=== PATIENT | female | born 1935 | race Caucasian/White ===

== ENCOUNTER 2016-06-10 09:20 | Outpatient (RCR) | payer MEDICARE ==
--- OUTSIDE RECORDS SUMMARY | 2016-04-29 15:01 | XMS REPORT | Continuity of Care Document ---
Author Author [facility] Organization [facility] Address Unknown Phone Unavailable Care Team Providers Care Book Editor Name Role Phone DESIREE HAMM MD PCP Insurance Providers Payer Name Policy Number Subscriber Name Relationship Wps Medicare [id number] Rishabh Garcia 18 Self / Same As Patient [facility] [id number] Rishabh Garcia 18 Self / Same As Patient Advance Directives Directive Response Recorded Date/Time Advance Directives No 09/09/14 9:37am Health Care Power of School Business Administrator No 09/09/14 9:37am Organ Donor No 09/09/14 9:37am Problems No known problems or medical conditions. Medications Medication Dose Route Sig Days/Qty Instructions Order Date Discontinued Date Status Terazosin HCl 5 Mg PO DAILY 12/24/10 Active Pioglitazone HCl 1 Tab PO DAILY 12/24/10 12/24/10 Discontinued Hydrochlorothiazide 25 Mg PO DAILY 12/24/10 Active Levothyroxine Sodium 100 Mcg PO DAILY 12/24/10 Active Pravastatin Sodium 20 Mg PO BEDTIME 12/24/10 10/10/13 Discontinued Glipizide (Glucotrol) 1 Each PO DAILY 12/24/10 08/31/13 Discontinued Aspirin 81 Mg PO DAILY 12/25/10 08/31/13 Discontinued Carvedilol (Coreg) 6.22 Mg PO TWICE A DAY 12/25/10 08/31/13 Discontinued Losartan Potassium 100 Mg PO DAILY 12/25/10 09/09/14 Discontinued Insulin Glargine 30 Units SQ BEDTIME 12/25/10 08/31/13 Discontinued Hum Insulin Nph/Reg Insulin Hm 20 Units SQ DAILY For daily 08/31/13 Active Carvedilol (Coreg) 25 Mg PO TWICE A DAY 08/31/13 Active Insulin Glargine 20 Units SQ BEDTIME 08/31/13 Active Acetaminophen/Hydrocodone Bitart 1-2 Tab PO EVERY 4HRS PRN PAIN 30 Qty 09/18/13 Active Pravastatin Sodium 20 Mg PO BEDTIME 10/10/13 Active Social History Social History Problem Response Recorded Date/Time Recent Foreign Travel N [place] 08/14/2014 9:28am Hospital Discharge Instructions No hospital discharge instructions. Plan of Care No plan of care. Functional Status No functional status results. Allergies, Adverse Reactions, Alerts Allergen Type Severity Reaction Status Last Updated No Known Drug Allergies Active 12/24/10 Immunizations Name Given Type Date of Pneumonia Vaccine 09/09/09 Historical Date of Influenza Vaccine 04/24/13 Historical Vital Signs No known vital signs results. Results Laboratory Results Test Name Result Units Flags Reference Collection Date/Time Result Date/ Time Comments White Blood Count 4.6 10^3/uL 4.3-11.0 08/14/2014 9:45am 08/14/2014 10: 03am Red Blood Count 3.27 10^6/uL L 4.35-5.85 08/14/2014 9:45am 08/14/2014 10: 03am Hemoglobin 10.1 G/DL L 11.5-16.0 08/14/2014 9:45am 08/14/2014 10:03am Hematocrit 32 % L 35-52 08/14/2014 9:45am 08/14/2014 10:03am Mean Corpuscular Volume 98 FL 80-99 08/14/2014 9:45am 08/14/2014 10: 03am Mean Corpuscular Hemoglobin 31 PG 25-34 08/14/2014 9:45am 08/14/2014 10 :03am Mean Corpuscular Hemoglobin Concent 32 G/DL 32-36 08/14/2014 9:45am 10:03am Red Cell Distribution Width 13.5 % 10.0-14.5 08/14/2014 9:45am 2014 10:03am Platelet Count 197 10^3/uL 130-400 08/14/2014 9:4508/14/2014 10: 03am Mean Platelet Volume 9.2 FL 7.4-10.4 08/14/2014 9:4508/14/2014 10: 03am Neutrophils (%) (Auto) 44 % 42-75 08/14/2014 9:4508/14/2014 10:03am Lymphocytes (%) (Auto) 39 % 12-44 08/14/2014 9:45am 08/14/2014 10:03am Monocytes (%) (Auto) 12 % 0-12 08/14/2014 9:4508/14/2014 10:03am Eosinophils (%) (Auto) 5 % 0-10 08/14/2014 9:4508/14/2014 10:03am Basophils (%) (Auto) 0 % 0-10 08/14/2014 9:4508/14/2014 10:03am Neutrophils # (Auto) 2.0 X 10^3 1.8-7.8 08/14/2014 9:4508/14/2014 10 :03am Lymphocytes # (Auto) 1.8 X 10^3 1.0-4.0 08/14/2014 9:4508/14/2014 10 :03am Monocytes # (Auto) 0.6 X 10^3 0.0-1.0 08/14/2014 9:4508/14/2014 10: 03am Eosinophils # (Auto) 0.2 10^3/uL 0.0-0.3 08/14/2014 9:4508/14/2014 10:03am Basophils # (Auto) 0.0 10^3/uL 0.0-0.1 08/14/2014 9:4508/14/2014 10: 03am Sodium Level 134 MMOL/L L 135-145 08/14/2014 9:4508/14/2014 10:31am Potassium Level 4.0 MMOL/L 3.6-5.0 08/14/2014 9:4508/14/2014 10: 31am Chloride Level 104 MMOL/L 98-107 08/14/2014 9:4508/14/2014 10:31am Carbon Dioxide Level 23 MMOL/L 21-32 08/14/2014 9:4508/14/2014 10: 31am Blood Urea Nitrogen 20 MG/DL H 7-18 08/14/2014 9:45am 08/14/2014 10:31am Creatinine 0.92 MG/DL 0.60-1.30 08/14/2014 9:45am 08/14/2014 10:31am BUN/Creatinine Ratio 22 08/14/2014 9:45am 08/14/2014 10:31am Estimat Glomerular Filtration Rate 59 08/14/2014 9:45am 08/14/2014 10:31am GFR INTERPRETIVE DATA UNITS FOR ESTIMATED GFR (eGFR): mL/min/1.73 M2 REFERENCE RANGE FOR ESTIMATED GFR (eGFR) eGFR NORMAL eGFR >60 MODERATELY DECREASED eGFR 30-59 SEVERLY DECREASED eGFR 15-29 KIDNEY FAILURE <15 (OR DIALYSIS) Glucose Level 290 MG/DL H 70-105 08/14/2014 9:45am 08/14/2014 10:31am Calcium Level 9.5 MG/DL 8.5-10.1 08/14/2014 9:45am 08/14/2014 10:31am Total Bilirubin 0.6 MG/DL 0.1-1.0 08/14/2014 9:45am 08/14/2014 10:31am Alkaline Phosphatase 73 U/L 40-136 08/14/2014 9:45am 08/14/2014 10: 31am Aspartate Amino Transf (AST/SGOT) 33 U/L 5-34 08/14/2014 9:45am 2014 10:31am Alanine Aminotransferase (ALT/SGPT) 17 U/L 0-55 08/14/2014 9:45am 08/14 10:31am Total Protein 6.6 G/DL 6.4-8.2 08/14/2014 9:45am 08/14/2014 10:31am Albumin 3.6 G/DL 3.2-4.5 08/14/2014 9:45am 08/14/2014 10:31am Procedures No known history of procedures. Encounters Encounter Location Date/Time Discharged Recurring Via [facility] 09/24/14 9:54am
[2016-04-29 15:24] LABS: BASOPHILS % (AUTO) 0 % (0-10); EOSINOPHILS # (AUTO) 0.1 10^3/uL (0.0-0.3); EOSINOPHILS % (AUTO) 2 % (0-10); LYMPHOCYTES # (AUTO) 2.2 X 10^3 (1.0-4.0); LYMPHOCYTES % (AUTO) 34 % (12-44); MEAN CORPUSCULAR HEMOGLOBIN 29 PG (25-34); MEAN CORPUSCULAR HGB CONC 33 G/DL (32-36); MEAN CORPUSCULAR VOLUME 89 FL (80-99); MEAN PLATELET VOLUME 10.3 FL (7.4-10.4); MONOCYTES # (AUTO) 0.6 X 10^3 (0.0-1.0); MONOCYTES % (AUTO) 10 % (0-12); NEUTROPHILS # (AUTO) 3.5 X 10^3 (1.8-7.8); NEUTROPHILS % (AUTO) 54 % (42-75); PLATELET COUNT 195 10^3/uL (130-400); RED BLOOD COUNT 3.84 10^6/uL (4.35-5.85); RED CELL DISTRIBUTION WIDTH 13.7 % (10.0-14.5); WHITE BLOOD COUNT 6.4 10^3/uL (4.3-11.0)
[2016-04-29 15:58] LABS: ALBUMIN 3.9 G/DL (3.2-4.5); BILIRUBIN,TOTAL 0.6 MG/DL (0.1-1.0); CALCIUM 9.1 MG/DL (8.5-10.1); CREATININE SERUM 1.04 MG/DL (0.60-1.30); POTASSIUM 4.2 MMOL/L (3.6-5.0); TOTAL PROTEIN 6.5 G/DL (6.4-8.2)
[~2016-06-10 09:20] MED LIST: ACTOS15 MG PO; ASP81CT PO; ASPI-586 PO; CAPT100T2 PO; CARV25TA PO; CARV6.252 PO; DOCU100T7 PO; FERR-84 PO; GLIP10TA13 PO; HCT25T PO; HUM100VI SQ; HYDR-3714 PO; INSU100C4 SQ; INSU100V6 SQ; LEVO125T6 PO; LOSA100T16 PO; LOSA100T28 PO; LVT.1T PO; METF-380 PO; MTP100TCR PO; PRAV40TA PO; PRV20T PO; TERA5CAP10 PO
[2016-11-03] MEDS ORDERED: TRAM50TA2 PO (09:18)
== END 2016-07-28 | disposition home or self-care (01) ==
LOC: ONC 09:20
PROVIDERS: ATTEND Internal Medicine Hematology & Oncology
DX: C18.2 Malignant neoplasm of ascending colon (principal); E11.22 Type 2 diabetes mellitus with diabetic chronic kidney disease; N18.3 Chronic kidney disease, stage 3 (moderate); E03.9 Hypothyroidism, unspecified; Z92.21 Personal history of antineoplastic chemotherapy; Z79.4 Long term (current) use of insulin; Z79.899 Other long term (current) drug therapy; Z45.2 Encounter for adjustment and management of vascular access device
CPT/HCPCS: 36591; 80053; 82378; 85025; 96523; 99213

== ENCOUNTER 2016-10-21 09:39 | Outpatient (RCR) | payer MEDICARE ==
--- OUTSIDE RECORDS SUMMARY | 2016-07-29 11:08 | XMS REPORT | Continuity of Care Document ---
Author Author [facility] Organization [facility] Address Unknown Phone Unavailable Care Team Providers Care Food And Nutrition Professor Name Role Phone DESIREE HAMM MD PCP Insurance Providers Payer Name Policy Number Subscriber Name Relationship Wps Medicare [id number] Rishabh Garcia 18 Self / Same As Patient [facility] [id number] Rishabh Garcia 18 Self / Same As Patient Advance Directives Directive Response Recorded Date/Time Advance Directives No 09/09/14 9:37am Health Care Power of Child Development Consultant No 09/09/14 9:37am Organ Donor No 09/09/14 [...] Encounters Encounter Location Date/Time Discharged Recurring Via [facility] 09/24/14 9:54am
[2016-07-29 11:31] LABS: BASOPHILS % (AUTO) 0 % (0-10); EOSINOPHILS # (AUTO) 0.2 10^3/uL (0.0-0.3); EOSINOPHILS % (AUTO) 3 % (0-10); LYMPHOCYTES # (AUTO) 2.1 X 10^3 (1.0-4.0); LYMPHOCYTES % (AUTO) 46 % (12-44); MEAN CORPUSCULAR HEMOGLOBIN 29 PG (25-34); MEAN CORPUSCULAR HGB CONC 33 G/DL (32-36); MEAN CORPUSCULAR VOLUME 90 FL (80-99); MEAN PLATELET VOLUME 10.3 FL (7.4-10.4); MONOCYTES # (AUTO) 0.5 X 10^3 (0.0-1.0); MONOCYTES % (AUTO) 10 % (0-12); NEUTROPHILS # (AUTO) 1.9 X 10^3 (1.8-7.8); NEUTROPHILS % (AUTO) 41 % (42-75); PLATELET COUNT 176 10^3/uL (130-400); RED BLOOD COUNT 3.81 10^6/uL (4.35-5.85); RED CELL DISTRIBUTION WIDTH 14.1 % (10.0-14.5); WHITE BLOOD COUNT 4.7 10^3/uL (4.3-11.0)
[2016-07-29 11:59] LABS: ALBUMIN 3.8 G/DL (3.2-4.5); BILIRUBIN,TOTAL 0.5 MG/DL (0.1-1.0); CREATININE SERUM 0.92 MG/DL (0.60-1.30); TOTAL PROTEIN 6.5 G/DL (6.4-8.2)
[2016-07-29 12:37] LABS: BILIRUBIN,URINE NEGATIVE (NEGATIVE); KETONES,URINE NEGATIVE (NEGATIVE); LEUKOCYTE ESTERASE ,URINE 1+ (NEGATIVE); NITRITE,URINE NEGATIVE (NEGATIVE); PH,URINE 5 (5-9); PROTEIN,URINE 1+ (NEGATIVE); UROBILINOGEN,URINE NORMAL (NORMAL)
[2016-07-29 13:00] LABS: HYALINE CASTS, URINE 0-2 /LPF
[2016-07-30 06:58] LABS: HOMOCYSTEINE 16.1 umol/L (<=10.3)
[2016-08-01 13:38] LABS: METHYLMALONIC ACID 0.23 umol/L (0.00-0.40)
[2016-10-21 10:04] LABS: BASOPHILS % (AUTO) 0 % (0-10); EOSINOPHILS # (AUTO) 0.2 10^3/uL (0.0-0.3); EOSINOPHILS % (AUTO) 4 % (0-10); LYMPHOCYTES % (AUTO) 40 % (12-44); MEAN CORPUSCULAR HEMOGLOBIN 29 PG (25-34); MEAN CORPUSCULAR HGB CONC 32 G/DL (32-36); MEAN CORPUSCULAR VOLUME 90 FL (80-99); MEAN PLATELET VOLUME 10.6 FL (7.4-10.4); MONOCYTES # (AUTO) 0.6 X 10^3 (0.0-1.0); MONOCYTES % (AUTO) 12 % (0-12); NEUTROPHILS # (AUTO) 2.2 X 10^3 (1.8-7.8); NEUTROPHILS % (AUTO) 44 % (42-75); PLATELET COUNT 176 10^3/uL (130-400); RED BLOOD COUNT 4.09 10^6/uL (4.35-5.85)
[2016-10-21 11:13] LABS: ALBUMIN 3.6 G/DL (3.2-4.5); BILIRUBIN,TOTAL 0.5 MG/DL (0.1-1.0); CALCIUM 8.7 MG/DL (8.5-10.1); CREATININE SERUM 1.25 MG/DL (0.60-1.30); POTASSIUM 4.1 MMOL/L (3.6-5.0); TOTAL PROTEIN 6.4 G/DL (6.4-8.2)
[2016-10-27] MEDS ORDERED: INSU100I10 SQ (11:49)
[2016-11-03] MEDS ORDERED: TRAM50TA2 PO (09:18)
== END 2016-10-27 | disposition home or self-care (01) ==
LOC: ONC 09:39
PROVIDERS: ATTEND Internal Medicine Hematology & Oncology
DX: C18.2 Malignant neoplasm of ascending colon (principal); E11.22 Type 2 diabetes mellitus with diabetic chronic kidney disease; N18.3 Chronic kidney disease, stage 3 (moderate); E03.9 Hypothyroidism, unspecified; R82.99 Other abnormal findings in urine; Z92.21 Personal history of antineoplastic chemotherapy; Z79.4 Long term (current) use of insulin; Z79.899 Other long term (current) drug therapy; Z45.2 Encounter for adjustment and management of vascular access device
CPT/HCPCS: 36591; 80053; 81000; 82378; 82728; 83090; 83921; 85025; 87088; 96523; 99213

== ENCOUNTER 2016-10-27 05:33 | Outpatient (CLI) | payer MEDICARE ==
[~2016-10-27] VITALS: Ht 149.9 cm; Wt 94.3 kg
[2016-10-27] MEDS ORDERED: INSU100I10 SQ (11:49)
== END 2016-10-27 11:55 ==
LOC: PREOP 05:33
PROVIDERS: ATTEND Surgery
DX: Z01.818 Encounter for other preprocedural examination (principal); C18.2 Malignant neoplasm of ascending colon

== ENCOUNTER → 2016-10-29 | Outpatient (CLI) | payer MEDICARE ==
[~2016-10-29] MED LIST changes: +INSU100I10 SQ; +TRAM50TA2 PO
--- NOTE | 2016-11-01 11:28 | Diagnostic Imaging Report ---
EXAMINATION: Bilateral screening mammogram with a Computer Aided Detection (CAD) system. INDICATION: Screening. PERSONAL HISTORY: No current complaints stated on the questionnaire. COMPARISON: 10/31/2015. FINDINGS: The breasts are composed of heterogeneously dense parenchyma which may decrease mammographic sensitivity. There is no mass, architectural distortion, or suspicious cluster of calcifications. There is a 6 mm asymmetry seen in the lateral aspect on the right CC projection with no definitive correlate on the right MLO view. The left breast appears unchanged. IMPRESSION: Focal compression views and ultrasound evaluation for a lateral right breast asymmetry would be recommended. ACR BI-RADS Category 0: Incomplete. (Needs additional imaging evaluation). Result letter will be mailed to the patient. Note: At least 10% of breast cancer is not imaged by mammography. Dictated by: Dictated on workstation # [id number]
== END ==
LOC: RAD 13:30
PROVIDERS: ATTEND Nurse Practitioner Family
DX: Z12.31 Encounter for screening mammogram for malignant neoplasm of breast (principal)
CPT/HCPCS: 77067

== ENCOUNTER 2016-11-03 05:56 | Day surgery (SDC) | payer MEDICARE ==
[~2016-11-03] VITALS: Ht 149.9 cm; Wt 94.3 kg
[~2016-11-03 05:56] MED LIST changes: -TRAM50TA2 PO
[2016-11-03] MEDS ORDERED: LACTATED RINGERS 1,000 ML IV PRN (06:10)
[2016-11-03 06:15] VITALS: BP 183/70
[2016-11-03] MEDS ORDERED: PROPOFOL INJECTION 50 ML IV ONE (06:47)
[2016-11-03] MEDS ORDERED: fentaNYL INJECTION 100 MCG/2 ML AMP ONE (06:48)
[2016-11-03] MEDS ORDERED: BUP/EPI 0.25% 1:200,000 (MARCAINE) 30 ML VIAL ONE (06:59)
[2016-11-03] MEDS ORDERED: ceFAZolin 2 GM/50 ML NS 50 ML IV ONE (07:00)
[2016-11-03] MEDS ORDERED: ceFAZolin 2 GM/NS 50 ML IV ONE (07:15)
--- NOTE | 2016-11-03 08:30 | Progress Note-Pre Operative ---
Pre-Operative Progress Note H&P Reviewed The H&P was reviewed, patient examined and no changes noted. Date H&P Reviewed: Nov 03, 2016 Time H&P Reviewed: 08:30 Pre-Operative Diagnosis: Treated colon LOUIS Black MD Nov 03, 2016 8:30 am
--- NOTE | 2016-11-03 09:17 | Progress Note-Post Operative ---
Post-Operative Progess Note Surgeon (s)/Stoner Out (s) Surgeon LOUIS SEPULVEDA MD Stoner Out: Jackie Davidson Pre-Operative Diagnosis Treated colon cance Post-Operative Diagnosis Same Post-Op Procedure Note Date of Procedure: Nov 03, 2016 Name of Procedure Performed: Removal of infusaport Description of the Procedure: See op note Findings of the Procedure Routine post-op changes Anesthesia Type MAC/Local Estimated blood loss (mL): Minimal Specimen(s) collected/removed None LOUIS SEPULVEDA MD Nov 03, 2016 9:17 am
[2016-11-03] MEDS ORDERED: TRAM50TA2 PO (09:18)
--- NOTE | 2016-11-03 09:19 | Discharge Inst-Simple/Standard ---
Discharge Inst-Standard Discharge Medications New, Converted or Re-Newed RX: RX on Chart Patient Instructions/Follow Up Plan of Care/Instructions/FU: Dressing off in 48 hours Activity as Tolerated: Yes Discharge Diet: ADA Diet LOUIS SEPULVEDA MD Nov 03, 2016 9:19 am
[2016-11-03 09:40] VITALS: BP 131/61
[2016-11-03 10:10] VITALS: BP 148/64
--- NOTE | 2016-11-03 13:15 | PROCEDURE REPORT ---
PROCEDURE PHYSICIAN: LOUIS SEPULVEDA DATE OF PROCEDURE: 11/03/2016 PREOPERATIVE DIAGNOSIS: Treated colon cancer. POSTOPERATIVE DIAGNOSIS: Treated colon cancer. OPERATION: Removal of Gvchje-t-Vfyn. SURGEON: Bright ANESTHESIA: General anesthesia. BLOOD LOSS: Minimal. FLUIDS: 300 mL crystalloids. TYPE OF WOUND: Type I (clean wound). INDICATION FOR THE PROCEDURE: This lady has completed adjuvant therapy after an adequate discussion with her oncologist, she requested removal of Xyhkgb-p-Ysnc. I agreed to do so. Informed consent was obtained after reviewing the procedure in detail. DESCRIPTION OF PROCEDURE: She was placed supine on the operative table and our DIRECT MAIL MARKETER administered sedation, monitoring her vital signs. A gram of Ancef was administered intravenously as prophylaxis against wound infection. Right infraclavicular fossa was prepared and draped in the usual sterile manner. Local anesthesia was achieved using quarter percent Marcaine with epinephrine. A secondary incision was made along the previous scar and the Bpwmwf-g-Wqht removed without risking air embolism. The incision was then closed using 3-0 Vicryl for the subcutaneous tissue and 4-0 Vicryl for skin, in a subcuticular fashion. She tolerated the procedure well and was taken to the nursing area in a stable condition. [place], sponges, and instruments the end of the operation. Job ID: [id number] Dictated Date: 11/03/2016 09:29:10 Drilling Manager Date: 11/03/2016 13:12:12 / edi FRAZIER
== END 2016-11-03 10:59 | disposition home or self-care (01) ==
LOC: SDC 05:56
PROVIDERS: ATTEND Surgery
DX: C18.2 Malignant neoplasm of ascending colon (principal); E11.9 Type 2 diabetes mellitus without complications; Z11.2 Encounter for screening for other bacterial diseases
CPT/HCPCS: 82962; 87081

== ENCOUNTER → 2016-11-29 | Outpatient (CLI) | payer MEDICARE ==
[~2016-11-29] MED LIST changes: +TRAM50TA2 PO
--- NOTE | 2016-11-29 19:31 | Diagnostic Imaging Report ---
Right breast diagnostic mammogram. INDICATION: Asymmetry along the outer aspect of the right breast. The current study was also evaluated with a Computer Aided Detection (CAD) system. FINDINGS: There is an asymmetry seen with focal compression view demonstrating persistent asymmetry in the outer aspect of the right breast although it appears slightly less prominent. There is dense background parenchyma which may result in summation artifact resulting in the asymmetry. IMPRESSION: Persistent less prominent asymmetry along the outer aspect of the right breast. Ultrasound evaluation pending. ACR BI-RADS Category 0: Incomplete. (Needs additional imaging evaluation). Result letter will be mailed to the patient. Note: At least 10% of breast cancer is not imaged by mammography. Dictated by: Dictated on workstation # [id number]
--- NOTE | 2016-11-29 20:15 | Diagnostic Imaging Report ---
EXAM: Right breast ultrasound. INDICATION: Right breast latera asymmetry. FINDINGS: There is a benign-appearing lymph node in the outer aspect of the right breast at 10 o'clock zone, 10 cm cm from the nipple measuring 0.7 cm in size. It is uncertain if this represents the asymmetry. No other lesion is identified in the outer aspect of the right breast retroareolar region. IMPRESSION: Benign-appearing intramammary lymph node at 10 o'clock zone questionably correlates with the mammographic abnormality. A 6 month followup right breast mammogram to insure stability or resolution of the asymmetry is recommended. BI-RADS 3. ACR BI-RADS Category 3: Probably benign findings. Result letter will be mailed to the patient. Note: At least 10% of breast cancer is not imaged by mammography. Dictated by: Dictated on workstation # [id number]
== END ==
LOC: RAD 09:27
PROVIDERS: ATTEND Nurse Practitioner Family
DX: R92.8 Other abnormal and inconclusive findings on diagnostic imaging of breast (principal)

== ENCOUNTER 2017-02-22 14:14 | Emergency (ER) | payer MEDICARE ==
[~2017-02-22] VITALS: Ht 149.9 cm; Wt 94.3 kg
[2017-02-22] MEDS ORDERED: ACETAMINOPHEN 500 MG TAB (TYLENOL) PO STA (14:32)
--- NOTE | 2017-02-22 14:47 | ED Lower Extremity ---
General Chief Complaint: Lower Extremity Stated Complaint: FALL,RT ANKLE AND KNEE INJ Nursing Triage Note: PT REPORTS FALLING AT HOME LAST NOC AND IS NOW C/O R KNEE AND R ANKLE PAIN. Nursing Sepsis Screen: No Definite Risk Source: patient Exam Limitations: no limitations History of Present Illness Time seen by provider: 14:30 Initial Comments Here with report of right ankle and right knee pain. Pain to the ankle is on the medial aspect of the knee is surrounding the knee. She apparently fell last night for some reason doesn't know. She did take a couple of Tylenol after which did help her pain for a little bit but the pain was worse while laying in bed. She has difficulty with standing. When she fell, she grabbed a table to try to stop her fall which also fell. She denies hitting her head. She denies other injury to her hip, back or anywhere else. Onset: yesterday Severity: moderate Pain/Injury Location: right knee, right ankle Method of Injury: fell Modifying Factors: Improves With Immobilization, Worse With Movement Allergies and Home Medications Allergies Coded Allergies: No Known Drug Allergies (Unverified , 12/24/10) Home Medications Aspirin 81 Mg Tablet.dr, 81 MG PO DAILY, (Reported) Carvedilol 25 Mg Tablet, 25 MG PO BID, (Reported) Docusate Sodium 100 Mg Tablet, 100 MG PO every other day, (Reported) Ferrous Sulfate 325 Mg Tablet, 325 MG PO DAILY, (Reported) Hum Insulin Nph/Reg Insulin Hm 10 Ml Vial, 18 UNITS SQ DAILY, (Reported) Insulin Glargine,Hum.rec.anlog 100 Unit/1 Ml Insuln.pen, 30 UNIT SQ HS, ( Reported) Levothyroxine Sodium 125 Mcg Tablet, 125 MCG PO DAILY, (Reported) Losartan Potassium 100 Mg Tablet, 100 MG PO DAILY, (Reported) Terazosin Hcl 5 Mg Capsule, 5 MG PO DAILY, (Reported) Tramadol HCl 50 Mg Tablet, 50 MG PO Q12H PRN for PAIN, #20 Prescribed by: LOUIS SEPULVEDA on 11/03/16 0918 Constitutional: see HPI, No chills, No fever Respiratory: no symptoms reported Cardiovascular: no symptoms reported Musculoskeletal: see HPI, joint pain, joint swelling, muscle pain Skin: change in color, No lesions Psychiatric/Neurological: No Symptoms Reported Past Hlirpcb-Tqnuxe-Frhifv Hx Patient Social History Alcohol Use: Denies Use Recreational Drug Use: No Smoking Status: Never a Smoker 2nd Hand Smoke Exposure: No Recent Foreign Travel: No Contact w/Someone Who Travel: No Recent Infectious Disease Expo: No Recent Hopitalizations: No Immunizations Up To Date Date of Pneumonia Vaccine: Sep 09, 2009 Date of Influenza Vaccine: Apr 24, 2013 Seasonal Allergies Seasonal Allergies: No Surgeries HX Surgeries: Yes (hernia repair, left hand, right hemicolectomy, port) Surgeries: Abdominal, Tonsillectomy Respiratory Hx Respiratory Disorders: No Cardiovascular Hx Cardiac Disorders: No Neurological Hx Neurological Disorders: No Reproductive System Hx Reproductive Disorders: No Genitourinary Hx Genitourinary Disorders: No Gastrointestinal Hx Gastrointestinal Disorders: Yes (COLON CANCER) Musculoskeletal Hx Musculoskeletal Disorders: Yes Musculoskeletal Disorders: Arthritis Endocrine Hx Endocrine Disorders: Yes Endocrine Disorders: Diabetes, Insulin dep, Hypothyroidsim HEENT HX ENT Disorders: No Cancer Cancer: Colon Psychosocial Hx Psychiatric Problems: No Integumentary HX Skin/Integumentary Disorder: No Blood Transfusions Hx Blood Disorders: No Reviewed Nursing Assessment Reviewed/Agree w Nursing PMH: Yes Family Medical History Family Medial History: Family history: Cardiovascular disease 03 FATHER 03 MOTHER Family history: Diabetes mellitus 03 MOTHER 09 SISTER Family history: Hypertension 03 FATHER 03 MOTHER Myocardial infarction 03 FATHER 03 MOTHER Stroke 09 SISTER Physical Exam Vital Signs Vital Sign - Last 12Hours 02/22/17 14:25 Temp 98.6 Pulse 72 Resp 16 B/P (MAP) 138/79 Pulse Ox 97 O2 Delivery Room Air Capillary Refill : Less Than 3 Seconds General Appearance: WD/WN, no apparent distress HEENT: PERRL/EOMI, pharynx normal Neck: full range of motion, supple Cardiovascular: regular rate, rhythm, no murmur Respiratory: lungs clear, normal breath sounds Hips: bilateral hip non-tender, bilateral hip normal inspection, bilateral hip normal range of motion Knees: right knee pain, right knee soft tissue tenderness, right knee swelling Ankles: right ankle pain (medial aspect of the ankle.), right ankle soft tissue tenderness, right ankle swelling Feet: bilateral foot non-tender, bilateral foot normal inspection, bilateral foot normal range of motion Neurologic/Tendon: normal sensation, normal motor functions, normal tendon functions Neurologic/Psychiatric: alert, oriented x 3 Skin: warm/dry, ecchymosis (mild ecchymosis to the medial aspect of the ankle on the right.) Progress/Results/Core Measures Results/Orders My Orders Orders - DIA WILLARD MD Acetaminophen Tablet (Tylenol Tablet) (02/22/17 14:32) Tramadol Tablet (Ultram Tablet) (02/22/17 14:32) Knee, Right, 3 Views (02/22/17 15:15) Ankle, Right, 3 Views (02/22/17 15:15) Sami Bandage (02/22/17 16:28) Gel Ankle Brace (02/22/17 16:28) Vital Signs/I&O Vital Sign - Last 12Hours 02/22/17 14:25 Temp 98.6 Pulse 72 Resp 16 B/P (MAP) 138/79 Pulse Ox 97 O2 Delivery Room Air Blood Pressure Mean: 98 Progress Note : Progress Note Seen and evaluated. X-ray right ankle and right knee ordered. Tylenol 500 mg by mouth and tramadol 50 mg by mouth given. Monitor patient. 1625: No acute findings. Pain a little better after meds. Discharge home with return precautions. Patient verbalize understanding instructions and agreement with plan. Diagnostic Imaging Diagonstic Imaging: Xray Plain Films/CT/US/NM/MRI: ankle Comments [facility] [place] NAME: RISHABH GARCIA [facility] REC#: [id number] PT STATUS: REG ER : 1935 PHYSICIAN: DIA WILLARD MD ADMIT DATE: 02/22/17/ER Draft Date of Exam:02/22/17 ANKLE, RIGHT, 3 VIEWS EXAMINATION: Three views of the right ankle. INDICATION: Fall. FINDINGS: There is no fracture, dislocation, or radiopaque foreign body. The ankle mortise is normal in configuration. There are calcaneal spurs seen. There is mild soft tissue swelling laterally. IMPRESSION: No fracture is seen. Dictated on workstation # [id number] Dict: 02/22/17 1553 Trans: 02/22/17 1603 [id number] Interpreted by: LY LANDA MD Electronically signed by: Diagonstic Imaging: Xray Plain Films/CT/US/NM/MRI: knee Comments [facility] [place] NAME: RISHABH GARCIA [facility] REC#: [id number] PT STATUS: REG ER : 1935 PHYSICIAN: DIA WILLARD MD ADMIT DATE: 02/22/17/ER Draft Date of Exam:02/22/17 KNEE, RIGHT, 3 VIEWS EXAMINATION: Three views of the right knee. INDICATION: Fall. FINDINGS: There is no fracture, dislocation, or radiopaque foreign body. There is spur formation in the three compartments. There is suggestion of mild joint space narrowing in the patellofemoral compartment. No suprapatellar effusion is seen. IMPRESSION: Generally mild degenerative changes, more prominent in the patellofemoral compartment. Dictated on workstation # [id number] Dict: 02/22/17 1554 Trans: 02/22/17 1604 [id number] Interpreted by: LY LANDA MD Electronically signed by: Departure Impression Impression: Primary Impression: Sprain of ankle, right Qualified Codes: S93.401A - Sprain of unspecified ligament of right ankle, initial encounter Additional Impression: Sprain of right knee Qualified Codes: S83.91XA - Sprain of unspecified site of right knee, initial encounter Disposition: HOME, SELF-CARE Condition: Improved Departure-Patient Inst. Decision time for Depature: 16:31 Referrals: DC VARGAS MD (PCP/Family) Primary Care Physician MIKO RAE DO Patient Instructions: Knee Sprain (DC), Ankle Sprain (DC) Add. Discharge Instructions: All discharge instructions reviewed with patient and/or family. Voiced understanding. Take medications as directed. You may take Tylenol 1000 mg every 6 hours as needed for pain. You may take the other meds as directed. You may use ice packs to the affected area as needed for comfort 20 minutes per hour. Use your walker at home especially over the next few days while you're having pain. You may use the Sami wrap and gel splint as needed for comfort and support. Follow up with your DrArchie in a few days for recheck. Return for worse pain, fever, vomiting, weakness, breathing problems or other concerns as needed. Scripts Tramadol HCl (Tramadol HCl) 50 Mg Tablet 50 MG PO Q6H Y for PAIN, #20 TAB 0 Refills Prov: DIA WILLARD MD 02/22/17 Copy Copies To 1: DC VARGAS MD, TIMOTHY D MD Feb 22, 2017 14:47
--- NOTE | 2017-02-22 16:04 | Diagnostic Imaging Report ---
EXAMINATION: Three views of the right ankle. INDICATION: Fall. FINDINGS: There is no fracture, dislocation, or radiopaque foreign body. The ankle mortise is normal in configuration. There are calcaneal spurs seen. There is mild soft tissue swelling laterally. IMPRESSION: No fracture is seen. Dictated by: Dictated on workstation # [id number]
--- NOTE | 2017-02-22 16:04 | Diagnostic Imaging Report ---
EXAMINATION: Three views of the right knee. INDICATION: Fall. FINDINGS: There is no fracture, dislocation, or radiopaque foreign body. There is spur formation in the three compartments. There is suggestion of mild joint space narrowing in the patellofemoral compartment. No suprapatellar effusion is seen. IMPRESSION: Generally mild degenerative changes, more prominent in the patellofemoral compartment. Dictated by: Dictated on workstation # [id number]
[2017-02-22] MEDS ORDERED: TRAM50TA2 PO (16:35)
[2017-02-22 16:45] VITALS: BP 138/79
== END 2017-02-22 16:45 | disposition home or self-care (01) ==
LOC: EDUNIT# 14:14 → ER 14:16
DX: S93.401A Sprain of unspecified ligament of right ankle, initial encounter (principal); S83.91XA Sprain of unspecified site of right knee, initial encounter; E03.9 Hypothyroidism, unspecified; E11.9 Type 2 diabetes mellitus without complications; M19.90 Unspecified osteoarthritis, unspecified site; Z82.49 Family history of ischemic heart disease and other diseases of the circulatory system; Z85.038 Personal history of other malignant neoplasm of large intestine; Z79.82 Long term (current) use of aspirin; Z79.4 Long term (current) use of insulin; Z87.19 Personal history of other diseases of the digestive system; Z90.89 Acquired absence of other organs
CPT/HCPCS: 73562; 73610; 99283

== ENCOUNTER 2017-04-21 10:21 | Outpatient (RCR) | payer MEDICARE ==
[2017-04-21 10:38] LABS: BASOPHILS % (AUTO) 0 % (0-10); EOSINOPHILS # (AUTO) 0.2 10^3/uL (0.0-0.3); EOSINOPHILS % (AUTO) 3 % (0-10); LYMPHOCYTES # (AUTO) 2.4 X 10^3 (1.0-4.0); LYMPHOCYTES % (AUTO) 45 % (12-44); MEAN CORPUSCULAR HEMOGLOBIN 30 PG (25-34); MEAN CORPUSCULAR HGB CONC 32 G/DL (32-36); MEAN CORPUSCULAR VOLUME 92 FL (80-99); MEAN PLATELET VOLUME 10.7 FL (7.4-10.4); MONOCYTES # (AUTO) 0.5 X 10^3 (0.0-1.0); MONOCYTES % (AUTO) 10 % (0-12); NEUTROPHILS # (AUTO) 2.3 X 10^3 (1.8-7.8); NEUTROPHILS % (AUTO) 42 % (42-75); PLATELET COUNT 171 10^3/uL (130-400); RED BLOOD COUNT 3.96 10^6/uL (4.35-5.85); RED CELL DISTRIBUTION WIDTH 13.4 % (10.0-14.5); WHITE BLOOD COUNT 5.4 10^3/uL (4.3-11.0)
[2017-04-21 10:59] LABS: ALBUMIN 3.7 GM/DL (3.2-4.5); BILIRUBIN,TOTAL 0.6 MG/DL (0.1-1.0); CALCIUM 8.8 MG/DL (8.5-10.1); CREATININE SERUM 0.96 MG/DL (0.60-1.30); POTASSIUM 3.5 MMOL/L (3.6-5.0); TOTAL PROTEIN 6.6 GM/DL (6.4-8.2)
== END 2017-04-23 | disposition home or self-care (01) ==
LOC: ONC 10:21
PROVIDERS: ATTEND Internal Medicine Hematology & Oncology
DX: Z79.4 Long term (current) use of insulin; D64.9 Anemia, unspecified; Z92.21 Personal history of antineoplastic chemotherapy; N18.3 Chronic kidney disease, stage 3 (moderate); R82.99 Other abnormal findings in urine; E11.22 Type 2 diabetes mellitus with diabetic chronic kidney disease; E03.9 Hypothyroidism, unspecified; C18.2 Malignant neoplasm of ascending colon; Z79.899 Other long term (current) drug therapy
CPT/HCPCS: 36415; 80053; 82378; 82728; 85025; 99213

== ENCOUNTER 2017-06-23 17:38 | Emergency (ER) | payer MEDICARE ==
[~2017-06-23] VITALS: Ht 149.9 cm; Wt 95.3 kg
[2017-06-23] MEDS ORDERED: NS IV 500 ML 500 ML IV ONE (18:14)
--- NOTE | 2017-06-23 18:18 | ED General ---
General Chief Complaint: Glucose Problems Stated Complaint: FALL Nursing Triage Note: PT BROUGHT IN BY [facility] WITH C/O HYPOGLYCEMIA. PT BLOOD GLUCOSE WAS REPORTEDLY 52 UPON EMS ARRIVAL TO SCENE. PT WAS GIVEN 25 MG D50 PER EMS EN ROUTE. UPON ARRIVAL TO ED PT IS A&O X4. SHE REPORTS SHE HAS NOT EATEN DINNER TONIGHT. Nursing Sepsis Screen: No Definite Risk Source of Information: Patient, Spouse Exam Limitations: No Limitations History of Present Illness Time Seen by Provider: 17:58 Initial Comments Patient presents ER by EMS with chief complaint that she is having a fall today just prior to arrival. Her remarks that she did not lose consciousness nor struck her head. She was feeling off balance, dizzy and not well and he checked her sugar and found it to be 50 so he gave her some orange juice and peanut butter. When EMS arrived they started a half liter saline bolus and brought her to ER. Blood sugar was 160. Patient denies any nausea, chills, chest pain, diarrhea, dysuria, constipation. She'll bowel movement yesterday. She has some mild shortness of breath and a cough recently. She says she's had 2 falls in the past 3 months. Both times were probably related to blood sugar per the . says the patient was confused at the time but able to take oral nourishment and did not have any choking or coughing. Allergies and Home Medications Allergies Coded Allergies: No Known Drug Allergies (Unverified , 12/24/10) Home Medications Aspirin 81 Mg Tablet.dr, 81 MG PO DAILY, (Reported) Carvedilol 25 Mg Tablet, 25 MG PO BID, (Reported) Docusate Sodium 100 Mg Tablet, 100 MG PO every other day, (Reported) Ferrous Sulfate 325 Mg Tablet, 325 MG PO DAILY, (Reported) Hum Insulin Nph/Reg Insulin Hm 10 Ml Vial, 18 UNITS SQ DAILY, (Reported) Insulin Glargine,Hum.rec.anlog 100 Unit/1 Ml Insuln.pen, 30 UNIT SQ HS, ( Reported) Levothyroxine Sodium 125 Mcg Tablet, 125 MCG PO DAILY, (Reported) Losartan Potassium 100 Mg Tablet, 100 MG PO DAILY, (Reported) Terazosin Hcl 5 Mg Capsule, 5 MG PO DAILY, (Reported) Tramadol HCl 50 Mg Tablet, 50 MG PO Q12H PRN for PAIN, #20 Prescribed by: LOUIS SEPULVEDA on 11/03/16 0918 Tramadol HCl 50 Mg Tablet, 50 MG PO Q6H PRN for PAIN, #20 Ref 0 Prescribed by: DIA WILLARD on 02/22/17 1635 Constitutional: No chills, No fever, No malaise EENTM: No ear discharge, No ear pain, No eye pain, No epistaxis, No nose congestion, No nose pain Respiratory: see HPI, cough, No short of breath Cardiovascular: No chest pain, No palpitations, No syncope Gastrointestinal: No abdominal pain, No constipation, No diarrhea, No nausea Genitourinary: No discharge, No dysuria, frequency Musculoskeletal: No back pain, No joint pain Skin: No pruritus, No rash Psychiatric/Neurological: Denies Headache, Denies Numbness, Denies Paresthesia Past Tliivpd-Ztxbqv-Etsfnn Hx Patient Social History Alcohol Use: Denies Use Recreational Drug Use: No Smoking Status: Never a Smoker 2nd Hand Smoke Exposure: No Recent Foreign Travel: No Contact w/Someone Who Travel: No Recent Infectious Disease Expo: No Recent Hopitalizations: No Physical Abuse: No Sexual Abuse: No Immunizations Up To Date Date of Pneumonia Vaccine: Sep 09, 2009 Date of Influenza Vaccine: Apr 24, 2013 Seasonal Allergies Seasonal Allergies: No Surgeries History of Surgeries: Yes (hernia repair, left hand, right hemicolectomy, port) Surgeries: Abdominal, Tonsillectomy Respiratory History of Respiratory Disorde: No Cardiovascular History of Cardiac Disorders: No Neurological History of Neurological Disord: No Reproductive System Hx Reproductive Disorders: No Gastrointestinal History of Gastrointestinal Di: Yes (COLON CANCER) Musculoskeletal History of Musculoskeletal Dis: Yes Musculoskeletal Disorders: Arthritis Endocrine History of Endocrine Disorders: Yes Endocrine Disorders: Diabetes, Insulin dep, Hypothyroidsim Cancer Cancer: Colon Psychosocial History of Psychiatric Problem: No Suicide Risk Score: 0 Integumentary History of Skin or Integumenta: No Blood Transfusions History of Blood Disorders: No Family Medical History Family Medial History: Family history: Cardiovascular disease 03 FATHER 03 MOTHER Family history: Diabetes mellitus 03 MOTHER 09 SISTER Family history: Hypertension 03 FATHER 03 MOTHER Myocardial infarction 03 FATHER 03 MOTHER Stroke 09 SISTER No Family History of: Abdominal aortic aneurysm Cancer Family history: Alzheimer's disease Family history: Arthritis Family history: Asthma Family history: Breast disease Family history: Gastrointestinal disease Family history: Thyroid disorder History of - anemia History of - respiratory disease Psychotic disorder Seizure disorder Physical Exam Vital Signs Vital Sign - Last 12Hours 06/23/17 17:38 Temp 96.8 Pulse 58 Resp 16 B/P (MAP) 157/83 (107) Pulse Ox 97 O2 Delivery Room Air Capillary Refill : Less Than 3 Seconds General Appearance: No Apparent Distress, WD/WN Eyes: Bilateral Eye Normal Inspection, Bilateral Eye PERRL, Bilateral Eye EOMI HEENT: PERRL/EOMI, TMs Normal, Normal ENT Inspection, Pharynx Normal Neck: Full Range of Motion, Normal Inspection Respiratory: Chest Non Tender, Lungs Clear, Normal Breath Sounds, No Accessory Muscle Use, No Respiratory Distress Cardiovascular: Regular Rate, Rhythm, No Edema Gastrointestinal: Normal Bowel Sounds, Non Tender, Soft Back: Normal Inspection, No Vertebral Tenderness Extremity: Normal Capillary Refill, Swelling (right lower extremity with compression hose 1+ edema) Neurologic/Psychiatric: Alert, Oriented x3 Skin: Normal Color, Warm/Dry Progress/Results/Core Measures Suspected Sepsis Recent Fever Within 48 Hours: No Infection Criteria Present: None New/Unexplained Altered Menta: No Sepsis Screen: No Definite Risk Sepsis Diagnosis: SIRS Temperature:96.8 Pulse: 58 Respiratory Rate: 16 Laboratory Tests 06/23/17 17:40: White Blood Count 8.0 Blood Pressure 157 /83 Mean: 107 Laboratory Tests 06/23/17 17:40: Creatinine 0.84, Platelet Count 150, Total Bilirubin 0.6 Results/Orders Lab Results Laboratory Tests Test 06/23/17 17:40 06/23/17 17:50 06/23/17 19:40 Range/Units White Blood Count 8.0 4.3-11.0 10^3/uL Red Blood Count 3.80 L 4.35-5.85 10^6/uL Hemoglobin 11.4 L 11.5-16.0 G/DL Hematocrit 35 35-52 % Mean Corpuscular Volume 92 80-99 FL Mean Corpuscular Hemoglobin 30 25-34 PG Mean Corpuscular Hemoglobin Concent 33 32-36 G/DL Red Cell Distribution Width 13.6 10.0-14.5 % Platelet Count 150 130-400 10^3/uL Mean Platelet Volume 10.8 H 7.4-10.4 FL Neutrophils (%) (Auto) 65 42-75 % Lymphocytes (%) (Auto) 25 12-44 % Monocytes (%) (Auto) 7 0-12 % Eosinophils (%) (Auto) 2 0-10 % Basophils (%) (Auto) 0 0-10 % Neutrophils # (Auto) 5.2 1.8-7.8 X 10^3 Lymphocytes # (Auto) 2.0 1.0-4.0 X 10^3 Monocytes # (Auto) 0.6 0.0-1.0 X 10^3 Eosinophils # (Auto) 0.2 0.0-0.3 10^3/uL Basophils # (Auto) 0.0 0.0-0.1 10^3/uL Sodium Level 138 135-145 MMOL/L Potassium Level 3.5 L 3.6-5.0 MMOL/L Chloride Level 107 98-107 MMOL/L Carbon Dioxide Level 25 21-32 MMOL/L Anion Gap 6 5-14 MMOL/L Blood Urea Nitrogen 17 7-18 MG/DL Creatinine 0.84 0.60-1.30 MG/DL Estimat Glomerular Filtration Rate > 60 BUN/Creatinine Ratio 20 Glucose Level 196 H 70-105 MG/DL Calcium Level 8.8 8.5-10.1 MG/DL Total Bilirubin 0.6 0.1-1.0 MG/DL Aspartate Amino Transf (AST/SGOT) 33 5-34 U/L Alanine Aminotransferase (ALT/SGPT) 19 0-55 U/L Alkaline Phosphatase 72 40-136 U/L B-Type Natriuretic Peptide 79.2 <100.0 PG/ML Total Protein 6.5 6.4-8.2 GM/DL Albumin 3.5 3.2-4.5 GM/DL Glucometer 165 H 70-110 MG/DL Urine Color YELLOW Urine Clarity CLEAR Urine pH 6 5-9 Urine Specific Roundup 1.010 L 1.016-1.022 Urine Protein 2+ H NEGATIVE Urine Glucose (UA) 3+ H NEGATIVE Urine Ketones NEGATIVE NEGATIVE Urine Nitrite NEGATIVE NEGATIVE Urine Bilirubin NEGATIVE NEGATIVE Urine Urobilinogen NORMAL NORMAL MG/DL Urine Leukocyte Esterase 1+ H NEGATIVE Urine RBC (Auto) NEGATIVE NEGATIVE Urine RBC NONE /HPF Urine WBC 0-2 /HPF Urine Squamous Epithelial Cells 2-5 /HPF Urine Crystals NONE /LPF Urine Bacteria NONE /HPF Urine Casts NONE /LPF Urine Mucus NEGATIVE /LPF Urine Culture Indicated NO My Orders Orders - CLARENCE LEAL BNP (06/23/17 18:14) Cbc With Automated Diff (06/23/17 18:14) Comprehensive Metabolic Panel (06/23/17 18:14) Ua Culture If Indicated (06/23/17 18:14) Chest Pa/Lat (2 View) (06/23/17 18:14) Saline Lock/Iv-Start (06/23/17 18:14) Ns Iv 500 Ml (Sodium Chloride 0.9%) (06/23/17 18:14) Potassium Chloride (Tablet) (Klor Con Ta (06/23/17 19:30) Vital Signs/I&O Vital Sign - Last 12Hours 06/23/17 17:38 Temp 96.8 Pulse 58 Resp 16 B/P (MAP) 157/83 (107) Pulse Ox 97 O2 Delivery Room Air Intake and Output 06/24/17 00:00 Intake Total 1000 ml Balance 1000 ml Capillary Refill : Less Than 3 Seconds Blood Pressure Mean: 107 Point of Care Testing Finger Stick Blood Glucose: 165 Blood Glucose Action Taken: DR AND RN NOTIFIED Progress Note : Time: 20:22 Progress Note They were a tablet of potassium in the ER. Do not find any evidence for infectious etiology for her labile blood sugars. She should follow up outpatient with her clinician next week. Diagnostic Imaging Diagonstic Imaging: Xray Plain Films/CT/US/NM/MRI: chest Comments VIA [facility]. [place], [place] NAME: RISHABH GARCIA [facility] REC#: [id number] PT STATUS: REG ER : 1935 PHYSICIAN: CLARENCE LEAL MD ADMIT DATE: 06/23/17/ER Draft Date of Exam:06/23/17 CHEST PA/LAT (2 VIEW) EXAM: CHEST PA/LAT (2 VIEW) INDICATION: Hypoglycemia. COMPARISON: Chest radiograph 10/12/2013. FINDINGS: Stable cardiomegaly with normal pulmonary vascularity. No focal pulmonary opacity, pleural effusion or pneumothorax. Calcified aorta. No acute osseous findings. Surgical clips in the upper abdomen. IMPRESSION: Stable cardiomegaly. No acute cardiopulmonary findings. Dictated on workstation # [id number] Dict: 06/23/17 1844 Trans: 06/23/17 [id number] Interpreted by: JASS THOMPSON MD Electronically signed by: Reviewed: Reviewed by Me Departure Impression Impression: Primary Impression: Hypoglycemia associated with diabetes Disposition: 01 HOME, SELF-CARE Condition: Stable Departure-Patient Inst. Decision time for Depature: 20:23 Referrals: DC VARGAS MD (PCP/Family) Primary Care Physician Patient Instructions: Diabetes Type 2 (DC) Add. Discharge Instructions: Plan to follow up with your primary care physician in the next couple weeks for further evaluation of your labile blood sugars. All discharge instructions reviewed with patient and/or family. Voiced understanding. Copy Copies To 1: DC VARGAS MD, TITUS J Jun 23, 2017 18:18
[2017-06-23 18:21] LABS: BASOPHILS % (AUTO) 0 % (0-10); EOSINOPHILS # (AUTO) 0.2 10^3/uL (0.0-0.3); EOSINOPHILS % (AUTO) 2 % (0-10); LYMPHOCYTES % (AUTO) 25 % (12-44); MEAN CORPUSCULAR HEMOGLOBIN 30 PG (25-34); MEAN CORPUSCULAR HGB CONC 33 G/DL (32-36); MEAN CORPUSCULAR VOLUME 92 FL (80-99); MEAN PLATELET VOLUME 10.8 FL (7.4-10.4); MONOCYTES # (AUTO) 0.6 X 10^3 (0.0-1.0); MONOCYTES % (AUTO) 7 % (0-12); NEUTROPHILS # (AUTO) 5.2 X 10^3 (1.8-7.8); NEUTROPHILS % (AUTO) 65 % (42-75); PLATELET COUNT 150 10^3/uL (130-400); RED CELL DISTRIBUTION WIDTH 13.6 % (10.0-14.5)
[2017-06-23 18:32] LABS: ALANINE AMINOTRANSFERASE 19 U/L (0-55); ALBUMIN 3.5 GM/DL (3.2-4.5); ANION GAP 6 MMOL/L (5-14); ASPARTATE AMINO TRANSFERASE 33 U/L (5-34); BILIRUBIN,TOTAL 0.6 MG/DL (0.1-1.0); BLOOD UREA NITROGEN 17 MG/DL (7-18); BUN/CREATININE RATIO 20; CALCIUM 8.8 MG/DL (8.5-10.1); CARBON DIOXIDE 25 MMOL/L (21-32); CHLORIDE 107 MMOL/L (98-107); CREATININE SERUM 0.84 MG/DL (0.60-1.30); GFR ESTIMATED > 60; GLUCOSE 196 MG/DL (70-105); POTASSIUM 3.5 MMOL/L (3.6-5.0); SODIUM 138 MMOL/L (135-145); TOTAL PROTEIN 6.5 GM/DL (6.4-8.2)
--- NOTE | 2017-06-23 18:49 | Diagnostic Imaging Report ---
EXAM: CHEST PA/LAT (2 VIEW) INDICATION: Hypoglycemia. COMPARISON: Chest radiograph 10/12/2013. FINDINGS: Stable cardiomegaly with normal pulmonary vascularity. No focal pulmonary opacity, pleural effusion or pneumothorax. Calcified aorta. No acute osseous findings. Surgical clips in the upper abdomen. IMPRESSION: Stable cardiomegaly. No acute cardiopulmonary findings. Dictated by: Dictated on workstation # [id number]
[2017-06-23] MEDS ORDERED: KCL 10 MEQ TAB (MICRO K) PO ONE (19:30)
[2017-06-23 19:49] LABS: BILIRUBIN,URINE NEGATIVE (NEGATIVE); KETONES,URINE NEGATIVE (NEGATIVE); LEUKOCYTE ESTERASE ,URINE 1+ (NEGATIVE); NITRITE,URINE NEGATIVE (NEGATIVE); PH,URINE 6 (5-9); PROTEIN,URINE 2+ (NEGATIVE); UROBILINOGEN,URINE NORMAL (NORMAL)
[2017-06-23 20:16] LABS: WBC,URINE 0-2 /HPF
[2017-06-23 20:33] VITALS: BP 157/83
== END 2017-06-23 20:33 | disposition home or self-care (01) ==
LOC: ER 17:38 → EDUNIT# 17:38 → ER 20:33
DX: E11.649 Type 2 diabetes mellitus with hypoglycemia without coma (principal); M19.90 Unspecified osteoarthritis, unspecified site; E03.9 Hypothyroidism, unspecified; Z79.82 Long term (current) use of aspirin; Z79.4 Long term (current) use of insulin; Z90.89 Acquired absence of other organs; Z87.19 Personal history of other diseases of the digestive system; Z85.038 Personal history of other malignant neoplasm of large intestine; Z82.49 Family history of ischemic heart disease and other diseases of the circulatory system
CPT/HCPCS: 36415; 71020; 80053; 81000; 82962; 83880; 85025

== ENCOUNTER → 2017-09-15 | Outpatient (CLI) | payer MEDICARE ==
--- NOTE | 2017-09-15 12:20 | Diagnostic Imaging Report ---
PROCEDURE: US left lower extremity venous. TECHNIQUE: Multiple real-time grayscale images were obtained over the left lower extremity in various projections. Additional duplex Doppler and color Doppler images were also obtained. INDICATION: Left calf pain. FINDINGS: The left common femoral, superficial femoral and popliteal veins demonstrate normal response to compression, augmentation, and Valsalva. There are no abnormal left lower extremity fluid collections or masses. IMPRESSION: No evidence of deep venous thrombosis in the left lower extremity. Dictated by: Dictated on workstation # [id number]
== END ==
LOC: RAD 11:09
PROVIDERS: ATTEND Nurse Practitioner Family
DX: M79.662 Pain in left lower leg (principal)

== ENCOUNTER 2017-11-09 09:52 | Outpatient (RCR) | payer MEDICARE ==
[2017-10-06 10:03] LABS: BASOPHILS % (AUTO) 0 % (0-10); EOSINOPHILS # (AUTO) 0.2 10^3/uL (0.0-0.3); EOSINOPHILS % (AUTO) 3 % (0-10); HEMATOCRIT 36 % (35-52); LYMPHOCYTES # (AUTO) 2.3 X 10^3 (1.0-4.0); LYMPHOCYTES % (AUTO) 38 % (12-44); MEAN CORPUSCULAR HEMOGLOBIN 30 PG (25-34); MEAN CORPUSCULAR HGB CONC 33 G/DL (32-36); MEAN CORPUSCULAR VOLUME 91 FL (80-99); MEAN PLATELET VOLUME 10.8 FL (7.4-10.4); MONOCYTES # (AUTO) 0.7 X 10^3 (0.0-1.0); MONOCYTES % (AUTO) 11 % (0-12); NEUTROPHILS # (AUTO) 2.9 X 10^3 (1.8-7.8); NEUTROPHILS % (AUTO) 48 % (42-75); PLATELET COUNT 168 10^3/uL (130-400); RED CELL DISTRIBUTION WIDTH 13.8 % (10.0-14.5)
[2017-10-06 10:23] LABS: ALBUMIN 3.8 GM/DL (3.2-4.5); BILIRUBIN,TOTAL 0.5 MG/DL (0.1-1.0); CALCIUM 9.1 MG/DL (8.5-10.1); CREATININE SERUM 1.01 MG/DL (0.60-1.30); POTASSIUM 4.2 MMOL/L (3.6-5.0); TOTAL PROTEIN 6.7 GM/DL (6.4-8.2)
== END 2018-01-04 | disposition home or self-care (01) ==
LOC: ONC 09:52
PROVIDERS: ATTEND Internal Medicine Hematology & Oncology
DX: C18.2 Malignant neoplasm of ascending colon (principal); D64.9 Anemia, unspecified; E11.22 Type 2 diabetes mellitus with diabetic chronic kidney disease; N18.3 Chronic kidney disease, stage 3 (moderate); E03.9 Hypothyroidism, unspecified; R82.99 Other abnormal findings in urine; Z92.21 Personal history of antineoplastic chemotherapy; Z79.4 Long term (current) use of insulin; Z79.899 Other long term (current) drug therapy
CPT/HCPCS: 36415; 80053; 82378; 82728; 85025; 99213

== ENCOUNTER → 2017-11-29 | Outpatient (CLI) | payer MEDICARE ==
--- NOTE | 2017-11-29 16:14 | Diagnostic Imaging Report ---
EXAMINATION: Lumbar spine. INDICATION: Low back pain and left leg pain. AP, lateral, and spot lateral views are obtained. There are no prior plain film examinations available for comparison. FINDINGS: The spot lateral view reveals severe degenerative disc and bony disease at L4-5. There is near-complete obliteration of the disc space at this level, and there is approximately 6 mm of anterior translation of L4 with respect to L5. In addition, there is a prominent bridging osteophyte on the right at the L4-5 level. There is also moderate narrowing of the disc spaces at L5-S1 and L3-4. The other intervertebral spaces are well maintained, although there is also a prominent bridging osteophyte on the right at L2-3. There is no fracture or acute bony abnormality appreciated. There is no sign of a paraspinal mass. There is mild symmetrical sclerosis of the sacroiliac joints. IMPRESSION: 1. There is no evidence for an acute bony abnormality. 2. There is severe degenerative disc and bony disease at the L4-5 level. If there is clinical concern regarding spinal stenosis or nerve root encroachment, then MRI would be recommended for further evaluation. Dictated by: Dictated on workstation # [id number]
== END ==
LOC: RAD 14:59
PROVIDERS: ATTEND Nurse Practitioner Family
DX: M51.36 Other intervertebral disc degeneration, lumbar region (principal); M79.605 Pain in left leg
CPT/HCPCS: 72100

== ENCOUNTER → 2018-01-03 | Outpatient (CLI) | payer MEDICARE ==
--- NOTE | 2018-01-03 15:58 | Diagnostic Imaging Report ---
PROCEDURE: MRI lumbar spine. TECHNIQUE: Multiplanar, multisequence MRI of the lumbar spine was performed without contrast. INDICATION: Back pain, fall one year ago. COMPARISON: I have no previous for direct comparison. Study, however, correlated with plain films performed 11/29/2017. FINDINGS: Mild grade 1 anterolisthesis of L4 on L5 is unchanged when correlated with previous plain film. Lumbar body statures are within normal limits. The remaining levels are aligned anatomically. There are Modic type degenerative changes across the L4-L5 articular endplates. Marrow signal intensity is otherwise normal. The conus appears normal, and there is no intrathecal abnormality. No paravertebral mass, hemorrhage, or fluid collection. T12-L1: This level and disc are normal. L1-L2: There is disc desiccation and loss of disc stature, disc bulge, and endplate osteophytes. Findings result in a minimal degree of thecal sac encroachment with no significant foraminal or recess narrowing. L2-L3: There is mild diffuse disc bulging at this level resulting in a mild degree of right and minimal left neural foraminal narrowing. The spinal canal and lateral recess are patent. L3-L4: There is disc desiccation and loss of disc stature, ligamenta flava thickening, and hypertrophy of the facets. The constellation of findings moderately stenoses the thecal sac and results in [id number] left and mild right foraminal narrowing. L4-L5: Marked disc desiccation, disc bulge, endplate osteophytes, and thickened buckled ligamenta flava are present resulting in a severe degree of central canal stenosis with narrowing of the left greater than right lateral recesses also of at least moderate severity. There is moderate left and severe right neural foraminal stenosis. L5-S1: Buckled thickened ligamenta flava and facet arthrosis narrow the thecal sac in its transverse dimension. Disc bulge and endplate osteophytes result in moderate right and [id number] left foraminal narrowing. IMPRESSION: 1. Stable grade 1 anterolisthesis of L4 on L5. Multilevel stenosis and degenerative changes are most profound at the L4-L5 level with extensive involvement of the central canal, neural foramina, and lateral recesses as described. 2. Additional less severe stenoses listed level by level above. Dictated by: Dictated on workstation # [id number]
== END ==
LOC: RAD 13:58
PROVIDERS: ATTEND Nurse Practitioner Family
DX: M99.73 Connective tissue and disc stenosis of intervertebral foramina of lumbar region (principal); M51.27 Other intervertebral disc displacement, lumbosacral region; M43.16 Spondylolisthesis, lumbar region
CPT/HCPCS: 72148

== ENCOUNTER 2018-04-06 10:34 | Outpatient (RCR) | payer MEDICARE ==
[~2018-04-06 10:34] MED LIST changes: -LOSA100T28 PO; +LOSA100T8 PO
[2018-04-06 10:41] LABS: BASOPHILS % (AUTO) 0 % (0-10); EOSINOPHILS # (AUTO) 0.1 10^3/uL (0.0-0.3); EOSINOPHILS % (AUTO) 1 % (0-10); HEMATOCRIT 38 % (35-52); HEMOGLOBIN 12.3 G/DL (11.5-16.0); LYMPHOCYTES # (AUTO) 1.7 X 10^3 (1.0-4.0); LYMPHOCYTES % (AUTO) 17 % (12-44); MEAN CORPUSCULAR HEMOGLOBIN 30 PG (25-34); MEAN CORPUSCULAR HGB CONC 33 G/DL (32-36); MEAN CORPUSCULAR VOLUME 91 FL (80-99); MEAN PLATELET VOLUME 10.7 FL (7.4-10.4); MONOCYTES # (AUTO) 0.8 X 10^3 (0.0-1.0); MONOCYTES % (AUTO) 8 % (0-12); NEUTROPHILS # (AUTO) 7.5 X 10^3 (1.8-7.8); NEUTROPHILS % (AUTO) 74 % (42-75); PLATELET COUNT 186 10^3/uL (130-400); RED BLOOD COUNT 4.13 10^6/uL (4.35-5.85); WHITE BLOOD COUNT 10.1 10^3/uL (4.3-11.0)
[2018-04-06 11:00] LABS: ALBUMIN 3.8 GM/DL (3.2-4.5); BILIRUBIN,TOTAL 0.8 MG/DL (0.1-1.0); CALCIUM 9.1 MG/DL (8.5-10.1); CREATININE SERUM 1.1 MG/DL (0.60-1.30); POTASSIUM 4.7 MMOL/L (3.6-5.0); TOTAL PROTEIN 6.4 GM/DL (6.4-8.2)
== END 2018-04-23 | disposition home or self-care (01) ==
LOC: ONC 10:34
PROVIDERS: ATTEND Internal Medicine Hematology & Oncology
DX: C18.2 Malignant neoplasm of ascending colon (principal); D64.9 Anemia, unspecified; E11.22 Type 2 diabetes mellitus with diabetic chronic kidney disease; N18.3 Chronic kidney disease, stage 3 (moderate); E03.9 Hypothyroidism, unspecified; R82.99 Other abnormal findings in urine; Z92.21 Personal history of antineoplastic chemotherapy; Z79.4 Long term (current) use of insulin; Z79.899 Other long term (current) drug therapy
CPT/HCPCS: 36415; 80053; 82378; 85025; 99213

== ENCOUNTER 2018-06-17 10:10 | Emergency (ER) | payer MEDICARE ==
[~2018-06-17] VITALS: Ht 149.9 cm; Wt 90.7 kg
--- OUTSIDE RECORDS SUMMARY | 2018-06-17 10:19 | XMS REPORT | CCD ---
Author Author Jennifer [facility] Organization [facility] Address [address] [place] [address] Phone Care Team Providers Care Jewel Sawyer Name Role Phone PP Unavailable CCM Unavailable Summary Purpose Interface Exchange Insurance Providers Payer name Policy type / Coverage type Covered democrat ID Effective Begin Date Effective End Date [facility] Commercial Insurance [id number] Unknown Family history Runs in the family Diagnosis Age At Onset Hypertension Unknown Social History Social History Element Codes Description Effective Dates Marital status Unknown [place] 05/19/2017 Number of children Unknown 3 01/02/2015 Employment Unknown Retired [employer] 01/02/2015 Allergies, Adverse Reactions, Alerts Substance Reaction Codes Entered Date Inactivated Date Status * NO KNOWN FOOD ALLERGIES Unknown 01/30/2015 No Inactive Date Active * NO KNOWN DRUG ALLERGIES Unknown 01/30/2015 No Inactive Date Active Past Medical History Illness Codes Condition Status Onset Date Resolved Date Type 2 diabetes mellitus with hyperglycemia ICD-9: 250.00 ICD-10: E11.65 Active 07/14/2016 Unknown Type 2 diabetes mellitus with hyperglycemia ICD-9: 250.02 ICD-10: E11.65 Active 05/22/2018 Unknown Essential (primary) hypertension ICD-9: 401.9 ICD-10: I10 Active 01/01/2015 Unknown Hypothyroidism, unspecified ICD-9: 244.9 ICD-10: E03.9 Active 08/19/2016 Unknown Spinal stenosis, lumbar region without neurogenic claudication ICD-9: 724.02 ICD-10: M48.061 Active 01/12/2018 Unknown Vitamin B12 deficiency anemia due to intrinsic factor deficiency ICD-9: 281.0 ICD-10: D51.0 Active 07/28/2016 Unknown Low back pain ICD-9: 724.2 ICD-10: M54.5 Active 11/25/2017 Unknown Varicose veins of bilateral lower extremities with pain ICD-9: 454.8 ICD-10: I83.813 Active 11/25/2017 Unknown Localized edema ICD-9 : 782.3 ICD-10: R60.0 Active 09/15/2017 Unknown Chronic kidney disease, stage 3 (moderate) ICD-9: 585.3 ICD-10: N18.3 Active 06/02/2016 Unknown Acute upper respiratory infection, unspecified ICD-9: 465.9 ICD-10: J06.9 Active 11/16/2016 Unknown Cough ICD-9: 786.2 ICD-10: R05 Active 11/16/2016 Unknown Other vitamin B12 deficiency anemias ICD-9: 281.1 ICD-10: D51.8 Active 10/13/2016 Unknown Atrophy of thyroid (acquired) ICD-9: 244.8 ICD-10: E03.4 Active 06/02/2016 Unknown VACCIN STREP PNEUMONIAE ICD-9: V03.82 ICD-10: Z23 Active 04/21/2016 Unknown Anemia, unspecified ICD-9: 285.9 ICD-10: D64.9 Active 08/05/2015 Unknown DIABETES TYPE II ICD-9 : 250.00 Active 01/01/2015 Unknown ESSENTIAL HYPERTENSION ICD-9: 401.9 Active 01/01/2015 Unknown Hypothryroidism Unknown Active 01/30/2015 Unknown Diabetes Unknown Active 01/02/2015 Unknown Hypertension Unknown Active 01/02/2015 Unknown Impacted cerumen ICD-9 : 380.4 Active 01/01/2015 Unknown Problems Condition Codes Effective Dates Condition Status Type 2 diabetes mellitus with hyperglycemia ICD-9: 250.00 ICD-10: E11.65 07/14/2016 Active Type 2 diabetes mellitus with hyperglycemia ICD-9: 250.02 ICD-10: E11.65 05/22/2018 Active Essential (primary) hypertension ICD-9: 401.9 ICD-10: I10 01/01/2015 Active Hypothyroidism, unspecified ICD-9: 244.9 ICD-10: E03.9 08/19/2016 Active Spinal stenosis, lumbar region without neurogenic claudication ICD-9: 724.02 ICD-10: M48.061 01/12/2018 Active Vitamin B12 deficiency anemia due to intrinsic factor deficiency ICD-9: 281.0 ICD-10: D51.0 07/28/2016 Active Low back pain ICD-9: 724.2 ICD-10: M54.5 11/25/2017 Active Varicose veins of bilateral lower extremities with pain ICD-9: 454.8 ICD-10: I83.813 11/25/2017 Active Localized edema ICD-9 : 782.3 ICD-10: R60.0 09/15/2017 Active Chronic kidney disease, stage 3 (moderate) ICD-9: 585.3 ICD-10: N18.3 06/02/2016 Active Acute upper respiratory infection, unspecified ICD-9: 465.9 ICD-10: J06.9 11/16/2016 Active Cough ICD-9: 786.2 ICD-10: R05 11/16/2016 Active Other vitamin B12 deficiency anemias ICD-9: 281.1 ICD-10: D51.8 10/13/2016 Active Atrophy of thyroid (acquired) ICD-9: 244.8 ICD-10: E03.4 06/02/2016 Active VACCIN STREP PNEUMONIAE ICD-9: V03.82 ICD-10: Z23 04/21/2016 Active Anemia, unspecified ICD-9: 285.9 ICD-10: D64.9 08/05/2015 Active DIABETES TYPE II ICD-9 : 250.00 01/01/2015 Active ESSENTIAL HYPERTENSION ICD-9: 401.9 01/01/2015 Active Hypothryroidism Unknown 01/30/2015 Active Diabetes Unknown 01/02/2015 Active Hypertension Unknown 01/02/2015 Active Impacted cerumen ICD-9 : 380.4 01/01/2015 Active Medications Medication Codes Instructions Start Date Stop Date Status Fill Instructions terazosin 2 mg capsule RxNorm: 980603 TAKE ONE CAPSULE BY MOUTH DAILY 06/09/2018 03/05/2019 Active Humulin 70/30 U-100 Insulin 100 unit/mL subcutaneous suspension RxNorm: 167207 18 Unit(s) SQ QAM 05/15/2018 No Stop Date Active levothyroxine 100 mcg tablet RxNorm: 632867 1 Tablet(s) PO daily 05/11/2018 09/07/2018 Active carvedilol 12.5 mg tablet RxNorm: 295655 TAKE ONE TABLET BY MOUTH TWICE A DAY 05/05/2018 07/28/2019 Active losartan 100 mg tablet RxNorm: 484261 TAKE ONE TABLET BY MOUTH DAILY 03/24/2018 06/10/2020 Active terazosin 2 mg capsule RxNorm: 305622 TAKE ONE CAPSULE BY MOUTH DAILY 03/07/2018 06/08/2018 Inactive Lantus Solostar U-100 Insulin 100 unit/mL (3 mL) subcutaneous pen RxNorm: 245733 Unit(s) INJECT 24 UNITS UNDER THE SKIN EVERY NIGHT AT BEDTIME 01/12/2018 No Stop Date Active cyanocobalamin (vit B-12) 1,000 mcg/mL injection solution RxNorm: 762672 1 Milliliter(s) Inj 01/12/2018 01/12/2018 Inactive Humulin 70/30 U-100 Insulin 100 unit/mL subcutaneous suspension RxNorm: 748350 INJECT 18 UNITS UNDER THE SKIN EVERY MORNING 11/14/2017 03/05/2018 Inactive carvedilol 12.5 mg tablet RxNorm: 741806 TAKE ONE TABLET BY MOUTH TWICE A DAY 11/07/2017 05/04/2018 Inactive cyanocobalamin (vit B-12) 1,000 mcg/mL injection solution RxNorm: 652908 Milliliter(s) Inj 09/15/2017 09/15/2017 Inactive terazosin 2 mg capsule RxNorm: 496921 Capsule(s) TAKE ONE CAPSULE BY MOUTH DAILY 09/07/2017 03/05/2018 Inactive Lantus Solostar 100 unit/mL (3 mL) subcutaneous insulin pen RxNorm: 261593 INJECT 35 UNITS UNDER THE SKIN EVERY NIGHT AT BEDTIME 201701/11/2018 Inactive One Touch Test strips RxNorm: 1 test Miscellaneous BID 201708/16/2018 Active Contour Test Strips RxNorm: TEST BLOOD SUGAR TWO TIMES A DAY E11.65 08/22/2017 02/22/2019 Active Tamiflu 75 mg capsule RxNorm: 698915 1 Capsule(s) PO daily 08/1708/16/2017 Inactive Tamiflu 75 mg capsule RxNorm: 638665 1 Capsule(s) PO daily 08/1708/26/2017 Inactive cyanocobalamin (vit B-12) 1,000 mcg/mL injection solution RxNorm: 874275 1 Milliliter(s) Inj 08/17/2017 08/17/2017 Inactive carvedilol 12.5 mg tablet RxNorm: 974800 TAKE ONE TABLET BY MOUTH TWICE A DAY 08/10/2017 11/06/2017 Inactive cyanocobalamin (vit B-12) 1,000 mcg/mL injection solution RxNorm: 016472 1 Milliliter(s) Inj 07/19/2017 07/19/2017 Inactive Humulin 70/30 100 unit/mL subcutaneous suspension RxNorm: 995001 14 Unit(s) SQ QAM 07/06/2017 05/14/2018 Inactive Lantus Solostar 100 unit/mL (3 mL) subcutaneous insulin pen RxNorm: 750740 26 Unit(s) SQ QHS 07/06/2017 08/28/2017 Inactive losartan 100 mg tablet RxNorm: 907312 TAKE ONE TABLET BY MOUTH DAILY 06/07/2017 03/23/2018 Inactive Lantus Solostar 100 unit/mL (3 mL) subcutaneous insulin pen RxNorm: 484376 28 Unit(s) SQ QHS 05/19/2017 07/05/2017 Inactive cyanocobalamin (vit B-12) 1,000 mcg/mL injection solution RxNorm: 271341 1 Milliliter(s) Inj 05/19/2017 05/19/2017 Inactive terazosin 2 mg capsule RxNorm: 731062 TAKE ONE CAPSULE BY MOUTH DAILY 05/16/2017 09/06/2017 Inactive cyanocobalamin (vit B-12) 1,000 mcg/mL injection solution RxNorm: 424834 1 Milliliter(s) Inj 04/06/2017 04/06/2017 Inactive cyanocobalamin (vit B-12) 1,000 mcg/mL injection solution RxNorm: 692245 Milliliter(s) Inj 01/04/2017 01/04/2017 Inactive Humulin 70/30 U-100 Insulin 100 unit/mL subcutaneous suspension RxNorm: 887551 18 Unit(s) SQ QAM 12/22/20162016 Inactive cyanocobalamin (vit B-12) 1,000 mcg/mL injection solution RxNorm: 663473 1 Milliliter(s) Inj 12/10/2016 12/10/2016 Inactive Zithromax Z-Jose 250 mg tablet RxNorm: 458311 1 Tablet(s) PO UD 11/16/2016 11/20/2016 Inactive terazosin 2 mg capsule RxNorm: 194755 TAKE ONE CAPSULE BY MOUTH DAILY 11/08/2016 05/06/2017 Inactive Lantus Solostar 100 unit/mL (3 mL) subcutaneous insulin pen RxNorm: 582073 INJECT 35 UNITS UNDER THE SKIN EVERY NIGHT AT BEDTIME 201607/18/2017 Inactive cyanocobalamin (vit B-12) 1,000 mcg/mL injection solution RxNorm: 061303 Milliliter(s) Inj 10/13/2016 10/13/2016 Inactive cyanocobalamin (vit B-12) 1,000 mcg/mL injection solution RxNorm: 157766 1 Milliliter(s) Inj 09/03/2016 09/03/2016 Inactive Contour Test Strips RxNorm: TEST BLOOD SUGAR TWO TIMES A DAY E11.65 08/19/2016 08/21/2017 Inactive carvedilol 12.5 mg tablet RxNorm: 743044 TAKE ONE TABLET BY MOUTH TWICE A DAY 08/05/2016 01/01/2017 Inactive carvedilol 12.5 mg tablet RxNorm: 264415 TAKE ONE TABLET BY MOUTH TWICE A DAY 08/05/2016 01/01/2017 Inactive carvedilol 12.5 mg tablet RxNorm: 464144 1 Tablet(s) PO BID 05/201701/30/2017 Inactive cyanocobalamin (vit B-12) 1,000 mcg/mL injection solution RxNorm: 100350 Milliliter(s) Inj 07/29/2016 07/29/2016 Inactive Lantus Solostar 100 unit/mL (3 mL) subcutaneous insulin pen RxNorm: 733716 30 Unit(s) SQ QHS 07/15/2016 05/18/2017 Inactive Humulin 70/30 100 unit/mL subcutaneous suspension RxNorm: 016115 18 Unit(s) SQ QAM 07/15/2016 12/21/2016 Inactive losartan 100 mg tablet RxNorm: 925064 TAKE ONE TABLET BY MOUTH DAILY 07/08/2016 06/02/2017 Inactive terazosin 2 mg capsule RxNorm: 234371 TAKE ONE CAPSULE BY MOUTH DAILY 06/10/2016 11/06/2016 Inactive cyanocobalamin (vit B-12) 1,000 mcg/mL injection solution RxNorm: 914177 1 Milliliter(s) Inj 06/03/2016 06/03/2016 Inactive Humulin 70/30 100 unit/mL subcutaneous suspension RxNorm: 278267 Unit(s) INJECT 10 UNITS UNDER THE SKIN 06/01/20162015 Inactive Request already responded to by other means (e.g. phone or fax) Humulin 70/30 100 unit/mL subcutaneous suspension RxNorm: 433113 INJECT 10 UNITS UNDER THE SKIN BEFORE MEALS 06/01/201601/2016 Inactive Request already responded to by other means (e.g. phone or fax) Lantus Solostar 100 unit/mL (3 mL) subcutaneous insulin pen RxNorm: 887122 35 Unit(s) SQ QHS 05/26/2016 07/14/2016 Inactive Humulin 70/30 100 unit/mL subcutaneous suspension RxNorm: 895507 10 Unit(s) SQ QAM 05/24/2016 10/02/2016 Inactive Humulin 70/30 100 unit/mL subcutaneous suspension RxNorm: 255385 21 Unit(s) SQ QAM 05/24/2016 05/23/2016 Inactive Lantus Solostar 100 unit/mL (3 mL) subcutaneous insulin pen RxNorm: 335089 32 Unit(s) SQ QHS 04/22/2016 05/25/2016 Inactive Humulin 70/30 100 unit/mL subcutaneous suspension RxNorm: 148573 21 Unit(s) SQ QAM 04/22/2016 05/24/2016 Inactive with breakfast hydrochlorothiazide 25 mg tablet RxNorm: 837525 TAKE ONE TABLET BY MOUTH DAILY 02/04/2016 02/16/2016 Inactive terazosin 2 mg capsule RxNorm: 500830 Capsule(s) TAKE ONE CAPSULE BY MOUTH DAILY. 12/01/2015 05/28/2016 Inactive Humulin 70/30 100 unit/mL subcutaneous suspension RxNorm: 591439 INJECT 10 UNITS UNDER THE SKIN BEFORE MEALS 11/06/2015 Inactive hydrochlorothiazide 25 mg tablet RxNorm: 437167 1 Tablet(s) PO daily 10/06/2015 02/02/2016 Inactive cyanocobalamin (vit B-12) 1,000 mcg/mL injection solution RxNorm: 404572 Milliliter(s) Inj 09/15/2015 09/15/2015 Inactive Humulin 70/30 100 unit/mL subcutaneous suspension RxNorm: 200534 INJECT 10 UNITS UNDER THE SKIN BEFORE MEALS 09/08/2015 Inactive cyanocobalamin (vit B-12) 1,000 mcg/mL injection solution RxNorm: 699836 Milliliter(s) Inj 09/08/2015 09/08/2015 Inactive terazosin 2 mg capsule RxNorm: 805829 TAKE ONE CAPSULE BY MOUTH DAILY. DISCONTINUE 5 MG CAPSULES 09/01/201511/28 Inactive cyanocobalamin (vit B-12) 1,000 mcg/mL injection solution RxNorm: 598804 Milliliter(s) Inj 09/01/2015 09/01/2015 Inactive cyanocobalamin (vit B-12) 1,000 mcg/mL injection solution RxNorm: 055260 Milliliter(s) Inj 08/25/2015 08/25/2015 Inactive levothyroxine 112 mcg tablet RxNorm: 121336 1 Tablet(s) PO daily 08/06/2015 02/14/2017 Inactive Lantus Solostar 100 unit/mL (3 mL) subcutaneous insulin pen RxNorm: 024640 35 Unit(s) SQ QHS 08/06/2015 04/21/2016 Inactive Humulin 70/30 100 unit/mL subcutaneous suspension RxNorm: 285890 20 Unit(s) SQ AC 08/05/2015 04/21/2016 Inactive with breakfast carvedilol 12.5 mg tablet RxNorm: 214918 1 Tablet(s) PO BID 06/201601/31/2016 Inactive Humulin 70/30 100 unit/mL subcutaneous suspension RxNorm: 519118 10 Unit(s) SQ AC 07/22/2015 08/04/2015 Inactive losartan 100 mg tablet RxNorm: 342526 TAKE ONE TABLET BY MOUTH DAILY 06/25/2015 06/18/2016 Inactive Lantus Solostar 100 unit/mL (3 mL) subcutaneous insulin pen RxNorm: 155207 30 Unit(s) SQ QHS 06/18/2015 08/05/2015 Inactive terazosin 2 mg capsule RxNorm: 694466 1 Capsule(s) PO daily 08/11/2015 Inactive DC the 5mg order terazosin 2 mg capsule RxNorm: 527126 1 Capsule(s) PO daily 04/13/2015 Inactive Synthroid 25 mcg tablet RxNorm: 280848 1 Tablet(s) PO daily 02/14/2017 Inactive Synthroid 25 mcg tablet RxNorm: 296130 1 Tablet(s) PO daily 04/10/2015 Inactive Lantus Solostar 100 unit/mL (3 mL) subcutaneous insulin pen RxNorm: 492053 30 Unit(s) SQ QHS 04/04/2015 06/17/2015 Inactive terazosin 5 mg tablet RxNorm: 064525 1 Tablet(s) PO daily 201404/13/2015 Inactive Lantus Solostar 100 unit/mL (3 mL) subcutaneous insulin pen RxNorm: 319611 25 Unit(s) SQ QHS 01/08/2015 04/03/2015 Inactive carvedilol 25 mg tablet RxNorm: 760521 1 Tablet(s) PO BID 01/0201/31/2015 Inactive terazosin 5 mg tablet RxNorm: 679939 1 Tablet(s) PO daily 201401/01/2015 Inactive levothyroxine 125 mcg tablet RxNorm: 861874 1 Tablet(s) PO daily 01/02/2015 01/31/2015 Inactive terazosin 5 mg tablet RxNorm: 800448 1/2 Tablet(s) PO daily 05/201501/31/2015 Inactive losartan 100 mg tablet RxNorm: 168797 1 Tablet(s) PO daily 08/201404/22/2015 Inactive losartan 100 mg tablet RxNorm: 963828 1 Tablet(s) PO daily 08/201412/23/2014 Inactive Contour Test Strips RxNorm: Miscellaneous test blood sugars BID 12/06/2014 12/05/2014 Inactive dx 250.00 Contour Test Strips RxNorm: Miscellaneous test blood sugars BID or UD 12/06/2014 06/23/2015 Inactive dx 250.00 [SAVINGS FOR NON-COVERED DRUGS -- BIN:[id number], PCN: [id number], Group: [id number], ID# [id number], Questions: . THIS IS NOT INSURANCE.] folic acid 1 mg tablet RxNorm: 742132 1 Tablet(s) PO QHS No Start Date Active Microlet Lancet RxNorm : Miscellaneous Test BID or Ud No Start Date Active 250.0 aspirin 81 mg tablet,delayed release RxNorm: 703037 1 Tablet(s) PO daily No Start Date Active Stool Softener 100 mg capsule RxNorm: 1974885 1 Capsule(s) PO every other day No Start Date Active folic acid oral RxNorm : 4511 oral No Start Date 05/19/2017 Inactive cyanocobalamin (vit B-12) 100 mcg tablet RxNorm: 323112 1 Tablet(s) PO daily No Start Date 02/14/2017 Inactive hydrochlorothiazide 25 mg tablet RxNorm: 246813 1 Tablet(s) PO daily No Start Date 10/05/2015 Inactive Stool Softener 100 mg capsule RxNorm: 3644466 1 Capsule(s) PO daily No Start Date 05/18/2017 Inactive Humulin 70/30 100 unit/mL subcutaneous suspension RxNorm: 715913 20 Unit(s) SQ QAM No Start Date 07/21/2015 Inactive levothyroxine 100 mcg tablet RxNorm: 414124 1 Tablet(s) PO daily No Start Date 05/10/2018 Inactive Lantus Solostar 100 unit/mL (3 mL) subcutaneous insulin pen RxNorm: 176671 20 Unit(s) SQ QHS No Start Date 01/07/2015 Inactive ferrous sulfate 325 mg (65 mg iron) tablet RxNorm: 728035 1 Tablet(s) PO daily No Start Date 05/18/2017 Inactive Medication Administered Medication Codes Instructions Start Date Status cyanocobalamin (vit B-12) 1,000 mcg/mL injection solution RxNorm: 347386 1Milliliter 01/12/2018 No longer Active cyanocobalamin (vit B-12) 1,000 mcg/mL injection solution RxNorm: 772282 Milliliter 09/15/2017 No longer Active cyanocobalamin (vit B-12) 1,000 mcg/mL injection solution RxNorm: 402854 1Milliliter 08/17/2017 No longer Active cyanocobalamin (vit B-12) 1,000 mcg/mL injection solution RxNorm: 849129 1Milliliter 07/19/2017 No longer Active cyanocobalamin (vit B-12) 1,000 mcg/mL injection solution RxNorm: 090028 1Milliliter 05/19/2017 No longer Active cyanocobalamin (vit B-12) 1,000 mcg/mL injection solution RxNorm: 251636 1Milliliter 04/06/2017 No longer Active cyanocobalamin (vit B-12) 1,000 mcg/mL injection solution RxNorm: 558141 Milliliter 01/04/2017 No longer Active cyanocobalamin (vit B-12) 1,000 mcg/mL injection solution RxNorm: 483979 1Milliliter 12/10/2016 No longer Active cyanocobalamin (vit B-12) 1,000 mcg/mL injection solution RxNorm: 774902 Milliliter 10/13/2016 No longer Active cyanocobalamin (vit B-12) 1,000 mcg/mL injection solution RxNorm: 613960 1Milliliter 09/03/2016 No longer Active cyanocobalamin (vit B-12) 1,000 mcg/mL injection solution RxNorm: 014601 Milliliter 07/29/2016 No longer Active cyanocobalamin (vit B-12) 1,000 mcg/mL injection solution RxNorm: 934190 1Milliliter 06/03/2016 No longer Active cyanocobalamin (vit B-12) 1,000 mcg/mL injection solution RxNorm: 119147 Milliliter 09/15/2015 No longer Active cyanocobalamin (vit B-12) 1,000 mcg/mL injection solution RxNorm: 501750 Milliliter 09/08/2015 No longer Active cyanocobalamin (vit B-12) 1,000 mcg/mL injection solution RxNorm: 021955 Milliliter 09/01/2015 No longer Active cyanocobalamin (vit B-12) 1,000 mcg/mL injection solution RxNorm: 505472 Milliliter 08/25/2015 No longer Active Immunizations Vaccine Codes Date Status Influenza CVX: 141 04/28/2018 completed Influenza CVX: 141 05/18/2017 completed Pneumococcal (Adult) CVX: 133 04/22/2016 completed Influenza CVX: 141 05/07/2015 completed Assessments Condition Codes Effective Dates Type 2 diabetes mellitus with hyperglycemia ICD-10: E11.65 ICD-9: 250.00 06/05/2018 Type 2 diabetes mellitus with hyperglycemia ICD-10: E11.65 ICD-9: 250.02 05/22/2018 Hypothyroidism, unspecified ICD-10: E03.9 ICD-9: 244.9 05/15/2018 Essential (primary) hypertension ICD-10: I10 ICD-9: 401.9 05/15/2018 Vitamin B12 deficiency anemia due to intrinsic factor deficiency ICD-10: D51.0 ICD-9: 281.0 01/12/2018 Spinal stenosis, lumbar region without neurogenic claudication ICD-10: M48.061 ICD-9: 724.02 01/12/2018 Low back pain ICD-10: M54.5 ICD-9: 724.2 11/25/2017 Varicose veins of bilateral lower extremities with pain ICD- 10: I83.813 ICD-9: 454.8 11/25/2017 Localized edema ICD-10: R60.0 ICD-9: 782.3 09/15/2017 Chronic kidney disease, stage 3 (moderate) ICD-10: N18.3 ICD-9: 585.3 05/19/2017 Cough ICD-10: R05 ICD-9: 786.2 11/16/2016 Acute upper respiratory infection, unspecified ICD-10: J06.9 ICD-9: 465.9 11/16/2016 Other vitamin B12 deficiency anemias ICD-10: D51.8 ICD-9: 281.1 10/13/2016 Atrophy of thyroid (acquired) ICD-10: E03.4 ICD-9: 244.8 06/03/2016 VACCIN STREP PNEUMONIAE ICD-10: Z23 ICD-9: V03.82 04/22/2016 Anemia, unspecified ICD-10: D64.9 ICD-9: 285.9 08/06/2015 Hypothyroidism ICD-9: 244.9 04/11/2015 ESSENTIAL HYPERTENSION ICD-9: 401.9 04/03 DIABETES TYPE II ICD-9: 250.00 2014 Impacted cerumen ICD-9: 380.4 01/02/2015 Reason For Visit Reason For Visit Effective Dates Notes diabetes mellitus 06/05/2018 diabetes mellitus 05/22/2018 diabetes mellitus 05/15/2018 diabetes mellitus 01/12/2018 lower leg pain 11/25/2017 diabetes mellitus 09/15/2017 diabetes mellitus 08/17/2017 diabetes mellitus 07/19/2017 diabetes mellitus 05/19/2017 diabetes mellitus 02/15/2017 diabetes mellitus 11/16/2016 diabetes mellitus 08/19/2016 diabetes mellitus 07/15/2016 diabetes mellitus 06/03/2016 hypertension 04/22/2016 hypertension 01/22/2016 hypertension 10/23/2015 hypertension 09/12/2015 hypertension 08/05/2015 hypertension 04/03/2015 hypertension 01/30/2015 hypertension 01/02/2015 Results Observation Observation Code Item Item Code Result Date Free T4 Gly142 FREE T4 1.21 ng/dL 05/15/2018 Tsh Ord6 TSH (3rd IS) 0.97 uIU/mL 05/15/2018 Comp Metabolic Gnt878 NA 142 mEq/L 05/15/2018 Comp Metabolic Oim662 K 4.0 mEq/L 05/15/2018 Comp Metabolic Wct474 CL 107 mEq/L 05/15/2018 Comp Metabolic Cju056 CO2 28.0 mEq/L 05/15/2018 Comp Metabolic Ewd328 ANION GAP 11 05/15/2018 Comp Metabolic Qgk649 GLUCOSE 211 mg/dL 05/15/2018 Comp Metabolic Ywm583 Creat 0.9 mg/dL 05/15/2018 Comp Metabolic Lgz898 eGFR 61 ml/min/1.73m2 05/15/2018 Comp Metabolic Dcs851 BUN 21 mg/dL 05/15/2018 Comp Metabolic Pjy534 B/C Ratio 22.6 Ratio 05/15/2018 Comp Metabolic Nio638 CALCIUM 9.1 mg/dL 05/15/2018 Comp Metabolic Dog481 ALK PHOS 85 U/L 05/15/2018 Comp Metabolic Fxc926 AST(SGOT) 36 U/L 05/15/2018 Comp Metabolic Cch692 ALT(SGPT) 19 U/L 05/15/2018 Comp Metabolic Nca010 BILI T 0.6 mg/dL 05/15/2018 Comp Metabolic Yfg968 ALBUMIN 3.8 g/dL 05/15/2018 Comp Metabolic Uzp141 TPRO 6.2 g/dL 05/15/2018 Comp Metabolic Eft960 GLOB 2.4 g/dL 05/15/2018 Comp Metabolic Mti802 A/G Ratio 1.6 Ratio 05/15/2018 Comp Metabolic Xsm107 Osmo 292 mOsmo 05/15/2018 %Hba1C Prp560 % HbA1c 12695-2 7.8 % 05/15/2018 %Hba1C Yzd999 Gluc Ave 177 mg/dL 05/15/2018 Comp Metabolic Ooq470 NA 139 mEq/L 11/28/2017 Comp Metabolic Knp027 K 4.1 mEq/L 11/28/2017 Comp Metabolic Mxx638 CL 105 mEq/L 11/28/2017 Comp Metabolic Kww444 CO2 26.0 mEq/L 11/28/2017 Comp Metabolic Yyz753 ANION GAP 12 11/28/2017 Comp Metabolic Nmc299 GLUCOSE 132 mg/dL 11/28/2017 Comp Metabolic Zci602 Creat 0.9 mg/dL 11/28/2017 Comp Metabolic Vml486 eGFR 66 ml/min/1.73m2 11/28/2017 Comp Metabolic Iyv184 BUN 17 mg/dL 11/28/2017 Comp Metabolic Wlp173 B/C Ratio 19.5 Ratio 11/28/2017 Comp Metabolic Wux784 CALCIUM 9.1 mg/dL 11/28/2017 Comp Metabolic Ghl023 ALK PHOS 78 U/L 11/28/2017 Comp Metabolic Pmt509 AST(SGOT) 35 U/L 11/28/2017 Comp Metabolic Ixr724 ALT(SGPT) 17 U/L 11/28/2017 Comp Metabolic Hml968 BILI T 0.6 mg/dL 11/28/2017 Comp Metabolic Eoj871 ALBUMIN 3.9 g/dL 11/28/2017 Comp Metabolic Lfz048 TPRO 6.4 g/dL 11/28/2017 Comp Metabolic Kec066 GLOB 2.5 g/dL 11/28/2017 Comp Metabolic Qfx238 A/G Ratio 1.6 Ratio 11/28/2017 Comp Metabolic Uup378 Osmo 281 mOsmo 11/28/2017 Tsh Ord6 TSH (3rd IS) 1.14 uIU/mL 11/28/2017 Free T4 Wav034 FREE T4 1.05 ng/dL 11/28/2017 %Hba1C Vsf951 % HbA1c 21466-8 7.7 % 11/25/2017 %Hba1C Tte740 Gluc Ave 174 mg/dL 11/25/2017 Cbc With Differential Ord2 WBC 6.44 K/ul 11/25/2017 Cbc With Differential Ord2 RBC 4.13 M/ul 11/25/2017 Cbc With Differential Ord2 HGB 12.3 g/dl 11/25/2017 Cbc With Differential Ord2 Neut% 46.4 % 11/25/2017 Cbc With Differential Ord2 HCT 37.8 % 11/25/2017 Cbc With Differential Ord2 MCV 91.5 fl 11/25/2017 Cbc With Differential Ord2 Lymph% 39.8 % 11/25/2017 Cbc With Differential Ord2 [place]% 10.2 % 11/25/2017 Cbc With Differential Ord2 MCH 29.8 pg 11/25/2017 Cbc With Differential Ord2 MCHC 32.5 pg 11/25/2017 Cbc With Differential Ord2 Eos% 3.3 % 11/25/2017 Cbc With Differential Ord2 Baso% 0.3 % 11/25/2017 Cbc With Differential Ord2 PLT 175 K/ul 11/25/2017 Cbc With Differential Ord2 RDW 14.5 % 11/25/2017 Cbc With Differential Ord2 Neut ABS# 2.99 K/ul 11/25/2017 Cbc With Differential Ord2 Lymph ABS# 2.56 K/ul 11/25/2017 Cbc With Differential Ord2 [place] ABS# 0.7 K/ul 11/25/2017 Cbc With Differential Ord2 Eos ABS# 0.2 K/ul 11/25/2017 Cbc With Differential Ord2 Baso ABS# 0.0 K/ul 11/25/2017 Cbc With Differential Ord2 WBC 8.04 K/ul 05/19/2017 Cbc With Differential Ord2 RBC 3.93 M/ul 05/19/2017 Cbc With Differential Ord2 HGB 11.9 g/dl 05/19/2017 Cbc With Differential Ord2 Neut% 70.8 % 05/19/2017 Cbc With Differential Ord2 HCT 36.8 % 05/19/2017 Cbc With Differential Ord2 MCV 93.6 fl 05/19/2017 Cbc With Differential Ord2 Lymph% 20.4 % 05/19/2017 Cbc With Differential Ord2 [place]% 6.8 % 05/19/2017 Cbc With Differential Ord2 MCH 30.3 pg 05/19/2017 Cbc With Differential Ord2 MCHC 32.3 pg 05/19/2017 Cbc With Differential Ord2 Eos% 1.9 % 05/19/2017 Cbc With Differential Ord2 PLT 174 K/ul 05/19/2017 Cbc With Differential Ord2 Baso% 0.1 % 05/19/2017 Cbc With Differential Ord2 Neut ABS# 5.69 K/ul 05/19/2017 Cbc With Differential Ord2 RDW 14.0 % 05/19/2017 Cbc With Differential Ord2 Lymph ABS# 1.64 K/ul 05/19/2017 Cbc With Differential Ord2 [place] ABS# 0.6 K/ul 05/19/2017 Cbc With Differential Ord2 Eos ABS# 0.2 K/ul 05/19/2017 Cbc With Differential Ord2 Baso ABS# 0.0 K/ul 05/19/2017 B12 Rdd052 B12 >1500.00 pg/ml 05/19/2017 Free T4 Ixv452 FREE T4 1.10 ng/dL 05/19/2017 %Hba1C Yti372 % HbA1c 25607-4 6.8 % 05/19/2017 %Hba1C Bul473 Gluc Ave 148 mg/dL 05/19/2017 Tsh Ord6 hTSH II 1.73 uIU/mL 05/19/2017 Comp Metabolic Dyd138 NA 140 mEq/L 05/19/2017 Comp Metabolic Ygb646 K 3.8 mEq/L 05/19/2017 Comp Metabolic Clj377 CL 108 mEq/L 05/19/2017 Comp Metabolic Vya915 CO2 21.0 mEq/L 05/19/2017 Comp Metabolic Ejp545 ANION GAP 15 05/19/2017 Comp Metabolic Dwb791 GLUCOSE 207 mg/dL 05/19/2017 Comp Metabolic Vbw291 Creat 1.0 mg/dL 05/19/2017 Comp Metabolic Ews818 eGFR 55 ml/min/1.73m2 05/19/2017 Comp Metabolic Tey946 BUN 21 mg/dL 05/19/2017 Comp Metabolic Ivx773 B/C Ratio 20.4 Ratio 05/19/2017 Comp Metabolic Uwa381 CALCIUM 9.1 mg/dL 05/19/2017 Comp Metabolic Amu448 ALK PHOS 74 U/L 05/19/2017 Comp Metabolic Jwg701 AST(SGOT) 32 U/L 05/19/2017 Comp Metabolic Sgh684 ALT(SGPT) 15 U/L 05/19/2017 Comp Metabolic Zed642 BILI T 0.6 mg/dL 05/19/2017 Comp Metabolic Aje757 ALBUMIN 3.9 g/dL 05/19/2017 Comp Metabolic Pom270 TPRO 6.2 g/dL 05/19/2017 Comp Metabolic Dca402 GLOB 2.3 g/dL 05/19/2017 Comp Metabolic Nky764 A/G Ratio 1.6 Ratio 05/19/2017 Comp Metabolic Khb141 Osmo 288 mOsmo 05/19/2017 Cbc With Differential Ord2 WBC 6.80 K/ul 12/10/2016 Cbc With Differential Ord2 RBC 4.17 M/ul 12/10/2016 Cbc With Differential Ord2 HGB 12.2 g/dl 12/10/2016 Cbc With Differential Ord2 HCT 38.5 % 12/10/2016 Cbc With Differential Ord2 Neut% 53.7 % 12/10/2016 Cbc With Differential Ord2 MCV 92.3 fl 12/10/2016 Cbc With Differential Ord2 Lymph% 36.8 % 12/10/2016 Cbc With Differential Ord2 MCH 29.3 pg 12/10/2016 Cbc With Differential Ord2 [place]% 7.1 % 12/10/2016 Cbc With Differential Ord2 MCHC 31.7 pg 12/10/2016 Cbc With Differential Ord2 Eos% 2.1 % 12/10/2016 Cbc With Differential Ord2 PLT 190 K/ul 12/10/2016 Cbc With Differential Ord2 Baso% 0.3 % 12/10/2016 Cbc With Differential Ord2 RDW 14.6 % 12/10/2016 Cbc With Differential Ord2 Neut ABS# 3.66 K/ul 12/10/2016 Cbc With Differential Ord2 Lymph ABS# 2.50 K/ul 12/10/2016 Cbc With Differential Ord2 [place] ABS# 0.5 K/ul 12/10/2016 Cbc With Differential Ord2 Eos ABS# 0.1 K/ul 12/10/2016 Cbc With Differential Ord2 Baso ABS# 0.0 K/ul 12/10/2016 B12 Jje460 B12 222.00 pg/ml 12/10/2016 %Hba1C Rgi069 % HbA1c 68025-1 7.5 % 11/16/2016 %Hba1C Sab873 Gluc Ave 169 mg/dL 11/16/2016 Free T4 Smn660 FREE T4 1.03 ng/dL 11/16/2016 Comp Metabolic Sen707 NA 138 mEq/L 11/16/2016 Comp Metabolic Ucq266 K 3.8 mEq/L 11/16/2016 Comp Metabolic Imi071 CL 103 mEq/L 11/16/2016 Comp Metabolic Fzp916 CO2 26.0 mEq/L 11/16/2016 Comp Metabolic Duy754 ANION GAP 13 11/16/2016 Comp Metabolic Qqb136 GLUCOSE 235 mg/dL 11/16/2016 Comp Metabolic Ssz713 Creat 0.9 mg/dL 11/16/2016 Comp Metabolic Vlf480 eGFR 62 ml/min/1.73m2 11/16/2016 Comp Metabolic Xba783 BUN 20 mg/dL 11/16/2016 Comp Metabolic Pmp054 B/C Ratio 21.7 Ratio 11/16/2016 Comp Metabolic Hnn291 CALCIUM 8.9 mg/dL 11/16/2016 Comp Metabolic Jnr474 ALK PHOS 75 U/L 11/16/2016 Comp Metabolic Kwh852 AST(SGOT) 30 U/L 11/16/2016 Comp Metabolic Zmv570 ALT(SGPT) 13 U/L 11/16/2016 Comp Metabolic Nbh908 BILI T 0.6 mg/dL 11/16/2016 Comp Metabolic Bes811 ALBUMIN 3.8 g/dL 11/16/2016 Comp Metabolic Lcr518 TPRO 6.8 g/dL 11/16/2016 Comp Metabolic Imu888 GLOB 3.1 g/dL 11/16/2016 Comp Metabolic Cuj555 A/G Ratio 1.2 Ratio 11/16/2016 Comp Metabolic Ydm405 Osmo 286 mOsmo 11/16/2016 Tsh Ord6 hTSH II 2.50 uIU/mL 11/16/2016 Tsh Ord6 hTSH II 3.18 uIU/mL 05/21/2016 Lipid Ord30 CHOL 212 mg/dL 05/21/2016 Lipid Ord30 HDL 43.0 mg/dl 05/21/2016 Lipid Ord30 TRIG 164 mg/dL 05/21/2016 Lipid Ord30 LDL 136 mg/dL 05/21/2016 Lipid Ord30 C/HDL 4.9 Ratio 05/21/2016 B12 Vsc922 B12 159.00 pg/ml 05/21/2016 %Hba1C Imu320 % HbA1c 59036-6 7.5 % 05/21/2016 %Hba1C Mpy044 Gluc Ave 169 mg/dL 05/21/2016 Folate Ord36 Folate >23.80 ng/mL 05/21/2016 Free T4 Swo249 FREE T4 1.03 ng/dL 05/21/2016 CHEM 14 20280127 AST 33 U/L 03/15/2016 CHEM 14 20280127 ALT 13 U/L 03/15/2016 CHEM 14 1566855 BUN 18 mg/dL 03/15/2016 CHEM 14 1965489 ALBUMIN 3.9 g/dL 03/15/2016 CHEM 14 7303558 CHLORIDE 105 mmol/L 03/15/2016 CHEM 14 4528932 Bili Total 0.4 mg/dL 03/15/2016 CHEM 14 4115975 ALK PHOS 60 U/L 03/15/2016 CHEM 14 7077297 SODIUM 138 mmol/L 03/15/2016 CHEM 14 1970925 CREATININE 0.99 mg/dL 03/15/2016 CHEM 14 4558885 CALCIUM 9.4 mg/dL 03/15/2016 CHEM 14 8923146 POTASSIUM 3.8 mmol/L 03/15/2016 CHEM 14 1056073 TOTAL PROTEIN 6.7 g/dL 03/15/2016 CHEM 14 1524271 GLUCOSE 109 mg/dL 03/15/2016 CHEM 14 1456383 Bicarbonate 27 mmol/L 03/15/2016 CHEM 14 8347338 AGAP 6 mmol/L 03/15/2016 GFR CALC 3467749 GFR Non Afr Amr 54 mL/min 03/15/2016 GFR CALC 2562300 GFR Afr Amr >60 mL/min 03/15/2016 B12 Esm135 B12 46.00 pg/ml 08/07/2015 Iron Ord72 Iron 66 ug/dl 08/07/2015 Cbc With Differential Ord2 WBC 4.9 K/uL 08/05/2015 Cbc With Differential Ord2 LYM 2.0 K/uL 08/05/2015 Cbc With Differential Ord2 LYM% 40.3 % 08/05/2015 Cbc With Differential Ord2 NEUT/GRAN 2.5 K/uL 08/05/2015 Cbc With Differential Ord2 NEUT/GRAN % 50.8 % 08/05/2015 Cbc With Differential Ord2 MID 0.4 K/uL 08/05/2015 Cbc With Differential Ord2 MID% 8.9 % 08/05/2015 Cbc With Differential Ord2 RBC 3.28 M/uL 08/05/2015 Cbc With Differential Ord2 HGB 10.2 g/dL 08/05/2015 Cbc With Differential Ord2 HCT 33.2 % 08/05/2015 Cbc With Differential Ord2 MCV 101 fL 08/05/2015 Cbc With Differential Ord2 MCH 31 pg 08/05/2015 Cbc With Differential Ord2 MCHC 31 g/dL 08/05/2015 Cbc With Differential Ord2 PLT 210 K/uL 08/05/2015 Cbc With Differential Ord2 RDW 16.6 % 08/05/2015 Free T4 Hyy434 FREE T4 1.33 ng/dL 08/05/2015 Comp Metabolic Mli614 NA 137 mEq/L 08/05/2015 Comp Metabolic Dpf742 K 4.5 mEq/L 08/05/2015 Comp Metabolic Lsh406 CL 104 mEq/L 08/05/2015 Comp Metabolic Jyi707 CO2 26.0 mEq/L 08/05/2015 Comp Metabolic Jln513 ANION GAP 12 08/05/2015 Comp Metabolic Ibx104 GLUCOSE 146 mg/dL 08/05/2015 Comp Metabolic Aao975 Creat 1.0 mg/dL 08/05/2015 Comp Metabolic Tmw558 eGFR 56 ml/min/1.73m2 08/05/2015 Comp Metabolic Cgj801 BUN 23 mg/dL 08/05/2015 Comp Metabolic Lgy164 B/C Ratio 22.8 Ratio 08/05/2015 Comp Metabolic Qau750 CALCIUM 9.3 mg/dL 08/05/2015 Comp Metabolic Yjt527 ALK PHOS 71 U/L 08/05/2015 Comp Metabolic Yzu396 AST(SGOT) 33 U/L 08/05/2015 Comp Metabolic Kar808 ALT(SGPT) 15 U/L 08/05/2015 Comp Metabolic Kga908 BILI T 0.6 mg/dL 08/05/2015 Comp Metabolic Gvd926 ALBUMIN 3.9 g/dL 08/05/2015 Comp Metabolic Ovk180 TPRO 6.5 g/dL 08/05/2015 Comp Metabolic Mfv459 GLOB 2.6 g/dL 08/05/2015 Comp Metabolic Ocq091 A/G Ratio 1.5 Ratio 08/05/2015 Comp Metabolic Oys984 Osmo 280 mOsmo 08/05/2015 Tsh Ord6 hTSH II 0.36 uIU/mL 08/05/2015 %Hba1C Fkk033 % HbA1c 15406-0 8.1 % 08/05/2015 %Hba1C Kuj914 Gluc Ave 186 mg/dL 08/05/2015 Free T4 Tdx826 FREE T4 0.91 ng/dL 04/11/2015 %Hba1C Znw442 % HbA1c 24286-2 8.3 % 04/10/2015 %Hba1C Oqz595 Gluc Ave 192 mg/dL 04/10/2015 Cbc With Differential Ord2 WBC 5.5 K/uL 04/10/2015 Cbc With Differential Ord2 LYM 2.5 K/uL 04/10/2015 Cbc With Differential Ord2 LYM% 44.9 % 04/10/2015 Cbc With Differential Ord2 NEUT/GRAN 2.6 K/uL 04/10/2015 Cbc With Differential Ord2 NEUT/GRAN % 46.7 % 04/10/2015 Cbc With Differential Ord2 MID 0.5 K/uL 04/10/2015 Cbc With Differential Ord2 MID% 8.4 % 04/10/2015 Cbc With Differential Ord2 RBC 3.31 M/uL 04/10/2015 Cbc With Differential Ord2 HGB 10.5 g/dL 04/10/2015 Cbc With Differential Ord2 HCT 33.2 % 04/10/2015 Cbc With Differential Ord2 MCV 100 fL 04/10/2015 Cbc With Differential Ord2 MCH 32 pg 04/10/2015 Cbc With Differential Ord2 MCHC 32 g/dL 04/10/2015 Cbc With Differential Ord2 PLT 200 K/uL 04/10/2015 Cbc With Differential Ord2 RDW 15.8 % 04/10/2015 Comp Metabolic Jmj958 NA 134 mEq/L 04/10/2015 Comp Metabolic Anx944 K 4.1 mEq/L 04/10/2015 Comp Metabolic Hkm300 CL 105 mEq/L 04/10/2015 Comp Metabolic Ich593 CO2 26.0 mEq/L 04/10/2015 Comp Metabolic Puy361 ANION GAP 7 04/10/2015 Comp Metabolic Bhb783 GLUCOSE 126 mg/dL 04/10/2015 Comp Metabolic Jdx601 Creat 1.0 mg/dL 04/10/2015 Comp Metabolic Dgh085 eGFR 58 ml/min/1.73m2 04/10/2015 Comp Metabolic Agt518 BUN 29 mg/dL 04/10/2015 Comp Metabolic Fld554 B/C Ratio 29.6 Ratio 04/10/2015 Comp Metabolic Ceo619 CALCIUM 9.3 mg/dL 04/10/2015 Comp Metabolic Wus157 ALK PHOS 63 U/L 04/10/2015 Comp Metabolic Avf613 AST(SGOT) 31 U/L 04/10/2015 Comp Metabolic Ynl355 ALT(SGPT) 14 U/L 04/10/2015 Comp Metabolic Tyv322 BILI T 0.6 mg/dL 04/10/2015 Comp Metabolic Ssw204 ALBUMIN 3.9 g/dL 04/10/2015 Comp Metabolic Szo528 TPRO 6.3 g/dL 04/10/2015 Comp Metabolic Aps966 GLOB 2.4 g/dL 04/10/2015 Comp Metabolic Yqk235 A/G Ratio 1.6 Ratio 04/10/2015 Comp Metabolic Pjd243 Osmo 276 mOsmo 04/10/2015 Tsh Ord6 hTSH II 6.71 uIU/mL 04/10/2015 Review of Systems System Result Effective Dates Constitutional No recent illness 2017 Constitutional No anorexia 06/05/2018 Constitutional No night sweats 2017 Constitutional No chills 06/05/2018 Constitutional No diaphoresis 06/05/2018 Constitutional fatigue 06/05/2018 Constitutional No fever 06/05/2018 Constitutional No insomnia 06/05/2018 Constitutional No malaise 06/05/2018 Constitutional No weight loss 06/05/2018 Constitutional No weight gain 06/05/2018 Constitutional No recent illness 2017 Constitutional No anorexia 05/22/2018 Constitutional No night sweats 2017 Constitutional No chills 05/22/2018 Constitutional No diaphoresis 05/22/2018 Constitutional fatigue 05/22/2018 Constitutional No fever 05/22/2018 Constitutional No insomnia 05/22/2018 Constitutional No malaise 05/22/2018 Constitutional No weight loss 05/22/2018 Constitutional No weight gain 05/22/2018 Constitutional No recent illness 2017 Constitutional No chills 05/15/2018 Constitutional No diaphoresis 05/15/2018 Constitutional No fever 05/15/2018 Eyes No blindness 05/15/2018 Ears/Nose/Throat/Neck No nasal allergies 05/15/2018 Ears/Nose/Throat/Neck No nasal discharge 05/15/2018 Cardiovascular No chest pain/pressure Cardiovascular No dyspnea 05/15/2018 Respiratory No chest congestion 2017 Respiratory No cough 05/15/2018 Respiratory dyspnea on exertion 2017 Respiratory No dyspnea 05/15/2018 Gastrointestinal No abdominal pain 2017 Genitourinary/Nephrology No dysuria 05/15 Musculoskeletal back pain 05/15/2018 Dermatologic No rash 05/15/2018 Neurologic No alteration of consciousness 05/15/2018 Neurologic No mental status change 2017 Constitutional No recent illness 2017 Constitutional No chills 01/12/2018 Constitutional No diaphoresis 01/12/2018 Constitutional No fever 01/12/2018 Eyes No blindness 01/12/2018 Ears/Nose/Throat/Neck No nasal allergies 01/12/2018 Ears/Nose/Throat/Neck No nasal discharge 01/12/2018 Cardiovascular No chest pain/pressure Cardiovascular No dyspnea 01/12/2018 Respiratory No chest congestion 2017 Respiratory No cough 01/12/2018 Respiratory dyspnea on exertion 2017 Respiratory No dyspnea 01/12/2018 Gastrointestinal No abdominal pain 2017 Musculoskeletal back pain 01/12/2018 Musculoskeletal myalgias 01/12/2018 Dermatologic No rash 01/12/2018 Neurologic No alteration of consciousness 01/12/2018 Neurologic No mental status change 2017 Genitourinary/Nephrology No dysuria 01/12 Cardiovascular edema 01/12/2018 Constitutional No recent illness 2017 Constitutional No chills 11/25/2017 Constitutional No diaphoresis 11/25/2017 Constitutional No fever 11/25/2017 Eyes No blindness 11/25/2017 Ears/Nose/Throat/Neck No nasal allergies 11/25/2017 Ears/Nose/Throat/Neck No nasal discharge 11/25/2017 Cardiovascular No chest pain/pressure 10/2017 Cardiovascular No dyspnea 11/25/2017 Respiratory No chest congestion 2017 Respiratory No cough 11/25/2017 Respiratory No dyspnea on exertion 2017 Respiratory No dyspnea 11/25/2017 Gastrointestinal No abdominal pain 2017 Dermatologic No rash 11/25/2017 Neurologic No alteration of consciousness 11/25/2017 Neurologic No mental status change 2017 Musculoskeletal back pain 11/25/2017 Musculoskeletal myalgias 11/25/2017 Constitutional No recent illness 2017 Constitutional No chills 09/15/2017 Constitutional No diaphoresis 09/15/2017 Constitutional No fever 09/15/2017 Eyes No eye erythema 09/15/2017 Ears/Nose/Throat/Neck No nasal allergies 09/15/2017 Ears/Nose/Throat/Neck No nasal discharge 09/15/2017 Cardiovascular No chest pain/pressure Cardiovascular No dyspnea 09/15/2017 Respiratory No chest congestion 2017 Respiratory No cough 09/15/2017 Respiratory No dyspnea on exertion 2017 Respiratory No dyspnea 09/15/2017 Gastrointestinal No abdominal pain 2017 Dermatologic No rash 09/15/2017 Neurologic No alteration of consciousness 09/15/2017 Neurologic No mental status change 2017 Constitutional No recent illness 2017 Constitutional No chills 08/17/2017 Constitutional No diaphoresis 08/17/2017 Constitutional fatigue 08/17/2017 Constitutional No fever 08/17/2017 Eyes No eye pain 08/17/2017 Eyes No vision change 08/17/2017 Cardiovascular No chest pain/pressure Respiratory No chest congestion 2017 Respiratory No cough 08/17/2017 Gastrointestinal No abdominal pain 2017 Gastrointestinal No constipation 2017 Gastrointestinal No diarrhea 08/17/2017 Gastrointestinal No nausea 08/17/2017 Gastrointestinal No vomiting 08/17/2017 Musculoskeletal No stiffness 08/17/2017 Musculoskeletal No swelling 08/17/2017 Musculoskeletal arthralgia(s) 08/17/2017 Musculoskeletal back pain 08/17/2017 Dermatologic No rash 08/17/2017 Dermatologic No sores 08/17/2017 Neurologic No alteration of consciousness 08/17/2017 Neurologic No mental status change 2017 Ears/Nose/Throat/Neck No nasal discharge 08/17/2017 Constitutional No recent illness 2016 Constitutional No chills 07/19/2017 Constitutional No diaphoresis 07/19/2017 Constitutional fatigue 07/19/2017 Constitutional No fever 07/19/2017 Eyes No eye pain 07/19/2017 Eyes No vision change 07/19/2017 Ears/Nose/Throat/Neck No nasal discharge 07/19/2017 Cardiovascular No chest pain/pressure Respiratory No chest congestion 2016 Respiratory No cough 07/19/2017 Gastrointestinal No abdominal pain 2016 Gastrointestinal No constipation 2016 Gastrointestinal No diarrhea 07/19/2017 Gastrointestinal No nausea 07/19/2017 Gastrointestinal No vomiting 07/19/2017 Musculoskeletal No stiffness 07/19/2017 Musculoskeletal No swelling 07/19/2017 Musculoskeletal arthralgia(s) 07/19/2017 Musculoskeletal back pain 07/19/2017 Dermatologic No rash 07/19/2017 Dermatologic No sores 07/19/2017 Neurologic No alteration of consciousness 07/19/2017 Neurologic No mental status change 2016 Constitutional No recent illness 2016 Constitutional No anorexia 05/19/2017 Constitutional No night sweats 2016 Constitutional No chills 05/19/2017 Constitutional No diaphoresis 05/19/2017 Constitutional fatigue 05/19/2017 Constitutional No fever 05/19/2017 Constitutional No insomnia 05/19/2017 Constitutional No malaise 05/19/2017 Constitutional No weight loss 05/19/2017 Constitutional No weight gain 05/19/2017 Constitutional No obesity 05/19/2017 Eyes No eye pain 05/19/2017 Eyes No photophobia 05/19/2017 Eyes No vision change 05/19/2017 Ears/Nose/Throat/Neck dizziness 2016 Ears/Nose/Throat/Neck No headache 2016 Cardiovascular No chest pain/pressure Cardiovascular No fatigue 05/19/2017 Cardiovascular No palpitations 2016 Respiratory No chest congestion 2016 Respiratory No chest tightness 2016 Respiratory No cigarette smoking 2016 Respiratory No cough 05/19/2017 Respiratory dyspnea 05/19/2017 Gastrointestinal No abdominal pain 2016 Gastrointestinal No constipation 2016 Gastrointestinal No diarrhea 05/19/2017 Gastrointestinal No gas and bloating Gastrointestinal No nausea 05/19/2017 Gastrointestinal No vomiting 05/19/2017 Genitourinary/Nephrology No anuria/oliguria 05/19/2017 Genitourinary/Nephrology No dysuria 05/19 Genitourinary/Nephrology No urinary urgency 05/19/2017 Genitourinary/Nephrology No urinary frequency 05/19/2017 Genitourinary/Nephrology No urinary incontinence 05/19/2017 Musculoskeletal No stiffness 05/19/2017 Musculoskeletal No swelling 05/19/2017 Musculoskeletal arthralgia(s) 05/19/2017 Musculoskeletal back pain 05/19/2017 Dermatologic No rash 05/19/2017 Dermatologic No sores 05/19/2017 Neurologic No alteration of consciousness 05/19/2017 Neurologic No mental status change 2016 Psychiatric No anxiety 05/19/2017 Psychiatric depression 05/19/2017 Endocrine No polydipsia 05/19/2017 Endocrine No polyuria 05/19/2017 Hematologic/Lymphatic No abnormal ecchymoses 05/19/2017 Hematologic/Lymphatic No abnormal bleeding and bruising 05/19/2017 Allergy/Immunology No anaphylactoid reaction 05/19/2017 Constitutional No recent illness 2016 Constitutional No anorexia 02/15/2017 Constitutional No night sweats 2016 Constitutional No chills 02/15/2017 Constitutional No diaphoresis 02/15/2017 Constitutional fatigue 02/15/2017 Constitutional No fever 02/15/2017 Constitutional No insomnia 02/15/2017 Constitutional No malaise 02/15/2017 Constitutional No weight loss 02/15/2017 Constitutional No weight gain 02/15/2017 Constitutional No obesity 02/15/2017 Eyes No eye pain 02/15/2017 Eyes No photophobia 02/15/2017 Eyes No vision change 02/15/2017 Ears/Nose/Throat/Neck dizziness 2016 Ears/Nose/Throat/Neck No headache 2016 Cardiovascular No chest pain/pressure Cardiovascular No fatigue 02/15/2017 Cardiovascular No palpitations 2016 Respiratory No chest congestion 2016 Respiratory No chest tightness 2016 Respiratory No cigarette smoking 2016 Respiratory No cough 02/15/2017 Respiratory dyspnea 02/15/2017 Gastrointestinal No abdominal pain 2016 Gastrointestinal No constipation 2016 Gastrointestinal No diarrhea 02/15/2017 Gastrointestinal No gas and bloating Gastrointestinal No nausea 02/15/2017 Gastrointestinal No vomiting 02/15/2017 Genitourinary/Nephrology No anuria/oliguria 02/15/2017 Genitourinary/Nephrology No dysuria 02/15 Genitourinary/Nephrology No urinary urgency 02/15/2017 Genitourinary/Nephrology No urinary frequency 02/15/2017 Genitourinary/Nephrology No urinary incontinence 02/15/2017 Musculoskeletal No stiffness 02/15/2017 Musculoskeletal No swelling 02/15/2017 Musculoskeletal arthralgia(s) 02/15/2017 Musculoskeletal back pain 02/15/2017 Dermatologic No rash 02/15/2017 Dermatologic No sores 02/15/2017 Neurologic No alteration of consciousness 02/15/2017 Neurologic No mental status change 2016 Psychiatric No anxiety 02/15/2017 Psychiatric depression 02/15/2017 Endocrine No polydipsia 02/15/2017 Endocrine No polyuria 02/15/2017 Hematologic/Lymphatic No abnormal ecchymoses 02/15/2017 Hematologic/Lymphatic No abnormal bleeding and bruising 02/15/2017 Allergy/Immunology No anaphylactoid reaction 02/15/2017 Constitutional recent illness 11/16/2016 Constitutional No anorexia 11/16/2016 Constitutional No night sweats 2016 Constitutional No chills 11/16/2016 Constitutional No diaphoresis 11/16/2016 Constitutional fatigue 11/16/2016 Constitutional No fever 11/16/2016 Constitutional No insomnia 11/16/2016 Constitutional No malaise 11/16/2016 Constitutional No weight loss 11/16/2016 Constitutional No weight gain 11/16/2016 Constitutional No obesity 11/16/2016 Eyes No eye pain 11/16/2016 Eyes No photophobia 11/16/2016 Eyes No vision change 11/16/2016 Ears/Nose/Throat/Neck dizziness 2016 Ears/Nose/Throat/Neck No headache 2016 Cardiovascular No chest pain/pressure Cardiovascular No fatigue 11/16/2016 Cardiovascular No palpitations 2016 Respiratory chest tightness 11/16/2016 Respiratory chest congestion 11/16/2016 Respiratory cough 11/16/2016 Respiratory No cigarette smoking 2016 Respiratory dyspnea 11/16/2016 Gastrointestinal No abdominal pain 2016 Gastrointestinal No gas and bloating Gastrointestinal No constipation 2016 Gastrointestinal No diarrhea 11/16/2016 Gastrointestinal No nausea 11/16/2016 Gastrointestinal No vomiting 11/16/2016 Genitourinary/Nephrology No anuria/oliguria 11/16/2016 Genitourinary/Nephrology No dysuria 11/16 Genitourinary/Nephrology No urinary urgency 11/16/2016 Genitourinary/Nephrology No urinary frequency 11/16/2016 Genitourinary/Nephrology No urinary incontinence 11/16/2016 Musculoskeletal No stiffness 11/16/2016 Musculoskeletal No swelling 11/16/2016 Musculoskeletal arthralgia(s) 11/16/2016 Musculoskeletal back pain 11/16/2016 Dermatologic No rash 11/16/2016 Dermatologic No sores 11/16/2016 Neurologic No alteration of consciousness 11/16/2016 Neurologic No mental status change 2016 Psychiatric No anxiety 11/16/2016 Psychiatric depression 11/16/2016 Endocrine No polydipsia 11/16/2016 Endocrine No polyuria 11/16/2016 Hematologic/Lymphatic No abnormal ecchymoses 11/16/2016 Hematologic/Lymphatic No abnormal bleeding and bruising 11/16/2016 Allergy/Immunology No anaphylactoid reaction 11/16/2016 Constitutional No recent illness 2016 Constitutional No anorexia 08/19/2016 Constitutional No night sweats 2016 Constitutional No chills 08/19/2016 Constitutional No diaphoresis 08/19/2016 Constitutional No fatigue 08/19/2016 Constitutional No fever 08/19/2016 Constitutional No insomnia 08/19/2016 Constitutional No malaise 08/19/2016 Constitutional No weight loss 08/19/2016 Constitutional No weight gain 08/19/2016 Eyes No eye discharge 08/19/2016 Eyes No eye erythema 08/19/2016 Ears/Nose/Throat/Neck nasal allergies Cardiovascular No chest pain/pressure Respiratory No cough 08/19/2016 Gastrointestinal No abdominal pain 2016 Gastrointestinal No constipation 2016 Gastrointestinal No diarrhea 08/19/2016 Genitourinary/Nephrology No dysuria 08/19 Musculoskeletal back pain 08/19/2016 Musculoskeletal No joint complaint 2016 Dermatologic No rash 08/19/2016 Ears/Nose/Throat/Neck No dizziness 2016 Ears/Nose/Throat/Neck No otalgia 2016 Neurologic No alteration of consciousness 08/19/2016 Constitutional No recent illness 2015 Constitutional No anorexia 07/15/2016 Constitutional No night sweats 2015 Constitutional No chills 07/15/2016 Constitutional No diaphoresis 07/15/2016 Constitutional No fatigue 07/15/2016 Constitutional No malaise 07/15/2016 Constitutional No insomnia 07/15/2016 Constitutional No fever 07/15/2016 Constitutional No weight loss 07/15/2016 Constitutional No weight gain 07/15/2016 Eyes No eye discharge 07/15/2016 Eyes No eye erythema 07/15/2016 Respiratory cough 07/15/2016 Cardiovascular No chest pain/pressure Ears/Nose/Throat/Neck nasal allergies Ears/Nose/Throat/Neck nasal discharge Ears/Nose/Throat/Neck sinus congestion Gastrointestinal No abdominal pain 2015 Gastrointestinal No constipation 2015 Gastrointestinal No diarrhea 07/15/2016 Genitourinary/Nephrology No dysuria 07/15 Musculoskeletal No joint complaint 2015 Dermatologic No rash 07/15/2016 Musculoskeletal back pain 07/15/2016 Constitutional No recent illness 2015 Constitutional No anorexia 06/03/2016 Constitutional No night sweats 2015 Constitutional No chills 06/03/2016 Constitutional No diaphoresis 06/03/2016 Constitutional fatigue 06/03/2016 Constitutional No fever 06/03/2016 Constitutional No insomnia 06/03/2016 Constitutional No malaise 06/03/2016 Eyes No eye discharge 06/03/2016 Eyes No eye erythema 06/03/2016 Ears/Nose/Throat/Neck No dizziness 2015 Ears/Nose/Throat/Neck No headache 2015 Cardiovascular No chest pain/pressure 04/2016 Cardiovascular No dyspnea 06/03/2016 Gastrointestinal No abdominal pain 2015 Gastrointestinal No constipation 2015 Gastrointestinal No diarrhea 06/03/2016 Genitourinary/Nephrology No dysuria 06/03 Musculoskeletal joint complaint 2015 Dermatologic No rash 06/03/2016 Neurologic No alteration of consciousness 06/03/2016 Psychiatric anxiety 06/03/2016 Psychiatric No depression 06/03/2016 Constitutional No recent illness 2015 Constitutional No chills 04/22/2016 Constitutional No anorexia 04/22/2016 Constitutional No night sweats 2015 Constitutional No diaphoresis 04/22/2016 Constitutional No insomnia 04/22/2016 Constitutional No fatigue 04/22/2016 Constitutional No fever 04/22/2016 Constitutional No weight loss 04/22/2016 Constitutional No malaise 04/22/2016 Constitutional No weight gain 04/22/2016 Eyes No eye discharge 04/22/2016 Eyes No eye erythema 04/22/2016 Respiratory cough 04/22/2016 Ears/Nose/Throat/Neck No dizziness 2015 Ears/Nose/Throat/Neck No headache 2015 Cardiovascular No chest pain/pressure Cardiovascular No dyspnea 04/22/2016 Gastrointestinal No abdominal pain 2015 Gastrointestinal No constipation 2015 Gastrointestinal No diarrhea 04/22/2016 Genitourinary/Nephrology No dysuria 04/22 Musculoskeletal joint complaint 2015 Dermatologic No rash 04/22/2016 Neurologic No alteration of consciousness 04/22/2016 Psychiatric anxiety 04/22/2016 Psychiatric No depression 04/22/2016 Endocrine No dry or coarse skin 2015 Hematologic/Lymphatic No abnormal bleeding and bruising 04/22/2016 Constitutional No recent illness 2015 Constitutional No diaphoresis 01/22/2016 Constitutional No fever 01/22/2016 Constitutional No malaise 01/22/2016 Eyes No vision change 01/22/2016 Ears/Nose/Throat/Neck No nasal allergies 01/22/2016 Ears/Nose/Throat/Neck No nasal discharge 01/22/2016 Cardiovascular No chest pain/pressure Cardiovascular No dyspnea 01/22/2016 Respiratory No chest congestion 2015 Respiratory No cough 01/22/2016 Gastrointestinal No abdominal pain 2015 Gastrointestinal No constipation 2015 Genitourinary/Nephrology No dysuria 01/21 Musculoskeletal No joint complaint 2015 Dermatologic No rash 01/22/2016 Dermatologic No sores 01/22/2016 Psychiatric No anxiety 01/22/2016 Psychiatric No depression 01/22/2016 Constitutional No chills 01/22/2016 Eyes No eye erythema 01/22/2016 Respiratory No dyspnea 01/22/2016 Gastrointestinal No diarrhea 01/22/2016 Neurologic No alteration of consciousness 01/22/2016 Neurologic No mental status change 2015 Constitutional No recent illness 2015 Constitutional No anorexia 10/23/2015 Constitutional No night sweats 2015 Constitutional No chills 10/23/2015 Constitutional No diaphoresis 10/23/2015 Constitutional No fatigue 10/23/2015 Constitutional No fever 10/23/2015 Constitutional No insomnia 10/23/2015 Constitutional No malaise 10/23/2015 Constitutional No weight loss 10/23/2015 Constitutional No weight gain 10/23/2015 Constitutional No obesity 10/23/2015 Cardiovascular No chest pain/pressure Cardiovascular No dyspnea 10/23/2015 Respiratory dyspnea on exertion 2015 Respiratory No dyspnea 10/23/2015 Respiratory No cough 10/23/2015 Respiratory No cigarette smoking 2015 Respiratory No chest tightness 2015 Respiratory No chest congestion 2015 Gastrointestinal No constipation 2015 Gastrointestinal diarrhea 10/23/2015 Gastrointestinal No abdominal pain 2015 Genitourinary/Nephrology No dysuria 10/22 Dermatologic No rash 10/23/2015 Dermatologic No sores 10/23/2015 Psychiatric No anxiety 10/23/2015 Psychiatric No depression 10/23/2015 Musculoskeletal No myalgias 10/23/2015 Musculoskeletal No muscle weakness 2015 Musculoskeletal No joint complaint 2015 Ears/Nose/Throat/Neck No nasal discharge 10/23/2015 Ears/Nose/Throat/Neck No nasal allergies 10/23/2015 Ears/Nose/Throat/Neck No headache 2015 Ears/Nose/Throat/Neck No otalgia 2015 Ears/Nose/Throat/Neck No otitis media Ears/Nose/Throat/Neck No sore throat Eyes No vision change 10/23/2015 Constitutional No recent illness 2015 Constitutional No chills 09/12/2015 Constitutional fatigue 09/12/2015 Constitutional No fever 09/12/2015 Constitutional No insomnia 09/12/2015 Constitutional No malaise 09/12/2015 Eyes No blindness 09/12/2015 Eyes No vision change 09/12/2015 Ears/Nose/Throat/Neck No dental pain Ears/Nose/Throat/Neck No dizziness 2015 Ears/Nose/Throat/Neck No dysphagia 2015 Ears/Nose/Throat/Neck No headache 2015 Ears/Nose/Throat/Neck No hearing loss Ears/Nose/Throat/Neck No nasal allergies 09/12/2015 Ears/Nose/Throat/Neck No postnasal drip 09/12/2015 Ears/Nose/Throat/Neck No sinus congestion 09/12/2015 Ears/Nose/Throat/Neck No sore throat Cardiovascular No chest pain/pressure Cardiovascular No dyspnea 09/12/2015 Cardiovascular No edema 09/12/2015 Cardiovascular No exercise intolerance Cardiovascular No fatigue 09/12/2015 Cardiovascular No near-syncope/dizziness 09/12/2015 Respiratory No chest tightness 2015 Respiratory No cough 09/12/2015 Respiratory No dyspnea 09/12/2015 Respiratory No pedal edema 09/12/2015 Gastrointestinal No abdominal pain 2015 Gastrointestinal No constipation 2015 Gastrointestinal No diarrhea 09/12/2015 Gastrointestinal No gastroesophageal reflux 09/12/2015 Gastrointestinal No nausea 09/12/2015 Gastrointestinal No vomiting 09/12/2015 Genitourinary/Nephrology No dysuria 09/12 Genitourinary/Nephrology No nocturia Genitourinary/Nephrology No urinary incontinence 09/12/2015 Musculoskeletal No stiffness 09/12/2015 Musculoskeletal No swelling 09/12/2015 Musculoskeletal No muscle weakness 2015 Musculoskeletal No myalgias 09/12/2015 Dermatologic No rash 09/12/2015 Dermatologic No sores 09/12/2015 Dermatologic No scar 09/12/2015 Neurologic No headache 09/12/2015 Neurologic No neck pain 09/12/2015 Neurologic No syncope 09/12/2015 Psychiatric No anxiety 09/12/2015 Psychiatric No depression 09/12/2015 Constitutional No recent illness 2015 Constitutional No chills 08/05/2015 Constitutional fatigue 08/05/2015 Constitutional No fever 08/05/2015 Constitutional No insomnia 08/05/2015 Constitutional No malaise 08/05/2015 Eyes No blindness 08/05/2015 Eyes No vision change 08/05/2015 Ears/Nose/Throat/Neck No dental pain 06/2016 Ears/Nose/Throat/Neck No dizziness 2015 Ears/Nose/Throat/Neck No dysphagia 2015 Ears/Nose/Throat/Neck No headache 2015 Ears/Nose/Throat/Neck No hearing loss 06/2016 Ears/Nose/Throat/Neck No nasal allergies 08/05/2015 Ears/Nose/Throat/Neck No postnasal drip 08/05/2015 Ears/Nose/Throat/Neck No sinus congestion 08/05/2015 Ears/Nose/Throat/Neck No sore throat 06/2016 Cardiovascular No chest pain/pressure 06/2016 Cardiovascular No dyspnea 08/05/2015 Cardiovascular No edema 08/05/2015 Cardiovascular No exercise intolerance Cardiovascular No fatigue 08/05/2015 Cardiovascular No near-syncope/dizziness 08/05/2015 Respiratory No chest tightness 2015 Respiratory No cough 08/05/2015 Respiratory No dyspnea 08/05/2015 Respiratory No pedal edema 08/05/2015 Gastrointestinal No abdominal pain 2015 Gastrointestinal No constipation 2015 Gastrointestinal No diarrhea 08/05/2015 Gastrointestinal No gastroesophageal reflux 08/05/2015 Gastrointestinal No nausea 08/05/2015 Gastrointestinal No vomiting 08/05/2015 Genitourinary/Nephrology No dysuria 08/05 Genitourinary/Nephrology No nocturia 06/2016 Genitourinary/Nephrology No urinary incontinence 08/05/2015 Musculoskeletal No stiffness 08/05/2015 Musculoskeletal No swelling 08/05/2015 Musculoskeletal No muscle weakness 2015 Musculoskeletal No myalgias 08/05/2015 Dermatologic No rash 08/05/2015 Dermatologic No sores 08/05/2015 Dermatologic No scar 08/05/2015 Neurologic No headache 08/05/2015 Neurologic No neck pain 08/05/2015 Neurologic No syncope 08/05/2015 Psychiatric No anxiety 08/05/2015 Psychiatric No depression 08/05/2015 Constitutional No recent illness 2014 Constitutional No chills 04/03/2015 Constitutional fatigue 04/03/2015 Constitutional No fever 04/03/2015 Constitutional No insomnia 04/03/2015 Constitutional No malaise 04/03/2015 Eyes No blindness 04/03/2015 Eyes No vision change 04/03/2015 Ears/Nose/Throat/Neck No dental pain 04/2015 Ears/Nose/Throat/Neck No dizziness 2014 Ears/Nose/Throat/Neck No dysphagia 2014 Ears/Nose/Throat/Neck No headache 2014 Ears/Nose/Throat/Neck No hearing loss 04/2015 Ears/Nose/Throat/Neck No nasal allergies 04/03/2015 Ears/Nose/Throat/Neck No postnasal drip 04/03/2015 Ears/Nose/Throat/Neck No sinus congestion 04/03/2015 Ears/Nose/Throat/Neck No sore throat 04/2015 Cardiovascular No chest pain/pressure 04/2015 Cardiovascular No dyspnea 04/03/2015 Cardiovascular No edema 04/03/2015 Cardiovascular No exercise intolerance Cardiovascular No fatigue 04/03/2015 Cardiovascular No near-syncope/dizziness 04/03/2015 Respiratory No chest tightness 2014 Respiratory No cough 04/03/2015 Respiratory No dyspnea 04/03/2015 Respiratory No pedal edema 04/03/2015 Gastrointestinal No abdominal pain 2014 Gastrointestinal No constipation 2014 Gastrointestinal No diarrhea 04/03/2015 Gastrointestinal No gastroesophageal reflux 04/03/2015 Gastrointestinal No nausea 04/03/2015 Gastrointestinal No vomiting 04/03/2015 Genitourinary/Nephrology No dysuria 04/03 Genitourinary/Nephrology No nocturia 04/2015 Genitourinary/Nephrology No urinary incontinence 04/03/2015 Musculoskeletal No stiffness 04/03/2015 Musculoskeletal No swelling 04/03/2015 Musculoskeletal No muscle weakness 2014 Musculoskeletal No myalgias 04/03/2015 Dermatologic No rash 04/03/2015 Dermatologic No sores 04/03/2015 Dermatologic No scar 04/03/2015 Neurologic No headache 04/03/2015 Neurologic No neck pain 04/03/2015 Neurologic No syncope 04/03/2015 Psychiatric No anxiety 04/03/2015 Psychiatric No depression 04/03/2015 Constitutional No recent illness 2014 Constitutional No chills 01/30/2015 Constitutional fatigue 01/30/2015 Constitutional No fever 01/30/2015 Constitutional No insomnia 01/30/2015 Constitutional No malaise 01/30/2015 Eyes No blindness 01/30/2015 Eyes No vision change 01/30/2015 Ears/Nose/Throat/Neck No dental pain 03/2015 Ears/Nose/Throat/Neck No dizziness 2014 Ears/Nose/Throat/Neck No dysphagia 2014 Ears/Nose/Throat/Neck No headache 2014 Ears/Nose/Throat/Neck No hearing loss 03/2015 Ears/Nose/Throat/Neck No nasal allergies 01/30/2015 Ears/Nose/Throat/Neck No sore throat 03/2015 Ears/Nose/Throat/Neck No postnasal drip 01/30/2015 Ears/Nose/Throat/Neck No sinus congestion 01/30/2015 Cardiovascular No chest pain/pressure 03/2015 Cardiovascular No dyspnea 01/30/2015 Cardiovascular No edema 01/30/2015 Cardiovascular No exercise intolerance Cardiovascular No fatigue 01/30/2015 Cardiovascular No near-syncope/dizziness 01/30/2015 Respiratory No chest tightness 2014 Respiratory No cough 01/30/2015 Respiratory No dyspnea 01/30/2015 Respiratory No pedal edema 01/30/2015 Gastrointestinal No abdominal pain 2014 Gastrointestinal No constipation 2014 Gastrointestinal No diarrhea 01/30/2015 Gastrointestinal No gastroesophageal reflux 01/30/2015 Gastrointestinal No nausea 01/30/2015 Gastrointestinal No vomiting 01/30/2015 Genitourinary/Nephrology No dysuria 01/30 Genitourinary/Nephrology No nocturia 03/2015 Genitourinary/Nephrology No urinary incontinence 01/30/2015 Musculoskeletal No stiffness 01/30/2015 Musculoskeletal No swelling 01/30/2015 Musculoskeletal No muscle weakness 2014 Musculoskeletal No myalgias 01/30/2015 Dermatologic No rash 01/30/2015 Dermatologic No sores 01/30/2015 Dermatologic No scar 01/30/2015 Neurologic dizziness 01/30/2015 Neurologic No headache 01/30/2015 Neurologic No neck pain 01/30/2015 Neurologic No syncope 01/30/2015 Psychiatric No anxiety 01/30/2015 Psychiatric No depression 01/30/2015 Constitutional No recent illness 2014 Constitutional No chills 01/02/2015 Constitutional fatigue 01/02/2015 Constitutional No fever 01/02/2015 Constitutional No insomnia 01/02/2015 Constitutional No malaise 01/02/2015 Eyes No blindness 01/02/2015 Eyes No vision change 01/02/2015 Ears/Nose/Throat/Neck No dental pain 05/2015 Ears/Nose/Throat/Neck No dizziness 2014 Ears/Nose/Throat/Neck No dysphagia 2014 Ears/Nose/Throat/Neck No headache 2014 Ears/Nose/Throat/Neck No hearing loss 05/2015 Ears/Nose/Throat/Neck No nasal allergies 01/02/2015 Ears/Nose/Throat/Neck No sore throat 05/2015 Ears/Nose/Throat/Neck No postnasal drip 01/02/2015 Ears/Nose/Throat/Neck No sinus congestion 01/02/2015 Cardiovascular No chest pain/pressure 05/2015 Cardiovascular No dyspnea 01/02/2015 Cardiovascular No edema 01/02/2015 Cardiovascular No exercise intolerance Cardiovascular No fatigue 01/02/2015 Cardiovascular No near-syncope/dizziness 01/02/2015 Respiratory No chest tightness 2014 Respiratory No cough 01/02/2015 Respiratory No dyspnea 01/02/2015 Respiratory No pedal edema 01/02/2015 Gastrointestinal No abdominal pain 2014 Gastrointestinal No constipation 2014 Gastrointestinal No diarrhea 01/02/2015 Gastrointestinal No gastroesophageal reflux 01/02/2015 Gastrointestinal No nausea 01/02/2015 Gastrointestinal No vomiting 01/02/2015 Genitourinary/Nephrology No dysuria 01/02 Genitourinary/Nephrology No nocturia 05/2015 Genitourinary/Nephrology No urinary incontinence 01/02/2015 Musculoskeletal No stiffness 01/02/2015 Musculoskeletal No swelling 01/02/2015 Musculoskeletal No muscle weakness 2014 Musculoskeletal No myalgias 01/02/2015 Dermatologic No rash 01/02/2015 Dermatologic No sores 01/02/2015 Dermatologic No scar 01/02/2015 Neurologic dizziness 01/02/2015 Neurologic No headache 01/02/2015 Neurologic No neck pain 01/02/2015 Neurologic No syncope 01/02/2015 Psychiatric No anxiety 01/02/2015 Psychiatric No depression 01/02/2015 Physical Exam Exam Name System Name Item Name Status Result Effective Dates Notes Full Exam - General 1994 Constitutional general appearance Overall: well developed 06/05/2018 None Full Exam - General 1994 Constitutional general appearance Overall: in no acute distress 06/05/2018 None Full Exam - General 1994 Constitutional general appearance Overall: well nourished 06/05/2018 None Full Exam - General 1994 Respiratory auscultation Overall: breath sounds clear bilaterally 06/05/2018 None Full Exam - General 1994 Respiratory respiratory effort/rhythm Overall: no retractions 06/05/2018 None Full Exam - General 1994 Cardiovascular auscultation of heart Overall: regular rate 06/05/2018 None Full Exam - General 1994 Cardiovascular auscultation of heart Overall: normal heart sounds 06/05/2018 None Full Exam - General 1994 Psychiatric orientation/consciousness Overall: oriented to person, place and time 06/05/2018 None Full Exam - General 1994 Cardiovascular auscultation of heart Overall: normal heart sounds 05/22/2018 None Full Exam - General 1994 Cardiovascular auscultation of heart Overall: regular rate 05/22/2018 None Full Exam - General 1994 Respiratory auscultation Overall: breath sounds clear bilaterally 05/22/2018 None Full Exam - General 1994 Respiratory respiratory effort/rhythm Overall: no retractions 05/22/2018 None Full Exam - General 1994 Constitutional general appearance Overall: well developed 05/22/2018 None Full Exam - General 1994 Constitutional general appearance Overall: in no acute distress 05/22/2018 None Full Exam - General 1994 Constitutional general appearance Overall: well nourished 05/22/2018 None Full Exam - General 1994 Psychiatric orientation/consciousness Overall: oriented to person, place and time 05/22/2018 None Full Exam - General 1994 Constitutional general appearance Overall: well developed 05/15/2018 None Full Exam - General 1994 Constitutional general appearance Overall: in no acute distress 05/15/2018 None Full Exam - General 1994 Constitutional general appearance Overall: well nourished 05/15/2018 None Full Exam - General 1994 Eyes conjunctiva /eyelids Overall: conjunctiva clear 05/15/2018 None Full Exam - General 1994 Eyes conjunctiva /eyelids Overall: cornea clear 05/15/2018 None Full Exam - General 1994 Eyes conjunctiva /eyelids Overall: eyelids normal 05/15/2018 None Full Exam - General 1994 Ears/Nose/Throat lips/teeth/gingiva Overall: benign lips 05/15/2018 None Full Exam - General 1994 Ears/Nose/Throat oral cavity/pharynx/larynx Overall: oral mucosa clear 05/15/2018 None Full Exam - General 1994 Respiratory auscultation Overall: breath sounds clear bilaterally 05/15/2018 None Full Exam - General 1994 Respiratory respiratory effort/rhythm Overall: no retractions 05/15/2018 None Full Exam - General 1994 Respiratory respiratory effort/rhythm Overall: normal rate 05/15/2018 None Full Exam - General 1994 Cardiovascular extremities Edema present: pitting 05/15/2018 None Full Exam - General 1994 Cardiovascular extremities Edema present: severity 1+ - 4 +: trace 05/15/2018 None Full Exam - General 1994 Cardiovascular extremities Other findings: varicose veins 05/15/2018 None Full Exam - General 1994 Cardiovascular auscultation of heart Overall: regular rate 05/15/2018 None Full Exam - General 1994 Cardiovascular auscultation of heart Overall: normal heart sounds 05/15/2018 None Full Exam - General 1994 Abdomen abdominal exam Overall: no tenderness 05/15/2018 None Full Exam - General 1994 Abdomen abdominal exam Overall: normal bowel sounds 05/15/2018 None Full Exam - General 1994 Musculoskeletal gait and station Overall: normal gait 05/15/2018 None Full Exam - General 1994 Musculoskeletal gait and station Overall: normal station 05/15/2018 None Full Exam - General 1994 Musculoskeletal head and neck Overall: head atraumatic 05/15/2018 None Full Exam - General 1994 Neurologic cranial nerves Overall: crainial nerves 2 - 12 grossly intact 05/15/2018 None Full Exam - General 1994 Psychiatric orientation/consciousness Overall: oriented to person, place and time 05/15/2018 None Full Exam - General 1994 Psychiatric mood and affect Overall: normal mood and affect 05/15/2018 None Full Exam - General 1994 Psychiatric appearance Overall: well-groomed, good eye contact 05/15/2018 None Full Exam - General 1994 Constitutional general appearance Overall: well developed 01/12/2018 None Full Exam - General 1994 Constitutional general appearance Overall: in no acute distress 01/12/2018 None Full Exam - General 1994 Constitutional general appearance Overall: well nourished 01/12/2018 None Full Exam - General 1994 Eyes conjunctiva /eyelids Overall: conjunctiva clear 01/12/2018 None Full Exam - General 1994 Eyes conjunctiva /eyelids Overall: cornea clear 01/12/2018 None Full Exam - General 1994 Eyes conjunctiva /eyelids Overall: eyelids normal 01/12/2018 None Full Exam - General 1994 Ears/Nose/Throat lips/teeth/gingiva Overall: benign lips 01/12/2018 None Full Exam - General 1994 Ears/Nose/Throat oral cavity/pharynx/larynx Overall: oral mucosa clear 01/12/2018 None Full Exam - General 1994 Respiratory auscultation Overall: breath sounds clear bilaterally 01/12/2018 None Full Exam - General 1994 Respiratory respiratory effort/rhythm Overall: no retractions 01/12/2018 None Full Exam - General 1994 Respiratory respiratory effort/rhythm Overall: normal rate 01/12/2018 None Full Exam - General 1994 Cardiovascular extremities Other findings: varicose veins 01/12/2018 None Full Exam - General 1994 Cardiovascular auscultation of heart Overall: regular rate 01/12/2018 None Full Exam - General 1994 Cardiovascular auscultation of heart Overall: normal heart sounds 01/12/2018 None Full Exam - General 1994 Musculoskeletal gait and station Overall: normal gait 01/12/2018 None Full Exam - General 1994 Musculoskeletal gait and station Overall: normal station 01/12/2018 None Full Exam - General 1994 Musculoskeletal head and neck Overall: head atraumatic 01/12/2018 None Full Exam - General 1994 Neurologic cranial nerves Overall: crainial nerves 2 - 12 grossly intact 01/12/2018 None Full Exam - General 1994 Psychiatric orientation/consciousness Overall: oriented to person, place and time 01/12/2018 None Full Exam - General 1994 Psychiatric mood and affect Overall: normal mood and affect 01/12/2018 None Full Exam - General 1994 Psychiatric appearance Overall: well-groomed, good eye contact 01/12/2018 None Full Exam - General 1994 Abdomen abdominal exam Overall: no tenderness 01/12/2018 None Full Exam - General 1994 Abdomen abdominal exam Overall: normal bowel sounds 01/12/2018 None Full Exam - General 1994 Cardiovascular extremities Edema present: pitting 01/12/2018 None Full Exam - General 1994 Cardiovascular extremities Edema present: severity 1+ - 4 +: 1 01/12/2018 None Full Exam - General 1995 Constitutional general appearance Overall: well developed 11/25/2017 None Full Exam - General 1994 Constitutional general appearance Overall: in no acute distress 11/25/2017 None Full Exam - General 1995 Constitutional general appearance Overall: well nourished 11/25/2017 None Full Exam - General 1995 Eyes conjunctiva /eyelids Overall: conjunctiva clear 11/25/2017 None Full Exam - General 1994 Eyes conjunctiva /eyelids Overall: cornea clear 11/25/2017 None Full Exam - General 1994 Eyes conjunctiva /eyelids Overall: eyelids normal 11/25/2017 None Full Exam - General 1994 Ears/Nose/Throat lips/teeth/gingiva Overall: benign lips 11/25/2017 None Full Exam - General 1994 Ears/Nose/Throat oral cavity/pharynx/larynx Overall: oral mucosa clear 11/25/2017 None Full Exam - General 1994 Respiratory auscultation Overall: breath sounds clear bilaterally 11/25/2017 None Full Exam - General 1994 Respiratory respiratory effort/rhythm Overall: no retractions 11/25/2017 None Full Exam - General 1994 Respiratory respiratory effort/rhythm Overall: normal rate 11/25/2017 None Full Exam - General 1994 Cardiovascular auscultation of heart Overall: regular rate 11/25/2017 None Full Exam - General 1994 Cardiovascular auscultation of heart Overall: normal heart sounds 11/25/2017 None Full Exam - General 1994 Musculoskeletal gait and station Overall: normal gait 11/25/2017 None Full Exam - General 1994 Musculoskeletal gait and station Overall: normal station 11/25/2017 None Full Exam - General 1994 Musculoskeletal head and neck Overall: head atraumatic 11/25/2017 None Full Exam - General 1994 Neurologic cranial nerves Overall: crainial nerves 2 - 12 grossly intact 11/25/2017 None Full Exam - General 1994 Psychiatric orientation/consciousness Overall: oriented to person, place and time 11/25/2017 None Full Exam - General 1994 Psychiatric mood and affect Overall: normal mood and affect 11/25/2017 None Full Exam - General 1994 Psychiatric appearance Overall: well-groomed, good eye contact 11/25/2017 None Full Exam - General 1994 Cardiovascular extremities Other findings: varicose veins 11/25/2017 None Full Exam - General 1994 Constitutional general appearance Overall: well developed 09/15/2017 None Full Exam - General 1994 Constitutional general appearance Overall: in no acute distress 09/15/2017 None Full Exam - General 1995 Constitutional general appearance Overall: well nourished 09/15/2017 None Full Exam - General 1994 Eyes conjunctiva /eyelids Overall: conjunctiva clear 09/15/2017 None Full Exam - General 1995 Eyes conjunctiva /eyelids Overall: cornea clear 09/15/2017 None Full Exam - General 1994 Eyes conjunctiva /eyelids Overall: eyelids normal 09/15/2017 None Full Exam - General 1994 Ears/Nose/Throat oral cavity/pharynx/larynx Overall: oral mucosa clear 09/15/2017 None Full Exam - General 1994 Ears/Nose/Throat lips/teeth/gingiva Overall: benign lips 09/15/2017 None Full Exam - General 1994 Respiratory respiratory effort/rhythm Overall: normal rate 09/15/2017 None Full Exam - General 1994 Respiratory respiratory effort/rhythm Overall: no retractions 09/15/2017 None Full Exam - General 1994 Respiratory auscultation Overall: breath sounds clear bilaterally 09/15/2017 None Full Exam - General 1994 Cardiovascular auscultation of heart Overall: regular rate 09/15/2017 None Full Exam - General 1994 Cardiovascular auscultation of heart Overall: normal heart sounds 09/15/2017 None Full Exam - General 1994 Cardiovascular extremities Edema present: pitting 09/15/2017 None Full Exam - General 1994 Cardiovascular extremities Edema present: severity 1+ - 4 +: 2 09/15/2017 None Full Exam - General 1994 Cardiovascular extremities Edema present: bilateral 09/15/2017 None Full Exam - General 1994 Cardiovascular extremities Edema present: to leg 09/15/2017 left greater than right Full Exam - General 1994 Musculoskeletal head and neck Overall: head atraumatic 09/15/2017 None Full Exam - General 1994 Musculoskeletal gait and station Overall: normal gait 09/15/2017 None Full Exam - General 1994 Musculoskeletal gait and station Overall: normal station 09/15/2017 None Full Exam - General 1994 Neurologic cranial nerves Overall: crainial nerves 2 - 12 grossly intact 09/15/2017 None Full Exam - General 1994 Psychiatric orientation/consciousness Overall: oriented to person, place and time 09/15/2017 None Full Exam - General 1994 Psychiatric mood and affect Overall: normal mood and affect 09/15/2017 None Full Exam - General 1994 Psychiatric appearance Overall: well-groomed, good eye contact 09/15/2017 None Full Exam - General 1994 Eyes conjunctiva /eyelids Overall: conjunctiva clear 08/17/2017 None Full Exam - General 1994 Eyes conjunctiva /eyelids Overall: cornea clear 08/17/2017 None Full Exam - General 1994 Eyes conjunctiva /eyelids Overall: eyelids normal 08/17/2017 None Full Exam - General 1994 Eyes pupils and irises Overall: pupils equal, round, reactive to light and accomodation 08/17/2017 None Full Exam - General 1994 Ears/Nose/Throat otoscopic exam Overall: external auditory canals clear 08/17/2017 None Full Exam - General 1994 Ears/Nose/Throat otoscopic exam Overall: tympanic membranes clear 08/17/2017 None Full Exam - General 1994 Ears/Nose/Throat lips/teeth/gingiva Overall: benign lips 08/17/2017 None Full Exam - General 1994 Ears/Nose/Throat oral cavity/pharynx/larynx Overall: oral mucosa clear 08/17/2017 None Full Exam - General 1994 Respiratory auscultation Overall: breath sounds clear bilaterally 08/17/2017 None Full Exam - General 1994 Respiratory respiratory effort/rhythm Overall: no retractions 08/17/2017 None Full Exam - General 1994 Respiratory respiratory effort/rhythm Overall: normal rate 08/17/2017 None Full Exam - General 1994 Cardiovascular auscultation of heart Overall: regular rate 08/17/2017 None Full Exam - General 1994 Cardiovascular auscultation of heart Overall: normal heart sounds 08/17/2017 None Full Exam - General 1994 Abdomen abdominal exam Overall: no tenderness 08/17/2017 None Full Exam - General 1994 Abdomen abdominal exam Overall: normal bowel sounds 08/17/2017 None Full Exam - General 1994 Lymphatic neck nodes Overall: anterior cervical chain benign 08/17/2017 None Full Exam - General 1994 Lymphatic neck nodes Overall: posterior cervical chain benign 08/17/2017 None Full Exam - General 1994 Musculoskeletal gait and station Overall: normal gait 08/17/2017 None Full Exam - General 1994 Musculoskeletal gait and station Overall: normal station 08/17/2017 None Full Exam - General 1994 Musculoskeletal head and neck Overall: head atraumatic 08/17/2017 None Full Exam - General 1994 Musculoskeletal head and neck Overall: cervical spine benign 08/17/2017 None Full Exam - General 1994 Neurologic mental status Overall: alert 08/17/2017 None Full Exam - General 1994 Neurologic mental status Overall: oriented 08/17/2017 None Full Exam - General 1994 Neurologic gait Overall: no ataxia, no unsteadiness 08/17/2017 None Full Exam - General 1994 Psychiatric orientation/consciousness Overall: oriented to person, place and time 08/17/2017 None Full Exam - General 1994 Psychiatric mood and affect Overall: normal mood and affect 08/17/2017 None Full Exam - General 1994 Constitutional general appearance Overall: well developed 08/17/2017 None Full Exam - General 1994 Constitutional general appearance Overall: in no acute distress 08/17/2017 None Full Exam - General 1994 Constitutional general appearance Overall: well nourished 08/17/2017 None Full Exam - General 1994 Constitutional general appearance Overall: well developed 07/19/2017 None Full Exam - General 1994 Constitutional general appearance Overall: in no acute distress 07/19/2017 None Full Exam - General 1994 Constitutional general appearance Overall: well nourished 07/19/2017 None Full Exam - General 1994 Eyes conjunctiva /eyelids Overall: conjunctiva clear 07/19/2017 None Full Exam - General 1994 Eyes conjunctiva /eyelids Overall: cornea clear 07/19/2017 None Full Exam - General 1994 Eyes conjunctiva /eyelids Overall: eyelids normal 07/19/2017 None Full Exam - General 1994 Eyes pupils and irises Overall: pupils equal, round, reactive to light and accomodation 07/19/2017 None Full Exam - General 1994 Ears/Nose/Throat otoscopic exam Overall: external auditory canals clear 07/19/2017 None Full Exam - General 1994 Ears/Nose/Throat otoscopic exam Overall: tympanic membranes clear 07/19/2017 None Full Exam - General 1994 Ears/Nose/Throat lips/teeth/gingiva Overall: benign lips 07/19/2017 None Full Exam - General 1994 Ears/Nose/Throat oral cavity/pharynx/larynx Overall: oral mucosa clear 07/19/2017 None Full Exam - General 1994 Respiratory auscultation Overall: breath sounds clear bilaterally 07/19/2017 None Full Exam - General 1994 Respiratory respiratory effort/rhythm Overall: no retractions 07/19/2017 None Full Exam - General 1994 Respiratory respiratory effort/rhythm Overall: normal rate 07/19/2017 None Full Exam - General 1994 Cardiovascular auscultation of heart Overall: regular rate 07/19/2017 None Full Exam - General 1994 Cardiovascular auscultation of heart Overall: normal heart sounds 07/19/2017 None Full Exam - General 1994 Abdomen abdominal exam Overall: no tenderness 07/19/2017 None Full Exam - General 1994 Abdomen abdominal exam Overall: normal bowel sounds 07/19/2017 None Full Exam - General 1994 Lymphatic neck nodes Overall: anterior cervical chain benign 07/19/2017 None Full Exam - General 1994 Lymphatic neck nodes Overall: posterior cervical chain benign 07/19/2017 None Full Exam - General 1994 Musculoskeletal gait and station Overall: normal gait 07/19/2017 None Full Exam - General 1994 Musculoskeletal gait and station Overall: normal station 07/19/2017 None Full Exam - General 1994 Musculoskeletal head and neck Overall: head atraumatic 07/19/2017 None Full Exam - General 1994 Musculoskeletal head and neck Overall: cervical spine benign 07/19/2017 None Full Exam - General 1994 Neurologic mental status Overall: alert 07/19/2017 None Full Exam - General 1994 Neurologic mental status Overall: oriented 07/19/2017 None Full Exam - General 1994 Neurologic gait Overall: no ataxia, no unsteadiness 07/19/2017 None Full Exam - General 1994 Psychiatric orientation/consciousness Overall: oriented to person, place and time 07/19/2017 None Full Exam - General 1994 Psychiatric mood and affect Overall: normal mood and affect 07/19/2017 None Full Exam - General 1994 Constitutional general appearance Development: well developed 05/19/2017 None Full Exam - General 1994 Constitutional general appearance Development: appears stated age 1005/19/2017 None Full Exam - General 1994 Eyes conjunctiva /eyelids Overall: conjunctiva clear 05/19/2017 None Full Exam - General 1994 Eyes conjunctiva /eyelids Overall: cornea clear 05/19/2017 None Full Exam - General 1994 Eyes conjunctiva /eyelids Overall: eyelids normal 05/19/2017 None Full Exam - General 1994 Eyes pupils and irises Overall: pupils equal, round, reactive to light and accomodation 05/19/2017 None Full Exam - General 1994 Ears/Nose/Throat otoscopic exam Overall: external auditory canals clear 05/19/2017 None Full Exam - General 1994 Ears/Nose/Throat otoscopic exam Overall: tympanic membranes clear 05/19/2017 None Full Exam - General 1994 Ears/Nose/Throat lips/teeth/gingiva Overall: benign lips 05/19/2017 None Full Exam - General 1994 Ears/Nose/Throat lips/teeth/gingiva Overall: normal dentition 05/19/2017 None Full Exam - General 1994 Ears/Nose/Throat oral cavity/pharynx/larynx Overall: oral mucosa clear 05/19/2017 None Full Exam - General 1994 Neck thyroid Overall: normal size None Full Exam - General 1994 Neck thyroid Overall: normal consistency 05/19/2017 None Full Exam - General 1994 Neck thyroid Overall: nontender 2016 None Full Exam - General 1994 Neck inspection of neck Overall: normal size 05/19/2017 None Full Exam - General 1994 Neck inspection of neck Overall: normal appearance 05/19/2017 None Full Exam - General 1994 Neck inspection of neck Overall: no masses 05/19/2017 None Full Exam - General 1994 Respiratory auscultation Overall: breath sounds clear bilaterally 05/19/2017 None Full Exam - General 1994 Respiratory respiratory effort/rhythm Overall: no retractions 05/19/2017 None Full Exam - General 1994 Respiratory respiratory effort/rhythm Overall: normal rate 05/19/2017 None Full Exam - General 1994 Cardiovascular auscultation of heart Overall: regular rate 05/19/2017 None Full Exam - General 1994 Cardiovascular auscultation of heart Overall: normal heart sounds 05/19/2017 None Full Exam - General 1994 Abdomen abdominal exam Overall: no tenderness 05/19/2017 None Full Exam - General 1994 Abdomen abdominal exam Overall: normal bowel sounds 05/19/2017 None Full Exam - General 1994 Lymphatic neck nodes Overall: anterior cervical chain benign 05/19/2017 None Full Exam - General 1994 Lymphatic neck nodes Overall: posterior cervical chain benign 05/19/2017 None Full Exam - General 1994 Musculoskeletal gait and station Overall: normal gait 05/19/2017 None Full Exam - General 1994 Musculoskeletal gait and station Overall: normal station 05/19/2017 None Full Exam - General 1994 Musculoskeletal head and neck Overall: head atraumatic 05/19/2017 None Full Exam - General 1994 Musculoskeletal head and neck Overall: cervical spine benign 05/19/2017 None Full Exam - General 1994 Integument inspection of skin Overall: few scattered moles, no gross abnormalities 05/19/2017 None Full Exam - General 1994 Neurologic mental status Overall: alert 05/19/2017 None Full Exam - General 1994 Neurologic mental status Overall: oriented 05/19/2017 None Full Exam - General 1994 Neurologic gait Overall: no ataxia, no unsteadiness 05/19/2017 None Full Exam - General 1994 Psychiatric orientation/consciousness Overall: oriented to person, place and time 05/19/2017 None Full Exam - General 1994 Psychiatric mood and affect Overall: normal mood and affect 05/19/2017 None Full Exam - General 1994 Constitutional general appearance Development: well developed 02/15/2017 None Full Exam - General 1994 Constitutional general appearance Development: appears stated age 0702/15/2017 None Full Exam - General 1994 Eyes conjunctiva /eyelids Overall: conjunctiva clear 02/15/2017 None Full Exam - General 1994 Eyes conjunctiva /eyelids Overall: cornea clear 02/15/2017 None Full Exam - General 1994 Eyes conjunctiva /eyelids Overall: eyelids normal 02/15/2017 None Full Exam - General 1994 Eyes pupils and irises Overall: pupils equal, round, reactive to light and accomodation 02/15/2017 None Full Exam - General 1994 Ears/Nose/Throat otoscopic exam Overall: external auditory canals clear 02/15/2017 None Full Exam - General 1994 Ears/Nose/Throat otoscopic exam Overall: tympanic membranes clear 02/15/2017 None Full Exam - General 1994 Ears/Nose/Throat lips/teeth/gingiva Overall: benign lips 02/15/2017 None Full Exam - General 1994 Ears/Nose/Throat lips/teeth/gingiva Overall: normal dentition 02/15/2017 None Full Exam - General 1994 Ears/Nose/Throat oral cavity/pharynx/larynx Overall: oral mucosa clear 02/15/2017 None Full Exam - General 1994 Neck thyroid Overall: normal size None Full Exam - General 1994 Neck thyroid Overall: normal consistency 02/15/2017 None Full Exam - General 1994 Neck thyroid Overall: nontender 2016 None Full Exam - General 1994 Neck inspection of neck Overall: normal size 02/15/2017 None Full Exam - General 1994 Neck inspection of neck Overall: normal appearance 02/15/2017 None Full Exam - General 1994 Neck inspection of neck Overall: no masses 02/15/2017 None Full Exam - General 1994 Respiratory auscultation Overall: breath sounds clear bilaterally 02/15/2017 None Full Exam - General 1994 Respiratory respiratory effort/rhythm Overall: no retractions 02/15/2017 None Full Exam - General 1994 Respiratory respiratory effort/rhythm Overall: normal rate 02/15/2017 None Full Exam - General 1994 Cardiovascular auscultation of heart Overall: regular rate 02/15/2017 None Full Exam - General 1994 Cardiovascular auscultation of heart Overall: normal heart sounds 02/15/2017 None Full Exam - General 1994 Abdomen abdominal exam Overall: no tenderness 02/15/2017 None Full Exam - General 1994 Abdomen abdominal exam Overall: normal bowel sounds 02/15/2017 None Full Exam - General 1994 Lymphatic neck nodes Overall: anterior cervical chain benign 02/15/2017 None Full Exam - General 1994 Lymphatic neck nodes Overall: posterior cervical chain benign 02/15/2017 None Full Exam - General 1994 Musculoskeletal gait and station Overall: normal gait 02/15/2017 None Full Exam - General 1994 Musculoskeletal gait and station Overall: normal station 02/15/2017 None Full Exam - General 1994 Musculoskeletal head and neck Overall: head atraumatic 02/15/2017 None Full Exam - General 1994 Musculoskeletal head and neck Overall: cervical spine benign 02/15/2017 None Full Exam - General 1994 Integument inspection of skin Overall: few scattered moles, no gross abnormalities 02/15/2017 None Full Exam - General 1994 Neurologic mental status Overall: alert 02/15/2017 None Full Exam - General 1994 Neurologic mental status Overall: oriented 02/15/2017 None Full Exam - General 1994 Neurologic gait Overall: no ataxia, no unsteadiness 02/15/2017 None Full Exam - General 1994 Psychiatric orientation/consciousness Overall: oriented to person, place and time 02/15/2017 None Full Exam - General 1994 Psychiatric mood and affect Overall: normal mood and affect 02/15/2017 None Full Exam - General 1994 Constitutional general appearance Development: well developed 11/16/2016 None Full Exam - General 1994 Constitutional general appearance Development: appears stated age 0411/16/2016 None Full Exam - General 1994 Eyes conjunctiva /eyelids Overall: conjunctiva clear 11/16/2016 None Full Exam - General 1994 Eyes conjunctiva /eyelids Overall: cornea clear 11/16/2016 None Full Exam - General 1994 Eyes conjunctiva /eyelids Overall: eyelids normal 11/16/2016 None Full Exam - General 1994 Eyes pupils and irises Overall: pupils equal, round, reactive to light and accomodation 11/16/2016 None Full Exam - General 1994 Ears/Nose/Throat otoscopic exam Overall: external auditory canals clear 11/16/2016 None Full Exam - General 1994 Ears/Nose/Throat otoscopic exam Overall: tympanic membranes clear 11/16/2016 None Full Exam - General 1994 Ears/Nose/Throat lips/teeth/gingiva Overall: benign lips 11/16/2016 None Full Exam - General 1994 Ears/Nose/Throat lips/teeth/gingiva Overall: normal dentition 11/16/2016 None Full Exam - General 1994 Ears/Nose/Throat oral cavity/pharynx/larynx Overall: oral mucosa clear 11/16/2016 None Full Exam - General 1994 Neck thyroid Overall: normal size None Full Exam - General 1994 Neck thyroid Overall: nontender 2016 None Full Exam - General 1994 Neck thyroid Overall: normal consistency 11/16/2016 None Full Exam - General 1994 Neck inspection of neck Overall: normal size 11/16/2016 None Full Exam - General 1994 Neck inspection of neck Overall: normal appearance 11/16/2016 None Full Exam - General 1994 Neck inspection of neck Overall: no masses 11/16/2016 None Full Exam - General 1994 Respiratory auscultation Overall: breath sounds clear bilaterally 11/16/2016 None Full Exam - General 1994 Respiratory respiratory effort/rhythm Overall: no retractions 11/16/2016 None Full Exam - General 1994 Respiratory respiratory effort/rhythm Overall: normal rate 11/16/2016 None Full Exam - General 1994 Cardiovascular auscultation of heart Overall: regular rate 11/16/2016 None Full Exam - General 1994 Cardiovascular auscultation of heart Overall: normal heart sounds 11/16/2016 None Full Exam - General 1994 Abdomen abdominal exam Overall: no tenderness 11/16/2016 None Full Exam - General 1994 Abdomen abdominal exam Overall: normal bowel sounds 11/16/2016 None Full Exam - General 1994 Lymphatic neck nodes Overall: anterior cervical chain benign 11/16/2016 None Full Exam - General 1994 Lymphatic neck nodes Overall: posterior cervical chain benign 11/16/2016 None Full Exam - General 1994 Musculoskeletal gait and station Overall: normal gait 11/16/2016 None Full Exam - General 1994 Musculoskeletal gait and station Overall: normal station 11/16/2016 None Full Exam - General 1994 Musculoskeletal head and neck Overall: head atraumatic 11/16/2016 None Full Exam - General 1994 Musculoskeletal head and neck Overall: cervical spine benign 11/16/2016 None Full Exam - General 1994 Integument inspection of skin Overall: few scattered moles, no gross abnormalities 11/16/2016 None Full Exam - General 1994 Neurologic mental status Overall: alert 11/16/2016 None Full Exam - General 1994 Neurologic mental status Overall: oriented 11/16/2016 None Full Exam - General 1994 Neurologic gait Overall: no ataxia, no unsteadiness 11/16/2016 None Full Exam - General 1994 Psychiatric orientation/consciousness Overall: oriented to person, place and time 11/16/2016 None Full Exam - General 1994 Psychiatric mood and affect Overall: normal mood and affect 11/16/2016 None Full Exam - General 1994 Constitutional general appearance Development: well developed 08/19/2016 None Full Exam - General 1994 Constitutional general appearance Development: appears stated age 0108/19/2016 None Full Exam - General 1994 Constitutional general appearance Hygiene/Attention to Grooming: good hygiene 08/19/2016 None Full Exam - General 1994 Eyes conjunctiva /eyelids Overall: conjunctiva clear 08/19/2016 None Full Exam - General 1994 Eyes conjunctiva /eyelids Overall: cornea clear 08/19/2016 None Full Exam - General 1994 Eyes conjunctiva /eyelids Overall: eyelids normal 08/19/2016 None Full Exam - General 1994 Eyes pupils and irises Overall: pupils equal, round, reactive to light and accomodation 08/19/2016 None Full Exam - General 1994 Ears/Nose/Throat otoscopic exam Overall: external auditory canals clear 08/19/2016 None Full Exam - General 1994 Ears/Nose/Throat otoscopic exam Overall: tympanic membranes clear 08/19/2016 None Full Exam - General 1994 Ears/Nose/Throat lips/teeth/gingiva Overall: benign lips 08/19/2016 None Full Exam - General 1994 Ears/Nose/Throat lips/teeth/gingiva Overall: normal dentition 08/19/2016 None Full Exam - General 1994 Ears/Nose/Throat oral cavity/pharynx/larynx Overall: oral mucosa clear 08/19/2016 None Full Exam - General 1994 Ears/Nose/Throat oral cavity/pharynx/larynx Overall: oropharyngeal mucosa clear 08/19/2016 None Full Exam - General 1994 Ears/Nose/Throat oral cavity/pharynx/larynx Overall: no masses 08/19/2016 None Full Exam - General 1994 Respiratory auscultation Overall: breath sounds clear bilaterally 08/19/2016 None Full Exam - General 1994 Respiratory respiratory effort/rhythm Overall: no retractions 08/19/2016 None Full Exam - General 1994 Respiratory respiratory effort/rhythm Overall: normal rate 08/19/2016 None Full Exam - General 1994 Cardiovascular extremities Overall: no clubbing 08/19/2016 None Full Exam - General 1994 Cardiovascular auscultation of heart Overall: regular rate 08/19/2016 None Full Exam - General 1994 Cardiovascular auscultation of heart Overall: normal heart sounds 08/19/2016 None Full Exam - General 1994 Abdomen abdominal exam Overall: no tenderness 08/19/2016 None Full Exam - General 1994 Abdomen abdominal exam Overall: normal bowel sounds 08/19/2016 None Full Exam - General 1994 Musculoskeletal spine, ribs and pelvis Overall: good posture 08/19/2016 None Full Exam - General 1994 Musculoskeletal head and neck Overall: head atraumatic 08/19/2016 None Full Exam - General 1994 Integument inspection of skin Overall: no rash, lesions 08/19/2016 None Full Exam - General 1994 Neurologic gait Conventional walking: wide-based 08/19/2016 None Full Exam - General 1994 Neurologic cranial nerves Overall: crainial nerves 2 - 12 grossly intact 08/19/2016 None Full Exam - General 1994 Psychiatric orientation/consciousness Overall: oriented to person, place and time 08/19/2016 None Full Exam - General 1994 Psychiatric mood and affect Overall: normal mood and affect 08/19/2016 None Full Exam - General 1994 Psychiatric appearance Overall: well-groomed, good eye contact 08/19/2016 None Full Exam - General 1994 Constitutional general appearance Development: well developed 07/15/2016 None Full Exam - General 1994 Constitutional general appearance Development: appears stated age 1207/15/2016 None Full Exam - General 1994 Constitutional general appearance Hygiene/Attention to Grooming: good hygiene 07/15/2016 None Full Exam - General 1994 Eyes conjunctiva /eyelids Overall: conjunctiva clear 07/15/2016 None Full Exam - General 1994 Eyes conjunctiva /eyelids Overall: cornea clear 07/15/2016 None Full Exam - General 1994 Eyes conjunctiva /eyelids Overall: eyelids normal 07/15/2016 None Full Exam - General 1994 Eyes pupils and irises Overall: pupils equal, round, reactive to light and accomodation 07/15/2016 None Full Exam - General 1994 Ears/Nose/Throat otoscopic exam Overall: external auditory canals clear 07/15/2016 None Full Exam - General 1994 Ears/Nose/Throat otoscopic exam Overall: tympanic membranes clear 07/15/2016 None Full Exam - General 1994 Ears/Nose/Throat lips/teeth/gingiva Overall: benign lips 07/15/2016 None Full Exam - General 1994 Ears/Nose/Throat lips/teeth/gingiva Overall: normal dentition 07/15/2016 None Full Exam - General 1994 Ears/Nose/Throat oral cavity/pharynx/larynx Overall: oral mucosa clear 07/15/2016 None Full Exam - General 1994 Ears/Nose/Throat oral cavity/pharynx/larynx Overall: oropharyngeal mucosa clear 07/15/2016 None Full Exam - General 1994 Ears/Nose/Throat oral cavity/pharynx/larynx Overall: no masses 07/15/2016 None Full Exam - General 1994 Respiratory auscultation Overall: breath sounds clear bilaterally 07/15/2016 None Full Exam - General 1994 Respiratory respiratory effort/rhythm Overall: no retractions 07/15/2016 None Full Exam - General 1994 Respiratory respiratory effort/rhythm Overall: normal rate 07/15/2016 None Full Exam - General 1994 Cardiovascular extremities Overall: no clubbing 07/15/2016 None Full Exam - General 1994 Cardiovascular auscultation of heart Overall: regular rate 07/15/2016 None Full Exam - General 1994 Cardiovascular auscultation of heart Overall: normal heart sounds 07/15/2016 None Full Exam - General 1994 Abdomen abdominal exam Overall: no tenderness 07/15/2016 None Full Exam - General 1994 Abdomen abdominal exam Overall: normal bowel sounds 07/15/2016 None Full Exam - General 1994 Musculoskeletal spine, ribs and pelvis Overall: good posture 07/15/2016 None Full Exam - General 1994 Musculoskeletal head and neck Overall: head atraumatic 07/15/2016 None Full Exam - General 1994 Integument inspection of skin Overall: no rash, lesions 07/15/2016 None Full Exam - General 1994 Neurologic gait Conventional walking: wide-based 07/15/2016 None Full Exam - General 1994 Neurologic cranial nerves Overall: crainial nerves 2 - 12 grossly intact 07/15/2016 None Full Exam - General 1994 Psychiatric orientation/consciousness Overall: oriented to person, place and time 07/15/2016 None Full Exam - General 1994 Psychiatric mood and affect Overall: normal mood and affect 07/15/2016 None Full Exam - General 1994 Psychiatric appearance Overall: well-groomed, good eye contact 07/15/2016 None Full Exam - General 1994 Constitutional general appearance Development: well developed 06/03/2016 None Full Exam - General 1994 Constitutional general appearance Development: appears stated age 1106/03/2016 None Full Exam - General 1994 Constitutional general appearance Hygiene/Attention to Grooming: good hygiene 06/03/2016 None Full Exam - General 1994 Eyes conjunctiva /eyelids Overall: conjunctiva clear 06/03/2016 None Full Exam - General 1994 Eyes conjunctiva /eyelids Overall: cornea clear 06/03/2016 None Full Exam - General 1994 Eyes conjunctiva /eyelids Overall: eyelids normal 06/03/2016 None Full Exam - General 1994 Eyes pupils and irises Overall: pupils equal, round, reactive to light and accomodation 06/03/2016 None Full Exam - General 1994 Ears/Nose/Throat otoscopic exam Overall: external auditory canals clear 06/03/2016 None Full Exam - General 1994 Ears/Nose/Throat otoscopic exam Overall: tympanic membranes clear 06/03/2016 None Full Exam - General 1994 Ears/Nose/Throat lips/teeth/gingiva Overall: benign lips 06/03/2016 None Full Exam - General 1994 Ears/Nose/Throat lips/teeth/gingiva Overall: normal dentition 06/03/2016 None Full Exam - General 1994 Ears/Nose/Throat oral cavity/pharynx/larynx Overall: oral mucosa clear 06/03/2016 None Full Exam - General 1994 Ears/Nose/Throat oral cavity/pharynx/larynx Overall: oropharyngeal mucosa clear 06/03/2016 None Full Exam - General 1994 Ears/Nose/Throat oral cavity/pharynx/larynx Overall: no masses 06/03/2016 None Full Exam - General 1994 Respiratory auscultation Overall: breath sounds clear bilaterally 06/03/2016 None Full Exam - General 1994 Respiratory respiratory effort/rhythm Overall: no retractions 06/03/2016 None Full Exam - General 1994 Respiratory respiratory effort/rhythm Overall: normal rate 06/03/2016 None Full Exam - General 1994 Cardiovascular extremities Overall: no clubbing 06/03/2016 None Full Exam - General 1994 Cardiovascular auscultation of heart Overall: regular rate 06/03/2016 None Full Exam - General 1994 Cardiovascular auscultation of heart Overall: normal heart sounds 06/03/2016 None Full Exam - General 1994 Abdomen abdominal exam Overall: no tenderness 06/03/2016 None Full Exam - General 1994 Abdomen abdominal exam Overall: normal bowel sounds 06/03/2016 None Full Exam - General 1994 Musculoskeletal spine, ribs and pelvis Overall: good posture 06/03/2016 None Full Exam - General 1994 Musculoskeletal head and neck Overall: head atraumatic 06/03/2016 None Full Exam - General 1994 Integument inspection of skin Overall: no rash, lesions 06/03/2016 None Full Exam - General 1994 Neurologic cranial nerves Overall: crainial nerves 2 - 12 grossly intact 06/03/2016 None Full Exam - General 1994 Psychiatric orientation/consciousness Overall: oriented to person, place and time 06/03/2016 None Full Exam - General 1994 Psychiatric mood and affect Overall: normal mood and affect 06/03/2016 None Full Exam - General 1994 Psychiatric appearance Overall: well-groomed, good eye contact 06/03/2016 None Full Exam - General 1994 Neurologic sensation Touch: (specify location of deficit): light touch intact bilateral feet and ankles 2015 None Full Exam - General 1994 Neurologic sensation Touch: (specify location of deficit): vibration decreased at great toes bilaterally - but intact at ankles 06/03/2016 None Full Exam - General 1994 Neurologic sensation Touch: (specify location of deficit): point localization intact on heels, decreased great toes bilaterally 06/03/2016 None Full Exam - General 1994 Neurologic sensation Touch: (specify location of deficit): stereognosis intact bilaterally 06/03/2016 None Full Exam - General 1994 Neurologic gait Conventional walking: wide-based 06/03/2016 None Full Exam - General 1994 Constitutional general appearance Development: well developed 04/22/2016 None Full Exam - General 1994 Constitutional general appearance Development: appears stated age 0904/22/2016 None Full Exam - General 1994 Constitutional general appearance Hygiene/Attention to Grooming: good hygiene 04/22/2016 None Full Exam - General 1994 Eyes conjunctiva /eyelids Overall: conjunctiva clear 04/22/2016 None Full Exam - General 1994 Eyes conjunctiva /eyelids Overall: cornea clear 04/22/2016 None Full Exam - General 1994 Eyes conjunctiva /eyelids Overall: eyelids normal 04/22/2016 None Full Exam - General 1994 Eyes pupils and irises Overall: pupils equal, round, reactive to light and accomodation 04/22/2016 None Full Exam - General 1994 Ears/Nose/Throat otoscopic exam Overall: external auditory canals clear 04/22/2016 None Full Exam - General 1994 Ears/Nose/Throat otoscopic exam Overall: tympanic membranes clear 04/22/2016 None Full Exam - General 1994 Ears/Nose/Throat lips/teeth/gingiva Overall: benign lips 04/22/2016 None Full Exam - General 1994 Ears/Nose/Throat lips/teeth/gingiva Overall: normal dentition 04/22/2016 None Full Exam - General 1994 Ears/Nose/Throat oral cavity/pharynx/larynx Overall: oral mucosa clear 04/22/2016 None Full Exam - General 1994 Ears/Nose/Throat oral cavity/pharynx/larynx Overall: oropharyngeal mucosa clear 04/22/2016 None Full Exam - General 1994 Ears/Nose/Throat oral cavity/pharynx/larynx Overall: no masses 04/22/2016 None Full Exam - General 1994 Respiratory auscultation Overall: breath sounds clear bilaterally 04/22/2016 None Full Exam - General 1994 Respiratory respiratory effort/rhythm Overall: no retractions 04/22/2016 None Full Exam - General 1994 Respiratory respiratory effort/rhythm Overall: normal rate 04/22/2016 None Full Exam - General 1994 Cardiovascular extremities Overall: no clubbing 04/22/2016 None Full Exam - General 1994 Cardiovascular auscultation of heart Overall: regular rate 04/22/2016 None Full Exam - General 1994 Cardiovascular auscultation of heart Overall: normal heart sounds 04/22/2016 None Full Exam - General 1994 Abdomen abdominal exam Overall: no tenderness 04/22/2016 None Full Exam - General 1994 Abdomen abdominal exam Overall: normal bowel sounds 04/22/2016 None Full Exam - General 1994 Musculoskeletal spine, ribs and pelvis Overall: good posture 04/22/2016 None Full Exam - General 1994 Musculoskeletal head and neck Overall: head atraumatic 04/22/2016 None Full Exam - General 1994 Integument inspection of skin Overall: no rash, lesions 04/22/2016 None Full Exam - General 1994 Neurologic cranial nerves Overall: crainial nerves 2 - 12 grossly intact 04/22/2016 None Full Exam - General 1994 Psychiatric orientation/consciousness Overall: oriented to person, place and time 04/22/2016 None Full Exam - General 1994 Psychiatric mood and affect Overall: normal mood and affect 04/22/2016 None Full Exam - General 1994 Psychiatric appearance Overall: well-groomed, good eye contact 04/22/2016 None Full Exam - General 1994 Constitutional general appearance Development: well developed 01/22/2016 None Full Exam - General 1994 Constitutional general appearance Development: appears stated age 0601/22/2016 None Full Exam - General 1994 Constitutional general appearance Hygiene/Attention to Grooming: good hygiene 01/22/2016 None Full Exam - General 1994 Eyes conjunctiva /eyelids Overall: conjunctiva clear 01/22/2016 None Full Exam - General 1994 Eyes conjunctiva /eyelids Overall: cornea clear 01/22/2016 None Full Exam - General 1994 Eyes conjunctiva /eyelids Overall: eyelids normal 01/22/2016 None Full Exam - General 1994 Eyes pupils and irises Overall: pupils equal, round, reactive to light and accomodation 01/22/2016 None Full Exam - General 1994 Ears/Nose/Throat lips/teeth/gingiva Overall: benign lips 01/22/2016 None Full Exam - General 1994 Ears/Nose/Throat lips/teeth/gingiva Overall: normal dentition 01/22/2016 None Full Exam - General 1994 Ears/Nose/Throat oral cavity/pharynx/larynx Overall: oral mucosa clear 01/22/2016 None Full Exam - General 1994 Ears/Nose/Throat oral cavity/pharynx/larynx Overall: oropharyngeal mucosa clear 01/22/2016 None Full Exam - General 1994 Ears/Nose/Throat oral cavity/pharynx/larynx Overall: no masses 01/22/2016 None Full Exam - General 1994 Respiratory auscultation Overall: breath sounds clear bilaterally 01/22/2016 None Full Exam - General 1994 Respiratory respiratory effort/rhythm Overall: no retractions 01/22/2016 None Full Exam - General 1994 Respiratory respiratory effort/rhythm Overall: normal rate 01/22/2016 None Full Exam - General 1994 Cardiovascular extremities Overall: no clubbing 01/22/2016 None Full Exam - General 1994 Cardiovascular auscultation of heart Overall: regular rate 01/22/2016 None Full Exam - General 1994 Cardiovascular auscultation of heart Overall: normal heart sounds 01/22/2016 None Full Exam - General 1994 Abdomen abdominal exam Overall: no tenderness 01/22/2016 None Full Exam - General 1994 Abdomen abdominal exam Overall: normal bowel sounds 01/22/2016 None Full Exam - General 1994 Musculoskeletal spine, ribs and pelvis Overall: good posture 01/22/2016 None Full Exam - General 1994 Musculoskeletal head and neck Overall: head atraumatic 01/22/2016 None Full Exam - General 1994 Neurologic cranial nerves Overall: crainial nerves 2 - 12 grossly intact 01/22/2016 None Full Exam - General 1994 Psychiatric orientation/consciousness Overall: oriented to person, place and time 01/22/2016 None Full Exam - General 1994 Psychiatric mood and affect Overall: normal mood and affect 01/22/2016 None Full Exam - General 1994 Ears/Nose/Throat otoscopic exam Overall: tympanic membranes clear 01/22/2016 None Full Exam - General 1994 Ears/Nose/Throat otoscopic exam Overall: external auditory canals clear 01/22/2016 None Full Exam - General 1994 Integument inspection of skin Overall: no rash, lesions 01/22/2016 None Full Exam - General 1994 Psychiatric appearance Overall: well-groomed, good eye contact 01/22/2016 None Full Exam - General 1994 Constitutional general appearance Development: well developed 10/23/2015 None Full Exam - General 1994 Constitutional general appearance Development: appears stated age 0310/23/2015 None Full Exam - General 1994 Constitutional general appearance Hygiene/Attention to Grooming: good hygiene 10/23/2015 None Full Exam - General 1994 Eyes conjunctiva /eyelids Overall: conjunctiva clear 10/23/2015 None Full Exam - General 1994 Eyes conjunctiva /eyelids Overall: cornea clear 10/23/2015 None Full Exam - General 1994 Eyes conjunctiva /eyelids Overall: eyelids normal 10/23/2015 None Full Exam - General 1994 Eyes pupils and irises Overall: pupils equal, round, reactive to light and accomodation 10/23/2015 None Full Exam - General 1994 Ears/Nose/Throat otoscopic exam External auditory canal: a normal exam 10/23/2015 None Full Exam - General 1994 Ears/Nose/Throat otoscopic exam External auditory canal: narrowed 10/23/2015 None Full Exam - General 1994 Ears/Nose/Throat otoscopic exam Tympanic membrane: a normal exam 10/23/2015 None Full Exam - General 1994 Ears/Nose/Throat lips/teeth/gingiva Overall: benign lips 10/23/2015 None Full Exam - General 1994 Ears/Nose/Throat lips/teeth/gingiva Overall: normal dentition 10/23/2015 None Full Exam - General 1994 Ears/Nose/Throat oral cavity/pharynx/larynx Overall: oral mucosa clear 10/23/2015 None Full Exam - General 1994 Ears/Nose/Throat oral cavity/pharynx/larynx Overall: oropharyngeal mucosa clear 10/23/2015 None Full Exam - General 1994 Ears/Nose/Throat oral cavity/pharynx/larynx Overall: no masses 10/23/2015 None Full Exam - General 1994 Respiratory auscultation Overall: breath sounds clear bilaterally 10/23/2015 None Full Exam - General 1994 Respiratory respiratory effort/rhythm Overall: no retractions 10/23/2015 None Full Exam - General 1994 Respiratory respiratory effort/rhythm Overall: normal rate 10/23/2015 None Full Exam - General 1994 Cardiovascular extremities Overall: no clubbing 10/23/2015 None Full Exam - General 1994 Cardiovascular auscultation of heart Overall: regular rate 10/23/2015 None Full Exam - General 1994 Cardiovascular auscultation of heart Overall: normal heart sounds 10/23/2015 None Full Exam - General 1994 Abdomen abdominal exam Overall: no tenderness 10/23/2015 None Full Exam - General 1994 Abdomen abdominal exam Overall: normal bowel sounds 10/23/2015 None Full Exam - General 1994 Lymphatic neck nodes Overall: anterior cervical chain benign 10/23/2015 None Full Exam - General 1994 Lymphatic neck nodes Overall: posterior cervical chain benign 10/23/2015 None Full Exam - General 1994 Musculoskeletal spine, ribs and pelvis Overall: spine benign 10/23/2015 None Full Exam - General 1994 Musculoskeletal spine, ribs and pelvis Overall: sacroiliac joint benign 10/23/2015 None Full Exam - General 1994 Musculoskeletal spine, ribs and pelvis Overall: good posture 10/23/2015 None Full Exam - General 1994 Musculoskeletal head and neck Overall: head atraumatic 10/23/2015 None Full Exam - General 1994 Musculoskeletal head and neck Overall: cervical spine benign 10/23/2015 None Full Exam - General 1994 Integument inspection of skin Overall: few scattered moles, no gross abnormalities 10/23/2015 None Full Exam - General 1994 Neurologic cranial nerves Overall: crainial nerves 2 - 12 grossly intact 10/23/2015 None Full Exam - General 1994 Psychiatric orientation/consciousness Overall: oriented to person, place and time 10/23/2015 None Full Exam - General 1994 Psychiatric mood and affect Overall: normal mood and affect 10/23/2015 None Full Exam - General 1994 Constitutional general appearance Development: well developed 09/12/2015 None Full Exam - General 1994 Constitutional general appearance Development: appears stated age 0209/12/2015 None Full Exam - General 1994 Constitutional general appearance Hygiene/Attention to Grooming: good hygiene 09/12/2015 None Full Exam - General 1994 Eyes conjunctiva /eyelids Overall: conjunctiva clear 09/12/2015 None Full Exam - General 1994 Eyes conjunctiva /eyelids Overall: cornea clear 09/12/2015 None Full Exam - General 1994 Eyes conjunctiva /eyelids Overall: eyelids normal 09/12/2015 None Full Exam - General 1994 Eyes pupils and irises Overall: pupils equal, round, reactive to light and accomodation 09/12/2015 None Full Exam - General 1994 Ears/Nose/Throat otoscopic exam External auditory canal: a normal exam 09/12/2015 None Full Exam - General 1994 Ears/Nose/Throat otoscopic exam External auditory canal: narrowed 09/12/2015 None Full Exam - General 1994 Ears/Nose/Throat otoscopic exam Tympanic membrane: a normal exam 09/12/2015 None Full Exam - General 1994 Ears/Nose/Throat lips/teeth/gingiva Overall: benign lips 09/12/2015 None Full Exam - General 1994 Ears/Nose/Throat lips/teeth/gingiva Overall: normal dentition 09/12/2015 None Full Exam - General 1994 Ears/Nose/Throat oral cavity/pharynx/larynx Overall: oral mucosa clear 09/12/2015 None Full Exam - General 1994 Ears/Nose/Throat oral cavity/pharynx/larynx Overall: oropharyngeal mucosa clear 09/12/2015 None Full Exam - General 1994 Ears/Nose/Throat oral cavity/pharynx/larynx Overall: no masses 09/12/2015 None Full Exam - General 1994 Respiratory auscultation Overall: breath sounds clear bilaterally 09/12/2015 None Full Exam - General 1994 Respiratory respiratory effort/rhythm Overall: no retractions 09/12/2015 None Full Exam - General 1994 Respiratory respiratory effort/rhythm Overall: normal rate 09/12/2015 None Full Exam - General 1994 Cardiovascular extremities Overall: no clubbing 09/12/2015 None Full Exam - General 1994 Cardiovascular auscultation of heart Overall: regular rate 09/12/2015 None Full Exam - General 1994 Cardiovascular auscultation of heart Overall: normal heart sounds 09/12/2015 None Full Exam - General 1994 Abdomen abdominal exam Overall: no tenderness 09/12/2015 None Full Exam - General 1994 Abdomen abdominal exam Overall: normal bowel sounds 09/12/2015 None Full Exam - General 1994 Lymphatic neck nodes Overall: anterior cervical chain benign 09/12/2015 None Full Exam - General 1994 Lymphatic neck nodes Overall: posterior cervical chain benign 09/12/2015 None Full Exam - General 1994 Musculoskeletal spine, ribs and pelvis Overall: spine benign 09/12/2015 None Full Exam - General 1994 Musculoskeletal spine, ribs and pelvis Overall: sacroiliac joint benign 09/12/2015 None Full Exam - General 1994 Musculoskeletal spine, ribs and pelvis Overall: good posture 09/12/2015 None Full Exam - General 1994 Musculoskeletal head and neck Overall: head atraumatic 09/12/2015 None Full Exam - General 1994 Musculoskeletal head and neck Overall: cervical spine benign 09/12/2015 None Full Exam - General 1994 Integument inspection of skin Overall: few scattered moles, no gross abnormalities 09/12/2015 None Full Exam - General 1994 Neurologic cranial nerves Overall: crainial nerves 2 - 12 grossly intact 09/12/2015 None Full Exam - General 1994 Psychiatric orientation/consciousness Overall: oriented to person, place and time 09/12/2015 None Full Exam - General 1994 Psychiatric mood and affect Overall: normal mood and affect 09/12/2015 None Full Exam - General 1994 Constitutional general appearance Development: well developed 08/05/2015 None Full Exam - General 1994 Constitutional general appearance Development: appears stated age 0108/05/2015 None Full Exam - General 1994 Constitutional general appearance Hygiene/Attention to Grooming: good hygiene 08/05/2015 None Full Exam - General 1994 Eyes conjunctiva /eyelids Overall: conjunctiva clear 08/05/2015 None Full Exam - General 1994 Eyes conjunctiva /eyelids Overall: cornea clear 08/05/2015 None Full Exam - General 1994 Eyes conjunctiva /eyelids Overall: eyelids normal 08/05/2015 None Full Exam - General 1994 Eyes pupils and irises Overall: pupils equal, round, reactive to light and accomodation 08/05/2015 None Full Exam - General 1994 Ears/Nose/Throat otoscopic exam External auditory canal: a normal exam 08/05/2015 None Full Exam - General 1994 Ears/Nose/Throat otoscopic exam External auditory canal: narrowed 08/05/2015 None Full Exam - General 1994 Ears/Nose/Throat otoscopic exam Tympanic membrane: a normal exam 08/05/2015 None Full Exam - General 1994 Ears/Nose/Throat lips/teeth/gingiva Overall: benign lips 08/05/2015 None Full Exam - General 1994 Ears/Nose/Throat lips/teeth/gingiva Overall: normal dentition 08/05/2015 None Full Exam - General 1994 Ears/Nose/Throat oral cavity/pharynx/larynx Overall: oral mucosa clear 08/05/2015 None Full Exam - General 1994 Ears/Nose/Throat oral cavity/pharynx/larynx Overall: oropharyngeal mucosa clear 08/05/2015 None Full Exam - General 1994 Ears/Nose/Throat oral cavity/pharynx/larynx Overall: hypopharynx benign 08/05/2015 None Full Exam - General 1994 Ears/Nose/Throat oral cavity/pharynx/larynx Overall: no masses 08/05/2015 None Full Exam - General 1994 Respiratory auscultation Overall: breath sounds clear bilaterally 08/05/2015 None Full Exam - General 1994 Respiratory respiratory effort/rhythm Overall: no retractions 08/05/2015 None Full Exam - General 1994 Respiratory respiratory effort/rhythm Overall: normal rate 08/05/2015 None Full Exam - General 1994 Cardiovascular extremities Overall: no clubbing 08/05/2015 None Full Exam - General 1994 Cardiovascular auscultation of heart Overall: regular rate 08/05/2015 None Full Exam - General 1994 Cardiovascular auscultation of heart Overall: normal heart sounds 08/05/2015 None Full Exam - General 1994 Abdomen abdominal exam Overall: no tenderness 08/05/2015 None Full Exam - General 1994 Abdomen abdominal exam Overall: normal bowel sounds 08/05/2015 None Full Exam - General 1994 Lymphatic neck nodes Overall: anterior cervical chain benign 08/05/2015 None Full Exam - General 1994 Lymphatic neck nodes Overall: posterior cervical chain benign 08/05/2015 None Full Exam - General 1994 Musculoskeletal spine, ribs and pelvis Overall: spine benign 08/05/2015 None Full Exam - General 1994 Musculoskeletal spine, ribs and pelvis Overall: sacroiliac joint benign 08/05/2015 None Full Exam - General 1994 Musculoskeletal spine, ribs and pelvis Overall: good posture 08/05/2015 None Full Exam - General 1994 Musculoskeletal head and neck Overall: head atraumatic 08/05/2015 None Full Exam - General 1994 Musculoskeletal head and neck Overall: cervical spine benign 08/05/2015 None Full Exam - General 1994 Integument inspection of skin Overall: few scattered moles, no gross abnormalities 08/05/2015 None Full Exam - General 1994 Neurologic deep tendon reflexes Overall: deep tendon reflexes intact 08/05/2015 None Full Exam - General 1994 Neurologic cranial nerves Overall: crainial nerves 2 - 12 grossly intact 08/05/2015 None Full Exam - General 1994 Psychiatric orientation/consciousness Overall: oriented to person, place and time 08/05/2015 None Full Exam - General 1994 Psychiatric mood and affect Overall: normal mood and affect 08/05/2015 None Full Exam - General 1994 Constitutional general appearance Development: well developed 04/03/2015 None Full Exam - General 1994 Constitutional general appearance Development: appears stated age 0904/03/2015 None Full Exam - General 1994 Constitutional general appearance Hygiene/Attention to Grooming: good hygiene 04/03/2015 None Full Exam - General 1994 Eyes conjunctiva /eyelids Overall: conjunctiva clear 04/03/2015 None Full Exam - General 1994 Eyes conjunctiva /eyelids Overall: cornea clear 04/03/2015 None Full Exam - General 1994 Eyes conjunctiva /eyelids Overall: eyelids normal 04/03/2015 None Full Exam - General 1994 Eyes pupils and irises Overall: pupils equal, round, reactive to light and accomodation 04/03/2015 None Full Exam - General 1994 Ears/Nose/Throat otoscopic exam External auditory canal: a normal exam 04/03/2015 None Full Exam - General 1994 Ears/Nose/Throat otoscopic exam Tympanic membrane: a normal exam 04/03/2015 None Full Exam - General 1994 Ears/Nose/Throat otoscopic exam Tympanic membrane: not visualized 04/03/2015 None Full Exam - General 1994 Ears/Nose/Throat lips/teeth/gingiva Overall: benign lips 04/03/2015 None Full Exam - General 1994 Ears/Nose/Throat lips/teeth/gingiva Overall: normal dentition 04/03/2015 None Full Exam - General 1994 Ears/Nose/Throat oral cavity/pharynx/larynx Overall: oral mucosa clear 04/03/2015 None Full Exam - General 1994 Ears/Nose/Throat oral cavity/pharynx/larynx Overall: oropharyngeal mucosa clear 04/03/2015 None Full Exam - General 1994 Ears/Nose/Throat oral cavity/pharynx/larynx Overall: hypopharynx benign 04/03/2015 None Full Exam - General 1994 Ears/Nose/Throat oral cavity/pharynx/larynx Overall: no masses 04/03/2015 None Full Exam - General 1994 Respiratory auscultation Overall: breath sounds clear bilaterally 04/03/2015 None Full Exam - General 1994 Respiratory respiratory effort/rhythm Overall: no retractions 04/03/2015 None Full Exam - General 1994 Respiratory respiratory effort/rhythm Overall: normal rate 04/03/2015 None Full Exam - General 1994 Cardiovascular extremities Overall: no clubbing 04/03/2015 None Full Exam - General 1994 Cardiovascular auscultation of heart Overall: regular rate 04/03/2015 None Full Exam - General 1994 Cardiovascular auscultation of heart Overall: normal heart sounds 04/03/2015 None Full Exam - General 1994 Abdomen abdominal exam Overall: no tenderness 04/03/2015 None Full Exam - General 1994 Abdomen abdominal exam Overall: normal bowel sounds 04/03/2015 None Full Exam - General 1994 Lymphatic neck nodes Overall: anterior cervical chain benign 04/03/2015 None Full Exam - General 1994 Lymphatic neck nodes Overall: posterior cervical chain benign 04/03/2015 None Full Exam - General 1994 Musculoskeletal spine, ribs and pelvis Overall: spine benign 04/03/2015 None Full Exam - General 1994 Musculoskeletal spine, ribs and pelvis Overall: sacroiliac joint benign 04/03/2015 None Full Exam - General 1994 Musculoskeletal spine, ribs and pelvis Overall: good posture 04/03/2015 None Full Exam - General 1994 Musculoskeletal head and neck Overall: head atraumatic 04/03/2015 None Full Exam - General 1994 Musculoskeletal head and neck Overall: cervical spine benign 04/03/2015 None Full Exam - General 1994 Integument inspection of skin Overall: few scattered moles, no gross abnormalities 04/03/2015 None Full Exam - General 1994 Neurologic deep tendon reflexes Overall: deep tendon reflexes intact 04/03/2015 None Full Exam - General 1994 Neurologic cranial nerves Overall: crainial nerves 2 - 12 grossly intact 04/03/2015 None Full Exam - General 1994 Psychiatric orientation/consciousness Overall: oriented to person, place and time 04/03/2015 None Full Exam - General 1994 Psychiatric mood and affect Overall: normal mood and affect 04/03/2015 None Full Exam - General 1994 Ears/Nose/Throat otoscopic exam External auditory canal: narrowed 04/03/2015 None Full Exam - General 1994 Constitutional general appearance Development: well developed 01/30/2015 None Full Exam - General 1994 Constitutional general appearance Development: appears stated age 0701/30/2015 None Full Exam - General 1994 Constitutional general appearance Hygiene/Attention to Grooming: good hygiene 01/30/2015 None Full Exam - General 1994 Eyes conjunctiva /eyelids Overall: conjunctiva clear 01/30/2015 None Full Exam - General 1994 Eyes conjunctiva /eyelids Overall: cornea clear 01/30/2015 None Full Exam - General 1994 Eyes conjunctiva /eyelids Overall: eyelids normal 01/30/2015 None Full Exam - General 1994 Eyes pupils and irises Overall: pupils equal, round, reactive to light and accomodation 01/30/2015 None Full Exam - General 1995 Ears/Nose/Throat lips/teeth/gingiva Overall: benign lips 01/30/2015 None Full Exam - General 1994 Ears/Nose/Throat lips/teeth/gingiva Overall: normal dentition 01/30/2015 None Full Exam - General 1994 Ears/Nose/Throat oral cavity/pharynx/larynx Overall: oral mucosa clear 01/30/2015 None Full Exam - General 1994 Ears/Nose/Throat oral cavity/pharynx/larynx Overall: oropharyngeal mucosa clear 01/30/2015 None Full Exam - General 1994 Ears/Nose/Throat oral cavity/pharynx/larynx Overall: hypopharynx benign 01/30/2015 None Full Exam - General 1994 Ears/Nose/Throat oral cavity/pharynx/larynx Overall: no masses 01/30/2015 None Full Exam - General 1994 Respiratory auscultation Overall: breath sounds clear bilaterally 01/30/2015 None Full Exam - General 1994 Respiratory respiratory effort/rhythm Overall: no retractions 01/30/2015 None Full Exam - General 1994 Respiratory respiratory effort/rhythm Overall: normal rate 01/30/2015 None Full Exam - General 1994 Cardiovascular extremities Overall: no clubbing 01/30/2015 None Full Exam - General 1994 Cardiovascular auscultation of heart Overall: regular rate 01/30/2015 None Full Exam - General 1994 Cardiovascular auscultation of heart Overall: normal heart sounds 01/30/2015 None Full Exam - General 1994 Abdomen abdominal exam Overall: no tenderness 01/30/2015 None Full Exam - General 1994 Abdomen abdominal exam Overall: normal bowel sounds 01/30/2015 None Full Exam - General 1994 Lymphatic neck nodes Overall: anterior cervical chain benign 01/30/2015 None Full Exam - General 1994 Lymphatic neck nodes Overall: posterior cervical chain benign 01/30/2015 None Full Exam - General 1994 Musculoskeletal spine, ribs and pelvis Overall: spine benign 01/30/2015 None Full Exam - General 1994 Musculoskeletal spine, ribs and pelvis Overall: sacroiliac joint benign 01/30/2015 None Full Exam - General 1994 Musculoskeletal spine, ribs and pelvis Overall: good posture 01/30/2015 None Full Exam - General 1994 Musculoskeletal head and neck Overall: head atraumatic 01/30/2015 None Full Exam - General 1994 Musculoskeletal head and neck Overall: cervical spine benign 01/30/2015 None Full Exam - General 1994 Integument inspection of skin Overall: few scattered moles, no gross abnormalities 01/30/2015 None Full Exam - General 1994 Neurologic deep tendon reflexes Overall: deep tendon reflexes intact 01/30/2015 None Full Exam - General 1994 Neurologic cranial nerves Overall: crainial nerves 2 - 12 grossly intact 01/30/2015 None Full Exam - General 1994 Psychiatric orientation/consciousness Overall: oriented to person, place and time 01/30/2015 None Full Exam - General 1994 Psychiatric mood and affect Overall: normal mood and affect 01/30/2015 None Full Exam - General 1994 Ears/Nose/Throat otoscopic exam External auditory canal: a normal exam 01/30/2015 None Full Exam - General 1994 Ears/Nose/Throat otoscopic exam Tympanic membrane: a normal exam 01/30/2015 None Full Exam - General 1994 Ears/Nose/Throat otoscopic exam Tympanic membrane: not visualized 01/30/2015 None Full Exam - General 1994 Ears/Nose/Throat otoscopic exam External auditory canal: narrowed 01/30/2015 after cerumen removed Full Exam - General 1994 Constitutional general appearance Development: well developed 01/02/2015 None Full Exam - General 1994 Constitutional general appearance Development: appears stated age 0601/02/2015 None Full Exam - General 1994 Constitutional general appearance Hygiene/Attention to Grooming: good hygiene 01/02/2015 None Full Exam - General 1994 Eyes conjunctiva /eyelids Overall: conjunctiva clear 01/02/2015 None Full Exam - General 1994 Eyes conjunctiva /eyelids Overall: cornea clear 01/02/2015 None Full Exam - General 1994 Eyes conjunctiva /eyelids Overall: eyelids normal 01/02/2015 None Full Exam - General 1994 Eyes pupils and irises Overall: pupils equal, round, reactive to light and accomodation 01/02/2015 None Full Exam - General 1994 Ears/Nose/Throat lips/teeth/gingiva Overall: benign lips 01/02/2015 None Full Exam - General 1994 Ears/Nose/Throat lips/teeth/gingiva Overall: normal dentition 01/02/2015 None Full Exam - General 1994 Ears/Nose/Throat oral cavity/pharynx/larynx Overall: oral mucosa clear 01/02/2015 None Full Exam - General 1994 Ears/Nose/Throat oral cavity/pharynx/larynx Overall: oropharyngeal mucosa clear 01/02/2015 None Full Exam - General 1994 Ears/Nose/Throat oral cavity/pharynx/larynx Overall: hypopharynx benign 01/02/2015 None Full Exam - General 1994 Ears/Nose/Throat oral cavity/pharynx/larynx Overall: no masses 01/02/2015 None Full Exam - General 1994 Respiratory auscultation Overall: breath sounds clear bilaterally 01/02/2015 None Full Exam - General 1994 Respiratory respiratory effort/rhythm Overall: no retractions 01/02/2015 None Full Exam - General 1994 Respiratory respiratory effort/rhythm Overall: normal rate 01/02/2015 None Full Exam - General 1994 Cardiovascular extremities Overall: no clubbing 01/02/2015 None Full Exam - General 1994 Cardiovascular auscultation of heart Overall: regular rate 01/02/2015 None Full Exam - General 1994 Cardiovascular auscultation of heart Overall: normal heart sounds 01/02/2015 None Full Exam - General 1994 Abdomen abdominal exam Overall: no tenderness 01/02/2015 None Full Exam - General 1994 Abdomen abdominal exam Overall: normal bowel sounds 01/02/2015 None Full Exam - General 1994 Lymphatic neck nodes Overall: anterior cervical chain benign 01/02/2015 None Full Exam - General 1994 Lymphatic neck nodes Overall: posterior cervical chain benign 01/02/2015 None Full Exam - General 1994 Musculoskeletal spine, ribs and pelvis Overall: spine benign 01/02/2015 None Full Exam - General 1994 Musculoskeletal spine, ribs and pelvis Overall: sacroiliac joint benign 01/02/2015 None Full Exam - General 1994 Musculoskeletal spine, ribs and pelvis Overall: good posture 01/02/2015 None Full Exam - General 1994 Musculoskeletal head and neck Overall: head atraumatic 01/02/2015 None Full Exam - General 1994 Musculoskeletal head and neck Overall: cervical spine benign 01/02/2015 None Full Exam - General 1994 Integument inspection of skin Overall: few scattered moles, no gross abnormalities 01/02/2015 None Full Exam - General 1994 Neurologic deep tendon reflexes Overall: deep tendon reflexes intact 01/02/2015 None Full Exam - General 1994 Neurologic cranial nerves Overall: crainial nerves 2 - 12 grossly intact 01/02/2015 None Full Exam - General 1994 Psychiatric orientation/consciousness Overall: oriented to person, place and time 01/02/2015 None Full Exam - General 1994 Psychiatric mood and affect Overall: normal mood and affect 01/02/2015 None Full Exam - General 1994 Ears/Nose/Throat otoscopic exam External auditory canal: complete cerumen impaction 01/02/2015 None Procedures Procedure Codes Date GLUC MONITOR CONT PHYS I&R CPT-4: 72090 06/05/2018 GLUCOSE MONITORING CONT CPT-4: 02347 05/22/2018 THER/PROPH/DIAG INJ SC/IM CPT-4: 60586 01/12/2018 VITAMIN B12 INJECTION CPT-4: J3420 01/12/2018 THER/PROPH/DIAG INJ SC/IM CPT-4: 15518 09/15/2017 VITAMIN B12 INJECTION CPT-4: J3420 09/15/2017 THER/PROPH/DIAG INJ SC/IM CPT-4: 38087 08/17/2017 VITAMIN B12 INJECTION CPT-4: J3420 08/17/2017 THER/PROPH/DIAG INJ SC/IM CPT-4: 38348 07/19/2017 VITAMIN B12 INJECTION CPT-4: J3420 07/19/2017 THER/PROPH/DIAG INJ SC/IM CPT-4: 30857 05/19/2017 VITAMIN B12 INJECTION CPT-4: J3420 05/19/2017 THER/PROPH/DIAG INJ SC/IM CPT-4: 66230 04/06/2017 VITAMIN B12 INJECTION CPT-4: J3420 04/06/2017 THER/PROPH/DIAG INJ SC/IM CPT-4: 27114 01/04/2017 VITAMIN B12 INJECTION CPT-4: J3420 01/04/2017 THER/PROPH/DIAG INJ SC/IM CPT-4: 71883 12/10/2016 VITAMIN B12 INJECTION CPT-4: J3420 12/10/2016 THER/PROPH/DIAG INJ SC/IM CPT-4: 46997 10/13/2016 TRIAMCINOLONE ACET INJ NOS CPT-4: J3301 10/13/2016 THER/PROPH/DIAG INJ SC/IM CPT-4: 85081 09/03/2016 VITAMIN B12 INJECTION CPT-4: J3420 09/03/2016 THER/PROPH/DIAG INJ SC/IM CPT-4: 28041 07/29/2016 VITAMIN B12 INJECTION CPT-4: J3420 07/29/2016 THER/PROPH/DIAG INJ SC/IM CPT-4: 22335 06/03/2016 VITAMIN B12 INJECTION CPT-4: J3420 06/03/2016 PNEUMOCOCCAL VACC [address]: 89018359 CPT-4: 63047 04/22/2016 ADMIN PNEUMOCOCCAL VACCINE SNOMED CT: 35143650 CPT-4: G0009 04/22/2016 VITAMIN B12 INJECTION CPT-4: J3420 09/15/2015 THER/PROPH/DIAG INJ SC/IM CPT-4: 75836 09/15/2015 THER/PROPH/DIAG INJ SC/IM CPT-4: 52401 09/08/2015 VITAMIN B12 INJECTION CPT-4: J3420 09/08/2015 THER/PROPH/DIAG INJ SC/IM CPT-4: 84378 09/01/2015 VITAMIN B12 INJECTION CPT-4: J3420 09/01/2015 THER/PROPH/DIAG INJ SC/IM CPT-4: 70285 08/25/2015 VITAMIN B12 INJECTION CPT-4: J3420 08/25/2015 Vital Signs Date Vital 06/05/2018 Blood Pressure 1: 132/70 Code : 8480-6 BMI: 41.6 Code : 50601-2 Heart Rate 1 : 70 bpm Height: 4'11" SpO2: 96% Weight: 206 lbs 05/22/2018 Blood Pressure 1: 148/72 Code : 8480-6 BMI: 41.6 Code : 81742-2 Heart Rate 1 : 82 bpm Height: 4'11" SpO2: 95% Weight: 206 lbs 05/15/2018 Blood Pressure 1: 140/80 Code : 8480-6 BMI: 41.6 Code : 74781-4 Heart Rate 1 : 86 bpm Height: 4'11" SpO2: 92% Weight: 206 lbs 01/12/2018 Blood Pressure 1: 140/78 Code : 8480-6 BMI: 42.2 Code : 85163-9 Heart Rate 1 : 73 bpm Height: 4'11" SpO2: 97% Weight: 209 lbs 11/25/2017 Blood Pressure 1: 140/68 Code : 8480-6 BMI: 42.2 Code : 90083-1 Heart Rate 1 : 76 bpm Height: 4'11" SpO2: 94% Weight: 209 lbs 09/15/2017 Blood Pressure 1: 146/67 Code : 8480-6 BMI: 42.2 Code : 09057-0 Heart Rate 1 : 69 bpm Height: 4'11" SpO2: 97% Weight: 209 lbs 08/17/2017 Blood Pressure 1: 144/70 Code : 8480-6 BMI: 41.8 Code : 46845-5 Heart Rate 1 : 63 bpm Height: 4'11" SpO2: 97% Weight: 207 lbs 07/19/2017 Blood Pressure 1: 142/74 Code : 8480-6 BMI: 41.4 Code : 47621-3 Heart Rate 1 : 71 bpm Height: 4'11" SpO2: 96% Weight: 205 lbs 05/19/2017 Blood Pressure 1: 148/76 Code : 8480-6 BMI: 42.8 Code : 27166-2 Heart Rate 1 : 72 bpm Height: 4'11" SpO2: 94% Weight: 212 lbs 02/15/2017 Blood Pressure 1: 154/70 Code : 8480-6 BMI: 42.5 Code : 34290-3 Heart Rate 1 : 68 bpm Height: 4'11" SpO2: 97% Weight: 210 lbs 8 oz 11/16/2016 Blood Pressure 1: 142/78 Code : 8480-6 BMI: 41.6 Code : 56918-2 Heart Rate 1 : 68 bpm Height: 4'11" SpO2: 95% Temperature: 36.0 (C) / 96.8 (F) Weight: 206 lbs 08/19/2016 Blood Pressure 1: 120/74 Code : 8480-6 BMI: 41.6 Code : 04586-9 Heart Rate 1 : 75 bpm Height: 4'11" SpO2: 95% Weight: 206 lbs 07/15/2016 Blood Pressure 1: 140/76 Code : 8480-6 BMI: 42.0 Code : 86513-0 Heart Rate 1 : 76 bpm Height: 4'11" SpO2: 96% Weight: 208 lbs 06/03/2016 Blood Pressure 1: 130/78 Code : 8480-6 BMI: 42.8 Code : 35117-7 Heart Rate 1 : 72 bpm Height: 4'11" SpO2: 98% Weight: 212 lbs 04/22/2016 Blood Pressure 1: 142/84 Code : 8480-6 BMI: 41.8 Code : 34760-8 Heart Rate 1 : 86 bpm Height: 4'11" SpO2: 92% Weight: 207 lbs 01/22/2016 Blood Pressure 1: 162/64 Code : 8480-6 BMI: 41.2 Code : 75928-5 Heart Rate 1 : 70 bpm Height: 4'11" SpO2: 97% Weight: 204 lbs 10/23/2015 Blood Pressure 1: 130/70 Code : 8480-6 BMI: 40.4 Code : 63299-8 Heart Rate 1 : 72 bpm Height: 4'11" SpO2: 95% Weight: 200 lbs 09/12/2015 Blood Pressure 1: 142/62 Code : 8480-6 BMI: 39.4 Code : 22468-8 Heart Rate 1 : 63 bpm Height: 4'11" SpO2: 96% Weight: 195 lbs 08/05/2015 Blood Pressure 1: 144/60 Code : 8480-6 BMI: 41.0 Code : 50627-8 Heart Rate 1 : 92 bpm Height: 4'11" SpO2: 90% SpO2: 97% Weight: 203 lbs 04/03/2015 Blood Pressure 1: 142/68 Code : 8480-6 BMI: 40.6 Code : 79507-3 Heart Rate 1 : 77 bpm Height: 4'11" SpO2: 95% Weight: 201 lbs 01/30/2015 Blood Pressure 1: 150/72 Code : 8480-6 BMI: 40.2 Code : 54807-4 Heart Rate 1 : 64 bpm Height: 4'11" Weight: 199 lbs 01/02/2015 Blood Pressure 1: 136/72 Code : 8480-6 BMI: 39.8 Code : 55598-8 Heart Rate 1 : 68 bpm Height: 4'11" Weight: 197 lbs Functional Status No Functional Status data History of Present Illness Symptom Name Status Result Effective Date Notes diabetes mellitus Quality insulin dependent 06/05/2018 None diabetes mellitus Quality chronic 06/05/2018 None diabetes mellitus Quality IDDM 06/05/2018 None diabetes mellitus Severity moderate 06/05/2018 None diabetes mellitus Significant Medications insulin 06/05/2018 None diabetes mellitus Alleviating Factors insulin 06/05/2018 None diabetes mellitus Exacerbating Factors diet 06/05/2018 None diabetes mellitus Nutrition regular diet 06/05/2018 None diabetes mellitus Pertinent Findings dizziness 06/05/2018 when she gets up after laying. She turns to left side and waits before getting up diabetes mellitus Pertinent Findings dyspnea 06/05/2018 None diabetes mellitus Pertinent Findings Denies nausea 06/05/2018 None diabetes mellitus Pertinent Findings numbness 06/05/2018 "once in a while" in her fingers diabetes mellitus Onset of Symptom onset as an adult 06/05/2018 None diabetes mellitus Glucose monitoring twice daily 05/22/2018 None diabetes mellitus Quality insulin dependent 05/22/2018 None diabetes mellitus Quality chronic 05/22/2018 None diabetes mellitus Quality IDDM 05/22/2018 None diabetes mellitus Severity moderate 05/22/2018 None diabetes mellitus Significant Medications insulin 05/22/2018 None diabetes mellitus Alleviating Factors insulin 05/22/2018 None diabetes mellitus Exacerbating Factors diet 05/22/2018 None diabetes mellitus Nutrition regular diet 05/22/2018 None diabetes mellitus Pertinent Findings dizziness 05/22/2018 when she gets up after laying. She turns to left side and waits before getting up diabetes mellitus Pertinent Findings dyspnea 05/22/2018 None diabetes mellitus Pertinent Findings Denies nausea 05/22/2018 None diabetes mellitus Pertinent Findings numbness 05/22/2018 "once in a while" in her fingers diabetes mellitus Onset of Symptom onset as an adult 05/22/2018 None diabetes mellitus Quality insulin dependent 05/15/2018 None diabetes mellitus Quality chronic 05/15/2018 None diabetes mellitus Severity moderate 05/15/2018 None diabetes mellitus Significant Medications insulin 05/15/2018 None diabetes mellitus Alleviating Factors insulin 05/15/2018 None diabetes mellitus Exacerbating Factors diet 05/15/2018 None diabetes mellitus Nutrition regular diet 05/15/2018 None diabetes mellitus Pertinent Findings dizziness 05/15/2018 when she gets up after laying. She turns to left side and waits before getting up diabetes mellitus Pertinent Findings dyspnea 05/15/2018 None diabetes mellitus Pertinent Findings Denies nausea 05/15/2018 None diabetes mellitus Pertinent Findings numbness 05/15/2018 "once in a while" in her fingers diabetes mellitus Onset of Symptom onset as an adult 05/15/2018 None hypertension Quality chronic 05/15/2018 None hypertension Quality primary hypertension 05/15/2018 None hypertension Onset and Resolution ongoing 05/15/2018 None hypertension Onset of Symptom during adulthood 05/15/2018 None hypertension Blood Pressure Values not checking blood pressure at home 05/15/2018 None hypertension Alleviating Factors medication 05/15/2018 None hypertension Pertinent Findings Denies edema 05/15/2018 None diabetes mellitus Quality IDDM 05/15/2018 None diabetes mellitus Quality insulin dependent 01/12/2018 None diabetes mellitus Quality chronic 01/12/2018 None diabetes mellitus Severity moderate 01/12/2018 None diabetes mellitus Significant Medications insulin 01/12/2018 None diabetes mellitus Alleviating Factors insulin 01/12/2018 None diabetes mellitus Exacerbating Factors diet 01/12/2018 None diabetes mellitus Nutrition regular diet 01/12/2018 None diabetes mellitus Pertinent Findings dizziness 01/12/2018 when she gets up after laying diabetes mellitus Pertinent Findings dyspnea 01/12/2018 None diabetes mellitus Pertinent Findings Denies nausea 01/12/2018 None diabetes mellitus Pertinent Findings numbness 01/12/2018 "once in a while" in her fingers diabetes mellitus Onset of Symptom onset as an adult 01/12/2018 None hypertension Quality chronic 01/12/2018 None hypertension Quality primary hypertension 01/12/2018 None hypertension Onset and Resolution ongoing 01/12/2018 None hypertension Onset of Symptom during adulthood 01/12/2018 None hypertension Alleviating Factors medication 01/12/2018 None lower leg pain Location on the left 01/12/2018 None lower leg pain Quality intermittent 01/12/2018 None lower leg pain Onset and Resolution ongoing 01/12/2018 None lower leg pain Onset of Symptom months ago 01/12/2018 None lower leg pain Pertinent Findings pain with movement 01/12/2018 None diabetes mellitus Test results Pt checking blood glucose at home, see scanned readings 2017 None diabetes mellitus Glucose monitoring twice daily 01/12/2018 None hypertension Blood Pressure Values not checking blood pressure at home 01/12/2018 None hypertension Pertinent Findings Denies edema 01/12/2018 None diabetes mellitus Test results HgbA1c level 7.7 01/12/2018 None lower leg pain Location on the left 11/25/2017 None lower leg pain Quality aching pain 11/25/2017 None lower leg pain Quality constant 11/25/2017 None lower leg pain Onset of Symptom 1 months ago 11/25/2017 None lower leg pain Pertinent Findings Denies decreased range of motion 11/25/2017 None lower leg pain Pertinent Findings limping 11/25/2017 None lower leg pain Pertinent Findings pain with movement 11/25/2017 None lower leg pain Pertinent Findings Denies weakness 11/25/2017 None lower leg pain Pertinent Findings Denies warmth 11/25/2017 None lower leg pain Exacerbating Factors walking 11/25/2017 None lower leg pain Exacerbating Factors running 11/25/2017 None lower leg pain Exacerbating Factors jumping 11/25/2017 None lower leg pain Exacerbating Factors exercise 11/25/2017 None lower leg pain Alleviating Factors rest 11/25/2017 None lower leg pain Alleviating Factors NSAID' s 11/25/2017 None lower leg pain Alleviating Factors non weight bearing 11/25/2017 None lower leg pain Onset and Resolution ongoing 11/25/2017 None diabetes mellitus Quality insulin dependent 09/15/2017 None diabetes mellitus Quality chronic 09/15/2017 None diabetes mellitus Severity moderate 09/15/2017 None diabetes mellitus Significant Medications insulin 09/15/2017 None diabetes mellitus Alleviating Factors insulin 09/15/2017 None diabetes mellitus Exacerbating Factors diet 09/15/2017 None diabetes mellitus Nutrition regular diet 09/15/2017 None diabetes mellitus Pertinent Findings dizziness 09/15/2017 "once in a while" diabetes mellitus Pertinent Findings dyspnea 09/15/2017 "not often" diabetes mellitus Pertinent Findings Denies nausea 09/15/2017 None diabetes mellitus Pertinent Findings numbness 09/15/2017 "once in a while" in her fingers diabetes mellitus Onset of Symptom onset as an adult 09/15/2017 None ankle pain Location on the right 09/15/2017 None ankle pain Location in the posterior region 09/15/2017 None ankle pain Onset and Resolution ongoing 09/15/2017 None ankle pain Onset of Symptom 4 months ago 09/15/2017 None ankle pain Quality improving 09/15/2017 None lower leg pain Location on the left 09/15/2017 None lower leg pain Quality aching pain 09/15/2017 None lower leg pain Quality constant 09/15/2017 None lower leg pain Onset and Resolution sudden in onset 09/15/2017 None lower leg pain Onset of Symptom 1 months ago 09/15/2017 None diabetes mellitus Quality insulin dependent 08/17/2017 None diabetes mellitus Quality chronic 08/17/2017 None diabetes mellitus Severity moderate 08/17/2017 None diabetes mellitus Significant Medications insulin 08/17/2017 None diabetes mellitus Alleviating Factors insulin 08/17/2017 None diabetes mellitus Exacerbating Factors diet 08/17/2017 None diabetes mellitus Nutrition regular diet 08/17/2017 None diabetes mellitus Pertinent Findings dizziness 08/17/2017 "once in a while" diabetes mellitus Pertinent Findings dyspnea 08/17/2017 "not often" diabetes mellitus Pertinent Findings Denies nausea 08/17/2017 None diabetes mellitus Pertinent Findings numbness 08/17/2017 "once in a while" in her fingers diabetes mellitus Onset of Symptom onset as an adult 08/17/2017 None ankle pain Location on the right 08/17/2017 None ankle pain Location in the posterior region 08/17/2017 None ankle pain Quality acute 08/17/2017 None ankle pain Quality intermittent 08/17/2017 None ankle pain Onset and Resolution ongoing 08/17/2017 None ankle pain Onset of Symptom 4 months ago 08/17/2017 None diabetes mellitus Quality insulin dependent 07/19/2017 None diabetes mellitus Quality chronic 07/19/2017 None diabetes mellitus Severity moderate 07/19/2017 None diabetes mellitus Significant Medications insulin 07/19/2017 None diabetes mellitus Exacerbating Factors diet 07/19/2017 None diabetes mellitus Nutrition regular diet 07/19/2017 None diabetes mellitus Pertinent Findings dizziness 07/19/2017 "once in a while" diabetes mellitus Pertinent Findings dyspnea 07/19/2017 "not often" diabetes mellitus Pertinent Findings Denies nausea 07/19/2017 None diabetes mellitus Pertinent Findings numbness 07/19/2017 "once in a while" in her fingers diabetes mellitus Onset of Symptom onset as an adult 07/19/2017 None diabetes mellitus Test results Pt checking blood glucose at home, see scanned readings 2016 None diabetes mellitus Glucose monitoring twice daily 07/19/2017 None ankle pain Location on the right 07/19/2017 None ankle pain Location in the posterior region 07/19/2017 None ankle pain Quality acute 07/19/2017 None ankle pain Quality intermittent 07/19/2017 None ankle pain Onset and Resolution ongoing 07/19/2017 None ankle pain Onset of Symptom 4 months ago 07/19/2017 None ankle pain Mechanism of injury rotational 07/19/2017 None diabetes mellitus Alleviating Factors insulin 07/19/2017 None diabetes mellitus Quality insulin dependent 05/19/2017 None diabetes mellitus Quality chronic 05/19/2017 None diabetes mellitus Severity moderate 05/19/2017 None diabetes mellitus Significant Medications insulin 05/19/2017 None diabetes mellitus Alleviating Factors medication 05/19/2017 None diabetes mellitus Exacerbating Factors diet 05/19/2017 None diabetes mellitus Nutrition regular diet 05/19/2017 None diabetes mellitus Pertinent Findings dizziness 05/19/2017 when her blood sugar drops-- she did this morning- her BS was 46 diabetes mellitus Pertinent Findings dyspnea 05/19/2017 "sometimes" diabetes mellitus Pertinent Findings numbness 05/19/2017 "once in a while" in her fingers diabetes mellitus Onset of Symptom onset as an adult 05/19/2017 None hypertension Onset and Resolution ongoing 05/19/2017 None hypertension Onset of Symptom during adulthood 05/19/2017 None hypertension Blood Pressure Values not checking blood pressure at home 05/19/2017 None hypertension Frequency of Episodes unchanged 05/19/2017 None hypertension Significant Family History heart disease 05/19/2017 None hypertension Significant Medical Conditions diabetes 05/19/2017 None hypertension Alleviating Factors medication 05/19/2017 None hypertension Pertinent Findings Denies edema 05/19/2017 None hypertension Quality primary hypertension 05/19/2017 None hypothyroid Onset and Resolution ongoing 05/19/2017 None hypothyroid Alleviating Factors medication 05/19/2017 None diabetes mellitus Test results Pt checking blood glucose at home, see scanned readings 2016 None diabetes mellitus Glucose monitoring twice daily 05/19/2017 (2-4 times per day ) diabetes mellitus Pertinent Findings Denies nausea 05/19/2017 None diabetes mellitus Quality insulin dependent 02/15/2017 None diabetes mellitus Severity moderate 02/15/2017 None diabetes mellitus Significant Medications insulin 02/15/2017 None diabetes mellitus Alleviating Factors medication 02/15/2017 None diabetes mellitus Nutrition regular diet 02/15/2017 None diabetes mellitus Pertinent Findings dizziness 02/15/2017 None diabetes mellitus Pertinent Findings dyspnea 02/15/2017 None diabetes mellitus Pertinent Findings Denies numbness 02/15/2017 None hypertension Quality intermittent 02/15/2017 None hypertension Onset and Resolution ongoing 02/15/2017 None hypertension Onset of Symptom during adulthood 02/15/2017 None hypertension Blood Pressure Values not checking blood pressure at home 02/15/2017 None hypertension Severity not consistently severe symptoms, the symptoms fluctuate from no symptoms to anxiety and headaches 02/15/2017 None hypertension Frequency of Episodes unchanged 02/15/2017 None hypertension Significant Family History heart disease 02/15/2017 None hypertension Significant Medical Conditions diabetes 02/15/2017 None hypertension Triggers no known associated factors 02/15/2017 None hypertension Alleviating Factors medication 02/15/2017 None hypertension Pertinent Findings Denies dizziness 02/15/2017 improved hypertension Pertinent Findings dyspnea 02/15/2017 with ambulation hypertension Pertinent Findings Denies edema 02/15/2017 None diabetes mellitus Quality chronic 02/15/2017 None diabetes mellitus Exacerbating Factors diet 02/15/2017 None diabetes mellitus Onset of Symptom onset as an adult 02/15/2017 None lower leg pain Location on the left 02/15/2017 None lower leg pain Quality aching pain 02/15/2017 None lower leg pain Pertinent Findings pain with movement 02/15/2017 None diabetes mellitus Test results HgbA1c level 7.5 02/15/2017 None diabetes mellitus Quality insulin dependent 11/16/2016 None diabetes mellitus Severity moderate 11/16/2016 None diabetes mellitus Significant Medications insulin 11/16/2016 None diabetes mellitus Alleviating Factors medication 11/16/2016 None diabetes mellitus Nutrition regular diet 11/16/2016 None diabetes mellitus Pertinent Findings dizziness 11/16/2016 None diabetes mellitus Pertinent Findings dyspnea 11/16/2016 None diabetes mellitus Pertinent Findings Denies numbness 11/16/2016 None diabetes mellitus Test results Pt checking blood glucose at home, see scanned readings 2016 None cough Location in the throat 11/16/2016 None cough Quality intermittent 11/16/2016 None cough Quality productive 11/16/2016 None cough Onset and Resolution sudden in onset 11/16/2016 None cough Onset of Symptom 3 days ago 11/16/2016 None cough Limitation on Activities does not limit activities 11/16/2016 None cough Pertinent Findings Denies chest discomfort 11/16/2016 None cough Pertinent Findings dyspnea 11/16/2016 None cough Pertinent Findings Denies fever 11/16/2016 None cough Pertinent Findings Denies muscle aches 11/16/2016 None cough Pertinent Findings nasal congestion 11/16/2016 None diabetes mellitus Quality insulin dependent 08/19/2016 None diabetes mellitus Severity moderate 08/19/2016 None diabetes mellitus Significant Medications insulin 08/19/2016 None diabetes mellitus Alleviating Factors medication 08/19/2016 None diabetes mellitus Nutrition regular diet 08/19/2016 None diabetes mellitus Pertinent Findings dizziness 08/19/2016 None diabetes mellitus Pertinent Findings dyspnea 08/19/2016 None diabetes mellitus Pertinent Findings Denies numbness 08/19/2016 None diabetes mellitus Test results HgbA1c level 7.5% 08/19/2016 None diabetes mellitus Pertinent Findings dizziness 07/15/2016 None diabetes mellitus Pertinent Findings dyspnea 07/15/2016 None diabetes mellitus Pertinent Findings Denies numbness 07/15/2016 None diabetes mellitus Quality insulin dependent 07/15/2016 None diabetes mellitus Severity moderate 07/15/2016 None diabetes mellitus Test results Pt checking blood glucose at home, see scanned readings 2015 None diabetes mellitus Blood glucose levels less than 60 07/15/2016 None diabetes mellitus Blood glucose levels between 60 and 120 07/15/2016 None diabetes mellitus Blood glucose levels greater than 120 07/15/2016 None diabetes mellitus Glucose monitoring twice daily 07/15/2016 None diabetes mellitus Significant Medications insulin 07/15/2016 None diabetes mellitus Alleviating Factors medication 07/15/2016 None diabetes mellitus Nutrition regular diet 07/15/2016 None diabetes mellitus Exercise no exercise 07/15/2016 None diabetes mellitus Quality insulin dependent 06/03/2016 None diabetes mellitus Quality chronic 06/03/2016 None diabetes mellitus Severity moderate 06/03/2016 None diabetes mellitus Significant Medications insulin 06/03/2016 None diabetes mellitus Alleviating Factors medication 06/03/2016 None diabetes mellitus Exacerbating Factors diet 06/03/2016 None diabetes mellitus Nutrition regular diet 06/03/2016 None diabetes mellitus Pertinent Findings Denies dizziness 06/03/2016 None diabetes mellitus Pertinent Findings dyspnea 06/03/2016 None diabetes mellitus Onset of Symptom onset as an adult 06/03/2016 None diabetes mellitus Test results Pt checking blood glucose readings, did not bring results to clinic 06/03/2016 None diabetes mellitus Glucose monitoring twice daily 06/03/2016 AM and PM hypertension Quality intermittent 04/22/2016 None hypertension Onset and Resolution ongoing 04/22/2016 None hypertension Onset of Symptom during adulthood 04/22/2016 None hypertension Blood Pressure Values not checking blood pressure at home 04/22/2016 None hypertension Severity not consistently severe symptoms, the symptoms fluctuate from no symptoms to anxiety and headaches 04/22/2016 None hypertension Frequency of Episodes unchanged 04/22/2016 None hypertension Significant Family History heart disease 04/22/2016 None hypertension Significant Medical Conditions diabetes 04/22/2016 None hypertension Triggers no known associated factors 04/22/2016 None hypertension Alleviating Factors medication 04/22/2016 None hypertension Pertinent Findings Denies dizziness 04/22/2016 improved hypertension Pertinent Findings dyspnea 04/22/2016 with ambulation hypertension Pertinent Findings Denies edema 04/22/2016 None diabetes mellitus Quality chronic 04/22/2016 None diabetes mellitus Severity moderate 04/22/2016 None diabetes mellitus Significant Medications insulin 04/22/2016 None diabetes mellitus Alleviating Factors medication 04/22/2016 None diabetes mellitus Exacerbating Factors diet 04/22/2016 None diabetes mellitus Nutrition regular diet 04/22/2016 None diabetes mellitus Pertinent Findings Denies dizziness 04/22/2016 improving diabetes mellitus Onset of Symptom onset as an adult 04/22/2016 None diabetes mellitus Pertinent Findings dyspnea 04/22/2016 None diabetes mellitus Glucose monitoring occasional glucose testing 04/22/2016 None diabetes mellitus Test results HgbA1c level 6.6 04/22/2016 None diabetes mellitus Quality insulin dependent 04/22/2016 None hypertension Quality intermittent 01/22/2016 None hypertension Onset and Resolution ongoing 01/22/2016 None hypertension Onset of Symptom during adulthood 01/22/2016 None hypertension Blood Pressure Values not checking blood pressure at home 01/22/2016 None hypertension Severity not consistently severe symptoms, the symptoms fluctuate from no symptoms to anxiety and headaches 01/22/2016 None hypertension Frequency of Episodes unchanged 01/22/2016 None hypertension Significant Family History heart disease 01/22/2016 None hypertension Significant Medical Conditions diabetes 01/22/2016 None hypertension Triggers no known associated factors 01/22/2016 None hypertension Alleviating Factors medication 01/22/2016 None hypertension Pertinent Findings Denies dizziness 01/22/2016 improved hypertension Pertinent Findings dyspnea 01/22/2016 with ambulation hypertension Pertinent Findings Denies edema 01/22/2016 None diabetes mellitus Quality chronic 01/22/2016 None diabetes mellitus Severity moderate 01/22/2016 None diabetes mellitus Significant Medications insulin 01/22/2016 None diabetes mellitus Alleviating Factors medication 01/22/2016 None diabetes mellitus Exacerbating Factors diet 01/22/2016 None diabetes mellitus Nutrition regular diet 01/22/2016 with lots of potatoes and sweets diabetes mellitus Pertinent Findings dizziness 01/22/2016 improving diabetes mellitus Onset of Symptom onset as an adult 01/22/2016 None diabetes mellitus Test results Pt checking blood glucose at home, see scanned readings 2015 None hypertension Quality intermittent 10/23/2015 None hypertension Onset and Resolution ongoing 10/23/2015 None hypertension Onset of Symptom during adulthood 10/23/2015 None hypertension Blood Pressure Values not checking blood pressure at home 10/23/2015 None hypertension Severity not consistently severe symptoms, the symptoms fluctuate from no symptoms to anxiety and headaches 10/23/2015 None hypertension Frequency of Episodes unchanged 10/23/2015 None hypertension Significant Family History heart disease 10/23/2015 None hypertension Significant Medical Conditions diabetes 10/23/2015 None hypertension Triggers no known associated factors 10/23/2015 None hypertension Alleviating Factors medication 10/23/2015 None hypertension Pertinent Findings Denies dizziness 10/23/2015 improved hypertension Pertinent Findings dyspnea 10/23/2015 with ambulation hypertension Pertinent Findings Denies edema 10/23/2015 None diabetes mellitus Quality chronic 10/23/2015 None diabetes mellitus Severity moderate 10/23/2015 None diabetes mellitus Significant Medications insulin 10/23/2015 None diabetes mellitus Alleviating Factors medication 10/23/2015 None diabetes mellitus Exacerbating Factors diet 10/23/2015 None diabetes mellitus Nutrition regular diet 10/23/2015 with lots of potatoes and sweets diabetes mellitus Pertinent Findings dizziness 10/23/2015 improving diabetes mellitus Onset of Symptom onset as an adult 10/23/2015 None diabetes mellitus Glucose monitoring twice daily 10/23/2015 None hypertension Quality intermittent 09/12/2015 None hypertension Onset and Resolution ongoing 09/12/2015 None hypertension Onset of Symptom during adulthood 09/12/2015 None hypertension Blood Pressure Values not checking blood pressure at home 09/12/2015 None hypertension Severity not consistently severe symptoms, the symptoms fluctuate from no symptoms to anxiety and headaches 09/12/2015 None hypertension Frequency of Episodes unchanged 09/12/2015 None hypertension Significant Family History heart disease 09/12/2015 None hypertension Significant Medical Conditions diabetes 09/12/2015 None hypertension Triggers no known associated factors 09/12/2015 None hypertension Alleviating Factors medication 09/12/2015 None hypertension Pertinent Findings Denies dizziness 09/12/2015 improved hypertension Pertinent Findings dyspnea 09/12/2015 with ambulation hypertension Pertinent Findings Denies edema 09/12/2015 None diabetes mellitus Severity moderate 09/12/2015 None diabetes mellitus Significant Medications insulin 09/12/2015 None diabetes mellitus Alleviating Factors medication 09/12/2015 None diabetes mellitus Exacerbating Factors diet 09/12/2015 None diabetes mellitus Nutrition regular diet 09/12/2015 with lots of potatoes and sweets diabetes mellitus Pertinent Findings dizziness 09/12/2015 improving diabetes mellitus Onset of Symptom onset as an adult 09/12/2015 None diabetes mellitus Quality chronic 09/12/2015 None hypertension Quality intermittent 08/05/2015 None hypertension Onset and Resolution ongoing 08/05/2015 None hypertension Onset of Symptom during adulthood 08/05/2015 None hypertension Blood Pressure Values not checking blood pressure at home 08/05/2015 None hypertension Severity not consistently severe symptoms, the symptoms fluctuate from no symptoms to anxiety and headaches 08/05/2015 None hypertension Frequency of Episodes unchanged 08/05/2015 None hypertension Significant Family History heart disease 08/05/2015 None hypertension Significant Medical Conditions diabetes 08/05/2015 None hypertension Triggers no known associated factors 08/05/2015 None hypertension Alleviating Factors medication 08/05/2015 None hypertension Pertinent Findings Denies dizziness 08/05/2015 improved hypertension Pertinent Findings dyspnea 08/05/2015 with ambulation hypertension Pertinent Findings Denies edema 08/05/2015 None diabetes mellitus Quality IDDM 08/05/2015 bs this am - 149 diabetes mellitus Severity moderate 08/05/2015 None diabetes mellitus Significant Medications insulin 08/05/2015 None diabetes mellitus Alleviating Factors medication 08/05/2015 None diabetes mellitus Exacerbating Factors diet 08/05/2015 None diabetes mellitus Nutrition regular diet 08/05/2015 with lots of potatoes and sweets diabetes mellitus Pertinent Findings dizziness 08/05/2015 improving diabetes mellitus Onset of Symptom onset as an adult 08/05/2015 None diabetes mellitus Quality insulin dependent 08/05/2015 None diabetes mellitus Test results Pt checking blood glucose at home, see scanned readings 2015 None diabetes mellitus Glucose monitoring twice daily 08/05/2015 None hypertension Quality intermittent 04/03/2015 None hypertension Onset and Resolution ongoing 04/03/2015 None hypertension Onset of Symptom during adulthood 04/03/2015 None hypertension Blood Pressure Values not checking blood pressure at home 04/03/2015 None hypertension Severity not consistently severe symptoms, the symptoms fluctuate from no symptoms to anxiety and headaches 04/03/2015 None hypertension Frequency of Episodes unchanged 04/03/2015 None hypertension Significant Family History heart disease 04/03/2015 None hypertension Significant Medical Conditions diabetes 04/03/2015 None hypertension Triggers no known associated factors 04/03/2015 None hypertension Alleviating Factors medication 04/03/2015 None hypertension Pertinent Findings Denies dizziness 04/03/2015 improved hypertension Pertinent Findings dyspnea 04/03/2015 with ambulation hypertension Pertinent Findings Denies edema 04/03/2015 None diabetes mellitus Quality IDDM 04/03/2015 bs this am - 149 diabetes mellitus Severity moderate 04/03/2015 None diabetes mellitus Significant Medications insulin 04/03/2015 None diabetes mellitus Alleviating Factors medication 04/03/2015 None diabetes mellitus Exacerbating Factors diet 04/03/2015 None diabetes mellitus Nutrition regular diet 04/03/2015 with lots of potatoes and sweets diabetes mellitus Pertinent Findings dizziness 04/03/2015 improving diabetes mellitus Onset of Symptom onset as an adult 04/03/2015 None diabetes mellitus Glucose monitoring twice daily 04/03/2015 None diabetes mellitus Test results HgbA1c level 9.9 04/03/2015 None hypertension Quality intermittent 01/30/2015 None hypertension Onset and Resolution ongoing 01/30/2015 None hypertension Pertinent Findings Denies dizziness 01/30/2015 improved hypertension Pertinent Findings dyspnea 01/30/2015 with ambulation hypertension Pertinent Findings Denies edema 01/30/2015 None diabetes mellitus Quality IDDM 01/30/2015 bs this am - 179 diabetes mellitus Pertinent Findings dizziness 01/30/2015 improving vertigo Quality intermittent 01/30/2015 improving- using sweet oil in left ear vertigo Onset and Resolution ongoing 01/30/2015 None vertigo Onset of Symptom 1 months ago 01/30/2015 None vertigo Frequency of Episodes daily 01/30/2015 None vertigo Triggers activity 01/30/2015 None vertigo Pertinent Findings dizziness 01/30/2015 None diabetes mellitus Glucose monitoring twice daily 01/30/2015 None hypertension Onset of Symptom during adulthood 01/30/2015 None hypertension Blood Pressure Values not checking blood pressure at home 01/30/2015 None hypertension Severity not consistently severe symptoms, the symptoms fluctuate from no symptoms to anxiety and headaches 01/30/2015 None hypertension Frequency of Episodes unchanged 01/30/2015 None hypertension Significant Family History heart disease 01/30/2015 None hypertension Significant Medical Conditions diabetes 01/30/2015 None hypertension Triggers no known associated factors 01/30/2015 None hypertension Alleviating Factors medication 01/30/2015 None diabetes mellitus Test results HgbA1c level 9.9 01/30/2015 None diabetes mellitus Severity moderate 01/30/2015 None diabetes mellitus Blood glucose levels greater than 120 01/30/2015 None diabetes mellitus Significant Medications insulin 01/30/2015 None diabetes mellitus Alleviating Factors medication 01/30/2015 None diabetes mellitus Exacerbating Factors diet 01/30/2015 None diabetes mellitus Nutrition regular diet 01/30/2015 with lots of potatoes and sweets diabetes mellitus Onset of Symptom onset as an adult 01/30/2015 None vertigo Quality intermittent 01/02/2015 None vertigo Onset and Resolution ongoing 01/02/2015 None vertigo Onset of Symptom 1 months ago 01/02/2015 None vertigo Frequency of Episodes daily 01/02/2015 None vertigo Triggers activity 01/02/2015 None vertigo Pertinent Findings dizziness 01/02/2015 None diabetes mellitus Glucose monitoring twice daily 01/02/2015 None diabetes mellitus Blood glucose levels greater than 120 01/02/2015 207 today diabetes mellitus Pertinent Findings dizziness 01/02/2015 None diabetes mellitus Quality IDDM 01/02/2015 None hypertension Onset and Resolution ongoing 01/02/2015 None hypertension Quality intermittent 01/02/2015 None hypertension Pertinent Findings dizziness 01/02/2015 None hypertension Pertinent Findings dyspnea 01/02/2015 with ambulation hypertension Pertinent Findings Denies edema 01/02/2015 None Advance Directives No Advance Directive data Encounters Encounter Performer Location Codes Date ([id number]) 64607 EST. PATIENT, LEVEL III Diagnosis: Type 2 diabetes mellitus with hyperglycemia[ICD10: E11.65] Giselle Knox MD, [facility] CPT-4: 80183 06/05/2018 ([id number]) Miscellaneous no charge Diagnosis: Type 2 diabetes mellitus with hyperglycemia[ICD10: E11.65] Jennifer Knox MD , [facility] CPT-4: 13026 05/29/2018 ([id number]) 19993 EST. PATIENT, LEVEL IV Diagnosis: Type 2 diabetes mellitus with hyperglycemia[ICD10: E11.65] Diagnosis: Essential (primary) hypertension[ICD10: I10] Diagnosis: Hypothyroidism, unspecified[ICD10: E03.9] Giselle Knox MD, [facility] CPT-4: 38971 05/15/2018 ([id number]) 73522 EST. PATIENT, LEVEL IV Diagnosis: Essential (primary) hypertension[ICD10: I10] Diagnosis: Type 2 diabetes mellitus with hyperglycemia[ICD10: E11.65] Diagnosis: Hypothyroidism, unspecified[ICD10: E03.9] Diagnosis: Spinal stenosis, lumbar region without neurogenic claudication[ICD10 : M48.061] Diagnosis: Vitamin B12 deficiency anemia due to intrinsic factor deficiency[ ICD10: D51.0] Giselle Knox MD, [facility] CPT-4: 47367 01/12/2018 ([id number]) 14663 EST. 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 PATIENT, LEVEL IV Diagnosis: Localized edema[ICD10: R60.0] Diagnosis: Vitamin B12 deficiency anemia due to intrinsic factor deficiency[ ICD10: D51.0] Chasity Knox MD, [facility] CPT-4: 11411 12557 EST. PATIENT, LEVEL IV Diagnosis: Essential (primary) hypertension[ICD10: I10] Diagnosis: Type 2 diabetes mellitus with hyperglycemia[ICD10: E11.65] Diagnosis: Vitamin B12 deficiency anemia due to intrinsic factor deficiency[ ICD10: D51.0] Chasity Knox MD, [facility] CPT-4: 77198 21904 EST. PATIENT, LEVEL IV Diagnosis: Type 2 diabetes mellitus with hyperglycemia[ICD10: E11.65] Diagnosis: Essential (primary) hypertension[ICD10: I10] Diagnosis: Vitamin B12 deficiency anemia due to intrinsic factor deficiency[ ICD10: D51.0] Chasity Knox MD, [facility] CPT-4: 42414 ([id number]) 34755 EST. PATIENT, LEVEL IV Diagnosis: Essential (primary) hypertension[ICD10: I10] Diagnosis: Type 2 diabetes mellitus with hyperglycemia[ICD10: E11.65] Diagnosis: Hypothyroidism, unspecified[ICD10: E03.9] Diagnosis: Vitamin B12 deficiency anemia due to intrinsic factor deficiency[ ICD10: D51.0] Diagnosis: Chronic kidney disease, stage 3 (moderate)[ICD10: N18.3] Giselle Knox MD , [facility] CPT-4: 17330 05/19/2017 ([id number]) 22223 EST. PATIENT, LEVEL IV Diagnosis: Essential (primary) hypertension[ICD10: I10] Diagnosis: Type 2 diabetes mellitus with hyperglycemia[ICD10: E11.65] Diagnosis: Hypothyroidism, unspecified[ICD10: E03.9] Giselle Knox MD, [facility] CPT-4: 97338 02/15/2017 ([id number]) 87332 EST. PATIENT, LEVEL IV Diagnosis: Type 2 diabetes mellitus with hyperglycemia[ICD10: E11.65] Diagnosis: Cough[ICD10: R05] Diagnosis: Acute upper respiratory infection, unspecified[ICD10: J06.9] Diagnosis: Hypothyroidism, unspecified[ICD10: E03.9] Diagnosis: Chronic kidney disease, stage 3 (moderate)[ICD10: N18.3] Giselle Knox MD , [facility] CPT-4: 97556 11/16/2016 ([id number]) 39678 EST. PATIENT, LEVEL IV Diagnosis: Type 2 diabetes mellitus with hyperglycemia[ICD10: E11.65] Diagnosis: Hypothyroidism, unspecified[ICD10: E03.9] Diagnosis: Essential (primary) hypertension[ICD10: I10] Giselle Knox MD, [facility] CPT-4: 50614 08/19/2016 ([id number]) 29648 EST. PATIENT, LEVEL III Diagnosis: Type 2 diabetes mellitus with hyperglycemia[ICD10: E11.65] Giselle Knox MD, [facility] CPT-4: 47554 07/15/2016 ([id number]) 14116 EST. PATIENT, LEVEL IV Diagnosis: Type 2 diabetes mellitus with hyperglycemia[ICD10: E11.65] Diagnosis: Atrophy of thyroid (acquired)[ICD10: E03.4] Diagnosis: Vitamin B12 deficiency anemia due to intrinsic factor deficiency[ ICD10: D51.0] Diagnosis: Chronic kidney disease, stage 3 (moderate)[ICD10: N18.3] Diagnosis: Essential (primary) hypertension[ICD10: I10] Jennifer Knox MD, [facility] CPT-4: 29381 06/03/2016 ([id number]) 98589 EST. PATIENT, LEVEL III Diagnosis: Type 2 diabetes mellitus with hyperglycemia[ICD10: E11.65] Diagnosis: Essential (primary) hypertension[ICD10: I10] Diagnosis: Chronic kidney disease, stage 3 (moderate)[ICD10: N18.3] Diagnosis: VACCIN STREP PNEUMONIAE[ICD10: Z23] Giselle Knox MD, [facility] CPT-4: 03672 04/22/2016 [id number] EST. PATIENT, LEVEL IV Diagnosis: Type 2 diabetes mellitus with hyperglycemia[ICD10: E11.65] Diagnosis: Essential (primary) hypertension[ICD10: I10] Chasity Knox MD, [facility] CPT-4: 88450 01/22/2016 ([id number]) 14032 EST. PATIENT, LEVEL III Diagnosis: Type 2 diabetes mellitus with hyperglycemia[ICD10: E11.65] Diagnosis: Essential (primary) hypertension[ICD10: I10] Giselle Knox MD, [facility] CPT-4: 37075 10/23/2015 67142 EST. PATIENT, LEVEL IV Diagnosis: Type 2 diabetes mellitus with hyperglycemia[ICD10: E11.65] Diagnosis: Vitamin B12 deficiency anemia due to intrinsic factor deficiency[ ICD10: D51.0] Diagnosis: Essential (primary) hypertension[ICD10: I10] Chasity Knox MD, [facility] CPT-4: 28034 09/12/2015 ([id number]) 02127 EST. PATIENT, LEVEL IV Diagnosis: Essential (primary) hypertension[ICD10: I10] Diagnosis: Type 2 diabetes mellitus with hyperglycemia[ICD10: E11.65] Diagnosis: Hypothyroidism, unspecified[ICD10: E03.9] Giselle Knox MD, [facility] CPT-4: 38107 08/05/2015 ([id number]) 71697 EST. PATIENT, LEVEL III Diagnosis: ESSENTIAL HYPERTENSION[ICD9: 401.9] Diagnosis: DIABETES TYPE II[ICD9: 250.00] Jennifer Knox MD, [facility] CPT- 4: 92377 04/03/2015 ([id number]) 53222 EST. PATIENT, LEVEL IV Diagnosis: ESSENTIAL HYPERTENSION[ICD9: 401.9] Diagnosis: DIABETES TYPE II[ICD9: 250.00] Diagnosis: Hypothyroidism[ICD9: 244.9] Giselle Knox MD, [facility] CPT-4: 61519 01/30/2015 ([id number]) OFFICE VISIT, NEW - LEVEL 4 Diagnosis: ESSENTIAL HYPERTENSION[ICD9: 401.9] Diagnosis: DIABETES TYPE II[ICD9: 250.00] Diagnosis: Impacted cerumen[ICD9: 380.4] Jennifer Knox MD, [facility] CPT- 4: 55507 01/02/2015 Plan of Care Planned Activity Notes Codes Status Date Visit Plan: DM-patient here to discuss IPRO results -her overall average is good but she had 2 nights with low blood sugars -discussed her diet in detail today in the office and recommend she add a protein snack before bed when she eats an early supper. No change in medications today but continue to monitor blood sugars as directed. Patient and verbalized understanding of plan. 06/05/2018 Appointment: Giselle Mccoy WPtel: [facility] [phone] (15 min) Moderate 06/05/2018 Patient Education: Patient Medication Summary Completed 06/05/2018 Appointment: Nurse Visit 05/29/2018 Patient Education: Patient Medication Summary Completed 05/29/2018 Visit Plan: DM-here for IPRO placement in order to get a full picture of blood sugar readings in attempt to identify trends in blood sugars so we can better manage her medications. Return in 1 week for removal of IPRO. 05/22/2018 Appointment: [facility]iselle Mccoy WPtel: [phone] [facility] [phone] (30 min) Complex 05/22/2018 Patient Education: Patient Medication Summary Completed 05/22/2018 Patient Education: Diabetes Completed 05/22/2018 Visit Plan: Diabetes Mellitus - I have recommended for the patient to have follow up labs prior to the next office visit. The patient has been instructed to continue with current medications as previously directed, continue with regular FSBS monitoring to assure continued control of diabetes. Pt to call for any acute concerns, complaints, or if the blood glucose readings are starting to become less controlled. Hypertension - well controlled - continue with current medications, continue with no added salt diet. Pt has been encouraged to exercise daily. The pt has been advised to call the office if there are any acute concerns about change in blood pressure readings at home. Hypothyroidism - pt with chronic hypothyroidism, continue with current medication, will monitor pt to signs or symptoms of lack of adequate supplementation. Pt is to continue with current dose of medication unless directed otherwise. Check labs at regular intervals q 3 months or q 6 months based on previous levels of control. 05/15/2018 Appointment: [facility] Mccoy [facility]Ptel[phone] [facility] [phone] (15 min) Moderate 05/15/2018 Patient Education: Patient Medication Summary Completed 05/15/2018 Patient Education: Hypertension Completed 05/15/2018 Referral: Tom Pike Patient informed. Referral info faxed. Completed Visit Plan: Hypertension - well controlled - continue with current medications, continue with no added salt diet. Pt has been encouraged to exercise daily. The pt has been advised to call the office if there are any acute concerns about change in blood pressure readings at home. Hypothyroidism - pt with chronic hypothyroidism, continue with current medication, will monitor pt to signs or symptoms of lack of adequate supplementation. Pt is to continue with current dose of medication unless directed otherwise. Check labs at regular intervals wither q 3 months or q 6 months based on previous levels of control. Diabetes Mellitus - Uncontrolled - per recent FSBS reports. I have recommended for the patient to have follow up labs prior to the next office visit. The patient has been instructed to continue with current medications as previously directed, continue with regular FSBS monitoring to assure continued control of diabetes. Pt to call for any acute concerns, complaints, or if the blood glucose readings are starting to become less controlled. I have recommended for the patient to follow more strictly to the diabetic diet as discussed in clinic to allow for greater blood glucose control. Lumbar stenosis- refer to Dr Pike/Dr Lozada for evaluation-recommend PT 01/12/2018 Appointment: Giselle Mccoy WPtel: [phone] [phone] [place] (30 min) Complex 01/12/2018 Patient Education: Patient Medication Summary Completed 01/12/2018 Care Plan: Referral Order SNOMED-CT : [id number] Pending 01/12/2018 Visit Plan: Varicose veins-rx for compression stockings provided and instructed on use Low back pain-recommend xray lumbar spine Hypothyroidism-check labs DM-check Hgb A1c 11/25/2017 Appointment: Giselle Mccoy WPtel: [phone] [phone] [place] (30 min) Complex 11/25/2017 Patient Education: Patient Medication Summary Completed 11/25/2017 Care Plan: X-RAY EXAM L-S SPINE 2/ VWS LOINC : 67396-6 Pending 11/25/2017 Visit Plan: Edema - Left greater than right - will send for ultrasound and treat as indicated - pt has been advised to elevate legs to prevent dependent edema, compression has been recommended to help to naturally decrease peripheral edema. Diuretic use has been discussed and pt has been instructed in appropriate use of such medication as necessary to further attempt to reduce peripheral edema. Pt is to notify clinic or go to the ER with any acute changes or concerns. 09/15/2017 Appointment: Chasity Caldwell WPtel: [phone] [phone] [place] (30 min) Complex 09/15/2017 Patient Education: Patient Medication Summary Completed 09/15/2017 Visit Plan: Hypertension - well controlled - continue with current medications, continue with no added salt diet. Pt has been encouraged to exercise daily. The pt has been advised to call the office if there are any acute concerns about change in blood pressure readings at home. Diabetes Mellitus - Uncontrolled - per recent FSBS reports. I have recommended for the patient to have follow up labs prior to the next office visit. The patient has been instructed to continue with current medications as previously directed, continue with regular FSBS monitoring to assure continued control of diabetes. Pt to call for any acute concerns, complaints, or if the blood glucose readings are starting to become less controlled. I have recommended for the patient to follow more strictly to the diabetic diet as discussed in clinic to allow for greater blood glucose control. 08/17/2017 Appointment: Chasity Caldwell WPtel: [phone] [phone] (15 min) Moderate 08/17/2017 Patient Education: Patient Medication Summary Completed 08/17/2017 Visit Plan: Diabetes Mellitus - Uncontrolled - per recent FSBS reports. I have recommended for the patient to have follow up labs prior to the next office visit. The patient has been instructed to continue with current medications as previously directed, continue with regular FSBS monitoring to assure continued control of diabetes. Pt to call for any acute concerns, complaints, or if the blood glucose readings are starting to become less controlled. I have recommended for the patient to follow more strictly to the diabetic diet as discussed in clinic to allow for greater blood glucose control. Hypertension - well controlled - continue with current medications, continue with no added salt diet. Pt has been encouraged to exercise daily. The pt has been advised to call the office if there are any acute concerns about change in blood pressure readings at home. 07/19/2017 Appointment: Chasity Caldwell WPtel: [phone] [phone] (15 min) Moderate 07/19/2017 Patient Education: Patient Medication Summary Completed 07/19/2017 [facility]ment: [facility]el[facility] [phone] [facility] (15 min) Moderate 06/13/2017 Visit Plan: Hypertension - well controlled - continue with current medications, continue with no added salt diet. Pt has been encouraged to exercise daily. The pt has been advised to call the office if there are any acute concerns about change in blood pressure readings at home. Diabetes Mellitus - controlled - per recent FSBS reports. I have recommended for the patient to have follow up labs prior to the next office visit. The patient has been instructed to continue with current medications as previously directed, continue with regular FSBS monitoring to assure continued control of diabetes. Pt to call for any acute concerns, complaints, or if the blood glucose readings are starting to become less controlled. Hypothyroidism - pt with chronic hypothyroidism, continue with current medication, will monitor pt to signs or symptoms of lack of adequate supplementation. Pt is to continue with current dose of medication unless directed otherwise. Check labs at regular intervals wither q 3 months or q 6 months based on previous levels of control. Hyperlipidemia - pt has been counseled about appropriate diet, exercise, and need for low fat food choices. I have discussed the need for the patient to take medications as prescribed. If the patient has negative side effects from the medication, they are to CALL the office and not abruptly discontinue the medication without discussion with a practitioner in the office. We will check labs in 3-6 months for follow up on the patient's chronic medical problem and to assure normal liver response to medications. 05/19/2017 Appointment: Giselle Mccoy WPtel: [phone] [facility] [phone] (30 min) Complex 05/19/2017 Patient Education: Patient Medication Summary Completed 05/19/2017 Patient Education: Obesity Completed 05/19/2017 Appointment: Injection 04/06/2017 Patient Education: Patient Medication Summary Completed 04/06/2017 Visit Plan: Hypertension - well controlled - continue with current medications, continue with no added salt diet. Pt has been encouraged to exercise daily. The pt has been advised to call the office if there are any acute concerns about change in blood pressure readings at home. Diabetes Mellitus - controlled - per recent FSBS reports. I have recommended for the patient to have follow up labs prior to the next office visit. The patient has been instructed to continue with current medications as previously directed, continue with regular FSBS monitoring to assure continued control of diabetes. Pt to call for any acute concerns, complaints, or if the blood glucose readings are starting to become less controlled. Hypothyroidism - pt with chronic hypothyroidism, continue with current medication, will monitor pt to signs or symptoms of lack of adequate supplementation. Pt is to continue with current dose of medication unless directed otherwise. Check labs at regular intervals wither q 3 months or q 6 months based on previous levels of control. 02/15/2017 Appointment: Giselle Mccoy WPtel: [phone] [facility] [phone] (15 min) Moderate 02/15/2017 Patient Education: Patient Medication Summary Completed 02/15/2017 Patient Education: Obesity Completed 02/15/2017 Appointment: Injection 01/04/2017 Patient Education: Patient Medication Summary Completed 01/04/2017 Appointment: Injection 12/10/2016 Patient Education: Patient Medication Summary Completed 12/10/2016 Visit Plan: Diabetes Mellitus - I have recommended for the patient to have follow up labs prior to the next office visit. The patient has been instructed to continue with current medications as previously directed, continue with regular FSBS monitoring to assure continued control of diabetes. Pt to call for any acute concerns, complaints, or if the blood glucose readings are starting to become less controlled. URI - Pt advised to increase fluids, vitamin C. Discussed natural and expected course of this diagnosis and need to alert me if symptoms do not follow expected course, or if any worse. RX sent to patient's pharmacy. Hypothyroidism - pt with chronic hypothyroidism, continue with current medication, will monitor pt to signs or symptoms of lack of adequate supplementation. Pt is to continue with current dose of medication unless directed otherwise. Check labs at regular intervals wither q 3 months or q 6 months based on previous levels of control. Chronic renal disease-check labs today 11/16/2016 Appointment: Giselle Mccoy WPtel: [phone] [facility] [phone] (15 min) Moderate 11/16/2016 Patient Education: Patient Medication Summary Completed 11/16/2016 Patient Education: Obesity Completed 11/16/2016 Appointment: Injection 10/13/2016 Patient Education: Patient Medication Summary Completed 10/13/2016 Appointment: Injection 09/03/2016 Patient Education: Patient Medication Summary Completed 09/03/2016 Visit Plan: Diabetes Mellitus -I have recommended for the patient to have follow up labs prior to the next office visit. The patient has been instructed to continue with current medications as previously directed, continue with regular FSBS monitoring to assure continued control of diabetes. Pt to call for any acute concerns, complaints, or if the blood glucose readings are starting to become less controlled. I have recommended for the patient to follow more strictly to the diabetic diet as discussed in clinic to allow for greater blood glucose control. Hypertension - well controlled - continue with current medications, continue with no added salt diet. Pt has been encouraged to exercise daily. The pt has been advised to call the office if there are any acute concerns about change in blood pressure readings at home. Hypothyroidism - pt with chronic hypothyroidism, continue with current medication, will monitor pt to signs or symptoms of lack of adequate supplementation. Pt is to continue with current dose of medication unless directed otherwise. Check labs at regular intervals wither q 3 months or q 6 months based on previous levels of control. 08/19/2016 Appointment: Giselle Mccoy WPtel: [phone] (15 min) Moderate 08/19/2016 Patient Education: Patient Medication Summary Completed 08/19/2016 Patient Education: Obesity Completed 08/19/2016 Care Plan: Tsh Cancelled 08/19/2016 Care Plan: %Hba1C LOINC : 23288-8 Cancelled 08/19/2016 Care Plan: Lipid Cancelled 08/19/2016 Care Plan: Free T4 patient coming back next week Cancelled 08/19/2016 Appointment: Injection 07/29/2016 Patient Education: Patient Medication Summary Completed 07/29/2016 Appointment: Giselle Mccoy WPtel: [phone] (30 min) Complex 07/22/2016 Visit Plan: Diabetes-having hypoglycemia in the mornings- insulin adjusted-patient and verbalized understanding of plan. Follow up in 1 month-call sooner if still having low blood sugars. Sinus congestion- start claritin 07/15/2016 Appointment: Giselle Mccoy WPtel: [phone] (30 min) Complex 07/15/2016 Patient Education: Patient Medication Summary Completed 07/15/2016 Patient Education: Obesity Completed 07/15/2016 Visit Plan: Diabetes Mellitus - Uncontrolled - per recent FSBS reports. I have recommended for the patient to have follow up labs prior to the next office visit. The patient has been instructed to continue with current medications as previously directed, continue with regular FSBS monitoring to assure continued control of diabetes. Pt to call for any acute concerns, complaints, or if the blood glucose readings are starting to become less controlled. I have recommended for the patient to follow more strictly to the diabetic diet as discussed in clinic to allow for greater blood glucose control. Pt qualifies for diabetic shoes - she is displaying peripheral neuopathy symptoms - decreased sensation of feet bilaterally. Pt to use shoes daily to help prevent breakdown of feet/sores. Hypertension - well controlled - continue with current medications, continue with no added salt diet. Pt has been encouraged to exercise daily. The pt has been advised to call the office if there are any acute concerns about change in blood pressure readings at home. Hypothyroidism - pt with chronic hypothyroidism, continue with current medication, will monitor pt to signs or symptoms of lack of adequate supplementation. Pt is to continue with current dose of medication unless directed otherwise. Check labs at regular intervals wither q 3 months or q 6 months based on previous levels of control. 06/03/2016 Appointment: Jennifer Knox WPtel: [facility] (15 min) Moderate 06/03/2016 Patient Education: Patient Medication Summary Completed 06/03/2016 Patient Education: Obesity Completed 06/03/2016 Visit Plan: Hypertension - well controlled - continue with current medications, continue with no added salt diet. Pt has been encouraged to exercise daily. The pt has been advised to call the office if there are any acute concerns about change in blood pressure readings at home. Chronic renal disease stage 3-GFR improved to baseline-stay off HCTZ Diabetes Mellitus - I have recommended for the patient to have follow up labs prior to the next office visit. The patient has been instructed to continue with current medications as previously directed, continue with regular FSBS monitoring to assure continued control of diabetes. Pt to call for any acute concerns, complaints, or if the blood glucose readings are starting to become less controlled. DUE FOR REPEAT HGB A1C IN 1 MONTH 04/22/2016 Visit Plan: Hypertension - well controlled - continue with current medications, continue with no added salt diet. Pt has been encouraged to exercise daily. The pt has been advised to call the office if there are any acute concerns about change in blood pressure readings at home. Chronic renal disease stage 3-GFR improved to baseline-stay off HCTZ Diabetes Mellitus - I have recommended for the patient to have follow up labs prior to the next office visit. The patient has been instructed to continue with current medications as previously directed, continue with regular FSBS monitoring to assure continued control of diabetes. Pt to call for any acute concerns, complaints, or if the blood glucose readings are starting to become less controlled. DUE FOR REPEAT HGB A1C IN 1 MONTH 04/22/2016 Visit Plan: Hypertension - well controlled - continue with current medications, continue with no added salt diet. Pt has been encouraged to exercise daily. The pt has been advised to call the office if there are any acute concerns about change in blood pressure readings at home. Chronic renal disease stage 3-GFR improved to baseline-stay off HCTZ Diabetes Mellitus - I have recommended for the patient to have follow up labs prior to the next office visit. The patient has been instructed to continue with current medications as previously directed, continue with regular FSBS monitoring to assure continued control of diabetes. Pt to call for any acute concerns, complaints, or if the blood glucose readings are starting to become less controlled. DUE FOR REPEAT HGB A1C IN 1 MONTH 04/22/2016 Visit Plan: Hypertension - well controlled - continue with current medications, continue with no added salt diet. Pt has been encouraged to exercise daily. The pt has been advised to call the office if there are any acute concerns about change in blood pressure readings at home. Chronic renal disease stage 3-GFR improved to baseline-stay off HCTZ Diabetes Mellitus - I have recommended for the patient to have follow up labs prior to the next office visit. The patient has been instructed to continue with current medications as previously directed, continue with regular FSBS monitoring to assure continued control of diabetes. Pt to call for any acute concerns, complaints, or if the blood glucose readings are starting to become less controlled. DUE FOR REPEAT HGB A1C IN 1 MONTH 04/22/2016 Visit Plan: Hypertension - well controlled - continue with current medications, continue with no added salt diet. Pt has been encouraged to exercise daily. The pt has been advised to call the office if there are any acute concerns about change in blood pressure readings at home. Chronic renal disease stage 3-GFR improved to baseline-stay off HCTZ Diabetes Mellitus - I have recommended for the patient to have follow up labs prior to the next office visit. The patient has been instructed to continue with current medications as previously directed, continue with regular FSBS monitoring to assure continued control of diabetes. Pt to call for any acute concerns, complaints, or if the blood glucose readings are starting to become less controlled. DUE FOR REPEAT HGB A1C IN 1 MONTH 04/22/2016 Appointment: Giselle Mccoy WPtel: [phone] [facility] [phone] (15 min) Moderate 04/22/2016 Patient Education: Patient Medication Summary Completed 04/22/2016 Visit Plan: Hypertension - well controlled - continue with current medications, continue with no added salt diet. Pt has been encouraged to exercise daily. The pt has been advised to call the office if there are any acute concerns about change in blood pressure readings at home. Diabetes Mellitus - controlled - per recent FSBS reports. I have recommended for the patient to have follow up labs prior to the next office visit. The patient has been instructed to continue with current medications as previously directed, continue with regular FSBS monitoring to assure continued control of diabetes. Pt to call for any acute concerns, complaints, or if the blood glucose readings are starting to become less controlled. 01/22/2016 Appointment: (15 min) Moderate 01/22/2016 Patient Education: Patient Medication Summary Completed 01/22/2016 Patient Education: Obesity Completed 01/22/2016 Patient Education: Hypertension Completed 01/22/2016 Visit Plan: Hypertension - well controlled - continue with current medications, continue with no added salt diet. Pt has been encouraged to exercise daily. The pt has been advised to call the office if there are any acute concerns about change in blood pressure readings at home. Diabetes Mellitus - Uncontrolled -I have recommended for the patient to have follow up labs prior to the next office visit. The patient has been instructed to continue with current medications as previously directed, continue with regular FSBS monitoring to assure continued control of diabetes. Pt to call for any acute concerns, complaints, or if the blood glucose readings are starting to become less controlled. I have recommended for the patient to follow more strictly to the diabetic diet as discussed in clinic to allow for greater blood glucose control. 10/23/2015 Appointment: (30 min) Complex 10/23/2015 Patient Education: Patient Medication Summary Completed 10/23/2015 Patient Education: Obesity Completed 10/23/2015 Patient Education: Hypertension Completed 10/23/2015 Patient Education: Patient Medication Summary Completed 09/15/2015 Visit Plan: Hypertension - well controlled - continue with current medications, continue with no added salt diet. Pt has been encouraged to exercise daily. The pt has been advised to call the office if there are any acute concerns about change in blood pressure readings at home. Diabetes Mellitus - pt states that her sugars have been running low - in the 50s and 60s. I have recommended for the patient to have follow up labs prior to the next office visit. The patient has been instructed to continue with current medications as previously directed, continue with regular FSBS monitoring to assure continued control of diabetes. Pt to call for any acute concerns, complaints, or if the blood glucose readings are starting to become less controlled. Hypothyroidism - pt with chronic hypothyroidism, continue with current medication, will monitor pt to signs or symptoms of lack of adequate supplementation. Pt is to continue with current dose of medication unless directed otherwise. Check labs at regular intervals wither q 3 months or q 6 months based on previous levels of control. 09/12/2015 Patient Education: Patient Medication Summary Completed 09/12/2015 Patient Education: Hypertension Completed 09/12/2015 Appointment: Injection 09/08/2015 Patient Education: Patient Medication Summary Completed 09/08/2015 Appointment: Injection 09/01/2015 Patient Education: Patient Medication Summary Completed 09/01/2015 Appointment: Injection 08/25/2015 Patient Education: Patient Medication Summary Completed 08/25/2015 Patient Education: Patient Medication Summary Completed 08/06/2015 Visit Plan: Hypertension - well controlled - continue with current medications, continue with no added salt diet. Pt has been encouraged to exercise daily. The pt has been advised to call the office if there are any acute concerns about change in blood pressure readings at home. Diabetes Mellitus - I have recommended for the patient to have follow up labs prior to the next office visit. The patient has been instructed to continue with current medications as previously directed, continue with regular FSBS monitoring to assure continued control of diabetes. Pt to call for any acute concerns, complaints, or if the blood glucose readings are starting to become less controlled. Hypothyroidism - pt with chronic hypothyroidism, continue with current medication, will monitor pt to signs or symptoms of lack of adequate supplementation. Pt is to continue with current dose of medication unless directed otherwise. Check labs at regular intervals wither q 3 months or q 6 months based on previous levels of control. 08/05/2015 Appointment: (15 min) Moderate 08/05/2015 Patient Education: Patient Medication Summary Completed 08/05/2015 Patient Education: Hypertension Completed 08/05/2015 Patient Education: Patient Medication Summary Completed 04/11/2015 Visit Plan: Hypertension - well controlled - continue with current medications, continue with no added salt diet. Pt has been encouraged to exercise daily. The pt has been advised to call the office if there are any acute concerns about change in blood pressure readings at home. Diabetes Mellitus - Uncontrolled - per recent FSBS reports. I have recommended for the patient to have follow up labs prior to the next office visit. The patient has been instructed to continue with current medications as previously directed, continue with regular FSBS monitoring to assure continued control of diabetes. Pt to call for any acute concerns, complaints, or if the blood glucose readings are starting to become less controlled. I have recommended for the patient to follow more strictly to the diabetic diet as discussed in clinic to allow for greater blood glucose control. 04/03/2015 Appointment: (30 min) Complex 04/03/2015 Patient Education: Patient Medication Summary Completed 04/03/2015 Patient Education: Hypertension Completed 04/03/2015 Visit Plan: Hypertension - uncontrolled - The patient has been counseled to cut back on salt in diet for a no added salt diet, low fat diet, start an exercise program with low weight bearing exercises and higher aerobic activity for heart health. The patient is to check blood pressure readings as an outpatient and either fax, call, or email the readings to the office next week for practitioner to review. The pt is to call for acute concerns. Diabetes Mellitus - Uncontrolled - I have recommended for the patient to have follow up labs prior to the next office visit. The patient has been instructed to continue with current medications as previously directed, continue with regular FSBS monitoring to assure continued control of diabetes. Pt to call for any acute concerns, complaints, or if the blood glucose readings are starting to become less controlled. I have recommended for the patient to follow more strictly to the diabetic diet as discussed in clinic to allow for greater blood glucose control. Hypothyroidism - pt with chronic hypothyroidism, continue with current medication, will monitor pt to signs or symptoms of lack of adequate supplementation. Pt is to continue with current dose of medication unless directed otherwise. Check labs at regular intervals wither q 3 months or q 6 months based on previous levels of control. 01/30/2015 Appointment: (15 min) Moderate 01/30/2015 Patient Education: Patient Medication Summary Completed 01/30/2015 Patient Education: Hypertension Completed 01/30/2015 Visit Plan: Hypertension - well controlled - continue with current medications, continue with no added salt diet. Pt has been encouraged to exercise daily. The pt has been advised to call the office if there are any acute concerns about change in blood pressure readings at home. Diabetes Mellitus - controlled - per recent FSBS reports. I have recommended for the patient to have follow up labs prior to the next office visit. The patient has been instructed to continue with current medications as previously directed, continue with regular FSBS monitoring to assure continued control of diabetes. Pt to call for any acute concerns, complaints, or if the blood glucose readings are starting to become less controlled. Cerumen Impaction - pt to use sweet oil to ears, will re-eval pt in a month and flush ears if needed. 01/02/2015 Appointment: Jennifer Knox WPtel: [facility] [id number] [place] [facility] New Patient 01/02/2015 Patient Education: Patient Medication Summary Completed 01/02/2015 Patient Education: Hypertension Completed 01/02/2015 Referral: Tom Pike Referral Appointment Requested Instructions Comment decrease terazosin to 1/2 pill daily use sweet oil or mineral oil in left ear nightly x 1 month . Hypertension - well controlled - continue with current medications, continue with no added salt diet. Pt has been encouraged to exercise daily. The pt has been advised to call the office if there are any acute concerns about change in blood pressure readings at home. Diabetes Mellitus - controlled - per recent FSBS reports. I have recommended for the patient to have follow up labs prior to the next office visit. The patient has been instructed to continue with current medications as previously directed, continue with regular FSBS monitoring to assure continued control of diabetes. Pt to call for any acute concerns, complaints, or if the blood glucose readings are starting to become less controlled. Cerumen Impaction - pt to use sweet oil to ears, will re-eval pt in a month and flush ears if needed. . Hypertension - well controlled - continue with current medications, continue with no added salt diet. Pt has been encouraged to exercise daily. The pt has been advised to call the office if there are any acute concerns about change in blood pressure readings at home. Chronic renal disease stage 3-GFR improved to baseline-stay off HCTZ Diabetes Mellitus - I have recommended for the patient to have follow up labs prior to the next office visit. The patient has been instructed to continue with current medications as previously directed, continue with regular FSBS monitoring to assure continued control of diabetes. Pt to call for any acute concerns, complaints, or if the blood glucose readings are starting to become less controlled. DUE FOR REPEAT HGB A1C IN 1 MONTH Increase 70/30 insulin to 16 units, keep lantus at 26 units.. Diabetes Mellitus - Uncontrolled - per recent FSBS reports. I have recommended for the patient to have follow up labs prior to the next office visit. The patient has been instructed to continue with current medications as previously directed, continue with regular FSBS monitoring to assure continued control of diabetes. Pt to call for any acute concerns, complaints, or if the blood glucose readings are starting to become less controlled. I have recommended for the patient to follow more strictly to the diabetic diet as discussed in clinic to allow for greater blood glucose control. Hypertension - well controlled - continue with current medications, continue with no added salt diet. Pt has been encouraged to exercise daily. The pt has been advised to call the office if there are any acute concerns about change in blood pressure readings at home. RETURN TUESDAY FOR REMOVAL IF DEVICE . DM-here for IPRO placement in order to get a full picture of blood sugar readings in attempt to identify trends in blood sugars so we can better manage her medications. Return in 1 week for removal of IPRO. EAT A PROTEIN SNACK BEFORE BED CHECK LABS -WILL CALL WITH LAB RESULTS AND IF WE WANT TO CHANGE INSULIN BASED ON HGB A1C B12 INJECTION . Hypertension - well controlled - continue with current medications, continue with no added salt diet. Pt has been encouraged to exercise daily. The pt has been advised to call the office if there are any acute concerns about change in blood pressure readings at home. Diabetes Mellitus - controlled - per recent FSBS reports. I have recommended for the patient to have follow up labs prior to the next office visit. The patient has been instructed to continue with current medications as previously directed, continue with regular FSBS monitoring to assure continued control of diabetes. Pt to call for any acute concerns, complaints, or if the blood glucose readings are starting to become less controlled. Hypothyroidism - pt with chronic hypothyroidism, continue with current medication, will monitor pt to signs or symptoms of lack of adequate supplementation. Pt is to continue with current dose of medication unless directed otherwise. Check labs at regular intervals wither q 3 months or q 6 months based on previous levels of control. Hyperlipidemia - pt has been counseled about appropriate diet, exercise, and need for low fat food choices. I have discussed the need for the patient to take medications as prescribed. If the patient has negative side effects from the medication, they are to CALL the office and not abruptly discontinue the medication without discussion with a practitioner in the office. We will check labs in 3-6 months for follow up on the patient's chronic medical problem and to assure normal liver response to medications. Decrease morning humulin 70/30 to 18 units continue to check blood sugars write them down and let us know how they are doing. . Hypertension - well controlled - continue with current medications, continue with no added salt diet. Pt has been encouraged to exercise daily. The pt has been advised to call the office if there are any acute concerns about change in blood pressure readings at home. Diabetes Mellitus - pt states that her sugars have been running low - in the 50s and 60s. I have recommended for the patient to have follow up labs prior to the next office visit. The patient has been instructed to continue with current medications as previously directed, continue with regular FSBS monitoring to assure continued control of diabetes. Pt to call for any acute concerns, complaints, or if the blood glucose readings are starting to become less controlled. Hypothyroidism - pt with chronic hypothyroidism, continue with current medication, will monitor pt to signs or symptoms of lack of adequate supplementation. Pt is to continue with current dose of medication unless directed otherwise. Check labs at regular intervals wither q 3 months or q 6 months based on previous levels of control. BRING YOUR BLOOD SUGAR LOG TO YOUR NEXT APPOINTMENT . Hypertension - uncontrolled - The patient has been counseled to cut back on salt in diet for a no added salt diet, low fat diet, start an exercise program with low weight bearing exercises and higher aerobic activity for heart health. The patient is to check blood pressure readings as an outpatient and either fax , call, or email the readings to the office next week for practitioner to review. The pt is to call for acute concerns. Diabetes Mellitus - Uncontrolled - I have recommended for the patient to have follow up labs prior to the next office visit. The patient has been instructed to continue with current medications as previously directed, continue with regular FSBS monitoring to assure continued control of diabetes. Pt to call for any acute concerns, complaints, or if the blood glucose readings are starting to become less controlled. I have recommended for the patient to follow more strictly to the diabetic diet as discussed in clinic to allow for greater blood glucose control. Hypothyroidism - pt with chronic hypothyroidism, continue with current medication, will monitor pt to signs or symptoms of lack of adequate supplementation. Pt is to continue with current dose of medication unless directed otherwise. Check labs at regular intervals wither q 3 months or q 6 months based on previous levels of control. compression stockings . Varicose veins-rx for compression stockings provided and instructed on use Low back pain-recommend xray lumbar spine Hypothyroidism-check labs DM-check Hgb A1c . Diabetes Mellitus - I have recommended for the patient to have follow up labs prior to the next office visit. The patient has been instructed to continue with current medications as previously directed, continue with regular FSBS monitoring to assure continued control of diabetes. Pt to call for any acute concerns, complaints, or if the blood glucose readings are starting to become less controlled. Hypertension - well controlled - continue with current medications, continue with no added salt diet. Pt has been encouraged to exercise daily. The pt has been advised to call the office if there are any acute concerns about change in blood pressure readings at home. Hypothyroidism - pt with chronic hypothyroidism, continue with current medication, will monitor pt to signs or symptoms of lack of adequate supplementation. Pt is to continue with current dose of medication unless directed otherwise. Check labs at regular intervals q 3 months or q 6 months based on previous levels of control. Increase morning insulin to 18 units 'Decrease evening insulin to 24 units . Hypertension - well controlled - continue with current medications, continue with no added salt diet. Pt has been encouraged to exercise daily. The pt has been advised to call the office if there are any acute concerns about change in blood pressure readings at home. Diabetes Mellitus - Uncontrolled - per recent FSBS reports. I have recommended for the patient to have follow up labs prior to the next office visit. The patient has been instructed to continue with current medications as previously directed, continue with regular FSBS monitoring to assure continued control of diabetes. Pt to call for any acute concerns, complaints, or if the blood glucose readings are starting to become less controlled. I have recommended for the patient to follow more strictly to the diabetic diet as discussed in clinic to allow for greater blood glucose control. COME BACK NEXT WEEK FOR BLOOD WORK TO REPEAT HGB A1C CONTINUE TO MONITOR BLOOD SUGARS-BRING LOG TO NEXT APPOINTMENT . Hypertension - well controlled - continue with current medications, continue with no added salt diet. Pt has been encouraged to exercise daily. The pt has been advised to call the office if there are any acute concerns about change in blood pressure readings at home. Diabetes Mellitus - Uncontrolled - per recent FSBS reports. I have recommended for the patient to have follow up labs prior to the next office visit. The patient has been instructed to continue with current medications as previously directed, continue with regular FSBS monitoring to assure continued control of diabetes. Pt to call for any acute concerns, complaints, or if the blood glucose readings are starting to become less controlled. I have recommended for the patient to follow more strictly to the diabetic diet as discussed in clinic to allow for greater blood glucose control. . Hypertension - well controlled - continue with current medications, continue with no added salt diet. Pt has been encouraged to exercise daily. The pt has been advised to call the office if there are any acute concerns about change in blood pressure readings at home. Hypothyroidism - pt with chronic hypothyroidism, continue with current medication, will monitor pt to signs or symptoms of lack of adequate supplementation. Pt is to continue with current dose of medication unless directed otherwise. Check labs at regular intervals wither q 3 months or q 6 months based on previous levels of control. Diabetes Mellitus - Uncontrolled - per recent FSBS reports. I have recommended for the patient to have follow up labs prior to the next office visit. The patient has been instructed to continue with current medications as previously directed, continue with regular FSBS monitoring to assure continued control of diabetes. Pt to call for any acute concerns, complaints, or if the blood glucose readings are starting to become less controlled. I have recommended for the patient to follow more strictly to the diabetic diet as discussed in clinic to allow for greater blood glucose control. Lumbar stenosis-refer to Dr Pike/Dr Lozada for evaluation-recommend PT . Diabetes Mellitus - Uncontrolled - per recent FSBS reports. I have recommended for the patient to have follow up labs prior to the next office visit. The patient has been instructed to continue with current medications as previously directed, continue with regular FSBS monitoring to assure continued control of diabetes. Pt to call for any acute concerns, complaints, or if the blood glucose readings are starting to become less controlled. I have recommended for the patient to follow more strictly to the diabetic diet as discussed in clinic to allow for greater blood glucose control. Pt qualifies for diabetic shoes - she is displaying peripheral neuopathy symptoms - decreased sensation of feet bilaterally. Pt to use shoes daily to help prevent breakdown of feet/sores. Hypertension - well controlled - continue with current medications, continue with no added salt diet. Pt has been encouraged to exercise daily. The pt has been advised to call the office if there are any acute concerns about change in blood pressure readings at home. Hypothyroidism - pt with chronic hypothyroidism, continue with current medication, will monitor pt to signs or symptoms of lack of adequate supplementation. Pt is to continue with current dose of medication unless directed otherwise. Check labs at regular intervals wither q 3 months or q 6 months based on previous levels of control. . Hypertension - well controlled - continue with current medications, continue with no added salt diet. Pt has been encouraged to exercise daily. The pt has been advised to call the office if there are any acute concerns about change in blood pressure readings at home. Diabetes Mellitus - controlled - per recent FSBS reports. I have recommended for the patient to have follow up labs prior to the next office visit. The patient has been instructed to continue with current medications as previously directed, continue with regular FSBS monitoring to assure continued control of diabetes. Pt to call for any acute concerns, complaints, or if the blood glucose readings are starting to become less controlled. . Hypertension - well controlled - continue with current medications, continue with no added salt diet. Pt has been encouraged to exercise daily. The pt has been advised to call the office if there are any acute concerns about change in blood pressure readings at home. Chronic renal disease stage 3-GFR improved to baseline-stay off HCTZ Diabetes Mellitus - I have recommended for the patient to have follow up labs prior to the next office visit. The patient has been instructed to continue with current medications as previously directed, continue with regular FSBS monitoring to assure continued control of diabetes. Pt to call for any acute concerns, complaints, or if the blood glucose readings are starting to become less controlled. DUE FOR REPEAT HGB A1C IN 1 MONTH . Hypertension - well controlled - continue with current medications, continue with no added salt diet. Pt has been encouraged to exercise daily. The pt has been advised to call the office if there are any acute concerns about change in blood pressure readings at home. Chronic renal disease stage 3-GFR improved to baseline-stay off HCTZ Diabetes Mellitus - I have recommended for the patient to have follow up labs prior to the next office visit. The patient has been instructed to continue with current medications as previously directed, continue with regular FSBS monitoring to assure continued control of diabetes. Pt to call for any acute concerns, complaints, or if the blood glucose readings are starting to become less controlled. DUE FOR REPEAT HGB A1C IN 1 MONTH . Hypertension - well controlled - continue with current medications, continue with no added salt diet. Pt has been encouraged to exercise daily. The pt has been advised to call the office if there are any acute concerns about change in blood pressure readings at home. Chronic renal disease stage 3-GFR improved to baseline-stay off HCTZ Diabetes Mellitus - I have recommended for the patient to have follow up labs prior to the next office visit. The patient has been instructed to continue with current medications as previously directed, continue with regular FSBS monitoring to assure continued control of diabetes. Pt to call for any acute concerns, complaints, or if the blood glucose readings are starting to become less controlled. DUE FOR REPEAT HGB A1C IN 1 MONTH . Hypertension - well controlled - continue with current medications, continue with no added salt diet. Pt has been encouraged to exercise daily. The pt has been advised to call the office if there are any acute concerns about change in blood pressure readings at home. Chronic renal disease stage 3-GFR improved to baseline-stay off HCTZ Diabetes Mellitus - I have recommended for the patient to have follow up labs prior to the next office visit. The patient has been instructed to continue with current medications as previously directed, continue with regular FSBS monitoring to assure continued control of diabetes. Pt to call for any acute concerns, complaints, or if the blood glucose readings are starting to become less controlled. DUE FOR REPEAT HGB A1C IN 1 MONTH . Hypertension - well controlled - continue with current medications, continue with no added salt diet. Pt has been encouraged to exercise daily. The pt has been advised to call the office if there are any acute concerns about change in blood pressure readings at home. Diabetes Mellitus - Uncontrolled -I have recommended for the patient to have follow up labs prior to the next office visit. The patient has been instructed to continue with current medications as previously directed, continue with regular FSBS monitoring to assure continued control of diabetes. Pt to call for any acute concerns, complaints, or if the blood glucose readings are starting to become less controlled. I have recommended for the patient to follow more strictly to the diabetic diet as discussed in clinic to allow for greater blood glucose control. COME BACK NEXT WEEK FASTING . Diabetes Mellitus -I have recommended for the patient to have follow up labs prior to the next office visit. The patient has been instructed to continue with current medications as previously directed, continue with regular FSBS monitoring to assure continued control of diabetes. Pt to call for any acute concerns, complaints, or if the blood glucose readings are starting to become less controlled. I have recommended for the patient to follow more strictly to the diabetic diet as discussed in clinic to allow for greater blood glucose control. Hypertension - well controlled - continue with current medications, continue with no added salt diet. Pt has been encouraged to exercise daily. The pt has been advised to call the office if there are any acute concerns about change in blood pressure readings at home. Hypothyroidism - pt with chronic hypothyroidism, continue with current medication, will monitor pt to signs or symptoms of lack of adequate supplementation. Pt is to continue with current dose of medication unless directed otherwise. Check labs at regular intervals wither q 3 months or q 6 months based on previous levels of control. zpack anti histamine such as zyrtec daily call if cough does not resolve check labs today . Diabetes Mellitus - I have recommended for the patient to have follow up labs prior to the next office visit. The patient has been instructed to continue with current medications as previously directed, continue with regular FSBS monitoring to assure continued control of diabetes. Pt to call for any acute concerns, complaints, or if the blood glucose readings are starting to become less controlled. URI - Pt advised to increase fluids, vitamin C. Discussed natural and expected course of this diagnosis and need to alert me if symptoms do not follow expected course, or if any worse. RX sent to patient's pharmacy. Hypothyroidism - pt with chronic hypothyroidism, continue with current medication, will monitor pt to signs or symptoms of lack of adequate supplementation. Pt is to continue with current dose of medication unless directed otherwise. Check labs at regular intervals wither q 3 months or q 6 months based on previous levels of control. Chronic renal disease-check labs today . Edema - Left greater than right - will send for ultrasound and treat as indicated - pt has been advised to elevate legs to prevent dependent edema, compression has been recommended to help to naturally decrease peripheral edema. Diuretic use has been discussed and pt has been instructed in appropriate use of such medication as necessary to further attempt to reduce peripheral edema. Pt is to notify clinic or go to the ER with any acute changes or concerns. . DM-patient here to discuss IPRO results -her overall average is good but she had 2 nights with low blood sugars -discussed her diet in detail today in the office and recommend she add a protein snack before bed when she eats an early supper. No change in medications today but continue to monitor blood sugars as directed. Patient and verbalized understanding of plan. CHECK LABS WITH NEXT APPOINTMENT . Hypertension - well controlled - continue with current medications, continue with no added salt diet. Pt has been encouraged to exercise daily. The pt has been advised to call the office if there are any acute concerns about change in blood pressure readings at home. Diabetes Mellitus - controlled - per recent [facility]BS reports. I have recommended for the patient to have follow up labs prior to the next office visit. The patient has been instructed to continue with current medications as previously directed, continue with regular FSBS monitoring to assure continued control of diabetes. Pt to call for any acute concerns, complaints, or if the blood glucose readings are starting to become less controlled. Hypothyroidism - pt with chronic hypothyroidism, continue with current medication, will monitor pt to signs or symptoms of lack of adequate supplementation. Pt is to continue with current dose of medication unless directed otherwise. Check labs at regular intervals wither q 3 months or q 6 months based on previous levels of control. DECREASE NOVOLIN 70/30 18 UNITS IN THE MORNING DECREASE LANTUS TO 30 UNITS AT BEDTIME CONTINUE TO MONITOR BLOOD SUGARS AND BRING LOG TO YOUR NEXT APPOINTMENT CLARITIN 10MG DAILY-CALL ME IF YOUR COUGH DOES NOT IMPROVE AND I CAN SEND IN A PRESCRIPTION FOR AN ANTIBIOTIC . Diabetes-having hypoglycemia in the mornings-insulin adjusted-patient and verbalized understanding of plan. Follow up in 1 month-call sooner if still having low blood sugars. Sinus congestion-start claritin . Hypertension - well controlled - continue with current medications, continue with no added salt diet. Pt has been encouraged to exercise daily. The pt has been advised to call the office if there are any acute concerns about change in blood pressure readings at home. Diabetes Mellitus - I have recommended for the patient to have follow up labs prior to the next office visit. The patient has been instructed to continue with current medications as previously directed, continue with regular FSBS monitoring to assure continued control of diabetes. Pt to call for any acute concerns, complaints, or if the blood glucose readings are starting to become less controlled. Hypothyroidism - pt with chronic hypothyroidism, continue with current medication, will monitor pt to signs or symptoms of lack of adequate supplementation. Pt is to continue with current dose of medication unless directed otherwise. Check labs at regular intervals wither q 3 months or q 6 months based on previous levels of control.
--- OUTSIDE RECORDS SUMMARY | 2018-06-17 10:23 | XMS REPORT | CCD ---
Author Author [facility] Organization [facility] Address [address] [place] [address] Phone Care Team Providers Care Jigman Name Role Phone PP Unavailable CCM Unavailable Summary Purpose Interface Exchange Insurance Providers Payer name Policy type / Coverage type Covered democrat ID Effective Begin Date Effective End Date [facility] Commercial Insurance [id number] Unknown Family history Runs in the family [...] Start Date Stop Date Status Fill Instructions Humulin 70/30 U-100 Insulin 100 unit/mL subcutaneous suspension RxNorm: 115597 18 Unit(s) SQ QAM 05/15/2018 No Stop Date Active levothyroxine 100 mcg tablet RxNorm: 559398 1 Tablet(s) PO daily 05/11/2018 09/07/2018 Active carvedilol 12.5 mg tablet RxNorm: 847764 TAKE ONE TABLET BY MOUTH TWICE A DAY 05/05/2018 07/28/2019 Active losartan 100 mg tablet RxNorm: 038355 TAKE ONE TABLET BY MOUTH DAILY 03/24/2018 06/10/2020 Active terazosin 2 mg capsule RxNorm: 803700 TAKE ONE CAPSULE BY MOUTH DAILY 03/07/2018 03/01/2019 Active Lantus Solostar U-100 Insulin 100 unit/mL (3 mL) subcutaneous pen RxNorm: 137474 Unit(s) INJECT 24 UNITS UNDER THE SKIN EVERY NIGHT AT BEDTIME 01/12/2018 No Stop Date Active cyanocobalamin (vit B-12) 1,000 mcg/mL injection solution RxNorm: 111188 1 Milliliter(s) Inj 01/12/2018 01/12/2018 Inactive Humulin 70/30 U-100 Insulin 100 unit/mL subcutaneous suspension RxNorm: 328575 INJECT 18 UNITS UNDER THE SKIN EVERY MORNING 11/14/2017 03/05/2018 Inactive carvedilol 12.5 mg tablet RxNorm: 159129 TAKE ONE TABLET BY MOUTH TWICE A DAY 11/07/2017 05/04/2018 Inactive cyanocobalamin (vit B-12) 1,000 mcg/mL injection solution RxNorm: 349384 Milliliter(s) Inj 09/15/2017 09/15/2017 Inactive terazosin 2 mg capsule RxNorm: 899495 Capsule(s) TAKE ONE CAPSULE BY MOUTH DAILY 09/07/2017 03/05/2018 Inactive Lantus Solostar 100 unit/mL (3 mL) subcutaneous insulin pen RxNorm: 230186 INJECT 35 UNITS UNDER THE SKIN EVERY NIGHT AT BEDTIME 201701/11/2018 Inactive One Touch Test strips RxNorm: 1 test Miscellaneous BID 201708/16/2018 Active Contour Test Strips RxNorm: TEST BLOOD SUGAR TWO TIMES A DAY E11.65 08/22/2017 02/22/2019 Active Tamiflu 75 mg capsule RxNorm: 265767 1 Capsule(s) PO daily 08/1708/16/2017 Inactive Tamiflu 75 mg capsule RxNorm: 214147 1 Capsule(s) PO daily 08/1708/26/2017 Inactive cyanocobalamin (vit B-12) 1,000 mcg/mL injection solution RxNorm: 437360 1 Milliliter(s) Inj 08/17/2017 08/17/2017 Inactive carvedilol 12.5 mg tablet RxNorm: 787940 TAKE ONE TABLET BY MOUTH TWICE A DAY 08/10/2017 11/06/2017 Inactive cyanocobalamin (vit B-12) 1,000 mcg/mL injection solution RxNorm: 523721 1 Milliliter(s) Inj 07/19/2017 07/19/2017 Inactive Humulin 70/30 100 unit/mL subcutaneous suspension RxNorm: 029574 14 Unit(s) SQ QAM 07/06/2017 05/14/2018 Inactive Lantus Solostar 100 unit/mL (3 mL) subcutaneous insulin pen RxNorm: 856216 26 Unit(s) SQ QHS 07/06/2017 08/28/2017 Inactive losartan 100 mg tablet RxNorm: 736774 TAKE ONE TABLET BY MOUTH DAILY 06/07/2017 03/23/2018 Inactive Lantus Solostar 100 unit/mL (3 mL) subcutaneous insulin pen RxNorm: 768379 28 Unit(s) SQ QHS 05/19/2017 07/05/2017 Inactive cyanocobalamin (vit B-12) 1,000 mcg/mL injection solution RxNorm: 395365 1 Milliliter(s) Inj 05/19/2017 05/19/2017 Inactive terazosin 2 mg capsule RxNorm: 666087 TAKE ONE CAPSULE BY MOUTH DAILY 05/16/2017 09/06/2017 Inactive cyanocobalamin (vit B-12) 1,000 mcg/mL injection solution RxNorm: 565298 1 Milliliter(s) Inj 04/06/2017 04/06/2017 Inactive cyanocobalamin (vit B-12) 1,000 mcg/mL injection solution RxNorm: 075929 Milliliter(s) Inj 01/04/2017 01/04/2017 Inactive Humulin 70/30 U-100 Insulin 100 unit/mL subcutaneous suspension RxNorm: 928413 18 Unit(s) SQ QAM 12/22/20162016 Inactive cyanocobalamin (vit B-12) 1,000 mcg/mL injection solution RxNorm: 937989 1 Milliliter(s) Inj 12/10/2016 12/10/2016 Inactive Zithromax Z-Jose 250 mg tablet RxNorm: 531167 1 Tablet(s) PO UD 11/16/2016 11/20/2016 Inactive terazosin 2 mg capsule RxNorm: 287254 TAKE ONE CAPSULE BY MOUTH DAILY 11/08/2016 05/06/2017 Inactive Lantus Solostar 100 unit/mL (3 mL) subcutaneous insulin pen RxNorm: 711236 INJECT 35 UNITS UNDER THE SKIN EVERY NIGHT AT BEDTIME 201607/18/2017 Inactive cyanocobalamin (vit B-12) 1,000 mcg/mL injection solution RxNorm: 563512 Milliliter(s) Inj 10/13/2016 10/13/2016 Inactive cyanocobalamin (vit B-12) 1,000 mcg/mL injection solution RxNorm: 303805 1 Milliliter(s) Inj 09/03/2016 09/03/2016 Inactive Contour Test Strips RxNorm: TEST BLOOD SUGAR TWO TIMES A DAY E11.65 08/19/2016 08/21/2017 Inactive carvedilol 12.5 mg tablet RxNorm: 127010 TAKE ONE TABLET BY MOUTH TWICE A DAY 08/05/2016 01/01/2017 Inactive carvedilol 12.5 mg tablet RxNorm: 907883 TAKE ONE TABLET BY MOUTH TWICE A DAY 08/05/2016 01/01/2017 Inactive carvedilol 12.5 mg tablet RxNorm: 156452 1 Tablet(s) PO BID 05/201701/30/2017 Inactive cyanocobalamin (vit B-12) 1,000 mcg/mL injection solution RxNorm: 900461 Milliliter(s) Inj 07/29/2016 07/29/2016 Inactive Lantus Solostar 100 unit/mL (3 mL) subcutaneous insulin pen RxNorm: 522184 30 Unit(s) SQ QHS 07/15/2016 05/18/2017 Inactive Humulin 70/30 100 unit/mL subcutaneous suspension RxNorm: 099029 18 Unit(s) SQ QAM 07/15/2016 12/21/2016 Inactive losartan 100 mg tablet RxNorm: 861634 TAKE ONE TABLET BY MOUTH DAILY 07/08/2016 06/02/2017 Inactive terazosin 2 mg capsule RxNorm: 498775 TAKE ONE CAPSULE BY MOUTH DAILY 06/10/2016 11/06/2016 Inactive cyanocobalamin (vit B-12) 1,000 mcg/mL injection solution RxNorm: 831046 1 Milliliter(s) Inj 06/03/2016 06/03/2016 Inactive Humulin 70/30 100 unit/mL subcutaneous suspension RxNorm: 781464 Unit(s) INJECT 10 UNITS UNDER THE SKIN 06/01/20162015 Inactive Request already responded to by other means (e.g. phone or fax) Humulin 70/30 100 unit/mL subcutaneous suspension RxNorm: 003151 INJECT 10 UNITS UNDER THE SKIN BEFORE MEALS 06/01/201601/2016 Inactive Request already responded to by other means (e.g. phone or fax) Lantus Solostar 100 unit/mL (3 mL) subcutaneous insulin pen RxNorm: 848472 35 Unit(s) SQ QHS 05/26/2016 07/14/2016 Inactive Humulin 70/30 100 unit/mL subcutaneous suspension RxNorm: 752938 10 Unit(s) SQ QAM 05/24/2016 10/02/2016 Inactive Humulin 70/30 100 unit/mL subcutaneous suspension RxNorm: 282778 21 Unit(s) SQ QAM 05/24/2016 05/23/2016 Inactive Lantus Solostar 100 unit/mL (3 mL) subcutaneous insulin pen RxNorm: 760531 32 Unit(s) SQ QHS 04/22/2016 05/25/2016 Inactive Humulin 70/30 100 unit/mL subcutaneous suspension RxNorm: 618552 21 Unit(s) SQ QAM 04/22/2016 05/24/2016 Inactive with breakfast hydrochlorothiazide 25 mg tablet RxNorm: 092811 TAKE ONE TABLET BY MOUTH DAILY 02/04/2016 02/16/2016 Inactive terazosin 2 mg capsule RxNorm: 196518 Capsule(s) TAKE ONE CAPSULE BY MOUTH DAILY. 12/01/2015 05/28/2016 Inactive Humulin 70/30 100 unit/mL subcutaneous suspension RxNorm: 145756 INJECT 10 UNITS UNDER THE SKIN BEFORE MEALS 11/06/2015 Inactive hydrochlorothiazide 25 mg tablet RxNorm: 761677 1 Tablet(s) PO daily 10/06/2015 02/02/2016 Inactive cyanocobalamin (vit B-12) 1,000 mcg/mL injection solution RxNorm: 640064 Milliliter(s) Inj 09/15/2015 09/15/2015 Inactive Humulin 70/30 100 unit/mL subcutaneous suspension RxNorm: 941035 INJECT 10 UNITS UNDER THE SKIN BEFORE MEALS 09/08/2015 Inactive cyanocobalamin (vit B-12) 1,000 mcg/mL injection solution RxNorm: 999568 Milliliter(s) Inj 09/08/2015 09/08/2015 Inactive terazosin 2 mg capsule RxNorm: 108049 TAKE ONE CAPSULE BY MOUTH DAILY. DISCONTINUE 5 MG CAPSULES 09/01/201511/28 Inactive cyanocobalamin (vit B-12) 1,000 mcg/mL injection solution RxNorm: 723037 Milliliter(s) Inj 09/01/2015 09/01/2015 Inactive cyanocobalamin (vit B-12) 1,000 mcg/mL injection solution RxNorm: 349720 Milliliter(s) Inj 08/25/2015 08/25/2015 Inactive levothyroxine 112 mcg tablet RxNorm: 498652 1 Tablet(s) PO daily 08/06/2015 02/14/2017 Inactive Lantus Solostar 100 unit/mL (3 mL) subcutaneous insulin pen RxNorm: 507339 35 Unit(s) SQ QHS 08/06/2015 04/21/2016 Inactive Humulin 70/30 100 unit/mL subcutaneous suspension RxNorm: 671125 20 Unit(s) SQ AC 08/05/2015 04/21/2016 Inactive with breakfast carvedilol 12.5 mg tablet RxNorm: 766718 1 Tablet(s) PO BID 06/201601/31/2016 Inactive Humulin 70/30 100 unit/mL subcutaneous suspension RxNorm: 839222 10 Unit(s) SQ AC 07/22/2015 08/04/2015 Inactive losartan 100 mg tablet RxNorm: 499929 TAKE ONE TABLET BY MOUTH DAILY 06/25/2015 06/18/2016 Inactive Lantus Solostar 100 unit/mL (3 mL) subcutaneous insulin pen RxNorm: 141441 30 Unit(s) SQ QHS 06/18/2015 08/05/2015 Inactive terazosin 2 mg capsule RxNorm: 318440 1 Capsule(s) PO daily 08/11/2015 Inactive DC the 5mg order terazosin 2 mg capsule RxNorm: 606041 1 Capsule(s) PO daily 04/13/2015 Inactive Synthroid 25 mcg tablet RxNorm: 521097 1 Tablet(s) PO daily 02/14/2017 Inactive Synthroid 25 mcg tablet RxNorm: 368034 1 Tablet(s) PO daily 04/10/2015 Inactive Lantus Solostar 100 unit/mL (3 mL) subcutaneous insulin pen RxNorm: 103610 30 Unit(s) SQ QHS 04/04/2015 06/17/2015 Inactive terazosin 5 mg tablet RxNorm: 011809 1 Tablet(s) PO daily 201404/13/2015 Inactive Lantus Solostar 100 unit/mL (3 mL) subcutaneous insulin pen RxNorm: 695505 25 Unit(s) SQ QHS 01/08/2015 04/03/2015 Inactive carvedilol 25 mg tablet RxNorm: 129847 1 Tablet(s) PO BID 01/0201/31/2015 Inactive terazosin 5 mg tablet RxNorm: 885581 1 Tablet(s) PO daily 201401/01/2015 Inactive levothyroxine 125 mcg tablet RxNorm: 289799 1 Tablet(s) PO daily 01/02/2015 01/31/2015 Inactive terazosin 5 mg tablet RxNorm: 888354 1/2 Tablet(s) PO daily 05/201501/31/2015 Inactive losartan 100 mg tablet RxNorm: 734597 1 Tablet(s) PO daily 08/201404/22/2015 Inactive losartan 100 mg tablet RxNorm: 124223 1 Tablet(s) PO daily 08/201412/23/2014 Inactive Contour Test Strips RxNorm: Miscellaneous test blood sugars BID 12/06/2014 12/05/2014 Inactive dx 250.00 Contour Test Strips RxNorm: Miscellaneous test blood sugars BID or UD 12/06/2014 06/23/2015 Inactive dx 250.00 [SAVINGS FOR NON-COVERED DRUGS -- BIN:[id number], PCN: [id number], Group: [id number], ID# [id number], Questions: . THIS IS NOT INSURANCE.] folic acid 1 mg tablet RxNorm: 490951 1 Tablet(s) PO QHS No Start Date Active Microlet Lancet RxNorm : Miscellaneous Test BID or Ud No Start Date Active 250.0 aspirin 81 mg tablet,delayed release RxNorm: 669648 1 Tablet(s) PO daily No Start Date Active Stool Softener 100 mg capsule RxNorm: 1132354 1 Capsule(s) PO every other day No Start Date Active folic acid oral RxNorm : 4511 oral No Start Date 05/19/2017 Inactive cyanocobalamin (vit B-12) 100 mcg tablet RxNorm: 386467 1 Tablet(s) PO daily No Start Date 02/14/2017 Inactive hydrochlorothiazide 25 mg tablet RxNorm: 532824 1 Tablet(s) PO daily No Start Date 10/05/2015 Inactive Stool Softener 100 mg capsule RxNorm: 2507007 1 Capsule(s) PO daily No Start Date 05/18/2017 Inactive Humulin 70/30 100 unit/mL subcutaneous suspension RxNorm: 271139 20 Unit(s) SQ QAM No Start Date 07/21/2015 Inactive levothyroxine 100 mcg tablet RxNorm: 022788 1 Tablet(s) PO daily No Start Date 05/10/2018 Inactive Lantus Solostar 100 unit/mL (3 mL) subcutaneous insulin pen RxNorm: 514207 20 Unit(s) SQ QHS No Start Date 01/07/2015 Inactive ferrous sulfate 325 mg (65 mg iron) tablet RxNorm: 867516 1 Tablet(s) PO daily No Start Date 05/18/2017 Inactive Medication Administered Medication Codes Instructions Start Date Status cyanocobalamin (vit B-12) 1,000 mcg/mL injection solution RxNorm: 743829 1Milliliter 01/12/2018 No longer Active cyanocobalamin (vit B-12) 1,000 mcg/mL injection solution RxNorm: 938493 Milliliter 09/15/2017 No longer Active cyanocobalamin (vit B-12) 1,000 mcg/mL injection solution RxNorm: 212336 1Milliliter 08/17/2017 No longer Active cyanocobalamin (vit B-12) 1,000 mcg/mL injection solution RxNorm: 227971 1Milliliter 07/19/2017 No longer Active cyanocobalamin (vit B-12) 1,000 mcg/mL injection solution RxNorm: 635468 1Milliliter 05/19/2017 No longer Active cyanocobalamin (vit B-12) 1,000 mcg/mL injection solution RxNorm: 439046 1Milliliter 04/06/2017 No longer Active cyanocobalamin (vit B-12) 1,000 mcg/mL injection solution RxNorm: 779482 Milliliter 01/04/2017 No longer Active cyanocobalamin (vit B-12) 1,000 mcg/mL injection solution RxNorm: 706531 1Milliliter 12/10/2016 No longer Active cyanocobalamin (vit B-12) 1,000 mcg/mL injection solution RxNorm: 056793 Milliliter 10/13/2016 No longer Active cyanocobalamin (vit B-12) 1,000 mcg/mL injection solution RxNorm: 419908 1Milliliter 09/03/2016 No longer Active cyanocobalamin (vit B-12) 1,000 mcg/mL injection solution RxNorm: 896811 Milliliter 07/29/2016 No longer Active cyanocobalamin (vit B-12) 1,000 mcg/mL injection solution RxNorm: 851612 1Milliliter 06/03/2016 No longer Active cyanocobalamin (vit B-12) 1,000 mcg/mL injection solution RxNorm: 465692 Milliliter 09/15/2015 No longer Active cyanocobalamin (vit B-12) 1,000 mcg/mL injection solution RxNorm: 950981 Milliliter 09/08/2015 No longer Active cyanocobalamin (vit B-12) 1,000 mcg/mL injection solution RxNorm: 641961 Milliliter 09/01/2015 No longer Active cyanocobalamin (vit B-12) 1,000 mcg/mL injection solution RxNorm: 314297 Milliliter 08/25/2015 No longer Active Immunizations Vaccine [...] Item Item Code Result Date Free T4 Nxs643 FREE T4 1.21 ng/dL 05/15/2018 Tsh Ord6 TSH (3rd IS) 0.97 uIU/mL 05/15/2018 Comp Metabolic Hjv113 NA 142 mEq/L 05/15/2018 Comp Metabolic Gdj290 K 4.0 mEq/L 05/15/2018 Comp Metabolic Fkg257 CL 107 mEq/L 05/15/2018 Comp Metabolic Ivp746 CO2 28.0 mEq/L 05/15/2018 Comp Metabolic Hla313 ANION GAP 11 05/15/2018 Comp Metabolic Xvl765 GLUCOSE 211 mg/dL 05/15/2018 Comp Metabolic Rax679 Creat 0.9 mg/dL 05/15/2018 Comp Metabolic Zcz038 eGFR 61 ml/min/1.73m2 05/15/2018 Comp Metabolic Mls953 BUN 21 mg/dL 05/15/2018 Comp Metabolic Imu428 B/C Ratio 22.6 Ratio 05/15/2018 Comp Metabolic Bfg198 CALCIUM 9.1 mg/dL 05/15/2018 Comp Metabolic Ayo426 ALK PHOS 85 U/L 05/15/2018 Comp Metabolic Hex716 AST(SGOT) 36 U/L 05/15/2018 Comp Metabolic Rzx779 ALT(SGPT) 19 U/L 05/15/2018 Comp Metabolic Qvt942 BILI T 0.6 mg/dL 05/15/2018 Comp Metabolic Zrs417 ALBUMIN 3.8 g/dL 05/15/2018 Comp Metabolic Icj795 TPRO 6.2 g/dL 05/15/2018 Comp Metabolic Etw383 GLOB 2.4 g/dL 05/15/2018 Comp Metabolic Kqt464 A/G Ratio 1.6 Ratio 05/15/2018 Comp Metabolic Rgr660 Osmo 292 mOsmo 05/15/2018 %Hba1C Fdy086 % HbA1c 27923-7 7.8 % 05/15/2018 %Hba1C Bjm865 Gluc Ave 177 mg/dL 05/15/2018 Comp Metabolic Cdz607 NA 139 mEq/L 11/28/2017 Comp Metabolic Rsx593 K 4.1 mEq/L 11/28/2017 Comp Metabolic Cew708 CL 105 mEq/L 11/28/2017 Comp Metabolic Jfd818 CO2 26.0 mEq/L 11/28/2017 Comp Metabolic Auq459 ANION GAP 12 11/28/2017 Comp Metabolic Suk034 GLUCOSE 132 mg/dL 11/28/2017 Comp Metabolic Sxf725 Creat 0.9 mg/dL 11/28/2017 Comp Metabolic Ylx515 eGFR 66 ml/min/1.73m2 11/28/2017 Comp Metabolic Lgb983 BUN 17 mg/dL 11/28/2017 Comp Metabolic Ztf166 B/C Ratio 19.5 Ratio 11/28/2017 Comp Metabolic Bqm778 CALCIUM 9.1 mg/dL 11/28/2017 Comp Metabolic Jbe000 ALK PHOS 78 U/L 11/28/2017 Comp Metabolic Woh385 AST(SGOT) 35 U/L 11/28/2017 Comp Metabolic Quw692 ALT(SGPT) 17 U/L 11/28/2017 Comp Metabolic Ekz134 BILI T 0.6 mg/dL 11/28/2017 Comp Metabolic Zyg261 ALBUMIN 3.9 g/dL 11/28/2017 Comp Metabolic Rax794 TPRO 6.4 g/dL 11/28/2017 Comp Metabolic Vmy447 GLOB 2.5 g/dL 11/28/2017 Comp Metabolic Rmm214 A/G Ratio 1.6 Ratio 11/28/2017 Comp Metabolic Cay270 Osmo 281 mOsmo 11/28/2017 Tsh Ord6 TSH (3rd IS) 1.14 uIU/mL 11/28/2017 Free T4 Ezx536 FREE T4 1.05 ng/dL 11/28/2017 %Hba1C Mni767 % HbA1c 00125-1 7.7 % 11/25/2017 %Hba1C Kpp099 Gluc Ave 174 mg/dL 11/25/2017 Cbc With [...] 39.8 % 11/25/2017 Cbc With Differential Ord2 Marion% 10.2 % 11/25/2017 Cbc With Differential Ord2 [...] 2.56 K/ul 11/25/2017 Cbc With Differential Ord2 Marion ABS# 0.7 K/ul 11/25/2017 Cbc With Differential [...] 20.4 % 05/19/2017 Cbc With Differential Ord2 Marion% 6.8 % 05/19/2017 Cbc With Differential Ord2 [...] 1.64 K/ul 05/19/2017 Cbc With Differential Ord2 Marion ABS# 0.6 K/ul 05/19/2017 Cbc With Differential Ord2 Eos ABS# 0.2 K/ul 05/19/2017 Cbc With Differential Ord2 Baso ABS# 0.0 K/ul 05/19/2017 B12 Sxn590 B12 >1500.00 pg/ml 05/19/2017 Free T4 Kuw850 FREE T4 1.10 ng/dL 05/19/2017 %Hba1C Fha627 % HbA1c 67591-8 6.8 % 05/19/2017 %Hba1C Qdq485 Gluc Ave 148 mg/dL 05/19/2017 Tsh Ord6 hTSH II 1.73 uIU/mL 05/19/2017 Comp Metabolic Jnf669 NA 140 mEq/L 05/19/2017 Comp Metabolic Mum413 K 3.8 mEq/L 05/19/2017 Comp Metabolic Odh804 CL 108 mEq/L 05/19/2017 Comp Metabolic Bis919 CO2 21.0 mEq/L 05/19/2017 Comp Metabolic Omh484 ANION GAP 15 05/19/2017 Comp Metabolic Dsb437 GLUCOSE 207 mg/dL 05/19/2017 Comp Metabolic Mob051 Creat 1.0 mg/dL 05/19/2017 Comp Metabolic Wzd593 eGFR 55 ml/min/1.73m2 05/19/2017 Comp Metabolic Wss557 BUN 21 mg/dL 05/19/2017 Comp Metabolic Oot654 B/C Ratio 20.4 Ratio 05/19/2017 Comp Metabolic Ior302 CALCIUM 9.1 mg/dL 05/19/2017 Comp Metabolic Sxb945 ALK PHOS 74 U/L 05/19/2017 Comp Metabolic Pua158 AST(SGOT) 32 U/L 05/19/2017 Comp Metabolic Pzr143 ALT(SGPT) 15 U/L 05/19/2017 Comp Metabolic Iag694 BILI T 0.6 mg/dL 05/19/2017 Comp Metabolic Nsl344 ALBUMIN 3.9 g/dL 05/19/2017 Comp Metabolic Vbp972 TPRO 6.2 g/dL 05/19/2017 Comp Metabolic Klj199 GLOB 2.3 g/dL 05/19/2017 Comp Metabolic Ldo888 A/G Ratio 1.6 Ratio 05/19/2017 Comp Metabolic Cab975 Osmo 288 mOsmo 05/19/2017 Cbc With Differential [...] 29.3 pg 12/10/2016 Cbc With Differential Ord2 Marion% 7.1 % 12/10/2016 Cbc With Differential Ord2 [...] 2.50 K/ul 12/10/2016 Cbc With Differential Ord2 Marion ABS# 0.5 K/ul 12/10/2016 Cbc With Differential Ord2 Eos ABS# 0.1 K/ul 12/10/2016 Cbc With Differential Ord2 Baso ABS# 0.0 K/ul 12/10/2016 B12 Hrf916 B12 222.00 pg/ml 12/10/2016 %Hba1C Mhz018 % HbA1c 10894-6 7.5 % 11/16/2016 %Hba1C Erm076 Gluc Ave 169 mg/dL 11/16/2016 Free T4 Kem392 FREE T4 1.03 ng/dL 11/16/2016 Comp Metabolic Hcp135 NA 138 mEq/L 11/16/2016 Comp Metabolic Wbi226 K 3.8 mEq/L 11/16/2016 Comp Metabolic Vvl214 CL 103 mEq/L 11/16/2016 Comp Metabolic Hph540 CO2 26.0 mEq/L 11/16/2016 Comp Metabolic Uli373 ANION GAP 13 11/16/2016 Comp Metabolic Ybz688 GLUCOSE 235 mg/dL 11/16/2016 Comp Metabolic Ovc170 Creat 0.9 mg/dL 11/16/2016 Comp Metabolic Tuv742 eGFR 62 ml/min/1.73m2 11/16/2016 Comp Metabolic Bau959 BUN 20 mg/dL 11/16/2016 Comp Metabolic Lob794 B/C Ratio 21.7 Ratio 11/16/2016 Comp Metabolic Jaf250 CALCIUM 8.9 mg/dL 11/16/2016 Comp Metabolic Ska543 ALK PHOS 75 U/L 11/16/2016 Comp Metabolic Agm035 AST(SGOT) 30 U/L 11/16/2016 Comp Metabolic Heu937 ALT(SGPT) 13 U/L 11/16/2016 Comp Metabolic Fef582 BILI T 0.6 mg/dL 11/16/2016 Comp Metabolic Cpa544 ALBUMIN 3.8 g/dL 11/16/2016 Comp Metabolic Ocn601 TPRO 6.8 g/dL 11/16/2016 Comp Metabolic Bcc049 GLOB 3.1 g/dL 11/16/2016 Comp Metabolic Xxa455 A/G Ratio 1.2 Ratio 11/16/2016 Comp Metabolic Gbz426 Osmo 286 mOsmo 11/16/2016 Tsh Ord6 hTSH II 2.50 uIU/mL 11/16/2016 Tsh Ord6 hTSH II 3.18 uIU/mL 05/21/2016 Lipid Ord30 CHOL 212 mg/dL 05/21/2016 Lipid Ord30 HDL 43.0 mg/dl 05/21/2016 Lipid Ord30 TRIG 164 mg/dL 05/21/2016 Lipid Ord30 LDL 136 mg/dL 05/21/2016 Lipid Ord30 C/HDL 4.9 Ratio 05/21/2016 B12 Oyi797 B12 159.00 pg/ml 05/21/2016 %Hba1C Ndk826 % HbA1c 72853-3 7.5 % 05/21/2016 %Hba1C Wrv583 Gluc Ave 169 mg/dL 05/21/2016 Folate Ord36 Folate >23.80 ng/mL 05/21/2016 Free T4 Zuo718 FREE T4 1.03 ng/dL 05/21/2016 CHEM 14 7149894 AST 33 U/L 03/15/2016 CHEM 14 2035222 ALT 13 U/L 03/15/2016 CHEM 14 8958643 BUN 18 mg/dL 03/15/2016 CHEM 14 4482023 ALBUMIN 3.9 g/dL 03/15/2016 CHEM 14 5976543 CHLORIDE 105 mmol/L 03/15/2016 CHEM 14 2945638 Bili Total 0.4 mg/dL 03/15/2016 CHEM 14 8916080 ALK PHOS 60 U/L 03/15/2016 CHEM 14 4171343 SODIUM 138 mmol/L 03/15/2016 CHEM 14 4899551 CREATININE 0.99 mg/dL 03/15/2016 CHEM 14 8064492 CALCIUM 9.4 mg/dL 03/15/2016 CHEM 14 0582045 POTASSIUM 3.8 mmol/L 03/15/2016 CHEM 14 2006550 TOTAL PROTEIN 6.7 g/dL 03/15/2016 CHEM 14 4373322 GLUCOSE 109 mg/dL 03/15/2016 CHEM 14 5891549 Bicarbonate 27 mmol/L 03/15/2016 CHEM 14 1064640 AGAP 6 mmol/L 03/15/2016 GFR CALC 8056439 GFR Non Afr Amr 54 mL/min 03/15/2016 GFR CALC 9206547 GFR Afr Amr >60 mL/min 03/15/2016 B12 Orv443 B12 46.00 pg/ml 08/07/2015 Iron Ord72 Iron [...] Ord2 RDW 16.6 % 08/05/2015 Free T4 Ivt961 FREE T4 1.33 ng/dL 08/05/2015 Comp Metabolic Mzr077 NA 137 mEq/L 08/05/2015 Comp Metabolic Eau203 K 4.5 mEq/L 08/05/2015 Comp Metabolic Nqo288 CL 104 mEq/L 08/05/2015 Comp Metabolic Mph658 CO2 26.0 mEq/L 08/05/2015 Comp Metabolic Pjh382 ANION GAP 12 08/05/2015 Comp Metabolic Mnj826 GLUCOSE 146 mg/dL 08/05/2015 Comp Metabolic Byt367 Creat 1.0 mg/dL 08/05/2015 Comp Metabolic Gds961 eGFR 56 ml/min/1.73m2 08/05/2015 Comp Metabolic Afq613 BUN 23 mg/dL 08/05/2015 Comp Metabolic Buu782 B/C Ratio 22.8 Ratio 08/05/2015 Comp Metabolic Qvr505 CALCIUM 9.3 mg/dL 08/05/2015 Comp Metabolic Asj382 ALK PHOS 71 U/L 08/05/2015 Comp Metabolic Bjv908 AST(SGOT) 33 U/L 08/05/2015 Comp Metabolic Nbd882 ALT(SGPT) 15 U/L 08/05/2015 Comp Metabolic Aks833 BILI T 0.6 mg/dL 08/05/2015 Comp Metabolic Iag412 ALBUMIN 3.9 g/dL 08/05/2015 Comp Metabolic Juz686 TPRO 6.5 g/dL 08/05/2015 Comp Metabolic Lfq761 GLOB 2.6 g/dL 08/05/2015 Comp Metabolic Kzu791 A/G Ratio 1.5 Ratio 08/05/2015 Comp Metabolic Ugp887 Osmo 280 mOsmo 08/05/2015 Tsh Ord6 hTSH II 0.36 uIU/mL 08/05/2015 %Hba1C Jhh829 % HbA1c 39791-4 8.1 % 08/05/2015 %Hba1C Kri267 Gluc Ave 186 mg/dL 08/05/2015 Free T4 Vad685 FREE T4 0.91 ng/dL 04/11/2015 %Hba1C Erm999 % HbA1c 83173-9 8.3 % 04/10/2015 %Hba1C Znh373 Gluc Ave 192 mg/dL 04/10/2015 Cbc With [...] Ord2 RDW 15.8 % 04/10/2015 Comp Metabolic Pqa433 NA 134 mEq/L 04/10/2015 Comp Metabolic Kez539 K 4.1 mEq/L 04/10/2015 Comp Metabolic Txo684 CL 105 mEq/L 04/10/2015 Comp Metabolic Kdh595 CO2 26.0 mEq/L 04/10/2015 Comp Metabolic Zdf548 ANION GAP 7 04/10/2015 Comp Metabolic Ual014 GLUCOSE 126 mg/dL 04/10/2015 Comp Metabolic Fol789 Creat 1.0 mg/dL 04/10/2015 Comp Metabolic Bqj533 eGFR 58 ml/min/1.73m2 04/10/2015 Comp Metabolic Vxj130 BUN 29 mg/dL 04/10/2015 Comp Metabolic Uyg890 B/C Ratio 29.6 Ratio 04/10/2015 Comp Metabolic Sii494 CALCIUM 9.3 mg/dL 04/10/2015 Comp Metabolic Kub569 ALK PHOS 63 U/L 04/10/2015 Comp Metabolic Wmr055 AST(SGOT) 31 U/L 04/10/2015 Comp Metabolic Hpr044 ALT(SGPT) 14 U/L 04/10/2015 Comp Metabolic Nqm856 BILI T 0.6 mg/dL 04/10/2015 Comp Metabolic Nyo197 ALBUMIN 3.9 g/dL 04/10/2015 Comp Metabolic Ziq863 TPRO 6.3 g/dL 04/10/2015 Comp Metabolic Hhf528 GLOB 2.4 g/dL 04/10/2015 Comp Metabolic Ekr057 A/G Ratio 1.6 Ratio 04/10/2015 Comp Metabolic Img667 Osmo 276 mOsmo 04/10/2015 Tsh Ord6 hTSH [...] 1 01/12/2018 None Full Exam - General 1994 Constitutional general appearance Overall: well developed 11/25/2017 None Full Exam - General 1994 Constitutional general appearance Overall: in no acute distress 11/25/2017 None Full Exam - General 1994 Constitutional general appearance Overall: well nourished 11/25/2017 None Full Exam - General 1994 Eyes conjunctiva /eyelids Overall: conjunctiva clear 11/25/2017 [...] distress 09/15/2017 None Full Exam - General 1994 Constitutional general appearance Overall: well nourished 09/15/2017 None Full Exam - General 1995 Eyes conjunctiva /eyelids Overall: conjunctiva clear 09/15/2017 None Full Exam - General 1994 Eyes conjunctiva /eyelids Overall: cornea clear 09/15/2017 None Full Exam - General 1994 Eyes conjunctiva /eyelids Overall: eyelids normal 09/15/2017 None Full Exam - General 1995 Ears/Nose/Throat oral cavity/pharynx/larynx Overall: oral mucosa clear [...] accomodation 01/30/2015 None Full Exam - General 1994 Ears/Nose/Throat lips/teeth/gingiva Overall: benign lips 01/30/2015 None [...] Date GLUC MONITOR CONT PHYS I&R CPT-4: 30342 06/05/2018 GLUCOSE MONITORING CONT CPT-4: 51369 05/22/2018 THER/PROPH/DIAG INJ SC/IM CPT-4: 36432 01/12/2018 VITAMIN B12 INJECTION CPT-4: J3420 01/12/2018 THER/PROPH/DIAG INJ SC/IM CPT-4: 49339 09/15/2017 VITAMIN B12 INJECTION CPT-4: J3420 09/15/2017 THER/PROPH/DIAG INJ SC/IM CPT-4: 77324 08/17/2017 VITAMIN B12 INJECTION CPT-4: J3420 08/17/2017 THER/PROPH/DIAG INJ SC/IM CPT-4: 61181 07/19/2017 VITAMIN B12 INJECTION CPT-4: J3420 07/19/2017 THER/PROPH/DIAG INJ SC/IM CPT-4: 83461 05/19/2017 VITAMIN B12 INJECTION CPT-4: J3420 05/19/2017 THER/PROPH/DIAG INJ SC/IM CPT-4: 43162 04/06/2017 VITAMIN B12 INJECTION CPT-4: J3420 04/06/2017 THER/PROPH/DIAG INJ SC/IM CPT-4: 65024 01/04/2017 VITAMIN B12 INJECTION CPT-4: J3420 01/04/2017 THER/PROPH/DIAG INJ SC/IM CPT-4: 56274 12/10/2016 VITAMIN B12 INJECTION CPT-4: J3420 12/10/2016 THER/PROPH/DIAG INJ SC/IM CPT-4: 42802 10/13/2016 TRIAMCINOLONE ACET INJ NOS CPT-4: J3301 10/13/2016 THER/PROPH/DIAG INJ SC/IM CPT-4: 81563 09/03/2016 VITAMIN B12 INJECTION CPT-4: J3420 09/03/2016 THER/PROPH/DIAG INJ SC/IM CPT-4: 31016 07/29/2016 VITAMIN B12 INJECTION CPT-4: J3420 07/29/2016 THER/PROPH/DIAG INJ SC/IM CPT-4: 21174 06/03/2016 VITAMIN B12 INJECTION CPT-4: J3420 06/03/2016 PNEUMOCOCCAL VACC [address]: 30373314 CPT-4: 77759 04/22/2016 ADMIN PNEUMOCOCCAL VACCINE SNOMED CT: 20400218 CPT-4: G0009 04/22/2016 VITAMIN B12 INJECTION CPT-4: J3420 09/15/2015 THER/PROPH/DIAG INJ SC/IM CPT-4: 77157 09/15/2015 THER/PROPH/DIAG INJ SC/IM CPT-4: 46239 09/08/2015 VITAMIN B12 INJECTION CPT-4: J3420 09/08/2015 THER/PROPH/DIAG INJ SC/IM CPT-4: 00877 09/01/2015 VITAMIN B12 INJECTION CPT-4: J3420 09/01/2015 THER/PROPH/DIAG INJ SC/IM CPT-4: 52268 08/25/2015 VITAMIN B12 INJECTION CPT-4: J3420 08/25/2015 Vital Signs Date Vital 06/05/2018 Blood Pressure 1: 132/70 Code : 8480-6 BMI: 41.6 Code : 49574-3 Heart Rate 1 : 70 bpm Height: 4'11" SpO2: 96% Weight: 206 lbs 05/22/2018 Blood Pressure 1: 148/72 Code : 8480-6 BMI: 41.6 Code : 85671-9 Heart Rate 1 : 82 bpm Height: 4'11" SpO2: 95% Weight: 206 lbs 05/15/2018 Blood Pressure 1: 140/80 Code : 8480-6 BMI: 41.6 Code : 40347-0 Heart Rate 1 : 86 bpm Height: 4'11" SpO2: 92% Weight: 206 lbs 01/12/2018 Blood Pressure 1: 140/78 Code : 8480-6 BMI: 42.2 Code : 33233-1 Heart Rate 1 : 73 bpm Height: 4'11" SpO2: 97% Weight: 209 lbs 11/25/2017 Blood Pressure 1: 140/68 Code : 8480-6 BMI: 42.2 Code : 77395-4 Heart Rate 1 : 76 bpm Height: 4'11" SpO2: 94% Weight: 209 lbs 09/15/2017 Blood Pressure 1: 146/67 Code : 8480-6 BMI: 42.2 Code : 96482-1 Heart Rate 1 : 69 bpm Height: 4'11" SpO2: 97% Weight: 209 lbs 08/17/2017 Blood Pressure 1: 144/70 Code : 8480-6 BMI: 41.8 Code : 60809-5 Heart Rate 1 : 63 bpm Height: 4'11" SpO2: 97% Weight: 207 lbs 07/19/2017 Blood Pressure 1: 142/74 Code : 8480-6 BMI: 41.4 Code : 07042-9 Heart Rate 1 : 71 bpm Height: 4'11" SpO2: 96% Weight: 205 lbs 05/19/2017 Blood Pressure 1: 148/76 Code : 8480-6 BMI: 42.8 Code : 28896-2 Heart Rate 1 : 72 bpm Height: 4'11" SpO2: 94% Weight: 212 lbs 02/15/2017 Blood Pressure 1: 154/70 Code : 8480-6 BMI: 42.5 Code : 15701-7 Heart Rate 1 : 68 bpm Height: 4'11" SpO2: 97% Weight: 210 lbs 8 oz 11/16/2016 Blood Pressure 1: 142/78 Code : 8480-6 BMI: 41.6 Code : 72881-7 Heart Rate 1 : 68 bpm Height: 4'11" SpO2: 95% Temperature: 36.0 (C) / 96.8 (F) Weight: 206 lbs 08/19/2016 Blood Pressure 1: 120/74 Code : 8480-6 BMI: 41.6 Code : 58097-3 Heart Rate 1 : 75 bpm Height: 4'11" SpO2: 95% Weight: 206 lbs 07/15/2016 Blood Pressure 1: 140/76 Code : 8480-6 BMI: 42.0 Code : 17080-5 Heart Rate 1 : 76 bpm Height: 4'11" SpO2: 96% Weight: 208 lbs 06/03/2016 Blood Pressure 1: 130/78 Code : 8480-6 BMI: 42.8 Code : 74863-1 Heart Rate 1 : 72 bpm Height: 4'11" SpO2: 98% Weight: 212 lbs 04/22/2016 Blood Pressure 1: 142/84 Code : 8480-6 BMI: 41.8 Code : 32462-3 Heart Rate 1 : 86 bpm Height: 4'11" SpO2: 92% Weight: 207 lbs 01/22/2016 Blood Pressure 1: 162/64 Code : 8480-6 BMI: 41.2 Code : 90709-8 Heart Rate 1 : 70 bpm Height: 4'11" SpO2: 97% Weight: 204 lbs 10/23/2015 Blood Pressure 1: 130/70 Code : 8480-6 BMI: 40.4 Code : 05453-6 Heart Rate 1 : 72 bpm Height: 4'11" SpO2: 95% Weight: 200 lbs 09/12/2015 Blood Pressure 1: 142/62 Code : 8480-6 BMI: 39.4 Code : 10517-2 Heart Rate 1 : 63 bpm Height: 4'11" SpO2: 96% Weight: 195 lbs 08/05/2015 Blood Pressure 1: 144/60 Code : 8480-6 BMI: 41.0 Code : 75895-7 Heart Rate 1 : 92 bpm Height: 4'11" SpO2: 90% SpO2: 97% Weight: 203 lbs 04/03/2015 Blood Pressure 1: 142/68 Code : 8480-6 BMI: 40.6 Code : 63606-7 Heart Rate 1 : 77 bpm Height: 4'11" SpO2: 95% Weight: 201 lbs 01/30/2015 Blood Pressure 1: 150/72 Code : 8480-6 BMI: 40.2 Code : 39728-0 Heart Rate 1 : 64 bpm Height: 4'11" Weight: 199 lbs 01/02/2015 Blood Pressure 1: 136/72 Code : 8480-6 BMI: 39.8 Code : 09491-3 Heart Rate 1 : 68 bpm Height: [...] data Encounters Encounter Performer Location Codes Date ([id number]) 11021 EST. PATIENT, LEVEL III Diagnosis: Type 2 diabetes mellitus with hyperglycemia[ICD10: E11.65] Giselle Knox MD, [facility] CPT-4: 71749 06/05/2018 ([id number]) Miscellaneous no charge Diagnosis: Type 2 diabetes mellitus with hyperglycemia[ICD10: E11.65] Jennifer Knox MD , [facility] CPT-4: 29447 05/29/2018 ([id number]) 57594 EST. PATIENT, LEVEL IV Diagnosis: Type 2 diabetes mellitus with hyperglycemia[ICD10: E11.65] Diagnosis: Essential (primary) hypertension[ICD10: I10] Diagnosis: Hypothyroidism, unspecified[ICD10: E03.9] Giselle Knox MD, [facility] CPT-4: 96068 05/15/2018 ([id number]) 77702 EST. 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 PATIENT, LEVEL IV Diagnosis: Varicose veins of bilateral lower extremities with pain[ICD10: I83.813] Diagnosis: Low back pain[ICD10: M54.5] Diagnosis: Hypothyroidism, unspecified[ICD10: E03.9] Diagnosis: Type 2 diabetes mellitus with hyperglycemia[ICD10: E11.65] Giselle Knox MD, [facility] CPT-4: 61430 11/25/2017 36210 EST. PATIENT, LEVEL IV Diagnosis: Localized edema[ICD10: R60.0] Diagnosis: Vitamin B12 deficiency anemia due to intrinsic factor deficiency[ ICD10: D51.0] Chasity Knox MD, [facility] CPT-4: 45241 38631 EST. PATIENT, LEVEL IV Diagnosis: Essential (primary) hypertension[ICD10: I10] Diagnosis: Type 2 diabetes mellitus with hyperglycemia[ICD10: E11.65] Diagnosis: Vitamin B12 deficiency anemia due to intrinsic factor deficiency[ ICD10: D51.0] Chasity Knox MD, [facility] CPT-4: 21671 62928 EST. PATIENT, LEVEL IV Diagnosis: Type 2 diabetes mellitus with hyperglycemia[ICD10: E11.65] Diagnosis: Essential (primary) hypertension[ICD10: I10] Diagnosis: Vitamin B12 deficiency anemia due to intrinsic factor deficiency[ ICD10: D51.0] Chasity Knox MD, [facility] CPT-4: 96033 ([id number]) 45175 EST. PATIENT, LEVEL IV Diagnosis: Essential (primary) hypertension[ICD10: I10] Diagnosis: Type 2 diabetes mellitus with hyperglycemia[ICD10: E11.65] Diagnosis: Hypothyroidism, unspecified[ICD10: E03.9] Diagnosis: Vitamin B12 deficiency anemia due to intrinsic factor deficiency[ ICD10: D51.0] Diagnosis: Chronic kidney disease, stage 3 (moderate)[ICD10: N18.3] Giselle Knox MD , [facility] CPT-4: 06504 05/19/2017 ([id number]) 04533 EST. PATIENT, LEVEL IV Diagnosis: Essential (primary) hypertension[ICD10: I10] Diagnosis: Type 2 diabetes mellitus with hyperglycemia[ICD10: E11.65] Diagnosis: Hypothyroidism, unspecified[ICD10: E03.9] Giselle Knox MD, [facility] CPT-4: 02579 02/15/2017 ([id number]) 20430 EST. PATIENT, LEVEL IV Diagnosis: Type 2 diabetes mellitus with hyperglycemia[ICD10: E11.65] Diagnosis: Cough[ICD10: R05] Diagnosis: Acute upper respiratory infection, unspecified[ICD10: J06.9] Diagnosis: Hypothyroidism, unspecified[ICD10: E03.9] Diagnosis: Chronic kidney disease, stage 3 (moderate)[ICD10: N18.3] Giselle Knox MD , [facility] CPT-4: 34353 11/16/2016 ([id number]) 91548 EST. PATIENT, LEVEL IV Diagnosis: Type 2 diabetes mellitus with hyperglycemia[ICD10: E11.65] Diagnosis: Hypothyroidism, unspecified[ICD10: E03.9] Diagnosis: Essential (primary) hypertension[ICD10: I10] Giselle Knox MD, [facility] CPT-4: 20857 08/19/2016 ([id number]) 24144 EST. PATIENT, LEVEL III Diagnosis: Type 2 diabetes mellitus with hyperglycemia[ICD10: E11.65] Giselle Knox MD, [facility] CPT-4: 29272 07/15/2016 ([id number]) 01493 EST. PATIENT, LEVEL IV Diagnosis: Type 2 diabetes mellitus with hyperglycemia[ICD10: E11.65] Diagnosis: Atrophy of thyroid (acquired)[ICD10: E03.4] Diagnosis: Vitamin B12 deficiency anemia due to intrinsic factor deficiency[ ICD10: D51.0] Diagnosis: Chronic kidney disease, stage 3 (moderate)[ICD10: N18.3] Diagnosis: Essential (primary) hypertension[ICD10: I10] Jennifer Knox MD, [facility] CPT-4: 30694 06/03/2016 ([id number]) 25139 EST. PATIENT, LEVEL III Diagnosis: Type 2 diabetes mellitus with hyperglycemia[ICD10: E11.65] Diagnosis: Essential (primary) hypertension[ICD10: I10] Diagnosis: Chronic kidney disease, stage 3 (moderate)[ICD10: N18.3] Diagnosis: VACCIN STREP PNEUMONIAE[ICD10: Z23] Giselle Knox MD, [facility] CPT-4: 14936 04/22/2016 44815 EST. PATIENT, LEVEL IV Diagnosis: Type 2 diabetes mellitus with hyperglycemia[ICD10: E11.65] Diagnosis: Essential (primary) hypertension[ICD10: I10] Chasity Knox MD, [facility] CPT-4: 04914 01/22/2016 ([id number]) 88689 EST. PATIENT, LEVEL III Diagnosis: Type 2 diabetes mellitus with hyperglycemia[ICD10: E11.65] Diagnosis: Essential (primary) hypertension[ICD10: I10] Giselle Knox MD, [facility] CPT-4: 95841 10/23/2015 42889 EST. PATIENT, LEVEL IV Diagnosis: Type 2 diabetes mellitus with hyperglycemia[ICD10: E11.65] Diagnosis: Vitamin B12 deficiency anemia due to intrinsic factor deficiency[ ICD10: D51.0] Diagnosis: Essential (primary) hypertension[ICD10: I10] Chasity Knox MD, [facility] CPT-4: 74044 09/12/2015 ([id number]) 54343 EST. PATIENT, LEVEL IV Diagnosis: Essential (primary) hypertension[ICD10: I10] Diagnosis: Type 2 diabetes mellitus with hyperglycemia[ICD10: E11.65] Diagnosis: Hypothyroidism, unspecified[ICD10: E03.9] Giselle Knox MD, [facility] CPT-4: 47283 08/05/2015 ([id number]) 63530 EST. PATIENT, LEVEL III Diagnosis: ESSENTIAL HYPERTENSION[ICD9: 401.9] Diagnosis: DIABETES TYPE II[ICD9: 250.00] Jennifer Knox MD, [facility] CPT- 4: 35247 04/03/2015 ([id number]) 74398 EST. PATIENT, LEVEL IV Diagnosis: ESSENTIAL HYPERTENSION[ICD9: 401.9] Diagnosis: DIABETES TYPE II[ICD9: 250.00] Diagnosis: Hypothyroidism[ICD9: 244.9] [facility] CPT-4: 56254 01/30/2015 ([id number]) OFFICE VISIT, NEW - LEVEL 4 Diagnosis: ESSENTIAL HYPERTENSION[ICD9: 401.9] Diagnosis: DIABETES TYPE II[ICD9: 250.00] Diagnosis: Impacted cerumen[ICD9: 380.4] Jennifer Knox MD, [facility] CPT- 4: 99455 01/02/2015 Plan of Care Planned Activity Notes [...] Patient and verbalized understanding of plan. 06/05/2018 Patient Education: Patient Medication Summary Completed [...] of IPRO. 05/22/2018 Appointment: Giselle Mccoy WPtel: [address] [place], [place] [phone] (30 min) [facility] 05/22/2018 Patient Education: Patient Medication Summary Completed [...] of control. 05/15/2018 Appointment: [facility]cc[facility]el[phone] (15 min) Moderate 05/15/2018 Patient Education: Patient [...] PT 01/12/2018 Appointment: Giselle Mccoy WPtel: [phone] [phone] [place] (30 min) Complex 01/12/2018 Patient Education: Patient Medication Summary Completed 01/12/2018 Care Plan: Referral Order SNOMED-CT : [id number] Pending 01/12/2018 Visit Plan: Varicose veins-rx for compression stockings provided and instructed on use Low back pain-recommend xray lumbar spine Hypothyroidism-check labs DM-check Hgb A1c 11/25/2017 Appointment: Giselle Mccoy WPtel: [phone] [phone] [place] (30 min) Complex 11/25/2017 Patient Education: Patient Medication Summary Completed 11/25/2017 Care Plan: X-RAY EXAM L-S SPINE 2 VWS LOINC : 83831-4 Pending 11/25/2017 Visit Plan: Edema - Left [...] concerns. 09/15/2017 Appointment: [facility]ity Caldwell [facility] [phone] [facility] [place] (30 min) Complex 09/15/2017 Patient Education: [...] control. 08/17/2017 Appointment: Chasity Caldwell WPtel: [phone] [facility] (15 min) Moderate 08/17/2017 Patient Education: Patient [...] home. 07/19/2017 Appointment: Chasity Caldwell WPtel: [phone] [facility] (15 min) Moderate 07/19/2017 Patient Education: Patient Medication Summary Completed 07/19/2017 Appointment: Jennifer Knox WPtel: [phone] [facility] (15 min) Moderate 06/13/2017 Visit Plan: Hypertension [...] to medications. 05/19/2017 Appointment: [facility]cc[facility]el[facility] [phone] [phone] (30 min) Complex 05/19/2017 Patient Education: Patient [...] of control. 02/15/2017 Appointment: [facility]ccoy [facility]el[facility] [phone] [phone] (15 min) Moderate 02/15/2017 Patient Education: Patient [...] labs today 11/16/2016 Appointment: [facility]ccoy [facility]el[facility] [phone] [phone] [place] (15 min) Moderate 11/16/2016 Patient Education: Patient [...] of control. 08/19/2016 Appointment: Giselle Mccoy WPtel: [phone] (15 min) Moderate 08/19/2016 Patient Education: Patient Medication Summary Completed 08/19/2016 Patient Education: Obesity Completed 08/19/2016 Care Plan: Tsh Cancelled 08/19/2016 Care Plan: %Hba1C LOINC : 20130-5 Cancelled 08/19/2016 Care Plan: Lipid Cancelled 08/19/2016 Care Plan: Free T4 patient coming back next week Cancelled 08/19/2016 Appointment: Injection 07/29/2016 Patient Education: Patient Medication Summary Completed 07/29/2016 Appointment: Giselle Mccoy WPtel: [phone] (30 min) Complex 07/22/2016 Visit Plan: Diabetes-having hypoglycemia in the mornings- insulin adjusted-patient and verbalized understanding of plan. Follow up in 1 month-call sooner if still having low blood sugars. Sinus congestion- start claritin 07/15/2016 Appointment: Giselle Mccoy WPtel: [phone] (30 min) Complex 07/15/2016 Patient Education: Patient [...] of control. 06/03/2016 Appointment: [facility] [phone] [facility] [place] (15 min) Moderate 06/03/2016 Patient Education: Patient [...] 1 MONTH 04/22/2016 Appointment: Giselle Mccoy WPtel: [address] [place] [phone] (15 min) Moderate 04/22/2016 Patient Education: Patient [...] if needed. 01/02/2015 Appointment: [facility]el[facility] [phone] [facility] [place] ([place] New Patient 01/02/2015 Patient Education: Patient Medication Summary Completed 01/02/2015 Patient Education: Hypertension Completed 01/02/2015 Referral: Tom Pike Referral Appointment Requested Instructions Comment . Hypertension - well controlled - continue [...] to Dr Pike/Dr Lozada for evaluation-recommend PT COME BACK NEXT WEEK FOR BLOOD WORK [...] to allow for greater blood glucose control. Increase morning insulin to 18 units [...] allow for greater blood glucose control. . Diabetes Mellitus - I have recommended [...] lumbar spine Hypothyroidism-check labs DM-check Hgb A1c BRING YOUR BLOOD SUGAR LOG TO YOUR [...] months based on previous levels of control. Decrease morning humulin 70/30 to 18 units [...] months based on previous levels of control. EAT A PROTEIN SNACK BEFORE BED CHECK [...] to assure normal liver response to medications. RETURN TUESDAY FOR REMOVAL IF DEVICE . DM-here for IPRO placement in order to get a full picture of blood sugar readings in attempt to identify trends in blood sugars so we can better manage her medications. Return in 1 week for removal of IPRO. decrease terazosin to 1/2 pill daily use [...] a month and flush ears if needed. Increase 70/30 insulin to 16 units, keep [...] change in blood pressure readings at home. . Diabetes Mellitus - Uncontrolled - per [...]
--- OUTSIDE RECORDS SUMMARY | 2018-06-17 10:26 | XMS REPORT | CCD ---
Author Author [facility] Organization [facility] Address [address] [place] [address] Phone Care Team Providers Care Learning Disabilities Resource Teacher Name Role Phone PP Unavailable CCM Unavailable Summary Purpose Interface Exchange Insurance Providers Payer name Policy type / Coverage type Covered republican ID Effective Begin Date Effective End Date [facility] Commercial Insurance [id number] Unknown Family history Runs in the family [...] U-100 Insulin 100 unit/mL subcutaneous suspension RxNorm: 924099 18 Unit(s) SQ QAM 05/15/2018 No Stop Date Active levothyroxine 100 mcg tablet RxNorm: 181553 1 Tablet(s) PO daily 05/11/2018 09/07/2018 Active carvedilol 12.5 mg tablet RxNorm: 778469 TAKE ONE TABLET BY MOUTH TWICE A DAY 05/05/2018 07/28/2019 Active losartan 100 mg tablet RxNorm: 915864 TAKE ONE TABLET BY MOUTH DAILY 03/24/2018 06/10/2020 Active terazosin 2 mg capsule RxNorm: 639862 TAKE ONE CAPSULE BY MOUTH DAILY 03/07/2018 03/01/2019 Active Lantus Solostar U-100 Insulin 100 unit/mL (3 mL) subcutaneous pen RxNorm: 228225 Unit(s) INJECT 24 UNITS UNDER THE SKIN EVERY NIGHT AT BEDTIME 01/12/2018 No Stop Date Active cyanocobalamin (vit B-12) 1,000 mcg/mL injection solution RxNorm: 639563 1 Milliliter(s) Inj 01/12/2018 01/12/2018 Inactive Humulin 70/30 U-100 Insulin 100 unit/mL subcutaneous suspension RxNorm: 268861 INJECT 18 UNITS UNDER THE SKIN EVERY MORNING 11/14/2017 03/05/2018 Inactive carvedilol 12.5 mg tablet RxNorm: 977796 TAKE ONE TABLET BY MOUTH TWICE A DAY 11/07/2017 05/04/2018 Inactive cyanocobalamin (vit B-12) 1,000 mcg/mL injection solution RxNorm: 613234 Milliliter(s) Inj 09/15/2017 09/15/2017 Inactive terazosin 2 mg capsule RxNorm: 443631 Capsule(s) TAKE ONE CAPSULE BY MOUTH DAILY 09/07/2017 03/05/2018 Inactive Lantus Solostar 100 unit/mL (3 mL) subcutaneous insulin pen RxNorm: 378092 INJECT 35 UNITS UNDER THE SKIN EVERY NIGHT AT BEDTIME 201701/11/2018 Inactive One Touch Test strips RxNorm: 1 test Miscellaneous BID 201708/16/2018 Active Contour Test Strips RxNorm: TEST BLOOD SUGAR TWO TIMES A DAY E11.65 08/22/2017 02/22/2019 Active Tamiflu 75 mg capsule RxNorm: 839465 1 Capsule(s) PO daily 08/1708/16/2017 Inactive Tamiflu 75 mg capsule RxNorm: 273618 1 Capsule(s) PO daily 08/1708/26/2017 Inactive cyanocobalamin (vit B-12) 1,000 mcg/mL injection solution RxNorm: 293305 1 Milliliter(s) Inj 08/17/2017 08/17/2017 Inactive carvedilol 12.5 mg tablet RxNorm: 239838 TAKE ONE TABLET BY MOUTH TWICE A DAY 08/10/2017 11/06/2017 Inactive cyanocobalamin (vit B-12) 1,000 mcg/mL injection solution RxNorm: 455859 1 Milliliter(s) Inj 07/19/2017 07/19/2017 Inactive Humulin 70/30 100 unit/mL subcutaneous suspension RxNorm: 716797 14 Unit(s) SQ QAM 07/06/2017 05/14/2018 Inactive Lantus Solostar 100 unit/mL (3 mL) subcutaneous insulin pen RxNorm: 129850 26 Unit(s) SQ QHS 07/06/2017 08/28/2017 Inactive losartan 100 mg tablet RxNorm: 176862 TAKE ONE TABLET BY MOUTH DAILY 06/07/2017 03/23/2018 Inactive Lantus Solostar 100 unit/mL (3 mL) subcutaneous insulin pen RxNorm: 814111 28 Unit(s) SQ QHS 05/19/2017 07/05/2017 Inactive cyanocobalamin (vit B-12) 1,000 mcg/mL injection solution RxNorm: 095566 1 Milliliter(s) Inj 05/19/2017 05/19/2017 Inactive terazosin 2 mg capsule RxNorm: 104561 TAKE ONE CAPSULE BY MOUTH DAILY 05/16/2017 09/06/2017 Inactive cyanocobalamin (vit B-12) 1,000 mcg/mL injection solution RxNorm: 997902 1 Milliliter(s) Inj 04/06/2017 04/06/2017 Inactive cyanocobalamin (vit B-12) 1,000 mcg/mL injection solution RxNorm: 661012 Milliliter(s) Inj 01/04/2017 01/04/2017 Inactive Humulin 70/30 U-100 Insulin 100 unit/mL subcutaneous suspension RxNorm: 685882 18 Unit(s) SQ QAM 12/22/20162016 Inactive cyanocobalamin (vit B-12) 1,000 mcg/mL injection solution RxNorm: 631525 1 Milliliter(s) Inj 12/10/2016 12/10/2016 Inactive Zithromax Z-Jose 250 mg tablet RxNorm: 223140 1 Tablet(s) PO UD 11/16/2016 11/20/2016 Inactive terazosin 2 mg capsule RxNorm: 415237 TAKE ONE CAPSULE BY MOUTH DAILY 11/08/2016 05/06/2017 Inactive Lantus Solostar 100 unit/mL (3 mL) subcutaneous insulin pen RxNorm: 187896 INJECT 35 UNITS UNDER THE SKIN EVERY NIGHT AT BEDTIME 201607/18/2017 Inactive cyanocobalamin (vit B-12) 1,000 mcg/mL injection solution RxNorm: 750542 Milliliter(s) Inj 10/13/2016 10/13/2016 Inactive cyanocobalamin (vit B-12) 1,000 mcg/mL injection solution RxNorm: 293991 1 Milliliter(s) Inj 09/03/2016 09/03/2016 Inactive Contour Test Strips RxNorm: TEST BLOOD SUGAR TWO TIMES A DAY E11.65 08/19/2016 08/21/2017 Inactive carvedilol 12.5 mg tablet RxNorm: 693967 TAKE ONE TABLET BY MOUTH TWICE A DAY 08/05/2016 01/01/2017 Inactive carvedilol 12.5 mg tablet RxNorm: 544782 TAKE ONE TABLET BY MOUTH TWICE A DAY 08/05/2016 01/01/2017 Inactive carvedilol 12.5 mg tablet RxNorm: 817790 1 Tablet(s) PO BID 05/201701/30/2017 Inactive cyanocobalamin (vit B-12) 1,000 mcg/mL injection solution RxNorm: 379736 Milliliter(s) Inj 07/29/2016 07/29/2016 Inactive Lantus Solostar 100 unit/mL (3 mL) subcutaneous insulin pen RxNorm: 727750 30 Unit(s) SQ QHS 07/15/2016 05/18/2017 Inactive Humulin 70/30 100 unit/mL subcutaneous suspension RxNorm: 102565 18 Unit(s) SQ QAM 07/15/2016 12/21/2016 Inactive losartan 100 mg tablet RxNorm: 215904 TAKE ONE TABLET BY MOUTH DAILY 07/08/2016 06/02/2017 Inactive terazosin 2 mg capsule RxNorm: 802318 TAKE ONE CAPSULE BY MOUTH DAILY 06/10/2016 11/06/2016 Inactive cyanocobalamin (vit B-12) 1,000 mcg/mL injection solution RxNorm: 094596 1 Milliliter(s) Inj 06/03/2016 06/03/2016 Inactive Humulin 70/30 100 unit/mL subcutaneous suspension RxNorm: 949375 Unit(s) INJECT 10 UNITS UNDER THE SKIN 06/01/20162015 Inactive Request already responded to by other means (e.g. phone or fax) Humulin 70/30 100 unit/mL subcutaneous suspension RxNorm: 676225 INJECT 10 UNITS UNDER THE SKIN BEFORE MEALS 06/01/201601/2016 Inactive Request already responded to by other means (e.g. phone or fax) Lantus Solostar 100 unit/mL (3 mL) subcutaneous insulin pen RxNorm: 302799 35 Unit(s) SQ QHS 05/26/2016 07/14/2016 Inactive Humulin 70/30 100 unit/mL subcutaneous suspension RxNorm: 638991 10 Unit(s) SQ QAM 05/24/2016 10/02/2016 Inactive Humulin 70/30 100 unit/mL subcutaneous suspension RxNorm: 814931 21 Unit(s) SQ QAM 05/24/2016 05/23/2016 Inactive Lantus Solostar 100 unit/mL (3 mL) subcutaneous insulin pen RxNorm: 249808 32 Unit(s) SQ QHS 04/22/2016 05/25/2016 Inactive Humulin 70/30 100 unit/mL subcutaneous suspension RxNorm: 653194 21 Unit(s) SQ QAM 04/22/2016 05/24/2016 Inactive with breakfast hydrochlorothiazide 25 mg tablet RxNorm: 026578 TAKE ONE TABLET BY MOUTH DAILY 02/04/2016 02/16/2016 Inactive terazosin 2 mg capsule RxNorm: 167336 Capsule(s) TAKE ONE CAPSULE BY MOUTH DAILY. 12/01/2015 05/28/2016 Inactive Humulin 70/30 100 unit/mL subcutaneous suspension RxNorm: 049559 INJECT 10 UNITS UNDER THE SKIN BEFORE MEALS 11/06/2015 Inactive hydrochlorothiazide 25 mg tablet RxNorm: 373728 1 Tablet(s) PO daily 10/06/2015 02/02/2016 Inactive cyanocobalamin (vit B-12) 1,000 mcg/mL injection solution RxNorm: 587693 Milliliter(s) Inj 09/15/2015 09/15/2015 Inactive Humulin 70/30 100 unit/mL subcutaneous suspension RxNorm: 173547 INJECT 10 UNITS UNDER THE SKIN BEFORE MEALS 09/08/2015 Inactive cyanocobalamin (vit B-12) 1,000 mcg/mL injection solution RxNorm: 263825 Milliliter(s) Inj 09/08/2015 09/08/2015 Inactive terazosin 2 mg capsule RxNorm: 407881 TAKE ONE CAPSULE BY MOUTH DAILY. DISCONTINUE 5 MG CAPSULES 09/01/201511/28 Inactive cyanocobalamin (vit B-12) 1,000 mcg/mL injection solution RxNorm: 625916 Milliliter(s) Inj 09/01/2015 09/01/2015 Inactive cyanocobalamin (vit B-12) 1,000 mcg/mL injection solution RxNorm: 219714 Milliliter(s) Inj 08/25/2015 08/25/2015 Inactive levothyroxine 112 mcg tablet RxNorm: 543022 1 Tablet(s) PO daily 08/06/2015 02/14/2017 Inactive Lantus Solostar 100 unit/mL (3 mL) subcutaneous insulin pen RxNorm: 741680 35 Unit(s) SQ QHS 08/06/2015 04/21/2016 Inactive Humulin 70/30 100 unit/mL subcutaneous suspension RxNorm: 622136 20 Unit(s) SQ AC 08/05/2015 04/21/2016 Inactive with breakfast carvedilol 12.5 mg tablet RxNorm: 826788 1 Tablet(s) PO BID 06/201601/31/2016 Inactive Humulin 70/30 100 unit/mL subcutaneous suspension RxNorm: 243985 10 Unit(s) SQ AC 07/22/2015 08/04/2015 Inactive losartan 100 mg tablet RxNorm: 083435 TAKE ONE TABLET BY MOUTH DAILY 06/25/2015 06/18/2016 Inactive Lantus Solostar 100 unit/mL (3 mL) subcutaneous insulin pen RxNorm: 958761 30 Unit(s) SQ QHS 06/18/2015 08/05/2015 Inactive terazosin 2 mg capsule RxNorm: 804896 1 Capsule(s) PO daily 08/11/2015 Inactive DC the 5mg order terazosin 2 mg capsule RxNorm: 032377 1 Capsule(s) PO daily 04/13/2015 Inactive Synthroid 25 mcg tablet RxNorm: 701466 1 Tablet(s) PO daily 02/14/2017 Inactive Synthroid 25 mcg tablet RxNorm: 572278 1 Tablet(s) PO daily 04/10/2015 Inactive Lantus Solostar 100 unit/mL (3 mL) subcutaneous insulin pen RxNorm: 867540 30 Unit(s) SQ QHS 04/04/2015 06/17/2015 Inactive terazosin 5 mg tablet RxNorm: 972965 1 Tablet(s) PO daily 201404/13/2015 Inactive Lantus Solostar 100 unit/mL (3 mL) subcutaneous insulin pen RxNorm: 055110 25 Unit(s) SQ QHS 01/08/2015 04/03/2015 Inactive carvedilol 25 mg tablet RxNorm: 058657 1 Tablet(s) PO BID 01/0201/31/2015 Inactive terazosin 5 mg tablet RxNorm: 559333 1 Tablet(s) PO daily 201401/01/2015 Inactive levothyroxine 125 mcg tablet RxNorm: 341075 1 Tablet(s) PO daily 01/02/2015 01/31/2015 Inactive terazosin 5 mg tablet RxNorm: 419189 1/2 Tablet(s) PO daily 05/201501/31/2015 Inactive losartan 100 mg tablet RxNorm: 445554 1 Tablet(s) PO daily 08/201404/22/2015 Inactive losartan 100 mg tablet RxNorm: 933363 1 Tablet(s) PO daily 08/201412/23/2014 Inactive Contour Test Strips RxNorm: Miscellaneous test blood sugars BID 12/06/2014 12/05/2014 Inactive dx 250.00 Contour Test Strips RxNorm: Miscellaneous test blood sugars BID or UD 12/06/2014 06/23/2015 Inactive dx 250.00 [SAVINGS FOR NON-COVERED DRUGS -- BIN:[id number], PCN: [id number], Group: [id number], ID# [id number], Questions: . THIS IS NOT INSURANCE.] folic acid 1 mg tablet RxNorm: 247326 1 Tablet(s) PO QHS No Start Date Active Microlet Lancet RxNorm : Miscellaneous Test BID or Ud No Start Date Active 250.0 aspirin 81 mg tablet,delayed release RxNorm: 084735 1 Tablet(s) PO daily No Start Date Active Stool Softener 100 mg capsule RxNorm: 1886478 1 Capsule(s) PO every other day No Start Date Active folic acid oral RxNorm : 4511 oral No Start Date 05/19/2017 Inactive cyanocobalamin (vit B-12) 100 mcg tablet RxNorm: 016704 1 Tablet(s) PO daily No Start Date 02/14/2017 Inactive hydrochlorothiazide 25 mg tablet RxNorm: 230076 1 Tablet(s) PO daily No Start Date 10/05/2015 Inactive Stool Softener 100 mg capsule RxNorm: 8256227 1 Capsule(s) PO daily No Start Date 05/18/2017 Inactive Humulin 70/30 100 unit/mL subcutaneous suspension RxNorm: 589012 20 Unit(s) SQ QAM No Start Date 07/21/2015 Inactive levothyroxine 100 mcg tablet RxNorm: 105427 1 Tablet(s) PO daily No Start Date 05/10/2018 Inactive Lantus Solostar 100 unit/mL (3 mL) subcutaneous insulin pen RxNorm: 150407 20 Unit(s) SQ QHS No Start Date 01/07/2015 Inactive ferrous sulfate 325 mg (65 mg iron) tablet RxNorm: 813182 1 Tablet(s) PO daily No Start Date 05/18/2017 Inactive Medication Administered Medication Codes Instructions Start Date Status cyanocobalamin (vit B-12) 1,000 mcg/mL injection solution RxNorm: 759959 1Milliliter 01/12/2018 No longer Active cyanocobalamin (vit B-12) 1,000 mcg/mL injection solution RxNorm: 062894 Milliliter 09/15/2017 No longer Active cyanocobalamin (vit B-12) 1,000 mcg/mL injection solution RxNorm: 530250 1Milliliter 08/17/2017 No longer Active cyanocobalamin (vit B-12) 1,000 mcg/mL injection solution RxNorm: 465901 1Milliliter 07/19/2017 No longer Active cyanocobalamin (vit B-12) 1,000 mcg/mL injection solution RxNorm: 556077 1Milliliter 05/19/2017 No longer Active cyanocobalamin (vit B-12) 1,000 mcg/mL injection solution RxNorm: 088968 1Milliliter 04/06/2017 No longer Active cyanocobalamin (vit B-12) 1,000 mcg/mL injection solution RxNorm: 590909 Milliliter 01/04/2017 No longer Active cyanocobalamin (vit B-12) 1,000 mcg/mL injection solution RxNorm: 827632 1Milliliter 12/10/2016 No longer Active cyanocobalamin (vit B-12) 1,000 mcg/mL injection solution RxNorm: 266904 Milliliter 10/13/2016 No longer Active cyanocobalamin (vit B-12) 1,000 mcg/mL injection solution RxNorm: 100062 1Milliliter 09/03/2016 No longer Active cyanocobalamin (vit B-12) 1,000 mcg/mL injection solution RxNorm: 918128 Milliliter 07/29/2016 No longer Active cyanocobalamin (vit B-12) 1,000 mcg/mL injection solution RxNorm: 896786 1Milliliter 06/03/2016 No longer Active cyanocobalamin (vit B-12) 1,000 mcg/mL injection solution RxNorm: 525660 Milliliter 09/15/2015 No longer Active cyanocobalamin (vit B-12) 1,000 mcg/mL injection solution RxNorm: 128010 Milliliter 09/08/2015 No longer Active cyanocobalamin (vit B-12) 1,000 mcg/mL injection solution RxNorm: 365383 Milliliter 09/01/2015 No longer Active cyanocobalamin (vit B-12) 1,000 mcg/mL injection solution RxNorm: 922212 Milliliter 08/25/2015 No longer Active Immunizations Vaccine [...] Item Item Code Result Date Free T4 Kbd176 FREE T4 1.21 ng/dL 05/15/2018 Tsh Ord6 TSH (3rd IS) 0.97 uIU/mL 05/15/2018 Comp Metabolic Ogi672 NA 142 mEq/L 05/15/2018 Comp Metabolic Isr155 K 4.0 mEq/L 05/15/2018 Comp Metabolic Zvz687 CL 107 mEq/L 05/15/2018 Comp Metabolic Mln793 CO2 28.0 mEq/L 05/15/2018 Comp Metabolic Qlr695 ANION GAP 11 05/15/2018 Comp Metabolic Ihz837 GLUCOSE 211 mg/dL 05/15/2018 Comp Metabolic Jcx856 Creat 0.9 mg/dL 05/15/2018 Comp Metabolic Qrq294 eGFR 61 ml/min/1.73m2 05/15/2018 Comp Metabolic Ooq819 BUN 21 mg/dL 05/15/2018 Comp Metabolic Lty650 B/C Ratio 22.6 Ratio 05/15/2018 Comp Metabolic Jmh844 CALCIUM 9.1 mg/dL 05/15/2018 Comp Metabolic Rza387 ALK PHOS 85 U/L 05/15/2018 Comp Metabolic Eik119 AST(SGOT) 36 U/L 05/15/2018 Comp Metabolic Ihd534 ALT(SGPT) 19 U/L 05/15/2018 Comp Metabolic Cjz377 BILI T 0.6 mg/dL 05/15/2018 Comp Metabolic Bsl330 ALBUMIN 3.8 g/dL 05/15/2018 Comp Metabolic Xjg495 TPRO 6.2 g/dL 05/15/2018 Comp Metabolic Cup190 GLOB 2.4 g/dL 05/15/2018 Comp Metabolic Bbw922 A/G Ratio 1.6 Ratio 05/15/2018 Comp Metabolic Yda886 Osmo 292 mOsmo 05/15/2018 %Hba1C Mjq698 % HbA1c 76630-9 7.8 % 05/15/2018 %Hba1C Fwy956 Gluc Ave 177 mg/dL 05/15/2018 Comp Metabolic Atc312 NA 139 mEq/L 11/28/2017 Comp Metabolic Ffp252 K 4.1 mEq/L 11/28/2017 Comp Metabolic Arm827 CL 105 mEq/L 11/28/2017 Comp Metabolic Nde731 CO2 26.0 mEq/L 11/28/2017 Comp Metabolic Nky092 ANION GAP 12 11/28/2017 Comp Metabolic Zvq842 GLUCOSE 132 mg/dL 11/28/2017 Comp Metabolic Rdc309 Creat 0.9 mg/dL 11/28/2017 Comp Metabolic Hfz522 eGFR 66 ml/min/1.73m2 11/28/2017 Comp Metabolic Tjb671 BUN 17 mg/dL 11/28/2017 Comp Metabolic Ydp494 B/C Ratio 19.5 Ratio 11/28/2017 Comp Metabolic Quw126 CALCIUM 9.1 mg/dL 11/28/2017 Comp Metabolic Yua230 ALK PHOS 78 U/L 11/28/2017 Comp Metabolic Psl287 AST(SGOT) 35 U/L 11/28/2017 Comp Metabolic Vwu321 ALT(SGPT) 17 U/L 11/28/2017 Comp Metabolic Uma810 BILI T 0.6 mg/dL 11/28/2017 Comp Metabolic Mox018 ALBUMIN 3.9 g/dL 11/28/2017 Comp Metabolic Rsq922 TPRO 6.4 g/dL 11/28/2017 Comp Metabolic Ahr193 GLOB 2.5 g/dL 11/28/2017 Comp Metabolic Lzf937 A/G Ratio 1.6 Ratio 11/28/2017 Comp Metabolic Nmh369 Osmo 281 mOsmo 11/28/2017 Tsh Ord6 TSH (3rd IS) 1.14 uIU/mL 11/28/2017 Free T4 Zdd716 FREE T4 1.05 ng/dL 11/28/2017 %Hba1C Tts973 % HbA1c 36825-0 7.7 % 11/25/2017 %Hba1C Vwe267 Gluc Ave 174 mg/dL 11/25/2017 Cbc With [...] 39.8 % 11/25/2017 Cbc With Differential Ord2 Milam% 10.2 % 11/25/2017 Cbc With Differential Ord2 [...] 2.56 K/ul 11/25/2017 Cbc With Differential Ord2 Milam ABS# 0.7 K/ul 11/25/2017 Cbc With Differential [...] 20.4 % 05/19/2017 Cbc With Differential Ord2 Milam% 6.8 % 05/19/2017 Cbc With Differential Ord2 [...] 1.64 K/ul 05/19/2017 Cbc With Differential Ord2 Milam ABS# 0.6 K/ul 05/19/2017 Cbc With Differential Ord2 Eos ABS# 0.2 K/ul 05/19/2017 Cbc With Differential Ord2 Baso ABS# 0.0 K/ul 05/19/2017 B12 Zqm003 B12 >1500.00 pg/ml 05/19/2017 Free T4 Zik725 FREE T4 1.10 ng/dL 05/19/2017 %Hba1C Lot162 % HbA1c 22247-8 6.8 % 05/19/2017 %Hba1C Okv249 Gluc Ave 148 mg/dL 05/19/2017 Tsh Ord6 hTSH II 1.73 uIU/mL 05/19/2017 Comp Metabolic Mua379 NA 140 mEq/L 05/19/2017 Comp Metabolic Dmt495 K 3.8 mEq/L 05/19/2017 Comp Metabolic Njc453 CL 108 mEq/L 05/19/2017 Comp Metabolic Cpj011 CO2 21.0 mEq/L 05/19/2017 Comp Metabolic Wwv394 ANION GAP 15 05/19/2017 Comp Metabolic Edw040 GLUCOSE 207 mg/dL 05/19/2017 Comp Metabolic Yim203 Creat 1.0 mg/dL 05/19/2017 Comp Metabolic Fdb555 eGFR 55 ml/min/1.73m2 05/19/2017 Comp Metabolic Xfw735 BUN 21 mg/dL 05/19/2017 Comp Metabolic Omc281 B/C Ratio 20.4 Ratio 05/19/2017 Comp Metabolic Qnz298 CALCIUM 9.1 mg/dL 05/19/2017 Comp Metabolic Yxl156 ALK PHOS 74 U/L 05/19/2017 Comp Metabolic Xyc222 AST(SGOT) 32 U/L 05/19/2017 Comp Metabolic Gjm656 ALT(SGPT) 15 U/L 05/19/2017 Comp Metabolic Kls358 BILI T 0.6 mg/dL 05/19/2017 Comp Metabolic Eei664 ALBUMIN 3.9 g/dL 05/19/2017 Comp Metabolic Zpp561 TPRO 6.2 g/dL 05/19/2017 Comp Metabolic Zlx831 GLOB 2.3 g/dL 05/19/2017 Comp Metabolic Bfo357 A/G Ratio 1.6 Ratio 05/19/2017 Comp Metabolic Kej943 Osmo 288 mOsmo 05/19/2017 Cbc With Differential [...] 29.3 pg 12/10/2016 Cbc With Differential Ord2 Milam% 7.1 % 12/10/2016 Cbc With Differential Ord2 [...] 2.50 K/ul 12/10/2016 Cbc With Differential Ord2 Milam ABS# 0.5 K/ul 12/10/2016 Cbc With Differential Ord2 Eos ABS# 0.1 K/ul 12/10/2016 Cbc With Differential Ord2 Baso ABS# 0.0 K/ul 12/10/2016 B12 Glh211 B12 222.00 pg/ml 12/10/2016 %Hba1C Yvx747 % HbA1c 10678-6 7.5 % 11/16/2016 %Hba1C Tsy969 Gluc Ave 169 mg/dL 11/16/2016 Free T4 Gey458 FREE T4 1.03 ng/dL 11/16/2016 Comp Metabolic Nid194 NA 138 mEq/L 11/16/2016 Comp Metabolic Tks585 K 3.8 mEq/L 11/16/2016 Comp Metabolic Sin726 CL 103 mEq/L 11/16/2016 Comp Metabolic Tvm185 CO2 26.0 mEq/L 11/16/2016 Comp Metabolic Gox433 ANION GAP 13 11/16/2016 Comp Metabolic Bww274 GLUCOSE 235 mg/dL 11/16/2016 Comp Metabolic Guq246 Creat 0.9 mg/dL 11/16/2016 Comp Metabolic Qrw004 eGFR 62 ml/min/1.73m2 11/16/2016 Comp Metabolic Net608 BUN 20 mg/dL 11/16/2016 Comp Metabolic Tml300 B/C Ratio 21.7 Ratio 11/16/2016 Comp Metabolic Nur533 CALCIUM 8.9 mg/dL 11/16/2016 Comp Metabolic Tjo189 ALK PHOS 75 U/L 11/16/2016 Comp Metabolic Uwc354 AST(SGOT) 30 U/L 11/16/2016 Comp Metabolic Urk598 ALT(SGPT) 13 U/L 11/16/2016 Comp Metabolic Esq748 BILI T 0.6 mg/dL 11/16/2016 Comp Metabolic Azd916 ALBUMIN 3.8 g/dL 11/16/2016 Comp Metabolic Xoo916 TPRO 6.8 g/dL 11/16/2016 Comp Metabolic Kyk395 GLOB 3.1 g/dL 11/16/2016 Comp Metabolic Lji157 A/G Ratio 1.2 Ratio 11/16/2016 Comp Metabolic Lkd154 Osmo 286 mOsmo 11/16/2016 Tsh Ord6 hTSH II 2.50 uIU/mL 11/16/2016 Tsh Ord6 hTSH II 3.18 uIU/mL 05/21/2016 Lipid Ord30 CHOL 212 mg/dL 05/21/2016 Lipid Ord30 HDL 43.0 mg/dl 05/21/2016 Lipid Ord30 TRIG 164 mg/dL 05/21/2016 Lipid Ord30 LDL 136 mg/dL 05/21/2016 Lipid Ord30 C/HDL 4.9 Ratio 05/21/2016 B12 Vid951 B12 159.00 pg/ml 05/21/2016 %Hba1C Ipn700 % HbA1c 81973-2 7.5 % 05/21/2016 %Hba1C Eyi186 Gluc Ave 169 mg/dL 05/21/2016 Folate Ord36 Folate >23.80 ng/mL 05/21/2016 Free T4 Otq002 FREE T4 1.03 ng/dL 05/21/2016 CHEM 14 0940433 AST 33 U/L 03/15/2016 CHEM 14 1946953 ALT 13 U/L 03/15/2016 CHEM 14 4582366 BUN 18 mg/dL 03/15/2016 CHEM 14 6156719 ALBUMIN 3.9 g/dL 03/15/2016 CHEM 14 4919390 CHLORIDE 105 mmol/L 03/15/2016 CHEM 14 3110542 Bili Total 0.4 mg/dL 03/15/2016 CHEM 14 5190624 ALK PHOS 60 U/L 03/15/2016 CHEM 14 4579653 SODIUM 138 mmol/L 03/15/2016 CHEM 14 3514686 CREATININE 0.99 mg/dL 03/15/2016 CHEM 14 5092347 CALCIUM 9.4 mg/dL 03/15/2016 CHEM 14 6209326 POTASSIUM 3.8 mmol/L 03/15/2016 CHEM 14 1889150 TOTAL PROTEIN 6.7 g/dL 03/15/2016 CHEM 14 9481967 GLUCOSE 109 mg/dL 03/15/2016 CHEM 14 2346635 Bicarbonate 27 mmol/L 03/15/2016 CHEM 14 0338770 AGAP 6 mmol/L 03/15/2016 GFR CALC 4524847 GFR Non Afr Amr 54 mL/min 03/15/2016 GFR CALC 0471758 GFR Afr Amr >60 mL/min 03/15/2016 B12 Suc225 B12 46.00 pg/ml 08/07/2015 Iron Ord72 Iron [...] Ord2 RDW 16.6 % 08/05/2015 Free T4 Yby036 FREE T4 1.33 ng/dL 08/05/2015 Comp Metabolic Qgd234 NA 137 mEq/L 08/05/2015 Comp Metabolic Wfx516 K 4.5 mEq/L 08/05/2015 Comp Metabolic Bcl046 CL 104 mEq/L 08/05/2015 Comp Metabolic Waf655 CO2 26.0 mEq/L 08/05/2015 Comp Metabolic Ynk239 ANION GAP 12 08/05/2015 Comp Metabolic Bcd893 GLUCOSE 146 mg/dL 08/05/2015 Comp Metabolic Dle584 Creat 1.0 mg/dL 08/05/2015 Comp Metabolic Gwn603 eGFR 56 ml/min/1.73m2 08/05/2015 Comp Metabolic Trr254 BUN 23 mg/dL 08/05/2015 Comp Metabolic Igh900 B/C Ratio 22.8 Ratio 08/05/2015 Comp Metabolic Rvs200 CALCIUM 9.3 mg/dL 08/05/2015 Comp Metabolic Jzc142 ALK PHOS 71 U/L 08/05/2015 Comp Metabolic Ils565 AST(SGOT) 33 U/L 08/05/2015 Comp Metabolic Qsa596 ALT(SGPT) 15 U/L 08/05/2015 Comp Metabolic Tlz332 BILI T 0.6 mg/dL 08/05/2015 Comp Metabolic Zsv567 ALBUMIN 3.9 g/dL 08/05/2015 Comp Metabolic Yjp640 TPRO 6.5 g/dL 08/05/2015 Comp Metabolic Xiw660 GLOB 2.6 g/dL 08/05/2015 Comp Metabolic Jqc582 A/G Ratio 1.5 Ratio 08/05/2015 Comp Metabolic Alj460 Osmo 280 mOsmo 08/05/2015 Tsh Ord6 hTSH II 0.36 uIU/mL 08/05/2015 %Hba1C Gtb719 % HbA1c 26752-8 8.1 % 08/05/2015 %Hba1C Xpm141 Gluc Ave 186 mg/dL 08/05/2015 Free T4 Biy134 FREE T4 0.91 ng/dL 04/11/2015 %Hba1C Xge018 % HbA1c 61570-2 8.3 % 04/10/2015 %Hba1C Lwg999 Gluc Ave 192 mg/dL 04/10/2015 Cbc With [...] Ord2 RDW 15.8 % 04/10/2015 Comp Metabolic Ywi699 NA 134 mEq/L 04/10/2015 Comp Metabolic Guu260 K 4.1 mEq/L 04/10/2015 Comp Metabolic Qdz690 CL 105 mEq/L 04/10/2015 Comp Metabolic Pst403 CO2 26.0 mEq/L 04/10/2015 Comp Metabolic Qyi227 ANION GAP 7 04/10/2015 Comp Metabolic Xjs087 GLUCOSE 126 mg/dL 04/10/2015 Comp Metabolic Dze310 Creat 1.0 mg/dL 04/10/2015 Comp Metabolic Blp394 eGFR 58 ml/min/1.73m2 04/10/2015 Comp Metabolic Djk168 BUN 29 mg/dL 04/10/2015 Comp Metabolic Mol862 B/C Ratio 29.6 Ratio 04/10/2015 Comp Metabolic Von997 CALCIUM 9.3 mg/dL 04/10/2015 Comp Metabolic Jiv819 ALK PHOS 63 U/L 04/10/2015 Comp Metabolic Nzm378 AST(SGOT) 31 U/L 04/10/2015 Comp Metabolic Xmk887 ALT(SGPT) 14 U/L 04/10/2015 Comp Metabolic Hsv002 BILI T 0.6 mg/dL 04/10/2015 Comp Metabolic Kov623 ALBUMIN 3.9 g/dL 04/10/2015 Comp Metabolic Zsm663 TPRO 6.3 g/dL 04/10/2015 Comp Metabolic Bxf579 GLOB 2.4 g/dL 04/10/2015 Comp Metabolic Tay199 A/G Ratio 1.6 Ratio 04/10/2015 Comp Metabolic Pgs995 Osmo 276 mOsmo 04/10/2015 Tsh Ord6 hTSH [...] Date GLUC MONITOR CONT PHYS I&R CPT-4: 82091 06/05/2018 GLUCOSE MONITORING CONT CPT-4: 88775 05/22/2018 THER/PROPH/DIAG INJ SC/IM CPT-4: 39440 01/12/2018 VITAMIN B12 INJECTION CPT-4: J3420 01/12/2018 THER/PROPH/DIAG INJ SC/IM CPT-4: 68012 09/15/2017 VITAMIN B12 INJECTION CPT-4: J3420 09/15/2017 THER/PROPH/DIAG INJ SC/IM CPT-4: 86537 08/17/2017 VITAMIN B12 INJECTION CPT-4: J3420 08/17/2017 THER/PROPH/DIAG INJ SC/IM CPT-4: 01038 07/19/2017 VITAMIN B12 INJECTION CPT-4: J3420 07/19/2017 THER/PROPH/DIAG INJ SC/IM CPT-4: 80818 05/19/2017 VITAMIN B12 INJECTION CPT-4: J3420 05/19/2017 THER/PROPH/DIAG INJ SC/IM CPT-4: 09116 04/06/2017 VITAMIN B12 INJECTION CPT-4: J3420 04/06/2017 THER/PROPH/DIAG INJ SC/IM CPT-4: 82682 01/04/2017 VITAMIN B12 INJECTION CPT-4: J3420 01/04/2017 THER/PROPH/DIAG INJ SC/IM CPT-4: 65927 12/10/2016 VITAMIN B12 INJECTION CPT-4: J3420 12/10/2016 THER/PROPH/DIAG INJ SC/IM CPT-4: 63329 10/13/2016 TRIAMCINOLONE ACET INJ NOS CPT-4: J3301 10/13/2016 THER/PROPH/DIAG INJ SC/IM CPT-4: 75298 09/03/2016 VITAMIN B12 INJECTION CPT-4: J3420 09/03/2016 THER/PROPH/DIAG INJ SC/IM CPT-4: 53055 07/29/2016 VITAMIN B12 INJECTION CPT-4: J3420 07/29/2016 THER/PROPH/DIAG INJ SC/IM CPT-4: 21808 06/03/2016 VITAMIN B12 INJECTION CPT-4: J3420 06/03/2016 PNEUMOCOCCAL VACC [address]: 90564245 CPT-4: 88676 04/22/2016 ADMIN PNEUMOCOCCAL VACCINE SNOMED CT: 65059814 CPT-4: G0009 04/22/2016 VITAMIN B12 INJECTION CPT-4: J3420 09/15/2015 THER/PROPH/DIAG INJ SC/IM CPT-4: 70388 09/15/2015 THER/PROPH/DIAG INJ SC/IM CPT-4: 55466 09/08/2015 VITAMIN B12 INJECTION CPT-4: J3420 09/08/2015 THER/PROPH/DIAG INJ SC/IM CPT-4: 10983 09/01/2015 VITAMIN B12 INJECTION CPT-4: J3420 09/01/2015 THER/PROPH/DIAG INJ SC/IM CPT-4: 04048 08/25/2015 VITAMIN B12 INJECTION CPT-4: J3420 08/25/2015 Vital Signs Date Vital 06/05/2018 Blood Pressure 1: 132/70 Code : 8480-6 BMI: 41.6 Code : 05571-0 Heart Rate 1 : 70 bpm Height: 4'11" SpO2: 96% Weight: 206 lbs 05/22/2018 Blood Pressure 1: 148/72 Code : 8480-6 BMI: 41.6 Code : 85661-8 Heart Rate 1 : 82 bpm Height: 4'11" SpO2: 95% Weight: 206 lbs 05/15/2018 Blood Pressure 1: 140/80 Code : 8480-6 BMI: 41.6 Code : 55918-8 Heart Rate 1 : 86 bpm Height: 4'11" SpO2: 92% Weight: 206 lbs 01/12/2018 Blood Pressure 1: 140/78 Code : 8480-6 BMI: 42.2 Code : 35787-6 Heart Rate 1 : 73 bpm Height: 4'11" SpO2: 97% Weight: 209 lbs 11/25/2017 Blood Pressure 1: 140/68 Code : 8480-6 BMI: 42.2 Code : 21501-0 Heart Rate 1 : 76 bpm Height: 4'11" SpO2: 94% Weight: 209 lbs 09/15/2017 Blood Pressure 1: 146/67 Code : 8480-6 BMI: 42.2 Code : 06896-9 Heart Rate 1 : 69 bpm Height: 4'11" SpO2: 97% Weight: 209 lbs 08/17/2017 Blood Pressure 1: 144/70 Code : 8480-6 BMI: 41.8 Code : 54142-2 Heart Rate 1 : 63 bpm Height: 4'11" SpO2: 97% Weight: 207 lbs 07/19/2017 Blood Pressure 1: 142/74 Code : 8480-6 BMI: 41.4 Code : 77087-3 Heart Rate 1 : 71 bpm Height: 4'11" SpO2: 96% Weight: 205 lbs 05/19/2017 Blood Pressure 1: 148/76 Code : 8480-6 BMI: 42.8 Code : 43159-7 Heart Rate 1 : 72 bpm Height: 4'11" SpO2: 94% Weight: 212 lbs 02/15/2017 Blood Pressure 1: 154/70 Code : 8480-6 BMI: 42.5 Code : 61671-5 Heart Rate 1 : 68 bpm Height: 4'11" SpO2: 97% Weight: 210 lbs 8 oz 11/16/2016 Blood Pressure 1: 142/78 Code : 8480-6 BMI: 41.6 Code : 80209-4 Heart Rate 1 : 68 bpm Height: 4'11" SpO2: 95% Temperature: 36.0 (C) / 96.8 (F) Weight: 206 lbs 08/19/2016 Blood Pressure 1: 120/74 Code : 8480-6 BMI: 41.6 Code : 28718-5 Heart Rate 1 : 75 bpm Height: 4'11" SpO2: 95% Weight: 206 lbs 07/15/2016 Blood Pressure 1: 140/76 Code : 8480-6 BMI: 42.0 Code : 48219-3 Heart Rate 1 : 76 bpm Height: 4'11" SpO2: 96% Weight: 208 lbs 06/03/2016 Blood Pressure 1: 130/78 Code : 8480-6 BMI: 42.8 Code : 83245-9 Heart Rate 1 : 72 bpm Height: 4'11" SpO2: 98% Weight: 212 lbs 04/22/2016 Blood Pressure 1: 142/84 Code : 8480-6 BMI: 41.8 Code : 20951-9 Heart Rate 1 : 86 bpm Height: 4'11" SpO2: 92% Weight: 207 lbs 01/22/2016 Blood Pressure 1: 162/64 Code : 8480-6 BMI: 41.2 Code : 65689-9 Heart Rate 1 : 70 bpm Height: 4'11" SpO2: 97% Weight: 204 lbs 10/23/2015 Blood Pressure 1: 130/70 Code : 8480-6 BMI: 40.4 Code : 28737-7 Heart Rate 1 : 72 bpm Height: 4'11" SpO2: 95% Weight: 200 lbs 09/12/2015 Blood Pressure 1: 142/62 Code : 8480-6 BMI: 39.4 Code : 27684-2 Heart Rate 1 : 63 bpm Height: 4'11" SpO2: 96% Weight: 195 lbs 08/05/2015 Blood Pressure 1: 144/60 Code : 8480-6 BMI: 41.0 Code : 40238-3 Heart Rate 1 : 92 bpm Height: 4'11" SpO2: 90% SpO2: 97% Weight: 203 lbs 04/03/2015 Blood Pressure 1: 142/68 Code : 8480-6 BMI: 40.6 Code : 16103-7 Heart Rate 1 : 77 bpm Height: 4'11" SpO2: 95% Weight: 201 lbs 01/30/2015 Blood Pressure 1: 150/72 Code : 8480-6 BMI: 40.2 Code : 14854-2 Heart Rate 1 : 64 bpm Height: 4'11" Weight: 199 lbs 01/02/2015 Blood Pressure 1: 136/72 Code : 8480-6 BMI: 39.8 Code : 04096-5 Heart Rate 1 : 68 bpm Height: [...] data Encounters Encounter Performer Location Codes Date ([id number]) 52987 EST. PATIENT, LEVEL III Diagnosis: Type 2 diabetes mellitus with hyperglycemia[ICD10: E11.65] Giselle Knox MD, [facility] CPT-4: 40169 06/05/2018 ([id number]) Miscellaneous no charge Diagnosis: Type 2 diabetes mellitus with hyperglycemia[ICD10: E11.65] Jennifer Knox MD , [facility] CPT-4: 91667 05/29/2018 ([id number]) 65915 EST. PATIENT, LEVEL IV Diagnosis: Type 2 diabetes mellitus with hyperglycemia[ICD10: E11.65] Diagnosis: Essential (primary) hypertension[ICD10: I10] Diagnosis: Hypothyroidism, unspecified[ICD10: E03.9] Giselle Knox MD, [facility] CPT-4: 39784 05/15/2018 ([id number]) 20064 EST. 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 PATIENT, LEVEL IV Diagnosis: Varicose veins of bilateral lower extremities with pain[ICD10: I83.813] Diagnosis: Low back pain[ICD10: M54.5] Diagnosis: Hypothyroidism, unspecified[ICD10: E03.9] Diagnosis: Type 2 diabetes mellitus with hyperglycemia[ICD10: E11.65] Giselle Knox MD, [facility] CPT-4: 62919 11/25/2017 94501 EST. PATIENT, LEVEL IV Diagnosis: Localized edema[ICD10: R60.0] Diagnosis: Vitamin B12 deficiency anemia due to intrinsic factor deficiency[ ICD10: D51.0] Chasity Knox MD, [facility] CPT-4: 14835 16974 EST. PATIENT, LEVEL IV Diagnosis: Essential (primary) hypertension[ICD10: I10] Diagnosis: Type 2 diabetes mellitus with hyperglycemia[ICD10: E11.65] Diagnosis: Vitamin B12 deficiency anemia due to intrinsic factor deficiency[ ICD10: D51.0] Chasity Knox MD, [facility] CPT-4: 16181 20758 EST. PATIENT, LEVEL IV Diagnosis: Type 2 diabetes mellitus with hyperglycemia[ICD10: E11.65] Diagnosis: Essential (primary) hypertension[ICD10: I10] Diagnosis: Vitamin B12 deficiency anemia due to intrinsic factor deficiency[ ICD10: D51.0] Chasity Knox MD, [facility] CPT-4: 53725 ([id number]) 91632 EST. PATIENT, LEVEL IV Diagnosis: Essential (primary) hypertension[ICD10: I10] Diagnosis: Type 2 diabetes mellitus with hyperglycemia[ICD10: E11.65] Diagnosis: Hypothyroidism, unspecified[ICD10: E03.9] Diagnosis: Vitamin B12 deficiency anemia due to intrinsic factor deficiency[ ICD10: D51.0] Diagnosis: Chronic kidney disease, stage 3 (moderate)[ICD10: N18.3] Giselle Knox MD , [facility] CPT-4: 90010 05/19/2017 ([id number]) 91903 EST. PATIENT, LEVEL IV Diagnosis: Essential (primary) hypertension[ICD10: I10] Diagnosis: Type 2 diabetes mellitus with hyperglycemia[ICD10: E11.65] Diagnosis: Hypothyroidism, unspecified[ICD10: E03.9] Giselle Knox MD, [facility] CPT-4: 11594 02/15/2017 ([id number]) 33066 EST. PATIENT, LEVEL IV Diagnosis: Type 2 diabetes mellitus with hyperglycemia[ICD10: E11.65] Diagnosis: Cough[ICD10: R05] Diagnosis: Acute upper respiratory infection, unspecified[ICD10: J06.9] Diagnosis: Hypothyroidism, unspecified[ICD10: E03.9] Diagnosis: Chronic kidney disease, stage 3 (moderate)[ICD10: N18.3] Giselle Knox MD , [facility] CPT-4: 27094 11/16/2016 ([id number]) 92530 EST. PATIENT, LEVEL IV Diagnosis: Type 2 diabetes mellitus with hyperglycemia[ICD10: E11.65] Diagnosis: Hypothyroidism, unspecified[ICD10: E03.9] Diagnosis: Essential (primary) hypertension[ICD10: I10] Giselle Knox MD, [facility] CPT-4: 98251 08/19/2016 ([id number]) 94883 EST. PATIENT, LEVEL III Diagnosis: Type 2 diabetes mellitus with hyperglycemia[ICD10: E11.65] Giselle Knox MD, [facility] CPT-4: 87658 07/15/2016 ([id number]) 93090 EST. PATIENT, LEVEL IV Diagnosis: Type 2 diabetes mellitus with hyperglycemia[ICD10: E11.65] Diagnosis: Atrophy of thyroid (acquired)[ICD10: E03.4] Diagnosis: Vitamin B12 deficiency anemia due to intrinsic factor deficiency[ ICD10: D51.0] Diagnosis: Chronic kidney disease, stage 3 (moderate)[ICD10: N18.3] Diagnosis: Essential (primary) hypertension[ICD10: I10] Jennifer Knox MD, [facility] CPT-4: 68064 06/03/2016 ([id number]) 80504 EST. PATIENT, LEVEL III Diagnosis: Type 2 diabetes mellitus with hyperglycemia[ICD10: E11.65] Diagnosis: Essential (primary) hypertension[ICD10: I10] Diagnosis: Chronic kidney disease, stage 3 (moderate)[ICD10: N18.3] Diagnosis: VACCIN STREP PNEUMONIAE[ICD10: Z23] Giselle Knox MD, [facility] CPT-4: 95552 04/22/2016 32459 EST. PATIENT, LEVEL IV Diagnosis: Type 2 diabetes mellitus with hyperglycemia[ICD10: E11.65] Diagnosis: Essential (primary) hypertension[ICD10: I10] Chasity Knox MD, [facility] CPT-4: 20839 01/22/2016 ([id number]) 10553 EST. PATIENT, LEVEL III Diagnosis: Type 2 diabetes mellitus with hyperglycemia[ICD10: E11.65] Diagnosis: Essential (primary) hypertension[ICD10: I10] Giselle Knox MD, [facility] CPT-4: 09381 10/23/2015 08292 EST. PATIENT, LEVEL IV Diagnosis: Type 2 diabetes mellitus with hyperglycemia[ICD10: E11.65] Diagnosis: Vitamin B12 deficiency anemia due to intrinsic factor deficiency[ ICD10: D51.0] Diagnosis: Essential (primary) hypertension[ICD10: I10] Chasity Knox MD, [facility] CPT-4: 38608 09/12/2015 ([id number]) 40864 EST. PATIENT, LEVEL IV Diagnosis: Essential (primary) hypertension[ICD10: I10] Diagnosis: Type 2 diabetes mellitus with hyperglycemia[ICD10: E11.65] Diagnosis: Hypothyroidism, unspecified[ICD10: E03.9] Giselle Knox MD, [facility] CPT-4: 36665 08/05/2015 ([id number]) 49520 EST. PATIENT, LEVEL III Diagnosis: ESSENTIAL HYPERTENSION[ICD9: 401.9] Diagnosis: DIABETES TYPE II[ICD9: 250.00] Jennifer Knox MD, [facility] CPT- 4: 90963 04/03/2015 ([id number]) 60159 EST. PATIENT, LEVEL IV Diagnosis: ESSENTIAL HYPERTENSION[ICD9: 401.9] Diagnosis: DIABETES TYPE II[ICD9: 250.00] Diagnosis: Hypothyroidism[ICD9: 244.9] [facility] CPT-4: 09054 01/30/2015 ([id number]) OFFICE VISIT, NEW - LEVEL 4 Diagnosis: ESSENTIAL HYPERTENSION[ICD9: 401.9] Diagnosis: DIABETES TYPE II[ICD9: 250.00] Diagnosis: Impacted cerumen[ICD9: 380.4] Jennifer Knox MD, [facility] CPT- 4: 78152 01/02/2015 Plan of Care Planned Activity Notes [...] of IPRO. 05/22/2018 Appointment: Giselle Mccoy WPtel: [address] [place], [place] [phone] (30 min) [facility] 05/22/2018 Patient Education: Patient Medication Summary Completed [...] of control. 05/15/2018 Appointment: Giselle Mccoy WPtel[phone] (15 min) Moderate 05/15/2018 Patient Education: [...] PT 01/12/2018 Appointment: Giselle Mccoy WPtel: [phone] [phone] [place] (30 min) Complex 01/12/2018 Patient Education: Patient Medication Summary Completed 01/12/2018 Care Plan: Referral Order SNOMED-CT : [id number] Pending 01/12/2018 Visit Plan: Varicose veins-rx for compression stockings provided and instructed on use Low back pain-recommend xray lumbar spine Hypothyroidism-check labs DM-check Hgb A1c 11/25/2017 Appointment: Giselle Mccoy WPtel: [phone] [phone] [place] (30 min) Complex 11/25/2017 Patient Education: Patient Medication Summary Completed 11/25/2017 Care Plan: X-RAY EXAM L-S SPINE 2 VWS LOINC : 74261-4 Pending 11/25/2017 Visit Plan: Edema - Left [...] concerns. 09/15/2017 Appointment: [facility] Caldwell [facility] [phone] [facility] [place] (30 min) Complex 09/15/2017 Patient [...] control. 08/17/2017 Appointment: Chasity Caldwell WPtel: [phone] [email or web address] (15 min) Moderate 08/17/2017 Patient Education: Patient [...] home. 07/19/2017 Appointment: Chasity Caldwell WPtel: [phone] [phone] (15 min) Moderate 07/19/2017 Patient Education: Patient Medication Summary Completed 07/19/2017 Appointment: Jennifer Knox WPtel: [phone] [facility] (15 min) Moderate 06/13/2017 Visit Plan: Hypertension [...] medications. 05/19/2017 Appointment: [facility] [phone] [phone] (30 min) Complex 05/19/2017 Patient Education: [...] of control. 02/15/2017 Appointment: [facility]ccoy [facility]Ptel[facility] [phone] [phone] (15 min) Moderate 02/15/2017 Patient Education: [...] labs today 11/16/2016 Appointment: [facility]ccoy [facility]el[facility] [phone] [phone] [place] (15 min) Moderate 11/16/2016 Patient [...] of control. 08/19/2016 Appointment: Giselle Mccoy WPtel: [phone] (15 min) Moderate 08/19/2016 Patient Education: Patient Medication Summary Completed 08/19/2016 Patient Education: Obesity Completed 08/19/2016 Care Plan: Tsh Cancelled 08/19/2016 Care Plan: %Hba1C LOINC : 36601-2 Cancelled 08/19/2016 Care Plan: Lipid Cancelled 08/19/2016 Care Plan: Free T4 patient coming back next week Cancelled 08/19/2016 Appointment: Injection 07/29/2016 Patient Education: Patient Medication Summary Completed 07/29/2016 Appointment: Giselle Mccoy WPtel: [phone] (30 min) Complex 07/22/2016 Visit Plan: Diabetes-having hypoglycemia in the mornings- insulin adjusted-patient and verbalized understanding of plan. Follow up in 1 month-call sooner if still having low blood sugars. Sinus congestion- start claritin 07/15/2016 Appointment: Giselle Mccoy WPtel: [phone] (30 min) Complex 07/15/2016 Patient Education: Patient [...] of control. 06/03/2016 Appointment: [facility]el[facility] [phone] [facility] [place] (15 min) Moderate 06/03/2016 Patient Education: [...] 1 MONTH 04/22/2016 Appointment: Giselle Mccoy WPtel: [address] [place], [place] [phone] (15 min) Moderate 04/22/2016 Patient Education: Patient [...] needed. 01/02/2015 Appointment: [facility] Knox [facility]el[facility] [phone] [facility] [place] [place] (S) New Patient 01/02/2015 Patient Education: [...] blood glucose control. Lumbar stenosis-refer to Dr iPke/Dr Lozada for evaluation-recommend PT COME BACK NEXT [...]
--- OUTSIDE RECORDS SUMMARY | 2018-06-17 10:29 | XMS REPORT | CCD ---
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 Role Phone PP Unavailable CCM Unavailable Summary Purpose Interface Exchange Insurance Providers Payer name Policy type / Coverage type Covered green party ID Effective Begin Date Effective End Date [facility] Commercial Insurance [id number] Unknown Family history Runs in the family [...] U-100 Insulin 100 unit/mL subcutaneous suspension RxNorm: 203345 18 Unit(s) SQ QAM 05/15/2018 No Stop Date Active levothyroxine 100 mcg tablet RxNorm: 823442 1 Tablet(s) PO daily 05/11/2018 09/07/2018 Active carvedilol 12.5 mg tablet RxNorm: 706850 TAKE ONE TABLET BY MOUTH TWICE A DAY 05/05/2018 07/28/2019 Active losartan 100 mg tablet RxNorm: 555290 TAKE ONE TABLET BY MOUTH DAILY 03/24/2018 06/10/2020 Active terazosin 2 mg capsule RxNorm: 390526 TAKE ONE CAPSULE BY MOUTH DAILY 03/07/2018 03/01/2019 Active Lantus Solostar U-100 Insulin 100 unit/mL (3 mL) subcutaneous pen RxNorm: 479644 Unit(s) INJECT 24 UNITS UNDER THE SKIN EVERY NIGHT AT BEDTIME 01/12/2018 No Stop Date Active cyanocobalamin (vit B-12) 1,000 mcg/mL injection solution RxNorm: 580676 1 Milliliter(s) Inj 01/12/2018 01/12/2018 Inactive Humulin 70/30 U-100 Insulin 100 unit/mL subcutaneous suspension RxNorm: 341588 INJECT 18 UNITS UNDER THE SKIN EVERY MORNING 11/14/2017 03/05/2018 Inactive carvedilol 12.5 mg tablet RxNorm: 815430 TAKE ONE TABLET BY MOUTH TWICE A DAY 11/07/2017 05/04/2018 Inactive cyanocobalamin (vit B-12) 1,000 mcg/mL injection solution RxNorm: 417858 Milliliter(s) Inj 09/15/2017 09/15/2017 Inactive terazosin 2 mg capsule RxNorm: 061996 Capsule(s) TAKE ONE CAPSULE BY MOUTH DAILY 09/07/2017 03/05/2018 Inactive Lantus Solostar 100 unit/mL (3 mL) subcutaneous insulin pen RxNorm: 964089 INJECT 35 UNITS UNDER THE SKIN EVERY NIGHT AT BEDTIME 201701/11/2018 Inactive One Touch Test strips RxNorm: 1 test Miscellaneous BID 201708/16/2018 Active Contour Test Strips RxNorm: TEST BLOOD SUGAR TWO TIMES A DAY E11.65 08/22/2017 02/22/2019 Active Tamiflu 75 mg capsule RxNorm: 365649 1 Capsule(s) PO daily 08/1708/16/2017 Inactive Tamiflu 75 mg capsule RxNorm: 698050 1 Capsule(s) PO daily 08/1708/26/2017 Inactive cyanocobalamin (vit B-12) 1,000 mcg/mL injection solution RxNorm: 606229 1 Milliliter(s) Inj 08/17/2017 08/17/2017 Inactive carvedilol 12.5 mg tablet RxNorm: 703350 TAKE ONE TABLET BY MOUTH TWICE A DAY 08/10/2017 11/06/2017 Inactive cyanocobalamin (vit B-12) 1,000 mcg/mL injection solution RxNorm: 359690 1 Milliliter(s) Inj 07/19/2017 07/19/2017 Inactive Humulin 70/30 100 unit/mL subcutaneous suspension RxNorm: 068652 14 Unit(s) SQ QAM 07/06/2017 05/14/2018 Inactive Lantus Solostar 100 unit/mL (3 mL) subcutaneous insulin pen RxNorm: 065396 26 Unit(s) SQ QHS 07/06/2017 08/28/2017 Inactive losartan 100 mg tablet RxNorm: 449895 TAKE ONE TABLET BY MOUTH DAILY 06/07/2017 03/23/2018 Inactive Lantus Solostar 100 unit/mL (3 mL) subcutaneous insulin pen RxNorm: 629712 28 Unit(s) SQ QHS 05/19/2017 07/05/2017 Inactive cyanocobalamin (vit B-12) 1,000 mcg/mL injection solution RxNorm: 543992 1 Milliliter(s) Inj 05/19/2017 05/19/2017 Inactive terazosin 2 mg capsule RxNorm: 592868 TAKE ONE CAPSULE BY MOUTH DAILY 05/16/2017 09/06/2017 Inactive cyanocobalamin (vit B-12) 1,000 mcg/mL injection solution RxNorm: 627947 1 Milliliter(s) Inj 04/06/2017 04/06/2017 Inactive cyanocobalamin (vit B-12) 1,000 mcg/mL injection solution RxNorm: 798260 Milliliter(s) Inj 01/04/2017 01/04/2017 Inactive Humulin 70/30 U-100 Insulin 100 unit/mL subcutaneous suspension RxNorm: 583315 18 Unit(s) SQ QAM 12/22/20162016 Inactive cyanocobalamin (vit B-12) 1,000 mcg/mL injection solution RxNorm: 757349 1 Milliliter(s) Inj 12/10/2016 12/10/2016 Inactive Zithromax Z-Jose 250 mg tablet RxNorm: 658623 1 Tablet(s) PO UD 11/16/2016 11/20/2016 Inactive terazosin 2 mg capsule RxNorm: 489856 TAKE ONE CAPSULE BY MOUTH DAILY 11/08/2016 05/06/2017 Inactive Lantus Solostar 100 unit/mL (3 mL) subcutaneous insulin pen RxNorm: 303087 INJECT 35 UNITS UNDER THE SKIN EVERY NIGHT AT BEDTIME 201607/18/2017 Inactive cyanocobalamin (vit B-12) 1,000 mcg/mL injection solution RxNorm: 512797 Milliliter(s) Inj 10/13/2016 10/13/2016 Inactive cyanocobalamin (vit B-12) 1,000 mcg/mL injection solution RxNorm: 767778 1 Milliliter(s) Inj 09/03/2016 09/03/2016 Inactive Contour Test Strips RxNorm: TEST BLOOD SUGAR TWO TIMES A DAY E11.65 08/19/2016 08/21/2017 Inactive carvedilol 12.5 mg tablet RxNorm: 113496 TAKE ONE TABLET BY MOUTH TWICE A DAY 08/05/2016 01/01/2017 Inactive carvedilol 12.5 mg tablet RxNorm: 788303 TAKE ONE TABLET BY MOUTH TWICE A DAY 08/05/2016 01/01/2017 Inactive carvedilol 12.5 mg tablet RxNorm: 001519 1 Tablet(s) PO BID 05/201701/30/2017 Inactive cyanocobalamin (vit B-12) 1,000 mcg/mL injection solution RxNorm: 818859 Milliliter(s) Inj 07/29/2016 07/29/2016 Inactive Lantus Solostar 100 unit/mL (3 mL) subcutaneous insulin pen RxNorm: 042414 30 Unit(s) SQ QHS 07/15/2016 05/18/2017 Inactive Humulin 70/30 100 unit/mL subcutaneous suspension RxNorm: 527827 18 Unit(s) SQ QAM 07/15/2016 12/21/2016 Inactive losartan 100 mg tablet RxNorm: 801252 TAKE ONE TABLET BY MOUTH DAILY 07/08/2016 06/02/2017 Inactive terazosin 2 mg capsule RxNorm: 352985 TAKE ONE CAPSULE BY MOUTH DAILY 06/10/2016 11/06/2016 Inactive cyanocobalamin (vit B-12) 1,000 mcg/mL injection solution RxNorm: 827830 1 Milliliter(s) Inj 06/03/2016 06/03/2016 Inactive Humulin 70/30 100 unit/mL subcutaneous suspension RxNorm: 493393 Unit(s) INJECT 10 UNITS UNDER THE SKIN 06/01/20162015 Inactive Request already responded to by other means (e.g. phone or fax) Humulin 70/30 100 unit/mL subcutaneous suspension RxNorm: 671463 INJECT 10 UNITS UNDER THE SKIN BEFORE MEALS 06/01/201601/2016 Inactive Request already responded to by other means (e.g. phone or fax) Lantus Solostar 100 unit/mL (3 mL) subcutaneous insulin pen RxNorm: 958252 35 Unit(s) SQ QHS 05/26/2016 07/14/2016 Inactive Humulin 70/30 100 unit/mL subcutaneous suspension RxNorm: 887419 10 Unit(s) SQ QAM 05/24/2016 10/02/2016 Inactive Humulin 70/30 100 unit/mL subcutaneous suspension RxNorm: 608614 21 Unit(s) SQ QAM 05/24/2016 05/23/2016 Inactive Lantus Solostar 100 unit/mL (3 mL) subcutaneous insulin pen RxNorm: 240881 32 Unit(s) SQ QHS 04/22/2016 05/25/2016 Inactive Humulin 70/30 100 unit/mL subcutaneous suspension RxNorm: 402074 21 Unit(s) SQ QAM 04/22/2016 05/24/2016 Inactive with breakfast hydrochlorothiazide 25 mg tablet RxNorm: 067822 TAKE ONE TABLET BY MOUTH DAILY 02/04/2016 02/16/2016 Inactive terazosin 2 mg capsule RxNorm: 996287 Capsule(s) TAKE ONE CAPSULE BY MOUTH DAILY. 12/01/2015 05/28/2016 Inactive Humulin 70/30 100 unit/mL subcutaneous suspension RxNorm: 297489 INJECT 10 UNITS UNDER THE SKIN BEFORE MEALS 11/06/2015 Inactive hydrochlorothiazide 25 mg tablet RxNorm: 869339 1 Tablet(s) PO daily 10/06/2015 02/02/2016 Inactive cyanocobalamin (vit B-12) 1,000 mcg/mL injection solution RxNorm: 715689 Milliliter(s) Inj 09/15/2015 09/15/2015 Inactive Humulin 70/30 100 unit/mL subcutaneous suspension RxNorm: 666099 INJECT 10 UNITS UNDER THE SKIN BEFORE MEALS 09/08/2015 Inactive cyanocobalamin (vit B-12) 1,000 mcg/mL injection solution RxNorm: 151954 Milliliter(s) Inj 09/08/2015 09/08/2015 Inactive terazosin 2 mg capsule RxNorm: 886749 TAKE ONE CAPSULE BY MOUTH DAILY. DISCONTINUE 5 MG CAPSULES 09/01/201511/28 Inactive cyanocobalamin (vit B-12) 1,000 mcg/mL injection solution RxNorm: 262226 Milliliter(s) Inj 09/01/2015 09/01/2015 Inactive cyanocobalamin (vit B-12) 1,000 mcg/mL injection solution RxNorm: 438948 Milliliter(s) Inj 08/25/2015 08/25/2015 Inactive levothyroxine 112 mcg tablet RxNorm: 070976 1 Tablet(s) PO daily 08/06/2015 02/14/2017 Inactive Lantus Solostar 100 unit/mL (3 mL) subcutaneous insulin pen RxNorm: 222962 35 Unit(s) SQ QHS 08/06/2015 04/21/2016 Inactive Humulin 70/30 100 unit/mL subcutaneous suspension RxNorm: 822011 20 Unit(s) SQ AC 08/05/2015 04/21/2016 Inactive with breakfast carvedilol 12.5 mg tablet RxNorm: 118089 1 Tablet(s) PO BID 06/201601/31/2016 Inactive Humulin 70/30 100 unit/mL subcutaneous suspension RxNorm: 587704 10 Unit(s) SQ AC 07/22/2015 08/04/2015 Inactive losartan 100 mg tablet RxNorm: 096998 TAKE ONE TABLET BY MOUTH DAILY 06/25/2015 06/18/2016 Inactive Lantus Solostar 100 unit/mL (3 mL) subcutaneous insulin pen RxNorm: 955131 30 Unit(s) SQ QHS 06/18/2015 08/05/2015 Inactive terazosin 2 mg capsule RxNorm: 941226 1 Capsule(s) PO daily 08/11/2015 Inactive DC the 5mg order terazosin 2 mg capsule RxNorm: 572320 1 Capsule(s) PO daily 04/13/2015 Inactive Synthroid 25 mcg tablet RxNorm: 962341 1 Tablet(s) PO daily 02/14/2017 Inactive Synthroid 25 mcg tablet RxNorm: 122122 1 Tablet(s) PO daily 04/10/2015 Inactive Lantus Solostar 100 unit/mL (3 mL) subcutaneous insulin pen RxNorm: 117959 30 Unit(s) SQ QHS 04/04/2015 06/17/2015 Inactive terazosin 5 mg tablet RxNorm: 988215 1 Tablet(s) PO daily 201404/13/2015 Inactive Lantus Solostar 100 unit/mL (3 mL) subcutaneous insulin pen RxNorm: 398519 25 Unit(s) SQ QHS 01/08/2015 04/03/2015 Inactive carvedilol 25 mg tablet RxNorm: 455743 1 Tablet(s) PO BID 01/0201/31/2015 Inactive terazosin 5 mg tablet RxNorm: 643975 1 Tablet(s) PO daily 201401/01/2015 Inactive levothyroxine 125 mcg tablet RxNorm: 388925 1 Tablet(s) PO daily 01/02/2015 01/31/2015 Inactive terazosin 5 mg tablet RxNorm: 702070 1/2 Tablet(s) PO daily 05/201501/31/2015 Inactive losartan 100 mg tablet RxNorm: 284883 1 Tablet(s) PO daily 08/201404/22/2015 Inactive losartan 100 mg tablet RxNorm: 614367 1 Tablet(s) PO daily 08/201412/23/2014 Inactive Contour Test Strips RxNorm: Miscellaneous test blood sugars BID 12/06/2014 12/05/2014 Inactive dx 250.00 Contour Test Strips RxNorm: Miscellaneous test blood sugars BID or UD 12/06/2014 06/23/2015 Inactive dx 250.00 [SAVINGS FOR NON-COVERED DRUGS -- BIN:[id number], PCN: [id number], Group: [id number], ID# [id number], Questions: . THIS IS NOT INSURANCE.] folic acid 1 mg tablet RxNorm: 166130 1 Tablet(s) PO QHS No Start Date Active Microlet Lancet RxNorm : Miscellaneous Test BID or Ud No Start Date Active 250.0 aspirin 81 mg tablet,delayed release RxNorm: 812252 1 Tablet(s) PO daily No Start Date Active Stool Softener 100 mg capsule RxNorm: 6176175 1 Capsule(s) PO every other day No Start Date Active folic acid oral RxNorm : 4511 oral No Start Date 05/19/2017 Inactive cyanocobalamin (vit B-12) 100 mcg tablet RxNorm: 667134 1 Tablet(s) PO daily No Start Date 02/14/2017 Inactive hydrochlorothiazide 25 mg tablet RxNorm: 283519 1 Tablet(s) PO daily No Start Date 10/05/2015 Inactive Stool Softener 100 mg capsule RxNorm: 7314838 1 Capsule(s) PO daily No Start Date 05/18/2017 Inactive Humulin 70/30 100 unit/mL subcutaneous suspension RxNorm: 514472 20 Unit(s) SQ QAM No Start Date 07/21/2015 Inactive levothyroxine 100 mcg tablet RxNorm: 673657 1 Tablet(s) PO daily No Start Date 05/10/2018 Inactive Lantus Solostar 100 unit/mL (3 mL) subcutaneous insulin pen RxNorm: 998577 20 Unit(s) SQ QHS No Start Date 01/07/2015 Inactive ferrous sulfate 325 mg (65 mg iron) tablet RxNorm: 409539 1 Tablet(s) PO daily No Start Date 05/18/2017 Inactive Medication Administered Medication Codes Instructions Start Date Status cyanocobalamin (vit B-12) 1,000 mcg/mL injection solution RxNorm: 085969 1Milliliter 01/12/2018 No longer Active cyanocobalamin (vit B-12) 1,000 mcg/mL injection solution RxNorm: 374064 Milliliter 09/15/2017 No longer Active cyanocobalamin (vit B-12) 1,000 mcg/mL injection solution RxNorm: 205303 1Milliliter 08/17/2017 No longer Active cyanocobalamin (vit B-12) 1,000 mcg/mL injection solution RxNorm: 325764 1Milliliter 07/19/2017 No longer Active cyanocobalamin (vit B-12) 1,000 mcg/mL injection solution RxNorm: 452793 1Milliliter 05/19/2017 No longer Active cyanocobalamin (vit B-12) 1,000 mcg/mL injection solution RxNorm: 537627 1Milliliter 04/06/2017 No longer Active cyanocobalamin (vit B-12) 1,000 mcg/mL injection solution RxNorm: 234493 Milliliter 01/04/2017 No longer Active cyanocobalamin (vit B-12) 1,000 mcg/mL injection solution RxNorm: 333731 1Milliliter 12/10/2016 No longer Active cyanocobalamin (vit B-12) 1,000 mcg/mL injection solution RxNorm: 885079 Milliliter 10/13/2016 No longer Active cyanocobalamin (vit B-12) 1,000 mcg/mL injection solution RxNorm: 623800 1Milliliter 09/03/2016 No longer Active cyanocobalamin (vit B-12) 1,000 mcg/mL injection solution RxNorm: 528014 Milliliter 07/29/2016 No longer Active cyanocobalamin (vit B-12) 1,000 mcg/mL injection solution RxNorm: 029587 1Milliliter 06/03/2016 No longer Active cyanocobalamin (vit B-12) 1,000 mcg/mL injection solution RxNorm: 575569 Milliliter 09/15/2015 No longer Active cyanocobalamin (vit B-12) 1,000 mcg/mL injection solution RxNorm: 383696 Milliliter 09/08/2015 No longer Active cyanocobalamin (vit B-12) 1,000 mcg/mL injection solution RxNorm: 965794 Milliliter 09/01/2015 No longer Active cyanocobalamin (vit B-12) 1,000 mcg/mL injection solution RxNorm: 316177 Milliliter 08/25/2015 No longer Active Immunizations Vaccine Codes Date Status Influenza CVX: 141 04/28/2018 completed Influenza CVX: 141 05/18/2017 completed Pneumococcal (Adult) CVX: 133 04/22/2016 completed Influenza CVX: 141 05/07/2015 completed Assessments Condition Codes Effective Dates Type 2 diabetes mellitus with hyperglycemia ICD-10: E11.65 ICD-9: 250.00 05/29/2018 Type 2 diabetes mellitus with hyperglycemia ICD-10: [...] For Visit Effective Dates Notes diabetes mellitus 05/22/2018 diabetes mellitus 05/15/2018 diabetes [...] Item Item Code Result Date Free T4 Jba404 FREE T4 1.21 ng/dL 05/15/2018 Tsh Ord6 TSH (3rd IS) 0.97 uIU/mL 05/15/2018 Comp Metabolic Ydb897 NA 142 mEq/L 05/15/2018 Comp Metabolic Rpu479 K 4.0 mEq/L 05/15/2018 Comp Metabolic Bii558 CL 107 mEq/L 05/15/2018 Comp Metabolic Ylj927 CO2 28.0 mEq/L 05/15/2018 Comp Metabolic Vaa298 ANION GAP 11 05/15/2018 Comp Metabolic Kyy885 GLUCOSE 211 mg/dL 05/15/2018 Comp Metabolic Zjc072 Creat 0.9 mg/dL 05/15/2018 Comp Metabolic Udt489 eGFR 61 ml/min/1.73m2 05/15/2018 Comp Metabolic Xeq289 BUN 21 mg/dL 05/15/2018 Comp Metabolic Adm495 B/C Ratio 22.6 Ratio 05/15/2018 Comp Metabolic Kif384 CALCIUM 9.1 mg/dL 05/15/2018 Comp Metabolic Nwr677 ALK PHOS 85 U/L 05/15/2018 Comp Metabolic Hpz353 AST(SGOT) 36 U/L 05/15/2018 Comp Metabolic Eog588 ALT(SGPT) 19 U/L 05/15/2018 Comp Metabolic Sfc413 BILI T 0.6 mg/dL 05/15/2018 Comp Metabolic Opu178 ALBUMIN 3.8 g/dL 05/15/2018 Comp Metabolic Eme145 TPRO 6.2 g/dL 05/15/2018 Comp Metabolic Lni680 GLOB 2.4 g/dL 05/15/2018 Comp Metabolic Rlc231 A/G Ratio 1.6 Ratio 05/15/2018 Comp Metabolic Asu250 Osmo 292 mOsmo 05/15/2018 %Hba1C Oxk160 % HbA1c 00946-2 7.8 % 05/15/2018 %Hba1C Ipa500 Gluc Ave 177 mg/dL 05/15/2018 Comp Metabolic Rrp687 NA 139 mEq/L 11/28/2017 Comp Metabolic Iuc327 K 4.1 mEq/L 11/28/2017 Comp Metabolic Uhx483 CL 105 mEq/L 11/28/2017 Comp Metabolic Orm502 CO2 26.0 mEq/L 11/28/2017 Comp Metabolic Xrx365 ANION GAP 12 11/28/2017 Comp Metabolic Qio106 GLUCOSE 132 mg/dL 11/28/2017 Comp Metabolic Lek339 Creat 0.9 mg/dL 11/28/2017 Comp Metabolic Tix679 eGFR 66 ml/min/1.73m2 11/28/2017 Comp Metabolic Rlb308 BUN 17 mg/dL 11/28/2017 Comp Metabolic Vwk326 B/C Ratio 19.5 Ratio 11/28/2017 Comp Metabolic Wnb651 CALCIUM 9.1 mg/dL 11/28/2017 Comp Metabolic Dvw244 ALK PHOS 78 U/L 11/28/2017 Comp Metabolic Kzm263 AST(SGOT) 35 U/L 11/28/2017 Comp Metabolic Kqe995 ALT(SGPT) 17 U/L 11/28/2017 Comp Metabolic Sfy228 BILI T 0.6 mg/dL 11/28/2017 Comp Metabolic Ygm289 ALBUMIN 3.9 g/dL 11/28/2017 Comp Metabolic Nug294 TPRO 6.4 g/dL 11/28/2017 Comp Metabolic Vsw265 GLOB 2.5 g/dL 11/28/2017 Comp Metabolic Mzb266 A/G Ratio 1.6 Ratio 11/28/2017 Comp Metabolic Yxl576 Osmo 281 mOsmo 11/28/2017 Tsh Ord6 TSH (3rd IS) 1.14 uIU/mL 11/28/2017 Free T4 Dmt013 FREE T4 1.05 ng/dL 11/28/2017 %Hba1C Vyn564 % HbA1c 97997-0 7.7 % 11/25/2017 %Hba1C Bow341 Gluc Ave 174 mg/dL 11/25/2017 Cbc With [...] 39.8 % 11/25/2017 Cbc With Differential Ord2 [place]% 10.2 % 11/25/2017 Cbc With Differential Ord2 [...] 2.56 K/ul 11/25/2017 Cbc With Differential Ord2 [place] ABS# 0.7 K/ul 11/25/2017 Cbc With Differential [...] 20.4 % 05/19/2017 Cbc With Differential Ord2 [place]% 6.8 % 05/19/2017 Cbc With Differential Ord2 [...] 1.64 K/ul 05/19/2017 Cbc With Differential Ord2 [place] ABS# 0.6 K/ul 05/19/2017 Cbc With Differential Ord2 Eos ABS# 0.2 K/ul 05/19/2017 Cbc With Differential Ord2 Baso ABS# 0.0 K/ul 05/19/2017 B12 Kab094 B12 >1500.00 pg/ml 05/19/2017 Free T4 Wsg842 FREE T4 1.10 ng/dL 05/19/2017 %Hba1C Bxh567 % HbA1c 13539-3 6.8 % 05/19/2017 %Hba1C Jjr095 Gluc Ave 148 mg/dL 05/19/2017 Tsh Ord6 hTSH II 1.73 uIU/mL 05/19/2017 Comp Metabolic Uur154 NA 140 mEq/L 05/19/2017 Comp Metabolic Siq797 K 3.8 mEq/L 05/19/2017 Comp Metabolic Jex479 CL 108 mEq/L 05/19/2017 Comp Metabolic Xns930 CO2 21.0 mEq/L 05/19/2017 Comp Metabolic Qqy146 ANION GAP 15 05/19/2017 Comp Metabolic Gwt986 GLUCOSE 207 mg/dL 05/19/2017 Comp Metabolic Uyt644 Creat 1.0 mg/dL 05/19/2017 Comp Metabolic Kvx901 eGFR 55 ml/min/1.73m2 05/19/2017 Comp Metabolic Iae337 BUN 21 mg/dL 05/19/2017 Comp Metabolic Hta950 B/C Ratio 20.4 Ratio 05/19/2017 Comp Metabolic Hal598 CALCIUM 9.1 mg/dL 05/19/2017 Comp Metabolic Obc165 ALK PHOS 74 U/L 05/19/2017 Comp Metabolic Fjl425 AST(SGOT) 32 U/L 05/19/2017 Comp Metabolic Nbz189 ALT(SGPT) 15 U/L 05/19/2017 Comp Metabolic Bzq220 BILI T 0.6 mg/dL 05/19/2017 Comp Metabolic Rae101 ALBUMIN 3.9 g/dL 05/19/2017 Comp Metabolic Kib308 TPRO 6.2 g/dL 05/19/2017 Comp Metabolic Ucc895 GLOB 2.3 g/dL 05/19/2017 Comp Metabolic Lmf883 A/G Ratio 1.6 Ratio 05/19/2017 Comp Metabolic Krw232 Osmo 288 mOsmo 05/19/2017 Cbc With Differential [...] 29.3 pg 12/10/2016 Cbc With Differential Ord2 [place]% 7.1 % 12/10/2016 Cbc With Differential Ord2 [...] 2.50 K/ul 12/10/2016 Cbc With Differential Ord2 [place] ABS# 0.5 K/ul 12/10/2016 Cbc With Differential Ord2 Eos ABS# 0.1 K/ul 12/10/2016 Cbc With Differential Ord2 Baso ABS# 0.0 K/ul 12/10/2016 B12 Dtm320 B12 222.00 pg/ml 12/10/2016 %Hba1C Ywn718 % HbA1c 89763-3 7.5 % 11/16/2016 %Hba1C Cku553 Gluc Ave 169 mg/dL 11/16/2016 Free T4 Nlv658 FREE T4 1.03 ng/dL 11/16/2016 Comp Metabolic Uah032 NA 138 mEq/L 11/16/2016 Comp Metabolic Pzb953 K 3.8 mEq/L 11/16/2016 Comp Metabolic Pdv363 CL 103 mEq/L 11/16/2016 Comp Metabolic Tdg157 CO2 26.0 mEq/L 11/16/2016 Comp Metabolic Ssy528 ANION GAP 13 11/16/2016 Comp Metabolic Glw285 GLUCOSE 235 mg/dL 11/16/2016 Comp Metabolic Amo996 Creat 0.9 mg/dL 11/16/2016 Comp Metabolic Nyx631 eGFR 62 ml/min/1.73m2 11/16/2016 Comp Metabolic Qhi889 BUN 20 mg/dL 11/16/2016 Comp Metabolic Cuw857 B/C Ratio 21.7 Ratio 11/16/2016 Comp Metabolic Qsx325 CALCIUM 8.9 mg/dL 11/16/2016 Comp Metabolic Nzl022 ALK PHOS 75 U/L 11/16/2016 Comp Metabolic Iii438 AST(SGOT) 30 U/L 11/16/2016 Comp Metabolic Dmj612 ALT(SGPT) 13 U/L 11/16/2016 Comp Metabolic Zlr089 BILI T 0.6 mg/dL 11/16/2016 Comp Metabolic Vye139 ALBUMIN 3.8 g/dL 11/16/2016 Comp Metabolic Pwf295 TPRO 6.8 g/dL 11/16/2016 Comp Metabolic Idt661 GLOB 3.1 g/dL 11/16/2016 Comp Metabolic Zhw325 A/G Ratio 1.2 Ratio 11/16/2016 Comp Metabolic Iad865 Osmo 286 mOsmo 11/16/2016 Tsh Ord6 hTSH II 2.50 uIU/mL 11/16/2016 Tsh Ord6 hTSH II 3.18 uIU/mL 05/21/2016 Lipid Ord30 CHOL 212 mg/dL 05/21/2016 Lipid Ord30 HDL 43.0 mg/dl 05/21/2016 Lipid Ord30 TRIG 164 mg/dL 05/21/2016 Lipid Ord30 LDL 136 mg/dL 05/21/2016 Lipid Ord30 C/HDL 4.9 Ratio 05/21/2016 B12 Dbv195 B12 159.00 pg/ml 05/21/2016 %Hba1C Jhr666 % HbA1c 90279-8 7.5 % 05/21/2016 %Hba1C Txr603 Gluc Ave 169 mg/dL 05/21/2016 Folate Ord36 Folate >23.80 ng/mL 05/21/2016 Free T4 Uwk135 FREE T4 1.03 ng/dL 05/21/2016 CHEM 14 8017627 AST 33 U/L 03/15/2016 CHEM 14 6213999 ALT 13 U/L 03/15/2016 CHEM 14 1099123 BUN 18 mg/dL 03/15/2016 CHEM 14 2599209 ALBUMIN 3.9 g/dL 03/15/2016 CHEM 14 2539426 CHLORIDE 105 mmol/L 03/15/2016 CHEM 14 7056311 Bili Total 0.4 mg/dL 03/15/2016 CHEM 14 4794256 ALK PHOS 60 U/L 03/15/2016 CHEM 14 6805441 SODIUM 138 mmol/L 03/15/2016 CHEM 14 8969633 CREATININE 0.99 mg/dL 03/15/2016 CHEM 14 7815509 CALCIUM 9.4 mg/dL 03/15/2016 CHEM 14 7168401 POTASSIUM 3.8 mmol/L 03/15/2016 CHEM 14 6327425 TOTAL PROTEIN 6.7 g/dL 03/15/2016 CHEM 14 5094498 GLUCOSE 109 mg/dL 03/15/2016 CHEM 14 8513957 Bicarbonate 27 mmol/L 03/15/2016 CHEM 14 1874866 AGAP 6 mmol/L 03/15/2016 GFR CALC 2505336 GFR Non Afr Amr 54 mL/min 03/15/2016 GFR CALC 9822427 GFR Afr Amr >60 mL/min 03/15/2016 B12 Kvv909 B12 46.00 pg/ml 08/07/2015 Iron Ord72 Iron [...] Ord2 RDW 16.6 % 08/05/2015 Free T4 Rfs642 FREE T4 1.33 ng/dL 08/05/2015 Comp Metabolic Nas555 NA 137 mEq/L 08/05/2015 Comp Metabolic Frr329 K 4.5 mEq/L 08/05/2015 Comp Metabolic Qii595 CL 104 mEq/L 08/05/2015 Comp Metabolic Foj839 CO2 26.0 mEq/L 08/05/2015 Comp Metabolic Yzo882 ANION GAP 12 08/05/2015 Comp Metabolic Cfs572 GLUCOSE 146 mg/dL 08/05/2015 Comp Metabolic Pqd770 Creat 1.0 mg/dL 08/05/2015 Comp Metabolic Avd980 eGFR 56 ml/min/1.73m2 08/05/2015 Comp Metabolic Twj404 BUN 23 mg/dL 08/05/2015 Comp Metabolic Byt755 B/C Ratio 22.8 Ratio 08/05/2015 Comp Metabolic Pvk239 CALCIUM 9.3 mg/dL 08/05/2015 Comp Metabolic Dmm328 ALK PHOS 71 U/L 08/05/2015 Comp Metabolic Wmc659 AST(SGOT) 33 U/L 08/05/2015 Comp Metabolic Gub792 ALT(SGPT) 15 U/L 08/05/2015 Comp Metabolic Quh572 BILI T 0.6 mg/dL 08/05/2015 Comp Metabolic Bbh253 ALBUMIN 3.9 g/dL 08/05/2015 Comp Metabolic Bpx859 TPRO 6.5 g/dL 08/05/2015 Comp Metabolic Ffl143 GLOB 2.6 g/dL 08/05/2015 Comp Metabolic Rqw045 A/G Ratio 1.5 Ratio 08/05/2015 Comp Metabolic Cms994 Osmo 280 mOsmo 08/05/2015 Tsh Ord6 hTSH II 0.36 uIU/mL 08/05/2015 %Hba1C Ufc418 % HbA1c 11072-0 8.1 % 08/05/2015 %Hba1C Xzn669 Gluc Ave 186 mg/dL 08/05/2015 Free T4 Cza844 FREE T4 0.91 ng/dL 04/11/2015 %Hba1C Rsi998 % HbA1c 47446-6 8.3 % 04/10/2015 %Hba1C Aun109 Gluc Ave 192 mg/dL 04/10/2015 Cbc With [...] Ord2 RDW 15.8 % 04/10/2015 Comp Metabolic Peh921 NA 134 mEq/L 04/10/2015 Comp Metabolic Xnc398 K 4.1 mEq/L 04/10/2015 Comp Metabolic Rqc010 CL 105 mEq/L 04/10/2015 Comp Metabolic Ajj946 CO2 26.0 mEq/L 04/10/2015 Comp Metabolic Edp572 ANION GAP 7 04/10/2015 Comp Metabolic Irl592 GLUCOSE 126 mg/dL 04/10/2015 Comp Metabolic Rzr962 Creat 1.0 mg/dL 04/10/2015 Comp Metabolic Dqv213 eGFR 58 ml/min/1.73m2 04/10/2015 Comp Metabolic Ihn298 BUN 29 mg/dL 04/10/2015 Comp Metabolic Yvq151 B/C Ratio 29.6 Ratio 04/10/2015 Comp Metabolic Rmc551 CALCIUM 9.3 mg/dL 04/10/2015 Comp Metabolic Tim412 ALK PHOS 63 U/L 04/10/2015 Comp Metabolic Knn932 AST(SGOT) 31 U/L 04/10/2015 Comp Metabolic Oib653 ALT(SGPT) 14 U/L 04/10/2015 Comp Metabolic Hvg242 BILI T 0.6 mg/dL 04/10/2015 Comp Metabolic Prd847 ALBUMIN 3.9 g/dL 04/10/2015 Comp Metabolic Ait559 TPRO 6.3 g/dL 04/10/2015 Comp Metabolic Yky606 GLOB 2.4 g/dL 04/10/2015 Comp Metabolic Kxc941 A/G Ratio 1.6 Ratio 04/10/2015 Comp Metabolic Zll517 Osmo 276 mOsmo 04/10/2015 Tsh Ord6 hTSH [...] Dates Notes Full Exam - General 1994 Cardiovascular auscultation [...] impaction 01/02/2015 None Procedures Procedure Codes Date GLUCOSE MONITORING CONT CPT-4: 18333 05/22/2018 THER/PROPH/DIAG INJ SC/IM CPT-4: 45581 01/12/2018 VITAMIN B12 INJECTION CPT-4: J3420 01/12/2018 THER/PROPH/DIAG INJ SC/IM CPT-4: 86142 09/15/2017 VITAMIN B12 INJECTION CPT-4: J3420 09/15/2017 THER/PROPH/DIAG INJ SC/IM CPT-4: 06671 08/17/2017 VITAMIN B12 INJECTION CPT-4: J3420 08/17/2017 THER/PROPH/DIAG INJ SC/IM CPT-4: 34568 07/19/2017 VITAMIN B12 INJECTION CPT-4: J3420 07/19/2017 THER/PROPH/DIAG INJ SC/IM CPT-4: 62741 05/19/2017 VITAMIN B12 INJECTION CPT-4: J3420 05/19/2017 THER/PROPH/DIAG INJ SC/IM CPT-4: 65808 04/06/2017 VITAMIN B12 INJECTION CPT-4: J3420 04/06/2017 THER/PROPH/DIAG INJ SC/IM CPT-4: 80677 01/04/2017 VITAMIN B12 INJECTION CPT-4: J3420 01/04/2017 THER/PROPH/DIAG INJ SC/IM CPT-4: 30136 12/10/2016 VITAMIN B12 INJECTION CPT-4: J3420 12/10/2016 THER/PROPH/DIAG INJ SC/IM CPT-4: 10544 10/13/2016 TRIAMCINOLONE ACET INJ NOS CPT-4: J3301 10/13/2016 THER/PROPH/DIAG INJ SC/IM CPT-4: 23158 09/03/2016 VITAMIN B12 INJECTION CPT-4: J3420 09/03/2016 THER/PROPH/DIAG INJ SC/IM CPT-4: 09656 07/29/2016 VITAMIN B12 INJECTION CPT-4: J3420 07/29/2016 THER/PROPH/DIAG INJ SC/IM CPT-4: 00258 06/03/2016 VITAMIN B12 INJECTION CPT-4: J3420 06/03/2016 PNEUMOCOCCAL VACC [address]: 10886691 CPT-4: 63855 04/22/2016 ADMIN PNEUMOCOCCAL VACCINE SNOMED CT: 57117618 CPT-4: G0009 04/22/2016 VITAMIN B12 INJECTION CPT-4: J3420 09/15/2015 THER/PROPH/DIAG INJ SC/IM CPT-4: 51579 09/15/2015 THER/PROPH/DIAG INJ SC/IM CPT-4: 73485 09/08/2015 VITAMIN B12 INJECTION CPT-4: J3420 09/08/2015 THER/PROPH/DIAG INJ SC/IM CPT-4: 07612 09/01/2015 VITAMIN B12 INJECTION CPT-4: J3420 09/01/2015 THER/PROPH/DIAG INJ SC/IM CPT-4: 33810 08/25/2015 VITAMIN B12 INJECTION CPT-4: J3420 08/25/2015 Vital Signs Date Vital 05/22/2018 Blood Pressure 1: 148/72 Code : 8480-6 BMI: 41.6 Code : 91912-6 Heart Rate 1 : 82 bpm Height: 4'11" SpO2: 95% Weight: 206 lbs 05/15/2018 Blood Pressure 1: 140/80 Code : 8480-6 BMI: 41.6 Code : 52662-5 Heart Rate 1 : 86 bpm Height: 4'11" SpO2: 92% Weight: 206 lbs 01/12/2018 Blood Pressure 1: 140/78 Code : 8480-6 BMI: 42.2 Code : 55784-0 Heart Rate 1 : 73 bpm Height: 4'11" SpO2: 97% Weight: 209 lbs 11/25/2017 Blood Pressure 1: 140/68 Code : 8480-6 BMI: 42.2 Code : 62602-3 Heart Rate 1 : 76 bpm Height: 4'11" SpO2: 94% Weight: 209 lbs 09/15/2017 Blood Pressure 1: 146/67 Code : 8480-6 BMI: 42.2 Code : 40889-2 Heart Rate 1 : 69 bpm Height: 4'11" SpO2: 97% Weight: 209 lbs 08/17/2017 Blood Pressure 1: 144/70 Code : 8480-6 BMI: 41.8 Code : 31921-4 Heart Rate 1 : 63 bpm Height: 4'11" SpO2: 97% Weight: 207 lbs 07/19/2017 Blood Pressure 1: 142/74 Code : 8480-6 BMI: 41.4 Code : 73091-2 Heart Rate 1 : 71 bpm Height: 4'11" SpO2: 96% Weight: 205 lbs 05/19/2017 Blood Pressure 1: 148/76 Code : 8480-6 BMI: 42.8 Code : 07250-1 Heart Rate 1 : 72 bpm Height: 4'11" SpO2: 94% Weight: 212 lbs 02/15/2017 Blood Pressure 1: 154/70 Code : 8480-6 BMI: 42.5 Code : 56727-1 Heart Rate 1 : 68 bpm Height: 4'11" SpO2: 97% Weight: 210 lbs 8 11/16/2016 Blood Pressure 1: 142/78 Code : 8480-6 BMI: 41.6 Code : 35594-1 Heart Rate 1 : 68 bpm Height: 4'11" SpO2: 95% Temperature: 36.0 (C) / 96.8 (F) Weight: 206 lbs 08/19/2016 Blood Pressure 1: 120/74 Code : 8480-6 BMI: 41.6 Code : 48150-5 Heart Rate 1 : 75 bpm Height: 4'11" SpO2: 95% Weight: 206 lbs 07/15/2016 Blood Pressure 1: 140/76 Code : 8480-6 BMI: 42.0 Code : 02988-5 Heart Rate 1 : 76 bpm Height: 4'11" SpO2: 96% Weight: 208 lbs 06/03/2016 Blood Pressure 1: 130/78 Code : 8480-6 BMI: 42.8 Code : 66245-9 Heart Rate 1 : 72 bpm Height: 4'11" SpO2: 98% Weight: 212 lbs 04/22/2016 Blood Pressure 1: 142/84 Code : 8480-6 BMI: 41.8 Code : 67756-5 Heart Rate 1 : 86 bpm Height: 4'11" SpO2: 92% Weight: 207 lbs 01/22/2016 Blood Pressure 1: 162/64 Code : 8480-6 BMI: 41.2 Code : 61739-8 Heart Rate 1 : 70 bpm Height: 4'11" SpO2: 97% Weight: 204 lbs 10/23/2015 Blood Pressure 1: 130/70 Code : 8480-6 BMI: 40.4 Code : 88237-7 Heart Rate 1 : 72 bpm Height: 4'11" SpO2: 95% Weight: 200 lbs 09/12/2015 Blood Pressure 1: 142/62 Code : 8480-6 BMI: 39.4 Code : 79677-4 Heart Rate 1 : 63 bpm Height: 4'11" SpO2: 96% Weight: 195 lbs 08/05/2015 Blood Pressure 1: 144/60 Code : 8480-6 BMI: 41.0 Code : 63105-3 Heart Rate 1 : 92 bpm Height: 4'11" SpO2: 90% SpO2: 97% Weight: 203 lbs 04/03/2015 Blood Pressure 1: 142/68 Code : 8480-6 BMI: 40.6 Code : 71098-0 Heart Rate 1 : 77 bpm Height: 4'11" SpO2: 95% Weight: 201 lbs 01/30/2015 Blood Pressure 1: 150/72 Code : 8480-6 BMI: 40.2 Code : 77716-4 Heart Rate 1 : 64 bpm Height: 4'11" Weight: 199 lbs 01/02/2015 Blood Pressure 1: 136/72 Code : 8480-6 BMI: 39.8 Code : 06691-2 Heart Rate 1 : 68 bpm Height: 4'11" Weight: 197 lbs Functional Status No Functional Status data History of Present Illness Symptom Name Status Result Effective Date Notes diabetes mellitus Glucose monitoring twice daily 05/22/2018 [...] data Encounters Encounter Performer Location Codes Date ([id number]) Miscellaneous no charge Diagnosis: Type 2 diabetes mellitus with hyperglycemia[ICD10: E11.65] [facility] CPT-4: 92421 05/29/2018 ([id number]) 36045 EST. PATIENT, LEVEL IV Diagnosis: Type 2 diabetes mellitus with hyperglycemia[ICD10: E11.65] Diagnosis: Essential (primary) hypertension[ICD10: I10] Diagnosis: Hypothyroidism, unspecified[ICD10: E03.9] Giselle Knox MD, [facility] CPT-4: 03158 05/15/2018 ([id number]) 37999 EST. PATIENT, LEVEL IV Diagnosis: Essential (primary) hypertension[ICD10: I10] Diagnosis: Type 2 diabetes mellitus with hyperglycemia[ICD10: E11.65] Diagnosis: Hypothyroidism, unspecified[ICD10: E03.9] Diagnosis: Spinal stenosis, lumbar region without neurogenic claudication[ICD10 : M48.061] Diagnosis: Vitamin B12 deficiency anemia due to intrinsic factor deficiency[ ICD10: D51.0] Giselle Knox MD, [facility] CPT-4: 95589 01/12/2018 ([id number]) 78760 EST. PATIENT, LEVEL IV Diagnosis: Varicose veins of bilateral lower extremities with pain[ICD10: I83.813] Diagnosis: Low back pain[ICD10: M54.5] Diagnosis: Hypothyroidism, unspecified[ICD10: E03.9] Diagnosis: Type 2 diabetes mellitus with hyperglycemia[ICD10: E11.65] Giselle Knox MD, [facility] CPT-4: 90227 11/25/2017 29750 EST. PATIENT, LEVEL IV Diagnosis: Localized edema[ICD10: R60.0] Diagnosis: Vitamin B12 deficiency anemia due to intrinsic factor deficiency[ ICD10: D51.0] Chasity Knox MD, [facility] CPT-4: 76631 93800 EST. PATIENT, LEVEL IV Diagnosis: Essential (primary) hypertension[ICD10: I10] Diagnosis: Type 2 diabetes mellitus with hyperglycemia[ICD10: E11.65] Diagnosis: Vitamin B12 deficiency anemia due to intrinsic factor deficiency[ ICD10: D51.0] Chasity Knox MD, [facility] CPT-4: 93955 23899 EST. PATIENT, LEVEL IV Diagnosis: Type 2 diabetes mellitus with hyperglycemia[ICD10: E11.65] Diagnosis: Essential (primary) hypertension[ICD10: I10] Diagnosis: Vitamin B12 deficiency anemia due to intrinsic factor deficiency[ ICD10: D51.0] Chasity Knox MD, [facility] CPT-4: 78890 ([id number]) 79558 EST. PATIENT, LEVEL IV Diagnosis: Essential (primary) hypertension[ICD10: I10] Diagnosis: Type 2 diabetes mellitus with hyperglycemia[ICD10: E11.65] Diagnosis: Hypothyroidism, unspecified[ICD10: E03.9] Diagnosis: Vitamin B12 deficiency anemia due to intrinsic factor deficiency[ ICD10: D51.0] Diagnosis: Chronic kidney disease, stage 3 (moderate)[ICD10: N18.3] Giselle Knox MD , [facility] CPT-4: 48041 05/19/2017 ([id number]) 32572 EST. PATIENT, LEVEL IV Diagnosis: Essential (primary) hypertension[ICD10: I10] Diagnosis: Type 2 diabetes mellitus with hyperglycemia[ICD10: E11.65] Diagnosis: Hypothyroidism, unspecified[ICD10: E03.9] Giselle Knox MD, [facility] CPT-4: 85143 02/15/2017 ([id number]) 40556 EST. PATIENT, LEVEL IV Diagnosis: Type 2 diabetes mellitus with hyperglycemia[ICD10: E11.65] Diagnosis: Cough[ICD10: R05] Diagnosis: Acute upper respiratory infection, unspecified[ICD10: J06.9] Diagnosis: Hypothyroidism, unspecified[ICD10: E03.9] Diagnosis: Chronic kidney disease, stage 3 (moderate)[ICD10: N18.3] Giselle Knox MD , [facility] CPT-4: 53783 11/16/2016 ([id number]) 76792 EST. PATIENT, LEVEL IV Diagnosis: Type 2 diabetes mellitus with hyperglycemia[ICD10: E11.65] Diagnosis: Hypothyroidism, unspecified[ICD10: E03.9] Diagnosis: Essential (primary) hypertension[ICD10: I10] Giselle Knox MD, [facility] CPT-4: 18755 08/19/2016 ([id number]) 46454 EST. PATIENT, LEVEL III Diagnosis: Type 2 diabetes mellitus with hyperglycemia[ICD10: E11.65] Giselle Knox MD, [facility] CPT-4: 32170 07/15/2016 ([id number]) 97208 EST. PATIENT, LEVEL IV Diagnosis: Type 2 diabetes mellitus with hyperglycemia[ICD10: E11.65] Diagnosis: Atrophy of thyroid (acquired)[ICD10: E03.4] Diagnosis: Vitamin B12 deficiency anemia due to intrinsic factor deficiency[ ICD10: D51.0] Diagnosis: Chronic kidney disease, stage 3 (moderate)[ICD10: N18.3] Diagnosis: Essential (primary) hypertension[ICD10: I10] Jennifer Knox MD, [facility] CPT-4: 68458 06/03/2016 ([id number]) 30480 EST. PATIENT, LEVEL III Diagnosis: Type 2 diabetes mellitus with hyperglycemia[ICD10: E11.65] Diagnosis: Essential (primary) hypertension[ICD10: I10] Diagnosis: Chronic kidney disease, stage 3 (moderate)[ICD10: N18.3] Diagnosis: VACCIN STREP PNEUMONIAE[ICD10: Z23] Giselle Knxo MD, [facility] CPT-4: 00531 04/22/2016 19716 EST. PATIENT, LEVEL IV Diagnosis: Type 2 diabetes mellitus with hyperglycemia[ICD10: E11.65] Diagnosis: Essential (primary) hypertension[ICD10: I10] Chasity Knox MD, [facility] CPT-4: 70472 01/22/2016 ([id number]) 71331 EST. PATIENT, LEVEL III Diagnosis: Type 2 diabetes mellitus with hyperglycemia[ICD10: E11.65] Diagnosis: Essential (primary) hypertension[ICD10: I10] Giselle Knox MD, [facility] CPT-4: 83596 10/23/2015 37146 EST. PATIENT, LEVEL IV Diagnosis: Type 2 diabetes mellitus with hyperglycemia[ICD10: E11.65] Diagnosis: Vitamin B12 deficiency anemia due to intrinsic factor deficiency[ ICD10: D51.0] Diagnosis: Essential (primary) hypertension[ICD10: I10] Chasity Knox MD, [facility] CPT-4: 96795 09/12/2015 ([id number]) 21230 EST. PATIENT, LEVEL IV Diagnosis: Essential (primary) hypertension[ICD10: I10] Diagnosis: Type 2 diabetes mellitus with hyperglycemia[ICD10: E11.65] Diagnosis: Hypothyroidism, unspecified[ICD10: E03.9] Giselle Knox MD, [facility] CPT-4: 06748 08/05/2015 ([id number]) 61519 EST. PATIENT, LEVEL III Diagnosis: ESSENTIAL HYPERTENSION[ICD9: 401.9] Diagnosis: DIABETES TYPE II[ICD9: 250.00] Jennifer Knox MD, [facility] CPT- 4: 03292 04/03/2015 ([id number]) 83181 EST. PATIENT, LEVEL IV Diagnosis: ESSENTIAL HYPERTENSION[ICD9: 401.9] Diagnosis: DIABETES TYPE II[ICD9: 250.00] Diagnosis: Hypothyroidism[ICD9: 244.9] [facility] CPT-4: 50313 01/30/2015 ([id number]) OFFICE VISIT, NEW - LEVEL 4 Diagnosis: ESSENTIAL HYPERTENSION[ICD9: 401.9] Diagnosis: DIABETES TYPE II[ICD9: 250.00] Diagnosis: Impacted cerumen[ICD9: 380.4] Jennifer Knox MD, [facility] CPT- 4: 54859 01/02/2015 Plan of Care Planned Activity Notes Codes Status Date Patient Education: Patient Medication Summary Completed 05/29/2018 Visit Plan: DM-here for IPRO placement in order to get a full picture of blood sugar readings in attempt to identify trends in blood sugars so we can better manage her medications. Return in 1 week for removal of IPRO. 05/22/2018 Appointment: Giselle Mccoy WPtel: [address] [place], [place] [phone] (30 min) [facility] 05/22/2018 Patient Education: Patient Medication Summary Completed [...] control. 05/15/2018 Appointment[facility] [phone] [phone] (15 min) Moderate 05/15/2018 Patient Education: Patient [...] evaluation-recommend PT 01/12/2018 Appointment: Giselle Mccoy WPtel[phone] [place] (30 min) Complex 01/12/2018 Patient Education: Patient Medication Summary Completed 01/12/2018 Care Plan: Referral Order SNOMED-CT : [id number] Pending 01/12/2018 Visit Plan: Varicose veins-rx for compression stockings provided and instructed on use Low back pain-recommend xray lumbar spine Hypothyroidism-check labs DM-check Hgb A1c 11/25/2017 Appointment: [facility] [phone] [phone] (30 min) Complex 11/25/2017 Patient Education: Patient Medication Summary Completed 11/25/2017 Care Plan: X-RAY EXAM L-S SPINE 2/3 [facility] : 19029-5 Pending 11/25/2017 Visit Plan: Edema - Left [...] or concerns. 09/15/2017 Appointment: [facility] Caldwell [facility] [phone] [phone] (30 min) Complex 09/15/2017 Patient Education: Patient [...] control. 08/17/2017 Appointment: [facility] Caldwell [facility] [phone] [facility] [place] (15 min) Moderate 08/17/2017 Patient Education: Patient [...] at home. 07/19/2017 Appointment: Chasity Caldwell WPtel: [phone] [facility] [place] (15 min) Moderate 07/19/2017 Patient Education: Patient Medication Summary Completed 07/19/2017 Appointment: Jennifer Knox WPtel: [phone] [facility] (15 min) Moderate 06/13/2017 Visit Plan: [...] to medications. 05/19/2017 Appointment: [facility]ccoy [facility]el[facility] [phone] [phone] [place] (30 min) Complex 05/19/2017 Patient Education: Patient [...] of control. 02/15/2017 Appointment: Giselle Mccoy WPtel[phone] (15 min) Moderate 02/15/2017 Patient Education: Patient [...] today 11/16/2016 Appointment: [facility]cc[facility]el[facility] [phone] [phone] (15 min) Moderate 11/16/2016 Patient Education: Patient [...] of control. 08/19/2016 Appointment: [facility]el[facility] [phone] [phone] (15 min) Moderate 08/19/2016 Patient Education: Patient Medication Summary Completed 08/19/2016 Patient Education: Obesity Completed 08/19/2016 Care Plan: Tsh Cancelled 08/19/2016 Care Plan: %Hba1C LOINC : 61814-5 Cancelled 08/19/2016 Care Plan: Lipid Cancelled 08/19/2016 Care Plan: Free T4 patient coming back next week Cancelled 08/19/2016 Appointment: Injection 07/29/2016 Patient Education: Patient Medication Summary Completed 07/29/2016 Appointment: Giselle Mccoy WPtel[phone] (30 min) Complex 07/22/2016 Visit Plan: Diabetes-having hypoglycemia in the mornings- insulin adjusted-patient and verbalized understanding of plan. Follow up in 1 month-call sooner if still having low blood sugars. Sinus congestion- start claritin 07/15/2016 Appointment: Giselle Mccoy WPtel: [phone] [phone] (30 min) Complex 07/15/2016 Patient Education: [...] of control. 06/03/2016 Appointment: [phone] [phone] (15 min) Moderate 06/03/2016 Patient [...] 1 MONTH 04/22/2016 Appointment: Giselle Mccoy WPtel[phone] (15 min) Moderate 04/22/2016 Patient Education: Patient [...] needed. 01/02/2015 Appointment: [facility] [phone] [facility] [place] ([place] New Patient 01/02/2015 [...] ER with any acute changes or concerns. CHECK LABS WITH NEXT APPOINTMENT . Hypertension [...]
--- OUTSIDE RECORDS SUMMARY | 2018-06-17 10:32 | XMS REPORT | CCD ---
Author Author [facility] Organization [facility] Address [address] [place] [address] Phone Care Team Providers Care Radiation Oncology Nurse Name Role Phone PP Unavailable CCM Unavailable Summary Purpose Interface Exchange Insurance Providers Payer name Policy type / Coverage type Covered green party ID Effective Begin Date Effective End Date [facility] Commercial Insurance [id number] Unknown Family history Runs in the family [...] ICD-9: 244.9 ICD-10: E03.9 Active 08/19/2016 Unknown Type 2 diabetes mellitus with hyperglycemia ICD-9: 250.00 ICD-10: E11.65 Active 07/14/2016 Unknown Spinal stenosis, lumbar region without neurogenic [...] unspecified ICD-9: 244.9 ICD-10: E03.9 08/19/2016 Active Type 2 diabetes mellitus with hyperglycemia ICD-9: 250.00 ICD-10: E11.65 07/14/2016 Active Spinal stenosis, lumbar region without neurogenic [...] U-100 Insulin 100 unit/mL subcutaneous suspension RxNorm: 810970 18 Unit(s) SQ QAM 05/15/2018 No Stop Date Active levothyroxine 100 mcg tablet RxNorm: 251218 1 Tablet(s) PO daily 05/11/2018 09/07/2018 Active carvedilol 12.5 mg tablet RxNorm: 699159 TAKE ONE TABLET BY MOUTH TWICE A DAY 05/05/2018 07/28/2019 Active losartan 100 mg tablet RxNorm: 956606 TAKE ONE TABLET BY MOUTH DAILY 03/24/2018 06/10/2020 Active terazosin 2 mg capsule RxNorm: 344013 TAKE ONE CAPSULE BY MOUTH DAILY 03/07/2018 03/01/2019 Active Lantus Solostar U-100 Insulin 100 unit/mL (3 mL) subcutaneous pen RxNorm: 978693 Unit(s) INJECT 24 UNITS UNDER THE SKIN EVERY NIGHT AT BEDTIME 01/12/2018 No Stop Date Active cyanocobalamin (vit B-12) 1,000 mcg/mL injection solution RxNorm: 042849 1 Milliliter(s) Inj 01/12/2018 01/12/2018 Inactive Humulin 70/30 U-100 Insulin 100 unit/mL subcutaneous suspension RxNorm: 074309 INJECT 18 UNITS UNDER THE SKIN EVERY MORNING 11/14/2017 03/05/2018 Inactive carvedilol 12.5 mg tablet RxNorm: 508614 TAKE ONE TABLET BY MOUTH TWICE A DAY 11/07/2017 05/04/2018 Inactive cyanocobalamin (vit B-12) 1,000 mcg/mL injection solution RxNorm: 950836 Milliliter(s) Inj 09/15/2017 09/15/2017 Inactive terazosin 2 mg capsule RxNorm: 294271 Capsule(s) TAKE ONE CAPSULE BY MOUTH DAILY 09/07/2017 03/05/2018 Inactive Lantus Solostar 100 unit/mL (3 mL) subcutaneous insulin pen RxNorm: 547035 INJECT 35 UNITS UNDER THE SKIN EVERY NIGHT AT BEDTIME 201701/11/2018 Inactive One Touch Test strips RxNorm: 1 test Miscellaneous BID 201708/16/2018 Active Contour Test Strips RxNorm: TEST BLOOD SUGAR TWO TIMES A DAY E11.65 08/22/2017 02/22/2019 Active Tamiflu 75 mg capsule RxNorm: 777588 1 Capsule(s) PO daily 08/1708/16/2017 Inactive Tamiflu 75 mg capsule RxNorm: 578925 1 Capsule(s) PO daily 08/1708/26/2017 Inactive cyanocobalamin (vit B-12) 1,000 mcg/mL injection solution RxNorm: 800909 1 Milliliter(s) Inj 08/17/2017 08/17/2017 Inactive carvedilol 12.5 mg tablet RxNorm: 498961 TAKE ONE TABLET BY MOUTH TWICE A DAY 08/10/2017 11/06/2017 Inactive cyanocobalamin (vit B-12) 1,000 mcg/mL injection solution RxNorm: 613577 1 Milliliter(s) Inj 07/19/2017 07/19/2017 Inactive Humulin 70/30 100 unit/mL subcutaneous suspension RxNorm: 781137 14 Unit(s) SQ QAM 07/06/2017 05/14/2018 Inactive Lantus Solostar 100 unit/mL (3 mL) subcutaneous insulin pen RxNorm: 875082 26 Unit(s) SQ QHS 07/06/2017 08/28/2017 Inactive losartan 100 mg tablet RxNorm: 572980 TAKE ONE TABLET BY MOUTH DAILY 06/07/2017 03/23/2018 Inactive Lantus Solostar 100 unit/mL (3 mL) subcutaneous insulin pen RxNorm: 636537 28 Unit(s) SQ QHS 05/19/2017 07/05/2017 Inactive cyanocobalamin (vit B-12) 1,000 mcg/mL injection solution RxNorm: 287663 1 Milliliter(s) Inj 05/19/2017 05/19/2017 Inactive terazosin 2 mg capsule RxNorm: 426842 TAKE ONE CAPSULE BY MOUTH DAILY 05/16/2017 09/06/2017 Inactive cyanocobalamin (vit B-12) 1,000 mcg/mL injection solution RxNorm: 321350 1 Milliliter(s) Inj 04/06/2017 04/06/2017 Inactive cyanocobalamin (vit B-12) 1,000 mcg/mL injection solution RxNorm: 471775 Milliliter(s) Inj 01/04/2017 01/04/2017 Inactive Humulin 70/30 U-100 Insulin 100 unit/mL subcutaneous suspension RxNorm: 445828 18 Unit(s) SQ QAM 12/22/20162016 Inactive cyanocobalamin (vit B-12) 1,000 mcg/mL injection solution RxNorm: 184071 1 Milliliter(s) Inj 12/10/2016 12/10/2016 Inactive Zithromax Z-Jose 250 mg tablet RxNorm: 716890 1 Tablet(s) PO UD 11/16/2016 11/20/2016 Inactive terazosin 2 mg capsule RxNorm: 024739 TAKE ONE CAPSULE BY MOUTH DAILY 11/08/2016 05/06/2017 Inactive Lantus Solostar 100 unit/mL (3 mL) subcutaneous insulin pen RxNorm: 767392 INJECT 35 UNITS UNDER THE SKIN EVERY NIGHT AT BEDTIME 201607/18/2017 Inactive cyanocobalamin (vit B-12) 1,000 mcg/mL injection solution RxNorm: 741741 Milliliter(s) Inj 10/13/2016 10/13/2016 Inactive cyanocobalamin (vit B-12) 1,000 mcg/mL injection solution RxNorm: 221690 1 Milliliter(s) Inj 09/03/2016 09/03/2016 Inactive Contour Test Strips RxNorm: TEST BLOOD SUGAR TWO TIMES A DAY E11.65 08/19/2016 08/21/2017 Inactive carvedilol 12.5 mg tablet RxNorm: 514531 TAKE ONE TABLET BY MOUTH TWICE A DAY 08/05/2016 01/01/2017 Inactive carvedilol 12.5 mg tablet RxNorm: 818831 TAKE ONE TABLET BY MOUTH TWICE A DAY 08/05/2016 01/01/2017 Inactive carvedilol 12.5 mg tablet RxNorm: 158067 1 Tablet(s) PO BID 05/201701/30/2017 Inactive cyanocobalamin (vit B-12) 1,000 mcg/mL injection solution RxNorm: 061215 Milliliter(s) Inj 07/29/2016 07/29/2016 Inactive Lantus Solostar 100 unit/mL (3 mL) subcutaneous insulin pen RxNorm: 490121 30 Unit(s) SQ QHS 07/15/2016 05/18/2017 Inactive Humulin 70/30 100 unit/mL subcutaneous suspension RxNorm: 664424 18 Unit(s) SQ QAM 07/15/2016 12/21/2016 Inactive losartan 100 mg tablet RxNorm: 813667 TAKE ONE TABLET BY MOUTH DAILY 07/08/2016 06/02/2017 Inactive terazosin 2 mg capsule RxNorm: 483030 TAKE ONE CAPSULE BY MOUTH DAILY 06/10/2016 11/06/2016 Inactive cyanocobalamin (vit B-12) 1,000 mcg/mL injection solution RxNorm: 176720 1 Milliliter(s) Inj 06/03/2016 06/03/2016 Inactive Humulin 70/30 100 unit/mL subcutaneous suspension RxNorm: 329962 Unit(s) INJECT 10 UNITS UNDER THE SKIN 06/01/20162015 Inactive Request already responded to by other means (e.g. phone or fax) Humulin 70/30 100 unit/mL subcutaneous suspension RxNorm: 805431 INJECT 10 UNITS UNDER THE SKIN BEFORE MEALS 06/01/201601/2016 Inactive Request already responded to by other means (e.g. phone or fax) Lantus Solostar 100 unit/mL (3 mL) subcutaneous insulin pen RxNorm: 290393 35 Unit(s) SQ QHS 05/26/2016 07/14/2016 Inactive Humulin 70/30 100 unit/mL subcutaneous suspension RxNorm: 818411 10 Unit(s) SQ QAM 05/24/2016 10/02/2016 Inactive Humulin 70/30 100 unit/mL subcutaneous suspension RxNorm: 160178 21 Unit(s) SQ QAM 05/24/2016 05/23/2016 Inactive Lantus Solostar 100 unit/mL (3 mL) subcutaneous insulin pen RxNorm: 363038 32 Unit(s) SQ QHS 04/22/2016 05/25/2016 Inactive Humulin 70/30 100 unit/mL subcutaneous suspension RxNorm: 909537 21 Unit(s) SQ QAM 04/22/2016 05/24/2016 Inactive with breakfast hydrochlorothiazide 25 mg tablet RxNorm: 189860 TAKE ONE TABLET BY MOUTH DAILY 02/04/2016 02/16/2016 Inactive terazosin 2 mg capsule RxNorm: 502271 Capsule(s) TAKE ONE CAPSULE BY MOUTH DAILY. 12/01/2015 05/28/2016 Inactive Humulin 70/30 100 unit/mL subcutaneous suspension RxNorm: 413865 INJECT 10 UNITS UNDER THE SKIN BEFORE MEALS 11/06/2015 Inactive hydrochlorothiazide 25 mg tablet RxNorm: 811981 1 Tablet(s) PO daily 10/06/2015 02/02/2016 Inactive cyanocobalamin (vit B-12) 1,000 mcg/mL injection solution RxNorm: 068318 Milliliter(s) Inj 09/15/2015 09/15/2015 Inactive Humulin 70/30 100 unit/mL subcutaneous suspension RxNorm: 538983 INJECT 10 UNITS UNDER THE SKIN BEFORE MEALS 09/08/2015 Inactive cyanocobalamin (vit B-12) 1,000 mcg/mL injection solution RxNorm: 932125 Milliliter(s) Inj 09/08/2015 09/08/2015 Inactive terazosin 2 mg capsule RxNorm: 656138 TAKE ONE CAPSULE BY MOUTH DAILY. DISCONTINUE 5 MG CAPSULES 09/01/201511/28 Inactive cyanocobalamin (vit B-12) 1,000 mcg/mL injection solution RxNorm: 535868 Milliliter(s) Inj 09/01/2015 09/01/2015 Inactive cyanocobalamin (vit B-12) 1,000 mcg/mL injection solution RxNorm: 389692 Milliliter(s) Inj 08/25/2015 08/25/2015 Inactive levothyroxine 112 mcg tablet RxNorm: 592217 1 Tablet(s) PO daily 08/06/2015 02/14/2017 Inactive Lantus Solostar 100 unit/mL (3 mL) subcutaneous insulin pen RxNorm: 942890 35 Unit(s) SQ QHS 08/06/2015 04/21/2016 Inactive Humulin 70/30 100 unit/mL subcutaneous suspension RxNorm: 437979 20 Unit(s) SQ AC 08/05/2015 04/21/2016 Inactive with breakfast carvedilol 12.5 mg tablet RxNorm: 095977 1 Tablet(s) PO BID 06/201601/31/2016 Inactive Humulin 70/30 100 unit/mL subcutaneous suspension RxNorm: 668245 10 Unit(s) SQ AC 07/22/2015 08/04/2015 Inactive losartan 100 mg tablet RxNorm: 845168 TAKE ONE TABLET BY MOUTH DAILY 06/25/2015 06/18/2016 Inactive Lantus Solostar 100 unit/mL (3 mL) subcutaneous insulin pen RxNorm: 372151 30 Unit(s) SQ QHS 06/18/2015 08/05/2015 Inactive terazosin 2 mg capsule RxNorm: 364484 1 Capsule(s) PO daily 08/11/2015 Inactive DC the 5mg order terazosin 2 mg capsule RxNorm: 212076 1 Capsule(s) PO daily 04/13/2015 Inactive Synthroid 25 mcg tablet RxNorm: 138622 1 Tablet(s) PO daily 02/14/2017 Inactive Synthroid 25 mcg tablet RxNorm: 166145 1 Tablet(s) PO daily 04/10/2015 Inactive Lantus Solostar 100 unit/mL (3 mL) subcutaneous insulin pen RxNorm: 151737 30 Unit(s) SQ QHS 04/04/2015 06/17/2015 Inactive terazosin 5 mg tablet RxNorm: 827683 1 Tablet(s) PO daily 201404/13/2015 Inactive Lantus Solostar 100 unit/mL (3 mL) subcutaneous insulin pen RxNorm: 827214 25 Unit(s) SQ QHS 01/08/2015 04/03/2015 Inactive carvedilol 25 mg tablet RxNorm: 864601 1 Tablet(s) PO BID 01/0201/31/2015 Inactive terazosin 5 mg tablet RxNorm: 140637 1 Tablet(s) PO daily 201401/01/2015 Inactive levothyroxine 125 mcg tablet RxNorm: 448070 1 Tablet(s) PO daily 01/02/2015 01/31/2015 Inactive terazosin 5 mg tablet RxNorm: 365873 1/2 Tablet(s) PO daily 05/201501/31/2015 Inactive losartan 100 mg tablet RxNorm: 546253 1 Tablet(s) PO daily 08/201404/22/2015 Inactive losartan 100 mg tablet RxNorm: 786636 1 Tablet(s) PO daily 08/201412/23/2014 Inactive Contour Test Strips RxNorm: Miscellaneous test blood sugars BID 12/06/2014 12/05/2014 Inactive dx 250.00 Contour Test Strips RxNorm: Miscellaneous test blood sugars BID or UD 12/06/2014 06/23/2015 Inactive dx 250.00 [SAVINGS FOR NON-COVERED DRUGS -- BIN:[id number], PCN: [id number], Group: [id number], ID# [id number], Questions: . THIS IS NOT INSURANCE.] folic acid 1 mg tablet RxNorm: 240743 1 Tablet(s) PO QHS No Start Date Active Microlet Lancet RxNorm : Miscellaneous Test BID or Ud No Start Date Active 250.0 aspirin 81 mg tablet,delayed release RxNorm: 281097 1 Tablet(s) PO daily No Start Date Active Stool Softener 100 mg capsule RxNorm: 7575104 1 Capsule(s) PO every other day No Start Date Active folic acid oral RxNorm : 4511 oral No Start Date 05/19/2017 Inactive cyanocobalamin (vit B-12) 100 mcg tablet RxNorm: 474931 1 Tablet(s) PO daily No Start Date 02/14/2017 Inactive hydrochlorothiazide 25 mg tablet RxNorm: 502306 1 Tablet(s) PO daily No Start Date 10/05/2015 Inactive Stool Softener 100 mg capsule RxNorm: 2199491 1 Capsule(s) PO daily No Start Date 05/18/2017 Inactive Humulin 70/30 100 unit/mL subcutaneous suspension RxNorm: 990908 20 Unit(s) SQ QAM No Start Date 07/21/2015 Inactive levothyroxine 100 mcg tablet RxNorm: 968123 1 Tablet(s) PO daily No Start Date 05/10/2018 Inactive Lantus Solostar 100 unit/mL (3 mL) subcutaneous insulin pen RxNorm: 770379 20 Unit(s) SQ QHS No Start Date 01/07/2015 Inactive ferrous sulfate 325 mg (65 mg iron) tablet RxNorm: 885010 1 Tablet(s) PO daily No Start Date 05/18/2017 Inactive Medication Administered Medication Codes Instructions Start Date Status cyanocobalamin (vit B-12) 1,000 mcg/mL injection solution RxNorm: 132430 1Milliliter 01/12/2018 No longer Active cyanocobalamin (vit B-12) 1,000 mcg/mL injection solution RxNorm: 161152 Milliliter 09/15/2017 No longer Active cyanocobalamin (vit B-12) 1,000 mcg/mL injection solution RxNorm: 603539 1Milliliter 08/17/2017 No longer Active cyanocobalamin (vit B-12) 1,000 mcg/mL injection solution RxNorm: 160924 1Milliliter 07/19/2017 No longer Active cyanocobalamin (vit B-12) 1,000 mcg/mL injection solution RxNorm: 661323 1Milliliter 05/19/2017 No longer Active cyanocobalamin (vit B-12) 1,000 mcg/mL injection solution RxNorm: 450439 1Milliliter 04/06/2017 No longer Active cyanocobalamin (vit B-12) 1,000 mcg/mL injection solution RxNorm: 983690 Milliliter 01/04/2017 No longer Active cyanocobalamin (vit B-12) 1,000 mcg/mL injection solution RxNorm: 224113 1Milliliter 12/10/2016 No longer Active cyanocobalamin (vit B-12) 1,000 mcg/mL injection solution RxNorm: 649834 Milliliter 10/13/2016 No longer Active cyanocobalamin (vit B-12) 1,000 mcg/mL injection solution RxNorm: 183223 1Milliliter 09/03/2016 No longer Active cyanocobalamin (vit B-12) 1,000 mcg/mL injection solution RxNorm: 393408 Milliliter 07/29/2016 No longer Active cyanocobalamin (vit B-12) 1,000 mcg/mL injection solution RxNorm: 491196 1Milliliter 06/03/2016 No longer Active cyanocobalamin (vit B-12) 1,000 mcg/mL injection solution RxNorm: 975885 Milliliter 09/15/2015 No longer Active cyanocobalamin (vit B-12) 1,000 mcg/mL injection solution RxNorm: 985385 Milliliter 09/08/2015 No longer Active cyanocobalamin (vit B-12) 1,000 mcg/mL injection solution RxNorm: 343515 Milliliter 09/01/2015 No longer Active cyanocobalamin (vit B-12) 1,000 mcg/mL injection solution RxNorm: 369336 Milliliter 08/25/2015 No longer Active Immunizations Vaccine Codes Date Status Influenza CVX: 141 04/28/2018 completed Influenza CVX: 141 05/18/2017 completed Pneumococcal (Adult) CVX: 133 04/22/2016 completed Influenza CVX: 141 05/07/2015 completed Assessments Condition Codes Effective Dates Type 2 diabetes mellitus with hyperglycemia ICD-10: E11.65 ICD-9: 250.02 05/22/2018 Hypothyroidism, unspecified ICD-10: E03.9 ICD-9: 244.9 05/15/2018 Type 2 diabetes mellitus with hyperglycemia ICD-10: E11.65 ICD-9: 250.00 05/15/2018 Essential (primary) hypertension ICD-10: I10 ICD-9: [...] Item Item Code Result Date Free T4 Cha907 FREE T4 1.21 ng/dL 05/15/2018 Tsh Ord6 TSH (3rd IS) 0.97 uIU/mL 05/15/2018 Comp Metabolic Mcp357 NA 142 mEq/L 05/15/2018 Comp Metabolic Vww632 K 4.0 mEq/L 05/15/2018 Comp Metabolic Rsv769 CL 107 mEq/L 05/15/2018 Comp Metabolic Iqz288 CO2 28.0 mEq/L 05/15/2018 Comp Metabolic Kgc870 ANION GAP 11 05/15/2018 Comp Metabolic Bij676 GLUCOSE 211 mg/dL 05/15/2018 Comp Metabolic Jdz403 Creat 0.9 mg/dL 05/15/2018 Comp Metabolic Avp489 eGFR 61 ml/min/1.73m2 05/15/2018 Comp Metabolic Asz861 BUN 21 mg/dL 05/15/2018 Comp Metabolic Xjf270 B/C Ratio 22.6 Ratio 05/15/2018 Comp Metabolic Odx066 CALCIUM 9.1 mg/dL 05/15/2018 Comp Metabolic Lqx394 ALK PHOS 85 U/L 05/15/2018 Comp Metabolic Lzh223 AST(SGOT) 36 U/L 05/15/2018 Comp Metabolic Rdh217 ALT(SGPT) 19 U/L 05/15/2018 Comp Metabolic Qby881 BILI T 0.6 mg/dL 05/15/2018 Comp Metabolic Lcg413 ALBUMIN 3.8 g/dL 05/15/2018 Comp Metabolic Nyb647 TPRO 6.2 g/dL 05/15/2018 Comp Metabolic Gwb064 GLOB 2.4 g/dL 05/15/2018 Comp Metabolic Psy774 A/G Ratio 1.6 Ratio 05/15/2018 Comp Metabolic Arj506 Osmo 292 mOsmo 05/15/2018 %Hba1C Csd789 % HbA1c 17633-0 7.8 % 05/15/2018 %Hba1C Xsq743 Gluc Ave 177 mg/dL 05/15/2018 Comp Metabolic Pei153 NA 139 mEq/L 11/28/2017 Comp Metabolic Xza972 K 4.1 mEq/L 11/28/2017 Comp Metabolic Dwp652 CL 105 mEq/L 11/28/2017 Comp Metabolic Gxy436 CO2 26.0 mEq/L 11/28/2017 Comp Metabolic Vrm358 ANION GAP 12 11/28/2017 Comp Metabolic Rbk179 GLUCOSE 132 mg/dL 11/28/2017 Comp Metabolic Odh476 Creat 0.9 mg/dL 11/28/2017 Comp Metabolic Uvr632 eGFR 66 ml/min/1.73m2 11/28/2017 Comp Metabolic Pit891 BUN 17 mg/dL 11/28/2017 Comp Metabolic Zsm005 B/C Ratio 19.5 Ratio 11/28/2017 Comp Metabolic Vbf021 CALCIUM 9.1 mg/dL 11/28/2017 Comp Metabolic Yct352 ALK PHOS 78 U/L 11/28/2017 Comp Metabolic Npt958 AST(SGOT) 35 U/L 11/28/2017 Comp Metabolic Ter818 ALT(SGPT) 17 U/L 11/28/2017 Comp Metabolic Hrs569 BILI T 0.6 mg/dL 11/28/2017 Comp Metabolic Jxm129 ALBUMIN 3.9 g/dL 11/28/2017 Comp Metabolic Nxc990 TPRO 6.4 g/dL 11/28/2017 Comp Metabolic Agq172 GLOB 2.5 g/dL 11/28/2017 Comp Metabolic Wgv889 A/G Ratio 1.6 Ratio 11/28/2017 Comp Metabolic Aoz965 Osmo 281 mOsmo 11/28/2017 Tsh Ord6 TSH (3rd IS) 1.14 uIU/mL 11/28/2017 Free T4 Ios205 FREE T4 1.05 ng/dL 11/28/2017 %Hba1C Sun270 % HbA1c 34915-0 7.7 % 11/25/2017 %Hba1C Fnw883 Gluc Ave 174 mg/dL 11/25/2017 Cbc With [...] 39.8 % 11/25/2017 Cbc With Differential Ord2 [place]% 10.2 % 11/25/2017 Cbc With Differential Ord2 [...] 2.56 K/ul 11/25/2017 Cbc With Differential Ord2 [place] ABS# 0.7 K/ul 11/25/2017 Cbc With Differential [...] 20.4 % 05/19/2017 Cbc With Differential Ord2 [place]% 6.8 % 05/19/2017 Cbc With Differential Ord2 [...] 1.64 K/ul 05/19/2017 Cbc With Differential Ord2 [place] ABS# 0.6 K/ul 05/19/2017 Cbc With Differential Ord2 Eos ABS# 0.2 K/ul 05/19/2017 Cbc With Differential Ord2 Baso ABS# 0.0 K/ul 05/19/2017 B12 Gov349 B12 >1500.00 pg/ml 05/19/2017 Free T4 Qec260 FREE T4 1.10 ng/dL 05/19/2017 %Hba1C Gdk173 % HbA1c 37608-3 6.8 % 05/19/2017 %Hba1C Uqs542 Gluc Ave 148 mg/dL 05/19/2017 Tsh Ord6 hTSH II 1.73 uIU/mL 05/19/2017 Comp Metabolic Poo977 NA 140 mEq/L 05/19/2017 Comp Metabolic Nbm588 K 3.8 mEq/L 05/19/2017 Comp Metabolic Qwe698 CL 108 mEq/L 05/19/2017 Comp Metabolic Vjv388 CO2 21.0 mEq/L 05/19/2017 Comp Metabolic Iog201 ANION GAP 15 05/19/2017 Comp Metabolic Vlc842 GLUCOSE 207 mg/dL 05/19/2017 Comp Metabolic Lzk023 Creat 1.0 mg/dL 05/19/2017 Comp Metabolic Gxt237 eGFR 55 ml/min/1.73m2 05/19/2017 Comp Metabolic Ggw932 BUN 21 mg/dL 05/19/2017 Comp Metabolic Ohk638 B/C Ratio 20.4 Ratio 05/19/2017 Comp Metabolic Lgl820 CALCIUM 9.1 mg/dL 05/19/2017 Comp Metabolic Ise835 ALK PHOS 74 U/L 05/19/2017 Comp Metabolic Xgw742 AST(SGOT) 32 U/L 05/19/2017 Comp Metabolic Hqp537 ALT(SGPT) 15 U/L 05/19/2017 Comp Metabolic Nrm276 BILI T 0.6 mg/dL 05/19/2017 Comp Metabolic Itt744 ALBUMIN 3.9 g/dL 05/19/2017 Comp Metabolic Qtn487 TPRO 6.2 g/dL 05/19/2017 Comp Metabolic Hyc926 GLOB 2.3 g/dL 05/19/2017 Comp Metabolic Rps397 A/G Ratio 1.6 Ratio 05/19/2017 Comp Metabolic Pvd226 Osmo 288 mOsmo 05/19/2017 Cbc With Differential [...] 29.3 pg 12/10/2016 Cbc With Differential Ord2 [place]% 7.1 % 12/10/2016 Cbc With Differential Ord2 [...] 2.50 K/ul 12/10/2016 Cbc With Differential Ord2 [place] ABS# 0.5 K/ul 12/10/2016 Cbc With Differential Ord2 Eos ABS# 0.1 K/ul 12/10/2016 Cbc With Differential Ord2 Baso ABS# 0.0 K/ul 12/10/2016 B12 Tbt216 B12 222.00 pg/ml 12/10/2016 %Hba1C Efr646 % HbA1c 61499-9 7.5 % 11/16/2016 %Hba1C Ote726 Gluc Ave 169 mg/dL 11/16/2016 Free T4 Hle718 FREE T4 1.03 ng/dL 11/16/2016 Comp Metabolic Jns009 NA 138 mEq/L 11/16/2016 Comp Metabolic Fza235 K 3.8 mEq/L 11/16/2016 Comp Metabolic Rrv788 CL 103 mEq/L 11/16/2016 Comp Metabolic Lya278 CO2 26.0 mEq/L 11/16/2016 Comp Metabolic Zzf120 ANION GAP 13 11/16/2016 Comp Metabolic Jju988 GLUCOSE 235 mg/dL 11/16/2016 Comp Metabolic Vdn165 Creat 0.9 mg/dL 11/16/2016 Comp Metabolic Biu959 eGFR 62 ml/min/1.73m2 11/16/2016 Comp Metabolic Omp326 BUN 20 mg/dL 11/16/2016 Comp Metabolic Oqk189 B/C Ratio 21.7 Ratio 11/16/2016 Comp Metabolic Qzp521 CALCIUM 8.9 mg/dL 11/16/2016 Comp Metabolic Mkn703 ALK PHOS 75 U/L 11/16/2016 Comp Metabolic Osi315 AST(SGOT) 30 U/L 11/16/2016 Comp Metabolic Dyb648 ALT(SGPT) 13 U/L 11/16/2016 Comp Metabolic Ejh847 BILI T 0.6 mg/dL 11/16/2016 Comp Metabolic Xkl652 ALBUMIN 3.8 g/dL 11/16/2016 Comp Metabolic Myv577 TPRO 6.8 g/dL 11/16/2016 Comp Metabolic Ine672 GLOB 3.1 g/dL 11/16/2016 Comp Metabolic Lcj678 A/G Ratio 1.2 Ratio 11/16/2016 Comp Metabolic Fpl507 Osmo 286 mOsmo 11/16/2016 Tsh Ord6 hTSH II 2.50 uIU/mL 11/16/2016 Tsh Ord6 hTSH II 3.18 uIU/mL 05/21/2016 Lipid Ord30 CHOL 212 mg/dL 05/21/2016 Lipid Ord30 HDL 43.0 mg/dl 05/21/2016 Lipid Ord30 TRIG 164 mg/dL 05/21/2016 Lipid Ord30 LDL 136 mg/dL 05/21/2016 Lipid Ord30 C/HDL 4.9 Ratio 05/21/2016 B12 Bfj410 B12 159.00 pg/ml 05/21/2016 %Hba1C Bhl315 % HbA1c 10802-7 7.5 % 05/21/2016 %Hba1C Olm080 Gluc Ave 169 mg/dL 05/21/2016 Folate Ord36 Folate >23.80 ng/mL 05/21/2016 Free T4 Nem669 FREE T4 1.03 ng/dL 05/21/2016 CHEM 14 2371790 AST 33 U/L 03/15/2016 CHEM 14 9644092 ALT 13 U/L 03/15/2016 CHEM 14 1649913 BUN 18 mg/dL 03/15/2016 CHEM 14 3701102 ALBUMIN 3.9 g/dL 03/15/2016 CHEM 14 5712219 CHLORIDE 105 mmol/L 03/15/2016 CHEM 14 0279783 Bili Total 0.4 mg/dL 03/15/2016 CHEM 14 6225727 ALK PHOS 60 U/L 03/15/2016 CHEM 14 8829815 SODIUM 138 mmol/L 03/15/2016 CHEM 14 8819229 CREATININE 0.99 mg/dL 03/15/2016 CHEM 14 2345150 CALCIUM 9.4 mg/dL 03/15/2016 CHEM 14 2829117 POTASSIUM 3.8 mmol/L 03/15/2016 CHEM 14 5434374 TOTAL PROTEIN 6.7 g/dL 03/15/2016 CHEM 14 5900192 GLUCOSE 109 mg/dL 03/15/2016 CHEM 14 8225415 Bicarbonate 27 mmol/L 03/15/2016 CHEM 14 4813753 AGAP 6 mmol/L 03/15/2016 GFR CALC 1338227 GFR Non Afr Amr 54 mL/min 03/15/2016 GFR CALC 2155023 GFR Afr Amr >60 mL/min 03/15/2016 B12 Ism358 B12 46.00 pg/ml 08/07/2015 Iron Ord72 Iron [...] Ord2 RDW 16.6 % 08/05/2015 Free T4 Lrk928 FREE T4 1.33 ng/dL 08/05/2015 Comp Metabolic Qge014 NA 137 mEq/L 08/05/2015 Comp Metabolic Rqt427 K 4.5 mEq/L 08/05/2015 Comp Metabolic Aws982 CL 104 mEq/L 08/05/2015 Comp Metabolic Nrc159 CO2 26.0 mEq/L 08/05/2015 Comp Metabolic Jlx783 ANION GAP 12 08/05/2015 Comp Metabolic Lmi928 GLUCOSE 146 mg/dL 08/05/2015 Comp Metabolic Fve582 Creat 1.0 mg/dL 08/05/2015 Comp Metabolic Vxr295 eGFR 56 ml/min/1.73m2 08/05/2015 Comp Metabolic Xcz966 BUN 23 mg/dL 08/05/2015 Comp Metabolic Qgh812 B/C Ratio 22.8 Ratio 08/05/2015 Comp Metabolic Ekk480 CALCIUM 9.3 mg/dL 08/05/2015 Comp Metabolic Vni807 ALK PHOS 71 U/L 08/05/2015 Comp Metabolic Iuz166 AST(SGOT) 33 U/L 08/05/2015 Comp Metabolic Xnn801 ALT(SGPT) 15 U/L 08/05/2015 Comp Metabolic Nvk916 BILI T 0.6 mg/dL 08/05/2015 Comp Metabolic Hfj327 ALBUMIN 3.9 g/dL 08/05/2015 Comp Metabolic Ejq113 TPRO 6.5 g/dL 08/05/2015 Comp Metabolic Ftc292 GLOB 2.6 g/dL 08/05/2015 Comp Metabolic Xxw269 A/G Ratio 1.5 Ratio 08/05/2015 Comp Metabolic Mnt890 Osmo 280 mOsmo 08/05/2015 Tsh Ord6 hTSH II 0.36 uIU/mL 08/05/2015 %Hba1C Dxp072 % HbA1c 41505-7 8.1 % 08/05/2015 %Hba1C Yfk508 Gluc Ave 186 mg/dL 08/05/2015 Free T4 Haw658 FREE T4 0.91 ng/dL 04/11/2015 %Hba1C Wqx530 % HbA1c 99369-5 8.3 % 04/10/2015 %Hba1C Iph190 Gluc Ave 192 mg/dL 04/10/2015 Cbc With [...] Ord2 RDW 15.8 % 04/10/2015 Comp Metabolic Jze478 NA 134 mEq/L 04/10/2015 Comp Metabolic Tfh823 K 4.1 mEq/L 04/10/2015 Comp Metabolic Ovp808 CL 105 mEq/L 04/10/2015 Comp Metabolic Unz897 CO2 26.0 mEq/L 04/10/2015 Comp Metabolic Rmk797 ANION GAP 7 04/10/2015 Comp Metabolic Bkx249 GLUCOSE 126 mg/dL 04/10/2015 Comp Metabolic Ggn771 Creat 1.0 mg/dL 04/10/2015 Comp Metabolic Tgh395 eGFR 58 ml/min/1.73m2 04/10/2015 Comp Metabolic Xgo869 BUN 29 mg/dL 04/10/2015 Comp Metabolic Fzx877 B/C Ratio 29.6 Ratio 04/10/2015 Comp Metabolic Xgb028 CALCIUM 9.3 mg/dL 04/10/2015 Comp Metabolic Lkl464 ALK PHOS 63 U/L 04/10/2015 Comp Metabolic Tmd536 AST(SGOT) 31 U/L 04/10/2015 Comp Metabolic Wld544 ALT(SGPT) 14 U/L 04/10/2015 Comp Metabolic Rkq171 BILI T 0.6 mg/dL 04/10/2015 Comp Metabolic Hqj206 ALBUMIN 3.9 g/dL 04/10/2015 Comp Metabolic Arv241 TPRO 6.3 g/dL 04/10/2015 Comp Metabolic Xfi620 GLOB 2.4 g/dL 04/10/2015 Comp Metabolic Dcf369 A/G Ratio 1.6 Ratio 04/10/2015 Comp Metabolic Zvx998 Osmo 276 mOsmo 04/10/2015 Tsh Ord6 hTSH [...] Procedure Codes Date GLUCOSE MONITORING CONT CPT-4: 81897 05/22/2018 THER/PROPH/DIAG INJ SC/IM CPT-4: 30881 01/12/2018 VITAMIN B12 INJECTION CPT-4: J3420 01/12/2018 THER/PROPH/DIAG INJ SC/IM CPT-4: 92239 09/15/2017 VITAMIN B12 INJECTION CPT-4: J3420 09/15/2017 THER/PROPH/DIAG INJ SC/IM CPT-4: 52771 08/17/2017 VITAMIN B12 INJECTION CPT-4: J3420 08/17/2017 THER/PROPH/DIAG INJ SC/IM CPT-4: 24169 07/19/2017 VITAMIN B12 INJECTION CPT-4: J3420 07/19/2017 THER/PROPH/DIAG INJ SC/IM CPT-4: 12232 05/19/2017 VITAMIN B12 INJECTION CPT-4: J3420 05/19/2017 THER/PROPH/DIAG INJ SC/IM CPT-4: 85894 04/06/2017 VITAMIN B12 INJECTION CPT-4: J3420 04/06/2017 THER/PROPH/DIAG INJ SC/IM CPT-4: 97537 01/04/2017 VITAMIN B12 INJECTION CPT-4: J3420 01/04/2017 THER/PROPH/DIAG INJ SC/IM CPT-4: 59904 12/10/2016 VITAMIN B12 INJECTION CPT-4: J3420 12/10/2016 THER/PROPH/DIAG INJ SC/IM CPT-4: 04801 10/13/2016 TRIAMCINOLONE ACET INJ NOS CPT-4: J3301 10/13/2016 THER/PROPH/DIAG INJ SC/IM CPT-4: 83994 09/03/2016 VITAMIN B12 INJECTION CPT-4: J3420 09/03/2016 THER/PROPH/DIAG INJ SC/IM CPT-4: 44434 07/29/2016 VITAMIN B12 INJECTION CPT-4: J3420 07/29/2016 THER/PROPH/DIAG INJ SC/IM CPT-4: 22758 06/03/2016 VITAMIN B12 INJECTION CPT-4: J3420 06/03/2016 PNEUMOCOCCAL VACC [address]: 57059422 CPT-4: 93682 04/22/2016 ADMIN PNEUMOCOCCAL VACCINE SNOMED CT: 14022115 CPT-4: G0009 04/22/2016 VITAMIN B12 INJECTION CPT-4: J3420 09/15/2015 THER/PROPH/DIAG INJ SC/IM CPT-4: 53674 09/15/2015 THER/PROPH/DIAG INJ SC/IM CPT-4: 55209 09/08/2015 VITAMIN B12 INJECTION CPT-4: J3420 09/08/2015 THER/PROPH/DIAG INJ SC/IM CPT-4: 93876 09/01/2015 VITAMIN B12 INJECTION CPT-4: J3420 09/01/2015 THER/PROPH/DIAG INJ SC/IM CPT-4: 99300 08/25/2015 VITAMIN B12 INJECTION CPT-4: J3420 08/25/2015 Vital Signs Date Vital 05/22/2018 Blood Pressure 1: 148/72 Code : 8480-6 BMI: 41.6 Code : 75706-8 Heart Rate 1 : 82 bpm Height: 4'11" SpO2: 95% Weight: 206 lbs 05/15/2018 Blood Pressure 1: 140/80 Code : 8480-6 BMI: 41.6 Code : 06303-7 Heart Rate 1 : 86 bpm Height: 4'11" SpO2: 92% Weight: 206 lbs 01/12/2018 Blood Pressure 1: 140/78 Code : 8480-6 BMI: 42.2 Code : 84417-2 Heart Rate 1 : 73 bpm Height: 4'11" SpO2: 97% Weight: 209 lbs 11/25/2017 Blood Pressure 1: 140/68 Code : 8480-6 BMI: 42.2 Code : 62180-4 Heart Rate 1 : 76 bpm Height: 4'11" SpO2: 94% Weight: 209 lbs 09/15/2017 Blood Pressure 1: 146/67 Code : 8480-6 BMI: 42.2 Code : 21816-0 Heart Rate 1 : 69 bpm Height: 4'11" SpO2: 97% Weight: 209 lbs 08/17/2017 Blood Pressure 1: 144/70 Code : 8480-6 BMI: 41.8 Code : 79432-4 Heart Rate 1 : 63 bpm Height: 4'11" SpO2: 97% Weight: 207 lbs 07/19/2017 Blood Pressure 1: 142/74 Code : 8480-6 BMI: 41.4 Code : 98966-2 Heart Rate 1 : 71 bpm Height: 4'11" SpO2: 96% Weight: 205 lbs 05/19/2017 Blood Pressure 1: 148/76 Code : 8480-6 BMI: 42.8 Code : 72510-0 Heart Rate 1 : 72 bpm Height: 4'11" SpO2: 94% Weight: 212 lbs 02/15/2017 Blood Pressure 1: 154/70 Code : 8480-6 BMI: 42.5 Code : 54518-0 Heart Rate 1 : 68 bpm Height: 4'11" SpO2: 97% Weight: 210 lbs 8 11/16/2016 Blood Pressure 1: 142/78 Code : 8480-6 BMI: 41.6 Code : 61616-8 Heart Rate 1 : 68 bpm Height: 4'11" SpO2: 95% Temperature: 36.0 (C) / 96.8 (F) Weight: 206 lbs 08/19/2016 Blood Pressure 1: 120/74 Code : 8480-6 BMI: 41.6 Code : 42606-9 Heart Rate 1 : 75 bpm Height: 4'11" SpO2: 95% Weight: 206 lbs 07/15/2016 Blood Pressure 1: 140/76 Code : 8480-6 BMI: 42.0 Code : 88120-2 Heart Rate 1 : 76 bpm Height: 4'11" SpO2: 96% Weight: 208 lbs 06/03/2016 Blood Pressure 1: 130/78 Code : 8480-6 BMI: 42.8 Code : 81281-4 Heart Rate 1 : 72 bpm Height: 4'11" SpO2: 98% Weight: 212 lbs 04/22/2016 Blood Pressure 1: 142/84 Code : 8480-6 BMI: 41.8 Code : 97638-1 Heart Rate 1 : 86 bpm Height: 4'11" SpO2: 92% Weight: 207 lbs 01/22/2016 Blood Pressure 1: 162/64 Code : 8480-6 BMI: 41.2 Code : 00216-8 Heart Rate 1 : 70 bpm Height: 4'11" SpO2: 97% Weight: 204 lbs 10/23/2015 Blood Pressure 1: 130/70 Code : 8480-6 BMI: 40.4 Code : 76872-4 Heart Rate 1 : 72 bpm Height: 4'11" SpO2: 95% Weight: 200 lbs 09/12/2015 Blood Pressure 1: 142/62 Code : 8480-6 BMI: 39.4 Code : 20953-8 Heart Rate 1 : 63 bpm Height: 4'11" SpO2: 96% Weight: 195 lbs 08/05/2015 Blood Pressure 1: 144/60 Code : 8480-6 BMI: 41.0 Code : 53404-9 Heart Rate 1 : 92 bpm Height: 4'11" SpO2: 90% SpO2: 97% Weight: 203 lbs 04/03/2015 Blood Pressure 1: 142/68 Code : 8480-6 BMI: 40.6 Code : 01108-7 Heart Rate 1 : 77 bpm Height: 4'11" SpO2: 95% Weight: 201 lbs 01/30/2015 Blood Pressure 1: 150/72 Code : 8480-6 BMI: 40.2 Code : 29204-2 Heart Rate 1 : 64 bpm Height: 4'11" Weight: 199 lbs 01/02/2015 Blood Pressure 1: 136/72 Code : 8480-6 BMI: 39.8 Code : 51480-3 Heart Rate 1 : 68 bpm Height: [...] data Encounters Encounter Performer Location Codes Date ([id number]) [id number] EST. PATIENT, LEVEL IV Diagnosis: Type 2 diabetes mellitus with hyperglycemia[ICD10: E11.65] Diagnosis: Essential (primary) hypertension[ICD10: I10] Diagnosis: Hypothyroidism, unspecified[ICD10: E03.9] Giselle Knox MD, [facility] CPT-4: 71647 05/15/2018 ([id number]) 92342 EST. 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 CPT-4: 63855 01/12/2018 ([id number]) 98519 EST. PATIENT, LEVEL IV Diagnosis: Varicose veins of bilateral lower extremities with pain[ICD10: I83.813] Diagnosis: Low back pain[ICD10: M54.5] Diagnosis: Hypothyroidism, unspecified[ICD10: E03.9] Diagnosis: Type 2 diabetes mellitus with hyperglycemia[ICD10: E11.65] Giselle Knox MD, [facility] CPT-4: 73284 11/25/2017 37812 EST. PATIENT, LEVEL IV Diagnosis: Localized edema[ICD10: R60.0] Diagnosis: Vitamin B12 deficiency anemia due to intrinsic factor deficiency[ ICD10: D51.0] Chasity Knox MD, [facility] CPT-4: 89920 86150 EST. PATIENT, LEVEL IV Diagnosis: Essential (primary) hypertension[ICD10: I10] Diagnosis: Type 2 diabetes mellitus with hyperglycemia[ICD10: E11.65] Diagnosis: Vitamin B12 deficiency anemia due to intrinsic factor deficiency[ ICD10: D51.0] Chasity Knox MD, [facility] CPT-4: 36125 45269 EST. PATIENT, LEVEL IV Diagnosis: Type 2 diabetes mellitus with hyperglycemia[ICD10: E11.65] Diagnosis: Essential (primary) hypertension[ICD10: I10] Diagnosis: Vitamin B12 deficiency anemia due to intrinsic factor deficiency[ ICD10: D51.0] Chasity Knox MD, [facility] CPT-4: 96013 ([id number]) 61532 EST. PATIENT, LEVEL IV Diagnosis: Essential (primary) hypertension[ICD10: I10] Diagnosis: Type 2 diabetes mellitus with hyperglycemia[ICD10: E11.65] Diagnosis: Hypothyroidism, unspecified[ICD10: E03.9] Diagnosis: Vitamin B12 deficiency anemia due to intrinsic factor deficiency[ ICD10: D51.0] Diagnosis: Chronic kidney disease, stage 3 (moderate)[ICD10: N18.3] Giselle Knox MD , [facility] CPT-4: 47447 05/19/2017 ([id number]) 16513 EST. PATIENT, LEVEL IV Diagnosis: Essential (primary) hypertension[ICD10: I10] Diagnosis: Type 2 diabetes mellitus with hyperglycemia[ICD10: E11.65] Diagnosis: Hypothyroidism, unspecified[ICD10: E03.9] Giselle Knox MD, [facility] CPT-4: 11614 02/15/2017 [id number]) 40084 EST. PATIENT, LEVEL IV Diagnosis: Type 2 diabetes mellitus with hyperglycemia[ICD10: E11.65] Diagnosis: Cough[ICD10: R05] Diagnosis: Acute upper respiratory infection, unspecified[ICD10: J06.9] Diagnosis: Hypothyroidism, unspecified[ICD10: E03.9] Diagnosis: Chronic kidney disease, stage 3 (moderate)[ICD10: N18.3] Giselle Knox MD , [facility] CPT-4: 63480 11/16/2016 [id number]) 87984 EST. PATIENT, LEVEL IV Diagnosis: Type 2 diabetes mellitus with hyperglycemia[ICD10: E11.65] Diagnosis: Hypothyroidism, unspecified[ICD10: E03.9] Diagnosis: Essential (primary) hypertension[ICD10: I10] Giselle Knox MD, [facility] CPT-4: 24024 08/19/2016 [id number]) 40961 EST. PATIENT, LEVEL III Diagnosis: Type 2 diabetes mellitus with hyperglycemia[ICD10: E11.65] Giselle Knox MD, [facility] CPT-4: 86275 07/15/2016 [id number]) 00653 EST. PATIENT, LEVEL IV Diagnosis: Type 2 diabetes mellitus with hyperglycemia[ICD10: E11.65] Diagnosis: Atrophy of thyroid (acquired)[ICD10: E03.4] Diagnosis: Vitamin B12 deficiency anemia due to intrinsic factor deficiency[ ICD10: D51.0] Diagnosis: Chronic kidney disease, stage 3 (moderate)[ICD10: N18.3] Diagnosis: Essential (primary) hypertension[ICD10: I10] Jennifer Knox MD, [facility] CPT-4: 38074 06/03/2016 ([id number]) 63728 EST. PATIENT, LEVEL III Diagnosis: Type 2 diabetes mellitus with hyperglycemia[ICD10: E11.65] Diagnosis: Essential (primary) hypertension[ICD10: I10] Diagnosis: Chronic kidney disease, stage 3 (moderate)[ICD10: N18.3] Diagnosis: VACCIN STREP PNEUMONIAE[ICD10: Z23] Giselle Knox MD, [facility] CPT-4: 50153 04/22/2016 51744 EST. PATIENT, LEVEL IV Diagnosis: Type 2 diabetes mellitus with hyperglycemia[ICD10: E11.65] Diagnosis: Essential (primary) hypertension[ICD10: I10] Chasity Knox MD, [facility] CPT-4: 43572 01/22/2016 ([id number]) 71605 EST. PATIENT, LEVEL III Diagnosis: Type 2 diabetes mellitus with hyperglycemia[ICD10: E11.65] Diagnosis: Essential (primary) hypertension[ICD10: I10] Giselle Knox MD, [facility] CPT-4: 88712 10/23/2015 55628 EST. PATIENT, LEVEL IV Diagnosis: Type 2 diabetes mellitus with hyperglycemia[ICD10: E11.65] Diagnosis: Vitamin B12 deficiency anemia due to intrinsic factor deficiency[ ICD10: D51.0] Diagnosis: Essential (primary) hypertension[ICD10: I10] Chasity Knox MD, [facility] CPT-4: 88561 09/12/2015 ([id number]) 11306 EST. PATIENT, LEVEL IV Diagnosis: Essential (primary) hypertension[ICD10: I10] Diagnosis: Type 2 diabetes mellitus with hyperglycemia[ICD10: E11.65] Diagnosis: Hypothyroidism, unspecified[ICD10: E03.9] Giselle Knox MD, [facility] CPT-4: 80046 08/05/2015 ([id number]) 26174 EST. PATIENT, LEVEL III Diagnosis: ESSENTIAL HYPERTENSION[ICD9: 401.9] Diagnosis: DIABETES TYPE II[ICD9: 250.00] Jennifer Knox MD, [facility] CPT- 4: 17216 04/03/2015 ([id number]) 46545 EST. PATIENT, LEVEL IV Diagnosis: ESSENTIAL HYPERTENSION[ICD9: 401.9] Diagnosis: DIABETES TYPE II[ICD9: 250.00] Diagnosis: Hypothyroidism[ICD9: 244.9] [facility] CPT-4: 55795 01/30/2015 ([id number]) OFFICE VISIT, NEW - LEVEL 4 Diagnosis: ESSENTIAL HYPERTENSION[ICD9: 401.9] Diagnosis: DIABETES TYPE II[ICD9: 250.00] Diagnosis: Impacted cerumen[ICD9: 380.4] [facility] CPT- 4: 20541 01/02/2015 Plan of Care Planned Activity Notes Codes Status Date Visit Plan: DM-here for IPRO placement in order to get a full picture of blood sugar readings in attempt to identify trends in blood sugars so we can better manage her medications. Return in 1 week for removal of IPRO. 05/22/2018 Appointment: Giselle Mccoy WPtel: [facility] [phone] (30 min) Complex 05/22/2018 Patient Education: Patient [...] control. 05/15/2018 Appointment[phone] [phone] (15 min) Moderate 05/15/2018 Patient [...] PT 01/12/2018 Appointment: [facility] [phone] [phone] [place] (30 min) Complex 01/12/2018 Patient Education: Patient Medication Summary Completed 01/12/2018 Care Plan: Referral Order SNOMED-CT : [id number] Pending 01/12/2018 Visit Plan: Varicose veins-rx for compression stockings provided and instructed on use Low back pain-recommend xray lumbar spine Hypothyroidism-check labs DM-check Hgb A1c 11/25/2017 Appointment: [facility] [phone] [phone] [place] (30 min) Complex 11/25/2017 Patient Education: Patient Medication Summary Completed 11/25/2017 Care Plan: X-RAY EXAM L-S SPINE 2/3 VWS LOINC : 50115-7 Pending 11/25/2017 Visit Plan: Edema - Left [...] acute changes or concerns. 09/15/2017 App[phone] [phone] ([facility] min) Complex 09/15/2017 Patient [...] greater blood glucose control. 08/17/2017 Appointment: Chasity Caldwelltel: [phone] [facility] (15 min) Moderate 08/17/2017 Patient Education: Patient [...] at home. 07/19/2017 Appointment: Chasity Caldwell WPtel[facility] (15 min) Moderate 07/19/2017 Patient Education: Patient Medication Summary Completed 07/19/2017 [facility]ment: [facility] [phone] [facility] (15 min) Moderate 06/13/2017 Visit Plan: Hypertension [...] to medications. 05/19/2017 Appointment: [facility] [phone] [phone] [place] (30 min) Complex 05/19/2017 [...] control. 02/15/2017 Appointment: Giselle Mccoy WPtel: [phone] [phone] (15 min) Moderate 02/15/2017 Patient Education: Patient [...] today 11/16/2016 Appointment: Giselle Mccoy WPtel: [phone] [phone] (15 min) Moderate 11/16/2016 Patient Education: Patient [...] control. 08/19/2016 App[facility]ment: [phone] [phone] (15 min) Moderate 08/19/2016 Patient Education: Patient Medication Summary Completed 08/19/2016 Patient Education: Obesity Completed 08/19/2016 Care Plan: Tsh Cancelled 08/19/2016 Care Plan: %Hba1C LOINC : 01409-8 Cancelled 08/19/2016 Care Plan: Lipid Cancelled 08/19/2016 Care Plan: Free T4 patient coming back next week Cancelled 08/19/2016 Appointment: Injection 07/29/2016 Patient Education: Patient Medication Summary Completed 07/29/2016 App[facility]ment: [facility] [phone] [phone] (30 min) Complex 07/22/2016 Visit Plan: Diabetes-having hypoglycemia in the mornings- insulin adjusted-patient and verbalized understanding of plan. Follow up in 1 month-call sooner if still having low blood sugars. Sinus congestion- start claritin 07/15/2016 Appointment: Castro Mccoyie WPtel: [phone] [phone] (30 min) Complex 07/15/2016 Patient Education: [...] control. 06/03/2016 Appointment: [facility] [phone] [facility] (15 min) Moderate 06/03/2016 Patient Education: Patient [...] 1 MONTH 04/22/2016 Appointment: Giselle Mccoy WPtel: [phone] (15 min) Moderate 04/22/2016 Patient [...] 01/02/2015 Appointment: [facility] Knox [facility]el[facility] [phone] [facility] [place] (S) New Patient 01/02/2015 Patient Education: [...] readings are starting to become less controlled. RETURN TUESDAY FOR REMOVAL IF DEVICE . DM-here for IPRO placement in order to get a full picture of blood sugar readings in attempt to identify trends in blood sugars so we can better manage her medications. Return in 1 week for removal of IPRO. zpack anti histamine such as zyrtec daily [...] of control. Chronic renal disease-check labs today COME BACK NEXT WEEK FASTING . Diabetes [...] based on previous levels of control. . Diabetes Mellitus - Uncontrolled - per [...] based on previous levels of control. Increase 70/30 insulin to 16 units, keep [...] change in blood pressure readings at home. decrease terazosin to 1/2 pill daily use [...] a month and flush ears if needed. EAT A PROTEIN SNACK BEFORE BED CHECK [...] Dr Pike/Dr Lozada for evaluation-recommend PT . Edema - Left greater than right [...]
--- OUTSIDE RECORDS SUMMARY | 2018-06-17 10:36 | XMS REPORT | CCD ---
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 Role Phone PP Unavailable CCM Unavailable Summary Purpose Interface Exchange Insurance Providers Payer name Policy type / Coverage type Covered republican ID Effective Begin Date Effective End Date [facility] Commercial Insurance [id number] Unknown Family history Runs in the family [...] U-100 Insulin 100 unit/mL subcutaneous suspension RxNorm: 629799 18 Unit(s) SQ QAM 05/15/2018 No Stop Date Active levothyroxine 100 mcg tablet RxNorm: 111285 1 Tablet(s) PO daily 05/11/2018 09/07/2018 Active carvedilol 12.5 mg tablet RxNorm: 828457 TAKE ONE TABLET BY MOUTH TWICE A DAY 05/05/2018 07/28/2019 Active losartan 100 mg tablet RxNorm: 387229 TAKE ONE TABLET BY MOUTH DAILY 03/24/2018 06/10/2020 Active terazosin 2 mg capsule RxNorm: 244647 TAKE ONE CAPSULE BY MOUTH DAILY 03/07/2018 03/01/2019 Active Lantus Solostar U-100 Insulin 100 unit/mL (3 mL) subcutaneous pen RxNorm: 859240 Unit(s) INJECT 24 UNITS UNDER THE SKIN EVERY NIGHT AT BEDTIME 01/12/2018 No Stop Date Active cyanocobalamin (vit B-12) 1,000 mcg/mL injection solution RxNorm: 010522 1 Milliliter(s) Inj 01/12/2018 01/12/2018 Inactive Humulin 70/30 U-100 Insulin 100 unit/mL subcutaneous suspension RxNorm: 570587 INJECT 18 UNITS UNDER THE SKIN EVERY MORNING 11/14/2017 03/05/2018 Inactive carvedilol 12.5 mg tablet RxNorm: 934853 TAKE ONE TABLET BY MOUTH TWICE A DAY 11/07/2017 05/04/2018 Inactive cyanocobalamin (vit B-12) 1,000 mcg/mL injection solution RxNorm: 363931 Milliliter(s) Inj 09/15/2017 09/15/2017 Inactive terazosin 2 mg capsule RxNorm: 480165 Capsule(s) TAKE ONE CAPSULE BY MOUTH DAILY 09/07/2017 03/05/2018 Inactive Lantus Solostar 100 unit/mL (3 mL) subcutaneous insulin pen RxNorm: 992781 INJECT 35 UNITS UNDER THE SKIN EVERY NIGHT AT BEDTIME 201701/11/2018 Inactive One Touch Test strips RxNorm: 1 test Miscellaneous BID 201708/16/2018 Active Contour Test Strips RxNorm: TEST BLOOD SUGAR TWO TIMES A DAY E11.65 08/22/2017 02/22/2019 Active Tamiflu 75 mg capsule RxNorm: 142696 1 Capsule(s) PO daily 08/1708/16/2017 Inactive Tamiflu 75 mg capsule RxNorm: 487971 1 Capsule(s) PO daily 08/1708/26/2017 Inactive cyanocobalamin (vit B-12) 1,000 mcg/mL injection solution RxNorm: 411304 1 Milliliter(s) Inj 08/17/2017 08/17/2017 Inactive carvedilol 12.5 mg tablet RxNorm: 111665 TAKE ONE TABLET BY MOUTH TWICE A DAY 08/10/2017 11/06/2017 Inactive cyanocobalamin (vit B-12) 1,000 mcg/mL injection solution RxNorm: 999967 1 Milliliter(s) Inj 07/19/2017 07/19/2017 Inactive Humulin 70/30 100 unit/mL subcutaneous suspension RxNorm: 173943 14 Unit(s) SQ QAM 07/06/2017 05/14/2018 Inactive Lantus Solostar 100 unit/mL (3 mL) subcutaneous insulin pen RxNorm: 449532 26 Unit(s) SQ QHS 07/06/2017 08/28/2017 Inactive losartan 100 mg tablet RxNorm: 352159 TAKE ONE TABLET BY MOUTH DAILY 06/07/2017 03/23/2018 Inactive Lantus Solostar 100 unit/mL (3 mL) subcutaneous insulin pen RxNorm: 247268 28 Unit(s) SQ QHS 05/19/2017 07/05/2017 Inactive cyanocobalamin (vit B-12) 1,000 mcg/mL injection solution RxNorm: 153500 1 Milliliter(s) Inj 05/19/2017 05/19/2017 Inactive terazosin 2 mg capsule RxNorm: 356401 TAKE ONE CAPSULE BY MOUTH DAILY 05/16/2017 09/06/2017 Inactive cyanocobalamin (vit B-12) 1,000 mcg/mL injection solution RxNorm: 867622 1 Milliliter(s) Inj 04/06/2017 04/06/2017 Inactive cyanocobalamin (vit B-12) 1,000 mcg/mL injection solution RxNorm: 741965 Milliliter(s) Inj 01/04/2017 01/04/2017 Inactive Humulin 70/30 U-100 Insulin 100 unit/mL subcutaneous suspension RxNorm: 268847 18 Unit(s) SQ QAM 12/22/20162016 Inactive cyanocobalamin (vit B-12) 1,000 mcg/mL injection solution RxNorm: 182843 1 Milliliter(s) Inj 12/10/2016 12/10/2016 Inactive Zithromax Z-Jose 250 mg tablet RxNorm: 628456 1 Tablet(s) PO UD 11/16/2016 11/20/2016 Inactive terazosin 2 mg capsule RxNorm: 015509 TAKE ONE CAPSULE BY MOUTH DAILY 11/08/2016 05/06/2017 Inactive Lantus Solostar 100 unit/mL (3 mL) subcutaneous insulin pen RxNorm: 605932 INJECT 35 UNITS UNDER THE SKIN EVERY NIGHT AT BEDTIME 201607/18/2017 Inactive cyanocobalamin (vit B-12) 1,000 mcg/mL injection solution RxNorm: 799167 Milliliter(s) Inj 10/13/2016 10/13/2016 Inactive cyanocobalamin (vit B-12) 1,000 mcg/mL injection solution RxNorm: 152771 1 Milliliter(s) Inj 09/03/2016 09/03/2016 Inactive Contour Test Strips RxNorm: TEST BLOOD SUGAR TWO TIMES A DAY E11.65 08/19/2016 08/21/2017 Inactive carvedilol 12.5 mg tablet RxNorm: 992027 TAKE ONE TABLET BY MOUTH TWICE A DAY 08/05/2016 01/01/2017 Inactive carvedilol 12.5 mg tablet RxNorm: 174947 TAKE ONE TABLET BY MOUTH TWICE A DAY 08/05/2016 01/01/2017 Inactive carvedilol 12.5 mg tablet RxNorm: 602350 1 Tablet(s) PO BID 05/201701/30/2017 Inactive cyanocobalamin (vit B-12) 1,000 mcg/mL injection solution RxNorm: 358771 Milliliter(s) Inj 07/29/2016 07/29/2016 Inactive Lantus Solostar 100 unit/mL (3 mL) subcutaneous insulin pen RxNorm: 856173 30 Unit(s) SQ QHS 07/15/2016 05/18/2017 Inactive Humulin 70/30 100 unit/mL subcutaneous suspension RxNorm: 669024 18 Unit(s) SQ QAM 07/15/2016 12/21/2016 Inactive losartan 100 mg tablet RxNorm: 288989 TAKE ONE TABLET BY MOUTH DAILY 07/08/2016 06/02/2017 Inactive terazosin 2 mg capsule RxNorm: 306470 TAKE ONE CAPSULE BY MOUTH DAILY 06/10/2016 11/06/2016 Inactive cyanocobalamin (vit B-12) 1,000 mcg/mL injection solution RxNorm: 711533 1 Milliliter(s) Inj 06/03/2016 06/03/2016 Inactive Humulin 70/30 100 unit/mL subcutaneous suspension RxNorm: 462739 Unit(s) INJECT 10 UNITS UNDER THE SKIN 06/01/20162015 Inactive Request already responded to by other means (e.g. phone or fax) Humulin 70/30 100 unit/mL subcutaneous suspension RxNorm: 690903 INJECT 10 UNITS UNDER THE SKIN BEFORE MEALS 06/01/201601/2016 Inactive Request already responded to by other means (e.g. phone or fax) Lantus Solostar 100 unit/mL (3 mL) subcutaneous insulin pen RxNorm: 769853 35 Unit(s) SQ QHS 05/26/2016 07/14/2016 Inactive Humulin 70/30 100 unit/mL subcutaneous suspension RxNorm: 379106 10 Unit(s) SQ QAM 05/24/2016 10/02/2016 Inactive Humulin 70/30 100 unit/mL subcutaneous suspension RxNorm: 287365 21 Unit(s) SQ QAM 05/24/2016 05/23/2016 Inactive Lantus Solostar 100 unit/mL (3 mL) subcutaneous insulin pen RxNorm: 368243 32 Unit(s) SQ QHS 04/22/2016 05/25/2016 Inactive Humulin 70/30 100 unit/mL subcutaneous suspension RxNorm: 889993 21 Unit(s) SQ QAM 04/22/2016 05/24/2016 Inactive with breakfast hydrochlorothiazide 25 mg tablet RxNorm: 803861 TAKE ONE TABLET BY MOUTH DAILY 02/04/2016 02/16/2016 Inactive terazosin 2 mg capsule RxNorm: 451414 Capsule(s) TAKE ONE CAPSULE BY MOUTH DAILY. 12/01/2015 05/28/2016 Inactive Humulin 70/30 100 unit/mL subcutaneous suspension RxNorm: 297580 INJECT 10 UNITS UNDER THE SKIN BEFORE MEALS 11/06/2015 Inactive hydrochlorothiazide 25 mg tablet RxNorm: 726907 1 Tablet(s) PO daily 10/06/2015 02/02/2016 Inactive cyanocobalamin (vit B-12) 1,000 mcg/mL injection solution RxNorm: 995563 Milliliter(s) Inj 09/15/2015 09/15/2015 Inactive Humulin 70/30 100 unit/mL subcutaneous suspension RxNorm: 179346 INJECT 10 UNITS UNDER THE SKIN BEFORE MEALS 09/08/2015 Inactive cyanocobalamin (vit B-12) 1,000 mcg/mL injection solution RxNorm: 136879 Milliliter(s) Inj 09/08/2015 09/08/2015 Inactive terazosin 2 mg capsule RxNorm: 843992 TAKE ONE CAPSULE BY MOUTH DAILY. DISCONTINUE 5 MG CAPSULES 09/01/201511/28 Inactive cyanocobalamin (vit B-12) 1,000 mcg/mL injection solution RxNorm: 003594 Milliliter(s) Inj 09/01/2015 09/01/2015 Inactive cyanocobalamin (vit B-12) 1,000 mcg/mL injection solution RxNorm: 549998 Milliliter(s) Inj 08/25/2015 08/25/2015 Inactive levothyroxine 112 mcg tablet RxNorm: 856902 1 Tablet(s) PO daily 08/06/2015 02/14/2017 Inactive Lantus Solostar 100 unit/mL (3 mL) subcutaneous insulin pen RxNorm: 414405 35 Unit(s) SQ QHS 08/06/2015 04/21/2016 Inactive Humulin 70/30 100 unit/mL subcutaneous suspension RxNorm: 521401 20 Unit(s) SQ AC 08/05/2015 04/21/2016 Inactive with breakfast carvedilol 12.5 mg tablet RxNorm: 941459 1 Tablet(s) PO BID 06/201601/31/2016 Inactive Humulin 70/30 100 unit/mL subcutaneous suspension RxNorm: 165643 10 Unit(s) SQ AC 07/22/2015 08/04/2015 Inactive losartan 100 mg tablet RxNorm: 745222 TAKE ONE TABLET BY MOUTH DAILY 06/25/2015 06/18/2016 Inactive Lantus Solostar 100 unit/mL (3 mL) subcutaneous insulin pen RxNorm: 209630 30 Unit(s) SQ QHS 06/18/2015 08/05/2015 Inactive terazosin 2 mg capsule RxNorm: 330230 1 Capsule(s) PO daily 08/11/2015 Inactive DC the 5mg order terazosin 2 mg capsule RxNorm: 248022 1 Capsule(s) PO daily 04/13/2015 Inactive Synthroid 25 mcg tablet RxNorm: 721104 1 Tablet(s) PO daily 02/14/2017 Inactive Synthroid 25 mcg tablet RxNorm: 505602 1 Tablet(s) PO daily 04/10/2015 Inactive Lantus Solostar 100 unit/mL (3 mL) subcutaneous insulin pen RxNorm: 854595 30 Unit(s) SQ QHS 04/04/2015 06/17/2015 Inactive terazosin 5 mg tablet RxNorm: 822841 1 Tablet(s) PO daily 201404/13/2015 Inactive Lantus Solostar 100 unit/mL (3 mL) subcutaneous insulin pen RxNorm: 542467 25 Unit(s) SQ QHS 01/08/2015 04/03/2015 Inactive carvedilol 25 mg tablet RxNorm: 268177 1 Tablet(s) PO BID 01/0201/31/2015 Inactive terazosin 5 mg tablet RxNorm: 016488 1 Tablet(s) PO daily 201401/01/2015 Inactive levothyroxine 125 mcg tablet RxNorm: 835003 1 Tablet(s) PO daily 01/02/2015 01/31/2015 Inactive terazosin 5 mg tablet RxNorm: 366702 1/2 Tablet(s) PO daily 05/201501/31/2015 Inactive losartan 100 mg tablet RxNorm: 094531 1 Tablet(s) PO daily 08/201404/22/2015 Inactive losartan 100 mg tablet RxNorm: 895519 1 Tablet(s) PO daily 08/201412/23/2014 Inactive Contour Test Strips RxNorm: Miscellaneous test blood sugars BID 12/06/2014 12/05/2014 Inactive dx 250.00 Contour Test Strips RxNorm: Miscellaneous test blood sugars BID or UD 12/06/2014 06/23/2015 Inactive dx 250.00 [SAVINGS FOR NON-COVERED DRUGS -- BIN:[id number], PCN: [id number], Group: [id number], ID# [id number], Questions: . THIS IS NOT INSURANCE.] folic acid 1 mg tablet RxNorm: 130903 1 Tablet(s) PO QHS No Start Date Active Microlet Lancet RxNorm : Miscellaneous Test BID or Ud No Start Date Active 250.0 aspirin 81 mg tablet,delayed release RxNorm: 854106 1 Tablet(s) PO daily No Start Date Active Stool Softener 100 mg capsule RxNorm: 8968285 1 Capsule(s) PO every other day No Start Date Active folic acid oral RxNorm : 4511 oral No Start Date 05/19/2017 Inactive cyanocobalamin (vit B-12) 100 mcg tablet RxNorm: 939072 1 Tablet(s) PO daily No Start Date 02/14/2017 Inactive hydrochlorothiazide 25 mg tablet RxNorm: 628697 1 Tablet(s) PO daily No Start Date 10/05/2015 Inactive Stool Softener 100 mg capsule RxNorm: 5741382 1 Capsule(s) PO daily No Start Date 05/18/2017 Inactive Humulin 70/30 100 unit/mL subcutaneous suspension RxNorm: 509397 20 Unit(s) SQ QAM No Start Date 07/21/2015 Inactive levothyroxine 100 mcg tablet RxNorm: 611185 1 Tablet(s) PO daily No Start Date 05/10/2018 Inactive Lantus Solostar 100 unit/mL (3 mL) subcutaneous insulin pen RxNorm: 746140 20 Unit(s) SQ QHS No Start Date 01/07/2015 Inactive ferrous sulfate 325 mg (65 mg iron) tablet RxNorm: 100431 1 Tablet(s) PO daily No Start Date 05/18/2017 Inactive Medication Administered Medication Codes Instructions Start Date Status cyanocobalamin (vit B-12) 1,000 mcg/mL injection solution RxNorm: 996666 1Milliliter 01/12/2018 No longer Active cyanocobalamin (vit B-12) 1,000 mcg/mL injection solution RxNorm: 151602 Milliliter 09/15/2017 No longer Active cyanocobalamin (vit B-12) 1,000 mcg/mL injection solution RxNorm: 395129 1Milliliter 08/17/2017 No longer Active cyanocobalamin (vit B-12) 1,000 mcg/mL injection solution RxNorm: 619152 1Milliliter 07/19/2017 No longer Active cyanocobalamin (vit B-12) 1,000 mcg/mL injection solution RxNorm: 262477 1Milliliter 05/19/2017 No longer Active cyanocobalamin (vit B-12) 1,000 mcg/mL injection solution RxNorm: 065998 1Milliliter 04/06/2017 No longer Active cyanocobalamin (vit B-12) 1,000 mcg/mL injection solution RxNorm: 670889 Milliliter 01/04/2017 No longer Active cyanocobalamin (vit B-12) 1,000 mcg/mL injection solution RxNorm: 712556 1Milliliter 12/10/2016 No longer Active cyanocobalamin (vit B-12) 1,000 mcg/mL injection solution RxNorm: 370351 Milliliter 10/13/2016 No longer Active cyanocobalamin (vit B-12) 1,000 mcg/mL injection solution RxNorm: 334620 1Milliliter 09/03/2016 No longer Active cyanocobalamin (vit B-12) 1,000 mcg/mL injection solution RxNorm: 518431 Milliliter 07/29/2016 No longer Active cyanocobalamin (vit B-12) 1,000 mcg/mL injection solution RxNorm: 278853 1Milliliter 06/03/2016 No longer Active cyanocobalamin (vit B-12) 1,000 mcg/mL injection solution RxNorm: 871514 Milliliter 09/15/2015 No longer Active cyanocobalamin (vit B-12) 1,000 mcg/mL injection solution RxNorm: 591909 Milliliter 09/08/2015 No longer Active cyanocobalamin (vit B-12) 1,000 mcg/mL injection solution RxNorm: 454652 Milliliter 09/01/2015 No longer Active cyanocobalamin (vit B-12) 1,000 mcg/mL injection solution RxNorm: 013173 Milliliter 08/25/2015 No longer Active Immunizations Vaccine [...] Item Item Code Result Date Free T4 [id number] FREE T4 1.21 ng/dL 05/15/2018 Tsh Ord6 TSH (3rd IS) 0.97 uIU/mL 05/15/2018 Comp Metabolic Lgd019 NA 142 mEq/L 05/15/2018 Comp Metabolic Pym293 K 4.0 mEq/L 05/15/2018 Comp Metabolic Mxc417 CL 107 mEq/L 05/15/2018 Comp Metabolic Afd075 CO2 28.0 mEq/L 05/15/2018 Comp Metabolic Bdx746 ANION GAP 11 05/15/2018 Comp Metabolic Mnj964 GLUCOSE 211 mg/dL 05/15/2018 Comp Metabolic Dyc143 Creat 0.9 mg/dL 05/15/2018 Comp Metabolic Vro994 eGFR 61 ml/min/1.73m2 05/15/2018 Comp Metabolic Std067 BUN 21 mg/dL 05/15/2018 Comp Metabolic Ept228 B/C Ratio 22.6 Ratio 05/15/2018 Comp Metabolic Cyl913 CALCIUM 9.1 mg/dL 05/15/2018 Comp Metabolic Biv332 ALK PHOS 85 U/L 05/15/2018 Comp Metabolic Qon722 AST(SGOT) 36 U/L 05/15/2018 Comp Metabolic Amf846 ALT(SGPT) 19 U/L 05/15/2018 Comp Metabolic Jes050 BILI T 0.6 mg/dL 05/15/2018 Comp Metabolic Byg952 ALBUMIN 3.8 g/dL 05/15/2018 Comp Metabolic Cxz018 TPRO 6.2 g/dL 05/15/2018 Comp Metabolic Sat625 GLOB 2.4 g/dL 05/15/2018 Comp Metabolic Jty276 A/G Ratio 1.6 Ratio 05/15/2018 Comp Metabolic Tgo988 Osmo 292 mOsmo 05/15/2018 %Hba1C Zjw073 % HbA1c 21815-6 7.8 % 05/15/2018 %Hba1C Akq028 Gluc Ave 177 mg/dL 05/15/2018 Comp Metabolic Hfy315 NA 139 mEq/L 11/28/2017 Comp Metabolic Nrc352 K 4.1 mEq/L 11/28/2017 Comp Metabolic Ops544 CL 105 mEq/L 11/28/2017 Comp Metabolic Bph718 CO2 26.0 mEq/L 11/28/2017 Comp Metabolic Kcl507 ANION GAP 12 11/28/2017 Comp Metabolic Bku693 GLUCOSE 132 mg/dL 11/28/2017 Comp Metabolic Xsm571 Creat 0.9 mg/dL 11/28/2017 Comp Metabolic Ixb887 eGFR 66 ml/min/1.73m2 11/28/2017 Comp Metabolic Ngq423 BUN 17 mg/dL 11/28/2017 Comp Metabolic Gwl671 B/C Ratio 19.5 Ratio 11/28/2017 Comp Metabolic Zfo902 CALCIUM 9.1 mg/dL 11/28/2017 Comp Metabolic Wfx933 ALK PHOS 78 U/L 11/28/2017 Comp Metabolic Wqz932 AST(SGOT) 35 U/L 11/28/2017 Comp Metabolic Yih774 ALT(SGPT) 17 U/L 11/28/2017 Comp Metabolic Ken370 BILI T 0.6 mg/dL 11/28/2017 Comp Metabolic Cbl543 ALBUMIN 3.9 g/dL 11/28/2017 Comp Metabolic Sxv919 TPRO 6.4 g/dL 11/28/2017 Comp Metabolic Psb417 GLOB 2.5 g/dL 11/28/2017 Comp Metabolic Kso903 A/G Ratio 1.6 Ratio 11/28/2017 Comp Metabolic Jti344 Osmo 281 mOsmo 11/28/2017 Tsh Ord6 TSH (3rd IS) 1.14 uIU/mL 11/28/2017 Free T4 Ari440 FREE T4 1.05 ng/dL 11/28/2017 %Hba1C Wqz130 % HbA1c 62349-3 7.7 % 11/25/2017 %Hba1C Rbb037 Gluc Ave 174 mg/dL 11/25/2017 Cbc With [...] 39.8 % 11/25/2017 Cbc With Differential Ord2 [place]% 10.2 % 11/25/2017 Cbc With Differential Ord2 [...] 2.56 K/ul 11/25/2017 Cbc With Differential Ord2 [place] ABS# 0.7 K/ul 11/25/2017 Cbc With Differential [...] 20.4 % 05/19/2017 Cbc With Differential Ord2 [place]% 6.8 % 05/19/2017 Cbc With Differential Ord2 [...] 1.64 K/ul 05/19/2017 Cbc With Differential Ord2 [place] ABS# 0.6 K/ul 05/19/2017 Cbc With Differential Ord2 Eos ABS# 0.2 K/ul 05/19/2017 Cbc With Differential Ord2 Baso ABS# 0.0 K/ul 05/19/2017 B12 Xls941 B12 >1500.00 pg/ml 05/19/2017 Free T4 Lyr557 FREE T4 1.10 ng/dL 05/19/2017 %Hba1C Req658 % HbA1c 53063-0 6.8 % 05/19/2017 %Hba1C Xzz893 Gluc Ave 148 mg/dL 05/19/2017 Tsh Ord6 hTSH II 1.73 uIU/mL 05/19/2017 Comp Metabolic Zyt058 NA 140 mEq/L 05/19/2017 Comp Metabolic Qdl860 K 3.8 mEq/L 05/19/2017 Comp Metabolic Ypt178 CL 108 mEq/L 05/19/2017 Comp Metabolic Tel409 CO2 21.0 mEq/L 05/19/2017 Comp Metabolic Xxw662 ANION GAP 15 05/19/2017 Comp Metabolic Qan439 GLUCOSE 207 mg/dL 05/19/2017 Comp Metabolic Mjy399 Creat 1.0 mg/dL 05/19/2017 Comp Metabolic Yby436 eGFR 55 ml/min/1.73m2 05/19/2017 Comp Metabolic Tci818 BUN 21 mg/dL 05/19/2017 Comp Metabolic Vsk010 B/C Ratio 20.4 Ratio 05/19/2017 Comp Metabolic Sga286 CALCIUM 9.1 mg/dL 05/19/2017 Comp Metabolic Jhk111 ALK PHOS 74 U/L 05/19/2017 Comp Metabolic Ehf924 AST(SGOT) 32 U/L 05/19/2017 Comp Metabolic Vlu772 ALT(SGPT) 15 U/L 05/19/2017 Comp Metabolic Omy907 BILI T 0.6 mg/dL 05/19/2017 Comp Metabolic Gai659 ALBUMIN 3.9 g/dL 05/19/2017 Comp Metabolic Fxb269 TPRO 6.2 g/dL 05/19/2017 Comp Metabolic Tol093 GLOB 2.3 g/dL 05/19/2017 Comp Metabolic Qdw417 A/G Ratio 1.6 Ratio 05/19/2017 Comp Metabolic Yao937 Osmo 288 mOsmo 05/19/2017 Cbc With Differential [...] 29.3 pg 12/10/2016 Cbc With Differential Ord2 [place]% 7.1 % 12/10/2016 Cbc With Differential Ord2 [...] 2.50 K/ul 12/10/2016 Cbc With Differential Ord2 [place] ABS# 0.5 K/ul 12/10/2016 Cbc With Differential Ord2 Eos ABS# 0.1 K/ul 12/10/2016 Cbc With Differential Ord2 Baso ABS# 0.0 K/ul 12/10/2016 B12 Pqj066 B12 222.00 pg/ml 12/10/2016 %Hba1C Dew441 % HbA1c 73205-4 7.5 % 11/16/2016 %Hba1C Axh281 Gluc Ave 169 mg/dL 11/16/2016 Free T4 Hcy482 FREE T4 1.03 ng/dL 11/16/2016 Comp Metabolic Gpp248 NA 138 mEq/L 11/16/2016 Comp Metabolic Gxx947 K 3.8 mEq/L 11/16/2016 Comp Metabolic Ibe594 CL 103 mEq/L 11/16/2016 Comp Metabolic Hyw103 CO2 26.0 mEq/L 11/16/2016 Comp Metabolic Wdx853 ANION GAP 13 11/16/2016 Comp Metabolic Vaw395 GLUCOSE 235 mg/dL 11/16/2016 Comp Metabolic Fny936 Creat 0.9 mg/dL 11/16/2016 Comp Metabolic Zyr879 eGFR 62 ml/min/1.73m2 11/16/2016 Comp Metabolic Rsk295 BUN 20 mg/dL 11/16/2016 Comp Metabolic Bta708 B/C Ratio 21.7 Ratio 11/16/2016 Comp Metabolic Wlr171 CALCIUM 8.9 mg/dL 11/16/2016 Comp Metabolic Jro260 ALK PHOS 75 U/L 11/16/2016 Comp Metabolic Osn845 AST(SGOT) 30 U/L 11/16/2016 Comp Metabolic Zyc821 ALT(SGPT) 13 U/L 11/16/2016 Comp Metabolic Xik903 BILI T 0.6 mg/dL 11/16/2016 Comp Metabolic Cyz497 ALBUMIN 3.8 g/dL 11/16/2016 Comp Metabolic Wum009 TPRO 6.8 g/dL 11/16/2016 Comp Metabolic Cgd297 GLOB 3.1 g/dL 11/16/2016 Comp Metabolic Nwz050 A/G Ratio 1.2 Ratio 11/16/2016 Comp Metabolic Fxv065 Osmo 286 mOsmo 11/16/2016 Tsh Ord6 hTSH II 2.50 uIU/mL 11/16/2016 Tsh Ord6 hTSH II 3.18 uIU/mL 05/21/2016 Lipid Ord30 CHOL 212 mg/dL 05/21/2016 Lipid Ord30 HDL 43.0 mg/dl 05/21/2016 Lipid Ord30 TRIG 164 mg/dL 05/21/2016 Lipid Ord30 LDL 136 mg/dL 05/21/2016 Lipid Ord30 C/HDL 4.9 Ratio 05/21/2016 B12 Yfr854 B12 159.00 pg/ml 05/21/2016 %Hba1C Flk568 % HbA1c 54316-8 7.5 % 05/21/2016 %Hba1C Ejl870 Gluc Ave 169 mg/dL 05/21/2016 Folate Ord36 Folate >23.80 ng/mL 05/21/2016 Free T4 Zjm951 FREE T4 1.03 ng/dL 05/21/2016 CHEM 14 2819481 AST 33 U/L 03/15/2016 CHEM 14 4177774 ALT 13 U/L 03/15/2016 CHEM 14 0617812 BUN 18 mg/dL 03/15/2016 CHEM 14 7024531 ALBUMIN 3.9 g/dL 03/15/2016 CHEM 14 4985012 CHLORIDE 105 mmol/L 03/15/2016 CHEM 14 8747212 Bili Total 0.4 mg/dL 03/15/2016 CHEM 14 3498938 ALK PHOS 60 U/L 03/15/2016 CHEM 14 3187275 SODIUM 138 mmol/L 03/15/2016 CHEM 14 4209649 CREATININE 0.99 mg/dL 03/15/2016 CHEM 14 3836169 CALCIUM 9.4 mg/dL 03/15/2016 CHEM 14 6236692 POTASSIUM 3.8 mmol/L 03/15/2016 CHEM 14 1590101 TOTAL PROTEIN 6.7 g/dL 03/15/2016 CHEM 14 3445853 GLUCOSE 109 mg/dL 03/15/2016 CHEM 14 2668555 Bicarbonate 27 mmol/L 03/15/2016 CHEM 14 9398541 AGAP 6 mmol/L 03/15/2016 GFR CALC 7052543 GFR Non Afr Amr 54 mL/min 03/15/2016 GFR CALC 0121056 GFR Afr Amr >60 mL/min 03/15/2016 B12 Xgg331 B12 46.00 pg/ml 08/07/2015 Iron Ord72 Iron [...] Ord2 RDW 16.6 % 08/05/2015 Free T4 Dsd253 FREE T4 1.33 ng/dL 08/05/2015 Comp Metabolic Jss744 NA 137 mEq/L 08/05/2015 Comp Metabolic Rfd179 K 4.5 mEq/L 08/05/2015 Comp Metabolic Csv617 CL 104 mEq/L 08/05/2015 Comp Metabolic Nmd478 CO2 26.0 mEq/L 08/05/2015 Comp Metabolic Opj197 ANION GAP 12 08/05/2015 Comp Metabolic Vsx723 GLUCOSE 146 mg/dL 08/05/2015 Comp Metabolic Dth603 Creat 1.0 mg/dL 08/05/2015 Comp Metabolic Kog903 eGFR 56 ml/min/1.73m2 08/05/2015 Comp Metabolic Mwe021 BUN 23 mg/dL 08/05/2015 Comp Metabolic Vun990 B/C Ratio 22.8 Ratio 08/05/2015 Comp Metabolic Bns122 CALCIUM 9.3 mg/dL 08/05/2015 Comp Metabolic Cza738 ALK PHOS 71 U/L 08/05/2015 Comp Metabolic Dtg933 AST(SGOT) 33 U/L 08/05/2015 Comp Metabolic Yzb016 ALT(SGPT) 15 U/L 08/05/2015 Comp Metabolic Qfm468 BILI T 0.6 mg/dL 08/05/2015 Comp Metabolic Uiq015 ALBUMIN 3.9 g/dL 08/05/2015 Comp Metabolic Nod710 TPRO 6.5 g/dL 08/05/2015 Comp Metabolic Yky604 GLOB 2.6 g/dL 08/05/2015 Comp Metabolic Qtd193 A/G Ratio 1.5 Ratio 08/05/2015 Comp Metabolic Lky283 Osmo 280 mOsmo 08/05/2015 Tsh Ord6 hTSH II 0.36 uIU/mL 08/05/2015 %Hba1C Oyz353 % HbA1c 39710-5 8.1 % 08/05/2015 %Hba1C Gkj925 Gluc Ave 186 mg/dL 08/05/2015 Free T4 Koc106 FREE T4 0.91 ng/dL 04/11/2015 %Hba1C Zwz206 % HbA1c 74561-0 8.3 % 04/10/2015 %Hba1C Cmf343 Gluc Ave 192 mg/dL 04/10/2015 Cbc With [...] Ord2 RDW 15.8 % 04/10/2015 Comp Metabolic Suw600 NA 134 mEq/L 04/10/2015 Comp Metabolic Peo622 K 4.1 mEq/L 04/10/2015 Comp Metabolic Nuw449 CL 105 mEq/L 04/10/2015 Comp Metabolic Nmq171 CO2 26.0 mEq/L 04/10/2015 Comp Metabolic Wkw056 ANION GAP 7 04/10/2015 Comp Metabolic Uxo773 GLUCOSE 126 mg/dL 04/10/2015 Comp Metabolic Yzq324 Creat 1.0 mg/dL 04/10/2015 Comp Metabolic Lcu245 eGFR 58 ml/min/1.73m2 04/10/2015 Comp Metabolic Ldl386 BUN 29 mg/dL 04/10/2015 Comp Metabolic Tku392 B/C Ratio 29.6 Ratio 04/10/2015 Comp Metabolic Nxk263 CALCIUM 9.3 mg/dL 04/10/2015 Comp Metabolic Rep612 ALK PHOS 63 U/L 04/10/2015 Comp Metabolic Hgd174 AST(SGOT) 31 U/L 04/10/2015 Comp Metabolic Uqo603 ALT(SGPT) 14 U/L 04/10/2015 Comp Metabolic Bue015 BILI T 0.6 mg/dL 04/10/2015 Comp Metabolic Fsq585 ALBUMIN 3.9 g/dL 04/10/2015 Comp Metabolic Xno167 TPRO 6.3 g/dL 04/10/2015 Comp Metabolic Sio391 GLOB 2.4 g/dL 04/10/2015 Comp Metabolic Prq694 A/G Ratio 1.6 Ratio 04/10/2015 Comp Metabolic Iux296 Osmo 276 mOsmo 04/10/2015 Tsh Ord6 hTSH [...] Procedure Codes Date GLUCOSE MONITORING CONT CPT-4: 50628 05/22/2018 THER/PROPH/DIAG INJ SC/IM CPT-4: 07097 01/12/2018 VITAMIN B12 INJECTION CPT-4: J3420 01/12/2018 THER/PROPH/DIAG INJ SC/IM CPT-4: 00218 09/15/2017 VITAMIN B12 INJECTION CPT-4: J3420 09/15/2017 THER/PROPH/DIAG INJ SC/IM CPT-4: 78628 08/17/2017 VITAMIN B12 INJECTION CPT-4: J3420 08/17/2017 THER/PROPH/DIAG INJ SC/IM CPT-4: 33857 07/19/2017 VITAMIN B12 INJECTION CPT-4: J3420 07/19/2017 THER/PROPH/DIAG INJ SC/IM CPT-4: 21570 05/19/2017 VITAMIN B12 INJECTION CPT-4: J3420 05/19/2017 THER/PROPH/DIAG INJ SC/IM CPT-4: 93540 04/06/2017 VITAMIN B12 INJECTION CPT-4: J3420 04/06/2017 THER/PROPH/DIAG INJ SC/IM CPT-4: 18282 01/04/2017 VITAMIN B12 INJECTION CPT-4: J3420 01/04/2017 THER/PROPH/DIAG INJ SC/IM CPT-4: 84977 12/10/2016 VITAMIN B12 INJECTION CPT-4: J3420 12/10/2016 THER/PROPH/DIAG INJ SC/IM CPT-4: 41649 10/13/2016 TRIAMCINOLONE ACET INJ NOS CPT-4: J3301 10/13/2016 THER/PROPH/DIAG INJ SC/IM CPT-4: 62908 09/03/2016 VITAMIN B12 INJECTION CPT-4: J3420 09/03/2016 THER/PROPH/DIAG INJ SC/IM CPT-4: 29248 07/29/2016 VITAMIN B12 INJECTION CPT-4: J3420 07/29/2016 THER/PROPH/DIAG INJ SC/IM CPT-4: 91313 06/03/2016 VITAMIN B12 INJECTION CPT-4: J3420 06/03/2016 PNEUMOCOCCAL VACC [address]: 15925221 CPT-4: 82459 04/22/2016 ADMIN PNEUMOCOCCAL VACCINE SNOMED CT: 64849021 CPT-4: G0009 04/22/2016 VITAMIN B12 INJECTION CPT-4: J3420 09/15/2015 THER/PROPH/DIAG INJ SC/IM CPT-4: 55267 09/15/2015 THER/PROPH/DIAG INJ SC/IM CPT-4: 83198 09/08/2015 VITAMIN B12 INJECTION CPT-4: J3420 09/08/2015 THER/PROPH/DIAG INJ SC/IM CPT-4: 04879 09/01/2015 VITAMIN B12 INJECTION CPT-4: J3420 09/01/2015 THER/PROPH/DIAG INJ SC/IM CPT-4: 16824 08/25/2015 VITAMIN B12 INJECTION CPT-4: J3420 08/25/2015 Vital Signs Date Vital 05/22/2018 Blood Pressure 1: 148/72 Code : 8480-6 BMI: 41.6 Code : 58729-2 Heart Rate 1 : 82 bpm Height: 4'11" SpO2: 95% Weight: 206 lbs 05/15/2018 Blood Pressure 1: 140/80 Code : 8480-6 BMI: 41.6 Code : 84444-2 Heart Rate 1 : 86 bpm Height: 4'11" SpO2: 92% Weight: 206 lbs 01/12/2018 Blood Pressure 1: 140/78 Code : 8480-6 BMI: 42.2 Code : 27208-9 Heart Rate 1 : 73 bpm Height: 4'11" SpO2: 97% Weight: 209 lbs 11/25/2017 Blood Pressure 1: 140/68 Code : 8480-6 BMI: 42.2 Code : 55764-9 Heart Rate 1 : 76 bpm Height: 4'11" SpO2: 94% Weight: 209 lbs 09/15/2017 Blood Pressure 1: 146/67 Code : 8480-6 BMI: 42.2 Code : 77404-5 Heart Rate 1 : 69 bpm Height: 4'11" SpO2: 97% Weight: 209 lbs 08/17/2017 Blood Pressure 1: 144/70 Code : 8480-6 BMI: 41.8 Code : 70457-4 Heart Rate 1 : 63 bpm Height: 4'11" SpO2: 97% Weight: 207 lbs 07/19/2017 Blood Pressure 1: 142/74 Code : 8480-6 BMI: 41.4 Code : 70955-0 Heart Rate 1 : 71 bpm Height: 4'11" SpO2: 96% Weight: 205 lbs 05/19/2017 Blood Pressure 1: 148/76 Code : 8480-6 BMI: 42.8 Code : 11672-3 Heart Rate 1 : 72 bpm Height: 4'11" SpO2: 94% Weight: 212 lbs 02/15/2017 Blood Pressure 1: 154/70 Code : 8480-6 BMI: 42.5 Code : 42431-9 Heart Rate 1 : 68 bpm Height: 4'11" SpO2: 97% Weight: 210 lbs 8 11/16/2016 Blood Pressure 1: 142/78 Code : 8480-6 BMI: 41.6 Code : 08602-2 Heart Rate 1 : 68 bpm Height: 4'11" SpO2: 95% Temperature: 36.0 (C) / 96.8 (F) Weight: 206 lbs 08/19/2016 Blood Pressure 1: 120/74 Code : 8480-6 BMI: 41.6 Code : 64095-9 Heart Rate 1 : 75 bpm Height: 4'11" SpO2: 95% Weight: 206 lbs 07/15/2016 Blood Pressure 1: 140/76 Code : 8480-6 BMI: 42.0 Code : 82814-8 Heart Rate 1 : 76 bpm Height: 4'11" SpO2: 96% Weight: 208 lbs 06/03/2016 Blood Pressure 1: 130/78 Code : 8480-6 BMI: 42.8 Code : 44494-8 Heart Rate 1 : 72 bpm Height: 4'11" SpO2: 98% Weight: 212 lbs 04/22/2016 Blood Pressure 1: 142/84 Code : 8480-6 BMI: 41.8 Code : 80200-7 Heart Rate 1 : 86 bpm Height: 4'11" SpO2: 92% Weight: 207 lbs 01/22/2016 Blood Pressure 1: 162/64 Code : 8480-6 BMI: 41.2 Code : 50156-9 Heart Rate 1 : 70 bpm Height: 4'11" SpO2: 97% Weight: 204 lbs 10/23/2015 Blood Pressure 1: 130/70 Code : 8480-6 BMI: 40.4 Code : 50103-2 Heart Rate 1 : 72 bpm Height: 4'11" SpO2: 95% Weight: 200 lbs 09/12/2015 Blood Pressure 1: 142/62 Code : 8480-6 BMI: 39.4 Code : 12635-6 Heart Rate 1 : 63 bpm Height: 4'11" SpO2: 96% Weight: 195 lbs 08/05/2015 Blood Pressure 1: 144/60 Code : 8480-6 BMI: 41.0 Code : 45174-7 Heart Rate 1 : 92 bpm Height: 4'11" SpO2: 90% SpO2: 97% Weight: 203 lbs 04/03/2015 Blood Pressure 1: 142/68 Code : 8480-6 BMI: 40.6 Code : 17339-0 Heart Rate 1 : 77 bpm Height: 4'11" SpO2: 95% Weight: 201 lbs 01/30/2015 Blood Pressure 1: 150/72 Code : 8480-6 BMI: 40.2 Code : 16638-4 Heart Rate 1 : 64 bpm Height: 4'11" Weight: 199 lbs 01/02/2015 Blood Pressure 1: 136/72 Code : 8480-6 BMI: 39.8 Code : 11801-3 Heart Rate 1 : 68 bpm Height: [...] data Encounters Encounter Performer Location Codes Date ([id number]) 58784 EST. PATIENT, LEVEL IV Diagnosis: Type 2 diabetes mellitus with hyperglycemia[ICD10: E11.65] Diagnosis: Essential (primary) hypertension[ICD10: I10] Diagnosis: Hypothyroidism, unspecified[ICD10: E03.9] Giselle Knox MD, [facility] CPT-4: 78274 05/15/2018 ([id number]) 49533 EST. 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 PATIENT, LEVEL IV Diagnosis: Varicose veins of bilateral lower extremities with pain[ICD10: I83.813] Diagnosis: Low back pain[ICD10: M54.5] Diagnosis: Hypothyroidism, unspecified[ICD10: E03.9] Diagnosis: Type 2 diabetes mellitus with hyperglycemia[ICD10: E11.65] Giselle Knox MD, [facility] CPT-4: 81088 11/25/2017 83583 EST. PATIENT, LEVEL IV Diagnosis: Localized edema[ICD10: R60.0] Diagnosis: Vitamin B12 deficiency anemia due to intrinsic factor deficiency[ ICD10: D51.0] Chasity Knox MD, [facility] CPT-4: 64908 72729 EST. PATIENT, LEVEL IV Diagnosis: Essential (primary) hypertension[ICD10: I10] Diagnosis: Type 2 diabetes mellitus with hyperglycemia[ICD10: E11.65] Diagnosis: Vitamin B12 deficiency anemia due to intrinsic factor deficiency[ ICD10: D51.0] Chasity Knox MD, [facility] CPT-4: 00963 22079 EST. PATIENT, LEVEL IV Diagnosis: Type 2 diabetes mellitus with hyperglycemia[ICD10: E11.65] Diagnosis: Essential (primary) hypertension[ICD10: I10] Diagnosis: Vitamin B12 deficiency anemia due to intrinsic factor deficiency[ ICD10: D51.0] Chasity Knox MD, [facility] CPT-4: 77316 ([id number]) 34335 EST. PATIENT, LEVEL IV Diagnosis: Essential (primary) hypertension[ICD10: I10] Diagnosis: Type 2 diabetes mellitus with hyperglycemia[ICD10: E11.65] Diagnosis: Hypothyroidism, unspecified[ICD10: E03.9] Diagnosis: Vitamin B12 deficiency anemia due to intrinsic factor deficiency[ ICD10: D51.0] Diagnosis: Chronic kidney disease, stage 3 (moderate)[ICD10: N18.3] Giselle Knox MD , [facility] CPT-4: 50617 05/19/2017 ([id number]) 22478 EST. PATIENT, LEVEL IV Diagnosis: Essential (primary) hypertension[ICD10: I10] Diagnosis: Type 2 diabetes mellitus with hyperglycemia[ICD10: E11.65] Diagnosis: Hypothyroidism, unspecified[ICD10: E03.9] Giselle Knox MD, [facility] CPT-4: 34707 02/15/2017 [id number]) 82939 EST. PATIENT, LEVEL IV Diagnosis: Type 2 diabetes mellitus with hyperglycemia[ICD10: E11.65] Diagnosis: Cough[ICD10: R05] Diagnosis: Acute upper respiratory infection, unspecified[ICD10: J06.9] Diagnosis: Hypothyroidism, unspecified[ICD10: E03.9] Diagnosis: Chronic kidney disease, stage 3 (moderate)[ICD10: N18.3] Giselle Knox MD , [facility] CPT-4: 43579 11/16/2016 [id number]) 35751 EST. PATIENT, LEVEL IV Diagnosis: Type 2 diabetes mellitus with hyperglycemia[ICD10: E11.65] Diagnosis: Hypothyroidism, unspecified[ICD10: E03.9] Diagnosis: Essential (primary) hypertension[ICD10: I10] Giselle Knox MD, [facility] CPT-4: 29315 08/19/2016 [id number]) 89111 EST. PATIENT, LEVEL III Diagnosis: Type 2 diabetes mellitus with hyperglycemia[ICD10: E11.65] Giselle Knox MD, [facility] CPT-4: 37820 07/15/2016 [id number]) 04844 EST. PATIENT, LEVEL IV Diagnosis: Type 2 diabetes mellitus with hyperglycemia[ICD10: E11.65] Diagnosis: Atrophy of thyroid (acquired)[ICD10: E03.4] Diagnosis: Vitamin B12 deficiency anemia due to intrinsic factor deficiency[ ICD10: D51.0] Diagnosis: Chronic kidney disease, stage 3 (moderate)[ICD10: N18.3] Diagnosis: Essential (primary) hypertension[ICD10: I10] Jennifer Knox MD, [facility] CPT-4: 57695 06/03/2016 ([id number]) 60754 EST. PATIENT, LEVEL III Diagnosis: Type 2 diabetes mellitus with hyperglycemia[ICD10: E11.65] Diagnosis: Essential (primary) hypertension[ICD10: I10] Diagnosis: Chronic kidney disease, stage 3 (moderate)[ICD10: N18.3] Diagnosis: VACCIN STREP PNEUMONIAE[ICD10: Z23] Giselle Knox MD, [facility] CPT-4: 92919 04/22/2016 78299 EST. PATIENT, LEVEL IV Diagnosis: Type 2 diabetes mellitus with hyperglycemia[ICD10: E11.65] Diagnosis: Essential (primary) hypertension[ICD10: I10] Chasity Knox MD, [facility] CPT-4: 95138 01/22/2016 ([id number]) 47039 EST. PATIENT, LEVEL III Diagnosis: Type 2 diabetes mellitus with hyperglycemia[ICD10: E11.65] Diagnosis: Essential (primary) hypertension[ICD10: I10] Giselle Knox MD, [facility] CPT-4: 80001 10/23/2015 23657 EST. PATIENT, LEVEL IV Diagnosis: Type 2 diabetes mellitus with hyperglycemia[ICD10: E11.65] Diagnosis: Vitamin B12 deficiency anemia due to intrinsic factor deficiency[ ICD10: D51.0] Diagnosis: Essential (primary) hypertension[ICD10: I10] Chasity Knox MD, [facility] CPT-4: 31073 09/12/2015 ([id number]) 15983 EST. PATIENT, LEVEL IV Diagnosis: Essential (primary) hypertension[ICD10: I10] Diagnosis: Type 2 diabetes mellitus with hyperglycemia[ICD10: E11.65] Diagnosis: Hypothyroidism, unspecified[ICD10: E03.9] Giselle Knox MD, [facility] CPT-4: 22557 08/05/2015 ([id number]) 29770 EST. PATIENT, LEVEL III Diagnosis: ESSENTIAL HYPERTENSION[ICD9: 401.9] Diagnosis: DIABETES TYPE II[ICD9: 250.00] Jennifer Knox MD, [facility] CPT- 4: 02509 04/03/2015 ([id number]) 86114 EST. PATIENT, LEVEL IV Diagnosis: ESSENTIAL HYPERTENSION[ICD9: 401.9] Diagnosis: DIABETES TYPE II[ICD9: 250.00] Diagnosis: Hypothyroidism[ICD9: 244.9] [facility] CPT-4: 64260 01/30/2015 ([id number]) OFFICE VISIT, NEW - LEVEL 4 Diagnosis: ESSENTIAL HYPERTENSION[ICD9: 401.9] Diagnosis: DIABETES TYPE II[ICD9: 250.00] Diagnosis: Impacted cerumen[ICD9: 380.4] [facility] CPT- 4: 15045 01/02/2015 Plan of Care Planned Activity Notes Codes Status Date Visit Plan: DM-here for IPRO placement in order to get a full picture of blood sugar readings in attempt to identify trends in blood sugars so we can better manage her medications. Return in 1 week for removal of IPRO. 05/22/2018 Patient Education: Patient Medication Summary Completed [...] of control. 05/15/2018 Appointment: Giselle Mccoy WPtel: [address] [place], [place] [phone] (15 min) Moderate 05/15/2018 Patient Education: Patient [...] evaluation-recommend PT 01/12/2018 Appointment: Giselle Mccoy WPtel: [facility]5 [phone] (30 min) Complex 01/12/2018 Patient Education: Patient Medication Summary Completed 01/12/2018 Care Plan: Referral Order SNOMED-CT : [id number] Pending 01/12/2018 Visit Plan: Varicose veins-rx for compression stockings provided and instructed on use Low back pain-recommend xray lumbar spine Hypothyroidism-check labs DM-check Hgb A1c 11/25/2017 Appointment: Giselle Mccoy WPtel: [phone] [phone] (30 min) Complex 11/25/2017 Patient Education: Patient Medication Summary Completed 11/25/2017 Care Plan: X-RAY EXAM L-S SPINE 2/ VWS LOINC : 02990-7 Pending 11/25/2017 Visit Plan: Edema - Left [...] concerns. 09/15/2017 Appointment: Chasity Caldwell WPtel: [phone] [phone] (30 min) Complex 09/15/2017 Patient Education: Patient [...] glucose control. 08/17/2017 Appointment: Chasity Caldwell WPtel: [phone] [facility] (15 min) Moderate 08/17/2017 Patient Education: [...] home. 07/19/2017 Appointment: [phone] (15 min) Moderate 07/19/2017 Patient Education: Patient Medication Summary Completed 07/19/2017 [phone] (15 min) Moderate 06/13/2017 Visit Plan: [...] medications. 05/19/2017 Appointment: [phone] (30 min) Complex 05/19/2017 Patient Education: [...] of control. 02/15/2017 Appointment: Giselle Mccoy WPtel: [phone] [phone] (15 min) Moderate 02/15/2017 Patient Education: [...] labs today 11/16/2016 Appointment: Giselle Mccoy WPtel: [phone] [phone] (15 min) Moderate 11/16/2016 Patient Education: [...] [phone] (15 min) Moderate 08/19/2016 Patient Education: Patient Medication Summary Completed 08/19/2016 Patient Education: Obesity Completed 08/19/2016 Care Plan: Tsh Cancelled 08/19/2016 Care Plan: %Hba1C LOINC : 62091-7 Cancelled 08/19/2016 Care Plan: Lipid Cancelled 08/19/2016 Care Plan: Free T4 patient coming back next week Cancelled 08/19/2016 Appointment: Injection 07/29/2016 Patient Education: Patient Medication Summary Completed 07/29/2016 Appointment: Giselle Mccoy WPtel: [phone] (30 min) Complex 07/22/2016 Visit Plan: Diabetes-having hypoglycemia in the mornings- insulin adjusted-patient and verbalized understanding of plan. Follow up in 1 month-call sooner if still having low blood sugars. Sinus congestion- start claritin 07/15/2016 Appointment: Giselle Mccoy WPtel: [phone] (30 min) Complex 07/15/2016 Patient Education: [...] control. 06/03/2016 Appointment: [phone] (15 min) Moderate 06/03/2016 Patient Education: [...] 1 MONTH 04/22/2016 Appointment: Giselle Mccoy WPtel: [phone] (15 min) Moderate 04/22/2016 Patient Education: Patient [...] if needed. 01/02/2015 Appointment: Jennifer Knox WPtel: [facility] [place] New Patient 01/02/2015 Patient [...]
[2018-06-17 10:40] VITALS: BP 189/75
--- OUTSIDE RECORDS SUMMARY | 2018-06-17 10:40 | XMS REPORT | CCD ---
Author Author [facility] Organization [facility] Address [address] [place] [address] Phone Care Team Providers Care Maintenance Of Way Clerk Name Role Phone PP Unavailable CCM Unavailable Summary Purpose Interface Exchange Insurance Providers Payer name Policy type / Coverage type Covered green party ID Effective Begin Date Effective End Date [facility] Commercial Insurance [id number] Unknown Family history Runs in the family [...] Codes Condition Status Onset Date Resolved Date Essential (primary) hypertension ICD-9: 401.9 ICD-10: I10 [...] Problems Condition Codes Effective Dates Condition Status Essential (primary) hypertension ICD-9: 401.9 ICD-10: I10 [...] U-100 Insulin 100 unit/mL subcutaneous suspension RxNorm: 976022 18 Unit(s) SQ QAM 05/15/2018 No Stop Date Active levothyroxine 100 mcg tablet RxNorm: 966606 1 Tablet(s) PO daily 05/11/2018 09/07/2018 Active carvedilol 12.5 mg tablet RxNorm: 637500 TAKE ONE TABLET BY MOUTH TWICE A DAY 05/05/2018 07/28/2019 Active losartan 100 mg tablet RxNorm: 711406 TAKE ONE TABLET BY MOUTH DAILY 03/24/2018 06/10/2020 Active terazosin 2 mg capsule RxNorm: 024828 TAKE ONE CAPSULE BY MOUTH DAILY 03/07/2018 03/01/2019 Active Lantus Solostar U-100 Insulin 100 unit/mL (3 mL) subcutaneous pen RxNorm: 121490 Unit(s) INJECT 24 UNITS UNDER THE SKIN EVERY NIGHT AT BEDTIME 01/12/2018 No Stop Date Active cyanocobalamin (vit B-12) 1,000 mcg/mL injection solution RxNorm: 717176 1 Milliliter(s) Inj 01/12/2018 01/12/2018 Inactive Humulin 70/30 U-100 Insulin 100 unit/mL subcutaneous suspension RxNorm: 148610 INJECT 18 UNITS UNDER THE SKIN EVERY MORNING 11/14/2017 03/05/2018 Inactive carvedilol 12.5 mg tablet RxNorm: 801226 TAKE ONE TABLET BY MOUTH TWICE A DAY 11/07/2017 05/04/2018 Inactive cyanocobalamin (vit B-12) 1,000 mcg/mL injection solution RxNorm: 895935 Milliliter(s) Inj 09/15/2017 09/15/2017 Inactive terazosin 2 mg capsule RxNorm: 693229 Capsule(s) TAKE ONE CAPSULE BY MOUTH DAILY 09/07/2017 03/05/2018 Inactive Lantus Solostar 100 unit/mL (3 mL) subcutaneous insulin pen RxNorm: 247990 INJECT 35 UNITS UNDER THE SKIN EVERY NIGHT AT BEDTIME 201701/11/2018 Inactive One Touch Test strips RxNorm: 1 test Miscellaneous BID 201708/16/2018 Active Contour Test Strips RxNorm: TEST BLOOD SUGAR TWO TIMES A DAY E11.65 08/22/2017 02/22/2019 Active Tamiflu 75 mg capsule RxNorm: 647467 1 Capsule(s) PO daily 08/1708/16/2017 Inactive Tamiflu 75 mg capsule RxNorm: 000638 1 Capsule(s) PO daily 08/1708/26/2017 Inactive cyanocobalamin (vit B-12) 1,000 mcg/mL injection solution RxNorm: 918322 1 Milliliter(s) Inj 08/17/2017 08/17/2017 Inactive carvedilol 12.5 mg tablet RxNorm: 289163 TAKE ONE TABLET BY MOUTH TWICE A DAY 08/10/2017 11/06/2017 Inactive cyanocobalamin (vit B-12) 1,000 mcg/mL injection solution RxNorm: 095314 1 Milliliter(s) Inj 07/19/2017 07/19/2017 Inactive Humulin 70/30 100 unit/mL subcutaneous suspension RxNorm: 563426 14 Unit(s) SQ QAM 07/06/2017 05/14/2018 Inactive Lantus Solostar 100 unit/mL (3 mL) subcutaneous insulin pen RxNorm: 238563 26 Unit(s) SQ QHS 07/06/2017 08/28/2017 Inactive losartan 100 mg tablet RxNorm: 803904 TAKE ONE TABLET BY MOUTH DAILY 06/07/2017 03/23/2018 Inactive Lantus Solostar 100 unit/mL (3 mL) subcutaneous insulin pen RxNorm: 002993 28 Unit(s) SQ QHS 05/19/2017 07/05/2017 Inactive cyanocobalamin (vit B-12) 1,000 mcg/mL injection solution RxNorm: 750252 1 Milliliter(s) Inj 05/19/2017 05/19/2017 Inactive terazosin 2 mg capsule RxNorm: 899276 TAKE ONE CAPSULE BY MOUTH DAILY 05/16/2017 09/06/2017 Inactive cyanocobalamin (vit B-12) 1,000 mcg/mL injection solution RxNorm: 114915 1 Milliliter(s) Inj 04/06/2017 04/06/2017 Inactive cyanocobalamin (vit B-12) 1,000 mcg/mL injection solution RxNorm: 706821 Milliliter(s) Inj 01/04/2017 01/04/2017 Inactive Humulin 70/30 U-100 Insulin 100 unit/mL subcutaneous suspension RxNorm: 836941 18 Unit(s) SQ QAM 12/22/20162016 Inactive cyanocobalamin (vit B-12) 1,000 mcg/mL injection solution RxNorm: 025466 1 Milliliter(s) Inj 12/10/2016 12/10/2016 Inactive Zithromax Z-Jose 250 mg tablet RxNorm: 392841 1 Tablet(s) PO UD 11/16/2016 11/20/2016 Inactive terazosin 2 mg capsule RxNorm: 139466 TAKE ONE CAPSULE BY MOUTH DAILY 11/08/2016 05/06/2017 Inactive Lantus Solostar 100 unit/mL (3 mL) subcutaneous insulin pen RxNorm: 845069 INJECT 35 UNITS UNDER THE SKIN EVERY NIGHT AT BEDTIME 201607/18/2017 Inactive cyanocobalamin (vit B-12) 1,000 mcg/mL injection solution RxNorm: 607024 Milliliter(s) Inj 10/13/2016 10/13/2016 Inactive cyanocobalamin (vit B-12) 1,000 mcg/mL injection solution RxNorm: 108440 1 Milliliter(s) Inj 09/03/2016 09/03/2016 Inactive Contour Test Strips RxNorm: TEST BLOOD SUGAR TWO TIMES A DAY E11.65 08/19/2016 08/21/2017 Inactive carvedilol 12.5 mg tablet RxNorm: 214237 TAKE ONE TABLET BY MOUTH TWICE A DAY 08/05/2016 01/01/2017 Inactive carvedilol 12.5 mg tablet RxNorm: 19990924 TAKE ONE TABLET BY MOUTH TWICE A DAY 08/05/2016 01/01/2017 Inactive carvedilol 12.5 mg tablet RxNorm: 267464 1 Tablet(s) PO BID 05/201701/30/2017 Inactive cyanocobalamin (vit B-12) 1,000 mcg/mL injection solution RxNorm: 112371 Milliliter(s) Inj 07/29/2016 07/29/2016 Inactive Lantus Solostar 100 unit/mL (3 mL) subcutaneous insulin pen RxNorm: 461470 30 Unit(s) SQ QHS 07/15/2016 05/18/2017 Inactive Humulin 70/30 100 unit/mL subcutaneous suspension RxNorm: 446315 18 Unit(s) SQ QAM 07/15/2016 12/21/2016 Inactive losartan 100 mg tablet RxNorm: 841952 TAKE ONE TABLET BY MOUTH DAILY 07/08/2016 06/02/2017 Inactive terazosin 2 mg capsule RxNorm: 314663 TAKE ONE CAPSULE BY MOUTH DAILY 06/10/2016 11/06/2016 Inactive cyanocobalamin (vit B-12) 1,000 mcg/mL injection solution RxNorm: 496828 1 Milliliter(s) Inj 06/03/2016 06/03/2016 Inactive Humulin 70/30 100 unit/mL subcutaneous suspension RxNorm: 634149 Unit(s) INJECT 10 UNITS UNDER THE SKIN 06/01/20162015 Inactive Request already responded to by other means (e.g. phone or fax) Humulin 70/30 100 unit/mL subcutaneous suspension RxNorm: 175382 INJECT 10 UNITS UNDER THE SKIN BEFORE MEALS 06/01/201601/2016 Inactive Request already responded to by other means (e.g. phone or fax) Lantus Solostar 100 unit/mL (3 mL) subcutaneous insulin pen RxNorm: 948166 35 Unit(s) SQ QHS 05/26/2016 07/14/2016 Inactive Humulin 70/30 100 unit/mL subcutaneous suspension RxNorm: 581709 10 Unit(s) SQ QAM 05/24/2016 10/02/2016 Inactive Humulin 70/30 100 unit/mL subcutaneous suspension RxNorm: 389009 21 Unit(s) SQ QAM 05/24/2016 05/23/2016 Inactive Lantus Solostar 100 unit/mL (3 mL) subcutaneous insulin pen RxNorm: 262155 32 Unit(s) SQ QHS 04/22/2016 05/25/2016 Inactive Humulin 70/30 100 unit/mL subcutaneous suspension RxNorm: 076182 21 Unit(s) SQ QAM 04/22/2016 05/24/2016 Inactive with breakfast hydrochlorothiazide 25 mg tablet RxNorm: 542837 TAKE ONE TABLET BY MOUTH DAILY 02/04/2016 02/16/2016 Inactive terazosin 2 mg capsule RxNorm: 830590 Capsule(s) TAKE ONE CAPSULE BY MOUTH DAILY. 12/01/2015 05/28/2016 Inactive Humulin 70/30 100 unit/mL subcutaneous suspension RxNorm: 642923 INJECT 10 UNITS UNDER THE SKIN BEFORE MEALS 11/06/2015 Inactive hydrochlorothiazide 25 mg tablet RxNorm: 810284 1 Tablet(s) PO daily 10/06/2015 02/02/2016 Inactive cyanocobalamin (vit B-12) 1,000 mcg/mL injection solution RxNorm: 585536 Milliliter(s) Inj 09/15/2015 09/15/2015 Inactive Humulin 70/30 100 unit/mL subcutaneous suspension RxNorm: 924281 INJECT 10 UNITS UNDER THE SKIN BEFORE MEALS 09/08/2015 Inactive cyanocobalamin (vit B-12) 1,000 mcg/mL injection solution RxNorm: 039687 Milliliter(s) Inj 09/08/2015 09/08/2015 Inactive terazosin 2 mg capsule RxNorm: 268718 TAKE ONE CAPSULE BY MOUTH DAILY. DISCONTINUE 5 MG CAPSULES 09/01/201511/28 Inactive cyanocobalamin (vit B-12) 1,000 mcg/mL injection solution RxNorm: 116207 Milliliter(s) Inj 09/01/2015 09/01/2015 Inactive cyanocobalamin (vit B-12) 1,000 mcg/mL injection solution RxNorm: 183017 Milliliter(s) Inj 08/25/2015 08/25/2015 Inactive levothyroxine 112 mcg tablet RxNorm: 050762 1 Tablet(s) PO daily 08/06/2015 02/14/2017 Inactive Lantus Solostar 100 unit/mL (3 mL) subcutaneous insulin pen RxNorm: 386244 35 Unit(s) SQ QHS 08/06/2015 04/21/2016 Inactive Humulin 70/30 100 unit/mL subcutaneous suspension RxNorm: 199609 20 Unit(s) SQ AC 08/05/2015 04/21/2016 Inactive with breakfast carvedilol 12.5 mg tablet RxNorm: 290984 1 Tablet(s) PO BID 06/201601/31/2016 Inactive Humulin 70/30 100 unit/mL subcutaneous suspension RxNorm: 178307 10 Unit(s) SQ AC 07/22/2015 08/04/2015 Inactive losartan 100 mg tablet RxNorm: 459032 TAKE ONE TABLET BY MOUTH DAILY 06/25/2015 06/18/2016 Inactive Lantus Solostar 100 unit/mL (3 mL) subcutaneous insulin pen RxNorm: 978849 30 Unit(s) SQ QHS 06/18/2015 08/05/2015 Inactive terazosin 2 mg capsule RxNorm: 634044 1 Capsule(s) PO daily 08/11/2015 Inactive DC the 5mg order terazosin 2 mg capsule RxNorm: 400981 1 Capsule(s) PO daily 04/13/2015 Inactive Synthroid 25 mcg tablet RxNorm: 507577 1 Tablet(s) PO daily 02/14/2017 Inactive Synthroid 25 mcg tablet RxNorm: 483104 1 Tablet(s) PO daily 04/10/2015 Inactive Lantus Solostar 100 unit/mL (3 mL) subcutaneous insulin pen RxNorm: 885548 30 Unit(s) SQ QHS 04/04/2015 06/17/2015 Inactive terazosin 5 mg tablet RxNorm: 677334 1 Tablet(s) PO daily 201404/13/2015 Inactive Lantus Solostar 100 unit/mL (3 mL) subcutaneous insulin pen RxNorm: 253507 25 Unit(s) SQ QHS 01/08/2015 04/03/2015 Inactive carvedilol 25 mg tablet RxNorm: 462137 1 Tablet(s) PO BID 01/0201/31/2015 Inactive terazosin 5 mg tablet RxNorm: 490599 1 Tablet(s) PO daily 201401/01/2015 Inactive levothyroxine 125 mcg tablet RxNorm: 898528 1 Tablet(s) PO daily 01/02/2015 01/31/2015 Inactive terazosin 5 mg tablet RxNorm: 334795 1/2 Tablet(s) PO daily 05/201501/31/2015 Inactive losartan 100 mg tablet RxNorm: 566470 1 Tablet(s) PO daily 08/201404/22/2015 Inactive losartan 100 mg tablet RxNorm: 118409 1 Tablet(s) PO daily 08/201412/23/2014 Inactive Contour Test Strips RxNorm: Miscellaneous test blood sugars BID 12/06/2014 12/05/2014 Inactive dx 250.00 Contour Test Strips RxNorm: Miscellaneous test blood sugars BID or UD 12/06/2014 06/23/2015 Inactive dx 250.00 [SAVINGS FOR NON-COVERED DRUGS -- BIN:[id number], PCN: [id number], Group: [id number], ID# [id number], Questions: . THIS IS NOT INSURANCE.] folic acid 1 mg tablet RxNorm: 362087 1 Tablet(s) PO QHS No Start Date Active Microlet Lancet RxNorm : Miscellaneous Test BID or Ud No Start Date Active 250.0 aspirin 81 mg tablet,delayed release RxNorm: 019782 1 Tablet(s) PO daily No Start Date Active Stool Softener 100 mg capsule RxNorm: 3376279 1 Capsule(s) PO every other day No Start Date Active folic acid oral RxNorm : 4511 oral No Start Date 05/19/2017 Inactive cyanocobalamin (vit B-12) 100 mcg tablet RxNorm: 636511 1 Tablet(s) PO daily No Start Date 02/14/2017 Inactive hydrochlorothiazide 25 mg tablet RxNorm: 060547 1 Tablet(s) PO daily No Start Date 10/05/2015 Inactive Stool Softener 100 mg capsule RxNorm: 1648198 1 Capsule(s) PO daily No Start Date 05/18/2017 Inactive Humulin 70/30 100 unit/mL subcutaneous suspension RxNorm: 071983 20 Unit(s) SQ QAM No Start Date 07/21/2015 Inactive levothyroxine 100 mcg tablet RxNorm: 225800 1 Tablet(s) PO daily No Start Date 05/10/2018 Inactive Lantus Solostar 100 unit/mL (3 mL) subcutaneous insulin pen RxNorm: 656860 20 Unit(s) SQ QHS No Start Date 01/07/2015 Inactive ferrous sulfate 325 mg (65 mg iron) tablet RxNorm: 332785 1 Tablet(s) PO daily No Start Date 05/18/2017 Inactive Medication Administered Medication Codes Instructions Start Date Status cyanocobalamin (vit B-12) 1,000 mcg/mL injection solution RxNorm: 018186 1Milliliter 01/12/2018 No longer Active cyanocobalamin (vit B-12) 1,000 mcg/mL injection solution RxNorm: 673144 Milliliter 09/15/2017 No longer Active cyanocobalamin (vit B-12) 1,000 mcg/mL injection solution RxNorm: 737483 1Milliliter 08/17/2017 No longer Active cyanocobalamin (vit B-12) 1,000 mcg/mL injection solution RxNorm: 905691 1Milliliter 07/19/2017 No longer Active cyanocobalamin (vit B-12) 1,000 mcg/mL injection solution RxNorm: 599164 1Milliliter 05/19/2017 No longer Active cyanocobalamin (vit B-12) 1,000 mcg/mL injection solution RxNorm: 897916 1Milliliter 04/06/2017 No longer Active cyanocobalamin (vit B-12) 1,000 mcg/mL injection solution RxNorm: 291170 Milliliter 01/04/2017 No longer Active cyanocobalamin (vit B-12) 1,000 mcg/mL injection solution RxNorm: 836166 1Milliliter 12/10/2016 No longer Active cyanocobalamin (vit B-12) 1,000 mcg/mL injection solution RxNorm: 588777 Milliliter 10/13/2016 No longer Active cyanocobalamin (vit B-12) 1,000 mcg/mL injection solution RxNorm: 258382 1Milliliter 09/03/2016 No longer Active cyanocobalamin (vit B-12) 1,000 mcg/mL injection solution RxNorm: 997835 Milliliter 07/29/2016 No longer Active cyanocobalamin (vit B-12) 1,000 mcg/mL injection solution RxNorm: 232060 1Milliliter 06/03/2016 No longer Active cyanocobalamin (vit B-12) 1,000 mcg/mL injection solution RxNorm: 786076 Milliliter 09/15/2015 No longer Active cyanocobalamin (vit B-12) 1,000 mcg/mL injection solution RxNorm: 950425 Milliliter 09/08/2015 No longer Active cyanocobalamin (vit B-12) 1,000 mcg/mL injection solution RxNorm: 819874 Milliliter 09/01/2015 No longer Active cyanocobalamin (vit B-12) 1,000 mcg/mL injection solution RxNorm: 380218 Milliliter 08/25/2015 No longer Active Immunizations Vaccine Codes Date Status Influenza CVX: 141 04/28/2018 completed Influenza CVX: 141 05/18/2017 completed Pneumococcal (Adult) CVX: 133 04/22/2016 completed Influenza CVX: 141 05/07/2015 completed Assessments Condition Codes Effective Dates Hypothyroidism, unspecified ICD-10: E03.9 ICD-9: 244.9 05/15/2018 [...] For Visit Effective Dates Notes diabetes mellitus 05/15/2018 diabetes mellitus 01/12/2018 lower [...] Item Item Code Result Date Free T4 [id number] FREE T4 1.21 ng/dL 05/15/2018 Tsh Ord6 TSH (3rd IS) 0.97 uIU/mL 05/15/2018 Comp Metabolic Xvl293 NA 142 mEq/L 05/15/2018 Comp Metabolic Pvf201 K 4.0 mEq/L 05/15/2018 Comp Metabolic Mbw617 CL 107 mEq/L 05/15/2018 Comp Metabolic Wca168 CO2 28.0 mEq/L 05/15/2018 Comp Metabolic Xri368 ANION GAP 11 05/15/2018 Comp Metabolic Uxg732 GLUCOSE 211 mg/dL 05/15/2018 Comp Metabolic Jvs765 Creat 0.9 mg/dL 05/15/2018 Comp Metabolic Cjm985 eGFR 61 ml/min/1.73m2 05/15/2018 Comp Metabolic Haq410 BUN 21 mg/dL 05/15/2018 Comp Metabolic Ptf053 B/C Ratio 22.6 Ratio 05/15/2018 Comp Metabolic Utq025 CALCIUM 9.1 mg/dL 05/15/2018 Comp Metabolic Rxk331 ALK PHOS 85 U/L 05/15/2018 Comp Metabolic Yfc104 AST(SGOT) 36 U/L 05/15/2018 Comp Metabolic Rca773 ALT(SGPT) 19 U/L 05/15/2018 Comp Metabolic Cqx037 BILI T 0.6 mg/dL 05/15/2018 Comp Metabolic Ckm535 ALBUMIN 3.8 g/dL 05/15/2018 Comp Metabolic Sow801 TPRO 6.2 g/dL 05/15/2018 Comp Metabolic Jtn481 GLOB 2.4 g/dL 05/15/2018 Comp Metabolic Kid979 A/G Ratio 1.6 Ratio 05/15/2018 Comp Metabolic Jlr690 Osmo 292 mOsmo 05/15/2018 %Hba1C Pum053 % HbA1c 65213-9 7.8 % 05/15/2018 %Hba1C Wen605 Gluc Ave 177 mg/dL 05/15/2018 Comp Metabolic Yra947 NA 139 mEq/L 11/28/2017 Comp Metabolic Aru347 K 4.1 mEq/L 11/28/2017 Comp Metabolic Pqd805 CL 105 mEq/L 11/28/2017 Comp Metabolic Jsz372 CO2 26.0 mEq/L 11/28/2017 Comp Metabolic Bhn096 ANION GAP 12 11/28/2017 Comp Metabolic Bay422 GLUCOSE 132 mg/dL 11/28/2017 Comp Metabolic Eem745 Creat 0.9 mg/dL 11/28/2017 Comp Metabolic Pbn611 eGFR 66 ml/min/1.73m2 11/28/2017 Comp Metabolic Jbh855 BUN 17 mg/dL 11/28/2017 Comp Metabolic Zmo108 B/C Ratio 19.5 Ratio 11/28/2017 Comp Metabolic Fcu715 CALCIUM 9.1 mg/dL 11/28/2017 Comp Metabolic Hhm350 ALK PHOS 78 U/L 11/28/2017 Comp Metabolic Zxq026 AST(SGOT) 35 U/L 11/28/2017 Comp Metabolic Nju522 ALT(SGPT) 17 U/L 11/28/2017 Comp Metabolic Miv345 BILI T 0.6 mg/dL 11/28/2017 Comp Metabolic Blf003 ALBUMIN 3.9 g/dL 11/28/2017 Comp Metabolic Uub198 TPRO 6.4 g/dL 11/28/2017 Comp Metabolic Cez704 GLOB 2.5 g/dL 11/28/2017 Comp Metabolic Jim803 A/G Ratio 1.6 Ratio 11/28/2017 Comp Metabolic Zfc759 Osmo 281 mOsmo 11/28/2017 Tsh Ord6 TSH (3rd IS) 1.14 uIU/mL 11/28/2017 Free T4 Uoy394 FREE T4 1.05 ng/dL 11/28/2017 %Hba1C Sxm871 % HbA1c 56237-9 7.7 % 11/25/2017 %Hba1C Lic746 Gluc Ave 174 mg/dL 11/25/2017 Cbc With [...] 39.8 % 11/25/2017 Cbc With Differential Ord2 Nye% 10.2 % 11/25/2017 Cbc With Differential Ord2 [...] 2.56 K/ul 11/25/2017 Cbc With Differential Ord2 Nye ABS# 0.7 K/ul 11/25/2017 Cbc With Differential [...] 20.4 % 05/19/2017 Cbc With Differential Ord2 Nye% 6.8 % 05/19/2017 Cbc With Differential Ord2 [...] 1.64 K/ul 05/19/2017 Cbc With Differential Ord2 Nye ABS# 0.6 K/ul 05/19/2017 Cbc With Differential Ord2 Eos ABS# 0.2 K/ul 05/19/2017 Cbc With Differential Ord2 Baso ABS# 0.0 K/ul 05/19/2017 B12 Ubo347 B12 >1500.00 pg/ml 05/19/2017 Free T4 Efh781 FREE T4 1.10 ng/dL 05/19/2017 %Hba1C Ryv742 % HbA1c 86368-8 6.8 % 05/19/2017 %Hba1C Qpw109 Gluc Ave 148 mg/dL 05/19/2017 Tsh Ord6 hTSH II 1.73 uIU/mL 05/19/2017 Comp Metabolic Jli437 NA 140 mEq/L 05/19/2017 Comp Metabolic Gdh180 K 3.8 mEq/L 05/19/2017 Comp Metabolic Eez790 CL 108 mEq/L 05/19/2017 Comp Metabolic Lld046 CO2 21.0 mEq/L 05/19/2017 Comp Metabolic Ofg956 ANION GAP 15 05/19/2017 Comp Metabolic Ads490 GLUCOSE 207 mg/dL 05/19/2017 Comp Metabolic Dhj411 Creat 1.0 mg/dL 05/19/2017 Comp Metabolic Muz149 eGFR 55 ml/min/1.73m2 05/19/2017 Comp Metabolic Veu404 BUN 21 mg/dL 05/19/2017 Comp Metabolic Gba594 B/C Ratio 20.4 Ratio 05/19/2017 Comp Metabolic Xoi213 CALCIUM 9.1 mg/dL 05/19/2017 Comp Metabolic Zpt372 ALK PHOS 74 U/L 05/19/2017 Comp Metabolic Bwg138 AST(SGOT) 32 U/L 05/19/2017 Comp Metabolic Xyw054 ALT(SGPT) 15 U/L 05/19/2017 Comp Metabolic Ygk826 BILI T 0.6 mg/dL 05/19/2017 Comp Metabolic Rkh139 ALBUMIN 3.9 g/dL 05/19/2017 Comp Metabolic Ojh197 TPRO 6.2 g/dL 05/19/2017 Comp Metabolic Fyj684 GLOB 2.3 g/dL 05/19/2017 Comp Metabolic Uvz892 A/G Ratio 1.6 Ratio 05/19/2017 Comp Metabolic Uzr644 Osmo 288 mOsmo 05/19/2017 Cbc With Differential [...] 29.3 pg 12/10/2016 Cbc With Differential Ord2 Nye% 7.1 % 12/10/2016 Cbc With Differential Ord2 [...] 2.50 K/ul 12/10/2016 Cbc With Differential Ord2 Nye ABS# 0.5 K/ul 12/10/2016 Cbc With Differential Ord2 Eos ABS# 0.1 K/ul 12/10/2016 Cbc With Differential Ord2 Baso ABS# 0.0 K/ul 12/10/2016 B12 Pml049 B12 222.00 pg/ml 12/10/2016 %Hba1C Dur532 % HbA1c 04380-0 7.5 % 11/16/2016 %Hba1C Xaw054 Gluc Ave 169 mg/dL 11/16/2016 Free T4 Udm498 FREE T4 1.03 ng/dL 11/16/2016 Comp Metabolic Fek498 NA 138 mEq/L 11/16/2016 Comp Metabolic Gkr539 K 3.8 mEq/L 11/16/2016 Comp Metabolic Xaj668 CL 103 mEq/L 11/16/2016 Comp Metabolic Mcz230 CO2 26.0 mEq/L 11/16/2016 Comp Metabolic Hch345 ANION GAP 13 11/16/2016 Comp Metabolic Shl321 GLUCOSE 235 mg/dL 11/16/2016 Comp Metabolic Wot121 Creat 0.9 mg/dL 11/16/2016 Comp Metabolic Jwg890 eGFR 62 ml/min/1.73m2 11/16/2016 Comp Metabolic Rfa557 BUN 20 mg/dL 11/16/2016 Comp Metabolic Tih629 B/C Ratio 21.7 Ratio 11/16/2016 Comp Metabolic Lxe397 CALCIUM 8.9 mg/dL 11/16/2016 Comp Metabolic Etw583 ALK PHOS 75 U/L 11/16/2016 Comp Metabolic Nyl827 AST(SGOT) 30 U/L 11/16/2016 Comp Metabolic Ezq315 ALT(SGPT) 13 U/L 11/16/2016 Comp Metabolic Jeg925 BILI T 0.6 mg/dL 11/16/2016 Comp Metabolic Ffy909 ALBUMIN 3.8 g/dL 11/16/2016 Comp Metabolic Tko558 TPRO 6.8 g/dL 11/16/2016 Comp Metabolic Euj749 GLOB 3.1 g/dL 11/16/2016 Comp Metabolic Duh161 A/G Ratio 1.2 Ratio 11/16/2016 Comp Metabolic Une774 Osmo 286 mOsmo 11/16/2016 Tsh Ord6 hTSH II 2.50 uIU/mL 11/16/2016 Tsh Ord6 hTSH II 3.18 uIU/mL 05/21/2016 Lipid Ord30 CHOL 212 mg/dL 05/21/2016 Lipid Ord30 HDL 43.0 mg/dl 05/21/2016 Lipid Ord30 TRIG 164 mg/dL 05/21/2016 Lipid Ord30 LDL 136 mg/dL 05/21/2016 Lipid Ord30 C/HDL 4.9 Ratio 05/21/2016 B12 Wjf665 B12 159.00 pg/ml 05/21/2016 %Hba1C Cel433 % HbA1c 80586-3 7.5 % 05/21/2016 %Hba1C Rqr572 Gluc Ave 169 mg/dL 05/21/2016 Folate Ord36 Folate >23.80 ng/mL 05/21/2016 Free T4 Pzo667 FREE T4 1.03 ng/dL 05/21/2016 CHEM 14 9982980 AST 33 U/L 03/15/2016 CHEM 14 4670414 ALT 13 U/L 03/15/2016 CHEM 14 5439007 BUN 18 mg/dL 03/15/2016 CHEM 14 8724829 ALBUMIN 3.9 g/dL 03/15/2016 CHEM 14 9009896 CHLORIDE 105 mmol/L 03/15/2016 CHEM 14 3165730 Bili Total 0.4 mg/dL 03/15/2016 CHEM 14 4785532 ALK PHOS 60 U/L 03/15/2016 CHEM 14 6440596 SODIUM 138 mmol/L 03/15/2016 CHEM 14 8662433 CREATININE 0.99 mg/dL 03/15/2016 CHEM 14 5004426 CALCIUM 9.4 mg/dL 03/15/2016 CHEM 14 0235958 POTASSIUM 3.8 mmol/L 03/15/2016 CHEM 14 7736255 TOTAL PROTEIN 6.7 g/dL 03/15/2016 CHEM 14 6004932 GLUCOSE 109 mg/dL 03/15/2016 CHEM 14 4607470 Bicarbonate 27 mmol/L 03/15/2016 CHEM 14 0484195 AGAP 6 mmol/L 03/15/2016 GFR CALC 9515698 GFR Non Afr Amr 54 mL/min 03/15/2016 GFR CALC 9704432 GFR Afr Amr >60 mL/min 03/15/2016 B12 Mny390 B12 46.00 pg/ml 08/07/2015 Iron Ord72 Iron [...] Ord2 RDW 16.6 % 08/05/2015 Free T4 Esq505 FREE T4 1.33 ng/dL 08/05/2015 Comp Metabolic Gfs414 NA 137 mEq/L 08/05/2015 Comp Metabolic Lhe834 K 4.5 mEq/L 08/05/2015 Comp Metabolic Btr172 CL 104 mEq/L 08/05/2015 Comp Metabolic Pin310 CO2 26.0 mEq/L 08/05/2015 Comp Metabolic Axw023 ANION GAP 12 08/05/2015 Comp Metabolic Ofn966 GLUCOSE 146 mg/dL 08/05/2015 Comp Metabolic Hye579 Creat 1.0 mg/dL 08/05/2015 Comp Metabolic Pkh492 eGFR 56 ml/min/1.73m2 08/05/2015 Comp Metabolic Ktg083 BUN 23 mg/dL 08/05/2015 Comp Metabolic Hor657 B/C Ratio 22.8 Ratio 08/05/2015 Comp Metabolic Zqg417 CALCIUM 9.3 mg/dL 08/05/2015 Comp Metabolic Vtn785 ALK PHOS 71 U/L 08/05/2015 Comp Metabolic Mbj201 AST(SGOT) 33 U/L 08/05/2015 Comp Metabolic Byi384 ALT(SGPT) 15 U/L 08/05/2015 Comp Metabolic Ode937 BILI T 0.6 mg/dL 08/05/2015 Comp Metabolic Ggf876 ALBUMIN 3.9 g/dL 08/05/2015 Comp Metabolic Kvy514 TPRO 6.5 g/dL 08/05/2015 Comp Metabolic Ekv392 GLOB 2.6 g/dL 08/05/2015 Comp Metabolic Ect734 A/G Ratio 1.5 Ratio 08/05/2015 Comp Metabolic Efo478 Osmo 280 mOsmo 08/05/2015 Tsh Ord6 hTSH II 0.36 uIU/mL 08/05/2015 %Hba1C Vtx378 % HbA1c 10777-6 8.1 % 08/05/2015 %Hba1C Zfj053 Gluc Ave 186 mg/dL 08/05/2015 Free T4 Rpe429 FREE T4 0.91 ng/dL 04/11/2015 %Hba1C Apj005 % HbA1c 46547-9 8.3 % 04/10/2015 %Hba1C Hzo579 Gluc Ave 192 mg/dL 04/10/2015 Cbc With [...] Ord2 RDW 15.8 % 04/10/2015 Comp Metabolic Aaf190 NA 134 mEq/L 04/10/2015 Comp Metabolic Zpn555 K 4.1 mEq/L 04/10/2015 Comp Metabolic Twx327 CL 105 mEq/L 04/10/2015 Comp Metabolic Vdr722 CO2 26.0 mEq/L 04/10/2015 Comp Metabolic Wlw293 ANION GAP 7 04/10/2015 Comp Metabolic Agd041 GLUCOSE 126 mg/dL 04/10/2015 Comp Metabolic Noj650 Creat 1.0 mg/dL 04/10/2015 Comp Metabolic Lzf913 eGFR 58 ml/min/1.73m2 04/10/2015 Comp Metabolic Yyy823 BUN 29 mg/dL 04/10/2015 Comp Metabolic Zza284 B/C Ratio 29.6 Ratio 04/10/2015 Comp Metabolic Ydc266 CALCIUM 9.3 mg/dL 04/10/2015 Comp Metabolic Bfp171 ALK PHOS 63 U/L 04/10/2015 Comp Metabolic Rby142 AST(SGOT) 31 U/L 04/10/2015 Comp Metabolic Xkr539 ALT(SGPT) 14 U/L 04/10/2015 Comp Metabolic Ija121 BILI T 0.6 mg/dL 04/10/2015 Comp Metabolic Lcf727 ALBUMIN 3.9 g/dL 04/10/2015 Comp Metabolic Jbg885 TPRO 6.3 g/dL 04/10/2015 Comp Metabolic Lya796 GLOB 2.4 g/dL 04/10/2015 Comp Metabolic Wcw748 A/G Ratio 1.6 Ratio 04/10/2015 Comp Metabolic Fql375 Osmo 276 mOsmo 04/10/2015 Tsh Ord6 hTSH [...] lips 04/03/2015 None Full Exam - General 1995 Ears/Nose/Throat lips/teeth/gingiva Overall: normal dentition 04/03/2015 None [...] impaction 01/02/2015 None Procedures Procedure Codes Date THER/PROPH/DIAG INJ SC/IM CPT-4: 44185 01/12/2018 VITAMIN B12 INJECTION CPT-4: J3420 01/12/2018 THER/PROPH/DIAG INJ SC/IM CPT-4: 30293 09/15/2017 VITAMIN B12 INJECTION CPT-4: J3420 09/15/2017 THER/PROPH/DIAG INJ SC/IM CPT-4: 23068 08/17/2017 VITAMIN B12 INJECTION CPT-4: J3420 08/17/2017 THER/PROPH/DIAG INJ SC/IM CPT-4: 73285 07/19/2017 VITAMIN B12 INJECTION CPT-4: J3420 07/19/2017 THER/PROPH/DIAG INJ SC/IM CPT-4: 01395 05/19/2017 VITAMIN B12 INJECTION CPT-4: J3420 05/19/2017 THER/PROPH/DIAG INJ SC/IM CPT-4: 38927 04/06/2017 VITAMIN B12 INJECTION CPT-4: J3420 04/06/2017 THER/PROPH/DIAG INJ SC/IM CPT-4: 52097 01/04/2017 VITAMIN B12 INJECTION CPT-4: J3420 01/04/2017 THER/PROPH/DIAG INJ SC/IM CPT-4: 59690 12/10/2016 VITAMIN B12 INJECTION CPT-4: J3420 12/10/2016 THER/PROPH/DIAG INJ SC/IM CPT-4: 48327 10/13/2016 [facility] INJ NOS CPT-4: J3301 10/13/2016 THER/PROPH/DIAG INJ SC/IM CPT-4: 61843 09/03/2016 VITAMIN B12 INJECTION CPT-4: J3420 09/03/2016 THER/PROPH/DIAG INJ SC/IM CPT-4: 73628 07/29/2016 VITAMIN B12 INJECTION CPT-4: J3420 07/29/2016 THER/PROPH/DIAG INJ SC/IM CPT-4: 66250 06/03/2016 VITAMIN B12 INJECTION CPT-4: J3420 06/03/2016 PNEUMOCOCCAL VACC [address]: 32795432 CPT-4: 81995 04/22/2016 ADMIN PNEUMOCOCCAL VACCINE SNOMED CT: 82807540 CPT-4: G0009 04/22/2016 VITAMIN B12 INJECTION CPT-4: J3420 09/15/2015 THER/PROPH/DIAG INJ SC/IM CPT-4: 26897 09/15/2015 THER/PROPH/DIAG INJ SC/IM CPT-4: 64870 09/08/2015 VITAMIN B12 INJECTION CPT-4: J3420 09/08/2015 THER/PROPH/DIAG INJ SC/IM CPT-4: 46567 09/01/2015 VITAMIN B12 INJECTION CPT-4: J3420 09/01/2015 THER/PROPH/DIAG INJ SC/IM CPT-4: 42018 08/25/2015 VITAMIN B12 INJECTION CPT-4: J3420 08/25/2015 Vital Signs Date Vital 05/15/2018 Blood Pressure 1: 140/80 Code : 8480-6 BMI: 41.6 Code : 33559-4 Heart Rate 1 : 86 bpm Height: 4'11" SpO2: 92% Weight: 206 lbs 01/12/2018 Blood Pressure 1: 140/78 Code : 8480-6 BMI: 42.2 Code : 48939-8 Heart Rate 1 : 73 bpm Height: 4'11" SpO2: 97% Weight: 209 lbs 11/25/2017 Blood Pressure 1: 140/68 Code : 8480-6 BMI: 42.2 Code : 23802-8 Heart Rate 1 : 76 bpm Height: 4'11" SpO2: 94% Weight: 209 lbs 09/15/2017 Blood Pressure 1: 146/67 Code : 8480-6 BMI: 42.2 Code : 11932-3 Heart Rate 1 : 69 bpm Height: 4'11" SpO2: 97% Weight: 209 lbs 08/17/2017 Blood Pressure 1: 144/70 Code : 8480-6 BMI: 41.8 Code : 96539-3 Heart Rate 1 : 63 bpm Height: 4'11" SpO2: 97% Weight: 207 lbs 07/19/2017 Blood Pressure 1: 142/74 Code : 8480-6 BMI: 41.4 Code : 27214-5 Heart Rate 1 : 71 bpm Height: 4'11" SpO2: 96% Weight: 205 lbs 05/19/2017 Blood Pressure 1: 148/76 Code : 8480-6 BMI: 42.8 Code : 02849-9 Heart Rate 1 : 72 bpm Height: 4'11" SpO2: 94% Weight: 212 lbs 02/15/2017 Blood Pressure 1: 154/70 Code : 8480-6 BMI: 42.5 Code : 13996-9 Heart Rate 1 : 68 bpm Height: 4'11" SpO2: 97% Weight: 210 lbs 8 oz 11/16/2016 Blood Pressure 1: 142/78 Code : 8480-6 BMI: 41.6 Code : 86236-9 Heart Rate 1 : 68 bpm Height: 4'11" SpO2: 95% Temperature: 36.0 (C) / 96.8 (F) Weight: 206 lbs 08/19/2016 Blood Pressure 1: 120/74 Code : 8480-6 BMI: 41.6 Code : 58095-0 Heart Rate 1 : 75 bpm Height: 4'11" SpO2: 95% Weight: 206 lbs 07/15/2016 Blood Pressure 1: 140/76 Code : 8480-6 BMI: 42.0 Code : 96554-8 Heart Rate 1 : 76 bpm Height: 4'11" SpO2: 96% Weight: 208 lbs 06/03/2016 Blood Pressure 1: 130/78 Code : 8480-6 BMI: 42.8 Code : 22988-0 Heart Rate 1 : 72 bpm Height: 4'11" SpO2: 98% Weight: 212 lbs 04/22/2016 Blood Pressure 1: 142/84 Code : 8480-6 BMI: 41.8 Code : 99697-7 Heart Rate 1 : 86 bpm Height: 4'11" SpO2: 92% Weight: 207 lbs 01/22/2016 Blood Pressure 1: 162/64 Code : 8480-6 BMI: 41.2 Code : 09300-4 Heart Rate 1 : 70 bpm Height: 4'11" SpO2: 97% Weight: 204 lbs 10/23/2015 Blood Pressure 1: 130/70 Code : 8480-6 BMI: 40.4 Code : 98016-9 Heart Rate 1 : 72 bpm Height: 4'11" SpO2: 95% Weight: 200 lbs 09/12/2015 Blood Pressure 1: 142/62 Code : 8480-6 BMI: 39.4 Code : 35110-9 Heart Rate 1 : 63 bpm Height: 4'11" SpO2: 96% Weight: 195 lbs 08/05/2015 Blood Pressure 1: 144/60 Code : 8480-6 BMI: 41.0 Code : 99354-8 Heart Rate 1 : 92 bpm Height: 4'11" SpO2: 90% SpO2: 97% Weight: 203 lbs 04/03/2015 Blood Pressure 1: 142/68 Code : 8480-6 BMI: 40.6 Code : 99416-0 Heart Rate 1 : 77 bpm Height: 4'11" SpO2: 95% Weight: 201 lbs 01/30/2015 Blood Pressure 1: 150/72 Code : 8480-6 BMI: 40.2 Code : 66815-8 Heart Rate 1 : 64 bpm Height: 4'11" Weight: 199 lbs 01/02/2015 Blood Pressure 1: 136/72 Code : 8480-6 BMI: 39.8 Code : 40544-6 Heart Rate 1 : 68 bpm Height: 4'11" Weight: 197 lbs Functional Status No Functional Status data History of Present Illness Symptom Name Status Result Effective Date Notes diabetes mellitus Quality insulin dependent 05/15/2018 None [...] data Encounters Encounter Performer Location Codes Date ([id number]) 68604 EST. PATIENT, LEVEL IV Diagnosis: Type 2 diabetes mellitus with hyperglycemia[ICD10: E11.65] Diagnosis: Essential (primary) hypertension[ICD10: I10] Diagnosis: Hypothyroidism, unspecified[ICD10: E03.9] Giselle Knox MD, [facility] CPT-4: 86437 05/15/2018 [id number]) 72120 EST. PATIENT, LEVEL IV Diagnosis: Essential (primary) hypertension[ICD10: I10] Diagnosis: Type 2 diabetes mellitus with hyperglycemia[ICD10: E11.65] Diagnosis: Hypothyroidism, unspecified[ICD10: E03.9] Diagnosis: Spinal stenosis, lumbar region without neurogenic claudication[ICD10 : M48.061] Diagnosis: Vitamin B12 deficiency anemia due to intrinsic factor deficiency[ ICD10: D51.0] Giselle Knox MD, [facility] CPT-4: 71944 01/12/2018 [id number]) 17110 EST. PATIENT, LEVEL IV Diagnosis: Varicose veins of bilateral lower extremities with pain[ICD10: I83.813] Diagnosis: Low back pain[ICD10: M54.5] Diagnosis: Hypothyroidism, unspecified[ICD10: E03.9] Diagnosis: Type 2 diabetes mellitus with hyperglycemia[ICD10: E11.65] Giselle Knox MD, [facility] CPT-4: 21912 11/25/2017 21740 EST. PATIENT, LEVEL IV Diagnosis: Localized edema[ICD10: R60.0] Diagnosis: Vitamin B12 deficiency anemia due to intrinsic factor deficiency[ ICD10: D51.0] Chasity Knox MD, [facility] CPT-4: 09651 31219 EST. PATIENT, LEVEL IV Diagnosis: Essential (primary) hypertension[ICD10: I10] Diagnosis: Type 2 diabetes mellitus with hyperglycemia[ICD10: E11.65] Diagnosis: Vitamin B12 deficiency anemia due to intrinsic factor deficiency[ ICD10: D51.0] Chasity Knox MD, [facility] CPT-4: 24516 97529 EST. PATIENT, LEVEL IV Diagnosis: Type 2 diabetes mellitus with hyperglycemia[ICD10: E11.65] Diagnosis: Essential (primary) hypertension[ICD10: I10] Diagnosis: Vitamin B12 deficiency anemia due to intrinsic factor deficiency[ ICD10: D51.0] Chasity Knox MD, [facility] CPT-4: 19650 ([id number]) 51412 EST. PATIENT, LEVEL IV Diagnosis: Essential (primary) hypertension[ICD10: I10] Diagnosis: Type 2 diabetes mellitus with hyperglycemia[ICD10: E11.65] Diagnosis: Hypothyroidism, unspecified[ICD10: E03.9] Diagnosis: Vitamin B12 deficiency anemia due to intrinsic factor deficiency[ ICD10: D51.0] Diagnosis: Chronic kidney disease, stage 3 (moderate)[ICD10: N18.3] Giselle Knox MD , [facility] CPT-4: 90492 05/19/2017 ([id number]) 47082 EST. PATIENT, LEVEL IV Diagnosis: Essential (primary) hypertension[ICD10: I10] Diagnosis: Type 2 diabetes mellitus with hyperglycemia[ICD10: E11.65] Diagnosis: Hypothyroidism, unspecified[ICD10: E03.9] Giselle Knox MD, [facility] CPT-4: 39265 02/15/2017 ([id number] 79355 EST. PATIENT, LEVEL IV Diagnosis: Type 2 diabetes mellitus with hyperglycemia[ICD10: E11.65] Diagnosis: Cough[ICD10: R05] Diagnosis: Acute upper respiratory infection, unspecified[ICD10: J06.9] Diagnosis: Hypothyroidism, unspecified[ICD10: E03.9] Diagnosis: Chronic kidney disease, stage 3 (moderate)[ICD10: N18.3] Giselle Knox MD , [facility] CPT-4: 11414 11/16/2016 ([id number]) 94617 EST. PATIENT, LEVEL IV Diagnosis: Type 2 diabetes mellitus with hyperglycemia[ICD10: E11.65] Diagnosis: Hypothyroidism, unspecified[ICD10: E03.9] Diagnosis: Essential (primary) hypertension[ICD10: I10] Giselle Knox MD, [facility] CPT-4: 60713 08/19/2016 ([id number]) 49687 EST. PATIENT, LEVEL III Diagnosis: Type 2 diabetes mellitus with hyperglycemia[ICD10: E11.65] Giselle Knox MD, [facility] CPT-4: 79611 07/15/2016 ([id number]) 15645 EST. PATIENT, LEVEL IV Diagnosis: Type 2 diabetes mellitus with hyperglycemia[ICD10: E11.65] Diagnosis: Atrophy of thyroid (acquired)[ICD10: E03.4] Diagnosis: Vitamin B12 deficiency anemia due to intrinsic factor deficiency[ ICD10: D51.0] Diagnosis: Chronic kidney disease, stage 3 (moderate)[ICD10: N18.3] Diagnosis: Essential (primary) hypertension[ICD10: I10] Jennifer Knox MD, [facility] CPT-4: 00647 06/03/2016 ([id number]) 03885 EST. PATIENT, LEVEL III Diagnosis: Type 2 diabetes mellitus with hyperglycemia[ICD10: E11.65] Diagnosis: Essential (primary) hypertension[ICD10: I10] Diagnosis: Chronic kidney disease, stage 3 (moderate)[ICD10: N18.3] Diagnosis: VACCIN STREP PNEUMONIAE[ICD10: Z23] Giselle Knox MD, [facility] CPT-4: 42595 04/22/2016 87319 EST. PATIENT, LEVEL IV Diagnosis: Type 2 diabetes mellitus with hyperglycemia[ICD10: E11.65] Diagnosis: Essential (primary) hypertension[ICD10: I10] Chasity Knox MD, [facility] CPT-4: 47810 01/22/2016 ([id number]) 61798 EST. PATIENT, LEVEL III Diagnosis: Type 2 diabetes mellitus with hyperglycemia[ICD10: E11.65] Diagnosis: Essential (primary) hypertension[ICD10: I10] Giselle Knox MD, [facility] CPT-4: 86544 10/23/2015 53461 EST. PATIENT, LEVEL IV Diagnosis: Type 2 diabetes mellitus with hyperglycemia[ICD10: E11.65] Diagnosis: Vitamin B12 deficiency anemia due to intrinsic factor deficiency[ ICD10: D51.0] Diagnosis: Essential (primary) hypertension[ICD10: I10] Chasity Knox MD, [facility] CPT-4: 51153 09/12/2015 ([id number]) 20431 EST. PATIENT, LEVEL IV Diagnosis: Essential (primary) hypertension[ICD10: I10] Diagnosis: Type 2 diabetes mellitus with hyperglycemia[ICD10: E11.65] Diagnosis: Hypothyroidism, unspecified[ICD10: E03.9] Giselle Knox MD, [facility] CPT-4: 33096 08/05/2015 ([id number]) 36834 EST. PATIENT, LEVEL III Diagnosis: ESSENTIAL HYPERTENSION[ICD9: 401.9] Diagnosis: DIABETES TYPE II[ICD9: 250.00] Jennifer Knox MD, [facility] CPT- 4: 20528 04/03/2015 ([id number]) 50191 EST. PATIENT, LEVEL IV Diagnosis: ESSENTIAL HYPERTENSION[ICD9: 401.9] Diagnosis: DIABETES TYPE II[ICD9: 250.00] Diagnosis: Hypothyroidism[ICD9: 244.9] [facility] CPT-4: 59494 01/30/2015 ([id number]) OFFICE VISIT, NEW - LEVEL 4 Diagnosis: ESSENTIAL HYPERTENSION[ICD9: 401.9] Diagnosis: DIABETES TYPE II[ICD9: 250.00] Diagnosis: Impacted cerumen[ICD9: 380.4] [facility] CPT- 4: 90619 01/02/2015 Plan of Care Planned Activity Notes Codes Status Date Visit Plan: Diabetes Mellitus - I have [...] based on previous levels of control. 05/15/2018 Patient Education: Patient Medication Summary Completed [...] evaluation-recommend PT 01/12/2018 Appointment: Giselle Mccoy WPtel: [address] [place], [place] [phone] [place] (30 min) Complex 01/12/2018 Patient Education: Patient Medication Summary Completed 01/12/2018 Care Plan: Referral Order SNOMED-CT : [id number] Pending 01/12/2018 Visit Plan: Varicose veins-rx for compression stockings provided and instructed on use Low back pain-recommend xray lumbar spine Hypothyroidism-check labs DM-check Hgb A1c 11/25/2017 Appointment: [phone] [place] (30 min) Complex 11/25/2017 Patient Education: Patient Medication Summary Completed 11/25/2017 Care Plan: X-RAY EXAM L-S SPINE 2/ VWS LOINC : 78466-3 Pending 11/25/2017 Visit Plan: Edema - Left [...] concerns. 09/15/2017 Appointment: [facility] [place] [facility] [phone] [phone] [place] (30 min) Complex 09/15/2017 Patient [...] glucose control. 08/17/2017 Appointment: Chas[facility] [place] [facility]el[phone] (15 min) Moderate 08/17/2017 Patient Education: Patient [...] at home. 07/19/2017 App[facility]ment: [facility] [place] [facility] [phone] [phone] (15 min) Moderate 07/19/2017 Patient Education: Patient Medication Summary Completed 07/19/2017 [facility] [phone] [phone] ([facility] min) Moderate 06/13/2017 Visit Plan: [...] to medications. 05/19/2017 Appointment: [facility] [phone] [phone] (30 min) Complex 05/19/2017 Patient Education: [...] control. 02/15/2017 Appointment: [facility] [phone] [phone] (15 min) Moderate 02/15/2017 Patient Education: [...] labs today 11/16/2016 Appointment: [facility] [phone] [phone] (15 min) Moderate 11/16/2016 Patient Education: Patient [...] control. 08/19/2016 Appointment: Giselle Mccoy WPtel: [phone] [phone] (15 min) Moderate 08/19/2016 Patient Education: Patient Medication Summary Completed 08/19/2016 Patient Education: Obesity Completed 08/19/2016 Care Plan: Tsh Cancelled 08/19/2016 Care Plan: %Hba1C LOINC : 83252-5 Cancelled 08/19/2016 Care Plan: Lipid Cancelled 08/19/2016 Care Plan: Free T4 patient coming back next week Cancelled 08/19/2016 Appointment: Injection 07/29/2016 Patient Education: Patient Medication Summary Completed 07/29/2016 Appointment: Giselle Mccoy WPtel: [phone] [phone] (30 min) Complex 07/22/2016 Visit Plan: Diabetes-having hypoglycemia in the mornings- insulin adjusted-patient and verbalized understanding of plan. Follow up in 1 month-call sooner if still having low blood sugars. Sinus congestion- start claritin 07/15/2016 Appointment: Giselle Mccoy WPtel: [phone] [phone] (30 min) Complex 07/15/2016 Patient Education: [...] on previous levels of control. 06/03/2016 Appointment: Lis[facility]Jennifer [facility] [phone] [phone] [place] (15 min) Moderate 06/03/2016 Patient Education: [...] 1 MONTH 04/22/2016 Appointment: Giselle Mccoy WPtel: [address] [place], [place] [phone] (15 min) Moderate 04/22/2016 Patient Education: Patient [...] if needed. 01/02/2015 Appointment: Jennifer Knox [facility]el[phone] [place] ([place] New Patient 01/02/2015 Patient Education: Patient Medication Summary Completed 01/02/2015 Patient Education: Hypertension Completed 01/02/2015 Referral: Tom Pike Referral Appointment Requested Instructions Comment . Diabetes Mellitus - I have recommended [...] spine Hypothyroidism-check labs DM-check Hgb A1c . Edema - Left greater than right [...] ER with any acute changes or concerns. Increase morning insulin to 18 units 'Decrease [...] Dr Pike/Dr Lozada for evaluation-recommend PT . Hypertension - well controlled - continue [...] REPEAT HGB A1C IN 1 MONTH . Diabetes Mellitus - Uncontrolled - per [...] of control. Chronic renal disease-check labs today BRING YOUR BLOOD SUGAR LOG TO YOUR [...] months based on previous levels of control. CHECK LABS WITH NEXT APPOINTMENT . Hypertension [...] having low blood sugars. Sinus congestion-start claritin COME BACK NEXT WEEK FOR BLOOD WORK [...]
[2018-06-17 10:45] LABS: BILIRUBIN,URINE NEGATIVE (NEGATIVE); CLARITY,URINE SLIGHTLY CLOUDY; COLOR,URINE YELLOW; GLUCOSE, URINE (UA) NEGATIVE (NEGATIVE); KETONES,URINE NEGATIVE (NEGATIVE); LEUKOCYTE ESTERASE ,URINE 1+ (NEGATIVE); NITRITE,URINE NEGATIVE (NEGATIVE); PH,URINE 5 (5-9); PROTEIN,URINE 3+ (NEGATIVE); UROBILINOGEN,URINE NORMAL (NORMAL)
--- OUTSIDE RECORDS SUMMARY | 2018-06-17 10:45 | XMS REPORT | CCD ---
Author Author Jennifer [facility] Organization [facility] Address [address] [place] [address] Phone Care Team Providers Care [employer] Automatic Name Role Phone PP Unavailable CCM Unavailable Summary Purpose Interface Exchange Insurance Providers Payer name Policy type / Coverage type Covered alliance party ID Effective Begin Date Effective End Date [facility] Commercial Insurance [id number] Unknown Family history Runs in the family [...] U-100 Insulin 100 unit/mL subcutaneous suspension RxNorm: 165566 18 Unit(s) SQ QAM 05/15/2018 No Stop Date Active levothyroxine 100 mcg tablet RxNorm: 886354 1 Tablet(s) PO daily 05/11/2018 09/07/2018 Active carvedilol 12.5 mg tablet RxNorm: 313635 TAKE ONE TABLET BY MOUTH TWICE A DAY 05/05/2018 07/28/2019 Active losartan 100 mg tablet RxNorm: 354067 TAKE ONE TABLET BY MOUTH DAILY 03/24/2018 06/10/2020 Active terazosin 2 mg capsule RxNorm: 075773 TAKE ONE CAPSULE BY MOUTH DAILY 03/07/2018 03/01/2019 Active Lantus Solostar U-100 Insulin 100 unit/mL (3 mL) subcutaneous pen RxNorm: 641431 Unit(s) INJECT 24 UNITS UNDER THE SKIN EVERY NIGHT AT BEDTIME 01/12/2018 No Stop Date Active cyanocobalamin (vit B-12) 1,000 mcg/mL injection solution RxNorm: 230010 1 Milliliter(s) Inj 01/12/2018 01/12/2018 Inactive Humulin 70/30 U-100 Insulin 100 unit/mL subcutaneous suspension RxNorm: 314159 INJECT 18 UNITS UNDER THE SKIN EVERY MORNING 11/14/2017 03/05/2018 Inactive carvedilol 12.5 mg tablet RxNorm: 784613 TAKE ONE TABLET BY MOUTH TWICE A DAY 11/07/2017 05/04/2018 Inactive cyanocobalamin (vit B-12) 1,000 mcg/mL injection solution RxNorm: 903233 Milliliter(s) Inj 09/15/2017 09/15/2017 Inactive terazosin 2 mg capsule RxNorm: 641783 Capsule(s) TAKE ONE CAPSULE BY MOUTH DAILY 09/07/2017 03/05/2018 Inactive Lantus Solostar 100 unit/mL (3 mL) subcutaneous insulin pen RxNorm: 060017 INJECT 35 UNITS UNDER THE SKIN EVERY NIGHT AT BEDTIME 201701/11/2018 Inactive One Touch Test strips RxNorm: 1 test Miscellaneous BID 201708/16/2018 Active Contour Test Strips RxNorm: TEST BLOOD SUGAR TWO TIMES A DAY E11.65 08/22/2017 02/22/2019 Active Tamiflu 75 mg capsule RxNorm: 741254 1 Capsule(s) PO daily 08/1708/16/2017 Inactive Tamiflu 75 mg capsule RxNorm: 345225 1 Capsule(s) PO daily 08/1708/26/2017 Inactive cyanocobalamin (vit B-12) 1,000 mcg/mL injection solution RxNorm: 402186 1 Milliliter(s) Inj 08/17/2017 08/17/2017 Inactive carvedilol 12.5 mg tablet RxNorm: 847442 TAKE ONE TABLET BY MOUTH TWICE A DAY 08/10/2017 11/06/2017 Inactive cyanocobalamin (vit B-12) 1,000 mcg/mL injection solution RxNorm: 347480 1 Milliliter(s) Inj 07/19/2017 07/19/2017 Inactive Humulin 70/30 100 unit/mL subcutaneous suspension RxNorm: 349770 14 Unit(s) SQ QAM 07/06/2017 05/14/2018 Inactive Lantus Solostar 100 unit/mL (3 mL) subcutaneous insulin pen RxNorm: 114396 26 Unit(s) SQ QHS 07/06/2017 08/28/2017 Inactive losartan 100 mg tablet RxNorm: 490830 TAKE ONE TABLET BY MOUTH DAILY 06/07/2017 03/23/2018 Inactive Lantus Solostar 100 unit/mL (3 mL) subcutaneous insulin pen RxNorm: 430353 28 Unit(s) SQ QHS 05/19/2017 07/05/2017 Inactive cyanocobalamin (vit B-12) 1,000 mcg/mL injection solution RxNorm: 199116 1 Milliliter(s) Inj 05/19/2017 05/19/2017 Inactive terazosin 2 mg capsule RxNorm: 270267 TAKE ONE CAPSULE BY MOUTH DAILY 05/16/2017 09/06/2017 Inactive cyanocobalamin (vit B-12) 1,000 mcg/mL injection solution RxNorm: 563726 1 Milliliter(s) Inj 04/06/2017 04/06/2017 Inactive cyanocobalamin (vit B-12) 1,000 mcg/mL injection solution RxNorm: 717635 Milliliter(s) Inj 01/04/2017 01/04/2017 Inactive Humulin 70/30 U-100 Insulin 100 unit/mL subcutaneous suspension RxNorm: 935196 18 Unit(s) SQ QAM 12/22/20162016 Inactive cyanocobalamin (vit B-12) 1,000 mcg/mL injection solution RxNorm: 580826 1 Milliliter(s) Inj 12/10/2016 12/10/2016 Inactive Zithromax Z-Jose 250 mg tablet RxNorm: 889879 1 Tablet(s) PO UD 11/16/2016 11/20/2016 Inactive terazosin 2 mg capsule RxNorm: 063129 TAKE ONE CAPSULE BY MOUTH DAILY 11/08/2016 05/06/2017 Inactive Lantus Solostar 100 unit/mL (3 mL) subcutaneous insulin pen RxNorm: 133435 INJECT 35 UNITS UNDER THE SKIN EVERY NIGHT AT BEDTIME 201607/18/2017 Inactive cyanocobalamin (vit B-12) 1,000 mcg/mL injection solution RxNorm: 735326 Milliliter(s) Inj 10/13/2016 10/13/2016 Inactive cyanocobalamin (vit B-12) 1,000 mcg/mL injection solution RxNorm: 738319 1 Milliliter(s) Inj 09/03/2016 09/03/2016 Inactive Contour Test Strips RxNorm: TEST BLOOD SUGAR TWO TIMES A DAY E11.65 08/19/2016 08/21/2017 Inactive carvedilol 12.5 mg tablet RxNorm: 463730 TAKE ONE TABLET BY MOUTH TWICE A DAY 08/05/2016 01/01/2017 Inactive carvedilol 12.5 mg tablet RxNorm: 19990924 TAKE ONE TABLET BY MOUTH TWICE A DAY 08/05/2016 01/01/2017 Inactive carvedilol 12.5 mg tablet RxNorm: 915536 1 Tablet(s) PO BID 05/201701/30/2017 Inactive cyanocobalamin (vit B-12) 1,000 mcg/mL injection solution RxNorm: 571679 Milliliter(s) Inj 07/29/2016 07/29/2016 Inactive Lantus Solostar 100 unit/mL (3 mL) subcutaneous insulin pen RxNorm: 784342 30 Unit(s) SQ QHS 07/15/2016 05/18/2017 Inactive Humulin 70/30 100 unit/mL subcutaneous suspension RxNorm: 908470 18 Unit(s) SQ QAM 07/15/2016 12/21/2016 Inactive losartan 100 mg tablet RxNorm: 684271 TAKE ONE TABLET BY MOUTH DAILY 07/08/2016 06/02/2017 Inactive terazosin 2 mg capsule RxNorm: 346189 TAKE ONE CAPSULE BY MOUTH DAILY 06/10/2016 11/06/2016 Inactive cyanocobalamin (vit B-12) 1,000 mcg/mL injection solution RxNorm: 194790 1 Milliliter(s) Inj 06/03/2016 06/03/2016 Inactive Humulin 70/30 100 unit/mL subcutaneous suspension RxNorm: 755838 Unit(s) INJECT 10 UNITS UNDER THE SKIN 06/01/20162015 Inactive Request already responded to by other means (e.g. phone or fax) Humulin 70/30 100 unit/mL subcutaneous suspension RxNorm: 429599 INJECT 10 UNITS UNDER THE SKIN BEFORE MEALS 06/01/201601/2016 Inactive Request already responded to by other means (e.g. phone or fax) Lantus Solostar 100 unit/mL (3 mL) subcutaneous insulin pen RxNorm: 985987 35 Unit(s) SQ QHS 05/26/2016 07/14/2016 Inactive Humulin 70/30 100 unit/mL subcutaneous suspension RxNorm: 626025 10 Unit(s) SQ QAM 05/24/2016 10/02/2016 Inactive Humulin 70/30 100 unit/mL subcutaneous suspension RxNorm: 066626 21 Unit(s) SQ QAM 05/24/2016 05/23/2016 Inactive Lantus Solostar 100 unit/mL (3 mL) subcutaneous insulin pen RxNorm: 386764 32 Unit(s) SQ QHS 04/22/2016 05/25/2016 Inactive Humulin 70/30 100 unit/mL subcutaneous suspension RxNorm: 374698 21 Unit(s) SQ QAM 04/22/2016 05/24/2016 Inactive with breakfast hydrochlorothiazide 25 mg tablet RxNorm: 883143 TAKE ONE TABLET BY MOUTH DAILY 02/04/2016 02/16/2016 Inactive terazosin 2 mg capsule RxNorm: 518486 Capsule(s) TAKE ONE CAPSULE BY MOUTH DAILY. 12/01/2015 05/28/2016 Inactive Humulin 70/30 100 unit/mL subcutaneous suspension RxNorm: 277243 INJECT 10 UNITS UNDER THE SKIN BEFORE MEALS 11/06/2015 Inactive hydrochlorothiazide 25 mg tablet RxNorm: 406605 1 Tablet(s) PO daily 10/06/2015 02/02/2016 Inactive cyanocobalamin (vit B-12) 1,000 mcg/mL injection solution RxNorm: 687158 Milliliter(s) Inj 09/15/2015 09/15/2015 Inactive Humulin 70/30 100 unit/mL subcutaneous suspension RxNorm: 176577 INJECT 10 UNITS UNDER THE SKIN BEFORE MEALS 09/08/2015 Inactive cyanocobalamin (vit B-12) 1,000 mcg/mL injection solution RxNorm: 260890 Milliliter(s) Inj 09/08/2015 09/08/2015 Inactive terazosin 2 mg capsule RxNorm: 248725 TAKE ONE CAPSULE BY MOUTH DAILY. DISCONTINUE 5 MG CAPSULES 09/01/201511/28 Inactive cyanocobalamin (vit B-12) 1,000 mcg/mL injection solution RxNorm: 498849 Milliliter(s) Inj 09/01/2015 09/01/2015 Inactive cyanocobalamin (vit B-12) 1,000 mcg/mL injection solution RxNorm: 412807 Milliliter(s) Inj 08/25/2015 08/25/2015 Inactive levothyroxine 112 mcg tablet RxNorm: 203179 1 Tablet(s) PO daily 08/06/2015 02/14/2017 Inactive Lantus Solostar 100 unit/mL (3 mL) subcutaneous insulin pen RxNorm: 150759 35 Unit(s) SQ QHS 08/06/2015 04/21/2016 Inactive Humulin 70/30 100 unit/mL subcutaneous suspension RxNorm: 550330 20 Unit(s) SQ AC 08/05/2015 04/21/2016 Inactive with breakfast carvedilol 12.5 mg tablet RxNorm: 558798 1 Tablet(s) PO BID 06/201601/31/2016 Inactive Humulin 70/30 100 unit/mL subcutaneous suspension RxNorm: 965565 10 Unit(s) SQ AC 07/22/2015 08/04/2015 Inactive losartan 100 mg tablet RxNorm: 142959 TAKE ONE TABLET BY MOUTH DAILY 06/25/2015 06/18/2016 Inactive Lantus Solostar 100 unit/mL (3 mL) subcutaneous insulin pen RxNorm: 316150 30 Unit(s) SQ QHS 06/18/2015 08/05/2015 Inactive terazosin 2 mg capsule RxNorm: 883544 1 Capsule(s) PO daily 08/11/2015 Inactive DC the 5mg order terazosin 2 mg capsule RxNorm: 850443 1 Capsule(s) PO daily 04/13/2015 Inactive Synthroid 25 mcg tablet RxNorm: 558160 1 Tablet(s) PO daily 02/14/2017 Inactive Synthroid 25 mcg tablet RxNorm: 177702 1 Tablet(s) PO daily 04/10/2015 Inactive Lantus Solostar 100 unit/mL (3 mL) subcutaneous insulin pen RxNorm: 146017 30 Unit(s) SQ QHS 04/04/2015 06/17/2015 Inactive terazosin 5 mg tablet RxNorm: 552189 1 Tablet(s) PO daily 201404/13/2015 Inactive Lantus Solostar 100 unit/mL (3 mL) subcutaneous insulin pen RxNorm: 662818 25 Unit(s) SQ QHS 01/08/2015 04/03/2015 Inactive carvedilol 25 mg tablet RxNorm: 442423 1 Tablet(s) PO BID 01/0201/31/2015 Inactive terazosin 5 mg tablet RxNorm: 139932 1 Tablet(s) PO daily 201401/01/2015 Inactive levothyroxine 125 mcg tablet RxNorm: 857383 1 Tablet(s) PO daily 01/02/2015 01/31/2015 Inactive terazosin 5 mg tablet RxNorm: 462884 1/2 Tablet(s) PO daily 05/201501/31/2015 Inactive losartan 100 mg tablet RxNorm: 843671 1 Tablet(s) PO daily 08/201404/22/2015 Inactive losartan 100 mg tablet RxNorm: 396089 1 Tablet(s) PO daily 08/201412/23/2014 Inactive Contour Test Strips RxNorm: Miscellaneous test blood sugars BID 12/06/2014 12/05/2014 Inactive dx 250.00 Contour Test Strips RxNorm: Miscellaneous test blood sugars BID or UD 12/06/2014 06/23/2015 Inactive dx 250.00 [SAVINGS FOR NON-COVERED DRUGS -- BIN:[id number], PCN: [id number], Group: [id number], ID# [id number], Questions: . THIS IS NOT INSURANCE.] folic acid 1 mg tablet RxNorm: 978081 1 Tablet(s) PO QHS No Start Date Active Microlet Lancet RxNorm : Miscellaneous Test BID or Ud No Start Date Active 250.0 aspirin 81 mg tablet,delayed release RxNorm: 977621 1 Tablet(s) PO daily No Start Date Active Stool Softener 100 mg capsule RxNorm: 8861883 1 Capsule(s) PO every other day No Start Date Active folic acid oral RxNorm : 4511 oral No Start Date 05/19/2017 Inactive cyanocobalamin (vit B-12) 100 mcg tablet RxNorm: 314174 1 Tablet(s) PO daily No Start Date 02/14/2017 Inactive hydrochlorothiazide 25 mg tablet RxNorm: 648985 1 Tablet(s) PO daily No Start Date 10/05/2015 Inactive Stool Softener 100 mg capsule RxNorm: 9525814 1 Capsule(s) PO daily No Start Date 05/18/2017 Inactive Humulin 70/30 100 unit/mL subcutaneous suspension RxNorm: 200488 20 Unit(s) SQ QAM No Start Date 07/21/2015 Inactive levothyroxine 100 mcg tablet RxNorm: 505469 1 Tablet(s) PO daily No Start Date 05/10/2018 Inactive Lantus Solostar 100 unit/mL (3 mL) subcutaneous insulin pen RxNorm: 021763 20 Unit(s) SQ QHS No Start Date 01/07/2015 Inactive ferrous sulfate 325 mg (65 mg iron) tablet RxNorm: 795509 1 Tablet(s) PO daily No Start Date 05/18/2017 Inactive Medication Administered Medication Codes Instructions Start Date Status cyanocobalamin (vit B-12) 1,000 mcg/mL injection solution RxNorm: 768729 1Milliliter 01/12/2018 No longer Active cyanocobalamin (vit B-12) 1,000 mcg/mL injection solution RxNorm: 279924 Milliliter 09/15/2017 No longer Active cyanocobalamin (vit B-12) 1,000 mcg/mL injection solution RxNorm: 554245 1Milliliter 08/17/2017 No longer Active cyanocobalamin (vit B-12) 1,000 mcg/mL injection solution RxNorm: 320217 1Milliliter 07/19/2017 No longer Active cyanocobalamin (vit B-12) 1,000 mcg/mL injection solution RxNorm: 689528 1Milliliter 05/19/2017 No longer Active cyanocobalamin (vit B-12) 1,000 mcg/mL injection solution RxNorm: 881607 1Milliliter 04/06/2017 No longer Active cyanocobalamin (vit B-12) 1,000 mcg/mL injection solution RxNorm: 341092 Milliliter 01/04/2017 No longer Active cyanocobalamin (vit B-12) 1,000 mcg/mL injection solution RxNorm: 719552 1Milliliter 12/10/2016 No longer Active cyanocobalamin (vit B-12) 1,000 mcg/mL injection solution RxNorm: 810607 Milliliter 10/13/2016 No longer Active cyanocobalamin (vit B-12) 1,000 mcg/mL injection solution RxNorm: 755982 1Milliliter 09/03/2016 No longer Active cyanocobalamin (vit B-12) 1,000 mcg/mL injection solution RxNorm: 273995 Milliliter 07/29/2016 No longer Active cyanocobalamin (vit B-12) 1,000 mcg/mL injection solution RxNorm: 389167 1Milliliter 06/03/2016 No longer Active cyanocobalamin (vit B-12) 1,000 mcg/mL injection solution RxNorm: 992703 Milliliter 09/15/2015 No longer Active cyanocobalamin (vit B-12) 1,000 mcg/mL injection solution RxNorm: 443489 Milliliter 09/08/2015 No longer Active cyanocobalamin (vit B-12) 1,000 mcg/mL injection solution RxNorm: 444268 Milliliter 09/01/2015 No longer Active cyanocobalamin (vit B-12) 1,000 mcg/mL injection solution RxNorm: 905197 Milliliter 08/25/2015 No longer Active Immunizations Vaccine [...] Observation Code Item Item Code Result Date Comp Metabolic Gcg082 NA 142 mEq/L 05/15/2018 Comp Metabolic Uoc178 K 4.0 mEq/L 05/15/2018 Comp Metabolic Bob054 CL 107 mEq/L 05/15/2018 Comp Metabolic Zjl293 CO2 28.0 mEq/L 05/15/2018 Comp Metabolic Esq588 ANION GAP 11 05/15/2018 Comp Metabolic Vke917 GLUCOSE 211 mg/dL 05/15/2018 Comp Metabolic Rid545 Creat 0.9 mg/dL 05/15/2018 Comp Metabolic Gks563 eGFR 61 ml/min/1.73m2 05/15/2018 Comp Metabolic Abw659 BUN 21 mg/dL 05/15/2018 Comp Metabolic Scb101 B/C Ratio 22.6 Ratio 05/15/2018 Comp Metabolic Tzx796 CALCIUM 9.1 mg/dL 05/15/2018 Comp Metabolic Tzp917 ALK PHOS 85 U/L 05/15/2018 Comp Metabolic Tgn173 AST(SGOT) 36 U/L 05/15/2018 Comp Metabolic Pmj374 ALT(SGPT) 19 U/L 05/15/2018 Comp Metabolic Erm355 BILI T 0.6 mg/dL 05/15/2018 Comp Metabolic Hjq637 ALBUMIN 3.8 g/dL 05/15/2018 Comp Metabolic Smi169 TPRO 6.2 g/dL 05/15/2018 Comp Metabolic Cct682 GLOB 2.4 g/dL 05/15/2018 Comp Metabolic Wac899 A/G Ratio 1.6 Ratio 05/15/2018 Comp Metabolic Vne928 Osmo 292 mOsmo 05/15/2018 Comp Metabolic Nkc766 NA 139 mEq/L 11/28/2017 Comp Metabolic Qaq726 K 4.1 mEq/L 11/28/2017 Comp Metabolic Tks475 CL 105 mEq/L 11/28/2017 Comp Metabolic Kdi793 CO2 26.0 mEq/L 11/28/2017 Comp Metabolic Cxx733 ANION GAP 12 11/28/2017 Comp Metabolic Kcj671 GLUCOSE 132 mg/dL 11/28/2017 Comp Metabolic Jfi481 Creat 0.9 mg/dL 11/28/2017 Comp Metabolic Pjn766 eGFR 66 ml/min/1.73m2 11/28/2017 Comp Metabolic Ulr009 BUN 17 mg/dL 11/28/2017 Comp Metabolic Trd964 B/C Ratio 19.5 Ratio 11/28/2017 Comp Metabolic Nqo426 CALCIUM 9.1 mg/dL 11/28/2017 Comp Metabolic Cyg607 ALK PHOS 78 U/L 11/28/2017 Comp Metabolic Zod506 AST(SGOT) 35 U/L 11/28/2017 Comp Metabolic Hpf544 ALT(SGPT) 17 U/L 11/28/2017 Comp Metabolic Yaa030 BILI T 0.6 mg/dL 11/28/2017 Comp Metabolic Vii747 ALBUMIN 3.9 g/dL 11/28/2017 Comp Metabolic Ijh705 TPRO 6.4 g/dL 11/28/2017 Comp Metabolic Tkk750 GLOB 2.5 g/dL 11/28/2017 Comp Metabolic Kjx976 A/G Ratio 1.6 Ratio 11/28/2017 Comp Metabolic Uam327 Osmo 281 mOsmo 11/28/2017 Tsh Ord6 TSH (3rd IS) 1.14 uIU/mL 11/28/2017 Free T4 Rep608 FREE T4 1.05 ng/dL 11/28/2017 %Hba1C Qlj332 % HbA1c 37255-2 7.7 % 11/25/2017 %Hba1C Qew632 Gluc Ave 174 mg/dL 11/25/2017 Cbc With [...] 39.8 % 11/25/2017 Cbc With Differential Ord2 [place]% 10.2 % 11/25/2017 Cbc With Differential Ord2 [...] 2.56 K/ul 11/25/2017 Cbc With Differential Ord2 [place] ABS# 0.7 K/ul 11/25/2017 Cbc With Differential [...] 20.4 % 05/19/2017 Cbc With Differential Ord2 [place]% 6.8 % 05/19/2017 Cbc With Differential Ord2 [...] 1.64 K/ul 05/19/2017 Cbc With Differential Ord2 [place] ABS# 0.6 K/ul 05/19/2017 Cbc With Differential Ord2 Eos ABS# 0.2 K/ul 05/19/2017 Cbc With Differential Ord2 Baso ABS# 0.0 K/ul 05/19/2017 B12 Vdd356 B12 >1500.00 pg/ml 05/19/2017 Free T4 Umo897 FREE T4 1.10 ng/dL 05/19/2017 %Hba1C Aor326 % HbA1c 98890-2 6.8 % 05/19/2017 %Hba1C Vrf743 Gluc Ave 148 mg/dL 05/19/2017 Tsh Ord6 hTSH II 1.73 uIU/mL 05/19/2017 Comp Metabolic Oum636 NA 140 mEq/L 05/19/2017 Comp Metabolic Wew270 K 3.8 mEq/L 05/19/2017 Comp Metabolic Tfd686 CL 108 mEq/L 05/19/2017 Comp Metabolic Gwe207 CO2 21.0 mEq/L 05/19/2017 Comp Metabolic Bqq153 ANION GAP 15 05/19/2017 Comp Metabolic Mff842 GLUCOSE 207 mg/dL 05/19/2017 Comp Metabolic Wfc263 Creat 1.0 mg/dL 05/19/2017 Comp Metabolic Cgf248 eGFR 55 ml/min/1.73m2 05/19/2017 Comp Metabolic Snf701 BUN 21 mg/dL 05/19/2017 Comp Metabolic Kzk233 B/C Ratio 20.4 Ratio 05/19/2017 Comp Metabolic Pbv852 CALCIUM 9.1 mg/dL 05/19/2017 Comp Metabolic Qcb486 ALK PHOS 74 U/L 05/19/2017 Comp Metabolic Wpg952 AST(SGOT) 32 U/L 05/19/2017 Comp Metabolic Jdw238 ALT(SGPT) 15 U/L 05/19/2017 Comp Metabolic Dov927 BILI T 0.6 mg/dL 05/19/2017 Comp Metabolic Ftm861 ALBUMIN 3.9 g/dL 05/19/2017 Comp Metabolic Nnm600 TPRO 6.2 g/dL 05/19/2017 Comp Metabolic Yde832 GLOB 2.3 g/dL 05/19/2017 Comp Metabolic Gln876 A/G Ratio 1.6 Ratio 05/19/2017 Comp Metabolic Ndi870 Osmo 288 mOsmo 05/19/2017 Cbc With Differential [...] 29.3 pg 12/10/2016 Cbc With Differential Ord2 [place]% 7.1 % 12/10/2016 Cbc With Differential Ord2 [...] 2.50 K/ul 12/10/2016 Cbc With Differential Ord2 [place] ABS# 0.5 K/ul 12/10/2016 Cbc With Differential Ord2 Eos ABS# 0.1 K/ul 12/10/2016 Cbc With Differential Ord2 Baso ABS# 0.0 K/ul 12/10/2016 B12 Tia673 B12 222.00 pg/ml 12/10/2016 %Hba1C Ysv104 % HbA1c 73986-9 7.5 % 11/16/2016 %Hba1C Cgc637 Gluc Ave 169 mg/dL 11/16/2016 Free T4 Fvd402 FREE T4 1.03 ng/dL 11/16/2016 Comp Metabolic Mgl413 NA 138 mEq/L 11/16/2016 Comp Metabolic Zlz595 K 3.8 mEq/L 11/16/2016 Comp Metabolic Gqi661 CL 103 mEq/L 11/16/2016 Comp Metabolic Lug741 CO2 26.0 mEq/L 11/16/2016 Comp Metabolic Air428 ANION GAP 13 11/16/2016 Comp Metabolic Ivp958 GLUCOSE 235 mg/dL 11/16/2016 Comp Metabolic Lmt586 Creat 0.9 mg/dL 11/16/2016 Comp Metabolic Jbp099 eGFR 62 ml/min/1.73m2 11/16/2016 Comp Metabolic Jfx133 BUN 20 mg/dL 11/16/2016 Comp Metabolic Qeb610 B/C Ratio 21.7 Ratio 11/16/2016 Comp Metabolic Oue739 CALCIUM 8.9 mg/dL 11/16/2016 Comp Metabolic Uvq157 ALK PHOS 75 U/L 11/16/2016 Comp Metabolic Qos581 AST(SGOT) 30 U/L 11/16/2016 Comp Metabolic Vqe447 ALT(SGPT) 13 U/L 11/16/2016 Comp Metabolic Ffd645 BILI T 0.6 mg/dL 11/16/2016 Comp Metabolic Hqf191 ALBUMIN 3.8 g/dL 11/16/2016 Comp Metabolic Fhs853 TPRO 6.8 g/dL 11/16/2016 Comp Metabolic Hps084 GLOB 3.1 g/dL 11/16/2016 Comp Metabolic Sxd754 A/G Ratio 1.2 Ratio 11/16/2016 Comp Metabolic Cus900 Osmo 286 mOsmo 11/16/2016 Tsh Ord6 hTSH II 2.50 uIU/mL 11/16/2016 Tsh Ord6 hTSH II 3.18 uIU/mL 05/21/2016 Lipid Ord30 CHOL 212 mg/dL 05/21/2016 Lipid Ord30 HDL 43.0 mg/dl 05/21/2016 Lipid Ord30 TRIG 164 mg/dL 05/21/2016 Lipid Ord30 LDL 136 mg/dL 05/21/2016 Lipid Ord30 C/HDL 4.9 Ratio 05/21/2016 B12 Gcv546 B12 159.00 pg/ml 05/21/2016 %Hba1C Yum614 % HbA1c 11425-9 7.5 % 05/21/2016 %Hba1C Ily975 Gluc Ave 169 mg/dL 05/21/2016 Folate Ord36 Folate >23.80 ng/mL 05/21/2016 Free T4 Jyi784 FREE T4 1.03 ng/dL 05/21/2016 CHEM 14 2907181 AST 33 U/L 03/15/2016 CHEM 14 2791955 ALT 13 U/L 03/15/2016 CHEM 14 7682239 BUN 18 mg/dL 03/15/2016 CHEM 14 1958985 ALBUMIN 3.9 g/dL 03/15/2016 CHEM 14 0251707 CHLORIDE 105 mmol/L 03/15/2016 CHEM 14 0141937 Bili Total 0.4 mg/dL 03/15/2016 CHEM 14 5709687 ALK PHOS 60 U/L 03/15/2016 CHEM 14 4422497 SODIUM 138 mmol/L 03/15/2016 CHEM 14 3201116 CREATININE 0.99 mg/dL 03/15/2016 CHEM 14 9990343 CALCIUM 9.4 mg/dL 03/15/2016 CHEM 14 8738851 POTASSIUM 3.8 mmol/L 03/15/2016 CHEM 14 4743800 TOTAL PROTEIN 6.7 g/dL 03/15/2016 CHEM 14 3289339 GLUCOSE 109 mg/dL 03/15/2016 CHEM 14 0508204 Bicarbonate 27 mmol/L 03/15/2016 CHEM 14 0375954 AGAP 6 mmol/L 03/15/2016 GFR CALC 4871865 GFR Non Afr Amr 54 mL/min 03/15/2016 GFR CALC 6802457 GFR Afr Amr >60 mL/min 03/15/2016 B12 Ayx032 B12 46.00 pg/ml 08/07/2015 Iron Ord72 Iron [...] Ord2 RDW 16.6 % 08/05/2015 Free T4 Sfx268 FREE T4 1.33 ng/dL 08/05/2015 Comp Metabolic Uyr394 NA 137 mEq/L 08/05/2015 Comp Metabolic Bhg878 K 4.5 mEq/L 08/05/2015 Comp Metabolic Zuu364 CL 104 mEq/L 08/05/2015 Comp Metabolic Mfp181 CO2 26.0 mEq/L 08/05/2015 Comp Metabolic Ygt661 ANION GAP 12 08/05/2015 Comp Metabolic Ifb189 GLUCOSE 146 mg/dL 08/05/2015 Comp Metabolic Uvt061 Creat 1.0 mg/dL 08/05/2015 Comp Metabolic Cqv476 eGFR 56 ml/min/1.73m2 08/05/2015 Comp Metabolic Qki272 BUN 23 mg/dL 08/05/2015 Comp Metabolic Eum343 B/C Ratio 22.8 Ratio 08/05/2015 Comp Metabolic Uco693 CALCIUM 9.3 mg/dL 08/05/2015 Comp Metabolic Qtq492 ALK PHOS 71 U/L 08/05/2015 Comp Metabolic Kfm181 AST(SGOT) 33 U/L 08/05/2015 Comp Metabolic Wwy462 ALT(SGPT) 15 U/L 08/05/2015 Comp Metabolic Kvo466 BILI T 0.6 mg/dL 08/05/2015 Comp Metabolic Ihv939 ALBUMIN 3.9 g/dL 08/05/2015 Comp Metabolic Gpm989 TPRO 6.5 g/dL 08/05/2015 Comp Metabolic Ern070 GLOB 2.6 g/dL 08/05/2015 Comp Metabolic Rkq753 A/G Ratio 1.5 Ratio 08/05/2015 Comp Metabolic Cax574 Osmo 280 mOsmo 08/05/2015 Tsh Ord6 hTSH II 0.36 uIU/mL 08/05/2015 %Hba1C Dwz026 % HbA1c 46635-0 8.1 % 08/05/2015 %Hba1C Wjf764 Gluc Ave 186 mg/dL 08/05/2015 Free T4 Knb062 FREE T4 0.91 ng/dL 04/11/2015 %Hba1C Ghs102 % HbA1c 60123-2 8.3 % 04/10/2015 %Hba1C Gqr718 Gluc Ave 192 mg/dL 04/10/2015 Cbc With [...] Ord2 RDW 15.8 % 04/10/2015 Comp Metabolic Wri224 NA 134 mEq/L 04/10/2015 Comp Metabolic Bpa745 K 4.1 mEq/L 04/10/2015 Comp Metabolic Kad369 CL 105 mEq/L 04/10/2015 Comp Metabolic Kay665 CO2 26.0 mEq/L 04/10/2015 Comp Metabolic Ebb520 ANION GAP 7 04/10/2015 Comp Metabolic Phy972 GLUCOSE 126 mg/dL 04/10/2015 Comp Metabolic Pqu499 Creat 1.0 mg/dL 04/10/2015 Comp Metabolic Cjs688 eGFR 58 ml/min/1.73m2 04/10/2015 Comp Metabolic Nsg497 BUN 29 mg/dL 04/10/2015 Comp Metabolic Tse743 B/C Ratio 29.6 Ratio 04/10/2015 Comp Metabolic Kea484 CALCIUM 9.3 mg/dL 04/10/2015 Comp Metabolic Hct011 ALK PHOS 63 U/L 04/10/2015 Comp Metabolic Eax167 AST(SGOT) 31 U/L 04/10/2015 Comp Metabolic Doc284 ALT(SGPT) 14 U/L 04/10/2015 Comp Metabolic Afo800 BILI T 0.6 mg/dL 04/10/2015 Comp Metabolic Okq918 ALBUMIN 3.9 g/dL 04/10/2015 Comp Metabolic Qev370 TPRO 6.3 g/dL 04/10/2015 Comp Metabolic Eup304 GLOB 2.4 g/dL 04/10/2015 Comp Metabolic Dzt543 A/G Ratio 1.6 Ratio 04/10/2015 Comp Metabolic Lum045 Osmo 276 mOsmo 04/10/2015 Tsh Ord6 hTSH [...] Procedure Codes Date THER/PROPH/DIAG INJ SC/IM CPT-4: 22465 01/12/2018 VITAMIN B12 INJECTION CPT-4: J3420 01/12/2018 THER/PROPH/DIAG INJ SC/IM CPT-4: 20559 09/15/2017 VITAMIN B12 INJECTION CPT-4: J3420 09/15/2017 THER/PROPH/DIAG INJ SC/IM CPT-4: 27905 08/17/2017 VITAMIN B12 INJECTION CPT-4: J3420 08/17/2017 THER/PROPH/DIAG INJ SC/IM CPT-4: 70561 07/19/2017 VITAMIN B12 INJECTION CPT-4: J3420 07/19/2017 THER/PROPH/DIAG INJ SC/IM CPT-4: 35626 05/19/2017 VITAMIN B12 INJECTION CPT-4: J3420 05/19/2017 THER/PROPH/DIAG INJ SC/IM CPT-4: 69611 04/06/2017 VITAMIN B12 INJECTION CPT-4: J3420 04/06/2017 THER/PROPH/DIAG INJ SC/IM CPT-4: 84834 01/04/2017 VITAMIN B12 INJECTION CPT-4: J3420 01/04/2017 THER/PROPH/DIAG INJ SC/IM CPT-4: 53461 12/10/2016 VITAMIN B12 INJECTION CPT-4: J3420 12/10/2016 THER/PROPH/DIAG INJ SC/IM CPT-4: 28036 10/13/2016 TRIAMCINOLONE ACET INJ NOS CPT-4: J3301 10/13/2016 THER/PROPH/DIAG INJ SC/IM CPT-4: 97248 09/03/2016 VITAMIN B12 INJECTION CPT-4: J3420 09/03/2016 THER/PROPH/DIAG INJ SC/IM CPT-4: 42077 07/29/2016 VITAMIN B12 INJECTION CPT-4: J3420 07/29/2016 THER/PROPH/DIAG INJ SC/IM CPT-4: 00797 06/03/2016 VITAMIN B12 INJECTION CPT-4: J3420 06/03/2016 PNEUMOCOCCAL VACC [address]: 58493616 CPT-4: 82798 04/22/2016 ADMIN PNEUMOCOCCAL VACCINE SNOMED CT: 92701534 CPT-4: G0009 04/22/2016 VITAMIN B12 INJECTION CPT-4: J3420 09/15/2015 THER/PROPH/DIAG INJ SC/IM CPT-4: 21849 09/15/2015 THER/PROPH/DIAG INJ SC/IM CPT-4: 76263 09/08/2015 VITAMIN B12 INJECTION CPT-4: J3420 09/08/2015 THER/PROPH/DIAG INJ SC/IM CPT-4: 30313 09/01/2015 VITAMIN B12 INJECTION CPT-4: J3420 09/01/2015 THER/PROPH/DIAG INJ SC/IM CPT-4: 78114 08/25/2015 VITAMIN B12 INJECTION CPT-4: J3420 08/25/2015 Vital Signs Date Vital 05/15/2018 Blood Pressure 1: 140/80 Code : 8480-6 BMI: 41.6 Code : 19457-2 Heart Rate 1 : 86 bpm Height: 4'11" SpO2: 92% Weight: 206 lbs 01/12/2018 Blood Pressure 1: 140/78 Code : 8480-6 BMI: 42.2 Code : 01525-9 Heart Rate 1 : 73 bpm Height: 4'11" SpO2: 97% Weight: 209 lbs 11/25/2017 Blood Pressure 1: 140/68 Code : 8480-6 BMI: 42.2 Code : 21659-1 Heart Rate 1 : 76 bpm Height: 4'11" SpO2: 94% Weight: 209 lbs 09/15/2017 Blood Pressure 1: 146/67 Code : 8480-6 BMI: 42.2 Code : 25664-6 Heart Rate 1 : 69 bpm Height: 4'11" SpO2: 97% Weight: 209 lbs 08/17/2017 Blood Pressure 1: 144/70 Code : 8480-6 BMI: 41.8 Code : 80806-6 Heart Rate 1 : 63 bpm Height: 4'11" SpO2: 97% Weight: 207 lbs 07/19/2017 Blood Pressure 1: 142/74 Code : 8480-6 BMI: 41.4 Code : 87780-6 Heart Rate 1 : 71 bpm Height: 4'11" SpO2: 96% Weight: 205 lbs 05/19/2017 Blood Pressure 1: 148/76 Code : 8480-6 BMI: 42.8 Code : 70017-3 Heart Rate 1 : 72 bpm Height: 4'11" SpO2: 94% Weight: 212 lbs 02/15/2017 Blood Pressure 1: 154/70 Code : 8480-6 BMI: 42.5 Code : 53468-6 Heart Rate 1 : 68 bpm Height: 4'11" SpO2: 97% Weight: 210 lbs 8 oz 11/16/2016 Blood Pressure 1: 142/78 Code : 8480-6 BMI: 41.6 Code : 48283-4 Heart Rate 1 : 68 bpm Height: 4'11" SpO2: 95% Temperature: 36.0 (C) / 96.8 (F) Weight: 206 lbs 08/19/2016 Blood Pressure 1: 120/74 Code : 8480-6 BMI: 41.6 Code : 98920-7 Heart Rate 1 : 75 bpm Height: 4'11" SpO2: 95% Weight: 206 lbs 07/15/2016 Blood Pressure 1: 140/76 Code : 8480-6 BMI: 42.0 Code : 92133-5 Heart Rate 1 : 76 bpm Height: 4'11" SpO2: 96% Weight: 208 lbs 06/03/2016 Blood Pressure 1: 130/78 Code : 8480-6 BMI: 42.8 Code : 03850-2 Heart Rate 1 : 72 bpm Height: 4'11" SpO2: 98% Weight: 212 lbs 04/22/2016 Blood Pressure 1: 142/84 Code : 8480-6 BMI: 41.8 Code : 11777-3 Heart Rate 1 : 86 bpm Height: 4'11" SpO2: 92% Weight: 207 lbs 01/22/2016 Blood Pressure 1: 162/64 Code : 8480-6 BMI: 41.2 Code : 44756-7 Heart Rate 1 : 70 bpm Height: 4'11" SpO2: 97% Weight: 204 lbs 10/23/2015 Blood Pressure 1: 130/70 Code : 8480-6 BMI: 40.4 Code : 07020-3 Heart Rate 1 : 72 bpm Height: 4'11" SpO2: 95% Weight: 200 lbs 09/12/2015 Blood Pressure 1: 142/62 Code : 8480-6 BMI: 39.4 Code : 76437-3 Heart Rate 1 : 63 bpm Height: 4'11" SpO2: 96% Weight: 195 lbs 08/05/2015 Blood Pressure 1: 144/60 Code : 8480-6 BMI: 41.0 Code : 66808-8 Heart Rate 1 : 92 bpm Height: 4'11" SpO2: 90% SpO2: 97% Weight: 203 lbs 04/03/2015 Blood Pressure 1: 142/68 Code : 8480-6 BMI: 40.6 Code : 31181-9 Heart Rate 1 : 77 bpm Height: 4'11" SpO2: 95% Weight: 201 lbs 01/30/2015 Blood Pressure 1: 150/72 Code : 8480-6 BMI: 40.2 Code : 60971-0 Heart Rate 1 : 64 bpm Height: 4'11" Weight: 199 lbs 01/02/2015 Blood Pressure 1: 136/72 Code : 8480-6 BMI: 39.8 Code : 84612-2 Heart Rate 1 : 68 bpm Height: [...] data Encounters Encounter Performer Location Codes Date ([id number]) 16443 EST. PATIENT, LEVEL IV Diagnosis: Type 2 diabetes mellitus with hyperglycemia[ICD10: E11.65] Diagnosis: Essential (primary) hypertension[ICD10: I10] Diagnosis: Hypothyroidism, unspecified[ICD10: E03.9] Giselle Knox MD, [facility] CPT-4: 52235 05/15/2018 ([id number]) 34213 EST. 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 PATIENT, LEVEL IV Diagnosis: Varicose veins of bilateral lower extremities with pain[ICD10: I83.813] Diagnosis: Low back pain[ICD10: M54.5] Diagnosis: Hypothyroidism, unspecified[ICD10: E03.9] Diagnosis: Type 2 diabetes mellitus with hyperglycemia[ICD10: E11.65] Giselle Knox MD, [facility] CPT-4: 63280 11/25/2017 76500 EST. PATIENT, LEVEL IV Diagnosis: Localized edema[ICD10: R60.0] Diagnosis: Vitamin B12 deficiency anemia due to intrinsic factor deficiency[ ICD10: D51.0] Chasity Knox MD, [facility] CPT-4: 05055 64460 EST. PATIENT, LEVEL IV Diagnosis: Essential (primary) hypertension[ICD10: I10] Diagnosis: Type 2 diabetes mellitus with hyperglycemia[ICD10: E11.65] Diagnosis: Vitamin B12 deficiency anemia due to intrinsic factor deficiency[ ICD10: D51.0] Chasity Knox MD, [facility] CPT-4: 45808 13032 EST. PATIENT, LEVEL IV Diagnosis: Type 2 diabetes mellitus with hyperglycemia[ICD10: E11.65] Diagnosis: Essential (primary) hypertension[ICD10: I10] Diagnosis: Vitamin B12 deficiency anemia due to intrinsic factor deficiency[ ICD10: D51.0] Chasity Knox MD, [facility] CPT-4: 06043 ([id number]) 08987 EST. PATIENT, LEVEL IV Diagnosis: Essential (primary) hypertension[ICD10: I10] Diagnosis: Type 2 diabetes mellitus with hyperglycemia[ICD10: E11.65] Diagnosis: Hypothyroidism, unspecified[ICD10: E03.9] Diagnosis: Vitamin B12 deficiency anemia due to intrinsic factor deficiency[ ICD10: D51.0] Diagnosis: Chronic kidney disease, stage 3 (moderate)[ICD10: N18.3] Giselle Knox MD , [facility] CPT-4: 74296 05/19/2017 ([id number]) 74065 EST. PATIENT, LEVEL IV Diagnosis: Essential (primary) hypertension[ICD10: I10] Diagnosis: Type 2 diabetes mellitus with hyperglycemia[ICD10: E11.65] Diagnosis: Hypothyroidism, unspecified[ICD10: E03.9] Giselle Knox MD, [facility] CPT-4: 95495 02/15/2017 ([id number]) 10863 EST. PATIENT, LEVEL IV Diagnosis: Type 2 diabetes mellitus with hyperglycemia[ICD10: E11.65] Diagnosis: Cough[ICD10: R05] Diagnosis: Acute upper respiratory infection, unspecified[ICD10: J06.9] Diagnosis: Hypothyroidism, unspecified[ICD10: E03.9] Diagnosis: Chronic kidney disease, stage 3 (moderate)[ICD10: N18.3] Giselle Knox MD , [facility] CPT-4: 00908 11/16/2016 ([id number]) 94602 EST. PATIENT, LEVEL IV Diagnosis: Type 2 diabetes mellitus with hyperglycemia[ICD10: E11.65] Diagnosis: Hypothyroidism, unspecified[ICD10: E03.9] Diagnosis: Essential (primary) hypertension[ICD10: I10] Giselle Knox MD, [facility] CPT-4: 95885 08/19/2016 ([id number]) 84103 EST. PATIENT, LEVEL III Diagnosis: Type 2 diabetes mellitus with hyperglycemia[ICD10: E11.65] Giselle Knox MD, [facility] CPT-4: 72556 07/15/2016 ([id number]) 30054 EST. PATIENT, LEVEL IV Diagnosis: Type 2 diabetes mellitus with hyperglycemia[ICD10: E11.65] Diagnosis: Atrophy of thyroid (acquired)[ICD10: E03.4] Diagnosis: Vitamin B12 deficiency anemia due to intrinsic factor deficiency[ ICD10: D51.0] Diagnosis: Chronic kidney disease, stage 3 (moderate)[ICD10: N18.3] Diagnosis: Essential (primary) hypertension[ICD10: I10] Jennifer Knox MD, [facility] CPT-4: 45109 06/03/2016 ([id number]) 39917 EST. PATIENT, LEVEL III Diagnosis: Type 2 diabetes mellitus with hyperglycemia[ICD10: E11.65] Diagnosis: Essential (primary) hypertension[ICD10: I10] Diagnosis: Chronic kidney disease, stage 3 (moderate)[ICD10: N18.3] Diagnosis: VACCIN STREP PNEUMONIAE[ICD10: Z23] Giselle Knox MD, [facility] CPT-4: 98603 04/22/2016 73462 EST. PATIENT, LEVEL IV Diagnosis: Type 2 diabetes mellitus with hyperglycemia[ICD10: E11.65] Diagnosis: Essential (primary) hypertension[ICD10: I10] Chasity Knox MD, [facility] CPT-4: 13695 01/22/2016 ([id number]) 81453 EST. PATIENT, LEVEL III Diagnosis: Type 2 diabetes mellitus with hyperglycemia[ICD10: E11.65] Diagnosis: Essential (primary) hypertension[ICD10: I10] Giselle Knox MD, [facility] CPT-4: 28182 10/23/2015 93697 EST. PATIENT, LEVEL IV Diagnosis: Type 2 diabetes mellitus with hyperglycemia[ICD10: E11.65] Diagnosis: Vitamin B12 deficiency anemia due to intrinsic factor deficiency[ ICD10: D51.0] Diagnosis: Essential (primary) hypertension[ICD10: I10] Chasity Knox MD, [facility] CPT-4: 23216 09/12/2015 ([id number]) 09346 EST. PATIENT, LEVEL IV Diagnosis: Essential (primary) hypertension[ICD10: I10] Diagnosis: Type 2 diabetes mellitus with hyperglycemia[ICD10: E11.65] Diagnosis: Hypothyroidism, unspecified[ICD10: E03.9] Giselle Knox MD, [facility] CPT-4: 61380 08/05/2015 ([id number]) 45692 EST. PATIENT, LEVEL III Diagnosis: ESSENTIAL HYPERTENSION[ICD9: 401.9] Diagnosis: DIABETES TYPE II[ICD9: 250.00] Jennifer Knox MD, [facility] CPT- 4: 50468 04/03/2015 ([id number]) 53823 EST. PATIENT, LEVEL IV Diagnosis: ESSENTIAL HYPERTENSION[ICD9: 401.9] Diagnosis: DIABETES TYPE II[ICD9: 250.00] Diagnosis: Hypothyroidism[ICD9: 244.9] Giselle Knox MD, [facility] CPT-4: 66467 01/30/2015 ([id number]) OFFICE VISIT, NEW - LEVEL 4 Diagnosis: ESSENTIAL HYPERTENSION[ICD9: 401.9] Diagnosis: DIABETES TYPE II[ICD9: 250.00] Diagnosis: Impacted cerumen[ICD9: 380.4] Jennifer Knox MD, [facility] CPT- 4: 16980 01/02/2015 Plan of Care Planned Activity Notes [...] Completed 05/15/2018 Patient Education: Hypertension Completed 05/15/2018 Care Plan: %Hba1C [facility] : 11682-5 Pending 05/15/2018 Care Plan: Tsh Pending 05/15/2018 Care Plan: Free T4 Pending 05/15/2018 Referral: Tom Pike Patient informed. Referral [...] evaluation-recommend PT 01/12/2018 Appointment: Giselle Mccoy WPtel: [address] [place], [place] [phone] (30 min) Complex 01/12/2018 Patient Education: Patient Medication Summary Completed 01/12/2018 Care Plan: Referral Order SNOMED-CT : [id number] Pending 01/12/2018 Visit Plan: Varicose veins-rx for compression stockings provided and instructed on use Low back pain-recommend xray lumbar spine Hypothyroidism-check labs DM-check Hgb A1c 11/25/2017 [facility]ment[facility] [phone] [phone] [place] (30 min) Complex 11/25/2017 Patient Education: Patient Medication Summary Completed 11/25/2017 Care Plan: X-RAY EXAM L-S SPINE 2/3 VWS LOINC : 83271-6 Pending 11/25/2017 Visit Plan: Edema - Left [...] or concerns. 09/15/2017 App[facility]ment[facility] [phone] [phone] [place] (30 min) Complex 09/15/2017 Patient Education: [...] glucose control. 08/17/2017 Appointment: [facility] [phone] [phone] [place] (15 min) Moderate 08/17/2017 Patient Education: [...] home. 07/19/2017 App[facility]ment[facility] [phone] [phone] (15 min) Moderate 07/19/2017 Patient Education: Patient Medication Summary Completed 07/19/2017 [facility] [phone] [phone] ([facility] min) Moderate 06/13/2017 Visit Plan: [...] medications. 05/19/2017 App[facility]ment[facility] [phone] [phone] (30 min) Complex 05/19/2017 Patient Education: Patient [...] control. 02/15/2017 App[facility]ment: [facility] [phone] [phone] (15 min) Moderate 02/15/2017 Patient Education: Patient [...] 11/16/2016 App[facility]ment[facility] [phone] [phone] [place] (15 min) Moderate 11/16/2016 Patient Education: [...] 08/19/2016 App[facility] [phone] [phone] [place] (15 min) Moderate 08/19/2016 Patient Education: Patient Medication Summary Completed 08/19/2016 Patient Education: Obesity Completed 08/19/2016 Care Plan: Tsh Cancelled 08/19/2016 Care Plan: %Hba1C LOINC : 47535-3 Cancelled 08/19/2016 Care Plan: Lipid Cancelled 08/19/2016 Care Plan: Free T4 patient coming back next week Cancelled 08/19/2016 Appointment: Injection 07/29/2016 Patient Education: Patient Medication Summary Completed 07/29/2016 Appointment: Giselle Mccoy WPtel: [phone] [phone] [place] (30 min) Complex 07/22/2016 Visit Plan: Diabetes-having hypoglycemia in the mornings- insulin adjusted-patient and verbalized understanding of plan. Follow up in 1 month-call sooner if still having low blood sugars. Sinus congestion- start claritin 07/15/2016 Appointment: Giselle Mccoy WPtel: [phone] [phone] (30 min) Complex 07/15/2016 Patient Education: Patient [...] control. 06/03/2016 Appointment: [facility] [phone] [phone] [place] (15 min) Moderate 06/03/2016 Patient [...] 1 MONTH 04/22/2016 Appointment: [phone] ([facility] min) Moderate 04/22/2016 Patient Education: Patient [...] needed. 01/02/2015 Appointment: [facility] [phone] [phone] [place] ([place] New Patient 01/02/2015 Patient [...] to assure normal liver response to medications. decrease terazosin to 1/2 pill daily use [...]
--- OUTSIDE RECORDS SUMMARY | 2018-06-17 10:48 | XMS REPORT | CCD ---
Author Author Jennifer [facility] Organization [facility] Address [address] [place] [address] Phone Care Team Providers Care Master Brewer Name Role Phone PP Unavailable CCM Unavailable Summary Purpose Interface Exchange Insurance Providers Payer name Policy type / Coverage type Covered green party ID Effective Begin Date Effective End Date [facility] Commercial Insurance [id number] Unknown Family history Runs in the family Diagnosis Age At Onset Hypertension Unknown Social History Social History Element Codes Description Effective Dates Marital status Unknown Freeman 05/19/2017 Number of children Unknown 3 01/02/2015 Employment Unknown Retired [employer] 01/02/2015 Allergies, Adverse Reactions, Alerts Allergies, Adverse Reactions, Alerts data not found Past Medical History Illness Codes Condition Status Onset Date Resolved Date Chronic kidney disease, stage 3 (moderate) ICD-9: 585.3 ICD-10: N18.3 Active 06/02/2016 Unknown Essential (primary) hypertension ICD-9: 401.9 ICD-10: I10 Active 01/01/2015 Unknown Hypothyroidism, unspecified ICD-9: 244.9 ICD-10: E03.9 Active 08/19/2016 Unknown Type 2 diabetes mellitus with hyperglycemia ICD-9: 250.00 ICD-10: E11.65 Active 07/14/2016 Unknown Vitamin B12 deficiency anemia due to intrinsic factor deficiency ICD-9: 281.0 ICD-10: D51.0 Active 07/28/2016 Unknown Acute upper respiratory infection, unspecified ICD-9: [...] Problems Condition Codes Effective Dates Condition Status Chronic kidney disease, stage 3 (moderate) ICD-9: 585.3 ICD-10: N18.3 06/02/2016 Active Essential (primary) hypertension ICD-9: 401.9 ICD-10: I10 01/01/2015 Active Hypothyroidism, unspecified ICD-9: 244.9 ICD-10: E03.9 08/19/2016 Active Type 2 diabetes mellitus with hyperglycemia ICD-9: 250.00 ICD-10: E11.65 07/14/2016 Active Vitamin B12 deficiency anemia due to intrinsic factor deficiency ICD-9: 281.0 ICD-10: D51.0 07/28/2016 Active Acute upper respiratory infection, unspecified ICD-9: [...] Start Date Stop Date Status Fill Instructions Lantus Solostar 100 unit/mL (3 mL) subcutaneous insulin pen RxNorm: 864234 INJECT 35 UNITS UNDER THE SKIN EVERY NIGHT AT BEDTIME 201712/26/2019 Active One Touch Test strips RxNorm: 1 test Miscellaneous BID 201708/16/2018 Active Contour Test Strips RxNorm: TEST BLOOD SUGAR TWO TIMES A DAY E11.65 08/22/2017 02/22/2019 Active Tamiflu 75 mg capsule RxNorm: 707732 1 Capsule(s) PO daily 08/1708/16/2017 Inactive Tamiflu 75 mg capsule RxNorm: 028688 1 Capsule(s) PO daily 08/1708/26/2017 Inactive cyanocobalamin (vit B-12) 1,000 mcg/mL injection solution RxNorm: 304590 1 Milliliter(s) Inj 08/17/2017 08/17/2017 Inactive carvedilol 12.5 mg tablet RxNorm: 546678 TAKE ONE TABLET BY MOUTH TWICE A DAY 08/10/2017 08/04/2018 Active cyanocobalamin (vit B-12) 1,000 mcg/mL injection solution RxNorm: 390512 1 Milliliter(s) Inj 07/19/2017 07/19/2017 Inactive Humulin 70/30 100 unit/mL subcutaneous suspension RxNorm: 012686 14 Unit(s) SQ QAM 07/06/2017 No Stop Date Active Lantus Solostar 100 unit/mL (3 mL) subcutaneous insulin pen RxNorm: 623801 26 Unit(s) SQ QHS 07/06/2017 08/28/2017 Inactive losartan 100 mg tablet RxNorm: 856458 TAKE ONE TABLET BY MOUTH DAILY 06/07/2017 04/02/2018 Active Lantus Solostar 100 unit/mL (3 mL) subcutaneous insulin pen RxNorm: 877914 28 Unit(s) SQ QHS 05/19/2017 07/05/2017 Inactive cyanocobalamin (vit B-12) 1,000 mcg/mL injection solution RxNorm: 154955 1 Milliliter(s) Inj 05/19/2017 05/19/2017 Inactive terazosin 2 mg capsule RxNorm: 259261 TAKE ONE CAPSULE BY MOUTH DAILY 05/16/2017 10/12/2017 Active cyanocobalamin (vit B-12) 1,000 mcg/mL injection solution RxNorm: 460946 1 Milliliter(s) Inj 04/06/2017 04/06/2017 Inactive cyanocobalamin (vit B-12) 1,000 mcg/mL injection solution RxNorm: 867324 Milliliter(s) Inj 01/04/2017 01/04/2017 Inactive Humulin 70/30 100 unit/mL subcutaneous suspension RxNorm: 101921 18 Unit(s) SQ QAM 12/22/2016 06/04/2017 Inactive cyanocobalamin (vit B-12) 1,000 mcg/mL injection solution RxNorm: 301763 1 Milliliter(s) Inj 12/10/2016 12/10/2016 Inactive Zithromax Z-Jose 250 mg tablet RxNorm: 212588 1 Tablet(s) PO UD 11/16/2016 11/20/2016 Inactive terazosin 2 mg capsule RxNorm: 874784 TAKE ONE CAPSULE BY MOUTH DAILY 11/08/2016 05/06/2017 Inactive Lantus Solostar 100 unit/mL (3 mL) subcutaneous insulin pen RxNorm: 985008 INJECT 35 UNITS UNDER THE SKIN EVERY NIGHT AT BEDTIME 201607/18/2017 Inactive cyanocobalamin (vit B-12) 1,000 mcg/mL injection solution RxNorm: 495105 Milliliter(s) Inj 10/13/2016 10/13/2016 Inactive cyanocobalamin (vit B-12) 1,000 mcg/mL injection solution RxNorm: 427788 1 Milliliter(s) Inj 09/03/2016 09/03/2016 Inactive Contour Test Strips RxNorm: TEST BLOOD SUGAR TWO TIMES A DAY E11.65 08/19/2016 08/21/2017 Inactive carvedilol 12.5 mg tablet RxNorm: 346614 TAKE ONE TABLET BY MOUTH TWICE A DAY 08/05/2016 01/01/2017 Inactive carvedilol 12.5 mg tablet RxNorm: 19990924 TAKE ONE TABLET BY MOUTH TWICE A DAY 08/05/2016 01/01/2017 Inactive carvedilol 12.5 mg tablet RxNorm: 882066 1 Tablet(s) PO BID 05/201701/30/2017 Inactive cyanocobalamin (vit B-12) 1,000 mcg/mL injection solution RxNorm: 199690 Milliliter(s) Inj 07/29/2016 07/29/2016 Inactive Lantus Solostar 100 unit/mL (3 mL) subcutaneous insulin pen RxNorm: 596107 30 Unit(s) SQ QHS 07/15/2016 05/18/2017 Inactive Humulin 70/30 100 unit/mL subcutaneous suspension RxNorm: 581287 18 Unit(s) SQ QAM 07/15/2016 12/21/2016 Inactive losartan 100 mg tablet RxNorm: 552897 TAKE ONE TABLET BY MOUTH DAILY 07/08/2016 06/02/2017 Inactive terazosin 2 mg capsule RxNorm: 868364 TAKE ONE CAPSULE BY MOUTH DAILY 06/10/2016 11/06/2016 Inactive cyanocobalamin (vit B-12) 1,000 mcg/mL injection solution RxNorm: 618078 1 Milliliter(s) Inj 06/03/2016 06/03/2016 Inactive Humulin 70/30 100 unit/mL subcutaneous suspension RxNorm: 727135 Unit(s) INJECT 10 UNITS UNDER THE SKIN 06/01/20162015 Inactive Request already responded to by other means (e.g. phone or fax) Humulin 70/30 100 unit/mL subcutaneous suspension RxNorm: 802680 INJECT 10 UNITS UNDER THE SKIN BEFORE MEALS 06/01/201601/2016 Inactive Request already responded to by other means (e.g. phone or fax) Lantus Solostar 100 unit/mL (3 mL) subcutaneous insulin pen RxNorm: 662680 35 Unit(s) SQ QHS 05/26/2016 07/14/2016 Inactive Humulin 70/30 100 unit/mL subcutaneous suspension RxNorm: 767367 10 Unit(s) SQ QAM 05/24/2016 10/02/2016 Inactive Humulin 70/30 100 unit/mL subcutaneous suspension RxNorm: 771574 21 Unit(s) SQ QAM 05/24/2016 05/23/2016 Inactive Lantus Solostar 100 unit/mL (3 mL) subcutaneous insulin pen RxNorm: 489539 32 Unit(s) SQ QHS 04/22/2016 05/25/2016 Inactive Humulin 70/30 100 unit/mL subcutaneous suspension RxNorm: 540219 21 Unit(s) SQ QAM 04/22/2016 05/24/2016 Inactive with breakfast hydrochlorothiazide 25 mg tablet RxNorm: 308745 TAKE ONE TABLET BY MOUTH DAILY 02/04/2016 02/16/2016 Inactive terazosin 2 mg capsule RxNorm: 790760 Capsule(s) TAKE ONE CAPSULE BY MOUTH DAILY. 12/01/2015 05/28/2016 Inactive Humulin 70/30 100 unit/mL subcutaneous suspension RxNorm: 869822 INJECT 10 UNITS UNDER THE SKIN BEFORE MEALS 11/06/2015 Inactive hydrochlorothiazide 25 mg tablet RxNorm: 449013 1 Tablet(s) PO daily 10/06/2015 02/02/2016 Inactive cyanocobalamin (vit B-12) 1,000 mcg/mL injection solution RxNorm: 522241 Milliliter(s) Inj 09/15/2015 09/15/2015 Inactive Humulin 70/30 100 unit/mL subcutaneous suspension RxNorm: 268652 INJECT 10 UNITS UNDER THE SKIN BEFORE MEALS 09/08/2015 Inactive cyanocobalamin (vit B-12) 1,000 mcg/mL injection solution RxNorm: 622107 Milliliter(s) Inj 09/08/2015 09/08/2015 Inactive terazosin 2 mg capsule RxNorm: 357968 TAKE ONE CAPSULE BY MOUTH DAILY. DISCONTINUE 5 MG CAPSULES 09/01/201511/28 Inactive cyanocobalamin (vit B-12) 1,000 mcg/mL injection solution RxNorm: 014868 Milliliter(s) Inj 09/01/2015 09/01/2015 Inactive cyanocobalamin (vit B-12) 1,000 mcg/mL injection solution RxNorm: 588130 Milliliter(s) Inj 08/25/2015 08/25/2015 Inactive levothyroxine 112 mcg tablet RxNorm: 580656 1 Tablet(s) PO daily 08/06/2015 02/14/2017 Inactive Lantus Solostar 100 unit/mL (3 mL) subcutaneous insulin pen RxNorm: 131773 35 Unit(s) SQ QHS 08/06/2015 04/21/2016 Inactive Humulin 70/30 100 unit/mL subcutaneous suspension RxNorm: 480031 20 Unit(s) SQ AC 08/05/2015 04/21/2016 Inactive with breakfast carvedilol 12.5 mg tablet RxNorm: 239746 1 Tablet(s) PO BID 06/201601/31/2016 Inactive Humulin 70/30 100 unit/mL subcutaneous suspension RxNorm: 791249 10 Unit(s) SQ 07/22/2015 08/04/2015 Inactive losartan 100 mg tablet RxNorm: 215348 TAKE ONE TABLET BY MOUTH DAILY 06/25/2015 06/18/2016 Inactive Lantus Solostar 100 unit/mL (3 mL) subcutaneous insulin pen RxNorm: 268582 30 Unit(s) SQ Q 06/18/2015 08/05/2015 Inactive terazosin 2 mg capsule RxNorm: 247412 1 Capsule(s) PO daily 08/11/2015 Inactive DC the 5mg order terazosin 2 mg capsule RxNorm: 193691 1 Capsule(s) PO daily 04/13/2015 Inactive Synthroid 25 mcg tablet RxNorm: 661095 1 Tablet(s) PO daily 02/14/2017 Inactive Synthroid 25 mcg tablet RxNorm: 925526 1 Tablet(s) PO daily 04/10/2015 Inactive Lantus Solostar 100 unit/mL (3 mL) subcutaneous insulin pen RxNorm: 633863 30 Unit(s) SQ Q 04/04/2015 06/17/2015 Inactive terazosin 5 mg tablet RxNorm: 486748 1 Tablet(s) PO daily 201404/13/2015 Inactive Lantus Solostar 100 unit/mL (3 mL) subcutaneous insulin pen RxNorm: 713046 25 Unit(s) SQ QHS 01/08/2015 04/03/2015 Inactive carvedilol 25 mg tablet RxNorm: 799711 1 Tablet(s) PO BID 01/0201/31/2015 Inactive terazosin 5 mg tablet RxNorm: 574600 1 Tablet(s) PO daily 201401/01/2015 Inactive levothyroxine 125 mcg tablet RxNorm: 701185 1 Tablet(s) PO daily 01/02/2015 01/31/2015 Inactive terazosin 5 mg tablet RxNorm: 268563 1/2 Tablet(s) PO daily 05/201501/31/2015 Inactive losartan 100 mg tablet RxNorm: 640103 1 Tablet(s) PO daily 08/201404/22/2015 Inactive losartan 100 mg tablet RxNorm: 274454 1 Tablet(s) PO daily 08/201412/23/2014 Inactive Contour Test Strips RxNorm: Miscellaneous test blood sugars BID 12/06/2014 12/05/2014 Inactive dx 250.00 Contour Test Strips RxNorm: Miscellaneous test blood sugars BID or UD 12/06/2014 06/23/2015 Inactive dx 250.00 [SAVINGS FOR NON-COVERED DRUGS -- BIN:[id number], PCN: [id number], Group: [id number], ID# [id number], Questions: . THIS IS NOT INSURANCE.] folic acid 1 mg tablet RxNorm: 731103 1 Tablet(s) PO QHS No Start Date Active Microlet Lancet RxNorm : Miscellaneous Test BID or Ud No Start Date Active 250.0 aspirin 81 mg tablet,delayed release RxNorm: 696207 1 Tablet(s) PO daily No Start Date Active Stool Softener 100 mg capsule RxNorm: 7662009 1 Capsule(s) PO every other day No Start Date Active levothyroxine 100 mcg tablet RxNorm: 750871 1 Tablet(s) PO daily No Start Date Active folic acid oral RxNorm : 4511 oral No Start Date 05/19/2017 Inactive cyanocobalamin (vit B-12) 100 mcg tablet RxNorm: 062683 1 Tablet(s) PO daily No Start Date 02/14/2017 Inactive hydrochlorothiazide 25 mg tablet RxNorm: 693337 1 Tablet(s) PO daily No Start Date 10/05/2015 Inactive Stool Softener 100 mg capsule RxNorm: 4344847 1 Capsule(s) PO daily No Start Date 05/18/2017 Inactive Humulin 70/30 100 unit/mL subcutaneous suspension RxNorm: 751839 20 Unit(s) SQ QAM No Start Date 07/21/2015 Inactive Lantus Solostar 100 unit/mL (3 mL) subcutaneous insulin pen RxNorm: 962835 20 Unit(s) SQ QHS No Start Date 01/07/2015 Inactive ferrous sulfate 325 mg (65 mg iron) tablet RxNorm: 020896 1 Tablet(s) PO daily No Start Date 05/18/2017 Inactive Medication Administered Medication Codes Instructions Start Date Status cyanocobalamin (vit B-12) 1,000 mcg/mL injection solution RxNorm: 049730 1Milliliter 08/17/2017 No longer Active cyanocobalamin (vit B-12) 1,000 mcg/mL injection solution RxNorm: 832567 1Milliliter 07/19/2017 No longer Active cyanocobalamin (vit B-12) 1,000 mcg/mL injection solution RxNorm: 784121 1Milliliter 05/19/2017 No longer Active cyanocobalamin (vit B-12) 1,000 mcg/mL injection solution RxNorm: 180678 1Milliliter 04/06/2017 No longer Active cyanocobalamin (vit B-12) 1,000 mcg/mL injection solution RxNorm: 346047 Milliliter 01/04/2017 No longer Active cyanocobalamin (vit B-12) 1,000 mcg/mL injection solution RxNorm: 460463 1Milliliter 12/10/2016 No longer Active cyanocobalamin (vit B-12) 1,000 mcg/mL injection solution RxNorm: 602906 Milliliter 10/13/2016 No longer Active cyanocobalamin (vit B-12) 1,000 mcg/mL injection solution RxNorm: 696596 1Milliliter 09/03/2016 No longer Active cyanocobalamin (vit B-12) 1,000 mcg/mL injection solution RxNorm: 730213 Milliliter 07/29/2016 No longer Active cyanocobalamin (vit B-12) 1,000 mcg/mL injection solution RxNorm: 877011 1Milliliter 06/03/2016 No longer Active cyanocobalamin (vit B-12) 1,000 mcg/mL injection solution RxNorm: 825360 Milliliter 09/15/2015 No longer Active cyanocobalamin (vit B-12) 1,000 mcg/mL injection solution RxNorm: 750435 Milliliter 09/08/2015 No longer Active cyanocobalamin (vit B-12) 1,000 mcg/mL injection solution RxNorm: 967451 Milliliter 09/01/2015 No longer Active cyanocobalamin (vit B-12) 1,000 mcg/mL injection solution RxNorm: 646833 Milliliter 08/25/2015 No longer Active Immunizations Vaccine Codes Date Status Influenza CVX: 141 05/18/2017 completed Pneumococcal (Adult) CVX: 133 04/22/2016 completed Influenza CVX: 141 05/07/2015 completed Assessments Condition Codes Effective Dates Essential (primary) hypertension ICD-10: I10 ICD-9: 401.9 08/17/2017 Vitamin B12 deficiency anemia due to intrinsic factor deficiency ICD-10: D51.0 ICD-9: 281.0 08/17/2017 Type 2 diabetes mellitus with hyperglycemia ICD-10: E11.65 ICD-9: 250.00 08/17/2017 Hypothyroidism, unspecified ICD-10: E03.9 ICD-9: 244.9 05/19/2017 Chronic kidney disease, stage 3 (moderate) ICD-10: N18.3 ICD-9: 585.3 05/19/2017 Acute upper respiratory infection, unspecified ICD-10: J06.9 ICD-9: 465.9 11/16/2016 Cough ICD-10: R05 ICD-9: 786.2 11/16/2016 Other vitamin B12 deficiency anemias ICD-10: [...] For Visit Effective Dates Notes diabetes mellitus 08/17/2017 diabetes mellitus 07/19/2017 diabetes mellitus 05/19/2017 diabetes mellitus 02/15/2017 diabetes mellitus 11/16/2016 diabetes mellitus 08/19/2016 diabetes mellitus 07/15/2016 diabetes mellitus 06/03/2016 hypertension 04/22/2016 hypertension 01/22/2016 hypertension 10/23/2015 hypertension 09/12/2015 hypertension 08/05/2015 hypertension 04/03/2015 hypertension 01/30/2015 hypertension 01/02/2015 Results Observation Observation Code Item Item Code Result Date B12 Mul980 B12 >1500.00 pg/ml 05/19/2017 %Hba1C Xfh091 % HbA1c 60609-3 6.8 % 05/19/2017 %Hba1C Lqc168 Gluc Ave 148 mg/dL 05/19/2017 Comp Metabolic Zqe467 NA 140 mEq/L 05/19/2017 Comp Metabolic Xje126 K 3.8 mEq/L 05/19/2017 Comp Metabolic Nlw694 CL 108 mEq/L 05/19/2017 Comp Metabolic Igi607 CO2 21.0 mEq/L 05/19/2017 Comp Metabolic Hpr988 ANION GAP 15 05/19/2017 Comp Metabolic Snq781 GLUCOSE 207 mg/dL 05/19/2017 Comp Metabolic Xpw266 Creat 1.0 mg/dL 05/19/2017 Comp Metabolic Jtd719 eGFR 55 ml/min/1.73m2 05/19/2017 Comp Metabolic Qux688 BUN 21 mg/dL 05/19/2017 Comp Metabolic Dge913 B/C Ratio 20.4 Ratio 05/19/2017 Comp Metabolic Tee519 CALCIUM 9.1 mg/dL 05/19/2017 Comp Metabolic Egk251 ALK PHOS 74 U/L 05/19/2017 Comp Metabolic Ejh877 AST(SGOT) 32 U/L 05/19/2017 Comp Metabolic Yve911 ALT(SGPT) 15 U/L 05/19/2017 Comp Metabolic Ght037 BILI T 0.6 mg/dL 05/19/2017 Comp Metabolic Cfw799 ALBUMIN 3.9 g/dL 05/19/2017 Comp Metabolic Yuj157 TPRO 6.2 g/dL 05/19/2017 Comp Metabolic Jyq167 GLOB 2.3 g/dL 05/19/2017 Comp Metabolic Iww990 A/G Ratio 1.6 Ratio 05/19/2017 Comp Metabolic Ods077 Osmo 288 mOsmo 05/19/2017 Tsh Ord6 hTSH II 1.73 uIU/mL 05/19/2017 Free T4 Trh053 FREE T4 1.10 ng/dL 05/19/2017 Cbc With Differential Ord2 WBC 8.04 K/ul 05/19/2017 Cbc With Differential Ord2 RBC 3.93 M/ul 05/19/2017 Cbc With Differential Ord2 HGB 11.9 g/dl 05/19/2017 Cbc With Differential Ord2 Neut% 70.8 % 05/19/2017 Cbc With Differential Ord2 HCT 36.8 % 05/19/2017 Cbc With Differential Ord2 MCV 93.6 fl 05/19/2017 Cbc With Differential Ord2 Lymph% 20.4 % 05/19/2017 Cbc With Differential Ord2 Greene% 6.8 % 05/19/2017 Cbc With Differential Ord2 [...] 1.64 K/ul 05/19/2017 Cbc With Differential Ord2 Greene ABS# 0.6 K/ul 05/19/2017 Cbc With Differential Ord2 Eos ABS# 0.2 K/ul 05/19/2017 Cbc With Differential Ord2 Baso ABS# 0.0 K/ul 05/19/2017 B12 Hgk247 B12 222.00 pg/ml 12/10/2016 Cbc With Differential Ord2 WBC 6.80 K/ul [...] 29.3 pg 12/10/2016 Cbc With Differential Ord2 Greene% 7.1 % 12/10/2016 Cbc With Differential Ord2 MCHC 31.7 pg 12/10/2016 Cbc With Differential Ord2 Eos% 2.1 % 12/10/2016 Cbc With Differential Ord2 Baso% 0.3 % 12/10/2016 Cbc With Differential Ord2 PLT 190 K/ul 12/10/2016 Cbc With Differential Ord2 Neut ABS# 3.66 K/ul 12/10/2016 Cbc With Differential Ord2 RDW 14.6 % 12/10/2016 Cbc With Differential Ord2 Lymph ABS# 2.50 K/ul 12/10/2016 Cbc With Differential Ord2 Greene ABS# 0.5 K/ul 12/10/2016 Cbc With Differential Ord2 Eos ABS# 0.1 K/ul 12/10/2016 Cbc With Differential Ord2 Baso ABS# 0.0 K/ul 12/10/2016 Free T4 Edm907 FREE T4 1.03 ng/dL 11/16/2016 Tsh Ord6 hTSH II 2.50 uIU/mL 11/16/2016 Comp Metabolic Yyn011 NA 138 mEq/L 11/16/2016 Comp Metabolic Urb271 K 3.8 mEq/L 11/16/2016 Comp Metabolic Cls418 CL 103 mEq/L 11/16/2016 Comp Metabolic Qup271 CO2 26.0 mEq/L 11/16/2016 Comp Metabolic Qui383 ANION GAP 13 11/16/2016 Comp Metabolic Xjf195 GLUCOSE 235 mg/dL 11/16/2016 Comp Metabolic Wjb745 Creat 0.9 mg/dL 11/16/2016 Comp Metabolic Bwh235 eGFR 62 ml/min/1.73m2 11/16/2016 Comp Metabolic Yjg306 BUN 20 mg/dL 11/16/2016 Comp Metabolic Inp128 B/C Ratio 21.7 Ratio 11/16/2016 Comp Metabolic Fpt986 CALCIUM 8.9 mg/dL 11/16/2016 Comp Metabolic Xhe382 ALK PHOS 75 U/L 11/16/2016 Comp Metabolic Vic649 AST(SGOT) 30 U/L 11/16/2016 Comp Metabolic Bxd117 ALT(SGPT) 13 U/L 11/16/2016 Comp Metabolic Bfo641 BILI T 0.6 mg/dL 11/16/2016 Comp Metabolic Vfg676 ALBUMIN 3.8 g/dL 11/16/2016 Comp Metabolic Fxf091 TPRO 6.8 g/dL 11/16/2016 Comp Metabolic Bwd066 GLOB 3.1 g/dL 11/16/2016 Comp Metabolic Dsm714 A/G Ratio 1.2 Ratio 11/16/2016 Comp Metabolic Kqh142 Osmo 286 mOsmo 11/16/2016 %Hba1C Oaj411 % HbA1c 11953-7 7.5 % 11/16/2016 %Hba1C Qyt025 Gluc Ave 169 mg/dL 11/16/2016 Free T4 Yxj113 FREE T4 1.03 ng/dL 05/21/2016 %Hba1C Ulg532 % HbA1c 43027-5 7.5 % 05/21/2016 %Hba1C Owh600 Gluc Ave 169 mg/dL 05/21/2016 Folate Ord36 Folate >23.80 ng/mL 05/21/2016 Lipid Ord30 CHOL 212 mg/dL 05/21/2016 Lipid Ord30 HDL 43.0 mg/dl 05/21/2016 Lipid Ord30 TRIG 164 mg/dL 05/21/2016 Lipid Ord30 LDL 136 mg/dL 05/21/2016 Lipid Ord30 C/HDL 4.9 Ratio 05/21/2016 B12 Rli644 B12 159.00 pg/ml 05/21/2016 Tsh Ord6 hTSH II 3.18 uIU/mL 05/21/2016 CHEM 14 8307601 AST 33 U/L 03/15/2016 CHEM 14 1605730 ALT 13 U/L 03/15/2016 CHEM 14 3039227 BUN 18 mg/dL 03/15/2016 CHEM 14 8818546 ALBUMIN 3.9 g/dL 03/15/2016 CHEM 14 6402680 CHLORIDE 105 mmol/L 03/15/2016 CHEM 14 3926887 Bili Total 0.4 mg/dL 03/15/2016 CHEM 14 6717718 ALK PHOS 60 U/L 03/15/2016 CHEM 14 0620213 SODIUM 138 mmol/L 03/15/2016 CHEM 14 8925131 CREATININE 0.99 mg/dL 03/15/2016 CHEM 14 2116193 CALCIUM 9.4 mg/dL 03/15/2016 CHEM 14 4892742 POTASSIUM 3.8 mmol/L 03/15/2016 CHEM 14 8247202 TOTAL PROTEIN 6.7 g/dL 03/15/2016 CHEM 14 2938679 GLUCOSE 109 mg/dL 03/15/2016 CHEM 14 8676851 Bicarbonate 27 mmol/L 03/15/2016 CHEM 14 6136160 AGAP 6 mmol/L 03/15/2016 GFR CALC 9752595 GFR Non Afr Amr 54 mL/min 03/15/2016 GFR CALC 3117752 GFR Afr Amr >60 mL/min 03/15/2016 B12 Opy672 B12 46.00 pg/ml 08/07/2015 Iron Ord72 Iron [...] Ord2 RDW 16.6 % 08/05/2015 Free T4 Mej352 FREE T4 1.33 ng/dL 08/05/2015 Tsh Ord6 hTSH II 0.36 uIU/mL 08/05/2015 %Hba1C Gjt251 % HbA1c 89582-5 8.1 % 08/05/2015 %Hba1C Mjk678 Gluc Ave 186 mg/dL 08/05/2015 Comp Metabolic Hih743 NA 137 mEq/L 08/05/2015 Comp Metabolic Gqu976 K 4.5 mEq/L 08/05/2015 Comp Metabolic Lkt237 CL 104 mEq/L 08/05/2015 Comp Metabolic Uya128 CO2 26.0 mEq/L 08/05/2015 Comp Metabolic Tiu530 ANION GAP 12 08/05/2015 Comp Metabolic Ffm898 GLUCOSE 146 mg/dL 08/05/2015 Comp Metabolic Seq544 Creat 1.0 mg/dL 08/05/2015 Comp Metabolic Fxs032 eGFR 56 ml/min/1.73m2 08/05/2015 Comp Metabolic Haj332 BUN 23 mg/dL 08/05/2015 Comp Metabolic Lfh305 B/C Ratio 22.8 Ratio 08/05/2015 Comp Metabolic Tkn876 CALCIUM 9.3 mg/dL 08/05/2015 Comp Metabolic Kic893 ALK PHOS 71 U/L 08/05/2015 Comp Metabolic Dxm094 AST(SGOT) 33 U/L 08/05/2015 Comp Metabolic Iff846 ALT(SGPT) 15 U/L 08/05/2015 Comp Metabolic Vlc805 BILI T 0.6 mg/dL 08/05/2015 Comp Metabolic Zws266 ALBUMIN 3.9 g/dL 08/05/2015 Comp Metabolic Tuu585 TPRO 6.5 g/dL 08/05/2015 Comp Metabolic Gfo375 GLOB 2.6 g/dL 08/05/2015 Comp Metabolic Hbe439 A/G Ratio 1.5 Ratio 08/05/2015 Comp Metabolic Xbe581 Osmo 280 mOsmo 08/05/2015 Free T4 Bev279 FREE T4 0.91 ng/dL 04/11/2015 Tsh Ord6 hTSH II 6.71 uIU/mL 04/10/2015 Cbc With Differential Ord2 WBC 5.5 [...] With Differential Ord2 RDW 15.8 % 04/10/2015 %Hba1C Nee312 % HbA1c 35322-3 8.3 % 04/10/2015 %Hba1C Yci858 Gluc Ave 192 mg/dL 04/10/2015 Comp Metabolic Gpk649 NA 134 mEq/L 04/10/2015 Comp Metabolic Fsf995 K 4.1 mEq/L 04/10/2015 Comp Metabolic Rnw585 CL 105 mEq/L 04/10/2015 Comp Metabolic Igv271 CO2 26.0 mEq/L 04/10/2015 Comp Metabolic Wtt133 ANION GAP 7 04/10/2015 Comp Metabolic Cwi933 GLUCOSE 126 mg/dL 04/10/2015 Comp Metabolic Jqe097 Creat 1.0 mg/dL 04/10/2015 Comp Metabolic Cto018 eGFR 58 ml/min/1.73m2 04/10/2015 Comp Metabolic Hhu238 BUN 29 mg/dL 04/10/2015 Comp Metabolic Mrq456 B/C Ratio 29.6 Ratio 04/10/2015 Comp Metabolic Wsx422 CALCIUM 9.3 mg/dL 04/10/2015 Comp Metabolic Ebs738 ALK PHOS 63 U/L 04/10/2015 Comp Metabolic Vzt595 AST(SGOT) 31 U/L 04/10/2015 Comp Metabolic Esv039 ALT(SGPT) 14 U/L 04/10/2015 Comp Metabolic Jxw490 BILI T 0.6 mg/dL 04/10/2015 Comp Metabolic Dfd529 ALBUMIN 3.9 g/dL 04/10/2015 Comp Metabolic Mlo033 TPRO 6.3 g/dL 04/10/2015 Comp Metabolic Rvj926 GLOB 2.4 g/dL 04/10/2015 Comp Metabolic Fiz368 A/G Ratio 1.6 Ratio 04/10/2015 Comp Metabolic Wgj809 Osmo 276 mOsmo 04/10/2015 Review of Systems System Result Effective [...] Dates Notes Full Exam - General 1994 Eyes conjunctiva [...] Procedure Codes Date THER/PROPH/DIAG INJ SC/IM CPT-4: 95365 08/17/2017 VITAMIN B12 INJECTION CPT-4: J3420 08/17/2017 THER/PROPH/DIAG INJ SC/IM CPT-4: 38148 07/19/2017 VITAMIN B12 INJECTION CPT-4: J3420 07/19/2017 THER/PROPH/DIAG INJ SC/IM CPT-4: 24955 05/19/2017 VITAMIN B12 INJECTION CPT-4: J3420 05/19/2017 THER/PROPH/DIAG INJ SC/IM CPT-4: 20275 04/06/2017 VITAMIN B12 INJECTION CPT-4: J3420 04/06/2017 THER/PROPH/DIAG INJ SC/IM CPT-4: 28590 01/04/2017 VITAMIN B12 INJECTION CPT-4: J3420 01/04/2017 THER/PROPH/DIAG INJ SC/IM CPT-4: 57992 12/10/2016 VITAMIN B12 INJECTION CPT-4: J3420 12/10/2016 THER/PROPH/DIAG INJ SC/IM CPT-4: 84104 10/13/2016 TRIAMCINOLONE ACET INJ NOS CPT-4: J3301 10/13/2016 THER/PROPH/DIAG INJ SC/IM CPT-4: 68021 09/03/2016 VITAMIN B12 INJECTION CPT-4: J3420 09/03/2016 THER/PROPH/DIAG INJ SC/IM CPT-4: 21819 07/29/2016 VITAMIN B12 INJECTION CPT-4: J3420 07/29/2016 THER/PROPH/DIAG INJ SC/IM CPT-4: 07498 06/03/2016 VITAMIN B12 INJECTION CPT-4: J3420 06/03/2016 PNEUMOCOCCAL VACC [address]: 32488254 CPT-4: 61593 04/22/2016 ADMIN PNEUMOCOCCAL VACCINE SNOMED CT: 55058903 CPT-4: G0009 04/22/2016 VITAMIN B12 INJECTION CPT-4: J3420 09/15/2015 THER/PROPH/DIAG INJ SC/IM CPT-4: 79887 09/15/2015 THER/PROPH/DIAG INJ SC/IM CPT-4: 57468 09/08/2015 VITAMIN B12 INJECTION CPT-4: J3420 09/08/2015 THER/PROPH/DIAG INJ SC/IM CPT-4: 64734 09/01/2015 VITAMIN B12 INJECTION CPT-4: J3420 09/01/2015 THER/PROPH/DIAG INJ SC/IM CPT-4: 03654 08/25/2015 VITAMIN B12 INJECTION CPT-4: J3420 08/25/2015 Vital Signs Date Vital 08/17/2017 Blood Pressure 1: 144/70 Code : 8480-6 BMI: 41.8 Code : 34263-0 Heart Rate 1 : 63 bpm Height: 4'11" SpO2: 97% Weight: 207 lbs 07/19/2017 Blood Pressure 1: 142/74 Code : 8480-6 BMI: 41.4 Code : 04357-7 Heart Rate 1 : 71 bpm Height: 4'11" SpO2: 96% Weight: 205 lbs 05/19/2017 Blood Pressure 1: 148/76 Code : 8480-6 BMI: 42.8 Code : 43906-5 Heart Rate 1 : 72 bpm Height: 4'11" SpO2: 94% Weight: 212 lbs 02/15/2017 Blood Pressure 1: 154/70 Code : 8480-6 BMI: 42.5 Code : 82700-5 Heart Rate 1 : 68 bpm Height: 4'11" SpO2: 97% Weight: 210 lbs 8 oz 11/16/2016 Blood Pressure 1: 142/78 Code : 8480-6 BMI: 41.6 Code : 79486-0 Heart Rate 1 : 68 bpm Height: 4'11" SpO2: 95% Temperature: 36.0 (C) / 96.8 (F) Weight: 206 lbs 08/19/2016 Blood Pressure 1: 120/74 Code : 8480-6 BMI: 41.6 Code : 58908-1 Heart Rate 1 : 75 bpm Height: 4'11" SpO2: 95% Weight: 206 lbs 07/15/2016 Blood Pressure 1: 140/76 Code : 8480-6 BMI: 42.0 Code : 13108-5 Heart Rate 1 : 76 bpm Height: 4'11" SpO2: 96% Weight: 208 lbs 06/03/2016 Blood Pressure 1: 130/78 Code : 8480-6 BMI: 42.8 Code : 20593-3 Heart Rate 1 : 72 bpm Height: 4'11" SpO2: 98% Weight: 212 lbs 04/22/2016 Blood Pressure 1: 142/84 Code : 8480-6 BMI: 41.8 Code : 29657-4 Heart Rate 1 : 86 bpm Height: 4'11" SpO2: 92% Weight: 207 lbs 01/22/2016 Blood Pressure 1: 162/64 Code : 8480-6 BMI: 41.2 Code : 21713-8 Heart Rate 1 : 70 bpm Height: 4'11" SpO2: 97% Weight: 204 lbs 10/23/2015 Blood Pressure 1: 130/70 Code : 8480-6 BMI: 40.4 Code : 28340-6 Heart Rate 1 : 72 bpm Height: 4'11" SpO2: 95% Weight: 200 lbs 09/12/2015 Blood Pressure 1: 142/62 Code : 8480-6 BMI: 39.4 Code : 11946-6 Heart Rate 1 : 63 bpm Height: 4'11" SpO2: 96% Weight: 195 lbs 08/05/2015 Blood Pressure 1: 144/60 Code : 8480-6 BMI: 41.0 Code : 75732-7 Heart Rate 1 : 92 bpm Height: 4'11" SpO2: 90% SpO2: 97% Weight: 203 lbs 04/03/2015 Blood Pressure 1: 142/68 Code : 8480-6 BMI: 40.6 Code : 51652-2 Heart Rate 1 : 77 bpm Height: 4'11" SpO2: 95% Weight: 201 lbs 01/30/2015 Blood Pressure 1: 150/72 Code : 8480-6 BMI: 40.2 Code : 98645-3 Heart Rate 1 : 64 bpm Height: 4'11" Weight: 199 lbs 01/02/2015 Blood Pressure 1: 136/72 Code : 8480-6 BMI: 39.8 Code : 12908-4 Heart Rate 1 : 68 bpm Height: 4'11" Weight: 197 lbs Functional Status No Functional Status data History of Present Illness Symptom Name Status Result Effective Date Notes diabetes mellitus Quality insulin dependent 08/17/2017 None [...] data Encounters Encounter Performer Location Codes Date 03294 EST. PATIENT, LEVEL IV Diagnosis: Essential (primary) hypertension[ICD10: I10] Diagnosis: Type 2 diabetes mellitus with hyperglycemia[ICD10: E11.65] Diagnosis: Vitamin B12 deficiency anemia due to intrinsic factor deficiency[ ICD10: D51.0] Chasity Knox MD, [facility] CPT-4: 66977 95311 EST. PATIENT, LEVEL IV Diagnosis: Type 2 diabetes mellitus with hyperglycemia[ICD10: E11.65] Diagnosis: Essential (primary) hypertension[ICD10: I10] Diagnosis: Vitamin B12 deficiency anemia due to intrinsic factor deficiency[ ICD10: D51.0] Chasity Knox MD, [facility] CPT-4: 27548 ([id number]) 71507 EST. PATIENT, LEVEL IV Diagnosis: Essential (primary) hypertension[ICD10: I10] Diagnosis: Type 2 diabetes mellitus with hyperglycemia[ICD10: E11.65] Diagnosis: Hypothyroidism, unspecified[ICD10: E03.9] Diagnosis: Vitamin B12 deficiency anemia due to intrinsic factor deficiency[ ICD10: D51.0] Diagnosis: Chronic kidney disease, stage 3 (moderate)[ICD10: N18.3] Giselle Knox MD , [facility] CPT-4: 83106 05/19/2017 ([id number]) 02908 EST. PATIENT, LEVEL IV Diagnosis: Essential (primary) hypertension[ICD10: I10] Diagnosis: Type 2 diabetes mellitus with hyperglycemia[ICD10: E11.65] Diagnosis: Hypothyroidism, unspecified[ICD10: E03.9] Giselle Knox MD, [facility] CPT-4: 45999 02/15/2017 [id number] 86890 EST. PATIENT, LEVEL IV Diagnosis: Type 2 diabetes mellitus with hyperglycemia[ICD10: E11.65] Diagnosis: Cough[ICD10: R05] Diagnosis: Acute upper respiratory infection, unspecified[ICD10: J06.9] Diagnosis: Hypothyroidism, unspecified[ICD10: E03.9] Diagnosis: Chronic kidney disease, stage 3 (moderate)[ICD10: N18.3] Giselle Knox MD , [facility] CPT-4: 27183 11/16/2016 ([id number]) 87833 EST. PATIENT, LEVEL IV Diagnosis: Type 2 diabetes mellitus with hyperglycemia[ICD10: E11.65] Diagnosis: Hypothyroidism, unspecified[ICD10: E03.9] Diagnosis: Essential (primary) hypertension[ICD10: I10] Giselle Knox MD, [facility] CPT-4: 60618 08/19/2016 ([id number]) 72947 EST. PATIENT, LEVEL III Diagnosis: Type 2 diabetes mellitus with hyperglycemia[ICD10: E11.65] Giselle Knox MD, [facility] CPT-4: 67535 07/15/2016 ([id number]) 12155 EST. PATIENT, LEVEL IV Diagnosis: Type 2 diabetes mellitus with hyperglycemia[ICD10: E11.65] Diagnosis: Atrophy of thyroid (acquired)[ICD10: E03.4] Diagnosis: Vitamin B12 deficiency anemia due to intrinsic factor deficiency[ ICD10: D51.0] Diagnosis: Chronic kidney disease, stage 3 (moderate)[ICD10: N18.3] Diagnosis: Essential (primary) hypertension[ICD10: I10] Jennifer Knox MD, [facility] CPT-4: 48922 06/03/2016 ([id number]) 87021 EST. PATIENT, LEVEL III Diagnosis: Type 2 diabetes mellitus with hyperglycemia[ICD10: E11.65] Diagnosis: Essential (primary) hypertension[ICD10: I10] Diagnosis: Chronic kidney disease, stage 3 (moderate)[ICD10: N18.3] Diagnosis: VACCIN STREP PNEUMONIAE[ICD10: Z23] Giselle Knox MD, [facility] CPT-4: 14788 04/22/2016 49806 EST. PATIENT, LEVEL IV Diagnosis: Type 2 diabetes mellitus with hyperglycemia[ICD10: E11.65] Diagnosis: Essential (primary) hypertension[ICD10: I10] Chasity Knox MD, [facility] CPT-4: 97598 01/22/2016 ([id number]) 25424 EST. PATIENT, LEVEL III Diagnosis: Type 2 diabetes mellitus with hyperglycemia[ICD10: E11.65] Diagnosis: Essential (primary) hypertension[ICD10: I10] Giselle Knox MD, [facility] CPT-4: 07133 10/23/2015 09383 EST. PATIENT, LEVEL IV Diagnosis: Type 2 diabetes mellitus with hyperglycemia[ICD10: E11.65] Diagnosis: Vitamin B12 deficiency anemia due to intrinsic factor deficiency[ ICD10: D51.0] Diagnosis: Essential (primary) hypertension[ICD10: I10] Chasity Knox MD, [facility] CPT-4: 92758 09/12/2015 ([id number]) 95603 EST. PATIENT, LEVEL IV Diagnosis: Essential (primary) hypertension[ICD10: I10] Diagnosis: Type 2 diabetes mellitus with hyperglycemia[ICD10: E11.65] Diagnosis: Hypothyroidism, unspecified[ICD10: E03.9] Giselle Knox MD, [facility] CPT-4: 83790 08/05/2015 ([id number]) 37303 EST. PATIENT, LEVEL III Diagnosis: ESSENTIAL HYPERTENSION[ICD9: 401.9] Diagnosis: DIABETES TYPE II[ICD9: 250.00] Jennifer Knox MD, [facility] CPT- 4: 83063 04/03/2015 ([id number]) 24332 EST. PATIENT, LEVEL IV Diagnosis: ESSENTIAL HYPERTENSION[ICD9: 401.9] Diagnosis: DIABETES TYPE II[ICD9: 250.00] Diagnosis: Hypothyroidism[ICD9: 244.9] Giselle Knox MD, [facility] CPT-4: 49541 01/30/2015 ([id number]) OFFICE VISIT, NEW - LEVEL 4 Diagnosis: ESSENTIAL HYPERTENSION[ICD9: 401.9] Diagnosis: DIABETES TYPE II[ICD9: 250.00] Diagnosis: Impacted cerumen[ICD9: 380.4] Jennifer Knox MD, [facility] CPT- 4: 13447 01/02/2015 Plan of Care Planned Activity Notes Codes Status Date Visit Plan: Hypertension - well controlled - [...] glucose control. 08/17/2017 Appointment: Chasity Caldwell WPtel: [facility] [facility] (15 min) Moderate 08/17/2017 Patient Education: Patient [...] at home. 07/19/2017 Appointment: Chasity Caldwell WPtel: [facility] [facility] (15 min) Moderate 07/19/2017 Patient Education: Patient Medication Summary Completed 07/19/2017 Appointment: Jennifer Knox WPtel: [facility]5 [facility] (15 min) Moderate 06/13/2017 Visit [...] to medications. 05/19/2017 [phone] (30 min) Complex 05/19/2017 Patient Education: [...] of control. 02/15/2017 Appointment: [phone] [phone] [place] (15 min) Moderate 02/15/2017 Patient Education: Patient [...] today 11/16/2016 Appointment: [phone] [phone] [place] (15 min) Moderate 11/16/2016 Patient [...] of control. 08/19/2016 Appointment: Giselle Mccoy WPtel: [phone] (15 min) Moderate 08/19/2016 Patient Education: Patient Medication Summary Completed 08/19/2016 Patient Education: Obesity Completed 08/19/2016 Care Plan: Tsh Cancelled 08/19/2016 [facility] Cancelled 08/19/2016 Care Plan: Lipid Cancelled 08/19/2016 Care Plan: Free T4 patient coming back next week Cancelled 08/19/2016 Appointment: Injection 07/29/2016 Patient Education: Patient Medication Summary Completed 07/29/2016 Appointment: Giselle Mccoy WPtel: [phone] (30 min) Complex 07/22/2016 Visit Plan: Diabetes-having hypoglycemia in the mornings- insulin adjusted-patient and verbalized understanding of plan. Follow up in 1 month-call sooner if still having low blood sugars. Sinus congestion- start claritin 07/15/2016 Appointment: Giselle Mccoy WPtel: [facility] [phone] (30 min) Complex 07/15/2016 Patient Education: Patient [...] of control. 06/03/2016 Appointment: Jennifer Knox WPtel[facility] ([facility] min) Moderate 06/03/2016 Patient [...] 1 MONTH 04/22/2016 Appointment: Giselle Mccoy WPtel: [phone] (15 min) Moderate 04/22/2016 Patient Education: [...] if needed. 01/02/2015 [facility]ment: [phone] [place] ([place] New Patient 01/02/2015 Patient Education: Patient Medication Summary Completed 01/02/2015 Patient Education: Hypertension Completed 01/02/2015 Instructions Comment . Hypertension - well controlled [...] FOR REPEAT HGB A1C IN 1 MONTH Decrease morning humulin 70/30 to 18 units [...] FOR REPEAT HGB A1C IN 1 MONTH zpack anti histamine such as zyrtec daily [...] to assure normal liver response to medications. BRING YOUR BLOOD SUGAR LOG TO YOUR [...] readings are starting to become less controlled. CHECK LABS WITH NEXT APPOINTMENT . Hypertension [...]
--- OUTSIDE RECORDS SUMMARY | 2018-06-17 10:51 | XMS REPORT | CCD ---
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 Name Role Phone PP Unavailable CCM Unavailable Summary Purpose Interface Exchange Insurance Providers Payer name Policy type / Coverage type Covered alliance party ID Effective Begin Date Effective End Date [facility] Commercial Insurance [id number] Unknown Family history Runs in the family [...] Fill Instructions terazosin 2 mg capsule RxNorm: 269148 Capsule(s) TAKE ONE CAPSULE BY MOUTH DAILY 09/07/2017 03/05/2018 Active Lantus Solostar 100 unit/mL (3 mL) subcutaneous insulin pen RxNorm: 386684 INJECT 35 UNITS UNDER THE SKIN EVERY NIGHT AT BEDTIME 201712/26/2019 Active One Touch Test strips RxNorm: 1 test Miscellaneous BID 201708/16/2018 Active Contour Test Strips RxNorm: TEST BLOOD SUGAR TWO TIMES A DAY E11.65 08/22/2017 02/22/2019 Active Tamiflu 75 mg capsule RxNorm: 957867 1 Capsule(s) PO daily 08/1708/16/2017 Inactive Tamiflu 75 mg capsule RxNorm: 475838 1 Capsule(s) PO daily 08/1708/26/2017 Inactive cyanocobalamin (vit B-12) 1,000 mcg/mL injection solution RxNorm: 756105 1 Milliliter(s) Inj 08/17/2017 08/17/2017 Inactive carvedilol 12.5 mg tablet RxNorm: 664329 TAKE ONE TABLET BY MOUTH TWICE A DAY 08/10/2017 08/04/2018 Active cyanocobalamin (vit B-12) 1,000 mcg/mL injection solution RxNorm: 913417 1 Milliliter(s) Inj 07/19/2017 07/19/2017 Inactive Humulin 70/30 100 unit/mL subcutaneous suspension RxNorm: 185358 14 Unit(s) SQ QA 07/06/2017 No Stop Date Active Lantus Solostar 100 unit/mL (3 mL) subcutaneous insulin pen RxNorm: 853015 26 Unit(s) SQ QHS 07/06/2017 08/28/2017 Inactive losartan 100 mg tablet RxNorm: 321426 TAKE ONE TABLET BY MOUTH DAILY 06/07/2017 04/02/2018 Active Lantus Solostar 100 unit/mL (3 mL) subcutaneous insulin pen RxNorm: 652196 28 Unit(s) SQ QHS 05/19/2017 07/05/2017 Inactive cyanocobalamin (vit B-12) 1,000 mcg/mL injection solution RxNorm: 023156 1 Milliliter(s) Inj 05/19/2017 05/19/2017 Inactive terazosin 2 mg capsule RxNorm: 746273 TAKE ONE CAPSULE BY MOUTH DAILY 05/16/2017 09/06/2017 Inactive cyanocobalamin (vit B-12) 1,000 mcg/mL injection solution RxNorm: 308578 1 Milliliter(s) Inj 04/06/2017 04/06/2017 Inactive cyanocobalamin (vit B-12) 1,000 mcg/mL injection solution RxNorm: 478480 Milliliter(s) Inj 01/04/2017 01/04/2017 Inactive Humulin 70/30 100 unit/mL subcutaneous suspension RxNorm: 873341 18 Unit(s) SQ QAM 12/22/2016 06/04/2017 Inactive cyanocobalamin (vit B-12) 1,000 mcg/mL injection solution RxNorm: 964621 1 Milliliter(s) Inj 12/10/2016 12/10/2016 Inactive Zithromax Z-Jose 250 mg tablet RxNorm: 769122 1 Tablet(s) PO UD 11/16/2016 11/20/2016 Inactive terazosin 2 mg capsule RxNorm: 525835 TAKE ONE CAPSULE BY MOUTH DAILY 11/08/2016 05/06/2017 Inactive Lantus Solostar 100 unit/mL (3 mL) subcutaneous insulin pen RxNorm: 611643 INJECT 35 UNITS UNDER THE SKIN EVERY NIGHT AT BEDTIME 201607/18/2017 Inactive cyanocobalamin (vit B-12) 1,000 mcg/mL injection solution RxNorm: 605575 Milliliter(s) Inj 10/13/2016 10/13/2016 Inactive cyanocobalamin (vit B-12) 1,000 mcg/mL injection solution RxNorm: 870479 1 Milliliter(s) Inj 09/03/2016 09/03/2016 Inactive Contour Test Strips RxNorm: TEST BLOOD SUGAR TWO TIMES A DAY E11.65 08/19/2016 08/21/2017 Inactive carvedilol 12.5 mg tablet RxNorm: 975635 TAKE ONE TABLET BY MOUTH TWICE A DAY 08/05/2016 01/01/2017 Inactive carvedilol 12.5 mg tablet RxNorm: 19990924 TAKE ONE TABLET BY MOUTH TWICE A DAY 08/05/2016 01/01/2017 Inactive carvedilol 12.5 mg tablet RxNorm: 976234 1 Tablet(s) PO BID 05/201701/30/2017 Inactive cyanocobalamin (vit B-12) 1,000 mcg/mL injection solution RxNorm: 947584 Milliliter(s) Inj 07/29/2016 07/29/2016 Inactive Lantus Solostar 100 unit/mL (3 mL) subcutaneous insulin pen RxNorm: 900110 30 Unit(s) SQ QHS 07/15/2016 05/18/2017 Inactive Humulin 70/30 100 unit/mL subcutaneous suspension RxNorm: 355199 18 Unit(s) SQ QAM 07/15/2016 12/21/2016 Inactive losartan 100 mg tablet RxNorm: 653061 TAKE ONE TABLET BY MOUTH DAILY 07/08/2016 06/02/2017 Inactive terazosin 2 mg capsule RxNorm: 914884 TAKE ONE CAPSULE BY MOUTH DAILY 06/10/2016 11/06/2016 Inactive cyanocobalamin (vit B-12) 1,000 mcg/mL injection solution RxNorm: 749417 1 Milliliter(s) Inj 06/03/2016 06/03/2016 Inactive Humulin 70/30 100 unit/mL subcutaneous suspension RxNorm: 017540 Unit(s) INJECT 10 UNITS UNDER THE SKIN 06/01/20162015 Inactive Request already responded to by other means (e.g. phone or fax) Humulin 70/30 100 unit/mL subcutaneous suspension RxNorm: 880623 INJECT 10 UNITS UNDER THE SKIN BEFORE MEALS 06/01/201601/2016 Inactive Request already responded to by other means (e.g. phone or fax) Lantus Solostar 100 unit/mL (3 mL) subcutaneous insulin pen RxNorm: 581787 35 Unit(s) SQ QHS 05/26/2016 07/14/2016 Inactive Humulin 70/30 100 unit/mL subcutaneous suspension RxNorm: 427967 10 Unit(s) SQ QAM 05/24/2016 10/02/2016 Inactive Humulin 70/30 100 unit/mL subcutaneous suspension RxNorm: 087544 21 Unit(s) SQ QAM 05/24/2016 05/23/2016 Inactive Lantus Solostar 100 unit/mL (3 mL) subcutaneous insulin pen RxNorm: 110092 32 Unit(s) SQ QHS 04/22/2016 05/25/2016 Inactive Humulin 70/30 100 unit/mL subcutaneous suspension RxNorm: 172723 21 Unit(s) SQ QAM 04/22/2016 05/24/2016 Inactive with breakfast hydrochlorothiazide 25 mg tablet RxNorm: 591031 TAKE ONE TABLET BY MOUTH DAILY 02/04/2016 02/16/2016 Inactive terazosin 2 mg capsule RxNorm: 789691 Capsule(s) TAKE ONE CAPSULE BY MOUTH DAILY. 12/01/2015 05/28/2016 Inactive Humulin 70/30 100 unit/mL subcutaneous suspension RxNorm: 263527 INJECT 10 UNITS UNDER THE SKIN BEFORE MEALS 11/06/2015 Inactive hydrochlorothiazide 25 mg tablet RxNorm: 787289 1 Tablet(s) PO daily 10/06/2015 02/02/2016 Inactive cyanocobalamin (vit B-12) 1,000 mcg/mL injection solution RxNorm: 236876 Milliliter(s) Inj 09/15/2015 09/15/2015 Inactive Humulin 70/30 100 unit/mL subcutaneous suspension RxNorm: 146033 INJECT 10 UNITS UNDER THE SKIN BEFORE MEALS 09/08/2015 Inactive cyanocobalamin (vit B-12) 1,000 mcg/mL injection solution RxNorm: 917266 Milliliter(s) Inj 09/08/2015 09/08/2015 Inactive terazosin 2 mg capsule RxNorm: 722564 TAKE ONE CAPSULE BY MOUTH DAILY. DISCONTINUE 5 MG CAPSULES 09/01/201511/28 Inactive cyanocobalamin (vit B-12) 1,000 mcg/mL injection solution RxNorm: 720843 Milliliter(s) Inj 09/01/2015 09/01/2015 Inactive cyanocobalamin (vit B-12) 1,000 mcg/mL injection solution RxNorm: 137016 Milliliter(s) Inj 08/25/2015 08/25/2015 Inactive levothyroxine 112 mcg tablet RxNorm: 563334 1 Tablet(s) PO daily 08/06/2015 02/14/2017 Inactive Lantus Solostar 100 unit/mL (3 mL) subcutaneous insulin pen RxNorm: 581713 35 Unit(s) SQ QHS 08/06/2015 04/21/2016 Inactive Humulin 70/30 100 unit/mL subcutaneous suspension RxNorm: 741671 20 Unit(s) SQ AC 08/05/2015 04/21/2016 Inactive with breakfast carvedilol 12.5 mg tablet RxNorm: 123378 1 Tablet(s) PO BID 06/201601/31/2016 Inactive Humulin 70/30 100 unit/mL subcutaneous suspension RxNorm: 762298 10 Unit(s) SQ AC 07/22/2015 08/04/2015 Inactive losartan 100 mg tablet RxNorm: 264979 TAKE ONE TABLET BY MOUTH DAILY 06/25/2015 06/18/2016 Inactive Lantus Solostar 100 unit/mL (3 mL) subcutaneous insulin pen RxNorm: 802514 30 Unit(s) SQ QHS 06/18/2015 08/05/2015 Inactive terazosin 2 mg capsule RxNorm: 120032 1 Capsule(s) PO daily 08/11/2015 Inactive DC the 5mg order terazosin 2 mg capsule RxNorm: 871481 1 Capsule(s) PO daily 04/13/2015 Inactive Synthroid 25 mcg tablet RxNorm: 466446 1 Tablet(s) PO daily 02/14/2017 Inactive Synthroid 25 mcg tablet RxNorm: 106100 1 Tablet(s) PO daily 04/10/2015 Inactive Lantus Solostar 100 unit/mL (3 mL) subcutaneous insulin pen RxNorm: 404731 30 Unit(s) SQ QHS 04/04/2015 06/17/2015 Inactive terazosin 5 mg tablet RxNorm: 376582 1 Tablet(s) PO daily 201404/13/2015 Inactive Lantus Solostar 100 unit/mL (3 mL) subcutaneous insulin pen RxNorm: 761131 25 Unit(s) SQ QHS 01/08/2015 04/03/2015 Inactive carvedilol 25 mg tablet RxNorm: 324563 1 Tablet(s) PO BID 01/0201/31/2015 Inactive terazosin 5 mg tablet RxNorm: 143064 1 Tablet(s) PO daily 201401/01/2015 Inactive levothyroxine 125 mcg tablet RxNorm: 679731 1 Tablet(s) PO daily 01/02/2015 01/31/2015 Inactive terazosin 5 mg tablet RxNorm: 274492 1/2 Tablet(s) PO daily 05/201501/31/2015 Inactive losartan 100 mg tablet RxNorm: 193982 1 Tablet(s) PO daily 08/201404/22/2015 Inactive losartan 100 mg tablet RxNorm: 015169 1 Tablet(s) PO daily 08/201412/23/2014 Inactive Contour Test Strips RxNorm: Miscellaneous test blood sugars BID 12/06/2014 12/05/2014 Inactive dx 250.00 Contour Test Strips RxNorm: Miscellaneous test blood sugars BID or UD 12/06/2014 06/23/2015 Inactive dx 250.00 [SAVINGS FOR NON-COVERED DRUGS -- BIN:[id number], PCN: [id number], Group: [id number], ID# [id number], Questions: . THIS IS NOT INSURANCE.] folic acid 1 mg tablet RxNorm: 674142 1 Tablet(s) PO QHS No Start Date Active Microlet Lancet RxNorm : Miscellaneous Test BID or Ud No Start Date Active 250.0 aspirin 81 mg tablet,delayed release RxNorm: 928611 1 Tablet(s) PO daily No Start Date Active Stool Softener 100 mg capsule RxNorm: 2321032 1 Capsule(s) PO every other day No Start Date Active levothyroxine 100 mcg tablet RxNorm: 557138 1 Tablet(s) PO daily No Start Date Active folic acid oral RxNorm : 4511 oral No Start Date 05/19/2017 Inactive cyanocobalamin (vit B-12) 100 mcg tablet RxNorm: 673630 1 Tablet(s) PO daily No Start Date 02/14/2017 Inactive hydrochlorothiazide 25 mg tablet RxNorm: 765752 1 Tablet(s) PO daily No Start Date 10/05/2015 Inactive Stool Softener 100 mg capsule RxNorm: 4238633 1 Capsule(s) PO daily No Start Date 05/18/2017 Inactive Humulin 70/30 100 unit/mL subcutaneous suspension RxNorm: 246663 20 Unit(s) SQ QAM No Start Date 07/21/2015 Inactive Lantus Solostar 100 unit/mL (3 mL) subcutaneous insulin pen RxNorm: 522265 20 Unit(s) SQ QHS No Start Date 01/07/2015 Inactive ferrous sulfate 325 mg (65 mg iron) tablet RxNorm: 009433 1 Tablet(s) PO daily No Start Date 05/18/2017 Inactive Medication Administered Medication Codes Instructions Start Date Status cyanocobalamin (vit B-12) 1,000 mcg/mL injection solution RxNorm: 538195 1Milliliter 08/17/2017 No longer Active cyanocobalamin (vit B-12) 1,000 mcg/mL injection solution RxNorm: 084545 1Milliliter 07/19/2017 No longer Active cyanocobalamin (vit B-12) 1,000 mcg/mL injection solution RxNorm: 664492 1Milliliter 05/19/2017 No longer Active cyanocobalamin (vit B-12) 1,000 mcg/mL injection solution RxNorm: 328314 1Milliliter 04/06/2017 No longer Active cyanocobalamin (vit B-12) 1,000 mcg/mL injection solution RxNorm: 613742 Milliliter 01/04/2017 No longer Active cyanocobalamin (vit B-12) 1,000 mcg/mL injection solution RxNorm: 596902 1Milliliter 12/10/2016 No longer Active cyanocobalamin (vit B-12) 1,000 mcg/mL injection solution RxNorm: 263245 Milliliter 10/13/2016 No longer Active cyanocobalamin (vit B-12) 1,000 mcg/mL injection solution RxNorm: 781191 1Milliliter 09/03/2016 No longer Active cyanocobalamin (vit B-12) 1,000 mcg/mL injection solution RxNorm: 982617 Milliliter 07/29/2016 No longer Active cyanocobalamin (vit B-12) 1,000 mcg/mL injection solution RxNorm: 770307 1Milliliter 06/03/2016 No longer Active cyanocobalamin (vit B-12) 1,000 mcg/mL injection solution RxNorm: 568834 Milliliter 09/15/2015 No longer Active cyanocobalamin (vit B-12) 1,000 mcg/mL injection solution RxNorm: 610859 Milliliter 09/08/2015 No longer Active cyanocobalamin (vit B-12) 1,000 mcg/mL injection solution RxNorm: 055940 Milliliter 09/01/2015 No longer Active cyanocobalamin (vit B-12) 1,000 mcg/mL injection solution RxNorm: 933970 Milliliter 08/25/2015 No longer Active Immunizations Vaccine [...] Observation Code Item Item Code Result Date Cbc With Differential Ord2 WBC 8.04 K/ul 05/19/2017 Cbc With Differential Ord2 RBC 3.93 M/ul 05/19/2017 Cbc With Differential Ord2 HGB 11.9 g/dl 05/19/2017 Cbc With Differential Ord2 HCT 36.8 % 05/19/2017 Cbc With Differential Ord2 Neut% 70.8 % 05/19/2017 Cbc With Differential Ord2 MCV 93.6 fl 05/19/2017 Cbc With Differential Ord2 Lymph% 20.4 % 05/19/2017 Cbc With Differential Ord2 MCH 30.3 pg 05/19/2017 Cbc With Differential Ord2 [place]% 6.8 % 05/19/2017 Cbc With Differential Ord2 MCHC 32.3 pg 05/19/2017 Cbc With Differential Ord2 Eos% 1.9 % 05/19/2017 Cbc With Differential Ord2 PLT 174 K/ul 05/19/2017 Cbc With Differential Ord2 Baso% 0.1 % 05/19/2017 Cbc With Differential Ord2 Neut ABS# 5.69 K/ul 05/19/2017 Cbc With Differential Ord2 RDW 14.0 % 05/19/2017 Cbc With Differential Ord2 Lymph ABS# 1.64 K/ul 05/19/2017 Cbc With Differential Ord2 [place] ABS# 0.6 K/ul 05/19/2017 Cbc With Differential Ord2 Eos ABS# 0.2 K/ul 05/19/2017 Cbc With Differential Ord2 Baso ABS# 0.0 K/ul 05/19/2017 B12 Lzt445 B12 >1500.00 pg/ml 05/19/2017 Tsh Ord6 hTSH II 1.73 uIU/mL 05/19/2017 Free T4 Dyd411 FREE T4 1.10 ng/dL 05/19/2017 Comp Metabolic Xqb927 NA 140 mEq/L 05/19/2017 Comp Metabolic Umi231 K 3.8 mEq/L 05/19/2017 Comp Metabolic Yrs581 CL 108 mEq/L 05/19/2017 Comp Metabolic Jvo840 CO2 21.0 mEq/L 05/19/2017 Comp Metabolic Vru935 ANION GAP 15 05/19/2017 Comp Metabolic Nyx043 GLUCOSE 207 mg/dL 05/19/2017 Comp Metabolic Hek112 Creat 1.0 mg/dL 05/19/2017 Comp Metabolic Dmn425 eGFR 55 ml/min/1.73m2 05/19/2017 Comp Metabolic Ytk962 BUN 21 mg/dL 05/19/2017 Comp Metabolic Mni673 B/C Ratio 20.4 Ratio 05/19/2017 Comp Metabolic Pbr610 CALCIUM 9.1 mg/dL 05/19/2017 Comp Metabolic Fpu789 ALK PHOS 74 U/L 05/19/2017 Comp Metabolic Bek859 AST(SGOT) 32 U/L 05/19/2017 Comp Metabolic Qld609 ALT(SGPT) 15 U/L 05/19/2017 Comp Metabolic Zpq778 BILI T 0.6 mg/dL 05/19/2017 Comp Metabolic Smg043 ALBUMIN 3.9 g/dL 05/19/2017 Comp Metabolic Hec040 TPRO 6.2 g/dL 05/19/2017 Comp Metabolic Bog308 GLOB 2.3 g/dL 05/19/2017 Comp Metabolic Wxr957 A/G Ratio 1.6 Ratio 05/19/2017 Comp Metabolic Fou401 Osmo 288 mOsmo 05/19/2017 %Hba1C Omc824 % HbA1c 04474-1 6.8 % 05/19/2017 %Hba1C Cbk870 Gluc Ave 148 mg/dL 05/19/2017 Cbc With Differential Ord2 WBC 6.80 K/ul 12/10/2016 Cbc With Differential Ord2 RBC 4.17 M/ul 12/10/2016 Cbc With Differential Ord2 HGB 12.2 g/dl 12/10/2016 Cbc With Differential Ord2 Neut% 53.7 % 12/10/2016 Cbc With Differential Ord2 HCT 38.5 % 12/10/2016 Cbc With Differential Ord2 MCV 92.3 fl 12/10/2016 Cbc With Differential Ord2 Lymph% 36.8 % 12/10/2016 Cbc With Differential Ord2 MCH 29.3 pg 12/10/2016 Cbc With Differential Ord2 Whitley% 7.1 % 12/10/2016 Cbc With Differential Ord2 [...] 2.50 K/ul 12/10/2016 Cbc With Differential Ord2 [place] ABS# 0.5 K/ul 12/10/2016 Cbc With Differential Ord2 Eos ABS# 0.1 K/ul 12/10/2016 Cbc With Differential Ord2 Baso ABS# 0.0 K/ul 12/10/2016 B12 Noi492 B12 222.00 pg/ml 12/10/2016 %Hba1C Rta319 % HbA1c 36397-4 7.5 % 11/16/2016 %Hba1C Pah799 Gluc Ave 169 mg/dL 11/16/2016 Tsh Ord6 hTSH II 2.50 uIU/mL 11/16/2016 Free T4 Set307 FREE T4 1.03 ng/dL 11/16/2016 Comp Metabolic Wyl616 NA 138 mEq/L 11/16/2016 Comp Metabolic Hoq680 K 3.8 mEq/L 11/16/2016 Comp Metabolic Rxz605 CL 103 mEq/L 11/16/2016 Comp Metabolic Ykr740 CO2 26.0 mEq/L 11/16/2016 Comp Metabolic Zhv219 ANION GAP 13 11/16/2016 Comp Metabolic Twu137 GLUCOSE 235 mg/dL 11/16/2016 Comp Metabolic Ozr821 Creat 0.9 mg/dL 11/16/2016 Comp Metabolic Bfw730 eGFR 62 ml/min/1.73m2 11/16/2016 Comp Metabolic Hsd312 BUN 20 mg/dL 11/16/2016 Comp Metabolic Neb365 B/C Ratio 21.7 Ratio 11/16/2016 Comp Metabolic Err580 CALCIUM 8.9 mg/dL 11/16/2016 Comp Metabolic Xwu105 ALK PHOS 75 U/L 11/16/2016 Comp Metabolic Ahr881 AST(SGOT) 30 U/L 11/16/2016 Comp Metabolic Hhs836 ALT(SGPT) 13 U/L 11/16/2016 Comp Metabolic Lqq908 BILI T 0.6 mg/dL 11/16/2016 Comp Metabolic Xzh245 ALBUMIN 3.8 g/dL 11/16/2016 Comp Metabolic Ump447 TPRO 6.8 g/dL 11/16/2016 Comp Metabolic Unb308 GLOB 3.1 g/dL 11/16/2016 Comp Metabolic Lnd109 A/G Ratio 1.2 Ratio 11/16/2016 Comp Metabolic Jmh825 Osmo 286 mOsmo 11/16/2016 Folate Ord36 Folate >23.80 ng/mL 05/21/2016 Tsh Ord6 hTSH II 3.18 uIU/mL 05/21/2016 Free T4 Zvv399 FREE T4 1.03 ng/dL 05/21/2016 Lipid Ord30 CHOL 212 mg/dL 05/21/2016 Lipid Ord30 HDL 43.0 mg/dl 05/21/2016 Lipid Ord30 TRIG 164 mg/dL 05/21/2016 Lipid Ord30 LDL 136 mg/dL 05/21/2016 Lipid Ord30 C/HDL 4.9 Ratio 05/21/2016 B12 Wdf856 B12 159.00 pg/ml 05/21/2016 %Hba1C Pge578 % HbA1c 31638-3 7.5 % 05/21/2016 %Hba1C Wqq963 Gluc Ave 169 mg/dL 05/21/2016 CHEM 14 7034458 AST 33 U/L 03/15/2016 CHEM 14 9710748 ALT 13 U/L 03/15/2016 CHEM 14 1394666 BUN 18 mg/dL 03/15/2016 CHEM 14 0042874 ALBUMIN 3.9 g/dL 03/15/2016 CHEM 14 4542540 CHLORIDE 105 mmol/L 03/15/2016 CHEM 14 3924216 Bili Total 0.4 mg/dL 03/15/2016 CHEM 14 4484250 ALK PHOS 60 U/L 03/15/2016 CHEM 14 0797439 SODIUM 138 mmol/L 03/15/2016 CHEM 14 8099200 CREATININE 0.99 mg/dL 03/15/2016 CHEM 14 9975183 CALCIUM 9.4 mg/dL 03/15/2016 CHEM 14 2645234 POTASSIUM 3.8 mmol/L 03/15/2016 CHEM 14 1466734 TOTAL PROTEIN 6.7 g/dL 03/15/2016 CHEM 14 8588458 GLUCOSE 109 mg/dL 03/15/2016 CHEM 14 5034480 Bicarbonate 27 mmol/L 03/15/2016 CHEM 14 8559787 AGAP 6 mmol/L 03/15/2016 GFR CALC 0805414 GFR Non Afr Amr 54 mL/min 03/15/2016 GFR CALC 9480872 GFR Afr Amr >60 mL/min 03/15/2016 Iron Ord72 Iron 66 ug/dl 08/07/2015 B12 Fqk487 B12 46.00 pg/ml 08/07/2015 Cbc With Differential Ord2 WBC 4.9 [...] With Differential Ord2 RDW 16.6 % 08/05/2015 %Hba1C Ykh151 % HbA1c 14221-3 8.1 % 08/05/2015 %Hba1C Fxd270 Gluc Ave 186 mg/dL 08/05/2015 Tsh Ord6 hTSH II 0.36 uIU/mL 08/05/2015 Comp Metabolic Dmx296 NA 137 mEq/L 08/05/2015 Comp Metabolic Wnk148 K 4.5 mEq/L 08/05/2015 Comp Metabolic Mvx938 CL 104 mEq/L 08/05/2015 Comp Metabolic Rbr013 CO2 26.0 mEq/L 08/05/2015 Comp Metabolic Dov569 ANION GAP 12 08/05/2015 Comp Metabolic Hgt323 GLUCOSE 146 mg/dL 08/05/2015 Comp Metabolic Rfc603 Creat 1.0 mg/dL 08/05/2015 Comp Metabolic Ptc598 eGFR 56 ml/min/1.73m2 08/05/2015 Comp Metabolic Nsv928 BUN 23 mg/dL 08/05/2015 Comp Metabolic Joa930 B/C Ratio 22.8 Ratio 08/05/2015 Comp Metabolic Bli605 CALCIUM 9.3 mg/dL 08/05/2015 Comp Metabolic Agc744 ALK PHOS 71 U/L 08/05/2015 Comp Metabolic Aig533 AST(SGOT) 33 U/L 08/05/2015 Comp Metabolic Aiu321 ALT(SGPT) 15 U/L 08/05/2015 Comp Metabolic Mcj387 BILI T 0.6 mg/dL 08/05/2015 Comp Metabolic Ctm959 ALBUMIN 3.9 g/dL 08/05/2015 Comp Metabolic Xub982 TPRO 6.5 g/dL 08/05/2015 Comp Metabolic Qwp620 GLOB 2.6 g/dL 08/05/2015 Comp Metabolic Pfp187 A/G Ratio 1.5 Ratio 08/05/2015 Comp Metabolic Aoq865 Osmo 280 mOsmo 08/05/2015 Free T4 Pnq721 FREE T4 1.33 ng/dL 08/05/2015 Free T4 Bfw642 FREE T4 0.91 ng/dL 04/11/2015 Tsh Ord6 hTSH II 6.71 uIU/mL 04/10/2015 Comp Metabolic Wwi378 NA 134 mEq/L 04/10/2015 Comp Metabolic Udf103 K 4.1 mEq/L 04/10/2015 Comp Metabolic Obn831 CL 105 mEq/L 04/10/2015 Comp Metabolic Yhg389 CO2 26.0 mEq/L 04/10/2015 Comp Metabolic Kvh730 ANION GAP 7 04/10/2015 Comp Metabolic Yne539 GLUCOSE 126 mg/dL 04/10/2015 Comp Metabolic Nsd038 Creat 1.0 mg/dL 04/10/2015 Comp Metabolic Mqe285 eGFR 58 ml/min/1.73m2 04/10/2015 Comp Metabolic Pms633 BUN 29 mg/dL 04/10/2015 Comp Metabolic Xfl336 B/C Ratio 29.6 Ratio 04/10/2015 Comp Metabolic Fmv564 CALCIUM 9.3 mg/dL 04/10/2015 Comp Metabolic Xgm217 ALK PHOS 63 U/L 04/10/2015 Comp Metabolic Ims705 AST(SGOT) 31 U/L 04/10/2015 Comp Metabolic Cfc587 ALT(SGPT) 14 U/L 04/10/2015 Comp Metabolic Knr853 BILI T 0.6 mg/dL 04/10/2015 Comp Metabolic Jdf437 ALBUMIN 3.9 g/dL 04/10/2015 Comp Metabolic Hla194 TPRO 6.3 g/dL 04/10/2015 Comp Metabolic Pjp438 GLOB 2.4 g/dL 04/10/2015 Comp Metabolic Jeb408 A/G Ratio 1.6 Ratio 04/10/2015 Comp Metabolic Yez154 Osmo 276 mOsmo 04/10/2015 Cbc With Differential Ord2 WBC 5.5 [...] Differential Ord2 RDW 15.8 % 04/10/2015 %Hba1C Tld278 % HbA1c 44000-5 8.3 % 04/10/2015 %Hba1C Ibr111 Gluc Ave 192 mg/dL 04/10/2015 Review of Systems System Result Effective [...] Procedure Codes Date THER/PROPH/DIAG INJ SC/IM CPT-4: 36868 08/17/2017 VITAMIN B12 INJECTION CPT-4: J3420 08/17/2017 THER/PROPH/DIAG INJ SC/IM CPT-4: 46019 07/19/2017 VITAMIN B12 INJECTION CPT-4: J3420 07/19/2017 THER/PROPH/DIAG INJ SC/IM CPT-4: 34830 05/19/2017 VITAMIN B12 INJECTION CPT-4: J3420 05/19/2017 THER/PROPH/DIAG INJ SC/IM CPT-4: 40986 04/06/2017 VITAMIN B12 INJECTION CPT-4: J3420 04/06/2017 THER/PROPH/DIAG INJ SC/IM CPT-4: 80726 01/04/2017 VITAMIN B12 INJECTION CPT-4: J3420 01/04/2017 THER/PROPH/DIAG INJ SC/IM CPT-4: 84816 12/10/2016 VITAMIN B12 INJECTION CPT-4: J3420 12/10/2016 THER/PROPH/DIAG INJ SC/IM CPT-4: 54927 10/13/2016 TRIAMCINOLONE ACET INJ NOS CPT-4: J3301 10/13/2016 THER/PROPH/DIAG INJ SC/IM CPT-4: 12291 09/03/2016 VITAMIN B12 INJECTION CPT-4: J3420 09/03/2016 THER/PROPH/DIAG INJ SC/IM CPT-4: 56675 07/29/2016 VITAMIN B12 INJECTION CPT-4: J3420 07/29/2016 THER/PROPH/DIAG INJ SC/IM CPT-4: 53396 06/03/2016 VITAMIN B12 INJECTION CPT-4: J3420 06/03/2016 PNEUMOCOCCAL VACC [address]: 39860725 CPT-4: 64953 04/22/2016 ADMIN PNEUMOCOCCAL VACCINE SNOMED CT: 04587021 CPT-4: G0009 04/22/2016 VITAMIN B12 INJECTION CPT-4: J3420 09/15/2015 THER/PROPH/DIAG INJ SC/IM CPT-4: 21985 09/15/2015 THER/PROPH/DIAG INJ SC/IM CPT-4: 00035 09/08/2015 VITAMIN B12 INJECTION CPT-4: J3420 09/08/2015 THER/PROPH/DIAG INJ SC/IM CPT-4: 54840 09/01/2015 VITAMIN B12 INJECTION CPT-4: J3420 09/01/2015 THER/PROPH/DIAG INJ SC/IM CPT-4: 30710 08/25/2015 VITAMIN B12 INJECTION CPT-4: J3420 08/25/2015 Vital Signs Date Vital 08/17/2017 Blood Pressure 1: 144/70 Code : 8480-6 BMI: 41.8 Code : 48364-3 Heart Rate 1 : 63 bpm Height: 4'11" SpO2: 97% Weight: 207 lbs 07/19/2017 Blood Pressure 1: 142/74 Code : 8480-6 BMI: 41.4 Code : 61464-4 Heart Rate 1 : 71 bpm Height: 4'11" SpO2: 96% Weight: 205 lbs 05/19/2017 Blood Pressure 1: 148/76 Code : 8480-6 BMI: 42.8 Code : 65704-3 Heart Rate 1 : 72 bpm Height: 4'11" SpO2: 94% Weight: 212 lbs 02/15/2017 Blood Pressure 1: 154/70 Code : 8480-6 BMI: 42.5 Code : 85706-0 Heart Rate 1 : 68 bpm Height: 4'11" SpO2: 97% Weight: 210 lbs 8 oz 11/16/2016 Blood Pressure 1: 142/78 Code : 8480-6 BMI: 41.6 Code : 06138-5 Heart Rate 1 : 68 bpm Height: 4'11" SpO2: 95% Temperature: 36.0 (C) / 96.8 (F) Weight: 206 lbs 08/19/2016 Blood Pressure 1: 120/74 Code : 8480-6 BMI: 41.6 Code : 13825-9 Heart Rate 1 : 75 bpm Height: 4'11" SpO2: 95% Weight: 206 lbs 07/15/2016 Blood Pressure 1: 140/76 Code : 8480-6 BMI: 42.0 Code : 67851-8 Heart Rate 1 : 76 bpm Height: 4'11" SpO2: 96% Weight: 208 lbs 06/03/2016 Blood Pressure 1: 130/78 Code : 8480-6 BMI: 42.8 Code : 42460-2 Heart Rate 1 : 72 bpm Height: 4'11" SpO2: 98% Weight: 212 lbs 04/22/2016 Blood Pressure 1: 142/84 Code : 8480-6 BMI: 41.8 Code : 45690-2 Heart Rate 1 : 86 bpm Height: 4'11" SpO2: 92% Weight: 207 lbs 01/22/2016 Blood Pressure 1: 162/64 Code : 8480-6 BMI: 41.2 Code : 13821-4 Heart Rate 1 : 70 bpm Height: 4'11" SpO2: 97% Weight: 204 lbs 10/23/2015 Blood Pressure 1: 130/70 Code : 8480-6 BMI: 40.4 Code : 91539-1 Heart Rate 1 : 72 bpm Height: 4'11" SpO2: 95% Weight: 200 lbs 09/12/2015 Blood Pressure 1: 142/62 Code : 8480-6 BMI: 39.4 Code : 76662-4 Heart Rate 1 : 63 bpm Height: 4'11" SpO2: 96% Weight: 195 lbs 08/05/2015 Blood Pressure 1: 144/60 Code : 8480-6 BMI: 41.0 Code : 02696-4 Heart Rate 1 : 92 bpm Height: 4'11" SpO2: 90% SpO2: 97% Weight: 203 lbs 04/03/2015 Blood Pressure 1: 142/68 Code : 8480-6 BMI: 40.6 Code : 30452-0 Heart Rate 1 : 77 bpm Height: 4'11" SpO2: 95% Weight: 201 lbs 01/30/2015 Blood Pressure 1: 150/72 Code : 8480-6 BMI: 40.2 Code : 23369-2 Heart Rate 1 : 64 bpm Height: 4'11" Weight: 199 lbs 01/02/2015 Blood Pressure 1: 136/72 Code : 8480-6 BMI: 39.8 Code : 08617-9 Heart Rate 1 : 68 bpm Height: [...] data Encounters Encounter Performer Location Codes Date [id number] EST. PATIENT, LEVEL IV Diagnosis: Essential (primary) hypertension[ICD10: I10] Diagnosis: Type 2 diabetes mellitus with hyperglycemia[ICD10: E11.65] Diagnosis: Vitamin B12 deficiency anemia due to intrinsic factor deficiency[ ICD10: D51.0] Chasity Knox MD, [facility] CPT-4: [id number] EST. PATIENT, LEVEL IV Diagnosis: Type 2 diabetes mellitus with hyperglycemia[ICD10: E11.65] Diagnosis: Essential (primary) hypertension[ICD10: I10] Diagnosis: Vitamin B12 deficiency anemia due to intrinsic factor deficiency[ ICD10: D51.0] Chasity Knox MD, [facility] CPT-4: 30067 [id number]) 18457 EST. PATIENT, LEVEL IV Diagnosis: Essential (primary) hypertension[ICD10: I10] Diagnosis: Type 2 diabetes mellitus with hyperglycemia[ICD10: E11.65] Diagnosis: Hypothyroidism, unspecified[ICD10: E03.9] Diagnosis: Vitamin B12 deficiency anemia due to intrinsic factor deficiency[ ICD10: D51.0] Diagnosis: Chronic kidney disease, stage 3 (moderate)[ICD10: N18.3] Giselle Knox MD , [facility] CPT-4: 22062 05/19/2017 [id number]) 32539 EST. PATIENT, LEVEL IV Diagnosis: Essential (primary) hypertension[ICD10: I10] Diagnosis: Type 2 diabetes mellitus with hyperglycemia[ICD10: E11.65] Diagnosis: Hypothyroidism, unspecified[ICD10: E03.9] Giselle Knox MD, [facility] CPT-4: 64666 02/15/2017 [id number]) 13666 EST. PATIENT, LEVEL IV Diagnosis: Type 2 diabetes mellitus with hyperglycemia[ICD10: E11.65] Diagnosis: Cough[ICD10: R05] Diagnosis: Acute upper respiratory infection, unspecified[ICD10: J06.9] Diagnosis: Hypothyroidism, unspecified[ICD10: E03.9] Diagnosis: Chronic kidney disease, stage 3 (moderate)[ICD10: N18.3] Giselle Knox MD , [facility] CPT-4: 85663 11/16/2016 ([id number]) 95685 EST. PATIENT, LEVEL IV Diagnosis: Type 2 diabetes mellitus with hyperglycemia[ICD10: E11.65] Diagnosis: Hypothyroidism, unspecified[ICD10: E03.9] Diagnosis: Essential (primary) hypertension[ICD10: I10] Giselle Knox MD, [facility] CPT-4: 36496 08/19/2016 ([id number]) 36737 EST. PATIENT, LEVEL III Diagnosis: Type 2 diabetes mellitus with hyperglycemia[ICD10: E11.65] Giselle Knox MD, [facility] CPT-4: 90749 07/15/2016 ([id number]) 16294 EST. PATIENT, LEVEL IV Diagnosis: Type 2 diabetes mellitus with hyperglycemia[ICD10: E11.65] Diagnosis: Atrophy of thyroid (acquired)[ICD10: E03.4] Diagnosis: Vitamin B12 deficiency anemia due to intrinsic factor deficiency[ ICD10: D51.0] Diagnosis: Chronic kidney disease, stage 3 (moderate)[ICD10: N18.3] Diagnosis: Essential (primary) hypertension[ICD10: I10] Jennifer Knox MD, [facility] CPT-4: 94411 06/03/2016 ([id number]) 69366 EST. PATIENT, LEVEL III Diagnosis: Type 2 diabetes mellitus with hyperglycemia[ICD10: E11.65] Diagnosis: Essential (primary) hypertension[ICD10: I10] Diagnosis: Chronic kidney disease, stage 3 (moderate)[ICD10: N18.3] Diagnosis: VACCIN STREP PNEUMONIAE[ICD10: Z23] Giselle Knox MD, [facility] CPT-4: 79299 04/22/2016 92178 EST. PATIENT, LEVEL IV Diagnosis: Type 2 diabetes mellitus with hyperglycemia[ICD10: E11.65] Diagnosis: Essential (primary) hypertension[ICD10: I10] Chasity Knox MD, [facility] CPT-4: 93917 01/22/2016 ([id number]) 12713 EST. PATIENT, LEVEL III Diagnosis: Type 2 diabetes mellitus with hyperglycemia[ICD10: E11.65] Diagnosis: Essential (primary) hypertension[ICD10: I10] Giselle Knox MD, [facility] CPT-4: 03725 10/23/2015 [id number] EST. PATIENT, LEVEL IV Diagnosis: Type 2 diabetes mellitus with hyperglycemia[ICD10: E11.65] Diagnosis: Vitamin B12 deficiency anemia due to intrinsic factor deficiency[ ICD10: D51.0] Diagnosis: Essential (primary) hypertension[ICD10: I10] Chasity Knox MD, [facility] CPT-4: 43555 09/12/2015 ([id number]) 98685 EST. PATIENT, LEVEL IV Diagnosis: Essential (primary) hypertension[ICD10: I10] Diagnosis: Type 2 diabetes mellitus with hyperglycemia[ICD10: E11.65] Diagnosis: Hypothyroidism, unspecified[ICD10: E03.9] Giselle Knox MD, [facility] CPT-4: 76934 08/05/2015 ([id number]) 08441 EST. PATIENT, LEVEL III Diagnosis: ESSENTIAL HYPERTENSION[ICD9: 401.9] Diagnosis: DIABETES TYPE II[ICD9: 250.00] Jennifer Knox MD, [facility] CPT- 4: 80723 04/03/2015 ([id number]) 84163 EST. PATIENT, LEVEL IV Diagnosis: ESSENTIAL HYPERTENSION[ICD9: 401.9] Diagnosis: DIABETES TYPE II[ICD9: 250.00] Diagnosis: Hypothyroidism[ICD9: 244.9] Giselle Knox MD, [facility] CPT-4: 60094 01/30/2015 ([id number]) OFFICE VISIT, NEW - LEVEL 4 Diagnosis: ESSENTIAL HYPERTENSION[ICD9: 401.9] Diagnosis: DIABETES TYPE II[ICD9: 250.00] Diagnosis: Impacted cerumen[ICD9: 380.4] Jennifer Knox MD, [facility] CPT- 4: 57534 01/02/2015 Plan of Care Planned Activity Notes [...] glucose control. 08/17/2017 Appointment[facility] [phone] [phone] (15 min) Moderate 08/17/2017 Patient Education: Patient [...] home. 07/19/2017 Appointment: [facility] Caldwell [facility] [phone] [id number] [place] (15 min) Moderate 07/19/2017 Patient Education: Patient Medication Summary Completed 07/19/2017 [facility]ment[facility] [address] [id number] [place] ([facility] min) Moderate 06/13/2017 Visit Plan: Hypertension [...] to medications. 05/19/2017 Appointment: Giselle Mccoy WPtel[phone] (30 min) [facility] 05/19/2017 Patient Education: Patient Medication Summary Completed [...] control. 02/15/2017 Appointment: [facility] [phone] [phone] (15 min) Moderate 02/15/2017 Patient Education: Patient [...] today 11/16/2016 Appointment: [facility] [phone] [phone] (15 min) Moderate 11/16/2016 Patient Education: Patient [...] of control. 08/19/2016 Appointment: Giselle Mccoy WPtel: [phone] (15 min) Moderate 08/19/2016 Patient Education: Patient Medication Summary Completed 08/19/2016 Patient Education: Obesity Completed 08/19/2016 Care Plan: Tsh Cancelled 08/19/2016 Care Plan: %Hba1C [facility] : [id number] Cancelled 08/19/2016 Care Plan: Lipid Cancelled 08/19/2016 Care Plan: Free T4 patient coming back next week Cancelled 08/19/2016 Appointment: Injection 07/29/2016 Patient Education: Patient Medication Summary Completed 07/29/2016 Appointment: Giselle Mccoy WPtel: [phone] (30 min) Complex 07/22/2016 Visit Plan: Diabetes-having hypoglycemia in the mornings- insulin adjusted-patient and verbalized understanding of plan. Follow up in 1 month-call sooner if still having low blood sugars. Sinus congestion- start claritin 07/15/2016 Appointment: Giselle Mccoy WPtel: [phone] (30 min) Complex 07/15/2016 Patient Education: Patient [...] of control. 06/03/2016 Appointment: Jennifer Knox WPtel: [address] [place] [id number] (15 min) Moderate 06/03/2016 Patient Education: Patient [...] 1 MONTH 04/22/2016 Appointment: Giselle Mccoy WPtel: [address] [place], [place] [phone] (15 min) Moderate 04/22/2016 Patient Education: Patient [...] if needed. 01/02/2015 Appointment: Jennifer Knox WPtel[phone] [place] [facility] New Patient 01/02/2015 [...] to allow for greater blood glucose control. DECREASE NOVOLIN 70/30 18 UNITS IN [...] having low blood sugars. Sinus congestion-start claritin CHECK LABS WITH NEXT APPOINTMENT . Hypertension [...]
--- OUTSIDE RECORDS SUMMARY | 2018-06-17 10:54 | XMS REPORT | CCD ---
Author Author [facility] Organization [facility] Address [address] [place] [address] Phone Care Team Providers Care Olive Brine Tester Name Role Phone PP Unavailable CCM Unavailable Summary Purpose Interface Exchange Insurance Providers Payer name Policy type / Coverage type Covered constitution party ID Effective Begin Date Effective End Date [facility] Commercial Insurance [id number] Unknown Family history Runs in the family [...] Start Date Stop Date Status Fill Instructions Tamiflu 75 mg capsule RxNorm: 754325 1 Capsule(s) PO daily 08/1708/26/2017 Active Tamiflu 75 mg capsule RxNorm: 061178 1 Capsule(s) PO daily 08/1708/16/2017 Inactive cyanocobalamin (vit B-12) 1,000 mcg/mL injection solution RxNorm: 238087 1 Milliliter(s) Inj 08/17/2017 08/17/2017 Inactive carvedilol 12.5 mg tablet RxNorm: 053883 TAKE ONE TABLET BY MOUTH TWICE A DAY 08/10/2017 08/04/2018 Active cyanocobalamin (vit B-12) 1,000 mcg/mL injection solution RxNorm: 996415 1 Milliliter(s) Inj 07/19/2017 07/19/2017 Inactive Humulin 70/30 100 unit/mL subcutaneous suspension RxNorm: 948246 14 Unit(s) SQ QA 07/06/2017 No Stop Date Active Lantus Solostar 100 unit/mL (3 mL) subcutaneous insulin pen RxNorm: 150290 26 Unit(s) SQ QHS 07/06/2017 No Stop Date Active losartan 100 mg tablet RxNorm: 133203 TAKE ONE TABLET BY MOUTH DAILY 06/07/2017 04/02/2018 Active Lantus Solostar 100 unit/mL (3 mL) subcutaneous insulin pen RxNorm: 894903 28 Unit(s) SQ QHS 05/19/2017 07/05/2017 Inactive cyanocobalamin (vit B-12) 1,000 mcg/mL injection solution RxNorm: 962090 1 Milliliter(s) Inj 05/19/2017 05/19/2017 Inactive terazosin 2 mg capsule RxNorm: 521231 TAKE ONE CAPSULE BY MOUTH DAILY 05/16/2017 10/12/2017 Active cyanocobalamin (vit B-12) 1,000 mcg/mL injection solution RxNorm: 135453 1 Milliliter(s) Inj 04/06/2017 04/06/2017 Inactive cyanocobalamin (vit B-12) 1,000 mcg/mL injection solution RxNorm: 728289 Milliliter(s) Inj 01/04/2017 01/04/2017 Inactive Humulin 70/30 100 unit/mL subcutaneous suspension RxNorm: 481011 18 Unit(s) SQ QAM 12/22/2016 06/04/2017 Inactive cyanocobalamin (vit B-12) 1,000 mcg/mL injection solution RxNorm: 575960 1 Milliliter(s) Inj 12/10/2016 12/10/2016 Inactive Zithromax Z-Jose 250 mg tablet RxNorm: 454318 1 Tablet(s) PO UD 11/16/2016 11/20/2016 Inactive terazosin 2 mg capsule RxNorm: 797210 TAKE ONE CAPSULE BY MOUTH DAILY 11/08/2016 05/06/2017 Inactive Lantus Solostar 100 unit/mL (3 mL) subcutaneous insulin pen RxNorm: 953060 INJECT 35 UNITS UNDER THE SKIN EVERY NIGHT AT BEDTIME 201607/18/2017 Inactive cyanocobalamin (vit B-12) 1,000 mcg/mL injection solution RxNorm: 174536 Milliliter(s) Inj 10/13/2016 10/13/2016 Inactive cyanocobalamin (vit B-12) 1,000 mcg/mL injection solution RxNorm: 394613 1 Milliliter(s) Inj 09/03/2016 09/03/2016 Inactive Contour Test Strips RxNorm: TEST BLOOD SUGAR TWO TIMES A DAY E11.65 08/19/2016 04/10/2018 Active carvedilol 12.5 mg tablet RxNorm: 758343 TAKE ONE TABLET BY MOUTH TWICE A DAY 08/05/2016 01/01/2017 Inactive carvedilol 12.5 mg tablet RxNorm: 920446 TAKE ONE TABLET BY MOUTH TWICE A DAY 08/05/2016 01/01/2017 Inactive carvedilol 12.5 mg tablet RxNorm: 692993 1 Tablet(s) PO BID 05/201701/30/2017 Inactive cyanocobalamin (vit B-12) 1,000 mcg/mL injection solution RxNorm: 527985 Milliliter(s) Inj 07/29/2016 07/29/2016 Inactive Lantus Solostar 100 unit/mL (3 mL) subcutaneous insulin pen RxNorm: 144342 30 Unit(s) SQ QHS 07/15/2016 05/18/2017 Inactive Humulin 70/30 100 unit/mL subcutaneous suspension RxNorm: 185579 18 Unit(s) SQ QA 07/15/2016 12/21/2016 Inactive losartan 100 mg tablet RxNorm: 980732 TAKE ONE TABLET BY MOUTH DAILY 07/08/2016 06/02/2017 Inactive terazosin 2 mg capsule RxNorm: 052536 TAKE ONE CAPSULE BY MOUTH DAILY 06/10/2016 11/06/2016 Inactive cyanocobalamin (vit B-12) 1,000 mcg/mL injection solution RxNorm: 500588 1 Milliliter(s) Inj 06/03/2016 06/03/2016 Inactive Humulin 70/30 100 unit/mL subcutaneous suspension RxNorm: 783742 Unit(s) INJECT 10 UNITS UNDER THE SKIN 06/01/20162015 Inactive Request already responded to by other means (e.g. phone or fax) Humulin 70/30 100 unit/mL subcutaneous suspension RxNorm: 953022 INJECT 10 UNITS UNDER THE SKIN BEFORE MEALS 06/01/201601/2016 Inactive Request already responded to by other means (e.g. phone or fax) Lantus Solostar 100 unit/mL (3 mL) subcutaneous insulin pen RxNorm: 209132 35 Unit(s) SQ [facility] 05/26/2016 07/14/2016 Inactive Humulin 70/30 100 unit/mL subcutaneous suspension RxNorm: 425159 10 Unit(s) SQ QA 05/24/2016 10/02/2016 Inactive Humulin 70/30 100 unit/mL subcutaneous suspension RxNorm: 931355 21 Unit(s) SQ [facility] 05/24/2016 05/23/2016 Inactive Lantus Solostar 100 unit/mL (3 mL) subcutaneous insulin pen RxNorm: 138476 32 Unit(s) SQ [facility] 04/22/2016 05/25/2016 Inactive Humulin 70/30 100 unit/mL subcutaneous suspension RxNorm: 300274 21 Unit(s) SQ QA 04/22/2016 05/24/2016 Inactive with breakfast hydrochlorothiazide 25 mg tablet RxNorm: 639720 TAKE ONE TABLET BY MOUTH DAILY 02/04/2016 02/16/2016 Inactive terazosin 2 mg capsule RxNorm: 333974 Capsule(s) TAKE ONE CAPSULE BY MOUTH DAILY. 12/01/2015 05/28/2016 Inactive Humulin 70/30 100 unit/mL subcutaneous suspension RxNorm: 999998 INJECT 10 UNITS UNDER THE SKIN BEFORE MEALS 11/06/2015 Inactive hydrochlorothiazide 25 mg tablet RxNorm: 087453 1 Tablet(s) PO daily 10/06/2015 02/02/2016 Inactive cyanocobalamin (vit B-12) 1,000 mcg/mL injection solution RxNorm: 729742 Milliliter(s) Inj 09/15/2015 09/15/2015 Inactive Humulin 70/30 100 unit/mL subcutaneous suspension RxNorm: 493322 INJECT 10 UNITS UNDER THE SKIN BEFORE MEALS 09/08/2015 Inactive cyanocobalamin (vit B-12) 1,000 mcg/mL injection solution RxNorm: 136567 Milliliter(s) Inj 09/08/2015 09/08/2015 Inactive terazosin 2 mg capsule RxNorm: 387253 TAKE ONE CAPSULE BY MOUTH DAILY. DISCONTINUE 5 MG CAPSULES 09/01/201511/28 Inactive cyanocobalamin (vit B-12) 1,000 mcg/mL injection solution RxNorm: 481927 Milliliter(s) Inj 09/01/2015 09/01/2015 Inactive cyanocobalamin (vit B-12) 1,000 mcg/mL injection solution RxNorm: 388856 Milliliter(s) Inj 08/25/2015 08/25/2015 Inactive levothyroxine 112 mcg tablet RxNorm: 488248 1 Tablet(s) PO daily 08/06/2015 02/14/2017 Inactive Lantus Solostar 100 unit/mL (3 mL) subcutaneous insulin pen RxNorm: 958631 35 Unit(s) SQ QHS 08/06/2015 04/21/2016 Inactive Humulin 70/30 100 unit/mL subcutaneous suspension RxNorm: 830129 20 Unit(s) SQ AC 08/05/2015 04/21/2016 Inactive with breakfast carvedilol 12.5 mg tablet RxNorm: 090378 1 Tablet(s) PO BID 06/201601/31/2016 Inactive Humulin 70/30 100 unit/mL subcutaneous suspension RxNorm: 065377 10 Unit(s) SQ AC 07/22/2015 08/04/2015 Inactive losartan 100 mg tablet RxNorm: 689976 TAKE ONE TABLET BY MOUTH DAILY 06/25/2015 06/18/2016 Inactive Lantus Solostar 100 unit/mL (3 mL) subcutaneous insulin pen RxNorm: 727378 30 Unit(s) SQ QHS 06/18/2015 08/05/2015 Inactive terazosin 2 mg capsule RxNorm: 801602 1 Capsule(s) PO daily 08/11/2015 Inactive DC the 5mg order terazosin 2 mg capsule RxNorm: 893037 1 Capsule(s) PO daily 04/13/2015 Inactive Synthroid 25 mcg tablet RxNorm: 191769 1 Tablet(s) PO daily 02/14/2017 Inactive Synthroid 25 mcg tablet RxNorm: 927837 1 Tablet(s) PO daily 04/10/2015 Inactive Lantus Solostar 100 unit/mL (3 mL) subcutaneous insulin pen RxNorm: 692035 30 Unit(s) SQ QHS 04/04/2015 06/17/2015 Inactive terazosin 5 mg tablet RxNorm: 022081 1 Tablet(s) PO daily 201404/13/2015 Inactive Lantus Solostar 100 unit/mL (3 mL) subcutaneous insulin pen RxNorm: 324845 25 Unit(s) SQ QHS 01/08/2015 04/03/2015 Inactive carvedilol 25 mg tablet RxNorm: 955629 1 Tablet(s) PO BID 01/0201/31/2015 Inactive terazosin 5 mg tablet RxNorm: 941599 1 Tablet(s) PO daily 201401/01/2015 Inactive levothyroxine 125 mcg tablet RxNorm: 537446 1 Tablet(s) PO daily 01/02/2015 01/31/2015 Inactive terazosin 5 mg tablet RxNorm: 708899 1/2 Tablet(s) PO daily 05/201501/31/2015 Inactive losartan 100 mg tablet RxNorm: 502873 1 Tablet(s) PO daily 08/201404/22/2015 Inactive losartan 100 mg tablet RxNorm: 371267 1 Tablet(s) PO daily 08/201412/23/2014 Inactive Contour Test Strips RxNorm: Miscellaneous test blood sugars BID 12/06/2014 12/05/2014 Inactive dx 250.00 Contour Test Strips RxNorm: Miscellaneous test blood sugars BID or UD 12/06/2014 06/23/2015 Inactive dx 250.00 [SAVINGS FOR NON-COVERED DRUGS -- BIN:[id number], PCN: [id number], Group: [id number], ID# [id number], Questions: . THIS IS NOT INSURANCE.] folic acid 1 mg tablet RxNorm: 356543 1 Tablet(s) PO QHS No Start Date Active Microlet Lancet RxNorm : Miscellaneous Test BID or Ud No Start Date Active 250.0 aspirin 81 mg tablet,delayed release RxNorm: 310579 1 Tablet(s) PO daily No Start Date Active Stool Softener 100 mg capsule RxNorm: 1128924 1 Capsule(s) PO every other day No Start Date Active levothyroxine 100 mcg tablet RxNorm: 927696 1 Tablet(s) PO daily No Start Date Active folic acid oral RxNorm : 4511 oral No Start Date 05/19/2017 Inactive cyanocobalamin (vit B-12) 100 mcg tablet RxNorm: 342082 1 Tablet(s) PO daily No Start Date 02/14/2017 Inactive hydrochlorothiazide 25 mg tablet RxNorm: 470560 1 Tablet(s) PO daily No Start Date 10/05/2015 Inactive Stool Softener 100 mg capsule RxNorm: 9840189 1 Capsule(s) PO daily No Start Date 05/18/2017 Inactive Humulin 70/30 100 unit/mL subcutaneous suspension RxNorm: 918889 20 Unit(s) SQ QAM No Start Date 07/21/2015 Inactive Lantus Solostar 100 unit/mL (3 mL) subcutaneous insulin pen RxNorm: 779012 20 Unit(s) SQ QHS No Start Date 01/07/2015 Inactive ferrous sulfate 325 mg (65 mg iron) tablet RxNorm: 163249 1 Tablet(s) PO daily No Start Date 05/18/2017 Inactive Medication Administered Medication Codes Instructions Start Date Status cyanocobalamin (vit B-12) 1,000 mcg/mL injection solution RxNorm: 618038 1Milliliter 08/17/2017 No longer Active cyanocobalamin (vit B-12) 1,000 mcg/mL injection solution RxNorm: 235273 1Milliliter 07/19/2017 No longer Active cyanocobalamin (vit B-12) 1,000 mcg/mL injection solution RxNorm: 980327 1Milliliter 05/19/2017 No longer Active cyanocobalamin (vit B-12) 1,000 mcg/mL injection solution RxNorm: 809624 1Milliliter 04/06/2017 No longer Active cyanocobalamin (vit B-12) 1,000 mcg/mL injection solution RxNorm: 111047 Milliliter 01/04/2017 No longer Active cyanocobalamin (vit B-12) 1,000 mcg/mL injection solution RxNorm: 918279 1Milliliter 12/10/2016 No longer Active cyanocobalamin (vit B-12) 1,000 mcg/mL injection solution RxNorm: 689724 Milliliter 10/13/2016 No longer Active cyanocobalamin (vit B-12) 1,000 mcg/mL injection solution RxNorm: 686841 1Milliliter 09/03/2016 No longer Active cyanocobalamin (vit B-12) 1,000 mcg/mL injection solution RxNorm: 975559 Milliliter 07/29/2016 No longer Active cyanocobalamin (vit B-12) 1,000 mcg/mL injection solution RxNorm: 206709 1Milliliter 06/03/2016 No longer Active cyanocobalamin (vit B-12) 1,000 mcg/mL injection solution RxNorm: 798814 Milliliter 09/15/2015 No longer Active cyanocobalamin (vit B-12) 1,000 mcg/mL injection solution RxNorm: 537475 Milliliter 09/08/2015 No longer Active cyanocobalamin (vit B-12) 1,000 mcg/mL injection solution RxNorm: 762308 Milliliter 09/01/2015 No longer Active cyanocobalamin (vit B-12) 1,000 mcg/mL injection solution RxNorm: 398810 Milliliter 08/25/2015 No longer Active Immunizations Vaccine [...] 20.4 % 05/19/2017 Cbc With Differential Ord2 [place]% 6.8 % 05/19/2017 Cbc With Differential Ord2 [...] 1.64 K/ul 05/19/2017 Cbc With Differential Ord2 [place] ABS# 0.6 K/ul 05/19/2017 Cbc With Differential Ord2 Eos ABS# 0.2 K/ul 05/19/2017 Cbc With Differential Ord2 Baso ABS# 0.0 K/ul 05/19/2017 B12 Out814 B12 >1500.00 pg/ml 05/19/2017 Free T4 Zss302 FREE T4 1.10 ng/dL 05/19/2017 %Hba1C Ysm942 % HbA1c 20691-2 6.8 % 05/19/2017 %Hba1C Inr254 Gluc Ave 148 mg/dL 05/19/2017 Tsh Ord6 hTSH II 1.73 uIU/mL 05/19/2017 Comp Metabolic Nyr304 NA 140 mEq/L 05/19/2017 Comp Metabolic Ije182 K 3.8 mEq/L 05/19/2017 Comp Metabolic Yhr596 CL 108 mEq/L 05/19/2017 Comp Metabolic Lve778 CO2 21.0 mEq/L 05/19/2017 Comp Metabolic Kqz124 ANION GAP 15 05/19/2017 Comp Metabolic Kmp677 GLUCOSE 207 mg/dL 05/19/2017 Comp Metabolic Tlv179 Creat 1.0 mg/dL 05/19/2017 Comp Metabolic Cee864 eGFR 55 ml/min/1.73m2 05/19/2017 Comp Metabolic Pjh862 BUN 21 mg/dL 05/19/2017 Comp Metabolic Rih343 B/C Ratio 20.4 Ratio 05/19/2017 Comp Metabolic Lmq166 CALCIUM 9.1 mg/dL 05/19/2017 Comp Metabolic Tgz199 ALK PHOS 74 U/L 05/19/2017 Comp Metabolic Uhj411 AST(SGOT) 32 U/L 05/19/2017 Comp Metabolic Qld060 ALT(SGPT) 15 U/L 05/19/2017 Comp Metabolic Uyt274 BILI T 0.6 mg/dL 05/19/2017 Comp Metabolic Yem475 ALBUMIN 3.9 g/dL 05/19/2017 Comp Metabolic Hph765 TPRO 6.2 g/dL 05/19/2017 Comp Metabolic Ees380 GLOB 2.3 g/dL 05/19/2017 Comp Metabolic Jux458 A/G Ratio 1.6 Ratio 05/19/2017 Comp Metabolic Hli830 Osmo 288 mOsmo 05/19/2017 Cbc With Differential [...] 29.3 pg 12/10/2016 Cbc With Differential Ord2 [place]% 7.1 % 12/10/2016 Cbc With Differential Ord2 [...] 2.50 K/ul 12/10/2016 Cbc With Differential Ord2 [place] ABS# 0.5 K/ul 12/10/2016 Cbc With Differential Ord2 Eos ABS# 0.1 K/ul 12/10/2016 Cbc With Differential Ord2 Baso ABS# 0.0 K/ul 12/10/2016 B12 Xrp148 B12 222.00 pg/ml 12/10/2016 %Hba1C Xlz748 % HbA1c 01827-9 7.5 % 11/16/2016 %Hba1C Edq666 Gluc Ave 169 mg/dL 11/16/2016 Free T4 Fvx004 FREE T4 1.03 ng/dL 11/16/2016 Comp Metabolic Fjn866 NA 138 mEq/L 11/16/2016 Comp Metabolic Zzc055 K 3.8 mEq/L 11/16/2016 Comp Metabolic Ruz235 CL 103 mEq/L 11/16/2016 Comp Metabolic Iso222 CO2 26.0 mEq/L 11/16/2016 Comp Metabolic Wyn409 ANION GAP 13 11/16/2016 Comp Metabolic Uar610 GLUCOSE 235 mg/dL 11/16/2016 Comp Metabolic Fyo820 Creat 0.9 mg/dL 11/16/2016 Comp Metabolic Cgb046 eGFR 62 ml/min/1.73m2 11/16/2016 Comp Metabolic Pvw991 BUN 20 mg/dL 11/16/2016 Comp Metabolic Ndb107 B/C Ratio 21.7 Ratio 11/16/2016 Comp Metabolic Uro851 CALCIUM 8.9 mg/dL 11/16/2016 Comp Metabolic Keq168 ALK PHOS 75 U/L 11/16/2016 Comp Metabolic Zpw297 AST(SGOT) 30 U/L 11/16/2016 Comp Metabolic Vef697 ALT(SGPT) 13 U/L 11/16/2016 Comp Metabolic Rzx263 BILI T 0.6 mg/dL 11/16/2016 Comp Metabolic Zou520 ALBUMIN 3.8 g/dL 11/16/2016 Comp Metabolic Aux008 TPRO 6.8 g/dL 11/16/2016 Comp Metabolic Vsh709 GLOB 3.1 g/dL 11/16/2016 Comp Metabolic Ujz153 A/G Ratio 1.2 Ratio 11/16/2016 Comp Metabolic Txb982 Osmo 286 mOsmo 11/16/2016 Tsh Ord6 hTSH II 2.50 uIU/mL 11/16/2016 Tsh Ord6 hTSH II 3.18 uIU/mL 05/21/2016 Lipid Ord30 CHOL 212 mg/dL 05/21/2016 Lipid Ord30 HDL 43.0 mg/dl 05/21/2016 Lipid Ord30 TRIG 164 mg/dL 05/21/2016 Lipid Ord30 LDL 136 mg/dL 05/21/2016 Lipid Ord30 C/HDL 4.9 Ratio 05/21/2016 B12 Sko543 B12 159.00 pg/ml 05/21/2016 %Hba1C Dsw982 % HbA1c 60165-5 7.5 % 05/21/2016 %Hba1C Epi496 Gluc Ave 169 mg/dL 05/21/2016 Folate Ord36 Folate >23.80 ng/mL 05/21/2016 Free T4 Lwb797 FREE T4 1.03 ng/dL 05/21/2016 CHEM 14 4860318 AST 33 U/L 03/15/2016 CHEM 14 3288891 ALT 13 U/L 03/15/2016 CHEM 14 6118228 BUN 18 mg/dL 03/15/2016 CHEM 14 1285410 ALBUMIN 3.9 g/dL 03/15/2016 CHEM 14 5207964 CHLORIDE 105 mmol/L 03/15/2016 CHEM 14 5403798 Bili Total 0.4 mg/dL 03/15/2016 CHEM 14 0603312 ALK PHOS 60 U/L 03/15/2016 CHEM 14 1867183 SODIUM 138 mmol/L 03/15/2016 CHEM 14 3794994 CREATININE 0.99 mg/dL 03/15/2016 CHEM 14 8716435 CALCIUM 9.4 mg/dL 03/15/2016 CHEM 14 0192618 POTASSIUM 3.8 mmol/L 03/15/2016 CHEM 14 4317229 TOTAL PROTEIN 6.7 g/dL 03/15/2016 CHEM 14 8629616 GLUCOSE 109 mg/dL 03/15/2016 CHEM 14 7349625 Bicarbonate 27 mmol/L 03/15/2016 CHEM 14 6233154 AGAP 6 mmol/L 03/15/2016 GFR CALC 4007317 GFR Non Afr Amr 54 mL/min 03/15/2016 GFR CALC 3617053 GFR Afr Amr >60 mL/min 03/15/2016 B12 Uie535 B12 46.00 pg/ml 08/07/2015 Iron Ord72 Iron [...] Ord2 RDW 16.6 % 08/05/2015 Free T4 Ura669 FREE T4 1.33 ng/dL 08/05/2015 Comp Metabolic Ijb903 NA 137 mEq/L 08/05/2015 Comp Metabolic Ozb852 K 4.5 mEq/L 08/05/2015 Comp Metabolic Tcz861 CL 104 mEq/L 08/05/2015 Comp Metabolic Cyb176 CO2 26.0 mEq/L 08/05/2015 Comp Metabolic Jjr881 ANION GAP 12 08/05/2015 Comp Metabolic Yma188 GLUCOSE 146 mg/dL 08/05/2015 Comp Metabolic Upy546 Creat 1.0 mg/dL 08/05/2015 Comp Metabolic Eyh819 eGFR 56 ml/min/1.73m2 08/05/2015 Comp Metabolic Qlr517 BUN 23 mg/dL 08/05/2015 Comp Metabolic Aoc750 B/C Ratio 22.8 Ratio 08/05/2015 Comp Metabolic Ldt288 CALCIUM 9.3 mg/dL 08/05/2015 Comp Metabolic Fhj680 ALK PHOS 71 U/L 08/05/2015 Comp Metabolic Uzr086 AST(SGOT) 33 U/L 08/05/2015 Comp Metabolic Eum739 ALT(SGPT) 15 U/L 08/05/2015 Comp Metabolic Nyn223 BILI T 0.6 mg/dL 08/05/2015 Comp Metabolic Jxv076 ALBUMIN 3.9 g/dL 08/05/2015 Comp Metabolic Jmf553 TPRO 6.5 g/dL 08/05/2015 Comp Metabolic Xuj342 GLOB 2.6 g/dL 08/05/2015 Comp Metabolic Ock134 A/G Ratio 1.5 Ratio 08/05/2015 Comp Metabolic Mhh851 Osmo 280 mOsmo 08/05/2015 Tsh Ord6 hTSH II 0.36 uIU/mL 08/05/2015 %Hba1C Oea323 % HbA1c 99643-0 8.1 % 08/05/2015 %Hba1C Ece340 Gluc Ave 186 mg/dL 08/05/2015 Free T4 Ekp851 FREE T4 0.91 ng/dL 04/11/2015 %Hba1C Ylb796 % HbA1c 43021-8 8.3 % 04/10/2015 %Hba1C Eeq124 Gluc Ave 192 mg/dL 04/10/2015 Cbc With [...] Ord2 RDW 15.8 % 04/10/2015 Comp Metabolic Fpa748 NA 134 mEq/L 04/10/2015 Comp Metabolic Zef272 K 4.1 mEq/L 04/10/2015 Comp Metabolic Ptq141 CL 105 mEq/L 04/10/2015 Comp Metabolic Nwz634 CO2 26.0 mEq/L 04/10/2015 Comp Metabolic Spu069 ANION GAP 7 04/10/2015 Comp Metabolic Puv388 GLUCOSE 126 mg/dL 04/10/2015 Comp Metabolic Qoa373 Creat 1.0 mg/dL 04/10/2015 Comp Metabolic Nut696 eGFR 58 ml/min/1.73m2 04/10/2015 Comp Metabolic Vyj204 BUN 29 mg/dL 04/10/2015 Comp Metabolic Sxn693 B/C Ratio 29.6 Ratio 04/10/2015 Comp Metabolic Gic160 CALCIUM 9.3 mg/dL 04/10/2015 Comp Metabolic Qtn353 ALK PHOS 63 U/L 04/10/2015 Comp Metabolic Taf397 AST(SGOT) 31 U/L 04/10/2015 Comp Metabolic Qzp471 ALT(SGPT) 14 U/L 04/10/2015 Comp Metabolic Jqs836 BILI T 0.6 mg/dL 04/10/2015 Comp Metabolic Vxk735 ALBUMIN 3.9 g/dL 04/10/2015 Comp Metabolic Hot406 TPRO 6.3 g/dL 04/10/2015 Comp Metabolic Xji160 GLOB 2.4 g/dL 04/10/2015 Comp Metabolic Xca217 A/G Ratio 1.6 Ratio 04/10/2015 Comp Metabolic Rse853 Osmo 276 mOsmo 04/10/2015 Tsh Ord6 hTSH [...] Procedure Codes Date THER/PROPH/DIAG INJ SC/IM CPT-4: 26108 08/17/2017 VITAMIN B12 INJECTION CPT-4: J3420 08/17/2017 THER/PROPH/DIAG INJ SC/IM CPT-4: 92125 07/19/2017 VITAMIN B12 INJECTION CPT-4: J3420 07/19/2017 THER/PROPH/DIAG INJ SC/IM CPT-4: 17099 05/19/2017 VITAMIN B12 INJECTION CPT-4: J3420 05/19/2017 THER/PROPH/DIAG INJ SC/IM CPT-4: 84044 04/06/2017 VITAMIN B12 INJECTION CPT-4: J3420 04/06/2017 THER/PROPH/DIAG INJ SC/IM CPT-4: 27570 01/04/2017 VITAMIN B12 INJECTION CPT-4: J3420 01/04/2017 THER/PROPH/DIAG INJ SC/IM CPT-4: 46530 12/10/2016 VITAMIN B12 INJECTION CPT-4: J3420 12/10/2016 THER/PROPH/DIAG INJ SC/IM CPT-4: 96662 10/13/2016 TRIAMCINOLONE ACET INJ NOS CPT-4: J3301 10/13/2016 THER/PROPH/DIAG INJ SC/IM CPT-4: 20847 09/03/2016 VITAMIN B12 INJECTION CPT-4: J3420 09/03/2016 THER/PROPH/DIAG INJ SC/IM CPT-4: 55513 07/29/2016 VITAMIN B12 INJECTION CPT-4: J3420 07/29/2016 THER/PROPH/DIAG INJ SC/IM CPT-4: 78916 06/03/2016 VITAMIN B12 INJECTION CPT-4: J3420 06/03/2016 PNEUMOCOCCAL VACC [address]: 84711718 CPT-4: 97154 04/22/2016 ADMIN PNEUMOCOCCAL VACCINE SNOMED CT: 41987280 CPT-4: G0009 04/22/2016 VITAMIN B12 INJECTION CPT-4: J3420 09/15/2015 THER/PROPH/DIAG INJ SC/IM CPT-4: 70261 09/15/2015 THER/PROPH/DIAG INJ SC/IM CPT-4: 07372 09/08/2015 VITAMIN B12 INJECTION CPT-4: J3420 09/08/2015 THER/PROPH/DIAG INJ SC/IM CPT-4: 35586 09/01/2015 VITAMIN B12 INJECTION CPT-4: J3420 09/01/2015 THER/PROPH/DIAG INJ SC/IM CPT-4: 17007 08/25/2015 VITAMIN B12 INJECTION CPT-4: J3420 08/25/2015 Vital Signs Date Vital 08/17/2017 Blood Pressure 1: 144/70 Code : 8480-6 BMI: 41.8 Code : 97814-1 Heart Rate 1 : 63 bpm Height: 4'11" SpO2: 97% Weight: 207 lbs 07/19/2017 Blood Pressure 1: 142/74 Code : 8480-6 BMI: 41.4 Code : 90355-4 Heart Rate 1 : 71 bpm Height: 4'11" SpO2: 96% Weight: 205 lbs 05/19/2017 Blood Pressure 1: 148/76 Code : 8480-6 BMI: 42.8 Code : 56442-4 Heart Rate 1 : 72 bpm Height: 4'11" SpO2: 94% Weight: 212 lbs 02/15/2017 Blood Pressure 1: 154/70 Code : 8480-6 BMI: 42.5 Code : 93470-9 Heart Rate 1 : 68 bpm Height: 4'11" SpO2: 97% Weight: 210 lbs 8 oz 11/16/2016 Blood Pressure 1: 142/78 Code : 8480-6 BMI: 41.6 Code : 92427-5 Heart Rate 1 : 68 bpm Height: 4'11" SpO2: 95% Temperature: 36.0 (C) / 96.8 (F) Weight: 206 lbs 08/19/2016 Blood Pressure 1: 120/74 Code : 8480-6 BMI: 41.6 Code : 72157-9 Heart Rate 1 : 75 bpm Height: 4'11" SpO2: 95% Weight: 206 lbs 07/15/2016 Blood Pressure 1: 140/76 Code : 8480-6 BMI: 42.0 Code : 28824-0 Heart Rate 1 : 76 bpm Height: 4'11" SpO2: 96% Weight: 208 lbs 06/03/2016 Blood Pressure 1: 130/78 Code : 8480-6 BMI: 42.8 Code : 76361-3 Heart Rate 1 : 72 bpm Height: 4'11" SpO2: 98% Weight: 212 lbs 04/22/2016 Blood Pressure 1: 142/84 Code : 8480-6 BMI: 41.8 Code : 47227-1 Heart Rate 1 : 86 bpm Height: 4'11" SpO2: 92% Weight: 207 lbs 01/22/2016 Blood Pressure 1: 162/64 Code : 8480-6 BMI: 41.2 Code : 22245-5 Heart Rate 1 : 70 bpm Height: 4'11" SpO2: 97% Weight: 204 lbs 10/23/2015 Blood Pressure 1: 130/70 Code : 8480-6 BMI: 40.4 Code : 51323-0 Heart Rate 1 : 72 bpm Height: 4'11" SpO2: 95% Weight: 200 lbs 09/12/2015 Blood Pressure 1: 142/62 Code : 8480-6 BMI: 39.4 Code : 34858-1 Heart Rate 1 : 63 bpm Height: 4'11" SpO2: 96% Weight: 195 lbs 08/05/2015 Blood Pressure 1: 144/60 Code : 8480-6 BMI: 41.0 Code : 67920-9 Heart Rate 1 : 92 bpm Height: 4'11" SpO2: 90% SpO2: 97% Weight: 203 lbs 04/03/2015 Blood Pressure 1: 142/68 Code : 8480-6 BMI: 40.6 Code : 74394-9 Heart Rate 1 : 77 bpm Height: 4'11" SpO2: 95% Weight: 201 lbs 01/30/2015 Blood Pressure 1: 150/72 Code : 8480-6 BMI: 40.2 Code : 63389-5 Heart Rate 1 : 64 bpm Height: 4'11" Weight: 199 lbs 01/02/2015 Blood Pressure 1: 136/72 Code : 8480-6 BMI: 39.8 Code : 47199-2 Heart Rate 1 : 68 bpm Height: [...] data Encounters Encounter Performer Location Codes Date [id number] EST. PATIENT, LEVEL IV Diagnosis: Essential (primary) hypertension[ICD10: I10] Diagnosis: Type 2 diabetes mellitus with hyperglycemia[ICD10: E11.65] Diagnosis: Vitamin B12 deficiency anemia due to intrinsic factor deficiency[ ICD10: D51.0] Chasity Knox MD, [facility] CPT-4: 37596 [id number] EST. PATIENT, LEVEL IV Diagnosis: Type 2 diabetes mellitus with hyperglycemia[ICD10: E11.65] Diagnosis: Essential (primary) hypertension[ICD10: I10] Diagnosis: Vitamin B12 deficiency anemia due to intrinsic factor deficiency[ ICD10: D51.0] Chasity Knox MD, [facility] CPT-4: 53573 [id number]) [id number] EST. PATIENT, LEVEL IV Diagnosis: Essential (primary) hypertension[ICD10: I10] Diagnosis: Type 2 diabetes mellitus with hyperglycemia[ICD10: E11.65] Diagnosis: Hypothyroidism, unspecified[ICD10: E03.9] Diagnosis: Vitamin B12 deficiency anemia due to intrinsic factor deficiency[ ICD10: D51.0] Diagnosis: Chronic kidney disease, stage 3 (moderate)[ICD10: N18.3] Giselle Knox MD , [facility] CPT-4: 06869 05/19/2017 [id number]) 23655 EST. PATIENT, LEVEL IV Diagnosis: Essential (primary) hypertension[ICD10: I10] Diagnosis: Type 2 diabetes mellitus with hyperglycemia[ICD10: E11.65] Diagnosis: Hypothyroidism, unspecified[ICD10: E03.9] Giselle Knox MD, [facility] CPT-4: 49922 02/15/2017 [id number]) 66266 EST. PATIENT, LEVEL IV Diagnosis: Type 2 diabetes mellitus with hyperglycemia[ICD10: E11.65] Diagnosis: Cough[ICD10: R05] Diagnosis: Acute upper respiratory infection, unspecified[ICD10: J06.9] Diagnosis: Hypothyroidism, unspecified[ICD10: E03.9] Diagnosis: Chronic kidney disease, stage 3 (moderate)[ICD10: N18.3] Giselle Knox MD , [facility] CPT-4: 94937 11/16/2016 [id number]) 49526 EST. PATIENT, LEVEL IV Diagnosis: Type 2 diabetes mellitus with hyperglycemia[ICD10: E11.65] Diagnosis: Hypothyroidism, unspecified[ICD10: E03.9] Diagnosis: Essential (primary) hypertension[ICD10: I10] Giselle Knox MD, [facility] CPT-4: 21656 08/19/2016 ([id number]) 62807 EST. PATIENT, LEVEL III Diagnosis: Type 2 diabetes mellitus with hyperglycemia[ICD10: E11.65] Giselle Knox MD, [facility] CPT-4: 63106 07/15/2016 ([id number]) [id number] EST. 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 PATIENT, LEVEL III Diagnosis: Type 2 diabetes mellitus with hyperglycemia[ICD10: E11.65] Diagnosis: Essential (primary) hypertension[ICD10: I10] Diagnosis: Chronic kidney disease, stage 3 (moderate)[ICD10: N18.3] Diagnosis: VACCIN STREP PNEUMONIAE[ICD10: Z23] Giselle Knox MD, [facility] CPT-4: 61464 04/22/2016 [id number] EST. PATIENT, LEVEL IV Diagnosis: Type 2 diabetes mellitus with hyperglycemia[ICD10: E11.65] Diagnosis: Essential (primary) hypertension[ICD10: I10] Chasity Knox MD, [facility] CPT-4: 38250 01/22/2016 ([id number]) 30680 EST. PATIENT, LEVEL III Diagnosis: Type 2 diabetes mellitus with hyperglycemia[ICD10: E11.65] Diagnosis: Essential (primary) hypertension[ICD10: I10] Giselle Knox MD, [facility] CPT-4: 70793 10/23/2015 [id number] EST. PATIENT, LEVEL IV Diagnosis: Type 2 diabetes mellitus with hyperglycemia[ICD10: E11.65] Diagnosis: Vitamin B12 deficiency anemia due to intrinsic factor deficiency[ ICD10: D51.0] Diagnosis: Essential (primary) hypertension[ICD10: I10] Chasity Knox MD, [facility] CPT-4: 12229 09/12/2015 [id number]) 78976 EST. PATIENT, LEVEL IV Diagnosis: Essential (primary) hypertension[ICD10: I10] Diagnosis: Type 2 diabetes mellitus with hyperglycemia[ICD10: E11.65] Diagnosis: Hypothyroidism, unspecified[ICD10: E03.9] Giselle Knox MD, [facility] CPT-4: 15996 08/05/2015 ([id number]) 92215 EST. PATIENT, LEVEL III Diagnosis: ESSENTIAL HYPERTENSION[ICD9: 401.9] Diagnosis: DIABETES TYPE II[ICD9: 250.00] Jennifer Knox MD, [facility] CPT- 4: 56799 04/03/2015 ([id number]) 87578 EST. PATIENT, LEVEL IV Diagnosis: ESSENTIAL HYPERTENSION[ICD9: 401.9] Diagnosis: DIABETES TYPE II[ICD9: 250.00] Diagnosis: Hypothyroidism[ICD9: 244.9] Giselle Knox MD, [facility] CPT-4: 65241 01/30/2015 ([id number]) OFFICE VISIT, NEW - LEVEL 4 Diagnosis: ESSENTIAL HYPERTENSION[ICD9: 401.9] Diagnosis: DIABETES TYPE II[ICD9: 250.00] Diagnosis: Impacted cerumen[ICD9: 380.4] Jennifer Knox MD, [facility] CPT- 4: 36538 01/02/2015 Plan of Care Planned Activity Notes Codes Status Date Appointment: [facility] [phone] [phone] [place] ([place] min) Moderate 08/17/2017 Patient Education: Patient Medication Summary Completed 08/17/2017 App[facility]ment: [facility] [phone] [phone] [place] ([place] min) Moderate 07/19/2017 Patient Education: Patient Medication Summary Completed 07/19/2017 [facility]ment[facility] [phone] [phone] [place] ([place] min) Moderate 06/13/2017 App[facility]ment: [facility] [phone] [phone] [place] (30 min) Complex 05/19/2017 Patient Education: Patient Medication Summary Completed 05/19/2017 Patient Education: Obesity Completed 05/19/2017 Appointment: Injection 04/06/2017 Patient Education: Patient Medication Summary Completed 04/06/2017 Appointment: Giselle Mccoy WPtel: [phone] [place] (15 min) Moderate 02/15/2017 Patient Education: Patient Medication Summary Completed 02/15/2017 Patient Education: Obesity Completed 02/15/2017 Appointment: Injection 01/04/2017 Patient Education: Patient Medication Summary Completed 01/04/2017 Appointment: Injection 12/10/2016 Patient Education: Patient Medication Summary Completed 12/10/2016 Appointment: Giselle Mccoy WPtel: [address] [place], [place] [phone] [place] (15 min) Moderate 11/16/2016 Patient Education: Patient Medication Summary Completed 11/16/2016 Patient Education: Obesity Completed 11/16/2016 Appointment: Injection 10/13/2016 Patient Education: Patient Medication Summary Completed 10/13/2016 Appointment: Injection 09/03/2016 Patient Education: Patient Medication Summary Completed 09/03/2016 Appointment: Giselle Mccoy WPtel: [address] [place], [place] [phone] [place] (15 min) Moderate 08/19/2016 Patient Education: Patient Medication Summary Completed 08/19/2016 Patient Education: Obesity Completed 08/19/2016 Care Plan: Tsh Cancelled 08/19/2016 Care Plan: %Hba1C LOINC : [id number] Cancelled 08/19/2016 Care Plan: Lipid Cancelled 08/19/2016 Care Plan: Free T4 patient coming back next week Cancelled 08/19/2016 Appointment: Injection 07/29/2016 Patient Education: Patient Medication Summary Completed 07/29/2016 Appointment: Giselle Mccoy WPtel: [address] [place], [place] [phone] [place] (30 min) Complex 07/22/2016 Appointment: Giselle Mccoy WPtel: [address] [place], [place] [phone] [place] (30 min) Complex 07/15/2016 Patient Education: Patient Medication Summary Completed 07/15/2016 Patient Education: Obesity Completed 07/15/2016 Appointment: [facility] [phone] [phone] (15 min) Moderate 06/03/2016 Patient Education: Patient Medication Summary Completed 06/03/2016 Patient Education: Obesity Completed 06/03/2016 Appointment: Giselle Mccoy WPtel: [phone] [phone] (15 min) Moderate 04/22/2016 Patient Education: Patient Medication Summary Completed 04/22/2016 Appointment: (15 min) Moderate 01/22/2016 Patient Education: Patient Medication Summary Completed 01/22/2016 Patient Education: Obesity Completed 01/22/2016 Patient Education: Hypertension Completed 01/22/2016 Appointment: (30 min) Complex 10/23/2015 Patient Education: Patient Medication Summary Completed 10/23/2015 Patient Education: Obesity Completed 10/23/2015 Patient Education: Hypertension Completed 10/23/2015 Patient Education: Patient Medication Summary Completed 09/15/2015 Patient Education: Patient Medication Summary Completed 09/12/2015 Patient Education: Hypertension Completed 09/12/2015 Appointment: Injection 09/08/2015 Patient Education: Patient Medication Summary Completed 09/08/2015 Appointment: Injection 09/01/2015 Patient Education: Patient Medication Summary Completed 09/01/2015 Appointment: Injection 08/25/2015 Patient Education: Patient Medication Summary Completed 08/25/2015 Patient Education: Patient Medication Summary Completed 08/06/2015 Appointment: (15 min) Moderate 08/05/2015 Patient Education: Patient Medication Summary Completed 08/05/2015 Patient Education: Hypertension Completed 08/05/2015 Patient Education: Patient Medication Summary Completed 04/11/2015 Appointment: (30 min) Complex 04/03/2015 Patient Education: Patient Medication Summary Completed 04/03/2015 Patient Education: Hypertension Completed 04/03/2015 Appointment: (15 min) Moderate 01/30/2015 Patient Education: Patient Medication Summary Completed 01/30/2015 Patient Education: Hypertension Completed 01/30/2015 Appointment: [facility] [phone] [phone] [place] ([place] New Patient 01/02/2015 Patient Education: Patient Medication Summary Completed 01/02/2015 Patient Education: Hypertension Completed 01/02/2015 Instructions No Instructions
--- OUTSIDE RECORDS SUMMARY | 2018-06-17 10:57 | XMS REPORT | CCD ---
Author Author [facility] Organization [facility] Address [address] [place] [address] Phone Care Team Providers Care Resident Care Spec Name Role Phone PP Unavailable CCM Unavailable Summary Purpose Interface Exchange Insurance Providers Payer name Policy type / Coverage type Covered green party ID Effective Begin Date Effective End Date [facility] Commercial Insurance [id number] Unknown Family history Runs in the family [...] Start Date Stop Date Status Fill Instructions One Touch Test strips RxNorm: 1 test Miscellaneous BID 201708/16/2018 Active Contour Test Strips RxNorm: TEST BLOOD SUGAR TWO TIMES A DAY E11.65 08/22/2017 02/22/2019 Active Tamiflu 75 mg capsule RxNorm: 585353 1 Capsule(s) PO daily 08/1708/26/2017 Active Tamiflu 75 mg capsule RxNorm: 671446 1 Capsule(s) PO daily 08/1708/16/2017 Inactive cyanocobalamin (vit B-12) 1,000 mcg/mL injection solution RxNorm: 963866 1 Milliliter(s) Inj 08/17/2017 08/17/2017 Inactive carvedilol 12.5 mg tablet RxNorm: 358230 TAKE ONE TABLET BY MOUTH TWICE A DAY 08/10/2017 08/04/2018 Active cyanocobalamin (vit B-12) 1,000 mcg/mL injection solution RxNorm: 132611 1 Milliliter(s) Inj 07/19/2017 07/19/2017 Inactive Humulin 70/30 100 unit/mL subcutaneous suspension RxNorm: 044440 14 Unit(s) SQ QAM 07/06/2017 No Stop Date Active Lantus Solostar 100 unit/mL (3 mL) subcutaneous insulin pen RxNorm: 321404 26 Unit(s) SQ QHS 07/06/2017 No Stop Date Active losartan 100 mg tablet RxNorm: 095683 TAKE ONE TABLET BY MOUTH DAILY 06/07/2017 04/02/2018 Active Lantus Solostar 100 unit/mL (3 mL) subcutaneous insulin pen RxNorm: 861826 28 Unit(s) SQ QHS 05/19/2017 07/05/2017 Inactive cyanocobalamin (vit B-12) 1,000 mcg/mL injection solution RxNorm: 404986 1 Milliliter(s) Inj 05/19/2017 05/19/2017 Inactive terazosin 2 mg capsule RxNorm: 734444 TAKE ONE CAPSULE BY MOUTH DAILY 05/16/2017 10/12/2017 Active cyanocobalamin (vit B-12) 1,000 mcg/mL injection solution RxNorm: 850795 1 Milliliter(s) Inj 04/06/2017 04/06/2017 Inactive cyanocobalamin (vit B-12) 1,000 mcg/mL injection solution RxNorm: 096603 Milliliter(s) Inj 01/04/2017 01/04/2017 Inactive Humulin 70/30 100 unit/mL subcutaneous suspension RxNorm: 016880 18 Unit(s) SQ QAM 12/22/2016 06/04/2017 Inactive cyanocobalamin (vit B-12) 1,000 mcg/mL injection solution RxNorm: 154935 1 Milliliter(s) Inj 12/10/2016 12/10/2016 Inactive Zithromax Z-Jose 250 mg tablet RxNorm: 160558 1 Tablet(s) PO UD 11/16/2016 11/20/2016 Inactive terazosin 2 mg capsule RxNorm: 724461 TAKE ONE CAPSULE BY MOUTH DAILY 11/08/2016 05/06/2017 Inactive Lantus Solostar 100 unit/mL (3 mL) subcutaneous insulin pen RxNorm: 777598 INJECT 35 UNITS UNDER THE SKIN EVERY NIGHT AT BEDTIME 201607/18/2017 Inactive cyanocobalamin (vit B-12) 1,000 mcg/mL injection solution RxNorm: 107826 Milliliter(s) Inj 10/13/2016 10/13/2016 Inactive cyanocobalamin (vit B-12) 1,000 mcg/mL injection solution RxNorm: 526813 1 Milliliter(s) Inj 09/03/2016 09/03/2016 Inactive Contour Test Strips RxNorm: TEST BLOOD SUGAR TWO TIMES A DAY E11.65 08/19/2016 08/21/2017 Inactive carvedilol 12.5 mg tablet RxNorm: 030415 TAKE ONE TABLET BY MOUTH TWICE A DAY 08/05/2016 01/01/2017 Inactive carvedilol 12.5 mg tablet RxNorm: 792800 TAKE ONE TABLET BY MOUTH TWICE A DAY 08/05/2016 01/01/2017 Inactive carvedilol 12.5 mg tablet RxNorm: 116355 1 Tablet(s) PO BID 05/201701/30/2017 Inactive cyanocobalamin (vit B-12) 1,000 mcg/mL injection solution RxNorm: 326859 Milliliter(s) Inj 07/29/2016 07/29/2016 Inactive Lantus Solostar 100 unit/mL (3 mL) subcutaneous insulin pen RxNorm: 644238 30 Unit(s) SQ QHS 07/15/2016 05/18/2017 Inactive Humulin 70/30 100 unit/mL subcutaneous suspension RxNorm: 595686 18 Unit(s) SQ QA 07/15/2016 12/21/2016 Inactive losartan 100 mg tablet RxNorm: 994968 TAKE ONE TABLET BY MOUTH DAILY 07/08/2016 06/02/2017 Inactive terazosin 2 mg capsule RxNorm: 219087 TAKE ONE CAPSULE BY MOUTH DAILY 06/10/2016 11/06/2016 Inactive cyanocobalamin (vit B-12) 1,000 mcg/mL injection solution RxNorm: 436087 1 Milliliter(s) Inj 06/03/2016 06/03/2016 Inactive Humulin 70/30 100 unit/mL subcutaneous suspension RxNorm: 912752 Unit(s) INJECT 10 UNITS UNDER THE SKIN 06/01/20162015 Inactive Request already responded to by other means (e.g. phone or fax) Humulin 70/30 100 unit/mL subcutaneous suspension RxNorm: 753665 INJECT 10 UNITS UNDER THE SKIN BEFORE MEALS 06/01/201601/2016 Inactive Request already responded to by other means (e.g. phone or fax) Lantus Solostar 100 unit/mL (3 mL) subcutaneous insulin pen RxNorm: 100215 35 Unit(s) SQ [facility] 05/26/2016 07/14/2016 Inactive Humulin 70/30 100 unit/mL subcutaneous suspension RxNorm: 658877 10 Unit(s) SQ QA 05/24/2016 10/02/2016 Inactive Humulin 70/30 100 unit/mL subcutaneous suspension RxNorm: 803469 21 Unit(s) SQ QA 05/24/2016 05/23/2016 Inactive Lantus Solostar 100 unit/mL (3 mL) subcutaneous insulin pen RxNorm: 495732 32 Unit(s) SQ Q 04/22/2016 05/25/2016 Inactive Humulin 70/30 100 unit/mL subcutaneous suspension RxNorm: 758995 21 Unit(s) SQ QA 04/22/2016 05/24/2016 Inactive with breakfast hydrochlorothiazide 25 mg tablet RxNorm: 228033 TAKE ONE TABLET BY MOUTH DAILY 02/04/2016 02/16/2016 Inactive terazosin 2 mg capsule RxNorm: 926574 Capsule(s) TAKE ONE CAPSULE BY MOUTH DAILY. 12/01/2015 05/28/2016 Inactive Humulin 70/30 100 unit/mL subcutaneous suspension RxNorm: 462174 INJECT 10 UNITS UNDER THE SKIN BEFORE MEALS 11/06/2015 Inactive hydrochlorothiazide 25 mg tablet RxNorm: 373529 1 Tablet(s) PO daily 10/06/2015 02/02/2016 Inactive cyanocobalamin (vit B-12) 1,000 mcg/mL injection solution RxNorm: 018987 Milliliter(s) Inj 09/15/2015 09/15/2015 Inactive Humulin 70/30 100 unit/mL subcutaneous suspension RxNorm: 677079 INJECT 10 UNITS UNDER THE SKIN BEFORE MEALS 09/08/2015 Inactive cyanocobalamin (vit B-12) 1,000 mcg/mL injection solution RxNorm: 567096 Milliliter(s) Inj 09/08/2015 09/08/2015 Inactive terazosin 2 mg capsule RxNorm: 891904 TAKE ONE CAPSULE BY MOUTH DAILY. DISCONTINUE 5 MG CAPSULES 09/01/201511/28 Inactive cyanocobalamin (vit B-12) 1,000 mcg/mL injection solution RxNorm: 217703 Milliliter(s) Inj 09/01/2015 09/01/2015 Inactive cyanocobalamin (vit B-12) 1,000 mcg/mL injection solution RxNorm: 939094 Milliliter(s) Inj 08/25/2015 08/25/2015 Inactive levothyroxine 112 mcg tablet RxNorm: 246497 1 Tablet(s) PO daily 08/06/2015 02/14/2017 Inactive Lantus Solostar 100 unit/mL (3 mL) subcutaneous insulin pen RxNorm: 037509 35 Unit(s) SQ QHS 08/06/2015 04/21/2016 Inactive Humulin 70/30 100 unit/mL subcutaneous suspension RxNorm: 615435 20 Unit(s) SQ AC 08/05/2015 04/21/2016 Inactive with breakfast carvedilol 12.5 mg tablet RxNorm: 942841 1 Tablet(s) PO BID 06/201601/31/2016 Inactive Humulin 70/30 100 unit/mL subcutaneous suspension RxNorm: 554454 10 Unit(s) SQ AC 07/22/2015 08/04/2015 Inactive losartan 100 mg tablet RxNorm: 791034 TAKE ONE TABLET BY MOUTH DAILY 06/25/2015 06/18/2016 Inactive Lantus Solostar 100 unit/mL (3 mL) subcutaneous insulin pen RxNorm: 024907 30 Unit(s) SQ QHS 06/18/2015 08/05/2015 Inactive terazosin 2 mg capsule RxNorm: 326786 1 Capsule(s) PO daily 08/11/2015 Inactive DC the 5mg order terazosin 2 mg capsule RxNorm: 576093 1 Capsule(s) PO daily 04/13/2015 Inactive Synthroid 25 mcg tablet RxNorm: 053291 1 Tablet(s) PO daily 02/14/2017 Inactive Synthroid 25 mcg tablet RxNorm: 613323 1 Tablet(s) PO daily 04/10/2015 Inactive Lantus Solostar 100 unit/mL (3 mL) subcutaneous insulin pen RxNorm: 350163 30 Unit(s) SQ QHS 04/04/2015 06/17/2015 Inactive terazosin 5 mg tablet RxNorm: 459158 1 Tablet(s) PO daily 201404/13/2015 Inactive Lantus Solostar 100 unit/mL (3 mL) subcutaneous insulin pen RxNorm: 299376 25 Unit(s) SQ QHS 01/08/2015 04/03/2015 Inactive carvedilol 25 mg tablet RxNorm: 181122 1 Tablet(s) PO BID 01/0201/31/2015 Inactive terazosin 5 mg tablet RxNorm: 346293 1 Tablet(s) PO daily 201401/01/2015 Inactive levothyroxine 125 mcg tablet RxNorm: 619730 1 Tablet(s) PO daily 01/02/2015 01/31/2015 Inactive terazosin 5 mg tablet RxNorm: 441609 1/2 Tablet(s) PO daily 05/201501/31/2015 Inactive losartan 100 mg tablet RxNorm: 570477 1 Tablet(s) PO daily 08/201404/22/2015 Inactive losartan 100 mg tablet RxNorm: 570664 1 Tablet(s) PO daily 08/201412/23/2014 Inactive Contour Test Strips RxNorm: Miscellaneous test blood sugars BID 12/06/2014 12/05/2014 Inactive dx 250.00 Contour Test Strips RxNorm: Miscellaneous test blood sugars BID or UD 12/06/2014 06/23/2015 Inactive dx 250.00 [SAVINGS FOR NON-COVERED DRUGS -- BIN:[id number], PCN: [id number], Group: [id number], ID# [id number], Questions: . THIS IS NOT INSURANCE.] folic acid 1 mg tablet RxNorm: 133236 1 Tablet(s) PO QHS No Start Date Active Microlet Lancet RxNorm : Miscellaneous Test BID or Ud No Start Date Active 250.0 aspirin 81 mg tablet,delayed release RxNorm: 596869 1 Tablet(s) PO daily No Start Date Active Stool Softener 100 mg capsule RxNorm: 8043509 1 Capsule(s) PO every other day No Start Date Active levothyroxine 100 mcg tablet RxNorm: 914858 1 Tablet(s) PO daily No Start Date Active folic acid oral RxNorm : 4511 oral No Start Date 05/19/2017 Inactive cyanocobalamin (vit B-12) 100 mcg tablet RxNorm: 182515 1 Tablet(s) PO daily No Start Date 02/14/2017 Inactive hydrochlorothiazide 25 mg tablet RxNorm: 684949 1 Tablet(s) PO daily No Start Date 10/05/2015 Inactive Stool Softener 100 mg capsule RxNorm: 1062046 1 Capsule(s) PO daily No Start Date 05/18/2017 Inactive Humulin 70/30 100 unit/mL subcutaneous suspension RxNorm: 461798 20 Unit(s) SQ QAM No Start Date 07/21/2015 Inactive Lantus Solostar 100 unit/mL (3 mL) subcutaneous insulin pen RxNorm: 899296 20 Unit(s) SQ QHS No Start Date 01/07/2015 Inactive ferrous sulfate 325 mg (65 mg iron) tablet RxNorm: 046805 1 Tablet(s) PO daily No Start Date 05/18/2017 Inactive Medication Administered Medication Codes Instructions Start Date Status cyanocobalamin (vit B-12) 1,000 mcg/mL injection solution RxNorm: 372401 1Milliliter 08/17/2017 No longer Active cyanocobalamin (vit B-12) 1,000 mcg/mL injection solution RxNorm: 086574 1Milliliter 07/19/2017 No longer Active cyanocobalamin (vit B-12) 1,000 mcg/mL injection solution RxNorm: 062348 1Milliliter 05/19/2017 No longer Active cyanocobalamin (vit B-12) 1,000 mcg/mL injection solution RxNorm: 390424 1Milliliter 04/06/2017 No longer Active cyanocobalamin (vit B-12) 1,000 mcg/mL injection solution RxNorm: 895935 Milliliter 01/04/2017 No longer Active cyanocobalamin (vit B-12) 1,000 mcg/mL injection solution RxNorm: 118471 1Milliliter 12/10/2016 No longer Active cyanocobalamin (vit B-12) 1,000 mcg/mL injection solution RxNorm: 419467 Milliliter 10/13/2016 No longer Active cyanocobalamin (vit B-12) 1,000 mcg/mL injection solution RxNorm: 633219 1Milliliter 09/03/2016 No longer Active cyanocobalamin (vit B-12) 1,000 mcg/mL injection solution RxNorm: 152611 Milliliter 07/29/2016 No longer Active cyanocobalamin (vit B-12) 1,000 mcg/mL injection solution RxNorm: 688312 1Milliliter 06/03/2016 No longer Active cyanocobalamin (vit B-12) 1,000 mcg/mL injection solution RxNorm: 286386 Milliliter 09/15/2015 No longer Active cyanocobalamin (vit B-12) 1,000 mcg/mL injection solution RxNorm: 978710 Milliliter 09/08/2015 No longer Active cyanocobalamin (vit B-12) 1,000 mcg/mL injection solution RxNorm: 892440 Milliliter 09/01/2015 No longer Active cyanocobalamin (vit B-12) 1,000 mcg/mL injection solution RxNorm: 762272 Milliliter 08/25/2015 No longer Active Immunizations Vaccine [...] Observation Code Item Item Code Result Date %Hba1C Num989 % HbA1c 17485-8 6.8 % 05/19/2017 %Hba1C Bbu759 Gluc Ave 148 mg/dL 05/19/2017 Cbc With Differential Ord2 WBC 8.04 K/ul 05/19/2017 Cbc With Differential Ord2 RBC 3.93 M/ul 05/19/2017 Cbc With Differential Ord2 HGB 11.9 g/dl 05/19/2017 Cbc With Differential Ord2 Neut% 70.8 % 05/19/2017 Cbc With Differential Ord2 HCT 36.8 % 05/19/2017 Cbc With Differential Ord2 MCV 93.6 fl 05/19/2017 Cbc With Differential Ord2 Lymph% 20.4 % 05/19/2017 Cbc With Differential Ord2 [place]% 6.8 % 05/19/2017 Cbc With Differential Ord2 [...] 1.64 K/ul 05/19/2017 Cbc With Differential Ord2 [place] ABS# 0.6 K/ul 05/19/2017 Cbc With Differential Ord2 Eos ABS# 0.2 K/ul 05/19/2017 Cbc With Differential Ord2 Baso ABS# 0.0 K/ul 05/19/2017 B12 Vrr700 B12 >1500.00 pg/ml 05/19/2017 Free T4 Uex791 FREE T4 1.10 ng/dL 05/19/2017 Tsh Ord6 hTSH II 1.73 uIU/mL 05/19/2017 Comp Metabolic Qdf942 NA 140 mEq/L 05/19/2017 Comp Metabolic Zag788 K 3.8 mEq/L 05/19/2017 Comp Metabolic Knf277 CL 108 mEq/L 05/19/2017 Comp Metabolic Eyl987 CO2 21.0 mEq/L 05/19/2017 Comp Metabolic Nkv012 ANION GAP 15 05/19/2017 Comp Metabolic Yqo876 GLUCOSE 207 mg/dL 05/19/2017 Comp Metabolic Pld689 Creat 1.0 mg/dL 05/19/2017 Comp Metabolic Bcp623 eGFR 55 ml/min/1.73m2 05/19/2017 Comp Metabolic Frd835 BUN 21 mg/dL 05/19/2017 Comp Metabolic Xlw516 B/C Ratio 20.4 Ratio 05/19/2017 Comp Metabolic Ohv768 CALCIUM 9.1 mg/dL 05/19/2017 Comp Metabolic Hqt115 ALK PHOS 74 U/L 05/19/2017 Comp Metabolic Ezk324 AST(SGOT) 32 U/L 05/19/2017 Comp Metabolic Lom007 ALT(SGPT) 15 U/L 05/19/2017 Comp Metabolic Uva364 BILI T 0.6 mg/dL 05/19/2017 Comp Metabolic Eky977 ALBUMIN 3.9 g/dL 05/19/2017 Comp Metabolic Xgw780 TPRO 6.2 g/dL 05/19/2017 Comp Metabolic Lco670 GLOB 2.3 g/dL 05/19/2017 Comp Metabolic Enq389 A/G Ratio 1.6 Ratio 05/19/2017 Comp Metabolic Yvt978 Osmo 288 mOsmo 05/19/2017 Cbc With Differential [...] 29.3 pg 12/10/2016 Cbc With Differential Ord2 [place]% 7.1 % 12/10/2016 Cbc With Differential Ord2 MCHC 31.7 pg 12/10/2016 Cbc With Differential Ord2 Eos% 2.1 % 12/10/2016 Cbc With Differential Ord2 Baso% 0.3 % 12/10/2016 Cbc With Differential Ord2 PLT 190 K/ul 12/10/2016 Cbc With Differential Ord2 RDW 14.6 % 12/10/2016 Cbc With Differential Ord2 Neut ABS# 3.66 K/ul 12/10/2016 Cbc With Differential Ord2 Lymph ABS# 2.50 K/ul 12/10/2016 Cbc With Differential Ord2 [place] ABS# 0.5 K/ul 12/10/2016 Cbc With Differential Ord2 Eos ABS# 0.1 K/ul 12/10/2016 Cbc With Differential Ord2 Baso ABS# 0.0 K/ul 12/10/2016 B12 Ama531 B12 222.00 pg/ml 12/10/2016 %Hba1C Egx332 % HbA1c 32033-9 7.5 % 11/16/2016 %Hba1C Fkk807 Gluc Ave 169 mg/dL 11/16/2016 Comp Metabolic Fsi973 NA 138 mEq/L 11/16/2016 Comp Metabolic Vvh042 K 3.8 mEq/L 11/16/2016 Comp Metabolic Xhw173 CL 103 mEq/L 11/16/2016 Comp Metabolic Vbu482 CO2 26.0 mEq/L 11/16/2016 Comp Metabolic Biz008 ANION GAP 13 11/16/2016 Comp Metabolic Ncb223 GLUCOSE 235 mg/dL 11/16/2016 Comp Metabolic Qba076 Creat 0.9 mg/dL 11/16/2016 Comp Metabolic Kgy834 eGFR 62 ml/min/1.73m2 11/16/2016 Comp Metabolic Xau414 BUN 20 mg/dL 11/16/2016 Comp Metabolic Dag489 B/C Ratio 21.7 Ratio 11/16/2016 Comp Metabolic Fme544 CALCIUM 8.9 mg/dL 11/16/2016 Comp Metabolic Nng786 ALK PHOS 75 U/L 11/16/2016 Comp Metabolic Nqd245 AST(SGOT) 30 U/L 11/16/2016 Comp Metabolic Rup158 ALT(SGPT) 13 U/L 11/16/2016 Comp Metabolic Jrd198 BILI T 0.6 mg/dL 11/16/2016 Comp Metabolic Eba817 ALBUMIN 3.8 g/dL 11/16/2016 Comp Metabolic Ltf687 TPRO 6.8 g/dL 11/16/2016 Comp Metabolic Ceu165 GLOB 3.1 g/dL 11/16/2016 Comp Metabolic Uum551 A/G Ratio 1.2 Ratio 11/16/2016 Comp Metabolic Iuh687 Osmo 286 mOsmo 11/16/2016 Tsh Ord6 hTSH II 2.50 uIU/mL 11/16/2016 Free T4 Wcm523 FREE T4 1.03 ng/dL 11/16/2016 Folate Ord36 Folate >23.80 ng/mL 05/21/2016 %Hba1C Qls808 % HbA1c 09901-1 7.5 % 05/21/2016 %Hba1C Jor006 Gluc Ave 169 mg/dL 05/21/2016 B12 Dgr368 B12 159.00 pg/ml 05/21/2016 Lipid Ord30 CHOL 212 mg/dL 05/21/2016 Lipid Ord30 HDL 43.0 mg/dl 05/21/2016 Lipid Ord30 TRIG 164 mg/dL 05/21/2016 Lipid Ord30 LDL 136 mg/dL 05/21/2016 Lipid Ord30 C/HDL 4.9 Ratio 05/21/2016 Free T4 Tdd810 FREE T4 1.03 ng/dL 05/21/2016 Tsh Ord6 hTSH II 3.18 uIU/mL 05/21/2016 GFR CALC 7294886 GFR Non Afr Amr 54 mL/min 03/15/2016 GFR CALC 7517553 GFR Afr Amr >60 mL/min 03/15/2016 CHEM 14 7998643 AST 33 U/L 03/15/2016 CHEM 14 8389760 ALT 13 U/L 03/15/2016 CHEM 14 4391647 BUN 18 mg/dL 03/15/2016 CHEM 14 0244433 ALBUMIN 3.9 g/dL 03/15/2016 CHEM 14 8913546 CHLORIDE 105 mmol/L 03/15/2016 CHEM 14 3341570 Bili Total 0.4 mg/dL 03/15/2016 CHEM 14 2492449 ALK PHOS 60 U/L 03/15/2016 CHEM 14 9542791 SODIUM 138 mmol/L 03/15/2016 CHEM 14 9893538 CREATININE 0.99 mg/dL 03/15/2016 CHEM 14 0704668 CALCIUM 9.4 mg/dL 03/15/2016 CHEM 14 1702555 POTASSIUM 3.8 mmol/L 03/15/2016 CHEM 14 7900232 TOTAL PROTEIN 6.7 g/dL 03/15/2016 CHEM 14 5720378 GLUCOSE 109 mg/dL 03/15/2016 CHEM 14 9014723 Bicarbonate 27 mmol/L 03/15/2016 CHEM 14 8696585 AGAP 6 mmol/L 03/15/2016 Iron Ord72 Iron 66 ug/dl 08/07/2015 B12 Ysm391 B12 46.00 pg/ml 08/07/2015 %Hba1C Sdd429 % HbA1c 09774-2 8.1 % 08/05/2015 %Hba1C Bju108 Gluc Ave 186 mg/dL 08/05/2015 Cbc With Differential Ord2 WBC 4.9 K/uL [...] With Differential Ord2 RDW 16.6 % 08/05/2015 Tsh Ord6 hTSH II 0.36 uIU/mL 08/05/2015 Comp Metabolic Jzf549 NA 137 mEq/L 08/05/2015 Comp Metabolic Gjt470 K 4.5 mEq/L 08/05/2015 Comp Metabolic Ive334 CL 104 mEq/L 08/05/2015 Comp Metabolic Kjt253 CO2 26.0 mEq/L 08/05/2015 Comp Metabolic Jcd109 ANION GAP 12 08/05/2015 Comp Metabolic Uwp359 GLUCOSE 146 mg/dL 08/05/2015 Comp Metabolic Zaj365 Creat 1.0 mg/dL 08/05/2015 Comp Metabolic Jjw859 eGFR 56 ml/min/1.73m2 08/05/2015 Comp Metabolic Xiy003 BUN 23 mg/dL 08/05/2015 Comp Metabolic Osp435 B/C Ratio 22.8 Ratio 08/05/2015 Comp Metabolic Zlx765 CALCIUM 9.3 mg/dL 08/05/2015 Comp Metabolic Leg529 ALK PHOS 71 U/L 08/05/2015 Comp Metabolic Dbm207 AST(SGOT) 33 U/L 08/05/2015 Comp Metabolic Eic336 ALT(SGPT) 15 U/L 08/05/2015 Comp Metabolic Hqb407 BILI T 0.6 mg/dL 08/05/2015 Comp Metabolic Jar316 ALBUMIN 3.9 g/dL 08/05/2015 Comp Metabolic Lzf770 TPRO 6.5 g/dL 08/05/2015 Comp Metabolic Rkr499 GLOB 2.6 g/dL 08/05/2015 Comp Metabolic Hug109 A/G Ratio 1.5 Ratio 08/05/2015 Comp Metabolic Agj870 Osmo 280 mOsmo 08/05/2015 Free T4 Lio092 FREE T4 1.33 ng/dL 08/05/2015 Free T4 Wcy054 FREE T4 0.91 ng/dL 04/11/2015 %Hba1C Nmc651 % HbA1c 97278-8 8.3 % 04/10/2015 %Hba1C Ncu606 Gluc Ave 192 mg/dL 04/10/2015 Tsh Ord6 hTSH II 6.71 uIU/mL 04/10/2015 Comp Metabolic Xpn137 NA 134 mEq/L 04/10/2015 Comp Metabolic Kmw255 K 4.1 mEq/L 04/10/2015 Comp Metabolic Eur070 CL 105 mEq/L 04/10/2015 Comp Metabolic Uey182 CO2 26.0 mEq/L 04/10/2015 Comp Metabolic Pja463 ANION GAP 7 04/10/2015 Comp Metabolic Lhz804 GLUCOSE 126 mg/dL 04/10/2015 Comp Metabolic Axr210 Creat 1.0 mg/dL 04/10/2015 Comp Metabolic Hnd318 eGFR 58 ml/min/1.73m2 04/10/2015 Comp Metabolic Pvb984 BUN 29 mg/dL 04/10/2015 Comp Metabolic Tzr936 B/C Ratio 29.6 Ratio 04/10/2015 Comp Metabolic Vze936 CALCIUM 9.3 mg/dL 04/10/2015 Comp Metabolic Wci305 ALK PHOS 63 U/L 04/10/2015 Comp Metabolic Ott143 AST(SGOT) 31 U/L 04/10/2015 Comp Metabolic Npc597 ALT(SGPT) 14 U/L 04/10/2015 Comp Metabolic Maz223 BILI T 0.6 mg/dL 04/10/2015 Comp Metabolic Wuj351 ALBUMIN 3.9 g/dL 04/10/2015 Comp Metabolic Dyc220 TPRO 6.3 g/dL 04/10/2015 Comp Metabolic Pan205 GLOB 2.4 g/dL 04/10/2015 Comp Metabolic See470 A/G Ratio 1.6 Ratio 04/10/2015 Comp Metabolic Urc556 Osmo 276 mOsmo 04/10/2015 Cbc With Differential [...] With Differential Ord2 RDW 15.8 % 04/10/2015 Review of Systems System Result Effective [...] Procedure Codes Date THER/PROPH/DIAG INJ SC/IM CPT-4: 21151 08/17/2017 VITAMIN B12 INJECTION CPT-4: J3420 08/17/2017 THER/PROPH/DIAG INJ SC/IM CPT-4: 38059 07/19/2017 VITAMIN B12 INJECTION CPT-4: J3420 07/19/2017 THER/PROPH/DIAG INJ SC/IM CPT-4: 38301 05/19/2017 VITAMIN B12 INJECTION CPT-4: J3420 05/19/2017 THER/PROPH/DIAG INJ SC/IM CPT-4: 36301 04/06/2017 VITAMIN B12 INJECTION CPT-4: J3420 04/06/2017 THER/PROPH/DIAG INJ SC/IM CPT-4: 31785 01/04/2017 VITAMIN B12 INJECTION CPT-4: J3420 01/04/2017 THER/PROPH/DIAG INJ SC/IM CPT-4: 01587 12/10/2016 VITAMIN B12 INJECTION CPT-4: J3420 12/10/2016 THER/PROPH/DIAG INJ SC/IM CPT-4: 60968 10/13/2016 TRIAMCINOLONE ACET INJ NOS CPT-4: J3301 10/13/2016 THER/PROPH/DIAG INJ SC/IM CPT-4: 06013 09/03/2016 VITAMIN B12 INJECTION CPT-4: J3420 09/03/2016 THER/PROPH/DIAG INJ SC/IM CPT-4: 22770 07/29/2016 VITAMIN B12 INJECTION CPT-4: J3420 07/29/2016 THER/PROPH/DIAG INJ SC/IM CPT-4: 13967 06/03/2016 VITAMIN B12 INJECTION CPT-4: J3420 06/03/2016 PNEUMOCOCCAL VACC [address]: 88758155 CPT-4: 08746 04/22/2016 ADMIN PNEUMOCOCCAL VACCINE SNOMED CT: 33054517 CPT-4: G0009 04/22/2016 VITAMIN B12 INJECTION CPT-4: J3420 09/15/2015 THER/PROPH/DIAG INJ SC/IM CPT-4: 77603 09/15/2015 THER/PROPH/DIAG INJ SC/IM CPT-4: 62174 09/08/2015 VITAMIN B12 INJECTION CPT-4: J3420 09/08/2015 THER/PROPH/DIAG INJ SC/IM CPT-4: 57491 09/01/2015 VITAMIN B12 INJECTION CPT-4: J3420 09/01/2015 THER/PROPH/DIAG INJ SC/IM CPT-4: 35172 08/25/2015 VITAMIN B12 INJECTION CPT-4: J3420 08/25/2015 Vital Signs Date Vital 08/17/2017 Blood Pressure 1: 144/70 Code : 8480-6 BMI: 41.8 Code : 99892-6 Heart Rate 1 : 63 bpm Height: 4'11" SpO2: 97% Weight: 207 lbs 07/19/2017 Blood Pressure 1: 142/74 Code : 8480-6 BMI: 41.4 Code : 42881-5 Heart Rate 1 : 71 bpm Height: 4'11" SpO2: 96% Weight: 205 lbs 05/19/2017 Blood Pressure 1: 148/76 Code : 8480-6 BMI: 42.8 Code : 39898-7 Heart Rate 1 : 72 bpm Height: 4'11" SpO2: 94% Weight: 212 lbs 02/15/2017 Blood Pressure 1: 154/70 Code : 8480-6 BMI: 42.5 Code : 46000-0 Heart Rate 1 : 68 bpm Height: 4'11" SpO2: 97% Weight: 210 lbs 8 oz 11/16/2016 Blood Pressure 1: 142/78 Code : 8480-6 BMI: 41.6 Code : 03616-2 Heart Rate 1 : 68 bpm Height: 4'11" SpO2: 95% Temperature: 36.0 (C) / 96.8 (F) Weight: 206 lbs 08/19/2016 Blood Pressure 1: 120/74 Code : 8480-6 BMI: 41.6 Code : 93585-6 Heart Rate 1 : 75 bpm Height: 4'11" SpO2: 95% Weight: 206 lbs 07/15/2016 Blood Pressure 1: 140/76 Code : 8480-6 BMI: 42.0 Code : 48827-4 Heart Rate 1 : 76 bpm Height: 4'11" SpO2: 96% Weight: 208 lbs 06/03/2016 Blood Pressure 1: 130/78 Code : 8480-6 BMI: 42.8 Code : 19555-1 Heart Rate 1 : 72 bpm Height: 4'11" SpO2: 98% Weight: 212 lbs 04/22/2016 Blood Pressure 1: 142/84 Code : 8480-6 BMI: 41.8 Code : 71852-4 Heart Rate 1 : 86 bpm Height: 4'11" SpO2: 92% Weight: 207 lbs 01/22/2016 Blood Pressure 1: 162/64 Code : 8480-6 BMI: 41.2 Code : 48684-9 Heart Rate 1 : 70 bpm Height: 4'11" SpO2: 97% Weight: 204 lbs 10/23/2015 Blood Pressure 1: 130/70 Code : 8480-6 BMI: 40.4 Code : 27010-6 Heart Rate 1 : 72 bpm Height: 4'11" SpO2: 95% Weight: 200 lbs 09/12/2015 Blood Pressure 1: 142/62 Code : 8480-6 BMI: 39.4 Code : 07696-4 Heart Rate 1 : 63 bpm Height: 4'11" SpO2: 96% Weight: 195 lbs 08/05/2015 Blood Pressure 1: 144/60 Code : 8480-6 BMI: 41.0 Code : 44634-1 Heart Rate 1 : 92 bpm Height: 4'11" SpO2: 90% SpO2: 97% Weight: 203 lbs 04/03/2015 Blood Pressure 1: 142/68 Code : 8480-6 BMI: 40.6 Code : 97977-4 Heart Rate 1 : 77 bpm Height: 4'11" SpO2: 95% Weight: 201 lbs 01/30/2015 Blood Pressure 1: 150/72 Code : 8480-6 BMI: 40.2 Code : 11513-0 Heart Rate 1 : 64 bpm Height: 4'11" Weight: 199 lbs 01/02/2015 Blood Pressure 1: 136/72 Code : 8480-6 BMI: 39.8 Code : 69453-1 Heart Rate 1 : 68 bpm Height: [...] data Encounters Encounter Performer Location Codes Date [id number] EST. PATIENT, LEVEL IV Diagnosis: Essential (primary) hypertension[ICD10: I10] Diagnosis: Type 2 diabetes mellitus with hyperglycemia[ICD10: E11.65] Diagnosis: Vitamin B12 deficiency anemia due to intrinsic factor deficiency[ ICD10: D51.0] Chasity Knox MD, [facility] CPT-4: 45808 [id number] EST. PATIENT, LEVEL IV Diagnosis: Type 2 diabetes mellitus with hyperglycemia[ICD10: E11.65] Diagnosis: Essential (primary) hypertension[ICD10: I10] Diagnosis: Vitamin B12 deficiency anemia due to intrinsic factor deficiency[ ICD10: D51.0] Chasity Knox MD, [facility] CPT-4: 84300 ([id number]) [id number] EST. PATIENT, LEVEL IV Diagnosis: Essential (primary) hypertension[ICD10: I10] Diagnosis: Type 2 diabetes mellitus with hyperglycemia[ICD10: E11.65] Diagnosis: Hypothyroidism, unspecified[ICD10: E03.9] Diagnosis: Vitamin B12 deficiency anemia due to intrinsic factor deficiency[ ICD10: D51.0] Diagnosis: Chronic kidney disease, stage 3 (moderate)[ICD10: N18.3] Giselle Knox MD , [facility] CPT-4: 98388 05/19/2017 ([id number]) [id number] EST. PATIENT, LEVEL IV Diagnosis: Essential (primary) hypertension[ICD10: I10] Diagnosis: Type 2 diabetes mellitus with hyperglycemia[ICD10: E11.65] Diagnosis: Hypothyroidism, unspecified[ICD10: E03.9] Giselle Knox MD, [facility] CPT-4: 23607 02/15/2017 [id number]) 41863 EST. PATIENT, LEVEL IV Diagnosis: Type 2 diabetes mellitus with hyperglycemia[ICD10: E11.65] Diagnosis: Cough[ICD10: R05] Diagnosis: Acute upper respiratory infection, unspecified[ICD10: J06.9] Diagnosis: Hypothyroidism, unspecified[ICD10: E03.9] Diagnosis: Chronic kidney disease, stage 3 (moderate)[ICD10: N18.3] Giselle Knox MD , [facility] CPT-4: 60902 11/16/2016 ([id number]) 33296 EST. PATIENT, LEVEL IV Diagnosis: Type 2 diabetes mellitus with hyperglycemia[ICD10: E11.65] Diagnosis: Hypothyroidism, unspecified[ICD10: E03.9] Diagnosis: Essential (primary) hypertension[ICD10: I10] Giselle Knox MD, [facility] CPT-4: 60880 08/19/2016 ([id number]) 83932 EST. PATIENT, LEVEL III Diagnosis: Type 2 diabetes mellitus with hyperglycemia[ICD10: E11.65] Giselle Knox MD, [facility] CPT-4: 89666 07/15/2016 ([id number]) 41842 EST. PATIENT, LEVEL IV Diagnosis: Type 2 diabetes mellitus with hyperglycemia[ICD10: E11.65] Diagnosis: Atrophy of thyroid (acquired)[ICD10: E03.4] Diagnosis: Vitamin B12 deficiency anemia due to intrinsic factor deficiency[ ICD10: D51.0] Diagnosis: Chronic kidney disease, stage 3 (moderate)[ICD10: N18.3] Diagnosis: Essential (primary) hypertension[ICD10: I10] Jennifer Knox MD, [facility] CPT-4: 85194 06/03/2016 ([id number]) 63900 EST. PATIENT, LEVEL III Diagnosis: Type 2 diabetes mellitus with hyperglycemia[ICD10: E11.65] Diagnosis: Essential (primary) hypertension[ICD10: I10] Diagnosis: Chronic kidney disease, stage 3 (moderate)[ICD10: N18.3] Diagnosis: VACCIN STREP PNEUMONIAE[ICD10: Z23] Giselle Knox MD, [facility] CPT-4: 46484 04/22/2016 80685 EST. PATIENT, LEVEL IV Diagnosis: Type 2 diabetes mellitus with hyperglycemia[ICD10: E11.65] Diagnosis: Essential (primary) hypertension[ICD10: I10] Chasity Knox MD, [facility] CPT-4: 77232 01/22/2016 ([id number]) 12034 EST. PATIENT, LEVEL III Diagnosis: Type 2 diabetes mellitus with hyperglycemia[ICD10: E11.65] Diagnosis: Essential (primary) hypertension[ICD10: I10] Giselle Knox MD, [facility] CPT-4: 07761 10/23/2015 26446 EST. PATIENT, LEVEL IV Diagnosis: Type 2 diabetes mellitus with hyperglycemia[ICD10: E11.65] Diagnosis: Vitamin B12 deficiency anemia due to intrinsic factor deficiency[ ICD10: D51.0] Diagnosis: Essential (primary) hypertension[ICD10: I10] Chasity Knox MD, [facility] CPT-4: 56602 09/12/2015 ([id number]) 87113 EST. PATIENT, LEVEL IV Diagnosis: Essential (primary) hypertension[ICD10: I10] Diagnosis: Type 2 diabetes mellitus with hyperglycemia[ICD10: E11.65] Diagnosis: Hypothyroidism, unspecified[ICD10: E03.9] Giselle Knox MD, [facility] CPT-4: 07624 08/05/2015 ([id number]) 21124 EST. PATIENT, LEVEL III Diagnosis: ESSENTIAL HYPERTENSION[ICD9: 401.9] Diagnosis: DIABETES TYPE II[ICD9: 250.00] Jennifer Knox MD, [facility] CPT- 4: 53644 04/03/2015 ([id number]) 09563 EST. PATIENT, LEVEL IV Diagnosis: ESSENTIAL HYPERTENSION[ICD9: 401.9] Diagnosis: DIABETES TYPE II[ICD9: 250.00] Diagnosis: Hypothyroidism[ICD9: 244.9] Giselle Knox MD, [facility] CPT-4: 40235 01/30/2015 ([id number]) OFFICE VISIT, NEW - LEVEL 4 Diagnosis: ESSENTIAL HYPERTENSION[ICD9: 401.9] Diagnosis: DIABETES TYPE II[ICD9: 250.00] Diagnosis: Impacted cerumen[ICD9: 380.4] Jennifer Knox MD, [facility] CPT- 4: 89871 01/02/2015 Plan of Care Planned Activity Notes Codes Status Date Appointment: Chasity Caldwell WPtel: [address] [place], [place] [phone] [place] (15 min) Moderate 08/17/2017 Patient Education: Patient Medication Summary Completed 08/17/2017 Appointment: Chasity Caldwell WPtel: [address] [place], [place] [phone] (15 min) Moderate 07/19/2017 Patient Education: Patient Medication Summary Completed 07/19/2017 Appointment: Jennifer Knox WPtel: [address] [place], [place] [phone] (15 min) Moderate 06/13/2017 Appointment: Giselle Mccoy WPtel: [phone] [place] (30 min) Complex 05/19/2017 Patient Education: Patient Medication Summary Completed 05/19/2017 Patient Education: Obesity Completed 05/19/2017 Appointment: Injection 04/06/2017 Patient Education: Patient Medication Summary Completed 04/06/2017 Appointment: Giselle Mccoy WPtel: [phone] [place] (15 min) Moderate 02/15/2017 Patient Education: Patient Medication Summary Completed 02/15/2017 Patient Education: Obesity Completed 02/15/2017 Appointment: Injection 01/04/2017 Patient Education: Patient Medication Summary Completed 01/04/2017 Appointment: Injection 12/10/2016 Patient Education: Patient Medication Summary Completed 12/10/2016 Appointment: Giselle Mccoy WPtel: [address] [place], [place] [phone] [place] (15 min) Moderate 11/16/2016 Patient Education: Patient Medication Summary Completed 11/16/2016 Patient Education: Obesity Completed 11/16/2016 Appointment: Injection 10/13/2016 Patient Education: Patient Medication Summary Completed 10/13/2016 Appointment: Injection 09/03/2016 Patient Education: Patient Medication Summary Completed 09/03/2016 Appointment: Giselle Mccoy WPtel: [address] [place], [place] [phone] [place] (15 min) Moderate 08/19/2016 Patient Education: Patient Medication Summary Completed 08/19/2016 Patient Education: Obesity Completed 08/19/2016 Care Plan: Tsh Cancelled 08/19/2016 Care Plan: %Hba1C LOINC : [id number] Cancelled 08/19/2016 Care Plan: Lipid Cancelled 08/19/2016 Care Plan: Free T4 patient coming back next week Cancelled 08/19/2016 Appointment: Injection 07/29/2016 Patient Education: Patient Medication Summary Completed 07/29/2016 Appointment: Giselle Mccoy WPtel: [address] [place], [place] [phone] [place] (30 min) Complex 07/22/2016 App[facility]: [facility] [address] [phone] (30 min) Complex 07/15/2016 Patient Education: Patient Medication Summary Completed 07/15/2016 Patient Education: Obesity Completed 07/15/2016 Appointment: Jennifer Knox WPtel: [phone] (15 min) Moderate 06/03/2016 Patient Education: Patient Medication Summary Completed 06/03/2016 Patient Education: Obesity Completed 06/03/2016 Appointment: Giselle Mccoy WPtel: [address] [place] [phone] (15 min) Moderate 04/22/2016 Patient Education: Patient [...] Hypertension Completed 01/30/2015 Appointment: Jennifer Knox WPtel: [address] [place], [place] [phone] [place] (S) New Patient 01/02/2015 Patient Education: Patient Medication Summary Completed 01/02/2015 Patient Education: Hypertension Completed 01/02/2015 Instructions No Instructions
[2018-06-17] MEDS ORDERED: KETOROLAC 30 MG/ML VIAL IM ONE (11:00)
--- OUTSIDE RECORDS SUMMARY | 2018-06-17 11:00 | XMS REPORT | CCD ---
Author Author [facility] Organization [facility] Address [address] [place] [address] Phone Care Team Providers Care Manager Call Name Role Phone PP Unavailable CCM Unavailable Summary Purpose Interface Exchange Insurance Providers Payer name Policy type / Coverage type Covered alliance party ID Effective Begin Date Effective End Date [facility] Commercial Insurance [id number] Unknown Family history Runs in the family [...] Fill Instructions Tamiflu 75 mg capsule RxNorm: 296518 1 Capsule(s) PO daily 08/1708/26/2017 Active cyanocobalamin (vit B-12) 1,000 mcg/mL injection solution RxNorm: 244220 1 Milliliter(s) Inj 08/17/2017 08/17/2017 Inactive Tamiflu 75 mg capsule RxNorm: 754933 1 Capsule(s) PO daily 08/1708/16/2017 Inactive carvedilol 12.5 mg tablet RxNorm: 710302 TAKE ONE TABLET BY MOUTH TWICE A DAY 08/10/2017 08/04/2018 Active cyanocobalamin (vit B-12) 1,000 mcg/mL injection solution RxNorm: 503759 1 Milliliter(s) Inj 07/19/2017 07/19/2017 Inactive Humulin 70/30 100 unit/mL subcutaneous suspension RxNorm: 139233 14 Unit(s) SQ QA 07/06/2017 No Stop Date Active Lantus Solostar 100 unit/mL (3 mL) subcutaneous insulin pen RxNorm: 829809 26 Unit(s) SQ QHS 07/06/2017 No Stop Date Active losartan 100 mg tablet RxNorm: 863772 TAKE ONE TABLET BY MOUTH DAILY 06/07/2017 04/02/2018 Active Lantus Solostar 100 unit/mL (3 mL) subcutaneous insulin pen RxNorm: 819141 28 Unit(s) SQ QHS 05/19/2017 07/05/2017 Inactive cyanocobalamin (vit B-12) 1,000 mcg/mL injection solution RxNorm: 911062 1 Milliliter(s) Inj 05/19/2017 05/19/2017 Inactive terazosin 2 mg capsule RxNorm: 095591 TAKE ONE CAPSULE BY MOUTH DAILY 05/16/2017 10/12/2017 Active cyanocobalamin (vit B-12) 1,000 mcg/mL injection solution RxNorm: 971648 1 Milliliter(s) Inj 04/06/2017 04/06/2017 Inactive cyanocobalamin (vit B-12) 1,000 mcg/mL injection solution RxNorm: 796480 Milliliter(s) Inj 01/04/2017 01/04/2017 Inactive Humulin 70/30 100 unit/mL subcutaneous suspension RxNorm: 422952 18 Unit(s) SQ QAM 12/22/2016 06/04/2017 Inactive cyanocobalamin (vit B-12) 1,000 mcg/mL injection solution RxNorm: 157019 1 Milliliter(s) Inj 12/10/2016 12/10/2016 Inactive Zithromax Z-Jose 250 mg tablet RxNorm: 469262 1 Tablet(s) PO UD 11/16/2016 11/20/2016 Inactive terazosin 2 mg capsule RxNorm: 036314 TAKE ONE CAPSULE BY MOUTH DAILY 11/08/2016 05/06/2017 Inactive Lantus Solostar 100 unit/mL (3 mL) subcutaneous insulin pen RxNorm: 632886 INJECT 35 UNITS UNDER THE SKIN EVERY NIGHT AT BEDTIME 201607/18/2017 Inactive cyanocobalamin (vit B-12) 1,000 mcg/mL injection solution RxNorm: 010888 Milliliter(s) Inj 10/13/2016 10/13/2016 Inactive cyanocobalamin (vit B-12) 1,000 mcg/mL injection solution RxNorm: 432447 1 Milliliter(s) Inj 09/03/2016 09/03/2016 Inactive Contour Test Strips RxNorm: TEST BLOOD SUGAR TWO TIMES A DAY E11.65 08/19/2016 04/10/2018 Active carvedilol 12.5 mg tablet RxNorm: 137794 TAKE ONE TABLET BY MOUTH TWICE A DAY 08/05/2016 01/01/2017 Inactive carvedilol 12.5 mg tablet RxNorm: 690002 TAKE ONE TABLET BY MOUTH TWICE A DAY 08/05/2016 01/01/2017 Inactive carvedilol 12.5 mg tablet RxNorm: 702265 1 Tablet(s) PO BID 05/201701/30/2017 Inactive cyanocobalamin (vit B-12) 1,000 mcg/mL injection solution RxNorm: 822986 Milliliter(s) Inj 07/29/2016 07/29/2016 Inactive Lantus Solostar 100 unit/mL (3 mL) subcutaneous insulin pen RxNorm: 835043 30 Unit(s) SQ QHS 07/15/2016 05/18/2017 Inactive Humulin 70/30 100 unit/mL subcutaneous suspension RxNorm: 605288 18 Unit(s) SQ QA 07/15/2016 12/21/2016 Inactive losartan 100 mg tablet RxNorm: 082157 TAKE ONE TABLET BY MOUTH DAILY 07/08/2016 06/02/2017 Inactive terazosin 2 mg capsule RxNorm: 144018 TAKE ONE CAPSULE BY MOUTH DAILY 06/10/2016 11/06/2016 Inactive cyanocobalamin (vit B-12) 1,000 mcg/mL injection solution RxNorm: 473971 1 Milliliter(s) Inj 06/03/2016 06/03/2016 Inactive Humulin 70/30 100 unit/mL subcutaneous suspension RxNorm: 577365 Unit(s) INJECT 10 UNITS UNDER THE SKIN 06/01/20162015 Inactive Request already responded to by other means (e.g. phone or fax) Humulin 70/30 100 unit/mL subcutaneous suspension RxNorm: 615420 INJECT 10 UNITS UNDER THE SKIN BEFORE MEALS 06/01/201601/2016 Inactive Request already responded to by other means (e.g. phone or fax) Lantus Solostar 100 unit/mL (3 mL) subcutaneous insulin pen RxNorm: 239899 35 Unit(s) SQ [facility] 05/26/2016 07/14/2016 Inactive Humulin 70/30 100 unit/mL subcutaneous suspension RxNorm: 282769 10 Unit(s) SQ QA 05/24/2016 10/02/2016 Inactive Humulin 70/30 100 unit/mL subcutaneous suspension RxNorm: 496252 21 Unit(s) SQ [facility] 05/24/2016 05/23/2016 Inactive Lantus Solostar 100 unit/mL (3 mL) subcutaneous insulin pen RxNorm: 090831 32 Unit(s) SQ [facility] 04/22/2016 05/25/2016 Inactive Humulin 70/30 100 unit/mL subcutaneous suspension RxNorm: 242558 21 Unit(s) SQ QA 04/22/2016 05/24/2016 Inactive with breakfast hydrochlorothiazide 25 mg tablet RxNorm: 539657 TAKE ONE TABLET BY MOUTH DAILY 02/04/2016 02/16/2016 Inactive terazosin 2 mg capsule RxNorm: 098309 Capsule(s) TAKE ONE CAPSULE BY MOUTH DAILY. 12/01/2015 05/28/2016 Inactive Humulin 70/30 100 unit/mL subcutaneous suspension RxNorm: 526399 INJECT 10 UNITS UNDER THE SKIN BEFORE MEALS 11/06/2015 Inactive hydrochlorothiazide 25 mg tablet RxNorm: 031232 1 Tablet(s) PO daily 10/06/2015 02/02/2016 Inactive cyanocobalamin (vit B-12) 1,000 mcg/mL injection solution RxNorm: 422052 Milliliter(s) Inj 09/15/2015 09/15/2015 Inactive Humulin 70/30 100 unit/mL subcutaneous suspension RxNorm: 370647 INJECT 10 UNITS UNDER THE SKIN BEFORE MEALS 09/08/2015 Inactive cyanocobalamin (vit B-12) 1,000 mcg/mL injection solution RxNorm: 455208 Milliliter(s) Inj 09/08/2015 09/08/2015 Inactive terazosin 2 mg capsule RxNorm: 240713 TAKE ONE CAPSULE BY MOUTH DAILY. DISCONTINUE 5 MG CAPSULES 09/01/201511/28 Inactive cyanocobalamin (vit B-12) 1,000 mcg/mL injection solution RxNorm: 825945 Milliliter(s) Inj 09/01/2015 09/01/2015 Inactive cyanocobalamin (vit B-12) 1,000 mcg/mL injection solution RxNorm: 251978 Milliliter(s) Inj 08/25/2015 08/25/2015 Inactive levothyroxine 112 mcg tablet RxNorm: 787757 1 Tablet(s) PO daily 08/06/2015 02/14/2017 Inactive Lantus Solostar 100 unit/mL (3 mL) subcutaneous insulin pen RxNorm: 493626 35 Unit(s) SQ QHS 08/06/2015 04/21/2016 Inactive Humulin 70/30 100 unit/mL subcutaneous suspension RxNorm: 373511 20 Unit(s) SQ AC 08/05/2015 04/21/2016 Inactive with breakfast carvedilol 12.5 mg tablet RxNorm: 943818 1 Tablet(s) PO BID 06/201601/31/2016 Inactive Humulin 70/30 100 unit/mL subcutaneous suspension RxNorm: 162536 10 Unit(s) SQ AC 07/22/2015 08/04/2015 Inactive losartan 100 mg tablet RxNorm: 885219 TAKE ONE TABLET BY MOUTH DAILY 06/25/2015 06/18/2016 Inactive Lantus Solostar 100 unit/mL (3 mL) subcutaneous insulin pen RxNorm: 146564 30 Unit(s) SQ QHS 06/18/2015 08/05/2015 Inactive terazosin 2 mg capsule RxNorm: 605677 1 Capsule(s) PO daily 08/11/2015 Inactive DC the 5mg order terazosin 2 mg capsule RxNorm: 341091 1 Capsule(s) PO daily 04/13/2015 Inactive Synthroid 25 mcg tablet RxNorm: 540238 1 Tablet(s) PO daily 02/14/2017 Inactive Synthroid 25 mcg tablet RxNorm: 217569 1 Tablet(s) PO daily 04/10/2015 Inactive Lantus Solostar 100 unit/mL (3 mL) subcutaneous insulin pen RxNorm: 279144 30 Unit(s) SQ QHS 04/04/2015 06/17/2015 Inactive terazosin 5 mg tablet RxNorm: 423410 1 Tablet(s) PO daily 201404/13/2015 Inactive Lantus Solostar 100 unit/mL (3 mL) subcutaneous insulin pen RxNorm: 947706 25 Unit(s) SQ QHS 01/08/2015 04/03/2015 Inactive carvedilol 25 mg tablet RxNorm: 671291 1 Tablet(s) PO BID 01/0201/31/2015 Inactive terazosin 5 mg tablet RxNorm: 809713 1 Tablet(s) PO daily 201401/01/2015 Inactive levothyroxine 125 mcg tablet RxNorm: 714312 1 Tablet(s) PO daily 01/02/2015 01/31/2015 Inactive terazosin 5 mg tablet RxNorm: 534656 1/2 Tablet(s) PO daily 05/201501/31/2015 Inactive losartan 100 mg tablet RxNorm: 717311 1 Tablet(s) PO daily 08/201404/22/2015 Inactive losartan 100 mg tablet RxNorm: 655232 1 Tablet(s) PO daily 08/201412/23/2014 Inactive Contour Test Strips RxNorm: Miscellaneous test blood sugars BID 12/06/2014 12/05/2014 Inactive dx 250.00 Contour Test Strips RxNorm: Miscellaneous test blood sugars BID or UD 12/06/2014 06/23/2015 Inactive dx 250.00 [SAVINGS FOR NON-COVERED DRUGS -- BIN:[id number], PCN: [id number], Group: [id number], ID# [id number], Questions: . THIS IS NOT INSURANCE.] folic acid 1 mg tablet RxNorm: 487214 1 Tablet(s) PO QHS No Start Date Active Microlet Lancet RxNorm : Miscellaneous Test BID or Ud No Start Date Active 250.0 aspirin 81 mg tablet,delayed release RxNorm: 866273 1 Tablet(s) PO daily No Start Date Active Stool Softener 100 mg capsule RxNorm: 2576069 1 Capsule(s) PO every other day No Start Date Active levothyroxine 100 mcg tablet RxNorm: 515261 1 Tablet(s) PO daily No Start Date Active folic acid oral RxNorm : 4511 oral No Start Date 05/19/2017 Inactive cyanocobalamin (vit B-12) 100 mcg tablet RxNorm: 635283 1 Tablet(s) PO daily No Start Date 02/14/2017 Inactive hydrochlorothiazide 25 mg tablet RxNorm: 476734 1 Tablet(s) PO daily No Start Date 10/05/2015 Inactive Stool Softener 100 mg capsule RxNorm: 1685820 1 Capsule(s) PO daily No Start Date 05/18/2017 Inactive Humulin 70/30 100 unit/mL subcutaneous suspension RxNorm: 777745 20 Unit(s) SQ QAM No Start Date 07/21/2015 Inactive Lantus Solostar 100 unit/mL (3 mL) subcutaneous insulin pen RxNorm: 730055 20 Unit(s) SQ QHS No Start Date 01/07/2015 Inactive ferrous sulfate 325 mg (65 mg iron) tablet RxNorm: 367867 1 Tablet(s) PO daily No Start Date 05/18/2017 Inactive Medication Administered Medication Codes Instructions Start Date Status cyanocobalamin (vit B-12) 1,000 mcg/mL injection solution RxNorm: 393632 1Milliliter 08/17/2017 Active cyanocobalamin (vit B-12) 1,000 mcg/mL injection solution RxNorm: 438951 1Milliliter 05/19/2017 No longer Active cyanocobalamin (vit B-12) 1,000 mcg/mL injection solution RxNorm: 815440 1Milliliter 04/06/2017 No longer Active cyanocobalamin (vit B-12) 1,000 mcg/mL injection solution RxNorm: 415159 Milliliter 01/04/2017 No longer Active cyanocobalamin (vit B-12) 1,000 mcg/mL injection solution RxNorm: 918032 1Milliliter 12/10/2016 No longer Active cyanocobalamin (vit B-12) 1,000 mcg/mL injection solution RxNorm: 592444 Milliliter 10/13/2016 No longer Active cyanocobalamin (vit B-12) 1,000 mcg/mL injection solution RxNorm: 015527 1Milliliter 09/03/2016 No longer Active cyanocobalamin (vit B-12) 1,000 mcg/mL injection solution RxNorm: 417100 Milliliter 07/29/2016 No longer Active cyanocobalamin (vit B-12) 1,000 mcg/mL injection solution RxNorm: 315029 1Milliliter 06/03/2016 No longer Active cyanocobalamin (vit B-12) 1,000 mcg/mL injection solution RxNorm: 231018 Milliliter 09/15/2015 No longer Active cyanocobalamin (vit B-12) 1,000 mcg/mL injection solution RxNorm: 840981 Milliliter 09/08/2015 No longer Active cyanocobalamin (vit B-12) 1,000 mcg/mL injection solution RxNorm: 221649 Milliliter 09/01/2015 No longer Active cyanocobalamin (vit B-12) 1,000 mcg/mL injection solution RxNorm: 610304 Milliliter 08/25/2015 No longer Active Immunizations Vaccine [...] Dates Notes diabetes mellitus 08/17/2017 diabetes mellitus 05/19/2017 diabetes mellitus 02/15/2017 diabetes [...] 20.4 % 05/19/2017 Cbc With Differential Ord2 [place]% 6.8 % 05/19/2017 Cbc With Differential Ord2 [...] 1.64 K/ul 05/19/2017 Cbc With Differential Ord2 [place] ABS# 0.6 K/ul 05/19/2017 Cbc With Differential Ord2 Eos ABS# 0.2 K/ul 05/19/2017 Cbc With Differential Ord2 Baso ABS# 0.0 K/ul 05/19/2017 B12 Ces474 B12 >1500.00 pg/ml 05/19/2017 Free T4 Czx552 FREE T4 1.10 ng/dL 05/19/2017 %Hba1C Sbt301 % HbA1c 54203-8 6.8 % 05/19/2017 %Hba1C Nrt619 Gluc Ave 148 mg/dL 05/19/2017 Tsh Ord6 hTSH II 1.73 uIU/mL 05/19/2017 Comp Metabolic Ils396 NA 140 mEq/L 05/19/2017 Comp Metabolic Yqr909 K 3.8 mEq/L 05/19/2017 Comp Metabolic Dua250 CL 108 mEq/L 05/19/2017 Comp Metabolic Rbl835 CO2 21.0 mEq/L 05/19/2017 Comp Metabolic Imj193 ANION GAP 15 05/19/2017 Comp Metabolic Rno222 GLUCOSE 207 mg/dL 05/19/2017 Comp Metabolic Dpv172 Creat 1.0 mg/dL 05/19/2017 Comp Metabolic Ses700 eGFR 55 ml/min/1.73m2 05/19/2017 Comp Metabolic Zxy162 BUN 21 mg/dL 05/19/2017 Comp Metabolic Pcg184 B/C Ratio 20.4 Ratio 05/19/2017 Comp Metabolic Cku707 CALCIUM 9.1 mg/dL 05/19/2017 Comp Metabolic Ooh164 ALK PHOS 74 U/L 05/19/2017 Comp Metabolic Nys762 AST(SGOT) 32 U/L 05/19/2017 Comp Metabolic Mwl999 ALT(SGPT) 15 U/L 05/19/2017 Comp Metabolic Dcm931 BILI T 0.6 mg/dL 05/19/2017 Comp Metabolic Ogp927 ALBUMIN 3.9 g/dL 05/19/2017 Comp Metabolic Emm019 TPRO 6.2 g/dL 05/19/2017 Comp Metabolic Iob856 GLOB 2.3 g/dL 05/19/2017 Comp Metabolic Feg336 A/G Ratio 1.6 Ratio 05/19/2017 Comp Metabolic Sbt293 Osmo 288 mOsmo 05/19/2017 Cbc With Differential [...] 29.3 pg 12/10/2016 Cbc With Differential Ord2 [place]% 7.1 % 12/10/2016 Cbc With Differential Ord2 [...] 2.50 K/ul 12/10/2016 Cbc With Differential Ord2 [place] ABS# 0.5 K/ul 12/10/2016 Cbc With Differential Ord2 Eos ABS# 0.1 K/ul 12/10/2016 Cbc With Differential Ord2 Baso ABS# 0.0 K/ul 12/10/2016 B12 Qwr721 B12 222.00 pg/ml 12/10/2016 %Hba1C Kvu156 % HbA1c 71026-2 7.5 % 11/16/2016 %Hba1C Wlm206 Gluc Ave 169 mg/dL 11/16/2016 Free T4 Lpw628 FREE T4 1.03 ng/dL 11/16/2016 Comp Metabolic Smx193 NA 138 mEq/L 11/16/2016 Comp Metabolic Lka817 K 3.8 mEq/L 11/16/2016 Comp Metabolic Vrp034 CL 103 mEq/L 11/16/2016 Comp Metabolic Kef463 CO2 26.0 mEq/L 11/16/2016 Comp Metabolic Bmr563 ANION GAP 13 11/16/2016 Comp Metabolic Jby284 GLUCOSE 235 mg/dL 11/16/2016 Comp Metabolic Twf773 Creat 0.9 mg/dL 11/16/2016 Comp Metabolic Scx216 eGFR 62 ml/min/1.73m2 11/16/2016 Comp Metabolic Qzd367 BUN 20 mg/dL 11/16/2016 Comp Metabolic Wnt475 B/C Ratio 21.7 Ratio 11/16/2016 Comp Metabolic Kme072 CALCIUM 8.9 mg/dL 11/16/2016 Comp Metabolic Rcq659 ALK PHOS 75 U/L 11/16/2016 Comp Metabolic Cyp870 AST(SGOT) 30 U/L 11/16/2016 Comp Metabolic Jhm273 ALT(SGPT) 13 U/L 11/16/2016 Comp Metabolic Whg350 BILI T 0.6 mg/dL 11/16/2016 Comp Metabolic Nqv689 ALBUMIN 3.8 g/dL 11/16/2016 Comp Metabolic Oqr158 TPRO 6.8 g/dL 11/16/2016 Comp Metabolic Sjd918 GLOB 3.1 g/dL 11/16/2016 Comp Metabolic Gpr291 A/G Ratio 1.2 Ratio 11/16/2016 Comp Metabolic Nck231 Osmo 286 mOsmo 11/16/2016 Tsh Ord6 hTSH II 2.50 uIU/mL 11/16/2016 Tsh Ord6 hTSH II 3.18 uIU/mL 05/21/2016 Lipid Ord30 CHOL 212 mg/dL 05/21/2016 Lipid Ord30 HDL 43.0 mg/dl 05/21/2016 Lipid Ord30 TRIG 164 mg/dL 05/21/2016 Lipid Ord30 LDL 136 mg/dL 05/21/2016 Lipid Ord30 C/HDL 4.9 Ratio 05/21/2016 B12 Ord621 B12 159.00 pg/ml 05/21/2016 %Hba1C Kqf262 % HbA1c 09599-5 7.5 % 05/21/2016 %Hba1C Zpj407 Gluc Ave 169 mg/dL 05/21/2016 Folate Ord36 Folate >23.80 ng/mL 05/21/2016 Free T4 Fzo934 FREE T4 1.03 ng/dL 05/21/2016 CHEM 14 3453926 AST 33 U/L 03/15/2016 CHEM 14 8202223 ALT 13 U/L 03/15/2016 CHEM 14 2234378 BUN 18 mg/dL 03/15/2016 CHEM 14 6211365 ALBUMIN 3.9 g/dL 03/15/2016 CHEM 14 8402821 CHLORIDE 105 mmol/L 03/15/2016 CHEM 14 1769649 Bili Total 0.4 mg/dL 03/15/2016 CHEM 14 0161453 ALK PHOS 60 U/L 03/15/2016 CHEM 14 4752034 SODIUM 138 mmol/L 03/15/2016 CHEM 14 3082054 CREATININE 0.99 mg/dL 03/15/2016 CHEM 14 2815703 CALCIUM 9.4 mg/dL 03/15/2016 CHEM 14 1011656 POTASSIUM 3.8 mmol/L 03/15/2016 CHEM 14 3697074 TOTAL PROTEIN 6.7 g/dL 03/15/2016 CHEM 14 0489196 GLUCOSE 109 mg/dL 03/15/2016 CHEM 14 9296271 Bicarbonate 27 mmol/L 03/15/2016 CHEM 14 8328739 AGAP 6 mmol/L 03/15/2016 GFR CALC 1348358 GFR Non Afr Amr 54 mL/min 03/15/2016 GFR CALC 0775016 GFR Afr Amr >60 mL/min 03/15/2016 B12 Iet874 B12 46.00 pg/ml 08/07/2015 Iron Ord72 Iron [...] Ord2 RDW 16.6 % 08/05/2015 Free T4 Krp090 FREE T4 1.33 ng/dL 08/05/2015 Comp Metabolic Myy341 NA 137 mEq/L 08/05/2015 Comp Metabolic Grx506 K 4.5 mEq/L 08/05/2015 Comp Metabolic Oaz892 CL 104 mEq/L 08/05/2015 Comp Metabolic Yjw710 CO2 26.0 mEq/L 08/05/2015 Comp Metabolic Jnv247 ANION GAP 12 08/05/2015 Comp Metabolic Qqb448 GLUCOSE 146 mg/dL 08/05/2015 Comp Metabolic Rvu645 Creat 1.0 mg/dL 08/05/2015 Comp Metabolic Skh199 eGFR 56 ml/min/1.73m2 08/05/2015 Comp Metabolic Pif645 BUN 23 mg/dL 08/05/2015 Comp Metabolic Rjm221 B/C Ratio 22.8 Ratio 08/05/2015 Comp Metabolic Qce842 CALCIUM 9.3 mg/dL 08/05/2015 Comp Metabolic Toj317 ALK PHOS 71 U/L 08/05/2015 Comp Metabolic Wdw947 AST(SGOT) 33 U/L 08/05/2015 Comp Metabolic Skj917 ALT(SGPT) 15 U/L 08/05/2015 Comp Metabolic Pwi943 BILI T 0.6 mg/dL 08/05/2015 Comp Metabolic Drj221 ALBUMIN 3.9 g/dL 08/05/2015 Comp Metabolic Bic379 TPRO 6.5 g/dL 08/05/2015 Comp Metabolic Zmu787 GLOB 2.6 g/dL 08/05/2015 Comp Metabolic Zsm495 A/G Ratio 1.5 Ratio 08/05/2015 Comp Metabolic Aum981 Osmo 280 mOsmo 08/05/2015 Tsh Ord6 hTSH II 0.36 uIU/mL 08/05/2015 %Hba1C Brh522 % HbA1c 38313-1 8.1 % 08/05/2015 %Hba1C Mqf718 Gluc Ave 186 mg/dL 08/05/2015 Free T4 Smo805 FREE T4 0.91 ng/dL 04/11/2015 %Hba1C Wcv744 % HbA1c 60411-8 8.3 % 04/10/2015 %Hba1C Elt714 Gluc Ave 192 mg/dL 04/10/2015 Cbc With [...] Ord2 RDW 15.8 % 04/10/2015 Comp Metabolic Lqf705 NA 134 mEq/L 04/10/2015 Comp Metabolic Pub376 K 4.1 mEq/L 04/10/2015 Comp Metabolic Wpp228 CL 105 mEq/L 04/10/2015 Comp Metabolic Blt092 CO2 26.0 mEq/L 04/10/2015 Comp Metabolic Bpz844 ANION GAP 7 04/10/2015 Comp Metabolic Fwl542 GLUCOSE 126 mg/dL 04/10/2015 Comp Metabolic Zgm667 Creat 1.0 mg/dL 04/10/2015 Comp Metabolic Eeg116 eGFR 58 ml/min/1.73m2 04/10/2015 Comp Metabolic Eck202 BUN 29 mg/dL 04/10/2015 Comp Metabolic Wjm772 B/C Ratio 29.6 Ratio 04/10/2015 Comp Metabolic Wsr154 CALCIUM 9.3 mg/dL 04/10/2015 Comp Metabolic Prp724 ALK PHOS 63 U/L 04/10/2015 Comp Metabolic Ahd109 AST(SGOT) 31 U/L 04/10/2015 Comp Metabolic Dnu412 ALT(SGPT) 14 U/L 04/10/2015 Comp Metabolic Vvu150 BILI T 0.6 mg/dL 04/10/2015 Comp Metabolic Slx860 ALBUMIN 3.9 g/dL 04/10/2015 Comp Metabolic Adp458 TPRO 6.3 g/dL 04/10/2015 Comp Metabolic Fgz574 GLOB 2.4 g/dL 04/10/2015 Comp Metabolic Lus856 A/G Ratio 1.6 Ratio 04/10/2015 Comp Metabolic Ewr461 Osmo 276 mOsmo 04/10/2015 Tsh Ord6 hTSH [...] Procedure Codes Date THER/PROPH/DIAG INJ SC/IM CPT-4: 10285 08/17/2017 VITAMIN B12 INJECTION CPT-4: J3420 08/17/2017 THER/PROPH/DIAG INJ SC/IM CPT-4: 29164 05/19/2017 VITAMIN B12 INJECTION CPT-4: J3420 05/19/2017 THER/PROPH/DIAG INJ SC/IM CPT-4: 06624 04/06/2017 VITAMIN B12 INJECTION CPT-4: J3420 04/06/2017 THER/PROPH/DIAG INJ SC/IM CPT-4: 49849 01/04/2017 VITAMIN B12 INJECTION CPT-4: J3420 01/04/2017 THER/PROPH/DIAG INJ SC/IM CPT-4: 44434 12/10/2016 VITAMIN B12 INJECTION CPT-4: J3420 12/10/2016 THER/PROPH/DIAG INJ SC/IM CPT-4: 73685 10/13/2016 TRIAMCINOLONE ACET INJ NOS CPT-4: J3301 10/13/2016 THER/PROPH/DIAG INJ SC/IM CPT-4: 98926 09/03/2016 VITAMIN B12 INJECTION CPT-4: J3420 09/03/2016 THER/PROPH/DIAG INJ SC/IM CPT-4: 13371 07/29/2016 VITAMIN B12 INJECTION CPT-4: J3420 07/29/2016 THER/PROPH/DIAG INJ SC/IM CPT-4: 84716 06/03/2016 VITAMIN B12 INJECTION CPT-4: J3420 06/03/2016 PNEUMOCOCCAL VACC [address]: 60669630 CPT-4: 00532 04/22/2016 ADMIN PNEUMOCOCCAL VACCINE SNOMED CT: 85313084 CPT-4: G0009 04/22/2016 VITAMIN B12 INJECTION CPT-4: J3420 09/15/2015 THER/PROPH/DIAG INJ SC/IM CPT-4: 00902 09/15/2015 THER/PROPH/DIAG INJ SC/IM CPT-4: 82422 09/08/2015 VITAMIN B12 INJECTION CPT-4: J3420 09/08/2015 THER/PROPH/DIAG INJ SC/IM CPT-4: 16673 09/01/2015 VITAMIN B12 INJECTION CPT-4: J3420 09/01/2015 THER/PROPH/DIAG INJ SC/IM CPT-4: 58838 08/25/2015 VITAMIN B12 INJECTION CPT-4: J3420 08/25/2015 Vital Signs Date Vital 08/17/2017 Blood Pressure 1: 144/70 Code : 8480-6 BMI: 41.8 Code : 67900-3 Heart Rate 1 : 63 bpm Height: 4'11" SpO2: 97% Weight: 207 lbs 05/19/2017 Blood Pressure 1: 148/76 Code : 8480-6 BMI: 42.8 Code : 63636-7 Heart Rate 1 : 72 bpm Height: 4'11" SpO2: 94% Weight: 212 lbs 02/15/2017 Blood Pressure 1: 154/70 Code : 8480-6 BMI: 42.5 Code : 76274-4 Heart Rate 1 : 68 bpm Height: 4'11" SpO2: 97% Weight: 210 lbs 8 oz 11/16/2016 Blood Pressure 1: 142/78 Code : 8480-6 BMI: 41.6 Code : 32144-2 Heart Rate 1 : 68 bpm Height: 4'11" SpO2: 95% Temperature: 36.0 (C) / 96.8 (F) Weight: 206 lbs 08/19/2016 Blood Pressure 1: 120/74 Code : 8480-6 BMI: 41.6 Code : 20361-2 Heart Rate 1 : 75 bpm Height: 4'11" SpO2: 95% Weight: 206 lbs 07/15/2016 Blood Pressure 1: 140/76 Code : 8480-6 BMI: 42.0 Code : 40848-6 Heart Rate 1 : 76 bpm Height: 4'11" SpO2: 96% Weight: 208 lbs 06/03/2016 Blood Pressure 1: 130/78 Code : 8480-6 BMI: 42.8 Code : 77948-1 Heart Rate 1 : 72 bpm Height: 4'11" SpO2: 98% Weight: 212 lbs 04/22/2016 Blood Pressure 1: 142/84 Code : 8480-6 BMI: 41.8 Code : 57540-4 Heart Rate 1 : 86 bpm Height: 4'11" SpO2: 92% Weight: 207 lbs 01/22/2016 Blood Pressure 1: 162/64 Code : 8480-6 BMI: 41.2 Code : 95033-5 Heart Rate 1 : 70 bpm Height: 4'11" SpO2: 97% Weight: 204 lbs 10/23/2015 Blood Pressure 1: 130/70 Code : 8480-6 BMI: 40.4 Code : 70591-5 Heart Rate 1 : 72 bpm Height: 4'11" SpO2: 95% Weight: 200 lbs 09/12/2015 Blood Pressure 1: 142/62 Code : 8480-6 BMI: 39.4 Code : 67474-5 Heart Rate 1 : 63 bpm Height: 4'11" SpO2: 96% Weight: 195 lbs 08/05/2015 Blood Pressure 1: 144/60 Code : 8480-6 BMI: 41.0 Code : 95353-4 Heart Rate 1 : 92 bpm Height: 4'11" SpO2: 90% SpO2: 97% Weight: 203 lbs 04/03/2015 Blood Pressure 1: 142/68 Code : 8480-6 BMI: 40.6 Code : 63133-3 Heart Rate 1 : 77 bpm Height: 4'11" SpO2: 95% Weight: 201 lbs 01/30/2015 Blood Pressure 1: 150/72 Code : 8480-6 BMI: 40.2 Code : 26270-3 Heart Rate 1 : 64 bpm Height: 4'11" Weight: 199 lbs 01/02/2015 Blood Pressure 1: 136/72 Code : 8480-6 BMI: 39.8 Code : 81715-5 Heart Rate 1 : 68 bpm Height: [...] 08/17/2017 None diabetes mellitus Quality insulin dependent 05/19/2017 [...] data Encounters Encounter Performer Location Codes Date 47050 EST. PATIENT, LEVEL IV Diagnosis: Essential (primary) hypertension[ICD10: I10] Diagnosis: Type 2 diabetes mellitus with hyperglycemia[ICD10: E11.65] Diagnosis: Vitamin B12 deficiency anemia due to intrinsic factor deficiency[ ICD10: D51.0] Chasity Knox MD, [facility] CPT-4: 10140 ([id number]) [id number] EST. PATIENT, LEVEL IV Diagnosis: Essential (primary) hypertension[ICD10: I10] Diagnosis: Type 2 diabetes mellitus with hyperglycemia[ICD10: E11.65] Diagnosis: Hypothyroidism, unspecified[ICD10: E03.9] Diagnosis: Vitamin B12 deficiency anemia due to intrinsic factor deficiency[ ICD10: D51.0] Diagnosis: Chronic kidney disease, stage 3 (moderate)[ICD10: N18.3] Giselle Knox MD , [facility] CPT-4: 87222 05/19/2017 ([id number]) 43218 EST. PATIENT, LEVEL IV Diagnosis: Essential (primary) hypertension[ICD10: I10] Diagnosis: Type 2 diabetes mellitus with hyperglycemia[ICD10: E11.65] Diagnosis: Hypothyroidism, unspecified[ICD10: E03.9] Giselle Knox MD, [facility] CPT-4: 39092 02/15/2017 ([id number]) [id number] EST. PATIENT, LEVEL IV Diagnosis: Type 2 diabetes mellitus with hyperglycemia[ICD10: E11.65] Diagnosis: Cough[ICD10: R05] Diagnosis: Acute upper respiratory infection, unspecified[ICD10: J06.9] Diagnosis: Hypothyroidism, unspecified[ICD10: E03.9] Diagnosis: Chronic kidney disease, stage 3 (moderate)[ICD10: N18.3] Giselle Knox MD , [facility] CPT-4: 74585 11/16/2016 ([id number]) [id number] EST. PATIENT, LEVEL IV Diagnosis: Type 2 diabetes mellitus with hyperglycemia[ICD10: E11.65] Diagnosis: Hypothyroidism, unspecified[ICD10: E03.9] Diagnosis: Essential (primary) hypertension[ICD10: I10] Giselle Knox MD, [facility] CPT-4: 65151 08/19/2016 ([id number]) 96912 EST. PATIENT, LEVEL III Diagnosis: Type 2 diabetes mellitus with hyperglycemia[ICD10: E11.65] Giselle Knox MD, [facility] CPT-4: 28891 07/15/2016 ([id number]) 88087 EST. PATIENT, LEVEL IV Diagnosis: Type 2 diabetes mellitus with hyperglycemia[ICD10: E11.65] Diagnosis: Atrophy of thyroid (acquired)[ICD10: E03.4] Diagnosis: Vitamin B12 deficiency anemia due to intrinsic factor deficiency[ ICD10: D51.0] Diagnosis: Chronic kidney disease, stage 3 (moderate)[ICD10: N18.3] Diagnosis: Essential (primary) hypertension[ICD10: I10] Jennifer Knox MD, [facility] CPT-4: 21835 06/03/2016 ([id number]) 06750 EST. PATIENT, LEVEL III Diagnosis: Type 2 diabetes mellitus with hyperglycemia[ICD10: E11.65] Diagnosis: Essential (primary) hypertension[ICD10: I10] Diagnosis: Chronic kidney disease, stage 3 (moderate)[ICD10: N18.3] Diagnosis: VACCIN STREP PNEUMONIAE[ICD10: Z23] Giselle Knox MD, [facility] CPT-4: 82845 04/22/2016 [id number] EST. PATIENT, LEVEL IV Diagnosis: Type 2 diabetes mellitus with hyperglycemia[ICD10: E11.65] Diagnosis: Essential (primary) hypertension[ICD10: I10] Chasity Knox MD, [facility] CPT-4: 58965 01/22/2016 ([id number]) 18948 EST. PATIENT, LEVEL III Diagnosis: Type 2 diabetes mellitus with hyperglycemia[ICD10: E11.65] Diagnosis: Essential (primary) hypertension[ICD10: I10] Giselle Knox MD, [facility] CPT-4: 86687 10/23/2015 [id number] EST. PATIENT, LEVEL IV Diagnosis: Type 2 diabetes mellitus with hyperglycemia[ICD10: E11.65] Diagnosis: Vitamin B12 deficiency anemia due to intrinsic factor deficiency[ ICD10: D51.0] Diagnosis: Essential (primary) hypertension[ICD10: I10] Chasity Knox MD, [facility] CPT-4: 61812 09/12/2015 ([id number]) 67728 EST. PATIENT, LEVEL IV Diagnosis: Essential (primary) hypertension[ICD10: I10] Diagnosis: Type 2 diabetes mellitus with hyperglycemia[ICD10: E11.65] Diagnosis: Hypothyroidism, unspecified[ICD10: E03.9] Giselle Knox MD, [facility] CPT-4: 70767 08/05/2015 ([id number]) 46711 EST. PATIENT, LEVEL III Diagnosis: ESSENTIAL HYPERTENSION[ICD9: 401.9] Diagnosis: DIABETES TYPE II[ICD9: 250.00] Jennifer Knox MD, [facility] CPT- 4: 00915 04/03/2015 ([id number]) 41023 EST. PATIENT, LEVEL IV Diagnosis: ESSENTIAL HYPERTENSION[ICD9: 401.9] Diagnosis: DIABETES TYPE II[ICD9: 250.00] Diagnosis: Hypothyroidism[ICD9: 244.9] Giselle Knox MD, [facility] CPT-4: 32434 01/30/2015 ([id number]) OFFICE VISIT, NEW - LEVEL 4 Diagnosis: ESSENTIAL HYPERTENSION[ICD9: 401.9] Diagnosis: DIABETES TYPE II[ICD9: 250.00] Diagnosis: Impacted cerumen[ICD9: 380.4] Jennifer Knox MD, [facility] CPT- 4: 91011 01/02/2015 Plan of Care Planned Activity Notes Codes Status Date Patient Education: Patient Medication Summary Completed 08/17/2017 [phone] [phone] ([facility] Moderate 07/19/2017 [phone] ([facility]) Moderate 06/13/2017 Appointment: Giselle Mccoy WPtel: [phone] [place] (30 min) Complex 05/19/2017 Patient Education: Patient Medication Summary Completed 05/19/2017 Patient Education: Obesity Completed 05/19/2017 Appointment: Injection 04/06/2017 Patient Education: Patient Medication Summary Completed 04/06/2017 Appointment: Giselle Mccoy WPtel: [phone] [place] (15 min) Moderate 02/15/2017 Patient Education: Patient Medication Summary Completed 02/15/2017 Patient Education: Obesity Completed 02/15/2017 Appointment: Injection 01/04/2017 Patient Education: Patient Medication Summary Completed 01/04/2017 Appointment: Injection 12/10/2016 Patient Education: Patient Medication Summary Completed 12/10/2016 Appointment: Giselle Mccoy WPtel: [phone] [place] (15 min) Moderate 11/16/2016 Patient Education: Patient Medication Summary Completed 11/16/2016 Patient Education: Obesity Completed 11/16/2016 Appointment: Injection 10/13/2016 Patient Education: Patient Medication Summary Completed 10/13/2016 Appointment: Injection 09/03/2016 Patient Education: Patient Medication Summary Completed 09/03/2016 Appointment: [facility]is[facility] Mccoy [facility]el[phone] [place] (15 min) Moderate 08/19/2016 Patient Education: Patient Medication Summary Completed 08/19/2016 Patient Education: Obesity Completed 08/19/2016 Care Plan: Tsh Cancelled 08/19/2016 Care Plan: %Hba1C LOINC : [id number] Cancelled 08/19/2016 Care Plan: Lipid Cancelled 08/19/2016 Care Plan: Free T4 patient coming back next week Cancelled 08/19/2016 Appointment: Injection 07/29/2016 Patient Education: Patient Medication Summary Completed 07/29/2016 [facility] [phone] [phone] (30 min) Complex 07/22/2016 Appointment: Giselle Mccoy WPtel: [phone] [phone] [place] (30 min) Complex 07/15/2016 Patient Education: Patient Medication Summary Completed 07/15/2016 Patient Education: Obesity Completed 07/15/2016 [facility]ment: [facility] [phone] [facility] [place] (15 min) Moderate 06/03/2016 Patient Education: Patient Medication Summary Completed 06/03/2016 Patient Education: Obesity Completed 06/03/2016 App[facility]ment: [facility] [phone] [phone] [place] (15 min) Moderate 04/22/2016 Patient Education: Patient [...] Completed 01/30/2015 App[facility]ment: [facility] [phone] [facility] [place] ([place] New Patient 01/02/2015 Patient Education: Patient Medication Summary Completed 01/02/2015 Patient Education: Hypertension Completed 01/02/2015 Instructions No Instructions
--- OUTSIDE RECORDS SUMMARY | 2018-06-17 11:03 | XMS REPORT | CCD ---
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 Role Phone PP Unavailable CCM Unavailable Summary Purpose Interface Exchange Insurance Providers Payer name Policy type / Coverage type Covered green party ID Effective Begin Date Effective End Date [facility] Commercial Insurance [id number] Unknown Family history Runs in the family [...] Fill Instructions Tamiflu 75 mg capsule RxNorm: 490741 1 Capsule(s) PO daily 08/1708/26/2017 Active Tamiflu 75 mg capsule RxNorm: 941852 1 Capsule(s) PO daily 08/1708/16/2017 Inactive carvedilol 12.5 mg tablet RxNorm: 066508 TAKE ONE TABLET BY MOUTH TWICE A DAY 08/10/2017 08/04/2018 Active cyanocobalamin (vit B-12) 1,000 mcg/mL injection solution RxNorm: 938267 1 Milliliter(s) Inj 07/19/2017 07/19/2017 Inactive Humulin 70/30 100 unit/mL subcutaneous suspension RxNorm: 332490 14 Unit(s) SQ QAM 07/06/2017 No Stop Date Active Lantus Solostar 100 unit/mL (3 mL) subcutaneous insulin pen RxNorm: 126214 26 Unit(s) SQ QHS 07/06/2017 No Stop Date Active losartan 100 mg tablet RxNorm: 595717 TAKE ONE TABLET BY MOUTH DAILY 06/07/2017 04/02/2018 Active Lantus Solostar 100 unit/mL (3 mL) subcutaneous insulin pen RxNorm: 043250 28 Unit(s) SQ QHS 05/19/2017 07/05/2017 Inactive cyanocobalamin (vit B-12) 1,000 mcg/mL injection solution RxNorm: 478212 1 Milliliter(s) Inj 05/19/2017 05/19/2017 Inactive terazosin 2 mg capsule RxNorm: 022533 TAKE ONE CAPSULE BY MOUTH DAILY 05/16/2017 10/12/2017 Active cyanocobalamin (vit B-12) 1,000 mcg/mL injection solution RxNorm: 794778 1 Milliliter(s) Inj 04/06/2017 04/06/2017 Inactive cyanocobalamin (vit B-12) 1,000 mcg/mL injection solution RxNorm: 210063 Milliliter(s) Inj 01/04/2017 01/04/2017 Inactive Humulin 70/30 100 unit/mL subcutaneous suspension RxNorm: 327417 18 Unit(s) SQ QAM 12/22/2016 06/04/2017 Inactive cyanocobalamin (vit B-12) 1,000 mcg/mL injection solution RxNorm: 726385 1 Milliliter(s) Inj 12/10/2016 12/10/2016 Inactive Zithromax Z-Jose 250 mg tablet RxNorm: 271539 1 Tablet(s) PO UD 11/16/2016 11/20/2016 Inactive terazosin 2 mg capsule RxNorm: 831818 TAKE ONE CAPSULE BY MOUTH DAILY 11/08/2016 05/06/2017 Inactive Lantus Solostar 100 unit/mL (3 mL) subcutaneous insulin pen RxNorm: 854464 INJECT 35 UNITS UNDER THE SKIN EVERY NIGHT AT BEDTIME 201607/18/2017 Inactive cyanocobalamin (vit B-12) 1,000 mcg/mL injection solution RxNorm: 384149 Milliliter(s) Inj 10/13/2016 10/13/2016 Inactive cyanocobalamin (vit B-12) 1,000 mcg/mL injection solution RxNorm: 972324 1 Milliliter(s) Inj 09/03/2016 09/03/2016 Inactive Contour Test Strips RxNorm: TEST BLOOD SUGAR TWO TIMES A DAY E11.65 08/19/2016 04/10/2018 Active carvedilol 12.5 mg tablet RxNorm: 572159 TAKE ONE TABLET BY MOUTH TWICE A DAY 08/05/2016 01/01/2017 Inactive carvedilol 12.5 mg tablet RxNorm: 891746 TAKE ONE TABLET BY MOUTH TWICE A DAY 08/05/2016 01/01/2017 Inactive carvedilol 12.5 mg tablet RxNorm: 887305 1 Tablet(s) PO BID 05/201701/30/2017 Inactive cyanocobalamin (vit B-12) 1,000 mcg/mL injection solution RxNorm: 245993 Milliliter(s) Inj 07/29/2016 07/29/2016 Inactive Lantus Solostar 100 unit/mL (3 mL) subcutaneous insulin pen RxNorm: 563254 30 Unit(s) SQ QHS 07/15/2016 05/18/2017 Inactive Humulin 70/30 100 unit/mL subcutaneous suspension RxNorm: 678669 18 Unit(s) SQ QAM 07/15/2016 12/21/2016 Inactive losartan 100 mg tablet RxNorm: 139978 TAKE ONE TABLET BY MOUTH DAILY 07/08/2016 06/02/2017 Inactive terazosin 2 mg capsule RxNorm: 202938 TAKE ONE CAPSULE BY MOUTH DAILY 06/10/2016 11/06/2016 Inactive cyanocobalamin (vit B-12) 1,000 mcg/mL injection solution RxNorm: 720965 1 Milliliter(s) Inj 06/03/2016 06/03/2016 Inactive Humulin 70/30 100 unit/mL subcutaneous suspension RxNorm: 187677 Unit(s) INJECT 10 UNITS UNDER THE SKIN 06/01/20162015 Inactive Request already responded to by other means (e.g. phone or fax) Humulin 70/30 100 unit/mL subcutaneous suspension RxNorm: 054426 INJECT 10 UNITS UNDER THE SKIN BEFORE MEALS 06/01/201601/2016 Inactive Request already responded to by other means (e.g. phone or fax) Lantus Solostar 100 unit/mL (3 mL) subcutaneous insulin pen RxNorm: 520369 35 Unit(s) SQ [facility] 05/26/2016 07/14/2016 Inactive Humulin 70/30 100 unit/mL subcutaneous suspension RxNorm: 594186 10 Unit(s) SQ QA 05/24/2016 10/02/2016 Inactive Humulin 70/30 100 unit/mL subcutaneous suspension RxNorm: 850466 21 Unit(s) SQ QA 05/24/2016 05/23/2016 Inactive Lantus Solostar 100 unit/mL (3 mL) subcutaneous insulin pen RxNorm: 727484 32 Unit(s) SQ [facility] 04/22/2016 05/25/2016 Inactive Humulin 70/30 100 unit/mL subcutaneous suspension RxNorm: 464757 21 Unit(s) SQ [facility] 04/22/2016 05/24/2016 Inactive with breakfast hydrochlorothiazide 25 mg tablet RxNorm: 717247 TAKE ONE TABLET BY MOUTH DAILY 02/04/2016 02/16/2016 Inactive terazosin 2 mg capsule RxNorm: 190916 Capsule(s) TAKE ONE CAPSULE BY MOUTH DAILY. 12/01/2015 05/28/2016 Inactive Humulin 70/30 100 unit/mL subcutaneous suspension RxNorm: 020941 INJECT 10 UNITS UNDER THE SKIN BEFORE MEALS 11/06/2015 Inactive hydrochlorothiazide 25 mg tablet RxNorm: 594272 1 Tablet(s) PO daily 10/06/2015 02/02/2016 Inactive cyanocobalamin (vit B-12) 1,000 mcg/mL injection solution RxNorm: 925847 Milliliter(s) Inj 09/15/2015 09/15/2015 Inactive Humulin 70/30 100 unit/mL subcutaneous suspension RxNorm: 494275 INJECT 10 UNITS UNDER THE SKIN BEFORE MEALS 09/08/2015 Inactive cyanocobalamin (vit B-12) 1,000 mcg/mL injection solution RxNorm: 491750 Milliliter(s) Inj 09/08/2015 09/08/2015 Inactive terazosin 2 mg capsule RxNorm: 616804 TAKE ONE CAPSULE BY MOUTH DAILY. DISCONTINUE 5 MG CAPSULES 09/01/201511/28 Inactive cyanocobalamin (vit B-12) 1,000 mcg/mL injection solution RxNorm: 359409 Milliliter(s) Inj 09/01/2015 09/01/2015 Inactive cyanocobalamin (vit B-12) 1,000 mcg/mL injection solution RxNorm: 439807 Milliliter(s) Inj 08/25/2015 08/25/2015 Inactive levothyroxine 112 mcg tablet RxNorm: 301382 1 Tablet(s) PO daily 08/06/2015 02/14/2017 Inactive Lantus Solostar 100 unit/mL (3 mL) subcutaneous insulin pen RxNorm: 819571 35 Unit(s) SQ QHS 08/06/2015 04/21/2016 Inactive Humulin 70/30 100 unit/mL subcutaneous suspension RxNorm: 460112 20 Unit(s) SQ AC 08/05/2015 04/21/2016 Inactive with breakfast carvedilol 12.5 mg tablet RxNorm: 614559 1 Tablet(s) PO BID 06/201601/31/2016 Inactive Humulin 70/30 100 unit/mL subcutaneous suspension RxNorm: 292493 10 Unit(s) SQ AC 07/22/2015 08/04/2015 Inactive losartan 100 mg tablet RxNorm: 759541 TAKE ONE TABLET BY MOUTH DAILY 06/25/2015 06/18/2016 Inactive Lantus Solostar 100 unit/mL (3 mL) subcutaneous insulin pen RxNorm: 283210 30 Unit(s) SQ QHS 06/18/2015 08/05/2015 Inactive terazosin 2 mg capsule RxNorm: 313104 1 Capsule(s) PO daily 08/11/2015 Inactive DC the 5mg order terazosin 2 mg capsule RxNorm: 520060 1 Capsule(s) PO daily 04/13/2015 Inactive Synthroid 25 mcg tablet RxNorm: 778507 1 Tablet(s) PO daily 02/14/2017 Inactive Synthroid 25 mcg tablet RxNorm: 830640 1 Tablet(s) PO daily 04/10/2015 Inactive Lantus Solostar 100 unit/mL (3 mL) subcutaneous insulin pen RxNorm: 902673 30 Unit(s) SQ QHS 04/04/2015 06/17/2015 Inactive terazosin 5 mg tablet RxNorm: 061234 1 Tablet(s) PO daily 201404/13/2015 Inactive Lantus Solostar 100 unit/mL (3 mL) subcutaneous insulin pen RxNorm: 945911 25 Unit(s) SQ QHS 01/08/2015 04/03/2015 Inactive carvedilol 25 mg tablet RxNorm: 644998 1 Tablet(s) PO BID 01/0201/31/2015 Inactive terazosin 5 mg tablet RxNorm: 507453 1 Tablet(s) PO daily 201401/01/2015 Inactive levothyroxine 125 mcg tablet RxNorm: 394858 1 Tablet(s) PO daily 01/02/2015 01/31/2015 Inactive terazosin 5 mg tablet RxNorm: 766846 1/2 Tablet(s) PO daily 05/201501/31/2015 Inactive losartan 100 mg tablet RxNorm: 756789 1 Tablet(s) PO daily 08/201404/22/2015 Inactive losartan 100 mg tablet RxNorm: 499047 1 Tablet(s) PO daily 08/201412/23/2014 Inactive Contour Test Strips RxNorm: Miscellaneous test blood sugars BID 12/06/2014 12/05/2014 Inactive dx 250.00 Contour Test Strips RxNorm: Miscellaneous test blood sugars BID or UD 12/06/2014 06/23/2015 Inactive dx 250.00 [SAVINGS FOR NON-COVERED DRUGS -- BIN:[id number], PCN: [id number], Group: [id number], ID# [id number], Questions: . THIS IS NOT INSURANCE.] folic acid 1 mg tablet RxNorm: 222937 1 Tablet(s) PO QHS No Start Date Active Microlet Lancet RxNorm : Miscellaneous Test BID or Ud No Start Date Active 250.0 aspirin 81 mg tablet,delayed release RxNorm: 498245 1 Tablet(s) PO daily No Start Date Active Stool Softener 100 mg capsule RxNorm: 7978833 1 Capsule(s) PO every other day No Start Date Active levothyroxine 100 mcg tablet RxNorm: 631889 1 Tablet(s) PO daily No Start Date Active folic acid oral RxNorm : 4511 oral No Start Date 05/19/2017 Inactive cyanocobalamin (vit B-12) 100 mcg tablet RxNorm: 270982 1 Tablet(s) PO daily No Start Date 02/14/2017 Inactive hydrochlorothiazide 25 mg tablet RxNorm: 919194 1 Tablet(s) PO daily No Start Date 10/05/2015 Inactive Stool Softener 100 mg capsule RxNorm: 6645969 1 Capsule(s) PO daily No Start Date 05/18/2017 Inactive Humulin 70/30 100 unit/mL subcutaneous suspension RxNorm: 944287 20 Unit(s) SQ QAM No Start Date 07/21/2015 Inactive Lantus Solostar 100 unit/mL (3 mL) subcutaneous insulin pen RxNorm: 605284 20 Unit(s) SQ QHS No Start Date 01/07/2015 Inactive ferrous sulfate 325 mg (65 mg iron) tablet RxNorm: 063766 1 Tablet(s) PO daily No Start Date 05/18/2017 Inactive Medication Administered Medication Codes Instructions Start Date Status cyanocobalamin (vit B-12) 1,000 mcg/mL injection solution RxNorm: 524490 1Milliliter 05/19/2017 No longer Active cyanocobalamin (vit B-12) 1,000 mcg/mL injection solution RxNorm: 571543 1Milliliter 04/06/2017 No longer Active cyanocobalamin (vit B-12) 1,000 mcg/mL injection solution RxNorm: 095381 Milliliter 01/04/2017 No longer Active cyanocobalamin (vit B-12) 1,000 mcg/mL injection solution RxNorm: 081297 1Milliliter 12/10/2016 No longer Active cyanocobalamin (vit B-12) 1,000 mcg/mL injection solution RxNorm: 764255 Milliliter 10/13/2016 No longer Active cyanocobalamin (vit B-12) 1,000 mcg/mL injection solution RxNorm: 532940 1Milliliter 09/03/2016 No longer Active cyanocobalamin (vit B-12) 1,000 mcg/mL injection solution RxNorm: 320185 Milliliter 07/29/2016 No longer Active cyanocobalamin (vit B-12) 1,000 mcg/mL injection solution RxNorm: 551815 1Milliliter 06/03/2016 No longer Active cyanocobalamin (vit B-12) 1,000 mcg/mL injection solution RxNorm: 740860 Milliliter 09/15/2015 No longer Active cyanocobalamin (vit B-12) 1,000 mcg/mL injection solution RxNorm: 336623 Milliliter 09/08/2015 No longer Active cyanocobalamin (vit B-12) 1,000 mcg/mL injection solution RxNorm: 128372 Milliliter 09/01/2015 No longer Active cyanocobalamin (vit B-12) 1,000 mcg/mL injection solution RxNorm: 244888 Milliliter 08/25/2015 No longer Active Immunizations Vaccine Codes Date Status Influenza CVX: 141 05/18/2017 completed Pneumococcal (Adult) CVX: 133 04/22/2016 completed Influenza CVX: 141 05/07/2015 completed Assessments Condition Codes Effective Dates Essential (primary) hypertension ICD-10: I10 ICD-9: 401.9 05/19/2017 Vitamin B12 deficiency anemia due to intrinsic factor deficiency ICD-10: D51.0 ICD-9: 281.0 05/19/2017 Hypothyroidism, unspecified ICD-10: E03.9 ICD-9: 244.9 05/19/2017 Type 2 diabetes mellitus with hyperglycemia ICD-10: E11.65 ICD-9: 250.00 05/19/2017 Chronic kidney disease, stage 3 (moderate) [...] For Visit Effective Dates Notes diabetes mellitus 05/19/2017 diabetes mellitus 02/15/2017 diabetes [...] 30.3 pg 05/19/2017 Cbc With Differential Ord2 [place]ata[place]% 6.8 % 05/19/2017 Cbc With Differential Ord2 MCHC 32.3 pg 05/19/2017 Cbc With Differential Ord2 Eos% 1.9 % 05/19/2017 Cbc With Differential Ord2 Baso% 0.1 % 05/19/2017 Cbc With Differential Ord2 PLT 174 K/ul 05/19/2017 Cbc With Differential Ord2 RDW 14.0 % 05/19/2017 Cbc With Differential Ord2 Neut ABS# 5.69 K/ul 05/19/2017 Cbc With Differential Ord2 Lymph ABS# 1.64 K/ul 05/19/2017 Cbc With Differential Ord2 [place]ata[place] ABS# 0.6 K/ul 05/19/2017 Cbc With Differential Ord2 Eos ABS# 0.2 K/ul 05/19/2017 Cbc With Differential Ord2 Baso ABS# 0.0 K/ul 05/19/2017 B12 Rtq196 B12 >1500.00 pg/ml 05/19/2017 Free T4 Lhp803 FREE T4 1.10 ng/dL 05/19/2017 %Hba1C Rvd387 % HbA1c 02962-8 6.8 % 05/19/2017 %Hba1C Wbs815 Gluc Ave 148 mg/dL 05/19/2017 Tsh Ord6 hTSH II 1.73 uIU/mL 05/19/2017 Comp Metabolic Bfa355 NA 140 mEq/L 05/19/2017 Comp Metabolic Llg036 K 3.8 mEq/L 05/19/2017 Comp Metabolic Ndc135 CL 108 mEq/L 05/19/2017 Comp Metabolic Lix488 CO2 21.0 mEq/L 05/19/2017 Comp Metabolic Ozn944 ANION GAP 15 05/19/2017 Comp Metabolic Utu332 GLUCOSE 207 mg/dL 05/19/2017 Comp Metabolic Rnx280 Creat 1.0 mg/dL 05/19/2017 Comp Metabolic Xqa712 eGFR 55 ml/min/1.73m2 05/19/2017 Comp Metabolic Ail786 BUN 21 mg/dL 05/19/2017 Comp Metabolic Wyh350 B/C Ratio 20.4 Ratio 05/19/2017 Comp Metabolic Isx855 CALCIUM 9.1 mg/dL 05/19/2017 Comp Metabolic Hoa606 ALK PHOS 74 U/L 05/19/2017 Comp Metabolic Yba619 AST(SGOT) 32 U/L 05/19/2017 Comp Metabolic Ytu854 ALT(SGPT) 15 U/L 05/19/2017 Comp Metabolic Jdx574 BILI T 0.6 mg/dL 05/19/2017 Comp Metabolic Ujb662 ALBUMIN 3.9 g/dL 05/19/2017 Comp Metabolic Jud370 TPRO 6.2 g/dL 05/19/2017 Comp Metabolic Xgm764 GLOB 2.3 g/dL 05/19/2017 Comp Metabolic Rjo594 A/G Ratio 1.6 Ratio 05/19/2017 Comp Metabolic Dgh201 Osmo 288 mOsmo 05/19/2017 Cbc With Differential [...] Ord2 Baso ABS# 0.0 K/ul 12/10/2016 B12 Hcg925 B12 222.00 pg/ml 12/10/2016 %Hba1C Bix492 % HbA1c 32874-5 7.5 % 11/16/2016 %Hba1C Bwd324 Gluc Ave 169 mg/dL 11/16/2016 Free T4 Jrm589 FREE T4 1.03 ng/dL 11/16/2016 Comp Metabolic Ttt709 NA 138 mEq/L 11/16/2016 Comp Metabolic Iaw641 K 3.8 mEq/L 11/16/2016 Comp Metabolic Lsy429 CL 103 mEq/L 11/16/2016 Comp Metabolic Vyq351 CO2 26.0 mEq/L 11/16/2016 Comp Metabolic Oyq882 ANION GAP 13 11/16/2016 Comp Metabolic Bpr522 GLUCOSE 235 mg/dL 11/16/2016 Comp Metabolic Wad322 Creat 0.9 mg/dL 11/16/2016 Comp Metabolic Cna153 eGFR 62 ml/min/1.73m2 11/16/2016 Comp Metabolic Lxc364 BUN 20 mg/dL 11/16/2016 Comp Metabolic Gth500 B/C Ratio 21.7 Ratio 11/16/2016 Comp Metabolic Qii629 CALCIUM 8.9 mg/dL 11/16/2016 Comp Metabolic Ncj821 ALK PHOS 75 U/L 11/16/2016 Comp Metabolic Zld453 AST(SGOT) 30 U/L 11/16/2016 Comp Metabolic Jmc620 ALT(SGPT) 13 U/L 11/16/2016 Comp Metabolic Jph017 BILI T 0.6 mg/dL 11/16/2016 Comp Metabolic Thi825 ALBUMIN 3.8 g/dL 11/16/2016 Comp Metabolic Pvv857 TPRO 6.8 g/dL 11/16/2016 Comp Metabolic Qri315 GLOB 3.1 g/dL 11/16/2016 Comp Metabolic Gxc561 A/G Ratio 1.2 Ratio 11/16/2016 Comp Metabolic Qac429 Osmo 286 mOsmo 11/16/2016 Tsh Ord6 hTSH II 2.50 uIU/mL 11/16/2016 Tsh Ord6 hTSH II 3.18 uIU/mL 05/21/2016 Lipid Ord30 CHOL 212 mg/dL 05/21/2016 Lipid Ord30 HDL 43.0 mg/dl 05/21/2016 Lipid Ord30 TRIG 164 mg/dL 05/21/2016 Lipid Ord30 LDL 136 mg/dL 05/21/2016 Lipid Ord30 C/HDL 4.9 Ratio 05/21/2016 B12 Wyz298 B12 159.00 pg/ml 05/21/2016 %Hba1C Rpy594 % HbA1c 09012-8 7.5 % 05/21/2016 %Hba1C Cft916 Gluc Ave 169 mg/dL 05/21/2016 Folate Ord36 Folate >23.80 ng/mL 05/21/2016 Free T4 Xdq090 FREE T4 1.03 ng/dL 05/21/2016 CHEM 14 20280127 AST 33 U/L 03/15/2016 CHEM 14 20280127 ALT 13 U/L 03/15/2016 CHEM 14 20280127 BUN 18 mg/dL 03/15/2016 CHEM 14 20280127 ALBUMIN 3.9 g/dL 03/15/2016 CHEM 14 8997392 CHLORIDE 105 mmol/L 03/15/2016 CHEM 14 4274238 Bili Total 0.4 mg/dL 03/15/2016 CHEM 14 5108845 ALK PHOS 60 U/L 03/15/2016 CHEM 14 7159223 SODIUM 138 mmol/L 03/15/2016 CHEM 14 6003526 CREATININE 0.99 mg/dL 03/15/2016 CHEM 14 5788049 CALCIUM 9.4 mg/dL 03/15/2016 CHEM 14 9807803 POTASSIUM 3.8 mmol/L 03/15/2016 CHEM 14 5952982 TOTAL PROTEIN 6.7 g/dL 03/15/2016 CHEM 14 9948333 GLUCOSE 109 mg/dL 03/15/2016 CHEM 14 7951693 Bicarbonate 27 mmol/L 03/15/2016 CHEM 14 7504143 AGAP 6 mmol/L 03/15/2016 GFR CALC 2997427 GFR Non Afr Amr 54 mL/min 03/15/2016 GFR CALC 9974411 GFR Afr Amr >60 mL/min 03/15/2016 B12 Cda868 B12 46.00 pg/ml 08/07/2015 Iron Ord72 Iron [...] Ord2 RDW 16.6 % 08/05/2015 Free T4 Zvk938 FREE T4 1.33 ng/dL 08/05/2015 Comp Metabolic Wwq655 NA 137 mEq/L 08/05/2015 Comp Metabolic Ccb957 K 4.5 mEq/L 08/05/2015 Comp Metabolic Frs037 CL 104 mEq/L 08/05/2015 Comp Metabolic Jsy952 CO2 26.0 mEq/L 08/05/2015 Comp Metabolic Zlj207 ANION GAP 12 08/05/2015 Comp Metabolic Cnc161 GLUCOSE 146 mg/dL 08/05/2015 Comp Metabolic Mkb370 Creat 1.0 mg/dL 08/05/2015 Comp Metabolic Crf889 eGFR 56 ml/min/1.73m2 08/05/2015 Comp Metabolic Onq397 BUN 23 mg/dL 08/05/2015 Comp Metabolic Gwv707 B/C Ratio 22.8 Ratio 08/05/2015 Comp Metabolic Gwh478 CALCIUM 9.3 mg/dL 08/05/2015 Comp Metabolic Crs135 ALK PHOS 71 U/L 08/05/2015 Comp Metabolic Qmz650 AST(SGOT) 33 U/L 08/05/2015 Comp Metabolic Aeh547 ALT(SGPT) 15 U/L 08/05/2015 Comp Metabolic Ssx863 BILI T 0.6 mg/dL 08/05/2015 Comp Metabolic Mag435 ALBUMIN 3.9 g/dL 08/05/2015 Comp Metabolic Pvy788 TPRO 6.5 g/dL 08/05/2015 Comp Metabolic Hgw636 GLOB 2.6 g/dL 08/05/2015 Comp Metabolic Ejx262 A/G Ratio 1.5 Ratio 08/05/2015 Comp Metabolic Lzq149 Osmo 280 mOsmo 08/05/2015 Tsh Ord6 hTSH II 0.36 uIU/mL 08/05/2015 %Hba1C Fif352 % HbA1c 24596-8 8.1 % 08/05/2015 %Hba1C Mjz169 Gluc Ave 186 mg/dL 08/05/2015 Free T4 Wkp799 FREE T4 0.91 ng/dL 04/11/2015 %Hba1C Mge633 % HbA1c 56168-1 8.3 % 04/10/2015 %Hba1C Bcj483 Gluc Ave 192 mg/dL 04/10/2015 Cbc With [...] Ord2 RDW 15.8 % 04/10/2015 Comp Metabolic Cae363 NA 134 mEq/L 04/10/2015 Comp Metabolic Jbb280 K 4.1 mEq/L 04/10/2015 Comp Metabolic Dns049 CL 105 mEq/L 04/10/2015 Comp Metabolic Rsh410 CO2 26.0 mEq/L 04/10/2015 Comp Metabolic Bbm613 ANION GAP 7 04/10/2015 Comp Metabolic Afc083 GLUCOSE 126 mg/dL 04/10/2015 Comp Metabolic Shx865 Creat 1.0 mg/dL 04/10/2015 Comp Metabolic Ivy205 eGFR 58 ml/min/1.73m2 04/10/2015 Comp Metabolic Yax053 BUN 29 mg/dL 04/10/2015 Comp Metabolic Rzz998 B/C Ratio 29.6 Ratio 04/10/2015 Comp Metabolic Sjb506 CALCIUM 9.3 mg/dL 04/10/2015 Comp Metabolic Otn681 ALK PHOS 63 U/L 04/10/2015 Comp Metabolic Ztz201 AST(SGOT) 31 U/L 04/10/2015 Comp Metabolic Qek078 ALT(SGPT) 14 U/L 04/10/2015 Comp Metabolic Vjw110 BILI T 0.6 mg/dL 04/10/2015 Comp Metabolic Qcp557 ALBUMIN 3.9 g/dL 04/10/2015 Comp Metabolic Vfr841 TPRO 6.3 g/dL 04/10/2015 Comp Metabolic Hpq147 GLOB 2.4 g/dL 04/10/2015 Comp Metabolic Ixk724 A/G Ratio 1.6 Ratio 04/10/2015 Comp Metabolic Vhr499 Osmo 276 mOsmo 04/10/2015 Tsh Ord6 hTSH II 6.71 uIU/mL 04/10/2015 Review of Systems System Result Effective Dates Constitutional No recent illness 2016 Constitutional No [...] Procedure Codes Date THER/PROPH/DIAG INJ SC/IM CPT-4: 04455 05/19/2017 VITAMIN B12 INJECTION CPT-4: J3420 05/19/2017 THER/PROPH/DIAG INJ SC/IM CPT-4: 96131 04/06/2017 VITAMIN B12 INJECTION CPT-4: J3420 04/06/2017 THER/PROPH/DIAG INJ SC/IM CPT-4: 94613 01/04/2017 VITAMIN B12 INJECTION CPT-4: J3420 01/04/2017 THER/PROPH/DIAG INJ SC/IM CPT-4: 16168 12/10/2016 VITAMIN B12 INJECTION CPT-4: J3420 12/10/2016 THER/PROPH/DIAG INJ SC/IM CPT-4: 60980 10/13/2016 TRIAMCINOLONE ACET INJ NOS CPT-4: J3301 10/13/2016 THER/PROPH/DIAG INJ SC/IM CPT-4: 44356 09/03/2016 VITAMIN B12 INJECTION CPT-4: J3420 09/03/2016 THER/PROPH/DIAG INJ SC/IM CPT-4: 59374 07/29/2016 VITAMIN B12 INJECTION CPT-4: J3420 07/29/2016 THER/PROPH/DIAG INJ SC/IM CPT-4: 48144 06/03/2016 VITAMIN B12 INJECTION CPT-4: J3420 06/03/2016 PNEUMOCOCCAL VACC [address]: 96117754 CPT-4: 92849 04/22/2016 ADMIN PNEUMOCOCCAL VACCINE SNOMED CT: 50872004 CPT-4: G0009 04/22/2016 VITAMIN B12 INJECTION CPT-4: J3420 09/15/2015 THER/PROPH/DIAG INJ SC/IM CPT-4: 33238 09/15/2015 THER/PROPH/DIAG INJ SC/IM CPT-4: 16881 09/08/2015 VITAMIN B12 INJECTION CPT-4: J3420 09/08/2015 THER/PROPH/DIAG INJ SC/IM CPT-4: 87160 09/01/2015 VITAMIN B12 INJECTION CPT-4: J3420 09/01/2015 THER/PROPH/DIAG INJ SC/IM CPT-4: 32063 08/25/2015 VITAMIN B12 INJECTION CPT-4: J3420 08/25/2015 Vital Signs Date Vital 05/19/2017 Blood Pressure 1: 148/76 Code : 8480-6 BMI: 42.8 Code : 23901-7 Heart Rate 1 : 72 bpm Height: 4'11" SpO2: 94% Weight: 212 lbs 02/15/2017 Blood Pressure 1: 154/70 Code : 8480-6 BMI: 42.5 Code : 48350-7 Heart Rate 1 : 68 bpm Height: 4'11" SpO2: 97% Weight: 210 lbs 8 oz 11/16/2016 Blood Pressure 1: 142/78 Code : 8480-6 BMI: 41.6 Code : 34585-5 Heart Rate 1 : 68 bpm Height: 4'11" SpO2: 95% Temperature: 36.0 (C) / 96.8 (F) Weight: 206 lbs 08/19/2016 Blood Pressure 1: 120/74 Code : 8480-6 BMI: 41.6 Code : 80064-1 Heart Rate 1 : 75 bpm Height: 4'11" SpO2: 95% Weight: 206 lbs 07/15/2016 Blood Pressure 1: 140/76 Code : 8480-6 BMI: 42.0 Code : 62644-0 Heart Rate 1 : 76 bpm Height: 4'11" SpO2: 96% Weight: 208 lbs 06/03/2016 Blood Pressure 1: 130/78 Code : 8480-6 BMI: 42.8 Code : 91059-1 Heart Rate 1 : 72 bpm Height: 4'11" SpO2: 98% Weight: 212 lbs 04/22/2016 Blood Pressure 1: 142/84 Code : 8480-6 BMI: 41.8 Code : 55794-9 Heart Rate 1 : 86 bpm Height: 4'11" SpO2: 92% Weight: 207 lbs 01/22/2016 Blood Pressure 1: 162/64 Code : 8480-6 BMI: 41.2 Code : 35235-4 Heart Rate 1 : 70 bpm Height: 4'11" SpO2: 97% Weight: 204 lbs 10/23/2015 Blood Pressure 1: 130/70 Code : 8480-6 BMI: 40.4 Code : 40421-3 Heart Rate 1 : 72 bpm Height: 4'11" SpO2: 95% Weight: 200 lbs 09/12/2015 Blood Pressure 1: 142/62 Code : 8480-6 BMI: 39.4 Code : 14482-1 Heart Rate 1 : 63 bpm Height: 4'11" SpO2: 96% Weight: 195 lbs 08/05/2015 Blood Pressure 1: 144/60 Code : 8480-6 BMI: 41.0 Code : 46017-5 Heart Rate 1 : 92 bpm Height: 4'11" SpO2: 90% SpO2: 97% Weight: 203 lbs 04/03/2015 Blood Pressure 1: 142/68 Code : 8480-6 BMI: 40.6 Code : 28625-1 Heart Rate 1 : 77 bpm Height: 4'11" SpO2: 95% Weight: 201 lbs 01/30/2015 Blood Pressure 1: 150/72 Code : 8480-6 BMI: 40.2 Code : 04572-7 Heart Rate 1 : 64 bpm Height: 4'11" Weight: 199 lbs 01/02/2015 Blood Pressure 1: 136/72 Code : 8480-6 BMI: 39.8 Code : 12770-8 Heart Rate 1 : 68 bpm Height: 4'11" Weight: 197 lbs Functional Status No Functional Status data History of Present Illness Symptom Name Status Result Effective Date Notes diabetes mellitus Quality insulin dependent 05/19/2017 None [...] data Encounters Encounter Performer Location Codes Date ([id number]) [id number] EST. PATIENT, LEVEL IV Diagnosis: Essential (primary) hypertension[ICD10: I10] Diagnosis: Type 2 diabetes mellitus with hyperglycemia[ICD10: E11.65] Diagnosis: Hypothyroidism, unspecified[ICD10: E03.9] Diagnosis: Vitamin B12 deficiency anemia due to intrinsic factor deficiency[ ICD10: D51.0] Diagnosis: Chronic kidney disease, stage 3 (moderate)[ICD10: N18.3] Giselle Knox MD , [facility] CPT-4: 08572 05/19/2017 ([id number]) [id number] EST. PATIENT, LEVEL IV Diagnosis: Essential (primary) hypertension[ICD10: I10] Diagnosis: Type 2 diabetes mellitus with hyperglycemia[ICD10: E11.65] Diagnosis: Hypothyroidism, unspecified[ICD10: E03.9] Giselle Knox MD, [facility] CPT-4: 54972 02/15/2017 ([id number]) [id number] EST. PATIENT, LEVEL IV Diagnosis: Type 2 diabetes mellitus with hyperglycemia[ICD10: E11.65] Diagnosis: Cough[ICD10: R05] Diagnosis: Acute upper respiratory infection, unspecified[ICD10: J06.9] Diagnosis: Hypothyroidism, unspecified[ICD10: E03.9] Diagnosis: Chronic kidney disease, stage 3 (moderate)[ICD10: N18.3] Giselle Knox MD , [facility] CPT-4: 12702 11/16/2016 ([id number]) [id number] EST. PATIENT, LEVEL IV Diagnosis: Type 2 diabetes mellitus with hyperglycemia[ICD10: E11.65] Diagnosis: Hypothyroidism, unspecified[ICD10: E03.9] Diagnosis: Essential (primary) hypertension[ICD10: I10] Giselle Knox MD, [facility] CPT-4: 22221 08/19/2016 ([id number]) [id number] EST. PATIENT, LEVEL III Diagnosis: Type 2 diabetes mellitus with hyperglycemia[ICD10: E11.65] Giselle Knox MD, [facility] CPT-4: 08445 07/15/2016 ([id number]) [id number] EST. PATIENT, LEVEL IV Diagnosis: Type 2 diabetes mellitus with hyperglycemia[ICD10: E11.65] Diagnosis: Atrophy of thyroid (acquired)[ICD10: E03.4] Diagnosis: Vitamin B12 deficiency anemia due to intrinsic factor deficiency[ ICD10: D51.0] Diagnosis: Chronic kidney disease, stage 3 (moderate)[ICD10: N18.3] Diagnosis: Essential (primary) hypertension[ICD10: I10] Jennifer Knox MD, [facility] CPT-4: 16191 06/03/2016 ([id number]) [id number] EST. PATIENT, LEVEL III Diagnosis: Type 2 diabetes mellitus with hyperglycemia[ICD10: E11.65] Diagnosis: Essential (primary) hypertension[ICD10: I10] Diagnosis: Chronic kidney disease, stage 3 (moderate)[ICD10: N18.3] Diagnosis: VACCIN STREP PNEUMONIAE[ICD10: Z23] Giselle Knox MD, [facility] CPT-4: 07134 04/22/2016 [id number] EST. PATIENT, LEVEL IV Diagnosis: Type 2 diabetes mellitus with hyperglycemia[ICD10: E11.65] Diagnosis: Essential (primary) hypertension[ICD10: I10] Chasity Knox MD, [facility] CPT-4: 17895 01/22/2016 ([id number]) 82232 EST. PATIENT, LEVEL III Diagnosis: Type 2 diabetes mellitus with hyperglycemia[ICD10: E11.65] Diagnosis: Essential (primary) hypertension[ICD10: I10] Giselle Knox MD, [facility] CPT-4: 39346 10/23/2015 [id number] EST. PATIENT, LEVEL IV Diagnosis: Type 2 diabetes mellitus with hyperglycemia[ICD10: E11.65] Diagnosis: Vitamin B12 deficiency anemia due to intrinsic factor deficiency[ ICD10: D51.0] Diagnosis: Essential (primary) hypertension[ICD10: I10] Chasity Knox MD, [facility] CPT-4: 89947 09/12/2015 ([id number]) 55821 EST. PATIENT, LEVEL IV Diagnosis: Essential (primary) hypertension[ICD10: I10] Diagnosis: Type 2 diabetes mellitus with hyperglycemia[ICD10: E11.65] Diagnosis: Hypothyroidism, unspecified[ICD10: E03.9] Giselle Knox MD, [facility] CPT-4: 93146 08/05/2015 ([id number]) 22349 EST. PATIENT, LEVEL III Diagnosis: ESSENTIAL HYPERTENSION[ICD9: 401.9] Diagnosis: DIABETES TYPE II[ICD9: 250.00] Jennifer Knox MD, [facility] CPT- 4: 75372 04/03/2015 ([id number]) 48044 EST. PATIENT, LEVEL IV Diagnosis: ESSENTIAL HYPERTENSION[ICD9: 401.9] Diagnosis: DIABETES TYPE II[ICD9: 250.00] Diagnosis: Hypothyroidism[ICD9: 244.9] [facility] CPT-4: 65344 01/30/2015 ([id number]) OFFICE VISIT, NEW - LEVEL 4 Diagnosis: ESSENTIAL HYPERTENSION[ICD9: 401.9] Diagnosis: DIABETES TYPE II[ICD9: 250.00] Diagnosis: Impacted cerumen[ICD9: 380.4] Jennifer Knox MD, [facility] CPT- 4: 01775 01/02/2015 Plan of Care Planned Activity Notes Codes Status Date App[facility]ment: [phone] [id number] ([facility]) Moderate 07/19/2017 [facility]ment[phone] ([facility] min) Moderate 06/13/2017 Visit Plan: [...] medications. 05/19/2017 Appointment: Giselle Mccoy WPtel: [phone] [phone] (30 min) Complex 05/19/2017 Patient Education: Patient [...] control. 02/15/2017 Appointment: [facility] [phone] [phone] (15 min) Moderate 02/15/2017 Patient Education: [...] labs today 11/16/2016 Appointment: [facility] [phone] [phone] [place] (15 min) Moderate 11/16/2016 Patient Education: [...] of control. 08/19/2016 App[facility]ment: [facility] [phone] [phone] [place] (15 min) Moderate 08/19/2016 Patient Education: Patient Medication Summary Completed 08/19/2016 Patient Education: Obesity Completed 08/19/2016 Care Plan: Tsh Cancelled 08/19/2016 Care Plan: %Hba1C LOINC : 93063-3 Cancelled 08/19/2016 Care Plan: Lipid Cancelled 08/19/2016 Care Plan: Free T4 patient coming back next week Cancelled 08/19/2016 Appointment: Injection 07/29/2016 Patient Education: Patient Medication Summary Completed 07/29/2016 Appointment: Giselle Mccoy WPtel: [phone] [phone] (30 min) Complex 07/22/2016 Visit Plan: Diabetes-having hypoglycemia in the mornings- insulin adjusted-patient and verbalized understanding of plan. Follow up in 1 month-call sooner if still having low blood sugars. Sinus congestion- start claritin 07/15/2016 Appointment: Giselle Mccoy WPtel: [phone] [phone] (30 min) Complex 07/15/2016 Patient Education: Patient [...] 06/03/2016 Appointment: Jennifer Knox [facility]: [phone] [...] 1 MONTH 04/22/2016 Appointment: Giselle Mccoy WPtel: [address] [place], [place] [phone] (15 min) Moderate 04/22/2016 Patient Education: Patient [...] if needed. 01/02/2015 Appointment: Jennifer Knox WPtel: [facility] [place] ([place] New Patient [...] readings are starting to become less controlled. COME BACK NEXT WEEK FOR BLOOD WORK [...] to allow for greater blood glucose control. BRING YOUR BLOOD SUGAR LOG TO [...] month and flush ears if needed. . Diabetes Mellitus - Uncontrolled - per [...] of control. Chronic renal disease-check labs today CHECK LABS WITH NEXT APPOINTMENT . Hypertension [...]
--- OUTSIDE RECORDS SUMMARY | 2018-06-17 11:06 | XMS REPORT | CCD ---
Author Author [facility] Organization [facility] Address [address] [place] [address] Phone Care Team Providers Care Physician Asst Name Role Phone PP Unavailable CCM Unavailable Summary Purpose Interface Exchange Insurance Providers Payer name Policy type / Coverage type Covered constitution party ID Effective Begin Date Effective End Date [facility] Commercial Insurance [id number] Unknown Family history Runs in the family [...] Fill Instructions Tamiflu 75 mg capsule RxNorm: 986322 1 Capsule(s) PO daily 08/1708/26/2017 Active cyanocobalamin (vit B-12) 1,000 mcg/mL injection solution RxNorm: 694890 1 Milliliter(s) Inj 08/17/2017 08/17/2017 Inactive Tamiflu 75 mg capsule RxNorm: 512980 1 Capsule(s) PO daily 08/1708/16/2017 Inactive carvedilol 12.5 mg tablet RxNorm: 879800 TAKE ONE TABLET BY MOUTH TWICE A DAY 08/10/2017 08/04/2018 Active cyanocobalamin (vit B-12) 1,000 mcg/mL injection solution RxNorm: 029100 1 Milliliter(s) Inj 07/19/2017 07/19/2017 Inactive Humulin 70/30 100 unit/mL subcutaneous suspension RxNorm: 156444 14 Unit(s) SQ QA 07/06/2017 No Stop Date Active Lantus Solostar 100 unit/mL (3 mL) subcutaneous insulin pen RxNorm: 851276 26 Unit(s) SQ QHS 07/06/2017 No Stop Date Active losartan 100 mg tablet RxNorm: 782410 TAKE ONE TABLET BY MOUTH DAILY 06/07/2017 04/02/2018 Active Lantus Solostar 100 unit/mL (3 mL) subcutaneous insulin pen RxNorm: 267242 28 Unit(s) SQ QHS 05/19/2017 07/05/2017 Inactive cyanocobalamin (vit B-12) 1,000 mcg/mL injection solution RxNorm: 734468 1 Milliliter(s) Inj 05/19/2017 05/19/2017 Inactive terazosin 2 mg capsule RxNorm: 627919 TAKE ONE CAPSULE BY MOUTH DAILY 05/16/2017 10/12/2017 Active cyanocobalamin (vit B-12) 1,000 mcg/mL injection solution RxNorm: 389975 1 Milliliter(s) Inj 04/06/2017 04/06/2017 Inactive cyanocobalamin (vit B-12) 1,000 mcg/mL injection solution RxNorm: 006534 Milliliter(s) Inj 01/04/2017 01/04/2017 Inactive Humulin 70/30 100 unit/mL subcutaneous suspension RxNorm: 002453 18 Unit(s) SQ QAM 12/22/2016 06/04/2017 Inactive cyanocobalamin (vit B-12) 1,000 mcg/mL injection solution RxNorm: 632594 1 Milliliter(s) Inj 12/10/2016 12/10/2016 Inactive Zithromax Z-Jose 250 mg tablet RxNorm: 922307 1 Tablet(s) PO UD 11/16/2016 11/20/2016 Inactive terazosin 2 mg capsule RxNorm: 724939 TAKE ONE CAPSULE BY MOUTH DAILY 11/08/2016 05/06/2017 Inactive Lantus Solostar 100 unit/mL (3 mL) subcutaneous insulin pen RxNorm: 967839 INJECT 35 UNITS UNDER THE SKIN EVERY NIGHT AT BEDTIME 201607/18/2017 Inactive cyanocobalamin (vit B-12) 1,000 mcg/mL injection solution RxNorm: 008068 Milliliter(s) Inj 10/13/2016 10/13/2016 Inactive cyanocobalamin (vit B-12) 1,000 mcg/mL injection solution RxNorm: 567284 1 Milliliter(s) Inj 09/03/2016 09/03/2016 Inactive Contour Test Strips RxNorm: TEST BLOOD SUGAR TWO TIMES A DAY E11.65 08/19/2016 04/10/2018 Active carvedilol 12.5 mg tablet RxNorm: 086397 TAKE ONE TABLET BY MOUTH TWICE A DAY 08/05/2016 01/01/2017 Inactive carvedilol 12.5 mg tablet RxNorm: 141488 TAKE ONE TABLET BY MOUTH TWICE A DAY 08/05/2016 01/01/2017 Inactive carvedilol 12.5 mg tablet RxNorm: 538245 1 Tablet(s) PO BID 05/201701/30/2017 Inactive cyanocobalamin (vit B-12) 1,000 mcg/mL injection solution RxNorm: 878902 Milliliter(s) Inj 07/29/2016 07/29/2016 Inactive Lantus Solostar 100 unit/mL (3 mL) subcutaneous insulin pen RxNorm: 679294 30 Unit(s) SQ QHS 07/15/2016 05/18/2017 Inactive Humulin 70/30 100 unit/mL subcutaneous suspension RxNorm: 967190 18 Unit(s) SQ QA 07/15/2016 12/21/2016 Inactive losartan 100 mg tablet RxNorm: 474972 TAKE ONE TABLET BY MOUTH DAILY 07/08/2016 06/02/2017 Inactive terazosin 2 mg capsule RxNorm: 686798 TAKE ONE CAPSULE BY MOUTH DAILY 06/10/2016 11/06/2016 Inactive cyanocobalamin (vit B-12) 1,000 mcg/mL injection solution RxNorm: 096190 1 Milliliter(s) Inj 06/03/2016 06/03/2016 Inactive Humulin 70/30 100 unit/mL subcutaneous suspension RxNorm: 437898 Unit(s) INJECT 10 UNITS UNDER THE SKIN 06/01/20162015 Inactive Request already responded to by other means (e.g. phone or fax) Humulin 70/30 100 unit/mL subcutaneous suspension RxNorm: 811351 INJECT 10 UNITS UNDER THE SKIN BEFORE MEALS 06/01/201601/2016 Inactive Request already responded to by other means (e.g. phone or fax) Lantus Solostar 100 unit/mL (3 mL) subcutaneous insulin pen RxNorm: 966402 35 Unit(s) SQ [facility] 05/26/2016 07/14/2016 Inactive Humulin 70/30 100 unit/mL subcutaneous suspension RxNorm: 877327 10 Unit(s) SQ QA 05/24/2016 10/02/2016 Inactive Humulin 70/30 100 unit/mL subcutaneous suspension RxNorm: 408648 21 Unit(s) SQ [facility] 05/24/2016 05/23/2016 Inactive Lantus Solostar 100 unit/mL (3 mL) subcutaneous insulin pen RxNorm: 910881 32 Unit(s) SQ [facility] 04/22/2016 05/25/2016 Inactive Humulin 70/30 100 unit/mL subcutaneous suspension RxNorm: 236180 21 Unit(s) SQ QA 04/22/2016 05/24/2016 Inactive with breakfast hydrochlorothiazide 25 mg tablet RxNorm: 952695 TAKE ONE TABLET BY MOUTH DAILY 02/04/2016 02/16/2016 Inactive terazosin 2 mg capsule RxNorm: 147157 Capsule(s) TAKE ONE CAPSULE BY MOUTH DAILY. 12/01/2015 05/28/2016 Inactive Humulin 70/30 100 unit/mL subcutaneous suspension RxNorm: 232170 INJECT 10 UNITS UNDER THE SKIN BEFORE MEALS 11/06/2015 Inactive hydrochlorothiazide 25 mg tablet RxNorm: 160905 1 Tablet(s) PO daily 10/06/2015 02/02/2016 Inactive cyanocobalamin (vit B-12) 1,000 mcg/mL injection solution RxNorm: 896882 Milliliter(s) Inj 09/15/2015 09/15/2015 Inactive Humulin 70/30 100 unit/mL subcutaneous suspension RxNorm: 044636 INJECT 10 UNITS UNDER THE SKIN BEFORE MEALS 09/08/2015 Inactive cyanocobalamin (vit B-12) 1,000 mcg/mL injection solution RxNorm: 344715 Milliliter(s) Inj 09/08/2015 09/08/2015 Inactive terazosin 2 mg capsule RxNorm: 203814 TAKE ONE CAPSULE BY MOUTH DAILY. DISCONTINUE 5 MG CAPSULES 09/01/201511/28 Inactive cyanocobalamin (vit B-12) 1,000 mcg/mL injection solution RxNorm: 287906 Milliliter(s) Inj 09/01/2015 09/01/2015 Inactive cyanocobalamin (vit B-12) 1,000 mcg/mL injection solution RxNorm: 566870 Milliliter(s) Inj 08/25/2015 08/25/2015 Inactive levothyroxine 112 mcg tablet RxNorm: 157915 1 Tablet(s) PO daily 08/06/2015 02/14/2017 Inactive Lantus Solostar 100 unit/mL (3 mL) subcutaneous insulin pen RxNorm: 603831 35 Unit(s) SQ QHS 08/06/2015 04/21/2016 Inactive Humulin 70/30 100 unit/mL subcutaneous suspension RxNorm: 491716 20 Unit(s) SQ AC 08/05/2015 04/21/2016 Inactive with breakfast carvedilol 12.5 mg tablet RxNorm: 495410 1 Tablet(s) PO BID 06/201601/31/2016 Inactive Humulin 70/30 100 unit/mL subcutaneous suspension RxNorm: 533570 10 Unit(s) SQ AC 07/22/2015 08/04/2015 Inactive losartan 100 mg tablet RxNorm: 494289 TAKE ONE TABLET BY MOUTH DAILY 06/25/2015 06/18/2016 Inactive Lantus Solostar 100 unit/mL (3 mL) subcutaneous insulin pen RxNorm: 488894 30 Unit(s) SQ QHS 06/18/2015 08/05/2015 Inactive terazosin 2 mg capsule RxNorm: 566797 1 Capsule(s) PO daily 08/11/2015 Inactive DC the 5mg order terazosin 2 mg capsule RxNorm: 861005 1 Capsule(s) PO daily 04/13/2015 Inactive Synthroid 25 mcg tablet RxNorm: 777029 1 Tablet(s) PO daily 02/14/2017 Inactive Synthroid 25 mcg tablet RxNorm: 347416 1 Tablet(s) PO daily 04/10/2015 Inactive Lantus Solostar 100 unit/mL (3 mL) subcutaneous insulin pen RxNorm: 498788 30 Unit(s) SQ QHS 04/04/2015 06/17/2015 Inactive terazosin 5 mg tablet RxNorm: 763250 1 Tablet(s) PO daily 201404/13/2015 Inactive Lantus Solostar 100 unit/mL (3 mL) subcutaneous insulin pen RxNorm: 904809 25 Unit(s) SQ QHS 01/08/2015 04/03/2015 Inactive carvedilol 25 mg tablet RxNorm: 758081 1 Tablet(s) PO BID 01/0201/31/2015 Inactive terazosin 5 mg tablet RxNorm: 375410 1 Tablet(s) PO daily 201401/01/2015 Inactive levothyroxine 125 mcg tablet RxNorm: 408552 1 Tablet(s) PO daily 01/02/2015 01/31/2015 Inactive terazosin 5 mg tablet RxNorm: 760372 1/2 Tablet(s) PO daily 05/201501/31/2015 Inactive losartan 100 mg tablet RxNorm: 853680 1 Tablet(s) PO daily 08/201404/22/2015 Inactive losartan 100 mg tablet RxNorm: 864520 1 Tablet(s) PO daily 08/201412/23/2014 Inactive Contour Test Strips RxNorm: Miscellaneous test blood sugars BID 12/06/2014 12/05/2014 Inactive dx 250.00 Contour Test Strips RxNorm: Miscellaneous test blood sugars BID or UD 12/06/2014 06/23/2015 Inactive dx 250.00 [SAVINGS FOR NON-COVERED DRUGS -- BIN:[id number], PCN: [id number], Group: [id number], ID# [id number], Questions: . THIS IS NOT INSURANCE.] folic acid 1 mg tablet RxNorm: 327969 1 Tablet(s) PO QHS No Start Date Active Microlet Lancet RxNorm : Miscellaneous Test BID or Ud No Start Date Active 250.0 aspirin 81 mg tablet,delayed release RxNorm: 436813 1 Tablet(s) PO daily No Start Date Active Stool Softener 100 mg capsule RxNorm: 6279841 1 Capsule(s) PO every other day No Start Date Active levothyroxine 100 mcg tablet RxNorm: 549900 1 Tablet(s) PO daily No Start Date Active folic acid oral RxNorm : 4511 oral No Start Date 05/19/2017 Inactive cyanocobalamin (vit B-12) 100 mcg tablet RxNorm: 734345 1 Tablet(s) PO daily No Start Date 02/14/2017 Inactive hydrochlorothiazide 25 mg tablet RxNorm: 581284 1 Tablet(s) PO daily No Start Date 10/05/2015 Inactive Stool Softener 100 mg capsule RxNorm: 0749027 1 Capsule(s) PO daily No Start Date 05/18/2017 Inactive Humulin 70/30 100 unit/mL subcutaneous suspension RxNorm: 744624 20 Unit(s) SQ QAM No Start Date 07/21/2015 Inactive Lantus Solostar 100 unit/mL (3 mL) subcutaneous insulin pen RxNorm: 226561 20 Unit(s) SQ QHS No Start Date 01/07/2015 Inactive ferrous sulfate 325 mg (65 mg iron) tablet RxNorm: 811683 1 Tablet(s) PO daily No Start Date 05/18/2017 Inactive Medication Administered Medication Codes Instructions Start Date Status cyanocobalamin (vit B-12) 1,000 mcg/mL injection solution RxNorm: 150852 1Milliliter 08/17/2017 Active cyanocobalamin (vit B-12) 1,000 mcg/mL injection solution RxNorm: 414359 1Milliliter 05/19/2017 No longer Active cyanocobalamin (vit B-12) 1,000 mcg/mL injection solution RxNorm: 614090 1Milliliter 04/06/2017 No longer Active cyanocobalamin (vit B-12) 1,000 mcg/mL injection solution RxNorm: 711052 Milliliter 01/04/2017 No longer Active cyanocobalamin (vit B-12) 1,000 mcg/mL injection solution RxNorm: 477481 1Milliliter 12/10/2016 No longer Active cyanocobalamin (vit B-12) 1,000 mcg/mL injection solution RxNorm: 945189 Milliliter 10/13/2016 No longer Active cyanocobalamin (vit B-12) 1,000 mcg/mL injection solution RxNorm: 708604 1Milliliter 09/03/2016 No longer Active cyanocobalamin (vit B-12) 1,000 mcg/mL injection solution RxNorm: 126021 Milliliter 07/29/2016 No longer Active cyanocobalamin (vit B-12) 1,000 mcg/mL injection solution RxNorm: 428151 1Milliliter 06/03/2016 No longer Active cyanocobalamin (vit B-12) 1,000 mcg/mL injection solution RxNorm: 087934 Milliliter 09/15/2015 No longer Active cyanocobalamin (vit B-12) 1,000 mcg/mL injection solution RxNorm: 547010 Milliliter 09/08/2015 No longer Active cyanocobalamin (vit B-12) 1,000 mcg/mL injection solution RxNorm: 980550 Milliliter 09/01/2015 No longer Active cyanocobalamin (vit B-12) 1,000 mcg/mL injection solution RxNorm: 752147 Milliliter 08/25/2015 No longer Active Immunizations Vaccine [...] 20.4 % 05/19/2017 Cbc With Differential Ord2 [place]% 6.8 % 05/19/2017 Cbc With Differential Ord2 [...] 1.64 K/ul 05/19/2017 Cbc With Differential Ord2 [place] ABS# 0.6 K/ul 05/19/2017 Cbc With Differential Ord2 Eos ABS# 0.2 K/ul 05/19/2017 Cbc With Differential Ord2 Baso ABS# 0.0 K/ul 05/19/2017 B12 Jgd744 B12 >1500.00 pg/ml 05/19/2017 Free T4 Cnh631 FREE T4 1.10 ng/dL 05/19/2017 %Hba1C Gkv542 % HbA1c 34717-9 6.8 % 05/19/2017 %Hba1C Ioi385 Gluc Ave 148 mg/dL 05/19/2017 Tsh Ord6 hTSH II 1.73 uIU/mL 05/19/2017 Comp Metabolic Tvt918 NA 140 mEq/L 05/19/2017 Comp Metabolic Lws196 K 3.8 mEq/L 05/19/2017 Comp Metabolic Rau730 CL 108 mEq/L 05/19/2017 Comp Metabolic Rjb800 CO2 21.0 mEq/L 05/19/2017 Comp Metabolic Pfh656 ANION GAP 15 05/19/2017 Comp Metabolic Wnd176 GLUCOSE 207 mg/dL 05/19/2017 Comp Metabolic Dak680 Creat 1.0 mg/dL 05/19/2017 Comp Metabolic Eho685 eGFR 55 ml/min/1.73m2 05/19/2017 Comp Metabolic Mxe224 BUN 21 mg/dL 05/19/2017 Comp Metabolic Vbe273 B/C Ratio 20.4 Ratio 05/19/2017 Comp Metabolic Abc212 CALCIUM 9.1 mg/dL 05/19/2017 Comp Metabolic Ege290 ALK PHOS 74 U/L 05/19/2017 Comp Metabolic Ugh506 AST(SGOT) 32 U/L 05/19/2017 Comp Metabolic Gjm667 ALT(SGPT) 15 U/L 05/19/2017 Comp Metabolic Fox112 BILI T 0.6 mg/dL 05/19/2017 Comp Metabolic Wgt790 ALBUMIN 3.9 g/dL 05/19/2017 Comp Metabolic Bfz638 TPRO 6.2 g/dL 05/19/2017 Comp Metabolic Ttv979 GLOB 2.3 g/dL 05/19/2017 Comp Metabolic Jrn312 A/G Ratio 1.6 Ratio 05/19/2017 Comp Metabolic Yax975 Osmo 288 mOsmo 05/19/2017 Cbc With Differential [...] 29.3 pg 12/10/2016 Cbc With Differential Ord2 [place]% 7.1 % 12/10/2016 Cbc With Differential Ord2 [...] 2.50 K/ul 12/10/2016 Cbc With Differential Ord2 [place] ABS# 0.5 K/ul 12/10/2016 Cbc With Differential Ord2 Eos ABS# 0.1 K/ul 12/10/2016 Cbc With Differential Ord2 Baso ABS# 0.0 K/ul 12/10/2016 B12 Hfc023 B12 222.00 pg/ml 12/10/2016 %Hba1C Pyq779 % HbA1c 25885-2 7.5 % 11/16/2016 %Hba1C Ran050 Gluc Ave 169 mg/dL 11/16/2016 Free T4 Ayw381 FREE T4 1.03 ng/dL 11/16/2016 Comp Metabolic Pmx695 NA 138 mEq/L 11/16/2016 Comp Metabolic Pto660 K 3.8 mEq/L 11/16/2016 Comp Metabolic Cpi369 CL 103 mEq/L 11/16/2016 Comp Metabolic Xte992 CO2 26.0 mEq/L 11/16/2016 Comp Metabolic Uxs561 ANION GAP 13 11/16/2016 Comp Metabolic Ios849 GLUCOSE 235 mg/dL 11/16/2016 Comp Metabolic Zdp662 Creat 0.9 mg/dL 11/16/2016 Comp Metabolic Pig861 eGFR 62 ml/min/1.73m2 11/16/2016 Comp Metabolic Vbo863 BUN 20 mg/dL 11/16/2016 Comp Metabolic Fhr127 B/C Ratio 21.7 Ratio 11/16/2016 Comp Metabolic Jst026 CALCIUM 8.9 mg/dL 11/16/2016 Comp Metabolic Jje879 ALK PHOS 75 U/L 11/16/2016 Comp Metabolic Ahd960 AST(SGOT) 30 U/L 11/16/2016 Comp Metabolic Npq825 ALT(SGPT) 13 U/L 11/16/2016 Comp Metabolic Usn914 BILI T 0.6 mg/dL 11/16/2016 Comp Metabolic Mbj943 ALBUMIN 3.8 g/dL 11/16/2016 Comp Metabolic Uul473 TPRO 6.8 g/dL 11/16/2016 Comp Metabolic Ods584 GLOB 3.1 g/dL 11/16/2016 Comp Metabolic Tku652 A/G Ratio 1.2 Ratio 11/16/2016 Comp Metabolic Rcr215 Osmo 286 mOsmo 11/16/2016 Tsh Ord6 hTSH II 2.50 uIU/mL 11/16/2016 Tsh Ord6 hTSH II 3.18 uIU/mL 05/21/2016 Lipid Ord30 CHOL 212 mg/dL 05/21/2016 Lipid Ord30 HDL 43.0 mg/dl 05/21/2016 Lipid Ord30 TRIG 164 mg/dL 05/21/2016 Lipid Ord30 LDL 136 mg/dL 05/21/2016 Lipid Ord30 C/HDL 4.9 Ratio 05/21/2016 B12 Xwa194 B12 159.00 pg/ml 05/21/2016 %Hba1C Adt616 % HbA1c 86771-0 7.5 % 05/21/2016 %Hba1C Bhj228 Gluc Ave 169 mg/dL 05/21/2016 Folate Ord36 Folate >23.80 ng/mL 05/21/2016 Free T4 Ghz888 FREE T4 1.03 ng/dL 05/21/2016 CHEM 14 6356335 AST 33 U/L 03/15/2016 CHEM 14 9741013 ALT 13 U/L 03/15/2016 CHEM 14 2081004 BUN 18 mg/dL 03/15/2016 CHEM 14 5880274 ALBUMIN 3.9 g/dL 03/15/2016 CHEM 14 1893073 CHLORIDE 105 mmol/L 03/15/2016 CHEM 14 0214625 Bili Total 0.4 mg/dL 03/15/2016 CHEM 14 2412616 ALK PHOS 60 U/L 03/15/2016 CHEM 14 1782015 SODIUM 138 mmol/L 03/15/2016 CHEM 14 7046169 CREATININE 0.99 mg/dL 03/15/2016 CHEM 14 6587587 CALCIUM 9.4 mg/dL 03/15/2016 CHEM 14 3842240 POTASSIUM 3.8 mmol/L 03/15/2016 CHEM 14 1518625 TOTAL PROTEIN 6.7 g/dL 03/15/2016 CHEM 14 9288737 GLUCOSE 109 mg/dL 03/15/2016 CHEM 14 1930780 Bicarbonate 27 mmol/L 03/15/2016 CHEM 14 2491654 AGAP 6 mmol/L 03/15/2016 GFR CALC 4367356 GFR Non Afr Amr 54 mL/min 03/15/2016 GFR CALC 0901618 GFR Afr Amr >60 mL/min 03/15/2016 B12 Dmr249 B12 46.00 pg/ml 08/07/2015 Iron Ord72 Iron [...] Ord2 RDW 16.6 % 08/05/2015 Free T4 Vrc625 FREE T4 1.33 ng/dL 08/05/2015 Comp Metabolic Vrf269 NA 137 mEq/L 08/05/2015 Comp Metabolic Cyd558 K 4.5 mEq/L 08/05/2015 Comp Metabolic Eic019 CL 104 mEq/L 08/05/2015 Comp Metabolic Fec968 CO2 26.0 mEq/L 08/05/2015 Comp Metabolic Zrj703 ANION GAP 12 08/05/2015 Comp Metabolic Hrp987 GLUCOSE 146 mg/dL 08/05/2015 Comp Metabolic Bxh677 Creat 1.0 mg/dL 08/05/2015 Comp Metabolic Wwx066 eGFR 56 ml/min/1.73m2 08/05/2015 Comp Metabolic Ajd452 BUN 23 mg/dL 08/05/2015 Comp Metabolic Vbx415 B/C Ratio 22.8 Ratio 08/05/2015 Comp Metabolic Clt439 CALCIUM 9.3 mg/dL 08/05/2015 Comp Metabolic Usl889 ALK PHOS 71 U/L 08/05/2015 Comp Metabolic Ksf999 AST(SGOT) 33 U/L 08/05/2015 Comp Metabolic Vcm859 ALT(SGPT) 15 U/L 08/05/2015 Comp Metabolic Gfq254 BILI T 0.6 mg/dL 08/05/2015 Comp Metabolic Zbx298 ALBUMIN 3.9 g/dL 08/05/2015 Comp Metabolic Btr579 TPRO 6.5 g/dL 08/05/2015 Comp Metabolic Hxq464 GLOB 2.6 g/dL 08/05/2015 Comp Metabolic Dhq620 A/G Ratio 1.5 Ratio 08/05/2015 Comp Metabolic Hru966 Osmo 280 mOsmo 08/05/2015 Tsh Ord6 hTSH II 0.36 uIU/mL 08/05/2015 %Hba1C Uhe674 % HbA1c 69855-7 8.1 % 08/05/2015 %Hba1C Sbe286 Gluc Ave 186 mg/dL 08/05/2015 Free T4 Sbw516 FREE T4 0.91 ng/dL 04/11/2015 %Hba1C Qqq705 % HbA1c 68586-4 8.3 % 04/10/2015 %Hba1C Cpd571 Gluc Ave 192 mg/dL 04/10/2015 Cbc With [...] Ord2 RDW 15.8 % 04/10/2015 Comp Metabolic Viq505 NA 134 mEq/L 04/10/2015 Comp Metabolic Gmk043 K 4.1 mEq/L 04/10/2015 Comp Metabolic Pai758 CL 105 mEq/L 04/10/2015 Comp Metabolic Twg819 CO2 26.0 mEq/L 04/10/2015 Comp Metabolic Bkn639 ANION GAP 7 04/10/2015 Comp Metabolic Hxv178 GLUCOSE 126 mg/dL 04/10/2015 Comp Metabolic Anj086 Creat 1.0 mg/dL 04/10/2015 Comp Metabolic Bha092 eGFR 58 ml/min/1.73m2 04/10/2015 Comp Metabolic Pml003 BUN 29 mg/dL 04/10/2015 Comp Metabolic Byo883 B/C Ratio 29.6 Ratio 04/10/2015 Comp Metabolic Nqf491 CALCIUM 9.3 mg/dL 04/10/2015 Comp Metabolic Vvy811 ALK PHOS 63 U/L 04/10/2015 Comp Metabolic Uhc797 AST(SGOT) 31 U/L 04/10/2015 Comp Metabolic Aje924 ALT(SGPT) 14 U/L 04/10/2015 Comp Metabolic Nqd746 BILI T 0.6 mg/dL 04/10/2015 Comp Metabolic Dzy060 ALBUMIN 3.9 g/dL 04/10/2015 Comp Metabolic Zrt892 TPRO 6.3 g/dL 04/10/2015 Comp Metabolic Ntz486 GLOB 2.4 g/dL 04/10/2015 Comp Metabolic Ryv680 A/G Ratio 1.6 Ratio 04/10/2015 Comp Metabolic Auu734 Osmo 276 mOsmo 04/10/2015 Tsh Ord6 hTSH [...] Procedure Codes Date THER/PROPH/DIAG INJ SC/IM CPT-4: 44458 08/17/2017 VITAMIN B12 INJECTION CPT-4: J3420 08/17/2017 THER/PROPH/DIAG INJ SC/IM CPT-4: 51397 05/19/2017 VITAMIN B12 INJECTION CPT-4: J3420 05/19/2017 THER/PROPH/DIAG INJ SC/IM CPT-4: 65556 04/06/2017 VITAMIN B12 INJECTION CPT-4: J3420 04/06/2017 THER/PROPH/DIAG INJ SC/IM CPT-4: 76453 01/04/2017 VITAMIN B12 INJECTION CPT-4: J3420 01/04/2017 THER/PROPH/DIAG INJ SC/IM CPT-4: 86022 12/10/2016 VITAMIN B12 INJECTION CPT-4: J3420 12/10/2016 THER/PROPH/DIAG INJ SC/IM CPT-4: 13550 10/13/2016 TRIAMCINOLONE ACET INJ NOS CPT-4: J3301 10/13/2016 THER/PROPH/DIAG INJ SC/IM CPT-4: 36633 09/03/2016 VITAMIN B12 INJECTION CPT-4: J3420 09/03/2016 THER/PROPH/DIAG INJ SC/IM CPT-4: 17055 07/29/2016 VITAMIN B12 INJECTION CPT-4: J3420 07/29/2016 THER/PROPH/DIAG INJ SC/IM CPT-4: 42621 06/03/2016 VITAMIN B12 INJECTION CPT-4: J3420 06/03/2016 PNEUMOCOCCAL VACC [address]: 57259891 CPT-4: 32269 04/22/2016 ADMIN PNEUMOCOCCAL VACCINE SNOMED CT: 05055524 CPT-4: G0009 04/22/2016 VITAMIN B12 INJECTION CPT-4: J3420 09/15/2015 THER/PROPH/DIAG INJ SC/IM CPT-4: 90077 09/15/2015 THER/PROPH/DIAG INJ SC/IM CPT-4: 23988 09/08/2015 VITAMIN B12 INJECTION CPT-4: J3420 09/08/2015 THER/PROPH/DIAG INJ SC/IM CPT-4: 52740 09/01/2015 VITAMIN B12 INJECTION CPT-4: J3420 09/01/2015 THER/PROPH/DIAG INJ SC/IM CPT-4: 46450 08/25/2015 VITAMIN B12 INJECTION CPT-4: J3420 08/25/2015 Vital Signs Date Vital 08/17/2017 Blood Pressure 1: 144/70 Code : 8480-6 BMI: 41.8 Code : 26863-7 Heart Rate 1 : 63 bpm Height: 4'11" SpO2: 97% Weight: 207 lbs 05/19/2017 Blood Pressure 1: 148/76 Code : 8480-6 BMI: 42.8 Code : 97054-4 Heart Rate 1 : 72 bpm Height: 4'11" SpO2: 94% Weight: 212 lbs 02/15/2017 Blood Pressure 1: 154/70 Code : 8480-6 BMI: 42.5 Code : 79064-5 Heart Rate 1 : 68 bpm Height: 4'11" SpO2: 97% Weight: 210 lbs 8 oz 11/16/2016 Blood Pressure 1: 142/78 Code : 8480-6 BMI: 41.6 Code : 68327-1 Heart Rate 1 : 68 bpm Height: 4'11" SpO2: 95% Temperature: 36.0 (C) / 96.8 (F) Weight: 206 lbs 08/19/2016 Blood Pressure 1: 120/74 Code : 8480-6 BMI: 41.6 Code : 19364-6 Heart Rate 1 : 75 bpm Height: 4'11" SpO2: 95% Weight: 206 lbs 07/15/2016 Blood Pressure 1: 140/76 Code : 8480-6 BMI: 42.0 Code : 85212-5 Heart Rate 1 : 76 bpm Height: 4'11" SpO2: 96% Weight: 208 lbs 06/03/2016 Blood Pressure 1: 130/78 Code : 8480-6 BMI: 42.8 Code : 91375-5 Heart Rate 1 : 72 bpm Height: 4'11" SpO2: 98% Weight: 212 lbs 04/22/2016 Blood Pressure 1: 142/84 Code : 8480-6 BMI: 41.8 Code : 64077-9 Heart Rate 1 : 86 bpm Height: 4'11" SpO2: 92% Weight: 207 lbs 01/22/2016 Blood Pressure 1: 162/64 Code : 8480-6 BMI: 41.2 Code : 53213-6 Heart Rate 1 : 70 bpm Height: 4'11" SpO2: 97% Weight: 204 lbs 10/23/2015 Blood Pressure 1: 130/70 Code : 8480-6 BMI: 40.4 Code : 39632-5 Heart Rate 1 : 72 bpm Height: 4'11" SpO2: 95% Weight: 200 lbs 09/12/2015 Blood Pressure 1: 142/62 Code : 8480-6 BMI: 39.4 Code : 33622-4 Heart Rate 1 : 63 bpm Height: 4'11" SpO2: 96% Weight: 195 lbs 08/05/2015 Blood Pressure 1: 144/60 Code : 8480-6 BMI: 41.0 Code : 32385-6 Heart Rate 1 : 92 bpm Height: 4'11" SpO2: 90% SpO2: 97% Weight: 203 lbs 04/03/2015 Blood Pressure 1: 142/68 Code : 8480-6 BMI: 40.6 Code : 96238-6 Heart Rate 1 : 77 bpm Height: 4'11" SpO2: 95% Weight: 201 lbs 01/30/2015 Blood Pressure 1: 150/72 Code : 8480-6 BMI: 40.2 Code : 94179-1 Heart Rate 1 : 64 bpm Height: 4'11" Weight: 199 lbs 01/02/2015 Blood Pressure 1: 136/72 Code : 8480-6 BMI: 39.8 Code : 84588-4 Heart Rate 1 : 68 bpm Height: [...] data Encounters Encounter Performer Location Codes Date 03528 EST. PATIENT, LEVEL IV Diagnosis: Essential (primary) hypertension[ICD10: I10] Diagnosis: Type 2 diabetes mellitus with hyperglycemia[ICD10: E11.65] Diagnosis: Vitamin B12 deficiency anemia due to intrinsic factor deficiency[ ICD10: D51.0] Chasity Knox MD, [facility] CPT-4: 92411 ([id number]) [id number] EST. PATIENT, LEVEL IV Diagnosis: Essential (primary) hypertension[ICD10: I10] Diagnosis: Type 2 diabetes mellitus with hyperglycemia[ICD10: E11.65] Diagnosis: Hypothyroidism, unspecified[ICD10: E03.9] Diagnosis: Vitamin B12 deficiency anemia due to intrinsic factor deficiency[ ICD10: D51.0] Diagnosis: Chronic kidney disease, stage 3 (moderate)[ICD10: N18.3] Giselle Knox MD , [facility] CPT-4: 23642 05/19/2017 ([id number]) 46045 EST. PATIENT, LEVEL IV Diagnosis: Essential (primary) hypertension[ICD10: I10] Diagnosis: Type 2 diabetes mellitus with hyperglycemia[ICD10: E11.65] Diagnosis: Hypothyroidism, unspecified[ICD10: E03.9] Giselle Knox MD, [facility] CPT-4: 17509 02/15/2017 ([id number]) [id number] EST. PATIENT, LEVEL IV Diagnosis: Type 2 diabetes mellitus with hyperglycemia[ICD10: E11.65] Diagnosis: Cough[ICD10: R05] Diagnosis: Acute upper respiratory infection, unspecified[ICD10: J06.9] Diagnosis: Hypothyroidism, unspecified[ICD10: E03.9] Diagnosis: Chronic kidney disease, stage 3 (moderate)[ICD10: N18.3] Giselle Knox MD , [facility] CPT-4: 61326 11/16/2016 ([id number]) 99472 EST. PATIENT, LEVEL IV Diagnosis: Type 2 diabetes mellitus with hyperglycemia[ICD10: E11.65] Diagnosis: Hypothyroidism, unspecified[ICD10: E03.9] Diagnosis: Essential (primary) hypertension[ICD10: I10] Giselle Knox MD, [facility] CPT-4: 36749 08/19/2016 ([id number]) 96482 EST. PATIENT, LEVEL III Diagnosis: Type 2 diabetes mellitus with hyperglycemia[ICD10: E11.65] Giselle Knox MD, [facility] CPT-4: 66287 07/15/2016 ([id number]) 38746 EST. PATIENT, LEVEL IV Diagnosis: Type 2 diabetes mellitus with hyperglycemia[ICD10: E11.65] Diagnosis: Atrophy of thyroid (acquired)[ICD10: E03.4] Diagnosis: Vitamin B12 deficiency anemia due to intrinsic factor deficiency[ ICD10: D51.0] Diagnosis: Chronic kidney disease, stage 3 (moderate)[ICD10: N18.3] Diagnosis: Essential (primary) hypertension[ICD10: I10] Jennifer Knox MD, [facility] CPT-4: 73578 06/03/2016 ([id number]) [id number] EST. PATIENT, LEVEL III Diagnosis: Type 2 diabetes mellitus with hyperglycemia[ICD10: E11.65] Diagnosis: Essential (primary) hypertension[ICD10: I10] Diagnosis: Chronic kidney disease, stage 3 (moderate)[ICD10: N18.3] Diagnosis: VACCIN STREP PNEUMONIAE[ICD10: Z23] Giselle Knox MD, [facility] CPT-4: 11984 04/22/2016 [id number] EST. PATIENT, LEVEL IV Diagnosis: Type 2 diabetes mellitus with hyperglycemia[ICD10: E11.65] Diagnosis: Essential (primary) hypertension[ICD10: I10] Chasity Knox MD, [facility] CPT-4: 21890 01/22/2016 ([id number]) 01706 EST. PATIENT, LEVEL III Diagnosis: Type 2 diabetes mellitus with hyperglycemia[ICD10: E11.65] Diagnosis: Essential (primary) hypertension[ICD10: I10] Giselle Knox MD, [facility] CPT-4: 43407 10/23/2015 20710 EST. PATIENT, LEVEL IV Diagnosis: Type 2 diabetes mellitus with hyperglycemia[ICD10: E11.65] Diagnosis: Vitamin B12 deficiency anemia due to intrinsic factor deficiency[ ICD10: D51.0] Diagnosis: Essential (primary) hypertension[ICD10: I10] Chasity Knox MD, [facility] CPT-4: 86107 09/12/2015 ([id number]) [id number] EST. PATIENT, LEVEL IV Diagnosis: Essential (primary) hypertension[ICD10: I10] Diagnosis: Type 2 diabetes mellitus with hyperglycemia[ICD10: E11.65] Diagnosis: Hypothyroidism, unspecified[ICD10: E03.9] Giselle Knox MD, [facility] CPT-4: 11993 08/05/2015 ([id number]) 51006 EST. PATIENT, LEVEL III Diagnosis: ESSENTIAL HYPERTENSION[ICD9: 401.9] Diagnosis: DIABETES TYPE II[ICD9: 250.00] Jennifer Knox MD, [facility] CPT- 4: 88527 04/03/2015 ([id number]) 75743 EST. PATIENT, LEVEL IV Diagnosis: ESSENTIAL HYPERTENSION[ICD9: 401.9] Diagnosis: DIABETES TYPE II[ICD9: 250.00] Diagnosis: Hypothyroidism[ICD9: 244.9] Giselle Knox MD, [facility] CPT-4: 26457 01/30/2015 ([id number]) OFFICE VISIT, NEW - LEVEL 4 Diagnosis: ESSENTIAL HYPERTENSION[ICD9: 401.9] Diagnosis: DIABETES TYPE II[ICD9: 250.00] Diagnosis: Impacted cerumen[ICD9: 380.4] Jennifer Knox MD, [facility] CPT- 4: 90272 01/02/2015 Plan of Care Planned Activity Notes Codes Status Date Patient Education: Patient Medication Summary Completed 08/17/2017 [phone] [phone] ([facility] Moderate 07/19/2017 App[facility]ment: [phone] (15 min) Moderate 06/13/2017 Appointment: Giselle Mccoy WPtel: [phone] [place] (30 min) Complex 05/19/2017 Patient Education: Patient Medication Summary Completed 05/19/2017 Patient Education: Obesity Completed 05/19/2017 Appointment: Injection 04/06/2017 Patient Education: Patient Medication Summary Completed 04/06/2017 Appointment: Giselle Mccoy WPtel: [phone] [place] (15 min) Moderate 02/15/2017 Patient Education: Patient Medication Summary Completed 02/15/2017 Patient Education: Obesity Completed 02/15/2017 Appointment: Injection 01/04/2017 Patient Education: Patient Medication Summary Completed 01/04/2017 Appointment: Injection 12/10/2016 Patient Education: Patient Medication Summary Completed 12/10/2016 Appointment: Giselle Mccoy WPtel: [phone] [place] (15 min) Moderate 11/16/2016 Patient Education: Patient Medication Summary Completed 11/16/2016 Patient Education: Obesity Completed 11/16/2016 Appointment: Injection 10/13/2016 Patient Education: Patient Medication Summary Completed 10/13/2016 Appointment: Injection 09/03/2016 Patient Education: Patient Medication Summary Completed 09/03/2016 Appointment: Giselle Mccoy [facility]Ptel[phone] [place] (15 min) Moderate 08/19/2016 Patient Education: Patient Medication Summary Completed 08/19/2016 Patient Education: Obesity Completed 08/19/2016 Care Plan: Tsh Cancelled 08/19/2016 Care Plan: %Hba1C LOINC : [id number] Cancelled 08/19/2016 Care Plan: Lipid Cancelled 08/19/2016 Care Plan: Free T4 patient coming back next week Cancelled 08/19/2016 Appointment: Injection 07/29/2016 Patient Education: Patient Medication Summary Completed 07/29/2016 App[facility]ment[facility] [phone] [phone] (30 min) Complex 07/22/2016 Appointment: Giselle Mccoy WPtel: [phone] [phone] [place] (30 min) Complex 07/15/2016 Patient Education: Patient Medication Summary Completed 07/15/2016 Patient Education: Obesity Completed 07/15/2016 Appointment: [facility] [phone] [facility] [place] (15 min) Moderate 06/03/2016 Patient Education: Patient Medication Summary Completed 06/03/2016 Patient Education: Obesity Completed 06/03/2016 App[facility]ment: [phone] [phone] [place] (15 min) Moderate 04/22/2016 Patient [...] Completed 01/30/2015 Appointment: [facility] [phone] [facility] [place] ([place] New Patient 01/02/2015 Patient Education: Patient Medication Summary Completed 01/02/2015 Patient Education: Hypertension Completed 01/02/2015 Instructions No Instructions
--- OUTSIDE RECORDS SUMMARY | 2018-06-17 11:09 | XMS REPORT | CCD ---
Author Author [facility] Organization [facility] Address [address] [place] [address] Phone Care Team Providers Care Entry Writer Name Role Phone PP Unavailable CCM Unavailable Summary Purpose Interface Exchange Insurance Providers Payer name Policy type / Coverage type Covered republican ID Effective Begin Date Effective End Date [facility] Commercial Insurance [id number] Unknown Family history Runs in the family [...] Fill Instructions Tamiflu 75 mg capsule RxNorm: 554875 1 Capsule(s) PO daily 08/1708/26/2017 Active Tamiflu 75 mg capsule RxNorm: 195045 1 Capsule(s) PO daily 08/1708/16/2017 Inactive cyanocobalamin (vit B-12) 1,000 mcg/mL injection solution RxNorm: 854563 1 Milliliter(s) Inj 08/17/2017 08/17/2017 Inactive carvedilol 12.5 mg tablet RxNorm: 938505 TAKE ONE TABLET BY MOUTH TWICE A DAY 08/10/2017 08/04/2018 Active cyanocobalamin (vit B-12) 1,000 mcg/mL injection solution RxNorm: 795673 1 Milliliter(s) Inj 07/19/2017 07/19/2017 Inactive Humulin 70/30 100 unit/mL subcutaneous suspension RxNorm: 995140 14 Unit(s) SQ QA 07/06/2017 No Stop Date Active Lantus Solostar 100 unit/mL (3 mL) subcutaneous insulin pen RxNorm: 845686 26 Unit(s) SQ QHS 07/06/2017 No Stop Date Active losartan 100 mg tablet RxNorm: 242560 TAKE ONE TABLET BY MOUTH DAILY 06/07/2017 04/02/2018 Active Lantus Solostar 100 unit/mL (3 mL) subcutaneous insulin pen RxNorm: 022254 28 Unit(s) SQ QHS 05/19/2017 07/05/2017 Inactive cyanocobalamin (vit B-12) 1,000 mcg/mL injection solution RxNorm: 537549 1 Milliliter(s) Inj 05/19/2017 05/19/2017 Inactive terazosin 2 mg capsule RxNorm: 549970 TAKE ONE CAPSULE BY MOUTH DAILY 05/16/2017 10/12/2017 Active cyanocobalamin (vit B-12) 1,000 mcg/mL injection solution RxNorm: 868374 1 Milliliter(s) Inj 04/06/2017 04/06/2017 Inactive cyanocobalamin (vit B-12) 1,000 mcg/mL injection solution RxNorm: 474090 Milliliter(s) Inj 01/04/2017 01/04/2017 Inactive Humulin 70/30 100 unit/mL subcutaneous suspension RxNorm: 364429 18 Unit(s) SQ QAM 12/22/2016 06/04/2017 Inactive cyanocobalamin (vit B-12) 1,000 mcg/mL injection solution RxNorm: 084665 1 Milliliter(s) Inj 12/10/2016 12/10/2016 Inactive Zithromax Z-Jose 250 mg tablet RxNorm: 911223 1 Tablet(s) PO UD 11/16/2016 11/20/2016 Inactive terazosin 2 mg capsule RxNorm: 791179 TAKE ONE CAPSULE BY MOUTH DAILY 11/08/2016 05/06/2017 Inactive Lantus Solostar 100 unit/mL (3 mL) subcutaneous insulin pen RxNorm: 223106 INJECT 35 UNITS UNDER THE SKIN EVERY NIGHT AT BEDTIME 201607/18/2017 Inactive cyanocobalamin (vit B-12) 1,000 mcg/mL injection solution RxNorm: 852898 Milliliter(s) Inj 10/13/2016 10/13/2016 Inactive cyanocobalamin (vit B-12) 1,000 mcg/mL injection solution RxNorm: 125343 1 Milliliter(s) Inj 09/03/2016 09/03/2016 Inactive Contour Test Strips RxNorm: TEST BLOOD SUGAR TWO TIMES A DAY E11.65 08/19/2016 04/10/2018 Active carvedilol 12.5 mg tablet RxNorm: 432577 TAKE ONE TABLET BY MOUTH TWICE A DAY 08/05/2016 01/01/2017 Inactive carvedilol 12.5 mg tablet RxNorm: 128119 TAKE ONE TABLET BY MOUTH TWICE A DAY 08/05/2016 01/01/2017 Inactive carvedilol 12.5 mg tablet RxNorm: 622866 1 Tablet(s) PO BID 05/201701/30/2017 Inactive cyanocobalamin (vit B-12) 1,000 mcg/mL injection solution RxNorm: 565456 Milliliter(s) Inj 07/29/2016 07/29/2016 Inactive Lantus Solostar 100 unit/mL (3 mL) subcutaneous insulin pen RxNorm: 615769 30 Unit(s) SQ QHS 07/15/2016 05/18/2017 Inactive Humulin 70/30 100 unit/mL subcutaneous suspension RxNorm: 865105 18 Unit(s) SQ QA 07/15/2016 12/21/2016 Inactive losartan 100 mg tablet RxNorm: 723766 TAKE ONE TABLET BY MOUTH DAILY 07/08/2016 06/02/2017 Inactive terazosin 2 mg capsule RxNorm: 532270 TAKE ONE CAPSULE BY MOUTH DAILY 06/10/2016 11/06/2016 Inactive cyanocobalamin (vit B-12) 1,000 mcg/mL injection solution RxNorm: 926583 1 Milliliter(s) Inj 06/03/2016 06/03/2016 Inactive Humulin 70/30 100 unit/mL subcutaneous suspension RxNorm: 612509 Unit(s) INJECT 10 UNITS UNDER THE SKIN 06/01/20162015 Inactive Request already responded to by other means (e.g. phone or fax) Humulin 70/30 100 unit/mL subcutaneous suspension RxNorm: 274628 INJECT 10 UNITS UNDER THE SKIN BEFORE MEALS 06/01/201601/2016 Inactive Request already responded to by other means (e.g. phone or fax) Lantus Solostar 100 unit/mL (3 mL) subcutaneous insulin pen RxNorm: 667209 35 Unit(s) SQ [facility] 05/26/2016 07/14/2016 Inactive Humulin 70/30 100 unit/mL subcutaneous suspension RxNorm: 773155 10 Unit(s) SQ QA 05/24/2016 10/02/2016 Inactive Humulin 70/30 100 unit/mL subcutaneous suspension RxNorm: 616378 21 Unit(s) SQ [facility] 05/24/2016 05/23/2016 Inactive Lantus Solostar 100 unit/mL (3 mL) subcutaneous insulin pen RxNorm: 104848 32 Unit(s) SQ [facility] 04/22/2016 05/25/2016 Inactive Humulin 70/30 100 unit/mL subcutaneous suspension RxNorm: 822878 21 Unit(s) SQ QA 04/22/2016 05/24/2016 Inactive with breakfast hydrochlorothiazide 25 mg tablet RxNorm: 264898 TAKE ONE TABLET BY MOUTH DAILY 02/04/2016 02/16/2016 Inactive terazosin 2 mg capsule RxNorm: 717619 Capsule(s) TAKE ONE CAPSULE BY MOUTH DAILY. 12/01/2015 05/28/2016 Inactive Humulin 70/30 100 unit/mL subcutaneous suspension RxNorm: 079746 INJECT 10 UNITS UNDER THE SKIN BEFORE MEALS 11/06/2015 Inactive hydrochlorothiazide 25 mg tablet RxNorm: 809837 1 Tablet(s) PO daily 10/06/2015 02/02/2016 Inactive cyanocobalamin (vit B-12) 1,000 mcg/mL injection solution RxNorm: 348981 Milliliter(s) Inj 09/15/2015 09/15/2015 Inactive Humulin 70/30 100 unit/mL subcutaneous suspension RxNorm: 384966 INJECT 10 UNITS UNDER THE SKIN BEFORE MEALS 09/08/2015 Inactive cyanocobalamin (vit B-12) 1,000 mcg/mL injection solution RxNorm: 181916 Milliliter(s) Inj 09/08/2015 09/08/2015 Inactive terazosin 2 mg capsule RxNorm: 438628 TAKE ONE CAPSULE BY MOUTH DAILY. DISCONTINUE 5 MG CAPSULES 09/01/201511/28 Inactive cyanocobalamin (vit B-12) 1,000 mcg/mL injection solution RxNorm: 495444 Milliliter(s) Inj 09/01/2015 09/01/2015 Inactive cyanocobalamin (vit B-12) 1,000 mcg/mL injection solution RxNorm: 701859 Milliliter(s) Inj 08/25/2015 08/25/2015 Inactive levothyroxine 112 mcg tablet RxNorm: 931517 1 Tablet(s) PO daily 08/06/2015 02/14/2017 Inactive Lantus Solostar 100 unit/mL (3 mL) subcutaneous insulin pen RxNorm: 313031 35 Unit(s) SQ QHS 08/06/2015 04/21/2016 Inactive Humulin 70/30 100 unit/mL subcutaneous suspension RxNorm: 446850 20 Unit(s) SQ AC 08/05/2015 04/21/2016 Inactive with breakfast carvedilol 12.5 mg tablet RxNorm: 536976 1 Tablet(s) PO BID 06/201601/31/2016 Inactive Humulin 70/30 100 unit/mL subcutaneous suspension RxNorm: 443606 10 Unit(s) SQ AC 07/22/2015 08/04/2015 Inactive losartan 100 mg tablet RxNorm: 097161 TAKE ONE TABLET BY MOUTH DAILY 06/25/2015 06/18/2016 Inactive Lantus Solostar 100 unit/mL (3 mL) subcutaneous insulin pen RxNorm: 174284 30 Unit(s) SQ QHS 06/18/2015 08/05/2015 Inactive terazosin 2 mg capsule RxNorm: 279485 1 Capsule(s) PO daily 08/11/2015 Inactive DC the 5mg order terazosin 2 mg capsule RxNorm: 581989 1 Capsule(s) PO daily 04/13/2015 Inactive Synthroid 25 mcg tablet RxNorm: 906135 1 Tablet(s) PO daily 02/14/2017 Inactive Synthroid 25 mcg tablet RxNorm: 965595 1 Tablet(s) PO daily 04/10/2015 Inactive Lantus Solostar 100 unit/mL (3 mL) subcutaneous insulin pen RxNorm: 193712 30 Unit(s) SQ QHS 04/04/2015 06/17/2015 Inactive terazosin 5 mg tablet RxNorm: 565370 1 Tablet(s) PO daily 201404/13/2015 Inactive Lantus Solostar 100 unit/mL (3 mL) subcutaneous insulin pen RxNorm: 372009 25 Unit(s) SQ QHS 01/08/2015 04/03/2015 Inactive carvedilol 25 mg tablet RxNorm: 455973 1 Tablet(s) PO BID 01/0201/31/2015 Inactive terazosin 5 mg tablet RxNorm: 964748 1 Tablet(s) PO daily 201401/01/2015 Inactive levothyroxine 125 mcg tablet RxNorm: 972071 1 Tablet(s) PO daily 01/02/2015 01/31/2015 Inactive terazosin 5 mg tablet RxNorm: 169883 1/2 Tablet(s) PO daily 05/201501/31/2015 Inactive losartan 100 mg tablet RxNorm: 506623 1 Tablet(s) PO daily 08/201404/22/2015 Inactive losartan 100 mg tablet RxNorm: 865312 1 Tablet(s) PO daily 08/201412/23/2014 Inactive Contour Test Strips RxNorm: Miscellaneous test blood sugars BID 12/06/2014 12/05/2014 Inactive dx 250.00 Contour Test Strips RxNorm: Miscellaneous test blood sugars BID or UD 12/06/2014 06/23/2015 Inactive dx 250.00 [SAVINGS FOR NON-COVERED DRUGS -- BIN:[id number], PCN: [id number], Group: [id number], ID# [id number], Questions: . THIS IS NOT INSURANCE.] folic acid 1 mg tablet RxNorm: 529962 1 Tablet(s) PO QHS No Start Date Active Microlet Lancet RxNorm : Miscellaneous Test BID or Ud No Start Date Active 250.0 aspirin 81 mg tablet,delayed release RxNorm: 094747 1 Tablet(s) PO daily No Start Date Active Stool Softener 100 mg capsule RxNorm: 9737795 1 Capsule(s) PO every other day No Start Date Active levothyroxine 100 mcg tablet RxNorm: 833572 1 Tablet(s) PO daily No Start Date Active folic acid oral RxNorm : 4511 oral No Start Date 05/19/2017 Inactive cyanocobalamin (vit B-12) 100 mcg tablet RxNorm: 381248 1 Tablet(s) PO daily No Start Date 02/14/2017 Inactive hydrochlorothiazide 25 mg tablet RxNorm: 626746 1 Tablet(s) PO daily No Start Date 10/05/2015 Inactive Stool Softener 100 mg capsule RxNorm: 2149154 1 Capsule(s) PO daily No Start Date 05/18/2017 Inactive Humulin 70/30 100 unit/mL subcutaneous suspension RxNorm: 856924 20 Unit(s) SQ QAM No Start Date 07/21/2015 Inactive Lantus Solostar 100 unit/mL (3 mL) subcutaneous insulin pen RxNorm: 291654 20 Unit(s) SQ QHS No Start Date 01/07/2015 Inactive ferrous sulfate 325 mg (65 mg iron) tablet RxNorm: 556526 1 Tablet(s) PO daily No Start Date 05/18/2017 Inactive Medication Administered Medication Codes Instructions Start Date Status cyanocobalamin (vit B-12) 1,000 mcg/mL injection solution RxNorm: 789703 1Milliliter 08/17/2017 No longer Active cyanocobalamin (vit B-12) 1,000 mcg/mL injection solution RxNorm: 128167 1Milliliter 07/19/2017 No longer Active cyanocobalamin (vit B-12) 1,000 mcg/mL injection solution RxNorm: 077548 1Milliliter 05/19/2017 No longer Active cyanocobalamin (vit B-12) 1,000 mcg/mL injection solution RxNorm: 364393 1Milliliter 04/06/2017 No longer Active cyanocobalamin (vit B-12) 1,000 mcg/mL injection solution RxNorm: 822726 Milliliter 01/04/2017 No longer Active cyanocobalamin (vit B-12) 1,000 mcg/mL injection solution RxNorm: 793910 1Milliliter 12/10/2016 No longer Active cyanocobalamin (vit B-12) 1,000 mcg/mL injection solution RxNorm: 461533 Milliliter 10/13/2016 No longer Active cyanocobalamin (vit B-12) 1,000 mcg/mL injection solution RxNorm: 004491 1Milliliter 09/03/2016 No longer Active cyanocobalamin (vit B-12) 1,000 mcg/mL injection solution RxNorm: 299857 Milliliter 07/29/2016 No longer Active cyanocobalamin (vit B-12) 1,000 mcg/mL injection solution RxNorm: 492397 1Milliliter 06/03/2016 No longer Active cyanocobalamin (vit B-12) 1,000 mcg/mL injection solution RxNorm: 013429 Milliliter 09/15/2015 No longer Active cyanocobalamin (vit B-12) 1,000 mcg/mL injection solution RxNorm: 335968 Milliliter 09/08/2015 No longer Active cyanocobalamin (vit B-12) 1,000 mcg/mL injection solution RxNorm: 344294 Milliliter 09/01/2015 No longer Active cyanocobalamin (vit B-12) 1,000 mcg/mL injection solution RxNorm: 092106 Milliliter 08/25/2015 No longer Active Immunizations Vaccine [...] 20.4 % 05/19/2017 Cbc With Differential Ord2 [place]% 6.8 % 05/19/2017 Cbc With Differential Ord2 [...] 1.64 K/ul 05/19/2017 Cbc With Differential Ord2 [place] ABS# 0.6 K/ul 05/19/2017 Cbc With Differential Ord2 E[place] ABS# 0.2 K/ul 05/19/2017 Cbc With Differential Ord2 Baso ABS# 0.0 K/ul 05/19/2017 B12 Skb567 B12 >1500.00 pg/ml 05/19/2017 Free T4 Gru249 FREE T4 1.10 ng/dL 05/19/2017 %Hba1C Cmq594 % HbA1c 12574-8 6.8 % 05/19/2017 %Hba1C Gbh183 Gluc Ave 148 mg/dL 05/19/2017 Tsh Ord6 hTSH II 1.73 uIU/mL 05/19/2017 Comp Metabolic Duc364 NA 140 mEq/L 05/19/2017 Comp Metabolic Gsh560 K 3.8 mEq/L 05/19/2017 Comp Metabolic Lpe913 CL 108 mEq/L 05/19/2017 Comp Metabolic Whq817 CO2 21.0 mEq/L 05/19/2017 Comp Metabolic Czb644 ANION GAP 15 05/19/2017 Comp Metabolic Vmt767 GLUCOSE 207 mg/dL 05/19/2017 Comp Metabolic Ngt304 Creat 1.0 mg/dL 05/19/2017 Comp Metabolic All946 eGFR 55 ml/min/1.73m2 05/19/2017 Comp Metabolic Etp656 BUN 21 mg/dL 05/19/2017 Comp Metabolic Lds818 B/C Ratio 20.4 Ratio 05/19/2017 Comp Metabolic Gdd669 CALCIUM 9.1 mg/dL 05/19/2017 Comp Metabolic Ytv922 ALK PHOS 74 U/L 05/19/2017 Comp Metabolic Udz023 AST(SGOT) 32 U/L 05/19/2017 Comp Metabolic Tls564 ALT(SGPT) 15 U/L 05/19/2017 Comp Metabolic Shr596 BILI T 0.6 mg/dL 05/19/2017 Comp Metabolic Xzh390 ALBUMIN 3.9 g/dL 05/19/2017 Comp Metabolic Yav709 TPRO 6.2 g/dL 05/19/2017 Comp Metabolic Zgv910 GLOB 2.3 g/dL 05/19/2017 Comp Metabolic Xct584 A/G Ratio 1.6 Ratio 05/19/2017 Comp Metabolic Xok742 Osmo 288 mOsmo 05/19/2017 Cbc With Differential [...] 29.3 pg 12/10/2016 Cbc With Differential Ord2 [place]% 7.1 % 12/10/2016 Cbc With Differential Ord2 [...] 2.50 K/ul 12/10/2016 Cbc With Differential Ord2 [place] ABS# 0.5 K/ul 12/10/2016 Cbc With Differential Ord2 E[place] ABS# 0.1 K/ul 12/10/2016 Cbc With Differential Ord2 Baso ABS# 0.0 K/ul 12/10/2016 B12 Ytw918 B12 222.00 pg/ml 12/10/2016 %Hba1C Mtz315 % HbA1c 47227-4 7.5 % 11/16/2016 %Hba1C Fmg803 Gluc Ave 169 mg/dL 11/16/2016 Free T4 Tmh801 FREE T4 1.03 ng/dL 11/16/2016 Comp Metabolic Wjv520 NA 138 mEq/L 11/16/2016 Comp Metabolic Mkh580 K 3.8 mEq/L 11/16/2016 Comp Metabolic Cbo607 CL 103 mEq/L 11/16/2016 Comp Metabolic Rjs015 CO2 26.0 mEq/L 11/16/2016 Comp Metabolic Bhq385 ANION GAP 13 11/16/2016 Comp Metabolic Ixj591 GLUCOSE 235 mg/dL 11/16/2016 Comp Metabolic Hxx835 Creat 0.9 mg/dL 11/16/2016 Comp Metabolic Rhs954 eGFR 62 ml/min/1.73m2 11/16/2016 Comp Metabolic Vfl510 BUN 20 mg/dL 11/16/2016 Comp Metabolic Sxl837 B/C Ratio 21.7 Ratio 11/16/2016 Comp Metabolic Zjc539 CALCIUM 8.9 mg/dL 11/16/2016 Comp Metabolic Wws155 ALK PHOS 75 U/L 11/16/2016 Comp Metabolic Fbu515 AST(SGOT) 30 U/L 11/16/2016 Comp Metabolic Yti566 ALT(SGPT) 13 U/L 11/16/2016 Comp Metabolic Xxl336 BILI T 0.6 mg/dL 11/16/2016 Comp Metabolic Hmt598 ALBUMIN 3.8 g/dL 11/16/2016 Comp Metabolic Fsm044 TPRO 6.8 g/dL 11/16/2016 Comp Metabolic Tho445 GLOB 3.1 g/dL 11/16/2016 Comp Metabolic Jjc516 A/G Ratio 1.2 Ratio 11/16/2016 Comp Metabolic Iuq523 Osmo 286 mOsmo 11/16/2016 Tsh Ord6 hTSH II 2.50 uIU/mL 11/16/2016 Tsh Ord6 hTSH II 3.18 uIU/mL 05/21/2016 Lipid Ord30 CHOL 212 mg/dL 05/21/2016 Lipid Ord30 HDL 43.0 mg/dl 05/21/2016 Lipid Ord30 TRIG 164 mg/dL 05/21/2016 Lipid Ord30 LDL 136 mg/dL 05/21/2016 Lipid Ord30 C/HDL 4.9 Ratio 05/21/2016 B12 Oln584 B12 159.00 pg/ml 05/21/2016 %Hba1C Nst530 % HbA1c 85829-5 7.5 % 05/21/2016 %Hba1C Khj167 Gluc Ave 169 mg/dL 05/21/2016 Folate Ord36 Folate >23.80 ng/mL 05/21/2016 Free T4 Uat439 FREE T4 1.03 ng/dL 05/21/2016 CHEM 14 8048559 AST 33 U/L 03/15/2016 CHEM 14 7674669 ALT 13 U/L 03/15/2016 CHEM 14 2574312 BUN 18 mg/dL 03/15/2016 CHEM 14 7501717 ALBUMIN 3.9 g/dL 03/15/2016 CHEM 14 8211021 CHLORIDE 105 mmol/L 03/15/2016 CHEM 14 4737047 Bili Total 0.4 mg/dL 03/15/2016 CHEM 14 8400423 ALK PHOS 60 U/L 03/15/2016 CHEM 14 1389348 SODIUM 138 mmol/L 03/15/2016 CHEM 14 9502113 CREATININE 0.99 mg/dL 03/15/2016 CHEM 14 9791884 CALCIUM 9.4 mg/dL 03/15/2016 CHEM 14 7455258 POTASSIUM 3.8 mmol/L 03/15/2016 CHEM 14 5422906 TOTAL PROTEIN 6.7 g/dL 03/15/2016 CHEM 14 2657420 GLUCOSE 109 mg/dL 03/15/2016 CHEM 14 1792138 Bicarbonate 27 mmol/L 03/15/2016 CHEM 14 6541926 AGAP 6 mmol/L 03/15/2016 GFR CALC 5528753 GFR Non Afr Amr 54 mL/min 03/15/2016 GFR CALC 0828944 GFR Afr Amr >60 mL/min 03/15/2016 B12 Sow078 B12 46.00 pg/ml 08/07/2015 Iron Ord72 Iron [...] Ord2 RDW 16.6 % 08/05/2015 Free T4 Vnh179 FREE T4 1.33 ng/dL 08/05/2015 Comp Metabolic Pwq685 NA 137 mEq/L 08/05/2015 Comp Metabolic Sdk946 K 4.5 mEq/L 08/05/2015 Comp Metabolic Vgp339 CL 104 mEq/L 08/05/2015 Comp Metabolic Wwt042 CO2 26.0 mEq/L 08/05/2015 Comp Metabolic Kyu195 ANION GAP 12 08/05/2015 Comp Metabolic Anu291 GLUCOSE 146 mg/dL 08/05/2015 Comp Metabolic Ske918 Creat 1.0 mg/dL 08/05/2015 Comp Metabolic Bda082 eGFR 56 ml/min/1.73m2 08/05/2015 Comp Metabolic Qma900 BUN 23 mg/dL 08/05/2015 Comp Metabolic Zfx729 B/C Ratio 22.8 Ratio 08/05/2015 Comp Metabolic Sdg174 CALCIUM 9.3 mg/dL 08/05/2015 Comp Metabolic Vnt134 ALK PHOS 71 U/L 08/05/2015 Comp Metabolic Xgh302 AST(SGOT) 33 U/L 08/05/2015 Comp Metabolic Hma296 ALT(SGPT) 15 U/L 08/05/2015 Comp Metabolic Izm058 BILI T 0.6 mg/dL 08/05/2015 Comp Metabolic Ymm898 ALBUMIN 3.9 g/dL 08/05/2015 Comp Metabolic Rek463 TPRO 6.5 g/dL 08/05/2015 Comp Metabolic Rss839 GLOB 2.6 g/dL 08/05/2015 Comp Metabolic Eor664 A/G Ratio 1.5 Ratio 08/05/2015 Comp Metabolic Dug986 Osmo 280 mOsmo 08/05/2015 Tsh Ord6 hTSH II 0.36 uIU/mL 08/05/2015 %Hba1C Gfl906 % HbA1c 00529-9 8.1 % 08/05/2015 %Hba1C Reb621 Gluc Ave 186 mg/dL 08/05/2015 Free T4 Kam287 FREE T4 0.91 ng/dL 04/11/2015 %Hba1C Ttl499 % HbA1c 92356-2 8.3 % 04/10/2015 %Hba1C Jwz797 Gluc Ave 192 mg/dL 04/10/2015 Cbc With [...] Ord2 RDW 15.8 % 04/10/2015 Comp Metabolic Ykz847 NA 134 mEq/L 04/10/2015 Comp Metabolic Fjj529 K 4.1 mEq/L 04/10/2015 Comp Metabolic Col646 CL 105 mEq/L 04/10/2015 Comp Metabolic Yjm266 CO2 26.0 mEq/L 04/10/2015 Comp Metabolic Mso135 ANION GAP 7 04/10/2015 Comp Metabolic Fxo358 GLUCOSE 126 mg/dL 04/10/2015 Comp Metabolic Skf890 Creat 1.0 mg/dL 04/10/2015 Comp Metabolic Ykk304 eGFR 58 ml/min/1.73m2 04/10/2015 Comp Metabolic Xho504 BUN 29 mg/dL 04/10/2015 Comp Metabolic Ovu650 B/C Ratio 29.6 Ratio 04/10/2015 Comp Metabolic Glm355 CALCIUM 9.3 mg/dL 04/10/2015 Comp Metabolic Mgc230 ALK PHOS 63 U/L 04/10/2015 Comp Metabolic Uvn772 AST(SGOT) 31 U/L 04/10/2015 Comp Metabolic Rvx002 ALT(SGPT) 14 U/L 04/10/2015 Comp Metabolic Fsv395 BILI T 0.6 mg/dL 04/10/2015 Comp Metabolic Fev767 ALBUMIN 3.9 g/dL 04/10/2015 Comp Metabolic Aju353 TPRO 6.3 g/dL 04/10/2015 Comp Metabolic Wqe137 GLOB 2.4 g/dL 04/10/2015 Comp Metabolic Fia442 A/G Ratio 1.6 Ratio 04/10/2015 Comp Metabolic Zlu929 Osmo 276 mOsmo 04/10/2015 Tsh Ord6 hTSH [...] Procedure Codes Date THER/PROPH/DIAG INJ SC/IM CPT-4: 10631 08/17/2017 VITAMIN B12 INJECTION CPT-4: J3420 08/17/2017 THER/PROPH/DIAG INJ SC/IM CPT-4: 48705 07/19/2017 VITAMIN B12 INJECTION CPT-4: J3420 07/19/2017 THER/PROPH/DIAG INJ SC/IM CPT-4: 56327 05/19/2017 VITAMIN B12 INJECTION CPT-4: J3420 05/19/2017 THER/PROPH/DIAG INJ SC/IM CPT-4: 26927 04/06/2017 VITAMIN B12 INJECTION CPT-4: J3420 04/06/2017 THER/PROPH/DIAG INJ SC/IM CPT-4: 34794 01/04/2017 VITAMIN B12 INJECTION CPT-4: J3420 01/04/2017 THER/PROPH/DIAG INJ SC/IM CPT-4: 63206 12/10/2016 VITAMIN B12 INJECTION CPT-4: J3420 12/10/2016 THER/PROPH/DIAG INJ SC/IM CPT-4: 03310 10/13/2016 TRIAMCINOLONE ACET INJ NOS CPT-4: J3301 10/13/2016 THER/PROPH/DIAG INJ SC/IM CPT-4: 86967 09/03/2016 VITAMIN B12 INJECTION CPT-4: J3420 09/03/2016 THER/PROPH/DIAG INJ SC/IM CPT-4: 63194 07/29/2016 VITAMIN B12 INJECTION CPT-4: J3420 07/29/2016 THER/PROPH/DIAG INJ SC/IM CPT-4: 64965 06/03/2016 VITAMIN B12 INJECTION CPT-4: J3420 06/03/2016 PNEUMOCOCCAL VACC [address]: 97986271 CPT-4: 60173 04/22/2016 ADMIN PNEUMOCOCCAL VACCINE SNOMED CT: 54139356 CPT-4: G0009 04/22/2016 VITAMIN B12 INJECTION CPT-4: J3420 09/15/2015 THER/PROPH/DIAG INJ SC/IM CPT-4: 99608 09/15/2015 THER/PROPH/DIAG INJ SC/IM CPT-4: 90946 09/08/2015 VITAMIN B12 INJECTION CPT-4: J3420 09/08/2015 THER/PROPH/DIAG INJ SC/IM CPT-4: 39122 09/01/2015 VITAMIN B12 INJECTION CPT-4: J3420 09/01/2015 THER/PROPH/DIAG INJ SC/IM CPT-4: 27606 08/25/2015 VITAMIN B12 INJECTION CPT-4: J3420 08/25/2015 Vital Signs Date Vital 08/17/2017 Blood Pressure 1: 144/70 Code : 8480-6 BMI: 41.8 Code : 38073-5 Heart Rate 1 : 63 bpm Height: 4'11" SpO2: 97% Weight: 207 lbs 07/19/2017 Blood Pressure 1: 142/74 Code : 8480-6 BMI: 41.4 Code : 13433-4 Heart Rate 1 : 71 bpm Height: 4'11" SpO2: 96% Weight: 205 lbs 05/19/2017 Blood Pressure 1: 148/76 Code : 8480-6 BMI: 42.8 Code : 55579-3 Heart Rate 1 : 72 bpm Height: 4'11" SpO2: 94% Weight: 212 lbs 02/15/2017 Blood Pressure 1: 154/70 Code : 8480-6 BMI: 42.5 Code : 91374-0 Heart Rate 1 : 68 bpm Height: 4'11" SpO2: 97% Weight: 210 lbs 8 oz 11/16/2016 Blood Pressure 1: 142/78 Code : 8480-6 BMI: 41.6 Code : 11922-8 Heart Rate 1 : 68 bpm Height: 4'11" SpO2: 95% Temperature: 36.0 (C) / 96.8 (F) Weight: 206 lbs 08/19/2016 Blood Pressure 1: 120/74 Code : 8480-6 BMI: 41.6 Code : 36184-2 Heart Rate 1 : 75 bpm Height: 4'11" SpO2: 95% Weight: 206 lbs 07/15/2016 Blood Pressure 1: 140/76 Code : 8480-6 BMI: 42.0 Code : 65293-3 Heart Rate 1 : 76 bpm Height: 4'11" SpO2: 96% Weight: 208 lbs 06/03/2016 Blood Pressure 1: 130/78 Code : 8480-6 BMI: 42.8 Code : 87019-4 Heart Rate 1 : 72 bpm Height: 4'11" SpO2: 98% Weight: 212 lbs 04/22/2016 Blood Pressure 1: 142/84 Code : 8480-6 BMI: 41.8 Code : 90623-9 Heart Rate 1 : 86 bpm Height: 4'11" SpO2: 92% Weight: 207 lbs 01/22/2016 Blood Pressure 1: 162/64 Code : 8480-6 BMI: 41.2 Code : 37019-0 Heart Rate 1 : 70 bpm Height: 4'11" SpO2: 97% Weight: 204 lbs 10/23/2015 Blood Pressure 1: 130/70 Code : 8480-6 BMI: 40.4 Code : 52860-1 Heart Rate 1 : 72 bpm Height: 4'11" SpO2: 95% Weight: 200 lbs 09/12/2015 Blood Pressure 1: 142/62 Code : 8480-6 BMI: 39.4 Code : 35544-9 Heart Rate 1 : 63 bpm Height: 4'11" SpO2: 96% Weight: 195 lbs 08/05/2015 Blood Pressure 1: 144/60 Code : 8480-6 BMI: 41.0 Code : 21278-0 Heart Rate 1 : 92 bpm Height: 4'11" SpO2: 90% SpO2: 97% Weight: 203 lbs 04/03/2015 Blood Pressure 1: 142/68 Code : 8480-6 BMI: 40.6 Code : 18742-7 Heart Rate 1 : 77 bpm Height: 4'11" SpO2: 95% Weight: 201 lbs 01/30/2015 Blood Pressure 1: 150/72 Code : 8480-6 BMI: 40.2 Code : 48398-1 Heart Rate 1 : 64 bpm Height: 4'11" Weight: 199 lbs 01/02/2015 Blood Pressure 1: 136/72 Code : 8480-6 BMI: 39.8 Code : 02083-5 Heart Rate 1 : 68 bpm Height: [...] data Encounters Encounter Performer Location Codes Date [id number] EST. PATIENT, LEVEL IV Diagnosis: Essential (primary) hypertension[ICD10: I10] Diagnosis: Type 2 diabetes mellitus with hyperglycemia[ICD10: E11.65] Diagnosis: Vitamin B12 deficiency anemia due to intrinsic factor deficiency[ ICD10: D51.0] Chasity Knox MD, [facility] CPT-4: 80225 [id number] EST. PATIENT, LEVEL IV Diagnosis: Type 2 diabetes mellitus with hyperglycemia[ICD10: E11.65] Diagnosis: Essential (primary) hypertension[ICD10: I10] Diagnosis: Vitamin B12 deficiency anemia due to intrinsic factor deficiency[ ICD10: D51.0] Chasity Knox MD, [facility] CPT-4: 94111 [id number]) 23652 EST. PATIENT, LEVEL IV Diagnosis: Essential (primary) hypertension[ICD10: I10] Diagnosis: Type 2 diabetes mellitus with hyperglycemia[ICD10: E11.65] Diagnosis: Hypothyroidism, unspecified[ICD10: E03.9] Diagnosis: Vitamin B12 deficiency anemia due to intrinsic factor deficiency[ ICD10: D51.0] Diagnosis: Chronic kidney disease, stage 3 (moderate)[ICD10: N18.3] Giselle Knox MD , [facility] CPT-4: 41446 05/19/2017 [id number]) 68203 EST. PATIENT, LEVEL IV Diagnosis: Essential (primary) hypertension[ICD10: I10] Diagnosis: Type 2 diabetes mellitus with hyperglycemia[ICD10: E11.65] Diagnosis: Hypothyroidism, unspecified[ICD10: E03.9] Giselle Knox MD, [facility] CPT-4: 94361 02/15/2017 [id number]) 80900 EST. PATIENT, LEVEL IV Diagnosis: Type 2 diabetes mellitus with hyperglycemia[ICD10: E11.65] Diagnosis: Cough[ICD10: R05] Diagnosis: Acute upper respiratory infection, unspecified[ICD10: J06.9] Diagnosis: Hypothyroidism, unspecified[ICD10: E03.9] Diagnosis: Chronic kidney disease, stage 3 (moderate)[ICD10: N18.3] Giselle Knox MD , [facility] CPT-4: 79255 11/16/2016 [id number]) 33950 EST. PATIENT, LEVEL IV Diagnosis: Type 2 diabetes mellitus with hyperglycemia[ICD10: E11.65] Diagnosis: Hypothyroidism, unspecified[ICD10: E03.9] Diagnosis: Essential (primary) hypertension[ICD10: I10] Giselle Knox MD, [facility] CPT-4: 71607 08/19/2016 ([id number]) 53368 EST. PATIENT, LEVEL III Diagnosis: Type 2 diabetes mellitus with hyperglycemia[ICD10: E11.65] Giselle Knox MD, [facility] CPT-4: 40195 07/15/2016 ([id number]) 61462 EST. 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 PATIENT, LEVEL III Diagnosis: Type 2 diabetes mellitus with hyperglycemia[ICD10: E11.65] Diagnosis: Essential (primary) hypertension[ICD10: I10] Diagnosis: Chronic kidney disease, stage 3 (moderate)[ICD10: N18.3] Diagnosis: VACCIN STREP PNEUMONIAE[ICD10: Z23] Giselle Knox MD, [facility] CPT-4: 56502 04/22/2016 11344 EST. PATIENT, LEVEL IV Diagnosis: Type 2 diabetes mellitus with hyperglycemia[ICD10: E11.65] Diagnosis: Essential (primary) hypertension[ICD10: I10] Chasity Knox MD, [facility] CPT-4: 68349 01/22/2016 ([id number]) 67764 EST. PATIENT, LEVEL III Diagnosis: Type 2 diabetes mellitus with hyperglycemia[ICD10: E11.65] Diagnosis: Essential (primary) hypertension[ICD10: I10] Giselle Knox MD, [facility] CPT-4: 22407 10/23/2015 [id number] EST. 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 PATIENT, LEVEL IV Diagnosis: Essential (primary) hypertension[ICD10: I10] Diagnosis: Type 2 diabetes mellitus with hyperglycemia[ICD10: E11.65] Diagnosis: Hypothyroidism, unspecified[ICD10: E03.9] Giselle Knox MD, [facility] CPT-4: 25616 08/05/2015 ([id number]) 57717 EST. PATIENT, LEVEL III Diagnosis: ESSENTIAL HYPERTENSION[ICD9: 401.9] Diagnosis: DIABETES TYPE II[ICD9: 250.00] Jennifer Knox MD, [facility] CPT- 4: 40582 04/03/2015 ([id number]) 48200 EST. PATIENT, LEVEL IV Diagnosis: ESSENTIAL HYPERTENSION[ICD9: 401.9] Diagnosis: DIABETES TYPE II[ICD9: 250.00] Diagnosis: Hypothyroidism[ICD9: 244.9] Giselle Knox MD, [facility] CPT-4: 86607 01/30/2015 ([id number]) OFFICE VISIT, NEW - LEVEL 4 Diagnosis: ESSENTIAL HYPERTENSION[ICD9: 401.9] Diagnosis: DIABETES TYPE II[ICD9: 250.00] Diagnosis: Impacted cerumen[ICD9: 380.4] Jennifer Knox MD, [facility] CPT- 4: 15596 01/02/2015 Plan of Care Planned Activity Notes Codes Status Date Appointment: [phone] [phone] [place] ([facility] min) Moderate 08/17/2017 Patient Education: Patient Medication Summary Completed 08/17/2017 App[facility]ment: [phone] [facility] [place] ([place] min) Moderate 07/19/2017 Patient Education: Patient Medication Summary Completed 07/19/2017 [facility]ment[phone] [facility] [place] ([place]) Moderate 06/13/2017 App[facility]ment: [facility] [phone] [phone] [place] (30 min) Complex 05/19/2017 Patient Education: Patient Medication Summary Completed 05/19/2017 Patient Education: Obesity Completed 05/19/2017 Appointment: Injection 04/06/2017 Patient Education: Patient Medication Summary Completed 04/06/2017 Appointment: Giselle Mccoy WPtel: [phone] [place] (15 min) Moderate 02/15/2017 Patient Education: Patient Medication Summary Completed 02/15/2017 Patient Education: Obesity Completed 02/15/2017 Appointment: Injection 01/04/2017 Patient Education: Patient Medication Summary Completed 01/04/2017 Appointment: Injection 12/10/2016 Patient Education: Patient Medication Summary Completed 12/10/2016 Appointment: Giselle Mccoy WPtel: [address] [place], [place] [phone] [place] (15 min) Moderate 11/16/2016 Patient Education: Patient Medication Summary Completed 11/16/2016 Patient Education: Obesity Completed 11/16/2016 Appointment: Injection 10/13/2016 Patient Education: Patient Medication Summary Completed 10/13/2016 Appointment: Injection 09/03/2016 Patient Education: Patient Medication Summary Completed 09/03/2016 Appointment: Giselle Mccoy WPtel: [address] [place], [place] [phone] [place] (15 min) Moderate 08/19/2016 Patient Education: Patient Medication Summary Completed 08/19/2016 Patient Education: Obesity Completed 08/19/2016 Care Plan: Tsh Cancelled 08/19/2016 Care Plan: %Hba1C LOINC : [id number] Cancelled 08/19/2016 Care Plan: Lipid Cancelled 08/19/2016 Care Plan: Free T4 patient coming back next week Cancelled 08/19/2016 Appointment: Injection 07/29/2016 Patient Education: Patient Medication Summary Completed 07/29/2016 Appointment: Giselle Mccoy WPtel: [address] [place], [place] [phone] [place] (30 min) Complex 07/22/2016 Appointment: Giselle Mccoy WPtel: [address] [place], [place] [phone] [place] (30 min) Complex 07/15/2016 Patient Education: Patient Medication Summary Completed 07/15/2016 Patient Education: Obesity Completed 07/15/2016 Appointment: [facility] [phone] [phone] (15 min) Moderate 06/03/2016 Patient Education: Patient Medication Summary Completed 06/03/2016 Patient Education: Obesity Completed 06/03/2016 Appointment: Giselle Mccoy WPtel: [phone] [phone] (15 min) Moderate 04/22/2016 Patient Education: Patient [...] Completed 01/30/2015 Appointment: [facility] [phone] [facility] [place] ([place] New Patient 01/02/2015 Patient Education: Patient Medication Summary Completed 01/02/2015 Patient Education: Hypertension Completed 01/02/2015 Instructions No Instructions
--- OUTSIDE RECORDS SUMMARY | 2018-06-17 11:12 | XMS REPORT | CCD ---
Author Author [facility] Organization [facility] Address [address] [place] [address] Phone Care Team Providers Care Flight Kitchen Manager Name Role Phone PP Unavailable CCM Unavailable Summary Purpose Interface Exchange Insurance Providers Payer name Policy type / Coverage type Covered republican ID Effective Begin Date Effective End Date [facility] Commercial Insurance [id number] Unknown Family history Runs in the family Diagnosis Age At Onset Hypertension Unknown Social History Social History Element Codes Description Effective Dates Marital status Unknown Freeman 05/19/2017 Number of children Unknown 3 01/02/2015 Employment Unknown Retired [employer] 01/02/2015 Allergies, Adverse Reactions, Alerts Allergies, Adverse Reactions, Alerts data not found Past Medical History Illness Codes Condition Status Onset Date Resolved Date Vitamin B12 deficiency anemia due to intrinsic factor deficiency ICD-9: 281.0 ICD-10: D51.0 Active 07/28/2016 Unknown Chronic kidney disease, stage 3 (moderate) ICD-9: 585.3 ICD-10: N18.3 Active 06/02/2016 Unknown Essential (primary) hypertension ICD-9: 401.9 ICD-10: I10 Active 01/01/2015 Unknown Hypothyroidism, unspecified ICD-9: 244.9 ICD-10: E03.9 Active 08/19/2016 Unknown Type 2 diabetes mellitus with hyperglycemia ICD-9: 250.00 ICD-10: E11.65 Active 07/14/2016 Unknown Acute upper respiratory infection, unspecified ICD-9: [...] Problems Condition Codes Effective Dates Condition Status Vitamin B12 deficiency anemia due to intrinsic factor deficiency ICD-9: 281.0 ICD-10: D51.0 07/28/2016 Active Chronic kidney disease, stage 3 (moderate) ICD-9: 585.3 ICD-10: N18.3 06/02/2016 Active Essential (primary) hypertension ICD-9: 401.9 ICD-10: I10 01/01/2015 Active Hypothyroidism, unspecified ICD-9: 244.9 ICD-10: E03.9 08/19/2016 Active Type 2 diabetes mellitus with hyperglycemia ICD-9: 250.00 ICD-10: E11.65 07/14/2016 Active Acute upper respiratory infection, unspecified ICD-9: [...] Start Date Stop Date Status Fill Instructions carvedilol 12.5 mg tablet RxNorm: 624719 TAKE ONE TABLET BY MOUTH TWICE A DAY 08/10/2017 08/04/2018 Active cyanocobalamin (vit B-12) 1,000 mcg/mL injection solution RxNorm: 352047 1 Milliliter(s) Inj 07/19/2017 07/19/2017 Inactive Humulin 70/30 100 unit/mL subcutaneous suspension RxNorm: 339054 14 Unit(s) SQ QAM 07/06/2017 No Stop Date Active Lantus Solostar 100 unit/mL (3 mL) subcutaneous insulin pen RxNorm: 514476 26 Unit(s) SQ QHS 07/06/2017 No Stop Date Active losartan 100 mg tablet RxNorm: 233001 TAKE ONE TABLET BY MOUTH DAILY 06/07/2017 04/02/2018 Active Lantus Solostar 100 unit/mL (3 mL) subcutaneous insulin pen RxNorm: 793333 28 Unit(s) SQ QHS 05/19/2017 07/05/2017 Inactive cyanocobalamin (vit B-12) 1,000 mcg/mL injection solution RxNorm: 838827 1 Milliliter(s) Inj 05/19/2017 05/19/2017 Inactive terazosin 2 mg capsule RxNorm: 746893 TAKE ONE CAPSULE BY MOUTH DAILY 05/16/2017 10/12/2017 Active cyanocobalamin (vit B-12) 1,000 mcg/mL injection solution RxNorm: 600172 1 Milliliter(s) Inj 04/06/2017 04/06/2017 Inactive cyanocobalamin (vit B-12) 1,000 mcg/mL injection solution RxNorm: 168999 Milliliter(s) Inj 01/04/2017 01/04/2017 Inactive Humulin 70/30 100 unit/mL subcutaneous suspension RxNorm: 320283 18 Unit(s) SQ QAM 12/22/2016 06/04/2017 Inactive cyanocobalamin (vit B-12) 1,000 mcg/mL injection solution RxNorm: 030029 1 Milliliter(s) Inj 12/10/2016 12/10/2016 Inactive Zithromax Z-Jose 250 mg tablet RxNorm: 995862 1 Tablet(s) PO UD 11/16/2016 11/20/2016 Inactive terazosin 2 mg capsule RxNorm: 323123 TAKE ONE CAPSULE BY MOUTH DAILY 11/08/2016 05/06/2017 Inactive Lantus Solostar 100 unit/mL (3 mL) subcutaneous insulin pen RxNorm: 084680 INJECT 35 UNITS UNDER THE SKIN EVERY NIGHT AT BEDTIME 201607/18/2017 Inactive cyanocobalamin (vit B-12) 1,000 mcg/mL injection solution RxNorm: 369514 Milliliter(s) Inj 10/13/2016 10/13/2016 Inactive cyanocobalamin (vit B-12) 1,000 mcg/mL injection solution RxNorm: 812650 1 Milliliter(s) Inj 09/03/2016 09/03/2016 Inactive Contour Test Strips RxNorm: TEST BLOOD SUGAR TWO TIMES A DAY E11.65 08/19/2016 04/10/2018 Active carvedilol 12.5 mg tablet RxNorm: 256524 TAKE ONE TABLET BY MOUTH TWICE A DAY 08/05/2016 01/01/2017 Inactive carvedilol 12.5 mg tablet RxNorm: 961882 TAKE ONE TABLET BY MOUTH TWICE A DAY 08/05/2016 01/01/2017 Inactive carvedilol 12.5 mg tablet RxNorm: 258368 1 Tablet(s) PO BID 05/201701/30/2017 Inactive cyanocobalamin (vit B-12) 1,000 mcg/mL injection solution RxNorm: 265489 Milliliter(s) Inj 07/29/2016 07/29/2016 Inactive Lantus Solostar 100 unit/mL (3 mL) subcutaneous insulin pen RxNorm: 815004 30 Unit(s) SQ QHS 07/15/2016 05/18/2017 Inactive Humulin 70/30 100 unit/mL subcutaneous suspension RxNorm: 142806 18 Unit(s) SQ QAM 07/15/2016 12/21/2016 Inactive losartan 100 mg tablet RxNorm: 195792 TAKE ONE TABLET BY MOUTH DAILY 07/08/2016 06/02/2017 Inactive terazosin 2 mg capsule RxNorm: 180715 TAKE ONE CAPSULE BY MOUTH DAILY 06/10/2016 11/06/2016 Inactive cyanocobalamin (vit B-12) 1,000 mcg/mL injection solution RxNorm: 631175 1 Milliliter(s) Inj 06/03/2016 06/03/2016 Inactive Humulin 70/30 100 unit/mL subcutaneous suspension RxNorm: 832214 Unit(s) INJECT 10 UNITS UNDER THE SKIN 06/01/20162015 Inactive Request already responded to by other means (e.g. phone or fax) Humulin 70/30 100 unit/mL subcutaneous suspension RxNorm: 219002 INJECT 10 UNITS UNDER THE SKIN BEFORE MEALS 06/01/201601/2016 Inactive Request already responded to by other means (e.g. phone or fax) Lantus Solostar 100 unit/mL (3 mL) subcutaneous insulin pen RxNorm: 022541 35 Unit(s) SQ QHS 05/26/2016 07/14/2016 Inactive Humulin 70/30 100 unit/mL subcutaneous suspension RxNorm: 509856 10 Unit(s) SQ QAM 05/24/2016 10/02/2016 Inactive Humulin 70/30 100 unit/mL subcutaneous suspension RxNorm: 568200 21 Unit(s) SQ QAM 05/24/2016 05/23/2016 Inactive Lantus Solostar 100 unit/mL (3 mL) subcutaneous insulin pen RxNorm: 745338 32 Unit(s) SQ QHS 04/22/2016 05/25/2016 Inactive Humulin 70/30 100 unit/mL subcutaneous suspension RxNorm: 762829 21 Unit(s) SQ QAM 04/22/2016 05/24/2016 Inactive with breakfast hydrochlorothiazide 25 mg tablet RxNorm: 869144 TAKE ONE TABLET BY MOUTH DAILY 02/04/2016 02/16/2016 Inactive terazosin 2 mg capsule RxNorm: 333573 Capsule(s) TAKE ONE CAPSULE BY MOUTH DAILY. 12/01/2015 05/28/2016 Inactive Humulin 70/30 100 unit/mL subcutaneous suspension RxNorm: 031817 INJECT 10 UNITS UNDER THE SKIN BEFORE MEALS 11/06/2015 Inactive hydrochlorothiazide 25 mg tablet RxNorm: 762549 1 Tablet(s) PO daily 10/06/2015 02/02/2016 Inactive cyanocobalamin (vit B-12) 1,000 mcg/mL injection solution RxNorm: 649839 Milliliter(s) Inj 09/15/2015 09/15/2015 Inactive Humulin 70/30 100 unit/mL subcutaneous suspension RxNorm: 184769 INJECT 10 UNITS UNDER THE SKIN BEFORE MEALS 09/08/2015 Inactive cyanocobalamin (vit B-12) 1,000 mcg/mL injection solution RxNorm: 695638 Milliliter(s) Inj 09/08/2015 09/08/2015 Inactive terazosin 2 mg capsule RxNorm: 020632 TAKE ONE CAPSULE BY MOUTH DAILY. DISCONTINUE 5 MG CAPSULES 09/01/201511/28 Inactive cyanocobalamin (vit B-12) 1,000 mcg/mL injection solution RxNorm: 229237 Milliliter(s) Inj 09/01/2015 09/01/2015 Inactive cyanocobalamin (vit B-12) 1,000 mcg/mL injection solution RxNorm: 783303 Milliliter(s) Inj 08/25/2015 08/25/2015 Inactive levothyroxine 112 mcg tablet RxNorm: 592012 1 Tablet(s) PO daily 08/06/2015 02/14/2017 Inactive Lantus Solostar 100 unit/mL (3 mL) subcutaneous insulin pen RxNorm: 179577 35 Unit(s) SQ QHS 08/06/2015 04/21/2016 Inactive Humulin 70/30 100 unit/mL subcutaneous suspension RxNorm: 773957 20 Unit(s) SQ AC 08/05/2015 04/21/2016 Inactive with breakfast carvedilol 12.5 mg tablet RxNorm: 957073 1 Tablet(s) PO BID 06/201601/31/2016 Inactive Humulin 70/30 100 unit/mL subcutaneous suspension RxNorm: 485244 10 Unit(s) SQ AC 07/22/2015 08/04/2015 Inactive losartan 100 mg tablet RxNorm: 624422 TAKE ONE TABLET BY MOUTH DAILY 06/25/2015 06/18/2016 Inactive Lantus Solostar 100 unit/mL (3 mL) subcutaneous insulin pen RxNorm: 343740 30 Unit(s) SQ QHS 06/18/2015 08/05/2015 Inactive terazosin 2 mg capsule RxNorm: 092994 1 Capsule(s) PO daily 08/11/2015 Inactive DC the 5mg order terazosin 2 mg capsule RxNorm: 284950 1 Capsule(s) PO daily 04/13/2015 Inactive Synthroid 25 mcg tablet RxNorm: 466111 1 Tablet(s) PO daily 02/14/2017 Inactive Synthroid 25 mcg tablet RxNorm: 335093 1 Tablet(s) PO daily 04/10/2015 Inactive Lantus Solostar 100 unit/mL (3 mL) subcutaneous insulin pen RxNorm: 681197 30 Unit(s) SQ QHS 04/04/2015 06/17/2015 Inactive terazosin 5 mg tablet RxNorm: 822542 1 Tablet(s) PO daily 201404/13/2015 Inactive Lantus Solostar 100 unit/mL (3 mL) subcutaneous insulin pen RxNorm: 659956 25 Unit(s) SQ QHS 01/08/2015 04/03/2015 Inactive carvedilol 25 mg tablet RxNorm: 316853 1 Tablet(s) PO BID 01/0201/31/2015 Inactive terazosin 5 mg tablet RxNorm: 303001 1 Tablet(s) PO daily 201401/01/2015 Inactive levothyroxine 125 mcg tablet RxNorm: 346901 1 Tablet(s) PO daily 01/02/2015 01/31/2015 Inactive terazosin 5 mg tablet RxNorm: 167999 1/2 Tablet(s) PO daily 05/201501/31/2015 Inactive losartan 100 mg tablet RxNorm: 331829 1 Tablet(s) PO daily 08/201404/22/2015 Inactive losartan 100 mg tablet RxNorm: 286737 1 Tablet(s) PO daily 08/201412/23/2014 Inactive Contour Test Strips RxNorm: Miscellaneous test blood sugars BID 12/06/2014 12/05/2014 Inactive dx 250.00 Contour Test Strips RxNorm: Miscellaneous test blood sugars BID or UD 12/06/2014 06/23/2015 Inactive dx 250.00 [SAVINGS FOR NON-COVERED DRUGS -- BIN:[id number], PCN: [id number], Group: [id number], ID# [id number], Questions: . THIS IS NOT INSURANCE.] folic acid 1 mg tablet RxNorm: 624683 1 Tablet(s) PO QHS No Start Date Active Microlet Lancet RxNorm : Miscellaneous Test BID or Ud No Start Date Active 250.0 aspirin 81 mg tablet,delayed release RxNorm: 703335 1 Tablet(s) PO daily No Start Date Active Stool Softener 100 mg capsule RxNorm: 5059479 1 Capsule(s) PO every other day No Start Date Active levothyroxine 100 mcg tablet RxNorm: 989150 1 Tablet(s) PO daily No Start Date Active folic acid oral RxNorm : 4511 oral No Start Date 05/19/2017 Inactive cyanocobalamin (vit B-12) 100 mcg tablet RxNorm: 065396 1 Tablet(s) PO daily No Start Date 02/14/2017 Inactive hydrochlorothiazide 25 mg tablet RxNorm: 639332 1 Tablet(s) PO daily No Start Date 10/05/2015 Inactive Stool Softener 100 mg capsule RxNorm: 0389337 1 Capsule(s) PO daily No Start Date 05/18/2017 Inactive Humulin 70/30 100 unit/mL subcutaneous suspension RxNorm: 909552 20 Unit(s) SQ QAM No Start Date 07/21/2015 Inactive Lantus Solostar 100 unit/mL (3 mL) subcutaneous insulin pen RxNorm: 554263 20 Unit(s) SQ QHS No Start Date 01/07/2015 Inactive ferrous sulfate 325 mg (65 mg iron) tablet RxNorm: 111900 1 Tablet(s) PO daily No Start Date 05/18/2017 Inactive Medication Administered Medication Codes Instructions Start Date Status cyanocobalamin (vit B-12) 1,000 mcg/mL injection solution RxNorm: 179116 1Milliliter 05/19/2017 No longer Active cyanocobalamin (vit B-12) 1,000 mcg/mL injection solution RxNorm: 698317 1Milliliter 04/06/2017 No longer Active cyanocobalamin (vit B-12) 1,000 mcg/mL injection solution RxNorm: 134670 Milliliter 01/04/2017 No longer Active cyanocobalamin (vit B-12) 1,000 mcg/mL injection solution RxNorm: 536363 1Milliliter 12/10/2016 No longer Active cyanocobalamin (vit B-12) 1,000 mcg/mL injection solution RxNorm: 647527 Milliliter 10/13/2016 No longer Active cyanocobalamin (vit B-12) 1,000 mcg/mL injection solution RxNorm: 487577 1Milliliter 09/03/2016 No longer Active cyanocobalamin (vit B-12) 1,000 mcg/mL injection solution RxNorm: 360103 Milliliter 07/29/2016 No longer Active cyanocobalamin (vit B-12) 1,000 mcg/mL injection solution RxNorm: 132022 1Milliliter 06/03/2016 No longer Active cyanocobalamin (vit B-12) 1,000 mcg/mL injection solution RxNorm: 951968 Milliliter 09/15/2015 No longer Active cyanocobalamin (vit B-12) 1,000 mcg/mL injection solution RxNorm: 452461 Milliliter 09/08/2015 No longer Active cyanocobalamin (vit B-12) 1,000 mcg/mL injection solution RxNorm: 797137 Milliliter 09/01/2015 No longer Active cyanocobalamin (vit B-12) 1,000 mcg/mL injection solution RxNorm: 049780 Milliliter 08/25/2015 No longer Active Immunizations Vaccine [...] 30.3 pg 05/19/2017 Cbc With Differential Ord2 Bremer% 6.8 % 05/19/2017 Cbc With Differential Ord2 [...] 1.64 K/ul 05/19/2017 Cbc With Differential Ord2 Bremer ABS# 0.6 K/ul 05/19/2017 Cbc With Differential Ord2 Eos ABS# 0.2 K/ul 05/19/2017 Cbc With Differential Ord2 Baso ABS# 0.0 K/ul 05/19/2017 B12 Agt767 B12 >1500.00 pg/ml 05/19/2017 Free T4 Udt676 FREE T4 1.10 ng/dL 05/19/2017 %Hba1C Tan071 % HbA1c 52437-0 6.8 % 05/19/2017 %Hba1C Avu550 Gluc Ave 148 mg/dL 05/19/2017 Tsh Ord6 hTSH II 1.73 uIU/mL 05/19/2017 Comp Metabolic Ecn454 NA 140 mEq/L 05/19/2017 Comp Metabolic Gtg068 K 3.8 mEq/L 05/19/2017 Comp Metabolic Czy097 CL 108 mEq/L 05/19/2017 Comp Metabolic Ehb254 CO2 21.0 mEq/L 05/19/2017 Comp Metabolic Zmk118 ANION GAP 15 05/19/2017 Comp Metabolic Xbt561 GLUCOSE 207 mg/dL 05/19/2017 Comp Metabolic Qjt245 Creat 1.0 mg/dL 05/19/2017 Comp Metabolic Mrn070 eGFR 55 ml/min/1.73m2 05/19/2017 Comp Metabolic Jdf606 BUN 21 mg/dL 05/19/2017 Comp Metabolic Fmo887 B/C Ratio 20.4 Ratio 05/19/2017 Comp Metabolic Vtk111 CALCIUM 9.1 mg/dL 05/19/2017 Comp Metabolic Swi069 ALK PHOS 74 U/L 05/19/2017 Comp Metabolic Ckw970 AST(SGOT) 32 U/L 05/19/2017 Comp Metabolic Blb761 ALT(SGPT) 15 U/L 05/19/2017 Comp Metabolic Bdm747 BILI T 0.6 mg/dL 05/19/2017 Comp Metabolic Jva416 ALBUMIN 3.9 g/dL 05/19/2017 Comp Metabolic Esd398 TPRO 6.2 g/dL 05/19/2017 Comp Metabolic Qdw651 GLOB 2.3 g/dL 05/19/2017 Comp Metabolic Jbb458 A/G Ratio 1.6 Ratio 05/19/2017 Comp Metabolic Rne256 Osmo 288 mOsmo 05/19/2017 B12 Atx041 B12 222.00 pg/ml 12/10/2016 Cbc With Differential [...] 29.3 pg 12/10/2016 Cbc With Differential Ord2 Bremer% 7.1 % 12/10/2016 Cbc With Differential Ord2 [...] 2.50 K/ul 12/10/2016 Cbc With Differential Ord2 Bremer ABS# 0.5 K/ul 12/10/2016 Cbc With Differential Ord2 Eos ABS# 0.1 K/ul 12/10/2016 Cbc With Differential Ord2 Baso ABS# 0.0 K/ul 12/10/2016 %Hba1C Zph157 % HbA1c 51471-1 7.5 % 11/16/2016 %Hba1C Sxw215 Gluc Ave 169 mg/dL 11/16/2016 Tsh Ord6 hTSH II 2.50 uIU/mL 11/16/2016 Comp Metabolic Ugm345 NA 138 mEq/L 11/16/2016 Comp Metabolic Mwa055 K 3.8 mEq/L 11/16/2016 Comp Metabolic Ooz358 CL 103 mEq/L 11/16/2016 Comp Metabolic Pkc622 CO2 26.0 mEq/L 11/16/2016 Comp Metabolic Mer702 ANION GAP 13 11/16/2016 Comp Metabolic Dhe403 GLUCOSE 235 mg/dL 11/16/2016 Comp Metabolic Lpt109 Creat 0.9 mg/dL 11/16/2016 Comp Metabolic Csz705 eGFR 62 ml/min/1.73m2 11/16/2016 Comp Metabolic Yvd969 BUN 20 mg/dL 11/16/2016 Comp Metabolic Kmu519 B/C Ratio 21.7 Ratio 11/16/2016 Comp Metabolic Dko964 CALCIUM 8.9 mg/dL 11/16/2016 Comp Metabolic Adu190 ALK PHOS 75 U/L 11/16/2016 Comp Metabolic Fez424 AST(SGOT) 30 U/L 11/16/2016 Comp Metabolic Mpb454 ALT(SGPT) 13 U/L 11/16/2016 Comp Metabolic Wok550 BILI T 0.6 mg/dL 11/16/2016 Comp Metabolic Tla492 ALBUMIN 3.8 g/dL 11/16/2016 Comp Metabolic Tju906 TPRO 6.8 g/dL 11/16/2016 Comp Metabolic Zwf122 GLOB 3.1 g/dL 11/16/2016 Comp Metabolic Ghm413 A/G Ratio 1.2 Ratio 11/16/2016 Comp Metabolic Mkl901 Osmo 286 mOsmo 11/16/2016 Free T4 Iuz107 FREE T4 1.03 ng/dL 11/16/2016 Tsh Ord6 hTSH II 3.18 uIU/mL 05/21/2016 %Hba1C Ygw349 % HbA1c 79185-9 7.5 % 05/21/2016 %Hba1C Knf515 Gluc Ave 169 mg/dL 05/21/2016 Folate Ord36 Folate >23.80 ng/mL 05/21/2016 Free T4 Bhv147 FREE T4 1.03 ng/dL 05/21/2016 Lipid Ord30 CHOL 212 mg/dL 05/21/2016 Lipid Ord30 HDL 43.0 mg/dl 05/21/2016 Lipid Ord30 TRIG 164 mg/dL 05/21/2016 Lipid Ord30 LDL 136 mg/dL 05/21/2016 Lipid Ord30 C/HDL 4.9 Ratio 05/21/2016 B12 Cdp728 B12 159.00 pg/ml 05/21/2016 CHEM 14 4424903 AST 33 U/L 03/15/2016 CHEM 14 8590332 ALT 13 U/L 03/15/2016 CHEM 14 3053276 BUN 18 mg/dL 03/15/2016 CHEM 14 20280127 ALBUMIN 3.9 g/dL 03/15/2016 CHEM 14 7449109 CHLORIDE 105 mmol/L 03/15/2016 CHEM 14 7982678 Bili Total 0.4 mg/dL 03/15/2016 CHEM 14 5083139 ALK PHOS 60 U/L 03/15/2016 CHEM 14 5921588 SODIUM 138 mmol/L 03/15/2016 CHEM 14 8415132 CREATININE 0.99 mg/dL 03/15/2016 CHEM 14 5661278 CALCIUM 9.4 mg/dL 03/15/2016 CHEM 14 6619904 POTASSIUM 3.8 mmol/L 03/15/2016 CHEM 14 4590259 TOTAL PROTEIN 6.7 g/dL 03/15/2016 CHEM 14 4694869 GLUCOSE 109 mg/dL 03/15/2016 CHEM 14 3496435 Bicarbonate 27 mmol/L 03/15/2016 CHEM 14 0978797 AGAP 6 mmol/L 03/15/2016 GFR CALC 9390526 GFR Non Afr Amr 54 mL/min 03/15/2016 GFR CALC 3265450 GFR Afr Amr >60 mL/min 03/15/2016 B12 Weg915 B12 46.00 pg/ml 08/07/2015 Iron Ord72 Iron [...] Ord2 RDW 16.6 % 08/05/2015 Free T4 Lpr962 FREE T4 1.33 ng/dL 08/05/2015 Comp Metabolic Imf230 NA 137 mEq/L 08/05/2015 Comp Metabolic Bdp771 K 4.5 mEq/L 08/05/2015 Comp Metabolic Cal684 CL 104 mEq/L 08/05/2015 Comp Metabolic Jui183 CO2 26.0 mEq/L 08/05/2015 Comp Metabolic Hra268 ANION GAP 12 08/05/2015 Comp Metabolic Mpy845 GLUCOSE 146 mg/dL 08/05/2015 Comp Metabolic Ody586 Creat 1.0 mg/dL 08/05/2015 Comp Metabolic Bgs220 eGFR 56 ml/min/1.73m2 08/05/2015 Comp Metabolic Ldl518 BUN 23 mg/dL 08/05/2015 Comp Metabolic Ady798 B/C Ratio 22.8 Ratio 08/05/2015 Comp Metabolic Mgp801 CALCIUM 9.3 mg/dL 08/05/2015 Comp Metabolic Mlf686 ALK PHOS 71 U/L 08/05/2015 Comp Metabolic Zqn350 AST(SGOT) 33 U/L 08/05/2015 Comp Metabolic Njp745 ALT(SGPT) 15 U/L 08/05/2015 Comp Metabolic Cds714 BILI T 0.6 mg/dL 08/05/2015 Comp Metabolic Vfk860 ALBUMIN 3.9 g/dL 08/05/2015 Comp Metabolic Jai785 TPRO 6.5 g/dL 08/05/2015 Comp Metabolic Inh853 GLOB 2.6 g/dL 08/05/2015 Comp Metabolic Noq825 A/G Ratio 1.5 Ratio 08/05/2015 Comp Metabolic Rpx910 Osmo 280 mOsmo 08/05/2015 Tsh Ord6 hTSH II 0.36 uIU/mL 08/05/2015 %Hba1C Rcs657 % HbA1c 21654-7 8.1 % 08/05/2015 %Hba1C Lyq601 Gluc Ave 186 mg/dL 08/05/2015 Free T4 Qvx990 FREE T4 0.91 ng/dL 04/11/2015 %Hba1C Gzk021 % HbA1c 62363-0 8.3 % 04/10/2015 %Hba1C Rmr313 Gluc Ave 192 mg/dL 04/10/2015 Cbc With [...] Ord2 RDW 15.8 % 04/10/2015 Comp Metabolic Wzp985 NA 134 mEq/L 04/10/2015 Comp Metabolic Eyj752 K 4.1 mEq/L 04/10/2015 Comp Metabolic Smo809 CL 105 mEq/L 04/10/2015 Comp Metabolic Tht160 CO2 26.0 mEq/L 04/10/2015 Comp Metabolic Lug358 ANION GAP 7 04/10/2015 Comp Metabolic Kxv713 GLUCOSE 126 mg/dL 04/10/2015 Comp Metabolic Jdm117 Creat 1.0 mg/dL 04/10/2015 Comp Metabolic Kor622 eGFR 58 ml/min/1.73m2 04/10/2015 Comp Metabolic Xen647 BUN 29 mg/dL 04/10/2015 Comp Metabolic Kpu463 B/C Ratio 29.6 Ratio 04/10/2015 Comp Metabolic Qfz630 CALCIUM 9.3 mg/dL 04/10/2015 Comp Metabolic Fft343 ALK PHOS 63 U/L 04/10/2015 Comp Metabolic Nmy732 AST(SGOT) 31 U/L 04/10/2015 Comp Metabolic Hua883 ALT(SGPT) 14 U/L 04/10/2015 Comp Metabolic Kxu067 BILI T 0.6 mg/dL 04/10/2015 Comp Metabolic Dfz894 ALBUMIN 3.9 g/dL 04/10/2015 Comp Metabolic Dog738 TPRO 6.3 g/dL 04/10/2015 Comp Metabolic Ujm418 GLOB 2.4 g/dL 04/10/2015 Comp Metabolic Qik830 A/G Ratio 1.6 Ratio 04/10/2015 Comp Metabolic Xir059 Osmo 276 mOsmo 04/10/2015 Tsh Ord6 hTSH [...] Procedure Codes Date THER/PROPH/DIAG INJ SC/IM CPT-4: 76556 05/19/2017 VITAMIN B12 INJECTION CPT-4: J3420 05/19/2017 THER/PROPH/DIAG INJ SC/IM CPT-4: 27102 04/06/2017 VITAMIN B12 INJECTION CPT-4: J3420 04/06/2017 THER/PROPH/DIAG INJ SC/IM CPT-4: 83637 01/04/2017 VITAMIN B12 INJECTION CPT-4: J3420 01/04/2017 THER/PROPH/DIAG INJ SC/IM CPT-4: 90788 12/10/2016 VITAMIN B12 INJECTION CPT-4: J3420 12/10/2016 THER/PROPH/DIAG INJ SC/IM CPT-4: 95101 10/13/2016 TRIAMCINOLONE ACET INJ NOS CPT-4: J3301 10/13/2016 THER/PROPH/DIAG INJ SC/IM CPT-4: 23536 09/03/2016 VITAMIN B12 INJECTION CPT-4: J3420 09/03/2016 THER/PROPH/DIAG INJ SC/IM CPT-4: 93098 07/29/2016 VITAMIN B12 INJECTION CPT-4: J3420 07/29/2016 THER/PROPH/DIAG INJ SC/IM CPT-4: 30118 06/03/2016 VITAMIN B12 INJECTION CPT-4: J3420 06/03/2016 PNEUMOCOCCAL VACC [address]: 53130334 CPT-4: 61011 04/22/2016 ADMIN PNEUMOCOCCAL VACCINE SNOMED CT: 13002510 CPT-4: G0009 04/22/2016 VITAMIN B12 INJECTION CPT-4: J3420 09/15/2015 THER/PROPH/DIAG INJ SC/IM CPT-4: 14767 09/15/2015 THER/PROPH/DIAG INJ SC/IM CPT-4: 80037 09/08/2015 VITAMIN B12 INJECTION CPT-4: J3420 09/08/2015 THER/PROPH/DIAG INJ SC/IM CPT-4: 40177 09/01/2015 VITAMIN B12 INJECTION CPT-4: J3420 09/01/2015 THER/PROPH/DIAG INJ SC/IM CPT-4: 98310 08/25/2015 VITAMIN B12 INJECTION CPT-4: J3420 08/25/2015 Vital Signs Date Vital 05/19/2017 Blood Pressure 1: 148/76 Code : 8480-6 BMI: 42.8 Code : 44208-6 Heart Rate 1 : 72 bpm Height: 4'11" SpO2: 94% Weight: 212 lbs 02/15/2017 Blood Pressure 1: 154/70 Code : 8480-6 BMI: 42.5 Code : 09807-9 Heart Rate 1 : 68 bpm Height: 4'11" SpO2: 97% Weight: 210 lbs 8 oz 11/16/2016 Blood Pressure 1: 142/78 Code : 8480-6 BMI: 41.6 Code : 36010-2 Heart Rate 1 : 68 bpm Height: 4'11" SpO2: 95% Temperature: 36.0 (C) / 96.8 (F) Weight: 206 lbs 08/19/2016 Blood Pressure 1: 120/74 Code : 8480-6 BMI: 41.6 Code : 38946-7 Heart Rate 1 : 75 bpm Height: 4'11" SpO2: 95% Weight: 206 lbs 07/15/2016 Blood Pressure 1: 140/76 Code : 8480-6 BMI: 42.0 Code : 50752-3 Heart Rate 1 : 76 bpm Height: 4'11" SpO2: 96% Weight: 208 lbs 06/03/2016 Blood Pressure 1: 130/78 Code : 8480-6 BMI: 42.8 Code : 87128-0 Heart Rate 1 : 72 bpm Height: 4'11" SpO2: 98% Weight: 212 lbs 04/22/2016 Blood Pressure 1: 142/84 Code : 8480-6 BMI: 41.8 Code : 98636-2 Heart Rate 1 : 86 bpm Height: 4'11" SpO2: 92% Weight: 207 lbs 01/22/2016 Blood Pressure 1: 162/64 Code : 8480-6 BMI: 41.2 Code : 95014-9 Heart Rate 1 : 70 bpm Height: 4'11" SpO2: 97% Weight: 204 lbs 10/23/2015 Blood Pressure 1: 130/70 Code : 8480-6 BMI: 40.4 Code : 45399-1 Heart Rate 1 : 72 bpm Height: 4'11" SpO2: 95% Weight: 200 lbs 09/12/2015 Blood Pressure 1: 142/62 Code : 8480-6 BMI: 39.4 Code : 76686-0 Heart Rate 1 : 63 bpm Height: 4'11" SpO2: 96% Weight: 195 lbs 08/05/2015 Blood Pressure 1: 144/60 Code : 8480-6 BMI: 41.0 Code : 96465-6 Heart Rate 1 : 92 bpm Height: 4'11" SpO2: 90% SpO2: 97% Weight: 203 lbs 04/03/2015 Blood Pressure 1: 142/68 Code : 8480-6 BMI: 40.6 Code : 77207-0 Heart Rate 1 : 77 bpm Height: 4'11" SpO2: 95% Weight: 201 lbs 01/30/2015 Blood Pressure 1: 150/72 Code : 8480-6 BMI: 40.2 Code : 94608-4 Heart Rate 1 : 64 bpm Height: 4'11" Weight: 199 lbs 01/02/2015 Blood Pressure 1: 136/72 Code : 8480-6 BMI: 39.8 Code : 35921-1 Heart Rate 1 : 68 bpm Height: [...] data Encounters Encounter Performer Location Codes Date ([id number]) [id number] EST. PATIENT, LEVEL IV Diagnosis: Essential (primary) hypertension[ICD10: I10] Diagnosis: Type 2 diabetes mellitus with hyperglycemia[ICD10: E11.65] Diagnosis: Hypothyroidism, unspecified[ICD10: E03.9] Diagnosis: Vitamin B12 deficiency anemia due to intrinsic factor deficiency[ ICD10: D51.0] Diagnosis: Chronic kidney disease, stage 3 (moderate)[ICD10: N18.3] Giselle Knox MD , [facility] CPT-4: 30739 05/19/2017 ([id number]) [id number] EST. PATIENT, LEVEL IV Diagnosis: Essential (primary) hypertension[ICD10: I10] Diagnosis: Type 2 diabetes mellitus with hyperglycemia[ICD10: E11.65] Diagnosis: Hypothyroidism, unspecified[ICD10: E03.9] Giselle Knox MD, [facility] CPT-4: 52896 02/15/2017 [id number] EST. PATIENT, LEVEL IV Diagnosis: Type 2 diabetes mellitus with hyperglycemia[ICD10: E11.65] Diagnosis: Cough[ICD10: R05] Diagnosis: Acute upper respiratory infection, unspecified[ICD10: J06.9] Diagnosis: Hypothyroidism, unspecified[ICD10: E03.9] Diagnosis: Chronic kidney disease, stage 3 (moderate)[ICD10: N18.3] Giselle Knox MD , [facility] CPT-4: 36057 11/16/[id number]) [id number] EST. PATIENT, LEVEL IV Diagnosis: Type 2 diabetes mellitus with hyperglycemia[ICD10: E11.65] Diagnosis: Hypothyroidism, unspecified[ICD10: E03.9] Diagnosis: Essential (primary) hypertension[ICD10: I10] Giselle Knox MD, [facility] CPT-4: 94538 08/19/2016 ([id number]) [id number] EST. PATIENT, LEVEL III Diagnosis: Type 2 diabetes mellitus with hyperglycemia[ICD10: E11.65] Giselle Knox MD, [facility] CPT-4: 40384 07/15/2016 [id number] EST. PATIENT, LEVEL IV Diagnosis: Type 2 diabetes mellitus with hyperglycemia[ICD10: E11.65] Diagnosis: Atrophy of thyroid (acquired)[ICD10: E03.4] Diagnosis: Vitamin B12 deficiency anemia due to intrinsic factor deficiency[ ICD10: D51.0] Diagnosis: Chronic kidney disease, stage 3 (moderate)[ICD10: N18.3] Diagnosis: Essential (primary) hypertension[ICD10: I10] Jennifer Knox MD, [facility] CPT-4: 27708 06/03/2016 ([id number]) 33537 EST. PATIENT, LEVEL III Diagnosis: Type 2 diabetes mellitus with hyperglycemia[ICD10: E11.65] Diagnosis: Essential (primary) hypertension[ICD10: I10] Diagnosis: Chronic kidney disease, stage 3 (moderate)[ICD10: N18.3] Diagnosis: VACCIN STREP PNEUMONIAE[ICD10: Z23] Giselle Knox MD, [facility] CPT-4: 31977 04/22/2016 57793 EST. PATIENT, LEVEL IV Diagnosis: Type 2 diabetes mellitus with hyperglycemia[ICD10: E11.65] Diagnosis: Essential (primary) hypertension[ICD10: I10] Chasity Knox MD, [facility] CPT-4: 75519 01/22/2016 ([id number]) 12095 EST. PATIENT, LEVEL III Diagnosis: Type 2 diabetes mellitus with hyperglycemia[ICD10: E11.65] Diagnosis: Essential (primary) hypertension[ICD10: I10] Giselle Knox MD, [facility] CPT-4: 79528 10/23/2015 00125 EST. PATIENT, LEVEL IV Diagnosis: Type 2 diabetes mellitus with hyperglycemia[ICD10: E11.65] Diagnosis: Vitamin B12 deficiency anemia due to intrinsic factor deficiency[ ICD10: D51.0] Diagnosis: Essential (primary) hypertension[ICD10: I10] Chasity Knox MD, [facility] CPT-4: 25965 09/12/2015 ([id number]) 52705 EST. PATIENT, LEVEL IV Diagnosis: Essential (primary) hypertension[ICD10: I10] Diagnosis: Type 2 diabetes mellitus with hyperglycemia[ICD10: E11.65] Diagnosis: Hypothyroidism, unspecified[ICD10: E03.9] Giselle Knox MD, [facility] CPT-4: 34904 08/05/2015 ([id number]) 18964 EST. PATIENT, LEVEL III Diagnosis: ESSENTIAL HYPERTENSION[ICD9: 401.9] Diagnosis: DIABETES TYPE II[ICD9: 250.00] Jennifer Knox MD, [facility] CPT- 4: 71461 04/03/2015 ([id number]) 73057 EST. PATIENT, LEVEL IV Diagnosis: ESSENTIAL HYPERTENSION[ICD9: 401.9] Diagnosis: DIABETES TYPE II[ICD9: 250.00] Diagnosis: Hypothyroidism[ICD9: 244.9] Giselle Knox MD, [facility] CPT-4: 19014 01/30/2015 ([id number]) OFFICE VISIT, NEW - LEVEL 4 Diagnosis: ESSENTIAL HYPERTENSION[ICD9: 401.9] Diagnosis: DIABETES TYPE II[ICD9: 250.00] Diagnosis: Impacted cerumen[ICD9: 380.4] Jennifer Knox MD, [facility] CPT- 4: 52166 01/02/2015 Plan of Care Planned Activity Notes Codes Status Date Appointment: [facility] [phone] [id number] [place] ([facility] min) Moderate 07/19/2017 Appointment: [phone] [id number] [place] ([place] min) Moderate 06/13/2017 Visit Plan: [...] medications. 05/19/2017 Appointment: [phone] [phone] [place] (30 min) Complex 05/19/2017 Patient [...] of control. 02/15/2017 Appointment: Giselle Mccoy WPtel: [address] [place], [place] [phone] [place] (15 min) Moderate 02/15/2017 Patient Education: [...] today 11/16/2016 Appointment: Giselle Mccoy WPtel: [phone] [phone] (15 min) Moderate 11/16/2016 Patient Education: [...] control. 08/19/2016 Appointment: [facility] [phone] [phone] [place] (15 min) Moderate 08/19/2016 Patient Education: Patient Medication Summary Completed 08/19/2016 Patient Education: Obesity Completed 08/19/2016 Care Plan: Tsh Cancelled 08/19/2016 Care Plan: %Hba1C LOINC : 08506-7 Cancelled 08/19/2016 Care Plan: Lipid Cancelled 08/19/2016 Care Plan: Free T4 patient coming back next week Cancelled 08/19/2016 Appointment: Injection 07/29/2016 Patient Education: Patient Medication Summary Completed 07/29/2016 Appointment: Giselle Mccoy WPtel: [phone] [phone] (30 min) Complex 07/22/2016 Visit Plan: Diabetes-having hypoglycemia in the mornings- insulin adjusted-patient and verbalized understanding of plan. Follow up in 1 month-call sooner if still having low blood sugars. Sinus congestion- start claritin 07/15/2016 Appointment: Darius [facility]elle [facility] [phone] [phone] (30 min) Complex 07/15/2016 Patient Education: Patient [...] of control. 06/03/2016 Appointment: [facility] [phone] [facility] [id number] (15 min) Moderate 06/03/2016 Patient Education: Patient [...] A1C IN 1 MONTH 04/22/2016 Appointment: Giselle cMcoy WPtel: [address] [place] [phone] (15 min) Moderate 04/22/2016 Patient Education: Patient [...] if needed. 01/02/2015 Appointment: Jennifer Knox WPtel: [address] [place] [phone] [place] (S) New Patient 01/02/2015 Patient Education: Patient Medication Summary Completed 01/02/2015 Patient Education: Hypertension Completed 01/02/2015 Instructions Comment COME BACK NEXT WEEK FASTING . Diabetes [...] control. Chronic renal disease-check labs today . Diabetes Mellitus - Uncontrolled - per [...] months based on previous levels of control. COME BACK NEXT WEEK FOR BLOOD [...] months based on previous levels of control. decrease terazosin to 1/2 pill daily use [...] FOR REPEAT HGB A1C IN 1 MONTH DECREASE NOVOLIN 70/30 18 UNITS IN THE [...]
--- OUTSIDE RECORDS SUMMARY | 2018-06-17 11:17 | XMS REPORT | Continuity of Care Document ---
Author Author [facility] Organization [facility] Address Unknown Phone Unavailable Allergies Active Description Code Type Severity Reaction Onset Reported/Identified Relationship to Patient Clinical Status Yes No Known Drug Allergies [id number] Drug Allergy Unknown N/A 12/24/2010 Medications There is no data. Problems Date Dx Coded Attending Type Code Diagnosis Diagnosed By 12/25/2010 Ot 244.9 12/25/2010 Ot 250.82 12/25/2010 Ot 272.4 12/25/2010 Ot 309.0 12/25/2010 Ot 401.9 12/25/2010 Ot 781.94 12/25/2010 Ot V58.67 08/31/2013 BETHANY DAMON, NOELLE Chavez Ot 211.1 08/31/2013 BETHANY DAMON, NOELLE Chavez Ot 285.9 08/31/2013 BETHANY DAMON, NOELLE Chavez Ot V45.89 09/04/2013 BETHANY DAMON, NOELLE Chavez Ot 153.6 09/04/2013 BETHANY DAMON, NOELLE Chavez Ot 211.3 09/04/2013 BETHANY DAMON, NOELLE Chavez Ot 285.9 09/10/2013 DERICK DAMON, LOUIS M Ot 153.4 09/18/2013 DERICK DAMON, LOUIS M Ot 153.4 09/18/2013 DERICK DAMON, LOUIS M Ot 196.9 09/18/2013 DERICK DAMON, LOUIS M Ot 244.9 09/18/2013 DERICK DAMON, LOUIS M Ot 250.00 09/18/2013 DERICK DAMON, LOUIS M Ot 272.0 09/18/2013 DERICK DAMON, LOUIS M Ot 272.4 09/18/2013 DERICK DAMON, LOUIS M Ot 278.01 09/18/2013 DERICK DAMON, LOUIS M Ot 280.9 09/18/2013 DERICK DAMON, LOUIS M Ot 401.9 09/18/2013 DERICK DAMON, LOUIS M Ot 568.0 09/18/2013 DERICK DAMON, LOUIS M Ot V03.82 09/18/2013 DERICK DAMON, LOUIS Jauregui Ot V58.67 09/18/2013 DERICK DAMON, LOUIS M Ot V85.41 10/12/2013 DERICK DAMON, LOUIS M Ot 153.4 10/12/2013 DERICK DAMON, LOUIS M Ot 196.9 10/12/2013 DERICK DAMON, LOUIS M Ot V58.69 01/02/2014 MARIAJOSE, BOBAN N Ot 153.6 01/02/2014 MARIAJOSE, BOBAN N Ot 250.40 01/02/2014 MARIAJOSE, BOBAN N Ot 585.3 01/02/2014 MARIAJOSE, BOBAN N Ot V58.11 01/02/2014 MARIAJOSE, BOBAN N Ot V58.67 01/02/2014 MARIAJOSE, BOBAN N Ot V58.69 04/09/2014 MARIAJOSE, BOBAN N Ot 153.9 04/09/2014 MARIAJOSE, BOBAN N Ot V58.11 06/19/2014 Ot V76.12 06/19/2014 Ot V76.12 06/26/2014 Ot V76.12 06/27/2014 HANSEL DAMON, DESIREE Jauregui Ot 782.3 07/09/2014 MARIAJOSE, BOBAN N Ot 153.6 07/09/2014 MARIAJOSE, BOBAN N Ot 250.00 07/09/2014 MARIAJOSE, BOBAN N Ot 585.3 07/09/2014 MARIAJOSE, BOBAN N Ot V58.67 07/09/2014 MARIAJOSE, BOBAN N Ot V58.69 07/09/2014 MARIAJOSE, BOBAN N Ot V58.81 07/09/2014 JASMIN VEGA 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 Ot 153.9 07/15/2014 HANSEL DAMON, DESIREE Jauregui Ot 782.3 07/22/2014 JASMIN VEGA 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 Ot 153.9 08/06/2014 BETHANY DAMON, NOELLE Chavez Ot 571.8 08/06/2014 DERICK DAMON, LOUIS Jauregui Ot 153.9 08/06/2014 DERICK DAMON, LOUIS Jauregui Ot V72.63 08/06/2014 DERICK DAMON, LOUIS Jauregui Ot V74.8 08/06/2014 MARIAJOSE, BOBAN N Ot 153.9 08/06/2014 MARIAJOSE, BOBAN N Ot 153.9 08/06/2014 MARIAJOSE, BOBAN N Ot 793.6 08/06/2014 DERICK DAMON, LOUIS M Ot 153.9 08/06/2014 DERICK DAMON, LOUIS M Ot V72.84 08/06/2014 VEGAJASMIN S 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 Ot 153.6 08/06/2014 VEGA, HILAH S 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 Ot 250.00 08/06/2014 VEGA, HILAH S 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 Ot 585.3 08/06/2014 VEGA, HILAH S 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 Ot V58.67 08/06/2014 HANSEL DAMON, DESIREE Jauregui Ot 250.00 08/06/2014 VEGA, HILAH S 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 Ot 153.6 08/06/2014 VEGA, HILAH S 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 Ot 250.00 08/06/2014 VEGA, HILAH S 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 Ot 285.9 08/06/2014 VEGA, HILAH S 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 Ot V58.67 08/06/2014 VEGA, HILAH S 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 Ot V58.69 08/06/2014 VEGA, HILAH S 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 Ot 153.6 08/06/2014 VEGA, HILAH S 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 Ot 250.00 08/06/2014 VEGA, HILAH S 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 Ot 585.3 08/06/2014 VEGA, HILAH S 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 Ot V58.67 08/06/2014 VEGA, HILAH S 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 Ot V58.69 08/06/2014 VEGA, HILAH S 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 Ot 153.6 08/06/2014 VEGA, HILAH S 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 Ot 250.00 08/06/2014 VEGA, HILAH S 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 Ot 585.3 08/06/2014 VEGA, HILAH S 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 Ot V58.67 08/06/2014 VEGA, HILAH S 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 Ot V58.69 08/06/2014 HANSEL DAMON, DESIREE Jauregui Ot 244.8 08/06/2014 HANSEL DAMON, DESIREE Jauregui Ot 250.00 08/06/2014 VEGA, HILAH S 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 Ot 153.6 08/06/2014 VEGA, HILAH S 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 Ot 250.00 08/06/2014 VEGA, HILAH S 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 Ot 585.3 08/06/2014 VEGA, HILAH S 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 Ot V58.67 08/06/2014 VEGAJASMIN S 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 Ot V58.69 08/06/2014 VEGA, JEFFREYAH S 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 Ot 153.6 08/06/2014 VEGA, JEFFREYAH S 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 Ot 250.00 08/06/2014 VEGA, JEFFREYAH S 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 Ot 585.3 08/06/2014 VEGA, JASMIN S 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 Ot V58.67 08/06/2014 VEGA, JEFFREYAH S 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 Ot V58.69 08/06/2014 VEGA, JASMIN S 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 Ot 153.9 08/06/2014 HANSEL DAMON, DESIREE Jauregui Ot 782.3 08/06/2014 MARIAJOSE, BOBAN N Ot 153.6 08/06/2014 MARIAJOSE, BOBAN N Ot 250.00 08/06/2014 MARIAJOSE, BOBAN N Ot 585.3 08/06/2014 MARIAJOSE, BOBAN N Ot V58.67 08/06/2014 MARIAJOSE, BOBAN N Ot V58.69 08/06/2014 BETHANY DAMON, NOELLE Chavez Ot 571.8 08/06/2014 DERICK DAMON, LOUIS M Ot 153.9 08/06/2014 DERICK DAMON, LOUIS M Ot V72.63 08/06/2014 DERICK DAMON, LOUIS M Ot V74.8 08/06/2014 MARIAJOSE, BOBAN N Ot 153.9 08/06/2014 MARIAJOSE, BOBAN N Ot 153.9 08/06/2014 MARIAJOSE, BOBAN N Ot 793.6 08/06/2014 DERICK DAMON, LOUIS M Ot 153.9 08/06/2014 DERICK DAMON, LOUIS M Ot V72.84 08/06/2014 VEGA, JASMIN S 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 Ot 153.6 08/06/2014 VEGA, JASMIN S 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 Ot 250.00 08/06/2014 VEGA, JASMIN S 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 Ot 585.3 08/06/2014 VEGA, JEFFREYAH S 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 Ot V58.67 08/06/2014 HANSEL DAMON, DESIREE M Ot 250.00 08/06/2014 VEGA, JASMIN S 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 Ot 153.6 08/06/2014 VEGA, JEFFREYAH S 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 Ot 250.00 08/06/2014 VEGA, JEFFREYAH S 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 Ot 285.9 08/06/2014 GARY HILAH S 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 Ot V58.67 08/06/2014 VEGA, JASMIN S 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 Ot V58.69 08/06/2014 VEGA, HILAH S 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 Ot 153.6 08/06/2014 VEGA, JEFFREYAH S 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 Ot 250.00 08/06/2014 VEGA, JASMIN S 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 Ot 585.3 08/06/2014 VEGA, JASMIN S 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 Ot V58.67 08/06/2014 VEGA, JASMIN S 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 Ot V58.69 08/06/2014 VEGA, JASMIN S 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 Ot 153.6 08/06/2014 VEGA, JEFFREYAH S 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 Ot 250.00 08/06/2014 VEGA, JEFFREYAH S 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 Ot 585.3 08/06/2014 VEGA, JASMIN S 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 Ot V58.67 08/06/2014 VEGA, JASMIN S 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 Ot V58.69 08/06/2014 HANSEL DAMON, DESIREE Jauregui Ot 244.8 08/06/2014 HANSEL DAMON, DESIREE Jauregui Ot 250.00 08/06/2014 VEGA, JASMIN S 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 Ot 153.6 08/06/2014 VEGA, JASMIN S 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 Ot 250.00 08/06/2014 VEGA, JASMIN S 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 Ot 585.3 08/06/2014 VEGA, JASMIN S 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 Ot V58.67 08/06/2014 VEGA, JASMIN S 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 Ot V58.69 08/06/2014 VEGA, JASMIN S 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 Ot 153.6 08/06/2014 VEGA, JASMIN S 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 Ot 250.00 08/06/2014 VEGA, JASMIN S 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 Ot 585.3 08/06/2014 VEGA, JASMIN S 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 Ot V58.67 08/06/2014 VEGA, JEFFREYAH S 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 Ot V58.69 08/06/2014 VEGA, JEFFREYAH S 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 Ot 153.9 08/06/2014 HANSEL DAMON, DESIREE M Ot 782.3 08/06/2014 NORI BILLY N Ot 153.6 08/06/2014 NORI BILLY N Ot 250.00 08/06/2014 NORI BILLY N Ot 585.3 08/06/2014 MARIAJOSE, BOBAN N Ot V58.67 08/06/2014 MARIAJOSE, BOBAN N Ot V58.69 08/07/2014 HANSEL DAMON, DESIREE Jauregui Ot V76.12 08/14/2014 MARIAJOSE, BOBAN N Ot 153.6 08/14/2014 MARIAJOSE, BOBAN N Ot 250.00 08/14/2014 MARIAJOSE, BOBAN N Ot 585.3 08/14/2014 MARIAJOSE, BOBAN N Ot V58.67 08/14/2014 MARIAJOSE, BOBAN N Ot V58.69 08/14/2014 MARIAJOSE, BOBAN N Ot 153.6 08/14/2014 MARIAJOSE, BOBAN N Ot 250.00 08/14/2014 MARIAJOSE, BOBAN N Ot 585.3 08/14/2014 MARIAJOSE, BOBAN N Ot V58.67 08/14/2014 MARIAJOSE, BOBAN N Ot V58.69 09/09/2014 BETHANY DAMON, NOELLE Chavez Ot 571.8 09/09/2014 DERICK DAMON, LOUIS M Ot 153.9 09/09/2014 DERICK DAMON, LOUIS M Ot V72.63 09/09/2014 DERICK DAMON, LOUIS M Ot V74.8 09/09/2014 MARIAJOSE, BOBAN N Ot 153.9 09/09/2014 MARIAJOSE, BOBAN N Ot 153.9 09/09/2014 MARIAJOSE, BOBAN N Ot 793.6 09/09/2014 DERICK DAMON, LOUIS M Ot 153.9 09/09/2014 DERICK DAMON, LOUIS M Ot V72.84 09/09/2014 JASMIN VEGA S 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 Ot 153.6 09/09/2014 VEGAJASMIN Contreras S 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 Ot 250.00 09/09/2014 VEGAJASMIN S 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 Ot 585.3 09/09/2014 VEGAJASMIN Contreras S 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 Ot V58.67 09/09/2014 HANSEL DAMON, DESIREE Jauregui Ot 250.00 09/09/2014 VEGAJEFFREYAH S 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 Ot 153.6 09/09/2014 VEGAJEFFREYAH S 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 Ot 250.00 09/09/2014 VEGAJASMIN S 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 Ot 285.9 09/09/2014 JASMIN VEGA S 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 Ot V58.67 09/09/2014 VEGA, JASMIN S 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 Ot V58.69 09/09/2014 VEGA, JASMIN S 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 Ot 153.6 09/09/2014 VEGA, JASMIN S 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 Ot 250.00 09/09/2014 VEGA, JASMIN S 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 Ot 585.3 09/09/2014 VEGA, JASMIN S 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 Ot V58.67 09/09/2014 VEGA, JEFFREYAH S 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 Ot V58.69 09/09/2014 VEGA, JEFFREYAH S 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 Ot 153.6 09/09/2014 VEGA, JEFFREYAH S 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 Ot 250.00 09/09/2014 VEGA, JASMIN S 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 Ot 585.3 09/09/2014 VEGA, JASMIN S 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 Ot V58.67 09/09/2014 VEGA, JASMIN S 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 Ot V58.69 09/09/2014 HANSEL DAMON, DESIREE Jauregui Ot 244.8 09/09/2014 HANSEL DAMON, DESIREE Jauregui Ot 250.00 09/09/2014 VEGAJASMIN S 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 Ot 153.6 09/09/2014 VEGAJASMIN S 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 Ot 250.00 09/09/2014 VEGAJASMIN S 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 Ot 585.3 09/09/2014 VEGAJASMIN S 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 Ot V58.67 09/09/2014 VEGA, JASMIN S 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 Ot V58.69 09/09/2014 VEGA, JASMIN S 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 Ot 153.6 09/09/2014 VEGA, JASMIN S 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 Ot 250.00 09/09/2014 VEGA, JASMIN S 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 Ot 585.3 09/09/2014 VEGA, JASMIN S 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 Ot V58.67 09/09/2014 VEGA, JASMIN S 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 Ot V58.69 09/09/2014 VEGA, JEFFREYAH S 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 Ot 153.9 09/09/2014 HANSEL DAMON, DESIREE M Ot 782.3 09/09/2014 NORI BILLY N Ot 153.6 09/09/2014 NORI BILLY N Ot 250.00 09/09/2014 NORI BILLY N Ot 585.3 09/09/2014 MARIAJOSE, BOBAN N Ot V58.67 09/09/2014 MARIAJOSE, BOBAN N Ot V58.69 09/09/2014 HANSEL DAMON, DESIREE M Ot V76.12 09/09/2014 DERICK DAMON, LOUIS M Ot V72.84 09/09/2014 DERICK DAMON, LOUIS M Ot 250.00 09/09/2014 DERICK DAMON, LOUIS M Ot 401.9 09/09/2014 DERICK DAMON, LOUIS M Ot 715.90 09/09/2014 DERICK DAMON, LOUIS M Ot V10.05 09/09/2014 DERICK DAMON, LOUIS M Ot V67.09 09/09/2014 HANSEL DAMON, DESIREE M Ot V76.12 09/09/2014 HANSEL DAMON, DESIREE M Ot V76.12 09/09/2014 HANSEL DAMON, DESIREE M Ot V76.12 09/09/2014 BETHANY DAMON, NOELLE D Ot 571.8 09/09/2014 DERICK DAMON, LOUIS M Ot 153.9 09/09/2014 DERICK DAMON, LOUIS M Ot V72.63 09/09/2014 DERICK DAMON, LOUIS M Ot V74.8 09/09/2014 MARIAJOSE, BOBAN N Ot 153.9 09/09/2014 MARIAJOSE, BOBAN N Ot 153.9 09/09/2014 MARIAJOSE, BOBAN N Ot 793.6 09/09/2014 DERICK DAMON, LOUIS M Ot 153.9 09/09/2014 DERICK DAMON, LOUIS M Ot V72.84 09/09/2014 JASMIN VEGA S 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 Ot 153.6 09/09/2014 JASMIN VEGA S 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 Ot 250.00 09/09/2014 JASMIN VEGA S 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 Ot 585.3 09/09/2014 JASMIN VEGA S 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 Ot V58.67 09/09/2014 HANSEL DAMON, DESIREE M Ot 250.00 09/09/2014 JASMIN VEGA S 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 Ot 153.6 09/09/2014 JASMIN VEGA 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 Ot 250.00 09/09/2014 JASMIN VEGA 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 Ot 285.9 09/09/2014 JASMIN VEGA S 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 Ot V58.67 09/09/2014 GARY HILAH S 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 Ot V58.69 09/09/2014 VEGA, JASMIN S 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 Ot 153.6 09/09/2014 VEGA, HILAH S 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 Ot 250.00 09/09/2014 VEGA, JASMIN S 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 Ot 585.3 09/09/2014 VEGA, JASMIN S 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 Ot V58.67 09/09/2014 VEGA, JASMIN S 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 Ot V58.69 09/09/2014 VEGA, JASMIN S 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 Ot 153.6 09/09/2014 VEGA, JASMIN S 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 Ot 250.00 09/09/2014 VEGA, JASMIN S 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 Ot 585.3 09/09/2014 VEGA, JASMIN S 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 Ot V58.67 09/09/2014 VEGA, JASMIN S 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 Ot V58.69 09/09/2014 HANSEL DAMON, DESIREE Jauregui Ot 244.8 09/09/2014 HANSEL DAMON, DESIREE Jauregui Ot 250.00 09/09/2014 VEGAJASMIN S 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 Ot 153.6 09/09/2014 VEGAJASMIN S 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 Ot 250.00 09/09/2014 VEGA, JASMIN S 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 Ot 585.3 09/09/2014 VEGA, JASMIN S 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 Ot V58.67 09/09/2014 VEGA, JASMIN S 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 Ot V58.69 09/09/2014 VEGA, JASMIN S 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 Ot 153.6 09/09/2014 VEGAJASMIN S 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 Ot 250.00 09/09/2014 VEGAJASMIN S 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 Ot 585.3 09/09/2014 VEGA, JASMIN S 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 Ot V58.67 09/09/2014 VEGA, JASMIN S 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 Ot V58.69 09/09/2014 VEGA, JASMIN S 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 Ot 153.9 09/09/2014 HANSEL DAMON, DESIREE M Ot 782.3 09/09/2014 NORI BILLY N Ot 153.6 09/09/2014 NORI BILLY N Ot 250.00 09/09/2014 NORI BILLY N Ot 585.3 09/09/2014 NORI BILLY N Ot V58.67 09/09/2014 MARIAJOSE, BOBAN N Ot V58.69 09/09/2014 HANSEL DAMON, DESIREE Jauregui Ot V76.12 09/09/2014 DERICK DAMON, LOUIS M Ot V72.84 09/10/2014 Ot V76.12 09/18/2014 Ot V76.12 10/29/2014 Ot V76.12 11/06/2014 DERICK DAMON, LOUIS Jauregui Ot V72.84 11/12/2014 MARIAJOSE, BOBAN N Ot 153.6 11/12/2014 MARIAJOSE, BOBAN N Ot 250.00 11/12/2014 MARIAJOSE, BOBAN N Ot 585.3 11/12/2014 MARIAJOSE, BOBAN N Ot V58.67 11/12/2014 MARIAJOSE, BOBAN N Ot V58.69 11/12/2014 MARIAJOSE, BOBAN N Ot V58.81 11/14/2014 MARIAJOSE, BOBAN N Ot 153.6 11/14/2014 MARIAJOSE, BOBAN N Ot 250.00 11/14/2014 MARIAJOSE, BOBAN N Ot 585.3 11/14/2014 MARIAJOSE, BOBAN N Ot V58.67 11/14/2014 MARIAJOSE, BOBAN N Ot V58.69 11/15/2014 MARIAJOSE, BOBAN N Ot 153.6 11/15/2014 MARIAJOSE, BOBAN N Ot 250.00 11/15/2014 MARIAJOSE, BOBAN N Ot 585.3 11/15/2014 MARIAJOSE, BOBAN N Ot V58.67 11/15/2014 MARIAJOSE, BOBAN N Ot V58.69 01/06/2015 HANSEL DAMON, DESIREE Jauregui Ot V76.12 02/07/2015 MARIAJOSE, BOBAN N Ot 153.6 02/07/2015 MARIAJOSE, BOBAN N Ot 250.00 02/07/2015 MARIAJOSE, BOBAN N Ot 585.3 02/07/2015 MARIAJOSE, BOBAN N Ot V58.67 02/07/2015 MARIAJOSE, BOBAN N Ot V58.69 02/12/2015 MARIAJOSE, BOBAN N Ot 153.6 02/12/2015 MARIAJOSE, BOBAN N Ot 250.00 02/12/2015 MARIAJOSE, BOBAN N Ot 585.3 02/12/2015 MARIAJOSE, BOBAN N Ot V58.67 02/12/2015 MARIAJOSE, BOBAN N Ot V58.69 02/12/2015 MARIAJOSE, BOBAN N Ot V58.81 02/13/2015 MARIAJOSE, BOBAN N Ot 153.6 02/13/2015 MARIAJOSE, BOBAN N Ot 250.00 02/13/2015 MARIAJOSE, BOBAN N Ot 585.3 02/13/2015 MARIAJOSE, BOBAN N Ot V58.67 02/13/2015 MARIAJOSE, BOBAN N Ot V58.69 02/14/2015 MARIAJOSE, BOBAN N Ot 153.6 02/14/2015 MARIAJOSE, BOBAN N Ot 250.00 02/14/2015 MARIAJOSE, BOBAN N Ot 585.3 02/14/2015 MARIAJOSE, BOBAN N Ot V58.67 02/14/2015 MARIAJOSE, BOBAN N Ot V58.69 03/03/2015 Ot V76.12 03/24/2015 MARIAJOSE, BOBAN N Ot 153.6 03/24/2015 MARIAJOSE, BOBAN N Ot 250.00 03/24/2015 MARIAJOSE, SHANNAAN N Ot 585.3 03/24/2015 MARIAJOSE, SHANNAAN N Ot V58.67 03/24/2015 MARIAJOSE, BOBAN N Ot V58.69 03/24/2015 MARIAJOSE, BOBAN N Ot V58.81 04/08/2015 Ot V76.12 04/09/2015 JASMIN VEGA 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 Ot 153.6 04/09/2015 JASMIN VEGA 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 Ot 250.00 04/09/2015 JASMIN VEGA S 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 Ot 585.3 04/09/2015 JASMIN VEGA S 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 Ot V58.67 04/09/2015 JASMIN VEGA S 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 Ot V58.69 04/23/2015 MARIAJOSE, BOBAN N Ot 153.6 04/23/2015 MARIAJOSE, BOBAN N Ot 250.00 04/23/2015 MARIAJOSE, BOBAN N Ot 585.3 04/23/2015 MARIAJOSE, BOBAN N Ot V58.67 04/23/2015 MARIAJOSE, BOBAN N Ot V58.69 04/23/2015 MARIAJOSE, BOBAN N Ot V58.81 04/23/2015 JASMIN VEGA S 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 Ot 153.6 04/23/2015 JASMIN VEGA S 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 Ot 250.00 04/23/2015 VEGAJASMIN Contreras 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 Ot 585.3 04/23/2015 VEGAJASMIN Contreras S 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 Ot V58.67 04/23/2015 VEGAJASMIN Contreras S 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 Ot V58.69 05/22/2015 MARIAJOSE, BOBAN N Ot 153.6 05/22/2015 MARIAJOSE, BOBAN N Ot 250.00 05/22/2015 MARIAJOSE, BOBAN N Ot 585.3 05/22/2015 MARIAJOSE, BOBAN N Ot V58.67 05/22/2015 MARIAJOSE, BOBAN N Ot V58.69 05/22/2015 MARIAJOSE, BOBAN N Ot V58.81 07/11/2015 MARIAJOSE, BOBAN N Ot 153.6 07/11/2015 MARIAJOSE, BOBAN N Ot 250.00 07/11/2015 MARIAJOSE, BOBAN N Ot 585.3 07/11/2015 MARIAJOSE, BOBAN N Ot V58.67 07/11/2015 MARIAJOSE, BOBAN N Ot V58.69 07/11/2015 MARIAJOSE, BOBAN N Ot V58.81 07/29/2015 MARIAJOSE, BOBAN N Ot C18.2 07/29/2015 MARIAJOSE, BOBAN N Ot E11.22 07/29/2015 MARIAJOSE, BOBAN N Ot N18.3 07/29/2015 MARIAJOSE, BOBAN N Ot Z45.2 07/29/2015 MARIAJOSE, BOBAN N Ot Z79.4 07/29/2015 MARIAJOSE, BOBAN N Ot Z79.899 07/29/2015 MARIAJOSE, BOBAN N Ot Z92.21 08/26/2015 MARIAJOSE, BOBAN N Ot C18.2 08/26/2015 MARIAJOSE, BOBAN N Ot E11.22 08/26/2015 MARIAJOSE, BOBAN N Ot N18.3 08/26/2015 MARIAJOSE, BOBAN N Ot Z45.2 08/26/2015 MARIAJOSE, BOBAN N Ot Z79.4 08/26/2015 MARIAJOSE, BOBAN N Ot Z79.899 08/26/2015 MARIAJOSE, BOBAN N Ot Z92.21 09/23/2015 Ot C18.2 09/23/2015 Ot E11.22 09/23/2015 Ot N18.3 09/23/2015 Ot Z45.2 09/23/2015 Ot Z79.4 09/23/2015 Ot Z79.899 09/23/2015 Ot Z92.21 10/03/2015 MARIAJOSENORI AGUILAR N Ot C18.2 10/03/2015 MARIAJOSE, NORI N Ot E11.22 10/03/2015 MARIAJOSE, NORI N Ot N18.3 10/03/2015 MARIAJOSE, NORI N Ot Z45.2 10/03/2015 MARIAJOSE, NORI N Ot Z79.4 10/03/2015 MARIAJOSE, NORI N Ot Z79.899 10/03/2015 MARIAJOSE, NORI N Ot Z92.21 10/23/2015 Ot Z01.818 10/27/2015 DERICK DAMON, LOUIS M Ot E11.9 TYPE 2 DIABETES MELLITUS WITHOUT COMPLIC 10/27/2015 DERICK DAMON, LOUIS M Ot Z08 ENCNTR FOR FOLLOW-UP EXAM AFTER TRTMT FO 10/27/2015 DERICK DAMON, LOUIS M Ot Z85.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 O 10/28/2015 DERICK DAMON, LOUIS M Ot E11.9 10/28/2015 DERICK DAMON, LOUIS M Ot Z08 10/28/2015 DERICK DAMON, LOUIS M Ot Z85.038 10/29/2015 DERICK DAMON, LOUIS M Ot E11.9 10/29/2015 DERICK DAMON, LOUIS M Ot Z08 10/29/2015 DERICK DAMON, LOUIS M Ot Z85.038 10/31/2015 BETHANY DAMON, NOELLE Chavez Ot 571.8 10/31/2015 DERICK DAMON, LOUIS M Ot 153.9 10/31/2015 DERICK DAMON, LOUIS M Ot V72.63 10/31/2015 DERICK DAMON, LOUIS M Ot V74.8 10/31/2015 MARIAJOSE, BOBAN N Ot 153.9 10/31/2015 MARIAJOSE, BOBAN N Ot 153.9 10/31/2015 MARIAJOSE, NORI N Ot 793.6 10/31/2015 DERICK DAMON, LOUIS M Ot 153.9 10/31/2015 DERICK DAMON, LOUIS M Ot V72.84 10/31/2015 JASMIN VEGA Ot 153.6 10/31/2015 VEGAJASMIN S 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 Ot 250.00 10/31/2015 VEGAJASMIN S 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 Ot 585.3 10/31/2015 VEGAJASMIN S 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 Ot V58.67 10/31/2015 HANSEL DAMON, DESIREE M Ot 250.00 10/31/2015 VEGAJASMIN S 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 Ot 153.6 10/31/2015 VEGAJASMIN S 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 Ot 250.00 10/31/2015 VEGAJASMIN S 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 Ot 285.9 10/31/2015 VEGAJASMIN S 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 Ot V58.67 10/31/2015 VEGAJASMIN S 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 Ot V58.69 10/31/2015 VEGAJASMIN S 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 Ot 153.6 10/31/2015 VEGAJASMIN S 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 Ot 250.00 10/31/2015 VEGAJASMIN S 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 Ot 585.3 10/31/2015 VEGAJASMIN S 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 Ot V58.67 10/31/2015 VEGAJASMIN S 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 Ot V58.69 10/31/2015 VEGAJASMIN S 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 Ot 153.6 10/31/2015 VEGAJASMIN S 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 Ot 250.00 10/31/2015 VEGAJASMIN S 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 Ot 585.3 10/31/2015 VEGAJASMIN S 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 Ot V58.67 10/31/2015 VEGAJASMIN S 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 Ot V58.69 10/31/2015 HANSEL DAMON, DESIREE M Ot 244.8 10/31/2015 HANSEL DAMON, DESIREE M Ot 250.00 10/31/2015 VEGAJASMIN S 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 Ot 153.6 10/31/2015 VEGA, JASMIN S 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 Ot 250.00 10/31/2015 VEGA, JASMIN S 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 Ot 585.3 10/31/2015 VEGA, JASMIN S 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 Ot V58.67 10/31/2015 VEGA, JASMIN S 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 Ot V58.69 10/31/2015 VEGA, JASMIN S 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 Ot 153.6 10/31/2015 VEGA, JASMIN S 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 Ot 250.00 10/31/2015 VEGAJASMIN Contreras S 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 Ot 585.3 10/31/2015 VEGAJASMIN S 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 Ot V58.67 10/31/2015 VEGA, JASMIN S 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 Ot V58.69 10/31/2015 VEGAJASMIN S 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 Ot 153.9 10/31/2015 HANSEL DAMON, DESIREE M Ot 782.3 10/31/2015 HANSEL DAMON, DESIREE M Ot V76.12 10/31/2015 VEGAJASMIN S 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 Ot 153.6 10/31/2015 VEGA, JASIMN S 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 Ot 250.00 10/31/2015 VEGA, JASMIN S 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 Ot 585.3 10/31/2015 VEGA, JASMIN S 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 Ot V58.67 10/31/2015 VEGA, JASMIN S 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 Ot V58.69 10/31/2015 DERICK DAMON, LOUIS M Ot V72.84 10/31/2015 VEGAJASMIN S 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 Ot 153.6 10/31/2015 VEGAJASMIN S 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 Ot 250.00 10/31/2015 VEGAJASMIN S 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 Ot 585.3 10/31/2015 VEGAJASMIN S 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 Ot V58.67 10/31/2015 VEGAJASMIN S 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 Ot V58.69 10/31/2015 Ot C18.2 10/31/2015 Ot E11.22 10/31/2015 Ot N18.3 10/31/2015 Ot Z45.2 10/31/2015 Ot Z79.4 10/31/2015 Ot Z79.899 10/31/2015 Ot Z92.21 10/31/2015 MARIAJOSE, BOBAN N Ot C18.2 10/31/2015 MARIAJOSE, BOBAN N Ot E03.9 10/31/2015 MARIAJOSE, BOBAN N Ot E11.22 10/31/2015 MARIAJOSE, BOBAN N Ot N18.3 10/31/2015 MARIAJOSE, BOBAN N Ot Z45.2 10/31/2015 MARIAJOSE, BOBAN N Ot Z79.4 10/31/2015 MARIAJOSE, BOBAN N Ot Z79.899 10/31/2015 MARIAJOSE, BOBAN N Ot Z92.21 11/03/2015 CHINO SANDERS 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 Ot Z12.31 11/07/2015 NORI BILLY N Ot C18.2 MALIGNANT NEOPLASM OF ASCENDING COLON 11/07/2015 NORI BILLY N Ot E03.9 HYPOTHYROIDISM, UNSPECIFIED 11/07/2015 MARIAJOSENORI AGUILAR N Ot 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 11/07/2015 NORI BILLY N Ot N18.3 CHRONIC KIDNEY DISEASE, STAGE 3 (MODERAT 11/07/2015 NORI BILLY N Ot Z45.2 ENCOUNTER FOR ADJUSTMENT AND MANAGEMENT 11/07/2015 NORI BILLY N Ot Z79.4 INTERMEDIATE (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 11/07/2015 NORI BILLY N Ot Z79.899 OTHER REFERRAL AGENT (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 11/07/2015 NORI BILLY N Ot Z92.21 PERSONAL HISTORY OF ANTINEOPLASTIC CHEMO 11/14/2015 CHINO SANDERS 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 Ot Z12.31 ENCNTR SCREEN MAMMOGRAM FOR MALIGNANT NE 11/25/2015 JASMIN VEGA 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 Ot C18.2 MALIGNANT NEOPLASM OF ASCENDING COLON 11/25/2015 JASMIN VEGA 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 Ot C79.89 SECONDARY MALIGNANT NEOPLASM OF OTHER SP 11/25/2015 JASMIN VEGAP Ot D64.9 ANEMIA, UNSPECIFIED 11/25/2015 JASMIN VEGA 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 Ot E03.9 HYPOTHYROIDISM, UNSPECIFIED 11/25/2015 JASMIN VEGA 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 Ot 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 11/25/2015 JASMIN VEGAP Ot N18.3 CHRONIC KIDNEY DISEASE, STAGE 3 (MODERAT 11/25/2015 JASMIN VEGA 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 Ot Z79.4 REFERRAL AGENT (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 11/25/2015 JASMIN VEGA 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 Ot Z79.899 OTHER INTERMEDIATE (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 11/25/2015 JASMIN VEGA 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 Ot 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 11/25/2015 JASMIN VEGA 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 Ot Z92.21 PERSONAL HISTORY OF ANTINEOPLASTIC CHEMO 12/10/2015 JASMIN VEGA 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 Ot C18.2 MALIGNANT NEOPLASM OF ASCENDING COLON 12/10/2015 JASMIN VEGA 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 Ot C79.89 SECONDARY MALIGNANT NEOPLASM OF OTHER SP 12/10/2015 JASMIN VEGA 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 Ot D64.9 ANEMIA, UNSPECIFIED 12/10/2015 JASMIN VEGA 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 Ot E03.9 HYPOTHYROIDISM, UNSPECIFIED 12/10/2015 JASMIN VEGA 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 Ot 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 12/10/2015 JASMIN VEGA 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 Ot N18.3 CHRONIC KIDNEY DISEASE, STAGE 3 (MODERAT 12/10/2015 JASMIN VEGA 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 Ot Z79.4 INTERMEDIATE (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 12/10/2015 JASMIN VEGA 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 Ot Z79.899 OTHER REFERRAL AGENT (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 12/10/2015 JASMIN VEGA 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 Ot 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 12/10/2015 JASMIN VEGA 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 Ot Z92.21 PERSONAL HISTORY OF ANTINEOPLASTIC CHEMO 12/31/2015 MARIAJOSENORI AGUILAR N Ot C18.2 MALIGNANT NEOPLASM OF ASCENDING COLON 12/31/2015 MARIAJOSENORI AGUILAR N Ot E03.9 HYPOTHYROIDISM, UNSPECIFIED 12/31/2015 MARIAJOSE BOBAN N Ot 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 12/31/2015 MARIAJOSE BOBAN N Ot N18.3 CHRONIC KIDNEY DISEASE, STAGE 3 (MODERAT 12/31/2015 MARIAJOSE BOBAN N Ot Z45.2 ENCOUNTER FOR ADJUSTMENT AND MANAGEMENT 12/31/2015 MARIAJOSENORI AGUILAR N Ot Z79.4 INTERMEDIATE (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 12/31/2015 MARIAJOSENORI N Ot Z79.899 OTHER INTERMEDIATE (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 12/31/2015 MARIAJOSE BOBAN N Ot Z92.21 PERSONAL HISTORY OF ANTINEOPLASTIC CHEMO 01/01/2016 MARIAJOSE BOBAN N Ot C18.2 MALIGNANT NEOPLASM OF ASCENDING COLON 01/01/2016 MARIAJOSE BOBAN N Ot E03.9 HYPOTHYROIDISM, UNSPECIFIED 01/01/2016 MARIAJOSE BOBAN N Ot 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 01/01/2016 MARIAJOSESHANNAAN N Ot N18.3 CHRONIC KIDNEY DISEASE, STAGE 3 (MODERAT 01/01/2016 MARIAJOSE BOBAN N Ot Z45.2 ENCOUNTER FOR ADJUSTMENT AND MANAGEMENT 01/01/2016 MARIAJOSE BOBAN N Ot Z79.4 REFERRAL AGENT (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 01/01/2016 MARIAJOSE, BOBAN N Ot Z79.899 OTHER INTERMEDIATE (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 01/01/2016 MARIAJOSE, BOBAN N Ot 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.21 PERSONAL HISTORY OF ANTINEOPLASTIC CHEMO 01/28/2016 MARIAJOSE, BOBAN N Ot C18.2 MALIGNANT NEOPLASM OF ASCENDING COLON 01/28/2016 MARIAJOSE BOBAN N Ot E03.9 HYPOTHYROIDISM, UNSPECIFIED 01/28/2016 MARIAJOSE, BOBAN N Ot 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 01/28/2016 MARIAJOSE BOBAN N Ot N18.3 CHRONIC KIDNEY DISEASE, STAGE 3 (MODERAT 01/28/2016 MARIAJOSE BOBAN N Ot Z45.2 ENCOUNTER FOR ADJUSTMENT AND MANAGEMENT 01/28/2016 MARIAJOSE, BOBAN N Ot Z79.4 REFERRAL AGENT (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 01/28/2016 MARIAJOSE, BOBAN N Ot Z79.899 OTHER REFERRAL AGENT (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 01/28/2016 MARIAJOSE, BOBAN N Ot 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.21 PERSONAL HISTORY OF ANTINEOPLASTIC CHEMO 02/06/2016 MARIAJOSE, BOBAN N Ot C18.2 MALIGNANT NEOPLASM OF ASCENDING COLON 02/06/2016 MARIAJOSE BOBAN N Ot E03.9 HYPOTHYROIDISM, UNSPECIFIED 02/06/2016 MARIAJOSE, BOBAN N Ot 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 02/06/2016 MARIAJOSE, BOBAN N Ot N18.3 CHRONIC KIDNEY DISEASE, STAGE 3 (MODERAT 02/06/2016 MARIAJOSE BOBAN N Ot Z79.4 INTERMEDIATE (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 02/06/2016 MARIAJOSE BOBAN N Ot Z79.899 OTHER INTERMEDIATE (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 02/06/2016 MARIAJOSE, BOBAN N Ot Z92.21 PERSONAL HISTORY OF ANTINEOPLASTIC CHEMO 02/06/2016 ROSEANNE GARRISON LIAISON PLANNER Ot E03.9 HYPOTHYROIDISM, UNSPECIFIED 02/06/2016 ROSEANNE GARRISON LIAISON PLANNER Ot E11.9 TYPE 2 DIABETES MELLITUS WITHOUT COMPLIC 02/20/2016 ROSEANNE GARRISON LIAISON PLANNER Ot E03.9 HYPOTHYROIDISM, UNSPECIFIED 02/20/2016 ROSEANNE GARRISON LIAISON PLANNER Ot E11.9 TYPE 2 DIABETES MELLITUS WITHOUT COMPLIC 03/17/2016 MARIAJOSE, BOBAN N Ot C18.2 MALIGNANT NEOPLASM OF ASCENDING COLON 03/17/2016 MARIAJOSE, BOBAN N Ot E03.9 HYPOTHYROIDISM, UNSPECIFIED 03/17/2016 MARIAJOSE, BOBAN N Ot 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 03/17/2016 MARIAJOSE, BOBAN N Ot N18.3 CHRONIC KIDNEY DISEASE, STAGE 3 (MODERAT 03/17/2016 MARIAJOSE, BOBAN N Ot Z79.4 REFERRAL AGENT (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 03/17/2016 MARIAJOSE, BOBAN N Ot Z79.899 OTHER REFERRAL AGENT (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 03/17/2016 MARIAJOSE, BOBAN N Ot Z92.21 PERSONAL HISTORY OF ANTINEOPLASTIC CHEMO 04/26/2016 MARIAJOSE, BOBAN N Ot C18.2 MALIGNANT NEOPLASM OF ASCENDING COLON 04/26/2016 MARIAJOSE, BOBAN N Ot E03.9 HYPOTHYROIDISM, UNSPECIFIED 04/26/2016 MARIAJOSE, BOBAN N Ot 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 04/26/2016 MARIAJOSE, BOBAN N Ot N18.3 CHRONIC KIDNEY DISEASE, STAGE 3 (MODERAT 04/26/2016 MARIAJOSE, BOBAN N Ot Z79.4 REFERRAL AGENT (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 04/26/2016 MARIAJOSE, BOBAN N Ot Z79.899 OTHER INTERMEDIATE (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 04/26/2016 MARIAJOSE, BOBAN N Ot Z92.21 PERSONAL HISTORY OF ANTINEOPLASTIC CHEMO 04/30/2016 MARIAJOSE, BOBAN N Ot C18.2 MALIGNANT NEOPLASM OF ASCENDING COLON 04/30/2016 MARIAJOSE, BOBAN N Ot E03.9 HYPOTHYROIDISM, UNSPECIFIED 04/30/2016 MARIAJOSE, BOBAN N Ot 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 04/30/2016 MARIAJOSE, BOBAN N Ot N18.3 CHRONIC KIDNEY DISEASE, STAGE 3 (MODERAT 04/30/2016 MARIAJOSE, BOBAN N Ot Z79.4 REFERRAL AGENT (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 04/30/2016 MARIAJOSE, BOBAN N Ot Z79.899 OTHER INTERMEDIATE (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 04/30/2016 MARIAJOSE, BOBAN N Ot 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.21 PERSONAL HISTORY OF ANTINEOPLASTIC CHEMO 06/10/2016 MARIAJOSE, BOBAN N Ot C18.2 MALIGNANT NEOPLASM OF ASCENDING COLON 06/10/2016 MARIAJOSE, BOBAN N Ot E03.9 HYPOTHYROIDISM, UNSPECIFIED 06/10/2016 MARIAJOSE, BOBAN N Ot 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 06/10/2016 MARIAJOSE, BOBAN N Ot N18.3 CHRONIC KIDNEY DISEASE, STAGE 3 (MODERAT 06/10/2016 MARIAJOSE BOBAN N Ot Z79.4 INTERMEDIATE (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 06/10/2016 MARIAJOSE, BOBAN N Ot Z79.899 OTHER REFERRAL AGENT (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 06/10/2016 MARIAJOSE, BOBAN N Ot Z92.21 PERSONAL HISTORY OF ANTINEOPLASTIC CHEMO 07/28/2016 MARIAJOSE, BOBAN N Ot C18.2 MALIGNANT NEOPLASM OF ASCENDING COLON 07/28/2016 MARIAJOSE, BOBAN N Ot E03.9 HYPOTHYROIDISM, UNSPECIFIED 07/28/2016 MARIAJOSE, BOBAN N Ot 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 07/28/2016 MARIAJOSE BOBAN N Ot N18.3 CHRONIC KIDNEY DISEASE, STAGE 3 (MODERAT 07/28/2016 MARIAJOSE, BOBAN N Ot Z79.4 REFERRAL AGENT (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 07/28/2016 MARIAJOSE, BOBAN N Ot Z79.899 OTHER INTERMEDIATE (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 07/28/2016 MARIAJOSE, BOBAN N Ot Z92.21 PERSONAL HISTORY OF ANTINEOPLASTIC CHEMO 07/30/2016 MARIAJOSE, BOBAN N Ot C18.2 MALIGNANT NEOPLASM OF ASCENDING COLON 07/30/2016 MARIAJOSE BOBAN N Ot E03.9 HYPOTHYROIDISM, UNSPECIFIED 07/30/2016 MARIAJOSE, BOBAN N Ot 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 07/30/2016 MARIAJOSE BOBAN N Ot N18.3 CHRONIC KIDNEY DISEASE, STAGE 3 (MODERAT 07/30/2016 MARIAJOSE, BOBAN N Ot Z79.4 REFERRAL AGENT (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 07/30/2016 MARIAJOSE, BOBAN N Ot Z79.899 OTHER REFERRAL AGENT (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 07/30/2016 MARIAJOSE, BOBAN N Ot Z92.21 PERSONAL HISTORY OF ANTINEOPLASTIC CHEMO 10/08/2016 MARIAJOSE, BOBAN N Ot C18.2 MALIGNANT NEOPLASM OF ASCENDING COLON 10/08/2016 MARIAJOSE BOBAN N Ot E03.9 HYPOTHYROIDISM, UNSPECIFIED 10/08/2016 MARIAJOSE, BOBAN N Ot 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 10/08/2016 NORI BILLY N Ot N18.3 CHRONIC KIDNEY DISEASE, STAGE 3 (MODERAT 10/08/2016 NORI BILLY N Ot R82.99 OTHER ABNORMAL FINDINGS IN URINE 10/08/2016 NORI BILLY N Ot Z79.4 INTERMEDIATE (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 10/08/2016 NORI BILLY N Ot Z79.899 OTHER REFERRAL AGENT (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 10/08/2016 NORI BILLY N Ot Z92.21 PERSONAL HISTORY OF ANTINEOPLASTIC CHEMO 10/18/2016 NORI BILLY N Ot C18.2 MALIGNANT NEOPLASM OF ASCENDING COLON 10/18/2016 NORI BILLY N Ot E03.9 HYPOTHYROIDISM, UNSPECIFIED 10/18/2016 NORI BILLY N Ot 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 10/18/2016 NORI BILLY N Ot N18.3 CHRONIC KIDNEY DISEASE, STAGE 3 (MODERAT 10/18/2016 NORI BILLY N Ot R82.99 OTHER ABNORMAL FINDINGS IN URINE 10/18/2016 NORI BILLY N Ot Z79.4 INTERMEDIATE (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 10/18/2016 NORI BILLY N Ot Z79.899 OTHER REFERRAL AGENT (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 10/18/2016 NORI BILLY N Ot Z92.21 PERSONAL HISTORY OF ANTINEOPLASTIC CHEMO 10/18/2016 Ot 793.82 INCONCLUSIVE MAMMOGRAM 10/18/2016 Ot V76.12 OTH SCREEN MAMMO-MALIGN NEOPLASM OF LIANA 10/18/2016 DESIREE HAMM MD Ot V76.12 OTH SCREEN MAMMO-MALIGN NEOPLASM OF LIANA 10/18/2016 NORI BILLY N Ot C18.2 MALIGNANT NEOPLASM OF ASCENDING COLON 10/18/2016 NORI BILLY N Ot E03.9 HYPOTHYROIDISM, UNSPECIFIED 10/18/2016 NORI BILLY N Ot 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 10/18/2016 NORI BILLY N Ot N18.3 CHRONIC KIDNEY DISEASE, STAGE 3 (MODERAT 10/18/2016 NORI BILLY N Ot R82.99 OTHER ABNORMAL FINDINGS IN URINE 10/18/2016 NORI BILLY N Ot Z79.4 REFERRAL AGENT (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 10/18/2016 NORI BILLY N Ot Z79.899 OTHER INTERMEDIATE (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 10/18/2016 NORI BILLY N Ot Z92.21 PERSONAL HISTORY OF ANTINEOPLASTIC CHEMO 10/27/2016 NORI BILLY N Ot C18.2 MALIGNANT NEOPLASM OF ASCENDING COLON 10/27/2016 NORI BILLY N Ot E03.9 HYPOTHYROIDISM, UNSPECIFIED 10/27/2016 NORI BILLY N Ot 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 10/27/2016 NORI BILLY N Ot N18.3 CHRONIC KIDNEY DISEASE, STAGE 3 (MODERAT 10/27/2016 NORI BILLY N Ot R82.99 OTHER ABNORMAL FINDINGS IN URINE 10/27/2016 NORI BILLY N Ot Z45.2 ENCOUNTER FOR ADJUSTMENT AND MANAGEMENT 10/27/2016 NORI BILLY N Ot Z79.4 INTERMEDIATE (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 10/27/2016 NORI BILLY N Ot Z79.899 OTHER REFERRAL AGENT (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 10/27/2016 NORI BILLY N Ot Z92.21 PERSONAL HISTORY OF ANTINEOPLASTIC CHEMO 10/28/2016 DERICK DAMON, LOUIS Jauregui Ot C18.2 MALIGNANT NEOPLASM OF ASCENDING COLON 10/28/2016 DERICK DAMON, L[place]IS Jauregui Ot Z01.818 ENCOUNTER FOR OTHER PREPROCEDURAL EXAMIN 10/29/2016 NORI BILLY N Ot C18.2 MALIGNANT NEOPLASM OF ASCENDING COLON 10/29/2016 NORI BILLY N Ot E03.9 HYPOTHYROIDISM, UNSPECIFIED 10/29/2016 NORI BILLY N Ot 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 10/29/2016 NORI BILLY N Ot N18.3 CHRONIC KIDNEY DISEASE, STAGE 3 (MODERAT 10/29/2016 NORI BILLY N Ot R82.99 OTHER ABNORMAL FINDINGS IN URINE 10/29/2016 NORI BILLY N Ot Z45.2 ENCOUNTER FOR ADJUSTMENT AND MANAGEMENT 10/29/2016 NORI BILLY N Ot Z79.4 REFERRAL AGENT (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 10/29/2016 NORI BILLY N Ot Z79.899 OTHER REFERRAL AGENT (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 10/29/2016 NORI BILLY N Ot Z92.21 PERSONAL HISTORY OF ANTINEOPLASTIC CHEMO 11/03/2016 LOUIS SEPULVEDA MD Ot C18.2 MALIGNANT NEOPLASM OF ASCENDING COLON 11/03/2016 LOUIS SEPULVEDA MD Ot E11.9 TYPE 2 DIABETES MELLITUS WITHOUT COMPLIC 11/03/2016 LOUIS SEPULVEDA MD Ot Z11.2 ENCOUNTER FOR SCREENING FOR OTHER BACTER 11/04/2016 LOUIS SEPULVEDA MD, Ot C18.2 MALIGNANT NEOPLASM OF ASCENDING COLON 11/04/2016 LOUIS SEPULVEDA MD, Ot E11.9 TYPE 2 DIABETES MELLITUS WITHOUT COMPLIC 11/04/2016 LOUIS SEPULVEDA MD, Ot Z11.2 ENCOUNTER FOR SCREENING FOR OTHER BACTER 11/25/2016 ROSEANNE GARRISON LIAISON PLANNER Ot 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 12/05/2016 ROSEANNE GARRISON LIAISON PLANNER Ot R92.8 OTH ABN AND INCONCLUSIVE FINDINGS ON DX 12/23/2016 ROSEANNE GARRISON LIAISON PLANNER Ot R92.8 OTH ABN AND INCONCLUSIVE FINDINGS ON DX 02/22/2017 DIA WILLARD MD, Ot E03.9 HYPOTHYROIDISM, UNSPECIFIED 02/22/2017 DIA WILLARD MD, Ot E11.9 TYPE 2 DIABETES MELLITUS WITHOUT COMPLIC 02/22/2017 DIA WILLARD MD, Ot M19.90 UNSPECIFIED OSTEOARTHRITIS, UNSPECIFIED 02/22/2017 DIA WILLARD MD, Ot M25.571 PAIN IN RIGHT ANKLE AND JOINTS OF RIGHT 02/22/2017 DIA WILLARD MD, Ot S83.91XA SPRAIN OF UNSPECIFIED SITE OF RIGHT KNEE 02/22/2017 DIA WILLARD MD, Ot S93.401A SPRAIN OF UNSPECIFIED LIGAMENT OF RIGHT 02/22/2017 DIA WILLARD MD, Ot Z79.4 REFERRAL AGENT (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 02/22/2017 DIA WILLARD MD, Ot Z79.82 REFERRAL AGENT (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 OF ASPIRIN 02/22/2017 DIA WILLARD MD, Ot Z82.49 FAMILY HX OF ISCHEM HEART DIS AND OTH DI 02/22/2017 DIA WILLARD MD, Ot Z85.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 O 02/22/2017 DIA WILLARD MD, Ot Z87.19 PERSONAL HISTORY OF OTHER DISEASES OF TH 02/22/2017 DIA WILLARD MD, Ot Z90.89 ACQUIRED ABSENCE OF OTHER ORGANS 02/24/2017 DIA WILLARD MD, Ot E03.9 HYPOTHYROIDISM, UNSPECIFIED 02/24/2017 DIA WILLARD MD, Ot E11.9 TYPE 2 DIABETES MELLITUS WITHOUT COMPLIC 02/24/2017 DIA WILLARD MD, Ot M19.90 UNSPECIFIED OSTEOARTHRITIS, UNSPECIFIED 02/24/2017 DIA WILLARD MD, Ot M25.571 PAIN IN RIGHT ANKLE AND JOINTS OF RIGHT 02/24/2017 DIA WILLARD MD, Ot S83.91XA SPRAIN OF UNSPECIFIED SITE OF RIGHT KNEE 02/24/2017 DIA WILLARD MD, Ot S93.401A SPRAIN OF UNSPECIFIED LIGAMENT OF RIGHT 02/24/2017 DIA WILLARD MD, Ot Z79.4 INTERMEDIATE (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 02/24/2017 DIA WILLARD MD, Ot Z79.82 REFERRAL AGENT (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 OF ASPIRIN 02/24/2017 DIA WILLARD MD, Ot Z82.49 FAMILY HX OF ISCHEM HEART DIS AND OTH DI 02/24/2017 DIA WILLARD MD, Ot Z85.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 O 02/24/2017 DIA WILLARD MD, Ot Z87.19 PERSONAL HISTORY OF OTHER DISEASES OF TH 02/24/2017 DIA WILLARD MD, Ot Z90.89 ACQUIRED ABSENCE OF OTHER ORGANS 04/20/2017 NORI BILLY Ot C18.2 MALIGNANT NEOPLASM OF ASCENDING COLON 04/20/2017 NORI BILLY Ot E03.9 HYPOTHYROIDISM, UNSPECIFIED 04/20/2017 NORI BILLY Ot 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 04/20/2017 NORI BILLY Ot N18.3 CHRONIC KIDNEY DISEASE, STAGE 3 (MODERAT 04/20/2017 NORI BILLY Ot R82.99 OTHER ABNORMAL FINDINGS IN URINE 04/20/2017 NORI BILLY Ot Z79.4 REFERRAL AGENT (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 04/20/2017 NORI BILLY Ot Z79.899 OTHER INTERMEDIATE (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 04/20/2017 NORI BILLY Ot Z92.21 PERSONAL HISTORY OF ANTINEOPLASTIC CHEMO 04/22/2017 MARIAJOSE, BOBAN N Ot C18.2 MALIGNANT NEOPLASM OF ASCENDING COLON 04/22/2017 MARIAJOSE, SHANNAAN N Ot E03.9 HYPOTHYROIDISM, UNSPECIFIED 04/22/2017 MARIAJOSE, BOBAN N Ot 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 04/22/2017 MARIAJOSE BOBAN N Ot N18.3 CHRONIC KIDNEY DISEASE, STAGE 3 (MODERAT 04/22/2017 MARIAJOSE BOBAN N Ot R82.99 OTHER ABNORMAL FINDINGS IN URINE 04/22/2017 MARIAJOSE BOBAN N Ot Z79.4 INTERMEDIATE (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 04/22/2017 MARIAJOSE BOBAN N Ot Z79.899 OTHER INTERMEDIATE (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 04/22/2017 MARIAJOSE, BOBAN N Ot Z92.21 PERSONAL HISTORY OF ANTINEOPLASTIC CHEMO 04/23/2017 MARIAJOSE BOBAN N Ot C18.2 MALIGNANT NEOPLASM OF ASCENDING COLON 04/23/2017 MARIAJOSE BOBAN N Ot D64.9 ANEMIA, UNSPECIFIED 04/23/2017 MARIAJOSE, BOBAN N Ot E03.9 HYPOTHYROIDISM, UNSPECIFIED 04/23/2017 MARIAJOSE, BOBAN N Ot 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 04/23/2017 MARIAJOSE, BOBAN N Ot N18.3 CHRONIC KIDNEY DISEASE, STAGE 3 (MODERAT 04/23/2017 MARIAJOSE BOBAN N Ot R82.99 OTHER ABNORMAL FINDINGS IN URINE 04/23/2017 MARIAJOSE BOBAN N Ot Z79.4 REFERRAL AGENT (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 04/23/2017 MARIAJOSE BOBAN N Ot Z79.899 OTHER INTERMEDIATE (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 04/23/2017 MARIAJOSE BOBAN N Ot Z92.21 PERSONAL HISTORY OF ANTINEOPLASTIC CHEMO 04/28/2017 MARIAJOSE BOBAN N Ot C18.2 MALIGNANT NEOPLASM OF ASCENDING COLON 04/28/2017 MARIAJOSE, BOBAN N Ot D64.9 ANEMIA, UNSPECIFIED 04/28/2017 MARIAJOSE, BOBAN N Ot E03.9 HYPOTHYROIDISM, UNSPECIFIED 04/28/2017 MARIAJOSE, BOBAN N Ot 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 04/28/2017 MARIAJOSE BOBAN N Ot N18.3 CHRONIC KIDNEY DISEASE, STAGE 3 (MODERAT 04/28/2017 MARIAJOSE BOBAN N Ot R82.99 OTHER ABNORMAL FINDINGS IN URINE 04/28/2017 NORI BILLY N Ot Z79.4 INTERMEDIATE (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 04/28/2017 NORI BILLY N Ot Z79.899 OTHER REFERRAL AGENT (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 04/28/2017 NORI BILLY N Ot Z92.21 PERSONAL HISTORY OF ANTINEOPLASTIC CHEMO 04/30/2017 NORI BILLY N Ot C18.2 MALIGNANT NEOPLASM OF ASCENDING COLON 04/30/2017 NORI BILLY N Ot D64.9 ANEMIA, UNSPECIFIED 04/30/2017 NORI BILLY N Ot E03.9 HYPOTHYROIDISM, UNSPECIFIED 04/30/2017 NORI BILLY N Ot 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 04/30/2017 NORI BILLY N Ot N18.3 CHRONIC KIDNEY DISEASE, STAGE 3 (MODERAT 04/30/2017 NORI BILLY N Ot R82.99 OTHER ABNORMAL FINDINGS IN URINE 04/30/2017 NORI BILLY N Ot Z79.4 INTERMEDIATE (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 04/30/2017 NORI BILLY N Ot Z79.899 OTHER INTERMEDIATE (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 04/30/2017 NORI BILLY N Ot Z92.21 PERSONAL HISTORY OF ANTINEOPLASTIC CHEMO 06/23/2017 CLARENCE LEAL MD Ot E03.9 HYPOTHYROIDISM, UNSPECIFIED 06/23/2017 CLARENCE LEAL MD Ot E11.649 TYPE 2 DIABETES MELLITUS WITH HYPOGLYCEM 06/23/2017 CLARENCE LEAL MD Ot M19.90 UNSPECIFIED OSTEOARTHRITIS, UNSPECIFIED 06/23/2017 CLARENCE LEAL MD Ot Z79.4 REFERRAL AGENT (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 06/23/2017 CLARENCE LEAL MD Ot Z79.82 INTERMEDIATE (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 OF ASPIRIN 06/23/2017 CLARENCE LEAL MD Ot Z82.49 FAMILY HX OF ISCHEM HEART DIS AND OTH DI 06/23/2017 CLARENCE LEAL MD Ot Z85.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 O 06/23/2017 CLARENCE LEAL MD Ot Z87.19 PERSONAL HISTORY OF OTHER DISEASES OF TH 06/23/2017 CLARENCE LEAL MD Ot Z90.89 ACQUIRED ABSENCE OF OTHER ORGANS 09/15/2017 MELI, ROSEANNE M LIAISON PLANNER Ot M79.662 PAIN IN LEFT LOWER LEG 09/16/2017 ROSEANNE GARRISON LIAISON PLANNER Ot M79.662 PAIN IN LEFT LOWER LEG 10/12/2017 ROSEANNE GARRISON LIAISON PLANNER Ot M79.662 PAIN IN LEFT LOWER LEG 11/30/2017 TOMMY CHINO M 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 Ot M51.36 OTHER INTERVERTEBRAL DISC DEGENERATION, 11/30/2017 TOMMY CHINO M 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 Ot M79.605 PAIN IN LEFT LEG 12/05/2017 CHINO SANDERS 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 Ot M51.36 OTHER INTERVERTEBRAL DISC DEGENERATION, 12/05/2017 TOMMYCALVINYAZMIN Jauregui 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 Ot M79.605 PAIN IN LEFT LEG 12/14/2017 MARIAJOSE, BOBAN N Ot C18.2 MALIGNANT NEOPLASM OF ASCENDING COLON 12/14/2017 MARIAJOSE, BOBAN N Ot D64.9 ANEMIA, UNSPECIFIED 12/14/2017 MARIAJOSE, BOBAN N Ot E03.9 HYPOTHYROIDISM, UNSPECIFIED 12/14/2017 MARIAJOSE, BOBAN N Ot 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 12/14/2017 MARIAJOSE, BOBAN N Ot N18.3 CHRONIC KIDNEY DISEASE, STAGE 3 (MODERAT 12/14/2017 MARIAJOSE, BOBAN N Ot R82.99 OTHER ABNORMAL FINDINGS IN URINE 12/14/2017 MARIAJOSE BOBAN N Ot Z79.4 INTERMEDIATE (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 12/14/2017 MARIAJOSE BOBAN N Ot Z79.899 OTHER INTERMEDIATE (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 12/14/2017 MARIAJOSE BOBAN N Ot Z92.21 PERSONAL HISTORY OF ANTINEOPLASTIC CHEMO 12/22/2017 CHINO SANDERS 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 Ot M51.36 OTHER INTERVERTEBRAL DISC DEGENERATION, 12/22/2017 CHINO SANDERS 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 Ot M79.605 PAIN IN LEFT LEG 01/04/2018 MARIAJOSE, BOBAN N Ot C18.2 MALIGNANT NEOPLASM OF ASCENDING COLON 01/04/2018 MARIAJOSE BOBAN N Ot D64.9 ANEMIA, UNSPECIFIED 01/04/2018 MARIAJOSE, BOBAN N Ot E03.9 HYPOTHYROIDISM, UNSPECIFIED 01/04/2018 MARIAJOSE, BOBAN N Ot 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 01/04/2018 MARIAJOSE, BOBAN N Ot N18.3 CHRONIC KIDNEY DISEASE, STAGE 3 (MODERAT 01/04/2018 NORI BILLY N Ot R82.99 OTHER ABNORMAL FINDINGS IN URINE 01/04/2018 NORI BILLY N Ot Z79.4 INTERMEDIATE (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 01/04/2018 NORI BILLY N Ot Z79.899 OTHER INTERMEDIATE (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 01/04/2018 NORI BILLY N Ot Z92.21 PERSONAL HISTORY OF ANTINEOPLASTIC CHEMO 01/04/2018 CHINO SANDERS 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 Ot M43.16 SPONDYLOLISTHESIS, LUMBAR REGION 01/04/2018 CHINO SANDERS 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 Ot 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, 01/04/2018 CHINO SANDERS 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 Ot M99.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 TISS AND DISC STENOS OF INTVRT FORA 01/05/2018 NORI BILLY N Ot C18.2 MALIGNANT NEOPLASM OF ASCENDING COLON 01/05/2018 NORI BILLY N Ot D64.9 ANEMIA, UNSPECIFIED 01/05/2018 NORI BILLY N Ot E03.9 HYPOTHYROIDISM, UNSPECIFIED 01/05/2018 NORI BILLY N Ot 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 01/05/2018 NORI BILLY N Ot N18.3 CHRONIC KIDNEY DISEASE, STAGE 3 (MODERAT 01/05/2018 NORI BILLY N Ot R82.99 OTHER ABNORMAL FINDINGS IN URINE 01/05/2018 NORI BILLY N Ot Z79.4 INTERMEDIATE (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 01/05/2018 NORI BILLY N Ot Z79.899 OTHER REFERRAL AGENT (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 01/05/2018 NORI BILLY N Ot Z92.21 PERSONAL HISTORY OF ANTINEOPLASTIC CHEMO 01/09/2018 [employer] 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 Ot M43.16 SPONDYLOLISTHESIS, LUMBAR REGION 01/09/2018 [employer] PAINTER INTERIOR FINISH Ot 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, 01/09/2018 [employer] PAINTER INTERIOR FINISH Ot M99.73 CONN TISS AND DISC STENOS OF INTVRT FORA 02/02/2018 [employer] PAINTER INTERIOR FINISH Ot M43.16 SPONDYLOLISTHESIS, LUMBAR REGION 02/02/2018 [employer] PAINTER INTERIOR FINISH Ot 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, 02/02/2018 [employer] PAINTER INTERIOR FINISH Ot M99.73 CONN TISS AND DISC STENOS OF INTVRT FORA 04/06/2018 EFFIE CALDERON MD Ot C18.2 MALIGNANT NEOPLASM OF ASCENDING COLON 04/06/2018 EFFIE CALDERON MD Ot D64.9 ANEMIA, UNSPECIFIED 04/06/2018 EFFIE CALDERON MD Ot E03.9 HYPOTHYROIDISM, UNSPECIFIED 04/06/2018 EFFIE CALDERON MD Ot 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 04/06/2018 EFFIE CALDERON MD Ot N18.3 CHRONIC KIDNEY DISEASE, STAGE 3 (MODERAT 04/06/2018 EFFIE CALDERON MD Ot R82.99 OTHER ABNORMAL FINDINGS IN URINE 04/06/2018 EFFIE CALDERON MD Ot Z79.4 REFERRAL AGENT (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 04/06/2018 EFFIE CALDERON MD Ot Z79.899 OTHER REFERRAL AGENT (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 04/06/2018 EFFIE CALDERON MD Ot Z92.21 PERSONAL HISTORY OF ANTINEOPLASTIC CHEMO 04/07/2018 EFFIE CALDERON MD Ot C18.2 MALIGNANT NEOPLASM OF ASCENDING COLON 04/07/2018 EFFIE CALDERON MD Ot D64.9 ANEMIA, UNSPECIFIED 04/07/2018 EFFIE CALDERON MD Ot E03.9 HYPOTHYROIDISM, UNSPECIFIED 04/07/2018 EFFIE CALDERON MD Ot 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 04/07/2018 EFFIE CALDERON MD Ot N18.3 CHRONIC KIDNEY DISEASE, STAGE 3 (MODERAT 04/07/2018 EFFIE CALDERON MD Ot R82.99 OTHER ABNORMAL FINDINGS IN URINE 04/07/2018 EFFIE CALDERON MD Ot Z79.4 REFERRAL AGENT (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 04/07/2018 EFFIE CALDERON MD Ot Z79.899 OTHER REFERRAL AGENT (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 04/07/2018 EFFIE CALDERON MD Ot Z92.21 PERSONAL HISTORY OF ANTINEOPLASTIC CHEMO 04/23/2018 EFFIE CALDERON MD Ot C18.2 MALIGNANT NEOPLASM OF ASCENDING COLON 04/23/2018 EFFIE CALDERON MD Ot D64.9 ANEMIA, UNSPECIFIED 04/23/2018 EFFIE CALDERON MD Ot E03.9 HYPOTHYROIDISM, UNSPECIFIED 04/23/2018 EFFIE CALDERON MD Ot 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 04/23/2018 EFFIE CALDERON MD Ot N18.3 CHRONIC KIDNEY DISEASE, STAGE 3 (MODERAT 04/23/2018 EFFIE CALDERON MD Ot R82.99 OTHER ABNORMAL FINDINGS IN URINE 04/23/2018 EFFIE CALDERON MD Ot Z79.4 INTERMEDIATE (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 04/23/2018 EFFIE CALDERON MD Ot Z79.899 OTHER INTERMEDIATE (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 04/23/2018 EFFIE CALDERON MD Ot Z92.21 PERSONAL HISTORY OF ANTINEOPLASTIC CHEMO 04/25/2018 EFFIE CALDERON MD Ot C18.2 MALIGNANT NEOPLASM OF ASCENDING COLON 04/25/2018 EFFIE CALDERON MD Ot D64.9 ANEMIA, UNSPECIFIED 04/25/2018 EFFIE CALDERON MD Ot E03.9 HYPOTHYROIDISM, UNSPECIFIED 04/25/2018 EFFIE CALDERON MD Ot 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 Results Test Result Range Bacterial urine culture - 07/29/16 12:05 URINE CULTURE RESULTS <10,000/ML NRG Capillary blood glucose measurement by glucometer (mass/volume) - 11/03/16 06: 11 Capillary blood glucose measurement by glucometer (mass/volume) 131 mg/dL 70-110 Methicillin resistant Staphylococcus aureus (MRSA) screening culture - 06:30 Methicillin resistant Staphylococcus aureus (MRSA) screening culture NEG NRG Complete blood count (CBC) with automated white blood cell (WBC) differential - 06/23/17 17:40 Blood leukocytes automated count (number/volume) 8.0 10*3/uL 4.3-11.0 Blood erythrocytes automated count (number/volume) 3.80 10*6/uL 4.35-5.85 Venous blood hemoglobin measurement (mass/volume) 11.4 g/dL 11.5-16.0 Blood hematocrit (volume fraction) 35 % 35-52 Automated erythrocyte mean corpuscular volume 92 [[id number]] 80-99 Automated erythrocyte mean corpuscular hemoglobin (mass per erythrocyte) 30 pg 25-34 Automated erythrocyte mean corpuscular hemoglobin concentration measurement ( mass/volume) 33 g/dL 32-36 Automated erythrocyte distribution width ratio 13.6 % 10.0-14.5 Automated blood platelet count (count/volume) 150 10*3/uL 130-400 Automated blood platelet mean volume measurement 10.8 [foz_us] 7.4-10.4 Automated blood neutrophils/100 leukocytes 65 % 42-75 Automated blood lymphocytes/100 leukocytes 25 % 12-44 Blood monocytes/100 leukocytes 7 % 0-12 Automated blood eosinophils/100 leukocytes 2 % 0-10 Automated blood basophils/100 leukocytes 0 % 0-10 Blood neutrophils automated count (number/volume) 5.2 10*3 1.8-7.8 Blood lymphocytes automated count (number/volume) 2.0 10*3 1.0-4.0 Blood monocytes automated count (number/volume) 0.6 10*3 0.0-1.0 Automated eosinophil count 0.2 10*3/uL 0.0-0.3 Automated blood basophil count (count/volume) 0.0 10*3/uL 0.0-0.1 Comprehensive metabolic panel - 06/23/17 17:40 Serum or plasma sodium measurement (moles/volume) 138 mmol/L 135-145 Serum or plasma potassium measurement (moles/volume) 3.5 mmol/L 3.6-5.0 Serum or plasma chloride measurement (moles/volume) 107 mmol/L 98-107 Carbon dioxide 25 mmol/L 21-32 Serum or plasma anion gap determination (moles/volume) 6 mmol/L 5-14 Serum or plasma urea nitrogen measurement (mass/volume) 17 mg/dL 7-18 Serum or plasma creatinine measurement (mass/volume) 0.84 mg/dL 0.60-1.30 Serum or plasma urea nitrogen/creatinine mass ratio 20 NRG Serum or plasma creatinine measurement with calculation of estimated glomerular filtration rate > NRG Serum or plasma glucose measurement (mass/volume) 196 mg/dL 70-105 Serum or plasma calcium measurement (mass/volume) 8.8 mg/dL 8.5-10.1 Serum or plasma total bilirubin measurement (mass/volume) 0.6 mg/dL 0.1-1.0 Serum or plasma alkaline phosphatase measurement (enzymatic activity/volume) 72 U/L 40-136 Serum or plasma aspartate aminotransferase measurement (enzymatic activity/ volume) 33 U/L 5-34 Serum or plasma alanine aminotransferase measurement (enzymatic activity/volume ) 19 U/L 0-55 Serum or plasma protein measurement (mass/volume) 6.5 g/dL 6.4-8.2 Serum or plasma albumin measurement (mass/volume) 3.5 g/dL 3.2-4.5 Serum or plasma lithium measurement (moles/volume) - 06/23/17 17:40 BNP level 79.2 pg/mL <100.0 Capillary blood glucose measurement by glucometer (mass/volume) - 06/23/17 17: 50 Capillary blood glucose measurement by glucometer (mass/volume) 165 mg/dL 70-110 Complete urinalysis with reflex to culture - 06/23/17 19:40 Urine color determination YELLOW NRG Urine clarity determination CLEAR NRG Urine pH measurement by test strip 6 5-9 Specific gravity of urine by test strip 1.010 1.016- 1.022 Urine protein assay by test strip, semi-quantitative 2+ NEGATIVE Urine glucose detection by automated test strip 3+ NEGATIVE Erythrocytes detection in urine sediment by light microscopy NEGATIVE NEGATIVE Urine ketones detection by automated test strip NEGATIVE NEGATIVE Urine nitrite detection by test strip NEGATIVE NEGATIVE Urine total bilirubin detection by test strip NEGATIVE NEGATIVE Urine urobilinogen measurement by automated test strip (mass/volume) NORMAL NORMAL Urine leukocyte esterase detection by dipstick 1+ NEGATIVE Automated urine sediment erythrocyte count by microscopy (number/high power field) NONE NRG Automated urine sediment leukocyte count by microscopy (number/high power field ) [HPF] NRG Bacteria detection in urine sediment by light microscopy NONE NRG Squamous epithelial cells detection in urine sediment by light microscopy 2-5 NRG Crystals detection in urine sediment by light microscopy NONE NRG Casts detection in urine sediment by light microscopy NONE NRG Mucus detection in urine sediment by light microscopy NEGATIVE NRG Complete urinalysis with reflex to culture NO NRG Encounters ACCT No. Visit Date/Time Discharge Status Pt. Type Provider Facility Loc./Unit Complaint [id number] 04/24/2018 01:22:00 04/24/2018 23:59:59 CLS Preadmit EFFIE CALDERON MD [facility] ONC [id number] 04/06/2018 10:34:00 04/23/2018 00:01:00 DIS Outpatient EFFIE CALDERON MD [facility] ONC [id number] 11/09/2017 09:52:00 01/04/2018 00:01:00 DIS Outpatient NORI BILLY [facility] ONC [id number] 01/03/2018 13:58:00 01/03/2018 23:59:59 CLS Outpatient CHINO SANDERS [facility] RAD LOW BACK PAIN AND LEFT LEG PAIN [id number] 11/29/2017 14:59:00 11/29/2017 23:59:59 CLS Outpatient CHINO SANDERSP [facility] RAD LOW BACK PAIN, L LEG PAIN [id number] 09/15/2017 11:09:00 09/15/2017 23:59:59 CLS Outpatient ROSEANNE GARRISON APRN [facility] RAD LEFT CALF PAIN [id number] 06/23/2017 17:38:00 06/23/2017 20:33:00 DIS Emergency MEL DAMON, CLARENCE Hall [facility] ER FALL [id number] 04/21/2017 10:21:00 04/23/2017 00:01:00 DIS Outpatient NORI BILLY [facility] ONC [id number] 02/22/2017 14:16:00 02/22/2017 16:45:00 DIS Emergency MONTSE DAMON, DIA Chavez [facility] ER FALL,RT ANKLE AND KNEE INJ [id number] 11/29/2016 09:27:00 11/29/2016 23:59:59 CLS Outpatient ROSEANNE GARRISON LIAISON PLANNER [facility] RAD RT BREAST ASYMMETRY [id number] 11/03/2016 05:56:00 11/03/2016 10:59:00 DIS Outpatient LOUIS SEPULVEDA MD [facility] SDC HISTORY COLON CANCER [id number] 11/01/2016 13:30:00 11/01/2016 13:30:00 CAN Preadmit LOUIS SEPULVEDA MD [facility] PREOP SCREENING [id number] 10/29/2016 13:30:00 10/29/2016 23:59:59 CLS Outpatient ROSEANNE GARRISON LIAISON PLANNER [facility] RAD SCREENING [id number] 10/27/2016 05:33:00 10/27/2016 11:55:00 DIS Outpatient LOUIS SEPULVEDA MD [facility] PREOP PORT REMOVAL [id number] 10/21/2016 09:39:00 10/27/2016 00:01:00 DIS Outpatient NORI BILLY [facility] ONC [id number] 06/10/2016 09:20:00 07/28/2016 00:01:00 DIS Outpatient NORI BILLY [facility] ONC [id number] 03/18/2016 08:39:00 04/26/2016 11:06:00 DIS Outpatient NORI BILLY [facility] ONC [id number] 02/05/2016 13:06:00 02/05/2016 23:59:59 CLS Outpatient ROSEANNE GARRISON LIAISON PLANNER [facility] LAB [id number] 12/24/2015 09:18:00 12/31/2015 00:01:00 DIS Outpatient NORI BILLY [facility] ONC [id number] 11/13/2015 10:50:00 11/13/2015 23:59:59 CLS Outpatient JASMIN VEGA PAINTER INTERIOR FINISH [facility] ONC [id number] 10/31/2015 10:01:00 10/31/2015 23:59:59 CLS Outpatient CHINO SANDERS PAINTER INTERIOR FINISH [facility] RAD [id number] 10/27/2015 09:20:00 10/27/2015 12:40:00 DIS Outpatient LOUIS SEPULVEDA MD [facility] SDC [id number] 07/09/2015 10:19:00 07/09/2015 23:59:59 CLS Outpatient NORI BILLY [facility] ONC [id number] 04/15/2015 08:30:00 04/23/2015 00:01:00 DIS Outpatient NORI BILLY [facility] ONC [id number] 03/04/2015 12:59:00 03/04/2015 23:59:59 CLS Outpatient JASMIN VEGA PAINTER INTERIOR FINISH [facility] ONC [id number] 01/02/2015 09:01:00 02/12/2015 00:01:00 DIS Outpatient NORI BILLY [facility] ONC [id number] 09/24/2014 09:54:00 11/12/2014 00:01:00 DIS Outpatient NORI BILLY [facility] ONC [id number] 09/09/2014 08:49:00 09/09/2014 23:59:59 CLS Outpatient LOUIS SEPULVEDA MD [facility] SDC [id number] 09/05/2014 06:12:00 09/05/2014 23:59:59 CLS Outpatient LOUIS SEPULVEDA MD [facility] PREOP [id number] 08/23/2014 09:45:00 08/23/2014 23:59:59 CLS Outpatient JASMIN VEGA PAINTER INTERIOR FINISH [facility] ONC [id number] 08/06/2014 14:30:00 08/06/2014 23:59:59 CLS Outpatient DESIREE HAMM MD [facility] RAD [id number] 07/08/2014 09:52:00 07/09/2014 00:01:00 DIS Outpatient NORI BILLY [facility] ONC [id number] 06/06/2014 08:20:00 06/06/2014 23:59:59 CLS Outpatient DESIREE HAMM MD [facility] RAD [id number] 05/21/2014 08:29:00 05/21/2014 23:59:59 CLS Outpatient JASMIN VEGA PAINTER INTERIOR FINISH [facility] RAD [id number] 04/17/2014 09:40:00 04/17/2014 23:59:59 CLS Outpatient JASMIN VEGA S PAINTER INTERIOR FINISH [facility] ONC [id number] 04/03/2014 08:23:00 04/09/2014 00:01:00 DIS Outpatient NORI BILLY [facility] ONC [id number] 03/21/2014 10:34:00 03/21/2014 23:59:59 CLS Outpatient VEGA HILAH S PAINTER INTERIOR FINISH [facility] ONC [id number] 03/06/2014 08:41:00 03/06/2014 23:59:59 CLS Outpatient DESIREE HAMM MD [facility] LAB [id number] 02/27/2014 09:12:00 02/27/2014 23:59:59 CLS Outpatient VEGA HILAH S PAINTER INTERIOR FINISH [facility] ONC [id number] 02/06/2014 10:25:00 02/06/2014 23:59:59 CLS Outpatient VEGA HILAH S PAINTER INTERIOR FINISH [facility] ONC [id number] 12/12/2013 13:24:00 01/02/2014 00:01:00 DIS Outpatient NORI BILLY [facility] ONC [id number] 12/05/2013 10:40:00 12/05/2013 23:59:59 CLS Outpatient VEGA HILAH S PAINTER INTERIOR FINISH [facility] ONC [id number] 11/14/2013 10:19:00 11/14/2013 23:59:59 CLS Outpatient DESIREE HAMM MD [facility] LAB [id number] 10/24/2013 09:53:00 10/24/2013 23:59:59 CLS Outpatient VEGA HILAH S PAINTER INTERIOR FINISH [facility] ONC [id number] 10/12/2013 06:38:00 10/12/2013 13:00:00 DIS Outpatient LOUIS SEPULVEDA MD [facility] [id number] 10/10/2013 07:23:00 10/10/2013 23:59:59 CLS Outpatient LOUIS SEPULVEDA MD [facility] PREOP [id number] 10/09/2013 05:49:00 10/09/2013 23:59:59 CLS Outpatient NORI BILLY [facility] RAD [id number] 10/02/2013 09:57:00 10/02/2013 23:59:59 CLS Outpatient NORI BILLY [facility] RAD [id number] 09/12/2013 05:51:00 09/18/2013 18:00:00 DIS Inpatient LOUIS SEPULVEDA MD [facility] SURGICAL [id number] 09/10/2013 07:18:00 09/10/2013 10:25:00 DIS Outpatient LOUIS SEPULVEDA MD [facility] [id number] 09/07/2013 12:55:00 09/07/2013 23:59:59 CLS Outpatient LOUIS SEPULVEDA MD [facility] PREOP [id number] 09/06/2013 08:19:00 09/06/2013 23:59:59 CLS Outpatient NOELLE SIMS MD [facility] RAD [id number] 09/04/2013 08:54:00 09/04/2013 13:35:00 DIS Outpatient NOELLE SIMS MD [facility] [id number] 08/31/2013 08:00:00 08/31/2013 11:15:00 DIS Outpatient NOELLE SIMS MD [facility] [id number] 04/19/2013 10:47:00 04/19/2013 23:59:59 CLS Outpatient DESIREE HAMM MD [facility] RAD SCREENING [id number] 10/23/2015 05:40:00 Document Registration [id number] 08/21/2015 10:35:00 Document Registration [id number] 02/24/2012 13:57:00 Document Registration [id number] 12/24/2010 11:37:00 Document Registration [id number] 08/07/2010 09:30:00 Document Registration [id number] 06/02/2017 11:05:45 06/02/2017 23:59:59 CLS Outpatient [id number] 04/15/2015 08:30:25 ACT Document Registration
--- NOTE | 2018-06-17 11:29 | ED Back Pain ---
General Chief Complaint: Hip/Pelvic Problems Stated Complaint: R SIDE BACK PAIN Nursing Triage Note: TO ED WITH C/O R HIP PAIN AFTER GETTING OUT OF CHAIR. NO INJURY WORESE WITH MOVING. Nursing Sepsis Screen: No Definite Risk Source of Information: Patient Exam Limitations: No Limitations History of Present Illness Date Seen by Provider: Jun 17, 2018 Time Seen by Provider: 10:41 Initial Comments This 82-year-old woman presents to the emergency room with complaints of pain in the right lower back and toward the hip. This pain worsened after trying to get up out of a chair yesterday. It is worse with movement. She denies any acute injury but she has had injuries including a fall about a month ago and also a fall about a year ago. She has some more chronic pain associated with those injuries. She took some ibuprofen last night but has not taken anything for pain this morning. Allergies and Home Medications Allergies Coded Allergies: No Known Drug Allergies (Unverified , 12/24/10) Home Medications Aspirin 81 Mg Tablet.dr, 81 MG PO DAILY, (Reported) Carvedilol 25 Mg Tablet, 25 MG PO BID, (Reported) Docusate Sodium 100 Mg Tablet, 100 MG PO every other day, (Reported) Ferrous Sulfate 325 Mg Tablet, 325 MG PO DAILY, (Reported) Hum Insulin Nph/Reg Insulin Hm 10 Ml Vial, 18 UNITS SQ DAILY, (Reported) Insulin Glargine,Hum.rec.anlog 100 Unit/1 Ml Insuln.pen, 30 UNIT SQ HS, ( Reported) Levothyroxine Sodium 125 Mcg Tablet, 125 MCG PO DAILY, (Reported) Losartan Potassium 100 Mg Tablet, 100 MG PO DAILY, (Reported) Terazosin Hcl 5 Mg Capsule, 5 MG PO DAILY, (Reported) Tramadol HCl 50 Mg Tablet, 50 MG PO Q12H PRN for PAIN Prescribed by: LOUIS SEPULVEDA on 11/03/16 0918 Tramadol HCl 50 Mg Tablet, 50 MG PO Q6H PRN for PAIN Prescribed by: DIA WILLARD on 02/22/17 1635 Patient Home Medication List Home Medication List Reviewed: Yes Review of Systems Constitutional: no symptoms reported EENTM: no symptoms reported Respiratory: no symptoms reported Cardiovascular: no symptoms reported Gastrointestinal: no symptoms reported Genitourinary: no symptoms reported Musculoskeletal: see HPI Skin: no symptoms reported Psychiatric/Neurological: No Symptoms Reported Past Zerargx-Qnvrsx-Xvjimq Hx Patient Social History Alcohol Use: Denies Use Recreational Drug Use: No Smoking Status: Never a Smoker 2nd Hand Smoke Exposure: No Recent Foreign Travel: No Contact w/Someone Who Travel: No Recent Infectious Disease Expo: No Recent Hopitalizations: No Immunizations Up To Date Date of Pneumonia Vaccine: Sep 09, 2009 Date of Influenza Vaccine: Apr 24, 2013 Seasonal Allergies Seasonal Allergies: No Past Medical History Surgeries: Yes (hernia repair, left hand, right hemicolectomy, port) Abdominal, Tonsillectomy Respiratory: No Cardiac: Yes Hypertension Neurological: No Reproductive Disorders: No Gastrointestinal: Yes (COLON CANCER) Musculoskeletal: Yes Arthritis Endocrine: Yes Diabetes, Insulin dep, Hypothyroidsim Colon Psychosocial: No Integumentary: No Blood Disorders: No Family Medical History Family history: Cardiovascular disease 03 FATHER 03 MOTHER Family history: Diabetes mellitus 03 MOTHER 09 SISTER Family history: Hypertension 03 FATHER 03 MOTHER Myocardial infarction 03 FATHER 03 MOTHER Stroke 09 SISTER No Family History of: Abdominal aortic aneurysm Cancer Family history: Alzheimer's disease Family history: Arthritis Family history: Asthma Family history: Breast disease Family history: Gastrointestinal disease Family history: Thyroid disorder History of - anemia History of - respiratory disease Psychotic disorder Seizure disorder Physical Exam Vital Signs Vital Signs - First Documented 06/17/18 10:18 Temp 98.2 Pulse 64 Resp 18 B/P (MAP) 212/98 (136) Pulse Ox 98 O2 Delivery Room Air Capillary Refill : Less Than 3 Seconds Height, Weight, BMI Height: 4'11.00" Weight: 200lbs. 0.0oz. 90.922795es; 42.0 BMI Method:Stated General Appearance: WD/WN, Mild Distress HEENT: PERRL/EOMI, Normal ENT Inspection Neck: Normal Inspection Cardiovascular: Regular Rate, Rhythm, No Murmur Respiratory: Lungs Clear, Normal Breath Sounds, No Accessory Muscle Use Back: Normal Inspection, Other (mild tenderness in the paraspinous muscles of the lumbar region on the right. More significant point tenderness over the right SI joint.) Extremity: Other (no tenderness in the right hip. No pain with rotation or flexion of the hip.) Neurologic/Psychiatric: Alert, Oriented x3, No Motor/Sensory Deficits, Normal Mood/Affect, dye blender II-XII Norm as Tested Skin: Normal Color, Warm/Dry Progress/Results/Core Measures Results/Orders Lab Results Laboratory Tests Test 06/17/18 10:31 Range/Units Urine Color YELLOW Urine Clarity SLIGHTLY CLOUDY Urine pH 5 5-9 Urine Specific [place] 1.020 1.016-1.022 Urine Protein 3+ H NEGATIVE Urine Glucose (UA) NEGATIVE NEGATIVE Urine Ketones NEGATIVE NEGATIVE Urine Nitrite NEGATIVE NEGATIVE Urine Bilirubin NEGATIVE NEGATIVE Urine Urobilinogen NORMAL NORMAL MG/DL Urine Leukocyte Esterase 1+ H NEGATIVE Urine RBC (Auto) 1+ H NEGATIVE Urine RBC NONE /HPF Urine WBC NONE /HPF Urine Squamous Epithelial Cells 25-50 H /HPF Urine Crystals NONE /LPF Urine Bacteria MODERATE H /HPF Urine Casts NONE /LPF Urine Mucus SMALL H /LPF Urine Culture Indicated NO My Orders Orders - BRUNO JACKSON MD Ua Culture If Indicated (06/17/18 10:14) Ketorolac Injection (Toradol Injection) (06/17/18 11:00) Pelvis (06/17/18 10:49) Sacrum And Coccyx (06/17/18 10:49) Medications Given in ED Current Medications Medications Dose Ordered Sig/Srini Route Start Time Stop Time Status Last Admin Dose Admin Ketorolac Tromethamine 30 mg ONCE ONCE IM 06/17/18 11:00 06/17/18 11:01 DC 06/17/18 10:56 30 MG Vital Signs/I&O 06/17/18 06/17/18 06/17/18 10:18 10:40 12:33 Temp 98.2 Pulse 64 64 Resp 18 18 B/P (MAP) 212/98 (136) 189/75 (113) 209/79 (122) Pulse Ox 98 93 O2 Delivery Room Air Blood Pressure Mean: 113 Progress Progress Note : Progress Note Patient's pain was treated with Toradol which did improve her pain significantly. Patient was noted to be significantly hypertensive but states she missed the pills she takes twice a day. She is uncertain which medication that is but acknowledges it may be one of her antihypertensives. I advised her to take that medication upon returning home and to stop by Dr. Knox's office on Tuesday for a blood pressure check. Patient was also cool and shivering at the time her blood pressure was checked. She denied any secondary symptoms of hypertension such as blurred vision or headache. X-rays revealed arthritis but no acute injuries. Diagnostic Imaging Diagonstic Imaging: Xray Plain Films/CT/US/NM/MRI: pelvis Comments Pelvis x-ray viewed by me and report reviewed. See report below: NAME: RISHABH GARCIA [facility] REC#: [id number] PT STATUS: REG ER : 1935 PHYSICIAN: BRUNO JACKSON MD ADMIT DATE: 06/17/18/ER Signed Date of Exam: 06/17/18 PELVIS Indication: Pain in the right posterior hip. No known injury. Findings: There are moderate osteoarthritic changes present at both hips with joint space narrowing. Femoral heads demonstrate appropriate morphology without femoral head collapse. No plain film evidence of an acute fracture. There is no diastases of the pubic symphysis or SI joints. Pelvic ring appears intact. Advanced lower lumbar degenerative disc disease is noted. Impression: 1. Moderate hip osteoarthritic changes and advanced lower lumbar degenerative disc disease. There are no plain film findings of dislocation or acute fracture. Dictated by: Dictated on workstation # [id number] Dict: 06/17/18 1130 Trans: 06/17/18 1157 Interpreted by: VAISHALI GAMBOA MD Electronically signed by: VAISHALI GAMBOA MD 06/17/18 1157 Diagonstic Imaging: Xray Plain Films/CT/US/NM/MRI: other (sacrum and coccyx) Comments X-ray of the sacrum and coccyx viewed by me and report reviewed. See report below: NAME: RISHABH GARCIA [facility] REC#: [id number] PT STATUS: REG ER : 1935 PHYSICIAN: BRUNO JACKSON MD ADMIT DATE: 06/17/18/ER Signed Date of Exam: 06/17/18 SACRUM AND COCCYX 3 views of the sacrum and coccyx. Indication: Right hip pain. Findings: Marked advanced loss of disc space height with degenerative endplate changes present at L4-5 and L5-S1 with associated facet arthropathy. There is no cortical disruption evident of the sacrum or the coccyx. SI joints demonstrate mild to moderate osteoarthritic changes. Impression: 1. Advanced lower lumbar degenerative disc disease and facet arthropathy with severe disc space height loss and endplate sclerosis and osteophytes at L4-5 and L5-S1. There is a vacuum disc at L4-5. There is a grade 1 anterolisthesis of the L4-5 level. Dictated by: Dictated on workstation # [id number] Dict: 06/17/18 1131 Trans: 06/17/18 1157 Interpreted by: VAISHALI GAMBOA MD Electronically signed by: VAISHALI GAMBOA MD 06/17/18 1157 Departure Impression Primary Impression: Lower back pain Qualified Codes: M54.5 - Low back pain Additional Impressions: Osteoarthritis Qualified Codes: M19.90 - Unspecified osteoarthritis, unspecified site Sacroiliac joint pain Uncontrolled hypertension Disposition: 01 HOME, SELF-CARE Condition: Improved Departure-Patient Inst. Decision time for Depature: 12:40 Referrals: DC KNOX MD (PCP/Family) Primary Care Physician Patient Instructions: Osteoarthritis Add. Discharge Instructions: For your pain you may take Tylenol (acetaminophen) up to 1000 mg every 6 hours as needed. For pain not controlled by Tylenol, you may add ibuprofen (Advil) up to 400 mg every 6 hours as needed or Aleve (naproxen) up to 500 mg twice daily. Take with food or milk to avoid stomach irritation. Follow-up with your primary care provider as soon as possible. Discuss other options for treatment of your pain such as physical therapy. Gentle heat or gentle icing may also help with your pain. Topical products such as lidocaine patches may also be used. All discharge instructions reviewed with patient and/or family. Voiced understanding. Copy Copies To 1: DC KNOX MD, JOSHUA T MD Jun 17, 2018 11:29
[2018-06-17 11:41] LABS: SQUAMOUS EPITHELIAL CELL,UR 25-50 /HPF
[2018-06-17 11:42] LABS: BACTERIA,URINE MODERATE /HPF
--- NOTE | 2018-06-17 11:50 | Diagnostic Imaging Report ---
Indication: Pain in the right posterior hip. No known injury. Findings: There are moderate osteoarthritic changes present at both hips with joint space narrowing. Femoral heads demonstrate appropriate morphology without femoral head collapse. No plain film evidence of an acute fracture. There is no diastases of the pubic symphysis or SI joints. Pelvic ring appears intact. Advanced lower lumbar degenerative disc disease is noted. Impression: 1. Moderate hip osteoarthritic changes and advanced lower lumbar degenerative disc disease. There are no plain film findings of dislocation or acute fracture. Dictated by: Dictated on workstation # [id number]
--- NOTE | 2018-06-17 11:52 | Diagnostic Imaging Report ---
3 views of the sacrum and coccyx. Indication: Right hip pain. Findings: Marked advanced loss of disc space height with degenerative endplate changes present at L4-5 and L5-S1 with associated facet arthropathy. There is no cortical disruption evident of the sacrum or the coccyx. SI joints demonstrate mild to moderate osteoarthritic changes. Impression: 1. Advanced lower lumbar degenerative disc disease and facet arthropathy with severe disc space height loss and endplate sclerosis and osteophytes at L4-5 and L5-S1. There is a vacuum disc at L4-5. There is a grade 1 anterolisthesis of the L4-5 level. Dictated by: Dictated on workstation # [id number]
[2018-06-17 12:33] VITALS: BP 209/79
== END 2018-06-17 12:33 | disposition home or self-care (01) ==
LOC: EDUNIT# 10:10 → ER 10:11
DX: M54.5 Low back pain (principal); M53.3 Sacrococcygeal disorders, not elsewhere classified; I10 Essential (primary) hypertension; M47.816 Spondylosis without myelopathy or radiculopathy, lumbar region; E11.9 Type 2 diabetes mellitus without complications; E03.9 Hypothyroidism, unspecified; Z85.038 Personal history of other malignant neoplasm of large intestine; Z82.49 Family history of ischemic heart disease and other diseases of the circulatory system; Z79.82 Long term (current) use of aspirin; Z79.4 Long term (current) use of insulin; Z98.890 Other specified postprocedural states; Z90.89 Acquired absence of other organs
CPT/HCPCS: 72170; 72220; 81000; 96372

== ENCOUNTER 2018-10-05 11:00 | Outpatient (RCR) | payer MEDICARE ==
[~2018-10-05 11:00] MED LIST changes: +LOSA100T57 PO; -LOSA100T8 PO
[2018-10-05 11:18] LABS: BASOPHILS % (AUTO) 0 % (0-10); EOSINOPHILS # (AUTO) 0.2 10^3/uL (0.0-0.3); EOSINOPHILS % (AUTO) 3 % (0-10); HEMATOCRIT 37 % (35-52); HEMOGLOBIN 11.8 G/DL (11.5-16.0); LYMPHOCYTES # (AUTO) 2.7 X 10^3 (1.0-4.0); LYMPHOCYTES % (AUTO) 46 % (12-44); MEAN CORPUSCULAR HEMOGLOBIN 29 PG (25-34); MEAN CORPUSCULAR HGB CONC 32 G/DL (32-36); MEAN CORPUSCULAR VOLUME 90 FL (80-99); MEAN PLATELET VOLUME 10.8 FL (7.4-10.4); MONOCYTES # (AUTO) 0.6 X 10^3 (0.0-1.0); MONOCYTES % (AUTO) 9 % (0-12); NEUTROPHILS # (AUTO) 2.5 X 10^3 (1.8-7.8); NEUTROPHILS % (AUTO) 42 % (42-75); PLATELET COUNT 182 10^3/uL (130-400); RED CELL DISTRIBUTION WIDTH 14.2 % (10.0-14.5); WHITE BLOOD COUNT 5.9 10^3/uL (4.3-11.0)
[2018-10-05 11:37] LABS: ALBUMIN 3.7 GM/DL (3.2-4.5); BILIRUBIN,TOTAL 0.5 MG/DL (0.1-1.0); CALCIUM 9.2 MG/DL (8.5-10.1); CREATININE SERUM 1.01 MG/DL (0.60-1.30); POTASSIUM 3.8 MMOL/L (3.6-5.0); TOTAL PROTEIN 6.6 GM/DL (6.4-8.2)
== END 2019-01-03 | disposition home or self-care (01) ==
LOC: ONC 11:00
PROVIDERS: ATTEND Internal Medicine Hematology & Oncology
DX: C18.2 Malignant neoplasm of ascending colon (principal); D64.9 Anemia, unspecified; E11.22 Type 2 diabetes mellitus with diabetic chronic kidney disease; N18.3 Chronic kidney disease, stage 3 (moderate); E03.9 Hypothyroidism, unspecified; Z79.4 Long term (current) use of insulin; Z79.899 Other long term (current) drug therapy; Z92.21 Personal history of antineoplastic chemotherapy
CPT/HCPCS: 36415; 80053; 82378; 85025; 99213

== ENCOUNTER 2019-01-16 05:33 | Outpatient (CLI) | payer MEDICARE ==
[~2019-01-16] VITALS: Ht 149.9 cm; Wt 90.7 kg
[2019-01-16] MEDS ORDERED: CARV12.53 PO (15:03)
[2019-01-16] MEDS ORDERED: TERA5CAP3 PO (15:03)
[2019-01-16] MEDS ORDERED: LEVO100T7 PO (15:03)
[2019-01-16] MEDS ORDERED: HUM100IN4 SQ (15:03)
[2019-01-16] MEDS ORDERED: FOLI1TAB24 PO (15:03)
== END 2019-01-16 15:05 | disposition home or self-care (01) ==
LOC: PREOP 05:33
PROVIDERS: ATTEND Surgery
DX: Z01.818 Encounter for other preprocedural examination (principal)

== ENCOUNTER 2019-01-23 06:53 | Day surgery (SDC) | payer MEDICARE ==
[~2019-01-23] VITALS: Ht 149.9 cm; Wt 90.7 kg
[~2019-01-23 06:53] MED LIST changes: +CARV12.53 PO; +FOLI1TAB24 PO; +HUM100IN4 SQ; +LEVO100T7 PO; +TERA5CAP3 PO
[2019-01-23] MEDS ORDERED: LACTATED RINGERS 1,000 ML IV ONE (06:55)
[2019-01-23] MEDS ORDERED: LACTATED RINGERS 1,000 ML IV STA (07:07)
[2019-01-23] MEDS ORDERED: PROPOFOL INJECTION 50 ML IV ONE (07:20)
[2019-01-23] MEDS ORDERED: MIDAZOLAM 2 MG/2 ML (VERSED) VIAL ONE (07:21)
[2019-01-23] MEDS ORDERED: LIDOCAINE PF 2% 5 ML (XYLOCAINE) VIAL ONE (07:21)
[2019-01-23] MEDS ORDERED: fentaNYL INJECTION 250 MCG/5 ML AMP ONE (07:21)
[2019-01-23 07:22] VITALS: BP 163/64
[2019-01-23] MEDS ORDERED: fentaNYL INJECTION 100 MCG/2 ML AMP ONE (07:26)
--- NOTE | 2019-01-23 07:32 | Progress Note-Pre Operative ---
Pre-Operative Progress Note H&P Reviewed The H&P was reviewed, patient examined and no changes noted. Date Seen by Provider: Jan 23, 2019 Time Seen by Provider: 07:32 Date H&P Reviewed: Jan 23, 2019 Time H&P Reviewed: 07:32 Pre-Operative Diagnosis: hx colon cancer SAVANNAH MATHEWS DO Jan 23, 2019 07:32
--- OUTSIDE RECORDS SUMMARY | 2019-01-23 07:47 | XMS REPORT | CCD ---
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 05/15/2018 %Hba1C Nkv756 Gluc Ave 177 mg/dL 05/15/2018 Comp Metabolic Qag517 NA 139 mEq/L 11/28/2017 Comp Metabolic Dpf184 K 4.1 mEq/L 11/28/2017 Comp Metabolic Vls008 CL 105 mEq/L 11/28/2017 Comp Metabolic Xak202 CO2 26.0 mEq/L 11/28/2017 Comp Metabolic Zbn804 ANION GAP 12 11/28/2017 Comp Metabolic Mfq225 GLUCOSE 132 mg/dL 11/28/2017 Comp Metabolic Vsg300 Creat 0.9 mg/dL 11/28/2017 Comp Metabolic Dae601 eGFR 66 ml/min/1.73m2 11/28/2017 Comp Metabolic Cjt738 BUN 17 mg/dL 11/28/2017 Comp Metabolic Pck819 B/C Ratio 19.5 Ratio 11/28/2017 Comp Metabolic Izw178 CALCIUM 9.1 mg/dL 11/28/2017 Comp Metabolic Fdi162 ALK PHOS 78 U/L 11/28/2017 Comp Metabolic Uwa744 AST(SGOT) 35 U/L 11/28/2017 Comp Metabolic Dod800 ALT(SGPT) 17 U/L 11/28/2017 Comp Metabolic Uah693 BILI T 0.6 mg/dL 11/28/2017 Comp Metabolic Qpx721 ALBUMIN 3.9 g/dL 11/28/2017 Comp Metabolic Xfu357 TPRO 6.4 g/dL 11/28/2017 Comp Metabolic Gwi399 GLOB 2.5 g/dL 11/28/2017 Comp Metabolic Cqx430 A/G Ratio 1.6 Ratio 11/28/2017 Comp Metabolic Cek798 Osmo 281 mOsmo 11/28/2017 Tsh Ord6 TSH (3rd IS) 1.14 uIU/mL 11/28/2017 Free T4 Glx313 FREE T4 1.05 ng/dL 11/28/2017 %Hba1C Lho056 % HbA1c 49079- 6 7.7 % 11/25/2017 %Hba1C Awc127 Gluc Ave 174 mg/dL 11/25/2017 Cbc With Differential Ord2 WBC 6.44 K/ul 11/25/2017 Cbc With Differential Ord2 RBC 4.13 M/ul 11/25/2017 Cbc With Differential Ord2 HGB 12.3 g/dl 11/25/2017 Cbc With Differential Ord2 HCT 37.8 % 11/25/2017 Cbc With Differential Ord2 Neut% 46.4 % 11/25/2017 Cbc With Differential Ord2 MCV 91.5 fl 11/25/2017 Cbc With Differential Ord2 Lymph% 39.8 % 11/25/2017 Cbc With Differential Ord2 MCH 29.8 pg 11/25/2017 Cbc With Differential Ord2 [place]% 10.2 % 11/25/2017 Cbc With Differential Ord2 MCHC 32.5 pg 11/25/2017 Cbc With Differential Ord2 Eos% 3.3 % 11/25/2017 Cbc With Differential Ord2 PLT 175 K/ul 11/25/2017 Cbc With Differential Ord2 Baso% 0.3 % 11/25/2017 Cbc With Differential Ord2 RDW 14.5 % 11/25/2017 Cbc With Differential Ord2 Neut ABS# 2.99 K/ul 11/25/2017 Cbc With Differential Ord2 Lymph ABS# 2.56 K/ul 11/25/2017 Cbc With Differential Ord2 [place] ABS# 0.7 K/ul 11/25/2017 Cbc With Differential [...] 30.3 pg 05/19/2017 Cbc With Differential Ord2 [place]% 6.8 % 05/19/2017 Cbc With Differential Ord2 MCHC 32.3 pg 05/19/2017 Cbc With Differential Ord2 Eos% 1.9 % 05/19/2017 Cbc With Differential Ord2 PLT 174 K/ul 05/19/2017 Cbc With Differential Ord2 Baso% 0.1 % 05/19/2017 Cbc With Differential Ord2 RDW 14.0 % 05/19/2017 Cbc With Differential Ord2 Neut ABS# 5.69 K/ul 05/19/2017 Cbc With Differential Ord2 Lymph ABS# 1.64 K/ul 05/19/2017 Cbc With Differential Ord2 [place] ABS# 0.6 K/ul 05/19/2017 Cbc With Differential Ord2 Eos ABS# 0.2 K/ul 05/19/2017 Cbc With Differential Ord2 Baso ABS# 0.0 K/ul 05/19/2017 B12 Mwu739 B12 >1500.00 pg/ml 05/19/2017 Free T4 Avf611 FREE T4 1.10 ng/dL 05/19/2017 %Hba1C Ang636 % HbA1c 91072- 6 6.8 % 05/19/2017 %Hba1C Yin802 Gluc Ave 148 mg/dL 05/19/2017 Tsh Ord6 hTSH II 1.73 uIU/mL 05/19/2017 Comp Metabolic Svp640 NA 140 mEq/L 05/19/2017 Comp Metabolic Pmt349 K 3.8 mEq/L 05/19/2017 Comp Metabolic Sho133 CL 108 mEq/L 05/19/2017 Comp Metabolic Ewa597 CO2 21.0 mEq/L 05/19/2017 Comp Metabolic Vjz267 ANION GAP 15 05/19/2017 Comp Metabolic Pjp290 GLUCOSE 207 mg/dL 05/19/2017 Comp Metabolic Aqv208 Creat 1.0 mg/dL 05/19/2017 Comp Metabolic Rbx250 eGFR 55 ml/min/1.73m2 05/19/2017 Comp Metabolic Bvd586 BUN 21 mg/dL 05/19/2017 Comp Metabolic Igy975 B/C Ratio 20.4 Ratio 05/19/2017 Comp Metabolic Svv918 CALCIUM 9.1 mg/dL 05/19/2017 Comp Metabolic Iwa445 ALK PHOS 74 U/L 05/19/2017 Comp Metabolic Saf106 AST(SGOT) 32 U/L 05/19/2017 Comp Metabolic Fad726 ALT(SGPT) 15 U/L 05/19/2017 Comp Metabolic Jaa039 BILI T 0.6 mg/dL 05/19/2017 Comp Metabolic Lii879 ALBUMIN 3.9 g/dL 05/19/2017 Comp Metabolic Cid194 TPRO 6.2 g/dL 05/19/2017 Comp Metabolic Arq825 GLOB 2.3 g/dL 05/19/2017 Comp Metabolic Pez419 A/G Ratio 1.6 Ratio 05/19/2017 Comp Metabolic Mvi422 Osmo 288 mOsmo 05/19/2017 Cbc With Differential [...] 29.3 pg 12/10/2016 Cbc With Differential Ord2 [place]% 7.1 % 12/10/2016 Cbc With Differential Ord2 [...] 2.50 K/ul 12/10/2016 Cbc With Differential Ord2 [place] ABS# 0.5 K/ul 12/10/2016 Cbc With Differential Ord2 Eos ABS# 0.1 K/ul 12/10/2016 Cbc With Differential Ord2 Baso ABS# 0.0 K/ul 12/10/2016 B12 Nve435 B12 222.00 pg/ml 12/10/2016 %Hba1C Nox733 % HbA1c 24567- 6 7.5 % 11/16/2016 %Hba1C Rvg776 Gluc Ave 169 mg/dL 11/16/2016 Free T4 Ubr590 FREE T4 1.03 ng/dL 11/16/2016 Comp Metabolic Tkl351 NA 138 mEq/L 11/16/2016 Comp Metabolic Xda656 K 3.8 mEq/L 11/16/2016 Comp Metabolic Rsh297 CL 103 mEq/L 11/16/2016 Comp Metabolic Xof052 CO2 26.0 mEq/L 11/16/2016 Comp Metabolic Olj553 ANION GAP 13 11/16/2016 Comp Metabolic Hzc762 GLUCOSE 235 mg/dL 11/16/2016 Comp Metabolic Qvt283 Creat 0.9 mg/dL 11/16/2016 Comp Metabolic Kcv603 eGFR 62 ml/min/1.73m2 11/16/2016 Comp Metabolic Abp421 BUN 20 mg/dL 11/16/2016 Comp Metabolic Nsc294 B/C Ratio 21.7 Ratio 11/16/2016 Comp Metabolic Mis768 CALCIUM 8.9 mg/dL 11/16/2016 Comp Metabolic Qup704 ALK PHOS 75 U/L 11/16/2016 Comp Metabolic Vyn746 AST(SGOT) 30 U/L 11/16/2016 Comp Metabolic Hqz987 ALT(SGPT) 13 U/L 11/16/2016 Comp Metabolic Dmm552 BILI T 0.6 mg/dL 11/16/2016 Comp Metabolic Zxt063 ALBUMIN 3.8 g/dL 11/16/2016 Comp Metabolic Fgo024 TPRO 6.8 g/dL 11/16/2016 Comp Metabolic Xve150 GLOB 3.1 g/dL 11/16/2016 Comp Metabolic Ynm260 A/G Ratio 1.2 Ratio 11/16/2016 Comp Metabolic Gmk646 Osmo 286 mOsmo 11/16/2016 Tsh Ord6 hTSH II 2.50 uIU/mL 11/16/2016 Tsh Ord6 hTSH II 3.18 uIU/mL 05/21/2016 Lipid Ord30 CHOL 212 mg/dL 05/21/2016 Lipid Ord30 HDL 43.0 mg/dl 05/21/2016 Lipid Ord30 TRIG 164 mg/dL 05/21/2016 Lipid Ord30 LDL 136 mg/dL 05/21/2016 Lipid Ord30 C/HDL 4.9 Ratio 05/21/2016 B12 Zpq360 B12 159.00 pg/ml 05/21/2016 %Hba1C Xtg331 % HbA1c 82826- 6 7.5 % 05/21/2016 %Hba1C Myd484 Gluc Ave 169 mg/dL 05/21/2016 Folate Ord36 Folate >23.80 ng/mL 05/21/2016 Free T4 Atx165 FREE T4 1.03 ng/dL 05/21/2016 CHEM 14 5577519 AST 33 U/L 03/15/2016 CHEM 14 9428527 ALT 13 U/L 03/15/2016 CHEM 14 9635785 BUN 18 mg/dL 03/15/2016 CHEM 14 0432926 ALBUMIN 3.9 g/dL 03/15/2016 CHEM 14 6313792 CHLORIDE 105 mmol/L 03/15/2016 CHEM 14 9189572 Bili Total 0.4 mg/dL 03/15/2016 CHEM 14 2864979 ALK PHOS 60 U/L 03/15/2016 CHEM 14 7161617 SODIUM 138 mmol/L 03/15/2016 CHEM 14 3520613 CREATININE 0.99 mg/dL 03/15/2016 CHEM 14 8506787 CALCIUM 9.4 mg/dL 03/15/2016 CHEM 14 5308400 POTASSIUM 3.8 mmol/L 03/15/2016 CHEM 14 2421139 TOTAL PROTEIN 6.7 g/dL 03/15/2016 CHEM 14 1075729 GLUCOSE 109 mg/dL 03/15/2016 CHEM 14 7509114 Bicarbonate 27 mmol/L 03/15/2016 CHEM 14 5150613 AGAP 6 mmol/L 03/15/2016 GFR CALC 9869600 GFR Non Afr Amr 54 mL/min 03/15/2016 GFR CALC 1251489 GFR Afr Amr >60 mL/min 03/15/2016 B12 Zjb723 B12 46.00 pg/ml 08/07/2015 Iron Ord72 Iron [...] Ord2 RDW 16.6 % 08/05/2015 Free T4 Eze313 FREE T4 1.33 ng/dL 08/05/2015 Comp Metabolic Yif718 NA 137 mEq/L 08/05/2015 Comp Metabolic Vro330 K 4.5 mEq/L 08/05/2015 Comp Metabolic Bzb079 CL 104 mEq/L 08/05/2015 Comp Metabolic Laz451 CO2 26.0 mEq/L 08/05/2015 Comp Metabolic Iyq592 ANION GAP 12 08/05/2015 Comp Metabolic Rgj155 GLUCOSE 146 mg/dL 08/05/2015 Comp Metabolic Hps377 Creat 1.0 mg/dL 08/05/2015 Comp Metabolic Heh123 eGFR 56 ml/min/1.73m2 08/05/2015 Comp Metabolic Bpm378 BUN 23 mg/dL 08/05/2015 Comp Metabolic Ctq646 B/C Ratio 22.8 Ratio 08/05/2015 Comp Metabolic Znc816 CALCIUM 9.3 mg/dL 08/05/2015 Comp Metabolic Mce282 ALK PHOS 71 U/L 08/05/2015 Comp Metabolic Oiw152 AST(SGOT) 33 U/L 08/05/2015 Comp Metabolic Gkr055 ALT(SGPT) 15 U/L 08/05/2015 Comp Metabolic Zsl119 BILI T 0.6 mg/dL 08/05/2015 Comp Metabolic Fda986 ALBUMIN 3.9 g/dL 08/05/2015 Comp Metabolic Bdn792 TPRO 6.5 g/dL 08/05/2015 Comp Metabolic Elj135 GLOB 2.6 g/dL 08/05/2015 Comp Metabolic Jow669 A/G Ratio 1.5 Ratio 08/05/2015 Comp Metabolic Ely277 Osmo 280 mOsmo 08/05/2015 Tsh Ord6 hTSH II 0.36 uIU/mL 08/05/2015 %Hba1C Mhx006 % HbA1c 95433- 6 8.1 % 08/05/2015 %Hba1C Hrj884 Gluc Ave 186 mg/dL 08/05/2015 Free T4 Ceb506 FREE T4 0.91 ng/dL 04/11/2015 %Hba1C Rbj441 % HbA1c 37716- 6 8.3 % 04/10/2015 %Hba1C Ssr174 Gluc Ave 192 mg/dL 04/10/2015 Cbc With [...] Ord2 RDW 15.8 % 04/10/2015 Comp Metabolic Csn781 NA 134 mEq/L 04/10/2015 Comp Metabolic Sie166 K 4.1 mEq/L 04/10/2015 Comp Metabolic Ack726 CL 105 mEq/L 04/10/2015 Comp Metabolic Gif769 CO2 26.0 mEq/L 04/10/2015 Comp Metabolic Ynz281 ANION GAP 7 04/10/2015 Comp Metabolic Lms983 GLUCOSE 126 mg/dL 04/10/2015 Comp Metabolic Ywb041 Creat 1.0 mg/dL 04/10/2015 Comp Metabolic Qec111 eGFR 58 ml/min/1.73m2 04/10/2015 Comp Metabolic Wef615 BUN 29 mg/dL 04/10/2015 Comp Metabolic Bcd056 B/C Ratio 29.6 Ratio 04/10/2015 Comp Metabolic Olq018 CALCIUM 9.3 mg/dL 04/10/2015 Comp Metabolic Man155 ALK PHOS 63 U/L 04/10/2015 Comp Metabolic Qmb592 AST(SGOT) 31 U/L 04/10/2015 Comp Metabolic Xtz619 ALT(SGPT) 14 U/L 04/10/2015 Comp Metabolic Ccd370 BILI T 0.6 mg/dL 04/10/2015 Comp Metabolic Pvv666 ALBUMIN 3.9 g/dL 04/10/2015 Comp Metabolic Srx622 TPRO 6.3 g/dL 04/10/2015 Comp Metabolic Okf020 GLOB 2.4 g/dL 04/10/2015 Comp Metabolic Kgb755 A/G Ratio 1.6 Ratio 04/10/2015 Comp Metabolic Zuk633 Osmo 276 mOsmo 04/10/2015 Tsh Ord6 hTSH II 6.71 uIU/mL 04/10/2015 Review of Systems System Result Effective Dates Constitutional No recent illness 12/12/2018 Constitutional No chills 12/12/2018 Constitutional No diaphoresis 12/12/2018 Constitutional No fever 12/12/2018 Eyes No blindness 12/12/2018 Ears/Nose/Throat/Neck No nasal allergies 12/12/2018 Ears/Nose/Throat/Neck No nasal discharge 12/12/2018 Cardiovascular No chest pain/pressure 12/12/2018 Cardiovascular No dyspnea 12/12/2018 Respiratory No chest congestion 12/12/2018 Respiratory No cough 12/12/2018 Respiratory dyspnea on exertion 12/12/2018 Respiratory No dyspnea 12/12/2018 Gastrointestinal No abdominal pain 12/12/2018 Genitourinary/Nephrology No dysuria 12/12/2018 Musculoskeletal back pain 12/12/2018 Dermatologic No rash 12/12/2018 Neurologic No alteration of consciousness 12/12/2018 Neurologic No mental status change 12/12/2018 Constitutional No recent illness 11/23/2018 Constitutional No chills 11/23/2018 Constitutional No diaphoresis 11/23/2018 Constitutional No fever 11/23/2018 Eyes No eye erythema 11/23/2018 Ears/Nose/Throat/Neck No nasal discharge 11/23/2018 Cardiovascular No chest pain/pressure 11/23/2018 Respiratory No cough 11/23/2018 Dermatologic skin lesion 11/23/2018 Neurologic No alteration of consciousness 11/23/2018 Neurologic No mental status change 11/23/2018 Constitutional No recent illness 08/15/2018 Constitutional No chills 08/15/2018 Constitutional No diaphoresis 08/15/2018 Constitutional No fever 08/15/2018 Eyes No blindness 08/15/2018 Ears/Nose/Throat/Neck No nasal allergies 08/15/2018 Ears/Nose/Throat/Neck No nasal discharge 08/15/2018 Cardiovascular No chest pain/pressure 08/15/2018 Cardiovascular No dyspnea 08/15/2018 Respiratory No chest congestion 08/15/2018 Respiratory No cough 08/15/2018 Respiratory dyspnea on exertion 08/15/2018 Respiratory No dyspnea 08/15/2018 Gastrointestinal No abdominal pain 08/15/2018 Genitourinary/Nephrology No dysuria 08/15/2018 Dermatologic No rash 08/15/2018 Neurologic No alteration of consciousness 08/15/2018 Neurologic No mental status change 08/15/2018 Musculoskeletal back pain 08/15/2018 Constitutional No recent illness 06/05/2018 Constitutional No anorexia 06/05/2018 Constitutional No night sweats 06/05/2018 Constitutional No chills 06/05/2018 Constitutional No diaphoresis 06/05/2018 Constitutional fatigue 06/05/2018 Constitutional No fever 06/05/2018 Constitutional No insomnia 06/05/2018 Constitutional No malaise 06/05/2018 Constitutional No weight loss 06/05/2018 Constitutional No weight gain 06/05/2018 Constitutional No recent illness 05/22/2018 Constitutional No anorexia 05/22/2018 Constitutional No night sweats 05/22/2018 Constitutional No chills 05/22/2018 Constitutional No diaphoresis 05/22/2018 Constitutional fatigue 05/22/2018 Constitutional No fever 05/22/2018 Constitutional No insomnia 05/22/2018 Constitutional No malaise 05/22/2018 Constitutional No weight loss 05/22/2018 Constitutional No weight gain 05/22/2018 Constitutional No recent illness 05/15/2018 Constitutional No chills 05/15/2018 Constitutional No diaphoresis 05/15/2018 Constitutional No fever 05/15/2018 Eyes No blindness 05/15/2018 Ears/Nose/Throat/Neck No nasal allergies 05/15/2018 Ears/Nose/Throat/Neck No nasal discharge 05/15/2018 Cardiovascular No chest pain/pressure 05/15/2018 Cardiovascular No dyspnea 05/15/2018 Respiratory No chest congestion 05/15/2018 Respiratory No cough 05/15/2018 Respiratory dyspnea on exertion 05/15/2018 Respiratory No dyspnea 05/15/2018 Gastrointestinal No abdominal pain 05/15/2018 Genitourinary/Nephrology No dysuria 05/15/2018 Musculoskeletal back pain 05/15/2018 Dermatologic No rash 05/15/2018 Neurologic No alteration of consciousness 05/15/2018 Neurologic No mental status change 05/15/2018 Constitutional No recent illness 01/12/2018 Constitutional No chills 01/12/2018 Constitutional No diaphoresis 01/12/2018 Constitutional No fever 01/12/2018 Eyes No blindness 01/12/2018 Ears/Nose/Throat/Neck No nasal allergies 01/12/2018 Ears/Nose/Throat/Neck No nasal discharge 01/12/2018 Cardiovascular No chest pain/pressure 01/12/2018 Cardiovascular No dyspnea 01/12/2018 Respiratory No chest congestion 01/12/2018 Respiratory No cough 01/12/2018 Respiratory dyspnea on exertion 01/12/2018 Respiratory No dyspnea 01/12/2018 Gastrointestinal No abdominal pain 01/12/2018 Musculoskeletal back pain 01/12/2018 Musculoskeletal myalgias 01/12/2018 Dermatologic No rash 01/12/2018 Neurologic No alteration of consciousness 01/12/2018 Neurologic No mental status change 01/12/2018 Genitourinary/Nephrology No dysuria 01/12/2018 Cardiovascular edema 01/12/2018 Constitutional No recent illness 11/25/2017 Constitutional No chills 11/25/2017 Constitutional No diaphoresis 11/25/2017 Constitutional No fever 11/25/2017 Eyes No blindness 11/25/2017 Ears/Nose/Throat/Neck No nasal allergies 11/25/2017 Ears/Nose/Throat/Neck No nasal discharge 11/25/2017 Cardiovascular No chest pain/pressure 11/25/2017 Cardiovascular No dyspnea 11/25/2017 Respiratory No chest congestion 11/25/2017 Respiratory No cough 11/25/2017 Respiratory No dyspnea on exertion 11/25/2017 Respiratory No dyspnea 11/25/2017 Gastrointestinal No abdominal pain 11/25/2017 Dermatologic No rash 11/25/2017 Neurologic No alteration of consciousness 11/25/2017 Neurologic No mental status change 11/25/2017 Musculoskeletal back pain 11/25/2017 Musculoskeletal myalgias 11/25/2017 Constitutional No recent illness 09/15/2017 Constitutional No chills 09/15/2017 Constitutional No diaphoresis 09/15/2017 Constitutional No fever 09/15/2017 Eyes No eye erythema 09/15/2017 Ears/Nose/Throat/Neck No nasal allergies 09/15/2017 Ears/Nose/Throat/Neck No nasal discharge 09/15/2017 Cardiovascular No chest pain/pressure 09/15/2017 Cardiovascular No dyspnea 09/15/2017 Respiratory No chest congestion 09/15/2017 Respiratory No cough 09/15/2017 Respiratory No dyspnea on exertion 09/15/2017 Respiratory No dyspnea 09/15/2017 Gastrointestinal No abdominal pain 09/15/2017 Dermatologic No rash 09/15/2017 Neurologic No alteration of consciousness 09/15/2017 Neurologic No mental status change 09/15/2017 Constitutional No recent illness 08/17/2017 Constitutional No chills 08/17/2017 Constitutional No diaphoresis 08/17/2017 Constitutional fatigue 08/17/2017 Constitutional No fever 08/17/2017 Eyes No eye pain 08/17/2017 Eyes No vision change 08/17/2017 Cardiovascular No chest pain/pressure 08/17/2017 Respiratory No chest congestion 08/17/2017 Respiratory No cough 08/17/2017 Gastrointestinal No abdominal pain 08/17/2017 Gastrointestinal No constipation 08/17/2017 Gastrointestinal No diarrhea 08/17/2017 Gastrointestinal No nausea 08/17/2017 Gastrointestinal No vomiting 08/17/2017 Musculoskeletal No stiffness 08/17/2017 Musculoskeletal No swelling 08/17/2017 Musculoskeletal arthralgia(s) 08/17/2017 Musculoskeletal back pain 08/17/2017 Dermatologic No rash 08/17/2017 Dermatologic No sores 08/17/2017 Neurologic No alteration of consciousness 08/17/2017 Neurologic No mental status change 08/17/2017 Ears/Nose/Throat/Neck No nasal discharge 08/17/2017 Constitutional No recent illness 07/19/2017 Constitutional No chills 07/19/2017 Constitutional No diaphoresis 07/19/2017 Constitutional fatigue 07/19/2017 Constitutional No fever 07/19/2017 Eyes No eye pain 07/19/2017 Eyes No vision change 07/19/2017 Ears/Nose/Throat/Neck No nasal discharge 07/19/2017 Cardiovascular No chest pain/pressure 07/19/2017 Respiratory No chest congestion 07/19/2017 Respiratory No cough 07/19/2017 Gastrointestinal No abdominal pain 07/19/2017 Gastrointestinal No constipation 07/19/2017 Gastrointestinal No diarrhea 07/19/2017 Gastrointestinal No nausea 07/19/2017 Gastrointestinal No vomiting 07/19/2017 Musculoskeletal No stiffness 07/19/2017 Musculoskeletal No swelling 07/19/2017 Musculoskeletal arthralgia(s) 07/19/2017 Musculoskeletal back pain 07/19/2017 Dermatologic No rash 07/19/2017 Dermatologic No sores 07/19/2017 Neurologic No alteration of consciousness 07/19/2017 Neurologic No mental status change 07/19/2017 Constitutional No recent illness 05/19/2017 Constitutional No anorexia 05/19/2017 Constitutional No night sweats 05/19/2017 Constitutional No chills 05/19/2017 Constitutional No diaphoresis 05/19/2017 Constitutional fatigue 05/19/2017 Constitutional No fever 05/19/2017 Constitutional No insomnia 05/19/2017 Constitutional No malaise 05/19/2017 Constitutional No weight loss 05/19/2017 Constitutional No weight gain 05/19/2017 Constitutional No obesity 05/19/2017 Eyes No eye pain 05/19/2017 Eyes No photophobia 05/19/2017 Eyes No vision change 05/19/2017 Ears/Nose/Throat/Neck dizziness 05/19/2017 Ears/Nose/Throat/Neck No headache 05/19/2017 Cardiovascular No chest pain/pressure 05/19/2017 Cardiovascular No fatigue 05/19/2017 Cardiovascular No palpitations 05/19/2017 Respiratory No chest congestion 05/19/2017 Respiratory No chest tightness 05/19/2017 Respiratory No cigarette smoking 05/19/2017 Respiratory No cough 05/19/2017 Respiratory dyspnea 05/19/2017 Gastrointestinal No abdominal pain 05/19/2017 Gastrointestinal No constipation 05/19/2017 Gastrointestinal No diarrhea 05/19/2017 Gastrointestinal No gas and bloating 05/19/2017 Gastrointestinal No nausea 05/19/2017 Gastrointestinal No vomiting 05/19/2017 Genitourinary/Nephrology No anuria/oliguria 05/19/2017 Genitourinary/Nephrology No dysuria 05/19/2017 Genitourinary/Nephrology No urinary urgency 05/19/2017 Genitourinary/Nephrology No urinary frequency 05/19/2017 Genitourinary/Nephrology No urinary incontinence 05/19/2017 Musculoskeletal No stiffness 05/19/2017 Musculoskeletal No swelling 05/19/2017 Musculoskeletal arthralgia(s) 05/19/2017 Musculoskeletal back pain 05/19/2017 Dermatologic No rash 05/19/2017 Dermatologic No sores 05/19/2017 Neurologic No alteration of consciousness 05/19/2017 Neurologic No mental status change 05/19/2017 Psychiatric No anxiety 05/19/2017 Psychiatric depression 05/19/2017 Endocrine No polydipsia 05/19/2017 Endocrine No polyuria 05/19/2017 Hematologic/Lymphatic No abnormal ecchymoses 05/19/2017 Hematologic/Lymphatic No abnormal bleeding and bruising 05/19/2017 Allergy/Immunology No anaphylactoid reaction 05/19/2017 Constitutional No recent illness 02/15/2017 Constitutional No anorexia 02/15/2017 Constitutional No night sweats 02/15/2017 Constitutional No chills 02/15/2017 Constitutional No diaphoresis 02/15/2017 Constitutional fatigue 02/15/2017 Constitutional No fever 02/15/2017 Constitutional No insomnia 02/15/2017 Constitutional No malaise 02/15/2017 Constitutional No weight loss 02/15/2017 Constitutional No weight gain 02/15/2017 Constitutional No obesity 02/15/2017 Eyes No eye pain 02/15/2017 Eyes No photophobia 02/15/2017 Eyes No vision change 02/15/2017 Ears/Nose/Throat/Neck dizziness 02/15/2017 Ears/Nose/Throat/Neck No headache 02/15/2017 Cardiovascular No chest pain/pressure 02/15/2017 Cardiovascular No fatigue 02/15/2017 Cardiovascular No palpitations 02/15/2017 Respiratory No chest congestion 02/15/2017 Respiratory No chest tightness 02/15/2017 Respiratory No cigarette smoking 02/15/2017 Respiratory No cough 02/15/2017 Respiratory dyspnea 02/15/2017 Gastrointestinal No abdominal pain 02/15/2017 Gastrointestinal No constipation 02/15/2017 Gastrointestinal No diarrhea 02/15/2017 Gastrointestinal No gas and bloating 02/15/2017 Gastrointestinal No nausea 02/15/2017 Gastrointestinal No vomiting 02/15/2017 Genitourinary/Nephrology No anuria/oliguria 02/15/2017 Genitourinary/Nephrology No dysuria 02/15/2017 Genitourinary/Nephrology No urinary urgency 02/15/2017 Genitourinary/Nephrology No urinary frequency 02/15/2017 Genitourinary/Nephrology No urinary incontinence 02/15/2017 Musculoskeletal No stiffness 02/15/2017 Musculoskeletal No swelling 02/15/2017 Musculoskeletal arthralgia(s) 02/15/2017 Musculoskeletal back pain 02/15/2017 Dermatologic No rash 02/15/2017 Dermatologic No sores 02/15/2017 Neurologic No alteration of consciousness 02/15/2017 Neurologic No mental status change 02/15/2017 Psychiatric No anxiety 02/15/2017 Psychiatric depression 02/15/2017 Endocrine No polydipsia 02/15/2017 Endocrine No polyuria 02/15/2017 Hematologic/Lymphatic No abnormal ecchymoses 02/15/2017 Hematologic/Lymphatic No abnormal bleeding and bruising 02/15/2017 Allergy/Immunology No anaphylactoid reaction 02/15/2017 Constitutional recent illness 11/16/2016 Constitutional No anorexia 11/16/2016 Constitutional No night sweats 11/16/2016 Constitutional No chills 11/16/2016 Constitutional No diaphoresis 11/16/2016 Constitutional fatigue 11/16/2016 Constitutional No fever 11/16/2016 Constitutional No insomnia 11/16/2016 Constitutional No malaise 11/16/2016 Constitutional No weight loss 11/16/2016 Constitutional No weight gain 11/16/2016 Constitutional No obesity 11/16/2016 Eyes No eye pain 11/16/2016 Eyes No photophobia 11/16/2016 Eyes No vision change 11/16/2016 Ears/Nose/Throat/Neck dizziness 11/16/2016 Ears/Nose/Throat/Neck No headache 11/16/2016 Cardiovascular No chest pain/pressure 11/16/2016 Cardiovascular No fatigue 11/16/2016 Cardiovascular No palpitations 11/16/2016 Respiratory chest tightness 11/16/2016 Respiratory chest congestion 11/16/2016 Respiratory cough 11/16/2016 Respiratory No cigarette smoking 11/16/2016 Respiratory dyspnea 11/16/2016 Gastrointestinal No abdominal pain 11/16/2016 Gastrointestinal No gas and bloating 11/16/2016 Gastrointestinal No constipation 11/16/2016 Gastrointestinal No diarrhea 11/16/2016 Gastrointestinal No nausea 11/16/2016 Gastrointestinal No vomiting 11/16/2016 Genitourinary/Nephrology No anuria/oliguria 11/16/2016 Genitourinary/Nephrology No dysuria 11/16/2016 Genitourinary/Nephrology No urinary urgency 11/16/2016 Genitourinary/Nephrology No urinary frequency 11/16/2016 Genitourinary/Nephrology No urinary incontinence 11/16/2016 Musculoskeletal No stiffness 11/16/2016 Musculoskeletal No swelling 11/16/2016 Musculoskeletal arthralgia(s) 11/16/2016 Musculoskeletal back pain 11/16/2016 Dermatologic No rash 11/16/2016 Dermatologic No sores 11/16/2016 Neurologic No alteration of consciousness 11/16/2016 Neurologic No mental status change 11/16/2016 Psychiatric No anxiety 11/16/2016 Psychiatric depression 11/16/2016 Endocrine No polydipsia 11/16/2016 Endocrine No polyuria 11/16/2016 Hematologic/Lymphatic No abnormal ecchymoses 11/16/2016 Hematologic/Lymphatic No abnormal bleeding and bruising 11/16/2016 Allergy/Immunology No anaphylactoid reaction 11/16/2016 Constitutional No recent illness 08/19/2016 Constitutional No anorexia 08/19/2016 Constitutional No night sweats 08/19/2016 Constitutional No chills 08/19/2016 Constitutional No diaphoresis 08/19/2016 Constitutional No fatigue 08/19/2016 Constitutional No fever 08/19/2016 Constitutional No insomnia 08/19/2016 Constitutional No malaise 08/19/2016 Constitutional No weight loss 08/19/2016 Constitutional No weight gain 08/19/2016 Eyes No eye discharge 08/19/2016 Eyes No eye erythema 08/19/2016 Ears/Nose/Throat/Neck nasal allergies 08/19/2016 Cardiovascular No chest pain/pressure 08/19/2016 Respiratory No cough 08/19/2016 Gastrointestinal No abdominal pain 08/19/2016 Gastrointestinal No constipation 08/19/2016 Gastrointestinal No diarrhea 08/19/2016 Genitourinary/Nephrology No dysuria 08/19/2016 Musculoskeletal back pain 08/19/2016 Musculoskeletal No joint complaint 08/19/2016 Dermatologic No rash 08/19/2016 Ears/Nose/Throat/Neck No dizziness 08/19/2016 Ears/Nose/Throat/Neck No otalgia 08/19/2016 Neurologic No alteration of consciousness 08/19/2016 Constitutional No recent illness 07/15/2016 Constitutional No anorexia 07/15/2016 Constitutional No night sweats 07/15/2016 Constitutional No chills 07/15/2016 Constitutional No diaphoresis 07/15/2016 Constitutional No fatigue 07/15/2016 Constitutional No malaise 07/15/2016 Constitutional No insomnia 07/15/2016 Constitutional No fever 07/15/2016 Constitutional No weight loss 07/15/2016 Constitutional No weight gain 07/15/2016 Eyes No eye discharge 07/15/2016 Eyes No eye erythema 07/15/2016 Respiratory cough 07/15/2016 Cardiovascular No chest pain/pressure 07/15/2016 Ears/Nose/Throat/Neck nasal allergies 07/15/2016 Ears/Nose/Throat/Neck nasal discharge 07/15/2016 Ears/Nose/Throat/Neck sinus congestion 07/15/2016 Gastrointestinal No abdominal pain 07/15/2016 Gastrointestinal No constipation 07/15/2016 Gastrointestinal No diarrhea 07/15/2016 Genitourinary/Nephrology No dysuria 07/15/2016 Musculoskeletal No joint complaint 07/15/2016 Dermatologic No rash 07/15/2016 Musculoskeletal back pain 07/15/2016 Constitutional No recent illness 06/03/2016 Constitutional No anorexia 06/03/2016 Constitutional No night sweats 06/03/2016 Constitutional No chills 06/03/2016 Constitutional No diaphoresis 06/03/2016 Constitutional fatigue 06/03/2016 Constitutional No fever 06/03/2016 Constitutional No insomnia 06/03/2016 Constitutional No malaise 06/03/2016 Eyes No eye discharge 06/03/2016 Eyes No eye erythema 06/03/2016 Ears/Nose/Throat/Neck No dizziness 06/03/2016 Ears/Nose/Throat/Neck No headache 06/03/2016 Cardiovascular No chest pain/pressure 06/03/2016 Cardiovascular No dyspnea 06/03/2016 Gastrointestinal No abdominal pain 06/03/2016 Gastrointestinal No constipation 06/03/2016 Gastrointestinal No diarrhea 06/03/2016 Genitourinary/Nephrology No dysuria 06/03/2016 Musculoskeletal joint complaint 06/03/2016 Dermatologic No rash 06/03/2016 Neurologic No alteration of consciousness 06/03/2016 Psychiatric anxiety 06/03/2016 Psychiatric No depression 06/03/2016 Constitutional No recent illness 04/22/2016 Constitutional No chills 04/22/2016 Constitutional No anorexia 04/22/2016 Constitutional No night sweats 04/22/2016 Constitutional No diaphoresis 04/22/2016 Constitutional No insomnia 04/22/2016 Constitutional No fatigue 04/22/2016 Constitutional No fever 04/22/2016 Constitutional No weight loss 04/22/2016 Constitutional No malaise 04/22/2016 Constitutional No weight gain 04/22/2016 Eyes No eye discharge 04/22/2016 Eyes No eye erythema 04/22/2016 Respiratory cough 04/22/2016 Ears/Nose/Throat/Neck No dizziness 04/22/2016 Ears/Nose/Throat/Neck No headache 04/22/2016 Cardiovascular No chest pain/pressure 04/22/2016 Cardiovascular No dyspnea 04/22/2016 Gastrointestinal No abdominal pain 04/22/2016 Gastrointestinal No constipation 04/22/2016 Gastrointestinal No diarrhea 04/22/2016 Genitourinary/Nephrology No dysuria 04/22/2016 Musculoskeletal joint complaint 04/22/2016 Dermatologic No rash 04/22/2016 Neurologic No alteration of consciousness 04/22/2016 Psychiatric anxiety 04/22/2016 Psychiatric No depression 04/22/2016 Endocrine No dry or coarse skin 04/22/2016 Hematologic/Lymphatic No abnormal bleeding and bruising 04/22/2016 Constitutional No recent illness 01/22/2016 Constitutional No diaphoresis 01/22/2016 Constitutional No fever 01/22/2016 Constitutional No malaise 01/22/2016 Eyes No vision change 01/22/2016 Ears/Nose/Throat/Neck No nasal allergies 01/22/2016 Ears/Nose/Throat/Neck No nasal discharge 01/22/2016 Cardiovascular No chest pain/pressure 01/22/2016 Cardiovascular No dyspnea 01/22/2016 Respiratory No chest congestion 01/22/2016 Respiratory No cough 01/22/2016 Gastrointestinal No abdominal pain 01/22/2016 Gastrointestinal No constipation 01/22/2016 Genitourinary/Nephrology No dysuria 01/22/2016 Musculoskeletal No joint complaint 01/22/2016 Dermatologic No rash 01/22/2016 Dermatologic No sores 01/22/2016 Psychiatric No anxiety 01/22/2016 Psychiatric No depression 01/22/2016 Constitutional No chills 01/22/2016 Eyes No eye erythema 01/22/2016 Respiratory No dyspnea 01/22/2016 Gastrointestinal No diarrhea 01/22/2016 Neurologic No alteration of consciousness 01/22/2016 Neurologic No mental status change 01/22/2016 Constitutional No recent illness 10/23/2015 Constitutional No anorexia 10/23/2015 Constitutional No night sweats 10/23/2015 Constitutional No chills 10/23/2015 Constitutional No diaphoresis 10/23/2015 Constitutional No fatigue 10/23/2015 Constitutional No fever 10/23/2015 Constitutional No insomnia 10/23/2015 Constitutional No malaise 10/23/2015 Constitutional No weight loss 10/23/2015 Constitutional No weight gain 10/23/2015 Constitutional No obesity 10/23/2015 Cardiovascular No chest pain/pressure 10/23/2015 Cardiovascular No dyspnea 10/23/2015 Respiratory dyspnea on exertion 10/23/2015 Respiratory No dyspnea 10/23/2015 Respiratory No cough 10/23/2015 Respiratory No cigarette smoking 10/23/2015 Respiratory No chest tightness 10/23/2015 Respiratory No chest congestion 10/23/2015 Gastrointestinal No constipation 10/23/2015 Gastrointestinal diarrhea 10/23/2015 Gastrointestinal No abdominal pain 10/23/2015 Genitourinary/Nephrology No dysuria 10/23/2015 Dermatologic No rash 10/23/2015 Dermatologic No sores 10/23/2015 Psychiatric No anxiety 10/23/2015 Psychiatric No depression 10/23/2015 Musculoskeletal No myalgias 10/23/2015 Musculoskeletal No muscle weakness 10/23/2015 Musculoskeletal No joint complaint 10/23/2015 Ears/Nose/Throat/Neck No nasal discharge 10/23/2015 Ears/Nose/Throat/Neck No nasal allergies 10/23/2015 Ears/Nose/Throat/Neck No headache 10/23/2015 Ears/Nose/Throat/Neck No otalgia 10/23/2015 Ears/Nose/Throat/Neck No otitis media 10/23/2015 Ears/Nose/Throat/Neck No sore throat 10/23/2015 Eyes No vision change 10/23/2015 Constitutional No recent illness 09/12/2015 Constitutional No chills 09/12/2015 Constitutional fatigue 09/12/2015 Constitutional No fever 09/12/2015 Constitutional No insomnia 09/12/2015 Constitutional No malaise 09/12/2015 Eyes No blindness 09/12/2015 Eyes No vision change 09/12/2015 Ears/Nose/Throat/Neck No dental pain 09/12/2015 Ears/Nose/Throat/Neck No dizziness 09/12/2015 Ears/Nose/Throat/Neck No dysphagia 09/12/2015 Ears/Nose/Throat/Neck No headache 09/12/2015 Ears/Nose/Throat/Neck No hearing loss 09/12/2015 Ears/Nose/Throat/Neck No nasal allergies 09/12/2015 Ears/Nose/Throat/Neck No postnasal drip 09/12/2015 Ears/Nose/Throat/Neck No sinus congestion 09/12/2015 Ears/Nose/Throat/Neck No sore throat 09/12/2015 Cardiovascular No chest pain/pressure 09/12/2015 Cardiovascular No dyspnea 09/12/2015 Cardiovascular No edema 09/12/2015 Cardiovascular No exercise intolerance 09/12/2015 Cardiovascular No fatigue 09/12/2015 Cardiovascular No near-syncope/dizziness 09/12/2015 Respiratory No chest tightness 09/12/2015 Respiratory No cough 09/12/2015 Respiratory No dyspnea 09/12/2015 Respiratory No pedal edema 09/12/2015 Gastrointestinal No abdominal pain 09/12/2015 Gastrointestinal No constipation 09/12/2015 Gastrointestinal No diarrhea 09/12/2015 Gastrointestinal No gastroesophageal reflux 09/12/2015 Gastrointestinal No nausea 09/12/2015 Gastrointestinal No vomiting 09/12/2015 Genitourinary/Nephrology No dysuria 09/12/2015 Genitourinary/Nephrology No nocturia 09/12/2015 Genitourinary/Nephrology No urinary incontinence 09/12/2015 Musculoskeletal No stiffness 09/12/2015 Musculoskeletal No swelling 09/12/2015 Musculoskeletal No muscle weakness 09/12/2015 Musculoskeletal No myalgias 09/12/2015 Dermatologic No rash 09/12/2015 Dermatologic No sores 09/12/2015 Dermatologic No scar 09/12/2015 Neurologic No headache 09/12/2015 Neurologic No neck pain 09/12/2015 Neurologic No syncope 09/12/2015 Psychiatric No anxiety 09/12/2015 Psychiatric No depression 09/12/2015 Constitutional No recent illness 08/05/2015 Constitutional No chills 08/05/2015 Constitutional fatigue 08/05/2015 Constitutional No fever 08/05/2015 Constitutional No insomnia 08/05/2015 Constitutional No malaise 08/05/2015 Eyes No blindness 08/05/2015 Eyes No vision change 08/05/2015 Ears/Nose/Throat/Neck No dental pain 08/05/2015 Ears/Nose/Throat/Neck No dizziness 08/05/2015 Ears/Nose/Throat/Neck No dysphagia 08/05/2015 Ears/Nose/Throat/Neck No headache 08/05/2015 Ears/Nose/Throat/Neck No hearing loss 08/05/2015 Ears/Nose/Throat/Neck No nasal allergies 08/05/2015 Ears/Nose/Throat/Neck No postnasal drip 08/05/2015 Ears/Nose/Throat/Neck No sinus congestion 08/05/2015 Ears/Nose/Throat/Neck No sore throat 08/05/2015 Cardiovascular No chest pain/pressure 08/05/2015 Cardiovascular No dyspnea 08/05/2015 Cardiovascular No edema 08/05/2015 Cardiovascular No exercise intolerance 08/05/2015 Cardiovascular No fatigue 08/05/2015 Cardiovascular No near-syncope/dizziness 08/05/2015 Respiratory No chest tightness 08/05/2015 Respiratory No cough 08/05/2015 Respiratory No dyspnea 08/05/2015 Respiratory No pedal edema 08/05/2015 Gastrointestinal No abdominal pain 08/05/2015 Gastrointestinal No constipation 08/05/2015 Gastrointestinal No diarrhea 08/05/2015 Gastrointestinal No gastroesophageal reflux 08/05/2015 Gastrointestinal No nausea 08/05/2015 Gastrointestinal No vomiting 08/05/2015 Genitourinary/Nephrology No dysuria 08/05/2015 Genitourinary/Nephrology No nocturia 08/05/2015 Genitourinary/Nephrology No urinary incontinence 08/05/2015 Musculoskeletal No stiffness 08/05/2015 Musculoskeletal No swelling 08/05/2015 Musculoskeletal No muscle weakness 08/05/2015 Musculoskeletal No myalgias 08/05/2015 Dermatologic No rash 08/05/2015 Dermatologic No sores 08/05/2015 Dermatologic No scar 08/05/2015 Neurologic No headache 08/05/2015 Neurologic No neck pain 08/05/2015 Neurologic No syncope 08/05/2015 Psychiatric No anxiety 08/05/2015 Psychiatric No depression 08/05/2015 Constitutional No recent illness 04/03/2015 Constitutional No chills 04/03/2015 Constitutional fatigue 04/03/2015 Constitutional No fever 04/03/2015 Constitutional No insomnia 04/03/2015 Constitutional No malaise 04/03/2015 Eyes No blindness 04/03/2015 Eyes No vision change 04/03/2015 Ears/Nose/Throat/Neck No dental pain 04/03/2015 Ears/Nose/Throat/Neck No dizziness 04/03/2015 Ears/Nose/Throat/Neck No dysphagia 04/03/2015 Ears/Nose/Throat/Neck No headache 04/03/2015 Ears/Nose/Throat/Neck No hearing loss 04/03/2015 Ears/Nose/Throat/Neck No nasal allergies 04/03/2015 Ears/Nose/Throat/Neck No postnasal drip 04/03/2015 Ears/Nose/Throat/Neck No sinus congestion 04/03/2015 Ears/Nose/Throat/Neck No sore throat 04/03/2015 Cardiovascular No chest pain/pressure 04/03/2015 Cardiovascular No dyspnea 04/03/2015 Cardiovascular No edema 04/03/2015 Cardiovascular No exercise intolerance 04/03/2015 Cardiovascular No fatigue 04/03/2015 Cardiovascular No near-syncope/dizziness 04/03/2015 Respiratory No chest tightness 04/03/2015 Respiratory No cough 04/03/2015 Respiratory No dyspnea 04/03/2015 Respiratory No pedal edema 04/03/2015 Gastrointestinal No abdominal pain 04/03/2015 Gastrointestinal No constipation 04/03/2015 Gastrointestinal No diarrhea 04/03/2015 Gastrointestinal No gastroesophageal reflux 04/03/2015 Gastrointestinal No nausea 04/03/2015 Gastrointestinal No vomiting 04/03/2015 Genitourinary/Nephrology No dysuria 04/03/2015 Genitourinary/Nephrology No nocturia 04/03/2015 Genitourinary/Nephrology No urinary incontinence 04/03/2015 Musculoskeletal No stiffness 04/03/2015 Musculoskeletal No swelling 04/03/2015 Musculoskeletal No muscle weakness 04/03/2015 Musculoskeletal No myalgias 04/03/2015 Dermatologic No rash 04/03/2015 Dermatologic No sores 04/03/2015 Dermatologic No scar 04/03/2015 Neurologic No headache 04/03/2015 Neurologic No neck pain 04/03/2015 Neurologic No syncope 04/03/2015 Psychiatric No anxiety 04/03/2015 Psychiatric No depression 04/03/2015 Constitutional No recent illness 01/30/2015 Constitutional No chills 01/30/2015 Constitutional fatigue 01/30/2015 Constitutional No fever 01/30/2015 Constitutional No insomnia 01/30/2015 Constitutional No malaise 01/30/2015 Eyes No blindness 01/30/2015 Eyes No vision change 01/30/2015 Ears/Nose/Throat/Neck No dental pain 01/30/2015 Ears/Nose/Throat/Neck No dizziness 01/30/2015 Ears/Nose/Throat/Neck No dysphagia 01/30/2015 Ears/Nose/Throat/Neck No headache 01/30/2015 Ears/Nose/Throat/Neck No hearing loss 01/30/2015 Ears/Nose/Throat/Neck No nasal allergies 01/30/2015 Ears/Nose/Throat/Neck No sore throat 01/30/2015 Ears/Nose/Throat/Neck No postnasal drip 01/30/2015 Ears/Nose/Throat/Neck No sinus congestion 01/30/2015 Cardiovascular No chest pain/pressure 01/30/2015 Cardiovascular No dyspnea 01/30/2015 Cardiovascular No edema 01/30/2015 Cardiovascular No exercise intolerance 01/30/2015 Cardiovascular No fatigue 01/30/2015 Cardiovascular No near-syncope/dizziness 01/30/2015 Respiratory No chest tightness 01/30/2015 Respiratory No cough 01/30/2015 Respiratory No dyspnea 01/30/2015 Respiratory No pedal edema 01/30/2015 Gastrointestinal No abdominal pain 01/30/2015 Gastrointestinal No constipation 01/30/2015 Gastrointestinal No diarrhea 01/30/2015 Gastrointestinal No gastroesophageal reflux 01/30/2015 Gastrointestinal No nausea 01/30/2015 Gastrointestinal No vomiting 01/30/2015 Genitourinary/Nephrology No dysuria 01/30/2015 Genitourinary/Nephrology No nocturia 01/30/2015 Genitourinary/Nephrology No urinary incontinence 01/30/2015 Musculoskeletal No stiffness 01/30/2015 Musculoskeletal No swelling 01/30/2015 Musculoskeletal No muscle weakness 01/30/2015 Musculoskeletal No myalgias 01/30/2015 Dermatologic No rash 01/30/2015 Dermatologic No sores 01/30/2015 Dermatologic No scar 01/30/2015 Neurologic dizziness 01/30/2015 Neurologic No headache 01/30/2015 Neurologic No neck pain 01/30/2015 Neurologic No syncope 01/30/2015 Psychiatric No anxiety 01/30/2015 Psychiatric No depression 01/30/2015 Constitutional No recent illness 01/02/2015 Constitutional No chills 01/02/2015 Constitutional fatigue 01/02/2015 Constitutional No fever 01/02/2015 Constitutional No insomnia 01/02/2015 Constitutional No malaise 01/02/2015 Eyes No blindness 01/02/2015 Eyes No vision change 01/02/2015 Ears/Nose/Throat/Neck No dental pain 01/02/2015 Ears/Nose/Throat/Neck No dizziness 01/02/2015 Ears/Nose/Throat/Neck No dysphagia 01/02/2015 Ears/Nose/Throat/Neck No headache 01/02/2015 Ears/Nose/Throat/Neck No hearing loss 01/02/2015 Ears/Nose/Throat/Neck No nasal allergies 01/02/2015 Ears/Nose/Throat/Neck No sore throat 01/02/2015 Ears/Nose/Throat/Neck No postnasal drip 01/02/2015 Ears/Nose/Throat/Neck No sinus congestion 01/02/2015 Cardiovascular No chest pain/pressure 01/02/2015 Cardiovascular No dyspnea 01/02/2015 Cardiovascular No edema 01/02/2015 Cardiovascular No exercise intolerance 01/02/2015 Cardiovascular No fatigue 01/02/2015 Cardiovascular No near-syncope/dizziness 01/02/2015 Respiratory No chest tightness 01/02/2015 Respiratory No cough 01/02/2015 Respiratory No dyspnea 01/02/2015 Respiratory No pedal edema 01/02/2015 Gastrointestinal No abdominal pain 01/02/2015 Gastrointestinal No constipation 01/02/2015 Gastrointestinal No diarrhea 01/02/2015 Gastrointestinal No gastroesophageal reflux 01/02/2015 Gastrointestinal No nausea 01/02/2015 Gastrointestinal No vomiting 01/02/2015 Genitourinary/Nephrology No dysuria 01/02/2015 Genitourinary/Nephrology No nocturia 01/02/2015 Genitourinary/Nephrology No urinary incontinence 01/02/2015 Musculoskeletal No stiffness 01/02/2015 Musculoskeletal No swelling 01/02/2015 Musculoskeletal No muscle weakness 01/02/2015 Musculoskeletal No myalgias 01/02/2015 Dermatologic No rash [...] 1994 Constitutional general appearance Overall: well developed 12/12/2018 None Full Exam - General 1994 Constitutional general appearance Overall: in no acute distress 12/12/2018 None Full Exam - General 1994 Constitutional general appearance Overall: well nourished 12/12/2018 None Full Exam - General 1994 Eyes conjunctiva/eyelids Overall: conjunctiva clear 12/12/2018 None Full Exam - General 1994 Eyes conjunctiva/eyelids Overall: cornea clear 12/12/2018 None Full Exam - General 1994 Eyes conjunctiva/eyelids Overall: eyelids normal 12/12/2018 None Full Exam - General 1994 Ears/Nose/Throat lips/teeth/gingiva Overall: benign lips 12/12/2018 None Full Exam - General 1994 Ears/Nose/Throat oral cavity/pharynx/larynx Overall: oral mucosa clear 12/12/2018 None Full Exam - General 1994 Respiratory auscultation Overall: breath sounds clear bilaterally 12/12/2018 None Full Exam - General 1994 Respiratory respiratory effort/rhythm Overall: no retractions 12/12/2018 None Full Exam - General 1994 Respiratory respiratory effort/rhythm Overall: normal rate 12/12/2018 None Full Exam - General 1994 Cardiovascular extremities Edema present: pitting 12/12/2018 None Full Exam - General 1994 Cardiovascular extremities Edema present: severity 1+ - 4+: trace 12/12/2018 None Full Exam - General 1994 Cardiovascular extremities Other findings: varicose veins 12/12/2018 None Full Exam - General 1994 Cardiovascular auscultation of heart Overall: regular rate 12/12/2018 None Full Exam - General 1994 Cardiovascular auscultation of heart Overall: normal heart sounds 12/12/2018 None Full Exam - General 1994 Abdomen abdominal exam Overall: no tenderness 12/12/2018 None Full Exam - General 1994 Abdomen abdominal exam Overall: normal bowel sounds 12/12/2018 None Full Exam - General 1994 Musculoskeletal gait and station Overall: normal gait 12/12/2018 None Full Exam - General 1994 Musculoskeletal gait and station Overall: normal station 12/12/2018 None Full Exam - General 1994 Musculoskeletal head and neck Overall: head atraumatic 12/12/2018 None Full Exam - General 1994 Neurologic cranial nerves Overall: crainial nerves 2 - 12 grossly intact 12/12/2018 None Full Exam - General 1994 Psychiatric orientation/consciousness Overall: oriented to person, place and time 12/12/2018 None Full Exam - General 1994 Psychiatric mood and affect Overall: normal mood and affect 12/12/2018 None Full Exam - General 1994 Psychiatric appearance Overall: well-groomed, good eye contact 12/12/2018 None Full Exam - General 1994 Integument inspection of skin Overall: few scattered moles, no gross abnormalities 12/12/2018 None Full Exam - Dermatology Constitutional general appearance Overall: well nourished 11/23/2018 None Full Exam - Dermatology Constitutional general appearance Overall: well developed 11/23/2018 None Full Exam - Dermatology Constitutional general appearance Overall: in no acute distress 11/23/2018 None Full Exam - Dermatology Eyes conjunctiva/eyelids Overall: clear conjunctiva bilaterally 11/23/2018 None Full Exam - Dermatology Eyes conjunctiva/eyelids Overall: clear corneas 11/23/2018 None Full Exam - Dermatology Eyes conjunctiva/eyelids Overall: normal eyelids 11/23/2018 None Full Exam - Dermatology Ears/Nose/Throat lips/teeth/gingiva Overall: benign lips 11/23/2018 None Full Exam - Dermatology Ears/Nose/Throat oropharynx Overall: clear oral mucosa 11/23/2018 None Full Exam - Dermatology Respiratory respiratory effort/rhythm Overall: no retractions 11/23/2018 None Full Exam - Dermatology Respiratory respiratory effort/rhythm Overall: normal rate 11/23/2018 None Full Exam - Dermatology Musculoskeletal head and neck Overall: head atraumatic 11/23/2018 None Full Exam - Dermatology Psychiatric orientation Overall: oriented to person, place and time 11/23/2018 None Full Exam - Dermatology Psychiatric mood and affect Overall: normal mood and affect 11/23/2018 None Full Exam - Dermatology Integument insp & palp - left lower extremity Lesion: patch 11/23/2018 None Full Exam - Dermatology Integument insp & palp - left lower extremity Lesion: bulla 11/23/2018 2nd degree burn to left anterior thigh Full Exam - Dermatology Integument insp & palp - left lower extremity Color: erythematous 11/23/2018 mild Full Exam - General 1994 Constitutional general appearance Overall: well developed 08/15/2018 None Full Exam - General 1994 Constitutional general appearance Overall: in no acute distress 08/15/2018 None Full Exam - General 1994 Constitutional general appearance Overall: well nourished 08/15/2018 None Full Exam - General 1995 Eyes conjunctiva/eyelids Overall: conjunctiva clear 08/15/2018 None Full Exam - General 1994 Eyes conjunctiva/eyelids Overall: cornea clear 08/15/2018 None Full Exam - General 1994 Eyes conjunctiva/eyelids Overall: eyelids normal 08/15/2018 None Full Exam - General 1995 Ears/Nose/Throat lips/teeth/gingiva Overall: benign lips 08/15/2018 None Full Exam - General 1994 Ears/Nose/Throat oral cavity/pharynx/larynx Overall: oral mucosa clear 08/15/2018 None Full Exam - General 1994 Respiratory auscultation Overall: breath sounds clear bilaterally 08/15/2018 None Full Exam - General 1994 Respiratory respiratory effort/rhythm Overall: no retractions 08/15/2018 None Full Exam - General 1994 Respiratory respiratory effort/rhythm Overall: normal rate 08/15/2018 None Full Exam - General 1994 Cardiovascular extremities Edema present: pitting 08/15/2018 None Full Exam - General 1994 Cardiovascular extremities Edema present: severity 1+ - 4+: trace 08/15/2018 None Full Exam - General 1994 Cardiovascular extremities Other findings: varicose veins 08/15/2018 None Full Exam - General 1994 Cardiovascular auscultation of heart Overall: regular rate 08/15/2018 None Full Exam - General 1994 Cardiovascular auscultation of heart Overall: normal heart sounds 08/15/2018 None Full Exam - General 1994 Abdomen abdominal exam Overall: no tenderness 08/15/2018 None Full Exam - General 1994 Abdomen abdominal exam Overall: normal bowel sounds 08/15/2018 None Full Exam - General 1994 Musculoskeletal gait and station Overall: normal gait 08/15/2018 None Full Exam - General 1994 Musculoskeletal gait and station Overall: normal station 08/15/2018 None Full Exam - General 1994 Musculoskeletal head and neck Overall: head atraumatic 08/15/2018 None Full Exam - General 1994 Neurologic cranial nerves Overall: crainial nerves 2 - 12 grossly intact 08/15/2018 None Full Exam - General 1994 Psychiatric orientation/consciousness Overall: oriented to person, place and time 08/15/2018 None Full Exam - General 1994 Psychiatric mood and affect Overall: normal mood and affect 08/15/2018 None Full Exam - General 1994 Psychiatric appearance Overall: well-groomed, good eye contact 08/15/2018 None Full Exam - General 1994 Constitutional [...] None Full Exam - General 1994 Eyes conjunctiva/eyelids Overall: conjunctiva clear 05/15/2018 None Full Exam - General 1994 Eyes conjunctiva/eyelids Overall: cornea clear 05/15/2018 None Full Exam - General 1994 Eyes conjunctiva/eyelids Overall: eyelids normal 05/15/2018 None Full Exam [...] Cardiovascular extremities Edema present: severity 1+ - 4+: trace 05/15/2018 None Full Exam - General [...] None Full Exam - General 1994 Eyes conjunctiva/eyelids Overall: conjunctiva clear 01/12/2018 None Full Exam - General 1994 Eyes conjunctiva/eyelids Overall: cornea clear 01/12/2018 None Full Exam - General 1994 Eyes conjunctiva/eyelids Overall: eyelids normal 01/12/2018 None Full Exam [...] Cardiovascular extremities Edema present: severity 1+ - 4+: 1 01/12/2018 None Full Exam - General 1994 Constitutional general appearance Overall: well developed 11/25/2017 None Full Exam - General 1994 Constitutional general appearance Overall: in no acute distress 11/25/2017 None Full Exam - General 1994 Constitutional general appearance Overall: well nourished 11/25/2017 None Full Exam - General 1994 Eyes conjunctiva/eyelids Overall: conjunctiva clear 11/25/2017 None Full Exam - General 1995 Eyes conjunctiva/eyelids Overall: cornea clear 11/25/2017 None Full Exam - General 1994 Eyes conjunctiva/eyelids Overall: eyelids normal 11/25/2017 None Full Exam - General 1994 Ears/Nose/Throat lips/teeth/gingiva Overall: benign lips 11/25/2017 None Full Exam - General 1995 Ears/Nose/Throat [...] None Full Exam - General 1994 Eyes conjunctiva/eyelids Overall: conjunctiva clear 09/15/2017 None Full Exam - General 1994 Eyes conjunctiva/eyelids Overall: cornea clear 09/15/2017 None Full Exam - General 1994 Eyes conjunctiva/eyelids Overall: eyelids normal 09/15/2017 None Full Exam - General 1995 Ears/Nose/Throat oral cavity/pharynx/larynx Overall: oral mucosa clear 09/15/2017 None Full Exam - General 1995 Ears/Nose/Throat lips/teeth/gingiva Overall: benign lips 09/15/2017 None [...] Cardiovascular extremities Edema present: severity 1+ - 4+: 2 09/15/2017 None Full Exam - General [...] None Full Exam - General 1994 Eyes conjunctiva/eyelids Overall: conjunctiva clear 08/17/2017 None Full Exam - General 1994 Eyes conjunctiva/eyelids Overall: cornea clear 08/17/2017 None Full Exam - General 1994 Eyes conjunctiva/eyelids Overall: eyelids normal 08/17/2017 None Full Exam [...] None Full Exam - General 1994 Eyes conjunctiva/eyelids Overall: conjunctiva clear 07/19/2017 None Full Exam - General 1994 Eyes conjunctiva/eyelids Overall: cornea clear 07/19/2017 None Full Exam - General 1994 Eyes conjunctiva/eyelids Overall: eyelids normal 07/19/2017 None Full Exam [...] None Full Exam - General 1994 Eyes conjunctiva/eyelids Overall: conjunctiva clear 05/19/2017 None Full Exam - General 1994 Eyes conjunctiva/eyelids Overall: cornea clear 05/19/2017 None Full Exam - General 1994 Eyes conjunctiva/eyelids Overall: eyelids normal 05/19/2017 None Full Exam [...] General 1994 Neck thyroid Overall: normal size 05/19/2017 None Full Exam - General 1994 Neck thyroid Overall: normal consistency 05/19/2017 None Full Exam - General 1994 Neck thyroid Overall: nontender 05/19/2017 None Full Exam - General 1994 [...] None Full Exam - General 1994 Eyes conjunctiva/eyelids Overall: conjunctiva clear 02/15/2017 None Full Exam - General 1994 Eyes conjunctiva/eyelids Overall: cornea clear 02/15/2017 None Full Exam - General 1994 Eyes conjunctiva/eyelids Overall: eyelids normal 02/15/2017 None Full Exam [...] General 1994 Neck thyroid Overall: normal size 02/15/2017 None Full Exam - General 1994 Neck thyroid Overall: normal consistency 02/15/2017 None Full Exam - General 1994 Neck thyroid Overall: nontender 02/15/2017 None Full Exam - General 1994 [...] None Full Exam - General 1994 Eyes conjunctiva/eyelids Overall: conjunctiva clear 11/16/2016 None Full Exam - General 1994 Eyes conjunctiva/eyelids Overall: cornea clear 11/16/2016 None Full Exam - General 1994 Eyes conjunctiva/eyelids Overall: eyelids normal 11/16/2016 None Full Exam [...] General 1994 Neck thyroid Overall: normal size 11/16/2016 None Full Exam - General 1994 Neck thyroid Overall: nontender 11/16/2016 None Full Exam - General 1994 [...] None Full Exam - General 1994 Eyes conjunctiva/eyelids Overall: conjunctiva clear 08/19/2016 None Full Exam - General 1994 Eyes conjunctiva/eyelids Overall: cornea clear 08/19/2016 None Full Exam - General 1994 Eyes conjunctiva/eyelids Overall: eyelids normal 08/19/2016 None Full Exam [...] None Full Exam - General 1994 Eyes conjunctiva/eyelids Overall: conjunctiva clear 07/15/2016 None Full Exam - General 1994 Eyes conjunctiva/eyelids Overall: cornea clear 07/15/2016 None Full Exam - General 1994 Eyes conjunctiva/eyelids Overall: eyelids normal 07/15/2016 None Full Exam [...] None Full Exam - General 1994 Eyes conjunctiva/eyelids Overall: conjunctiva clear 06/03/2016 None Full Exam - General 1994 Eyes conjunctiva/eyelids Overall: cornea clear 06/03/2016 None Full Exam - General 1994 Eyes conjunctiva/eyelids Overall: eyelids normal 06/03/2016 None Full Exam [...] light touch intact bilateral feet and ankles 06/03/2016 None Full Exam - General [...] None Full Exam - General 1994 Eyes conjunctiva/eyelids Overall: conjunctiva clear 04/22/2016 None Full Exam - General 1994 Eyes conjunctiva/eyelids Overall: cornea clear 04/22/2016 None Full Exam - General 1994 Eyes conjunctiva/eyelids Overall: eyelids normal 04/22/2016 None Full Exam [...] None Full Exam - General 1994 Eyes conjunctiva/eyelids Overall: conjunctiva clear 01/22/2016 None Full Exam - General 1994 Eyes conjunctiva/eyelids Overall: cornea clear 01/22/2016 None Full Exam - General 1994 Eyes conjunctiva/eyelids Overall: eyelids normal 01/22/2016 None Full Exam [...] None Full Exam - General 1994 Eyes conjunctiva/eyelids Overall: conjunctiva clear 10/23/2015 None Full Exam - General 1994 Eyes conjunctiva/eyelids Overall: cornea clear 10/23/2015 None Full Exam - General 1994 Eyes conjunctiva/eyelids Overall: eyelids normal 10/23/2015 None Full Exam [...] None Full Exam - General 1994 Eyes conjunctiva/eyelids Overall: conjunctiva clear 09/12/2015 None Full Exam - General 1994 Eyes conjunctiva/eyelids Overall: cornea clear 09/12/2015 None Full Exam - General 1994 Eyes conjunctiva/eyelids Overall: eyelids normal 09/12/2015 None Full Exam [...] None Full Exam - General 1994 Eyes conjunctiva/eyelids Overall: conjunctiva clear 08/05/2015 None Full Exam - General 1994 Eyes conjunctiva/eyelids Overall: cornea clear 08/05/2015 None Full Exam - General 1994 Eyes conjunctiva/eyelids Overall: eyelids normal 08/05/2015 None Full Exam [...] None Full Exam - General 1994 Eyes conjunctiva/eyelids Overall: conjunctiva clear 04/03/2015 None Full Exam - General 1994 Eyes conjunctiva/eyelids Overall: cornea clear 04/03/2015 None Full Exam - General 1994 Eyes conjunctiva/eyelids Overall: eyelids normal 04/03/2015 None Full Exam [...] None Full Exam - General 1994 Eyes conjunctiva/eyelids Overall: conjunctiva clear 01/30/2015 None Full Exam - General 1994 Eyes conjunctiva/eyelids Overall: cornea clear 01/30/2015 None Full Exam - General 1994 Eyes conjunctiva/eyelids Overall: eyelids normal 01/30/2015 None Full Exam [...] None Full Exam - General 1994 Eyes conjunctiva/eyelids Overall: conjunctiva clear 01/02/2015 None Full Exam - General 1994 Eyes conjunctiva/eyelids Overall: cornea clear 01/02/2015 None Full Exam - General 1994 Eyes conjunctiva/eyelids Overall: eyelids normal 01/02/2015 None Full Exam [...] Date GLUC MONITOR CONT PHYS I&R CPT-4: 91935 06/05/2018 GLUCOSE MONITORING CONT CPT-4: 99948 05/22/2018 THER/PROPH/DIAG INJ SC/IM CPT-4: 76752 01/12/2018 VITAMIN B12 INJECTION CPT- 4: J3420 01/12/2018 THER/PROPH/DIAG INJ SC/IM CPT-4: 72189 09/15/2017 VITAMIN B12 INJECTION CPT- 4: J3420 09/15/2017 THER/PROPH/DIAG INJ SC/IM CPT-4: 06285 08/17/2017 VITAMIN B12 INJECTION CPT- 4: J3420 08/17/2017 THER/PROPH/DIAG INJ SC/IM CPT-4: 67897 07/19/2017 VITAMIN B12 INJECTION CPT- 4: J3420 07/19/2017 THER/PROPH/DIAG INJ SC/IM CPT-4: 29421 05/19/2017 VITAMIN B12 INJECTION CPT- 4: J3420 05/19/2017 THER/PROPH/DIAG INJ SC/IM CPT-4: 99958 04/06/2017 VITAMIN B12 INJECTION CPT- 4: J3420 04/06/2017 THER/PROPH/DIAG INJ SC/IM CPT-4: 39068 01/04/2017 VITAMIN B12 INJECTION CPT- 4: J3420 01/04/2017 THER/PROPH/DIAG INJ SC/IM CPT-4: 23849 12/10/2016 VITAMIN B12 INJECTION CPT- 4: J3420 12/10/2016 THER/PROPH/DIAG INJ SC/IM CPT-4: 77581 10/13/2016 TRIAMCINOLONE ACET INJ NOS CPT-4: J3301 10/13/2016 THER/PROPH/DIAG INJ SC/IM CPT-4: 06235 09/03/2016 VITAMIN B12 INJECTION CPT- 4: J3420 09/03/2016 THER/PROPH/DIAG INJ SC/IM CPT-4: 62411 07/29/2016 VITAMIN B12 INJECTION CPT- 4: J3420 07/29/2016 THER/PROPH/DIAG INJ SC/IM CPT-4: 83561 06/03/2016 VITAMIN B12 INJECTION CPT- 4: J3420 06/03/2016 PNEUMOCOCCAL VACC [address]: 36396693 CPT-4: 52102 04/22/2016 ADMIN PNEUMOCOCCAL VACCINE SNOMED CT: 36136902 CPT-4: G0009 04/22/2016 VITAMIN B12 INJECTION CPT- 4: J3420 09/15/2015 THER/PROPH/DIAG INJ SC/IM CPT-4: 74519 09/15/2015 THER/PROPH/DIAG INJ SC/IM CPT-4: 30395 09/08/2015 VITAMIN B12 INJECTION CPT- 4: J3420 09/08/2015 THER/PROPH/DIAG INJ SC/IM CPT-4: 37920 09/01/2015 VITAMIN B12 INJECTION CPT- 4: J3420 09/01/2015 THER/PROPH/DIAG INJ SC/IM CPT-4: 73790 08/25/2015 VITAMIN B12 INJECTION CPT- 4: J3420 08/25/2015 Vital Signs Date Vital 12/12/2018 Blood Pressure 1: 148/80 Code: 8480-6 BMI: 41.6 Code: 77769-1 Heart Rate 1: 80 bpm Height: 4'11" SpO2: 94% Weight: 206 lbs 11/23/2018 BMI: 41.4 Code: 40445-5 Height: 4'11" Weight: 205 lbs 08/15/2018 Blood Pressure 1: 144/70 Code: 8480-6 BMI: 40.8 Code: 50224-0 Heart Rate 1: 83 bpm Height: 4'11" SpO2: 97% Weight: 202 lbs 06/05/2018 Blood Pressure 1: 132/70 Code: 8480-6 BMI: 41.6 Code: 25795-5 Heart Rate 1: 70 bpm Height: 4'11" SpO2: 96% Weight: 206 lbs 05/22/2018 Blood Pressure 1: 148/72 Code: 8480-6 BMI: 41.6 Code: 77235-8 Heart Rate 1: 82 bpm Height: 4'11" SpO2: 95% Weight: 206 lbs 05/15/2018 Blood Pressure 1: 140/80 Code: 8480-6 BMI: 41.6 Code: 85862-9 Heart Rate 1: 86 bpm Height: 4'11" SpO2: 92% Weight: 206 lbs 01/12/2018 Blood Pressure 1: 140/78 Code: 8480-6 BMI: 42.2 Code: 87013-9 Heart Rate 1: 73 bpm Height: 4'11" SpO2: 97% Weight: 209 lbs 11/25/2017 Blood Pressure 1: 140/68 Code: 8480-6 BMI: 42.2 Code: 29059-6 Heart Rate 1: 76 bpm Height: 4'11" SpO2: 94% Weight: 209 lbs 09/15/2017 Blood Pressure 1: 146/67 Code: 8480-6 BMI: 42.2 Code: 15982-9 Heart Rate 1: 69 bpm Height: 4'11" SpO2: 97% Weight: 209 lbs 08/17/2017 Blood Pressure 1: 144/70 Code: 8480-6 BMI: 41.8 Code: 41781-9 Heart Rate 1: 63 bpm Height: 4'11" SpO2: 97% Weight: 207 lbs 07/19/2017 Blood Pressure 1: 142/74 Code: 8480-6 BMI: 41.4 Code: 29926-0 Heart Rate 1: 71 bpm Height: 4'11" SpO2: 96% Weight: 205 lbs 05/19/2017 Blood Pressure 1: 148/76 Code: 8480-6 BMI: 42.8 Code: 65592-4 Heart Rate 1: 72 bpm Height: 4'11" SpO2: 94% Weight: 212 lbs 02/15/2017 Blood Pressure 1: 154/70 Code: 8480-6 BMI: 42.5 Code: 79724-9 Heart Rate 1: 68 bpm Height: 4'11" SpO2: 97% Weight: 210 lbs 8 oz 11/16/2016 Blood Pressure 1: 142/78 Code: 8480-6 BMI: 41.6 Code: 73841-5 Heart Rate 1: 68 bpm Height: 4'11" SpO2: 95% Temperature: 36.0 (C) / 96.8 (F) Weight: 206 lbs 08/19/2016 Blood Pressure 1: 120/74 Code: 8480-6 BMI: 41.6 Code: 08195-7 Heart Rate 1: 75 bpm Height: 4'11" SpO2: 95% Weight: 206 lbs 07/15/2016 Blood Pressure 1: 140/76 Code: 8480-6 BMI: 42.0 Code: 16424-2 Heart Rate 1: 76 bpm Height: 4'11" SpO2: 96% Weight: 208 lbs 06/03/2016 Blood Pressure 1: 130/78 Code: 8480-6 BMI: 42.8 Code: 25725-7 Heart Rate 1: 72 bpm Height: 4'11" SpO2: 98% Weight: 212 lbs 04/22/2016 Blood Pressure 1: 142/84 Code: 8480-6 BMI: 41.8 Code: 64814-5 Heart Rate 1: 86 bpm Height: 4'11" SpO2: 92% Weight: 207 lbs 01/22/2016 Blood Pressure 1: 162/64 Code: 8480-6 BMI: 41.2 Code: 70247-6 Heart Rate 1: 70 bpm Height: 4'11" SpO2: 97% Weight: 204 lbs 10/23/2015 Blood Pressure 1: 130/70 Code: 8480-6 BMI: 40.4 Code: 67681-0 Heart Rate 1: 72 bpm Height: 4'11" SpO2: 95% Weight: 200 lbs 09/12/2015 Blood Pressure 1: 142/62 Code: 8480-6 BMI: 39.4 Code: 01884-7 Heart Rate 1: 63 bpm Height: 4'11" SpO2: 96% Weight: 195 lbs 08/05/2015 Blood Pressure 1: 144/60 Code: 8480-6 BMI: 41.0 Code: 99532-6 Heart Rate 1: 92 bpm Height: 4'11" SpO2: 90% SpO2: 97% Weight: 203 lbs 04/03/2015 Blood Pressure 1: 142/68 Code: 8480-6 BMI: 40.6 Code: 66967-4 Heart Rate 1: 77 bpm Height: 4'11" SpO2: 95% Weight: 201 lbs 01/30/2015 Blood Pressure 1: 150/72 Code: 8480-6 BMI: 40.2 Code: 81976-5 Heart Rate 1: 64 bpm Height: 4'11" Weight: 199 lbs 01/02/2015 Blood Pressure 1: 136/72 Code: 8480-6 BMI: 39.8 Code: 96233-9 Heart Rate 1: 68 bpm Height: 4'11" Weight: 197 lbs Functional Status No Functional Status data History of Present Illness Symptom Name Status Result Effective Date Notes Quality insulin dependent 12/12/2018 None Quality chronic 12/12/2018 None Severity moderate 12/12/2018 None Significant Medications insulin 12/12/2018 None Alleviating Factors insulin 12/12/2018 None Exacerbating Factors diet 12/12/2018 None Nutrition regular diet 12/12/2018 None Pertinent Findings dizziness 12/12/2018 in the mornings when she first wakes up she will turn to her side and lay there before sitting all the way up Pertinent Findings dyspnea 12/12/2018 with activity or if she is in the cold Pertinent Findings Denies nausea 12/12/2018 None Pertinent Findings numbness 12/12/2018 "once in a while" in her fingers Onset of Symptom onset as an adult 12/12/2018 None Quality chronic 12/12/2018 None Quality primary hypertension 12/12/2018 None Onset and Resolution ongoing 12/12/2018 None Onset of Symptom during adulthood 12/12/2018 None Blood Pressure Values not checking blood pressure at home 12/12/2018 None Alleviating Factors medication 12/12/2018 None Pertinent Findings Denies edema 12/12/2018 None Glucose monitoring twice daily 12/12/2018 None Test results HgbA1c level 7.4 12/12/2018 None Location-Extremities on the left thigh 11/23/2018 None Quality acute 11/23/2018 None Color erythematous 11/23/2018 None Pertinent Findings Denies pain 11/23/2018 None Pertinent Findings Denies fever 11/23/2018 None Quality insulin dependent 08/15/2018 None Quality chronic 08/15/2018 None Severity moderate 08/15/2018 None Significant Medications insulin 08/15/2018 None Alleviating Factors insulin 08/15/2018 None Exacerbating Factors diet 08/15/2018 None Nutrition regular diet 08/15/2018 None Pertinent Findings dizziness 08/15/2018 in the mornings when she first wakes up she will turn to her side and lay there before sitting all the way up Pertinent Findings dyspnea 08/15/2018 with activity or if she is in the cold Pertinent Findings Denies nausea 08/15/2018 None Pertinent Findings numbness 08/15/2018 "once in a while" in her fingers Onset of Symptom onset as an adult 08/15/2018 None Quality chronic 08/15/2018 None Quality primary hypertension 08/15/2018 None Onset and Resolution ongoing 08/15/2018 None Onset of Symptom during adulthood 08/15/2018 None Blood Pressure Values not checking blood pressure at home 08/15/2018 None Alleviating Factors medication 08/15/2018 None Pertinent Findings Denies edema 08/15/2018 None Glucose monitoring twice daily 08/15/2018 None Test results Pt checking blood glucose at home, see scanned readings 08/15/2018 None diabetes mellitus Quality insulin dependent 06/05/2018 None [...] blood glucose at home, see scanned readings 01/12/2018 None diabetes mellitus Glucose monitoring twice daily [...] 11/25/2017 None lower leg pain Alleviating Factors NSAID's 11/25/2017 None lower leg pain Alleviating Factors [...] blood glucose at home, see scanned readings 07/19/2017 None diabetes mellitus Glucose monitoring twice daily [...] blood glucose at home, see scanned readings 05/19/2017 None diabetes mellitus Glucose monitoring twice daily 05/19/2017 (2-4 times per day) diabetes mellitus Pertinent Findings Denies nausea 05/19/2017 [...] blood glucose at home, see scanned readings 11/16/2016 None cough Location in the throat 11/16/2016 [...] blood glucose at home, see scanned readings 07/15/2016 None diabetes mellitus Blood glucose levels less [...] blood glucose at home, see scanned readings 01/22/2016 None hypertension Quality intermittent 10/23/2015 None hypertension [...] blood glucose at home, see scanned readings 08/05/2015 None diabetes mellitus Glucose monitoring twice daily [...] data Encounters Encounter Performer Location Codes Date [id number]) 78059 EST. PATIENT, LEVEL IV Diagnosis: Essential (primary) hypertension[ICD10: I10] Diagnosis: Hypothyroidism, unspecified[ICD10: E03.9] Diagnosis: Chronic kidney disease, stage 3 (moderate)[ICD10: N18.3] Diagnosis: Type 2 diabetes mellitus with hyperglycemia[ICD10: E11.65] Giselle Knox MD, [facility] CPT-4: 00679 12/12/2018 [id number] EST. PATIENT, LEVEL III Diagnosis: Burn of second degree of left thigh, initial encounter[ICD10: T24.212A] Chasity Knox MD, [facility] CPT-4: 98448 11/23/2018 [id number]) 13575 EST. PATIENT, LEVEL IV Diagnosis: Type 2 diabetes mellitus with hyperglycemia[ICD10: E11.65] Diagnosis: Essential (primary) hypertension[ICD10: I10] Diagnosis: Chronic kidney disease, stage 3 (moderate)[ICD10: N18.3] Diagnosis: Low back pain[ICD10: M54.5] Giselle Knox MD, [facility] CPT-4: 55136 08/15/2018 [id number]) 62922 EST. PATIENT, LEVEL III Diagnosis: Type 2 diabetes mellitus with hyperglycemia[ICD10: E11.65] Giselle Knox MD, [facility] CPT-4: 08357 06/05/2018 ([id number]) Miscellaneous no charge Diagnosis: Type 2 diabetes mellitus with hyperglycemia[ICD10: E11.65] Jennifer Knox MD, [facility] CPT-4: 24609 05/29/2018 ([id number]) 33411 EST. PATIENT, LEVEL IV Diagnosis: Type 2 diabetes mellitus with hyperglycemia[ICD10: E11.65] Diagnosis: Essential (primary) hypertension[ICD10: I10] Diagnosis: Hypothyroidism, unspecified[ICD10: E03.9] Giselle Knox MD, [facility] CPT-4: 34626 05/15/2018 ([id number]) 42581 EST. PATIENT, LEVEL IV Diagnosis: Essential (primary) hypertension[ICD10: I10] Diagnosis: Type 2 diabetes mellitus with hyperglycemia[ICD10: E11.65] Diagnosis: Hypothyroidism, unspecified[ICD10: E03.9] Diagnosis: Spinal stenosis, lumbar region without neurogenic claudication[ICD10: M48.061] Diagnosis: Vitamin B12 deficiency anemia due to intrinsic factor deficiency[ICD10: D51.0] Giselle Knox MD, [facility] CPT-4: 27749 01/12/2018 ([id number]) 05769 EST. 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 PATIENT, LEVEL IV Diagnosis: Localized edema[ICD10: R60.0] Diagnosis: Vitamin B12 deficiency anemia due to intrinsic factor deficiency[ICD10: D51.0] Chasity Knox MD, [facility] CPT-4: 81515 09/15/2017 [id number] EST. PATIENT, LEVEL IV Diagnosis: Essential (primary) hypertension[ICD10: I10] Diagnosis: Type 2 diabetes mellitus with hyperglycemia[ICD10: E11.65] Diagnosis: Vitamin B12 deficiency anemia due to intrinsic factor deficiency[ICD10: D51.0] Chasity Knox MD, [facility] CPT-4: 06985 08/17/2017 81230 EST. PATIENT, LEVEL IV Diagnosis: Type 2 diabetes mellitus with hyperglycemia[ICD10: E11.65] Diagnosis: Essential (primary) hypertension[ICD10: I10] Diagnosis: Vitamin B12 deficiency anemia due to intrinsic factor deficiency[ICD10: D51.0] Chasity Knox MD, [facility] CPT-4: 13314 07/19/2017 ([id number]) 59762 EST. PATIENT, LEVEL IV Diagnosis: Essential (primary) hypertension[ICD10: I10] Diagnosis: Type 2 diabetes mellitus with hyperglycemia[ICD10: E11.65] Diagnosis: Hypothyroidism, unspecified[ICD10: E03.9] Diagnosis: Vitamin B12 deficiency anemia due to intrinsic factor deficiency[ICD10: D51.0] Diagnosis: Chronic kidney disease, stage 3 (moderate)[ICD10: N18.3] Giselle Knox MD, [facility] CPT-4: 73030 05/19/2017 ([id number]) 30800 EST. PATIENT, LEVEL IV Diagnosis: Essential (primary) hypertension[ICD10: I10] Diagnosis: Type 2 diabetes mellitus with hyperglycemia[ICD10: E11.65] Diagnosis: Hypothyroidism, unspecified[ICD10: E03.9] Giselle Knox MD, [facility] CPT-4: 96404 02/15/2017 ([id number]) 15836 EST. PATIENT, LEVEL IV Diagnosis: Type 2 diabetes mellitus with hyperglycemia[ICD10: E11.65] Diagnosis: Cough[ICD10: R05] Diagnosis: Acute upper respiratory infection, unspecified[ICD10: J06.9] Diagnosis: Hypothyroidism, unspecified[ICD10: E03.9] Diagnosis: Chronic kidney disease, stage 3 (moderate)[ICD10: N18.3] Giselle Knox MD, [facility] CPT-4: 99444 11/16/2016 ([id number]) 21762 EST. PATIENT, LEVEL IV Diagnosis: Type 2 diabetes mellitus with hyperglycemia[ICD10: E11.65] Diagnosis: Hypothyroidism, unspecified[ICD10: E03.9] Diagnosis: Essential (primary) hypertension[ICD10: I10] Giselle Knox MD, [facility] CPT-4: 31886 08/19/2016 ([id number]) 78318 EST. PATIENT, LEVEL III Diagnosis: Type 2 diabetes mellitus with hyperglycemia[ICD10: E11.65] Giselle Knox MD, [facility] CPT-4: 06354 07/15/2016 ([id number]) 61662 EST. PATIENT, LEVEL IV Diagnosis: Type 2 diabetes mellitus with hyperglycemia[ICD10: E11.65] Diagnosis: Atrophy of thyroid (acquired)[ICD10: E03.4] Diagnosis: Vitamin B12 deficiency anemia due to intrinsic factor deficiency[ICD10: D51.0] Diagnosis: Chronic kidney disease, stage 3 (moderate)[ICD10: N18.3] Diagnosis: Essential (primary) hypertension[ICD10: I10] Jennifer Knox MD, [facility] CPT-4: 09614 06/03/2016 ([id number]) 58283 EST. PATIENT, LEVEL III Diagnosis: Type 2 diabetes mellitus with hyperglycemia[ICD10: E11.65] Diagnosis: Essential (primary) hypertension[ICD10: I10] Diagnosis: Chronic kidney disease, stage 3 (moderate)[ICD10: N18.3] Diagnosis: VACCIN STREP PNEUMONIAE[ICD10: Z23] Giselle Knox MD, [facility] CPT-4: 86880 04/22/2016 95969 EST. PATIENT, LEVEL IV Diagnosis: Type 2 diabetes mellitus with hyperglycemia[ICD10: E11.65] Diagnosis: Essential (primary) hypertension[ICD10: I10] Chasity Knox MD, [facility] CPT-4: 08878 01/22/2016 ([id number]) 77079 EST. PATIENT, LEVEL III Diagnosis: Type 2 diabetes mellitus with hyperglycemia[ICD10: E11.65] Diagnosis: Essential (primary) hypertension[ICD10: I10] Giselle Knox MD, [facility] CPT-4: 43915 10/23/2015 24351 EST. PATIENT, LEVEL IV Diagnosis: Type 2 diabetes mellitus with hyperglycemia[ICD10: E11.65] Diagnosis: Vitamin B12 deficiency anemia due to intrinsic factor deficiency[ICD10: D51.0] Diagnosis: Essential (primary) hypertension[ICD10: I10] Chasity Knox MD, [facility] CPT-4: 29457 09/12/2015 ([id number]) 61422 EST. PATIENT, LEVEL IV Diagnosis: Essential (primary) hypertension[ICD10: I10] Diagnosis: Type 2 diabetes mellitus with hyperglycemia[ICD10: E11.65] Diagnosis: Hypothyroidism, unspecified[ICD10: E03.9] Giselle Knox MD, [facility] CPT-4: 34434 08/05/2015 ([id number]) 19096 EST. PATIENT, LEVEL III Diagnosis: ESSENTIAL HYPERTENSION[ICD9: 401.9] Diagnosis: DIABETES TYPE II[ICD9: 250.00] Jennifer Knox MD, [facility] CPT-4: 28236 04/03/2015 ([id number]) 97322 EST. PATIENT, LEVEL IV Diagnosis: ESSENTIAL HYPERTENSION[ICD9: 401.9] Diagnosis: DIABETES TYPE II[ICD9: 250.00] Diagnosis: Hypothyroidism[ICD9: 244.9] [facility] CPT-4: 15287 01/30/2015 ([id number]) OFFICE VISIT, NEW - LEVEL 4 Diagnosis: ESSENTIAL HYPERTENSION[ICD9: 401.9] Diagnosis: DIABETES TYPE II[ICD9: 250.00] Diagnosis: Impacted cerumen[ICD9: 380.4] Jennifer Knox MD, [facility] CPT-4: 27318 01/02/2015 Plan of Care Planned Activity Notes [...] months based on previous levels of control. DM-contr olled per readings -check labs today CKD -check labs 12/12/2018 Appointment: Giselle Mccoy WPtel: [facility] [address] (15 min) Moderate 12/12/2018 Patient Education: Patient Medication Summary Completed 12/12/2018 Patient Education: Hypertension Completed 12/12/2018 Care Plan: Comp Metabolic Pending 12/12/2018 Care Plan: Cbc With Differential Pending 12/12/2018 Care Plan: %Hba1C LOINC : 97256-8 Pending 12/12/2018 Care Plan: Tsh Pending 12/12/2018 Care Plan: Free T4 Pending 12/12/2018 Care Plan: Lipid Pending 12/12/2018 Visit Plan: Burn left thigh - The patient was instructed in appropriate wound care. The patient was instructed to use the ointment as per RX. The patient is to call for any change in symptoms, increase in size of the lesion, increase in pain, worsening redness, warmth, discharge. 11/23/2018 Appointment: Chasity Caldwell WPtel: [id number] (30 min) Complex 11/23/2018 Patient Education: Patient Medication Summary Completed 11/23/2018 Visit Plan: Diabetes Mellitus - rts. I have recommended for the patient to have follow up labs prior to the next office visit. The patient has been instructed to continue with current medications as previously directed, continue with regular FSBS monitoring to assure continued control of diabetes. Pt to call for any acute concerns, complaints, or if the blood glucose readings are starting to become less controlled. Hyperlipidemia - pt has been counseled about [...] to assure normal liver response to medications. CKD-check labs Low back pain -recommend PT -patient is not interested at this time. 08/15/2018 App[facility]ment: [phone] [phone] ([facility]) Complex 08/15/2018 Patient Education: Patient Medication Summary Completed 08/15/2018 Patient Education: Hypertension Completed 08/15/2018 Patient Education: Back Pain Completed 08/15/2018 Visit Plan: DM-patient here to discuss IPRO [...] of plan. 06/05/2018 Appointment: [phone] [phone] (15 min) Moderate 06/05/2018 Patient Education: Patient [...] of IPRO. 05/22/2018 Appointment: Giselle Mccoy WPtel: [phone] (30 min) Complex 05/22/2018 Patient Education: Patient [...] of control. 05/15/2018 Appointment: Giselle Mccoy WPtel: [phone] (15 min) Moderate 05/15/2018 Patient Education: Patient Medication Summary Completed 05/15/2018 Patient Education: Hypertension Completed 05/15/2018 Referral: Tom Pike Patient informed. Referral info faxed. Completed 02/07/2018 Visit Plan: Hypertension - well controlled - [...] months based on previous levels of control. D iabetes Mellitus - Uncontrolled - per recent FSBS [...] evaluation-recommend PT 01/12/2018 Appointment: Giselle Mccoy WPtel: [phone] (30 min) Complex 01/12/2018 Patient Education: Patient Medication Summary Completed 01/12/2018 Care Plan: Referral Order SNOMED-CT : [id number] Pending 01/12/2018 Visit Plan: Varicose veins-rx for compression stockings provided and instructed on use Low back pain-recommend xray lumbar spine Hypothyroidism- check labs DM-check Hgb A1c 11/25/2017 Appointment: Giselle cMcoy WPtel: [phone] [place] (30 min) Complex 11/25/2017 Patient Education: Patient Medication Summary Completed 11/25/2017 Care Plan: X-RAY EXAM L-S SPINE 2/3 VWS LOINC : 73120-9 Pending 11/25/2017 Visit Plan: Edema - Left [...] or concerns. 09/15/2017 Appointment: Chasity Caldwell WPtel: [phone] [place] (30 min) Complex 09/15/2017 Patient Education: [...] control. 08/17/2017 Appointment: [facility] Caldwell [phone] [facility] (15 min) Moderate 08/17/2017 Patient Education: Patient [...] home. 07/19/2017 Appointment: [facility] Caldwell [phone] [facility] (15 min) Moderate 07/19/2017 Patient Education: Patient Medication Summary Completed 07/19/2017 [phone] ([facility] Moderate 06/13/2017 Visit Plan: [...] to medications. 05/19/2017 Appointment: [phone] [phone] (30 min) [facility] 05/19/2017 Patient Education: Patient Medication Summary Completed [...] control. 02/15/2017 Appointment: [facility]ccoy [facility] [phone] [phone] (15 min) Moderate 02/15/2017 Patient Education: Patient [...] today 11/16/2016 Appointment: [facility]ccoy [phone] [phone] (15 min) Moderate 11/16/2016 Patient Education: Patient [...] - well controlled - continue with current m edications, continue with no added salt diet. Pt [...] of control. 08/19/2016 Appointment: Giselle Mccoy WPtel: [phone] (15 min) Moderate 08/19/2016 Patient Education: Patient Medication Summary Completed 08/19/2016 Patient Education: Obesity Completed 08/19/2016 Care Plan: Tsh Cancelled 08/19/2016 Care Plan: %Hba1C LOINC : 25692-3 Cancelled 08/19/2016 Care Plan: Lipid Cancelled 08/19/2016 Care Plan: Free T4 patient coming back next week Cancelled 08/19/2016 Appointment: Injection 07/29/2016 Patient Education: Patient Medication Summary Completed 07/29/2016 Appointment: Giselle Mccoy WPtel: [phone] (30 min) Complex 07/22/2016 Visit Plan: Diabetes-having hypoglycemia in the mornings-insulin adjusted-patient and verbalized understanding of plan. Follow up in 1 month-call sooner if still having low blood sugars. Sinus congestion-start claritin 07/15/2016 Appointment: Giselle Mccoy WPtel: [phone] (30 min) Complex 07/15/2016 Patient Education: Patient [...] of control. 06/03/2016 Appointment: Jennifer Knox WPtel: [address] [place], [place] [id number] (15 min) Moderate 06/03/2016 Patient Education: Patient [...] 1 MONTH 04/22/2016 Appointment: Giselle Mccoy WPtel: [phone] (15 min) Moderate 04/22/2016 Patient Education: Patient [...] - pt with chronic hypothyroidism, continue with curre nt medication, will monitor pt to signs or [...] needed. 01/02/2015 Appointment: [facility]el[phone] [facility] [place] ([place] New Patient 01/02/2015 Patient [...] to assure normal liver response to medications. . Diabetes Mellitus - rts. I have recommended for the patient to have follow up labs prior to the next office visit. The patient has been instructed to continue with current medications as previously directed, continue with regular FSBS monitoring to assure continued control of diabetes. Pt to call for any acute concerns, complaints, or if the blood glucose readings are starting to become less controlled. Hyperlipidemia - pt has been counseled about [...] to assure normal liver response to medications. CKD-check labs Low back pain -recommend PT -patient is not interested at this time. RETURN TUESDAY FOR REMOVAL IF DEVICE . [...] with any acute changes or concerns. . Hypertension - well controlled - continue [...] months based on previous levels of control. DM-controlled per readings -check labs today CKD -check labs . DM-patient here to discuss IPRO results [...] directed. Patient and verbalized understanding of plan. . Burn left thigh - The patient was instructed in appropriate wound care. The patient was instructed to use the ointment as per RX. The patient is to call for any change in symptoms, increase in size of the lesion, increase in pain, worsening redness, warmth, discharge. CHECK LABS WITH NEXT APPOINTMENT . Hypertension [...]
--- OUTSIDE RECORDS SUMMARY | 2019-01-23 08:03 | XMS REPORT | CCD ---
Author Author [facility] Organization [facility] Address [address] [place] [address] Phone Care Team Providers Care Video Photographer Name Role Phone PP Unavailable CCM Unavailable Summary Purpose Interface Exchange Insurance Providers Payer name Policy type / Coverage type Covered libertarian ID Effective Begin Date Effective End Date [facility] Commercial Insurance [id number] Unknown Family history Runs in the family [...] Start Date Stop Date Status Fill Instructions pravastatin 10 mg tablet RxNorm: 970811 1 Tablet(s) PO QPM 12/20/2018 04/18/2019 Active pravastatin 10 mg tablet RxNorm: 515154 1 Tablet(s) PO QPM 12/20/2018 12/19/2018 Inactive losartan 100 mg tablet RxNorm: 458866 Tablet(s) TAKE ONE TABLET BY MOUTH DAILY 12/19/2018 12/13/2019 Active Humulin 70/30 U-100 Insulin 100 unit/mL subcutaneous suspension RxNorm: 163863 Unit(s) INJECT 18 UNITS UNDER THE SKIN BEFORE MEALS 12/12/2018 04/22/2019 Active Lantus Solostar U-100 Insulin 100 unit/mL (3 mL) subcutaneous pen RxNorm: 637282 Unit(s) [id number] UNITS UNDER THE SKIN EVERY NIGHT AT BEDTIME 12/12/2018 01/14/2021 Active Humulin 70/30 U-100 Insulin 100 unit/mL subcutaneous suspension RxNorm: 485541 INJECT 18 UNITS UNDER THE SKIN EVERY MORNING 12/05/2018 03/24/2019 Active silver sulfadiazine 1 % topical cream RxNorm: 680305 1 Application TOP BID 11/23/2018 No Stop Date Active Keflex 500 mg capsule RxNorm: 975326 1 Capsule(s) PO TID 11/23/2018 11/29/2018 Inactive carvedilol 12.5 mg tablet RxNorm: 399441 Tablet(s) TAKE ONE TABLET BY MOUTH TWICE A DAY 11/01/2018 10/26/2019 Active terazosin 2 mg capsule RxNorm: 924347 Capsule(s) TAKE ONE CAPSULE BY MOUTH DAILY 09/06/2018 08/31/2019 Active levothyroxine 100 mcg tablet RxNorm: 600670 TAKE ONE TABLET BY MOUTH DAILY 09/06/2018 02/02/2019 Active Contour Test Strips RxNorm: TEST BLOOD SUGAR TWO TIMES A DAY E11.65 08/30/2018 03/01/2020 Active Lantus Solostar U-100 Insulin 100 unit/mL (3 mL) subcutaneous pen RxNorm: 690089 INJECT 35 UNITS UNDER THE SKIN EVERY NIGHT AT BEDTIME 08/22/2018 12/11/2018 Inactive carvedilol 12.5 mg tablet RxNorm: 728665 TAKE ONE TABLET BY MOUTH TWICE A DAY 08/07/2018 10/31/2018 Inactive Humulin 70/30 U-100 Insulin 100 unit/mL subcutaneous suspension RxNorm: 862708 INJECT 18 UNITS UNDER THE SKIN EVERY MORNING 06/20/2018 06/19/2018 Inactive Humulin 70/30 U-100 Insulin 100 unit/mL subcutaneous suspension RxNorm: 878248 Unit(s) INJECT 18 UNITS UNDER THE SKIN EVERY MORNING 06/20/2018 09/11/2018 Inactive terazosin 2 mg capsule RxNorm: 397954 TAKE ONE CAPSULE BY MOUTH DAILY 06/09/2018 09/05/2018 Inactive Humulin 70/30 U-100 Insulin 100 unit/mL subcutaneous suspension RxNorm: 307666 18 Unit(s) SQ QAM 05/15/2018 06/19/2018 Inactive levothyroxine 100 mcg tablet RxNorm: 395575 1 Tablet(s) PO daily 05/11/2018 09/05/2018 Inactive carvedilol 12.5 mg tablet RxNorm: 934030 TAKE ONE TABLET BY MOUTH TWICE A DAY 05/05/2018 08/06/2018 Inactive losartan 100 mg tablet RxNorm: 767984 TAKE ONE TABLET BY MOUTH DAILY 03/24/2018 12/18/2018 Inactive terazosin 2 mg capsule RxNorm: 432086 TAKE ONE CAPSULE BY MOUTH DAILY 03/07/2018 06/08/2018 Inactive cyanocobalamin (vit B-12) 1,000 mcg/mL injection solution RxNorm: 664815 1 Milliliter(s) Inj 01/12/2018 01/12/2018 Inactive Lantus Solostar U-100 Insulin 100 unit/mL (3 mL) subcutaneous pen RxNorm: 758219 Unit(s) INJECT 24 UNITS UNDER THE SKIN EVERY NIGHT AT BEDTIME 01/12/2018 08/21/2018 Inactive Humulin 70/30 U-100 Insulin 100 unit/mL subcutaneous suspension RxNorm: 269880 INJECT 18 UNITS UNDER THE SKIN EVERY MORNING 11/14/2017 03/05/2018 Inactive carvedilol 12.5 mg tablet RxNorm: 795195 TAKE ONE TABLET BY MOUTH TWICE A DAY 11/07/2017 05/04/2018 Inactive cyanocobalamin (vit B-12) 1,000 mcg/mL injection solution RxNorm: 218805 Milliliter(s) Inj 09/15/2017 09/15/2017 Inactive terazosin 2 mg capsule RxNorm: 910873 Capsule(s) TAKE ONE CAPSULE BY MOUTH DAILY 09/07/2017 03/05/2018 Inactive Lantus Solostar 100 unit/mL (3 mL) subcutaneous insulin pen RxNorm: 238485 INJECT 35 UNITS UNDER THE SKIN EVERY NIGHT AT BEDTIME 08/29/2017 01/11/2018 Inactive One Touch Test strips RxNorm: 1 test Miscellaneous BID 08/22/2017 08/16/2018 Inactive Contour Test Strips RxNorm: TEST BLOOD SUGAR TWO TIMES A DAY E11.65 08/22/2017 08/29/2018 Inactive Tamiflu 75 mg capsule RxNorm: 331841 1 Capsule(s) PO daily 08/17/2017 08/16/2017 Inactive Tamiflu 75 mg capsule RxNorm: 893235 1 Capsule(s) PO daily 08/17/2017 08/26/2017 Inactive cyanocobalamin (vit B-12) 1,000 mcg/mL injection solution RxNorm: 047723 1 Milliliter(s) Inj 08/17/2017 08/17/2017 Inactive carvedilol 12.5 mg tablet RxNorm: 925206 TAKE ONE TABLET BY MOUTH TWICE A DAY 08/10/2017 11/06/2017 Inactive cyanocobalamin (vit B-12) 1,000 mcg/mL injection solution RxNorm: 751995 1 Milliliter(s) Inj 07/19/2017 07/19/2017 Inactive Humulin 70/30 100 unit/mL subcutaneous suspension RxNorm: 221577 14 Unit(s) SQ QAM 07/06/2017 05/14/2018 Inactive Lantus Solostar 100 unit/mL (3 mL) subcutaneous insulin pen RxNorm: 861127 26 Unit(s) SQ QHS 07/06/2017 08/28/2017 Inactive losartan 100 mg tablet RxNorm: 011934 TAKE ONE TABLET BY MOUTH DAILY 06/07/2017 03/23/2018 Inactive Lantus Solostar 100 unit/mL (3 mL) subcutaneous insulin pen RxNorm: 832235 28 Unit(s) SQ QHS 05/19/2017 07/05/2017 Inactive cyanocobalamin (vit B-12) 1,000 mcg/mL injection solution RxNorm: 745467 1 Milliliter(s) Inj 05/19/2017 05/19/2017 Inactive terazosin 2 mg capsule RxNorm: 848359 TAKE ONE CAPSULE BY MOUTH DAILY 05/16/2017 09/06/2017 Inactive cyanocobalamin (vit B-12) 1,000 mcg/mL injection solution RxNorm: 406539 1 Milliliter(s) Inj 04/06/2017 04/06/2017 Inactive cyanocobalamin (vit B-12) 1,000 mcg/mL injection solution RxNorm: 578507 Milliliter(s) Inj 01/04/2017 01/04/2017 Inactive Humulin 70/30 U-100 Insulin 100 unit/mL subcutaneous suspension RxNorm: 598179 18 Unit(s) SQ QAM 12/22/2016 06/04/2017 Inactive cyanocobalamin (vit B-12) 1,000 mcg/mL injection solution RxNorm: 499054 1 Milliliter(s) Inj 12/10/2016 12/10/2016 Inactive Zithromax Z-Jose 250 mg tablet RxNorm: 020436 1 Tablet(s) PO UD 11/16/2016 11/20/2016 Inactive terazosin 2 mg capsule RxNorm: 751037 TAKE ONE CAPSULE BY MOUTH DAILY 11/08/2016 05/06/2017 Inactive Lantus Solostar 100 unit/mL (3 mL) subcutaneous insulin pen RxNorm: 228236 INJECT 35 UNITS UNDER THE SKIN EVERY NIGHT AT BEDTIME 10/22/2016 07/18/2017 Inactive cyanocobalamin (vit B-12) 1,000 mcg/mL injection solution RxNorm: 585843 Milliliter(s) Inj 10/13/2016 10/13/2016 Inactive cyanocobalamin (vit B-12) 1,000 mcg/mL injection solution RxNorm: 785349 1 Milliliter(s) Inj 09/03/2016 09/03/2016 Inactive Contour Test Strips RxNorm: TEST BLOOD SUGAR TWO TIMES A DAY E11.65 08/19/2016 08/21/2017 Inactive carvedilol 12.5 mg tablet RxNorm: 585107 TAKE ONE TABLET BY MOUTH TWICE A DAY 08/05/2016 10/31/2018 Inactive carvedilol 12.5 mg tablet RxNorm: 347286 TAKE ONE TABLET BY MOUTH TWICE A DAY 08/05/2016 01/01/2017 Inactive carvedilol 12.5 mg tablet RxNorm: 114630 1 Tablet(s) PO BID 08/04/2016 10/31/2018 Inactive cyanocobalamin (vit B-12) 1,000 mcg/mL injection solution RxNorm: 522563 Milliliter(s) Inj 07/29/2016 07/29/2016 Inactive Lantus Solostar 100 unit/mL (3 mL) subcutaneous insulin pen RxNorm: 790584 30 Unit(s) SQ QHS 07/15/2016 05/18/2017 Inactive Humulin 70/30 100 unit/mL subcutaneous suspension RxNorm: 169792 18 Unit(s) SQ QA 07/15/2016 12/21/2016 Inactive losartan 100 mg tablet RxNorm: 449936 TAKE ONE TABLET BY MOUTH DAILY 07/08/2016 06/02/2017 Inactive terazosin 2 mg capsule RxNorm: 627100 TAKE ONE CAPSULE BY MOUTH DAILY 06/10/2016 11/06/2016 Inactive cyanocobalamin (vit B-12) 1,000 mcg/mL injection solution RxNorm: 210296 1 Milliliter(s) Inj 06/03/2016 06/03/2016 Inactive Humulin 70/30 100 unit/mL subcutaneous suspension RxNorm: 604773 Unit(s) INJECT 10 UNITS UNDER THE SKIN 06/01/2016 07/14/2016 Inactive Request already responded to by other means (e.g. phone or fax) Humulin 70/30 100 unit/mL subcutaneous suspension RxNorm: 010022 INJECT 10 UNITS UNDER THE SKIN BEFORE MEALS 06/01/2016 05/31/2016 Inactive Request already responded to by other means (e.g. phone or fax) Lantus Solostar 100 unit/mL (3 mL) subcutaneous insulin pen RxNorm: 197046 35 Unit(s) SQ Q 05/26/2016 07/14/2016 Inactive Humulin 70/30 100 unit/mL subcutaneous suspension RxNorm: 195209 10 Unit(s) SQ QA 05/24/2016 10/02/2016 Inactive Humulin 70/30 100 unit/mL subcutaneous suspension RxNorm: 379335 21 Unit(s) SQ [facility] 05/24/2016 05/23/2016 Inactive Lantus Solostar 100 unit/mL (3 mL) subcutaneous insulin pen RxNorm: 358669 32 Unit(s) SQ Q 04/22/2016 05/25/2016 Inactive Humulin 70/30 100 unit/mL subcutaneous suspension RxNorm: 706057 21 Unit(s) SQ QA 04/22/2016 05/24/2016 Inactive with breakfast hydrochlorothiazide 25 mg tablet RxNorm: 818124 TAKE ONE TABLET BY MOUTH DAILY 02/04/2016 02/16/2016 Inactive terazosin 2 mg capsule RxNorm: 444150 Capsule(s) TAKE ONE CAPSULE BY MOUTH DAILY. 12/01/2015 05/28/2016 Inactive Humulin 70/30 100 unit/mL subcutaneous suspension RxNorm: 246851 INJECT 10 UNITS UNDER THE SKIN BEFORE MEALS 11/06/2015 03/16/2016 Inactive hydrochlorothiazide 25 mg tablet RxNorm: 539882 1 Tablet(s) PO daily 10/06/2015 02/02/2016 Inactive cyanocobalamin (vit B-12) 1,000 mcg/mL injection solution RxNorm: 420447 Milliliter(s) Inj 09/15/2015 09/15/2015 Inactive Humulin 70/30 100 unit/mL subcutaneous suspension RxNorm: 452612 INJECT 10 UNITS UNDER THE SKIN BEFORE MEALS 09/08/2015 10/10/2015 Inactive cyanocobalamin (vit B-12) 1,000 mcg/mL injection solution RxNorm: 305021 Milliliter(s) Inj 09/08/2015 09/08/2015 Inactive terazosin 2 mg capsule RxNorm: 217029 TAKE ONE CAPSULE BY MOUTH DAILY. DISCONTINUE 5 MG CAPSULES 09/01/2015 11/29/2015 Inactive cyanocobalamin (vit B-12) 1,000 mcg/mL injection solution RxNorm: 222548 Milliliter(s) Inj 09/01/2015 09/01/2015 Inactive cyanocobalamin (vit B-12) 1,000 mcg/mL injection solution RxNorm: 454559 Milliliter(s) Inj 08/25/2015 08/25/2015 Inactive levothyroxine 112 mcg tablet RxNorm: 532371 1 Tablet(s) PO daily 08/06/2015 02/14/2017 Inactive Lantus Solostar 100 unit/mL (3 mL) subcutaneous insulin pen RxNorm: 662504 35 Unit(s) SQ QHS 08/06/2015 04/21/2016 Inactive Humulin 70/30 100 unit/mL subcutaneous suspension RxNorm: 179789 20 Unit(s) SQ AC 08/05/2015 04/21/2016 Inactive with breakfast carvedilol 12.5 mg tablet RxNorm: 003369 1 Tablet(s) PO BID 08/05/2015 01/31/2016 Inactive Humulin 70/30 100 unit/mL subcutaneous suspension RxNorm: 133815 10 Unit(s) SQ AC 07/22/2015 08/04/2015 Inactive losartan 100 mg tablet RxNorm: 326887 TAKE ONE TABLET BY MOUTH DAILY 06/25/2015 06/18/2016 Inactive Lantus Solostar 100 unit/mL (3 mL) subcutaneous insulin pen RxNorm: 559598 30 Unit(s) SQ QHS 06/18/2015 08/05/2015 Inactive terazosin 2 mg capsule RxNorm: 287917 1 Capsule(s) PO daily 04/14/2015 08/11/2015 Inactive DC the 5mg order terazosin 2 mg capsule RxNorm: 544693 1 Capsule(s) PO daily 04/14/2015 04/13/2015 Inactive Synthroid 25 mcg tablet RxNorm: 301464 1 Tablet(s) PO daily 04/11/2015 02/14/2017 Inactive Synthroid 25 mcg tablet RxNorm: 931421 1 Tablet(s) PO daily 04/11/2015 04/10/2015 Inactive Lantus Solostar 100 unit/mL (3 mL) subcutaneous insulin pen RxNorm: 569103 30 Unit(s) SQ QHS 04/04/2015 06/17/2015 Inactive terazosin 5 mg tablet RxNorm: 087717 1 Tablet(s) PO daily 04/03/2015 04/13/2015 Inactive Lantus Solostar 100 unit/mL (3 mL) subcutaneous insulin pen RxNorm: 316491 25 Unit(s) SQ QHS 01/08/2015 04/03/2015 Inactive carvedilol 25 mg tablet RxNorm: 162755 1 Tablet(s) PO BID 01/02/2015 01/31/2015 Inactive terazosin 5 mg tablet RxNorm: 755255 1 Tablet(s) PO daily 01/02/2015 01/01/2015 Inactive levothyroxine 125 mcg tablet RxNorm: 720463 1 Tablet(s) PO daily 01/02/2015 01/31/2015 Inactive terazosin 5 mg tablet RxNorm: 843850 1/2 Tablet(s) PO daily 01/02/2015 01/31/2015 Inactive losartan 100 mg tablet RxNorm: 250824 1 Tablet(s) PO daily 12/24/2014 04/22/2015 Inactive losartan 100 mg tablet RxNorm: 196369 1 Tablet(s) PO daily 12/24/2014 12/23/2014 Inactive Contour Test Strips RxNorm: Miscellaneous test blood sugars BID 12/06/2014 12/05/2014 Inactive dx 250.00 Contour Test Strips RxNorm: Miscellaneous test blood sugars BID or UD 12/06/2014 06/23/2015 Inactive dx 250.00 [SAVINGS FOR NON-COVERED DRUGS -- [id number], PCN: [id number], Group: [id number], ID# [id number], Questions: . THIS IS NOT INSURANCE.] folic acid 1 mg tablet RxNorm: 934771 1 Tablet(s) PO QHS No Start Date Active Microlet Lancet RxNorm: Miscellaneous Test BID or Ud No Start Date Active 250.0 aspirin 81 mg tablet,delayed release RxNorm: 836979 1 Tablet(s) PO daily No Start Date Active Stool Softener 100 mg capsule RxNorm: 2880638 1 Capsule(s) PO every other day No Start Date Active folic acid oral RxNorm: 4511 oral No Start Date 05/19/2017 Inactive cyanocobalamin (vit B-12) 100 mcg tablet RxNorm: 150587 1 Tablet(s) PO daily No Start Date 02/14/2017 Inactive hydrochlorothiazide 25 mg tablet RxNorm: 758633 1 Tablet(s) PO daily No Start Date 10/05/2015 Inactive Stool Softener 100 mg capsule RxNorm: 6038440 1 Capsule(s) PO daily No Start Date 05/18/2017 Inactive Humulin 70/30 100 unit/mL subcutaneous suspension RxNorm: 026924 20 Unit(s) SQ QAM No Start Date 07/21/2015 Inactive levothyroxine 100 mcg tablet RxNorm: 782593 1 Tablet(s) PO daily No Start Date 05/10/2018 Inactive Lantus Solostar 100 unit/mL (3 mL) subcutaneous insulin pen RxNorm: 586825 20 Unit(s) SQ QHS No Start Date 01/07/2015 Inactive ferrous sulfate 325 mg (65 mg iron) tablet RxNorm: 010439 1 Tablet(s) PO daily No Start Date 05/18/2017 Inactive Medication Administered Medication Codes Instructions Start Date Status cyanocobalamin (vit B-12) 1,000 mcg/mL injection solution RxNorm: 607477 1Milliliter 01/12/2018 No longer Active cyanocobalamin (vit B-12) 1,000 mcg/mL injection solution RxNorm: 593506 Milliliter 09/15/2017 No longer Active cyanocobalamin (vit B-12) 1,000 mcg/mL injection solution RxNorm: 425745 1Milliliter 08/17/2017 No longer Active cyanocobalamin (vit B-12) 1,000 mcg/mL injection solution RxNorm: 087440 1Milliliter 07/19/2017 No longer Active cyanocobalamin (vit B-12) 1,000 mcg/mL injection solution RxNorm: 297009 1Milliliter 05/19/2017 No longer Active cyanocobalamin (vit B-12) 1,000 mcg/mL injection solution RxNorm: 263425 1Milliliter 04/06/2017 No longer Active cyanocobalamin (vit B-12) 1,000 mcg/mL injection solution RxNorm: 309646 Milliliter 01/04/2017 No longer Active cyanocobalamin (vit B-12) 1,000 mcg/mL injection solution RxNorm: 615040 1Milliliter 12/10/2016 No longer Active cyanocobalamin (vit B-12) 1,000 mcg/mL injection solution RxNorm: 666128 Milliliter 10/13/2016 No longer Active cyanocobalamin (vit B-12) 1,000 mcg/mL injection solution RxNorm: 589388 1Milliliter 09/03/2016 No longer Active cyanocobalamin (vit B-12) 1,000 mcg/mL injection solution RxNorm: 484546 Milliliter 07/29/2016 No longer Active cyanocobalamin (vit B-12) 1,000 mcg/mL injection solution RxNorm: 974733 1Milliliter 06/03/2016 No longer Active cyanocobalamin (vit B-12) 1,000 mcg/mL injection solution RxNorm: 116278 Milliliter 09/15/2015 No longer Active cyanocobalamin (vit B-12) 1,000 mcg/mL injection solution RxNorm: 780135 Milliliter 09/08/2015 No longer Active cyanocobalamin (vit B-12) 1,000 mcg/mL injection solution RxNorm: 767168 Milliliter 09/01/2015 No longer Active cyanocobalamin (vit B-12) 1,000 mcg/mL injection solution RxNorm: 566965 Milliliter 08/25/2015 No longer Active Immunizations Vaccine [...] 29.3 pg 08/15/2018 Cbc With Differential Ord2 [place]% 10.9 % 08/15/2018 Cbc With Differential Ord2 [...] 2.66 K/ul 08/15/2018 Cbc With Differential Ord2 [place] ABS# 0.7 K/ul 08/15/2018 Cbc With Differential Ord2 Eos ABS# 0.2 K/ul 08/15/2018 Cbc With Differential Ord2 Baso ABS# 0.0 K/ul 08/15/2018 Comp Metabolic Jkv696 NA 139 mEq/L 08/15/2018 Comp Metabolic Zhu322 K 4.0 mEq/L 08/15/2018 Comp Metabolic And095 CL 107 mEq/L 08/15/2018 Comp Metabolic Fyy311 CO2 25.0 mEq/L 08/15/2018 Comp Metabolic Oel920 ANION GAP 11 08/15/2018 Comp Metabolic Eyc879 GLUCOSE 142 mg/dL 08/15/2018 Comp Metabolic Tds216 Creat 0.9 mg/dL 08/15/2018 Comp Metabolic Yju724 eGFR 64 ml/min/1.73m2 08/15/2018 Comp Metabolic Nxq112 BUN 22 mg/dL 08/15/2018 Comp Metabolic Wgq338 B/C Ratio 24.4 Ratio 08/15/2018 Comp Metabolic Jfv624 CALCIUM 9.3 mg/dL 08/15/2018 Comp Metabolic Cqr243 ALK PHOS 83 U/L 08/15/2018 Comp Metabolic Ttc143 AST(SGOT) 35 U/L 08/15/2018 Comp Metabolic Mwt839 ALT(SGPT) 19 U/L 08/15/2018 Comp Metabolic Dsn489 BILI T 0.6 mg/dL 08/15/2018 Comp Metabolic Pag979 ALBUMIN 3.7 g/dL 08/15/2018 Comp Metabolic Xft504 TPRO 6.3 g/dL 08/15/2018 Comp Metabolic Rsp085 GLOB 2.6 g/dL 08/15/2018 Comp Metabolic Pet282 A/G Ratio 1.5 Ratio 08/15/2018 Comp Metabolic Zjf231 Osmo 283 mOsmo 08/15/2018 Tsh Ord6 TSH (3rd IS) 2.43 uIU/mL 08/15/2018 %Hba1C Euy593 % HbA1c 56467- 6 7.4 % 08/15/2018 %Hba1C Xti509 Gluc Ave 166 mg/dL 08/15/2018 Free T4 Mdi308 FREE T4 1.21 ng/dL 05/15/2018 Tsh Ord6 TSH (3rd IS) 0.97 uIU/mL 05/15/2018 Comp Metabolic Rta766 NA 142 mEq/L 05/15/2018 Comp Metabolic Vlj753 K 4.0 mEq/L 05/15/2018 Comp Metabolic Zjt831 CL 107 mEq/L 05/15/2018 Comp Metabolic Giz679 CO2 28.0 mEq/L 05/15/2018 Comp Metabolic Yhs854 ANION GAP 11 05/15/2018 Comp Metabolic Msp466 GLUCOSE 211 mg/dL 05/15/2018 Comp Metabolic Nnh366 Creat 0.9 mg/dL 05/15/2018 Comp Metabolic Nss963 eGFR 61 ml/min/1.73m2 05/15/2018 Comp Metabolic Nzk198 BUN 21 mg/dL 05/15/2018 Comp Metabolic Hgq496 B/C Ratio 22.6 Ratio 05/15/2018 Comp Metabolic Ajr763 CALCIUM 9.1 mg/dL 05/15/2018 Comp Metabolic Ruj510 ALK PHOS 85 U/L 05/15/2018 Comp Metabolic Swy706 AST(SGOT) 36 U/L 05/15/2018 Comp Metabolic Iyt890 ALT(SGPT) 19 U/L 05/15/2018 Comp Metabolic Ovu952 BILI T 0.6 mg/dL 05/15/2018 Comp Metabolic Xwk445 ALBUMIN 3.8 g/dL 05/15/2018 Comp Metabolic Nyu835 TPRO 6.2 g/dL 05/15/2018 Comp Metabolic Oft384 GLOB 2.4 g/dL 05/15/2018 Comp Metabolic Plc499 A/G Ratio 1.6 Ratio 05/15/2018 Comp Metabolic Jnt603 Osmo 292 mOsmo 05/15/2018 %Hba1C Lhn971 % HbA1c 81485- 6 7.8 % 05/15/2018 %Hba1C Rhr424 Gluc Ave 177 mg/dL 05/15/2018 Comp Metabolic Ugm770 NA 139 mEq/L 11/28/2017 Comp Metabolic Dcq115 K 4.1 mEq/L 11/28/2017 Comp Metabolic Buh223 CL 105 mEq/L 11/28/2017 Comp Metabolic Lfg107 CO2 26.0 mEq/L 11/28/2017 Comp Metabolic Vnj066 ANION GAP 12 11/28/2017 Comp Metabolic Jnv397 GLUCOSE 132 mg/dL 11/28/2017 Comp Metabolic Shs253 Creat 0.9 mg/dL 11/28/2017 Comp Metabolic Dja513 eGFR 66 ml/min/1.73m2 11/28/2017 Comp Metabolic Uwe744 BUN 17 mg/dL 11/28/2017 Comp Metabolic Lmz278 B/C Ratio 19.5 Ratio 11/28/2017 Comp Metabolic Fzu603 CALCIUM 9.1 mg/dL 11/28/2017 Comp Metabolic Kyf659 ALK PHOS 78 U/L 11/28/2017 Comp Metabolic Mmq146 AST(SGOT) 35 U/L 11/28/2017 Comp Metabolic Vex639 ALT(SGPT) 17 U/L 11/28/2017 Comp Metabolic Wlr467 BILI T 0.6 mg/dL 11/28/2017 Comp Metabolic Zzi938 ALBUMIN 3.9 g/dL 11/28/2017 Comp Metabolic Swh365 TPRO 6.4 g/dL 11/28/2017 Comp Metabolic Ors925 GLOB 2.5 g/dL 11/28/2017 Comp Metabolic Qfn278 A/G Ratio 1.6 Ratio 11/28/2017 Comp Metabolic Vey346 Osmo 281 mOsmo 11/28/2017 Tsh Ord6 TSH (3rd IS) 1.14 uIU/mL 11/28/2017 Free T4 Bup189 FREE T4 1.05 ng/dL 11/28/2017 %Hba1C Hfp616 % HbA1c 49154- 6 7.7 % 11/25/2017 %Hba1C Eif901 Gluc Ave 174 mg/dL 11/25/2017 Cbc With [...] 29.8 pg 11/25/2017 Cbc With Differential Ord2 [place]% 10.2 % 11/25/2017 Cbc With Differential Ord2 [...] 2.56 K/ul 11/25/2017 Cbc With Differential Ord2 [place] ABS# 0.7 K/ul 11/25/2017 Cbc With Differential [...] 30.3 pg 05/19/2017 Cbc With Differential Ord2 [place]% 6.8 % 05/19/2017 Cbc With Differential Ord2 [...] 1.64 K/ul 05/19/2017 Cbc With Differential Ord2 [place] ABS# 0.6 K/ul 05/19/2017 Cbc With Differential Ord2 Eos ABS# 0.2 K/ul 05/19/2017 Cbc With Differential Ord2 Baso ABS# 0.0 K/ul 05/19/2017 B12 Snf291 B12 >1500.00 pg/ml 05/19/2017 Free T4 Lhr333 FREE T4 1.10 ng/dL 05/19/2017 %Hba1C Oqq611 % HbA1c 45874- 6 6.8 % 05/19/2017 %Hba1C Vzd441 Gluc Ave 148 mg/dL 05/19/2017 Tsh Ord6 hTSH II 1.73 uIU/mL 05/19/2017 Comp Metabolic Aqj057 NA 140 mEq/L 05/19/2017 Comp Metabolic Rpp868 K 3.8 mEq/L 05/19/2017 Comp Metabolic Qbn573 CL 108 mEq/L 05/19/2017 Comp Metabolic Axp944 CO2 21.0 mEq/L 05/19/2017 Comp Metabolic Lyr236 ANION GAP 15 05/19/2017 Comp Metabolic Wbg249 GLUCOSE 207 mg/dL 05/19/2017 Comp Metabolic Sng451 Creat 1.0 mg/dL 05/19/2017 Comp Metabolic Kxp505 eGFR 55 ml/min/1.73m2 05/19/2017 Comp Metabolic Lgg521 BUN 21 mg/dL 05/19/2017 Comp Metabolic Soq657 B/C Ratio 20.4 Ratio 05/19/2017 Comp Metabolic Vfh708 CALCIUM 9.1 mg/dL 05/19/2017 Comp Metabolic Wvd354 ALK PHOS 74 U/L 05/19/2017 Comp Metabolic Qgv346 AST(SGOT) 32 U/L 05/19/2017 Comp Metabolic Aic482 ALT(SGPT) 15 U/L 05/19/2017 Comp Metabolic Prl426 BILI T 0.6 mg/dL 05/19/2017 Comp Metabolic Sfa419 ALBUMIN 3.9 g/dL 05/19/2017 Comp Metabolic Dvs195 TPRO 6.2 g/dL 05/19/2017 Comp Metabolic Dac396 GLOB 2.3 g/dL 05/19/2017 Comp Metabolic Nyr562 A/G Ratio 1.6 Ratio 05/19/2017 Comp Metabolic Ohs734 Osmo 288 mOsmo 05/19/2017 Cbc With Differential [...] 29.3 pg 12/10/2016 Cbc With Differential Ord2 [place]% 7.1 % 12/10/2016 Cbc With Differential Ord2 [...] 2.50 K/ul 12/10/2016 Cbc With Differential Ord2 [place] ABS# 0.5 K/ul 12/10/2016 Cbc With Differential Ord2 Eos ABS# 0.1 K/ul 12/10/2016 Cbc With Differential Ord2 Baso ABS# 0.0 K/ul 12/10/2016 B12 Nnd276 B12 222.00 pg/ml 12/10/2016 %Hba1C Jxd797 % HbA1c 28631- 6 7.5 % 11/16/2016 %Hba1C Mkp844 Gluc Ave 169 mg/dL 11/16/2016 Free T4 Qpb522 FREE T4 1.03 ng/dL 11/16/2016 Comp Metabolic Unp473 NA 138 mEq/L 11/16/2016 Comp Metabolic Hve146 K 3.8 mEq/L 11/16/2016 Comp Metabolic Vfr469 CL 103 mEq/L 11/16/2016 Comp Metabolic Vjg346 CO2 26.0 mEq/L 11/16/2016 Comp Metabolic Neb306 ANION GAP 13 11/16/2016 Comp Metabolic Qav757 GLUCOSE 235 mg/dL 11/16/2016 Comp Metabolic Zbf075 Creat 0.9 mg/dL 11/16/2016 Comp Metabolic Vhb084 eGFR 62 ml/min/1.73m2 11/16/2016 Comp Metabolic Jpw131 BUN 20 mg/dL 11/16/2016 Comp Metabolic Lgz197 B/C Ratio 21.7 Ratio 11/16/2016 Comp Metabolic Xfh564 CALCIUM 8.9 mg/dL 11/16/2016 Comp Metabolic Ocj842 ALK PHOS 75 U/L 11/16/2016 Comp Metabolic Kzq654 AST(SGOT) 30 U/L 11/16/2016 Comp Metabolic Jtk131 ALT(SGPT) 13 U/L 11/16/2016 Comp Metabolic Qbl506 BILI T 0.6 mg/dL 11/16/2016 Comp Metabolic Cnh165 ALBUMIN 3.8 g/dL 11/16/2016 Comp Metabolic Wce371 TPRO 6.8 g/dL 11/16/2016 Comp Metabolic Lwe182 GLOB 3.1 g/dL 11/16/2016 Comp Metabolic Ooe427 A/G Ratio 1.2 Ratio 11/16/2016 Comp Metabolic Gym684 Osmo 286 mOsmo 11/16/2016 Tsh Ord6 hTSH II 2.50 uIU/mL 11/16/2016 Tsh Ord6 hTSH II 3.18 uIU/mL 05/21/2016 Lipid Ord30 CHOL 212 mg/dL 05/21/2016 Lipid Ord30 HDL 43.0 mg/dl 05/21/2016 Lipid Ord30 TRIG 164 mg/dL 05/21/2016 Lipid Ord30 LDL 136 mg/dL 05/21/2016 Lipid Ord30 C/HDL 4.9 Ratio 05/21/2016 B12 Aqz225 B12 159.00 pg/ml 05/21/2016 %Hba1C Mzz487 % HbA1c 67316- 6 7.5 % 05/21/2016 %Hba1C Kip224 Gluc Ave 169 mg/dL 05/21/2016 Folate Ord36 Folate >23.80 ng/mL 05/21/2016 Free T4 Zlb311 FREE T4 1.03 ng/dL 05/21/2016 CHEM 14 7223572 AST 33 U/L 03/15/2016 CHEM 14 8222161 ALT 13 U/L 03/15/2016 CHEM 14 5825287 BUN 18 mg/dL 03/15/2016 CHEM 14 5702942 ALBUMIN 3.9 g/dL 03/15/2016 CHEM 14 1469980 CHLORIDE 105 mmol/L 03/15/2016 CHEM 14 3684886 Bili Total 0.4 mg/dL 03/15/2016 CHEM 14 1272802 ALK PHOS 60 U/L 03/15/2016 CHEM 14 7665320 SODIUM 138 mmol/L 03/15/2016 CHEM 14 3240769 CREATININE 0.99 mg/dL 03/15/2016 CHEM 14 5077976 CALCIUM 9.4 mg/dL 03/15/2016 CHEM 14 6614998 POTASSIUM 3.8 mmol/L 03/15/2016 CHEM 14 5082037 TOTAL PROTEIN 6.7 g/dL 03/15/2016 CHEM 14 6261163 GLUCOSE 109 mg/dL 03/15/2016 CHEM 14 1621743 Bicarbonate 27 mmol/L 03/15/2016 CHEM 14 2660161 AGAP 6 mmol/L 03/15/2016 GFR CALC 8771568 GFR Non Afr Amr 54 mL/min 03/15/2016 GFR CALC 8051275 GFR Afr Amr >60 mL/min 03/15/2016 B12 Fhf578 B12 46.00 pg/ml 08/07/2015 Iron Ord72 Iron [...] Ord2 RDW 16.6 % 08/05/2015 Free T4 Phf305 FREE T4 1.33 ng/dL 08/05/2015 Comp Metabolic Oyr466 NA 137 mEq/L 08/05/2015 Comp Metabolic Gxm441 K 4.5 mEq/L 08/05/2015 Comp Metabolic Vnl609 CL 104 mEq/L 08/05/2015 Comp Metabolic Fal064 CO2 26.0 mEq/L 08/05/2015 Comp Metabolic Oen840 ANION GAP 12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
--- OUTSIDE RECORDS SUMMARY | 2019-01-23 08:10 | XMS REPORT | CCD ---
Author Author [facility] Organization [facility] Address [address] [place] [address] Phone Care Team Providers Care Manager Forensic Name Role Phone PP Unavailable CCM Unavailable Summary Purpose Interface Exchange Insurance Providers Payer name Policy type / Coverage type Covered alliance party ID Effective Begin Date Effective End Date [facility] Commercial Insurance [id number] Unknown Family history Runs in the family [...] Start Date Stop Date Status Fill Instructions losartan 100 mg tablet RxNorm: 766782 Tablet(s) TAKE ONE TABLET BY MOUTH DAILY 12/19/2018 12/13/2019 Active Humulin 70/30 U-100 Insulin 100 unit/mL subcutaneous suspension RxNorm: 207783 Unit(s) INJECT 18 UNITS UNDER THE SKIN BEFORE MEALS 12/12/2018 04/22/2019 Active Lantus Solostar U-100 Insulin 100 unit/mL (3 mL) subcutaneous pen RxNorm: 364457 Unit(s) [id number] UNITS UNDER THE SKIN EVERY NIGHT AT BEDTIME 12/12/2018 01/14/2021 Active Humulin 70/30 U-100 Insulin 100 unit/mL subcutaneous suspension RxNorm: 765707 INJECT 18 UNITS UNDER THE SKIN EVERY MORNING 12/05/2018 03/24/2019 Active silver sulfadiazine 1 % topical cream RxNorm: 873860 1 Application TOP BID 11/23/2018 No Stop Date Active Keflex 500 mg capsule RxNorm: 061909 1 Capsule(s) PO TID 11/23/2018 11/29/2018 Inactive carvedilol 12.5 mg tablet RxNorm: 075095 Tablet(s) TAKE ONE TABLET BY MOUTH TWICE A DAY 11/01/2018 10/26/2019 Active terazosin 2 mg capsule RxNorm: 386811 Capsule(s) TAKE ONE CAPSULE BY MOUTH DAILY 09/06/2018 08/31/2019 Active levothyroxine 100 mcg tablet RxNorm: 513482 TAKE ONE TABLET BY MOUTH DAILY 09/06/2018 02/02/2019 Active Contour Test Strips RxNorm: TEST BLOOD SUGAR TWO TIMES A DAY E11.65 08/30/2018 03/01/2020 Active Lantus Solostar U-100 Insulin 100 unit/mL (3 mL) subcutaneous pen RxNorm: 299945 INJECT 35 UNITS UNDER THE SKIN EVERY NIGHT AT BEDTIME 08/22/2018 12/11/2018 Inactive carvedilol 12.5 mg tablet RxNorm: 739737 TAKE ONE TABLET BY MOUTH TWICE A DAY 08/07/2018 10/31/2018 Inactive Humulin 70/30 U-100 Insulin 100 unit/mL subcutaneous suspension RxNorm: 177998 INJECT 18 UNITS UNDER THE SKIN EVERY MORNING 06/20/2018 06/19/2018 Inactive Humulin 70/30 U-100 Insulin 100 unit/mL subcutaneous suspension RxNorm: 624024 Unit(s) INJECT 18 UNITS UNDER THE SKIN EVERY MORNING 06/20/2018 09/11/2018 Inactive terazosin 2 mg capsule RxNorm: 407804 TAKE ONE CAPSULE BY MOUTH DAILY 06/09/2018 09/05/2018 Inactive Humulin 70/30 U-100 Insulin 100 unit/mL subcutaneous suspension RxNorm: 012327 18 Unit(s) SQ QAM 05/15/2018 06/19/2018 Inactive levothyroxine 100 mcg tablet RxNorm: 587184 1 Tablet(s) PO daily 05/11/2018 09/05/2018 Inactive carvedilol 12.5 mg tablet RxNorm: 908799 TAKE ONE TABLET BY MOUTH TWICE A DAY 05/05/2018 08/06/2018 Inactive losartan 100 mg tablet RxNorm: 326137 TAKE ONE TABLET BY MOUTH DAILY 03/24/2018 12/18/2018 Inactive terazosin 2 mg capsule RxNorm: 038937 TAKE ONE CAPSULE BY MOUTH DAILY 03/07/2018 06/08/2018 Inactive cyanocobalamin (vit B-12) 1,000 mcg/mL injection solution RxNorm: 674870 1 Milliliter(s) Inj 01/12/2018 01/12/2018 Inactive Lantus Solostar U-100 Insulin 100 unit/mL (3 mL) subcutaneous pen RxNorm: 378547 Unit(s) INJECT 24 UNITS UNDER THE SKIN EVERY NIGHT AT BEDTIME 01/12/2018 08/21/2018 Inactive Humulin 70/30 U-100 Insulin 100 unit/mL subcutaneous suspension RxNorm: 119643 INJECT 18 UNITS UNDER THE SKIN EVERY MORNING 11/14/2017 03/05/2018 Inactive carvedilol 12.5 mg tablet RxNorm: 773083 TAKE ONE TABLET BY MOUTH TWICE A DAY 11/07/2017 05/04/2018 Inactive cyanocobalamin (vit B-12) 1,000 mcg/mL injection solution RxNorm: 284117 Milliliter(s) Inj 09/15/2017 09/15/2017 Inactive terazosin 2 mg capsule RxNorm: 659372 Capsule(s) TAKE ONE CAPSULE BY MOUTH DAILY 09/07/2017 03/05/2018 Inactive Lantus Solostar 100 unit/mL (3 mL) subcutaneous insulin pen RxNorm: 780730 INJECT 35 UNITS UNDER THE SKIN EVERY NIGHT AT BEDTIME 08/29/2017 01/11/2018 Inactive One Touch Test strips RxNorm: 1 test Miscellaneous BID 08/22/2017 08/16/2018 Inactive Contour Test Strips RxNorm: TEST BLOOD SUGAR TWO TIMES A DAY E11.65 08/22/2017 08/29/2018 Inactive Tamiflu 75 mg capsule RxNorm: 511086 1 Capsule(s) PO daily 08/17/2017 08/16/2017 Inactive Tamiflu 75 mg capsule RxNorm: 599238 1 Capsule(s) PO daily 08/17/2017 08/26/2017 Inactive cyanocobalamin (vit B-12) 1,000 mcg/mL injection solution RxNorm: 887894 1 Milliliter(s) Inj 08/17/2017 08/17/2017 Inactive carvedilol 12.5 mg tablet RxNorm: 130250 TAKE ONE TABLET BY MOUTH TWICE A DAY 08/10/2017 11/06/2017 Inactive cyanocobalamin (vit B-12) 1,000 mcg/mL injection solution RxNorm: 107132 1 Milliliter(s) Inj 07/19/2017 07/19/2017 Inactive Humulin 70/30 100 unit/mL subcutaneous suspension RxNorm: 327464 14 Unit(s) SQ QAM 07/06/2017 05/14/2018 Inactive Lantus Solostar 100 unit/mL (3 mL) subcutaneous insulin pen RxNorm: 399861 26 Unit(s) SQ QHS 07/06/2017 08/28/2017 Inactive losartan 100 mg tablet RxNorm: 957613 TAKE ONE TABLET BY MOUTH DAILY 06/07/2017 03/23/2018 Inactive Lantus Solostar 100 unit/mL (3 mL) subcutaneous insulin pen RxNorm: 336370 28 Unit(s) SQ QHS 05/19/2017 07/05/2017 Inactive cyanocobalamin (vit B-12) 1,000 mcg/mL injection solution RxNorm: 572839 1 Milliliter(s) Inj 05/19/2017 05/19/2017 Inactive terazosin 2 mg capsule RxNorm: 749088 TAKE ONE CAPSULE BY MOUTH DAILY 05/16/2017 09/06/2017 Inactive cyanocobalamin (vit B-12) 1,000 mcg/mL injection solution RxNorm: 241092 1 Milliliter(s) Inj 04/06/2017 04/06/2017 Inactive cyanocobalamin (vit B-12) 1,000 mcg/mL injection solution RxNorm: 799674 Milliliter(s) Inj 01/04/2017 01/04/2017 Inactive Humulin 70/30 U-100 Insulin 100 unit/mL subcutaneous suspension RxNorm: 674133 18 Unit(s) SQ QAM 12/22/2016 06/04/2017 Inactive cyanocobalamin (vit B-12) 1,000 mcg/mL injection solution RxNorm: 327563 1 Milliliter(s) Inj 12/10/2016 12/10/2016 Inactive Zithromax Z-Jose 250 mg tablet RxNorm: 093284 1 Tablet(s) PO UD 11/16/2016 11/20/2016 Inactive terazosin 2 mg capsule RxNorm: 900088 TAKE ONE CAPSULE BY MOUTH DAILY 11/08/2016 05/06/2017 Inactive Lantus Solostar 100 unit/mL (3 mL) subcutaneous insulin pen RxNorm: 957171 INJECT 35 UNITS UNDER THE SKIN EVERY NIGHT AT BEDTIME 10/22/2016 07/18/2017 Inactive cyanocobalamin (vit B-12) 1,000 mcg/mL injection solution RxNorm: 548058 Milliliter(s) Inj 10/13/2016 10/13/2016 Inactive cyanocobalamin (vit B-12) 1,000 mcg/mL injection solution RxNorm: 267434 1 Milliliter(s) Inj 09/03/2016 09/03/2016 Inactive Contour Test Strips RxNorm: TEST BLOOD SUGAR TWO TIMES A DAY E11.65 08/19/2016 08/21/2017 Inactive carvedilol 12.5 mg tablet RxNorm: 636526 TAKE ONE TABLET BY MOUTH TWICE A DAY 08/05/2016 10/31/2018 Inactive carvedilol 12.5 mg tablet RxNorm: 643899 TAKE ONE TABLET BY MOUTH TWICE A DAY 08/05/2016 01/01/2017 Inactive carvedilol 12.5 mg tablet RxNorm: 299511 1 Tablet(s) PO BID 08/04/2016 10/31/2018 Inactive cyanocobalamin (vit B-12) 1,000 mcg/mL injection solution RxNorm: 365074 Milliliter(s) Inj 07/29/2016 07/29/2016 Inactive Lantus Solostar 100 unit/mL (3 mL) subcutaneous insulin pen RxNorm: 147018 30 Unit(s) SQ QHS 07/15/2016 05/18/2017 Inactive Humulin 70/30 100 unit/mL subcutaneous suspension RxNorm: 623006 18 Unit(s) SQ QAM 07/15/2016 12/21/2016 Inactive losartan 100 mg tablet RxNorm: 031789 TAKE ONE TABLET BY MOUTH DAILY 07/08/2016 06/02/2017 Inactive terazosin 2 mg capsule RxNorm: 547610 TAKE ONE CAPSULE BY MOUTH DAILY 06/10/2016 11/06/2016 Inactive cyanocobalamin (vit B-12) 1,000 mcg/mL injection solution RxNorm: 092611 1 Milliliter(s) Inj 06/03/2016 06/03/2016 Inactive Humulin 70/30 100 unit/mL subcutaneous suspension RxNorm: 998336 Unit(s) INJECT 10 UNITS UNDER THE SKIN 06/01/2016 07/14/2016 Inactive Request already responded to by other means (e.g. phone or fax) Humulin 70/30 100 unit/mL subcutaneous suspension RxNorm: 166591 INJECT 10 UNITS UNDER THE SKIN BEFORE MEALS 06/01/2016 05/31/2016 Inactive Request already responded to by other means (e.g. phone or fax) Lantus Solostar 100 unit/mL (3 mL) subcutaneous insulin pen RxNorm: 626933 35 Unit(s) SQ Q 05/26/2016 07/14/2016 Inactive Humulin 70/30 100 unit/mL subcutaneous suspension RxNorm: 664436 10 Unit(s) SQ [facility] 05/24/2016 10/02/2016 Inactive Humulin 70/30 100 unit/mL subcutaneous suspension RxNorm: 571366 21 Unit(s) SQ QA 05/24/2016 05/23/2016 Inactive Lantus Solostar 100 unit/mL (3 mL) subcutaneous insulin pen RxNorm: 311398 32 Unit(s) SQ [facility] 04/22/2016 05/25/2016 Inactive Humulin 70/30 100 unit/mL subcutaneous suspension RxNorm: 227140 21 Unit(s) SQ [facility] 04/22/2016 05/24/2016 Inactive with breakfast hydrochlorothiazide 25 mg tablet RxNorm: 987350 TAKE ONE TABLET BY MOUTH DAILY 02/04/2016 02/16/2016 Inactive terazosin 2 mg capsule RxNorm: 269759 Capsule(s) TAKE ONE CAPSULE BY MOUTH DAILY. 12/01/2015 05/28/2016 Inactive Humulin 70/30 100 unit/mL subcutaneous suspension RxNorm: 292133 INJECT 10 UNITS UNDER THE SKIN BEFORE MEALS 11/06/2015 03/16/2016 Inactive hydrochlorothiazide 25 mg tablet RxNorm: 392802 1 Tablet(s) PO daily 10/06/2015 02/02/2016 Inactive cyanocobalamin (vit B-12) 1,000 mcg/mL injection solution RxNorm: 467805 Milliliter(s) Inj 09/15/2015 09/15/2015 Inactive Humulin 70/30 100 unit/mL subcutaneous suspension RxNorm: 749865 INJECT 10 UNITS UNDER THE SKIN BEFORE MEALS 09/08/2015 10/10/2015 Inactive cyanocobalamin (vit B-12) 1,000 mcg/mL injection solution RxNorm: 719970 Milliliter(s) Inj 09/08/2015 09/08/2015 Inactive terazosin 2 mg capsule RxNorm: 073407 TAKE ONE CAPSULE BY MOUTH DAILY. DISCONTINUE 5 MG CAPSULES 09/01/2015 11/29/2015 Inactive cyanocobalamin (vit B-12) 1,000 mcg/mL injection solution RxNorm: 370123 Milliliter(s) Inj 09/01/2015 09/01/2015 Inactive cyanocobalamin (vit B-12) 1,000 mcg/mL injection solution RxNorm: 605815 Milliliter(s) Inj 08/25/2015 08/25/2015 Inactive levothyroxine 112 mcg tablet RxNorm: 726157 1 Tablet(s) PO daily 08/06/2015 02/14/2017 Inactive Lantus Solostar 100 unit/mL (3 mL) subcutaneous insulin pen RxNorm: 274784 35 Unit(s) SQ QHS 08/06/2015 04/21/2016 Inactive Humulin 70/30 100 unit/mL subcutaneous suspension RxNorm: 121855 20 Unit(s) SQ AC 08/05/2015 04/21/2016 Inactive with breakfast carvedilol 12.5 mg tablet RxNorm: 176288 1 Tablet(s) PO BID 08/05/2015 01/31/2016 Inactive Humulin 70/30 100 unit/mL subcutaneous suspension RxNorm: 114841 10 Unit(s) SQ AC 07/22/2015 08/04/2015 Inactive losartan 100 mg tablet RxNorm: 172975 TAKE ONE TABLET BY MOUTH DAILY 06/25/2015 06/18/2016 Inactive Lantus Solostar 100 unit/mL (3 mL) subcutaneous insulin pen RxNorm: 163677 30 Unit(s) SQ QHS 06/18/2015 08/05/2015 Inactive terazosin 2 mg capsule RxNorm: 996953 1 Capsule(s) PO daily 04/14/2015 08/11/2015 Inactive DC the 5mg order terazosin 2 mg capsule RxNorm: 144314 1 Capsule(s) PO daily 04/14/2015 04/13/2015 Inactive Synthroid 25 mcg tablet RxNorm: 427835 1 Tablet(s) PO daily 04/11/2015 02/14/2017 Inactive Synthroid 25 mcg tablet RxNorm: 088659 1 Tablet(s) PO daily 04/11/2015 04/10/2015 Inactive Lantus Solostar 100 unit/mL (3 mL) subcutaneous insulin pen RxNorm: 643756 30 Unit(s) SQ QHS 04/04/2015 06/17/2015 Inactive terazosin 5 mg tablet RxNorm: 447837 1 Tablet(s) PO daily 04/03/2015 04/13/2015 Inactive Lantus Solostar 100 unit/mL (3 mL) subcutaneous insulin pen RxNorm: 879942 25 Unit(s) SQ QHS 01/08/2015 04/03/2015 Inactive carvedilol 25 mg tablet RxNorm: 187332 1 Tablet(s) PO BID 01/02/2015 01/31/2015 Inactive terazosin 5 mg tablet RxNorm: 963532 1 Tablet(s) PO daily 01/02/2015 01/01/2015 Inactive levothyroxine 125 mcg tablet RxNorm: 487519 1 Tablet(s) PO daily 01/02/2015 01/31/2015 Inactive terazosin 5 mg tablet RxNorm: 133473 1/2 Tablet(s) PO daily 01/02/2015 01/31/2015 Inactive losartan 100 mg tablet RxNorm: 856725 1 Tablet(s) PO daily 12/24/2014 04/22/2015 Inactive losartan 100 mg tablet RxNorm: 593131 1 Tablet(s) PO daily 12/24/2014 12/23/2014 Inactive Contour Test Strips RxNorm: Miscellaneous test blood sugars BID 12/06/2014 12/05/2014 Inactive dx 250.00 Contour Test Strips RxNorm: Miscellaneous test blood sugars BID or UD 12/06/2014 06/23/2015 Inactive dx 250.00 [SAVINGS FOR NON-COVERED DRUGS -- [id number], PCN: [id number], Group: [id number], ID# [id number], Questions: . THIS IS NOT INSURANCE.] folic acid 1 mg tablet RxNorm: 938216 1 Tablet(s) PO QHS No Start Date Active Microlet Lancet RxNorm: Miscellaneous Test BID or Ud No Start Date Active 250.0 aspirin 81 mg tablet,delayed release RxNorm: 090053 1 Tablet(s) PO daily No Start Date Active Stool Softener 100 mg capsule RxNorm: 7919609 1 Capsule(s) PO every other day No Start Date Active folic acid oral RxNorm: 4511 oral No Start Date 05/19/2017 Inactive cyanocobalamin (vit B-12) 100 mcg tablet RxNorm: 385903 1 Tablet(s) PO daily No Start Date 02/14/2017 Inactive hydrochlorothiazide 25 mg tablet RxNorm: 131072 1 Tablet(s) PO daily No Start Date 10/05/2015 Inactive Stool Softener 100 mg capsule RxNorm: 2532601 1 Capsule(s) PO daily No Start Date 05/18/2017 Inactive Humulin 70/30 100 unit/mL subcutaneous suspension RxNorm: 853925 20 Unit(s) SQ QAM No Start Date 07/21/2015 Inactive levothyroxine 100 mcg tablet RxNorm: 190152 1 Tablet(s) PO daily No Start Date 05/10/2018 Inactive Lantus Solostar 100 unit/mL (3 mL) subcutaneous insulin pen RxNorm: 348893 20 Unit(s) SQ QHS No Start Date 01/07/2015 Inactive ferrous sulfate 325 mg (65 mg iron) tablet RxNorm: 462353 1 Tablet(s) PO daily No Start Date 05/18/2017 Inactive Medication Administered Medication Codes Instructions Start Date Status cyanocobalamin (vit B-12) 1,000 mcg/mL injection solution RxNorm: 326399 1Milliliter 01/12/2018 No longer Active cyanocobalamin (vit B-12) 1,000 mcg/mL injection solution RxNorm: 078037 Milliliter 09/15/2017 No longer Active cyanocobalamin (vit B-12) 1,000 mcg/mL injection solution RxNorm: 875137 1Milliliter 08/17/2017 No longer Active cyanocobalamin (vit B-12) 1,000 mcg/mL injection solution RxNorm: 995629 1Milliliter 07/19/2017 No longer Active cyanocobalamin (vit B-12) 1,000 mcg/mL injection solution RxNorm: 341925 1Milliliter 05/19/2017 No longer Active cyanocobalamin (vit B-12) 1,000 mcg/mL injection solution RxNorm: 762668 1Milliliter 04/06/2017 No longer Active cyanocobalamin (vit B-12) 1,000 mcg/mL injection solution RxNorm: 088945 Milliliter 01/04/2017 No longer Active cyanocobalamin (vit B-12) 1,000 mcg/mL injection solution RxNorm: 981383 1Milliliter 12/10/2016 No longer Active cyanocobalamin (vit B-12) 1,000 mcg/mL injection solution RxNorm: 304796 Milliliter 10/13/2016 No longer Active cyanocobalamin (vit B-12) 1,000 mcg/mL injection solution RxNorm: 256923 1Milliliter 09/03/2016 No longer Active cyanocobalamin (vit B-12) 1,000 mcg/mL injection solution RxNorm: 847362 Milliliter 07/29/2016 No longer Active cyanocobalamin (vit B-12) 1,000 mcg/mL injection solution RxNorm: 901844 1Milliliter 06/03/2016 No longer Active cyanocobalamin (vit B-12) 1,000 mcg/mL injection solution RxNorm: 149138 Milliliter 09/15/2015 No longer Active cyanocobalamin (vit B-12) 1,000 mcg/mL injection solution RxNorm: 117045 Milliliter 09/08/2015 No longer Active cyanocobalamin (vit B-12) 1,000 mcg/mL injection solution RxNorm: 837571 Milliliter 09/01/2015 No longer Active cyanocobalamin (vit B-12) 1,000 mcg/mL injection solution RxNorm: 913582 Milliliter 08/25/2015 No longer Active Immunizations Vaccine [...] DIABETES TYPE II ICD-9: 250.00 04/03/2015 Impacted dougn ICD-9: 380.4 01/02/2015 Reason For Visit Reason [...] 29.3 pg 08/15/2018 Cbc With Differential Ord2 [place]% 10.9 % 08/15/2018 Cbc With Differential Ord2 [...] 2.66 K/ul 08/15/2018 Cbc With Differential Ord2 [place] ABS# 0.7 K/ul 08/15/2018 Cbc With Differential Ord2 Eos ABS# 0.2 K/ul 08/15/2018 Cbc With Differential Ord2 Baso ABS# 0.0 K/ul 08/15/2018 Comp Metabolic Lgr590 NA 139 mEq/L 08/15/2018 Comp Metabolic Qxo439 K 4.0 mEq/L 08/15/2018 Comp Metabolic Lkt110 CL 107 mEq/L 08/15/2018 Comp Metabolic Hro986 CO2 25.0 mEq/L 08/15/2018 Comp Metabolic Les639 ANION GAP 11 08/15/2018 Comp Metabolic Imw833 GLUCOSE 142 mg/dL 08/15/2018 Comp Metabolic Vvy259 Creat 0.9 mg/dL 08/15/2018 Comp Metabolic Cga515 eGFR 64 ml/min/1.73m2 08/15/2018 Comp Metabolic Hkh366 BUN 22 mg/dL 08/15/2018 Comp Metabolic Cew845 B/C Ratio 24.4 Ratio 08/15/2018 Comp Metabolic Ziz494 CALCIUM 9.3 mg/dL 08/15/2018 Comp Metabolic Nlj943 ALK PHOS 83 U/L 08/15/2018 Comp Metabolic Wno042 AST(SGOT) 35 U/L 08/15/2018 Comp Metabolic Joy703 ALT(SGPT) 19 U/L 08/15/2018 Comp Metabolic Tyf572 BILI T 0.6 mg/dL 08/15/2018 Comp Metabolic Cjg064 ALBUMIN 3.7 g/dL 08/15/2018 Comp Metabolic Bne130 TPRO 6.3 g/dL 08/15/2018 Comp Metabolic Lut064 GLOB 2.6 g/dL 08/15/2018 Comp Metabolic Jsy477 A/G Ratio 1.5 Ratio 08/15/2018 Comp Metabolic Dsc868 Osmo 283 mOsmo 08/15/2018 Tsh Ord6 TSH (3rd IS) 2.43 uIU/mL 08/15/2018 %Hba1C Rma742 % HbA1c 26365- 6 7.4 % 08/15/2018 %Hba1C Zxk943 Gluc Ave 166 mg/dL 08/15/2018 Free T4 Owe162 FREE T4 1.21 ng/dL 05/15/2018 Tsh Ord6 TSH (3rd IS) 0.97 uIU/mL 05/15/2018 Comp Metabolic Qyb189 NA 142 mEq/L 05/15/2018 Comp Metabolic Jau184 K 4.0 mEq/L 05/15/2018 Comp Metabolic Whk688 CL 107 mEq/L 05/15/2018 Comp Metabolic Jaw300 CO2 28.0 mEq/L 05/15/2018 Comp Metabolic Ybd293 ANION GAP 11 05/15/2018 Comp Metabolic Ifu643 GLUCOSE 211 mg/dL 05/15/2018 Comp Metabolic Oyy264 Creat 0.9 mg/dL 05/15/2018 Comp Metabolic Ddf620 eGFR 61 ml/min/1.73m2 05/15/2018 Comp Metabolic Pml973 BUN 21 mg/dL 05/15/2018 Comp Metabolic Yti095 B/C Ratio 22.6 Ratio 05/15/2018 Comp Metabolic Mkc438 CALCIUM 9.1 mg/dL 05/15/2018 Comp Metabolic Rgg980 ALK PHOS 85 U/L 05/15/2018 Comp Metabolic Xri557 AST(SGOT) 36 U/L 05/15/2018 Comp Metabolic Kgj611 ALT(SGPT) 19 U/L 05/15/2018 Comp Metabolic Yyd657 BILI T 0.6 mg/dL 05/15/2018 Comp Metabolic Wts033 ALBUMIN 3.8 g/dL 05/15/2018 Comp Metabolic Hmm028 TPRO 6.2 g/dL 05/15/2018 Comp Metabolic Cyq949 GLOB 2.4 g/dL 05/15/2018 Comp Metabolic Bqr600 A/G Ratio 1.6 Ratio 05/15/2018 Comp Metabolic Dbb217 Osmo 292 mOsmo 05/15/2018 %Hba1C Twa164 % HbA1c 40687- 6 7.8 % 05/15/2018 %Hba1C Get168 Gluc Ave 177 mg/dL 05/15/2018 Comp Metabolic Stt603 NA 139 mEq/L 11/28/2017 Comp Metabolic Qxb557 K 4.1 mEq/L 11/28/2017 Comp Metabolic Qes148 CL 105 mEq/L 11/28/2017 Comp Metabolic Dbj191 CO2 26.0 mEq/L 11/28/2017 Comp Metabolic Eva649 ANION GAP 12 11/28/2017 Comp Metabolic Vqy177 GLUCOSE 132 mg/dL 11/28/2017 Comp Metabolic Qgp742 Creat 0.9 mg/dL 11/28/2017 Comp Metabolic Wxc297 eGFR 66 ml/min/1.73m2 11/28/2017 Comp Metabolic Jep448 BUN 17 mg/dL 11/28/2017 Comp Metabolic Mmk727 B/C Ratio 19.5 Ratio 11/28/2017 Comp Metabolic Inw443 CALCIUM 9.1 mg/dL 11/28/2017 Comp Metabolic Uxy024 ALK PHOS 78 U/L 11/28/2017 Comp Metabolic Zbe453 AST(SGOT) 35 U/L 11/28/2017 Comp Metabolic Jyl007 ALT(SGPT) 17 U/L 11/28/2017 Comp Metabolic Cmb910 BILI T 0.6 mg/dL 11/28/2017 Comp Metabolic Nvj960 ALBUMIN 3.9 g/dL 11/28/2017 Comp Metabolic Wnl528 TPRO 6.4 g/dL 11/28/2017 Comp Metabolic Mhc145 GLOB 2.5 g/dL 11/28/2017 Comp Metabolic Hrg227 A/G Ratio 1.6 Ratio 11/28/2017 Comp Metabolic Chz499 Osmo 281 mOsmo 11/28/2017 Tsh Ord6 TSH (3rd IS) 1.14 uIU/mL 11/28/2017 Free T4 Nud319 FREE T4 1.05 ng/dL 11/28/2017 %Hba1C Glt826 % HbA1c 28632- 6 7.7 % 11/25/2017 %Hba1C Iaa985 Gluc Ave 174 mg/dL 11/25/2017 Cbc With [...] 29.8 pg 11/25/2017 Cbc With Differential Ord2 [place]% 10.2 % 11/25/2017 Cbc With Differential Ord2 [...] 2.56 K/ul 11/25/2017 Cbc With Differential Ord2 [place] ABS# 0.7 K/ul 11/25/2017 Cbc With Differential [...] 30.3 pg 05/19/2017 Cbc With Differential Ord2 [place]% 6.8 % 05/19/2017 Cbc With Differential Ord2 [...] 1.64 K/ul 05/19/2017 Cbc With Differential Ord2 [place] ABS# 0.6 K/ul 05/19/2017 Cbc With Differential Ord2 Eos ABS# 0.2 K/ul 05/19/2017 Cbc With Differential Ord2 Baso ABS# 0.0 K/ul 05/19/2017 B12 Whp943 B12 >1500.00 pg/ml 05/19/2017 Free T4 Cau750 FREE T4 1.10 ng/dL 05/19/2017 %Hba1C Mvb746 % HbA1c 69111- 6 6.8 % 05/19/2017 %Hba1C Yfm867 Gluc Ave 148 mg/dL 05/19/2017 Tsh Ord6 hTSH II 1.73 uIU/mL 05/19/2017 Comp Metabolic Rmm835 NA 140 mEq/L 05/19/2017 Comp Metabolic Fjk135 K 3.8 mEq/L 05/19/2017 Comp Metabolic Wca788 CL 108 mEq/L 05/19/2017 Comp Metabolic Twt893 CO2 21.0 mEq/L 05/19/2017 Comp Metabolic Hxg173 ANION GAP 15 05/19/2017 Comp Metabolic Lcs074 GLUCOSE 207 mg/dL 05/19/2017 Comp Metabolic Zjk664 Creat 1.0 mg/dL 05/19/2017 Comp Metabolic Ngq852 eGFR 55 ml/min/1.73m2 05/19/2017 Comp Metabolic Bqh697 BUN 21 mg/dL 05/19/2017 Comp Metabolic Lwh827 B/C Ratio 20.4 Ratio 05/19/2017 Comp Metabolic Gec869 CALCIUM 9.1 mg/dL 05/19/2017 Comp Metabolic Owv235 ALK PHOS 74 U/L 05/19/2017 Comp Metabolic Ohb319 AST(SGOT) 32 U/L 05/19/2017 Comp Metabolic Rrm156 ALT(SGPT) 15 U/L 05/19/2017 Comp Metabolic Zbf824 BILI T 0.6 mg/dL 05/19/2017 Comp Metabolic Vyl657 ALBUMIN 3.9 g/dL 05/19/2017 Comp Metabolic Hcd870 TPRO 6.2 g/dL 05/19/2017 Comp Metabolic Mnb691 GLOB 2.3 g/dL 05/19/2017 Comp Metabolic War484 A/G Ratio 1.6 Ratio 05/19/2017 Comp Metabolic Adx001 Osmo 288 mOsmo 05/19/2017 Cbc With Differential [...] 29.3 pg 12/10/2016 Cbc With Differential Ord2 [place]% 7.1 % 12/10/2016 Cbc With Differential Ord2 [...] 2.50 K/ul 12/10/2016 Cbc With Differential Ord2 [place] ABS# 0.5 K/ul 12/10/2016 Cbc With Differential Ord2 Eos ABS# 0.1 K/ul 12/10/2016 Cbc With Differential Ord2 Baso ABS# 0.0 K/ul 12/10/2016 B12 Hxt637 B12 222.00 pg/ml 12/10/2016 %Hba1C Hol764 % HbA1c 35967- 6 7.5 % 11/16/2016 %Hba1C Lwg770 Gluc Ave 169 mg/dL 11/16/2016 Free T4 Lxz109 FREE T4 1.03 ng/dL 11/16/2016 Comp Metabolic Bge548 NA 138 mEq/L 11/16/2016 Comp Metabolic Wwl963 K 3.8 mEq/L 11/16/2016 Comp Metabolic Ddy859 CL 103 mEq/L 11/16/2016 Comp Metabolic Usd464 CO2 26.0 mEq/L 11/16/2016 Comp Metabolic Ytl045 ANION GAP 13 11/16/2016 Comp Metabolic Ewj819 GLUCOSE 235 mg/dL 11/16/2016 Comp Metabolic Cvw750 Creat 0.9 mg/dL 11/16/2016 Comp Metabolic Itu923 eGFR 62 ml/min/1.73m2 11/16/2016 Comp Metabolic Zuk120 BUN 20 mg/dL 11/16/2016 Comp Metabolic Ftr853 B/C Ratio 21.7 Ratio 11/16/2016 Comp Metabolic Dua645 CALCIUM 8.9 mg/dL 11/16/2016 Comp Metabolic Xyu689 ALK PHOS 75 U/L 11/16/2016 Comp Metabolic Jci485 AST(SGOT) 30 U/L 11/16/2016 Comp Metabolic Mdj949 ALT(SGPT) 13 U/L 11/16/2016 Comp Metabolic Nzy788 BILI T 0.6 mg/dL 11/16/2016 Comp Metabolic Jga203 ALBUMIN 3.8 g/dL 11/16/2016 Comp Metabolic Hwc458 TPRO 6.8 g/dL 11/16/2016 Comp Metabolic Tap452 GLOB 3.1 g/dL 11/16/2016 Comp Metabolic Esk985 A/G Ratio 1.2 Ratio 11/16/2016 Comp Metabolic Arg034 Osmo 286 mOsmo 11/16/2016 Tsh Ord6 hTSH II 2.50 uIU/mL 11/16/2016 Tsh Ord6 hTSH II 3.18 uIU/mL 05/21/2016 Lipid Ord30 CHOL 212 mg/dL 05/21/2016 Lipid Ord30 HDL 43.0 mg/dl 05/21/2016 Lipid Ord30 TRIG 164 mg/dL 05/21/2016 Lipid Ord30 LDL 136 mg/dL 05/21/2016 Lipid Ord30 C/HDL 4.9 Ratio 05/21/2016 B12 Cjd937 B12 159.00 pg/ml 05/21/2016 %Hba1C Dvg508 % HbA1c 94900- 6 7.5 % 05/21/2016 %Hba1C Qwx494 Gluc Ave 169 mg/dL 05/21/2016 Folate Ord36 Folate >23.80 ng/mL 05/21/2016 Free T4 Ayh453 FREE T4 1.03 ng/dL 05/21/2016 CHEM 14 6824103 AST 33 U/L 03/15/2016 CHEM 14 6775311 ALT 13 U/L 03/15/2016 CHEM 14 4997046 BUN 18 mg/dL 03/15/2016 CHEM 14 9527721 ALBUMIN 3.9 g/dL 03/15/2016 CHEM 14 6473236 CHLORIDE 105 mmol/L 03/15/2016 CHEM 14 1850548 Bili Total 0.4 mg/dL 03/15/2016 CHEM 14 4152394 ALK PHOS 60 U/L 03/15/2016 CHEM 14 9101510 SODIUM 138 mmol/L 03/15/2016 CHEM 14 7997547 CREATININE 0.99 mg/dL 03/15/2016 CHEM 14 5158815 CALCIUM 9.4 mg/dL 03/15/2016 CHEM 14 8406150 POTASSIUM 3.8 mmol/L 03/15/2016 CHEM 14 8435839 TOTAL PROTEIN 6.7 g/dL 03/15/2016 CHEM 14 0849002 GLUCOSE 109 mg/dL 03/15/2016 CHEM 14 2296895 Bicarbonate 27 mmol/L 03/15/2016 CHEM 14 4761861 AGAP 6 mmol/L 03/15/2016 GFR CALC 4221310 GFR Non Afr Amr 54 mL/min 03/15/2016 GFR CALC 7229890 GFR Afr Amr >60 mL/min 03/15/2016 B12 Jze823 B12 46.00 pg/ml 08/07/2015 Iron Ord72 Iron [...] Ord2 RDW 16.6 % 08/05/2015 Free T4 Qhc723 FREE T4 1.33 ng/dL 08/05/2015 Comp Metabolic Rhz303 NA 137 mEq/L 08/05/2015 Comp Metabolic Cpa060 K 4.5 mEq/L 08/05/2015 Comp Metabolic Yfg755 CL 104 mEq/L 08/05/2015 Comp Metabolic Mmc236 CO2 26.0 mEq/L 08/05/2015 Comp Metabolic Quh025 ANION GAP 12 08/05/2015 Comp Metabolic Qgy954 GLUCOSE 146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
--- OUTSIDE RECORDS SUMMARY | 2019-01-23 08:17 | XMS REPORT | CCD ---
Author Author [facility] Organization [facility] Address [address] [place] [address] Phone Care Team Providers Care Rehabilitation Services Counselor Name Role Phone PP Unavailable CCM Unavailable Summary Purpose Interface Exchange Insurance Providers Payer name Policy type / Coverage type Covered alliance party ID Effective Begin Date Effective End Date [facility] Commercial Insurance [id number] Unknown Family history Runs in the family [...] U-100 Insulin 100 unit/mL subcutaneous suspension RxNorm: 907792 Unit(s) INJECT 18 UNITS UNDER THE SKIN BEFORE MEALS 12/12/2018 04/22/2019 Active Lantus Solostar U-100 Insulin 100 unit/mL (3 mL) subcutaneous pen RxNorm: 917150 Unit(s) [id number] UNITS UNDER THE SKIN EVERY NIGHT AT BEDTIME 12/12/2018 01/14/2021 Active Humulin 70/30 U-100 Insulin 100 unit/mL subcutaneous suspension RxNorm: 262453 INJECT 18 UNITS UNDER THE SKIN EVERY MORNING 12/05/2018 03/24/2019 Active silver sulfadiazine 1 % topical cream RxNorm: 094987 1 Application TOP BID 11/23/2018 No Stop Date Active Keflex 500 mg capsule RxNorm: 114457 1 Capsule(s) PO TID 11/23/2018 11/29/2018 Inactive carvedilol 12.5 mg tablet RxNorm: 417156 Tablet(s) TAKE ONE TABLET BY MOUTH TWICE A DAY 11/01/2018 10/26/2019 Active terazosin 2 mg capsule RxNorm: 205406 Capsule(s) TAKE ONE CAPSULE BY MOUTH DAILY 09/06/2018 08/31/2019 Active levothyroxine 100 mcg tablet RxNorm: 955560 TAKE ONE TABLET BY MOUTH DAILY 09/06/2018 02/02/2019 Active Contour Test Strips RxNorm: TEST BLOOD SUGAR TWO TIMES A DAY E11.65 08/30/2018 03/01/2020 Active Lantus Solostar U-100 Insulin 100 unit/mL (3 mL) subcutaneous pen RxNorm: 885031 INJECT 35 UNITS UNDER THE SKIN EVERY NIGHT AT BEDTIME 08/22/2018 12/11/2018 Inactive carvedilol 12.5 mg tablet RxNorm: 736255 TAKE ONE TABLET BY MOUTH TWICE A DAY 08/07/2018 10/31/2018 Inactive Humulin 70/30 U-100 Insulin 100 unit/mL subcutaneous suspension RxNorm: 424164 INJECT 18 UNITS UNDER THE SKIN EVERY MORNING 06/20/2018 06/19/2018 Inactive Humulin 70/30 U-100 Insulin 100 unit/mL subcutaneous suspension RxNorm: 452823 Unit(s) INJECT 18 UNITS UNDER THE SKIN EVERY MORNING 06/20/2018 09/11/2018 Inactive terazosin 2 mg capsule RxNorm: 057085 TAKE ONE CAPSULE BY MOUTH DAILY 06/09/2018 09/05/2018 Inactive Humulin 70/30 U-100 Insulin 100 unit/mL subcutaneous suspension RxNorm: 932558 18 Unit(s) SQ QAM 05/15/2018 06/19/2018 Inactive levothyroxine 100 mcg tablet RxNorm: 059907 1 Tablet(s) PO daily 05/11/2018 09/05/2018 Inactive carvedilol 12.5 mg tablet RxNorm: 092201 TAKE ONE TABLET BY MOUTH TWICE A DAY 05/05/2018 08/06/2018 Inactive losartan 100 mg tablet RxNorm: 457901 TAKE ONE TABLET BY MOUTH DAILY 03/24/2018 06/10/2020 Active terazosin 2 mg capsule RxNorm: 667629 TAKE ONE CAPSULE BY MOUTH DAILY 03/07/2018 06/08/2018 Inactive cyanocobalamin (vit B-12) 1,000 mcg/mL injection solution RxNorm: 507409 1 Milliliter(s) Inj 01/12/2018 01/12/2018 Inactive Lantus Solostar U-100 Insulin 100 unit/mL (3 mL) subcutaneous pen RxNorm: 822641 Unit(s) INJECT 24 UNITS UNDER THE SKIN EVERY NIGHT AT BEDTIME 01/12/2018 08/21/2018 Inactive Humulin 70/30 U-100 Insulin 100 unit/mL subcutaneous suspension RxNorm: 856107 INJECT 18 UNITS UNDER THE SKIN EVERY MORNING 11/14/2017 03/05/2018 Inactive carvedilol 12.5 mg tablet RxNorm: 378659 TAKE ONE TABLET BY MOUTH TWICE A DAY 11/07/2017 05/04/2018 Inactive cyanocobalamin (vit B-12) 1,000 mcg/mL injection solution RxNorm: 010335 Milliliter(s) Inj 09/15/2017 09/15/2017 Inactive terazosin 2 mg capsule RxNorm: 907455 Capsule(s) TAKE ONE CAPSULE BY MOUTH DAILY 09/07/2017 03/05/2018 Inactive Lantus Solostar 100 unit/mL (3 mL) subcutaneous insulin pen RxNorm: 924974 INJECT 35 UNITS UNDER THE SKIN EVERY NIGHT AT BEDTIME 08/29/2017 01/11/2018 Inactive One Touch Test strips RxNorm: 1 test Miscellaneous BID 08/22/2017 08/16/2018 Inactive Contour Test Strips RxNorm: TEST BLOOD SUGAR TWO TIMES A DAY E11.65 08/22/2017 08/29/2018 Inactive Tamiflu 75 mg capsule RxNorm: 023330 1 Capsule(s) PO daily 08/17/2017 08/16/2017 Inactive Tamiflu 75 mg capsule RxNorm: 621252 1 Capsule(s) PO daily 08/17/2017 08/26/2017 Inactive cyanocobalamin (vit B-12) 1,000 mcg/mL injection solution RxNorm: 511851 1 Milliliter(s) Inj 08/17/2017 08/17/2017 Inactive carvedilol 12.5 mg tablet RxNorm: 331353 TAKE ONE TABLET BY MOUTH TWICE A DAY 08/10/2017 11/06/2017 Inactive cyanocobalamin (vit B-12) 1,000 mcg/mL injection solution RxNorm: 089140 1 Milliliter(s) Inj 07/19/2017 07/19/2017 Inactive Humulin 70/30 100 unit/mL subcutaneous suspension RxNorm: 599040 14 Unit(s) SQ QAM 07/06/2017 05/14/2018 Inactive Lantus Solostar 100 unit/mL (3 mL) subcutaneous insulin pen RxNorm: 010806 26 Unit(s) SQ QHS 07/06/2017 08/28/2017 Inactive losartan 100 mg tablet RxNorm: 080993 TAKE ONE TABLET BY MOUTH DAILY 06/07/2017 03/23/2018 Inactive Lantus Solostar 100 unit/mL (3 mL) subcutaneous insulin pen RxNorm: 334304 28 Unit(s) SQ QHS 05/19/2017 07/05/2017 Inactive cyanocobalamin (vit B-12) 1,000 mcg/mL injection solution RxNorm: 521519 1 Milliliter(s) Inj 05/19/2017 05/19/2017 Inactive terazosin 2 mg capsule RxNorm: 418885 TAKE ONE CAPSULE BY MOUTH DAILY 05/16/2017 09/06/2017 Inactive cyanocobalamin (vit B-12) 1,000 mcg/mL injection solution RxNorm: 312177 1 Milliliter(s) Inj 04/06/2017 04/06/2017 Inactive cyanocobalamin (vit B-12) 1,000 mcg/mL injection solution RxNorm: 451096 Milliliter(s) Inj 01/04/2017 01/04/2017 Inactive Humulin 70/30 U-100 Insulin 100 unit/mL subcutaneous suspension RxNorm: 527309 18 Unit(s) SQ QAM 12/22/2016 06/04/2017 Inactive cyanocobalamin (vit B-12) 1,000 mcg/mL injection solution RxNorm: 451247 1 Milliliter(s) Inj 12/10/2016 12/10/2016 Inactive Zithromax Z-Jose 250 mg tablet RxNorm: 286938 1 Tablet(s) PO UD 11/16/2016 11/20/2016 Inactive terazosin 2 mg capsule RxNorm: 109620 TAKE ONE CAPSULE BY MOUTH DAILY 11/08/2016 05/06/2017 Inactive Lantus Solostar 100 unit/mL (3 mL) subcutaneous insulin pen RxNorm: 985503 INJECT 35 UNITS UNDER THE SKIN EVERY NIGHT AT BEDTIME 10/22/2016 07/18/2017 Inactive cyanocobalamin (vit B-12) 1,000 mcg/mL injection solution RxNorm: 847705 Milliliter(s) Inj 10/13/2016 10/13/2016 Inactive cyanocobalamin (vit B-12) 1,000 mcg/mL injection solution RxNorm: 823192 1 Milliliter(s) Inj 09/03/2016 09/03/2016 Inactive Contour Test Strips RxNorm: TEST BLOOD SUGAR TWO TIMES A DAY E11.65 08/19/2016 08/21/2017 Inactive carvedilol 12.5 mg tablet RxNorm: 524354 TAKE ONE TABLET BY MOUTH TWICE A DAY 08/05/2016 10/31/2018 Inactive carvedilol 12.5 mg tablet RxNorm: 542354 TAKE ONE TABLET BY MOUTH TWICE A DAY 08/05/2016 01/01/2017 Inactive carvedilol 12.5 mg tablet RxNorm: 665736 1 Tablet(s) PO BID 08/04/2016 10/31/2018 Inactive cyanocobalamin (vit B-12) 1,000 mcg/mL injection solution RxNorm: 303351 Milliliter(s) Inj 07/29/2016 07/29/2016 Inactive Lantus Solostar 100 unit/mL (3 mL) subcutaneous insulin pen RxNorm: 830809 30 Unit(s) SQ QHS 07/15/2016 05/18/2017 Inactive Humulin 70/30 100 unit/mL subcutaneous suspension RxNorm: 130154 18 Unit(s) SQ QAM 07/15/2016 12/21/2016 Inactive losartan 100 mg tablet RxNorm: 256706 TAKE ONE TABLET BY MOUTH DAILY 07/08/2016 06/02/2017 Inactive terazosin 2 mg capsule RxNorm: 525010 TAKE ONE CAPSULE BY MOUTH DAILY 06/10/2016 11/06/2016 Inactive cyanocobalamin (vit B-12) 1,000 mcg/mL injection solution RxNorm: 242248 1 Milliliter(s) Inj 06/03/2016 06/03/2016 Inactive Humulin 70/30 100 unit/mL subcutaneous suspension RxNorm: 369536 Unit(s) INJECT 10 UNITS UNDER THE SKIN 06/01/2016 07/14/2016 Inactive Request already responded to by other means (e.g. phone or fax) Humulin 70/30 100 unit/mL subcutaneous suspension RxNorm: 744636 INJECT 10 UNITS UNDER THE SKIN BEFORE MEALS 06/01/2016 05/31/2016 Inactive Request already responded to by other means (e.g. phone or fax) Lantus Solostar 100 unit/mL (3 mL) subcutaneous insulin pen RxNorm: 376978 35 Unit(s) SQ QHS 05/26/2016 07/14/2016 Inactive Humulin 70/30 100 unit/mL subcutaneous suspension RxNorm: 589120 10 Unit(s) SQ QA 05/24/2016 10/02/2016 Inactive Humulin 70/30 100 unit/mL subcutaneous suspension RxNorm: 600244 21 Unit(s) SQ QAM 05/24/2016 05/23/2016 Inactive Lantus Solostar 100 unit/mL (3 mL) subcutaneous insulin pen RxNorm: 949274 32 Unit(s) SQ Q 04/22/2016 05/25/2016 Inactive Humulin 70/30 100 unit/mL subcutaneous suspension RxNorm: 374252 21 Unit(s) SQ QAM 04/22/2016 05/24/2016 Inactive with breakfast hydrochlorothiazide 25 mg tablet RxNorm: 609132 TAKE ONE TABLET BY MOUTH DAILY 02/04/2016 02/16/2016 Inactive terazosin 2 mg capsule RxNorm: 195468 Capsule(s) TAKE ONE CAPSULE BY MOUTH DAILY. 12/01/2015 05/28/2016 Inactive Humulin 70/30 100 unit/mL subcutaneous suspension RxNorm: 723758 INJECT 10 UNITS UNDER THE SKIN BEFORE MEALS 11/06/2015 03/16/2016 Inactive hydrochlorothiazide 25 mg tablet RxNorm: 027123 1 Tablet(s) PO daily 10/06/2015 02/02/2016 Inactive cyanocobalamin (vit B-12) 1,000 mcg/mL injection solution RxNorm: 949704 Milliliter(s) Inj 09/15/2015 09/15/2015 Inactive Humulin 70/30 100 unit/mL subcutaneous suspension RxNorm: 281380 INJECT 10 UNITS UNDER THE SKIN BEFORE MEALS 09/08/2015 10/10/2015 Inactive cyanocobalamin (vit B-12) 1,000 mcg/mL injection solution RxNorm: 160334 Milliliter(s) Inj 09/08/2015 09/08/2015 Inactive terazosin 2 mg capsule RxNorm: 183241 TAKE ONE CAPSULE BY MOUTH DAILY. DISCONTINUE 5 MG CAPSULES 09/01/2015 11/29/2015 Inactive cyanocobalamin (vit B-12) 1,000 mcg/mL injection solution RxNorm: 889397 Milliliter(s) Inj 09/01/2015 09/01/2015 Inactive cyanocobalamin (vit B-12) 1,000 mcg/mL injection solution RxNorm: 575669 Milliliter(s) Inj 08/25/2015 08/25/2015 Inactive levothyroxine 112 mcg tablet RxNorm: 115463 1 Tablet(s) PO daily 08/06/2015 02/14/2017 Inactive Lantus Solostar 100 unit/mL (3 mL) subcutaneous insulin pen RxNorm: 820898 35 Unit(s) SQ QHS 08/06/2015 04/21/2016 Inactive Humulin 70/30 100 unit/mL subcutaneous suspension RxNorm: 282720 20 Unit(s) SQ AC 08/05/2015 04/21/2016 Inactive with breakfast carvedilol 12.5 mg tablet RxNorm: 441835 1 Tablet(s) PO BID 08/05/2015 01/31/2016 Inactive Humulin 70/30 100 unit/mL subcutaneous suspension RxNorm: 360820 10 Unit(s) SQ AC 07/22/2015 08/04/2015 Inactive losartan 100 mg tablet RxNorm: 101729 TAKE ONE TABLET BY MOUTH DAILY 06/25/2015 06/18/2016 Inactive Lantus Solostar 100 unit/mL (3 mL) subcutaneous insulin pen RxNorm: 797405 30 Unit(s) SQ QHS 06/18/2015 08/05/2015 Inactive terazosin 2 mg capsule RxNorm: 346687 1 Capsule(s) PO daily 04/14/2015 08/11/2015 Inactive DC the 5mg order terazosin 2 mg capsule RxNorm: 754187 1 Capsule(s) PO daily 04/14/2015 04/13/2015 Inactive Synthroid 25 mcg tablet RxNorm: 104460 1 Tablet(s) PO daily 04/11/2015 02/14/2017 Inactive Synthroid 25 mcg tablet RxNorm: 434515 1 Tablet(s) PO daily 04/11/2015 04/10/2015 Inactive Lantus Solostar 100 unit/mL (3 mL) subcutaneous insulin pen RxNorm: 972631 30 Unit(s) SQ QHS 04/04/2015 06/17/2015 Inactive terazosin 5 mg tablet RxNorm: 880113 1 Tablet(s) PO daily 04/03/2015 04/13/2015 Inactive Lantus Solostar 100 unit/mL (3 mL) subcutaneous insulin pen RxNorm: 156578 25 Unit(s) SQ QHS 01/08/2015 04/03/2015 Inactive carvedilol 25 mg tablet RxNorm: 079272 1 Tablet(s) PO BID 01/02/2015 01/31/2015 Inactive terazosin 5 mg tablet RxNorm: 883035 1 Tablet(s) PO daily 01/02/2015 01/01/2015 Inactive levothyroxine 125 mcg tablet RxNorm: 421300 1 Tablet(s) PO daily 01/02/2015 01/31/2015 Inactive terazosin 5 mg tablet RxNorm: 790875 1/2 Tablet(s) PO daily 01/02/2015 01/31/2015 Inactive losartan 100 mg tablet RxNorm: 157752 1 Tablet(s) PO daily 12/24/2014 04/22/2015 Inactive losartan 100 mg tablet RxNorm: 951410 1 Tablet(s) PO daily 12/24/2014 12/23/2014 Inactive Contour Test Strips RxNorm: Miscellaneous test blood sugars BID 12/06/2014 12/05/2014 Inactive dx 250.00 Contour Test Strips RxNorm: Miscellaneous test blood sugars BID or UD 12/06/2014 06/23/2015 Inactive dx 250.00 [SAVINGS FOR NON-COVERED DRUGS -- [id number], PCN: [id number], Group: [id number], ID# [id number], Questions: . THIS IS NOT INSURANCE.] folic acid 1 mg tablet RxNorm: 424893 1 Tablet(s) PO QHS No Start Date Active Microlet Lancet RxNorm: Miscellaneous Test BID or Ud No Start Date Active 250.0 aspirin 81 mg tablet,delayed release RxNorm: 873585 1 Tablet(s) PO daily No Start Date Active Stool Softener 100 mg capsule RxNorm: 2655665 1 Capsule(s) PO every other day No Start Date Active folic acid oral RxNorm: 4511 oral No Start Date 05/19/2017 Inactive cyanocobalamin (vit B-12) 100 mcg tablet RxNorm: 460871 1 Tablet(s) PO daily No Start Date 02/14/2017 Inactive hydrochlorothiazide 25 mg tablet RxNorm: 247170 1 Tablet(s) PO daily No Start Date 10/05/2015 Inactive Stool Softener 100 mg capsule RxNorm: 6707648 1 Capsule(s) PO daily No Start Date 05/18/2017 Inactive Humulin 70/30 100 unit/mL subcutaneous suspension RxNorm: 536598 20 Unit(s) SQ QAM No Start Date 07/21/2015 Inactive levothyroxine 100 mcg tablet RxNorm: 396599 1 Tablet(s) PO daily No Start Date 05/10/2018 Inactive Lantus Solostar 100 unit/mL (3 mL) subcutaneous insulin pen RxNorm: 597914 20 Unit(s) SQ QHS No Start Date 01/07/2015 Inactive ferrous sulfate 325 mg (65 mg iron) tablet RxNorm: 278511 1 Tablet(s) PO daily No Start Date 05/18/2017 Inactive Medication Administered Medication Codes Instructions Start Date Status cyanocobalamin (vit B-12) 1,000 mcg/mL injection solution RxNorm: 054532 1Milliliter 01/12/2018 No longer Active cyanocobalamin (vit B-12) 1,000 mcg/mL injection solution RxNorm: 123927 Milliliter 09/15/2017 No longer Active cyanocobalamin (vit B-12) 1,000 mcg/mL injection solution RxNorm: 303162 1Milliliter 08/17/2017 No longer Active cyanocobalamin (vit B-12) 1,000 mcg/mL injection solution RxNorm: 938593 1Milliliter 07/19/2017 No longer Active cyanocobalamin (vit B-12) 1,000 mcg/mL injection solution RxNorm: 045207 1Milliliter 05/19/2017 No longer Active cyanocobalamin (vit B-12) 1,000 mcg/mL injection solution RxNorm: 898748 1Milliliter 04/06/2017 No longer Active cyanocobalamin (vit B-12) 1,000 mcg/mL injection solution RxNorm: 805016 Milliliter 01/04/2017 No longer Active cyanocobalamin (vit B-12) 1,000 mcg/mL injection solution RxNorm: 344382 1Milliliter 12/10/2016 No longer Active cyanocobalamin (vit B-12) 1,000 mcg/mL injection solution RxNorm: 149656 Milliliter 10/13/2016 No longer Active cyanocobalamin (vit B-12) 1,000 mcg/mL injection solution RxNorm: 193481 1Milliliter 09/03/2016 No longer Active cyanocobalamin (vit B-12) 1,000 mcg/mL injection solution RxNorm: 883368 Milliliter 07/29/2016 No longer Active cyanocobalamin (vit B-12) 1,000 mcg/mL injection solution RxNorm: 372949 1Milliliter 06/03/2016 No longer Active cyanocobalamin (vit B-12) 1,000 mcg/mL injection solution RxNorm: 230797 Milliliter 09/15/2015 No longer Active cyanocobalamin (vit B-12) 1,000 mcg/mL injection solution RxNorm: 991024 Milliliter 09/08/2015 No longer Active cyanocobalamin (vit B-12) 1,000 mcg/mL injection solution RxNorm: 976193 Milliliter 09/01/2015 No longer Active cyanocobalamin (vit B-12) 1,000 mcg/mL injection solution RxNorm: 034455 Milliliter 08/25/2015 No longer Active Immunizations Vaccine [...] 29.3 pg 08/15/2018 Cbc With Differential Ord2 Carson% 10.9 % 08/15/2018 Cbc With Differential Ord2 [...] 2.66 K/ul 08/15/2018 Cbc With Differential Ord2 [place] ABS# 0.7 K/ul 08/15/2018 Cbc With Differential Ord2 Eos ABS# 0.2 K/ul 08/15/2018 Cbc With Differential Ord2 Baso ABS# 0.0 K/ul 08/15/2018 Comp Metabolic Esm246 NA 139 mEq/L 08/15/2018 Comp Metabolic Heu976 K 4.0 mEq/L 08/15/2018 Comp Metabolic Iqr076 CL 107 mEq/L 08/15/2018 Comp Metabolic Brk984 CO2 25.0 mEq/L 08/15/2018 Comp Metabolic Lon600 ANION GAP 11 08/15/2018 Comp Metabolic Zwc293 GLUCOSE 142 mg/dL 08/15/2018 Comp Metabolic Klu407 Creat 0.9 mg/dL 08/15/2018 Comp Metabolic Tsd477 eGFR 64 ml/min/1.73m2 08/15/2018 Comp Metabolic Bzu540 BUN 22 mg/dL 08/15/2018 Comp Metabolic Mzq127 B/C Ratio 24.4 Ratio 08/15/2018 Comp Metabolic Qjn951 CALCIUM 9.3 mg/dL 08/15/2018 Comp Metabolic Dtc346 ALK PHOS 83 U/L 08/15/2018 Comp Metabolic Wbz539 AST(SGOT) 35 U/L 08/15/2018 Comp Metabolic Giy347 ALT(SGPT) 19 U/L 08/15/2018 Comp Metabolic Wpk885 BILI T 0.6 mg/dL 08/15/2018 Comp Metabolic Qoa910 ALBUMIN 3.7 g/dL 08/15/2018 Comp Metabolic Woz197 TPRO 6.3 g/dL 08/15/2018 Comp Metabolic Phe403 GLOB 2.6 g/dL 08/15/2018 Comp Metabolic Rkh331 A/G Ratio 1.5 Ratio 08/15/2018 Comp Metabolic Ils557 Osmo 283 mOsmo 08/15/2018 Tsh Ord6 TSH (3rd IS) 2.43 uIU/mL 08/15/2018 %Hba1C Xgj896 % HbA1c 20838- 6 7.4 % 08/15/2018 %Hba1C Mzw665 Gluc Ave 166 mg/dL 08/15/2018 Free T4 Iav747 FREE T4 1.21 ng/dL 05/15/2018 Tsh Ord6 TSH (3rd IS) 0.97 uIU/mL 05/15/2018 Comp Metabolic Sjo934 NA 142 mEq/L 05/15/2018 Comp Metabolic Kwu199 K 4.0 mEq/L 05/15/2018 Comp Metabolic Tvg209 CL 107 mEq/L 05/15/2018 Comp Metabolic Krq216 CO2 28.0 mEq/L 05/15/2018 Comp Metabolic Ufh586 ANION GAP 11 05/15/2018 Comp Metabolic Mht113 GLUCOSE 211 mg/dL 05/15/2018 Comp Metabolic Tah192 Creat 0.9 mg/dL 05/15/2018 Comp Metabolic Fih345 eGFR 61 ml/min/1.73m2 05/15/2018 Comp Metabolic Gad975 BUN 21 mg/dL 05/15/2018 Comp Metabolic Flv386 B/C Ratio 22.6 Ratio 05/15/2018 Comp Metabolic Yen380 CALCIUM 9.1 mg/dL 05/15/2018 Comp Metabolic Bfv678 ALK PHOS 85 U/L 05/15/2018 Comp Metabolic Zfj682 AST(SGOT) 36 U/L 05/15/2018 Comp Metabolic Ztv816 ALT(SGPT) 19 U/L 05/15/2018 Comp Metabolic Wvd828 BILI T 0.6 mg/dL 05/15/2018 Comp Metabolic Bdg397 ALBUMIN 3.8 g/dL 05/15/2018 Comp Metabolic Ald972 TPRO 6.2 g/dL 05/15/2018 Comp Metabolic Dif943 GLOB 2.4 g/dL 05/15/2018 Comp Metabolic Tmh748 A/G Ratio 1.6 Ratio 05/15/2018 Comp Metabolic Ois537 Osmo 292 mOsmo 05/15/2018 %Hba1C Fgt560 % HbA1c 05621- 6 7.8 % 05/15/2018 %Hba1C Lpv203 Gluc Ave 177 mg/dL 05/15/2018 Comp Metabolic Ssx348 NA 139 mEq/L 11/28/2017 Comp Metabolic Pqi672 K 4.1 mEq/L 11/28/2017 Comp Metabolic Ckz227 CL 105 mEq/L 11/28/2017 Comp Metabolic Etv721 CO2 26.0 mEq/L 11/28/2017 Comp Metabolic Sph803 ANION GAP 12 11/28/2017 Comp Metabolic Fwi359 GLUCOSE 132 mg/dL 11/28/2017 Comp Metabolic Hlo070 Creat 0.9 mg/dL 11/28/2017 Comp Metabolic Ngf063 eGFR 66 ml/min/1.73m2 11/28/2017 Comp Metabolic Vkx277 BUN 17 mg/dL 11/28/2017 Comp Metabolic Wnh712 B/C Ratio 19.5 Ratio 11/28/2017 Comp Metabolic Dzw615 CALCIUM 9.1 mg/dL 11/28/2017 Comp Metabolic Die818 ALK PHOS 78 U/L 11/28/2017 Comp Metabolic Pqc455 AST(SGOT) 35 U/L 11/28/2017 Comp Metabolic Aib637 ALT(SGPT) 17 U/L 11/28/2017 Comp Metabolic Pav074 BILI T 0.6 mg/dL 11/28/2017 Comp Metabolic Jup154 ALBUMIN 3.9 g/dL 11/28/2017 Comp Metabolic Byg357 TPRO 6.4 g/dL 11/28/2017 Comp Metabolic Axx601 GLOB 2.5 g/dL 11/28/2017 Comp Metabolic Xxx421 A/G Ratio 1.6 Ratio 11/28/2017 Comp Metabolic Bah743 Osmo 281 mOsmo 11/28/2017 Tsh Ord6 TSH (3rd IS) 1.14 uIU/mL 11/28/2017 Free T4 Uzy846 FREE T4 1.05 ng/dL 11/28/2017 %Hba1C Cms307 % HbA1c 85923- 6 7.7 % 11/25/2017 %Hba1C Cbr263 Gluc Ave 174 mg/dL 11/25/2017 Cbc With [...] 29.8 pg 11/25/2017 Cbc With Differential Ord2 Carson% 10.2 % 11/25/2017 Cbc With Differential Ord2 [...] 2.56 K/ul 11/25/2017 Cbc With Differential Ord2 [place] ABS# 0.7 K/ul 11/25/2017 Cbc With Differential [...] 30.3 pg 05/19/2017 Cbc With Differential Ord2 Carson% 6.8 % 05/19/2017 Cbc With Differential Ord2 [...] 1.64 K/ul 05/19/2017 Cbc With Differential Ord2 [place] ABS# 0.6 K/ul 05/19/2017 Cbc With Differential Ord2 Eos ABS# 0.2 K/ul 05/19/2017 Cbc With Differential Ord2 Baso ABS# 0.0 K/ul 05/19/2017 B12 Uvr381 B12 >1500.00 pg/ml 05/19/2017 Free T4 Zch914 FREE T4 1.10 ng/dL 05/19/2017 %Hba1C Adu167 % HbA1c 90722- 6 6.8 % 05/19/2017 %Hba1C Fwa607 Gluc Ave 148 mg/dL 05/19/2017 Tsh Ord6 hTSH II 1.73 uIU/mL 05/19/2017 Comp Metabolic Wxy961 NA 140 mEq/L 05/19/2017 Comp Metabolic Agu865 K 3.8 mEq/L 05/19/2017 Comp Metabolic Swn970 CL 108 mEq/L 05/19/2017 Comp Metabolic Hgs264 CO2 21.0 mEq/L 05/19/2017 Comp Metabolic Jpj611 ANION GAP 15 05/19/2017 Comp Metabolic Tlo167 GLUCOSE 207 mg/dL 05/19/2017 Comp Metabolic Ttm323 Creat 1.0 mg/dL 05/19/2017 Comp Metabolic Tyr113 eGFR 55 ml/min/1.73m2 05/19/2017 Comp Metabolic Vgj153 BUN 21 mg/dL 05/19/2017 Comp Metabolic Eex232 B/C Ratio 20.4 Ratio 05/19/2017 Comp Metabolic Xfb921 CALCIUM 9.1 mg/dL 05/19/2017 Comp Metabolic Ljh660 ALK PHOS 74 U/L 05/19/2017 Comp Metabolic Pqg001 AST(SGOT) 32 U/L 05/19/2017 Comp Metabolic Uln223 ALT(SGPT) 15 U/L 05/19/2017 Comp Metabolic Ctx878 BILI T 0.6 mg/dL 05/19/2017 Comp Metabolic Sil793 ALBUMIN 3.9 g/dL 05/19/2017 Comp Metabolic Ebw355 TPRO 6.2 g/dL 05/19/2017 Comp Metabolic Wxd867 GLOB 2.3 g/dL 05/19/2017 Comp Metabolic Fnh252 A/G Ratio 1.6 Ratio 05/19/2017 Comp Metabolic Llu119 Osmo 288 mOsmo 05/19/2017 Cbc With Differential [...] 29.3 pg 12/10/2016 Cbc With Differential Ord2 Carson% 7.1 % 12/10/2016 Cbc With Differential Ord2 [...] 2.50 K/ul 12/10/2016 Cbc With Differential Ord2 [place] ABS# 0.5 K/ul 12/10/2016 Cbc With Differential Ord2 Eos ABS# 0.1 K/ul 12/10/2016 Cbc With Differential Ord2 Baso ABS# 0.0 K/ul 12/10/2016 B12 Irb596 B12 222.00 pg/ml 12/10/2016 %Hba1C Xig218 % HbA1c 05103- 6 7.5 % 11/16/2016 %Hba1C Rog010 Gluc Ave 169 mg/dL 11/16/2016 Free T4 Lkx574 FREE T4 1.03 ng/dL 11/16/2016 Comp Metabolic Tav973 NA 138 mEq/L 11/16/2016 Comp Metabolic Zvz436 K 3.8 mEq/L 11/16/2016 Comp Metabolic Dmq018 CL 103 mEq/L 11/16/2016 Comp Metabolic Niz381 CO2 26.0 mEq/L 11/16/2016 Comp Metabolic Ljq685 ANION GAP 13 11/16/2016 Comp Metabolic Rje891 GLUCOSE 235 mg/dL 11/16/2016 Comp Metabolic Oat102 Creat 0.9 mg/dL 11/16/2016 Comp Metabolic Yre760 eGFR 62 ml/min/1.73m2 11/16/2016 Comp Metabolic Gph690 BUN 20 mg/dL 11/16/2016 Comp Metabolic Uiw176 B/C Ratio 21.7 Ratio 11/16/2016 Comp Metabolic Iov489 CALCIUM 8.9 mg/dL 11/16/2016 Comp Metabolic Paz359 ALK PHOS 75 U/L 11/16/2016 Comp Metabolic Uup978 AST(SGOT) 30 U/L 11/16/2016 Comp Metabolic Lbc066 ALT(SGPT) 13 U/L 11/16/2016 Comp Metabolic Lmn781 BILI T 0.6 mg/dL 11/16/2016 Comp Metabolic Fql173 ALBUMIN 3.8 g/dL 11/16/2016 Comp Metabolic Tvr435 TPRO 6.8 g/dL 11/16/2016 Comp Metabolic Wrq838 GLOB 3.1 g/dL 11/16/2016 Comp Metabolic Odt036 A/G Ratio 1.2 Ratio 11/16/2016 Comp Metabolic Uua167 Osmo 286 mOsmo 11/16/2016 Tsh Ord6 hTSH II 2.50 uIU/mL 11/16/2016 Tsh Ord6 hTSH II 3.18 uIU/mL 05/21/2016 Lipid Ord30 CHOL 212 mg/dL 05/21/2016 Lipid Ord30 HDL 43.0 mg/dl 05/21/2016 Lipid Ord30 TRIG 164 mg/dL 05/21/2016 Lipid Ord30 LDL 136 mg/dL 05/21/2016 Lipid Ord30 C/HDL 4.9 Ratio 05/21/2016 B12 Wsp435 B12 159.00 pg/ml 05/21/2016 %Hba1C Plo846 % HbA1c 78594- 6 7.5 % 05/21/2016 %Hba1C Djg756 Gluc Ave 169 mg/dL 05/21/2016 Folate Ord36 Folate >23.80 ng/mL 05/21/2016 Free T4 Kdz997 FREE T4 1.03 ng/dL 05/21/2016 CHEM 14 8625321 AST 33 U/L 03/15/2016 CHEM 14 3396335 ALT 13 U/L 03/15/2016 CHEM 14 8728767 BUN 18 mg/dL 03/15/2016 CHEM 14 1395529 ALBUMIN 3.9 g/dL 03/15/2016 CHEM 14 0413125 CHLORIDE 105 mmol/L 03/15/2016 CHEM 14 0613596 Bili Total 0.4 mg/dL 03/15/2016 CHEM 14 6538021 ALK PHOS 60 U/L 03/15/2016 CHEM 14 3653558 SODIUM 138 mmol/L 03/15/2016 CHEM 14 2161171 CREATININE 0.99 mg/dL 03/15/2016 CHEM 14 1520512 CALCIUM 9.4 mg/dL 03/15/2016 CHEM 14 2075137 POTASSIUM 3.8 mmol/L 03/15/2016 CHEM 14 0786181 TOTAL PROTEIN 6.7 g/dL 03/15/2016 CHEM 14 8091959 GLUCOSE 109 mg/dL 03/15/2016 CHEM 14 2687598 Bicarbonate 27 mmol/L 03/15/2016 CHEM 14 6017034 AGAP 6 mmol/L 03/15/2016 GFR CALC [id number] GFR Non Afr Amr 54 mL/min 03/15/2016 GFR CALC 2583628 GFR Afr Amr >60 mL/min 03/15/2016 B12 Tes626 B12 46.00 pg/ml 08/07/2015 Iron Ord72 Iron [...] Ord2 RDW 16.6 % 08/05/2015 Free T4 Mov456 FREE T4 1.33 ng/dL 08/05/2015 Comp Metabolic Ktv891 NA 137 mEq/L 08/05/2015 Comp Metabolic Rme431 K 4.5 mEq/L 08/05/2015 Comp Metabolic Sfh544 CL 104 mEq/L 08/05/2015 Comp Metabolic Sjy403 CO2 26.0 mEq/L 08/05/2015 Comp Metabolic Qmx505 ANION GAP 12 08/05/2015 Comp Metabolic Xfi014 GLUCOSE 146 mg/dL 08/05/2015 Comp Metabolic Aic516 Creat 1.0 mg/dL 08/05/2015 Comp Metabolic Vdb781 eGFR 56 ml/min/1.73m2 08/05/2015 Comp Metabolic Zub182 BUN 23 mg/dL 08/05/2015 Comp Metabolic Xrr149 B/C Ratio 22.8 Ratio 08/05/2015 Comp Metabolic Vkx221 CALCIUM 9.3 mg/dL 08/05/2015 Comp Metabolic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
--- OUTSIDE RECORDS SUMMARY | 2019-01-23 08:21 | XMS REPORT | CCD ---
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 Role Phone PP Unavailable CCM Unavailable Summary Purpose Interface Exchange Insurance Providers Payer name Policy type / Coverage type Covered democrat ID Effective Begin Date Effective End Date [facility] Commercial Insurance [id number] Unknown Family history Runs in the family [...] U-100 Insulin 100 unit/mL subcutaneous suspension RxNorm: 235491 Unit(s) INJECT 18 UNITS UNDER THE SKIN BEFORE MEALS 12/12/2018 04/22/2019 Active Lantus Solostar U-100 Insulin 100 unit/mL (3 mL) subcutaneous pen RxNorm: 279833 Unit(s) [id number] UNITS UNDER THE SKIN EVERY NIGHT AT BEDTIME 12/12/2018 01/14/2021 Active Humulin 70/30 U-100 Insulin 100 unit/mL subcutaneous suspension RxNorm: 823431 INJECT 18 UNITS UNDER THE SKIN EVERY MORNING 12/05/2018 03/24/2019 Active silver sulfadiazine 1 % topical cream RxNorm: 329768 1 Application TOP BID 11/23/2018 No Stop Date Active Keflex 500 mg capsule RxNorm: 097842 1 Capsule(s) PO TID 11/23/2018 11/29/2018 Inactive carvedilol 12.5 mg tablet RxNorm: 852339 Tablet(s) TAKE ONE TABLET BY MOUTH TWICE A DAY 11/01/2018 10/26/2019 Active terazosin 2 mg capsule RxNorm: 490080 Capsule(s) TAKE ONE CAPSULE BY MOUTH DAILY 09/06/2018 08/31/2019 Active levothyroxine 100 mcg tablet RxNorm: 193223 TAKE ONE TABLET BY MOUTH DAILY 09/06/2018 02/02/2019 Active Contour Test Strips RxNorm: TEST BLOOD SUGAR TWO TIMES A DAY E11.65 08/30/2018 03/01/2020 Active Lantus Solostar U-100 Insulin 100 unit/mL (3 mL) subcutaneous pen RxNorm: 741314 INJECT 35 UNITS UNDER THE SKIN EVERY NIGHT AT BEDTIME 08/22/2018 12/11/2018 Inactive carvedilol 12.5 mg tablet RxNorm: 187668 TAKE ONE TABLET BY MOUTH TWICE A DAY 08/07/2018 10/31/2018 Inactive Humulin 70/30 U-100 Insulin 100 unit/mL subcutaneous suspension RxNorm: 009623 INJECT 18 UNITS UNDER THE SKIN EVERY MORNING 06/20/2018 06/19/2018 Inactive Humulin 70/30 U-100 Insulin 100 unit/mL subcutaneous suspension RxNorm: 235293 Unit(s) INJECT 18 UNITS UNDER THE SKIN EVERY MORNING 06/20/2018 09/11/2018 Inactive terazosin 2 mg capsule RxNorm: 529411 TAKE ONE CAPSULE BY MOUTH DAILY 06/09/2018 09/05/2018 Inactive Humulin 70/30 U-100 Insulin 100 unit/mL subcutaneous suspension RxNorm: 382235 18 Unit(s) SQ QAM 05/15/2018 06/19/2018 Inactive levothyroxine 100 mcg tablet RxNorm: 973074 1 Tablet(s) PO daily 05/11/2018 09/05/2018 Inactive carvedilol 12.5 mg tablet RxNorm: 495251 TAKE ONE TABLET BY MOUTH TWICE A DAY 05/05/2018 08/06/2018 Inactive losartan 100 mg tablet RxNorm: 433977 TAKE ONE TABLET BY MOUTH DAILY 03/24/2018 06/10/2020 Active terazosin 2 mg capsule RxNorm: 149760 TAKE ONE CAPSULE BY MOUTH DAILY 03/07/2018 06/08/2018 Inactive cyanocobalamin (vit B-12) 1,000 mcg/mL injection solution RxNorm: 074346 1 Milliliter(s) Inj 01/12/2018 01/12/2018 Inactive Lantus Solostar U-100 Insulin 100 unit/mL (3 mL) subcutaneous pen RxNorm: 679967 Unit(s) INJECT 24 UNITS UNDER THE SKIN EVERY NIGHT AT BEDTIME 01/12/2018 08/21/2018 Inactive Humulin 70/30 U-100 Insulin 100 unit/mL subcutaneous suspension RxNorm: 309494 INJECT 18 UNITS UNDER THE SKIN EVERY MORNING 11/14/2017 03/05/2018 Inactive carvedilol 12.5 mg tablet RxNorm: 957935 TAKE ONE TABLET BY MOUTH TWICE A DAY 11/07/2017 05/04/2018 Inactive cyanocobalamin (vit B-12) 1,000 mcg/mL injection solution RxNorm: 111356 Milliliter(s) Inj 09/15/2017 09/15/2017 Inactive terazosin 2 mg capsule RxNorm: 198556 Capsule(s) TAKE ONE CAPSULE BY MOUTH DAILY 09/07/2017 03/05/2018 Inactive Lantus Solostar 100 unit/mL (3 mL) subcutaneous insulin pen RxNorm: 697703 INJECT 35 UNITS UNDER THE SKIN EVERY NIGHT AT BEDTIME 08/29/2017 01/11/2018 Inactive One Touch Test strips RxNorm: 1 test Miscellaneous BID 08/22/2017 08/16/2018 Inactive Contour Test Strips RxNorm: TEST BLOOD SUGAR TWO TIMES A DAY E11.65 08/22/2017 08/29/2018 Inactive Tamiflu 75 mg capsule RxNorm: 660750 1 Capsule(s) PO daily 08/17/2017 08/16/2017 Inactive Tamiflu 75 mg capsule RxNorm: 588554 1 Capsule(s) PO daily 08/17/2017 08/26/2017 Inactive cyanocobalamin (vit B-12) 1,000 mcg/mL injection solution RxNorm: 588477 1 Milliliter(s) Inj 08/17/2017 08/17/2017 Inactive carvedilol 12.5 mg tablet RxNorm: 478400 TAKE ONE TABLET BY MOUTH TWICE A DAY 08/10/2017 11/06/2017 Inactive cyanocobalamin (vit B-12) 1,000 mcg/mL injection solution RxNorm: 368361 1 Milliliter(s) Inj 07/19/2017 07/19/2017 Inactive Humulin 70/30 100 unit/mL subcutaneous suspension RxNorm: 941129 14 Unit(s) SQ QAM 07/06/2017 05/14/2018 Inactive Lantus Solostar 100 unit/mL (3 mL) subcutaneous insulin pen RxNorm: 353163 26 Unit(s) SQ QHS 07/06/2017 08/28/2017 Inactive losartan 100 mg tablet RxNorm: 984737 TAKE ONE TABLET BY MOUTH DAILY 06/07/2017 03/23/2018 Inactive Lantus Solostar 100 unit/mL (3 mL) subcutaneous insulin pen RxNorm: 810548 28 Unit(s) SQ QHS 05/19/2017 07/05/2017 Inactive cyanocobalamin (vit B-12) 1,000 mcg/mL injection solution RxNorm: 697763 1 Milliliter(s) Inj 05/19/2017 05/19/2017 Inactive terazosin 2 mg capsule RxNorm: 439196 TAKE ONE CAPSULE BY MOUTH DAILY 05/16/2017 09/06/2017 Inactive cyanocobalamin (vit B-12) 1,000 mcg/mL injection solution RxNorm: 068722 1 Milliliter(s) Inj 04/06/2017 04/06/2017 Inactive cyanocobalamin (vit B-12) 1,000 mcg/mL injection solution RxNorm: 320694 Milliliter(s) Inj 01/04/2017 01/04/2017 Inactive Humulin 70/30 U-100 Insulin 100 unit/mL subcutaneous suspension RxNorm: 435931 18 Unit(s) SQ QAM 12/22/2016 06/04/2017 Inactive cyanocobalamin (vit B-12) 1,000 mcg/mL injection solution RxNorm: 154718 1 Milliliter(s) Inj 12/10/2016 12/10/2016 Inactive Zithromax Z-Jose 250 mg tablet RxNorm: 993514 1 Tablet(s) PO UD 11/16/2016 11/20/2016 Inactive terazosin 2 mg capsule RxNorm: 020895 TAKE ONE CAPSULE BY MOUTH DAILY 11/08/2016 05/06/2017 Inactive Lantus Solostar 100 unit/mL (3 mL) subcutaneous insulin pen RxNorm: 925861 INJECT 35 UNITS UNDER THE SKIN EVERY NIGHT AT BEDTIME 10/22/2016 07/18/2017 Inactive cyanocobalamin (vit B-12) 1,000 mcg/mL injection solution RxNorm: 295485 Milliliter(s) Inj 10/13/2016 10/13/2016 Inactive cyanocobalamin (vit B-12) 1,000 mcg/mL injection solution RxNorm: 265308 1 Milliliter(s) Inj 09/03/2016 09/03/2016 Inactive Contour Test Strips RxNorm: TEST BLOOD SUGAR TWO TIMES A DAY E11.65 08/19/2016 08/21/2017 Inactive carvedilol 12.5 mg tablet RxNorm: 263493 TAKE ONE TABLET BY MOUTH TWICE A DAY 08/05/2016 10/31/2018 Inactive carvedilol 12.5 mg tablet RxNorm: 801067 TAKE ONE TABLET BY MOUTH TWICE A DAY 08/05/2016 01/01/2017 Inactive carvedilol 12.5 mg tablet RxNorm: 569365 1 Tablet(s) PO BID 08/04/2016 10/31/2018 Inactive cyanocobalamin (vit B-12) 1,000 mcg/mL injection solution RxNorm: 583160 Milliliter(s) Inj 07/29/2016 07/29/2016 Inactive Lantus Solostar 100 unit/mL (3 mL) subcutaneous insulin pen RxNorm: 950344 30 Unit(s) SQ QHS 07/15/2016 05/18/2017 Inactive Humulin 70/30 100 unit/mL subcutaneous suspension RxNorm: 804942 18 Unit(s) SQ QAM 07/15/2016 12/21/2016 Inactive losartan 100 mg tablet RxNorm: 049015 TAKE ONE TABLET BY MOUTH DAILY 07/08/2016 06/02/2017 Inactive terazosin 2 mg capsule RxNorm: 981364 TAKE ONE CAPSULE BY MOUTH DAILY 06/10/2016 11/06/2016 Inactive cyanocobalamin (vit B-12) 1,000 mcg/mL injection solution RxNorm: 139072 1 Milliliter(s) Inj 06/03/2016 06/03/2016 Inactive Humulin 70/30 100 unit/mL subcutaneous suspension RxNorm: 382994 Unit(s) INJECT 10 UNITS UNDER THE SKIN 06/01/2016 07/14/2016 Inactive Request already responded to by other means (e.g. phone or fax) Humulin 70/30 100 unit/mL subcutaneous suspension RxNorm: 030323 INJECT 10 UNITS UNDER THE SKIN BEFORE MEALS 06/01/2016 05/31/2016 Inactive Request already responded to by other means (e.g. phone or fax) Lantus Solostar 100 unit/mL (3 mL) subcutaneous insulin pen RxNorm: 045309 35 Unit(s) SQ QHS 05/26/2016 07/14/2016 Inactive Humulin 70/30 100 unit/mL subcutaneous suspension RxNorm: 437944 10 Unit(s) SQ QA 05/24/2016 10/02/2016 Inactive Humulin 70/30 100 unit/mL subcutaneous suspension RxNorm: 713366 21 Unit(s) SQ QAM 05/24/2016 05/23/2016 Inactive Lantus Solostar 100 unit/mL (3 mL) subcutaneous insulin pen RxNorm: 669910 32 Unit(s) SQ Q 04/22/2016 05/25/2016 Inactive Humulin 70/30 100 unit/mL subcutaneous suspension RxNorm: 779916 21 Unit(s) SQ QAM 04/22/2016 05/24/2016 Inactive with breakfast hydrochlorothiazide 25 mg tablet RxNorm: 071786 TAKE ONE TABLET BY MOUTH DAILY 02/04/2016 02/16/2016 Inactive terazosin 2 mg capsule RxNorm: 493780 Capsule(s) TAKE ONE CAPSULE BY MOUTH DAILY. 12/01/2015 05/28/2016 Inactive Humulin 70/30 100 unit/mL subcutaneous suspension RxNorm: 875237 INJECT 10 UNITS UNDER THE SKIN BEFORE MEALS 11/06/2015 03/16/2016 Inactive hydrochlorothiazide 25 mg tablet RxNorm: 337283 1 Tablet(s) PO daily 10/06/2015 02/02/2016 Inactive cyanocobalamin (vit B-12) 1,000 mcg/mL injection solution RxNorm: 083940 Milliliter(s) Inj 09/15/2015 09/15/2015 Inactive Humulin 70/30 100 unit/mL subcutaneous suspension RxNorm: 027967 INJECT 10 UNITS UNDER THE SKIN BEFORE MEALS 09/08/2015 10/10/2015 Inactive cyanocobalamin (vit B-12) 1,000 mcg/mL injection solution RxNorm: 831504 Milliliter(s) Inj 09/08/2015 09/08/2015 Inactive terazosin 2 mg capsule RxNorm: 243223 TAKE ONE CAPSULE BY MOUTH DAILY. DISCONTINUE 5 MG CAPSULES 09/01/2015 11/29/2015 Inactive cyanocobalamin (vit B-12) 1,000 mcg/mL injection solution RxNorm: 799941 Milliliter(s) Inj 09/01/2015 09/01/2015 Inactive cyanocobalamin (vit B-12) 1,000 mcg/mL injection solution RxNorm: 079598 Milliliter(s) Inj 08/25/2015 08/25/2015 Inactive levothyroxine 112 mcg tablet RxNorm: 979037 1 Tablet(s) PO daily 08/06/2015 02/14/2017 Inactive Lantus Solostar 100 unit/mL (3 mL) subcutaneous insulin pen RxNorm: 789276 35 Unit(s) SQ QHS 08/06/2015 04/21/2016 Inactive Humulin 70/30 100 unit/mL subcutaneous suspension RxNorm: 029348 20 Unit(s) SQ AC 08/05/2015 04/21/2016 Inactive with breakfast carvedilol 12.5 mg tablet RxNorm: 846205 1 Tablet(s) PO BID 08/05/2015 01/31/2016 Inactive Humulin 70/30 100 unit/mL subcutaneous suspension RxNorm: 339984 10 Unit(s) SQ AC 07/22/2015 08/04/2015 Inactive losartan 100 mg tablet RxNorm: 282160 TAKE ONE TABLET BY MOUTH DAILY 06/25/2015 06/18/2016 Inactive Lantus Solostar 100 unit/mL (3 mL) subcutaneous insulin pen RxNorm: 917429 30 Unit(s) SQ QHS 06/18/2015 08/05/2015 Inactive terazosin 2 mg capsule RxNorm: 231377 1 Capsule(s) PO daily 04/14/2015 08/11/2015 Inactive DC the 5mg order terazosin 2 mg capsule RxNorm: 823715 1 Capsule(s) PO daily 04/14/2015 04/13/2015 Inactive Synthroid 25 mcg tablet RxNorm: 222179 1 Tablet(s) PO daily 04/11/2015 02/14/2017 Inactive Synthroid 25 mcg tablet RxNorm: 118488 1 Tablet(s) PO daily 04/11/2015 04/10/2015 Inactive Lantus Solostar 100 unit/mL (3 mL) subcutaneous insulin pen RxNorm: 451104 30 Unit(s) SQ QHS 04/04/2015 06/17/2015 Inactive terazosin 5 mg tablet RxNorm: 792623 1 Tablet(s) PO daily 04/03/2015 04/13/2015 Inactive Lantus Solostar 100 unit/mL (3 mL) subcutaneous insulin pen RxNorm: 345925 25 Unit(s) SQ QHS 01/08/2015 04/03/2015 Inactive carvedilol 25 mg tablet RxNorm: 047030 1 Tablet(s) PO BID 01/02/2015 01/31/2015 Inactive terazosin 5 mg tablet RxNorm: 336749 1 Tablet(s) PO daily 01/02/2015 01/01/2015 Inactive levothyroxine 125 mcg tablet RxNorm: 735228 1 Tablet(s) PO daily 01/02/2015 01/31/2015 Inactive terazosin 5 mg tablet RxNorm: 554578 1/2 Tablet(s) PO daily 01/02/2015 01/31/2015 Inactive losartan 100 mg tablet RxNorm: 976805 1 Tablet(s) PO daily 12/24/2014 04/22/2015 Inactive losartan 100 mg tablet RxNorm: 323912 1 Tablet(s) PO daily 12/24/2014 12/23/2014 Inactive Contour Test Strips RxNorm: Miscellaneous test blood sugars BID 12/06/2014 12/05/2014 Inactive dx 250.00 Contour Test Strips RxNorm: Miscellaneous test blood sugars BID or UD 12/06/2014 06/23/2015 Inactive dx 250.00 [SAVINGS FOR NON-COVERED DRUGS -- BIN:[id number], PCN: [id number], Group: [id number], ID# [id number], Questions: . THIS IS NOT INSURANCE.] folic acid 1 mg tablet RxNorm: 457935 1 Tablet(s) PO QHS No Start Date Active Microlet Lancet RxNorm: Miscellaneous Test BID or Ud No Start Date Active 250.0 aspirin 81 mg tablet,delayed release RxNorm: 574580 1 Tablet(s) PO daily No Start Date Active Stool Softener 100 mg capsule RxNorm: 2785815 1 Capsule(s) PO every other day No Start Date Active folic acid oral RxNorm: 4511 oral No Start Date 05/19/2017 Inactive cyanocobalamin (vit B-12) 100 mcg tablet RxNorm: 507787 1 Tablet(s) PO daily No Start Date 02/14/2017 Inactive hydrochlorothiazide 25 mg tablet RxNorm: 984510 1 Tablet(s) PO daily No Start Date 10/05/2015 Inactive Stool Softener 100 mg capsule RxNorm: 1929274 1 Capsule(s) PO daily No Start Date 05/18/2017 Inactive Humulin 70/30 100 unit/mL subcutaneous suspension RxNorm: 363424 20 Unit(s) SQ QAM No Start Date 07/21/2015 Inactive levothyroxine 100 mcg tablet RxNorm: 942167 1 Tablet(s) PO daily No Start Date 05/10/2018 Inactive Lantus Solostar 100 unit/mL (3 mL) subcutaneous insulin pen RxNorm: 564510 20 Unit(s) SQ QHS No Start Date 01/07/2015 Inactive ferrous sulfate 325 mg (65 mg iron) tablet RxNorm: 930193 1 Tablet(s) PO daily No Start Date 05/18/2017 Inactive Medication Administered Medication Codes Instructions Start Date Status cyanocobalamin (vit B-12) 1,000 mcg/mL injection solution RxNorm: 195727 1Milliliter 01/12/2018 No longer Active cyanocobalamin (vit B-12) 1,000 mcg/mL injection solution RxNorm: 401690 Milliliter 09/15/2017 No longer Active cyanocobalamin (vit B-12) 1,000 mcg/mL injection solution RxNorm: 676310 1Milliliter 08/17/2017 No longer Active cyanocobalamin (vit B-12) 1,000 mcg/mL injection solution RxNorm: 591280 1Milliliter 07/19/2017 No longer Active cyanocobalamin (vit B-12) 1,000 mcg/mL injection solution RxNorm: 070372 1Milliliter 05/19/2017 No longer Active cyanocobalamin (vit B-12) 1,000 mcg/mL injection solution RxNorm: 931084 1Milliliter 04/06/2017 No longer Active cyanocobalamin (vit B-12) 1,000 mcg/mL injection solution RxNorm: 812001 Milliliter 01/04/2017 No longer Active cyanocobalamin (vit B-12) 1,000 mcg/mL injection solution RxNorm: 447339 1Milliliter 12/10/2016 No longer Active cyanocobalamin (vit B-12) 1,000 mcg/mL injection solution RxNorm: 403795 Milliliter 10/13/2016 No longer Active cyanocobalamin (vit B-12) 1,000 mcg/mL injection solution RxNorm: 828786 1Milliliter 09/03/2016 No longer Active cyanocobalamin (vit B-12) 1,000 mcg/mL injection solution RxNorm: 524142 Milliliter 07/29/2016 No longer Active cyanocobalamin (vit B-12) 1,000 mcg/mL injection solution RxNorm: 394139 1Milliliter 06/03/2016 No longer Active cyanocobalamin (vit B-12) 1,000 mcg/mL injection solution RxNorm: 929598 Milliliter 09/15/2015 No longer Active cyanocobalamin (vit B-12) 1,000 mcg/mL injection solution RxNorm: 323001 Milliliter 09/08/2015 No longer Active cyanocobalamin (vit B-12) 1,000 mcg/mL injection solution RxNorm: 986344 Milliliter 09/01/2015 No longer Active cyanocobalamin (vit B-12) 1,000 mcg/mL injection solution RxNorm: 498275 Milliliter 08/25/2015 No longer Active Immunizations Vaccine [...] 29.3 pg 08/15/2018 Cbc With Differential Ord2 [place]% 10.9 % 08/15/2018 Cbc With Differential Ord2 [...] 2.66 K/ul 08/15/2018 Cbc With Differential Ord2 [place] ABS# 0.7 K/ul 08/15/2018 Cbc With Differential Ord2 Eos ABS# 0.2 K/ul 08/15/2018 Cbc With Differential Ord2 Baso ABS# 0.0 K/ul 08/15/2018 Comp Metabolic Wyy309 NA 139 mEq/L 08/15/2018 Comp Metabolic Ljj912 K 4.0 mEq/L 08/15/2018 Comp Metabolic Hpr461 CL 107 mEq/L 08/15/2018 Comp Metabolic Xox672 CO2 25.0 mEq/L 08/15/2018 Comp Metabolic Dhv487 ANION GAP 11 08/15/2018 Comp Metabolic Xdy912 GLUCOSE 142 mg/dL 08/15/2018 Comp Metabolic Fam956 Creat 0.9 mg/dL 08/15/2018 Comp Metabolic Tzz347 eGFR 64 ml/min/1.73m2 08/15/2018 Comp Metabolic Nyr583 BUN 22 mg/dL 08/15/2018 Comp Metabolic Lzr372 B/C Ratio 24.4 Ratio 08/15/2018 Comp Metabolic Hve038 CALCIUM 9.3 mg/dL 08/15/2018 Comp Metabolic Enr599 ALK PHOS 83 U/L 08/15/2018 Comp Metabolic Sfk200 AST(SGOT) 35 U/L 08/15/2018 Comp Metabolic Hzh682 ALT(SGPT) 19 U/L 08/15/2018 Comp Metabolic Dor629 BILI T 0.6 mg/dL 08/15/2018 Comp Metabolic Ded591 ALBUMIN 3.7 g/dL 08/15/2018 Comp Metabolic Fgm811 TPRO 6.3 g/dL 08/15/2018 Comp Metabolic Osv416 GLOB 2.6 g/dL 08/15/2018 Comp Metabolic Rmi739 A/G Ratio 1.5 Ratio 08/15/2018 Comp Metabolic Ktq588 Osmo 283 mOsmo 08/15/2018 Tsh Ord6 TSH (3rd IS) 2.43 uIU/mL 08/15/2018 %Hba1C Ncy151 % HbA1c 16015- 6 7.4 % 08/15/2018 %Hba1C Hdu571 Gluc Ave 166 mg/dL 08/15/2018 Free T4 Tek593 FREE T4 1.21 ng/dL 05/15/2018 Tsh Ord6 TSH (3rd IS) 0.97 uIU/mL 05/15/2018 Comp Metabolic Bby854 NA 142 mEq/L 05/15/2018 Comp Metabolic Xat762 K 4.0 mEq/L 05/15/2018 Comp Metabolic Bae676 CL 107 mEq/L 05/15/2018 Comp Metabolic Has337 CO2 28.0 mEq/L 05/15/2018 Comp Metabolic Vnz616 ANION GAP 11 05/15/2018 Comp Metabolic Kqs802 GLUCOSE 211 mg/dL 05/15/2018 Comp Metabolic Ifs869 Creat 0.9 mg/dL 05/15/2018 Comp Metabolic Oyc881 eGFR 61 ml/min/1.73m2 05/15/2018 Comp Metabolic Cop889 BUN 21 mg/dL 05/15/2018 Comp Metabolic Flw691 B/C Ratio 22.6 Ratio 05/15/2018 Comp Metabolic Epb832 CALCIUM 9.1 mg/dL 05/15/2018 Comp Metabolic Gxz914 ALK PHOS 85 U/L 05/15/2018 Comp Metabolic Fwv505 AST(SGOT) 36 U/L 05/15/2018 Comp Metabolic Vno846 ALT(SGPT) 19 U/L 05/15/2018 Comp Metabolic Use989 BILI T 0.6 mg/dL 05/15/2018 Comp Metabolic Uyv940 ALBUMIN 3.8 g/dL 05/15/2018 Comp Metabolic Yea948 TPRO 6.2 g/dL 05/15/2018 Comp Metabolic Xqj775 GLOB 2.4 g/dL 05/15/2018 Comp Metabolic Khj422 A/G Ratio 1.6 Ratio 05/15/2018 Comp Metabolic Fgu498 Osmo 292 mOsmo 05/15/2018 %Hba1C Lqk870 % HbA1c 97374- 6 7.8 % 05/15/2018 %Hba1C Fmf411 Gluc Ave 177 mg/dL 05/15/2018 Comp Metabolic Vjo540 NA 139 mEq/L 11/28/2017 Comp Metabolic Rid782 K 4.1 mEq/L 11/28/2017 Comp Metabolic Uqt847 CL 105 mEq/L 11/28/2017 Comp Metabolic Yfk535 CO2 26.0 mEq/L 11/28/2017 Comp Metabolic Ojf532 ANION GAP 12 11/28/2017 Comp Metabolic Ovq130 GLUCOSE 132 mg/dL 11/28/2017 Comp Metabolic Bfa232 Creat 0.9 mg/dL 11/28/2017 Comp Metabolic Hgo564 eGFR 66 ml/min/1.73m2 11/28/2017 Comp Metabolic Aex770 BUN 17 mg/dL 11/28/2017 Comp Metabolic Szz896 B/C Ratio 19.5 Ratio 11/28/2017 Comp Metabolic Vli884 CALCIUM 9.1 mg/dL 11/28/2017 Comp Metabolic Wjd878 ALK PHOS 78 U/L 11/28/2017 Comp Metabolic Acn982 AST(SGOT) 35 U/L 11/28/2017 Comp Metabolic Gty694 ALT(SGPT) 17 U/L 11/28/2017 Comp Metabolic Rdp000 BILI T 0.6 mg/dL 11/28/2017 Comp Metabolic Ljy361 ALBUMIN 3.9 g/dL 11/28/2017 Comp Metabolic Kra512 TPRO 6.4 g/dL 11/28/2017 Comp Metabolic Rdb869 GLOB 2.5 g/dL 11/28/2017 Comp Metabolic Ljq097 A/G Ratio 1.6 Ratio 11/28/2017 Comp Metabolic Cmv017 Osmo 281 mOsmo 11/28/2017 Tsh Ord6 TSH (3rd IS) 1.14 uIU/mL 11/28/2017 Free T4 Zrm765 FREE T4 1.05 ng/dL 11/28/2017 %Hba1C Usl042 % HbA1c 95816- 6 7.7 % 11/25/2017 %Hba1C Qsh800 Gluc Ave 174 mg/dL 11/25/2017 Cbc With [...] 29.8 pg 11/25/2017 Cbc With Differential Ord2 [place]% 10.2 % 11/25/2017 Cbc With Differential Ord2 [...] 2.56 K/ul 11/25/2017 Cbc With Differential Ord2 [place] ABS# 0.7 K/ul 11/25/2017 Cbc With Differential [...] 30.3 pg 05/19/2017 Cbc With Differential Ord2 [place]% 6.8 % 05/19/2017 Cbc With Differential Ord2 [...] 1.64 K/ul 05/19/2017 Cbc With Differential Ord2 [place] ABS# 0.6 K/ul 05/19/2017 Cbc With Differential Ord2 Eos ABS# 0.2 K/ul 05/19/2017 Cbc With Differential Ord2 Baso ABS# 0.0 K/ul 05/19/2017 B12 Ero554 B12 >1500.00 pg/ml 05/19/2017 Free T4 Tuf909 FREE T4 1.10 ng/dL 05/19/2017 %Hba1C Cex273 % HbA1c 97926- 6 6.8 % 05/19/2017 %Hba1C Kdq295 Gluc Ave 148 mg/dL 05/19/2017 Tsh Ord6 hTSH II 1.73 uIU/mL 05/19/2017 Comp Metabolic Mxr095 NA 140 mEq/L 05/19/2017 Comp Metabolic Btr597 K 3.8 mEq/L 05/19/2017 Comp Metabolic Sry077 CL 108 mEq/L 05/19/2017 Comp Metabolic Rvz922 CO2 21.0 mEq/L 05/19/2017 Comp Metabolic Szm252 ANION GAP 15 05/19/2017 Comp Metabolic Qsj714 GLUCOSE 207 mg/dL 05/19/2017 Comp Metabolic Mlx908 Creat 1.0 mg/dL 05/19/2017 Comp Metabolic Rbt521 eGFR 55 ml/min/1.73m2 05/19/2017 Comp Metabolic Qjp724 BUN 21 mg/dL 05/19/2017 Comp Metabolic Usa703 B/C Ratio 20.4 Ratio 05/19/2017 Comp Metabolic Pyf621 CALCIUM 9.1 mg/dL 05/19/2017 Comp Metabolic Wnc441 ALK PHOS 74 U/L 05/19/2017 Comp Metabolic Npq541 AST(SGOT) 32 U/L 05/19/2017 Comp Metabolic Xsi894 ALT(SGPT) 15 U/L 05/19/2017 Comp Metabolic Lsl316 BILI T 0.6 mg/dL 05/19/2017 Comp Metabolic Pch938 ALBUMIN 3.9 g/dL 05/19/2017 Comp Metabolic Dnf428 TPRO 6.2 g/dL 05/19/2017 Comp Metabolic Uje850 GLOB 2.3 g/dL 05/19/2017 Comp Metabolic Pjn960 A/G Ratio 1.6 Ratio 05/19/2017 Comp Metabolic Lyt074 Osmo 288 mOsmo 05/19/2017 Cbc With Differential [...] 29.3 pg 12/10/2016 Cbc With Differential Ord2 [place]% 7.1 % 12/10/2016 Cbc With Differential Ord2 [...] 2.50 K/ul 12/10/2016 Cbc With Differential Ord2 [place] ABS# 0.5 K/ul 12/10/2016 Cbc With Differential Ord2 Eos ABS# 0.1 K/ul 12/10/2016 Cbc With Differential Ord2 Baso ABS# 0.0 K/ul 12/10/2016 B12 Kwn173 B12 222.00 pg/ml 12/10/2016 %Hba1C Ird386 % HbA1c 80510- 6 7.5 % 11/16/2016 %Hba1C Ltn405 Gluc Ave 169 mg/dL 11/16/2016 Free T4 Mhc063 FREE T4 1.03 ng/dL 11/16/2016 Comp Metabolic Exx204 NA 138 mEq/L 11/16/2016 Comp Metabolic Zhl479 K 3.8 mEq/L 11/16/2016 Comp Metabolic Mjk439 CL 103 mEq/L 11/16/2016 Comp Metabolic Hmj569 CO2 26.0 mEq/L 11/16/2016 Comp Metabolic Ibw160 ANION GAP 13 11/16/2016 Comp Metabolic Beb287 GLUCOSE 235 mg/dL 11/16/2016 Comp Metabolic Hgf924 Creat 0.9 mg/dL 11/16/2016 Comp Metabolic Bxe798 eGFR 62 ml/min/1.73m2 11/16/2016 Comp Metabolic Ezl106 BUN 20 mg/dL 11/16/2016 Comp Metabolic Lfr994 B/C Ratio 21.7 Ratio 11/16/2016 Comp Metabolic Jyl377 CALCIUM 8.9 mg/dL 11/16/2016 Comp Metabolic Jri623 ALK PHOS 75 U/L 11/16/2016 Comp Metabolic Odd881 AST(SGOT) 30 U/L 11/16/2016 Comp Metabolic Wlf559 ALT(SGPT) 13 U/L 11/16/2016 Comp Metabolic Qmk853 BILI T 0.6 mg/dL 11/16/2016 Comp Metabolic Mcj293 ALBUMIN 3.8 g/dL 11/16/2016 Comp Metabolic Kvv082 TPRO 6.8 g/dL 11/16/2016 Comp Metabolic Eat432 GLOB 3.1 g/dL 11/16/2016 Comp Metabolic Sie545 A/G Ratio 1.2 Ratio 11/16/2016 Comp Metabolic Epl009 Osmo 286 mOsmo 11/16/2016 Tsh Ord6 hTSH II 2.50 uIU/mL 11/16/2016 Tsh Ord6 hTSH II 3.18 uIU/mL 05/21/2016 Lipid Ord30 CHOL 212 mg/dL 05/21/2016 Lipid Ord30 HDL 43.0 mg/dl 05/21/2016 Lipid Ord30 TRIG 164 mg/dL 05/21/2016 Lipid Ord30 LDL 136 mg/dL 05/21/2016 Lipid Ord30 C/HDL 4.9 Ratio 05/21/2016 B12 Hqx232 B12 159.00 pg/ml 05/21/2016 %Hba1C Fsl676 % HbA1c 64778- 6 7.5 % 05/21/2016 %Hba1C Had989 Gluc Ave 169 mg/dL 05/21/2016 Folate Ord36 Folate >23.80 ng/mL 05/21/2016 Free T4 Cdh939 FREE T4 1.03 ng/dL 05/21/2016 CHEM 14 2655477 AST 33 U/L 03/15/2016 CHEM 14 9711802 ALT 13 U/L 03/15/2016 CHEM 14 1977738 BUN 18 mg/dL 03/15/2016 CHEM 14 5372249 ALBUMIN 3.9 g/dL 03/15/2016 CHEM 14 1599252 CHLORIDE 105 mmol/L 03/15/2016 CHEM 14 7220356 Bili Total 0.4 mg/dL 03/15/2016 CHEM 14 7053941 ALK PHOS 60 U/L 03/15/2016 CHEM 14 2564644 SODIUM 138 mmol/L 03/15/2016 CHEM 14 2295174 CREATININE 0.99 mg/dL 03/15/2016 CHEM 14 0091410 CALCIUM 9.4 mg/dL 03/15/2016 CHEM 14 2626210 POTASSIUM 3.8 mmol/L 03/15/2016 CHEM 14 2553001 TOTAL PROTEIN 6.7 g/dL 03/15/2016 CHEM 14 6155894 GLUCOSE 109 mg/dL 03/15/2016 CHEM 14 7046961 Bicarbonate 27 mmol/L 03/15/2016 CHEM 14 1036298 AGAP 6 mmol/L 03/15/2016 GFR CALC 2975562 GFR Non Afr Amr 54 mL/min 03/15/2016 GFR CALC 6151044 GFR Afr Amr >60 mL/min 03/15/2016 B12 Hun176 B12 46.00 pg/ml 08/07/2015 Iron Ord72 Iron [...] Ord2 RDW 16.6 % 08/05/2015 Free T4 Dka342 FREE T4 1.33 ng/dL 08/05/2015 Comp Metabolic Qko046 NA 137 mEq/L 08/05/2015 Comp Metabolic Rkg031 K 4.5 mEq/L 08/05/2015 Comp Metabolic Trl435 CL 104 mEq/L 08/05/2015 Comp Metabolic Fuy973 CO2 26.0 mEq/L 08/05/2015 Comp Metabolic Ttd871 ANION GAP 12 08/05/2015 Comp Metabolic Owv441 GLUCOSE 146 mg/dL 08/05/2015 Comp Metabolic Yss304 Creat 1.0 mg/dL 08/05/2015 Comp Metabolic Cgc027 eGFR 56 ml/min/1.73m2 08/05/2015 Comp Metabolic Ewo195 BUN 23 mg/dL 08/05/2015 Comp Metabolic Mls739 B/C Ratio 22.8 Ratio 08/05/2015 Comp Metabolic Kds633 CALCIUM 9.3 mg/dL 08/05/2015 Comp Metabolic Rsg258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
--- OUTSIDE RECORDS SUMMARY | 2019-01-23 08:24 | XMS REPORT | CCD ---
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 uIU/mL 05/21/2016 Lipid Ord30 CHOL 212 mg/dL 05/21/2016 Lipid Ord30 HDL 43.0 mg/dl 05/21/2016 Lipid Ord30 TRIG 164 mg/dL 05/21/2016 Lipid Ord30 LDL 136 mg/dL 05/21/2016 Lipid Ord30 C/HDL 4.9 Ratio 05/21/2016 B12 Plj260 B12 159.00 pg/ml 05/21/2016 %Hba1C Igg127 % HbA1c 40845- 6 7.5 % 05/21/2016 %Hba1C Zxl371 Gluc Ave 169 mg/dL 05/21/2016 Folate Ord36 Folate >23.80 ng/mL 05/21/2016 Free T4 Fhz730 FREE T4 1.03 ng/dL 05/21/2016 CHEM 14 6347274 AST 33 U/L 03/15/2016 CHEM 14 6537924 ALT 13 U/L 03/15/2016 CHEM 14 6654951 BUN 18 mg/dL 03/15/2016 CHEM 14 7531769 ALBUMIN 3.9 g/dL 03/15/2016 CHEM 14 6149481 CHLORIDE 105 mmol/L 03/15/2016 CHEM 14 1606791 Bili Total 0.4 mg/dL 03/15/2016 CHEM 14 6109425 ALK PHOS 60 U/L 03/15/2016 CHEM 14 6565408 SODIUM 138 mmol/L 03/15/2016 CHEM 14 6481080 CREATININE 0.99 mg/dL 03/15/2016 CHEM 14 3110672 CALCIUM 9.4 mg/dL 03/15/2016 CHEM 14 0978842 POTASSIUM 3.8 mmol/L 03/15/2016 CHEM 14 2602676 TOTAL PROTEIN 6.7 g/dL 03/15/2016 CHEM 14 8101262 GLUCOSE 109 mg/dL 03/15/2016 CHEM 14 3373040 Bicarbonate 27 mmol/L 03/15/2016 CHEM 14 6274281 AGAP 6 mmol/L 03/15/2016 GFR CALC 2630810 GFR Non Afr Amr 54 mL/min 03/15/2016 GFR CALC 8476066 GFR Afr Amr >60 mL/min 03/15/2016 B12 Dlg731 B12 46.00 pg/ml 08/07/2015 Iron Ord72 Iron [...] Ord2 RDW 16.6 % 08/05/2015 Free T4 Pph781 FREE T4 1.33 ng/dL 08/05/2015 Comp Metabolic Qns529 NA 137 mEq/L 08/05/2015 Comp Metabolic Ych857 K 4.5 mEq/L 08/05/2015 Comp Metabolic Cnj888 CL 104 mEq/L 08/05/2015 Comp Metabolic Xca930 CO2 26.0 mEq/L 08/05/2015 Comp Metabolic Vql061 ANION GAP 12 08/05/2015 Comp Metabolic Avq089 GLUCOSE 146 mg/dL 08/05/2015 Comp Metabolic Pps983 Creat 1.0 mg/dL 08/05/2015 Comp Metabolic Dzw377 eGFR 56 ml/min/1.73m2 08/05/2015 Comp Metabolic Iwa566 BUN 23 mg/dL 08/05/2015 Comp Metabolic Jgi920 B/C Ratio 22.8 Ratio 08/05/2015 Comp Metabolic Ruu984 CALCIUM 9.3 mg/dL 08/05/2015 Comp Metabolic Pyl537 ALK PHOS 71 U/L 08/05/2015 Comp Metabolic Qxy798 AST(SGOT) 33 U/L 08/05/2015 Comp Metabolic Cym660 ALT(SGPT) 15 U/L 08/05/2015 Comp Metabolic Sef801 BILI T 0.6 mg/dL 08/05/2015 Comp Metabolic Vdu165 ALBUMIN 3.9 g/dL 08/05/2015 Comp Metabolic Mhb488 TPRO 6.5 g/dL 08/05/2015 Comp Metabolic Crt614 GLOB 2.6 g/dL 08/05/2015 Comp Metabolic Yle257 A/G Ratio 1.5 Ratio 08/05/2015 Comp Metabolic Hcy797 Osmo 280 mOsmo 08/05/2015 Tsh Ord6 hTSH II 0.36 uIU/mL 08/05/2015 %Hba1C Joq039 % HbA1c 09478- 6 8.1 % 08/05/2015 %Hba1C Zjo624 Gluc Ave 186 mg/dL 08/05/2015 Free T4 Rkv609 FREE T4 0.91 ng/dL 04/11/2015 %Hba1C Dur989 % HbA1c 01239- 6 8.3 % 04/10/2015 %Hba1C Pdi374 Gluc Ave 192 mg/dL 04/10/2015 Cbc With [...] Ord2 RDW 15.8 % 04/10/2015 Comp Metabolic Wiy639 NA 134 mEq/L 04/10/2015 Comp Metabolic Eod220 K 4.1 mEq/L 04/10/2015 Comp Metabolic Hpz484 CL 105 mEq/L 04/10/2015 Comp Metabolic Txx316 CO2 26.0 mEq/L 04/10/2015 Comp Metabolic Aqk429 ANION GAP 7 04/10/2015 Comp Metabolic Ysu275 GLUCOSE 126 mg/dL 04/10/2015 Comp Metabolic Vlw159 Creat 1.0 mg/dL 04/10/2015 Comp Metabolic Bpv836 eGFR 58 ml/min/1.73m2 04/10/2015 Comp Metabolic Yti166 BUN 29 mg/dL 04/10/2015 Comp Metabolic Aok718 B/C Ratio 29.6 Ratio 04/10/2015 Comp Metabolic Lkf935 CALCIUM 9.3 mg/dL 04/10/2015 Comp Metabolic Nec190 ALK PHOS 63 U/L 04/10/2015 Comp Metabolic Rir684 AST(SGOT) 31 U/L 04/10/2015 Comp Metabolic Fqo804 ALT(SGPT) 14 U/L 04/10/2015 Comp Metabolic Tqc996 BILI T 0.6 mg/dL 04/10/2015 Comp Metabolic Rhy746 ALBUMIN 3.9 g/dL 04/10/2015 Comp Metabolic Iai679 TPRO 6.3 g/dL 04/10/2015 Comp Metabolic Hqn967 GLOB 2.4 g/dL 04/10/2015 Comp Metabolic Ygp006 A/G Ratio 1.6 Ratio 04/10/2015 Comp Metabolic Jlk241 Osmo 276 mOsmo 04/10/2015 Tsh Ord6 hTSH II 6.71 uIU/mL 04/10/2015 Review of Systems System Result Effective Dates Constitutional No recent illness 11/23/2018 Constitutional No [...] Result Effective Dates Notes Full Exam - Dermatology Constitutional general appearance [...] normal 01/12/2018 None Full Exam - General 1995 Ears/Nose/Throat lips/teeth/gingiva Overall: benign lips 01/12/2018 None [...] - General 1995 Ears/Nose/Throat oral cavity/pharynx/larynx Overall: oropharyngeal mucosa clear [...] Date GLUC MONITOR CONT PHYS I&R CPT-4: 51064 06/05/2018 GLUCOSE MONITORING CONT CPT-4: 70561 05/22/2018 THER/PROPH/DIAG INJ SC/IM CPT-4: 84456 01/12/2018 VITAMIN B12 INJECTION CPT- 4: J3420 01/12/2018 THER/PROPH/DIAG INJ SC/IM CPT-4: 96320 09/15/2017 VITAMIN B12 INJECTION CPT- 4: J3420 09/15/2017 THER/PROPH/DIAG INJ SC/IM CPT-4: 76867 08/17/2017 VITAMIN B12 INJECTION CPT- 4: J3420 08/17/2017 THER/PROPH/DIAG INJ SC/IM CPT-4: 07411 07/19/2017 VITAMIN B12 INJECTION CPT- 4: J3420 07/19/2017 THER/PROPH/DIAG INJ SC/IM CPT-4: 26874 05/19/2017 VITAMIN B12 INJECTION CPT- 4: J3420 05/19/2017 THER/PROPH/DIAG INJ SC/IM CPT-4: 86801 04/06/2017 VITAMIN B12 INJECTION CPT- 4: J3420 04/06/2017 THER/PROPH/DIAG INJ SC/IM CPT-4: 10884 01/04/2017 VITAMIN B12 INJECTION CPT- 4: J3420 01/04/2017 THER/PROPH/DIAG INJ SC/IM CPT-4: 45217 12/10/2016 VITAMIN B12 INJECTION CPT- 4: J3420 12/10/2016 THER/PROPH/DIAG INJ SC/IM CPT-4: 87283 10/13/2016 TRIAMCINOLONE ACET INJ NOS CPT-4: J3301 10/13/2016 THER/PROPH/DIAG INJ SC/IM CPT-4: 07649 09/03/2016 VITAMIN B12 INJECTION CPT- 4: J3420 09/03/2016 THER/PROPH/DIAG INJ SC/IM CPT-4: 66878 07/29/2016 VITAMIN B12 INJECTION CPT- 4: J3420 07/29/2016 THER/PROPH/DIAG INJ SC/IM CPT-4: 21696 06/03/2016 VITAMIN B12 INJECTION CPT- 4: J3420 06/03/2016 PNEUMOCOCCAL VACC [address]: 84192608 CPT-4: 52541 04/22/2016 ADMIN PNEUMOCOCCAL VACCINE SNOMED CT: 71064340 CPT-4: G0009 04/22/2016 VITAMIN B12 INJECTION CPT- 4: J3420 09/15/2015 THER/PROPH/DIAG INJ SC/IM CPT-4: 11593 09/15/2015 THER/PROPH/DIAG INJ SC/IM CPT-4: 93141 09/08/2015 VITAMIN B12 INJECTION CPT- 4: J3420 09/08/2015 THER/PROPH/DIAG INJ SC/IM CPT-4: 63549 09/01/2015 VITAMIN B12 INJECTION CPT- 4: J3420 09/01/2015 THER/PROPH/DIAG INJ SC/IM CPT-4: 21621 08/25/2015 VITAMIN B12 INJECTION CPT- 4: J3420 08/25/2015 Vital Signs Date Vital 11/23/2018 BMI: 41.4 Code: 06098-5 Height: 4'11" Weight: 205 lbs 08/15/2018 Blood Pressure 1: 144/70 Code: 8480-6 BMI: 40.8 Code: 44583-9 Heart Rate 1: 83 bpm Height: 4'11" SpO2: 97% Weight: 202 lbs 06/05/2018 Blood Pressure 1: 132/70 Code: 8480-6 BMI: 41.6 Code: 11612-4 Heart Rate 1: 70 bpm Height: 4'11" SpO2: 96% Weight: 206 lbs 05/22/2018 Blood Pressure 1: 148/72 Code: 8480-6 BMI: 41.6 Code: 27727-0 Heart Rate 1: 82 bpm Height: 4'11" SpO2: 95% Weight: 206 lbs 05/15/2018 Blood Pressure 1: 140/80 Code: 8480-6 BMI: 41.6 Code: 29106-7 Heart Rate 1: 86 bpm Height: 4'11" SpO2: 92% Weight: 206 lbs 01/12/2018 Blood Pressure 1: 140/78 Code: 8480-6 BMI: 42.2 Code: 36656-6 Heart Rate 1: 73 bpm Height: 4'11" SpO2: 97% Weight: 209 lbs 11/25/2017 Blood Pressure 1: 140/68 Code: 8480-6 BMI: 42.2 Code: 12228-0 Heart Rate 1: 76 bpm Height: 4'11" SpO2: 94% Weight: 209 lbs 09/15/2017 Blood Pressure 1: 146/67 Code: 8480-6 BMI: 42.2 Code: 07438-5 Heart Rate 1: 69 bpm Height: 4'11" SpO2: 97% Weight: 209 lbs 08/17/2017 Blood Pressure 1: 144/70 Code: 8480-6 BMI: 41.8 Code: 67558-0 Heart Rate 1: 63 bpm Height: 4'11" SpO2: 97% Weight: 207 lbs 07/19/2017 Blood Pressure 1: 142/74 Code: 8480-6 BMI: 41.4 Code: 06421-7 Heart Rate 1: 71 bpm Height: 4'11" SpO2: 96% Weight: 205 lbs 05/19/2017 Blood Pressure 1: 148/76 Code: 8480-6 BMI: 42.8 Code: 43611-4 Heart Rate 1: 72 bpm Height: 4'11" SpO2: 94% Weight: 212 lbs 02/15/2017 Blood Pressure 1: 154/70 Code: 8480-6 BMI: 42.5 Code: 10952-1 Heart Rate 1: 68 bpm Height: 4'11" SpO2: 97% Weight: 210 lbs 8 oz 11/16/2016 Blood Pressure 1: 142/78 Code: 8480-6 BMI: 41.6 Code: 51280-3 Heart Rate 1: 68 bpm Height: 4'11" SpO2: 95% Temperature: 36.0 (C) / 96.8 (F) Weight: 206 lbs 08/19/2016 Blood Pressure 1: 120/74 Code: 8480-6 BMI: 41.6 Code: 83132-2 Heart Rate 1: 75 bpm Height: 4'11" SpO2: 95% Weight: 206 lbs 07/15/2016 Blood Pressure 1: 140/76 Code: 8480-6 BMI: 42.0 Code: 97346-0 Heart Rate 1: 76 bpm Height: 4'11" SpO2: 96% Weight: 208 lbs 06/03/2016 Blood Pressure 1: 130/78 Code: 8480-6 BMI: 42.8 Code: 44059-9 Heart Rate 1: 72 bpm Height: 4'11" SpO2: 98% Weight: 212 lbs 04/22/2016 Blood Pressure 1: 142/84 Code: 8480-6 BMI: 41.8 Code: 13178-2 Heart Rate 1: 86 bpm Height: 4'11" SpO2: 92% Weight: 207 lbs 01/22/2016 Blood Pressure 1: 162/64 Code: 8480-6 BMI: 41.2 Code: 51739-9 Heart Rate 1: 70 bpm Height: 4'11" SpO2: 97% Weight: 204 lbs 10/23/2015 Blood Pressure 1: 130/70 Code: 8480-6 BMI: 40.4 Code: 97310-2 Heart Rate 1: 72 bpm Height: 4'11" SpO2: 95% Weight: 200 lbs 09/12/2015 Blood Pressure 1: 142/62 Code: 8480-6 BMI: 39.4 Code: 03916-1 Heart Rate 1: 63 bpm Height: 4'11" SpO2: 96% Weight: 195 lbs 08/05/2015 Blood Pressure 1: 144/60 Code: 8480-6 BMI: 41.0 Code: 43680-9 Heart Rate 1: 92 bpm Height: 4'11" SpO2: 90% SpO2: 97% Weight: 203 lbs 04/03/2015 Blood Pressure 1: 142/68 Code: 8480-6 BMI: 40.6 Code: 67884-5 Heart Rate 1: 77 bpm Height: 4'11" SpO2: 95% Weight: 201 lbs 01/30/2015 Blood Pressure 1: 150/72 Code: 8480-6 BMI: 40.2 Code: 36159-3 Heart Rate 1: 64 bpm Height: 4'11" Weight: 199 lbs 01/02/2015 Blood Pressure 1: 136/72 Code: 8480-6 BMI: 39.8 Code: 97981-5 Heart Rate 1: 68 bpm Height: 4'11" Weight: 197 lbs Functional Status No Functional Status data History of Present Illness Symptom Name Status Result Effective Date Notes Location-Extremities on the left thigh 11/23/2018 None [...] data Encounters Encounter Performer Location Codes Date 48776 EST. PATIENT, LEVEL III Diagnosis: Burn of second degree of left thigh, initial encounter[ICD10: T24.212A] Chasity Knox MD, [facility] CPT-4: 75523 11/23/2018 ([id number]) 75970 EST. PATIENT, LEVEL IV Diagnosis: Type 2 diabetes mellitus with hyperglycemia[ICD10: E11.65] Diagnosis: Essential (primary) hypertension[ICD10: I10] Diagnosis: Chronic kidney disease, stage 3 (moderate)[ICD10: N18.3] Diagnosis: Low back pain[ICD10: M54.5] Giselle Knox MD, [facility] CPT-4: 46375 08/15/2018 [id number]) 38228 EST. PATIENT, LEVEL III Diagnosis: Type 2 diabetes mellitus with hyperglycemia[ICD10: E11.65] Giselle Knox MD, [facility] CPT-4: 27645 06/05/2018 ([id number]) Miscellaneous no charge Diagnosis: Type 2 diabetes mellitus with hyperglycemia[ICD10: E11.65] Jennifer Knox MD, [facility] CPT-4: 66991 05/29/2018 ([id number]) 64914 EST. PATIENT, LEVEL IV Diagnosis: Type 2 diabetes mellitus with hyperglycemia[ICD10: E11.65] Diagnosis: Essential (primary) hypertension[ICD10: I10] Diagnosis: Hypothyroidism, unspecified[ICD10: E03.9] Giselle Knox MD, [facility] CPT-4: 06526 05/15/2018 ([id number]) 70697 EST. PATIENT, LEVEL IV Diagnosis: Essential (primary) hypertension[ICD10: I10] Diagnosis: Type 2 diabetes mellitus with hyperglycemia[ICD10: E11.65] Diagnosis: Hypothyroidism, unspecified[ICD10: E03.9] Diagnosis: Spinal stenosis, lumbar region without neurogenic claudication[ICD10: M48.061] Diagnosis: Vitamin B12 deficiency anemia due to intrinsic factor deficiency[ICD10: D51.0] Giselle Knox MD, [facility] CPT-4: 85457 01/12/2018 ([id number]) 46395 EST. PATIENT, LEVEL IV Diagnosis: Varicose veins of bilateral lower extremities with pain[ICD10: I83.813] Diagnosis: Low back pain[ICD10: M54.5] Diagnosis: Hypothyroidism, unspecified[ICD10: E03.9] Diagnosis: Type 2 diabetes mellitus with hyperglycemia[ICD10: E11.65] Giselle Knox MD, [facility] CPT-4: 97686 11/25/2017 31956 EST. PATIENT, LEVEL IV Diagnosis: Localized edema[ICD10: R60.0] Diagnosis: Vitamin B12 deficiency anemia due to intrinsic factor deficiency[ICD10: D51.0] Chasity Knox MD, [facility] CPT-4: 90882 09/15/2017 49739 EST. PATIENT, LEVEL IV Diagnosis: Essential (primary) hypertension[ICD10: I10] Diagnosis: Type 2 diabetes mellitus with hyperglycemia[ICD10: E11.65] Diagnosis: Vitamin B12 deficiency anemia due to intrinsic factor deficiency[ICD10: D51.0] Chasity Knox MD, [facility] CPT-4: 87875 08/17/2017 97308 EST. PATIENT, LEVEL IV Diagnosis: Type 2 diabetes mellitus with hyperglycemia[ICD10: E11.65] Diagnosis: Essential (primary) hypertension[ICD10: I10] Diagnosis: Vitamin B12 deficiency anemia due to intrinsic factor deficiency[ICD10: D51.0] Chasity Knox MD, [facility] CPT-4: 03060 07/19/2017 ([id number]) 07301 EST. PATIENT, LEVEL IV Diagnosis: Essential (primary) hypertension[ICD10: I10] Diagnosis: Type 2 diabetes mellitus with hyperglycemia[ICD10: E11.65] Diagnosis: Hypothyroidism, unspecified[ICD10: E03.9] Diagnosis: Vitamin B12 deficiency anemia due to intrinsic factor deficiency[ICD10: D51.0] Diagnosis: Chronic kidney disease, stage 3 (moderate)[ICD10: N18.3] Giselle Knox MD, [facility] CPT-4: 07231 05/19/2017 ([id number]) 71757 EST. PATIENT, LEVEL IV Diagnosis: Essential (primary) hypertension[ICD10: I10] Diagnosis: Type 2 diabetes mellitus with hyperglycemia[ICD10: E11.65] Diagnosis: Hypothyroidism, unspecified[ICD10: E03.9] Giselle Knox MD, [facility] CPT-4: 92525 02/15/2017 ([id number]) 00041 EST. PATIENT, LEVEL IV Diagnosis: Type 2 diabetes mellitus with hyperglycemia[ICD10: E11.65] Diagnosis: Cough[ICD10: R05] Diagnosis: Acute upper respiratory infection, unspecified[ICD10: J06.9] Diagnosis: Hypothyroidism, unspecified[ICD10: E03.9] Diagnosis: Chronic kidney disease, stage 3 (moderate)[ICD10: N18.3] Giselle Knox MD, [facility] CPT-4: 37203 11/16/2016 ([id number]) 20699 EST. PATIENT, LEVEL IV Diagnosis: Type 2 diabetes mellitus with hyperglycemia[ICD10: E11.65] Diagnosis: Hypothyroidism, unspecified[ICD10: E03.9] Diagnosis: Essential (primary) hypertension[ICD10: I10] Giselle Knox MD, [facility] CPT-4: 49702 08/19/2016 ([id number]) 47932 EST. PATIENT, LEVEL III Diagnosis: Type 2 diabetes mellitus with hyperglycemia[ICD10: E11.65] Giselle Knox MD, [facility] CPT-4: 49735 07/15/2016 ([id number]) 71566 EST. PATIENT, LEVEL IV Diagnosis: Type 2 diabetes mellitus with hyperglycemia[ICD10: E11.65] Diagnosis: Atrophy of thyroid (acquired)[ICD10: E03.4] Diagnosis: Vitamin B12 deficiency anemia due to intrinsic factor deficiency[ICD10: D51.0] Diagnosis: Chronic kidney disease, stage 3 (moderate)[ICD10: N18.3] Diagnosis: Essential (primary) hypertension[ICD10: I10] Jennifer Knox MD, [facility] CPT-4: 74949 06/03/2016 ([id number]) 07602 EST. PATIENT, LEVEL III Diagnosis: Type 2 diabetes mellitus with hyperglycemia[ICD10: E11.65] Diagnosis: Essential (primary) hypertension[ICD10: I10] Diagnosis: Chronic kidney disease, stage 3 (moderate)[ICD10: N18.3] Diagnosis: VACCIN STREP PNEUMONIAE[ICD10: Z23] Giselle Knox MD, [facility] CPT-4: 18289 04/22/2016 08706 EST. PATIENT, LEVEL IV Diagnosis: Type 2 diabetes mellitus with hyperglycemia[ICD10: E11.65] Diagnosis: Essential (primary) hypertension[ICD10: I10] Chasity Knox MD, [facility] CPT-4: 94382 01/22/2016 ([id number]) 71444 EST. PATIENT, LEVEL III Diagnosis: Type 2 diabetes mellitus with hyperglycemia[ICD10: E11.65] Diagnosis: Essential (primary) hypertension[ICD10: I10] Giselle Knox MD, [facility] CPT-4: 68735 10/23/2015 09142 EST. PATIENT, LEVEL IV Diagnosis: Type 2 diabetes mellitus with hyperglycemia[ICD10: E11.65] Diagnosis: Vitamin B12 deficiency anemia due to intrinsic factor deficiency[ICD10: D51.0] Diagnosis: Essential (primary) hypertension[ICD10: I10] Chasity Knox MD, [facility] CPT-4: 94257 09/12/2015 ([id number]) 40829 EST. PATIENT, LEVEL IV Diagnosis: Essential (primary) hypertension[ICD10: I10] Diagnosis: Type 2 diabetes mellitus with hyperglycemia[ICD10: E11.65] Diagnosis: Hypothyroidism, unspecified[ICD10: E03.9] Giselle Knox MD, [facility] CPT-4: 10142 08/05/2015 [id number]) 36415 EST. PATIENT, LEVEL III Diagnosis: ESSENTIAL HYPERTENSION[ICD9: 401.9] Diagnosis: DIABETES TYPE II[ICD9: 250.00] Jennifer Knox MD, [facility] CPT-4: 83000 04/03/2015 [id number]) 60943 EST. PATIENT, LEVEL IV Diagnosis: ESSENTIAL HYPERTENSION[ICD9: 401.9] Diagnosis: DIABETES TYPE II[ICD9: 250.00] Diagnosis: Hypothyroidism[ICD9: 244.9] Giselle Knox MD, [facility] CPT-4: 48523 01/30/2015 ([id number]) OFFICE VISIT, NEW - LEVEL 4 Diagnosis: ESSENTIAL HYPERTENSION[ICD9: 401.9] Diagnosis: DIABETES TYPE II[ICD9: 250.00] Diagnosis: Impacted cerumen[ICD9: 380.4] Jennifer Knox MD, [facility] CPT-4: 53578 01/02/2015 Plan of Care Planned Activity Notes Codes Status Date Visit Plan: Burn left thigh - The patient was instructed in appropriate wound care. The patient was instructed to use the ointment as per RX. The patient is to call for any change in symptoms, increase in size of the lesion, increase in pain, worsening redness, warmth, discharge. 11/23/2018 Appointment: Chasity Caldwell WPtel: [address] [place], [place] [phone] (30 min) [facility] 11/23/2018 Patient Education: Patient Medication Summary [...] time. 08/15/2018 Appointment: Giselle Mccoy WPtel: [phone] [phone] (30 min) Complex 08/15/2018 Patient Education: Patient [...] plan. 06/05/2018 Appointment: Giselle Mccoy WPtel: [phone] [phone] (15 min) Moderate 06/05/2018 Patient Education: Patient [...] IPRO. 05/22/2018 Appointment: Giselle Mccoy WPtel: [phone] [phone] (30 min) Complex 05/22/2018 Patient Education: Patient [...] of control. 05/15/2018 Appointment: Giselle Mccoy WPtel: [phone] [phone] (15 min) Moderate 05/15/2018 Patient Education: Patient [...] evaluation-recommend PT 01/12/2018 [phone] [facility] Complex 01/12/2018 Patient Education: Patient Medication Summary Completed 01/12/2018 Care Plan: Referral Order SNOMED-CT : [id number] Pending 01/12/2018 Visit Plan: Varicose veins-rx for compression stockings provided and instructed on use Low back pain-recommend xray lumbar spine Hypothyroidism- check labs DM-check Hgb A1c 11/25/2017 Appointment: Giselle Mccoy WPtel: [phone] [phone] [place] (30 min) Complex 11/25/2017 Patient Education: Patient Medication Summary Completed 11/25/2017 Care Plan: X-RAY EXAM L-S SPINE 2/3 VWS LOINC : 87489-3 Pending 11/25/2017 Visit Plan: Edema - Left [...] concerns. 09/15/2017 App[facility]ment[phone] [phone] [place] (30 min) Complex 09/15/2017 Patient [...] glucose control. 08/17/2017 App[facility]ment[facility] [phone] [facility] [place] (15 min) Moderate 08/17/2017 Patient [...] at home. 07/19/2017 Appointment: [phone] [phone] (15 min) Moderate 07/19/2017 Patient Education: Patient Medication Summary Completed 07/19/2017 [phone] ([facility] min[facility] Moderate 06/13/2017 Visit Plan: [...] medications. 05/19/2017 Appointment: Giselle Mccoy WPtel: [phone] [phone] (30 min) Complex 05/19/2017 Patient Education: [...] control. 02/15/2017 Appointment: Giselle Mccoy WPtel: [phone] [phone] (15 min) Moderate 02/15/2017 Patient Education: Patient [...] today 11/16/2016 Appointment: [facility] [phone] [phone] [place] (15 min) Moderate 11/16/2016 Patient [...] control. 08/19/2016 Appointment: [facility] [phone] [phone] [place] (15 min) Moderate 08/19/2016 Patient Education: Patient Medication Summary Completed 08/19/2016 Patient Education: Obesity Completed 08/19/2016 Care Plan: Tsh Cancelled 08/19/2016 Care Plan: %Hba1C LOINC : 26035-7 Cancelled 08/19/2016 Care Plan: Lipid Cancelled 08/19/2016 Care Plan: Free T4 patient coming back next week Cancelled 08/19/2016 Appointment: Injection 07/29/2016 Patient Education: Patient Medication Summary Completed 07/29/2016 Appointment: Giselle Mccoy WPtel: [phone] [phone] (30 min) Complex 07/22/2016 Visit Plan: Diabetes-having hypoglycemia in the mornings-insulin adjusted-patient and verbalized understanding of plan. Follow up in 1 month-call sooner if still having low blood sugars. Sinus congestion-start claritin 07/15/2016 Appointment: Giselle Mccoy WPtel: [phone] [phone] (30 min) Complex 07/15/2016 Patient Education: [...] of control. 06/03/2016 Appointment: Jennifer Knox WPtel: [facility] [place] (15 min) Moderate 06/03/2016 Patient [...] 1 MONTH 04/22/2016 Appointment: Giselle Mccoy WPtel: [address] [place] [phone] (15 min) Moderate 04/22/2016 Patient Education: Patient [...] if needed. 01/02/2015 Appointment: Jennifer Knox WPtel: [address] [place] [address] [place] (S) New Patient 01/02/2015 Patient Education: Patient Medication Summary Completed 01/02/2015 Patient Education: Hypertension Completed 01/02/2015 Referral: Tom Pike Referral Appointment Requested Instructions Comment Increase morning insulin to 18 units 'Decrease [...] FOR REPEAT HGB A1C IN 1 MONTH COME BACK NEXT WEEK FOR BLOOD WORK [...] FOR REPEAT HGB A1C IN 1 MONTH COME BACK NEXT WEEK FASTING . Diabetes [...] levels of control. . Diabetes Mellitus - rts. I have [...] in 1 week for removal of IPRO. BRING YOUR BLOOD SUGAR LOG TO YOUR [...] are starting to become less controlled. . Burn left thigh - The patient was instructed in appropriate wound care. The patient was instructed to use the ointment as per RX. The patient is to call for any change in symptoms, increase in size of the lesion, increase in pain, worsening redness, warmth, discharge. . DM-patient here to discuss IPRO results [...] Patient and verbalized understanding of plan. . Hypertension - well controlled - continue [...] based on previous levels of control. . Edema - Left greater than right [...] ER with any acute changes or concerns. EAT A PROTEIN SNACK BEFORE BED CHECK [...] response to medications. . Diabetes Mellitus - I have recommended [...] to Dr Pike/Dr Lozada for evaluation-recommend PT DECREASE NOVOLIN 70/30 18 UNITS IN THE [...] having low blood sugars. Sinus congestion-start claritin zpack anti histamine such as zyrtec daily [...] of control. Chronic renal disease-check labs today decrease terazosin to 1/2 pill daily use [...] a month and flush ears if needed. CHECK LABS WITH NEXT APPOINTMENT . Hypertension [...] in blood pressure readings at home. . Hypertension - well controlled - continue [...]
--- OUTSIDE RECORDS SUMMARY | 2019-01-23 08:32 | XMS REPORT | CCD ---
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 Name Role Phone PP Unavailable CCM Unavailable Summary Purpose Interface Exchange Insurance Providers Payer name Policy type / Coverage type Covered constitution party ID Effective Begin Date Effective End Date [facility] Commercial Insurance [id number] Unknown Family history Runs in the family Diagnosis Age At Onset Hypertension Unknown Social History Social History Element Codes Description Effective Dates Marital status Unknown eddie 01/02/2015 Number of children Unknown 3 01/02/2015 Employment Unknown Retired [email or web address] 01/02/2015 Allergies, Adverse Reactions, Alerts Allergies, Adverse Reactions, Alerts data not found Past Medical History Illness Codes Condition Status Onset Date Resolved Date Vitamin B12 deficiency anemia due to intrinsic factor deficiency ICD-9: 281.0 ICD-10: D51.0 Active 07/28/2016 Unknown Acute upper respiratory infection, unspecified ICD-9: 465.9 ICD-10: J06.9 Active 11/16/2016 Unknown Chronic kidney disease, stage 3 (moderate) ICD-9: 585.3 ICD-10: N18.3 Active 06/02/2016 Unknown Cough ICD-9: 786.2 ICD-10: R05 Active 11/16/2016 Unknown Hypothyroidism, unspecified ICD-9: 244.9 ICD-10: E03.9 Active 08/19/2016 Unknown Type 2 diabetes mellitus with hyperglycemia ICD-9: 250.00 ICD-10: E11.65 Active 07/14/2016 Unknown Other vitamin B12 deficiency anemias ICD-9: 281.1 ICD-10: D51.8 Active 10/13/2016 Unknown Essential (primary) hypertension ICD-9: 401.9 ICD-10: I10 Active 01/01/2015 Unknown Atrophy of thyroid (acquired) ICD-9: 244.8 [...] unspecified ICD-9: 465.9 ICD-10: J06.9 11/16/2016 Active Chronic kidney disease, stage 3 (moderate) ICD-9: 585.3 ICD-10: N18.3 06/02/2016 Active Cough ICD-9: 786.2 ICD-10: R05 11/16/2016 Active Hypothyroidism, unspecified ICD-9: 244.9 ICD-10: E03.9 08/19/2016 Active Type 2 diabetes mellitus with hyperglycemia ICD-9: 250.00 ICD-10: E11.65 07/14/2016 Active Other vitamin B12 deficiency anemias ICD-9: 281.1 ICD-10: D51.8 10/13/2016 Active Essential (primary) hypertension ICD-9: 401.9 ICD-10: I10 01/01/2015 Active Atrophy of thyroid (acquired) ICD-9: 244.8 [...] Start Date Stop Date Status Fill Instructions cyanocobalamin (vit B-12) 1,000 mcg/mL injection solution RxNorm: 264809 Milliliter(s) Inj 01/04/2017 01/04/2017 Inactive Humulin 70/30 100 unit/mL subcutaneous suspension RxNorm: 528949 18 Unit(s) SQ QAM 12/22/2016 06/04/2017 Active cyanocobalamin (vit B-12) 1,000 mcg/mL injection solution RxNorm: 739147 1 Milliliter(s) Inj 12/10/2016 12/10/2016 Inactive Zithromax Z-Jose 250 mg tablet RxNorm: 688162 1 Tablet(s) PO UD 11/16/2016 11/20/2016 Inactive terazosin 2 mg capsule RxNorm: 565941 TAKE ONE CAPSULE BY MOUTH DAILY 11/08/2016 05/06/2017 Active Lantus Solostar 100 unit/mL (3 mL) subcutaneous insulin pen RxNorm: 392054 INJECT 35 UNITS UNDER THE SKIN EVERY NIGHT AT BEDTIME 10/22/2016 02/15/2019 Active cyanocobalamin (vit B-12) 1,000 mcg/mL injection solution RxNorm: 131733 Milliliter(s) Inj 10/13/2016 10/13/2016 Inactive cyanocobalamin (vit B-12) 1,000 mcg/mL injection solution RxNorm: 578040 1 Milliliter(s) Inj 09/03/2016 09/03/2016 Inactive Contour Test Strips RxNorm: TEST BLOOD SUGAR TWO TIMES A DAY E11.65 08/19/2016 04/10/2018 Active carvedilol 12.5 mg tablet RxNorm: 096121 TAKE ONE TABLET BY MOUTH TWICE A DAY 08/05/2016 01/01/2017 Inactive carvedilol 12.5 mg tablet RxNorm: 19990924 TAKE ONE TABLET BY MOUTH TWICE A DAY 08/05/2016 01/01/2017 Inactive carvedilol 12.5 mg tablet RxNorm: 306028 1 Tablet(s) PO BID 08/04/2016 01/30/2017 Active cyanocobalamin (vit B-12) 1,000 mcg/mL injection solution RxNorm: 664034 Milliliter(s) Inj 07/29/2016 07/29/2016 Inactive Lantus Solostar 100 unit/mL (3 mL) subcutaneous insulin pen RxNorm: 506855 30 Unit(s) SQ Q 07/15/2016 06/29/2019 Active Humulin 70/30 100 unit/mL subcutaneous suspension RxNorm: 943441 18 Unit(s) SQ QA 07/15/2016 12/21/2016 Inactive losartan 100 mg tablet RxNorm: 999481 TAKE ONE TABLET BY MOUTH DAILY 07/08/2016 06/02/2017 Active terazosin 2 mg capsule RxNorm: 526514 TAKE ONE CAPSULE BY MOUTH DAILY 06/10/2016 11/06/2016 Inactive cyanocobalamin (vit B-12) 1,000 mcg/mL injection solution RxNorm: 782524 1 Milliliter(s) Inj 06/03/2016 06/03/2016 Inactive Humulin 70/30 100 unit/mL subcutaneous suspension RxNorm: 927751 Unit(s) INJECT 10 UNITS UNDER THE SKIN 06/01/2016 07/14/2016 Inactive Request already responded to by other means (e.g. phone or fax) Humulin 70/30 100 unit/mL subcutaneous suspension RxNorm: 032383 INJECT 10 UNITS UNDER THE SKIN BEFORE MEALS 06/01/2016 05/31/2016 Inactive Request already responded to by other means (e.g. phone or fax) Lantus Solostar 100 unit/mL (3 mL) subcutaneous insulin pen RxNorm: 128805 35 Unit(s) SQ [facility] 05/26/2016 07/14/2016 Inactive Humulin 70/30 100 unit/mL subcutaneous suspension RxNorm: 022940 10 Unit(s) SQ [facility] 05/24/2016 10/02/2016 Inactive Humulin 70/30 100 unit/mL subcutaneous suspension RxNorm: 969114 21 Unit(s) SQ QA 05/24/2016 05/23/2016 Inactive Lantus Solostar 100 unit/mL (3 mL) subcutaneous insulin pen RxNorm: 138818 32 Unit(s) SQ Q 04/22/2016 05/25/2016 Inactive Humulin 70/30 100 unit/mL subcutaneous suspension RxNorm: 172397 21 Unit(s) SQ QA 04/22/2016 05/24/2016 Inactive with breakfast hydrochlorothiazide 25 mg tablet RxNorm: 949193 TAKE ONE TABLET BY MOUTH DAILY 02/04/2016 02/16/2016 Inactive terazosin 2 mg capsule RxNorm: 333072 Capsule(s) TAKE ONE CAPSULE BY MOUTH DAILY. 12/01/2015 05/28/2016 Inactive Humulin 70/30 100 unit/mL subcutaneous suspension RxNorm: 859888 INJECT 10 UNITS UNDER THE SKIN BEFORE MEALS 11/06/2015 03/16/2016 Inactive hydrochlorothiazide 25 mg tablet RxNorm: 474867 1 Tablet(s) PO daily 10/06/2015 02/02/2016 Inactive cyanocobalamin (vit B-12) 1,000 mcg/mL injection solution RxNorm: 215340 Milliliter(s) Inj 09/15/2015 09/15/2015 Inactive Humulin 70/30 100 unit/mL subcutaneous suspension RxNorm: 733649 INJECT 10 UNITS UNDER THE SKIN BEFORE MEALS 09/08/2015 10/10/2015 Inactive cyanocobalamin (vit B-12) 1,000 mcg/mL injection solution RxNorm: 054133 Milliliter(s) Inj 09/08/2015 09/08/2015 Inactive terazosin 2 mg capsule RxNorm: 080639 TAKE ONE CAPSULE BY MOUTH DAILY. DISCONTINUE 5 MG CAPSULES 09/01/2015 11/29/2015 Inactive cyanocobalamin (vit B-12) 1,000 mcg/mL injection solution RxNorm: 866703 Milliliter(s) Inj 09/01/2015 09/01/2015 Inactive cyanocobalamin (vit B-12) 1,000 mcg/mL injection solution RxNorm: 458340 Milliliter(s) Inj 08/25/2015 08/25/2015 Inactive levothyroxine 112 mcg tablet RxNorm: 849325 1 Tablet(s) PO daily 08/06/2015 12/03/2015 Inactive Lantus Solostar 100 unit/mL (3 mL) subcutaneous insulin pen RxNorm: 548048 35 Unit(s) SQ QHS 08/06/2015 04/21/2016 Inactive Humulin 70/30 100 unit/mL subcutaneous suspension RxNorm: 209694 20 Unit(s) SQ AC 08/05/2015 04/21/2016 Inactive with breakfast carvedilol 12.5 mg tablet RxNorm: 098386 1 Tablet(s) PO BID 08/05/2015 01/31/2016 Inactive Humulin 70/30 100 unit/mL subcutaneous suspension RxNorm: 716068 10 Unit(s) SQ AC 07/22/2015 08/04/2015 Inactive losartan 100 mg tablet RxNorm: 086104 TAKE ONE TABLET BY MOUTH DAILY 06/25/2015 06/18/2016 Inactive Lantus Solostar 100 unit/mL (3 mL) subcutaneous insulin pen RxNorm: 636855 30 Unit(s) SQ QHS 06/18/2015 08/05/2015 Inactive terazosin 2 mg capsule RxNorm: 370120 1 Capsule(s) PO daily 04/14/2015 08/11/2015 Inactive DC the 5mg order terazosin 2 mg capsule RxNorm: 676725 1 Capsule(s) PO daily 04/14/2015 04/13/2015 Inactive Synthroid 25 mcg tablet RxNorm: 346319 1 Tablet(s) PO daily 04/11/2015 10/07/2015 Inactive Synthroid 25 mcg tablet RxNorm: 957779 1 Tablet(s) PO daily 04/11/2015 04/10/2015 Inactive Lantus Solostar 100 unit/mL (3 mL) subcutaneous insulin pen RxNorm: 104835 30 Unit(s) SQ QHS 04/04/2015 06/17/2015 Inactive terazosin 5 mg tablet RxNorm: 053753 1 Tablet(s) PO daily 04/03/2015 04/13/2015 Inactive Lantus Solostar 100 unit/mL (3 mL) subcutaneous insulin pen RxNorm: 698017 25 Unit(s) SQ QHS 01/08/2015 04/03/2015 Inactive carvedilol 25 mg tablet RxNorm: 037751 1 Tablet(s) PO BID 01/02/2015 01/31/2015 Inactive terazosin 5 mg tablet RxNorm: 685323 1 Tablet(s) PO daily 01/02/2015 01/01/2015 Inactive levothyroxine 125 mcg tablet RxNorm: 651474 1 Tablet(s) PO daily 01/02/2015 01/31/2015 Inactive terazosin 5 mg tablet RxNorm: 206881 1/2 Tablet(s) PO daily 01/02/2015 01/31/2015 Inactive losartan 100 mg tablet RxNorm: 463626 1 Tablet(s) PO daily 12/24/2014 04/22/2015 Inactive losartan 100 mg tablet RxNorm: 404401 1 Tablet(s) PO daily 12/24/2014 12/23/2014 Inactive Contour Test Strips RxNorm: Miscellaneous test blood sugars BID 12/06/2014 12/05/2014 Inactive dx 250.00 Contour Test Strips RxNorm: Miscellaneous test blood sugars BID or UD 12/06/2014 06/23/2015 Inactive dx 250.00 [SAVINGS FOR NON-COVERED DRUGS -- BIN:[id number], PCN: [id number], Group: [id number], ID# [id number], Questions: . THIS IS NOT INSURANCE.] Microlet Lancet RxNorm: Miscellaneous Test BID or Ud No Start Date Active 250.0 cyanocobalamin (vit B-12) 100 mcg tablet RxNorm: 450136 1 Tablet(s) PO daily No Start Date Active hydrochlorothiazide 25 mg tablet RxNorm: 220638 1 Tablet(s) PO daily No Start Date 10/05/2015 Inactive Humulin 70/30 100 unit/mL subcutaneous suspension RxNorm: 166539 20 Unit(s) SQ QAM No Start Date 07/21/2015 Inactive Lantus Solostar 100 unit/mL (3 mL) subcutaneous insulin pen RxNorm: 414196 20 Unit(s) SQ QHS No Start Date 01/07/2015 Inactive Medication Administered Medication Codes Instructions Start Date Status cyanocobalamin (vit B-12) 1,000 mcg/mL injection solution RxNorm: 450462 Milliliter 01/04/2017 No longer Active cyanocobalamin (vit B-12) 1,000 mcg/mL injection solution RxNorm: 677903 1Milliliter 12/10/2016 No longer Active cyanocobalamin (vit B-12) 1,000 mcg/mL injection solution RxNorm: 544631 Milliliter 10/13/2016 No longer Active cyanocobalamin (vit B-12) 1,000 mcg/mL injection solution RxNorm: 376764 1Milliliter 09/03/2016 No longer Active cyanocobalamin (vit B-12) 1,000 mcg/mL injection solution RxNorm: 712163 Milliliter 07/29/2016 No longer Active cyanocobalamin (vit B-12) 1,000 mcg/mL injection solution RxNorm: 770016 1Milliliter 06/03/2016 No longer Active cyanocobalamin (vit B-12) 1,000 mcg/mL injection solution RxNorm: 726514 Milliliter 09/15/2015 No longer Active cyanocobalamin (vit B-12) 1,000 mcg/mL injection solution RxNorm: 705656 Milliliter 09/08/2015 No longer Active cyanocobalamin (vit B-12) 1,000 mcg/mL injection solution RxNorm: 674085 Milliliter 09/01/2015 No longer Active cyanocobalamin (vit B-12) 1,000 mcg/mL injection solution RxNorm: 416106 Milliliter 08/25/2015 No longer Active Immunizations Vaccine Codes Date Status Pneumococcal (Adult) CVX: 133 04/22/2016 completed Influenza CVX: 141 05/07/2015 completed Assessments Condition Codes Effective Dates Vitamin B12 deficiency anemia due to intrinsic factor deficiency ICD-10: D51.0 ICD-9: 281.0 01/04/2017 Hypothyroidism, unspecified ICD-10: E03.9 ICD-9: 244.9 11/16/2016 Cough ICD-10: R05 ICD-9: 786.2 11/16/2016 Acute upper respiratory infection, unspecified ICD-10: J06.9 ICD-9: 465.9 11/16/2016 Type 2 diabetes mellitus with hyperglycemia ICD-10: E11.65 ICD-9: 250.00 11/16/2016 Chronic kidney disease, stage 3 (moderate) ICD-10: N18.3 ICD-9: 585.3 11/16/2016 Other vitamin B12 deficiency anemias ICD-10: D51.8 ICD-9: 281.1 10/13/2016 Essential (primary) hypertension ICD-10: I10 ICD-9: 401.9 08/19/2016 Atrophy of thyroid (acquired) ICD-10: E03.4 ICD-9: 244.8 06/03/2016 VACCIN STREP PNEUMONIAE ICD-10: Z23 ICD-9: V03.82 04/22/2016 Anemia, unspecified ICD-10: D64.9 ICD-9: 285.9 08/06/2015 Hypothyroidism ICD-9: 244.9 04/11/2015 ESSENTIAL HYPERTENSION ICD-9: 401.9 04/03/2015 DIABETES TYPE II ICD-9: 250.00 04/03/2015 Impacted dougn ICD-9: 380.4 01/02/2015 Reason For Visit Reason For Visit Effective Dates Notes diabetes mellitus 11/16/2016 diabetes mellitus 08/19/2016 diabetes mellitus 07/15/2016 diabetes mellitus 06/03/2016 hypertension 04/22/2016 hypertension 01/22/2016 hypertension 10/23/2015 hypertension 09/12/2015 hypertension 08/05/2015 hypertension 04/03/2015 hypertension 01/30/2015 hypertension 01/02/2015 Results Observation Observation Code Item Item Code Result Date Cbc With Differential Ord2 WBC 6.80 K/ul [...] 29.3 pg 12/10/2016 Cbc With Differential Ord2 Maury% 7.1 % 12/10/2016 Cbc With Differential Ord2 [...] 2.50 K/ul 12/10/2016 Cbc With Differential Ord2 Maury ABS# 0.5 K/ul 12/10/2016 Cbc With Differential Ord2 Eos ABS# 0.1 K/ul 12/10/2016 Cbc With Differential Ord2 Baso ABS# 0.0 K/ul 12/10/2016 B12 Bdy908 B12 222.00 pg/ml 12/10/2016 %Hba1C Zgq111 % HbA1c 99714- 6 7.5 % 11/16/2016 %Hba1C Wkj837 Gluc Ave 169 mg/dL 11/16/2016 Free T4 Iea342 FREE T4 1.03 ng/dL 11/16/2016 Comp Metabolic Haf706 NA 138 mEq/L 11/16/2016 Comp Metabolic Hoz849 K 3.8 mEq/L 11/16/2016 Comp Metabolic Wwk422 CL 103 mEq/L 11/16/2016 Comp Metabolic Ynh595 CO2 26.0 mEq/L 11/16/2016 Comp Metabolic Enw688 ANION GAP 13 11/16/2016 Comp Metabolic Kun515 GLUCOSE 235 mg/dL 11/16/2016 Comp Metabolic Fyh416 Creat 0.9 mg/dL 11/16/2016 Comp Metabolic Otl160 eGFR 62 ml/min/1.73m2 11/16/2016 Comp Metabolic Ran164 BUN 20 mg/dL 11/16/2016 Comp Metabolic Ltu113 B/C Ratio 21.7 Ratio 11/16/2016 Comp Metabolic Ace272 CALCIUM 8.9 mg/dL 11/16/2016 Comp Metabolic Gmd276 ALK PHOS 75 U/L 11/16/2016 Comp Metabolic Fsd452 AST(SGOT) 30 U/L 11/16/2016 Comp Metabolic Jss759 ALT(SGPT) 13 U/L 11/16/2016 Comp Metabolic Osx695 BILI T 0.6 mg/dL 11/16/2016 Comp Metabolic Sya054 ALBUMIN 3.8 g/dL 11/16/2016 Comp Metabolic Jil678 TPRO 6.8 g/dL 11/16/2016 Comp Metabolic Anc582 GLOB 3.1 g/dL 11/16/2016 Comp Metabolic Yss445 A/G Ratio 1.2 Ratio 11/16/2016 Comp Metabolic Rze554 Osmo 286 mOsmo 11/16/2016 Tsh Ord6 hTSH II 2.50 uIU/mL 11/16/2016 Tsh Ord6 hTSH II 3.18 uIU/mL 05/21/2016 Lipid Ord30 CHOL 212 mg/dL 05/21/2016 Lipid Ord30 HDL 43.0 mg/dl 05/21/2016 Lipid Ord30 TRIG 164 mg/dL 05/21/2016 Lipid Ord30 LDL 136 mg/dL 05/21/2016 Lipid Ord30 C/HDL 4.9 Ratio 05/21/2016 B12 Mtd173 B12 159.00 pg/ml 05/21/2016 %Hba1C Ref201 % HbA1c 90006- 6 7.5 % 05/21/2016 %Hba1C Afi941 Gluc Ave 169 mg/dL 05/21/2016 Folate Ord36 Folate >23.80 ng/mL 05/21/2016 Free T4 Ztn118 FREE T4 1.03 ng/dL 05/21/2016 CHEM 14 5129465 AST 33 U/L 03/15/2016 CHEM 14 4634327 ALT 13 U/L 03/15/2016 CHEM 14 7292993 BUN 18 mg/dL 03/15/2016 CHEM 14 3281323 ALBUMIN 3.9 g/dL 03/15/2016 CHEM 14 8114684 CHLORIDE 105 mmol/L 03/15/2016 CHEM 14 8634336 Bili Total 0.4 mg/dL 03/15/2016 CHEM 14 5361433 ALK PHOS 60 U/L 03/15/2016 CHEM 14 9533198 SODIUM 138 mmol/L 03/15/2016 CHEM 14 1866774 CREATININE 0.99 mg/dL 03/15/2016 CHEM 14 1774090 CALCIUM 9.4 mg/dL 03/15/2016 CHEM 14 9534102 POTASSIUM 3.8 mmol/L 03/15/2016 CHEM 14 8042790 TOTAL PROTEIN 6.7 g/dL 03/15/2016 CHEM 14 9816244 GLUCOSE 109 mg/dL 03/15/2016 CHEM 14 8653196 Bicarbonate 27 mmol/L 03/15/2016 CHEM 14 3521259 AGAP 6 mmol/L 03/15/2016 GFR CALC 4332436 GFR Non Afr Amr 54 mL/min 03/15/2016 GFR CALC 5494647 GFR Afr Amr >60 mL/min 03/15/2016 B12 Pxe137 B12 46.00 pg/ml 08/07/2015 Iron Ord72 Iron [...] Ord2 RDW 16.6 % 08/05/2015 Free T4 Vkh878 FREE T4 1.33 ng/dL 08/05/2015 Comp Metabolic Rgq979 NA 137 mEq/L 08/05/2015 Comp Metabolic Ppu679 K 4.5 mEq/L 08/05/2015 Comp Metabolic Rqq246 CL 104 mEq/L 08/05/2015 Comp Metabolic Hzv882 CO2 26.0 mEq/L 08/05/2015 Comp Metabolic Txx493 ANION GAP 12 08/05/2015 Comp Metabolic Rvd015 GLUCOSE 146 mg/dL 08/05/2015 Comp Metabolic Zuk916 Creat 1.0 mg/dL 08/05/2015 Comp Metabolic Pgt885 eGFR 56 ml/min/1.73m2 08/05/2015 Comp Metabolic Pqu603 BUN 23 mg/dL 08/05/2015 Comp Metabolic Dma650 B/C Ratio 22.8 Ratio 08/05/2015 Comp Metabolic Zkm153 CALCIUM 9.3 mg/dL 08/05/2015 Comp Metabolic Nao546 ALK PHOS 71 U/L 08/05/2015 Comp Metabolic Csj806 AST(SGOT) 33 U/L 08/05/2015 Comp Metabolic Ibp178 ALT(SGPT) 15 U/L 08/05/2015 Comp Metabolic Ivy843 BILI T 0.6 mg/dL 08/05/2015 Comp Metabolic Hja168 ALBUMIN 3.9 g/dL 08/05/2015 Comp Metabolic Rde328 TPRO 6.5 g/dL 08/05/2015 Comp Metabolic Bsp400 GLOB 2.6 g/dL 08/05/2015 Comp Metabolic Ewo161 A/G Ratio 1.5 Ratio 08/05/2015 Comp Metabolic Ven455 Osmo 280 mOsmo 08/05/2015 Tsh Ord6 hTSH II 0.36 uIU/mL 08/05/2015 %Hba1C Uiy720 % HbA1c 22666- 6 8.1 % 08/05/2015 %Hba1C Tnz480 Gluc Ave 186 mg/dL 08/05/2015 Free T4 Gtk482 FREE T4 0.91 ng/dL 04/11/2015 %Hba1C Tfd511 % HbA1c 64201- 6 8.3 % 04/10/2015 %Hba1C Ncs135 Gluc Ave 192 mg/dL 04/10/2015 Cbc With [...] Ord2 RDW 15.8 % 04/10/2015 Comp Metabolic Nww208 NA 134 mEq/L 04/10/2015 Comp Metabolic Air519 K 4.1 mEq/L 04/10/2015 Comp Metabolic Pwt588 CL 105 mEq/L 04/10/2015 Comp Metabolic Rpj100 CO2 26.0 mEq/L 04/10/2015 Comp Metabolic Gcu066 ANION GAP 7 04/10/2015 Comp Metabolic Qun730 GLUCOSE 126 mg/dL 04/10/2015 Comp Metabolic Pfz983 Creat 1.0 mg/dL 04/10/2015 Comp Metabolic Bqz781 eGFR 58 ml/min/1.73m2 04/10/2015 Comp Metabolic Jud942 BUN 29 mg/dL 04/10/2015 Comp Metabolic Iqi837 B/C Ratio 29.6 Ratio 04/10/2015 Comp Metabolic Yvt684 CALCIUM 9.3 mg/dL 04/10/2015 Comp Metabolic Fgn016 ALK PHOS 63 U/L 04/10/2015 Comp Metabolic Cif828 AST(SGOT) 31 U/L 04/10/2015 Comp Metabolic Xnm282 ALT(SGPT) 14 U/L 04/10/2015 Comp Metabolic Xfq505 BILI T 0.6 mg/dL 04/10/2015 Comp Metabolic Kot317 ALBUMIN 3.9 g/dL 04/10/2015 Comp Metabolic Cub950 TPRO 6.3 g/dL 04/10/2015 Comp Metabolic Jqd083 GLOB 2.4 g/dL 04/10/2015 Comp Metabolic Udf841 A/G Ratio 1.6 Ratio 04/10/2015 Comp Metabolic Whp615 Osmo 276 mOsmo 04/10/2015 Tsh Ord6 hTSH II 6.71 uIU/mL 04/10/2015 Review of Systems System Result Effective Dates Constitutional recent illness 11/16/2016 Constitutional No anorexia [...] Procedure Codes Date THER/PROPH/DIAG INJ SC/IM CPT-4: 31737Fctgbxz 01/04/2017 VITAMIN B12 INJECTION CPT-4: J9592Umaztks 01/04/2017 THER/PROPH/DIAG INJ SC/IM CPT-4: 33987Kdqbpga 12/10/2016 VITAMIN B12 INJECTION CPT-4: N0459Jhqsjof 12/10/2016 THER/PROPH/DIAG INJ SC/IM CPT-4: 73005Kndtsox 10/13/2016 TRIAMCINOLONE ACET INJ NOS CPT-4: H1808Jasndcn 10/13/2016 THER/PROPH/DIAG INJ SC/IM CPT-4: 43157Xcwjdxg 09/03/2016 VITAMIN B12 INJECTION CPT-4: K8431Omldnbz 09/03/2016 THER/PROPH/DIAG INJ SC/IM CPT-4: 64853Rmskziu 07/29/2016 VITAMIN B12 INJECTION CPT-4: B7594Mutjpfi 07/29/2016 THER/PROPH/DIAG INJ SC/IM CPT-4: 45052Onghgfh 06/03/2016 VITAMIN B12 INJECTION CPT-4: S4164Uavcpdd 06/03/2016 PNEUMOCOCCAL VACC [address]: 56588256 CPT-4: 64790Wkohfte 04/22/2016 ADMIN PNEUMOCOCCAL VACCINE SNOMED CT: 26885920 CPT-4: D2037Szclafz 04/22/2016 VITAMIN B12 INJECTION CPT-4: A3948Wlxwgkm 09/15/2015 THER/PROPH/DIAG INJ SC/IM CPT-4: 51382Myiwlbb 09/15/2015 THER/PROPH/DIAG INJ SC/IM CPT-4: 09925Eepjaqu 09/08/2015 VITAMIN B12 INJECTION CPT-4: Y0751Vjrojsg 09/08/2015 THER/PROPH/DIAG INJ SC/IM CPT-4: 72246Zsizdot 09/01/2015 VITAMIN B12 INJECTION CPT-4: U0487Wzrqolv 09/01/2015 THER/PROPH/DIAG INJ SC/IM CPT-4: 43858Bayqrbi 08/25/2015 VITAMIN B12 INJECTION CPT-4: Y9385Duhvkvr 08/25/2015 Vital Signs Date Vital 11/16/2016 Blood Pressure 1: 142/78 Code: 8480-6 BMI: 41.6 Code: 90566-3 Heart Rate 1: 68 bpm Height: 4'11" SpO2: 95% Temperature: 36.0 (C) / 96.8 (F) Weight: 206 lbs 08/19/2016 Blood Pressure 1: 120/74 Code: 8480-6 BMI: 41.6 Code: 26312-7 Heart Rate 1: 75 bpm Height: 4'11" SpO2: 95% Weight: 206 lbs 07/15/2016 Blood Pressure 1: 140/76 Code: 8480-6 BMI: 42.0 Code: 95811-8 Heart Rate 1: 76 bpm Height: 4'11" SpO2: 96% Weight: 208 lbs 06/03/2016 Blood Pressure 1: 130/78 Code: 8480-6 BMI: 42.8 Code: 87721-6 Heart Rate 1: 72 bpm Height: 4'11" SpO2: 98% Weight: 212 lbs 04/22/2016 Blood Pressure 1: 142/84 Code: 8480-6 BMI: 41.8 Code: 38857-5 Heart Rate 1: 86 bpm Height: 4'11" SpO2: 92% Weight: 207 lbs 01/22/2016 Blood Pressure 1: 162/64 Code: 8480-6 BMI: 41.2 Code: 96314-6 Heart Rate 1: 70 bpm Height: 4'11" SpO2: 97% Weight: 204 lbs 10/23/2015 Blood Pressure 1: 130/70 Code: 8480-6 BMI: 40.4 Code: 48539-2 Heart Rate 1: 72 bpm Height: 4'11" SpO2: 95% Weight: 200 lbs 09/12/2015 Blood Pressure 1: 142/62 Code: 8480-6 BMI: 39.4 Code: 99927-7 Heart Rate 1: 63 bpm Height: 4'11" SpO2: 96% Weight: 195 lbs 08/05/2015 Blood Pressure 1: 144/60 Code: 8480-6 BMI: 41.0 Code: 86302-2 Heart Rate 1: 92 bpm Height: 4'11" SpO2: 90% SpO2: 97% Weight: 203 lbs 04/03/2015 Blood Pressure 1: 142/68 Code: 8480-6 BMI: 40.6 Code: 02744-5 Heart Rate 1: 77 bpm Height: 4'11" SpO2: 95% Weight: 201 lbs 01/30/2015 Blood Pressure 1: 150/72 Code: 8480-6 BMI: 40.2 Code: 27130-9 Heart Rate 1: 64 bpm Height: 4'11" Weight: 199 lbs 01/02/2015 Blood Pressure 1: 136/72 Code: 8480-6 BMI: 39.8 Code: 84764-9 Heart Rate 1: 68 bpm Height: 4'11" Weight: 197 lbs Functional Status No Functional Status data History of Present Illness Symptom Name Status Result Effective Date Notes diabetes mellitus Quality insulin dependent 11/16/2016 None [...] data Encounters Encounter Performer Location Codes Date ([id number]) [id number] EST. PATIENT, LEVEL IV Diagnosis: Type 2 diabetes mellitus with hyperglycemia[ICD10: E11.65] Diagnosis: Cough[ICD10: R05] Diagnosis: Acute upper respiratory infection, unspecified[ICD10: J06.9] Diagnosis: Hypothyroidism, unspecified[ICD10: E03.9] Diagnosis: Chronic kidney disease, stage 3 (moderate)[ICD10: N18.3] Giselle Knox MD, [facility] CPT-4: 73422 11/16/2016 [id number]) [id number] EST. PATIENT, LEVEL IV Diagnosis: Type 2 diabetes mellitus with hyperglycemia[ICD10: E11.65] Diagnosis: Hypothyroidism, unspecified[ICD10: E03.9] Diagnosis: Essential (primary) hypertension[ICD10: I10] Giselle Knox MD, [facility] CPT-4: 56415 08/19/2016 [id number]) [id number] EST. PATIENT, LEVEL III Diagnosis: Type 2 diabetes mellitus with hyperglycemia[ICD10: E11.65] Giselle Knox MD, [facility] CPT-4: 09849 07/15/2016 [id number]) [id number] EST. PATIENT, LEVEL IV Diagnosis: Type 2 diabetes mellitus with hyperglycemia[ICD10: E11.65] Diagnosis: Atrophy of thyroid (acquired)[ICD10: E03.4] Diagnosis: Vitamin B12 deficiency anemia due to intrinsic factor deficiency[ICD10: D51.0] Diagnosis: Chronic kidney disease, stage 3 (moderate)[ICD10: N18.3] Diagnosis: Essential (primary) hypertension[ICD10: I10] Jennifer Knox MD, [facility] CPT-4: 61698 06/03/2016 ([id number]) 27413 EST. PATIENT, LEVEL III Diagnosis: Type 2 diabetes mellitus with hyperglycemia[ICD10: E11.65] Diagnosis: Essential (primary) hypertension[ICD10: I10] Diagnosis: Chronic kidney disease, stage 3 (moderate)[ICD10: N18.3] Diagnosis: VACCIN STREP PNEUMONIAE[ICD10: Z23] Giselle Knox MD, [facility] CPT-4: 32578 04/22/2016 [id number] EST. PATIENT, LEVEL IV Diagnosis: Type 2 diabetes mellitus with hyperglycemia[ICD10: E11.65] Diagnosis: Essential (primary) hypertension[ICD10: I10] Chasity Knox MD, [facility] CPT-4: 69216 01/22/2016 ([id number]) 64442 EST. PATIENT, LEVEL III Diagnosis: Type 2 diabetes mellitus with hyperglycemia[ICD10: E11.65] Diagnosis: Essential (primary) hypertension[ICD10: I10] Giselle Knox MD, [facility] CPT-4: 61732 10/23/2015 [id number] EST. PATIENT, LEVEL IV Diagnosis: Type 2 diabetes mellitus with hyperglycemia[ICD10: E11.65] Diagnosis: Vitamin B12 deficiency anemia due to intrinsic factor deficiency[ICD10: D51.0] Diagnosis: Essential (primary) hypertension[ICD10: I10] Chasity Knox MD, [facility] CPT-4: 91190 09/12/2015 ([id number]) 12087 EST. PATIENT, LEVEL IV Diagnosis: Essential (primary) hypertension[ICD10: I10] Diagnosis: Type 2 diabetes mellitus with hyperglycemia[ICD10: E11.65] Diagnosis: Hypothyroidism, unspecified[ICD10: E03.9] Giselle Knox MD, [facility] CPT-4: 03913 08/05/2015 ([id number]) 35303 EST. PATIENT, LEVEL III Diagnosis: ESSENTIAL HYPERTENSION[ICD9: 401.9] Diagnosis: DIABETES TYPE II[ICD9: 250.00] [facility] CPT-4: 70788 04/03/2015 ([id number]) 49201 EST. PATIENT, LEVEL IV Diagnosis: ESSENTIAL HYPERTENSION[ICD9: 401.9] Diagnosis: DIABETES TYPE II[ICD9: 250.00] Diagnosis: Hypothyroidism[ICD9: 244.9] [facility] CPT-4: 77325 01/30/2015 ([id number]) OFFICE VISIT, NEW - LEVEL 4 Diagnosis: ESSENTIAL HYPERTENSION[ICD9: 401.9] Diagnosis: DIABETES TYPE II[ICD9: 250.00] Diagnosis: Impacted cerumen[ICD9: 380.4] [facility] CPT-4: 25923 01/02/2015 Plan of Care Planned Activity Notes Codes Status Date Appointment: Injection 01/04/2017 Patient Education: Patient Medication [...] glucose readings are starting to become less controlled.URI - Pt advised to increase fluids, vitamin C. Discussed natural and expected course of this diagnosis and need to alert me if symptoms do not follow expected course, or if any worse. RX sent to patient's pharmacy.Hypothyroidism - pt with chronic hypothyroidism, continue with current medication, will monitor pt to signs or symptoms of lack of adequate supplementation. Pt is to continue with current dose of medication unless directed otherwise. Check labs at regular intervals wither q 3 months or q 6 months based on previous levels of control.Chronic renal disease-check labs today 11/16/2016 Appointment: Giselle Mccoy WPtel: [address] [place], [place] [id number] (15 min) Moderate 11/16/2016 Patient Education: Patient [...] glucose readings are starting to become less controlled.I have recommended for the patient to follow more strictly to the diabetic diet as discussed in clinic to allow for greater blood glucose control.Hypertension - well controlled - continue with current medications, continue with no added salt diet. Pt has been encouraged to exercise daily.The pt has been advised to call the office if there are any acute concerns about change in blood pressure readings at home.Hypothyroidism - pt with chronic hypothyroidism, continue with current medication, will monitor pt to signs or symptoms of lack of adequate supplementation. Pt is to continue with current dose of medication unless directed otherwise. Check labs at regular intervals wither q 3 months or q 6 months based on previous levels of control. 08/19/2016 Appointment: Giselle Mccoy WPtel: [facility] [phone] (15 min) Moderate 08/19/2016 Patient Education: Patient Medication Summary Completed 08/19/2016 Patient Education: Obesity Completed 08/19/2016 Care Plan: Tsh Cancelled 08/19/2016 Care Plan: %Hba1C LOINC : 28916-1 Cancelled 08/19/2016 Care Plan: Lipid Cancelled 08/19/2016 Care Plan: Free T4 patient coming back next week Cancelled 08/19/2016 Appointment: Injection 07/29/2016 Patient Education: Patient Medication Summary Completed 07/29/2016 Appointment: Giselle Mccoy WPtel[facility] [phone] (30 min) Complex 07/22/2016 Visit Plan: Diabetes-having hypoglycemia in the mornings-insulin adjusted-patient and verbalized understanding of plan. Follow up in 1 month-call sooner if still having low blood sugars. Sinus congestion-start claritin 07/15/2016 Appointment: Giselle Mccoy WPtel: [facility] [phone] [place] (30 min) Complex 07/15/2016 Patient Education: [...] glucose readings are starting to become less controlled.I have recommended for the patient to follow more strictly to the diabetic diet as discussed in clinic to allow for greater blood glucose control.Pt qualifies for diabetic shoes - she is displaying peripheral neuopathy symptoms - decreased sensation of feet bilaterally. Pt to use shoes daily to help prevent breakdown of feet/sores.Hypertension - well controlled - continue with current medications, continue with no added salt diet. Pt has been encouraged to exercise daily.The pt has been advised to call the office if there are any acute concerns about change in blood pressure readings at home.Hypothyroidism - pt with chronic hypothyroidism, continue with current medication, will monitor pt to signs or symptoms of lack of adequate supplementation. Pt is to continue with current dose of medication unless directed otherwise. Check labs at regular intervals wither q 3 months or q 6 months based on previous levels of control. 06/03/2016 Appointment: [facility] Knox [facility]el[facility] [address] [id number] (15 min) Moderate 06/03/2016 Patient Education: Patient Medication Summary Completed 06/03/2016 Patient Education: Obesity Completed 06/03/2016 Visit Plan: Hypertension - well controlled - continue with current medications, continue with no added salt diet. Pt has been encouraged to exercise daily.The pt has been advised to call the office if there are any acute concerns about change in blood pressure readings at home.Chronic renal disease stage 3-GFR improved to baseline-stay [...] glucose readings are starting to become less controlled.DUE FOR REPEAT HGB A1C IN 1 MONTH 04/22/2016 Visit Plan: Hypertension - well controlled - continue with current medications, continue with no added salt diet. Pt has been encouraged to exercise daily.The pt has been advised to call the office if there are any acute concerns about change in blood pressure readings at home.Chronic renal disease stage 3-GFR improved to baseline-stay [...] glucose readings are starting to become less controlled.DUE FOR REPEAT HGB A1C IN 1 MONTH 04/22/2016 Visit Plan: Hypertension - well controlled - continue with current medications, continue with no added salt diet. Pt has been encouraged to exercise daily.The pt has been advised to call the office if there are any acute concerns about change in blood pressure readings at home.Chronic renal disease stage 3-GFR improved to baseline-stay [...] glucose readings are starting to become less controlled.DUE FOR REPEAT HGB A1C IN 1 MONTH 04/22/2016 Visit Plan: Hypertension - well controlled - continue with current medications, continue with no added salt diet. Pt has been encouraged to exercise daily.The pt has been advised to call the office if there are any acute concerns about change in blood pressure readings at home.Chronic renal disease stage 3-GFR improved to baseline-stay [...] glucose readings are starting to become less controlled.DUE FOR REPEAT HGB A1C IN 1 MONTH 04/22/2016 Visit Plan: Hypertension - well controlled - continue with current medications, continue with no added salt diet. Pt has been encouraged to exercise daily.The pt has been advised to call the office if there are any acute concerns about change in blood pressure readings at home.Chronic renal disease stage 3-GFR improved to baseline-stay [...] glucose readings are starting to become less controlled.DUE FOR REPEAT HGB A1C IN 1 MONTH 04/22/2016 Appointment: Giselle Mccoy WPtel: [facility] [place] [phone] (15 min) Moderate 04/22/2016 Patient Education: Patient Medication Summary Completed 04/22/2016 Visit Plan: Hypertension - well controlled - continue with current medications, continue with no added salt diet. Pt has been encouraged to exercise daily.The pt has been advised to call the office if there are any acute concerns about change in blood pressure readings at home.Diabetes Mellitus - controlled - per recent FSBS [...] diet. Pt has been encouraged to exercise daily.The pt has been advised to call the office if there are any acute concerns about change in blood pressure readings at home.Diabetes Mellitus - Uncontrolled -I have recommended for the patient to have follow up labs prior to the next office visit. The patient has been instructed to continue with current medications as previously directed, continue with regular FSBS monitoring to assure continued control of diabetes. Pt to call for any acute concerns, complaints, or if the blood glucose readings are starting to become less controlled.I have recommended for the patient to follow [...] diet. Pt has been encouraged to exercise daily.The pt has been advised to call the office if there are any acute concerns about change in blood pressure readings at home.Diabetes Mellitus - pt states that her sugars [...] glucose readings are starting to become less controlled.Hypothyroidism - pt with chronic hypothyroidism, continue with [...] diet. Pt has been encouraged to exercise daily.The pt has been advised to call the office if there are any acute concerns about change in blood pressure readings at home.Diabetes Mellitus - I have recommended for the patient to have follow up labs prior to the next office visit. The patient has been instructed to continue with current medications as previously directed, continue with regular FSBS monitoring to assure continued control of diabetes. Pt to call for any acute concerns, complaints, or if the blood glucose readings are starting to become less controlled.Hypothyroidism - pt with chronic hypothyroidism, continue with [...] diet. Pt has been encouraged to exercise daily.The pt has been advised to call the office if there are any acute concerns about change in blood pressure readings at home.Diabetes Mellitus - Uncontrolled - per recent FSBS [...] glucose readings are starting to become less controlled.I have recommended for the patient to follow [...] the office next week for practitioner to review.The pt is to call for acute concerns.Diabetes Mellitus - Uncontrolled - I have recommended [...] glucose readings are starting to become less controlled.I have recommended for the patient to follow more strictly to the diabetic diet as discussed in clinic to allow for greater blood glucose control .Hypothyroidism - pt with chronic hypothyroidism, continue with [...] diet. Pt has been encouraged to exercise daily.The pt has been advised to call the office if there are any acute concerns about change in blood pressure readings at home.Diabetes Mellitus - controlled - per recent FSBS [...] glucose readings are starting to become less controlled.Cerumen Impaction - pt to use sweet oil to ears, will re-eval pt in a month and flush ears if needed. 01/02/2015 Appointment: Jennifer Knox WPtel: [address] [place], [place] [id number] [place] ([place]) New Patient 01/02/2015 Patient Education: Patient Medication Summary Completed 01/02/2015 Patient Education: Hypertension Completed 01/02/2015 Instructions Comment decrease terazosin to 1/2 pill [...] a month and flush ears if needed. COME BACK NEXT WEEK FOR BLOOD WORK [...]
--- OUTSIDE RECORDS SUMMARY | 2019-01-23 08:34 | XMS REPORT | CCD ---
Author Author [facility] Organization [facility] Address [address] [place] [address] Phone Care Team Providers Care Research Dietitian Name Role Phone PP Unavailable CCM Unavailable Summary Purpose Interface Exchange Insurance Providers Payer name Policy type / Coverage type Covered constitution party ID Effective Begin Date Effective End Date [facility] Commercial Insurance [id number] Unknown Family history Runs in the family [...] (vit B-12) 1,000 mcg/mL injection solution RxNorm: 451591 Milliliter(s) Inj 01/04/2017 01/04/2017 Inactive Humulin 70/30 100 unit/mL subcutaneous suspension RxNorm: 644467 18 Unit(s) SQ QAM 12/22/2016 06/04/2017 Active cyanocobalamin (vit B-12) 1,000 mcg/mL injection solution RxNorm: 540738 1 Milliliter(s) Inj 12/10/2016 12/10/2016 Inactive Zithromax Z-Jose 250 mg tablet RxNorm: 797516 1 Tablet(s) PO UD 11/16/2016 11/20/2016 Inactive terazosin 2 mg capsule RxNorm: 115463 TAKE ONE CAPSULE BY MOUTH DAILY 11/08/2016 05/06/2017 Active Lantus Solostar 100 unit/mL (3 mL) subcutaneous insulin pen RxNorm: 314503 INJECT 35 UNITS UNDER THE SKIN EVERY NIGHT AT BEDTIME 10/22/2016 02/15/2019 Active cyanocobalamin (vit B-12) 1,000 mcg/mL injection solution RxNorm: 792419 Milliliter(s) Inj 10/13/2016 10/13/2016 Inactive cyanocobalamin (vit B-12) 1,000 mcg/mL injection solution RxNorm: 986169 1 Milliliter(s) Inj 09/03/2016 09/03/2016 Inactive Contour Test Strips RxNorm: TEST BLOOD SUGAR TWO TIMES A DAY E11.65 08/19/2016 04/10/2018 Active carvedilol 12.5 mg tablet RxNorm: 110268 TAKE ONE TABLET BY MOUTH TWICE A DAY 08/05/2016 01/01/2017 Inactive carvedilol 12.5 mg tablet RxNorm: 19990924 TAKE ONE TABLET BY MOUTH TWICE A DAY 08/05/2016 01/01/2017 Inactive carvedilol 12.5 mg tablet RxNorm: 890324 1 Tablet(s) PO BID 08/04/2016 01/30/2017 Active cyanocobalamin (vit B-12) 1,000 mcg/mL injection solution RxNorm: 790767 Milliliter(s) Inj 07/29/2016 07/29/2016 Inactive Lantus Solostar 100 unit/mL (3 mL) subcutaneous insulin pen RxNorm: 556031 30 Unit(s) SQ Q 07/15/2016 06/29/2019 Active Humulin 70/30 100 unit/mL subcutaneous suspension RxNorm: 691721 18 Unit(s) SQ QA 07/15/2016 12/21/2016 Inactive losartan 100 mg tablet RxNorm: 415754 TAKE ONE TABLET BY MOUTH DAILY 07/08/2016 06/02/2017 Active terazosin 2 mg capsule RxNorm: 957692 TAKE ONE CAPSULE BY MOUTH DAILY 06/10/2016 11/06/2016 Inactive cyanocobalamin (vit B-12) 1,000 mcg/mL injection solution RxNorm: 035623 1 Milliliter(s) Inj 06/03/2016 06/03/2016 Inactive Humulin 70/30 100 unit/mL subcutaneous suspension RxNorm: 612905 Unit(s) INJECT 10 UNITS UNDER THE SKIN 06/01/2016 07/14/2016 Inactive Request already responded to by other means (e.g. phone or fax) Humulin 70/30 100 unit/mL subcutaneous suspension RxNorm: 734890 INJECT 10 UNITS UNDER THE SKIN BEFORE MEALS 06/01/2016 05/31/2016 Inactive Request already responded to by other means (e.g. phone or fax) Lantus Solostar 100 unit/mL (3 mL) subcutaneous insulin pen RxNorm: 070214 35 Unit(s) SQ [facility] 05/26/2016 07/14/2016 Inactive Humulin 70/30 100 unit/mL subcutaneous suspension RxNorm: 379070 10 Unit(s) SQ [facility] 05/24/2016 10/02/2016 Inactive Humulin 70/30 100 unit/mL subcutaneous suspension RxNorm: 955547 21 Unit(s) SQ QA 05/24/2016 05/23/2016 Inactive Lantus Solostar 100 unit/mL (3 mL) subcutaneous insulin pen RxNorm: 566802 32 Unit(s) SQ Q 04/22/2016 05/25/2016 Inactive Humulin 70/30 100 unit/mL subcutaneous suspension RxNorm: 319481 21 Unit(s) SQ QA 04/22/2016 05/24/2016 Inactive with breakfast hydrochlorothiazide 25 mg tablet RxNorm: 869786 TAKE ONE TABLET BY MOUTH DAILY 02/04/2016 02/16/2016 Inactive terazosin 2 mg capsule RxNorm: 886058 Capsule(s) TAKE ONE CAPSULE BY MOUTH DAILY. 12/01/2015 05/28/2016 Inactive Humulin 70/30 100 unit/mL subcutaneous suspension RxNorm: 067175 INJECT 10 UNITS UNDER THE SKIN BEFORE MEALS 11/06/2015 03/16/2016 Inactive hydrochlorothiazide 25 mg tablet RxNorm: 766755 1 Tablet(s) PO daily 10/06/2015 02/02/2016 Inactive cyanocobalamin (vit B-12) 1,000 mcg/mL injection solution RxNorm: 706064 Milliliter(s) Inj 09/15/2015 09/15/2015 Inactive Humulin 70/30 100 unit/mL subcutaneous suspension RxNorm: 702706 INJECT 10 UNITS UNDER THE SKIN BEFORE MEALS 09/08/2015 10/10/2015 Inactive cyanocobalamin (vit B-12) 1,000 mcg/mL injection solution RxNorm: 309977 Milliliter(s) Inj 09/08/2015 09/08/2015 Inactive terazosin 2 mg capsule RxNorm: 169438 TAKE ONE CAPSULE BY MOUTH DAILY. DISCONTINUE 5 MG CAPSULES 09/01/2015 11/29/2015 Inactive cyanocobalamin (vit B-12) 1,000 mcg/mL injection solution RxNorm: 595792 Milliliter(s) Inj 09/01/2015 09/01/2015 Inactive cyanocobalamin (vit B-12) 1,000 mcg/mL injection solution RxNorm: 118447 Milliliter(s) Inj 08/25/2015 08/25/2015 Inactive levothyroxine 112 mcg tablet RxNorm: 685812 1 Tablet(s) PO daily 08/06/2015 12/03/2015 Inactive Lantus Solostar 100 unit/mL (3 mL) subcutaneous insulin pen RxNorm: 359983 35 Unit(s) SQ QHS 08/06/2015 04/21/2016 Inactive Humulin 70/30 100 unit/mL subcutaneous suspension RxNorm: 417314 20 Unit(s) SQ AC 08/05/2015 04/21/2016 Inactive with breakfast carvedilol 12.5 mg tablet RxNorm: 742503 1 Tablet(s) PO BID 08/05/2015 01/31/2016 Inactive Humulin 70/30 100 unit/mL subcutaneous suspension RxNorm: 498863 10 Unit(s) SQ AC 07/22/2015 08/04/2015 Inactive losartan 100 mg tablet RxNorm: 421153 TAKE ONE TABLET BY MOUTH DAILY 06/25/2015 06/18/2016 Inactive Lantus Solostar 100 unit/mL (3 mL) subcutaneous insulin pen RxNorm: 206032 30 Unit(s) SQ QHS 06/18/2015 08/05/2015 Inactive terazosin 2 mg capsule RxNorm: 778777 1 Capsule(s) PO daily 04/14/2015 08/11/2015 Inactive DC the 5mg order terazosin 2 mg capsule RxNorm: 939299 1 Capsule(s) PO daily 04/14/2015 04/13/2015 Inactive Synthroid 25 mcg tablet RxNorm: 017826 1 Tablet(s) PO daily 04/11/2015 10/07/2015 Inactive Synthroid 25 mcg tablet RxNorm: 022949 1 Tablet(s) PO daily 04/11/2015 04/10/2015 Inactive Lantus Solostar 100 unit/mL (3 mL) subcutaneous insulin pen RxNorm: 062028 30 Unit(s) SQ QHS 04/04/2015 06/17/2015 Inactive terazosin 5 mg tablet RxNorm: 537775 1 Tablet(s) PO daily 04/03/2015 04/13/2015 Inactive Lantus Solostar 100 unit/mL (3 mL) subcutaneous insulin pen RxNorm: 311504 25 Unit(s) SQ QHS 01/08/2015 04/03/2015 Inactive carvedilol 25 mg tablet RxNorm: 420803 1 Tablet(s) PO BID 01/02/2015 01/31/2015 Inactive terazosin 5 mg tablet RxNorm: 205826 1 Tablet(s) PO daily 01/02/2015 01/01/2015 Inactive levothyroxine 125 mcg tablet RxNorm: 234174 1 Tablet(s) PO daily 01/02/2015 01/31/2015 Inactive terazosin 5 mg tablet RxNorm: 107292 1/2 Tablet(s) PO daily 01/02/2015 01/31/2015 Inactive losartan 100 mg tablet RxNorm: 372976 1 Tablet(s) PO daily 12/24/2014 04/22/2015 Inactive losartan 100 mg tablet RxNorm: 511698 1 Tablet(s) PO daily 12/24/2014 12/23/2014 Inactive Contour Test Strips RxNorm: Miscellaneous test blood sugars BID 12/06/2014 12/05/2014 Inactive dx 250.00 Contour Test Strips RxNorm: Miscellaneous test blood sugars BID or UD 12/06/2014 06/23/2015 Inactive dx 250.00 [SAVINGS FOR NON-COVERED DRUGS -- BIN:[id number], PCN: [id number], Group: [id number], ID# [id number], Questions: . THIS IS NOT INSURANCE.] Microlet Lancet RxNorm: Miscellaneous Test BID or Ud No Start Date Active 250.0 cyanocobalamin (vit B-12) 100 mcg tablet RxNorm: 969001 1 Tablet(s) PO daily No Start Date Active hydrochlorothiazide 25 mg tablet RxNorm: 506481 1 Tablet(s) PO daily No Start Date 10/05/2015 Inactive Humulin 70/30 100 unit/mL subcutaneous suspension RxNorm: 037081 20 Unit(s) SQ QAM No Start Date 07/21/2015 Inactive Lantus Solostar 100 unit/mL (3 mL) subcutaneous insulin pen RxNorm: 778607 20 Unit(s) SQ QHS No Start Date 01/07/2015 Inactive Medication Administered Medication Codes Instructions Start Date Status cyanocobalamin (vit B-12) 1,000 mcg/mL injection solution RxNorm: 169184 Milliliter 01/04/2017 Active cyanocobalamin (vit B-12) 1,000 mcg/mL injection solution RxNorm: 759942 1Milliliter 12/10/2016 No longer Active cyanocobalamin (vit B-12) 1,000 mcg/mL injection solution RxNorm: 972374 Milliliter 10/13/2016 No longer Active cyanocobalamin (vit B-12) 1,000 mcg/mL injection solution RxNorm: 999787 1Milliliter 09/03/2016 No longer Active cyanocobalamin (vit B-12) 1,000 mcg/mL injection solution RxNorm: 509317 Milliliter 07/29/2016 No longer Active cyanocobalamin (vit B-12) 1,000 mcg/mL injection solution RxNorm: 198210 1Milliliter 06/03/2016 No longer Active cyanocobalamin (vit B-12) 1,000 mcg/mL injection solution RxNorm: 384103 Milliliter 09/15/2015 No longer Active cyanocobalamin (vit B-12) 1,000 mcg/mL injection solution RxNorm: 796713 Milliliter 09/08/2015 No longer Active cyanocobalamin (vit B-12) 1,000 mcg/mL injection solution RxNorm: 957754 Milliliter 09/01/2015 No longer Active cyanocobalamin (vit B-12) 1,000 mcg/mL injection solution RxNorm: 356164 Milliliter 08/25/2015 No longer Active Immunizations Vaccine [...] 04/03/2015 DIABETES TYPE II ICD-9: 250.00 04/03/2015 Fern camachon ICD-9: 380.4 01/02/2015 Reason For Visit Reason [...] 29.3 pg 12/10/2016 Cbc With Differential Ord2 [place]% 7.1 % 12/10/2016 Cbc With Differential Ord2 [...] 2.50 K/ul 12/10/2016 Cbc With Differential Ord2 [place] ABS# 0.5 K/ul 12/10/2016 Cbc With Differential Ord2 Eos ABS# 0.1 K/ul 12/10/2016 Cbc With Differential Ord2 Baso ABS# 0.0 K/ul 12/10/2016 B12 Pml066 B12 222.00 pg/ml 12/10/2016 %Hba1C Ybs579 % HbA1c 37201- 6 7.5 % 11/16/2016 %Hba1C Aso720 Gluc Ave 169 mg/dL 11/16/2016 Free T4 Nzc773 FREE T4 1.03 ng/dL 11/16/2016 Comp Metabolic Oav827 NA 138 mEq/L 11/16/2016 Comp Metabolic Xtg042 K 3.8 mEq/L 11/16/2016 Comp Metabolic Pkr775 CL 103 mEq/L 11/16/2016 Comp Metabolic Enk931 CO2 26.0 mEq/L 11/16/2016 Comp Metabolic Yat617 ANION GAP 13 11/16/2016 Comp Metabolic Hci850 GLUCOSE 235 mg/dL 11/16/2016 Comp Metabolic Nke930 Creat 0.9 mg/dL 11/16/2016 Comp Metabolic Mff395 eGFR 62 ml/min/1.73m2 11/16/2016 Comp Metabolic Ooe882 BUN 20 mg/dL 11/16/2016 Comp Metabolic Hhz120 B/C Ratio 21.7 Ratio 11/16/2016 Comp Metabolic Pot398 CALCIUM 8.9 mg/dL 11/16/2016 Comp Metabolic Tmr236 ALK PHOS 75 U/L 11/16/2016 Comp Metabolic Kxl847 AST(SGOT) 30 U/L 11/16/2016 Comp Metabolic Swp554 ALT(SGPT) 13 U/L 11/16/2016 Comp Metabolic Rij821 BILI T 0.6 mg/dL 11/16/2016 Comp Metabolic Oyv709 ALBUMIN 3.8 g/dL 11/16/2016 Comp Metabolic Afs680 TPRO 6.8 g/dL 11/16/2016 Comp Metabolic Mux243 GLOB 3.1 g/dL 11/16/2016 Comp Metabolic Isj117 A/G Ratio 1.2 Ratio 11/16/2016 Comp Metabolic Rbn884 Osmo 286 mOsmo 11/16/2016 Tsh Ord6 hTSH II 2.50 uIU/mL 11/16/2016 Tsh Ord6 hTSH II 3.18 uIU/mL 05/21/2016 Lipid Ord30 CHOL 212 mg/dL 05/21/2016 Lipid Ord30 HDL 43.0 mg/dl 05/21/2016 Lipid Ord30 TRIG 164 mg/dL 05/21/2016 Lipid Ord30 LDL 136 mg/dL 05/21/2016 Lipid Ord30 C/HDL 4.9 Ratio 05/21/2016 B12 Djx919 B12 159.00 pg/ml 05/21/2016 %Hba1C Ukf419 % HbA1c 68044- 6 7.5 % 05/21/2016 %Hba1C Fuk182 Gluc Ave 169 mg/dL 05/21/2016 Folate Ord36 Folate >23.80 ng/mL 05/21/2016 Free T4 Rfm392 FREE T4 1.03 ng/dL 05/21/2016 CHEM 14 0151954 AST 33 U/L 03/15/2016 CHEM 14 8100001 ALT 13 U/L 03/15/2016 CHEM 14 3399678 BUN 18 mg/dL 03/15/2016 CHEM 14 4701221 ALBUMIN 3.9 g/dL 03/15/2016 CHEM 14 6080226 CHLORIDE 105 mmol/L 03/15/2016 CHEM 14 2532075 Bili Total 0.4 mg/dL 03/15/2016 CHEM 14 0699621 ALK PHOS 60 U/L 03/15/2016 CHEM 14 9679274 SODIUM 138 mmol/L 03/15/2016 CHEM 14 0586827 CREATININE 0.99 mg/dL 03/15/2016 CHEM 14 7959660 CALCIUM 9.4 mg/dL 03/15/2016 CHEM 14 1045782 POTASSIUM 3.8 mmol/L 03/15/2016 CHEM 14 9036534 TOTAL PROTEIN 6.7 g/dL 03/15/2016 CHEM 14 7985092 GLUCOSE 109 mg/dL 03/15/2016 CHEM 14 9170268 Bicarbonate 27 mmol/L 03/15/2016 CHEM 14 1588896 AGAP 6 mmol/L 03/15/2016 GFR CALC 9707374 GFR Non Afr Amr 54 mL/min 03/15/2016 GFR CALC 2092216 GFR Afr Amr >60 mL/min 03/15/2016 B12 Zpj736 B12 46.00 pg/ml 08/07/2015 Iron Ord72 Iron [...] Ord2 RDW 16.6 % 08/05/2015 Free T4 Uvf548 FREE T4 1.33 ng/dL 08/05/2015 Comp Metabolic Lbh689 NA 137 mEq/L 08/05/2015 Comp Metabolic Clv402 K 4.5 mEq/L 08/05/2015 Comp Metabolic Sft127 CL 104 mEq/L 08/05/2015 Comp Metabolic Teb282 CO2 26.0 mEq/L 08/05/2015 Comp Metabolic Cwu868 ANION GAP 12 08/05/2015 Comp Metabolic Nyc213 GLUCOSE 146 mg/dL 08/05/2015 Comp Metabolic Urg886 Creat 1.0 mg/dL 08/05/2015 Comp Metabolic Jkw159 eGFR 56 ml/min/1.73m2 08/05/2015 Comp Metabolic Div327 BUN 23 mg/dL 08/05/2015 Comp Metabolic Uqt612 B/C Ratio 22.8 Ratio 08/05/2015 Comp Metabolic Eoz382 CALCIUM 9.3 mg/dL 08/05/2015 Comp Metabolic Rol356 ALK PHOS 71 U/L 08/05/2015 Comp Metabolic Mbi014 AST(SGOT) 33 U/L 08/05/2015 Comp Metabolic Bli899 ALT(SGPT) 15 U/L 08/05/2015 Comp Metabolic Thb622 BILI T 0.6 mg/dL 08/05/2015 Comp Metabolic Fbd695 ALBUMIN 3.9 g/dL 08/05/2015 Comp Metabolic Fho008 TPRO 6.5 g/dL 08/05/2015 Comp Metabolic Hce198 GLOB 2.6 g/dL 08/05/2015 Comp Metabolic Gyk607 A/G Ratio 1.5 Ratio 08/05/2015 Comp Metabolic Jqx353 Osmo 280 mOsmo 08/05/2015 Tsh Ord6 hTSH II 0.36 uIU/mL 08/05/2015 %Hba1C Yug844 % HbA1c 56623- 6 8.1 % 08/05/2015 %Hba1C Hms806 Gluc Ave 186 mg/dL 08/05/2015 Free T4 Sku302 FREE T4 0.91 ng/dL 04/11/2015 %Hba1C Erv008 % HbA1c 97097- 6 8.3 % 04/10/2015 %Hba1C Pqx541 Gluc Ave 192 mg/dL 04/10/2015 Cbc With [...] Ord2 RDW 15.8 % 04/10/2015 Comp Metabolic Llw496 NA 134 mEq/L 04/10/2015 Comp Metabolic Hty946 K 4.1 mEq/L 04/10/2015 Comp Metabolic Uib302 CL 105 mEq/L 04/10/2015 Comp Metabolic Oyq388 CO2 26.0 mEq/L 04/10/2015 Comp Metabolic Jfl093 ANION GAP 7 04/10/2015 Comp Metabolic Iey894 GLUCOSE 126 mg/dL 04/10/2015 Comp Metabolic Leb746 Creat 1.0 mg/dL 04/10/2015 Comp Metabolic Itq093 eGFR 58 ml/min/1.73m2 04/10/2015 Comp Metabolic Npf125 BUN 29 mg/dL 04/10/2015 Comp Metabolic Ztv963 B/C Ratio 29.6 Ratio 04/10/2015 Comp Metabolic Mxr851 CALCIUM 9.3 mg/dL 04/10/2015 Comp Metabolic Kme015 ALK PHOS 63 U/L 04/10/2015 Comp Metabolic Abi516 AST(SGOT) 31 U/L 04/10/2015 Comp Metabolic Wel187 ALT(SGPT) 14 U/L 04/10/2015 Comp Metabolic Onz326 BILI T 0.6 mg/dL 04/10/2015 Comp Metabolic Exg049 ALBUMIN 3.9 g/dL 04/10/2015 Comp Metabolic Ntq543 TPRO 6.3 g/dL 04/10/2015 Comp Metabolic Wid424 GLOB 2.4 g/dL 04/10/2015 Comp Metabolic Aeo496 A/G Ratio 1.6 Ratio 04/10/2015 Comp Metabolic Mba488 Osmo 276 mOsmo 04/10/2015 Tsh Ord6 hTSH [...] Procedure Codes Date THER/PROPH/DIAG INJ SC/IM CPT-4: 29668Drcukzr 01/04/2017 VITAMIN B12 INJECTION CPT-4: E9505Rfmmjut 01/04/2017 THER/PROPH/DIAG INJ SC/IM CPT-4: 12186Qrhpftm 12/10/2016 VITAMIN B12 INJECTION CPT-4: G2336Urtpxff 12/10/2016 THER/PROPH/DIAG INJ SC/IM CPT-4: 99182Rmablqv 10/13/2016 TRIAMCINOLONE ACET INJ NOS CPT-4: A1384Hogfvay 10/13/2016 THER/PROPH/DIAG INJ SC/IM CPT-4: 89817Qumnvwr 09/03/2016 VITAMIN B12 INJECTION CPT-4: E3140Foquuod 09/03/2016 THER/PROPH/DIAG INJ SC/IM CPT-4: 73097Wlgtkcu 07/29/2016 VITAMIN B12 INJECTION CPT-4: I2136Pqgbhca 07/29/2016 THER/PROPH/DIAG INJ SC/IM CPT-4: 60306Edrizkd 06/03/2016 VITAMIN B12 INJECTION CPT-4: P7829Arboasr 06/03/2016 PNEUMOCOCCAL VACC [address]: 38257612 CPT-4: 94148Kuotfhh 04/22/2016 ADMIN PNEUMOCOCCAL VACCINE SNOMED CT: 48642080 CPT-4: J9756Tfeseih 04/22/2016 VITAMIN B12 INJECTION CPT-4: V5928Dsjntdt 09/15/2015 THER/PROPH/DIAG INJ SC/IM CPT-4: 24794Mtuinpu 09/15/2015 THER/PROPH/DIAG INJ SC/IM CPT-4: 24698Szjwuia 09/08/2015 VITAMIN B12 INJECTION CPT-4: J0337Rjnrwcj 09/08/2015 THER/PROPH/DIAG INJ SC/IM CPT-4: 35084Shqwhhw 09/01/2015 VITAMIN B12 INJECTION CPT-4: V8594Mzmotae 09/01/2015 THER/PROPH/DIAG INJ SC/IM CPT-4: 21613Jwbnbws 08/25/2015 VITAMIN B12 INJECTION CPT-4: P1831Pvypurk 08/25/2015 Vital Signs Date Vital 11/16/2016 Blood Pressure 1: 142/78 Code: 8480-6 BMI: 41.6 Code: 68425-6 Heart Rate 1: 68 bpm Height: 4'11" SpO2: 95% Temperature: 36.0 (C) / 96.8 (F) Weight: 206 lbs 08/19/2016 Blood Pressure 1: 120/74 Code: 8480-6 BMI: 41.6 Code: 76352-8 Heart Rate 1: 75 bpm Height: 4'11" SpO2: 95% Weight: 206 lbs 07/15/2016 Blood Pressure 1: 140/76 Code: 8480-6 BMI: 42.0 Code: 31844-3 Heart Rate 1: 76 bpm Height: 4'11" SpO2: 96% Weight: 208 lbs 06/03/2016 Blood Pressure 1: 130/78 Code: 8480-6 BMI: 42.8 Code: 50277-9 Heart Rate 1: 72 bpm Height: 4'11" SpO2: 98% Weight: 212 lbs 04/22/2016 Blood Pressure 1: 142/84 Code: 8480-6 BMI: 41.8 Code: 57845-0 Heart Rate 1: 86 bpm Height: 4'11" SpO2: 92% Weight: 207 lbs 01/22/2016 Blood Pressure 1: 162/64 Code: 8480-6 BMI: 41.2 Code: 56305-2 Heart Rate 1: 70 bpm Height: 4'11" SpO2: 97% Weight: 204 lbs 10/23/2015 Blood Pressure 1: 130/70 Code: 8480-6 BMI: 40.4 Code: 34547-3 Heart Rate 1: 72 bpm Height: 4'11" SpO2: 95% Weight: 200 lbs 09/12/2015 Blood Pressure 1: 142/62 Code: 8480-6 BMI: 39.4 Code: 37457-2 Heart Rate 1: 63 bpm Height: 4'11" SpO2: 96% Weight: 195 lbs 08/05/2015 Blood Pressure 1: 144/60 Code: 8480-6 BMI: 41.0 Code: 52005-1 Heart Rate 1: 92 bpm Height: 4'11" SpO2: 90% SpO2: 97% Weight: 203 lbs 04/03/2015 Blood Pressure 1: 142/68 Code: 8480-6 BMI: 40.6 Code: 55820-5 Heart Rate 1: 77 bpm Height: 4'11" SpO2: 95% Weight: 201 lbs 01/30/2015 Blood Pressure 1: 150/72 Code: 8480-6 BMI: 40.2 Code: 41479-1 Heart Rate 1: 64 bpm Height: 4'11" Weight: 199 lbs 01/02/2015 Blood Pressure 1: 136/72 Code: 8480-6 BMI: 39.8 Code: 86884-6 Heart Rate 1: 68 bpm Height: 4'11" [...] data Encounters Encounter Performer Location Codes Date ([id number]) [id number] EST. PATIENT, LEVEL IV Diagnosis: Type 2 diabetes mellitus with hyperglycemia[ICD10: E11.65] Diagnosis: Cough[ICD10: R05] Diagnosis: Acute upper respiratory infection, unspecified[ICD10: J06.9] Diagnosis: Hypothyroidism, unspecified[ICD10: E03.9] Diagnosis: Chronic kidney disease, stage 3 (moderate)[ICD10: N18.3] Giselle Knox MD, [facility] CPT-4: 45907 11/16/2016 [id number]) 74041 EST. PATIENT, LEVEL IV Diagnosis: Type 2 diabetes mellitus with hyperglycemia[ICD10: E11.65] Diagnosis: Hypothyroidism, unspecified[ICD10: E03.9] Diagnosis: Essential (primary) hypertension[ICD10: I10] Giselle Knox MD, [facility] CPT-4: 62675 08/19/2016 [id number]) 91024 EST. PATIENT, LEVEL III Diagnosis: Type 2 diabetes mellitus with hyperglycemia[ICD10: E11.65] Giselle Knox MD, [facility] CPT-4: 12784 07/15/2016 ([id number]) 71852 EST. PATIENT, LEVEL IV Diagnosis: Type 2 diabetes mellitus with hyperglycemia[ICD10: E11.65] Diagnosis: Atrophy of thyroid (acquired)[ICD10: E03.4] Diagnosis: Vitamin B12 deficiency anemia due to intrinsic factor deficiency[ICD10: D51.0] Diagnosis: Chronic kidney disease, stage 3 (moderate)[ICD10: N18.3] Diagnosis: Essential (primary) hypertension[ICD10: I10] Jennifer Knox MD, [facility] CPT-4: 53672 06/03/2016 ([id number]) 97967 EST. PATIENT, LEVEL III Diagnosis: Type 2 diabetes mellitus with hyperglycemia[ICD10: E11.65] Diagnosis: Essential (primary) hypertension[ICD10: I10] Diagnosis: Chronic kidney disease, stage 3 (moderate)[ICD10: N18.3] Diagnosis: VACCIN STREP PNEUMONIAE[ICD10: Z23] Giselle Knox MD, [facility] CPT-4: 61967 04/22/2016 37788 EST. PATIENT, LEVEL IV Diagnosis: Type 2 diabetes mellitus with hyperglycemia[ICD10: E11.65] Diagnosis: Essential (primary) hypertension[ICD10: I10] Chasity Knox MD, [facility] CPT-4: 99205 01/22/2016 ([id number]) 91817 EST. PATIENT, LEVEL III Diagnosis: Type 2 diabetes mellitus with hyperglycemia[ICD10: E11.65] Diagnosis: Essential (primary) hypertension[ICD10: I10] Giselle Knox MD, [facility] CPT-4: 98533 10/23/2015 [id number] EST. PATIENT, LEVEL IV Diagnosis: Type 2 diabetes mellitus with hyperglycemia[ICD10: E11.65] Diagnosis: Vitamin B12 deficiency anemia due to intrinsic factor deficiency[ICD10: D51.0] Diagnosis: Essential (primary) hypertension[ICD10: I10] Chasity Knox MD, [facility] CPT-4: 90633 09/12/2015 ([id number]) 85117 EST. PATIENT, LEVEL IV Diagnosis: Essential (primary) hypertension[ICD10: I10] Diagnosis: Type 2 diabetes mellitus with hyperglycemia[ICD10: E11.65] Diagnosis: Hypothyroidism, unspecified[ICD10: E03.9] Giselle Knox MD, [facility] CPT-4: 04792 08/05/2015 ([id number]) 09854 EST. PATIENT, LEVEL III Diagnosis: ESSENTIAL HYPERTENSION[ICD9: 401.9] Diagnosis: DIABETES TYPE II[ICD9: 250.00] [facility] CPT-4: 49361 04/03/2015 ([id number]) 60471 EST. PATIENT, LEVEL IV Diagnosis: ESSENTIAL HYPERTENSION[ICD9: 401.9] Diagnosis: DIABETES TYPE II[ICD9: 250.00] Diagnosis: Hypothyroidism[ICD9: 244.9] [facility] CPT-4: 41748 01/30/2015 ([id number]) OFFICE VISIT, NEW - LEVEL 4 Diagnosis: ESSENTIAL HYPERTENSION[ICD9: 401.9] Diagnosis: DIABETES TYPE II[ICD9: 250.00] Diagnosis: Impacted cerumen[ICD9: 380.4] [facility] CPT-4: 59582 01/02/2015 Plan of Care Planned Activity Notes Codes Status Date Patient Education: Patient Medication Summary Completed 01/04/2017 [...] labs today 11/16/2016 Appointment: G[facility] Mccoy [facility]el[phone] (15 min) Moderate 11/16/2016 Patient [...] of control. 08/19/2016 Appointment: Giselle Mccoy WPtel: [facility]5 [phone] (15 min) Moderate 08/19/2016 Patient Education: Patient Medication Summary Completed 08/19/2016 Patient Education: Obesity Completed 08/19/2016 Care Plan: Tsh Cancelled 08/19/2016 Care Plan: %Hba1C LOINC : 71533-6 Cancelled 08/19/2016 Care Plan: Lipid Cancelled 08/19/2016 Care Plan: Free T4 patient coming back next week Cancelled 08/19/2016 Appointment: Injection 07/29/2016 Patient Education: Patient Medication Summary Completed 07/29/2016 Appointment: Giselle Mccoy WPtel: [address] [place], [place] [phone] (30 min) Complex 07/22/2016 Visit Plan: Diabetes-having hypoglycemia in the mornings-insulin adjusted-patient and verbalized understanding of plan. Follow up in 1 month-call sooner if still having low blood sugars. Sinus congestion-start claritin 07/15/2016 Appointment: Giselle Mccoy WPtel: [phone] [place] (30 min) Complex 07/15/2016 [...] of control. 06/03/2016 Appointment: Jennifer Knox WPtel: [facility] [place] (15 min) Moderate 06/03/2016 Patient Education: [...] MONTH 04/22/2016 Appointment: [facility] [phone] [phone] (15 min) Moderate 04/22/2016 Patient [...] needed. 01/02/2015 Appointment: [facility] Knox [phone] [facility] [place] ([place] New Patient 01/02/2015 Patient Education: [...] of control. Chronic renal disease-check labs today DECREASE NOVOLIN 70/30 18 UNITS IN THE [...]
--- NOTE | 2019-01-23 08:39 | Progress Note-Post Operative ---
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
--- OUTSIDE RECORDS SUMMARY | 2019-01-23 08:39 | XMS REPORT | CCD ---
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 Name Role Phone PP Unavailable CCM Unavailable Summary Purpose Interface Exchange Insurance Providers Payer name Policy type / Coverage type Covered alliance party ID Effective Begin Date Effective End Date [facility] Commercial Insurance [id number] Unknown Family history Runs in the family [...] Start Date Stop Date Status Fill Instructions Keflex 500 mg capsule RxNorm: 270932 1 Capsule(s) PO TID 11/23/2018 11/29/2018 Active silver sulfadiazine 1 % topical cream RxNorm: 245204 1 Application TOP BID 11/23/2018 No Stop Date Active carvedilol 12.5 mg tablet RxNorm: 467542 Tablet(s) TAKE ONE TABLET BY MOUTH TWICE A DAY 11/01/2018 10/26/2019 Active terazosin 2 mg capsule RxNorm: 537975 Capsule(s) TAKE ONE CAPSULE BY MOUTH DAILY 09/06/2018 08/31/2019 Active levothyroxine 100 mcg tablet RxNorm: 936763 TAKE ONE TABLET BY MOUTH DAILY 09/06/2018 02/02/2019 Active Contour Test Strips RxNorm: TEST BLOOD SUGAR TWO TIMES A DAY E11.65 08/30/2018 03/01/2020 Active Lantus Solostar U-100 Insulin 100 unit/mL (3 mL) subcutaneous pen RxNorm: 144461 INJECT 35 UNITS UNDER THE SKIN EVERY NIGHT AT BEDTIME 08/22/2018 09/24/2020 Active carvedilol 12.5 mg tablet RxNorm: 896281 TAKE ONE TABLET BY MOUTH TWICE A DAY 08/07/2018 10/31/2018 Inactive Humulin 70/30 U-100 Insulin 100 unit/mL subcutaneous suspension RxNorm: 773258 Unit(s) INJECT 18 UNITS UNDER THE SKIN EVERY MORNING 06/20/2018 09/11/2018 Inactive Humulin 70/30 U-100 Insulin 100 unit/mL subcutaneous suspension RxNorm: 101166 INJECT 18 UNITS UNDER THE SKIN EVERY MORNING 06/20/2018 06/19/2018 Inactive terazosin 2 mg capsule RxNorm: 958391 TAKE ONE CAPSULE BY MOUTH DAILY 06/09/2018 09/05/2018 Inactive Humulin 70/30 U-100 Insulin 100 unit/mL subcutaneous suspension RxNorm: 462521 18 Unit(s) SQ QAM 05/15/2018 06/19/2018 Inactive levothyroxine 100 mcg tablet RxNorm: 763139 1 Tablet(s) PO daily 05/11/2018 09/05/2018 Inactive carvedilol 12.5 mg tablet RxNorm: 644285 TAKE ONE TABLET BY MOUTH TWICE A DAY 05/05/2018 08/06/2018 Inactive losartan 100 mg tablet RxNorm: 651225 TAKE ONE TABLET BY MOUTH DAILY 03/24/2018 06/10/2020 Active terazosin 2 mg capsule RxNorm: 833497 TAKE ONE CAPSULE BY MOUTH DAILY 03/07/2018 06/08/2018 Inactive cyanocobalamin (vit B-12) 1,000 mcg/mL injection solution RxNorm: 807640 1 Milliliter(s) Inj 01/12/2018 01/12/2018 Inactive Lantus Solostar U-100 Insulin 100 unit/mL (3 mL) subcutaneous pen RxNorm: 840650 Unit(s) INJECT 24 UNITS UNDER THE SKIN EVERY NIGHT AT BEDTIME 01/12/2018 08/21/2018 Inactive Humulin 70/30 U-100 Insulin 100 unit/mL subcutaneous suspension RxNorm: 235857 INJECT 18 UNITS UNDER THE SKIN EVERY MORNING 11/14/2017 03/05/2018 Inactive carvedilol 12.5 mg tablet RxNorm: 263494 TAKE ONE TABLET BY MOUTH TWICE A DAY 11/07/2017 05/04/2018 Inactive cyanocobalamin (vit B-12) 1,000 mcg/mL injection solution RxNorm: 569251 Milliliter(s) Inj 09/15/2017 09/15/2017 Inactive terazosin 2 mg capsule RxNorm: 092945 Capsule(s) TAKE ONE CAPSULE BY MOUTH DAILY 09/07/2017 03/05/2018 Inactive Lantus Solostar 100 unit/mL (3 mL) subcutaneous insulin pen RxNorm: 858698 INJECT 35 UNITS UNDER THE SKIN EVERY NIGHT AT BEDTIME 08/29/2017 01/11/2018 Inactive One Touch Test strips RxNorm: 1 test Miscellaneous BID 08/22/2017 08/16/2018 Inactive Contour Test Strips RxNorm: TEST BLOOD SUGAR TWO TIMES A DAY E11.65 08/22/2017 08/29/2018 Inactive Tamiflu 75 mg capsule RxNorm: 894958 1 Capsule(s) PO daily 08/17/2017 08/16/2017 Inactive Tamiflu 75 mg capsule RxNorm: 746686 1 Capsule(s) PO daily 08/17/2017 08/26/2017 Inactive cyanocobalamin (vit B-12) 1,000 mcg/mL injection solution RxNorm: 797846 1 Milliliter(s) Inj 08/17/2017 08/17/2017 Inactive carvedilol 12.5 mg tablet RxNorm: 610023 TAKE ONE TABLET BY MOUTH TWICE A DAY 08/10/2017 11/06/2017 Inactive cyanocobalamin (vit B-12) 1,000 mcg/mL injection solution RxNorm: 826380 1 Milliliter(s) Inj 07/19/2017 07/19/2017 Inactive Humulin 70/30 100 unit/mL subcutaneous suspension RxNorm: 184634 14 Unit(s) SQ QAM 07/06/2017 05/14/2018 Inactive Lantus Solostar 100 unit/mL (3 mL) subcutaneous insulin pen RxNorm: 087749 26 Unit(s) SQ QHS 07/06/2017 08/28/2017 Inactive losartan 100 mg tablet RxNorm: 878909 TAKE ONE TABLET BY MOUTH DAILY 06/07/2017 03/23/2018 Inactive Lantus Solostar 100 unit/mL (3 mL) subcutaneous insulin pen RxNorm: 013765 28 Unit(s) SQ QHS 05/19/2017 07/05/2017 Inactive cyanocobalamin (vit B-12) 1,000 mcg/mL injection solution RxNorm: 941607 1 Milliliter(s) Inj 05/19/2017 05/19/2017 Inactive terazosin 2 mg capsule RxNorm: 768682 TAKE ONE CAPSULE BY MOUTH DAILY 05/16/2017 09/06/2017 Inactive cyanocobalamin (vit B-12) 1,000 mcg/mL injection solution RxNorm: 423719 1 Milliliter(s) Inj 04/06/2017 04/06/2017 Inactive cyanocobalamin (vit B-12) 1,000 mcg/mL injection solution RxNorm: 896690 Milliliter(s) Inj 01/04/2017 01/04/2017 Inactive Humulin 70/30 U-100 Insulin 100 unit/mL subcutaneous suspension RxNorm: 506061 18 Unit(s) SQ QAM 12/22/2016 06/04/2017 Inactive cyanocobalamin (vit B-12) 1,000 mcg/mL injection solution RxNorm: 162503 1 Milliliter(s) Inj 12/10/2016 12/10/2016 Inactive Zithromax Z-Jose 250 mg tablet RxNorm: 833624 1 Tablet(s) PO UD 11/16/2016 11/20/2016 Inactive terazosin 2 mg capsule RxNorm: 352335 TAKE ONE CAPSULE BY MOUTH DAILY 11/08/2016 05/06/2017 Inactive Lantus Solostar 100 unit/mL (3 mL) subcutaneous insulin pen RxNorm: 662292 INJECT 35 UNITS UNDER THE SKIN EVERY NIGHT AT BEDTIME 10/22/2016 07/18/2017 Inactive cyanocobalamin (vit B-12) 1,000 mcg/mL injection solution RxNorm: 604777 Milliliter(s) Inj 10/13/2016 10/13/2016 Inactive cyanocobalamin (vit B-12) 1,000 mcg/mL injection solution RxNorm: 462523 1 Milliliter(s) Inj 09/03/2016 09/03/2016 Inactive Contour Test Strips RxNorm: TEST BLOOD SUGAR TWO TIMES A DAY E11.65 08/19/2016 08/21/2017 Inactive carvedilol 12.5 mg tablet RxNorm: 901608 TAKE ONE TABLET BY MOUTH TWICE A DAY 08/05/2016 10/31/2018 Inactive carvedilol 12.5 mg tablet RxNorm: 19990924 TAKE ONE TABLET BY MOUTH TWICE A DAY 08/05/2016 01/01/2017 Inactive carvedilol 12.5 mg tablet RxNorm: 511285 1 Tablet(s) PO BID 08/04/2016 10/31/2018 Inactive cyanocobalamin (vit B-12) 1,000 mcg/mL injection solution RxNorm: 967700 Milliliter(s) Inj 07/29/2016 07/29/2016 Inactive Lantus Solostar 100 unit/mL (3 mL) subcutaneous insulin pen RxNorm: 201018 30 Unit(s) SQ QHS 07/15/2016 05/18/2017 Inactive Humulin 70/30 100 unit/mL subcutaneous suspension RxNorm: 485018 18 Unit(s) SQ QAM 07/15/2016 12/21/2016 Inactive losartan 100 mg tablet RxNorm: 489739 TAKE ONE TABLET BY MOUTH DAILY 07/08/2016 06/02/2017 Inactive terazosin 2 mg capsule RxNorm: 497245 TAKE ONE CAPSULE BY MOUTH DAILY 06/10/2016 11/06/2016 Inactive cyanocobalamin (vit B-12) 1,000 mcg/mL injection solution RxNorm: 382693 1 Milliliter(s) Inj 06/03/2016 06/03/2016 Inactive Humulin 70/30 100 unit/mL subcutaneous suspension RxNorm: 865365 Unit(s) INJECT 10 UNITS UNDER THE SKIN 06/01/2016 07/14/2016 Inactive Request already responded to by other means (e.g. phone or fax) Humulin 70/30 100 unit/mL subcutaneous suspension RxNorm: 615314 INJECT 10 UNITS UNDER THE SKIN BEFORE MEALS 06/01/2016 05/31/2016 Inactive Request already responded to by other means (e.g. phone or fax) Lantus Solostar 100 unit/mL (3 mL) subcutaneous insulin pen RxNorm: 260718 35 Unit(s) SQ QHS 05/26/2016 07/14/2016 Inactive Humulin 70/30 100 unit/mL subcutaneous suspension RxNorm: 177063 10 Unit(s) SQ QA 05/24/2016 10/02/2016 Inactive Humulin 70/30 100 unit/mL subcutaneous suspension RxNorm: 427079 21 Unit(s) SQ QA 05/24/2016 05/23/2016 Inactive Lantus Solostar 100 unit/mL (3 mL) subcutaneous insulin pen RxNorm: 692067 32 Unit(s) SQ Q 04/22/2016 05/25/2016 Inactive Humulin 70/30 100 unit/mL subcutaneous suspension RxNorm: 618876 21 Unit(s) SQ QA 04/22/2016 05/24/2016 Inactive with breakfast hydrochlorothiazide 25 mg tablet RxNorm: 832747 TAKE ONE TABLET BY MOUTH DAILY 02/04/2016 02/16/2016 Inactive terazosin 2 mg capsule RxNorm: 913251 Capsule(s) TAKE ONE CAPSULE BY MOUTH DAILY. 12/01/2015 05/28/2016 Inactive Humulin 70/30 100 unit/mL subcutaneous suspension RxNorm: 107889 INJECT 10 UNITS UNDER THE SKIN BEFORE MEALS 11/06/2015 03/16/2016 Inactive hydrochlorothiazide 25 mg tablet RxNorm: 201602 1 Tablet(s) PO daily 10/06/2015 02/02/2016 Inactive cyanocobalamin (vit B-12) 1,000 mcg/mL injection solution RxNorm: 454911 Milliliter(s) Inj 09/15/2015 09/15/2015 Inactive Humulin 70/30 100 unit/mL subcutaneous suspension RxNorm: 239957 INJECT 10 UNITS UNDER THE SKIN BEFORE MEALS 09/08/2015 10/10/2015 Inactive cyanocobalamin (vit B-12) 1,000 mcg/mL injection solution RxNorm: 135216 Milliliter(s) Inj 09/08/2015 09/08/2015 Inactive terazosin 2 mg capsule RxNorm: 457854 TAKE ONE CAPSULE BY MOUTH DAILY. DISCONTINUE 5 MG CAPSULES 09/01/2015 11/29/2015 Inactive cyanocobalamin (vit B-12) 1,000 mcg/mL injection solution RxNorm: 117653 Milliliter(s) Inj 09/01/2015 09/01/2015 Inactive cyanocobalamin (vit B-12) 1,000 mcg/mL injection solution RxNorm: 374124 Milliliter(s) Inj 08/25/2015 08/25/2015 Inactive levothyroxine 112 mcg tablet RxNorm: 262068 1 Tablet(s) PO daily 08/06/2015 02/14/2017 Inactive Lantus Solostar 100 unit/mL (3 mL) subcutaneous insulin pen RxNorm: 679835 35 Unit(s) SQ QHS 08/06/2015 04/21/2016 Inactive Humulin 70/30 100 unit/mL subcutaneous suspension RxNorm: 422981 20 Unit(s) SQ AC 08/05/2015 04/21/2016 Inactive with breakfast carvedilol 12.5 mg tablet RxNorm: 241995 1 Tablet(s) PO BID 08/05/2015 01/31/2016 Inactive Humulin 70/30 100 unit/mL subcutaneous suspension RxNorm: 649159 10 Unit(s) SQ AC 07/22/2015 08/04/2015 Inactive losartan 100 mg tablet RxNorm: 856195 TAKE ONE TABLET BY MOUTH DAILY 06/25/2015 06/18/2016 Inactive Lantus Solostar 100 unit/mL (3 mL) subcutaneous insulin pen RxNorm: 756594 30 Unit(s) SQ QHS 06/18/2015 08/05/2015 Inactive terazosin 2 mg capsule RxNorm: 406669 1 Capsule(s) PO daily 04/14/2015 08/11/2015 Inactive DC the 5mg order terazosin 2 mg capsule RxNorm: 937392 1 Capsule(s) PO daily 04/14/2015 04/13/2015 Inactive Synthroid 25 mcg tablet RxNorm: 164679 1 Tablet(s) PO daily 04/11/2015 02/14/2017 Inactive Synthroid 25 mcg tablet RxNorm: 012277 1 Tablet(s) PO daily 04/11/2015 04/10/2015 Inactive Lantus Solostar 100 unit/mL (3 mL) subcutaneous insulin pen RxNorm: 949511 30 Unit(s) SQ QHS 04/04/2015 06/17/2015 Inactive terazosin 5 mg tablet RxNorm: 727700 1 Tablet(s) PO daily 04/03/2015 04/13/2015 Inactive Lantus Solostar 100 unit/mL (3 mL) subcutaneous insulin pen RxNorm: 855584 25 Unit(s) SQ QHS 01/08/2015 04/03/2015 Inactive carvedilol 25 mg tablet RxNorm: 429292 1 Tablet(s) PO BID 01/02/2015 01/31/2015 Inactive terazosin 5 mg tablet RxNorm: 590826 1 Tablet(s) PO daily 01/02/2015 01/01/2015 Inactive levothyroxine 125 mcg tablet RxNorm: 518687 1 Tablet(s) PO daily 01/02/2015 01/31/2015 Inactive terazosin 5 mg tablet RxNorm: 791844 1/2 Tablet(s) PO daily 01/02/2015 01/31/2015 Inactive losartan 100 mg tablet RxNorm: 120700 1 Tablet(s) PO daily 12/24/2014 04/22/2015 Inactive losartan 100 mg tablet RxNorm: 775908 1 Tablet(s) PO daily 12/24/2014 12/23/2014 Inactive Contour Test Strips RxNorm: Miscellaneous test blood sugars BID 12/06/2014 12/05/2014 Inactive dx 250.00 Contour Test Strips RxNorm: Miscellaneous test blood sugars BID or UD 12/06/2014 06/23/2015 Inactive dx 250.00 [SAVINGS FOR NON-COVERED DRUGS -- BIN:[id number], PCN: [id number], Group: [id number], ID# [id number], Questions: . THIS IS NOT INSURANCE.] folic acid 1 mg tablet RxNorm: 836976 1 Tablet(s) PO QHS No Start Date Active Microlet Lancet RxNorm: Miscellaneous Test BID or Ud No Start Date Active 250.0 aspirin 81 mg tablet,delayed release RxNorm: 209971 1 Tablet(s) PO daily No Start Date Active Stool Softener 100 mg capsule RxNorm: 7776536 1 Capsule(s) PO every other day No Start Date Active folic acid oral RxNorm: 4511 oral No Start Date 05/19/2017 Inactive cyanocobalamin (vit B-12) 100 mcg tablet RxNorm: 624961 1 Tablet(s) PO daily No Start Date 02/14/2017 Inactive hydrochlorothiazide 25 mg tablet RxNorm: 095608 1 Tablet(s) PO daily No Start Date 10/05/2015 Inactive Stool Softener 100 mg capsule RxNorm: 8636427 1 Capsule(s) PO daily No Start Date 05/18/2017 Inactive Humulin 70/30 100 unit/mL subcutaneous suspension RxNorm: 174553 20 Unit(s) SQ QAM No Start Date 07/21/2015 Inactive levothyroxine 100 mcg tablet RxNorm: 895173 1 Tablet(s) PO daily No Start Date 05/10/2018 Inactive Lantus Solostar 100 unit/mL (3 mL) subcutaneous insulin pen RxNorm: 224923 20 Unit(s) SQ QHS No Start Date 01/07/2015 Inactive ferrous sulfate 325 mg (65 mg iron) tablet RxNorm: 112247 1 Tablet(s) PO daily No Start Date 05/18/2017 Inactive Medication Administered Medication Codes Instructions Start Date Status cyanocobalamin (vit B-12) 1,000 mcg/mL injection solution RxNorm: 474158 1Milliliter 01/12/2018 No longer Active cyanocobalamin (vit B-12) 1,000 mcg/mL injection solution RxNorm: 948328 Milliliter 09/15/2017 No longer Active cyanocobalamin (vit B-12) 1,000 mcg/mL injection solution RxNorm: 170887 1Milliliter 08/17/2017 No longer Active cyanocobalamin (vit B-12) 1,000 mcg/mL injection solution RxNorm: 696716 1Milliliter 07/19/2017 No longer Active cyanocobalamin (vit B-12) 1,000 mcg/mL injection solution RxNorm: 521942 1Milliliter 05/19/2017 No longer Active cyanocobalamin (vit B-12) 1,000 mcg/mL injection solution RxNorm: 864364 1Milliliter 04/06/2017 No longer Active cyanocobalamin (vit B-12) 1,000 mcg/mL injection solution RxNorm: 915584 Milliliter 01/04/2017 No longer Active cyanocobalamin (vit B-12) 1,000 mcg/mL injection solution RxNorm: 080902 1Milliliter 12/10/2016 No longer Active cyanocobalamin (vit B-12) 1,000 mcg/mL injection solution RxNorm: 231548 Milliliter 10/13/2016 No longer Active cyanocobalamin (vit B-12) 1,000 mcg/mL injection solution RxNorm: 201026 1Milliliter 09/03/2016 No longer Active cyanocobalamin (vit B-12) 1,000 mcg/mL injection solution RxNorm: 750148 Milliliter 07/29/2016 No longer Active cyanocobalamin (vit B-12) 1,000 mcg/mL injection solution RxNorm: 510007 1Milliliter 06/03/2016 No longer Active cyanocobalamin (vit B-12) 1,000 mcg/mL injection solution RxNorm: 958720 Milliliter 09/15/2015 No longer Active cyanocobalamin (vit B-12) 1,000 mcg/mL injection solution RxNorm: 390799 Milliliter 09/08/2015 No longer Active cyanocobalamin (vit B-12) 1,000 mcg/mL injection solution RxNorm: 386953 Milliliter 09/01/2015 No longer Active cyanocobalamin (vit B-12) 1,000 mcg/mL injection solution RxNorm: 309399 Milliliter 08/25/2015 No longer Active Immunizations Vaccine [...] 29.3 pg 08/15/2018 Cbc With Differential Ord2 [place]% 10.9 % 08/15/2018 Cbc With Differential Ord2 [...] 2.66 K/ul 08/15/2018 Cbc With Differential Ord2 [place] ABS# 0.7 K/ul 08/15/2018 Cbc With Differential Ord2 Eos ABS# 0.2 K/ul 08/15/2018 Cbc With Differential Ord2 Baso ABS# 0.0 K/ul 08/15/2018 Comp Metabolic Add734 NA 139 mEq/L 08/15/2018 Comp Metabolic Bdo600 K 4.0 mEq/L 08/15/2018 Comp Metabolic Ltj844 CL 107 mEq/L 08/15/2018 Comp Metabolic Crk461 CO2 25.0 mEq/L 08/15/2018 Comp Metabolic Gjb356 ANION GAP 11 08/15/2018 Comp Metabolic Apa009 GLUCOSE 142 mg/dL 08/15/2018 Comp Metabolic Arc429 Creat 0.9 mg/dL 08/15/2018 Comp Metabolic Stp835 eGFR 64 ml/min/1.73m2 08/15/2018 Comp Metabolic Sfo440 BUN 22 mg/dL 08/15/2018 Comp Metabolic Tsb564 B/C Ratio 24.4 Ratio 08/15/2018 Comp Metabolic Snq066 CALCIUM 9.3 mg/dL 08/15/2018 Comp Metabolic Hix341 ALK PHOS 83 U/L 08/15/2018 Comp Metabolic Dyw706 AST(SGOT) 35 U/L 08/15/2018 Comp Metabolic Zyg850 ALT(SGPT) 19 U/L 08/15/2018 Comp Metabolic Pmm033 BILI T 0.6 mg/dL 08/15/2018 Comp Metabolic Lvx207 ALBUMIN 3.7 g/dL 08/15/2018 Comp Metabolic Jka772 TPRO 6.3 g/dL 08/15/2018 Comp Metabolic Lxb842 GLOB 2.6 g/dL 08/15/2018 Comp Metabolic Lte155 A/G Ratio 1.5 Ratio 08/15/2018 Comp Metabolic Xza456 Osmo 283 mOsmo 08/15/2018 Tsh Ord6 TSH (3rd IS) 2.43 uIU/mL 08/15/2018 %Hba1C Zxt743 % HbA1c 04882- 6 7.4 % 08/15/2018 %Hba1C Sly555 Gluc Ave 166 mg/dL 08/15/2018 Free T4 Bzl247 FREE T4 1.21 ng/dL 05/15/2018 Tsh Ord6 TSH (3rd IS) 0.97 uIU/mL 05/15/2018 Comp Metabolic Djm696 NA 142 mEq/L 05/15/2018 Comp Metabolic Wax102 K 4.0 mEq/L 05/15/2018 Comp Metabolic Wgy849 CL 107 mEq/L 05/15/2018 Comp Metabolic Vjm094 CO2 28.0 mEq/L 05/15/2018 Comp Metabolic Hwo791 ANION GAP 11 05/15/2018 Comp Metabolic Ece612 GLUCOSE 211 mg/dL 05/15/2018 Comp Metabolic Uyd984 Creat 0.9 mg/dL 05/15/2018 Comp Metabolic Urk708 eGFR 61 ml/min/1.73m2 05/15/2018 Comp Metabolic Rxt279 BUN 21 mg/dL 05/15/2018 Comp Metabolic Hcu991 B/C Ratio 22.6 Ratio 05/15/2018 Comp Metabolic Psg450 CALCIUM 9.1 mg/dL 05/15/2018 Comp Metabolic Ade283 ALK PHOS 85 U/L 05/15/2018 Comp Metabolic Pbi072 AST(SGOT) 36 U/L 05/15/2018 Comp Metabolic Ptp658 ALT(SGPT) 19 U/L 05/15/2018 Comp Metabolic Vfj952 BILI T 0.6 mg/dL 05/15/2018 Comp Metabolic Xse421 ALBUMIN 3.8 g/dL 05/15/2018 Comp Metabolic Ltv220 TPRO 6.2 g/dL 05/15/2018 Comp Metabolic Bjt782 GLOB 2.4 g/dL 05/15/2018 Comp Metabolic Irj452 A/G Ratio 1.6 Ratio 05/15/2018 Comp Metabolic Fnh733 Osmo 292 mOsmo 05/15/2018 %Hba1C Kcc345 % HbA1c 90179- 6 7.8 % 05/15/2018 %Hba1C Wop907 Gluc Ave 177 mg/dL 05/15/2018 Comp Metabolic Tww163 NA 139 mEq/L 11/28/2017 Comp Metabolic Esm088 K 4.1 mEq/L 11/28/2017 Comp Metabolic Fuy624 CL 105 mEq/L 11/28/2017 Comp Metabolic Ppn079 CO2 26.0 mEq/L 11/28/2017 Comp Metabolic Ksz854 ANION GAP 12 11/28/2017 Comp Metabolic Yoi465 GLUCOSE 132 mg/dL 11/28/2017 Comp Metabolic Tqo415 Creat 0.9 mg/dL 11/28/2017 Comp Metabolic Cog821 eGFR 66 ml/min/1.73m2 11/28/2017 Comp Metabolic Hyh550 BUN 17 mg/dL 11/28/2017 Comp Metabolic Lbv852 B/C Ratio 19.5 Ratio 11/28/2017 Comp Metabolic Wkt654 CALCIUM 9.1 mg/dL 11/28/2017 Comp Metabolic Spn563 ALK PHOS 78 U/L 11/28/2017 Comp Metabolic Rbd303 AST(SGOT) 35 U/L 11/28/2017 Comp Metabolic Pnf782 ALT(SGPT) 17 U/L 11/28/2017 Comp Metabolic Qxt461 BILI T 0.6 mg/dL 11/28/2017 Comp Metabolic Wvl999 ALBUMIN 3.9 g/dL 11/28/2017 Comp Metabolic Xgc310 TPRO 6.4 g/dL 11/28/2017 Comp Metabolic Rzd974 GLOB 2.5 g/dL 11/28/2017 Comp Metabolic Oup695 A/G Ratio 1.6 Ratio 11/28/2017 Comp Metabolic Yqc615 Osmo 281 mOsmo 11/28/2017 Tsh Ord6 TSH (3rd IS) 1.14 uIU/mL 11/28/2017 Free T4 Xky725 FREE T4 1.05 ng/dL 11/28/2017 %Hba1C Irj468 % HbA1c 97981- 6 7.7 % 11/25/2017 %Hba1C Uqc513 Gluc Ave 174 mg/dL 11/25/2017 Cbc With [...] 29.8 pg 11/25/2017 Cbc With Differential Ord2 [place]% 10.2 % 11/25/2017 Cbc With Differential Ord2 [...] 2.56 K/ul 11/25/2017 Cbc With Differential Ord2 [place] ABS# 0.7 K/ul 11/25/2017 Cbc With Differential [...] 30.3 pg 05/19/2017 Cbc With Differential Ord2 [place]% 6.8 % 05/19/2017 Cbc With Differential Ord2 [...] 1.64 K/ul 05/19/2017 Cbc With Differential Ord2 [place] ABS# 0.6 K/ul 05/19/2017 Cbc With Differential Ord2 Eos ABS# 0.2 K/ul 05/19/2017 Cbc With Differential Ord2 Baso ABS# 0.0 K/ul 05/19/2017 B12 Lia380 B12 >1500.00 pg/ml 05/19/2017 Free T4 Ldi634 FREE T4 1.10 ng/dL 05/19/2017 %Hba1C Brg777 % HbA1c 94879- 6 6.8 % 05/19/2017 %Hba1C Hem094 Gluc Ave 148 mg/dL 05/19/2017 Tsh Ord6 hTSH II 1.73 uIU/mL 05/19/2017 Comp Metabolic Sro330 NA 140 mEq/L 05/19/2017 Comp Metabolic Aey549 K 3.8 mEq/L 05/19/2017 Comp Metabolic Tou677 CL 108 mEq/L 05/19/2017 Comp Metabolic Asj004 CO2 21.0 mEq/L 05/19/2017 Comp Metabolic Gyo346 ANION GAP 15 05/19/2017 Comp Metabolic Jun231 GLUCOSE 207 mg/dL 05/19/2017 Comp Metabolic Ika805 Creat 1.0 mg/dL 05/19/2017 Comp Metabolic Iyi546 eGFR 55 ml/min/1.73m2 05/19/2017 Comp Metabolic Atq154 BUN 21 mg/dL 05/19/2017 Comp Metabolic Rvv440 B/C Ratio 20.4 Ratio 05/19/2017 Comp Metabolic Ywc135 CALCIUM 9.1 mg/dL 05/19/2017 Comp Metabolic Zwk544 ALK PHOS 74 U/L 05/19/2017 Comp Metabolic Zjw683 AST(SGOT) 32 U/L 05/19/2017 Comp Metabolic Hyc411 ALT(SGPT) 15 U/L 05/19/2017 Comp Metabolic Aws131 BILI T 0.6 mg/dL 05/19/2017 Comp Metabolic Fao654 ALBUMIN 3.9 g/dL 05/19/2017 Comp Metabolic Xil720 TPRO 6.2 g/dL 05/19/2017 Comp Metabolic Jev014 GLOB 2.3 g/dL 05/19/2017 Comp Metabolic Wyj872 A/G Ratio 1.6 Ratio 05/19/2017 Comp Metabolic Ajj267 Osmo 288 mOsmo 05/19/2017 Cbc With Differential [...] 29.3 pg 12/10/2016 Cbc With Differential Ord2 [place]% 7.1 % 12/10/2016 Cbc With Differential Ord2 [...] 2.50 K/ul 12/10/2016 Cbc With Differential Ord2 [place] ABS# 0.5 K/ul 12/10/2016 Cbc With Differential Ord2 Eos ABS# 0.1 K/ul 12/10/2016 Cbc With Differential Ord2 Baso ABS# 0.0 K/ul 12/10/2016 B12 Ugc906 B12 222.00 pg/ml 12/10/2016 %Hba1C Aqz265 % HbA1c 35978- 6 7.5 % 11/16/2016 %Hba1C Mvi858 Gluc Ave 169 mg/dL 11/16/2016 Free T4 Wrp150 FREE T4 1.03 ng/dL 11/16/2016 Comp Metabolic Bma684 NA 138 mEq/L 11/16/2016 Comp Metabolic Bxs222 K 3.8 mEq/L 11/16/2016 Comp Metabolic Mgf507 CL 103 mEq/L 11/16/2016 Comp Metabolic Bfe880 CO2 26.0 mEq/L 11/16/2016 Comp Metabolic Imh205 ANION GAP 13 11/16/2016 Comp Metabolic Dif542 GLUCOSE 235 mg/dL 11/16/2016 Comp Metabolic Kzq095 Creat 0.9 mg/dL 11/16/2016 Comp Metabolic Ktb142 eGFR 62 ml/min/1.73m2 11/16/2016 Comp Metabolic Ktp180 BUN 20 mg/dL 11/16/2016 Comp Metabolic Wqd386 B/C Ratio 21.7 Ratio 11/16/2016 Comp Metabolic Xcu941 CALCIUM 8.9 mg/dL 11/16/2016 Comp Metabolic Mcf673 ALK PHOS 75 U/L 11/16/2016 Comp Metabolic Diy801 AST(SGOT) 30 U/L 11/16/2016 Comp Metabolic Xgd681 ALT(SGPT) 13 U/L 11/16/2016 Comp Metabolic Iab332 BILI T 0.6 mg/dL 11/16/2016 Comp Metabolic Kfi589 ALBUMIN 3.8 g/dL 11/16/2016 Comp Metabolic Dlf851 TPRO 6.8 g/dL 11/16/2016 Comp Metabolic Zjg233 GLOB 3.1 g/dL 11/16/2016 Comp Metabolic Mcp364 A/G Ratio 1.2 Ratio 11/16/2016 Comp Metabolic Veu018 Osmo 286 mOsmo 11/16/2016 Tsh Ord6 hTSH II 2.50 uIU/mL 11/16/2016 Tsh Ord6 hTSH II 3.18 uIU/mL 05/21/2016 Lipid Ord30 CHOL 212 mg/dL 05/21/2016 Lipid Ord30 HDL 43.0 mg/dl 05/21/2016 Lipid Ord30 TRIG 164 mg/dL 05/21/2016 Lipid Ord30 LDL 136 mg/dL 05/21/2016 Lipid Ord30 C/HDL 4.9 Ratio 05/21/2016 B12 Qia205 B12 159.00 pg/ml 05/21/2016 %Hba1C Bcx709 % HbA1c 59435- 6 7.5 % 05/21/2016 %Hba1C Xny378 Gluc Ave 169 mg/dL 05/21/2016 Folate Ord36 Folate >23.80 ng/mL 05/21/2016 Free T4 Zhu395 FREE T4 1.03 ng/dL 05/21/2016 CHEM 14 20280127 AST 33 U/L 03/15/2016 CHEM 14 20280127 ALT 13 U/L 03/15/2016 CHEM 14 20280127 BUN 18 mg/dL 03/15/2016 CHEM 14 6072682 ALBUMIN 3.9 g/dL 03/15/2016 CHEM 14 0957454 CHLORIDE 105 mmol/L 03/15/2016 CHEM 14 4094907 Bili Total 0.4 mg/dL 03/15/2016 CHEM 14 0405796 ALK PHOS 60 U/L 03/15/2016 CHEM 14 1274767 SODIUM 138 mmol/L 03/15/2016 CHEM 14 7737172 CREATININE 0.99 mg/dL 03/15/2016 CHEM 14 2764539 CALCIUM 9.4 mg/dL 03/15/2016 CHEM 14 6518149 POTASSIUM 3.8 mmol/L 03/15/2016 CHEM 14 0047862 TOTAL PROTEIN 6.7 g/dL 03/15/2016 CHEM 14 6875532 GLUCOSE 109 mg/dL 03/15/2016 CHEM 14 6534850 Bicarbonate 27 mmol/L 03/15/2016 CHEM 14 3916882 AGAP 6 mmol/L 03/15/2016 GFR CALC [id number] GFR Non Afr Amr 54 mL/min 03/15/2016 GFR CALC [id number] GFR Afr Amr >60 mL/min 03/15/2016 B12 Krz699 B12 46.00 pg/ml 08/07/2015 Iron Ord72 Iron [...] Ord2 RDW 16.6 % 08/05/2015 Free T4 Vgk584 FREE T4 1.33 ng/dL 08/05/2015 Comp Metabolic Dru640 NA 137 mEq/L 08/05/2015 Comp Metabolic Fss506 K 4.5 mEq/L 08/05/2015 Comp Metabolic Sls873 CL 104 mEq/L 08/05/2015 Comp Metabolic Jqk508 CO2 26.0 mEq/L 08/05/2015 Comp Metabolic Qog728 ANION GAP 12 08/05/2015 Comp Metabolic Rzc282 GLUCOSE 146 mg/dL 08/05/2015 Comp Metabolic Ywz409 Creat 1.0 mg/dL 08/05/2015 Comp Metabolic Wxm339 eGFR 56 ml/min/1.73m2 08/05/2015 Comp Metabolic Vvp913 BUN 23 mg/dL 08/05/2015 Comp Metabolic Bbu362 B/C Ratio 22.8 Ratio 08/05/2015 Comp Metabolic Auj704 CALCIUM 9.3 mg/dL 08/05/2015 Comp Metabolic Cgt085 ALK PHOS 71 U/L 08/05/2015 Comp Metabolic Ziw020 AST(SGOT) 33 U/L 08/05/2015 Comp Metabolic Xei080 ALT(SGPT) 15 U/L 08/05/2015 Comp Metabolic Mfp414 BILI T 0.6 mg/dL 08/05/2015 Comp Metabolic Qvv892 ALBUMIN 3.9 g/dL 08/05/2015 Comp Metabolic Owd746 TPRO 6.5 g/dL 08/05/2015 Comp Metabolic Mwu550 GLOB 2.6 g/dL 08/05/2015 Comp Metabolic Pvr327 A/G Ratio 1.5 Ratio 08/05/2015 Comp Metabolic Iot893 Osmo 280 mOsmo 08/05/2015 Tsh Ord6 hTSH II 0.36 uIU/mL 08/05/2015 %Hba1C Gdv790 % HbA1c 61515- 6 8.1 % 08/05/2015 %Hba1C Xul045 Gluc Ave 186 mg/dL 08/05/2015 Free T4 Ois278 FREE T4 0.91 ng/dL 04/11/2015 %Hba1C Kap784 % HbA1c 87012- 6 8.3 % 04/10/2015 %Hba1C Wfp945 Gluc Ave 192 mg/dL 04/10/2015 Cbc With [...] Ord2 RDW 15.8 % 04/10/2015 Comp Metabolic Ymz167 NA 134 mEq/L 04/10/2015 Comp Metabolic Zll551 K 4.1 mEq/L 04/10/2015 Comp Metabolic Jak867 CL 105 mEq/L 04/10/2015 Comp Metabolic Oik253 CO2 26.0 mEq/L 04/10/2015 Comp Metabolic Yuo256 ANION GAP 7 04/10/2015 Comp Metabolic Gwt024 GLUCOSE 126 mg/dL 04/10/2015 Comp Metabolic Rui082 Creat 1.0 mg/dL 04/10/2015 Comp Metabolic Fcj992 eGFR 58 ml/min/1.73m2 04/10/2015 Comp Metabolic Wrw690 BUN 29 mg/dL 04/10/2015 Comp Metabolic Ieb883 B/C Ratio 29.6 Ratio 04/10/2015 Comp Metabolic Hdw821 CALCIUM 9.3 mg/dL 04/10/2015 Comp Metabolic Opr043 ALK PHOS 63 U/L 04/10/2015 Comp Metabolic Amq903 AST(SGOT) 31 U/L 04/10/2015 Comp Metabolic Wlv189 ALT(SGPT) 14 U/L 04/10/2015 Comp Metabolic Pqu083 BILI T 0.6 mg/dL 04/10/2015 Comp Metabolic Kit512 ALBUMIN 3.9 g/dL 04/10/2015 Comp Metabolic Vsc760 TPRO 6.3 g/dL 04/10/2015 Comp Metabolic Hgc056 GLOB 2.4 g/dL 04/10/2015 Comp Metabolic Rzz627 A/G Ratio 1.6 Ratio 04/10/2015 Comp Metabolic Gwr590 Osmo 276 mOsmo 04/10/2015 Tsh Ord6 hTSH [...] Date GLUC MONITOR CONT PHYS I&R CPT-4: 41570 06/05/2018 GLUCOSE MONITORING CONT CPT-4: 06126 05/22/2018 THER/PROPH/DIAG INJ SC/IM CPT-4: 78365 01/12/2018 VITAMIN B12 INJECTION CPT- 4: J3420 01/12/2018 THER/PROPH/DIAG INJ SC/IM CPT-4: 38738 09/15/2017 VITAMIN B12 INJECTION CPT- 4: J3420 09/15/2017 THER/PROPH/DIAG INJ SC/IM CPT-4: 80163 08/17/2017 VITAMIN B12 INJECTION CPT- 4: J3420 08/17/2017 THER/PROPH/DIAG INJ SC/IM CPT-4: 48045 07/19/2017 VITAMIN B12 INJECTION CPT- 4: J3420 07/19/2017 THER/PROPH/DIAG INJ SC/IM CPT-4: 30902 05/19/2017 VITAMIN B12 INJECTION CPT- 4: J3420 05/19/2017 THER/PROPH/DIAG INJ SC/IM CPT-4: 14182 04/06/2017 VITAMIN B12 INJECTION CPT- 4: J3420 04/06/2017 THER/PROPH/DIAG INJ SC/IM CPT-4: 54040 01/04/2017 VITAMIN B12 INJECTION CPT- 4: J3420 01/04/2017 THER/PROPH/DIAG INJ SC/IM CPT-4: 00462 12/10/2016 VITAMIN B12 INJECTION CPT- 4: J3420 12/10/2016 THER/PROPH/DIAG INJ SC/IM CPT-4: 59791 10/13/2016 TRIAMCINOLONE ACET INJ NOS CPT-4: J3301 10/13/2016 THER/PROPH/DIAG INJ SC/IM CPT-4: 39047 09/03/2016 VITAMIN B12 INJECTION CPT- 4: J3420 09/03/2016 THER/PROPH/DIAG INJ SC/IM CPT-4: 51562 07/29/2016 VITAMIN B12 INJECTION CPT- 4: J3420 07/29/2016 THER/PROPH/DIAG INJ SC/IM CPT-4: 07058 06/03/2016 VITAMIN B12 INJECTION CPT- 4: J3420 06/03/2016 PNEUMOCOCCAL VACC [address]: 84461729 CPT-4: 82764 04/22/2016 ADMIN PNEUMOCOCCAL VACCINE SNOMED CT: 44006015 CPT-4: G0009 04/22/2016 VITAMIN B12 INJECTION CPT- 4: J3420 09/15/2015 THER/PROPH/DIAG INJ SC/IM CPT-4: 28155 09/15/2015 THER/PROPH/DIAG INJ SC/IM CPT-4: 16698 09/08/2015 VITAMIN B12 INJECTION CPT- 4: J3420 09/08/2015 THER/PROPH/DIAG INJ SC/IM CPT-4: 67778 09/01/2015 VITAMIN B12 INJECTION CPT- 4: J3420 09/01/2015 THER/PROPH/DIAG INJ SC/IM CPT-4: 43292 08/25/2015 VITAMIN B12 INJECTION CPT- 4: J3420 08/25/2015 Vital Signs Date Vital 11/23/2018 BMI: 41.4 Code: 49637-9 Height: 4'11" Weight: 205 lbs 08/15/2018 Blood Pressure 1: 144/70 Code: 8480-6 BMI: 40.8 Code: 12242-6 Heart Rate 1: 83 bpm Height: 4'11" SpO2: 97% Weight: 202 lbs 06/05/2018 Blood Pressure 1: 132/70 Code: 8480-6 BMI: 41.6 Code: 60159-4 Heart Rate 1: 70 bpm Height: 4'11" SpO2: 96% Weight: 206 lbs 05/22/2018 Blood Pressure 1: 148/72 Code: 8480-6 BMI: 41.6 Code: 90349-6 Heart Rate 1: 82 bpm Height: 4'11" SpO2: 95% Weight: 206 lbs 05/15/2018 Blood Pressure 1: 140/80 Code: 8480-6 BMI: 41.6 Code: 58013-7 Heart Rate 1: 86 bpm Height: 4'11" SpO2: 92% Weight: 206 lbs 01/12/2018 Blood Pressure 1: 140/78 Code: 8480-6 BMI: 42.2 Code: 01180-4 Heart Rate 1: 73 bpm Height: 4'11" SpO2: 97% Weight: 209 lbs 11/25/2017 Blood Pressure 1: 140/68 Code: 8480-6 BMI: 42.2 Code: 76976-9 Heart Rate 1: 76 bpm Height: 4'11" SpO2: 94% Weight: 209 lbs 09/15/2017 Blood Pressure 1: 146/67 Code: 8480-6 BMI: 42.2 Code: 78047-2 Heart Rate 1: 69 bpm Height: 4'11" SpO2: 97% Weight: 209 lbs 08/17/2017 Blood Pressure 1: 144/70 Code: 8480-6 BMI: 41.8 Code: 23849-1 Heart Rate 1: 63 bpm Height: 4'11" SpO2: 97% Weight: 207 lbs 07/19/2017 Blood Pressure 1: 142/74 Code: 8480-6 BMI: 41.4 Code: 42975-9 Heart Rate 1: 71 bpm Height: 4'11" SpO2: 96% Weight: 205 lbs 05/19/2017 Blood Pressure 1: 148/76 Code: 8480-6 BMI: 42.8 Code: 04187-2 Heart Rate 1: 72 bpm Height: 4'11" SpO2: 94% Weight: 212 lbs 02/15/2017 Blood Pressure 1: 154/70 Code: 8480-6 BMI: 42.5 Code: 19981-0 Heart Rate 1: 68 bpm Height: 4'11" SpO2: 97% Weight: 210 lbs 8 oz 11/16/2016 Blood Pressure 1: 142/78 Code: 8480-6 BMI: 41.6 Code: 27289-5 Heart Rate 1: 68 bpm Height: 4'11" SpO2: 95% Temperature: 36.0 (C) / 96.8 (F) Weight: 206 lbs 08/19/2016 Blood Pressure 1: 120/74 Code: 8480-6 BMI: 41.6 Code: 36574-4 Heart Rate 1: 75 bpm Height: 4'11" SpO2: 95% Weight: 206 lbs 07/15/2016 Blood Pressure 1: 140/76 Code: 8480-6 BMI: 42.0 Code: 59262-9 Heart Rate 1: 76 bpm Height: 4'11" SpO2: 96% Weight: 208 lbs 06/03/2016 Blood Pressure 1: 130/78 Code: 8480-6 BMI: 42.8 Code: 82306-3 Heart Rate 1: 72 bpm Height: 4'11" SpO2: 98% Weight: 212 lbs 04/22/2016 Blood Pressure 1: 142/84 Code: 8480-6 BMI: 41.8 Code: 87937-0 Heart Rate 1: 86 bpm Height: 4'11" SpO2: 92% Weight: 207 lbs 01/22/2016 Blood Pressure 1: 162/64 Code: 8480-6 BMI: 41.2 Code: 89163-1 Heart Rate 1: 70 bpm Height: 4'11" SpO2: 97% Weight: 204 lbs 10/23/2015 Blood Pressure 1: 130/70 Code: 8480-6 BMI: 40.4 Code: 97484-3 Heart Rate 1: 72 bpm Height: 4'11" SpO2: 95% Weight: 200 lbs 09/12/2015 Blood Pressure 1: 142/62 Code: 8480-6 BMI: 39.4 Code: 95302-1 Heart Rate 1: 63 bpm Height: 4'11" SpO2: 96% Weight: 195 lbs 08/05/2015 Blood Pressure 1: 144/60 Code: 8480-6 BMI: 41.0 Code: 40892-2 Heart Rate 1: 92 bpm Height: 4'11" SpO2: 90% SpO2: 97% Weight: 203 lbs 04/03/2015 Blood Pressure 1: 142/68 Code: 8480-6 BMI: 40.6 Code: 71266-4 Heart Rate 1: 77 bpm Height: 4'11" SpO2: 95% Weight: 201 lbs 01/30/2015 Blood Pressure 1: 150/72 Code: 8480-6 BMI: 40.2 Code: 17417-2 Heart Rate 1: 64 bpm Height: 4'11" Weight: 199 lbs 01/02/2015 Blood Pressure 1: 136/72 Code: 8480-6 BMI: 39.8 Code: 33416-3 Heart Rate 1: 68 bpm Height: 4'11" [...] data Encounters Encounter Performer Location Codes Date 27610 EST. PATIENT, LEVEL III Diagnosis: Burn of second degree of left thigh, initial encounter[ICD10: T24.212A] Chasity Knox MD, [facility] CPT-4: 99822 11/23/2018 ([id number]) 64032 EST. PATIENT, LEVEL IV Diagnosis: Type 2 diabetes mellitus with hyperglycemia[ICD10: E11.65] Diagnosis: Essential (primary) hypertension[ICD10: I10] Diagnosis: Chronic kidney disease, stage 3 (moderate)[ICD10: N18.3] Diagnosis: Low back pain[ICD10: M54.5] Giselle Knox MD, [facility] CPT-4: 56410 08/15/2018 ([id number]) 47587 EST. PATIENT, LEVEL III Diagnosis: Type 2 diabetes mellitus with hyperglycemia[ICD10: E11.65] [facility] CPT-4: 24523 06/05/2018 ([id number]) Miscellaneous no charge Diagnosis: Type 2 diabetes mellitus with hyperglycemia[ICD10: E11.65] Jennifer Knox MD, [facility] CPT-4: 58699 05/29/2018 ([id number]) 43171 EST. PATIENT, LEVEL IV Diagnosis: Type 2 diabetes mellitus with hyperglycemia[ICD10: E11.65] Diagnosis: Essential (primary) hypertension[ICD10: I10] Diagnosis: Hypothyroidism, unspecified[ICD10: E03.9] Giselle Knox MD, [facility] CPT-4: 42829 05/15/2018 ([id number]) 06947 EST. PATIENT, LEVEL IV Diagnosis: Essential (primary) hypertension[ICD10: I10] Diagnosis: Type 2 diabetes mellitus with hyperglycemia[ICD10: E11.65] Diagnosis: Hypothyroidism, unspecified[ICD10: E03.9] Diagnosis: Spinal stenosis, lumbar region without neurogenic claudication[ICD10: M48.061] Diagnosis: Vitamin B12 deficiency anemia due to intrinsic factor deficiency[ICD10: D51.0] Giselle Knox MD, [facility] CPT-4: 10627 01/12/2018 ([id number]) 00943 EST. PATIENT, LEVEL IV Diagnosis: Varicose veins of bilateral lower extremities with pain[ICD10: I83.813] Diagnosis: Low back pain[ICD10: M54.5] Diagnosis: Hypothyroidism, unspecified[ICD10: E03.9] Diagnosis: Type 2 diabetes mellitus with hyperglycemia[ICD10: E11.65] Giselle Knox MD, [facility] CPT-4: 85510 11/25/2017 88970 EST. PATIENT, LEVEL IV Diagnosis: Localized edema[ICD10: R60.0] Diagnosis: Vitamin B12 deficiency anemia due to intrinsic factor deficiency[ICD10: D51.0] Chasity Knox MD, [facility] CPT-4: 05972 09/15/2017 [id number] EST. PATIENT, LEVEL IV Diagnosis: Essential (primary) hypertension[ICD10: I10] Diagnosis: Type 2 diabetes mellitus with hyperglycemia[ICD10: E11.65] Diagnosis: Vitamin B12 deficiency anemia due to intrinsic factor deficiency[ICD10: D51.0] Chasity Knox MD, [facility] CPT-4: 45684 08/17/2017 97784 EST. PATIENT, LEVEL IV Diagnosis: Type 2 diabetes mellitus with hyperglycemia[ICD10: E11.65] Diagnosis: Essential (primary) hypertension[ICD10: I10] Diagnosis: Vitamin B12 deficiency anemia due to intrinsic factor deficiency[ICD10: D51.0] Chasity Knox MD, [facility] CPT-4: 88667 07/19/2017 ([id number]) 42997 EST. PATIENT, LEVEL IV Diagnosis: Essential (primary) hypertension[ICD10: I10] Diagnosis: Type 2 diabetes mellitus with hyperglycemia[ICD10: E11.65] Diagnosis: Hypothyroidism, unspecified[ICD10: E03.9] Diagnosis: Vitamin B12 deficiency anemia due to intrinsic factor deficiency[ICD10: D51.0] Diagnosis: Chronic kidney disease, stage 3 (moderate)[ICD10: N18.3] Giselle Knox MD, [facility] CPT-4: 99652 05/19/2017 ([id number]) 66689 EST. PATIENT, LEVEL IV Diagnosis: Essential (primary) hypertension[ICD10: I10] Diagnosis: Type 2 diabetes mellitus with hyperglycemia[ICD10: E11.65] Diagnosis: Hypothyroidism, unspecified[ICD10: E03.9] Giselle Knox MD, [facility] CPT-4: 96556 02/15/2017 ([id number]) 97704 EST. PATIENT, LEVEL IV Diagnosis: Type 2 diabetes mellitus with hyperglycemia[ICD10: E11.65] Diagnosis: Cough[ICD10: R05] Diagnosis: Acute upper respiratory infection, unspecified[ICD10: J06.9] Diagnosis: Hypothyroidism, unspecified[ICD10: E03.9] Diagnosis: Chronic kidney disease, stage 3 (moderate)[ICD10: N18.3] Giselle Knox MD, [facility] CPT-4: 08389 11/16/2016 [id number]) 79063 EST. PATIENT, LEVEL IV Diagnosis: Type 2 diabetes mellitus with hyperglycemia[ICD10: E11.65] Diagnosis: Hypothyroidism, unspecified[ICD10: E03.9] Diagnosis: Essential (primary) hypertension[ICD10: I10] Giselle Knox MD, [facility] CPT-4: 48838 08/19/2016 [id number]) 64391 EST. PATIENT, LEVEL III Diagnosis: Type 2 diabetes mellitus with hyperglycemia[ICD10: E11.65] Giselle Knox MD, [facility] CPT-4: 02960 07/15/2016 ([id number]) 27322 EST. PATIENT, LEVEL IV Diagnosis: Type 2 diabetes mellitus with hyperglycemia[ICD10: E11.65] Diagnosis: Atrophy of thyroid (acquired)[ICD10: E03.4] Diagnosis: Vitamin B12 deficiency anemia due to intrinsic factor deficiency[ICD10: D51.0] Diagnosis: Chronic kidney disease, stage 3 (moderate)[ICD10: N18.3] Diagnosis: Essential (primary) hypertension[ICD10: I10] Jennifer Knox MD, [facility] CPT-4: 88122 06/03/2016 ([id number]) 36667 EST. PATIENT, LEVEL III Diagnosis: Type 2 diabetes mellitus with hyperglycemia[ICD10: E11.65] Diagnosis: Essential (primary) hypertension[ICD10: I10] Diagnosis: Chronic kidney disease, stage 3 (moderate)[ICD10: N18.3] Diagnosis: VACCIN STREP PNEUMONIAE[ICD10: Z23] Giselle Knox MD, [facility] CPT-4: 82082 04/22/2016 42959 EST. PATIENT, LEVEL IV Diagnosis: Type 2 diabetes mellitus with hyperglycemia[ICD10: E11.65] Diagnosis: Essential (primary) hypertension[ICD10: I10] Chasity Knox MD, [facility] CPT-4: 35213 01/22/2016 ([id number]) 05027 EST. PATIENT, LEVEL III Diagnosis: Type 2 diabetes mellitus with hyperglycemia[ICD10: E11.65] Diagnosis: Essential (primary) hypertension[ICD10: I10] Giselle Knox MD, [facility] CPT-4: 90636 10/23/2015 27427 EST. PATIENT, LEVEL IV Diagnosis: Type 2 diabetes mellitus with hyperglycemia[ICD10: E11.65] Diagnosis: Vitamin B12 deficiency anemia due to intrinsic factor deficiency[ICD10: D51.0] Diagnosis: Essential (primary) hypertension[ICD10: I10] Chasity Knox MD, [facility] CPT-4: 74060 09/12/2015 ([id number]) 25540 EST. PATIENT, LEVEL IV Diagnosis: Essential (primary) hypertension[ICD10: I10] Diagnosis: Type 2 diabetes mellitus with hyperglycemia[ICD10: E11.65] Diagnosis: Hypothyroidism, unspecified[ICD10: E03.9] Giselle Knox MD, [facility] CPT-4: 29432 08/05/2015 ([id number]) 23533 EST. PATIENT, LEVEL III Diagnosis: ESSENTIAL HYPERTENSION[ICD9: 401.9] Diagnosis: DIABETES TYPE II[ICD9: 250.00] Jennifer Knox MD, [facility] CPT-4: 12504 04/03/2015 ([id number]) 55244 EST. PATIENT, LEVEL IV Diagnosis: ESSENTIAL HYPERTENSION[ICD9: 401.9] Diagnosis: DIABETES TYPE II[ICD9: 250.00] Diagnosis: Hypothyroidism[ICD9: 244.9] [facility] CPT-4: 97402 01/30/2015 ([id number]) OFFICE VISIT, NEW - LEVEL 4 Diagnosis: ESSENTIAL HYPERTENSION[ICD9: 401.9] Diagnosis: DIABETES TYPE II[ICD9: 250.00] Diagnosis: Impacted cerumen[ICD9: 380.4] Jennifer Knox MD, [facility] CPT-4: 31704 01/02/2015 Plan of Care Planned Activity Notes Codes Status Date Visit Plan: Burn left thigh - The patient was instructed in appropriate wound care. The patient was instructed to use the ointment as per RX. The patient is to call for any change in symptoms, increase in size of the lesion, increase in pain, worsening redness, warmth, discharge. 11/23/2018 Patient Education: Patient Medication Summary Completed [...] this time. 08/15/2018 Appointment: Giselle Mccoy WPtel: [address] [place], [place] [phone] (30 min) Complex 08/15/2018 Patient Education: Patient [...] of plan. 06/05/2018 Appointment[facility] [phone] [phone] (15 min) Moderate 06/05/2018 Patient Education: Patient [...] of IPRO. 05/22/2018 Appointment: [facility] [phone] [phone] (30 min) Complex 05/22/2018 Patient Education: Patient [...] control. 05/15/2018 Appointment: [facility] [phone] [phone] (15 min) Moderate 05/15/2018 Patient [...] PT 01/12/2018 Appointment: [facility] [phone] [phone] (30 min) Complex 01/12/2018 Patient Education: Patient Medication Summary Completed 01/12/2018 Care Plan: Referral Order SNOMED-CT : [id number] Pending 01/12/2018 Visit Plan: Varicose veins-rx for compression stockings provided and instructed on use Low back pain-recommend xray lumbar spine Hypothyroidism- check labs DM-check Hgb A1c 11/25/2017 Appointment: [facility] [phone] [phone] (30 min) Complex 11/25/2017 Patient Education: Patient Medication Summary Completed 11/25/2017 Care Plan: X-RAY EXAM L-S SPINE 2/3 VWS LOINC : 66659-6 Pending 11/25/2017 Visit Plan: Edema - Left [...] concerns. 09/15/2017 Appointment: Chasity Caldwell WPtel: [phone] [phone] (30 min) Complex 09/15/2017 Patient Education: [...] glucose control. 08/17/2017 Appointment: [facility] [phone] [facility] (15 min) Moderate 08/17/2017 Patient Education: Patient [...] at home. 07/19/2017 Appointment: [facility] Caldwell [facility] [phone] [facility] [place] (15 min) Moderate 07/19/2017 Patient Education: Patient Medication Summary Completed 07/19/2017 Appointment: [facility] [phone] [facility] [place] (15 min) Moderate 06/13/2017 Visit Plan: [...] medications. 05/19/2017 Appointment: [facility] [phone] [phone] [place] (30 min) Complex 05/19/2017 [...] of control. 02/15/2017 Appointment: Giselle Mccoy WPtel: [phone] (15 min) Moderate 02/15/2017 Patient [...] today 11/16/2016 Appointment: [facility] [phone] [phone] (15 min) Moderate 11/16/2016 Patient [...] control. 08/19/2016 Appointment: [facility] [phone] [phone] (15 min) Moderate 08/19/2016 Patient Education: Patient Medication Summary Completed 08/19/2016 Patient Education: Obesity Completed 08/19/2016 Care Plan: Tsh Cancelled 08/19/2016 Care Plan: %Hba1C LOINC : 78230-6 Cancelled 08/19/2016 Care Plan: Lipid Cancelled 08/19/2016 Care Plan: Free T4 patient coming back next week Cancelled 08/19/2016 Appointment: Injection 07/29/2016 Patient Education: Patient Medication Summary Completed 07/29/2016 Appointment: Giselle Mccoy WPtel: [phone] [phone] (30 min) Complex 07/22/2016 Visit Plan: Diabetes-having hypoglycemia in the mornings-insulin adjusted-patient and verbalized understanding of plan. Follow up in 1 month-call sooner if still having low blood sugars. Sinus congestion-start claritin 07/15/2016 Appointment: Giselle Mccoy WPtel: [phone] [phone] (30 min) Complex 07/15/2016 Patient Education: [...] control. 06/03/2016 Appointment: Jennifer Knox WPtel: [phone] [phone] (15 min) Moderate 06/03/2016 Patient Education: Patient [...] MONTH 04/22/2016 Appointment: Giselle Mccoy WPtel: [address] [place], [place] [phone] (15 min) Moderate 04/22/2016 Patient Education: Patient [...] needed. 01/02/2015 Appointment: Jennifer Knox [facility]el: [facility] [place] ([place] New Patient 01/02/2015 Patient Education: Patient Medication Summary Completed 01/02/2015 Patient Education: Hypertension Completed 01/02/2015 Referral: oTm [facility] Referral Appointment Requested Instructions Comment . [...]
--- NOTE | 2019-01-23 08:42 | Discharge Inst-Simple/Standard ---
Discharge Inst-Standard Patient Instructions/Follow Up Plan of Care/Instructions/FU: 2 weeks Travis Activity as Tolerated: Yes Discharge Diet: Regular Diet SAVANNAH MATHEWS DO Jan 23, 2019 08:42
--- OUTSIDE RECORDS SUMMARY | 2019-01-23 08:43 | XMS REPORT | CCD ---
Author Author [facility] Organization [facility] Address [address] [place] [address] Phone Care Team Providers Care Monotypist Name Role Phone PP Unavailable CCM Unavailable Summary Purpose Interface Exchange Insurance Providers Payer name Policy type / Coverage type Covered republican ID Effective Begin Date Effective End Date [facility] Commercial Insurance [id number] Unknown Family history Runs in the family [...] Fill Instructions Keflex 500 mg capsule RxNorm: 820218 1 Capsule(s) PO TID 11/23/2018 11/29/2018 Active silver sulfadiazine 1 % topical cream RxNorm: 458356 1 Application TOP BID 11/23/2018 No Stop Date Active carvedilol 12.5 mg tablet RxNorm: 979093 Tablet(s) TAKE ONE TABLET BY MOUTH TWICE A DAY 11/01/2018 10/26/2019 Active terazosin 2 mg capsule RxNorm: 185906 Capsule(s) TAKE ONE CAPSULE BY MOUTH DAILY 09/06/2018 08/31/2019 Active levothyroxine 100 mcg tablet RxNorm: 048600 TAKE ONE TABLET BY MOUTH DAILY 09/06/2018 02/02/2019 Active Contour Test Strips RxNorm: TEST BLOOD SUGAR TWO TIMES A DAY E11.65 08/30/2018 03/01/2020 Active Lantus Solostar U-100 Insulin 100 unit/mL (3 mL) subcutaneous pen RxNorm: 002545 INJECT 35 UNITS UNDER THE SKIN EVERY NIGHT AT BEDTIME 08/22/2018 09/24/2020 Active carvedilol 12.5 mg tablet RxNorm: 384777 TAKE ONE TABLET BY MOUTH TWICE A DAY 08/07/2018 10/31/2018 Inactive Humulin 70/30 U-100 Insulin 100 unit/mL subcutaneous suspension RxNorm: 632795 Unit(s) INJECT 18 UNITS UNDER THE SKIN EVERY MORNING 06/20/2018 09/11/2018 Inactive Humulin 70/30 U-100 Insulin 100 unit/mL subcutaneous suspension RxNorm: 908178 INJECT 18 UNITS UNDER THE SKIN EVERY MORNING 06/20/2018 06/19/2018 Inactive terazosin 2 mg capsule RxNorm: 592737 TAKE ONE CAPSULE BY MOUTH DAILY 06/09/2018 09/05/2018 Inactive Humulin 70/30 U-100 Insulin 100 unit/mL subcutaneous suspension RxNorm: 461491 18 Unit(s) SQ QAM 05/15/2018 06/19/2018 Inactive levothyroxine 100 mcg tablet RxNorm: 660266 1 Tablet(s) PO daily 05/11/2018 09/05/2018 Inactive carvedilol 12.5 mg tablet RxNorm: 238752 TAKE ONE TABLET BY MOUTH TWICE A DAY 05/05/2018 08/06/2018 Inactive losartan 100 mg tablet RxNorm: 676018 TAKE ONE TABLET BY MOUTH DAILY 03/24/2018 06/10/2020 Active terazosin 2 mg capsule RxNorm: 442343 TAKE ONE CAPSULE BY MOUTH DAILY 03/07/2018 06/08/2018 Inactive cyanocobalamin (vit B-12) 1,000 mcg/mL injection solution RxNorm: 968054 1 Milliliter(s) Inj 01/12/2018 01/12/2018 Inactive Lantus Solostar U-100 Insulin 100 unit/mL (3 mL) subcutaneous pen RxNorm: 681776 Unit(s) INJECT 24 UNITS UNDER THE SKIN EVERY NIGHT AT BEDTIME 01/12/2018 08/21/2018 Inactive Humulin 70/30 U-100 Insulin 100 unit/mL subcutaneous suspension RxNorm: 214627 INJECT 18 UNITS UNDER THE SKIN EVERY MORNING 11/14/2017 03/05/2018 Inactive carvedilol 12.5 mg tablet RxNorm: 735977 TAKE ONE TABLET BY MOUTH TWICE A DAY 11/07/2017 05/04/2018 Inactive cyanocobalamin (vit B-12) 1,000 mcg/mL injection solution RxNorm: 707749 Milliliter(s) Inj 09/15/2017 09/15/2017 Inactive terazosin 2 mg capsule RxNorm: 137088 Capsule(s) TAKE ONE CAPSULE BY MOUTH DAILY 09/07/2017 03/05/2018 Inactive Lantus Solostar 100 unit/mL (3 mL) subcutaneous insulin pen RxNorm: 803504 INJECT 35 UNITS UNDER THE SKIN EVERY NIGHT AT BEDTIME 08/29/2017 01/11/2018 Inactive One Touch Test strips RxNorm: 1 test Miscellaneous BID 08/22/2017 08/16/2018 Inactive Contour Test Strips RxNorm: TEST BLOOD SUGAR TWO TIMES A DAY E11.65 08/22/2017 08/29/2018 Inactive Tamiflu 75 mg capsule RxNorm: 605884 1 Capsule(s) PO daily 08/17/2017 08/16/2017 Inactive Tamiflu 75 mg capsule RxNorm: 723805 1 Capsule(s) PO daily 08/17/2017 08/26/2017 Inactive cyanocobalamin (vit B-12) 1,000 mcg/mL injection solution RxNorm: 480585 1 Milliliter(s) Inj 08/17/2017 08/17/2017 Inactive carvedilol 12.5 mg tablet RxNorm: 386503 TAKE ONE TABLET BY MOUTH TWICE A DAY 08/10/2017 11/06/2017 Inactive cyanocobalamin (vit B-12) 1,000 mcg/mL injection solution RxNorm: 939957 1 Milliliter(s) Inj 07/19/2017 07/19/2017 Inactive Humulin 70/30 100 unit/mL subcutaneous suspension RxNorm: 725165 14 Unit(s) SQ QAM 07/06/2017 05/14/2018 Inactive Lantus Solostar 100 unit/mL (3 mL) subcutaneous insulin pen RxNorm: 725725 26 Unit(s) SQ QHS 07/06/2017 08/28/2017 Inactive losartan 100 mg tablet RxNorm: 513853 TAKE ONE TABLET BY MOUTH DAILY 06/07/2017 03/23/2018 Inactive Lantus Solostar 100 unit/mL (3 mL) subcutaneous insulin pen RxNorm: 808821 28 Unit(s) SQ QHS 05/19/2017 07/05/2017 Inactive cyanocobalamin (vit B-12) 1,000 mcg/mL injection solution RxNorm: 634627 1 Milliliter(s) Inj 05/19/2017 05/19/2017 Inactive terazosin 2 mg capsule RxNorm: 943297 TAKE ONE CAPSULE BY MOUTH DAILY 05/16/2017 09/06/2017 Inactive cyanocobalamin (vit B-12) 1,000 mcg/mL injection solution RxNorm: 438237 1 Milliliter(s) Inj 04/06/2017 04/06/2017 Inactive cyanocobalamin (vit B-12) 1,000 mcg/mL injection solution RxNorm: 519319 Milliliter(s) Inj 01/04/2017 01/04/2017 Inactive Humulin 70/30 U-100 Insulin 100 unit/mL subcutaneous suspension RxNorm: 827444 18 Unit(s) SQ QAM 12/22/2016 06/04/2017 Inactive cyanocobalamin (vit B-12) 1,000 mcg/mL injection solution RxNorm: 624071 1 Milliliter(s) Inj 12/10/2016 12/10/2016 Inactive Zithromax Z-Jose 250 mg tablet RxNorm: 361830 1 Tablet(s) PO UD 11/16/2016 11/20/2016 Inactive terazosin 2 mg capsule RxNorm: 254729 TAKE ONE CAPSULE BY MOUTH DAILY 11/08/2016 05/06/2017 Inactive Lantus Solostar 100 unit/mL (3 mL) subcutaneous insulin pen RxNorm: 979968 INJECT 35 UNITS UNDER THE SKIN EVERY NIGHT AT BEDTIME 10/22/2016 07/18/2017 Inactive cyanocobalamin (vit B-12) 1,000 mcg/mL injection solution RxNorm: 192438 Milliliter(s) Inj 10/13/2016 10/13/2016 Inactive cyanocobalamin (vit B-12) 1,000 mcg/mL injection solution RxNorm: 427789 1 Milliliter(s) Inj 09/03/2016 09/03/2016 Inactive Contour Test Strips RxNorm: TEST BLOOD SUGAR TWO TIMES A DAY E11.65 08/19/2016 08/21/2017 Inactive carvedilol 12.5 mg tablet RxNorm: 122500 TAKE ONE TABLET BY MOUTH TWICE A DAY 08/05/2016 10/31/2018 Inactive carvedilol 12.5 mg tablet RxNorm: 19990924 TAKE ONE TABLET BY MOUTH TWICE A DAY 08/05/2016 01/01/2017 Inactive carvedilol 12.5 mg tablet RxNorm: 876269 1 Tablet(s) PO BID 08/04/2016 10/31/2018 Inactive cyanocobalamin (vit B-12) 1,000 mcg/mL injection solution RxNorm: 723773 Milliliter(s) Inj 07/29/2016 07/29/2016 Inactive Lantus Solostar 100 unit/mL (3 mL) subcutaneous insulin pen RxNorm: 200584 30 Unit(s) SQ QHS 07/15/2016 05/18/2017 Inactive Humulin 70/30 100 unit/mL subcutaneous suspension RxNorm: 957036 18 Unit(s) SQ QAM 07/15/2016 12/21/2016 Inactive losartan 100 mg tablet RxNorm: 308686 TAKE ONE TABLET BY MOUTH DAILY 07/08/2016 06/02/2017 Inactive terazosin 2 mg capsule RxNorm: 927485 TAKE ONE CAPSULE BY MOUTH DAILY 06/10/2016 11/06/2016 Inactive cyanocobalamin (vit B-12) 1,000 mcg/mL injection solution RxNorm: 660656 1 Milliliter(s) Inj 06/03/2016 06/03/2016 Inactive Humulin 70/30 100 unit/mL subcutaneous suspension RxNorm: 199427 Unit(s) INJECT 10 UNITS UNDER THE SKIN 06/01/2016 07/14/2016 Inactive Request already responded to by other means (e.g. phone or fax) Humulin 70/30 100 unit/mL subcutaneous suspension RxNorm: 698849 INJECT 10 UNITS UNDER THE SKIN BEFORE MEALS 06/01/2016 05/31/2016 Inactive Request already responded to by other means (e.g. phone or fax) Lantus Solostar 100 unit/mL (3 mL) subcutaneous insulin pen RxNorm: 698419 35 Unit(s) SQ QHS 05/26/2016 07/14/2016 Inactive Humulin 70/30 100 unit/mL subcutaneous suspension RxNorm: 443485 10 Unit(s) SQ QA 05/24/2016 10/02/2016 Inactive Humulin 70/30 100 unit/mL subcutaneous suspension RxNorm: 541596 21 Unit(s) SQ QA 05/24/2016 05/23/2016 Inactive Lantus Solostar 100 unit/mL (3 mL) subcutaneous insulin pen RxNorm: 922644 32 Unit(s) SQ Q 04/22/2016 05/25/2016 Inactive Humulin 70/30 100 unit/mL subcutaneous suspension RxNorm: 687085 21 Unit(s) SQ QA 04/22/2016 05/24/2016 Inactive with breakfast hydrochlorothiazide 25 mg tablet RxNorm: 588852 TAKE ONE TABLET BY MOUTH DAILY 02/04/2016 02/16/2016 Inactive terazosin 2 mg capsule RxNorm: 311110 Capsule(s) TAKE ONE CAPSULE BY MOUTH DAILY. 12/01/2015 05/28/2016 Inactive Humulin 70/30 100 unit/mL subcutaneous suspension RxNorm: 893271 INJECT 10 UNITS UNDER THE SKIN BEFORE MEALS 11/06/2015 03/16/2016 Inactive hydrochlorothiazide 25 mg tablet RxNorm: 367748 1 Tablet(s) PO daily 10/06/2015 02/02/2016 Inactive cyanocobalamin (vit B-12) 1,000 mcg/mL injection solution RxNorm: 572437 Milliliter(s) Inj 09/15/2015 09/15/2015 Inactive Humulin 70/30 100 unit/mL subcutaneous suspension RxNorm: 152598 INJECT 10 UNITS UNDER THE SKIN BEFORE MEALS 09/08/2015 10/10/2015 Inactive cyanocobalamin (vit B-12) 1,000 mcg/mL injection solution RxNorm: 990047 Milliliter(s) Inj 09/08/2015 09/08/2015 Inactive terazosin 2 mg capsule RxNorm: 356824 TAKE ONE CAPSULE BY MOUTH DAILY. DISCONTINUE 5 MG CAPSULES 09/01/2015 11/29/2015 Inactive cyanocobalamin (vit B-12) 1,000 mcg/mL injection solution RxNorm: 216182 Milliliter(s) Inj 09/01/2015 09/01/2015 Inactive cyanocobalamin (vit B-12) 1,000 mcg/mL injection solution RxNorm: 859545 Milliliter(s) Inj 08/25/2015 08/25/2015 Inactive levothyroxine 112 mcg tablet RxNorm: 750292 1 Tablet(s) PO daily 08/06/2015 02/14/2017 Inactive Lantus Solostar 100 unit/mL (3 mL) subcutaneous insulin pen RxNorm: 688777 35 Unit(s) SQ QHS 08/06/2015 04/21/2016 Inactive Humulin 70/30 100 unit/mL subcutaneous suspension RxNorm: 556978 20 Unit(s) SQ AC 08/05/2015 04/21/2016 Inactive with breakfast carvedilol 12.5 mg tablet RxNorm: 465607 1 Tablet(s) PO BID 08/05/2015 01/31/2016 Inactive Humulin 70/30 100 unit/mL subcutaneous suspension RxNorm: 567313 10 Unit(s) SQ AC 07/22/2015 08/04/2015 Inactive losartan 100 mg tablet RxNorm: 529514 TAKE ONE TABLET BY MOUTH DAILY 06/25/2015 06/18/2016 Inactive Lantus Solostar 100 unit/mL (3 mL) subcutaneous insulin pen RxNorm: 177557 30 Unit(s) SQ QHS 06/18/2015 08/05/2015 Inactive terazosin 2 mg capsule RxNorm: 153594 1 Capsule(s) PO daily 04/14/2015 08/11/2015 Inactive DC the 5mg order terazosin 2 mg capsule RxNorm: 899737 1 Capsule(s) PO daily 04/14/2015 04/13/2015 Inactive Synthroid 25 mcg tablet RxNorm: 320453 1 Tablet(s) PO daily 04/11/2015 02/14/2017 Inactive Synthroid 25 mcg tablet RxNorm: 338780 1 Tablet(s) PO daily 04/11/2015 04/10/2015 Inactive Lantus Solostar 100 unit/mL (3 mL) subcutaneous insulin pen RxNorm: 399347 30 Unit(s) SQ QHS 04/04/2015 06/17/2015 Inactive terazosin 5 mg tablet RxNorm: 281024 1 Tablet(s) PO daily 04/03/2015 04/13/2015 Inactive Lantus Solostar 100 unit/mL (3 mL) subcutaneous insulin pen RxNorm: 770937 25 Unit(s) SQ QHS 01/08/2015 04/03/2015 Inactive carvedilol 25 mg tablet RxNorm: 386854 1 Tablet(s) PO BID 01/02/2015 01/31/2015 Inactive terazosin 5 mg tablet RxNorm: 025371 1 Tablet(s) PO daily 01/02/2015 01/01/2015 Inactive levothyroxine 125 mcg tablet RxNorm: 434128 1 Tablet(s) PO daily 01/02/2015 01/31/2015 Inactive terazosin 5 mg tablet RxNorm: 727493 1/2 Tablet(s) PO daily 01/02/2015 01/31/2015 Inactive losartan 100 mg tablet RxNorm: 185601 1 Tablet(s) PO daily 12/24/2014 04/22/2015 Inactive losartan 100 mg tablet RxNorm: 749475 1 Tablet(s) PO daily 12/24/2014 12/23/2014 Inactive Contour Test Strips RxNorm: Miscellaneous test blood sugars BID 12/06/2014 12/05/2014 Inactive dx 250.00 Contour Test Strips RxNorm: Miscellaneous test blood sugars BID or UD 12/06/2014 06/23/2015 Inactive dx 250.00 [SAVINGS FOR NON-COVERED DRUGS -- BIN:[id number], PCN: [id number], Group: [id number], ID# [id number], Questions: . THIS IS NOT INSURANCE.] folic acid 1 mg tablet RxNorm: 236041 1 Tablet(s) PO QHS No Start Date Active Microlet Lancet RxNorm: Miscellaneous Test BID or Ud No Start Date Active 250.0 aspirin 81 mg tablet,delayed release RxNorm: 887687 1 Tablet(s) PO daily No Start Date Active Stool Softener 100 mg capsule RxNorm: 0158982 1 Capsule(s) PO every other day No Start Date Active folic acid oral RxNorm: 4511 oral No Start Date 05/19/2017 Inactive cyanocobalamin (vit B-12) 100 mcg tablet RxNorm: 284012 1 Tablet(s) PO daily No Start Date 02/14/2017 Inactive hydrochlorothiazide 25 mg tablet RxNorm: 438631 1 Tablet(s) PO daily No Start Date 10/05/2015 Inactive Stool Softener 100 mg capsule RxNorm: 1267225 1 Capsule(s) PO daily No Start Date 05/18/2017 Inactive Humulin 70/30 100 unit/mL subcutaneous suspension RxNorm: 718966 20 Unit(s) SQ QAM No Start Date 07/21/2015 Inactive levothyroxine 100 mcg tablet RxNorm: 920199 1 Tablet(s) PO daily No Start Date 05/10/2018 Inactive Lantus Solostar 100 unit/mL (3 mL) subcutaneous insulin pen RxNorm: 692660 20 Unit(s) SQ QHS No Start Date 01/07/2015 Inactive ferrous sulfate 325 mg (65 mg iron) tablet RxNorm: 993290 1 Tablet(s) PO daily No Start Date 05/18/2017 Inactive Medication Administered Medication Codes Instructions Start Date Status cyanocobalamin (vit B-12) 1,000 mcg/mL injection solution RxNorm: 064939 1Milliliter 01/12/2018 No longer Active cyanocobalamin (vit B-12) 1,000 mcg/mL injection solution RxNorm: 496689 Milliliter 09/15/2017 No longer Active cyanocobalamin (vit B-12) 1,000 mcg/mL injection solution RxNorm: 046168 1Milliliter 08/17/2017 No longer Active cyanocobalamin (vit B-12) 1,000 mcg/mL injection solution RxNorm: 009847 1Milliliter 07/19/2017 No longer Active cyanocobalamin (vit B-12) 1,000 mcg/mL injection solution RxNorm: 040434 1Milliliter 05/19/2017 No longer Active cyanocobalamin (vit B-12) 1,000 mcg/mL injection solution RxNorm: 856231 1Milliliter 04/06/2017 No longer Active cyanocobalamin (vit B-12) 1,000 mcg/mL injection solution RxNorm: 412090 Milliliter 01/04/2017 No longer Active cyanocobalamin (vit B-12) 1,000 mcg/mL injection solution RxNorm: 328631 1Milliliter 12/10/2016 No longer Active cyanocobalamin (vit B-12) 1,000 mcg/mL injection solution RxNorm: 716085 Milliliter 10/13/2016 No longer Active cyanocobalamin (vit B-12) 1,000 mcg/mL injection solution RxNorm: 396969 1Milliliter 09/03/2016 No longer Active cyanocobalamin (vit B-12) 1,000 mcg/mL injection solution RxNorm: 697261 Milliliter 07/29/2016 No longer Active cyanocobalamin (vit B-12) 1,000 mcg/mL injection solution RxNorm: 197436 1Milliliter 06/03/2016 No longer Active cyanocobalamin (vit B-12) 1,000 mcg/mL injection solution RxNorm: 818462 Milliliter 09/15/2015 No longer Active cyanocobalamin (vit B-12) 1,000 mcg/mL injection solution RxNorm: 439204 Milliliter 09/08/2015 No longer Active cyanocobalamin (vit B-12) 1,000 mcg/mL injection solution RxNorm: 695920 Milliliter 09/01/2015 No longer Active cyanocobalamin (vit B-12) 1,000 mcg/mL injection solution RxNorm: 664390 Milliliter 08/25/2015 No longer Active Immunizations Vaccine [...] 29.3 pg 08/15/2018 Cbc With Differential Ord2 Pine% 10.9 % 08/15/2018 Cbc With Differential Ord2 [...] 2.66 K/ul 08/15/2018 Cbc With Differential Ord2 Pine ABS# 0.7 K/ul 08/15/2018 Cbc With Differential Ord2 Eos ABS# 0.2 K/ul 08/15/2018 Cbc With Differential Ord2 Baso ABS# 0.0 K/ul 08/15/2018 Comp Metabolic Xwq639 NA 139 mEq/L 08/15/2018 Comp Metabolic Hoo446 K 4.0 mEq/L 08/15/2018 Comp Metabolic Ogf522 CL 107 mEq/L 08/15/2018 Comp Metabolic Nzc360 CO2 25.0 mEq/L 08/15/2018 Comp Metabolic Pqf031 ANION GAP 11 08/15/2018 Comp Metabolic Lel220 GLUCOSE 142 mg/dL 08/15/2018 Comp Metabolic Fyo615 Creat 0.9 mg/dL 08/15/2018 Comp Metabolic Yor728 eGFR 64 ml/min/1.73m2 08/15/2018 Comp Metabolic Lqy194 BUN 22 mg/dL 08/15/2018 Comp Metabolic Rng635 B/C Ratio 24.4 Ratio 08/15/2018 Comp Metabolic Vqv921 CALCIUM 9.3 mg/dL 08/15/2018 Comp Metabolic Ywg132 ALK PHOS 83 U/L 08/15/2018 Comp Metabolic Ryr928 AST(SGOT) 35 U/L 08/15/2018 Comp Metabolic Xbh254 ALT(SGPT) 19 U/L 08/15/2018 Comp Metabolic Cmw849 BILI T 0.6 mg/dL 08/15/2018 Comp Metabolic Amt251 ALBUMIN 3.7 g/dL 08/15/2018 Comp Metabolic Ppm540 TPRO 6.3 g/dL 08/15/2018 Comp Metabolic Wbs283 GLOB 2.6 g/dL 08/15/2018 Comp Metabolic Htf400 A/G Ratio 1.5 Ratio 08/15/2018 Comp Metabolic Aep676 Osmo 283 mOsmo 08/15/2018 Tsh Ord6 TSH (3rd IS) 2.43 uIU/mL 08/15/2018 %Hba1C Pat221 % HbA1c 63198- 6 7.4 % 08/15/2018 %Hba1C Jop481 Gluc Ave 166 mg/dL 08/15/2018 Free T4 Gnf935 FREE T4 1.21 ng/dL 05/15/2018 Tsh Ord6 TSH (3rd IS) 0.97 uIU/mL 05/15/2018 Comp Metabolic Sur726 NA 142 mEq/L 05/15/2018 Comp Metabolic Mrb024 K 4.0 mEq/L 05/15/2018 Comp Metabolic Ggg587 CL 107 mEq/L 05/15/2018 Comp Metabolic Lzl795 CO2 28.0 mEq/L 05/15/2018 Comp Metabolic Mjn699 ANION GAP 11 05/15/2018 Comp Metabolic Tnx169 GLUCOSE 211 mg/dL 05/15/2018 Comp Metabolic Ebd050 Creat 0.9 mg/dL 05/15/2018 Comp Metabolic Sjj341 eGFR 61 ml/min/1.73m2 05/15/2018 Comp Metabolic Iku770 BUN 21 mg/dL 05/15/2018 Comp Metabolic Met120 B/C Ratio 22.6 Ratio 05/15/2018 Comp Metabolic Joo512 CALCIUM 9.1 mg/dL 05/15/2018 Comp Metabolic Zfu380 ALK PHOS 85 U/L 05/15/2018 Comp Metabolic Tvv213 AST(SGOT) 36 U/L 05/15/2018 Comp Metabolic Kze444 ALT(SGPT) 19 U/L 05/15/2018 Comp Metabolic Exi216 BILI T 0.6 mg/dL 05/15/2018 Comp Metabolic Ufp325 ALBUMIN 3.8 g/dL 05/15/2018 Comp Metabolic Lro103 TPRO 6.2 g/dL 05/15/2018 Comp Metabolic Kgs358 GLOB 2.4 g/dL 05/15/2018 Comp Metabolic Yde441 A/G Ratio 1.6 Ratio 05/15/2018 Comp Metabolic Ndw812 Osmo 292 mOsmo 05/15/2018 %Hba1C Voh184 % HbA1c 02377- 6 7.8 % 05/15/2018 %Hba1C Zpe623 Gluc Ave 177 mg/dL 05/15/2018 Comp Metabolic Evf435 NA 139 mEq/L 11/28/2017 Comp Metabolic Uoa787 K 4.1 mEq/L 11/28/2017 Comp Metabolic Rpz322 CL 105 mEq/L 11/28/2017 Comp Metabolic Rqs088 CO2 26.0 mEq/L 11/28/2017 Comp Metabolic Elb071 ANION GAP 12 11/28/2017 Comp Metabolic Ygu652 GLUCOSE 132 mg/dL 11/28/2017 Comp Metabolic Gyi247 Creat 0.9 mg/dL 11/28/2017 Comp Metabolic Jzy878 eGFR 66 ml/min/1.73m2 11/28/2017 Comp Metabolic Uwi185 BUN 17 mg/dL 11/28/2017 Comp Metabolic Chv565 B/C Ratio 19.5 Ratio 11/28/2017 Comp Metabolic Elb367 CALCIUM 9.1 mg/dL 11/28/2017 Comp Metabolic Rha542 ALK PHOS 78 U/L 11/28/2017 Comp Metabolic Naf112 AST(SGOT) 35 U/L 11/28/2017 Comp Metabolic Cbl413 ALT(SGPT) 17 U/L 11/28/2017 Comp Metabolic Hig497 BILI T 0.6 mg/dL 11/28/2017 Comp Metabolic Uut100 ALBUMIN 3.9 g/dL 11/28/2017 Comp Metabolic Uiw761 TPRO 6.4 g/dL 11/28/2017 Comp Metabolic Act828 GLOB 2.5 g/dL 11/28/2017 Comp Metabolic Pxx882 A/G Ratio 1.6 Ratio 11/28/2017 Comp Metabolic Ivh727 Osmo 281 mOsmo 11/28/2017 Tsh Ord6 TSH (3rd IS) 1.14 uIU/mL 11/28/2017 Free T4 Fyw695 FREE T4 1.05 ng/dL 11/28/2017 %Hba1C Rva600 % HbA1c 82960- 6 7.7 % 11/25/2017 %Hba1C Kmm893 Gluc Ave 174 mg/dL 11/25/2017 Cbc With [...] 29.8 pg 11/25/2017 Cbc With Differential Ord2 Pine% 10.2 % 11/25/2017 Cbc With Differential Ord2 [...] 2.56 K/ul 11/25/2017 Cbc With Differential Ord2 [place] ABS# 0.7 K/ul 11/25/2017 Cbc With Differential [...] 30.3 pg 05/19/2017 Cbc With Differential Ord2 Pine% 6.8 % 05/19/2017 Cbc With Differential Ord2 [...] 1.64 K/ul 05/19/2017 Cbc With Differential Ord2 Pine ABS# 0.6 K/ul 05/19/2017 Cbc With Differential Ord2 Eos ABS# 0.2 K/ul 05/19/2017 Cbc With Differential Ord2 Baso ABS# 0.0 K/ul 05/19/2017 B12 Iyf441 B12 >1500.00 pg/ml 05/19/2017 Free T4 Dxe637 FREE T4 1.10 ng/dL 05/19/2017 %Hba1C Zgk561 % HbA1c 12110- 6 6.8 % 05/19/2017 %Hba1C Rls082 Gluc Ave 148 mg/dL 05/19/2017 Tsh Ord6 hTSH II 1.73 uIU/mL 05/19/2017 Comp Metabolic Kmg784 NA 140 mEq/L 05/19/2017 Comp Metabolic Jke558 K 3.8 mEq/L 05/19/2017 Comp Metabolic Dkd723 CL 108 mEq/L 05/19/2017 Comp Metabolic Vuq320 CO2 21.0 mEq/L 05/19/2017 Comp Metabolic Nkv589 ANION GAP 15 05/19/2017 Comp Metabolic Jpk798 GLUCOSE 207 mg/dL 05/19/2017 Comp Metabolic Uzp527 Creat 1.0 mg/dL 05/19/2017 Comp Metabolic Oeg296 eGFR 55 ml/min/1.73m2 05/19/2017 Comp Metabolic Twr851 BUN 21 mg/dL 05/19/2017 Comp Metabolic Ymp825 B/C Ratio 20.4 Ratio 05/19/2017 Comp Metabolic Shb497 CALCIUM 9.1 mg/dL 05/19/2017 Comp Metabolic Taj749 ALK PHOS 74 U/L 05/19/2017 Comp Metabolic Stf504 AST(SGOT) 32 U/L 05/19/2017 Comp Metabolic Nys774 ALT(SGPT) 15 U/L 05/19/2017 Comp Metabolic Csa975 BILI T 0.6 mg/dL 05/19/2017 Comp Metabolic Aaf990 ALBUMIN 3.9 g/dL 05/19/2017 Comp Metabolic Mvz510 TPRO 6.2 g/dL 05/19/2017 Comp Metabolic Nci152 GLOB 2.3 g/dL 05/19/2017 Comp Metabolic Ede130 A/G Ratio 1.6 Ratio 05/19/2017 Comp Metabolic Xuz582 Osmo 288 mOsmo 05/19/2017 Cbc With Differential [...] 29.3 pg 12/10/2016 Cbc With Differential Ord2 Pine% 7.1 % 12/10/2016 Cbc With Differential Ord2 [...] 2.50 K/ul 12/10/2016 Cbc With Differential Ord2 [place] ABS# 0.5 K/ul 12/10/2016 Cbc With Differential Ord2 Eos ABS# 0.1 K/ul 12/10/2016 Cbc With Differential Ord2 Baso ABS# 0.0 K/ul 12/10/2016 B12 Kkf145 B12 222.00 pg/ml 12/10/2016 %Hba1C Xlm491 % HbA1c 45116- 6 7.5 % 11/16/2016 %Hba1C Ond148 Gluc Ave 169 mg/dL 11/16/2016 Free T4 Hjr593 FREE T4 1.03 ng/dL 11/16/2016 Comp Metabolic Fxq696 NA 138 mEq/L 11/16/2016 Comp Metabolic Kkr111 K 3.8 mEq/L 11/16/2016 Comp Metabolic Ivi163 CL 103 mEq/L 11/16/2016 Comp Metabolic Wak856 CO2 26.0 mEq/L 11/16/2016 Comp Metabolic Tqk942 ANION GAP 13 11/16/2016 Comp Metabolic Ryf064 GLUCOSE 235 mg/dL 11/16/2016 Comp Metabolic Kzg541 Creat 0.9 mg/dL 11/16/2016 Comp Metabolic Uvg675 eGFR 62 ml/min/1.73m2 11/16/2016 Comp Metabolic Rdt967 BUN 20 mg/dL 11/16/2016 Comp Metabolic Fom171 B/C Ratio 21.7 Ratio 11/16/2016 Comp Metabolic Qng743 CALCIUM 8.9 mg/dL 11/16/2016 Comp Metabolic Usd129 ALK PHOS 75 U/L 11/16/2016 Comp Metabolic Nth976 AST(SGOT) 30 U/L 11/16/2016 Comp Metabolic Mas929 ALT(SGPT) 13 U/L 11/16/2016 Comp Metabolic Bzm140 BILI T 0.6 mg/dL 11/16/2016 Comp Metabolic Csw012 ALBUMIN 3.8 g/dL 11/16/2016 Comp Metabolic Zul257 TPRO 6.8 g/dL 11/16/2016 Comp Metabolic Niq417 GLOB 3.1 g/dL 11/16/2016 Comp Metabolic Xec398 A/G Ratio 1.2 Ratio 11/16/2016 Comp Metabolic Lbd614 Osmo 286 mOsmo 11/16/2016 Tsh Ord6 hTSH II 2.50 uIU/mL 11/16/2016 Tsh Ord6 hTSH II 3.18 uIU/mL 05/21/2016 Lipid Ord30 CHOL 212 mg/dL 05/21/2016 Lipid Ord30 HDL 43.0 mg/dl 05/21/2016 Lipid Ord30 TRIG 164 mg/dL 05/21/2016 Lipid Ord30 LDL 136 mg/dL 05/21/2016 Lipid Ord30 C/HDL 4.9 Ratio 05/21/2016 B12 Gui378 B12 159.00 pg/ml 05/21/2016 %Hba1C Djh318 % HbA1c 98498- 6 7.5 % 05/21/2016 %Hba1C Lpw575 Gluc Ave 169 mg/dL 05/21/2016 Folate Ord36 Folate >23.80 ng/mL 05/21/2016 Free T4 Eqa767 FREE T4 1.03 ng/dL 05/21/2016 CHEM 14 20280127 AST 33 U/L 03/15/2016 CHEM 14 20280127 ALT 13 U/L 03/15/2016 CHEM 14 20280127 BUN 18 mg/dL 03/15/2016 CHEM 14 3469699 ALBUMIN 3.9 g/dL 03/15/2016 CHEM 14 5134701 CHLORIDE 105 mmol/L 03/15/2016 CHEM 14 2624518 Bili Total 0.4 mg/dL 03/15/2016 CHEM 14 4352521 ALK PHOS 60 U/L 03/15/2016 CHEM 14 3848052 SODIUM 138 mmol/L 03/15/2016 CHEM 14 8445106 CREATININE 0.99 mg/dL 03/15/2016 CHEM 14 4636430 CALCIUM 9.4 mg/dL 03/15/2016 CHEM 14 5464847 POTASSIUM 3.8 mmol/L 03/15/2016 CHEM 14 7522230 TOTAL PROTEIN 6.7 g/dL 03/15/2016 CHEM 14 9742845 GLUCOSE 109 mg/dL 03/15/2016 CHEM 14 4048959 Bicarbonate 27 mmol/L 03/15/2016 CHEM 14 8647652 AGAP 6 mmol/L 03/15/2016 GFR CALC [id number] GFR Non Afr Amr 54 mL/min 03/15/2016 GFR CALC 9096435 GFR Afr Amr >60 mL/min 03/15/2016 B12 Nhb311 B12 46.00 pg/ml 08/07/2015 Iron Ord72 Iron [...] Ord2 RDW 16.6 % 08/05/2015 Free T4 Ekm098 FREE T4 1.33 ng/dL 08/05/2015 Comp Metabolic Dtj817 NA 137 mEq/L 08/05/2015 Comp Metabolic Gkz670 K 4.5 mEq/L 08/05/2015 Comp Metabolic Qek349 CL 104 mEq/L 08/05/2015 Comp Metabolic Jux351 CO2 26.0 mEq/L 08/05/2015 Comp Metabolic Ynd206 ANION GAP 12 08/05/2015 Comp Metabolic Bhx666 GLUCOSE 146 mg/dL 08/05/2015 Comp Metabolic Moa089 Creat 1.0 mg/dL 08/05/2015 Comp Metabolic Zsi201 eGFR 56 ml/min/1.73m2 08/05/2015 Comp Metabolic Umx102 BUN 23 mg/dL 08/05/2015 Comp Metabolic Znm007 B/C Ratio 22.8 Ratio 08/05/2015 Comp Metabolic Jjm034 CALCIUM 9.3 mg/dL 08/05/2015 Comp Metabolic Tri025 ALK PHOS 71 U/L 08/05/2015 Comp Metabolic Byk580 AST(SGOT) 33 U/L 08/05/2015 Comp Metabolic Dgd438 ALT(SGPT) 15 U/L 08/05/2015 Comp Metabolic Xwi952 BILI T 0.6 mg/dL 08/05/2015 Comp Metabolic Yzp596 ALBUMIN 3.9 g/dL 08/05/2015 Comp Metabolic Koy611 TPRO 6.5 g/dL 08/05/2015 Comp Metabolic Qqp549 GLOB 2.6 g/dL 08/05/2015 Comp Metabolic Hsz300 A/G Ratio 1.5 Ratio 08/05/2015 Comp Metabolic Eng554 Osmo 280 mOsmo 08/05/2015 Tsh Ord6 hTSH II 0.36 uIU/mL 08/05/2015 %Hba1C Szs409 % HbA1c 72864-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
--- OUTSIDE RECORDS SUMMARY | 2019-01-23 08:48 | XMS REPORT | CCD ---
Author Author [facility] Organization [facility] Address [address] [place] [address] Phone Care Team Providers Care Manager Of Learning Name Role Phone PP Unavailable CCM Unavailable Summary Purpose Interface Exchange Insurance Providers Payer name Policy type / Coverage type Covered constitution party ID Effective Begin Date Effective End Date [facility] Commercial Insurance [id number] Unknown Family history Runs in the family [...] Fill Instructions carvedilol 12.5 mg tablet RxNorm: 769631 Tablet(s) TAKE ONE TABLET BY MOUTH TWICE A DAY 11/01/2018 10/26/2019 Active terazosin 2 mg capsule RxNorm: 815326 Capsule(s) TAKE ONE CAPSULE BY MOUTH DAILY 09/06/2018 08/31/2019 Active levothyroxine 100 mcg tablet RxNorm: 031841 TAKE ONE TABLET BY MOUTH DAILY 09/06/2018 02/02/2019 Active Contour Test Strips RxNorm: TEST BLOOD SUGAR TWO TIMES A DAY E11.65 08/30/2018 03/01/2020 Active Lantus Solostar U-100 Insulin 100 unit/mL (3 mL) subcutaneous pen RxNorm: 629847 INJECT 35 UNITS UNDER THE SKIN EVERY NIGHT AT BEDTIME 08/22/2018 09/24/2020 Active carvedilol 12.5 mg tablet RxNorm: 212553 TAKE ONE TABLET BY MOUTH TWICE A DAY 08/07/2018 10/31/2018 Inactive Humulin 70/30 U-100 Insulin 100 unit/mL subcutaneous suspension RxNorm: 593968 Unit(s) INJECT 18 UNITS UNDER THE SKIN EVERY MORNING 06/20/2018 09/11/2018 Inactive Humulin 70/30 U-100 Insulin 100 unit/mL subcutaneous suspension RxNorm: 356246 INJECT 18 UNITS UNDER THE SKIN EVERY MORNING 06/20/2018 06/19/2018 Inactive terazosin 2 mg capsule RxNorm: 933435 TAKE ONE CAPSULE BY MOUTH DAILY 06/09/2018 09/05/2018 Inactive Humulin 70/30 U-100 Insulin 100 unit/mL subcutaneous suspension RxNorm: 435379 18 Unit(s) SQ QAM 05/15/2018 06/19/2018 Inactive levothyroxine 100 mcg tablet RxNorm: 621341 1 Tablet(s) PO daily 05/11/2018 09/05/2018 Inactive carvedilol 12.5 mg tablet RxNorm: 538503 TAKE ONE TABLET BY MOUTH TWICE A DAY 05/05/2018 08/06/2018 Inactive losartan 100 mg tablet RxNorm: 502899 TAKE ONE TABLET BY MOUTH DAILY 03/24/2018 06/10/2020 Active terazosin 2 mg capsule RxNorm: 877681 TAKE ONE CAPSULE BY MOUTH DAILY 03/07/2018 06/08/2018 Inactive cyanocobalamin (vit B-12) 1,000 mcg/mL injection solution RxNorm: 880183 1 Milliliter(s) Inj 01/12/2018 01/12/2018 Inactive Lantus Solostar U-100 Insulin 100 unit/mL (3 mL) subcutaneous pen RxNorm: 318094 Unit(s) INJECT 24 UNITS UNDER THE SKIN EVERY NIGHT AT BEDTIME 01/12/2018 08/21/2018 Inactive Humulin 70/30 U-100 Insulin 100 unit/mL subcutaneous suspension RxNorm: 082438 INJECT 18 UNITS UNDER THE SKIN EVERY MORNING 11/14/2017 03/05/2018 Inactive carvedilol 12.5 mg tablet RxNorm: 701019 TAKE ONE TABLET BY MOUTH TWICE A DAY 11/07/2017 05/04/2018 Inactive cyanocobalamin (vit B-12) 1,000 mcg/mL injection solution RxNorm: 361023 Milliliter(s) Inj 09/15/2017 09/15/2017 Inactive terazosin 2 mg capsule RxNorm: 916771 Capsule(s) TAKE ONE CAPSULE BY MOUTH DAILY 09/07/2017 03/05/2018 Inactive Lantus Solostar 100 unit/mL (3 mL) subcutaneous insulin pen RxNorm: 194980 INJECT 35 UNITS UNDER THE SKIN EVERY NIGHT AT BEDTIME 08/29/2017 01/11/2018 Inactive One Touch Test strips RxNorm: 1 test Miscellaneous BID 08/22/2017 08/16/2018 Inactive Contour Test Strips RxNorm: TEST BLOOD SUGAR TWO TIMES A DAY E11.65 08/22/2017 08/29/2018 Inactive Tamiflu 75 mg capsule RxNorm: 097196 1 Capsule(s) PO daily 08/17/2017 08/16/2017 Inactive Tamiflu 75 mg capsule RxNorm: 376676 1 Capsule(s) PO daily 08/17/2017 08/26/2017 Inactive cyanocobalamin (vit B-12) 1,000 mcg/mL injection solution RxNorm: 536502 1 Milliliter(s) Inj 08/17/2017 08/17/2017 Inactive carvedilol 12.5 mg tablet RxNorm: 428380 TAKE ONE TABLET BY MOUTH TWICE A DAY 08/10/2017 11/06/2017 Inactive cyanocobalamin (vit B-12) 1,000 mcg/mL injection solution RxNorm: 274754 1 Milliliter(s) Inj 07/19/2017 07/19/2017 Inactive Humulin 70/30 100 unit/mL subcutaneous suspension RxNorm: 198184 14 Unit(s) SQ QAM 07/06/2017 05/14/2018 Inactive Lantus Solostar 100 unit/mL (3 mL) subcutaneous insulin pen RxNorm: 555130 26 Unit(s) SQ QHS 07/06/2017 08/28/2017 Inactive losartan 100 mg tablet RxNorm: 168654 TAKE ONE TABLET BY MOUTH DAILY 06/07/2017 03/23/2018 Inactive Lantus Solostar 100 unit/mL (3 mL) subcutaneous insulin pen RxNorm: 128926 28 Unit(s) SQ QHS 05/19/2017 07/05/2017 Inactive cyanocobalamin (vit B-12) 1,000 mcg/mL injection solution RxNorm: 349560 1 Milliliter(s) Inj 05/19/2017 05/19/2017 Inactive terazosin 2 mg capsule RxNorm: 189967 TAKE ONE CAPSULE BY MOUTH DAILY 05/16/2017 09/06/2017 Inactive cyanocobalamin (vit B-12) 1,000 mcg/mL injection solution RxNorm: 303623 1 Milliliter(s) Inj 04/06/2017 04/06/2017 Inactive cyanocobalamin (vit B-12) 1,000 mcg/mL injection solution RxNorm: 716195 Milliliter(s) Inj 01/04/2017 01/04/2017 Inactive Humulin 70/30 U-100 Insulin 100 unit/mL subcutaneous suspension RxNorm: 347758 18 Unit(s) SQ QAM 12/22/2016 06/04/2017 Inactive cyanocobalamin (vit B-12) 1,000 mcg/mL injection solution RxNorm: 372157 1 Milliliter(s) Inj 12/10/2016 12/10/2016 Inactive Zithromax Z-Jose 250 mg tablet RxNorm: 451057 1 Tablet(s) PO UD 11/16/2016 11/20/2016 Inactive terazosin 2 mg capsule RxNorm: 708103 TAKE ONE CAPSULE BY MOUTH DAILY 11/08/2016 05/06/2017 Inactive Lantus Solostar 100 unit/mL (3 mL) subcutaneous insulin pen RxNorm: 311160 INJECT 35 UNITS UNDER THE SKIN EVERY NIGHT AT BEDTIME 10/22/2016 07/18/2017 Inactive cyanocobalamin (vit B-12) 1,000 mcg/mL injection solution RxNorm: 264855 Milliliter(s) Inj 10/13/2016 10/13/2016 Inactive cyanocobalamin (vit B-12) 1,000 mcg/mL injection solution RxNorm: 267999 1 Milliliter(s) Inj 09/03/2016 09/03/2016 Inactive Contour Test Strips RxNorm: TEST BLOOD SUGAR TWO TIMES A DAY E11.65 08/19/2016 08/21/2017 Inactive carvedilol 12.5 mg tablet RxNorm: 601590 TAKE ONE TABLET BY MOUTH TWICE A DAY 08/05/2016 01/01/2017 Inactive carvedilol 12.5 mg tablet RxNorm: 100546 TAKE ONE TABLET BY MOUTH TWICE A DAY 08/05/2016 01/01/2017 Inactive carvedilol 12.5 mg tablet RxNorm: 322719 1 Tablet(s) PO BID 08/04/2016 01/30/2017 Inactive cyanocobalamin (vit B-12) 1,000 mcg/mL injection solution RxNorm: 485722 Milliliter(s) Inj 07/29/2016 07/29/2016 Inactive Lantus Solostar 100 unit/mL (3 mL) subcutaneous insulin pen RxNorm: 044490 30 Unit(s) SQ QHS 07/15/2016 05/18/2017 Inactive Humulin 70/30 100 unit/mL subcutaneous suspension RxNorm: 949813 18 Unit(s) SQ QAM 07/15/2016 12/21/2016 Inactive losartan 100 mg tablet RxNorm: 456933 TAKE ONE TABLET BY MOUTH DAILY 07/08/2016 06/02/2017 Inactive terazosin 2 mg capsule RxNorm: 187306 TAKE ONE CAPSULE BY MOUTH DAILY 06/10/2016 11/06/2016 Inactive cyanocobalamin (vit B-12) 1,000 mcg/mL injection solution RxNorm: 219897 1 Milliliter(s) Inj 06/03/2016 06/03/2016 Inactive Humulin 70/30 100 unit/mL subcutaneous suspension RxNorm: 353172 Unit(s) INJECT 10 UNITS UNDER THE SKIN 06/01/2016 07/14/2016 Inactive Request already responded to by other means (e.g. phone or fax) Humulin 70/30 100 unit/mL subcutaneous suspension RxNorm: 031277 INJECT 10 UNITS UNDER THE SKIN BEFORE MEALS 06/01/2016 05/31/2016 Inactive Request already responded to by other means (e.g. phone or fax) Lantus Solostar 100 unit/mL (3 mL) subcutaneous insulin pen RxNorm: 861617 35 Unit(s) SQ QHS 05/26/2016 07/14/2016 Inactive Humulin 70/30 100 unit/mL subcutaneous suspension RxNorm: 415584 10 Unit(s) SQ QAM 05/24/2016 10/02/2016 Inactive Humulin 70/30 100 unit/mL subcutaneous suspension RxNorm: 109440 21 Unit(s) SQ QAM 05/24/2016 05/23/2016 Inactive Lantus Solostar 100 unit/mL (3 mL) subcutaneous insulin pen RxNorm: 636649 32 Unit(s) SQ QHS 04/22/2016 05/25/2016 Inactive Humulin 70/30 100 unit/mL subcutaneous suspension RxNorm: 021363 21 Unit(s) SQ QAM 04/22/2016 05/24/2016 Inactive with breakfast hydrochlorothiazide 25 mg tablet RxNorm: 136659 TAKE ONE TABLET BY MOUTH DAILY 02/04/2016 02/16/2016 Inactive terazosin 2 mg capsule RxNorm: 082465 Capsule(s) TAKE ONE CAPSULE BY MOUTH DAILY. 12/01/2015 05/28/2016 Inactive Humulin 70/30 100 unit/mL subcutaneous suspension RxNorm: 120875 INJECT 10 UNITS UNDER THE SKIN BEFORE MEALS 11/06/2015 03/16/2016 Inactive hydrochlorothiazide 25 mg tablet RxNorm: 462476 1 Tablet(s) PO daily 10/06/2015 02/02/2016 Inactive cyanocobalamin (vit B-12) 1,000 mcg/mL injection solution RxNorm: 459155 Milliliter(s) Inj 09/15/2015 09/15/2015 Inactive Humulin 70/30 100 unit/mL subcutaneous suspension RxNorm: 077962 INJECT 10 UNITS UNDER THE SKIN BEFORE MEALS 09/08/2015 10/10/2015 Inactive cyanocobalamin (vit B-12) 1,000 mcg/mL injection solution RxNorm: 809280 Milliliter(s) Inj 09/08/2015 09/08/2015 Inactive terazosin 2 mg capsule RxNorm: 756324 TAKE ONE CAPSULE BY MOUTH DAILY. DISCONTINUE 5 MG CAPSULES 09/01/2015 11/29/2015 Inactive cyanocobalamin (vit B-12) 1,000 mcg/mL injection solution RxNorm: 329080 Milliliter(s) Inj 09/01/2015 09/01/2015 Inactive cyanocobalamin (vit B-12) 1,000 mcg/mL injection solution RxNorm: 860902 Milliliter(s) Inj 08/25/2015 08/25/2015 Inactive levothyroxine 112 mcg tablet RxNorm: 674952 1 Tablet(s) PO daily 08/06/2015 02/14/2017 Inactive Lantus Solostar 100 unit/mL (3 mL) subcutaneous insulin pen RxNorm: 800523 35 Unit(s) SQ QHS 08/06/2015 04/21/2016 Inactive Humulin 70/30 100 unit/mL subcutaneous suspension RxNorm: 215787 20 Unit(s) SQ AC 08/05/2015 04/21/2016 Inactive with breakfast carvedilol 12.5 mg tablet RxNorm: 987082 1 Tablet(s) PO BID 08/05/2015 01/31/2016 Inactive Humulin 70/30 100 unit/mL subcutaneous suspension RxNorm: 540757 10 Unit(s) SQ AC 07/22/2015 08/04/2015 Inactive losartan 100 mg tablet RxNorm: 685683 TAKE ONE TABLET BY MOUTH DAILY 06/25/2015 06/18/2016 Inactive Lantus Solostar 100 unit/mL (3 mL) subcutaneous insulin pen RxNorm: 353126 30 Unit(s) SQ Q 06/18/2015 08/05/2015 Inactive terazosin 2 mg capsule RxNorm: 922848 1 Capsule(s) PO daily 04/14/2015 08/11/2015 Inactive DC the 5mg order terazosin 2 mg capsule RxNorm: 002223 1 Capsule(s) PO daily 04/14/2015 04/13/2015 Inactive Synthroid 25 mcg tablet RxNorm: 298519 1 Tablet(s) PO daily 04/11/2015 02/14/2017 Inactive Synthroid 25 mcg tablet RxNorm: 465660 1 Tablet(s) PO daily 04/11/2015 04/10/2015 Inactive Lantus Solostar 100 unit/mL (3 mL) subcutaneous insulin pen RxNorm: 691418 30 Unit(s) SQ QHS 04/04/2015 06/17/2015 Inactive terazosin 5 mg tablet RxNorm: 753430 1 Tablet(s) PO daily 04/03/2015 04/13/2015 Inactive Lantus Solostar 100 unit/mL (3 mL) subcutaneous insulin pen RxNorm: 356955 25 Unit(s) SQ QHS 01/08/2015 04/03/2015 Inactive carvedilol 25 mg tablet RxNorm: 034770 1 Tablet(s) PO BID 01/02/2015 01/31/2015 Inactive terazosin 5 mg tablet RxNorm: 643666 1 Tablet(s) PO daily 01/02/2015 01/01/2015 Inactive levothyroxine 125 mcg tablet RxNorm: 683770 1 Tablet(s) PO daily 01/02/2015 01/31/2015 Inactive terazosin 5 mg tablet RxNorm: 837203 1/2 Tablet(s) PO daily 01/02/2015 01/31/2015 Inactive losartan 100 mg tablet RxNorm: 550982 1 Tablet(s) PO daily 12/24/2014 04/22/2015 Inactive losartan 100 mg tablet RxNorm: 712439 1 Tablet(s) PO daily 12/24/2014 12/23/2014 Inactive Contour Test Strips RxNorm: Miscellaneous test blood sugars BID 12/06/2014 12/05/2014 Inactive dx 250.00 Contour Test Strips RxNorm: Miscellaneous test blood sugars BID or UD 12/06/2014 06/23/2015 Inactive dx 250.00 [SAVINGS FOR NON-COVERED DRUGS -- BIN:[id number], PCN: [id number], Group: [id number], ID# [id number], Questions: . THIS IS NOT INSURANCE.] folic acid 1 mg tablet RxNorm: 063201 1 Tablet(s) PO QHS No Start Date Active Microlet Lancet RxNorm: Miscellaneous Test BID or Ud No Start Date Active 250.0 aspirin 81 mg tablet,delayed release RxNorm: 784367 1 Tablet(s) PO daily No Start Date Active Stool Softener 100 mg capsule RxNorm: 1444033 1 Capsule(s) PO every other day No Start Date Active folic acid oral RxNorm: 4511 oral No Start Date 05/19/2017 Inactive cyanocobalamin (vit B-12) 100 mcg tablet RxNorm: 985970 1 Tablet(s) PO daily No Start Date 02/14/2017 Inactive hydrochlorothiazide 25 mg tablet RxNorm: 607052 1 Tablet(s) PO daily No Start Date 10/05/2015 Inactive Stool Softener 100 mg capsule RxNorm: 1922734 1 Capsule(s) PO daily No Start Date 05/18/2017 Inactive Humulin 70/30 100 unit/mL subcutaneous suspension RxNorm: 497161 20 Unit(s) SQ QAM No Start Date 07/21/2015 Inactive levothyroxine 100 mcg tablet RxNorm: 236581 1 Tablet(s) PO daily No Start Date 05/10/2018 Inactive Lantus Solostar 100 unit/mL (3 mL) subcutaneous insulin pen RxNorm: 567570 20 Unit(s) SQ QHS No Start Date 01/07/2015 Inactive ferrous sulfate 325 mg (65 mg iron) tablet RxNorm: 796472 1 Tablet(s) PO daily No Start Date 05/18/2017 Inactive Medication Administered Medication Codes Instructions Start Date Status cyanocobalamin (vit B-12) 1,000 mcg/mL injection solution RxNorm: 006630 1Milliliter 01/12/2018 No longer Active cyanocobalamin (vit B-12) 1,000 mcg/mL injection solution RxNorm: 364946 Milliliter 09/15/2017 No longer Active cyanocobalamin (vit B-12) 1,000 mcg/mL injection solution RxNorm: 686552 1Milliliter 08/17/2017 No longer Active cyanocobalamin (vit B-12) 1,000 mcg/mL injection solution RxNorm: 433082 1Milliliter 07/19/2017 No longer Active cyanocobalamin (vit B-12) 1,000 mcg/mL injection solution RxNorm: 175757 1Milliliter 05/19/2017 No longer Active cyanocobalamin (vit B-12) 1,000 mcg/mL injection solution RxNorm: 305567 1Milliliter 04/06/2017 No longer Active cyanocobalamin (vit B-12) 1,000 mcg/mL injection solution RxNorm: 293861 Milliliter 01/04/2017 No longer Active cyanocobalamin (vit B-12) 1,000 mcg/mL injection solution RxNorm: 486360 1Milliliter 12/10/2016 No longer Active cyanocobalamin (vit B-12) 1,000 mcg/mL injection solution RxNorm: 830756 Milliliter 10/13/2016 No longer Active cyanocobalamin (vit B-12) 1,000 mcg/mL injection solution RxNorm: 627125 1Milliliter 09/03/2016 No longer Active cyanocobalamin (vit B-12) 1,000 mcg/mL injection solution RxNorm: 996679 Milliliter 07/29/2016 No longer Active cyanocobalamin (vit B-12) 1,000 mcg/mL injection solution RxNorm: 452780 1Milliliter 06/03/2016 No longer Active cyanocobalamin (vit B-12) 1,000 mcg/mL injection solution RxNorm: 080513 Milliliter 09/15/2015 No longer Active cyanocobalamin (vit B-12) 1,000 mcg/mL injection solution RxNorm: 359641 Milliliter 09/08/2015 No longer Active cyanocobalamin (vit B-12) 1,000 mcg/mL injection solution RxNorm: 848600 Milliliter 09/01/2015 No longer Active cyanocobalamin (vit B-12) 1,000 mcg/mL injection solution RxNorm: 082388 Milliliter 08/25/2015 No longer Active Immunizations Vaccine [...] For Visit Effective Dates Notes diabetes mellitus 08/15/2018 diabetes mellitus 06/05/2018 diabetes [...] 29.3 pg 08/15/2018 Cbc With Differential Ord2 [place]% 10.9 % 08/15/2018 Cbc With Differential Ord2 [...] 2.66 K/ul 08/15/2018 Cbc With Differential Ord2 [place] ABS# 0.7 K/ul 08/15/2018 Cbc With Differential Ord2 Eos ABS# 0.2 K/ul 08/15/2018 Cbc With Differential Ord2 Baso ABS# 0.0 K/ul 08/15/2018 Comp Metabolic Uii405 NA 139 mEq/L 08/15/2018 Comp Metabolic Pzd764 K 4.0 mEq/L 08/15/2018 Comp Metabolic Qzd756 CL 107 mEq/L 08/15/2018 Comp Metabolic Pev646 CO2 25.0 mEq/L 08/15/2018 Comp Metabolic Aon426 ANION GAP 11 08/15/2018 Comp Metabolic Bzt498 GLUCOSE 142 mg/dL 08/15/2018 Comp Metabolic Mac877 Creat 0.9 mg/dL 08/15/2018 Comp Metabolic Llv876 eGFR 64 ml/min/1.73m2 08/15/2018 Comp Metabolic Vyy763 BUN 22 mg/dL 08/15/2018 Comp Metabolic Msy119 B/C Ratio 24.4 Ratio 08/15/2018 Comp Metabolic Lwe112 CALCIUM 9.3 mg/dL 08/15/2018 Comp Metabolic Ewu278 ALK PHOS 83 U/L 08/15/2018 Comp Metabolic Eqf081 AST(SGOT) 35 U/L 08/15/2018 Comp Metabolic Udc680 ALT(SGPT) 19 U/L 08/15/2018 Comp Metabolic Rnr361 BILI T 0.6 mg/dL 08/15/2018 Comp Metabolic Oag827 ALBUMIN 3.7 g/dL 08/15/2018 Comp Metabolic Lpa131 TPRO 6.3 g/dL 08/15/2018 Comp Metabolic Hdd354 GLOB 2.6 g/dL 08/15/2018 Comp Metabolic Pab465 A/G Ratio 1.5 Ratio 08/15/2018 Comp Metabolic Kej152 Osmo 283 mOsmo 08/15/2018 Tsh Ord6 TSH (3rd IS) 2.43 uIU/mL 08/15/2018 %Hba1C Mtc164 % HbA1c 11766- 6 7.4 % 08/15/2018 %Hba1C Joq951 Gluc Ave 166 mg/dL 08/15/2018 Free T4 Yqn740 FREE T4 1.21 ng/dL 05/15/2018 Tsh Ord6 TSH (3rd IS) 0.97 uIU/mL 05/15/2018 Comp Metabolic Vhm580 NA 142 mEq/L 05/15/2018 Comp Metabolic Zbx787 K 4.0 mEq/L 05/15/2018 Comp Metabolic Gxu724 CL 107 mEq/L 05/15/2018 Comp Metabolic Nxl360 CO2 28.0 mEq/L 05/15/2018 Comp Metabolic Pih155 ANION GAP 11 05/15/2018 Comp Metabolic Jdp894 GLUCOSE 211 mg/dL 05/15/2018 Comp Metabolic Aoe841 Creat 0.9 mg/dL 05/15/2018 Comp Metabolic Idv908 eGFR 61 ml/min/1.73m2 05/15/2018 Comp Metabolic Dmz925 BUN 21 mg/dL 05/15/2018 Comp Metabolic Bgv333 B/C Ratio 22.6 Ratio 05/15/2018 Comp Metabolic Rxo540 CALCIUM 9.1 mg/dL 05/15/2018 Comp Metabolic Jfn106 ALK PHOS 85 U/L 05/15/2018 Comp Metabolic Les543 AST(SGOT) 36 U/L 05/15/2018 Comp Metabolic Xqv488 ALT(SGPT) 19 U/L 05/15/2018 Comp Metabolic Wkk771 BILI T 0.6 mg/dL 05/15/2018 Comp Metabolic Uen852 ALBUMIN 3.8 g/dL 05/15/2018 Comp Metabolic Lsn730 TPRO 6.2 g/dL 05/15/2018 Comp Metabolic Wja642 GLOB 2.4 g/dL 05/15/2018 Comp Metabolic Kfy522 A/G Ratio 1.6 Ratio 05/15/2018 Comp Metabolic Nwq443 Osmo 292 mOsmo 05/15/2018 %Hba1C Zwx002 % HbA1c 17864- 6 7.8 % 05/15/2018 %Hba1C Get296 Gluc Ave 177 mg/dL 05/15/2018 Comp Metabolic Nvf369 NA 139 mEq/L 11/28/2017 Comp Metabolic Epo902 K 4.1 mEq/L 11/28/2017 Comp Metabolic Qzr615 CL 105 mEq/L 11/28/2017 Comp Metabolic Oil994 CO2 26.0 mEq/L 11/28/2017 Comp Metabolic Wyx568 ANION GAP 12 11/28/2017 Comp Metabolic Nan526 GLUCOSE 132 mg/dL 11/28/2017 Comp Metabolic Ppu135 Creat 0.9 mg/dL 11/28/2017 Comp Metabolic Tmc617 eGFR 66 ml/min/1.73m2 11/28/2017 Comp Metabolic Izc972 BUN 17 mg/dL 11/28/2017 Comp Metabolic Esi410 B/C Ratio 19.5 Ratio 11/28/2017 Comp Metabolic Itc263 CALCIUM 9.1 mg/dL 11/28/2017 Comp Metabolic Afa999 ALK PHOS 78 U/L 11/28/2017 Comp Metabolic Uif567 AST(SGOT) 35 U/L 11/28/2017 Comp Metabolic Lxs327 ALT(SGPT) 17 U/L 11/28/2017 Comp Metabolic Ybg353 BILI T 0.6 mg/dL 11/28/2017 Comp Metabolic Bvr710 ALBUMIN 3.9 g/dL 11/28/2017 Comp Metabolic Kwv410 TPRO 6.4 g/dL 11/28/2017 Comp Metabolic Yxa598 GLOB 2.5 g/dL 11/28/2017 Comp Metabolic Qox359 A/G Ratio 1.6 Ratio 11/28/2017 Comp Metabolic Zkr594 Osmo 281 mOsmo 11/28/2017 Tsh Ord6 TSH (3rd IS) 1.14 uIU/mL 11/28/2017 Free T4 Iad048 FREE T4 1.05 ng/dL 11/28/2017 %Hba1C Zhd034 % HbA1c 22523- 6 7.7 % 11/25/2017 %Hba1C Rsz064 Gluc Ave 174 mg/dL 11/25/2017 Cbc With [...] 29.8 pg 11/25/2017 Cbc With Differential Ord2 [place]% 10.2 % 11/25/2017 Cbc With Differential Ord2 [...] 2.56 K/ul 11/25/2017 Cbc With Differential Ord2 [place] ABS# 0.7 K/ul 11/25/2017 Cbc With Differential [...] 30.3 pg 05/19/2017 Cbc With Differential Ord2 [place]% 6.8 % 05/19/2017 Cbc With Differential Ord2 [...] 1.64 K/ul 05/19/2017 Cbc With Differential Ord2 [place] ABS# 0.6 K/ul 05/19/2017 Cbc With Differential Ord2 Eos ABS# 0.2 K/ul 05/19/2017 Cbc With Differential Ord2 Baso ABS# 0.0 K/ul 05/19/2017 B12 Rgs616 B12 >1500.00 pg/ml 05/19/2017 Free T4 Pxw469 FREE T4 1.10 ng/dL 05/19/2017 %Hba1C Ngd738 % HbA1c 95378- 6 6.8 % 05/19/2017 %Hba1C Ova137 Gluc Ave 148 mg/dL 05/19/2017 Tsh Ord6 hTSH II 1.73 uIU/mL 05/19/2017 Comp Metabolic Ktc151 NA 140 mEq/L 05/19/2017 Comp Metabolic Abk855 K 3.8 mEq/L 05/19/2017 Comp Metabolic Ojc679 CL 108 mEq/L 05/19/2017 Comp Metabolic Tvh601 CO2 21.0 mEq/L 05/19/2017 Comp Metabolic Yqg185 ANION GAP 15 05/19/2017 Comp Metabolic Uiz665 GLUCOSE 207 mg/dL 05/19/2017 Comp Metabolic Zja123 Creat 1.0 mg/dL 05/19/2017 Comp Metabolic Wta284 eGFR 55 ml/min/1.73m2 05/19/2017 Comp Metabolic Xxr707 BUN 21 mg/dL 05/19/2017 Comp Metabolic Arw770 B/C Ratio 20.4 Ratio 05/19/2017 Comp Metabolic Lpg252 CALCIUM 9.1 mg/dL 05/19/2017 Comp Metabolic Vtj991 ALK PHOS 74 U/L 05/19/2017 Comp Metabolic Idc879 AST(SGOT) 32 U/L 05/19/2017 Comp Metabolic Low564 ALT(SGPT) 15 U/L 05/19/2017 Comp Metabolic Dod442 BILI T 0.6 mg/dL 05/19/2017 Comp Metabolic Mkh240 ALBUMIN 3.9 g/dL 05/19/2017 Comp Metabolic Gif974 TPRO 6.2 g/dL 05/19/2017 Comp Metabolic Bgg729 GLOB 2.3 g/dL 05/19/2017 Comp Metabolic Eto727 A/G Ratio 1.6 Ratio 05/19/2017 Comp Metabolic Pxk886 Osmo 288 mOsmo 05/19/2017 Cbc With Differential [...] 29.3 pg 12/10/2016 Cbc With Differential Ord2 [place]% 7.1 % 12/10/2016 Cbc With Differential Ord2 [...] 2.50 K/ul 12/10/2016 Cbc With Differential Ord2 [place] ABS# 0.5 K/ul 12/10/2016 Cbc With Differential Ord2 Eos ABS# 0.1 K/ul 12/10/2016 Cbc With Differential Ord2 Baso ABS# 0.0 K/ul 12/10/2016 B12 Lnw290 B12 222.00 pg/ml 12/10/2016 %Hba1C Flr963 % HbA1c 86695- 6 7.5 % 11/16/2016 %Hba1C Opa630 Gluc Ave 169 mg/dL 11/16/2016 Free T4 Cwk718 FREE T4 1.03 ng/dL 11/16/2016 Comp Metabolic Qta137 NA 138 mEq/L 11/16/2016 Comp Metabolic Wha577 K 3.8 mEq/L 11/16/2016 Comp Metabolic Pyf821 CL 103 mEq/L 11/16/2016 Comp Metabolic Lin378 CO2 26.0 mEq/L 11/16/2016 Comp Metabolic Vxu555 ANION GAP 13 11/16/2016 Comp Metabolic Pby585 GLUCOSE 235 mg/dL 11/16/2016 Comp Metabolic Ipv110 Creat 0.9 mg/dL 11/16/2016 Comp Metabolic Foc596 eGFR 62 ml/min/1.73m2 11/16/2016 Comp Metabolic Ine858 BUN 20 mg/dL 11/16/2016 Comp Metabolic Ikm817 B/C Ratio 21.7 Ratio 11/16/2016 Comp Metabolic Prr904 CALCIUM 8.9 mg/dL 11/16/2016 Comp Metabolic Gli561 ALK PHOS 75 U/L 11/16/2016 Comp Metabolic Acy497 AST(SGOT) 30 U/L 11/16/2016 Comp Metabolic Kfh036 ALT(SGPT) 13 U/L 11/16/2016 Comp Metabolic Xlu256 BILI T 0.6 mg/dL 11/16/2016 Comp Metabolic Oku122 ALBUMIN 3.8 g/dL 11/16/2016 Comp Metabolic Aff495 TPRO 6.8 g/dL 11/16/2016 Comp Metabolic Szt557 GLOB 3.1 g/dL 11/16/2016 Comp Metabolic Dok890 A/G Ratio 1.2 Ratio 11/16/2016 Comp Metabolic Zux784 Osmo 286 mOsmo 11/16/2016 Tsh Ord6 hTSH II 2.50 uIU/mL 11/16/2016 Tsh Ord6 hTSH II 3.18 uIU/mL 05/21/2016 Lipid Ord30 CHOL 212 mg/dL 05/21/2016 Lipid Ord30 HDL 43.0 mg/dl 05/21/2016 Lipid Ord30 TRIG 164 mg/dL 05/21/2016 Lipid Ord30 LDL 136 mg/dL 05/21/2016 Lipid Ord30 C/HDL 4.9 Ratio 05/21/2016 B12 Ssh753 B12 159.00 pg/ml 05/21/2016 %Hba1C Zdy401 % HbA1c 00653- 6 7.5 % 05/21/2016 %Hba1C Ncf323 Gluc Ave 169 mg/dL 05/21/2016 Folate Ord36 Folate >23.80 ng/mL 05/21/2016 Free T4 Tjy538 FREE T4 1.03 ng/dL 05/21/2016 CHEM 14 7264125 AST 33 U/L 03/15/2016 CHEM 14 0802927 ALT 13 U/L 03/15/2016 CHEM 14 6648775 BUN 18 mg/dL 03/15/2016 CHEM 14 0974603 ALBUMIN 3.9 g/dL 03/15/2016 CHEM 14 1052727 CHLORIDE 105 mmol/L 03/15/2016 CHEM 14 1734996 Bili Total 0.4 mg/dL 03/15/2016 CHEM 14 3275638 ALK PHOS 60 U/L 03/15/2016 CHEM 14 3243570 SODIUM 138 mmol/L 03/15/2016 CHEM 14 2887553 CREATININE 0.99 mg/dL 03/15/2016 CHEM 14 2139934 CALCIUM 9.4 mg/dL 03/15/2016 CHEM 14 9898664 POTASSIUM 3.8 mmol/L 03/15/2016 CHEM 14 2864115 TOTAL PROTEIN 6.7 g/dL 03/15/2016 CHEM 14 7290062 GLUCOSE 109 mg/dL 03/15/2016 CHEM 14 5622998 Bicarbonate 27 mmol/L 03/15/2016 CHEM 14 8127370 AGAP 6 mmol/L 03/15/2016 GFR CALC 3787980 GFR Non Afr Amr 54 mL/min 03/15/2016 GFR CALC 3150392 GFR Afr Amr >60 mL/min 03/15/2016 B12 Ide039 B12 46.00 pg/ml 08/07/2015 Iron Ord72 Iron [...] Ord2 RDW 16.6 % 08/05/2015 Free T4 Jhb211 FREE T4 1.33 ng/dL 08/05/2015 Comp Metabolic Ldm209 NA 137 mEq/L 08/05/2015 Comp Metabolic Edw164 K 4.5 mEq/L 08/05/2015 Comp Metabolic Rbu728 CL 104 mEq/L 08/05/2015 Comp Metabolic Dov699 CO2 26.0 mEq/L 08/05/2015 Comp Metabolic Dth767 ANION GAP 12 08/05/2015 Comp Metabolic Yyt929 GLUCOSE 146 mg/dL 08/05/2015 Comp Metabolic Www319 Creat 1.0 mg/dL 08/05/2015 Comp Metabolic Ohd510 eGFR 56 ml/min/1.73m2 08/05/2015 Comp Metabolic Xoq512 BUN 23 mg/dL 08/05/2015 Comp Metabolic Leh778 B/C Ratio 22.8 Ratio 08/05/2015 Comp Metabolic Hak848 CALCIUM 9.3 mg/dL 08/05/2015 Comp Metabolic Gdd724 ALK PHOS 71 U/L 08/05/2015 Comp Metabolic Ddo561 AST(SGOT) 33 U/L 08/05/2015 Comp Metabolic Mam223 ALT(SGPT) 15 U/L 08/05/2015 Comp Metabolic Ret792 BILI T 0.6 mg/dL 08/05/2015 Comp Metabolic Qcc598 ALBUMIN 3.9 g/dL 08/05/2015 Comp Metabolic Rbu344 TPRO 6.5 g/dL 08/05/2015 Comp Metabolic Iff401 GLOB 2.6 g/dL 08/05/2015 Comp Metabolic Rpk159 A/G Ratio 1.5 Ratio 08/05/2015 Comp Metabolic Srr561 Osmo 280 mOsmo 08/05/2015 Tsh Ord6 hTSH II 0.36 uIU/mL 08/05/2015 %Hba1C Tbw926 % HbA1c 17290- 6 8.1 % 08/05/2015 %Hba1C Njl202 Gluc Ave 186 mg/dL 08/05/2015 Free T4 Mpk052 FREE T4 0.91 ng/dL 04/11/2015 %Hba1C Jty622 % HbA1c 69189- 6 8.3 % 04/10/2015 %Hba1C Ovc436 Gluc Ave 192 mg/dL 04/10/2015 Cbc With [...] Ord2 RDW 15.8 % 04/10/2015 Comp Metabolic Ihi978 NA 134 mEq/L 04/10/2015 Comp Metabolic Evv032 K 4.1 mEq/L 04/10/2015 Comp Metabolic Bnb779 CL 105 mEq/L 04/10/2015 Comp Metabolic Pmy732 CO2 26.0 mEq/L 04/10/2015 Comp Metabolic Lqo764 ANION GAP 7 04/10/2015 Comp Metabolic Nhg218 GLUCOSE 126 mg/dL 04/10/2015 Comp Metabolic Piy795 Creat 1.0 mg/dL 04/10/2015 Comp Metabolic Jqe091 eGFR 58 ml/min/1.73m2 04/10/2015 Comp Metabolic Twm493 BUN 29 mg/dL 04/10/2015 Comp Metabolic Opc229 B/C Ratio 29.6 Ratio 04/10/2015 Comp Metabolic Spj675 CALCIUM 9.3 mg/dL 04/10/2015 Comp Metabolic Msa969 ALK PHOS 63 U/L 04/10/2015 Comp Metabolic Llj044 AST(SGOT) 31 U/L 04/10/2015 Comp Metabolic Oqa909 ALT(SGPT) 14 U/L 04/10/2015 Comp Metabolic Zys767 BILI T 0.6 mg/dL 04/10/2015 Comp Metabolic Zjg273 ALBUMIN 3.9 g/dL 04/10/2015 Comp Metabolic Wcn051 TPRO 6.3 g/dL 04/10/2015 Comp Metabolic Jmm947 GLOB 2.4 g/dL 04/10/2015 Comp Metabolic Lhp202 A/G Ratio 1.6 Ratio 04/10/2015 Comp Metabolic Lrh618 Osmo 276 mOsmo 04/10/2015 Tsh Ord6 hTSH II 6.71 uIU/mL 04/10/2015 Review of Systems System Result Effective Dates Constitutional No recent illness 08/15/2018 Constitutional No [...] Date GLUC MONITOR CONT PHYS I&R CPT-4: 16344 06/05/2018 GLUCOSE MONITORING CONT CPT-4: 17212 05/22/2018 THER/PROPH/DIAG INJ SC/IM CPT-4: 07857 01/12/2018 VITAMIN B12 INJECTION CPT- 4: J3420 01/12/2018 THER/PROPH/DIAG INJ SC/IM CPT-4: 01394 09/15/2017 VITAMIN B12 INJECTION CPT- 4: J3420 09/15/2017 THER/PROPH/DIAG INJ SC/IM CPT-4: 20302 08/17/2017 VITAMIN B12 INJECTION CPT- 4: J3420 08/17/2017 THER/PROPH/DIAG INJ SC/IM CPT-4: 16027 07/19/2017 VITAMIN B12 INJECTION CPT- 4: J3420 07/19/2017 THER/PROPH/DIAG INJ SC/IM CPT-4: 90571 05/19/2017 VITAMIN B12 INJECTION CPT- 4: J3420 05/19/2017 THER/PROPH/DIAG INJ SC/IM CPT-4: 94900 04/06/2017 VITAMIN B12 INJECTION CPT- 4: J3420 04/06/2017 THER/PROPH/DIAG INJ SC/IM CPT-4: 93910 01/04/2017 VITAMIN B12 INJECTION CPT- 4: J3420 01/04/2017 THER/PROPH/DIAG INJ SC/IM CPT-4: 41103 12/10/2016 VITAMIN B12 INJECTION CPT- 4: J3420 12/10/2016 THER/PROPH/DIAG INJ SC/IM CPT-4: 53728 10/13/2016 TRIAMCINOLONE ACET INJ NOS CPT-4: J3301 10/13/2016 THER/PROPH/DIAG INJ SC/IM CPT-4: 40858 09/03/2016 VITAMIN B12 INJECTION CPT- 4: J3420 09/03/2016 THER/PROPH/DIAG INJ SC/IM CPT-4: 86546 07/29/2016 VITAMIN B12 INJECTION CPT- 4: J3420 07/29/2016 THER/PROPH/DIAG INJ SC/IM CPT-4: 68399 06/03/2016 VITAMIN B12 INJECTION CPT- 4: J3420 06/03/2016 PNEUMOCOCCAL VACC [address]: 86536244 CPT-4: 10587 04/22/2016 ADMIN PNEUMOCOCCAL VACCINE SNOMED CT: 95042434 CPT-4: G0009 04/22/2016 VITAMIN B12 INJECTION CPT- 4: J3420 09/15/2015 THER/PROPH/DIAG INJ SC/IM CPT-4: 54617 09/15/2015 THER/PROPH/DIAG INJ SC/IM CPT-4: 13950 09/08/2015 VITAMIN B12 INJECTION CPT- 4: J3420 09/08/2015 THER/PROPH/DIAG INJ SC/IM CPT-4: 90182 09/01/2015 VITAMIN B12 INJECTION CPT- 4: J3420 09/01/2015 THER/PROPH/DIAG INJ SC/IM CPT-4: 26153 08/25/2015 VITAMIN B12 INJECTION CPT- 4: J3420 08/25/2015 Vital Signs Date Vital 08/15/2018 Blood Pressure 1: 144/70 Code: 8480-6 BMI: 40.8 Code: 66886-5 Heart Rate 1: 83 bpm Height: 4'11" SpO2: 97% Weight: 202 lbs 06/05/2018 Blood Pressure 1: 132/70 Code: 8480-6 BMI: 41.6 Code: 21653-2 Heart Rate 1: 70 bpm Height: 4'11" SpO2: 96% Weight: 206 lbs 05/22/2018 Blood Pressure 1: 148/72 Code: 8480-6 BMI: 41.6 Code: 82496-1 Heart Rate 1: 82 bpm Height: 4'11" SpO2: 95% Weight: 206 lbs 05/15/2018 Blood Pressure 1: 140/80 Code: 8480-6 BMI: 41.6 Code: 33518-3 Heart Rate 1: 86 bpm Height: 4'11" SpO2: 92% Weight: 206 lbs 01/12/2018 Blood Pressure 1: 140/78 Code: 8480-6 BMI: 42.2 Code: 51375-5 Heart Rate 1: 73 bpm Height: 4'11" SpO2: 97% Weight: 209 lbs 11/25/2017 Blood Pressure 1: 140/68 Code: 8480-6 BMI: 42.2 Code: 80090-4 Heart Rate 1: 76 bpm Height: 4'11" SpO2: 94% Weight: 209 lbs 09/15/2017 Blood Pressure 1: 146/67 Code: 8480-6 BMI: 42.2 Code: 03584-3 Heart Rate 1: 69 bpm Height: 4'11" SpO2: 97% Weight: 209 lbs 08/17/2017 Blood Pressure 1: 144/70 Code: 8480-6 BMI: 41.8 Code: 95690-4 Heart Rate 1: 63 bpm Height: 4'11" SpO2: 97% Weight: 207 lbs 07/19/2017 Blood Pressure 1: 142/74 Code: 8480-6 BMI: 41.4 Code: 23519-4 Heart Rate 1: 71 bpm Height: 4'11" SpO2: 96% Weight: 205 lbs 05/19/2017 Blood Pressure 1: 148/76 Code: 8480-6 BMI: 42.8 Code: 94473-8 Heart Rate 1: 72 bpm Height: 4'11" SpO2: 94% Weight: 212 lbs 02/15/2017 Blood Pressure 1: 154/70 Code: 8480-6 BMI: 42.5 Code: 82753-9 Heart Rate 1: 68 bpm Height: 4'11" SpO2: 97% Weight: 210 lbs 8 oz 11/16/2016 Blood Pressure 1: 142/78 Code: 8480-6 BMI: 41.6 Code: 44577-3 Heart Rate 1: 68 bpm Height: 4'11" SpO2: 95% Temperature: 36.0 (C) / 96.8 (F) Weight: 206 lbs 08/19/2016 Blood Pressure 1: 120/74 Code: 8480-6 BMI: 41.6 Code: 15882-4 Heart Rate 1: 75 bpm Height: 4'11" SpO2: 95% Weight: 206 lbs 07/15/2016 Blood Pressure 1: 140/76 Code: 8480-6 BMI: 42.0 Code: 92761-2 Heart Rate 1: 76 bpm Height: 4'11" SpO2: 96% Weight: 208 lbs 06/03/2016 Blood Pressure 1: 130/78 Code: 8480-6 BMI: 42.8 Code: 24933-6 Heart Rate 1: 72 bpm Height: 4'11" SpO2: 98% Weight: 212 lbs 04/22/2016 Blood Pressure 1: 142/84 Code: 8480-6 BMI: 41.8 Code: 52915-1 Heart Rate 1: 86 bpm Height: 4'11" SpO2: 92% Weight: 207 lbs 01/22/2016 Blood Pressure 1: 162/64 Code: 8480-6 BMI: 41.2 Code: 00420-5 Heart Rate 1: 70 bpm Height: 4'11" SpO2: 97% Weight: 204 lbs 10/23/2015 Blood Pressure 1: 130/70 Code: 8480-6 BMI: 40.4 Code: 30556-9 Heart Rate 1: 72 bpm Height: 4'11" SpO2: 95% Weight: 200 lbs 09/12/2015 Blood Pressure 1: 142/62 Code: 8480-6 BMI: 39.4 Code: 84377-8 Heart Rate 1: 63 bpm Height: 4'11" SpO2: 96% Weight: 195 lbs 08/05/2015 Blood Pressure 1: 144/60 Code: 8480-6 BMI: 41.0 Code: 30934-3 Heart Rate 1: 92 bpm Height: 4'11" SpO2: 90% SpO2: 97% Weight: 203 lbs 04/03/2015 Blood Pressure 1: 142/68 Code: 8480-6 BMI: 40.6 Code: 28658-0 Heart Rate 1: 77 bpm Height: 4'11" SpO2: 95% Weight: 201 lbs 01/30/2015 Blood Pressure 1: 150/72 Code: 8480-6 BMI: 40.2 Code: 02237-8 Heart Rate 1: 64 bpm Height: 4'11" Weight: 199 lbs 01/02/2015 Blood Pressure 1: 136/72 Code: 8480-6 BMI: 39.8 Code: 34104-5 Heart Rate 1: 68 bpm Height: 4'11" Weight: 197 lbs Functional Status No Functional Status data History of Present Illness Symptom Name Status Result Effective Date Notes Quality insulin dependent 08/15/2018 None Quality chronic [...] data Encounters Encounter Performer Location Codes Date ([id number]) 51717 EST. PATIENT, LEVEL IV Diagnosis: Type 2 diabetes mellitus with hyperglycemia[ICD10: E11.65] Diagnosis: Essential (primary) hypertension[ICD10: I10] Diagnosis: Chronic kidney disease, stage 3 (moderate)[ICD10: N18.3] Diagnosis: Low back pain[ICD10: M54.5] Giselle Knox MD, [facility] CPT-4: 59012 08/15/2018 [id number]) 37501 EST. PATIENT, LEVEL III Diagnosis: Type 2 diabetes mellitus with hyperglycemia[ICD10: E11.65] Giselle Knox MD, [facility] CPT-4: 35328 06/05/2018 ([id number]) Miscellaneous no charge Diagnosis: Type 2 diabetes mellitus with hyperglycemia[ICD10: E11.65] Jennifer Knox MD, [facility] CPT-4: 46425 05/29/2018 ([id number]) 71921 EST. PATIENT, LEVEL IV Diagnosis: Type 2 diabetes mellitus with hyperglycemia[ICD10: E11.65] Diagnosis: Essential (primary) hypertension[ICD10: I10] Diagnosis: Hypothyroidism, unspecified[ICD10: E03.9] Giselle Knox MD, [facility] CPT-4: 34302 05/15/2018 [id number]) 87473 EST. PATIENT, LEVEL IV Diagnosis: Essential (primary) hypertension[ICD10: I10] Diagnosis: Type 2 diabetes mellitus with hyperglycemia[ICD10: E11.65] Diagnosis: Hypothyroidism, unspecified[ICD10: E03.9] Diagnosis: Spinal stenosis, lumbar region without neurogenic claudication[ICD10: M48.061] Diagnosis: Vitamin B12 deficiency anemia due to intrinsic factor deficiency[ICD10: D51.0] Giselle Knox MD, [facility] CPT-4: 57172 01/12/2018 [id number]) 00336 EST. PATIENT, LEVEL IV Diagnosis: Varicose veins of bilateral lower extremities with pain[ICD10: I83.813] Diagnosis: Low back pain[ICD10: M54.5] Diagnosis: Hypothyroidism, unspecified[ICD10: E03.9] Diagnosis: Type 2 diabetes mellitus with hyperglycemia[ICD10: E11.65] Giselle Knox MD, [facility] CPT-4: 81911 11/25/2017 79569 EST. PATIENT, LEVEL IV Diagnosis: Localized edema[ICD10: R60.0] Diagnosis: Vitamin B12 deficiency anemia due to intrinsic factor deficiency[ICD10: D51.0] Chasity Knox MD, [facility] CPT-4: 77798 09/15/2017 50077 EST. PATIENT, LEVEL IV Diagnosis: Essential (primary) hypertension[ICD10: I10] Diagnosis: Type 2 diabetes mellitus with hyperglycemia[ICD10: E11.65] Diagnosis: Vitamin B12 deficiency anemia due to intrinsic factor deficiency[ICD10: D51.0] Chasity Knox MD, [facility] CPT-4: 52881 08/17/2017 83872 EST. PATIENT, LEVEL IV Diagnosis: Type 2 diabetes mellitus with hyperglycemia[ICD10: E11.65] Diagnosis: Essential (primary) hypertension[ICD10: I10] Diagnosis: Vitamin B12 deficiency anemia due to intrinsic factor deficiency[ICD10: D51.0] Chasity Knox MD, [facility] CPT-4: 26308 07/19/2017 ([id number]) 42608 EST. PATIENT, LEVEL IV Diagnosis: Essential (primary) hypertension[ICD10: I10] Diagnosis: Type 2 diabetes mellitus with hyperglycemia[ICD10: E11.65] Diagnosis: Hypothyroidism, unspecified[ICD10: E03.9] Diagnosis: Vitamin B12 deficiency anemia due to intrinsic factor deficiency[ICD10: D51.0] Diagnosis: Chronic kidney disease, stage 3 (moderate)[ICD10: N18.3] Giselle Knox MD, [facility] CPT-4: 23645 05/19/2017 ([id number]) 19943 EST. PATIENT, LEVEL IV Diagnosis: Essential (primary) hypertension[ICD10: I10] Diagnosis: Type 2 diabetes mellitus with hyperglycemia[ICD10: E11.65] Diagnosis: Hypothyroidism, unspecified[ICD10: E03.9] Giselle Knox MD, [facility] CPT-4: 91856 02/15/2017 ([id number]) 85955 EST. PATIENT, LEVEL IV Diagnosis: Type 2 diabetes mellitus with hyperglycemia[ICD10: E11.65] Diagnosis: Cough[ICD10: R05] Diagnosis: Acute upper respiratory infection, unspecified[ICD10: J06.9] Diagnosis: Hypothyroidism, unspecified[ICD10: E03.9] Diagnosis: Chronic kidney disease, stage 3 (moderate)[ICD10: N18.3] Giselle Knox MD, [facility] CPT-4: 52758 11/16/2016 ([id number]) 96974 EST. PATIENT, LEVEL IV Diagnosis: Type 2 diabetes mellitus with hyperglycemia[ICD10: E11.65] Diagnosis: Hypothyroidism, unspecified[ICD10: E03.9] Diagnosis: Essential (primary) hypertension[ICD10: I10] Giselle Knox MD, [facility] CPT-4: 63511 08/19/2016 ([id number]) 87314 EST. PATIENT, LEVEL III Diagnosis: Type 2 diabetes mellitus with hyperglycemia[ICD10: E11.65] Giselle Knox MD, [facility] CPT-4: 31388 07/15/2016 ([id number]) 97060 EST. PATIENT, LEVEL IV Diagnosis: Type 2 diabetes mellitus with hyperglycemia[ICD10: E11.65] Diagnosis: Atrophy of thyroid (acquired)[ICD10: E03.4] Diagnosis: Vitamin B12 deficiency anemia due to intrinsic factor deficiency[ICD10: D51.0] Diagnosis: Chronic kidney disease, stage 3 (moderate)[ICD10: N18.3] Diagnosis: Essential (primary) hypertension[ICD10: I10] Jennifer Knox MD, [facility] CPT-4: 29656 06/03/2016 ([id number]) 77064 EST. PATIENT, LEVEL III Diagnosis: Type 2 diabetes mellitus with hyperglycemia[ICD10: E11.65] Diagnosis: Essential (primary) hypertension[ICD10: I10] Diagnosis: Chronic kidney disease, stage 3 (moderate)[ICD10: N18.3] Diagnosis: VACCIN STREP PNEUMONIAE[ICD10: Z23] Giselle Knox MD, [facility] CPT-4: 15669 04/22/2016 21960 EST. PATIENT, LEVEL IV Diagnosis: Type 2 diabetes mellitus with hyperglycemia[ICD10: E11.65] Diagnosis: Essential (primary) hypertension[ICD10: I10] Chasity Knox MD, [facility] CPT-4: 13196 01/22/2016 ([id number]) 70631 EST. PATIENT, LEVEL III Diagnosis: Type 2 diabetes mellitus with hyperglycemia[ICD10: E11.65] Diagnosis: Essential (primary) hypertension[ICD10: I10] Giselle Knox MD, [facility] CPT-4: 41175 10/23/2015 [id number] EST. PATIENT, LEVEL IV Diagnosis: Type 2 diabetes mellitus with hyperglycemia[ICD10: E11.65] Diagnosis: Vitamin B12 deficiency anemia due to intrinsic factor deficiency[ICD10: D51.0] Diagnosis: Essential (primary) hypertension[ICD10: I10] Chasity Knox MD, [facility] CPT-4: 44294 09/12/2015 ([id number]) 21846 EST. PATIENT, LEVEL IV Diagnosis: Essential (primary) hypertension[ICD10: I10] Diagnosis: Type 2 diabetes mellitus with hyperglycemia[ICD10: E11.65] Diagnosis: Hypothyroidism, unspecified[ICD10: E03.9] Giselle Knox MD, [facility] CPT-4: 09818 08/05/2015 ([id number]) 77342 EST. PATIENT, LEVEL III Diagnosis: ESSENTIAL HYPERTENSION[ICD9: 401.9] Diagnosis: DIABETES TYPE II[ICD9: 250.00] Jennifer Knox MD, [facility] CPT-4: 13029 04/03/2015 ([id number]) 44228 EST. PATIENT, LEVEL IV Diagnosis: ESSENTIAL HYPERTENSION[ICD9: 401.9] Diagnosis: DIABETES TYPE II[ICD9: 250.00] Diagnosis: Hypothyroidism[ICD9: 244.9] Giselle Knox MD, [facility] CPT-4: 79654 01/30/2015 ([id number]) OFFICE VISIT, NEW - LEVEL 4 Diagnosis: ESSENTIAL HYPERTENSION[ICD9: 401.9] Diagnosis: DIABETES TYPE II[ICD9: 250.00] Diagnosis: Impacted cerumen[ICD9: 380.4] Jennifer Knox MD, [facility] CPT-4: 33534 01/02/2015 Plan of Care Planned Activity Notes Codes Status Date Visit Plan: Diabetes Mellitus - rts. I [...] time. 08/15/2018 Appointment: Giselle Mccoy WPtel: [phone] [phone] (30 min) Complex 08/15/2018 Patient Education: [...] of plan. 06/05/2018 Appointment: Giselle Mccoy WPtel: [phone] (15 min) Moderate 06/05/2018 Patient Education: [...] IPRO. 05/22/2018 Appointment: Giselle Mccoy WPtel: [phone] [phone] (30 min) Complex 05/22/2018 Patient [...] of control. 05/15/2018 Appointment: [phone] (15 min) Moderate 05/15/2018 Patient Education: [...] PT 01/12/2018 Appointment: Giselle Mccoy WPtel: [phone] [phone] [place] (30 min) Complex 01/12/2018 Patient Education: Patient Medication Summary Completed 01/12/2018 Care Plan: Referral Order SNOMED-CT : [id number] Pending 01/12/2018 Visit Plan: Varicose veins-rx for compression stockings provided and instructed on use Low back pain-recommend xray lumbar spine Hypothyroidism- check labs DM-check Hgb A1c 11/25/2017 Appointment: [phone] [place] (30 min) Complex 11/25/2017 Patient Education: Patient Medication Summary Completed 11/25/2017 Care Plan: X-RAY EXAM L-S SPINE 2/ VWS LOINC : 07527-8 Pending 11/25/2017 Visit Plan: Edema - Left [...] concerns. 09/15/2017 App[facility]ment: [phone] [facility] [place] (30 min) Complex 09/15/2017 Patient [...] control. 08/17/2017 Appointment: Chasity Caldwell WPtel: [phone] [phone] (15 min) Moderate 08/17/2017 Patient [...] home. 07/19/2017 Appointment: Chasity Caldwell WPtel: [phone] [phone] (15 min) Moderate 07/19/2017 Patient Education: Patient Medication Summary Completed 07/19/2017 Appointment: Jennifer Knox WPtel: [phone] [phone] (15 min) Moderate 06/13/2017 Visit Plan: [...] medications. 05/19/2017 Appointment: [phone] [phone] (30 min) Complex 05/19/2017 Patient Education: [...] control. 02/15/2017 Appointment: [facility] [phone] [phone] (15 min) Moderate 02/15/2017 Patient Education: [...] labs today 11/16/2016 Appointment: Gis[facility] Mccoy [facility]Ptel[phone] [place] (15 min) Moderate 11/16/2016 Patient [...] of control. 08/19/2016 Appointment: Giselle Mccoy WPtel: [phone] (15 min) Moderate 08/19/2016 Patient Education: Patient Medication Summary Completed 08/19/2016 Patient Education: Obesity Completed 08/19/2016 Care Plan: Tsh Cancelled 08/19/2016 Care Plan: %Hba1C LOINC : 27758-5 Cancelled 08/19/2016 Care Plan: Lipid Cancelled 08/19/2016 Care Plan: Free T4 patient coming back next week Cancelled 08/19/2016 Appointment: Injection 07/29/2016 Patient Education: Patient Medication Summary Completed 07/29/2016 Appointment: Giselle Mccoy WPtel: [phone] [place] [address] (30 min) Complex 07/22/2016 Visit Plan: Diabetes-having hypoglycemia in the mornings-insulin adjusted-patient and verbalized understanding of plan. Follow up in 1 month-call sooner if still having low blood sugars. Sinus congestion-start claritin 07/15/2016 Appointment: Giselle Mccoy WPtel: [phone] (30 min) Complex 07/15/2016 Patient [...] control. 06/03/2016 Appointment: [phone] [place] (15 min) Moderate [...] 1 MONTH 04/22/2016 Appointment: Giselle Mccoy WPtel: [phone] (15 min) Moderate 04/22/2016 Patient Education: [...] and flush ears if needed. 01/02/2015 Appointment: [facility]Jennifer [phone] [facility] [place] (S[facility] New Patient [...] to Dr Pike/Dr Lozada for evaluation-recommend PT EAT A PROTEIN SNACK BEFORE BED CHECK [...] to allow for greater blood glucose control. compression stockings . Varicose veins-rx for [...]
--- OUTSIDE RECORDS SUMMARY | 2019-01-23 08:52 | XMS REPORT | CCD ---
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 Name Role Phone PP Unavailable CCM Unavailable Summary Purpose Interface Exchange Insurance Providers Payer name Policy type / Coverage type Covered republican ID Effective Begin Date Effective End Date [facility] Commercial Insurance [id number] Unknown Family history Runs in the family [...] Fill Instructions terazosin 2 mg capsule RxNorm: 653159 Capsule(s) TAKE ONE CAPSULE BY MOUTH DAILY 09/06/2018 08/31/2019 Active Contour Test Strips RxNorm: TEST BLOOD SUGAR TWO TIMES A DAY E11.65 08/30/2018 03/01/2020 Active Lantus Solostar U-100 Insulin 100 unit/mL (3 mL) subcutaneous pen RxNorm: 534359 INJECT 35 UNITS UNDER THE SKIN EVERY NIGHT AT BEDTIME 08/22/2018 09/24/2020 Active carvedilol 12.5 mg tablet RxNorm: 135922 TAKE ONE TABLET BY MOUTH TWICE A DAY 08/07/2018 08/01/2019 Active Humulin 70/30 U-100 Insulin 100 unit/mL subcutaneous suspension RxNorm: 369862 Unit(s) INJECT 18 UNITS UNDER THE SKIN EVERY MORNING 06/20/2018 09/11/2018 Active Humulin 70/30 U-100 Insulin 100 unit/mL subcutaneous suspension RxNorm: 210632 INJECT 18 UNITS UNDER THE SKIN EVERY MORNING 06/20/2018 06/19/2018 Inactive terazosin 2 mg capsule RxNorm: 471255 TAKE ONE CAPSULE BY MOUTH DAILY 06/09/2018 09/05/2018 Inactive Humulin 70/30 U-100 Insulin 100 unit/mL subcutaneous suspension RxNorm: 584717 18 Unit(s) SQ QAM 05/15/2018 06/19/2018 Inactive levothyroxine 100 mcg tablet RxNorm: 677803 1 Tablet(s) PO daily 05/11/2018 09/07/2018 Active carvedilol 12.5 mg tablet RxNorm: 588612 TAKE ONE TABLET BY MOUTH TWICE A DAY 05/05/2018 08/06/2018 Inactive losartan 100 mg tablet RxNorm: 468939 TAKE ONE TABLET BY MOUTH DAILY 03/24/2018 06/10/2020 Active terazosin 2 mg capsule RxNorm: 639596 TAKE ONE CAPSULE BY MOUTH DAILY 03/07/2018 06/08/2018 Inactive cyanocobalamin (vit B-12) 1,000 mcg/mL injection solution RxNorm: 714066 1 Milliliter(s) Inj 01/12/2018 01/12/2018 Inactive Lantus Solostar U-100 Insulin 100 unit/mL (3 mL) subcutaneous pen RxNorm: 814459 Unit(s) INJECT 24 UNITS UNDER THE SKIN EVERY NIGHT AT BEDTIME 01/12/2018 08/21/2018 Inactive Humulin 70/30 U-100 Insulin 100 unit/mL subcutaneous suspension RxNorm: 475841 INJECT 18 UNITS UNDER THE SKIN EVERY MORNING 11/14/2017 03/05/2018 Inactive carvedilol 12.5 mg tablet RxNorm: 456501 TAKE ONE TABLET BY MOUTH TWICE A DAY 11/07/2017 05/04/2018 Inactive cyanocobalamin (vit B-12) 1,000 mcg/mL injection solution RxNorm: 155788 Milliliter(s) Inj 09/15/2017 09/15/2017 Inactive terazosin 2 mg capsule RxNorm: 957519 Capsule(s) TAKE ONE CAPSULE BY MOUTH DAILY 09/07/2017 03/05/2018 Inactive Lantus Solostar 100 unit/mL (3 mL) subcutaneous insulin pen RxNorm: 051981 INJECT 35 UNITS UNDER THE SKIN EVERY NIGHT AT BEDTIME 08/29/2017 01/11/2018 Inactive One Touch Test strips RxNorm: 1 test Miscellaneous BID 08/22/2017 08/16/2018 Inactive Contour Test Strips RxNorm: TEST BLOOD SUGAR TWO TIMES A DAY E11.65 08/22/2017 08/29/2018 Inactive Tamiflu 75 mg capsule RxNorm: 764507 1 Capsule(s) PO daily 08/17/2017 08/16/2017 Inactive Tamiflu 75 mg capsule RxNorm: 232746 1 Capsule(s) PO daily 08/17/2017 08/26/2017 Inactive cyanocobalamin (vit B-12) 1,000 mcg/mL injection solution RxNorm: 319513 1 Milliliter(s) Inj 08/17/2017 08/17/2017 Inactive carvedilol 12.5 mg tablet RxNorm: 577982 TAKE ONE TABLET BY MOUTH TWICE A DAY 08/10/2017 11/06/2017 Inactive cyanocobalamin (vit B-12) 1,000 mcg/mL injection solution RxNorm: 909139 1 Milliliter(s) Inj 07/19/2017 07/19/2017 Inactive Humulin 70/30 100 unit/mL subcutaneous suspension RxNorm: 608894 14 Unit(s) SQ QAM 07/06/2017 05/14/2018 Inactive Lantus Solostar 100 unit/mL (3 mL) subcutaneous insulin pen RxNorm: 381641 26 Unit(s) SQ QHS 07/06/2017 08/28/2017 Inactive losartan 100 mg tablet RxNorm: 303234 TAKE ONE TABLET BY MOUTH DAILY 06/07/2017 03/23/2018 Inactive Lantus Solostar 100 unit/mL (3 mL) subcutaneous insulin pen RxNorm: 455887 28 Unit(s) SQ QHS 05/19/2017 07/05/2017 Inactive cyanocobalamin (vit B-12) 1,000 mcg/mL injection solution RxNorm: 354645 1 Milliliter(s) Inj 05/19/2017 05/19/2017 Inactive terazosin 2 mg capsule RxNorm: 745558 TAKE ONE CAPSULE BY MOUTH DAILY 05/16/2017 09/06/2017 Inactive cyanocobalamin (vit B-12) 1,000 mcg/mL injection solution RxNorm: 332460 1 Milliliter(s) Inj 04/06/2017 04/06/2017 Inactive cyanocobalamin (vit B-12) 1,000 mcg/mL injection solution RxNorm: 502671 Milliliter(s) Inj 01/04/2017 01/04/2017 Inactive Humulin 70/30 U-100 Insulin 100 unit/mL subcutaneous suspension RxNorm: 673207 18 Unit(s) SQ QAM 12/22/2016 06/04/2017 Inactive cyanocobalamin (vit B-12) 1,000 mcg/mL injection solution RxNorm: 361229 1 Milliliter(s) Inj 12/10/2016 12/10/2016 Inactive Zithromax Z-Jose 250 mg tablet RxNorm: 527490 1 Tablet(s) PO UD 11/16/2016 11/20/2016 Inactive terazosin 2 mg capsule RxNorm: 695909 TAKE ONE CAPSULE BY MOUTH DAILY 11/08/2016 05/06/2017 Inactive Lantus Solostar 100 unit/mL (3 mL) subcutaneous insulin pen RxNorm: 443618 INJECT 35 UNITS UNDER THE SKIN EVERY NIGHT AT BEDTIME 10/22/2016 07/18/2017 Inactive cyanocobalamin (vit B-12) 1,000 mcg/mL injection solution RxNorm: 449188 Milliliter(s) Inj 10/13/2016 10/13/2016 Inactive cyanocobalamin (vit B-12) 1,000 mcg/mL injection solution RxNorm: 931577 1 Milliliter(s) Inj 09/03/2016 09/03/2016 Inactive Contour Test Strips RxNorm: TEST BLOOD SUGAR TWO TIMES A DAY E11.65 08/19/2016 08/21/2017 Inactive carvedilol 12.5 mg tablet RxNorm: 19990924 TAKE ONE TABLET BY MOUTH TWICE A DAY 08/05/2016 01/01/2017 Inactive carvedilol 12.5 mg tablet RxNorm: 19990924 TAKE ONE TABLET BY MOUTH TWICE A DAY 08/05/2016 01/01/2017 Inactive carvedilol 12.5 mg tablet RxNorm: 19990924 1 Tablet(s) PO BID 08/04/2016 01/30/2017 Inactive cyanocobalamin (vit B-12) 1,000 mcg/mL injection solution RxNorm: 077373 Milliliter(s) Inj 07/29/2016 07/29/2016 Inactive Lantus Solostar 100 unit/mL (3 mL) subcutaneous insulin pen RxNorm: 945272 30 Unit(s) SQ QHS 07/15/2016 05/18/2017 Inactive Humulin 70/30 100 unit/mL subcutaneous suspension RxNorm: 866588 18 Unit(s) SQ QAM 07/15/2016 12/21/2016 Inactive losartan 100 mg tablet RxNorm: 620400 TAKE ONE TABLET BY MOUTH DAILY 07/08/2016 06/02/2017 Inactive terazosin 2 mg capsule RxNorm: 893927 TAKE ONE CAPSULE BY MOUTH DAILY 06/10/2016 11/06/2016 Inactive cyanocobalamin (vit B-12) 1,000 mcg/mL injection solution RxNorm: 800732 1 Milliliter(s) Inj 06/03/2016 06/03/2016 Inactive Humulin 70/30 100 unit/mL subcutaneous suspension RxNorm: 947644 Unit(s) INJECT 10 UNITS UNDER THE SKIN 06/01/2016 07/14/2016 Inactive Request already responded to by other means (e.g. phone or fax) Humulin 70/30 100 unit/mL subcutaneous suspension RxNorm: 254983 INJECT 10 UNITS UNDER THE SKIN BEFORE MEALS 06/01/2016 05/31/2016 Inactive Request already responded to by other means (e.g. phone or fax) Lantus Solostar 100 unit/mL (3 mL) subcutaneous insulin pen RxNorm: 559797 35 Unit(s) SQ QHS 05/26/2016 07/14/2016 Inactive Humulin 70/30 100 unit/mL subcutaneous suspension RxNorm: 615311 10 Unit(s) SQ QA 05/24/2016 10/02/2016 Inactive Humulin 70/30 100 unit/mL subcutaneous suspension RxNorm: 166776 21 Unit(s) SQ QAM 05/24/2016 05/23/2016 Inactive Lantus Solostar 100 unit/mL (3 mL) subcutaneous insulin pen RxNorm: 546410 32 Unit(s) SQ QHS 04/22/2016 05/25/2016 Inactive Humulin 70/30 100 unit/mL subcutaneous suspension RxNorm: 263310 21 Unit(s) SQ QA 04/22/2016 05/24/2016 Inactive with breakfast hydrochlorothiazide 25 mg tablet RxNorm: 782007 TAKE ONE TABLET BY MOUTH DAILY 02/04/2016 02/16/2016 Inactive terazosin 2 mg capsule RxNorm: 461404 Capsule(s) TAKE ONE CAPSULE BY MOUTH DAILY. 12/01/2015 05/28/2016 Inactive Humulin 70/30 100 unit/mL subcutaneous suspension RxNorm: 786568 INJECT 10 UNITS UNDER THE SKIN BEFORE MEALS 11/06/2015 03/16/2016 Inactive hydrochlorothiazide 25 mg tablet RxNorm: 883607 1 Tablet(s) PO daily 10/06/2015 02/02/2016 Inactive cyanocobalamin (vit B-12) 1,000 mcg/mL injection solution RxNorm: 111824 Milliliter(s) Inj 09/15/2015 09/15/2015 Inactive Humulin 70/30 100 unit/mL subcutaneous suspension RxNorm: 230560 INJECT 10 UNITS UNDER THE SKIN BEFORE MEALS 09/08/2015 10/10/2015 Inactive cyanocobalamin (vit B-12) 1,000 mcg/mL injection solution RxNorm: 379315 Milliliter(s) Inj 09/08/2015 09/08/2015 Inactive terazosin 2 mg capsule RxNorm: 546700 TAKE ONE CAPSULE BY MOUTH DAILY. DISCONTINUE 5 MG CAPSULES 09/01/2015 11/29/2015 Inactive cyanocobalamin (vit B-12) 1,000 mcg/mL injection solution RxNorm: 723044 Milliliter(s) Inj 09/01/2015 09/01/2015 Inactive cyanocobalamin (vit B-12) 1,000 mcg/mL injection solution RxNorm: 937474 Milliliter(s) Inj 08/25/2015 08/25/2015 Inactive levothyroxine 112 mcg tablet RxNorm: 344435 1 Tablet(s) PO daily 08/06/2015 02/14/2017 Inactive Lantus Solostar 100 unit/mL (3 mL) subcutaneous insulin pen RxNorm: 823366 35 Unit(s) SQ QHS 08/06/2015 04/21/2016 Inactive Humulin 70/30 100 unit/mL subcutaneous suspension RxNorm: 789895 20 Unit(s) SQ AC 08/05/2015 04/21/2016 Inactive with breakfast carvedilol 12.5 mg tablet RxNorm: 941140 1 Tablet(s) PO BID 08/05/2015 01/31/2016 Inactive Humulin 70/30 100 unit/mL subcutaneous suspension RxNorm: 176293 10 Unit(s) SQ AC 07/22/2015 08/04/2015 Inactive losartan 100 mg tablet RxNorm: 434548 TAKE ONE TABLET BY MOUTH DAILY 06/25/2015 06/18/2016 Inactive Lantus Solostar 100 unit/mL (3 mL) subcutaneous insulin pen RxNorm: 860742 30 Unit(s) SQ QHS 06/18/2015 08/05/2015 Inactive terazosin 2 mg capsule RxNorm: 905503 1 Capsule(s) PO daily 04/14/2015 08/11/2015 Inactive DC the 5mg order terazosin 2 mg capsule RxNorm: 965801 1 Capsule(s) PO daily 04/14/2015 04/13/2015 Inactive Synthroid 25 mcg tablet RxNorm: 420311 1 Tablet(s) PO daily 04/11/2015 02/14/2017 Inactive Synthroid 25 mcg tablet RxNorm: 042071 1 Tablet(s) PO daily 04/11/2015 04/10/2015 Inactive Lantus Solostar 100 unit/mL (3 mL) subcutaneous insulin pen RxNorm: 218877 30 Unit(s) SQ QHS 04/04/2015 06/17/2015 Inactive terazosin 5 mg tablet RxNorm: 346621 1 Tablet(s) PO daily 04/03/2015 04/13/2015 Inactive Lantus Solostar 100 unit/mL (3 mL) subcutaneous insulin pen RxNorm: 909739 25 Unit(s) SQ QHS 01/08/2015 04/03/2015 Inactive carvedilol 25 mg tablet RxNorm: 246365 1 Tablet(s) PO BID 01/02/2015 01/31/2015 Inactive terazosin 5 mg tablet RxNorm: 373729 1 Tablet(s) PO daily 01/02/2015 01/01/2015 Inactive levothyroxine 125 mcg tablet RxNorm: 875608 1 Tablet(s) PO daily 01/02/2015 01/31/2015 Inactive terazosin 5 mg tablet RxNorm: 067850 1/2 Tablet(s) PO daily 01/02/2015 01/31/2015 Inactive losartan 100 mg tablet RxNorm: 422697 1 Tablet(s) PO daily 12/24/2014 04/22/2015 Inactive losartan 100 mg tablet RxNorm: 763589 1 Tablet(s) PO daily 12/24/2014 12/23/2014 Inactive Contour Test Strips RxNorm: Miscellaneous test blood sugars BID 12/06/2014 12/05/2014 Inactive dx 250.00 Contour Test Strips RxNorm: Miscellaneous test blood sugars BID or UD 12/06/2014 06/23/2015 Inactive dx 250.00 [SAVINGS FOR NON-COVERED DRUGS -- BIN:[id number], PCN: [id number], Group: [id number], ID# [id number], Questions: . THIS IS NOT INSURANCE.] folic acid 1 mg tablet RxNorm: 750182 1 Tablet(s) PO QHS No Start Date Active Microlet Lancet RxNorm: Miscellaneous Test BID or Ud No Start Date Active 250.0 aspirin 81 mg tablet,delayed release RxNorm: 272366 1 Tablet(s) PO daily No Start Date Active Stool Softener 100 mg capsule RxNorm: 2793263 1 Capsule(s) PO every other day No Start Date Active folic acid oral RxNorm: 4511 oral No Start Date 05/19/2017 Inactive cyanocobalamin (vit B-12) 100 mcg tablet RxNorm: 733804 1 Tablet(s) PO daily No Start Date 02/14/2017 Inactive hydrochlorothiazide 25 mg tablet RxNorm: 096905 1 Tablet(s) PO daily No Start Date 10/05/2015 Inactive Stool Softener 100 mg capsule RxNorm: 7964933 1 Capsule(s) PO daily No Start Date 05/18/2017 Inactive Humulin 70/30 100 unit/mL subcutaneous suspension RxNorm: 438107 20 Unit(s) SQ QAM No Start Date 07/21/2015 Inactive levothyroxine 100 mcg tablet RxNorm: 310578 1 Tablet(s) PO daily No Start Date 05/10/2018 Inactive Lantus Solostar 100 unit/mL (3 mL) subcutaneous insulin pen RxNorm: 395623 20 Unit(s) SQ QHS No Start Date 01/07/2015 Inactive ferrous sulfate 325 mg (65 mg iron) tablet RxNorm: 868571 1 Tablet(s) PO daily No Start Date 05/18/2017 Inactive Medication Administered Medication Codes Instructions Start Date Status cyanocobalamin (vit B-12) 1,000 mcg/mL injection solution RxNorm: 404857 1Milliliter 01/12/2018 No longer Active cyanocobalamin (vit B-12) 1,000 mcg/mL injection solution RxNorm: 627931 Milliliter 09/15/2017 No longer Active cyanocobalamin (vit B-12) 1,000 mcg/mL injection solution RxNorm: 476660 1Milliliter 08/17/2017 No longer Active cyanocobalamin (vit B-12) 1,000 mcg/mL injection solution RxNorm: 499081 1Milliliter 07/19/2017 No longer Active cyanocobalamin (vit B-12) 1,000 mcg/mL injection solution RxNorm: 479178 1Milliliter 05/19/2017 No longer Active cyanocobalamin (vit B-12) 1,000 mcg/mL injection solution RxNorm: 172341 1Milliliter 04/06/2017 No longer Active cyanocobalamin (vit B-12) 1,000 mcg/mL injection solution RxNorm: 568295 Milliliter 01/04/2017 No longer Active cyanocobalamin (vit B-12) 1,000 mcg/mL injection solution RxNorm: 278564 1Milliliter 12/10/2016 No longer Active cyanocobalamin (vit B-12) 1,000 mcg/mL injection solution RxNorm: 624168 Milliliter 10/13/2016 No longer Active cyanocobalamin (vit B-12) 1,000 mcg/mL injection solution RxNorm: 368456 1Milliliter 09/03/2016 No longer Active cyanocobalamin (vit B-12) 1,000 mcg/mL injection solution RxNorm: 411202 Milliliter 07/29/2016 No longer Active cyanocobalamin (vit B-12) 1,000 mcg/mL injection solution RxNorm: 101705 1Milliliter 06/03/2016 No longer Active cyanocobalamin (vit B-12) 1,000 mcg/mL injection solution RxNorm: 287619 Milliliter 09/15/2015 No longer Active cyanocobalamin (vit B-12) 1,000 mcg/mL injection solution RxNorm: 526265 Milliliter 09/08/2015 No longer Active cyanocobalamin (vit B-12) 1,000 mcg/mL injection solution RxNorm: 627970 Milliliter 09/01/2015 No longer Active cyanocobalamin (vit B-12) 1,000 mcg/mL injection solution RxNorm: 000776 Milliliter 08/25/2015 No longer Active Immunizations Vaccine [...] Item Item Code Result Date Comp Metabolic Wcu579 NA 139 mEq/L 08/15/2018 Comp Metabolic Bqq312 K 4.0 mEq/L 08/15/2018 Comp Metabolic Rlj760 CL 107 mEq/L 08/15/2018 Comp Metabolic Omi713 CO2 25.0 mEq/L 08/15/2018 Comp Metabolic Goq942 ANION GAP 11 08/15/2018 Comp Metabolic Kbp850 GLUCOSE 142 mg/dL 08/15/2018 Comp Metabolic Yke850 Creat 0.9 mg/dL 08/15/2018 Comp Metabolic Mgy323 eGFR 64 ml/min/1.73m2 08/15/2018 Comp Metabolic Pcs109 BUN 22 mg/dL 08/15/2018 Comp Metabolic Nap256 B/C Ratio 24.4 Ratio 08/15/2018 Comp Metabolic Yuu754 CALCIUM 9.3 mg/dL 08/15/2018 Comp Metabolic Vcp773 ALK PHOS 83 U/L 08/15/2018 Comp Metabolic Zhc896 AST(SGOT) 35 U/L 08/15/2018 Comp Metabolic Bsx539 ALT(SGPT) 19 U/L 08/15/2018 Comp Metabolic Nln715 BILI T 0.6 mg/dL 08/15/2018 Comp Metabolic Owg579 ALBUMIN 3.7 g/dL 08/15/2018 Comp Metabolic Grg943 TPRO 6.3 g/dL 08/15/2018 Comp Metabolic Bdr974 GLOB 2.6 g/dL 08/15/2018 Comp Metabolic Pih049 A/G Ratio 1.5 Ratio 08/15/2018 Comp Metabolic Ngb968 Osmo 283 mOsmo 08/15/2018 %Hba1C Nkf179 % HbA1c 55455- 6 7.4 % 08/15/2018 %Hba1C Twi673 Gluc Ave 166 mg/dL 08/15/2018 Tsh Ord6 TSH (3rd IS) 2.43 uIU/mL 08/15/2018 Cbc With Differential Ord2 WBC 6.42 K/ul 08/15/2018 Cbc With Differential Ord2 RBC 4.09 M/ul 08/15/2018 Cbc With Differential Ord2 HGB 12.0 g/dl 08/15/2018 Cbc With Differential Ord2 HCT 37.7 % 08/15/2018 Cbc With Differential Ord2 Neut% 44.3 % 08/15/2018 Cbc With Differential Ord2 MCV 92.2 fl 08/15/2018 Cbc With Differential Ord2 Lymph% 41.4 % 08/15/2018 Cbc With Differential Ord2 Archer% 10.9 % 08/15/2018 Cbc With Differential Ord2 MCH 29.3 pg 08/15/2018 Cbc With Differential Ord2 Eos% 3.1 % 08/15/2018 Cbc With Differential Ord2 MCHC 31.8 pg 08/15/2018 Cbc With Differential Ord2 Baso% 0.3 % 08/15/2018 Cbc With Differential Ord2 PLT 209 K/ul 08/15/2018 Cbc With Differential Ord2 Neut ABS# 2.84 K/ul 08/15/2018 Cbc With Differential Ord2 RDW 14.5 % 08/15/2018 Cbc With Differential Ord2 Lymph ABS# 2.66 K/ul 08/15/2018 Cbc With Differential Ord2 Archer ABS# 0.7 K/ul 08/15/2018 Cbc With Differential Ord2 Eos ABS# 0.2 K/ul 08/15/2018 Cbc With Differential Ord2 Baso ABS# 0.0 K/ul 08/15/2018 %Hba1C Liv859 % HbA1c 38466- 6 7.8 % 05/15/2018 %Hba1C Uab630 Gluc Ave 177 mg/dL 05/15/2018 Comp Metabolic Xys937 NA 142 mEq/L 05/15/2018 Comp Metabolic Sjw264 K 4.0 mEq/L 05/15/2018 Comp Metabolic Ykm068 CL 107 mEq/L 05/15/2018 Comp Metabolic Dff212 CO2 28.0 mEq/L 05/15/2018 Comp Metabolic Nyx917 ANION GAP 11 05/15/2018 Comp Metabolic Ivj989 GLUCOSE 211 mg/dL 05/15/2018 Comp Metabolic Avu570 Creat 0.9 mg/dL 05/15/2018 Comp Metabolic Lyc895 eGFR 61 ml/min/1.73m2 05/15/2018 Comp Metabolic Qli662 BUN 21 mg/dL 05/15/2018 Comp Metabolic Zzj925 B/C Ratio 22.6 Ratio 05/15/2018 Comp Metabolic Gbd384 CALCIUM 9.1 mg/dL 05/15/2018 Comp Metabolic Dot376 ALK PHOS 85 U/L 05/15/2018 Comp Metabolic Msh232 AST(SGOT) 36 U/L 05/15/2018 Comp Metabolic Dmj194 ALT(SGPT) 19 U/L 05/15/2018 Comp Metabolic Vep936 BILI T 0.6 mg/dL 05/15/2018 Comp Metabolic Avx897 ALBUMIN 3.8 g/dL 05/15/2018 Comp Metabolic Xhx207 TPRO 6.2 g/dL 05/15/2018 Comp Metabolic Bqh206 GLOB 2.4 g/dL 05/15/2018 Comp Metabolic Gyd130 A/G Ratio 1.6 Ratio 05/15/2018 Comp Metabolic Noy921 Osmo 292 mOsmo 05/15/2018 Tsh Ord6 TSH (3rd IS) 0.97 uIU/mL 05/15/2018 Free T4 Zoh915 FREE T4 1.21 ng/dL 05/15/2018 Comp Metabolic Eqd448 NA 139 mEq/L 11/28/2017 Comp Metabolic Iul216 K 4.1 mEq/L 11/28/2017 Comp Metabolic Ijv993 CL 105 mEq/L 11/28/2017 Comp Metabolic Qjl750 CO2 26.0 mEq/L 11/28/2017 Comp Metabolic Rsa448 ANION GAP 12 11/28/2017 Comp Metabolic Kew435 GLUCOSE 132 mg/dL 11/28/2017 Comp Metabolic Kmv813 Creat 0.9 mg/dL 11/28/2017 Comp Metabolic Rrm411 eGFR 66 ml/min/1.73m2 11/28/2017 Comp Metabolic Mps134 BUN 17 mg/dL 11/28/2017 Comp Metabolic Dpt066 B/C Ratio 19.5 Ratio 11/28/2017 Comp Metabolic Enf952 CALCIUM 9.1 mg/dL 11/28/2017 Comp Metabolic Ehs342 ALK PHOS 78 U/L 11/28/2017 Comp Metabolic Xfd455 AST(SGOT) 35 U/L 11/28/2017 Comp Metabolic Pbg586 ALT(SGPT) 17 U/L 11/28/2017 Comp Metabolic Jyq463 BILI T 0.6 mg/dL 11/28/2017 Comp Metabolic Tdw675 ALBUMIN 3.9 g/dL 11/28/2017 Comp Metabolic Cbg594 TPRO 6.4 g/dL 11/28/2017 Comp Metabolic Idu487 GLOB 2.5 g/dL 11/28/2017 Comp Metabolic Rfl088 A/G Ratio 1.6 Ratio 11/28/2017 Comp Metabolic Vag141 Osmo 281 mOsmo 11/28/2017 Free T4 Xrb957 FREE T4 1.05 ng/dL 11/28/2017 Tsh Ord6 TSH (3rd IS) 1.14 uIU/mL 11/28/2017 %Hba1C Csq775 % HbA1c 39392- 6 7.7 % 11/25/2017 %Hba1C Sav085 Gluc Ave 174 mg/dL 11/25/2017 Cbc With [...] 29.8 pg 11/25/2017 Cbc With Differential Ord2 Archer% 10.2 % 11/25/2017 Cbc With Differential Ord2 [...] 2.56 K/ul 11/25/2017 Cbc With Differential Ord2 Archer ABS# 0.7 K/ul 11/25/2017 Cbc With Differential Ord2 Eos ABS# 0.2 K/ul 11/25/2017 Cbc With Differential Ord2 Baso ABS# 0.0 K/ul 11/25/2017 B12 Pas648 B12 >1500.00 pg/ml 05/19/2017 Free T4 Uov811 FREE T4 1.10 ng/dL 05/19/2017 %Hba1C Jos908 % HbA1c 64305- 6 6.8 % 05/19/2017 %Hba1C Iib816 Gluc Ave 148 mg/dL 05/19/2017 Comp Metabolic Rqe902 NA 140 mEq/L 05/19/2017 Comp Metabolic Ize853 K 3.8 mEq/L 05/19/2017 Comp Metabolic Tuo610 CL 108 mEq/L 05/19/2017 Comp Metabolic Ehk696 CO2 21.0 mEq/L 05/19/2017 Comp Metabolic Msr064 ANION GAP 15 05/19/2017 Comp Metabolic Rqh017 GLUCOSE 207 mg/dL 05/19/2017 Comp Metabolic Ict431 Creat 1.0 mg/dL 05/19/2017 Comp Metabolic Elz240 eGFR 55 ml/min/1.73m2 05/19/2017 Comp Metabolic Zss792 BUN 21 mg/dL 05/19/2017 Comp Metabolic Gnt503 B/C Ratio 20.4 Ratio 05/19/2017 Comp Metabolic Iqr261 CALCIUM 9.1 mg/dL 05/19/2017 Comp Metabolic Kyg898 ALK PHOS 74 U/L 05/19/2017 Comp Metabolic Ilk513 AST(SGOT) 32 U/L 05/19/2017 Comp Metabolic Bpw229 ALT(SGPT) 15 U/L 05/19/2017 Comp Metabolic Shl922 BILI T 0.6 mg/dL 05/19/2017 Comp Metabolic Hfw780 ALBUMIN 3.9 g/dL 05/19/2017 Comp Metabolic Nfc754 TPRO 6.2 g/dL 05/19/2017 Comp Metabolic Xtc257 GLOB 2.3 g/dL 05/19/2017 Comp Metabolic Amf062 A/G Ratio 1.6 Ratio 05/19/2017 Comp Metabolic Ejt174 Osmo 288 mOsmo 05/19/2017 Tsh Ord6 hTSH II 1.73 uIU/mL 05/19/2017 Cbc With Differential Ord2 WBC 8.04 [...] 30.3 pg 05/19/2017 Cbc With Differential Ord2 Archer% 6.8 % 05/19/2017 Cbc With Differential Ord2 [...] 1.64 K/ul 05/19/2017 Cbc With Differential Ord2 Archer ABS# 0.6 K/ul 05/19/2017 Cbc With Differential Ord2 Eos ABS# 0.2 K/ul 05/19/2017 Cbc With Differential Ord2 Baso ABS# 0.0 K/ul 05/19/2017 B12 Qbw098 B12 222.00 pg/ml 12/10/2016 Cbc With Differential [...] 29.3 pg 12/10/2016 Cbc With Differential Ord2 Archer% 7.1 % 12/10/2016 Cbc With Differential Ord2 [...] 2.50 K/ul 12/10/2016 Cbc With Differential Ord2 Archer ABS# 0.5 K/ul 12/10/2016 Cbc With Differential Ord2 Eos ABS# 0.1 K/ul 12/10/2016 Cbc With Differential Ord2 Baso ABS# 0.0 K/ul 12/10/2016 Tsh Ord6 hTSH II 2.50 uIU/mL 11/16/2016 %Hba1C Yqi855 % HbA1c 03348- 6 7.5 % 11/16/2016 %Hba1C Ayt482 Gluc Ave 169 mg/dL 11/16/2016 Free T4 Hsf245 FREE T4 1.03 ng/dL 11/16/2016 Comp Metabolic Uis798 NA 138 mEq/L 11/16/2016 Comp Metabolic Tto182 K 3.8 mEq/L 11/16/2016 Comp Metabolic Aeo595 CL 103 mEq/L 11/16/2016 Comp Metabolic Ijj744 CO2 26.0 mEq/L 11/16/2016 Comp Metabolic Hmk025 ANION GAP 13 11/16/2016 Comp Metabolic Fiw720 GLUCOSE 235 mg/dL 11/16/2016 Comp Metabolic Yds503 Creat 0.9 mg/dL 11/16/2016 Comp Metabolic Czg704 eGFR 62 ml/min/1.73m2 11/16/2016 Comp Metabolic Jrq139 BUN 20 mg/dL 11/16/2016 Comp Metabolic Lgh571 B/C Ratio 21.7 Ratio 11/16/2016 Comp Metabolic Aph313 CALCIUM 8.9 mg/dL 11/16/2016 Comp Metabolic Zul976 ALK PHOS 75 U/L 11/16/2016 Comp Metabolic Eru915 AST(SGOT) 30 U/L 11/16/2016 Comp Metabolic Ahx561 ALT(SGPT) 13 U/L 11/16/2016 Comp Metabolic Leg364 BILI T 0.6 mg/dL 11/16/2016 Comp Metabolic Myk336 ALBUMIN 3.8 g/dL 11/16/2016 Comp Metabolic Tbo187 TPRO 6.8 g/dL 11/16/2016 Comp Metabolic Cot240 GLOB 3.1 g/dL 11/16/2016 Comp Metabolic Uau455 A/G Ratio 1.2 Ratio 11/16/2016 Comp Metabolic Bde596 Osmo 286 mOsmo 11/16/2016 Folate Ord36 Folate >23.80 ng/mL 05/21/2016 Free T4 Rpt156 FREE T4 1.03 ng/dL 05/21/2016 Tsh Ord6 hTSH II 3.18 uIU/mL 05/21/2016 Lipid Ord30 CHOL 212 mg/dL 05/21/2016 Lipid Ord30 HDL 43.0 mg/dl 05/21/2016 Lipid Ord30 TRIG 164 mg/dL 05/21/2016 Lipid Ord30 LDL 136 mg/dL 05/21/2016 Lipid Ord30 C/HDL 4.9 Ratio 05/21/2016 B12 Rid409 B12 159.00 pg/ml 05/21/2016 %Hba1C Urs590 % HbA1c 18005- 6 7.5 % 05/21/2016 %Hba1C Gcu037 Gluc Ave 169 mg/dL 05/21/2016 CHEM 14 8133577 AST 33 U/L 03/15/2016 CHEM 14 3225471 ALT 13 U/L 03/15/2016 CHEM 14 2998336 BUN 18 mg/dL 03/15/2016 CHEM 14 8829342 ALBUMIN 3.9 g/dL 03/15/2016 CHEM 14 4247547 CHLORIDE 105 mmol/L 03/15/2016 CHEM 14 4430709 Bili Total 0.4 mg/dL 03/15/2016 CHEM 14 1399918 ALK PHOS 60 U/L 03/15/2016 CHEM 14 4330850 SODIUM 138 mmol/L 03/15/2016 CHEM 14 2867957 CREATININE 0.99 mg/dL 03/15/2016 CHEM 14 5819356 CALCIUM 9.4 mg/dL 03/15/2016 CHEM 14 6956030 POTASSIUM 3.8 mmol/L 03/15/2016 CHEM 14 1172881 TOTAL PROTEIN 6.7 g/dL 03/15/2016 CHEM 14 1136022 GLUCOSE 109 mg/dL 03/15/2016 CHEM 14 2934530 Bicarbonate 27 mmol/L 03/15/2016 CHEM 14 4701286 AGAP 6 mmol/L 03/15/2016 GFR CALC 4804091 GFR Non Afr Amr 54 mL/min 03/15/2016 GFR CALC 2988900 GFR Afr Amr >60 mL/min 03/15/2016 B12 Lhc558 B12 46.00 pg/ml 08/07/2015 Iron Ord72 Iron [...] With Differential Ord2 RDW 16.6 % 08/05/2015 Comp Metabolic Gtw952 NA 137 mEq/L 08/05/2015 Comp Metabolic Zwq604 K 4.5 mEq/L 08/05/2015 Comp Metabolic Opa880 CL 104 mEq/L 08/05/2015 Comp Metabolic Mcw219 CO2 26.0 mEq/L 08/05/2015 Comp Metabolic Amw378 ANION GAP 12 08/05/2015 Comp Metabolic Jrw273 GLUCOSE 146 mg/dL 08/05/2015 Comp Metabolic Idm943 Creat 1.0 mg/dL 08/05/2015 Comp Metabolic Yjx536 eGFR 56 ml/min/1.73m2 08/05/2015 Comp Metabolic Vkf879 BUN 23 mg/dL 08/05/2015 Comp Metabolic Nso993 B/C Ratio 22.8 Ratio 08/05/2015 Comp Metabolic Zmd872 CALCIUM 9.3 mg/dL 08/05/2015 Comp Metabolic Bph393 ALK PHOS 71 U/L 08/05/2015 Comp Metabolic Zia260 AST(SGOT) 33 U/L 08/05/2015 Comp Metabolic Qbu462 ALT(SGPT) 15 U/L 08/05/2015 Comp Metabolic Sly412 BILI T 0.6 mg/dL 08/05/2015 Comp Metabolic Zni532 ALBUMIN 3.9 g/dL 08/05/2015 Comp Metabolic Rgv596 TPRO 6.5 g/dL 08/05/2015 Comp Metabolic Uln257 GLOB 2.6 g/dL 08/05/2015 Comp Metabolic Yhk188 A/G Ratio 1.5 Ratio 08/05/2015 Comp Metabolic Nja903 Osmo 280 mOsmo 08/05/2015 Free T4 Wti760 FREE T4 1.33 ng/dL 08/05/2015 Tsh Ord6 hTSH II 0.36 uIU/mL 08/05/2015 %Hba1C Tri077 % HbA1c 97843- 6 8.1 % 08/05/2015 %Hba1C Sgc164 Gluc Ave 186 mg/dL 08/05/2015 Free T4 Hxa939 FREE T4 0.91 ng/dL 04/11/2015 %Hba1C Ily904 % HbA1c 61922- 6 8.3 % 04/10/2015 %Hba1C Gta161 Gluc Ave 192 mg/dL 04/10/2015 Tsh Ord6 hTSH II 6.71 uIU/mL 04/10/2015 Comp Metabolic Jse670 NA 134 mEq/L 04/10/2015 Comp Metabolic Etj064 K 4.1 mEq/L 04/10/2015 Comp Metabolic Cpm654 CL 105 mEq/L 04/10/2015 Comp Metabolic Uuo963 CO2 26.0 mEq/L 04/10/2015 Comp Metabolic Rcz419 ANION GAP 7 04/10/2015 Comp Metabolic Hpt820 GLUCOSE 126 mg/dL 04/10/2015 Comp Metabolic Bxd760 Creat 1.0 mg/dL 04/10/2015 Comp Metabolic Xlx660 eGFR 58 ml/min/1.73m2 04/10/2015 Comp Metabolic Yiu417 BUN 29 mg/dL 04/10/2015 Comp Metabolic Lzu905 B/C Ratio 29.6 Ratio 04/10/2015 Comp Metabolic Uij442 CALCIUM 9.3 mg/dL 04/10/2015 Comp Metabolic Csd357 ALK PHOS 63 U/L 04/10/2015 Comp Metabolic Rmy594 AST(SGOT) 31 U/L 04/10/2015 Comp Metabolic Vap876 ALT(SGPT) 14 U/L 04/10/2015 Comp Metabolic Ebb543 BILI T 0.6 mg/dL 04/10/2015 Comp Metabolic Art502 ALBUMIN 3.9 g/dL 04/10/2015 Comp Metabolic Zbn331 TPRO 6.3 g/dL 04/10/2015 Comp Metabolic Tpz873 GLOB 2.4 g/dL 04/10/2015 Comp Metabolic Inh909 A/G Ratio 1.6 Ratio 04/10/2015 Comp Metabolic Jeb086 Osmo 276 mOsmo 04/10/2015 Cbc With Differential [...] Date GLUC MONITOR CONT PHYS I&R CPT-4: 82691 06/05/2018 GLUCOSE MONITORING CONT CPT-4: 26043 05/22/2018 THER/PROPH/DIAG INJ SC/IM CPT-4: 23962 01/12/2018 VITAMIN B12 INJECTION CPT- 4: J3420 01/12/2018 THER/PROPH/DIAG INJ SC/IM CPT-4: 88359 09/15/2017 VITAMIN B12 INJECTION CPT- 4: J3420 09/15/2017 THER/PROPH/DIAG INJ SC/IM CPT-4: 69207 08/17/2017 VITAMIN B12 INJECTION CPT- 4: J3420 08/17/2017 THER/PROPH/DIAG INJ SC/IM CPT-4: 01583 07/19/2017 VITAMIN B12 INJECTION CPT- 4: J3420 07/19/2017 THER/PROPH/DIAG INJ SC/IM CPT-4: 81128 05/19/2017 VITAMIN B12 INJECTION CPT- 4: J3420 05/19/2017 THER/PROPH/DIAG INJ SC/IM CPT-4: 49530 04/06/2017 VITAMIN B12 INJECTION CPT- 4: J3420 04/06/2017 THER/PROPH/DIAG INJ SC/IM CPT-4: 69192 01/04/2017 VITAMIN B12 INJECTION CPT- 4: J3420 01/04/2017 THER/PROPH/DIAG INJ SC/IM CPT-4: 24465 12/10/2016 VITAMIN B12 INJECTION CPT- 4: J3420 12/10/2016 THER/PROPH/DIAG INJ SC/IM CPT-4: 66295 10/13/2016 TRIAMCINOLONE ACET INJ NOS CPT-4: J3301 10/13/2016 THER/PROPH/DIAG INJ SC/IM CPT-4: 85418 09/03/2016 VITAMIN B12 INJECTION CPT- 4: J3420 09/03/2016 THER/PROPH/DIAG INJ SC/IM CPT-4: 15931 07/29/2016 VITAMIN B12 INJECTION CPT- 4: J3420 07/29/2016 THER/PROPH/DIAG INJ SC/IM CPT-4: 83899 06/03/2016 VITAMIN B12 INJECTION CPT- 4: J3420 06/03/2016 PNEUMOCOCCAL VACC [address]: 12087024 CPT-4: 10473 04/22/2016 ADMIN PNEUMOCOCCAL VACCINE SNOMED CT: 26390709 CPT-4: G0009 04/22/2016 VITAMIN B12 INJECTION CPT- 4: J3420 09/15/2015 THER/PROPH/DIAG INJ SC/IM CPT-4: 10749 09/15/2015 THER/PROPH/DIAG INJ SC/IM CPT-4: 96470 09/08/2015 VITAMIN B12 INJECTION CPT- 4: J3420 09/08/2015 THER/PROPH/DIAG INJ SC/IM CPT-4: 21804 09/01/2015 VITAMIN B12 INJECTION CPT- 4: J3420 09/01/2015 THER/PROPH/DIAG INJ SC/IM CPT-4: 53633 08/25/2015 VITAMIN B12 INJECTION CPT- 4: J3420 08/25/2015 Vital Signs Date Vital 08/15/2018 Blood Pressure 1: 144/70 Code: 8480-6 BMI: 40.8 Code: 15382-2 Heart Rate 1: 83 bpm Height: 4'11" SpO2: 97% Weight: 202 lbs 06/05/2018 Blood Pressure 1: 132/70 Code: 8480-6 BMI: 41.6 Code: 41135-5 Heart Rate 1: 70 bpm Height: 4'11" SpO2: 96% Weight: 206 lbs 05/22/2018 Blood Pressure 1: 148/72 Code: 8480-6 BMI: 41.6 Code: 20915-5 Heart Rate 1: 82 bpm Height: 4'11" SpO2: 95% Weight: 206 lbs 05/15/2018 Blood Pressure 1: 140/80 Code: 8480-6 BMI: 41.6 Code: 87913-6 Heart Rate 1: 86 bpm Height: 4'11" SpO2: 92% Weight: 206 lbs 01/12/2018 Blood Pressure 1: 140/78 Code: 8480-6 BMI: 42.2 Code: 24536-2 Heart Rate 1: 73 bpm Height: 4'11" SpO2: 97% Weight: 209 lbs 11/25/2017 Blood Pressure 1: 140/68 Code: 8480-6 BMI: 42.2 Code: 02934-2 Heart Rate 1: 76 bpm Height: 4'11" SpO2: 94% Weight: 209 lbs 09/15/2017 Blood Pressure 1: 146/67 Code: 8480-6 BMI: 42.2 Code: 48416-9 Heart Rate 1: 69 bpm Height: 4'11" SpO2: 97% Weight: 209 lbs 08/17/2017 Blood Pressure 1: 144/70 Code: 8480-6 BMI: 41.8 Code: 22198-1 Heart Rate 1: 63 bpm Height: 4'11" SpO2: 97% Weight: 207 lbs 07/19/2017 Blood Pressure 1: 142/74 Code: 8480-6 BMI: 41.4 Code: 71290-6 Heart Rate 1: 71 bpm Height: 4'11" SpO2: 96% Weight: 205 lbs 05/19/2017 Blood Pressure 1: 148/76 Code: 8480-6 BMI: 42.8 Code: 42426-3 Heart Rate 1: 72 bpm Height: 4'11" SpO2: 94% Weight: 212 lbs 02/15/2017 Blood Pressure 1: 154/70 Code: 8480-6 BMI: 42.5 Code: 94206-5 Heart Rate 1: 68 bpm Height: 4'11" SpO2: 97% Weight: 210 lbs 8 oz 11/16/2016 Blood Pressure 1: 142/78 Code: 8480-6 BMI: 41.6 Code: 61794-8 Heart Rate 1: 68 bpm Height: 4'11" SpO2: 95% Temperature: 36.0 (C) / 96.8 (F) Weight: 206 lbs 08/19/2016 Blood Pressure 1: 120/74 Code: 8480-6 BMI: 41.6 Code: 47364-7 Heart Rate 1: 75 bpm Height: 4'11" SpO2: 95% Weight: 206 lbs 07/15/2016 Blood Pressure 1: 140/76 Code: 8480-6 BMI: 42.0 Code: 07317-0 Heart Rate 1: 76 bpm Height: 4'11" SpO2: 96% Weight: 208 lbs 06/03/2016 Blood Pressure 1: 130/78 Code: 8480-6 BMI: 42.8 Code: 42033-8 Heart Rate 1: 72 bpm Height: 4'11" SpO2: 98% Weight: 212 lbs 04/22/2016 Blood Pressure 1: 142/84 Code: 8480-6 BMI: 41.8 Code: 34289-0 Heart Rate 1: 86 bpm Height: 4'11" SpO2: 92% Weight: 207 lbs 01/22/2016 Blood Pressure 1: 162/64 Code: 8480-6 BMI: 41.2 Code: 18293-8 Heart Rate 1: 70 bpm Height: 4'11" SpO2: 97% Weight: 204 lbs 10/23/2015 Blood Pressure 1: 130/70 Code: 8480-6 BMI: 40.4 Code: 54079-6 Heart Rate 1: 72 bpm Height: 4'11" SpO2: 95% Weight: 200 lbs 09/12/2015 Blood Pressure 1: 142/62 Code: 8480-6 BMI: 39.4 Code: 14894-5 Heart Rate 1: 63 bpm Height: 4'11" SpO2: 96% Weight: 195 lbs 08/05/2015 Blood Pressure 1: 144/60 Code: 8480-6 BMI: 41.0 Code: 10387-3 Heart Rate 1: 92 bpm Height: 4'11" SpO2: 90% SpO2: 97% Weight: 203 lbs 04/03/2015 Blood Pressure 1: 142/68 Code: 8480-6 BMI: 40.6 Code: 73577-6 Heart Rate 1: 77 bpm Height: 4'11" SpO2: 95% Weight: 201 lbs 01/30/2015 Blood Pressure 1: 150/72 Code: 8480-6 BMI: 40.2 Code: 03612-5 Heart Rate 1: 64 bpm Height: 4'11" Weight: 199 lbs 01/02/2015 Blood Pressure 1: 136/72 Code: 8480-6 BMI: 39.8 Code: 81672-5 Heart Rate 1: 68 bpm Height: 4'11" [...] Directive data Encounters Encounter Performer Location Codes ([id number]) 67722 EST. PATIENT, LEVEL IV Diagnosis: Type 2 diabetes mellitus with hyperglycemia[ICD10: E11.65] Diagnosis: Essential (primary) hypertension[ICD10: I10] Diagnosis: Chronic kidney disease, stage 3 (moderate)[ICD10: N18.3] Diagnosis: Low back pain[ICD10: M54.5] Giselle Knox MD, [facility] CPT-4: 38998 08/15/2018 ([id number]) 08583 EST. PATIENT, LEVEL III Diagnosis: Type 2 diabetes mellitus with hyperglycemia[ICD10: E11.65] Giselle Knox MD, [facility] CPT-4: 16815 06/05/2018 ([id number]) Miscellaneous no charge Diagnosis: Type 2 diabetes mellitus with hyperglycemia[ICD10: E11.65] Jennifer Knox MD, [facility] CPT-4: 84052 05/29/2018 ([id number]) 09097 EST. PATIENT, LEVEL IV Diagnosis: Type 2 diabetes mellitus with hyperglycemia[ICD10: E11.65] Diagnosis: Essential (primary) hypertension[ICD10: I10] Diagnosis: Hypothyroidism, unspecified[ICD10: E03.9] Giselle Knox MD, [facility] CPT-4: 06133 05/15/2018 ([id number]) 20715 EST. PATIENT, LEVEL IV Diagnosis: Essential (primary) hypertension[ICD10: I10] Diagnosis: Type 2 diabetes mellitus with hyperglycemia[ICD10: E11.65] Diagnosis: Hypothyroidism, unspecified[ICD10: E03.9] Diagnosis: Spinal stenosis, lumbar region without neurogenic claudication[ICD10: M48.061] Diagnosis: Vitamin B12 deficiency anemia due to intrinsic factor deficiency[ICD10: D51.0] Giselle Knox MD, [facility] CPT-4: 32740 01/12/2018 ([id number]) 35512 EST. PATIENT, LEVEL IV Diagnosis: Varicose veins of bilateral lower extremities with pain[ICD10: I83.813] Diagnosis: Low back pain[ICD10: M54.5] Diagnosis: Hypothyroidism, unspecified[ICD10: E03.9] Diagnosis: Type 2 diabetes mellitus with hyperglycemia[ICD10: E11.65] Giselle Knox MD, [facility] CPT-4: 57021 11/25/2017 [id number] EST. PATIENT, LEVEL IV Diagnosis: Localized edema[ICD10: R60.0] Diagnosis: Vitamin B12 deficiency anemia due to intrinsic factor deficiency[ICD10: D51.0] Chasity Knox MD, [facility] CPT-4: 77507 09/15/2017 [id number] EST. PATIENT, LEVEL IV Diagnosis: Essential (primary) hypertension[ICD10: I10] Diagnosis: Type 2 diabetes mellitus with hyperglycemia[ICD10: E11.65] Diagnosis: Vitamin B12 deficiency anemia due to intrinsic factor deficiency[ICD10: D51.0] Chasity Knox MD [facility] CPT-4: 37239 08/17/2017 85453 EST. PATIENT, LEVEL IV Diagnosis: Type 2 diabetes mellitus with hyperglycemia[ICD10: E11.65] Diagnosis: Essential (primary) hypertension[ICD10: I10] Diagnosis: Vitamin B12 deficiency anemia due to intrinsic factor deficiency[ICD10: D51.0] Chasity Knox MD, [facility] CPT-4: 24484 07/19/2017 ([id number]) 50483 EST. PATIENT, LEVEL IV Diagnosis: Essential (primary) hypertension[ICD10: I10] Diagnosis: Type 2 diabetes mellitus with hyperglycemia[ICD10: E11.65] Diagnosis: Hypothyroidism, unspecified[ICD10: E03.9] Diagnosis: Vitamin B12 deficiency anemia due to intrinsic factor deficiency[ICD10: D51.0] Diagnosis: Chronic kidney disease, stage 3 (moderate)[ICD10: N18.3] Giselle Knox MD, [facility] CPT-4: 15385 05/19/2017 [id number]) 15732 EST. PATIENT, LEVEL IV Diagnosis: Essential (primary) hypertension[ICD10: I10] Diagnosis: Type 2 diabetes mellitus with hyperglycemia[ICD10: E11.65] Diagnosis: Hypothyroidism, unspecified[ICD10: E03.9] Giselle Knox MD, [facility] CPT-4: 16628 02/15/2017 [id number]) 77981 EST. PATIENT, LEVEL IV Diagnosis: Type 2 diabetes mellitus with hyperglycemia[ICD10: E11.65] Diagnosis: Cough[ICD10: R05] Diagnosis: Acute upper respiratory infection, unspecified[ICD10: J06.9] Diagnosis: Hypothyroidism, unspecified[ICD10: E03.9] Diagnosis: Chronic kidney disease, stage 3 (moderate)[ICD10: N18.3] Giselle Knox MD, [facility] CPT-4: 50634 11/16/2016 ([id number]) 11128 EST. PATIENT, LEVEL IV Diagnosis: Type 2 diabetes mellitus with hyperglycemia[ICD10: E11.65] Diagnosis: Hypothyroidism, unspecified[ICD10: E03.9] Diagnosis: Essential (primary) hypertension[ICD10: I10] Giselle Knox MD, [facility] CPT-4: 00935 08/19/2016 ([id number]) 15221 EST. PATIENT, LEVEL III Diagnosis: Type 2 diabetes mellitus with hyperglycemia[ICD10: E11.65] Giselle Knox MD, [facility] CPT-4: 00718 07/15/2016 ([id number]) 54559 EST. PATIENT, LEVEL IV Diagnosis: Type 2 diabetes mellitus with hyperglycemia[ICD10: E11.65] Diagnosis: Atrophy of thyroid (acquired)[ICD10: E03.4] Diagnosis: Vitamin B12 deficiency anemia due to intrinsic factor deficiency[ICD10: D51.0] Diagnosis: Chronic kidney disease, stage 3 (moderate)[ICD10: N18.3] Diagnosis: Essential (primary) hypertension[ICD10: I10] Jennifer Knox MD, [facility] CPT-4: 11015 06/03/2016 ([id number]) 49967 EST. PATIENT, LEVEL III Diagnosis: Type 2 diabetes mellitus with hyperglycemia[ICD10: E11.65] Diagnosis: Essential (primary) hypertension[ICD10: I10] Diagnosis: Chronic kidney disease, stage 3 (moderate)[ICD10: N18.3] Diagnosis: VACCIN STREP PNEUMONIAE[ICD10: Z23] Giselle Knox MD, [facility] CPT-4: 74961 04/22/2016 54620 EST. PATIENT, LEVEL IV Diagnosis: Type 2 diabetes mellitus with hyperglycemia[ICD10: E11.65] Diagnosis: Essential (primary) hypertension[ICD10: I10] Chasity Knox MD, [facility] CPT-4: 75123 01/22/2016 ([id number]) 25348 EST. PATIENT, LEVEL III Diagnosis: Type 2 diabetes mellitus with hyperglycemia[ICD10: E11.65] Diagnosis: Essential (primary) hypertension[ICD10: I10] Giselle Knox MD, [facility] CPT-4: 73387 10/23/2015 35444 EST. PATIENT, LEVEL IV Diagnosis: Type 2 diabetes mellitus with hyperglycemia[ICD10: E11.65] Diagnosis: Vitamin B12 deficiency anemia due to intrinsic factor deficiency[ICD10: D51.0] Diagnosis: Essential (primary) hypertension[ICD10: I10] Chasity Knox MD, [facility] CPT-4: 18869 09/12/2015 ([id number]) 77108 EST. PATIENT, LEVEL IV Diagnosis: Essential (primary) hypertension[ICD10: I10] Diagnosis: Type 2 diabetes mellitus with hyperglycemia[ICD10: E11.65] Diagnosis: Hypothyroidism, unspecified[ICD10: E03.9] Giselle Knox MD, [facility] CPT-4: 20933 08/05/2015 ([id number]) 76341 EST. PATIENT, LEVEL III Diagnosis: ESSENTIAL HYPERTENSION[ICD9: 401.9] Diagnosis: DIABETES TYPE II[ICD9: 250.00] Jennifer Knox MD [facility] CPT-4: 54683 04/03/2015 ([id number]) 26477 EST. PATIENT, LEVEL IV Diagnosis: ESSENTIAL HYPERTENSION[ICD9: 401.9] Diagnosis: DIABETES TYPE II[ICD9: 250.00] Diagnosis: Hypothyroidism[ICD9: 244.9] Giselle Knox MD [facility] CPT-4: 59479 01/30/2015 ([id number]) OFFICE VISIT, NEW - LEVEL 4 Diagnosis: ESSENTIAL HYPERTENSION[ICD9: 401.9] Diagnosis: DIABETES TYPE II[ICD9: 250.00] Diagnosis: Impacted cerumen[ICD9: 380.4] Jennifer Knox MD, [facility] CPT-4: 50905 01/02/2015 Plan of Care Planned Activity Notes [...] this time. 08/15/2018 Appointment: Giselle Mccoy WPtel: [phone] [phone] (30 min) Complex 08/15/2018 Patient Education: [...] plan. 06/05/2018 Appointment: Giselle Mccoy WPtel: [phone] [phone] (15 min) Moderate 06/05/2018 Patient Education: [...] IPRO. 05/22/2018 Appointment: Giselle Mccoy WPtel: [phone] [phone] (30 min) Complex 05/22/2018 Patient Education: [...] of control. 05/15/2018 Appointment: Giselle Mccoy WPtel: [phone] [phone] (15 min) Moderate 05/15/2018 Patient Education: [...] evaluation-recommend PT 01/12/2018 Appointment: Giselle Mccoy WPtel: [phone] [phone] (30 min) Complex 01/12/2018 Patient Education: Patient Medication Summary Completed 01/12/2018 Care Plan: Referral Order SNOMED-CT : [id number] Pending 01/12/2018 Visit Plan: Varicose veins-rx for compression stockings provided and instructed on use Low back pain-recommend xray lumbar spine Hypothyroidism- check labs DM-check Hgb A1c 11/25/2017 [phone] [place] (30 min) Complex 11/25/2017 Patient Education: Patient Medication Summary Completed 11/25/2017 Care Plan: X-RAY EXAM L-S SPINE 2/3 VWS LOINC : 99171-9 Pending 11/25/2017 Visit Plan: Edema - Left [...] concerns. 09/15/2017 App[phone] [facility] [place] (30 min) Complex 09/15/2017 Patient [...] glucose control. 08/17/2017 App[facility]ment: [facility] [phone] [facility] [place] (15 min) Moderate 08/17/2017 Patient [...] at home. 07/19/2017 App[facility]ment[phone] [phone] (15 min) Moderate 07/19/2017 Patient Education: Patient Medication Summary Completed 07/19/2017 [phone] ([facility] Moderate 06/13/2017 Visit [...] medications. 05/19/2017 App[facility]ment[phone] [phone] (30 min) Complex 05/19/2017 Patient Education: [...] control. 02/15/2017 App[facility]ment: [phone] [phone] (15 min) Moderate 02/15/2017 Patient Education: [...] today 11/16/2016 Appointment[phone] [phone] [place] (15 min) Moderate 11/16/2016 Patient [...] control. 08/19/2016 App[facility]ment: [phone] [phone] [place] (15 min) Moderate 08/19/2016 Patient Education: Patient Medication Summary Completed 08/19/2016 Patient Education: Obesity Completed 08/19/2016 Care Plan: Tsh Cancelled 08/19/2016 Care Plan: %Hba1C LOINC : 81917-2 Cancelled 08/19/2016 Care Plan: Lipid Cancelled 08/19/2016 Care Plan: Free T4 patient coming back next week Cancelled 08/19/2016 Appointment: Injection 07/29/2016 Patient Education: Patient Medication Summary Completed 07/29/2016 Appointment: Giselle Mccoy WPtel: [phone] [phone] (30 min) Complex 07/22/2016 Visit Plan: Diabetes-having hypoglycemia in the mornings-insulin adjusted-patient and verbalized understanding of plan. Follow up in 1 month-call sooner if still having low blood sugars. Sinus congestion-start claritin 07/15/2016 Appointment: Giselle Mccoy WPtel: [phone] [phone] (30 min) Complex 07/15/2016 Patient Education: [...] 06/03/2016 Appointment: [facility] Knox [facility]el[facility] [place] (15 min) Moderate 06/03/2016 Patient [...] 1 MONTH 04/22/2016 Appointment: [facility]cc[facility]Ptel[phone] (15 min) Moderate 04/22/2016 Patient Education: [...] for evaluation-recommend PT . Diabetes Mellitus - I have recommended [...] change in blood pressure readings at home. zpack anti histamine such as zyrtec daily [...] ER with any acute changes or concerns. COME BACK NEXT WEEK FASTING . Diabetes [...] blood glucose control. . Diabetes Mellitus - rts. I [...] -patient is not interested at this time. Decrease morning humulin 70/30 to 18 units [...] lumbar spine Hypothyroidism-check labs DM-check Hgb A1c Increase morning insulin to 18 units 'Decrease [...]
[2019-01-23 08:55] VITALS: BP 173/74
--- OUTSIDE RECORDS SUMMARY | 2019-01-23 08:57 | XMS REPORT | CCD ---
Author Author Jennifer [facility] Organization [facility] Address [address] [place] [address] Phone Care Team Providers Care Kiln Labourer Name Role Phone PP Unavailable CCM Unavailable Summary Purpose Interface Exchange Insurance Providers Payer name Policy type / Coverage type Covered democrat ID Effective Begin Date Effective End Date [facility] Commercial Insurance [id number] Unknown Family history Runs in the family [...] Start Date Stop Date Status Fill Instructions Contour Test Strips RxNorm: TEST BLOOD SUGAR TWO TIMES A DAY E11.65 08/30/2018 03/01/2020 Active Lantus Solostar U-100 Insulin 100 unit/mL (3 mL) subcutaneous pen RxNorm: 253304 INJECT 35 UNITS UNDER THE SKIN EVERY NIGHT AT BEDTIME 08/22/2018 09/24/2020 Active carvedilol 12.5 mg tablet RxNorm: 421970 TAKE ONE TABLET BY MOUTH TWICE A DAY 08/07/2018 08/01/2019 Active Humulin 70/30 U-100 Insulin 100 unit/mL subcutaneous suspension RxNorm: 768452 Unit(s) INJECT 18 UNITS UNDER THE SKIN EVERY MORNING 06/20/2018 09/11/2018 Active Humulin 70/30 U-100 Insulin 100 unit/mL subcutaneous suspension RxNorm: 244469 INJECT 18 UNITS UNDER THE SKIN EVERY MORNING 06/20/2018 06/19/2018 Inactive terazosin 2 mg capsule RxNorm: 611310 TAKE ONE CAPSULE BY MOUTH DAILY 06/09/2018 03/05/2019 Active Humulin 70/30 U-100 Insulin 100 unit/mL subcutaneous suspension RxNorm: 837953 18 Unit(s) SQ QAM 05/15/2018 06/19/2018 Inactive levothyroxine 100 mcg tablet RxNorm: 659168 1 Tablet(s) PO daily 05/11/2018 09/07/2018 Active carvedilol 12.5 mg tablet RxNorm: 870436 TAKE ONE TABLET BY MOUTH TWICE A DAY 05/05/2018 08/06/2018 Inactive losartan 100 mg tablet RxNorm: 031433 TAKE ONE TABLET BY MOUTH DAILY 03/24/2018 06/10/2020 Active terazosin 2 mg capsule RxNorm: 362705 TAKE ONE CAPSULE BY MOUTH DAILY 03/07/2018 06/08/2018 Inactive cyanocobalamin (vit B-12) 1,000 mcg/mL injection solution RxNorm: 111834 1 Milliliter(s) Inj 01/12/2018 01/12/2018 Inactive Lantus Solostar U-100 Insulin 100 unit/mL (3 mL) subcutaneous pen RxNorm: 864770 Unit(s) INJECT 24 UNITS UNDER THE SKIN EVERY NIGHT AT BEDTIME 01/12/2018 08/21/2018 Inactive Humulin 70/30 U-100 Insulin 100 unit/mL subcutaneous suspension RxNorm: 917593 INJECT 18 UNITS UNDER THE SKIN EVERY MORNING 11/14/2017 03/05/2018 Inactive carvedilol 12.5 mg tablet RxNorm: 983232 TAKE ONE TABLET BY MOUTH TWICE A DAY 11/07/2017 05/04/2018 Inactive cyanocobalamin (vit B-12) 1,000 mcg/mL injection solution RxNorm: 660727 Milliliter(s) Inj 09/15/2017 09/15/2017 Inactive terazosin 2 mg capsule RxNorm: 496333 Capsule(s) TAKE ONE CAPSULE BY MOUTH DAILY 09/07/2017 03/05/2018 Inactive Lantus Solostar 100 unit/mL (3 mL) subcutaneous insulin pen RxNorm: 896119 INJECT 35 UNITS UNDER THE SKIN EVERY NIGHT AT BEDTIME 08/29/2017 01/11/2018 Inactive One Touch Test strips RxNorm: 1 test Miscellaneous BID 08/22/2017 08/16/2018 Inactive Contour Test Strips RxNorm: TEST BLOOD SUGAR TWO TIMES A DAY E11.65 08/22/2017 08/29/2018 Inactive Tamiflu 75 mg capsule RxNorm: 185682 1 Capsule(s) PO daily 08/17/2017 08/16/2017 Inactive Tamiflu 75 mg capsule RxNorm: 058453 1 Capsule(s) PO daily 08/17/2017 08/26/2017 Inactive cyanocobalamin (vit B-12) 1,000 mcg/mL injection solution RxNorm: 648711 1 Milliliter(s) Inj 08/17/2017 08/17/2017 Inactive carvedilol 12.5 mg tablet RxNorm: 981196 TAKE ONE TABLET BY MOUTH TWICE A DAY 08/10/2017 11/06/2017 Inactive cyanocobalamin (vit B-12) 1,000 mcg/mL injection solution RxNorm: 718977 1 Milliliter(s) Inj 07/19/2017 07/19/2017 Inactive Humulin 70/30 100 unit/mL subcutaneous suspension RxNorm: 511360 14 Unit(s) SQ QAM 07/06/2017 05/14/2018 Inactive Lantus Solostar 100 unit/mL (3 mL) subcutaneous insulin pen RxNorm: 280266 26 Unit(s) SQ QHS 07/06/2017 08/28/2017 Inactive losartan 100 mg tablet RxNorm: 932147 TAKE ONE TABLET BY MOUTH DAILY 06/07/2017 03/23/2018 Inactive Lantus Solostar 100 unit/mL (3 mL) subcutaneous insulin pen RxNorm: 301902 28 Unit(s) SQ QHS 05/19/2017 07/05/2017 Inactive cyanocobalamin (vit B-12) 1,000 mcg/mL injection solution RxNorm: 980461 1 Milliliter(s) Inj 05/19/2017 05/19/2017 Inactive terazosin 2 mg capsule RxNorm: 816539 TAKE ONE CAPSULE BY MOUTH DAILY 05/16/2017 09/06/2017 Inactive cyanocobalamin (vit B-12) 1,000 mcg/mL injection solution RxNorm: 765877 1 Milliliter(s) Inj 04/06/2017 04/06/2017 Inactive cyanocobalamin (vit B-12) 1,000 mcg/mL injection solution RxNorm: 710115 Milliliter(s) Inj 01/04/2017 01/04/2017 Inactive Humulin 70/30 U-100 Insulin 100 unit/mL subcutaneous suspension RxNorm: 194664 18 Unit(s) SQ QAM 12/22/2016 06/04/2017 Inactive cyanocobalamin (vit B-12) 1,000 mcg/mL injection solution RxNorm: 361528 1 Milliliter(s) Inj 12/10/2016 12/10/2016 Inactive Zithromax Z-Jose 250 mg tablet RxNorm: 732514 1 Tablet(s) PO UD 11/16/2016 11/20/2016 Inactive terazosin 2 mg capsule RxNorm: 127331 TAKE ONE CAPSULE BY MOUTH DAILY 11/08/2016 05/06/2017 Inactive Lantus Solostar 100 unit/mL (3 mL) subcutaneous insulin pen RxNorm: 920881 INJECT 35 UNITS UNDER THE SKIN EVERY NIGHT AT BEDTIME 10/22/2016 07/18/2017 Inactive cyanocobalamin (vit B-12) 1,000 mcg/mL injection solution RxNorm: 088058 Milliliter(s) Inj 10/13/2016 10/13/2016 Inactive cyanocobalamin (vit B-12) 1,000 mcg/mL injection solution RxNorm: 401258 1 Milliliter(s) Inj 09/03/2016 09/03/2016 Inactive Contour Test Strips RxNorm: TEST BLOOD SUGAR TWO TIMES A DAY E11.65 08/19/2016 08/21/2017 Inactive carvedilol 12.5 mg tablet RxNorm: 429474 TAKE ONE TABLET BY MOUTH TWICE A DAY 08/05/2016 01/01/2017 Inactive carvedilol 12.5 mg tablet RxNorm: 768261 TAKE ONE TABLET BY MOUTH TWICE A DAY 08/05/2016 01/01/2017 Inactive carvedilol 12.5 mg tablet RxNorm: 582099 1 Tablet(s) PO BID 08/04/2016 01/30/2017 Inactive cyanocobalamin (vit B-12) 1,000 mcg/mL injection solution RxNorm: 400022 Milliliter(s) Inj 07/29/2016 07/29/2016 Inactive Lantus Solostar 100 unit/mL (3 mL) subcutaneous insulin pen RxNorm: 959991 30 Unit(s) SQ Q 07/15/2016 05/18/2017 Inactive Humulin 70/30 100 unit/mL subcutaneous suspension RxNorm: 543843 18 Unit(s) SQ QA 07/15/2016 12/21/2016 Inactive losartan 100 mg tablet RxNorm: 621121 TAKE ONE TABLET BY MOUTH DAILY 07/08/2016 06/02/2017 Inactive terazosin 2 mg capsule RxNorm: 223527 TAKE ONE CAPSULE BY MOUTH DAILY 06/10/2016 11/06/2016 Inactive cyanocobalamin (vit B-12) 1,000 mcg/mL injection solution RxNorm: 341164 1 Milliliter(s) Inj 06/03/2016 06/03/2016 Inactive Humulin 70/30 100 unit/mL subcutaneous suspension RxNorm: 452796 Unit(s) INJECT 10 UNITS UNDER THE SKIN 06/01/2016 07/14/2016 Inactive Request already responded to by other means (e.g. phone or fax) Humulin 70/30 100 unit/mL subcutaneous suspension RxNorm: 863110 INJECT 10 UNITS UNDER THE SKIN BEFORE MEALS 06/01/2016 05/31/2016 Inactive Request already responded to by other means (e.g. phone or fax) Lantus Solostar 100 unit/mL (3 mL) subcutaneous insulin pen RxNorm: 543795 35 Unit(s) SQ [facility] 05/26/2016 07/14/2016 Inactive Humulin 70/30 100 unit/mL subcutaneous suspension RxNorm: 682330 10 Unit(s) SQ [facility] 05/24/2016 10/02/2016 Inactive Humulin 70/30 100 unit/mL subcutaneous suspension RxNorm: 667820 21 Unit(s) SQ QA 05/24/2016 05/23/2016 Inactive Lantus Solostar 100 unit/mL (3 mL) subcutaneous insulin pen RxNorm: 284381 32 Unit(s) SQ Q 04/22/2016 05/25/2016 Inactive Humulin 70/30 100 unit/mL subcutaneous suspension RxNorm: 782522 21 Unit(s) SQ QA 04/22/2016 05/24/2016 Inactive with breakfast hydrochlorothiazide 25 mg tablet RxNorm: 957667 TAKE ONE TABLET BY MOUTH DAILY 02/04/2016 02/16/2016 Inactive terazosin 2 mg capsule RxNorm: 091995 Capsule(s) TAKE ONE CAPSULE BY MOUTH DAILY. 12/01/2015 05/28/2016 Inactive Humulin 70/30 100 unit/mL subcutaneous suspension RxNorm: 948934 INJECT 10 UNITS UNDER THE SKIN BEFORE MEALS 11/06/2015 03/16/2016 Inactive hydrochlorothiazide 25 mg tablet RxNorm: 445783 1 Tablet(s) PO daily 10/06/2015 02/02/2016 Inactive cyanocobalamin (vit B-12) 1,000 mcg/mL injection solution RxNorm: 284889 Milliliter(s) Inj 09/15/2015 09/15/2015 Inactive Humulin 70/30 100 unit/mL subcutaneous suspension RxNorm: 251767 INJECT 10 UNITS UNDER THE SKIN BEFORE MEALS 09/08/2015 10/10/2015 Inactive cyanocobalamin (vit B-12) 1,000 mcg/mL injection solution RxNorm: 155102 Milliliter(s) Inj 09/08/2015 09/08/2015 Inactive terazosin 2 mg capsule RxNorm: 941308 TAKE ONE CAPSULE BY MOUTH DAILY. DISCONTINUE 5 MG CAPSULES 09/01/2015 11/29/2015 Inactive cyanocobalamin (vit B-12) 1,000 mcg/mL injection solution RxNorm: 342397 Milliliter(s) Inj 09/01/2015 09/01/2015 Inactive cyanocobalamin (vit B-12) 1,000 mcg/mL injection solution RxNorm: 807116 Milliliter(s) Inj 08/25/2015 08/25/2015 Inactive levothyroxine 112 mcg tablet RxNorm: 093405 1 Tablet(s) PO daily 08/06/2015 02/14/2017 Inactive Lantus Solostar 100 unit/mL (3 mL) subcutaneous insulin pen RxNorm: 379989 35 Unit(s) SQ QHS 08/06/2015 04/21/2016 Inactive Humulin 70/30 100 unit/mL subcutaneous suspension RxNorm: 408031 20 Unit(s) SQ AC 08/05/2015 04/21/2016 Inactive with breakfast carvedilol 12.5 mg tablet RxNorm: 569742 1 Tablet(s) PO BID 08/05/2015 01/31/2016 Inactive Humulin 70/30 100 unit/mL subcutaneous suspension RxNorm: 716275 10 Unit(s) SQ AC 07/22/2015 08/04/2015 Inactive losartan 100 mg tablet RxNorm: 430886 TAKE ONE TABLET BY MOUTH DAILY 06/25/2015 06/18/2016 Inactive Lantus Solostar 100 unit/mL (3 mL) subcutaneous insulin pen RxNorm: 174653 30 Unit(s) SQ QHS 06/18/2015 08/05/2015 Inactive terazosin 2 mg capsule RxNorm: 758833 1 Capsule(s) PO daily 04/14/2015 08/11/2015 Inactive DC the 5mg order terazosin 2 mg capsule RxNorm: 040635 1 Capsule(s) PO daily 04/14/2015 04/13/2015 Inactive Synthroid 25 mcg tablet RxNorm: 001359 1 Tablet(s) PO daily 04/11/2015 02/14/2017 Inactive Synthroid 25 mcg tablet RxNorm: 346454 1 Tablet(s) PO daily 04/11/2015 04/10/2015 Inactive Lantus Solostar 100 unit/mL (3 mL) subcutaneous insulin pen RxNorm: 545621 30 Unit(s) SQ QHS 04/04/2015 06/17/2015 Inactive terazosin 5 mg tablet RxNorm: 708107 1 Tablet(s) PO daily 04/03/2015 04/13/2015 Inactive Lantus Solostar 100 unit/mL (3 mL) subcutaneous insulin pen RxNorm: 454849 25 Unit(s) SQ QHS 01/08/2015 04/03/2015 Inactive carvedilol 25 mg tablet RxNorm: 754274 1 Tablet(s) PO BID 01/02/2015 01/31/2015 Inactive terazosin 5 mg tablet RxNorm: 263181 1 Tablet(s) PO daily 01/02/2015 01/01/2015 Inactive levothyroxine 125 mcg tablet RxNorm: 643768 1 Tablet(s) PO daily 01/02/2015 01/31/2015 Inactive terazosin 5 mg tablet RxNorm: 570999 1/2 Tablet(s) PO daily 01/02/2015 01/31/2015 Inactive losartan 100 mg tablet RxNorm: 309181 1 Tablet(s) PO daily 12/24/2014 04/22/2015 Inactive losartan 100 mg tablet RxNorm: 347450 1 Tablet(s) PO daily 12/24/2014 12/23/2014 Inactive Contour Test Strips RxNorm: Miscellaneous test blood sugars BID 12/06/2014 12/05/2014 Inactive dx 250.00 Contour Test Strips RxNorm: Miscellaneous test blood sugars BID or UD 12/06/2014 06/23/2015 Inactive dx 250.00 [SAVINGS FOR NON-COVERED DRUGS -- [id number], PCN: [id number], Group: [id number], ID# [id number], Questions: . THIS IS NOT INSURANCE.] folic acid 1 mg tablet RxNorm: 771211 1 Tablet(s) PO QHS No Start Date Active Microlet Lancet RxNorm: Miscellaneous Test BID or Ud No Start Date Active 250.0 aspirin 81 mg tablet,delayed release RxNorm: 643150 1 Tablet(s) PO daily No Start Date Active Stool Softener 100 mg capsule RxNorm: 4878285 1 Capsule(s) PO every other day No Start Date Active folic acid oral RxNorm: 4511 oral No Start Date 05/19/2017 Inactive cyanocobalamin (vit B-12) 100 mcg tablet RxNorm: 636801 1 Tablet(s) PO daily No Start Date 02/14/2017 Inactive hydrochlorothiazide 25 mg tablet RxNorm: 152598 1 Tablet(s) PO daily No Start Date 10/05/2015 Inactive Stool Softener 100 mg capsule RxNorm: 8103706 1 Capsule(s) PO daily No Start Date 05/18/2017 Inactive Humulin 70/30 100 unit/mL subcutaneous suspension RxNorm: 831777 20 Unit(s) SQ QAM No Start Date 07/21/2015 Inactive levothyroxine 100 mcg tablet RxNorm: 790265 1 Tablet(s) PO daily No Start Date 05/10/2018 Inactive Lantus Solostar 100 unit/mL (3 mL) subcutaneous insulin pen RxNorm: 336367 20 Unit(s) SQ QHS No Start Date 01/07/2015 Inactive ferrous sulfate 325 mg (65 mg iron) tablet RxNorm: 712777 1 Tablet(s) PO daily No Start Date 05/18/2017 Inactive Medication Administered Medication Codes Instructions Start Date Status cyanocobalamin (vit B-12) 1,000 mcg/mL injection solution RxNorm: 567599 1Milliliter 01/12/2018 No longer Active cyanocobalamin (vit B-12) 1,000 mcg/mL injection solution RxNorm: 569445 Milliliter 09/15/2017 No longer Active cyanocobalamin (vit B-12) 1,000 mcg/mL injection solution RxNorm: 926585 1Milliliter 08/17/2017 No longer Active cyanocobalamin (vit B-12) 1,000 mcg/mL injection solution RxNorm: 271789 1Milliliter 07/19/2017 No longer Active cyanocobalamin (vit B-12) 1,000 mcg/mL injection solution RxNorm: 150208 1Milliliter 05/19/2017 No longer Active cyanocobalamin (vit B-12) 1,000 mcg/mL injection solution RxNorm: 835504 1Milliliter 04/06/2017 No longer Active cyanocobalamin (vit B-12) 1,000 mcg/mL injection solution RxNorm: 150440 Milliliter 01/04/2017 No longer Active cyanocobalamin (vit B-12) 1,000 mcg/mL injection solution RxNorm: 344559 1Milliliter 12/10/2016 No longer Active cyanocobalamin (vit B-12) 1,000 mcg/mL injection solution RxNorm: 853806 Milliliter 10/13/2016 No longer Active cyanocobalamin (vit B-12) 1,000 mcg/mL injection solution RxNorm: 088439 1Milliliter 09/03/2016 No longer Active cyanocobalamin (vit B-12) 1,000 mcg/mL injection solution RxNorm: 236037 Milliliter 07/29/2016 No longer Active cyanocobalamin (vit B-12) 1,000 mcg/mL injection solution RxNorm: 584597 1Milliliter 06/03/2016 No longer Active cyanocobalamin (vit B-12) 1,000 mcg/mL injection solution RxNorm: 430392 Milliliter 09/15/2015 No longer Active cyanocobalamin (vit B-12) 1,000 mcg/mL injection solution RxNorm: 996377 Milliliter 09/08/2015 No longer Active cyanocobalamin (vit B-12) 1,000 mcg/mL injection solution RxNorm: 135483 Milliliter 09/01/2015 No longer Active cyanocobalamin (vit B-12) 1,000 mcg/mL injection solution RxNorm: 950571 Milliliter 08/25/2015 No longer Active Immunizations Vaccine [...] Item Item Code Result Date Comp Metabolic Bcw021 NA 139 mEq/L 08/15/2018 Comp Metabolic Dkt188 K 4.0 mEq/L 08/15/2018 Comp Metabolic Oiy309 CL 107 mEq/L 08/15/2018 Comp Metabolic Zta957 CO2 25.0 mEq/L 08/15/2018 Comp Metabolic Bfd442 ANION GAP 11 08/15/2018 Comp Metabolic Pav500 GLUCOSE 142 mg/dL 08/15/2018 Comp Metabolic Fpt137 Creat 0.9 mg/dL 08/15/2018 Comp Metabolic Kfv201 eGFR 64 ml/min/1.73m2 08/15/2018 Comp Metabolic Uez490 BUN 22 mg/dL 08/15/2018 Comp Metabolic Jnb174 B/C Ratio 24.4 Ratio 08/15/2018 Comp Metabolic Dhn315 CALCIUM 9.3 mg/dL 08/15/2018 Comp Metabolic Pll626 ALK PHOS 83 U/L 08/15/2018 Comp Metabolic Yxm176 AST(SGOT) 35 U/L 08/15/2018 Comp Metabolic Kmb836 ALT(SGPT) 19 U/L 08/15/2018 Comp Metabolic Trr330 BILI T 0.6 mg/dL 08/15/2018 Comp Metabolic Zus733 ALBUMIN 3.7 g/dL 08/15/2018 Comp Metabolic Qin299 TPRO 6.3 g/dL 08/15/2018 Comp Metabolic Xrm927 GLOB 2.6 g/dL 08/15/2018 Comp Metabolic Tyn333 A/G Ratio 1.5 Ratio 08/15/2018 Comp Metabolic Zfr691 Osmo 283 mOsmo 08/15/2018 %Hba1C Vbh847 % HbA1c 63171- 6 7.4 % 08/15/2018 %Hba1C Dsk578 Gluc Ave 166 mg/dL 08/15/2018 Tsh Ord6 [...] 41.4 % 08/15/2018 Cbc With Differential Ord2 Mower% 10.9 % 08/15/2018 Cbc With Differential Ord2 [...] 2.66 K/ul 08/15/2018 Cbc With Differential Ord2 Mower ABS# 0.7 K/ul 08/15/2018 Cbc With Differential Ord2 Eos ABS# 0.2 K/ul 08/15/2018 Cbc With Differential Ord2 Baso ABS# 0.0 K/ul 08/15/2018 Free T4 Smk881 FREE T4 1.21 ng/dL 05/15/2018 Tsh Ord6 TSH (3rd IS) 0.97 uIU/mL 05/15/2018 %Hba1C Nvw763 % HbA1c 90054- 6 7.8 % 05/15/2018 %Hba1C Wtj548 Gluc Ave 177 mg/dL 05/15/2018 Comp Metabolic Zrk750 NA 142 mEq/L 05/15/2018 Comp Metabolic Srg187 K 4.0 mEq/L 05/15/2018 Comp Metabolic Vpp508 CL 107 mEq/L 05/15/2018 Comp Metabolic Wbm911 CO2 28.0 mEq/L 05/15/2018 Comp Metabolic Pva864 ANION GAP 11 05/15/2018 Comp Metabolic Cdm479 GLUCOSE 211 mg/dL 05/15/2018 Comp Metabolic Akc817 Creat 0.9 mg/dL 05/15/2018 Comp Metabolic Ibs782 eGFR 61 ml/min/1.73m2 05/15/2018 Comp Metabolic Tfd441 BUN 21 mg/dL 05/15/2018 Comp Metabolic Cli070 B/C Ratio 22.6 Ratio 05/15/2018 Comp Metabolic Not017 CALCIUM 9.1 mg/dL 05/15/2018 Comp Metabolic Tay951 ALK PHOS 85 U/L 05/15/2018 Comp Metabolic Unb586 AST(SGOT) 36 U/L 05/15/2018 Comp Metabolic Jhp399 ALT(SGPT) 19 U/L 05/15/2018 Comp Metabolic Kqu636 BILI T 0.6 mg/dL 05/15/2018 Comp Metabolic Wub031 ALBUMIN 3.8 g/dL 05/15/2018 Comp Metabolic Fkp988 TPRO 6.2 g/dL 05/15/2018 Comp Metabolic Kdz934 GLOB 2.4 g/dL 05/15/2018 Comp Metabolic Hmx048 A/G Ratio 1.6 Ratio 05/15/2018 Comp Metabolic Tit326 Osmo 292 mOsmo 05/15/2018 Tsh Ord6 TSH (3rd IS) 1.14 uIU/mL 11/28/2017 Comp Metabolic Tta280 NA 139 mEq/L 11/28/2017 Comp Metabolic Kqs135 K 4.1 mEq/L 11/28/2017 Comp Metabolic Nbl878 CL 105 mEq/L 11/28/2017 Comp Metabolic Xkc053 CO2 26.0 mEq/L 11/28/2017 Comp Metabolic Daw579 ANION GAP 12 11/28/2017 Comp Metabolic Kha231 GLUCOSE 132 mg/dL 11/28/2017 Comp Metabolic Rvu664 Creat 0.9 mg/dL 11/28/2017 Comp Metabolic Nus437 eGFR 66 ml/min/1.73m2 11/28/2017 Comp Metabolic Lhh727 BUN 17 mg/dL 11/28/2017 Comp Metabolic Bxa449 B/C Ratio 19.5 Ratio 11/28/2017 Comp Metabolic Xmn204 CALCIUM 9.1 mg/dL 11/28/2017 Comp Metabolic Cde784 ALK PHOS 78 U/L 11/28/2017 Comp Metabolic Xps652 AST(SGOT) 35 U/L 11/28/2017 Comp Metabolic Jin556 ALT(SGPT) 17 U/L 11/28/2017 Comp Metabolic Adk417 BILI T 0.6 mg/dL 11/28/2017 Comp Metabolic Fwg538 ALBUMIN 3.9 g/dL 11/28/2017 Comp Metabolic Ywy504 TPRO 6.4 g/dL 11/28/2017 Comp Metabolic Bhs924 GLOB 2.5 g/dL 11/28/2017 Comp Metabolic Caz985 A/G Ratio 1.6 Ratio 11/28/2017 Comp Metabolic Ckl054 Osmo 281 mOsmo 11/28/2017 Free T4 Ndz552 FREE T4 1.05 ng/dL 11/28/2017 Cbc With Differential Ord2 WBC 6.44 K/ul [...] 29.8 pg 11/25/2017 Cbc With Differential Ord2 Mower% 10.2 % 11/25/2017 Cbc With Differential Ord2 [...] 2.56 K/ul 11/25/2017 Cbc With Differential Ord2 Mower ABS# 0.7 K/ul 11/25/2017 Cbc With Differential Ord2 Eos ABS# 0.2 K/ul 11/25/2017 Cbc With Differential Ord2 Baso ABS# 0.0 K/ul 11/25/2017 %Hba1C Afl341 % HbA1c 15757- 6 7.7 % 11/25/2017 %Hba1C Xqq767 Gluc Ave 174 mg/dL 11/25/2017 Cbc With Differential Ord2 WBC 8.04 K/ul 05/19/2017 Cbc With Differential Ord2 RBC 3.93 M/ul 05/19/2017 Cbc With Differential Ord2 HGB 11.9 g/dl 05/19/2017 Cbc With Differential Ord2 Neut% 70.8 % 05/19/2017 Cbc With Differential Ord2 HCT 36.8 % 05/19/2017 Cbc With Differential Ord2 MCV 93.6 fl 05/19/2017 Cbc With Differential Ord2 Lymph% 20.4 % 05/19/2017 Cbc With Differential Ord2 Mower% 6.8 % 05/19/2017 Cbc With Differential Ord2 MCH 30.3 pg 05/19/2017 Cbc With Differential Ord2 MCHC 32.3 pg 05/19/2017 Cbc With Differential Ord2 Eos% 1.9 % 05/19/2017 Cbc With Differential Ord2 Baso% 0.1 % 05/19/2017 Cbc With Differential Ord2 PLT 174 K/ul 05/19/2017 Cbc With Differential Ord2 Neut ABS# 5.69 K/ul 05/19/2017 Cbc With Differential Ord2 RDW 14.0 % 05/19/2017 Cbc With Differential Ord2 Lymph ABS# 1.64 K/ul 05/19/2017 Cbc With Differential Ord2 Mower ABS# 0.6 K/ul 05/19/2017 Cbc With Differential Ord2 Eos ABS# 0.2 K/ul 05/19/2017 Cbc With Differential Ord2 Baso ABS# 0.0 K/ul 05/19/2017 B12 Ski702 B12 >1500.00 pg/ml 05/19/2017 Comp Metabolic Qjw290 NA 140 mEq/L 05/19/2017 Comp Metabolic Neh157 K 3.8 mEq/L 05/19/2017 Comp Metabolic Iys963 CL 108 mEq/L 05/19/2017 Comp Metabolic Xvd687 CO2 21.0 mEq/L 05/19/2017 Comp Metabolic Ruh734 ANION GAP 15 05/19/2017 Comp Metabolic Dwo394 GLUCOSE 207 mg/dL 05/19/2017 Comp Metabolic Yzn783 Creat 1.0 mg/dL 05/19/2017 Comp Metabolic Eub382 eGFR 55 ml/min/1.73m2 05/19/2017 Comp Metabolic Sdq743 BUN 21 mg/dL 05/19/2017 Comp Metabolic Arj038 B/C Ratio 20.4 Ratio 05/19/2017 Comp Metabolic Ryh101 CALCIUM 9.1 mg/dL 05/19/2017 Comp Metabolic Clu857 ALK PHOS 74 U/L 05/19/2017 Comp Metabolic Dcc127 AST(SGOT) 32 U/L 05/19/2017 Comp Metabolic Krt561 ALT(SGPT) 15 U/L 05/19/2017 Comp Metabolic Rpy994 BILI T 0.6 mg/dL 05/19/2017 Comp Metabolic Xec041 ALBUMIN 3.9 g/dL 05/19/2017 Comp Metabolic Ffh401 TPRO 6.2 g/dL 05/19/2017 Comp Metabolic Qtx980 GLOB 2.3 g/dL 05/19/2017 Comp Metabolic Poi620 A/G Ratio 1.6 Ratio 05/19/2017 Comp Metabolic Rzn649 Osmo 288 mOsmo 05/19/2017 Free T4 Kdr808 FREE T4 1.10 ng/dL 05/19/2017 %Hba1C Akc177 % HbA1c 86102- 6 6.8 % 05/19/2017 %Hba1C Goz006 Gluc Ave 148 mg/dL 05/19/2017 Tsh Ord6 hTSH II 1.73 uIU/mL 05/19/2017 Cbc With Differential Ord2 WBC 6.80 [...] 29.3 pg 12/10/2016 Cbc With Differential Ord2 Mower% 7.1 % 12/10/2016 Cbc With Differential Ord2 [...] 2.50 K/ul 12/10/2016 Cbc With Differential Ord2 Mower ABS# 0.5 K/ul 12/10/2016 Cbc With Differential Ord2 Eos ABS# 0.1 K/ul 12/10/2016 Cbc With Differential Ord2 Baso ABS# 0.0 K/ul 12/10/2016 B12 Hni945 B12 222.00 pg/ml 12/10/2016 Free T4 Ckk008 FREE T4 1.03 ng/dL 11/16/2016 Tsh Ord6 hTSH II 2.50 uIU/mL 11/16/2016 %Hba1C Kiv191 % HbA1c 69137- 6 7.5 % 11/16/2016 %Hba1C Pzj382 Gluc Ave 169 mg/dL 11/16/2016 Comp Metabolic Wai755 NA 138 mEq/L 11/16/2016 Comp Metabolic Pug026 K 3.8 mEq/L 11/16/2016 Comp Metabolic Duv500 CL 103 mEq/L 11/16/2016 Comp Metabolic Acb052 CO2 26.0 mEq/L 11/16/2016 Comp Metabolic Dam226 ANION GAP 13 11/16/2016 Comp Metabolic Ner278 GLUCOSE 235 mg/dL 11/16/2016 Comp Metabolic Nhe090 Creat 0.9 mg/dL 11/16/2016 Comp Metabolic Vue012 eGFR 62 ml/min/1.73m2 11/16/2016 Comp Metabolic Yxj937 BUN 20 mg/dL 11/16/2016 Comp Metabolic Mxr038 B/C Ratio 21.7 Ratio 11/16/2016 Comp Metabolic Xwc697 CALCIUM 8.9 mg/dL 11/16/2016 Comp Metabolic Xmp403 ALK PHOS 75 U/L 11/16/2016 Comp Metabolic Kpe523 AST(SGOT) 30 U/L 11/16/2016 Comp Metabolic Xte930 ALT(SGPT) 13 U/L 11/16/2016 Comp Metabolic Xuf014 BILI T 0.6 mg/dL 11/16/2016 Comp Metabolic Hie077 ALBUMIN 3.8 g/dL 11/16/2016 Comp Metabolic Vfm135 TPRO 6.8 g/dL 11/16/2016 Comp Metabolic Teh802 GLOB 3.1 g/dL 11/16/2016 Comp Metabolic Ouz995 A/G Ratio 1.2 Ratio 11/16/2016 Comp Metabolic Xfg008 Osmo 286 mOsmo 11/16/2016 Tsh Ord6 hTSH II 3.18 uIU/mL 05/21/2016 Lipid Ord30 CHOL 212 mg/dL 05/21/2016 Lipid Ord30 HDL 43.0 mg/dl 05/21/2016 Lipid Ord30 TRIG 164 mg/dL 05/21/2016 Lipid Ord30 LDL 136 mg/dL 05/21/2016 Lipid Ord30 C/HDL 4.9 Ratio 05/21/2016 B12 Jmm104 B12 159.00 pg/ml 05/21/2016 Free T4 Ymp113 FREE T4 1.03 ng/dL 05/21/2016 %Hba1C Bsz517 % HbA1c 84309- 6 7.5 % 05/21/2016 %Hba1C Vgg927 Gluc Ave 169 mg/dL 05/21/2016 Folate Ord36 Folate >23.80 ng/mL 05/21/2016 CHEM 14 8175541 AST 33 U/L 03/15/2016 CHEM 14 2930881 ALT 13 U/L 03/15/2016 CHEM 14 3123982 BUN 18 mg/dL 03/15/2016 CHEM 14 5230994 ALBUMIN 3.9 g/dL 03/15/2016 CHEM 14 3777960 CHLORIDE 105 mmol/L 03/15/2016 CHEM 14 4080845 Bili Total 0.4 mg/dL 03/15/2016 CHEM 14 1532631 ALK PHOS 60 U/L 03/15/2016 CHEM 14 6034348 SODIUM 138 mmol/L 03/15/2016 CHEM 14 7581692 CREATININE 0.99 mg/dL 03/15/2016 CHEM 14 7100830 CALCIUM 9.4 mg/dL 03/15/2016 CHEM 14 6059646 POTASSIUM 3.8 mmol/L 03/15/2016 CHEM 14 4953334 TOTAL PROTEIN 6.7 g/dL 03/15/2016 CHEM 14 6417285 GLUCOSE 109 mg/dL 03/15/2016 CHEM 14 8169718 Bicarbonate 27 mmol/L 03/15/2016 CHEM 14 7095051 AGAP 6 mmol/L 03/15/2016 GFR CALC 5764486 GFR Non Afr Amr 54 mL/min 03/15/2016 GFR CALC 8992755 GFR Afr Amr >60 mL/min 03/15/2016 B12 Vfe399 B12 46.00 pg/ml 08/07/2015 Iron Ord72 Iron 66 ug/dl 08/07/2015 Comp Metabolic Nwm678 NA 137 mEq/L 08/05/2015 Comp Metabolic Eyv736 K 4.5 mEq/L 08/05/2015 Comp Metabolic Xkr774 CL 104 mEq/L 08/05/2015 Comp Metabolic Rlw814 CO2 26.0 mEq/L 08/05/2015 Comp Metabolic Ngo985 ANION GAP 12 08/05/2015 Comp Metabolic Wdo166 GLUCOSE 146 mg/dL 08/05/2015 Comp Metabolic Ina392 Creat 1.0 mg/dL 08/05/2015 Comp Metabolic Plb417 eGFR 56 ml/min/1.73m2 08/05/2015 Comp Metabolic Qcq527 BUN 23 mg/dL 08/05/2015 Comp Metabolic Iza762 B/C Ratio 22.8 Ratio 08/05/2015 Comp Metabolic Ysv878 CALCIUM 9.3 mg/dL 08/05/2015 Comp Metabolic Ejk114 ALK PHOS 71 U/L 08/05/2015 Comp Metabolic Sds216 AST(SGOT) 33 U/L 08/05/2015 Comp Metabolic Cni665 ALT(SGPT) 15 U/L 08/05/2015 Comp Metabolic Qlu249 BILI T 0.6 mg/dL 08/05/2015 Comp Metabolic Mtj388 ALBUMIN 3.9 g/dL 08/05/2015 Comp Metabolic Dtt179 TPRO 6.5 g/dL 08/05/2015 Comp Metabolic Vyv166 GLOB 2.6 g/dL 08/05/2015 Comp Metabolic Ifj759 A/G Ratio 1.5 Ratio 08/05/2015 Comp Metabolic Psv816 Osmo 280 mOsmo 08/05/2015 Tsh Ord6 hTSH II 0.36 uIU/mL 08/05/2015 Cbc With Differential Ord2 WBC 4.9 [...] Differential Ord2 RDW 16.6 % 08/05/2015 %Hba1C Ena082 % HbA1c 28939- 6 8.1 % 08/05/2015 %Hba1C Qcf279 Gluc Ave 186 mg/dL 08/05/2015 Free T4 Cls863 FREE T4 1.33 ng/dL 08/05/2015 Free T4 Qhh220 FREE T4 0.91 ng/dL 04/11/2015 Cbc With Differential Ord2 WBC 5.5 K/uL [...] Differential Ord2 RDW 15.8 % 04/10/2015 %Hba1C Ray612 % HbA1c 37560- 6 8.3 % 04/10/2015 %Hba1C Fyp798 Gluc Ave 192 mg/dL 04/10/2015 Comp Metabolic Wgl400 NA 134 mEq/L 04/10/2015 Comp Metabolic Bmo841 K 4.1 mEq/L 04/10/2015 Comp Metabolic Ris444 CL 105 mEq/L 04/10/2015 Comp Metabolic Kpa222 CO2 26.0 mEq/L 04/10/2015 Comp Metabolic Kpx527 ANION GAP 7 04/10/2015 Comp Metabolic Gzf436 GLUCOSE 126 mg/dL 04/10/2015 Comp Metabolic Bjx988 Creat 1.0 mg/dL 04/10/2015 Comp Metabolic Zgu530 eGFR 58 ml/min/1.73m2 04/10/2015 Comp Metabolic Lbq125 BUN 29 mg/dL 04/10/2015 Comp Metabolic Rgk233 B/C Ratio 29.6 Ratio 04/10/2015 Comp Metabolic Fkg090 CALCIUM 9.3 mg/dL 04/10/2015 Comp Metabolic Tva328 ALK PHOS 63 U/L 04/10/2015 Comp Metabolic Tbm349 AST(SGOT) 31 U/L 04/10/2015 Comp Metabolic Hwf951 ALT(SGPT) 14 U/L 04/10/2015 Comp Metabolic Upg818 BILI T 0.6 mg/dL 04/10/2015 Comp Metabolic Smy021 ALBUMIN 3.9 g/dL 04/10/2015 Comp Metabolic Sqa748 TPRO 6.3 g/dL 04/10/2015 Comp Metabolic Wyh011 GLOB 2.4 g/dL 04/10/2015 Comp Metabolic Snv756 A/G Ratio 1.6 Ratio 04/10/2015 Comp Metabolic Fga452 Osmo 276 mOsmo 04/10/2015 Tsh Ord6 hTSH [...] Date GLUC MONITOR CONT PHYS I&R CPT-4: 99111 06/05/2018 GLUCOSE MONITORING CONT CPT-4: 51241 05/22/2018 THER/PROPH/DIAG INJ SC/IM CPT-4: 20254 01/12/2018 VITAMIN B12 INJECTION CPT- 4: J3420 01/12/2018 THER/PROPH/DIAG INJ SC/IM CPT-4: 17830 09/15/2017 VITAMIN B12 INJECTION CPT- 4: J3420 09/15/2017 THER/PROPH/DIAG INJ SC/IM CPT-4: 05810 08/17/2017 VITAMIN B12 INJECTION CPT- 4: J3420 08/17/2017 THER/PROPH/DIAG INJ SC/IM CPT-4: 96369 07/19/2017 VITAMIN B12 INJECTION CPT- 4: J3420 07/19/2017 THER/PROPH/DIAG INJ SC/IM CPT-4: 28432 05/19/2017 VITAMIN B12 INJECTION CPT- 4: J3420 05/19/2017 THER/PROPH/DIAG INJ SC/IM CPT-4: 32275 04/06/2017 VITAMIN B12 INJECTION CPT- 4: J3420 04/06/2017 THER/PROPH/DIAG INJ SC/IM CPT-4: 79263 01/04/2017 VITAMIN B12 INJECTION CPT- 4: J3420 01/04/2017 THER/PROPH/DIAG INJ SC/IM CPT-4: 13675 12/10/2016 VITAMIN B12 INJECTION CPT- 4: J3420 12/10/2016 THER/PROPH/DIAG INJ SC/IM CPT-4: 86180 10/13/2016 TRIAMCINOLONE ACET INJ NOS CPT-4: J3301 10/13/2016 THER/PROPH/DIAG INJ SC/IM CPT-4: 56120 09/03/2016 VITAMIN B12 INJECTION CPT- 4: J3420 09/03/2016 THER/PROPH/DIAG INJ SC/IM CPT-4: 41061 07/29/2016 VITAMIN B12 INJECTION CPT- 4: J3420 07/29/2016 THER/PROPH/DIAG INJ SC/IM CPT-4: 14161 06/03/2016 VITAMIN B12 INJECTION CPT- 4: J3420 06/03/2016 PNEUMOCOCCAL VACC [address]: 46566325 CPT-4: 25487 04/22/2016 ADMIN PNEUMOCOCCAL VACCINE SNOMED CT: 30772343 CPT-4: G0009 04/22/2016 VITAMIN B12 INJECTION CPT- 4: J3420 09/15/2015 THER/PROPH/DIAG INJ SC/IM CPT-4: 24246 09/15/2015 THER/PROPH/DIAG INJ SC/IM CPT-4: 47080 09/08/2015 VITAMIN B12 INJECTION CPT- 4: J3420 09/08/2015 THER/PROPH/DIAG INJ SC/IM CPT-4: 99217 09/01/2015 VITAMIN B12 INJECTION CPT- 4: J3420 09/01/2015 THER/PROPH/DIAG INJ SC/IM CPT-4: 07668 08/25/2015 VITAMIN B12 INJECTION CPT- 4: J3420 08/25/2015 Vital Signs Date Vital 08/15/2018 Blood Pressure 1: 144/70 Code: 8480-6 BMI: 40.8 Code: 33836-2 Heart Rate 1: 83 bpm Height: 4'11" SpO2: 97% Weight: 202 lbs 06/05/2018 Blood Pressure 1: 132/70 Code: 8480-6 BMI: 41.6 Code: 71379-0 Heart Rate 1: 70 bpm Height: 4'11" SpO2: 96% Weight: 206 lbs 05/22/2018 Blood Pressure 1: 148/72 Code: 8480-6 BMI: 41.6 Code: 22065-9 Heart Rate 1: 82 bpm Height: 4'11" SpO2: 95% Weight: 206 lbs 05/15/2018 Blood Pressure 1: 140/80 Code: 8480-6 BMI: 41.6 Code: 15982-8 Heart Rate 1: 86 bpm Height: 4'11" SpO2: 92% Weight: 206 lbs 01/12/2018 Blood Pressure 1: 140/78 Code: 8480-6 BMI: 42.2 Code: 86753-0 Heart Rate 1: 73 bpm Height: 4'11" SpO2: 97% Weight: 209 lbs 11/25/2017 Blood Pressure 1: 140/68 Code: 8480-6 BMI: 42.2 Code: 61584-0 Heart Rate 1: 76 bpm Height: 4'11" SpO2: 94% Weight: 209 lbs 09/15/2017 Blood Pressure 1: 146/67 Code: 8480-6 BMI: 42.2 Code: 24589-8 Heart Rate 1: 69 bpm Height: 4'11" SpO2: 97% Weight: 209 lbs 08/17/2017 Blood Pressure 1: 144/70 Code: 8480-6 BMI: 41.8 Code: 48189-3 Heart Rate 1: 63 bpm Height: 4'11" SpO2: 97% Weight: 207 lbs 07/19/2017 Blood Pressure 1: 142/74 Code: 8480-6 BMI: 41.4 Code: 90793-7 Heart Rate 1: 71 bpm Height: 4'11" SpO2: 96% Weight: 205 lbs 05/19/2017 Blood Pressure 1: 148/76 Code: 8480-6 BMI: 42.8 Code: 25296-2 Heart Rate 1: 72 bpm Height: 4'11" SpO2: 94% Weight: 212 lbs 02/15/2017 Blood Pressure 1: 154/70 Code: 8480-6 BMI: 42.5 Code: 34721-2 Heart Rate 1: 68 bpm Height: 4'11" SpO2: 97% Weight: 210 lbs 8 oz 11/16/2016 Blood Pressure 1: 142/78 Code: 8480-6 BMI: 41.6 Code: 34466-7 Heart Rate 1: 68 bpm Height: 4'11" SpO2: 95% Temperature: 36.0 (C) / 96.8 (F) Weight: 206 lbs 08/19/2016 Blood Pressure 1: 120/74 Code: 8480-6 BMI: 41.6 Code: 34222-4 Heart Rate 1: 75 bpm Height: 4'11" SpO2: 95% Weight: 206 lbs 07/15/2016 Blood Pressure 1: 140/76 Code: 8480-6 BMI: 42.0 Code: 81806-3 Heart Rate 1: 76 bpm Height: 4'11" SpO2: 96% Weight: 208 lbs 06/03/2016 Blood Pressure 1: 130/78 Code: 8480-6 BMI: 42.8 Code: 41368-2 Heart Rate 1: 72 bpm Height: 4'11" SpO2: 98% Weight: 212 lbs 04/22/2016 Blood Pressure 1: 142/84 Code: 8480-6 BMI: 41.8 Code: 21650-6 Heart Rate 1: 86 bpm Height: 4'11" SpO2: 92% Weight: 207 lbs 01/22/2016 Blood Pressure 1: 162/64 Code: 8480-6 BMI: 41.2 Code: 94857-7 Heart Rate 1: 70 bpm Height: 4'11" SpO2: 97% Weight: 204 lbs 10/23/2015 Blood Pressure 1: 130/70 Code: 8480-6 BMI: 40.4 Code: 41396-4 Heart Rate 1: 72 bpm Height: 4'11" SpO2: 95% Weight: 200 lbs 09/12/2015 Blood Pressure 1: 142/62 Code: 8480-6 BMI: 39.4 Code: 25938-8 Heart Rate 1: 63 bpm Height: 4'11" SpO2: 96% Weight: 195 lbs 08/05/2015 Blood Pressure 1: 144/60 Code: 8480-6 BMI: 41.0 Code: 21720-9 Heart Rate 1: 92 bpm Height: 4'11" SpO2: 90% SpO2: 97% Weight: 203 lbs 04/03/2015 Blood Pressure 1: 142/68 Code: 8480-6 BMI: 40.6 Code: 78018-0 Heart Rate 1: 77 bpm Height: 4'11" SpO2: 95% Weight: 201 lbs 01/30/2015 Blood Pressure 1: 150/72 Code: 8480-6 BMI: 40.2 Code: 32908-9 Heart Rate 1: 64 bpm Height: 4'11" Weight: 199 lbs 01/02/2015 Blood Pressure 1: 136/72 Code: 8480-6 BMI: 39.8 Code: 34582-9 Heart Rate 1: 68 bpm Height: 4'11" [...] data Encounters Encounter Performer Location Codes Date ([id number]) 99185 EST. PATIENT, LEVEL IV Diagnosis: Type 2 diabetes mellitus with hyperglycemia[ICD10: E11.65] Diagnosis: Essential (primary) hypertension[ICD10: I10] Diagnosis: Chronic kidney disease, stage 3 (moderate)[ICD10: N18.3] Diagnosis: Low back pain[ICD10: M54.5] Giselle Knox MD, [facility] CPT-4: 35812 08/15/2018 ([id number]) 25408 EST. PATIENT, LEVEL III Diagnosis: Type 2 diabetes mellitus with hyperglycemia[ICD10: E11.65] Giselle Knox MD, [facility] CPT-4: 88953 06/05/2018 ([id number]) Miscellaneous no charge Diagnosis: Type 2 diabetes mellitus with hyperglycemia[ICD10: E11.65] Jennifer Knox MD, [facility] CPT-4: 28441 05/29/2018 ([id number]) 55621 EST. PATIENT, LEVEL IV Diagnosis: Type 2 diabetes mellitus with hyperglycemia[ICD10: E11.65] Diagnosis: Essential (primary) hypertension[ICD10: I10] Diagnosis: Hypothyroidism, unspecified[ICD10: E03.9] Giselle Knox MD, [facility] CPT-4: 96920 05/15/2018 ([id number]) 11028 EST. PATIENT, LEVEL IV Diagnosis: Essential (primary) hypertension[ICD10: I10] Diagnosis: Type 2 diabetes mellitus with hyperglycemia[ICD10: E11.65] Diagnosis: Hypothyroidism, unspecified[ICD10: E03.9] Diagnosis: Spinal stenosis, lumbar region without neurogenic claudication[ICD10: M48.061] Diagnosis: Vitamin B12 deficiency anemia due to intrinsic factor deficiency[ICD10: D51.0] Giselle Knox MD, [facility] CPT-4: 18998 01/12/2018 ([id number]) 47881 EST. PATIENT, LEVEL IV Diagnosis: Varicose veins of bilateral lower extremities with pain[ICD10: I83.813] Diagnosis: Low back pain[ICD10: M54.5] Diagnosis: Hypothyroidism, unspecified[ICD10: E03.9] Diagnosis: Type 2 diabetes mellitus with hyperglycemia[ICD10: E11.65] Giselle Knox MD, [facility] CPT-4: 04223 11/25/2017 34034 EST. PATIENT, LEVEL IV Diagnosis: Localized edema[ICD10: R60.0] Diagnosis: Vitamin B12 deficiency anemia due to intrinsic factor deficiency[ICD10: D51.0] Chasity Knox MD, [facility] CPT-4: 75673 09/15/2017 01821 EST. PATIENT, LEVEL IV Diagnosis: Essential (primary) hypertension[ICD10: I10] Diagnosis: Type 2 diabetes mellitus with hyperglycemia[ICD10: E11.65] Diagnosis: Vitamin B12 deficiency anemia due to intrinsic factor deficiency[ICD10: D51.0] Chasity Knox MD, [facility] CPT-4: 19457 08/17/2017 [id number] EST. PATIENT, LEVEL IV Diagnosis: Type 2 diabetes mellitus with hyperglycemia[ICD10: E11.65] Diagnosis: Essential (primary) hypertension[ICD10: I10] Diagnosis: Vitamin B12 deficiency anemia due to intrinsic factor deficiency[ICD10: D51.0] Chasity Knox MD, [facility] CPT-4: 91614 07/19/2017 ([id number]) 17644 EST. PATIENT, LEVEL IV Diagnosis: Essential (primary) hypertension[ICD10: I10] Diagnosis: Type 2 diabetes mellitus with hyperglycemia[ICD10: E11.65] Diagnosis: Hypothyroidism, unspecified[ICD10: E03.9] Diagnosis: Vitamin B12 deficiency anemia due to intrinsic factor deficiency[ICD10: D51.0] Diagnosis: Chronic kidney disease, stage 3 (moderate)[ICD10: N18.3] Giselle Knox MD, [facility] CPT-4: 39497 05/19/2017 ([id number]) 49830 EST. PATIENT, LEVEL IV Diagnosis: Essential (primary) hypertension[ICD10: I10] Diagnosis: Type 2 diabetes mellitus with hyperglycemia[ICD10: E11.65] Diagnosis: Hypothyroidism, unspecified[ICD10: E03.9] Giselle Knox MD, [facility] CPT-4: 27986 02/15/2017 [id number]) 34636 EST. PATIENT, LEVEL IV Diagnosis: Type 2 diabetes mellitus with hyperglycemia[ICD10: E11.65] Diagnosis: Cough[ICD10: R05] Diagnosis: Acute upper respiratory infection, unspecified[ICD10: J06.9] Diagnosis: Hypothyroidism, unspecified[ICD10: E03.9] Diagnosis: Chronic kidney disease, stage 3 (moderate)[ICD10: N18.3] Giselle Knox MD, [facility] CPT-4: 10597 11/16/2016 [id number]) 53573 EST. PATIENT, LEVEL IV Diagnosis: Type 2 diabetes mellitus with hyperglycemia[ICD10: E11.65] Diagnosis: Hypothyroidism, unspecified[ICD10: E03.9] Diagnosis: Essential (primary) hypertension[ICD10: I10] Giselle Knox MD, [facility] CPT-4: 39806 08/19/2016 ([id number]) 22692 EST. PATIENT, LEVEL III Diagnosis: Type 2 diabetes mellitus with hyperglycemia[ICD10: E11.65] Giselle Knox MD, [facility] CPT-4: 91982 07/15/2016 ([id number]) 17725 EST. PATIENT, LEVEL IV Diagnosis: Type 2 diabetes mellitus with hyperglycemia[ICD10: E11.65] Diagnosis: Atrophy of thyroid (acquired)[ICD10: E03.4] Diagnosis: Vitamin B12 deficiency anemia due to intrinsic factor deficiency[ICD10: D51.0] Diagnosis: Chronic kidney disease, stage 3 (moderate)[ICD10: N18.3] Diagnosis: Essential (primary) hypertension[ICD10: I10] Jennifer Knox MD, [facility] CPT-4: 12555 06/03/2016 ([id number]) 04300 EST. PATIENT, LEVEL III Diagnosis: Type 2 diabetes mellitus with hyperglycemia[ICD10: E11.65] Diagnosis: Essential (primary) hypertension[ICD10: I10] Diagnosis: Chronic kidney disease, stage 3 (moderate)[ICD10: N18.3] Diagnosis: VACCIN STREP PNEUMONIAE[ICD10: Z23] Giselle Knox MD, [facility] CPT-4: 68717 04/22/2016 07665 EST. PATIENT, LEVEL IV Diagnosis: Type 2 diabetes mellitus with hyperglycemia[ICD10: E11.65] Diagnosis: Essential (primary) hypertension[ICD10: I10] Chasity Knox MD, [facility] CPT-4: 11947 01/22/2016 ([id number]) 39633 EST. PATIENT, LEVEL III Diagnosis: Type 2 diabetes mellitus with hyperglycemia[ICD10: E11.65] Diagnosis: Essential (primary) hypertension[ICD10: I10] Giselle Knox MD, [facility] CPT-4: 83084 10/23/2015 14310 EST. PATIENT, LEVEL IV Diagnosis: Type 2 diabetes mellitus with hyperglycemia[ICD10: E11.65] Diagnosis: Vitamin B12 deficiency anemia due to intrinsic factor deficiency[ICD10: D51.0] Diagnosis: Essential (primary) hypertension[ICD10: I10] Chasity Knox MD, [facility] CPT-4: 66352 09/12/2015 ([id number]) 73907 EST. PATIENT, LEVEL IV Diagnosis: Essential (primary) hypertension[ICD10: I10] Diagnosis: Type 2 diabetes mellitus with hyperglycemia[ICD10: E11.65] Diagnosis: Hypothyroidism, unspecified[ICD10: E03.9] Giselle Knox MD, [facility] CPT-4: 99399 08/05/2015 ([id number]) 89230 EST. PATIENT, LEVEL III Diagnosis: ESSENTIAL HYPERTENSION[ICD9: 401.9] Diagnosis: DIABETES TYPE II[ICD9: 250.00] [facility] Wan MD CPT-4: 14296 04/03/2015 ([id number]) 68655 EST. PATIENT, LEVEL IV Diagnosis: ESSENTIAL HYPERTENSION[ICD9: 401.9] Diagnosis: DIABETES TYPE II[ICD9: 250.00] Diagnosis: Hypothyroidism[ICD9: 244.9] Gislele Knox MD, [facility] CPT-4: 59732 01/30/2015 ([id number]) OFFICE VISIT, NEW - LEVEL 4 Diagnosis: ESSENTIAL HYPERTENSION[ICD9: 401.9] Diagnosis: DIABETES TYPE II[ICD9: 250.00] Diagnosis: Impacted cerumen[ICD9: 380.4] Jennifer Knox MD, [facility] CPT-4: 70291 01/02/2015 Plan of Care Planned Activity Notes [...] time. 08/15/2018 Appointment: Giselle Mccoy WPtel: [phone] [phone] (30 min) Complex 08/15/2018 Patient Education: [...] plan. 06/05/2018 Appointment: Giselle Mccoy WPtel: [phone] [phone] (15 min) Moderate 06/05/2018 Patient Education: [...] of IPRO. 05/22/2018 [phone] ([facility] Complex 05/22/2018 Patient Education: [...] of control. 05/15/2018 Appointment: Giselle Mccoy WPtel: [phone] [phone] (15 min) Moderate 05/15/2018 Patient Education: [...] evaluation-recommend PT 01/12/2018 Appointment: Giselle Mccoy WPtel: [phone] (30 min) Complex 01/12/2018 Patient Education: Patient Medication Summary Completed 01/12/2018 Care Plan: Referral Order SNOMED-CT : [id number] Pending 01/12/2018 Visit Plan: Varicose veins-rx for compression stockings provided and instructed on use Low back pain-recommend xray lumbar spine Hypothyroidism- check labs DM-check Hgb A1c 11/25/2017 Appointment: Giselle Mccoy WPtel: [phone] [phone] [place] (30 min) Complex 11/25/2017 Patient Education: Patient Medication Summary Completed 11/25/2017 Care Plan: X-RAY EXAM L-S SPINE 2/3 VWS LOINC : 23195-9 Pending 11/25/2017 Visit Plan: Edema - Left [...] concerns. 09/15/2017 Appointment: Chasity Caldwell WPtel: [phone] [facility] [place] (30 min) Complex 09/15/2017 Patient Education: [...] control. 08/17/2017 [phone] [place] (15 min) Moderate [...] at home. 07/19/2017 App[facility]ment[phone] (15 min) Moderate 07/19/2017 Patient Education: Patient Medication Summary Completed 07/19/2017 [phone] ([facility] Moderate [...] medications. 05/19/2017 Appointment: Giselle Mccoy WPtel: [phone] [phone] (30 min) Complex 05/19/2017 Patient Education: [...] control. 02/15/2017 Appointment: Giselle Mccoy WPtel: [phone] [phone] (15 min) Moderate 02/15/2017 Patient [...] today 11/16/2016 Appointment: Giselle Mccoy WPtel: [phone] [phone] [place] (15 min) Moderate 11/16/2016 Patient [...] Cancelled 08/19/2016 Care Plan: %Hba1C LOINC : 80835-0 Cancelled 08/19/2016 Care Plan: Lipid Cancelled 08/19/2016 Care Plan: Free T4 patient coming back next week Cancelled 08/19/2016 Appointment: Injection 07/29/2016 Patient Education: Patient Medication Summary Completed 07/29/2016 Appointment: Giselle Mccoy WPtel: [phone] [phone] (30 min) Complex 07/22/2016 Visit Plan: Diabetes-having hypoglycemia in the mornings-insulin adjusted-patient and verbalized understanding of plan. Follow up in 1 month-call sooner if still having low blood sugars. Sinus congestion-start claritin 07/15/2016 Appointment: Giselle Mccoy WPtel: [phone] [phone] (30 min) Complex 07/15/2016 Patient [...] 06/03/2016 [facility]ment: [phone] ([facility] min) Moderate 06/03/2016 Patient Education: [...] 1 MONTH 04/22/2016 Appointment: Giselle Mccoy WPtel: [address] [place], [place] [phone] (15 min) Moderate 04/22/2016 Patient Education: Patient [...] 01/02/2015 Appointment: [phone] [place] ([place] New Patient 01/02/2015 Patient [...] removal of IPRO. . Diabetes Mellitus - I have recommended [...] readings at home. COME BACK NEXT WEEK FOR BLOOD WORK [...]
--- OUTSIDE RECORDS SUMMARY | 2019-01-23 09:02 | XMS REPORT | CCD ---
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 [employer] Name Role Phone PP Unavailable CCM Unavailable Summary Purpose Interface Exchange Insurance Providers Payer name Policy type / Coverage type Covered constitution party ID Effective Begin Date Effective End Date [facility] Commercial Insurance [id number] Unknown Family history Runs in the family [...] Start Date Stop Date Status Fill Instructions [place] Solostar U-100 Insulin 100 unit/mL (3 mL) subcutaneous pen RxNorm: 937113 INJECT 35 UNITS UNDER THE SKIN EVERY NIGHT AT BEDTIME 08/22/2018 09/24/2020 Active carvedilol 12.5 mg tablet RxNorm: 724760 TAKE ONE TABLET BY MOUTH TWICE A DAY 08/07/2018 08/01/2019 Active Humulin 70/30 U-100 Insulin 100 unit/mL subcutaneous suspension RxNorm: 230517 Unit(s) INJECT 18 UNITS UNDER THE SKIN EVERY MORNING 06/20/2018 09/11/2018 Active Humulin 70/30 U-100 Insulin 100 unit/mL subcutaneous suspension RxNorm: 306245 INJECT 18 UNITS UNDER THE SKIN EVERY MORNING 06/20/2018 06/19/2018 Inactive terazosin 2 mg capsule RxNorm: 183382 TAKE ONE CAPSULE BY MOUTH DAILY 06/09/2018 03/05/2019 Active Humulin 70/30 U-100 Insulin 100 unit/mL subcutaneous suspension RxNorm: 618174 18 Unit(s) SQ QAM 05/15/2018 06/19/2018 Inactive levothyroxine 100 mcg tablet RxNorm: 468753 1 Tablet(s) PO daily 05/11/2018 09/07/2018 Active carvedilol 12.5 mg tablet RxNorm: 834293 TAKE ONE TABLET BY MOUTH TWICE A DAY 05/05/2018 08/06/2018 Inactive losartan 100 mg tablet RxNorm: 232715 TAKE ONE TABLET BY MOUTH DAILY 03/24/2018 06/10/2020 Active terazosin 2 mg capsule RxNorm: 779591 TAKE ONE CAPSULE BY MOUTH DAILY 03/07/2018 06/08/2018 Inactive cyanocobalamin (vit B-12) 1,000 mcg/mL injection solution RxNorm: 091302 1 Milliliter(s) Inj 01/12/2018 01/12/2018 Inactive Lantus Solostar U-100 Insulin 100 unit/mL (3 mL) subcutaneous pen RxNorm: 216635 Unit(s) INJECT 24 UNITS UNDER THE SKIN EVERY NIGHT AT BEDTIME 01/12/2018 08/21/2018 Inactive Humulin 70/30 U-100 Insulin 100 unit/mL subcutaneous suspension RxNorm: 813243 INJECT 18 UNITS UNDER THE SKIN EVERY MORNING 11/14/2017 03/05/2018 Inactive carvedilol 12.5 mg tablet RxNorm: 126125 TAKE ONE TABLET BY MOUTH TWICE A DAY 11/07/2017 05/04/2018 Inactive cyanocobalamin (vit B-12) 1,000 mcg/mL injection solution RxNorm: 973324 Milliliter(s) Inj 09/15/2017 09/15/2017 Inactive terazosin 2 mg capsule RxNorm: 576252 Capsule(s) TAKE ONE CAPSULE BY MOUTH DAILY 09/07/2017 03/05/2018 Inactive Lantus Solostar 100 unit/mL (3 mL) subcutaneous insulin pen RxNorm: 679743 INJECT 35 UNITS UNDER THE SKIN EVERY NIGHT AT BEDTIME 08/29/2017 01/11/2018 Inactive Contour Test Strips RxNorm: TEST BLOOD SUGAR TWO TIMES A DAY E11.65 08/22/2017 02/22/2019 Active One Touch Test strips RxNorm: 1 test Miscellaneous BID 08/22/2017 08/16/2018 Inactive Tamiflu 75 mg capsule RxNorm: 216925 1 Capsule(s) PO daily 08/17/2017 08/16/2017 Inactive Tamiflu 75 mg capsule RxNorm: 729479 1 Capsule(s) PO daily 08/17/2017 08/26/2017 Inactive cyanocobalamin (vit B-12) 1,000 mcg/mL injection solution RxNorm: 152722 1 Milliliter(s) Inj 08/17/2017 08/17/2017 Inactive carvedilol 12.5 mg tablet RxNorm: 857387 TAKE ONE TABLET BY MOUTH TWICE A DAY 08/10/2017 11/06/2017 Inactive cyanocobalamin (vit B-12) 1,000 mcg/mL injection solution RxNorm: 875900 1 Milliliter(s) Inj 07/19/2017 07/19/2017 Inactive Humulin 70/30 100 unit/mL subcutaneous suspension RxNorm: 019368 14 Unit(s) SQ QAM 07/06/2017 05/14/2018 Inactive Lantus Solostar 100 unit/mL (3 mL) subcutaneous insulin pen RxNorm: 281380 26 Unit(s) SQ QHS 07/06/2017 08/28/2017 Inactive losartan 100 mg tablet RxNorm: 193182 TAKE ONE TABLET BY MOUTH DAILY 06/07/2017 03/23/2018 Inactive Lantus Solostar 100 unit/mL (3 mL) subcutaneous insulin pen RxNorm: 060635 28 Unit(s) SQ QHS 05/19/2017 07/05/2017 Inactive cyanocobalamin (vit B-12) 1,000 mcg/mL injection solution RxNorm: 793239 1 Milliliter(s) Inj 05/19/2017 05/19/2017 Inactive terazosin 2 mg capsule RxNorm: 994494 TAKE ONE CAPSULE BY MOUTH DAILY 05/16/2017 09/06/2017 Inactive cyanocobalamin (vit B-12) 1,000 mcg/mL injection solution RxNorm: 300849 1 Milliliter(s) Inj 04/06/2017 04/06/2017 Inactive cyanocobalamin (vit B-12) 1,000 mcg/mL injection solution RxNorm: 917721 Milliliter(s) Inj 01/04/2017 01/04/2017 Inactive Humulin 70/30 U-100 Insulin 100 unit/mL subcutaneous suspension RxNorm: 555112 18 Unit(s) SQ QAM 12/22/2016 06/04/2017 Inactive cyanocobalamin (vit B-12) 1,000 mcg/mL injection solution RxNorm: 298866 1 Milliliter(s) Inj 12/10/2016 12/10/2016 Inactive Zithromax Z-Jose 250 mg tablet RxNorm: 343763 1 Tablet(s) PO UD 11/16/2016 11/20/2016 Inactive terazosin 2 mg capsule RxNorm: 300011 TAKE ONE CAPSULE BY MOUTH DAILY 11/08/2016 05/06/2017 Inactive Lantus Solostar 100 unit/mL (3 mL) subcutaneous insulin pen RxNorm: 939842 INJECT 35 UNITS UNDER THE SKIN EVERY NIGHT AT BEDTIME 10/22/2016 07/18/2017 Inactive cyanocobalamin (vit B-12) 1,000 mcg/mL injection solution RxNorm: 906226 Milliliter(s) Inj 10/13/2016 10/13/2016 Inactive cyanocobalamin (vit B-12) 1,000 mcg/mL injection solution RxNorm: 501272 1 Milliliter(s) Inj 09/03/2016 09/03/2016 Inactive Contour Test Strips RxNorm: TEST BLOOD SUGAR TWO TIMES A DAY E11.65 08/19/2016 08/21/2017 Inactive carvedilol 12.5 mg tablet RxNorm: 010299 TAKE ONE TABLET BY MOUTH TWICE A DAY 08/05/2016 01/01/2017 Inactive carvedilol 12.5 mg tablet RxNorm: 19990924 TAKE ONE TABLET BY MOUTH TWICE A DAY 08/05/2016 01/01/2017 Inactive carvedilol 12.5 mg tablet RxNorm: 798390 1 Tablet(s) PO BID 08/04/2016 01/30/2017 Inactive cyanocobalamin (vit B-12) 1,000 mcg/mL injection solution RxNorm: 163058 Milliliter(s) Inj 07/29/2016 07/29/2016 Inactive Lantus Solostar 100 unit/mL (3 mL) subcutaneous insulin pen RxNorm: 014098 30 Unit(s) SQ QHS 07/15/2016 05/18/2017 Inactive Humulin 70/30 100 unit/mL subcutaneous suspension RxNorm: 660216 18 Unit(s) SQ QA 07/15/2016 12/21/2016 Inactive losartan 100 mg tablet RxNorm: 266429 TAKE ONE TABLET BY MOUTH DAILY 07/08/2016 06/02/2017 Inactive terazosin 2 mg capsule RxNorm: 886501 TAKE ONE CAPSULE BY MOUTH DAILY 06/10/2016 11/06/2016 Inactive cyanocobalamin (vit B-12) 1,000 mcg/mL injection solution RxNorm: 472567 1 Milliliter(s) Inj 06/03/2016 06/03/2016 Inactive Humulin 70/30 100 unit/mL subcutaneous suspension RxNorm: 987735 Unit(s) INJECT 10 UNITS UNDER THE SKIN 06/01/2016 07/14/2016 Inactive Request already responded to by other means (e.g. phone or fax) Humulin 70/30 100 unit/mL subcutaneous suspension RxNorm: 030199 INJECT 10 UNITS UNDER THE SKIN BEFORE MEALS 06/01/2016 05/31/2016 Inactive Request already responded to by other means (e.g. phone or fax) Lantus Solostar 100 unit/mL (3 mL) subcutaneous insulin pen RxNorm: 466215 35 Unit(s) SQ [facility] 05/26/2016 07/14/2016 Inactive Humulin 70/30 100 unit/mL subcutaneous suspension RxNorm: 760270 10 Unit(s) SQ [facility] 05/24/2016 10/02/2016 Inactive Humulin 70/30 100 unit/mL subcutaneous suspension RxNorm: 526668 21 Unit(s) SQ [facility] 05/24/2016 05/23/2016 Inactive Lantus Solostar 100 unit/mL (3 mL) subcutaneous insulin pen RxNorm: 094854 32 Unit(s) SQ [facility] 04/22/2016 05/25/2016 Inactive Humulin 70/30 100 unit/mL subcutaneous suspension RxNorm: 643817 21 Unit(s) SQ [facility] 04/22/2016 05/24/2016 Inactive with breakfast hydrochlorothiazide 25 mg tablet RxNorm: 117492 TAKE ONE TABLET BY MOUTH DAILY 02/04/2016 02/16/2016 Inactive terazosin 2 mg capsule RxNorm: 274977 Capsule(s) TAKE ONE CAPSULE BY MOUTH DAILY. 12/01/2015 05/28/2016 Inactive Humulin 70/30 100 unit/mL subcutaneous suspension RxNorm: 281312 INJECT 10 UNITS UNDER THE SKIN BEFORE MEALS 11/06/2015 03/16/2016 Inactive hydrochlorothiazide 25 mg tablet RxNorm: 173377 1 Tablet(s) PO daily 10/06/2015 02/02/2016 Inactive cyanocobalamin (vit B-12) 1,000 mcg/mL injection solution RxNorm: 115962 Milliliter(s) Inj 09/15/2015 09/15/2015 Inactive Humulin 70/30 100 unit/mL subcutaneous suspension RxNorm: 195588 INJECT 10 UNITS UNDER THE SKIN BEFORE MEALS 09/08/2015 10/10/2015 Inactive cyanocobalamin (vit B-12) 1,000 mcg/mL injection solution RxNorm: 366417 Milliliter(s) Inj 09/08/2015 09/08/2015 Inactive terazosin 2 mg capsule RxNorm: 111915 TAKE ONE CAPSULE BY MOUTH DAILY. DISCONTINUE 5 MG CAPSULES 09/01/2015 11/29/2015 Inactive cyanocobalamin (vit B-12) 1,000 mcg/mL injection solution RxNorm: 774779 Milliliter(s) Inj 09/01/2015 09/01/2015 Inactive cyanocobalamin (vit B-12) 1,000 mcg/mL injection solution RxNorm: 795041 Milliliter(s) Inj 08/25/2015 08/25/2015 Inactive levothyroxine 112 mcg tablet RxNorm: 965567 1 Tablet(s) PO daily 08/06/2015 02/14/2017 Inactive Lantus Solostar 100 unit/mL (3 mL) subcutaneous insulin pen RxNorm: 028531 35 Unit(s) SQ QHS 08/06/2015 04/21/2016 Inactive Humulin 70/30 100 unit/mL subcutaneous suspension RxNorm: 958811 20 Unit(s) SQ AC 08/05/2015 04/21/2016 Inactive with breakfast carvedilol 12.5 mg tablet RxNorm: 195214 1 Tablet(s) PO BID 08/05/2015 01/31/2016 Inactive Humulin 70/30 100 unit/mL subcutaneous suspension RxNorm: 330475 10 Unit(s) SQ AC 07/22/2015 08/04/2015 Inactive losartan 100 mg tablet RxNorm: 956636 TAKE ONE TABLET BY MOUTH DAILY 06/25/2015 06/18/2016 Inactive Lantus Solostar 100 unit/mL (3 mL) subcutaneous insulin pen RxNorm: 753597 30 Unit(s) SQ QHS 06/18/2015 08/05/2015 Inactive terazosin 2 mg capsule RxNorm: 612746 1 Capsule(s) PO daily 04/14/2015 08/11/2015 Inactive DC the 5mg order terazosin 2 mg capsule RxNorm: 937976 1 Capsule(s) PO daily 04/14/2015 04/13/2015 Inactive Synthroid 25 mcg tablet RxNorm: 699945 1 Tablet(s) PO daily 04/11/2015 02/14/2017 Inactive Synthroid 25 mcg tablet RxNorm: 191643 1 Tablet(s) PO daily 04/11/2015 04/10/2015 Inactive Lantus Solostar 100 unit/mL (3 mL) subcutaneous insulin pen RxNorm: 675803 30 Unit(s) SQ QHS 04/04/2015 06/17/2015 Inactive terazosin 5 mg tablet RxNorm: 780099 1 Tablet(s) PO daily 04/03/2015 04/13/2015 Inactive Lantus Solostar 100 unit/mL (3 mL) subcutaneous insulin pen RxNorm: 546489 25 Unit(s) SQ QHS 01/08/2015 04/03/2015 Inactive carvedilol 25 mg tablet RxNorm: 401637 1 Tablet(s) PO BID 01/02/2015 01/31/2015 Inactive terazosin 5 mg tablet RxNorm: 932987 1 Tablet(s) PO daily 01/02/2015 01/01/2015 Inactive levothyroxine 125 mcg tablet RxNorm: 378931 1 Tablet(s) PO daily 01/02/2015 01/31/2015 Inactive terazosin 5 mg tablet RxNorm: 096510 1/2 Tablet(s) PO daily 01/02/2015 01/31/2015 Inactive losartan 100 mg tablet RxNorm: 898856 1 Tablet(s) PO daily 12/24/2014 04/22/2015 Inactive losartan 100 mg tablet RxNorm: 909676 1 Tablet(s) PO daily 12/24/2014 12/23/2014 Inactive Contour Test Strips RxNorm: Miscellaneous test blood sugars BID 12/06/2014 12/05/2014 Inactive dx 250.00 Contour Test Strips RxNorm: Miscellaneous test blood sugars BID or UD 12/06/2014 06/23/2015 Inactive dx 250.00 [SAVINGS FOR NON-COVERED DRUGS -- [id number], PCN: [id number], Group: [id number], ID# [id number], Questions: . THIS IS NOT INSURANCE.] folic acid 1 mg tablet RxNorm: 562306 1 Tablet(s) PO QHS No Start Date Active Microlet Lancet RxNorm: Miscellaneous Test BID or Ud No Start Date Active 250.0 aspirin 81 mg tablet,delayed release RxNorm: 074982 1 Tablet(s) PO daily No Start Date Active Stool Softener 100 mg capsule RxNorm: 8821580 1 Capsule(s) PO every other day No Start Date Active folic acid oral RxNorm: 4511 oral No Start Date 05/19/2017 Inactive cyanocobalamin (vit B-12) 100 mcg tablet RxNorm: 224366 1 Tablet(s) PO daily No Start Date 02/14/2017 Inactive hydrochlorothiazide 25 mg tablet RxNorm: 262472 1 Tablet(s) PO daily No Start Date 10/05/2015 Inactive Stool Softener 100 mg capsule RxNorm: 2237247 1 Capsule(s) PO daily No Start Date 05/18/2017 Inactive Humulin 70/30 100 unit/mL subcutaneous suspension RxNorm: 250676 20 Unit(s) SQ QAM No Start Date 07/21/2015 Inactive levothyroxine 100 mcg tablet RxNorm: 941403 1 Tablet(s) PO daily No Start Date 05/10/2018 Inactive Lantus Solostar 100 unit/mL (3 mL) subcutaneous insulin pen RxNorm: 720530 20 Unit(s) SQ QHS No Start Date 01/07/2015 Inactive ferrous sulfate 325 mg (65 mg iron) tablet RxNorm: 899994 1 Tablet(s) PO daily No Start Date 05/18/2017 Inactive Medication Administered Medication Codes Instructions Start Date Status cyanocobalamin (vit B-12) 1,000 mcg/mL injection solution RxNorm: 933196 1Milliliter 01/12/2018 No longer Active cyanocobalamin (vit B-12) 1,000 mcg/mL injection solution RxNorm: 458170 Milliliter 09/15/2017 No longer Active cyanocobalamin (vit B-12) 1,000 mcg/mL injection solution RxNorm: 059867 1Milliliter 08/17/2017 No longer Active cyanocobalamin (vit B-12) 1,000 mcg/mL injection solution RxNorm: 786747 1Milliliter 07/19/2017 No longer Active cyanocobalamin (vit B-12) 1,000 mcg/mL injection solution RxNorm: 696570 1Milliliter 05/19/2017 No longer Active cyanocobalamin (vit B-12) 1,000 mcg/mL injection solution RxNorm: 705805 1Milliliter 04/06/2017 No longer Active cyanocobalamin (vit B-12) 1,000 mcg/mL injection solution RxNorm: 127062 Milliliter 01/04/2017 No longer Active cyanocobalamin (vit B-12) 1,000 mcg/mL injection solution RxNorm: 501897 1Milliliter 12/10/2016 No longer Active cyanocobalamin (vit B-12) 1,000 mcg/mL injection solution RxNorm: 757646 Milliliter 10/13/2016 No longer Active cyanocobalamin (vit B-12) 1,000 mcg/mL injection solution RxNorm: 165554 1Milliliter 09/03/2016 No longer Active cyanocobalamin (vit B-12) 1,000 mcg/mL injection solution RxNorm: 880782 Milliliter 07/29/2016 No longer Active cyanocobalamin (vit B-12) 1,000 mcg/mL injection solution RxNorm: 269248 1Milliliter 06/03/2016 No longer Active cyanocobalamin (vit B-12) 1,000 mcg/mL injection solution RxNorm: 778141 Milliliter 09/15/2015 No longer Active cyanocobalamin (vit B-12) 1,000 mcg/mL injection solution RxNorm: 124869 Milliliter 09/08/2015 No longer Active cyanocobalamin (vit B-12) 1,000 mcg/mL injection solution RxNorm: 295109 Milliliter 09/01/2015 No longer Active cyanocobalamin (vit B-12) 1,000 mcg/mL injection solution RxNorm: 527573 Milliliter 08/25/2015 No longer Active Immunizations Vaccine Codes Date Status Influenza CVX: 141 04/28/2018 completed Influenza CVX: 141 05/18/2017 completed Pneumococcal (Adult) CVX: 133 04/22/2016 completed Influenza CVX: 141 05/07/2015 completed Assessments Condition Codes Effective Dates Essential (primary) hypertension ICD-10: I10 ICD-9: 401.9 08/15/2018 Chronic kidney disease, stage 3 (moderate) ICD-10: N18.3 ICD-9: 585.3 08/15/2018 Type 2 diabetes mellitus with hyperglycemia ICD-10: E11.65 ICD-9: 250.00 08/15/2018 Low back pain ICD-10: M54.5 ICD-9: [...] ICD-9: 285.9 08/06/2015 Hypothyroidism ICD-9: 244.9 04/11/2015 DIABETES TYPE II ICD-9: 250.00 04/03/2015 ESSENTIAL HYPERTENSION ICD-9: 401.9 04/03/2015 Impacted cerumen ICD-9: 380.4 01/02/2015 Reason [...] Code Item Item Code Result Date %Hba1C Hxi065 % HbA1c 67464- 6 7.4 % 08/15/2018 %Hba1C Prs434 Gluc Ave 166 mg/dL 08/15/2018 Cbc With Differential Ord2 WBC 6.42 [...] 29.3 pg 08/15/2018 Cbc With Differential Ord2 [place]% 10.9 % 08/15/2018 Cbc With Differential Ord2 [...] 2.66 K/ul 08/15/2018 Cbc With Differential Ord2 [place] ABS# 0.7 K/ul 08/15/2018 Cbc With Differential Ord2 Eos ABS# 0.2 K/ul 08/15/2018 Cbc With Differential Ord2 Baso ABS# 0.0 K/ul 08/15/2018 Comp Metabolic Ewm590 NA 139 mEq/L 08/15/2018 Comp Metabolic Rer504 K 4.0 mEq/L 08/15/2018 Comp Metabolic Wam588 CL 107 mEq/L 08/15/2018 Comp Metabolic Akj263 CO2 25.0 mEq/L 08/15/2018 Comp Metabolic Kjc656 ANION GAP 11 08/15/2018 Comp Metabolic Pax722 GLUCOSE 142 mg/dL 08/15/2018 Comp Metabolic Xiw275 Creat 0.9 mg/dL 08/15/2018 Comp Metabolic Qls913 eGFR 64 ml/min/1.73m2 08/15/2018 Comp Metabolic Lwa781 BUN 22 mg/dL 08/15/2018 Comp Metabolic Qro872 B/C Ratio 24.4 Ratio 08/15/2018 Comp Metabolic Bnj466 CALCIUM 9.3 mg/dL 08/15/2018 Comp Metabolic Btt605 ALK PHOS 83 U/L 08/15/2018 Comp Metabolic Tlo641 AST(SGOT) 35 U/L 08/15/2018 Comp Metabolic Xua614 ALT(SGPT) 19 U/L 08/15/2018 Comp Metabolic Wyl921 BILI T 0.6 mg/dL 08/15/2018 Comp Metabolic Jzc495 ALBUMIN 3.7 g/dL 08/15/2018 Comp Metabolic Ayk916 TPRO 6.3 g/dL 08/15/2018 Comp Metabolic Grd631 GLOB 2.6 g/dL 08/15/2018 Comp Metabolic Dzd401 A/G Ratio 1.5 Ratio 08/15/2018 Comp Metabolic Kyu537 Osmo 283 mOsmo 08/15/2018 Tsh Ord6 TSH (3rd IS) 2.43 uIU/mL 08/15/2018 Tsh Ord6 TSH (3rd IS) 0.97 uIU/mL 05/15/2018 %Hba1C Syr530 % HbA1c 40655- 6 7.8 % 05/15/2018 %Hba1C Tsx821 Gluc Ave 177 mg/dL 05/15/2018 Comp Metabolic Uwb312 NA 142 mEq/L 05/15/2018 Comp Metabolic Hyr575 K 4.0 mEq/L 05/15/2018 Comp Metabolic Izu740 CL 107 mEq/L 05/15/2018 Comp Metabolic Duc412 CO2 28.0 mEq/L 05/15/2018 Comp Metabolic Fuf213 ANION GAP 11 05/15/2018 Comp Metabolic Fmk151 GLUCOSE 211 mg/dL 05/15/2018 Comp Metabolic Dew155 Creat 0.9 mg/dL 05/15/2018 Comp Metabolic Qpg789 eGFR 61 ml/min/1.73m2 05/15/2018 Comp Metabolic Lau781 BUN 21 mg/dL 05/15/2018 Comp Metabolic Rpz355 B/C Ratio 22.6 Ratio 05/15/2018 Comp Metabolic Mzp470 CALCIUM 9.1 mg/dL 05/15/2018 Comp Metabolic Fdw591 ALK PHOS 85 U/L 05/15/2018 Comp Metabolic Fbj987 AST(SGOT) 36 U/L 05/15/2018 Comp Metabolic Oza451 ALT(SGPT) 19 U/L 05/15/2018 Comp Metabolic Gmh149 BILI T 0.6 mg/dL 05/15/2018 Comp Metabolic Trf551 ALBUMIN 3.8 g/dL 05/15/2018 Comp Metabolic Cdp871 TPRO 6.2 g/dL 05/15/2018 Comp Metabolic Hjp414 GLOB 2.4 g/dL 05/15/2018 Comp Metabolic Ezb300 A/G Ratio 1.6 Ratio 05/15/2018 Comp Metabolic Sgk919 Osmo 292 mOsmo 05/15/2018 Free T4 Mtl302 FREE T4 1.21 ng/dL 05/15/2018 Comp Metabolic Thf069 NA 139 mEq/L 11/28/2017 Comp Metabolic Nim747 K 4.1 mEq/L 11/28/2017 Comp Metabolic Afj926 CL 105 mEq/L 11/28/2017 Comp Metabolic Tau532 CO2 26.0 mEq/L 11/28/2017 Comp Metabolic Jhl666 ANION GAP 12 11/28/2017 Comp Metabolic Xka191 GLUCOSE 132 mg/dL 11/28/2017 Comp Metabolic Kuy875 Creat 0.9 mg/dL 11/28/2017 Comp Metabolic Edr455 eGFR 66 ml/min/1.73m2 11/28/2017 Comp Metabolic Ybb093 BUN 17 mg/dL 11/28/2017 Comp Metabolic Wgm918 B/C Ratio 19.5 Ratio 11/28/2017 Comp Metabolic Fwy740 CALCIUM 9.1 mg/dL 11/28/2017 Comp Metabolic Abj058 ALK PHOS 78 U/L 11/28/2017 Comp Metabolic Rsq571 AST(SGOT) 35 U/L 11/28/2017 Comp Metabolic Scl701 ALT(SGPT) 17 U/L 11/28/2017 Comp Metabolic Ybi410 BILI T 0.6 mg/dL 11/28/2017 Comp Metabolic Iwv009 ALBUMIN 3.9 g/dL 11/28/2017 Comp Metabolic Ugh512 TPRO 6.4 g/dL 11/28/2017 Comp Metabolic Rix893 GLOB 2.5 g/dL 11/28/2017 Comp Metabolic Usy913 A/G Ratio 1.6 Ratio 11/28/2017 Comp Metabolic Tbd750 Osmo 281 mOsmo 11/28/2017 Tsh Ord6 TSH (3rd IS) 1.14 uIU/mL 11/28/2017 Free T4 Zmv002 FREE T4 1.05 ng/dL 11/28/2017 Cbc With [...] 39.8 % 11/25/2017 Cbc With Differential Ord2 [place]% 10.2 % 11/25/2017 Cbc With Differential Ord2 MCH 29.8 pg 11/25/2017 Cbc With Differential Ord2 MCHC 32.5 pg 11/25/2017 Cbc With Differential Ord2 Eos% 3.3 % 11/25/2017 Cbc With Differential Ord2 PLT 175 K/ul 11/25/2017 Cbc With Differential Ord2 Baso% 0.3 % 11/25/2017 Cbc With Differential Ord2 Neut ABS# 2.99 K/ul 11/25/2017 Cbc With Differential Ord2 RDW 14.5 % 11/25/2017 Cbc With Differential Ord2 Lymph ABS# 2.56 K/ul 11/25/2017 Cbc With Differential Ord2 [place] ABS# 0.7 K/ul 11/25/2017 Cbc With Differential Ord2 Eos ABS# 0.2 K/ul 11/25/2017 Cbc With Differential Ord2 Baso ABS# 0.0 K/ul 11/25/2017 %Hba1C Axe504 % HbA1c 13187- 6 7.7 % 11/25/2017 %Hba1C Kmk414 Gluc Ave 174 mg/dL 11/25/2017 Comp Metabolic Evn229 NA 140 mEq/L 05/19/2017 Comp Metabolic Dtq925 K 3.8 mEq/L 05/19/2017 Comp Metabolic Pbl147 CL 108 mEq/L 05/19/2017 Comp Metabolic Hpp267 CO2 21.0 mEq/L 05/19/2017 Comp Metabolic Kxs777 ANION GAP 15 05/19/2017 Comp Metabolic Ppk967 GLUCOSE 207 mg/dL 05/19/2017 Comp Metabolic Sju628 Creat 1.0 mg/dL 05/19/2017 Comp Metabolic Rel632 eGFR 55 ml/min/1.73m2 05/19/2017 Comp Metabolic Pai124 BUN 21 mg/dL 05/19/2017 Comp Metabolic Xez583 B/C Ratio 20.4 Ratio 05/19/2017 Comp Metabolic Zmr883 CALCIUM 9.1 mg/dL 05/19/2017 Comp Metabolic Tmz614 ALK PHOS 74 U/L 05/19/2017 Comp Metabolic Bhu090 AST(SGOT) 32 U/L 05/19/2017 Comp Metabolic Uua065 ALT(SGPT) 15 U/L 05/19/2017 Comp Metabolic Eay500 BILI T 0.6 mg/dL 05/19/2017 Comp Metabolic Abr103 ALBUMIN 3.9 g/dL 05/19/2017 Comp Metabolic Rfi618 TPRO 6.2 g/dL 05/19/2017 Comp Metabolic Gby778 GLOB 2.3 g/dL 05/19/2017 Comp Metabolic Eui443 A/G Ratio 1.6 Ratio 05/19/2017 Comp Metabolic Kgf699 Osmo 288 mOsmo 05/19/2017 Tsh Ord6 hTSH II 1.73 uIU/mL 05/19/2017 %Hba1C Cdk788 % HbA1c 74228- 6 6.8 % 05/19/2017 %Hba1C Qgr244 Gluc Ave 148 mg/dL 05/19/2017 Free T4 Zxm572 FREE T4 1.10 ng/dL 05/19/2017 B12 Kpk728 B12 >1500.00 pg/ml 05/19/2017 Cbc With Differential Ord2 WBC 8.04 K/ul 05/19/2017 Cbc With Differential Ord2 RBC 3.93 M/ul 05/19/2017 Cbc With Differential Ord2 HGB 11.9 g/dl 05/19/2017 Cbc With Differential Ord2 HCT 36.8 % 05/19/2017 Cbc With Differential Ord2 Neut% 70.8 % 05/19/2017 Cbc With Differential Ord2 Lymph% 20.4 % 05/19/2017 Cbc With Differential Ord2 MCV 93.6 fl 05/19/2017 Cbc With Differential Ord2 MCH 30.3 pg 05/19/2017 Cbc With Differential Ord2 [place]% 6.8 % 05/19/2017 Cbc With Differential Ord2 [...] 1.64 K/ul 05/19/2017 Cbc With Differential Ord2 [place] ABS# 0.6 K/ul 05/19/2017 Cbc With Differential Ord2 Eos ABS# 0.2 K/ul 05/19/2017 Cbc With Differential Ord2 Baso ABS# 0.0 K/ul 05/19/2017 Cbc With Differential Ord2 WBC 6.80 K/ul 12/10/2016 Cbc With Differential Ord2 RBC 4.17 M/ul 12/10/2016 Cbc With Differential Ord2 HGB 12.2 g/dl 12/10/2016 Cbc With Differential Ord2 Neut% 53.7 % 12/10/2016 Cbc With Differential Ord2 HCT 38.5 % 12/10/2016 Cbc With Differential Ord2 MCV 92.3 fl 12/10/2016 Cbc With Differential Ord2 Lymph% 36.8 % 12/10/2016 Cbc With Differential Ord2 [place]% 7.1 % 12/10/2016 Cbc With Differential Ord2 MCH 29.3 pg 12/10/2016 Cbc With Differential Ord2 Eos% 2.1 % 12/10/2016 Cbc With Differential Ord2 MCHC 31.7 pg 12/10/2016 Cbc With Differential Ord2 PLT 190 K/ul 12/10/2016 Cbc With Differential Ord2 Baso% 0.3 % 12/10/2016 Cbc With Differential Ord2 Neut ABS# 3.66 K/ul 12/10/2016 Cbc With Differential Ord2 RDW 14.6 % 12/10/2016 Cbc With Differential Ord2 Lymph ABS# 2.50 K/ul 12/10/2016 Cbc With Differential Ord2 [place] ABS# 0.5 K/ul 12/10/2016 Cbc With Differential Ord2 Eos ABS# 0.1 K/ul 12/10/2016 Cbc With Differential Ord2 Baso ABS# 0.0 K/ul 12/10/2016 B12 Lvj524 B12 222.00 pg/ml 12/10/2016 Comp Metabolic Kwu238 NA 138 mEq/L 11/16/2016 Comp Metabolic Yzz443 K 3.8 mEq/L 11/16/2016 Comp Metabolic Wdw263 CL 103 mEq/L 11/16/2016 Comp Metabolic Mba246 CO2 26.0 mEq/L 11/16/2016 Comp Metabolic Mve826 ANION GAP 13 11/16/2016 Comp Metabolic Hgs954 GLUCOSE 235 mg/dL 11/16/2016 Comp Metabolic Cyq222 Creat 0.9 mg/dL 11/16/2016 Comp Metabolic Snx537 eGFR 62 ml/min/1.73m2 11/16/2016 Comp Metabolic Vmv183 BUN 20 mg/dL 11/16/2016 Comp Metabolic Bms511 B/C Ratio 21.7 Ratio 11/16/2016 Comp Metabolic Fbc192 CALCIUM 8.9 mg/dL 11/16/2016 Comp Metabolic Kuz752 ALK PHOS 75 U/L 11/16/2016 Comp Metabolic Wuj917 AST(SGOT) 30 U/L 11/16/2016 Comp Metabolic Ktb835 ALT(SGPT) 13 U/L 11/16/2016 Comp Metabolic Auc680 BILI T 0.6 mg/dL 11/16/2016 Comp Metabolic Leo524 ALBUMIN 3.8 g/dL 11/16/2016 Comp Metabolic Obc743 TPRO 6.8 g/dL 11/16/2016 Comp Metabolic Lsv592 GLOB 3.1 g/dL 11/16/2016 Comp Metabolic Ybo497 A/G Ratio 1.2 Ratio 11/16/2016 Comp Metabolic Fqc720 Osmo 286 mOsmo 11/16/2016 Free T4 Kks328 FREE T4 1.03 ng/dL 11/16/2016 Tsh Ord6 hTSH II 2.50 uIU/mL 11/16/2016 %Hba1C Nam590 % HbA1c 81030- 6 7.5 % 11/16/2016 %Hba1C Lma844 Gluc Ave 169 mg/dL 11/16/2016 Lipid Ord30 CHOL 212 mg/dL 05/21/2016 Lipid Ord30 HDL 43.0 mg/dl 05/21/2016 Lipid Ord30 TRIG 164 mg/dL 05/21/2016 Lipid Ord30 LDL 136 mg/dL 05/21/2016 Lipid Ord30 C/HDL 4.9 Ratio 05/21/2016 B12 Dnz565 B12 159.00 pg/ml 05/21/2016 %Hba1C Hev101 % HbA1c 70558- 6 7.5 % 05/21/2016 %Hba1C Psd997 Gluc Ave 169 mg/dL 05/21/2016 Tsh Ord6 hTSH II 3.18 uIU/mL 05/21/2016 Folate Ord36 Folate >23.80 ng/mL 05/21/2016 Free T4 Kex551 FREE T4 1.03 ng/dL 05/21/2016 CHEM 14 [id number] AST 33 U/L 03/15/2016 CHEM 14 [id number] ALT 13 U/L 03/15/2016 CHEM 14 9019360 BUN 18 mg/dL 03/15/2016 CHEM 14 8232681 ALBUMIN 3.9 g/dL 03/15/2016 CHEM 14 1096063 CHLORIDE 105 mmol/L 03/15/2016 CHEM 14 5933926 Bili Total 0.4 mg/dL 03/15/2016 CHEM 14 5370752 ALK PHOS 60 U/L 03/15/2016 CHEM 14 4579415 SODIUM 138 mmol/L 03/15/2016 CHEM 14 6727147 CREATININE 0.99 mg/dL 03/15/2016 CHEM 14 5727641 CALCIUM 9.4 mg/dL 03/15/2016 CHEM 14 4062477 POTASSIUM 3.8 mmol/L 03/15/2016 CHEM 14 2961738 TOTAL PROTEIN 6.7 g/dL 03/15/2016 CHEM 14 0559518 GLUCOSE 109 mg/dL 03/15/2016 CHEM 14 1304112 Bicarbonate 27 mmol/L 03/15/2016 CHEM 14 3652884 AGAP 6 mmol/L 03/15/2016 GFR CALC 2062065 GFR Non Afr Amr 54 mL/min 03/15/2016 GFR CALC 7025627 GFR Afr Amr >60 mL/min 03/15/2016 B12 Crc041 B12 46.00 pg/ml 08/07/2015 Iron Ord72 Iron [...] Ord2 RDW 16.6 % 08/05/2015 Free T4 Cek358 FREE T4 1.33 ng/dL 08/05/2015 Comp Metabolic Ohj878 NA 137 mEq/L 08/05/2015 Comp Metabolic Fha292 K 4.5 mEq/L 08/05/2015 Comp Metabolic Sod489 CL 104 mEq/L 08/05/2015 Comp Metabolic Mef192 CO2 26.0 mEq/L 08/05/2015 Comp Metabolic Aio781 ANION GAP 12 08/05/2015 Comp Metabolic Ykd494 GLUCOSE 146 mg/dL 08/05/2015 Comp Metabolic Vhn028 Creat 1.0 mg/dL 08/05/2015 Comp Metabolic Eyn138 eGFR 56 ml/min/1.73m2 08/05/2015 Comp Metabolic Xdb414 BUN 23 mg/dL 08/05/2015 Comp Metabolic Dop863 B/C Ratio 22.8 Ratio 08/05/2015 Comp Metabolic Upn405 CALCIUM 9.3 mg/dL 08/05/2015 Comp Metabolic Lzh665 ALK PHOS 71 U/L 08/05/2015 Comp Metabolic Vli971 AST(SGOT) 33 U/L 08/05/2015 Comp Metabolic Omg932 ALT(SGPT) 15 U/L 08/05/2015 Comp Metabolic Suh719 BILI T 0.6 mg/dL 08/05/2015 Comp Metabolic Shy776 ALBUMIN 3.9 g/dL 08/05/2015 Comp Metabolic Jtn616 TPRO 6.5 g/dL 08/05/2015 Comp Metabolic Kcs786 GLOB 2.6 g/dL 08/05/2015 Comp Metabolic Mxf629 A/G Ratio 1.5 Ratio 08/05/2015 Comp Metabolic Kfn885 Osmo 280 mOsmo 08/05/2015 Tsh Ord6 hTSH II 0.36 uIU/mL 08/05/2015 %Hba1C Cmm774 % HbA1c 93814- 6 8.1 % 08/05/2015 %Hba1C Smt167 Gluc Ave 186 mg/dL 08/05/2015 Free T4 Rma946 FREE T4 0.91 ng/dL 04/11/2015 Comp Metabolic Css952 NA 134 mEq/L 04/10/2015 Comp Metabolic Bks034 K 4.1 mEq/L 04/10/2015 Comp Metabolic Oaq267 CL 105 mEq/L 04/10/2015 Comp Metabolic Glr025 CO2 26.0 mEq/L 04/10/2015 Comp Metabolic Vnw356 ANION GAP 7 04/10/2015 Comp Metabolic Ryo039 GLUCOSE 126 mg/dL 04/10/2015 Comp Metabolic Ooy221 Creat 1.0 mg/dL 04/10/2015 Comp Metabolic Wuj705 eGFR 58 ml/min/1.73m2 04/10/2015 Comp Metabolic Fzf756 BUN 29 mg/dL 04/10/2015 Comp Metabolic Mci234 B/C Ratio 29.6 Ratio 04/10/2015 Comp Metabolic Jqp865 CALCIUM 9.3 mg/dL 04/10/2015 Comp Metabolic Dnu986 ALK PHOS 63 U/L 04/10/2015 Comp Metabolic Aoz617 AST(SGOT) 31 U/L 04/10/2015 Comp Metabolic Vnz962 ALT(SGPT) 14 U/L 04/10/2015 Comp Metabolic Ndd269 BILI T 0.6 mg/dL 04/10/2015 Comp Metabolic Xli146 ALBUMIN 3.9 g/dL 04/10/2015 Comp Metabolic Iua428 TPRO 6.3 g/dL 04/10/2015 Comp Metabolic Dmf815 GLOB 2.4 g/dL 04/10/2015 Comp Metabolic Rmw718 A/G Ratio 1.6 Ratio 04/10/2015 Comp Metabolic Jmc208 Osmo 276 mOsmo 04/10/2015 Tsh Ord6 hTSH [...] Differential Ord2 RDW 15.8 % 04/10/2015 %Hba1C Rgq013 % HbA1c 24723- 6 8.3 % 04/10/2015 %Hba1C Mwm492 Gluc Ave 192 mg/dL 04/10/2015 Review of [...] Date GLUC MONITOR CONT PHYS I&R CPT-4: 84490 06/05/2018 GLUCOSE MONITORING CONT CPT-4: 19755 05/22/2018 THER/PROPH/DIAG INJ SC/IM CPT-4: 04688 01/12/2018 VITAMIN B12 INJECTION CPT- 4: J3420 01/12/2018 THER/PROPH/DIAG INJ SC/IM CPT-4: 04750 09/15/2017 VITAMIN B12 INJECTION CPT- 4: J3420 09/15/2017 THER/PROPH/DIAG INJ SC/IM CPT-4: 29678 08/17/2017 VITAMIN B12 INJECTION CPT- 4: J3420 08/17/2017 THER/PROPH/DIAG INJ SC/IM CPT-4: 71901 07/19/2017 VITAMIN B12 INJECTION CPT- 4: J3420 07/19/2017 THER/PROPH/DIAG INJ SC/IM CPT-4: 68819 05/19/2017 VITAMIN B12 INJECTION CPT- 4: J3420 05/19/2017 THER/PROPH/DIAG INJ SC/IM CPT-4: 05384 04/06/2017 VITAMIN B12 INJECTION CPT- 4: J3420 04/06/2017 THER/PROPH/DIAG INJ SC/IM CPT-4: 32956 01/04/2017 VITAMIN B12 INJECTION CPT- 4: J3420 01/04/2017 THER/PROPH/DIAG INJ SC/IM CPT-4: 99726 12/10/2016 VITAMIN B12 INJECTION CPT- 4: J3420 12/10/2016 THER/PROPH/DIAG INJ SC/IM CPT-4: 62814 10/13/2016 TRIAMCINOLONE ACET INJ NOS CPT-4: J3301 10/13/2016 THER/PROPH/DIAG INJ SC/IM CPT-4: 36484 09/03/2016 VITAMIN B12 INJECTION CPT- 4: J3420 09/03/2016 THER/PROPH/DIAG INJ SC/IM CPT-4: 19061 07/29/2016 VITAMIN B12 INJECTION CPT- 4: J3420 07/29/2016 THER/PROPH/DIAG INJ SC/IM CPT-4: 83614 06/03/2016 VITAMIN B12 INJECTION CPT- 4: J3420 06/03/2016 PNEUMOCOCCAL VACC [address]: 40207947 CPT-4: 89354 04/22/2016 ADMIN PNEUMOCOCCAL VACCINE SNOMED CT: 71809635 CPT-4: G0009 04/22/2016 VITAMIN B12 INJECTION CPT- 4: J3420 09/15/2015 THER/PROPH/DIAG INJ SC/IM CPT-4: 49921 09/15/2015 THER/PROPH/DIAG INJ SC/IM CPT-4: 80498 09/08/2015 VITAMIN B12 INJECTION CPT- 4: J3420 09/08/2015 THER/PROPH/DIAG INJ SC/IM CPT-4: 06001 09/01/2015 VITAMIN B12 INJECTION CPT- 4: J3420 09/01/2015 THER/PROPH/DIAG INJ SC/IM CPT-4: 62501 08/25/2015 VITAMIN B12 INJECTION CPT- 4: J3420 08/25/2015 Vital Signs Date Vital 08/15/2018 Blood Pressure 1: 144/70 Code: 8480-6 BMI: 40.8 Code: 03395-5 Heart Rate 1: 83 bpm Height: 4'11" SpO2: 97% Weight: 202 lbs 06/05/2018 Blood Pressure 1: 132/70 Code: 8480-6 BMI: 41.6 Code: 17024-9 Heart Rate 1: 70 bpm Height: 4'11" SpO2: 96% Weight: 206 lbs 05/22/2018 Blood Pressure 1: 148/72 Code: 8480-6 BMI: 41.6 Code: 61189-5 Heart Rate 1: 82 bpm Height: 4'11" SpO2: 95% Weight: 206 lbs 05/15/2018 Blood Pressure 1: 140/80 Code: 8480-6 BMI: 41.6 Code: 27897-6 Heart Rate 1: 86 bpm Height: 4'11" SpO2: 92% Weight: 206 lbs 01/12/2018 Blood Pressure 1: 140/78 Code: 8480-6 BMI: 42.2 Code: 12033-5 Heart Rate 1: 73 bpm Height: 4'11" SpO2: 97% Weight: 209 lbs 11/25/2017 Blood Pressure 1: 140/68 Code: 8480-6 BMI: 42.2 Code: 90024-4 Heart Rate 1: 76 bpm Height: 4'11" SpO2: 94% Weight: 209 lbs 09/15/2017 Blood Pressure 1: 146/67 Code: 8480-6 BMI: 42.2 Code: 07590-6 Heart Rate 1: 69 bpm Height: 4'11" SpO2: 97% Weight: 209 lbs 08/17/2017 Blood Pressure 1: 144/70 Code: 8480-6 BMI: 41.8 Code: 18824-4 Heart Rate 1: 63 bpm Height: 4'11" SpO2: 97% Weight: 207 lbs 07/19/2017 Blood Pressure 1: 142/74 Code: 8480-6 BMI: 41.4 Code: 03553-2 Heart Rate 1: 71 bpm Height: 4'11" SpO2: 96% Weight: 205 lbs 05/19/2017 Blood Pressure 1: 148/76 Code: 8480-6 BMI: 42.8 Code: 76311-4 Heart Rate 1: 72 bpm Height: 4'11" SpO2: 94% Weight: 212 lbs 02/15/2017 Blood Pressure 1: 154/70 Code: 8480-6 BMI: 42.5 Code: 65462-3 Heart Rate 1: 68 bpm Height: 4'11" SpO2: 97% Weight: 210 lbs 8 oz 11/16/2016 Blood Pressure 1: 142/78 Code: 8480-6 BMI: 41.6 Code: 66389-7 Heart Rate 1: 68 bpm Height: 4'11" SpO2: 95% Temperature: 36.0 (C) / 96.8 (F) Weight: 206 lbs 08/19/2016 Blood Pressure 1: 120/74 Code: 8480-6 BMI: 41.6 Code: 74300-0 Heart Rate 1: 75 bpm Height: 4'11" SpO2: 95% Weight: 206 lbs 07/15/2016 Blood Pressure 1: 140/76 Code: 8480-6 BMI: 42.0 Code: 38544-2 Heart Rate 1: 76 bpm Height: 4'11" SpO2: 96% Weight: 208 lbs 06/03/2016 Blood Pressure 1: 130/78 Code: 8480-6 BMI: 42.8 Code: 07786-1 Heart Rate 1: 72 bpm Height: 4'11" SpO2: 98% Weight: 212 lbs 04/22/2016 Blood Pressure 1: 142/84 Code: 8480-6 BMI: 41.8 Code: 72205-4 Heart Rate 1: 86 bpm Height: 4'11" SpO2: 92% Weight: 207 lbs 01/22/2016 Blood Pressure 1: 162/64 Code: 8480-6 BMI: 41.2 Code: 38734-4 Heart Rate 1: 70 bpm Height: 4'11" SpO2: 97% Weight: 204 lbs 10/23/2015 Blood Pressure 1: 130/70 Code: 8480-6 BMI: 40.4 Code: 47475-6 Heart Rate 1: 72 bpm Height: 4'11" SpO2: 95% Weight: 200 lbs 09/12/2015 Blood Pressure 1: 142/62 Code: 8480-6 BMI: 39.4 Code: 94895-6 Heart Rate 1: 63 bpm Height: 4'11" SpO2: 96% Weight: 195 lbs 08/05/2015 Blood Pressure 1: 144/60 Code: 8480-6 BMI: 41.0 Code: 31213-7 Heart Rate 1: 92 bpm Height: 4'11" SpO2: 90% SpO2: 97% Weight: 203 lbs 04/03/2015 Blood Pressure 1: 142/68 Code: 8480-6 BMI: 40.6 Code: 91212-0 Heart Rate 1: 77 bpm Height: 4'11" SpO2: 95% Weight: 201 lbs 01/30/2015 Blood Pressure 1: 150/72 Code: 8480-6 BMI: 40.2 Code: 70845-6 Heart Rate 1: 64 bpm Height: 4'11" Weight: 199 lbs 01/02/2015 Blood Pressure 1: 136/72 Code: 8480-6 BMI: 39.8 Code: 33427-2 Heart Rate 1: 68 bpm Height: 4'11" [...] data Encounters Encounter Performer Location Codes Date ([id number]) 16112 EST. PATIENT, LEVEL IV Diagnosis: Type 2 diabetes mellitus with hyperglycemia[ICD10: E11.65] Diagnosis: Essential (primary) hypertension[ICD10: I10] Diagnosis: Chronic kidney disease, stage 3 (moderate)[ICD10: N18.3] Diagnosis: Low back pain[ICD10: M54.5] Giselle Knox MD, [facility] CPT-4: 78904 08/15/2018 ([id number]) 70582 EST. PATIENT, LEVEL III Diagnosis: Type 2 diabetes mellitus with hyperglycemia[ICD10: E11.65] Giselle Knox MD, [facility] CPT-4: 10270 06/05/2018 ([id number]) Miscellaneous no charge Diagnosis: Type 2 diabetes mellitus with hyperglycemia[ICD10: E11.65] Jennifer Knox MD, [facility] CPT-4: 97941 05/29/2018 ([id number]) 50330 EST. PATIENT, LEVEL IV Diagnosis: Type 2 diabetes mellitus with hyperglycemia[ICD10: E11.65] Diagnosis: Essential (primary) hypertension[ICD10: I10] Diagnosis: Hypothyroidism, unspecified[ICD10: E03.9] Giselle Knox MD, [facility] CPT-4: 33973 05/15/2018 ([id number]) 85071 EST. PATIENT, LEVEL IV Diagnosis: Essential (primary) hypertension[ICD10: I10] Diagnosis: Type 2 diabetes mellitus with hyperglycemia[ICD10: E11.65] Diagnosis: Hypothyroidism, unspecified[ICD10: E03.9] Diagnosis: Spinal stenosis, lumbar region without neurogenic claudication[ICD10: M48.061] Diagnosis: Vitamin B12 deficiency anemia due to intrinsic factor deficiency[ICD10: D51.0] Giselle Knox MD, [facility] CPT-4: 21099 01/12/2018 ([id number]) 27475 EST. PATIENT, LEVEL IV Diagnosis: Varicose veins of bilateral lower extremities with pain[ICD10: I83.813] Diagnosis: Low back pain[ICD10: M54.5] Diagnosis: Hypothyroidism, unspecified[ICD10: E03.9] Diagnosis: Type 2 diabetes mellitus with hyperglycemia[ICD10: E11.65] Giselle Knox MD, [facility] CPT-4: 85882 11/25/2017 [id number] EST. PATIENT, LEVEL IV Diagnosis: Localized edema[ICD10: R60.0] Diagnosis: Vitamin B12 deficiency anemia due to intrinsic factor deficiency[ICD10: D51.0] Chasity Knox MD, [facility] CPT-4: 80287 09/15/2017 [id number] EST. PATIENT, LEVEL IV Diagnosis: Essential (primary) hypertension[ICD10: I10] Diagnosis: Type 2 diabetes mellitus with hyperglycemia[ICD10: E11.65] Diagnosis: Vitamin B12 deficiency anemia due to intrinsic factor deficiency[ICD10: D51.0] Chasity Knox MD, [facility] CPT-4: 91082 08/17/2017 80315 EST. PATIENT, LEVEL IV Diagnosis: Type 2 diabetes mellitus with hyperglycemia[ICD10: E11.65] Diagnosis: Essential (primary) hypertension[ICD10: I10] Diagnosis: Vitamin B12 deficiency anemia due to intrinsic factor deficiency[ICD10: D51.0] Chasity Knox MD, [facility] CPT-4: 46963 07/19/2017 ([id number]) 47961 EST. PATIENT, LEVEL IV Diagnosis: Essential (primary) hypertension[ICD10: I10] Diagnosis: Type 2 diabetes mellitus with hyperglycemia[ICD10: E11.65] Diagnosis: Hypothyroidism, unspecified[ICD10: E03.9] Diagnosis: Vitamin B12 deficiency anemia due to intrinsic factor deficiency[ICD10: D51.0] Diagnosis: Chronic kidney disease, stage 3 (moderate)[ICD10: N18.3] Giselle Knox MD, [facility] CPT-4: 01100 05/19/2017 ([id number]) 41273 EST. PATIENT, LEVEL IV Diagnosis: Essential (primary) hypertension[ICD10: I10] Diagnosis: Type 2 diabetes mellitus with hyperglycemia[ICD10: E11.65] Diagnosis: Hypothyroidism, unspecified[ICD10: E03.9] Giselle Knox MD, [facility] CPT-4: 20850 02/15/2017 ([id number]) 48363 EST. PATIENT, LEVEL IV Diagnosis: Type 2 diabetes mellitus with hyperglycemia[ICD10: E11.65] Diagnosis: Cough[ICD10: R05] Diagnosis: Acute upper respiratory infection, unspecified[ICD10: J06.9] Diagnosis: Hypothyroidism, unspecified[ICD10: E03.9] Diagnosis: Chronic kidney disease, stage 3 (moderate)[ICD10: N18.3] Giselle Knox MD, [facility] CPT-4: 72465 11/16/2016 [id number]) 60294 EST. PATIENT, LEVEL IV Diagnosis: Type 2 diabetes mellitus with hyperglycemia[ICD10: E11.65] Diagnosis: Hypothyroidism, unspecified[ICD10: E03.9] Diagnosis: Essential (primary) hypertension[ICD10: I10] Giselle Knox MD, [facility] CPT-4: 57752 08/19/2016 ([id number]) 82292 EST. PATIENT, LEVEL III Diagnosis: Type 2 diabetes mellitus with hyperglycemia[ICD10: E11.65] Giselle Knox MD, [facility] CPT-4: 88854 07/15/2016 ([id number]) 09898 EST. PATIENT, LEVEL IV Diagnosis: Type 2 diabetes mellitus with hyperglycemia[ICD10: E11.65] Diagnosis: Atrophy of thyroid (acquired)[ICD10: E03.4] Diagnosis: Vitamin B12 deficiency anemia due to intrinsic factor deficiency[ICD10: D51.0] Diagnosis: Chronic kidney disease, stage 3 (moderate)[ICD10: N18.3] Diagnosis: Essential (primary) hypertension[ICD10: I10] Jennifer Knox MD, [facility] CPT-4: 46770 06/03/2016 ([id number]) 49917 EST. PATIENT, LEVEL III Diagnosis: Type 2 diabetes mellitus with hyperglycemia[ICD10: E11.65] Diagnosis: Essential (primary) hypertension[ICD10: I10] Diagnosis: Chronic kidney disease, stage 3 (moderate)[ICD10: N18.3] Diagnosis: VACCIN STREP PNEUMONIAE[ICD10: Z23] Giselle Knox MD, [facility] CPT-4: 29013 04/22/2016 95711 EST. PATIENT, LEVEL IV Diagnosis: Type 2 diabetes mellitus with hyperglycemia[ICD10: E11.65] Diagnosis: Essential (primary) hypertension[ICD10: I10] Chasity Knox MD, [facility] CPT-4: 91719 01/22/2016 ([id number]) 25625 EST. PATIENT, LEVEL III Diagnosis: Type 2 diabetes mellitus with hyperglycemia[ICD10: E11.65] Diagnosis: Essential (primary) hypertension[ICD10: I10] Giselle Knox MD, [facility] CPT-4: 71408 10/23/2015 29335 EST. PATIENT, LEVEL IV Diagnosis: Type 2 diabetes mellitus with hyperglycemia[ICD10: E11.65] Diagnosis: Vitamin B12 deficiency anemia due to intrinsic factor deficiency[ICD10: D51.0] Diagnosis: Essential (primary) hypertension[ICD10: I10] Chasity Knox MD, [facility] CPT-4: 63644 09/12/2015 ([id number]) 80308 EST. PATIENT, LEVEL IV Diagnosis: Essential (primary) hypertension[ICD10: I10] Diagnosis: Type 2 diabetes mellitus with hyperglycemia[ICD10: E11.65] Diagnosis: Hypothyroidism, unspecified[ICD10: E03.9] Giselle Knox MD, [facility] CPT-4: 10189 08/05/2015 ([id number]) 54993 EST. PATIENT, LEVEL III Diagnosis: ESSENTIAL HYPERTENSION[ICD9: 401.9] Diagnosis: DIABETES TYPE II[ICD9: 250.00] Jennifer Knox MD, [facility] CPT-4: 97446 04/03/2015 ([id number]) 91644 EST. PATIENT, LEVEL IV Diagnosis: ESSENTIAL HYPERTENSION[ICD9: 401.9] Diagnosis: DIABETES TYPE II[ICD9: 250.00] Diagnosis: Hypothyroidism[ICD9: 244.9] Giselle Knox MD, [facility] CPT-4: 53150 01/30/2015 ([id number]) OFFICE VISIT, NEW - LEVEL 4 Diagnosis: ESSENTIAL HYPERTENSION[ICD9: 401.9] Diagnosis: DIABETES TYPE II[ICD9: 250.00] Diagnosis: Impacted cerumen[ICD9: 380.4] Jennifer Knox MD, [facility] CPT-4: 91282 01/02/2015 Plan of Care Planned Activity Notes [...] time. 08/15/2018 Appointment: Giselle Mccoy WPtel: [phone] [phone] (30 min) Complex 08/15/2018 Patient Education: Patient [...] of plan. 06/05/2018 Appointment: Giselle Mccoy WPtel: [phone] [phone] (15 min) Moderate 06/05/2018 Patient Education: Patient [...] IPRO. 05/22/2018 Appointment: Giselle Mccoy WPtel: [phone] [phone] (30 min) Complex 05/22/2018 Patient Education: Patient [...] control. 05/15/2018 Appointment: [phone] (15 min) Moderate 05/15/2018 Patient Education: Patient [...] PT 01/12/2018 Appointment: Gis[facility] Mccoy [facility]Ptel: [phone] [place] (30 min) Complex 01/12/2018 Patient Education: Patient Medication Summary Completed 01/12/2018 Care Plan: Referral Order SNOMED-CT : 707773284 Pending 01/12/2018 Visit Plan: Varicose veins-rx for compression stockings provided and instructed on use Low back pain-recommend xray lumbar spine Hypothyroidism- check labs DM-check Hgb A1c 11/25/2017 Appointment: Gis[facility] Mccoy [facility]Ptel: [phone] [place] (30 min) Complex 11/25/2017 Patient Education: Patient Medication Summary Completed 11/25/2017 Care Plan: X-RAY EXAM L-S SPINE 2/3 VWS LOINC : 59370-6 Pending 11/25/2017 Visit Plan: Edema - Left [...] concerns. 09/15/2017 Appointment: Chasity Caldwell WPtel: [phone] [facility] [place] (30 min) Complex 09/15/2017 Patient Education: [...] glucose control. 08/17/2017 Appointment: Chasity Caldwell WPtel: [phone] [facility] [place] (15 min) Moderate 08/17/2017 Patient Education: [...] home. 07/19/2017 Appointment: Chasity Caldwell WPtel: [phone] [facility] (15 min) Moderate 07/19/2017 Patient Education: Patient Medication Summary Completed 07/19/2017 [phone] (15 min) Moderate 06/13/2017 Visit [...] medications. 05/19/2017 Appointment: Giselle Mccoy WPtel: [phone] [phone] (30 min) Complex 05/19/2017 Patient Education: Patient [...] control. 02/15/2017 Appointment: Giselle Mccoy [facility]Ptel: [phone] [phone] (15 min) Moderate 02/15/2017 Patient Education: Patient [...] today 11/16/2016 Appointment: Giselle Mccoy WPtel: [phone] [phone] (15 min) Moderate 11/16/2016 Patient Education: Patient [...] of control. 08/19/2016 Appointment: Giselle Mccoy WPtel: [phone] [phone] [place] (15 min) Moderate 08/19/2016 Patient Education: Patient Medication Summary Completed 08/19/2016 Patient Education: Obesity Completed 08/19/2016 Care Plan: Tsh Cancelled 08/19/2016 Care Plan: %Hba1C LOINC : 58105-1 Cancelled 08/19/2016 Care Plan: Lipid Cancelled 08/19/2016 Care Plan: Free T4 patient coming back next week Cancelled 08/19/2016 Appointment: Injection 07/29/2016 Patient Education: Patient Medication Summary Completed 07/29/2016 Appointment: Giselle Mccoy WPtel: [phone] [phone] (30 min) Complex 07/22/2016 Visit Plan: Diabetes-having hypoglycemia in the mornings-insulin adjusted-patient and verbalized understanding of plan. Follow up in 1 month-call sooner if still having low blood sugars. Sinus congestion-start claritin 07/15/2016 Appointment: Giselle Mccoy WPtel: [phone] [phone] (30 min) Complex 07/15/2016 Patient Education: [...] 06/03/2016 Appointment: [phone] [place] (15 min) Moderate 06/03/2016 Patient [...] 1 MONTH 04/22/2016 Appointment: Giselle Mccoy WPtel: [phone] (15 min) Moderate 04/22/2016 Patient Education: Patient [...] 01/02/2015 Appointment: [phone] [place] ([place] New Patient 01/02/2015 Patient Education: Patient Medication Summary Completed 01/02/2015 Patient Education: Hypertension Completed 01/02/2015 Referral: Ipsen, Tom Referral Appointment Requested Instructions Comment . Hypertension [...] FOR REPEAT HGB A1C IN 1 MONTH decrease terazosin to 1/2 pill daily use [...] directed. Patient and verbalized understanding of plan. COME BACK NEXT WEEK FOR BLOOD WORK [...] to allow for greater blood glucose control. CHECK LABS WITH NEXT APPOINTMENT . [...] having low blood sugars. Sinus congestion-start claritin RETURN TUESDAY FOR REMOVAL IF DEVICE . DM-here for IPRO placement in order to get a full picture of blood sugar readings in attempt to identify trends in blood sugars so we can better manage her medications. Return in 1 week for removal of IPRO.
--- OUTSIDE RECORDS SUMMARY | 2019-01-23 09:06 | XMS REPORT | CCD ---
Author Author Jennifer [facility] Organization [facility] Address [address] [place] [address] Phone Care Team Providers Care Supervisor Hard Candy Name Role Phone PP Unavailable CCM Unavailable Summary Purpose Interface Exchange Insurance Providers Payer name Policy type / Coverage type Covered green party ID Effective Begin Date Effective End Date [facility] Commercial Insurance [id number] Unknown Family history Runs in the family [...] Fill Instructions carvedilol 12.5 mg tablet RxNorm: 673499 TAKE ONE TABLET BY MOUTH TWICE A DAY 08/07/2018 08/01/2019 Active Humulin 70/30 U-100 Insulin 100 unit/mL subcutaneous suspension RxNorm: 710730 Unit(s) INJECT 18 UNITS UNDER THE SKIN EVERY MORNING 06/20/2018 09/11/2018 Active Humulin 70/30 U-100 Insulin 100 unit/mL subcutaneous suspension RxNorm: 210067 INJECT 18 UNITS UNDER THE SKIN EVERY MORNING 06/20/2018 06/19/2018 Inactive terazosin 2 mg capsule RxNorm: 389920 TAKE ONE CAPSULE BY MOUTH DAILY 06/09/2018 03/05/2019 Active Humulin 70/30 U-100 Insulin 100 unit/mL subcutaneous suspension RxNorm: 733988 18 Unit(s) SQ QAM 05/15/2018 06/19/2018 Inactive levothyroxine 100 mcg tablet RxNorm: 673392 1 Tablet(s) PO daily 05/11/2018 09/07/2018 Active carvedilol 12.5 mg tablet RxNorm: 244132 TAKE ONE TABLET BY MOUTH TWICE A DAY 05/05/2018 08/06/2018 Inactive losartan 100 mg tablet RxNorm: 248066 TAKE ONE TABLET BY MOUTH DAILY 03/24/2018 06/10/2020 Active terazosin 2 mg capsule RxNorm: 794208 TAKE ONE CAPSULE BY MOUTH DAILY 03/07/2018 06/08/2018 Inactive Lantus Solostar U-100 Insulin 100 unit/mL (3 mL) subcutaneous pen RxNorm: 005912 Unit(s) INJECT 24 UNITS UNDER THE SKIN EVERY NIGHT AT BEDTIME 01/12/2018 No Stop Date Active cyanocobalamin (vit B-12) 1,000 mcg/mL injection solution RxNorm: 293523 1 Milliliter(s) Inj 01/12/2018 01/12/2018 Inactive Humulin 70/30 U-100 Insulin 100 unit/mL subcutaneous suspension RxNorm: 708109 INJECT 18 UNITS UNDER THE SKIN EVERY MORNING 11/14/2017 03/05/2018 Inactive carvedilol 12.5 mg tablet RxNorm: 971825 TAKE ONE TABLET BY MOUTH TWICE A DAY 11/07/2017 05/04/2018 Inactive cyanocobalamin (vit B-12) 1,000 mcg/mL injection solution RxNorm: 109835 Milliliter(s) Inj 09/15/2017 09/15/2017 Inactive terazosin 2 mg capsule RxNorm: 645852 Capsule(s) TAKE ONE CAPSULE BY MOUTH DAILY 09/07/2017 03/05/2018 Inactive Lantus Solostar 100 unit/mL (3 mL) subcutaneous insulin pen RxNorm: 450948 INJECT 35 UNITS UNDER THE SKIN EVERY NIGHT AT BEDTIME 08/29/2017 01/11/2018 Inactive One Touch Test strips RxNorm: 1 test Miscellaneous BID 08/22/2017 08/16/2018 Active Contour Test Strips RxNorm: TEST BLOOD SUGAR TWO TIMES A DAY E11.65 08/22/2017 02/22/2019 Active Tamiflu 75 mg capsule RxNorm: 636775 1 Capsule(s) PO daily 08/17/2017 08/16/2017 Inactive Tamiflu 75 mg capsule RxNorm: 659037 1 Capsule(s) PO daily 08/17/2017 08/26/2017 Inactive cyanocobalamin (vit B-12) 1,000 mcg/mL injection solution RxNorm: 380889 1 Milliliter(s) Inj 08/17/2017 08/17/2017 Inactive carvedilol 12.5 mg tablet RxNorm: 033938 TAKE ONE TABLET BY MOUTH TWICE A DAY 08/10/2017 11/06/2017 Inactive cyanocobalamin (vit B-12) 1,000 mcg/mL injection solution RxNorm: 832801 1 Milliliter(s) Inj 07/19/2017 07/19/2017 Inactive Humulin 70/30 100 unit/mL subcutaneous suspension RxNorm: 151478 14 Unit(s) SQ QAM 07/06/2017 05/14/2018 Inactive Lantus Solostar 100 unit/mL (3 mL) subcutaneous insulin pen RxNorm: 225792 26 Unit(s) SQ QHS 07/06/2017 08/28/2017 Inactive losartan 100 mg tablet RxNorm: 359490 TAKE ONE TABLET BY MOUTH DAILY 06/07/2017 03/23/2018 Inactive Lantus Solostar 100 unit/mL (3 mL) subcutaneous insulin pen RxNorm: 438134 28 Unit(s) SQ QHS 05/19/2017 07/05/2017 Inactive cyanocobalamin (vit B-12) 1,000 mcg/mL injection solution RxNorm: 748001 1 Milliliter(s) Inj 05/19/2017 05/19/2017 Inactive terazosin 2 mg capsule RxNorm: 036090 TAKE ONE CAPSULE BY MOUTH DAILY 05/16/2017 09/06/2017 Inactive cyanocobalamin (vit B-12) 1,000 mcg/mL injection solution RxNorm: 602714 1 Milliliter(s) Inj 04/06/2017 04/06/2017 Inactive cyanocobalamin (vit B-12) 1,000 mcg/mL injection solution RxNorm: 310188 Milliliter(s) Inj 01/04/2017 01/04/2017 Inactive Humulin 70/30 U-100 Insulin 100 unit/mL subcutaneous suspension RxNorm: 595496 18 Unit(s) SQ QAM 12/22/2016 06/04/2017 Inactive cyanocobalamin (vit B-12) 1,000 mcg/mL injection solution RxNorm: 991750 1 Milliliter(s) Inj 12/10/2016 12/10/2016 Inactive Zithromax Z-Jose 250 mg tablet RxNorm: 280295 1 Tablet(s) PO UD 11/16/2016 11/20/2016 Inactive terazosin 2 mg capsule RxNorm: 012007 TAKE ONE CAPSULE BY MOUTH DAILY 11/08/2016 05/06/2017 Inactive Lantus Solostar 100 unit/mL (3 mL) subcutaneous insulin pen RxNorm: 677967 INJECT 35 UNITS UNDER THE SKIN EVERY NIGHT AT BEDTIME 10/22/2016 07/18/2017 Inactive cyanocobalamin (vit B-12) 1,000 mcg/mL injection solution RxNorm: 473549 Milliliter(s) Inj 10/13/2016 10/13/2016 Inactive cyanocobalamin (vit B-12) 1,000 mcg/mL injection solution RxNorm: 883552 1 Milliliter(s) Inj 09/03/2016 09/03/2016 Inactive Contour Test Strips RxNorm: TEST BLOOD SUGAR TWO TIMES A DAY E11.65 08/19/2016 08/21/2017 Inactive carvedilol 12.5 mg tablet RxNorm: 037528 TAKE ONE TABLET BY MOUTH TWICE A DAY 08/05/2016 01/01/2017 Inactive carvedilol 12.5 mg tablet RxNorm: 920526 TAKE ONE TABLET BY MOUTH TWICE A DAY 08/05/2016 01/01/2017 Inactive carvedilol 12.5 mg tablet RxNorm: 228527 1 Tablet(s) PO BID 08/04/2016 01/30/2017 Inactive cyanocobalamin (vit B-12) 1,000 mcg/mL injection solution RxNorm: 479124 Milliliter(s) Inj 07/29/2016 07/29/2016 Inactive Lantus Solostar 100 unit/mL (3 mL) subcutaneous insulin pen RxNorm: 524205 30 Unit(s) SQ QHS 07/15/2016 05/18/2017 Inactive Humulin 70/30 100 unit/mL subcutaneous suspension RxNorm: 440511 18 Unit(s) SQ QAM 07/15/2016 12/21/2016 Inactive losartan 100 mg tablet RxNorm: 229766 TAKE ONE TABLET BY MOUTH DAILY 07/08/2016 06/02/2017 Inactive terazosin 2 mg capsule RxNorm: 856156 TAKE ONE CAPSULE BY MOUTH DAILY 06/10/2016 11/06/2016 Inactive cyanocobalamin (vit B-12) 1,000 mcg/mL injection solution RxNorm: 349779 1 Milliliter(s) Inj 06/03/2016 06/03/2016 Inactive Humulin 70/30 100 unit/mL subcutaneous suspension RxNorm: 878217 Unit(s) INJECT 10 UNITS UNDER THE SKIN 06/01/2016 07/14/2016 Inactive Request already responded to by other means (e.g. phone or fax) Humulin 70/30 100 unit/mL subcutaneous suspension RxNorm: 606841 INJECT 10 UNITS UNDER THE SKIN BEFORE MEALS 06/01/2016 05/31/2016 Inactive Request already responded to by other means (e.g. phone or fax) Lantus Solostar 100 unit/mL (3 mL) subcutaneous insulin pen RxNorm: 482737 35 Unit(s) SQ [facility] 05/26/2016 07/14/2016 Inactive Humulin 70/30 100 unit/mL subcutaneous suspension RxNorm: 656247 10 Unit(s) SQ QA 05/24/2016 10/02/2016 Inactive Humulin 70/30 100 unit/mL subcutaneous suspension RxNorm: 645547 21 Unit(s) SQ QA 05/24/2016 05/23/2016 Inactive Lantus Solostar 100 unit/mL (3 mL) subcutaneous insulin pen RxNorm: 181192 32 Unit(s) SQ [facility] 04/22/2016 05/25/2016 Inactive Humulin 70/30 100 unit/mL subcutaneous suspension RxNorm: 588630 21 Unit(s) SQ QA 04/22/2016 05/24/2016 Inactive with breakfast hydrochlorothiazide 25 mg tablet RxNorm: 078642 TAKE ONE TABLET BY MOUTH DAILY 02/04/2016 02/16/2016 Inactive terazosin 2 mg capsule RxNorm: 419504 Capsule(s) TAKE ONE CAPSULE BY MOUTH DAILY. 12/01/2015 05/28/2016 Inactive Humulin 70/30 100 unit/mL subcutaneous suspension RxNorm: 623172 INJECT 10 UNITS UNDER THE SKIN BEFORE MEALS 11/06/2015 03/16/2016 Inactive hydrochlorothiazide 25 mg tablet RxNorm: 095821 1 Tablet(s) PO daily 10/06/2015 02/02/2016 Inactive cyanocobalamin (vit B-12) 1,000 mcg/mL injection solution RxNorm: 565313 Milliliter(s) Inj 09/15/2015 09/15/2015 Inactive Humulin 70/30 100 unit/mL subcutaneous suspension RxNorm: 891545 INJECT 10 UNITS UNDER THE SKIN BEFORE MEALS 09/08/2015 10/10/2015 Inactive cyanocobalamin (vit B-12) 1,000 mcg/mL injection solution RxNorm: 010588 Milliliter(s) Inj 09/08/2015 09/08/2015 Inactive terazosin 2 mg capsule RxNorm: 912921 TAKE ONE CAPSULE BY MOUTH DAILY. DISCONTINUE 5 MG CAPSULES 09/01/2015 11/29/2015 Inactive cyanocobalamin (vit B-12) 1,000 mcg/mL injection solution RxNorm: 097072 Milliliter(s) Inj 09/01/2015 09/01/2015 Inactive cyanocobalamin (vit B-12) 1,000 mcg/mL injection solution RxNorm: 558231 Milliliter(s) Inj 08/25/2015 08/25/2015 Inactive levothyroxine 112 mcg tablet RxNorm: 670829 1 Tablet(s) PO daily 08/06/2015 02/14/2017 Inactive Lantus Solostar 100 unit/mL (3 mL) subcutaneous insulin pen RxNorm: 453828 35 Unit(s) SQ QHS 08/06/2015 04/21/2016 Inactive Humulin 70/30 100 unit/mL subcutaneous suspension RxNorm: 972025 20 Unit(s) SQ AC 08/05/2015 04/21/2016 Inactive with breakfast carvedilol 12.5 mg tablet RxNorm: 494821 1 Tablet(s) PO BID 08/05/2015 01/31/2016 Inactive Humulin 70/30 100 unit/mL subcutaneous suspension RxNorm: 634662 10 Unit(s) SQ AC 07/22/2015 08/04/2015 Inactive losartan 100 mg tablet RxNorm: 397461 TAKE ONE TABLET BY MOUTH DAILY 06/25/2015 06/18/2016 Inactive Lantus Solostar 100 unit/mL (3 mL) subcutaneous insulin pen RxNorm: 317043 30 Unit(s) SQ QHS 06/18/2015 08/05/2015 Inactive terazosin 2 mg capsule RxNorm: 591006 1 Capsule(s) PO daily 04/14/2015 08/11/2015 Inactive DC the 5mg order terazosin 2 mg capsule RxNorm: 020559 1 Capsule(s) PO daily 04/14/2015 04/13/2015 Inactive Synthroid 25 mcg tablet RxNorm: 495896 1 Tablet(s) PO daily 04/11/2015 02/14/2017 Inactive Synthroid 25 mcg tablet RxNorm: 166051 1 Tablet(s) PO daily 04/11/2015 04/10/2015 Inactive Lantus Solostar 100 unit/mL (3 mL) subcutaneous insulin pen RxNorm: 865805 30 Unit(s) SQ QHS 04/04/2015 06/17/2015 Inactive terazosin 5 mg tablet RxNorm: 110740 1 Tablet(s) PO daily 04/03/2015 04/13/2015 Inactive Lantus Solostar 100 unit/mL (3 mL) subcutaneous insulin pen RxNorm: 321291 25 Unit(s) SQ QHS 01/08/2015 04/03/2015 Inactive carvedilol 25 mg tablet RxNorm: 256808 1 Tablet(s) PO BID 01/02/2015 01/31/2015 Inactive terazosin 5 mg tablet RxNorm: 236921 1 Tablet(s) PO daily 01/02/2015 01/01/2015 Inactive levothyroxine 125 mcg tablet RxNorm: 400541 1 Tablet(s) PO daily 01/02/2015 01/31/2015 Inactive terazosin 5 mg tablet RxNorm: 097869 1/2 Tablet(s) PO daily 01/02/2015 01/31/2015 Inactive losartan 100 mg tablet RxNorm: 318164 1 Tablet(s) PO daily 12/24/2014 04/22/2015 Inactive losartan 100 mg tablet RxNorm: 483273 1 Tablet(s) PO daily 12/24/2014 12/23/2014 Inactive Contour Test Strips RxNorm: Miscellaneous test blood sugars BID 12/06/2014 12/05/2014 Inactive dx 250.00 Contour Test Strips RxNorm: Miscellaneous test blood sugars BID or UD 12/06/2014 06/23/2015 Inactive dx 250.00 [SAVINGS FOR NON-COVERED DRUGS -- BIN:[id number], PCN: [id number], Group: [id number], ID# [id number], Questions: . THIS IS NOT INSURANCE.] folic acid 1 mg tablet RxNorm: 148441 1 Tablet(s) PO QHS No Start Date Active Microlet Lancet RxNorm: Miscellaneous Test BID or Ud No Start Date Active 250.0 aspirin 81 mg tablet,delayed release RxNorm: 111942 1 Tablet(s) PO daily No Start Date Active Stool Softener 100 mg capsule RxNorm: 7898540 1 Capsule(s) PO every other day No Start Date Active folic acid oral RxNorm: 4511 oral No Start Date 05/19/2017 Inactive cyanocobalamin (vit B-12) 100 mcg tablet RxNorm: 471565 1 Tablet(s) PO daily No Start Date 02/14/2017 Inactive hydrochlorothiazide 25 mg tablet RxNorm: 000349 1 Tablet(s) PO daily No Start Date 10/05/2015 Inactive Stool Softener 100 mg capsule RxNorm: 5981167 1 Capsule(s) PO daily No Start Date 05/18/2017 Inactive Humulin 70/30 100 unit/mL subcutaneous suspension RxNorm: 522997 20 Unit(s) SQ QAM No Start Date 07/21/2015 Inactive levothyroxine 100 mcg tablet RxNorm: 417957 1 Tablet(s) PO daily No Start Date 05/10/2018 Inactive Lantus Solostar 100 unit/mL (3 mL) subcutaneous insulin pen RxNorm: 098424 20 Unit(s) SQ QHS No Start Date 01/07/2015 Inactive ferrous sulfate 325 mg (65 mg iron) tablet RxNorm: 899132 1 Tablet(s) PO daily No Start Date 05/18/2017 Inactive Medication Administered Medication Codes Instructions Start Date Status cyanocobalamin (vit B-12) 1,000 mcg/mL injection solution RxNorm: 058534 1Milliliter 01/12/2018 No longer Active cyanocobalamin (vit B-12) 1,000 mcg/mL injection solution RxNorm: 041114 Milliliter 09/15/2017 No longer Active cyanocobalamin (vit B-12) 1,000 mcg/mL injection solution RxNorm: 489332 1Milliliter 08/17/2017 No longer Active cyanocobalamin (vit B-12) 1,000 mcg/mL injection solution RxNorm: 662464 1Milliliter 07/19/2017 No longer Active cyanocobalamin (vit B-12) 1,000 mcg/mL injection solution RxNorm: 687046 1Milliliter 05/19/2017 No longer Active cyanocobalamin (vit B-12) 1,000 mcg/mL injection solution RxNorm: 159214 1Milliliter 04/06/2017 No longer Active cyanocobalamin (vit B-12) 1,000 mcg/mL injection solution RxNorm: 024367 Milliliter 01/04/2017 No longer Active cyanocobalamin (vit B-12) 1,000 mcg/mL injection solution RxNorm: 605763 1Milliliter 12/10/2016 No longer Active cyanocobalamin (vit B-12) 1,000 mcg/mL injection solution RxNorm: 527211 Milliliter 10/13/2016 No longer Active cyanocobalamin (vit B-12) 1,000 mcg/mL injection solution RxNorm: 780160 1Milliliter 09/03/2016 No longer Active cyanocobalamin (vit B-12) 1,000 mcg/mL injection solution RxNorm: 600156 Milliliter 07/29/2016 No longer Active cyanocobalamin (vit B-12) 1,000 mcg/mL injection solution RxNorm: 548413 1Milliliter 06/03/2016 No longer Active cyanocobalamin (vit B-12) 1,000 mcg/mL injection solution RxNorm: 456629 Milliliter 09/15/2015 No longer Active cyanocobalamin (vit B-12) 1,000 mcg/mL injection solution RxNorm: 825360 Milliliter 09/08/2015 No longer Active cyanocobalamin (vit B-12) 1,000 mcg/mL injection solution RxNorm: 120893 Milliliter 09/01/2015 No longer Active cyanocobalamin (vit B-12) 1,000 mcg/mL injection solution RxNorm: 819382 Milliliter 08/25/2015 No longer Active Immunizations Vaccine [...] DIABETES TYPE II ICD-9: 250.00 04/03/2015 [place] ICD-9: 380.4 01/02/2015 Reason For Visit Reason [...] 44.3 % 08/15/2018 Cbc With Differential Ord2 Lymph% 41.4 % 08/15/2018 Cbc With Differential Ord2 MCV 92.2 fl 08/15/2018 Cbc With Differential Ord2 MCH 29.3 pg 08/15/2018 Cbc With Differential Ord2 Davison% 10.9 % 08/15/2018 Cbc With Differential Ord2 [...] 2.66 K/ul 08/15/2018 Cbc With Differential Ord2 [place] ABS# 0.7 K/ul 08/15/2018 Cbc With Differential Ord2 Eos ABS# 0.2 K/ul 08/15/2018 Cbc With Differential Ord2 Baso ABS# 0.0 K/ul 08/15/2018 Comp Metabolic Tpw894 NA 139 mEq/L 08/15/2018 Comp Metabolic Yuo353 K 4.0 mEq/L 08/15/2018 Comp Metabolic Rst098 CL 107 mEq/L 08/15/2018 Comp Metabolic Xtf394 CO2 25.0 mEq/L 08/15/2018 Comp Metabolic Ztu013 ANION GAP 11 08/15/2018 Comp Metabolic Mku140 GLUCOSE 142 mg/dL 08/15/2018 Comp Metabolic Qen001 Creat 0.9 mg/dL 08/15/2018 Comp Metabolic Iry080 eGFR 64 ml/min/1.73m2 08/15/2018 Comp Metabolic Ixq942 BUN 22 mg/dL 08/15/2018 Comp Metabolic Xtu904 B/C Ratio 24.4 Ratio 08/15/2018 Comp Metabolic Dxv453 CALCIUM 9.3 mg/dL 08/15/2018 Comp Metabolic Nyy097 ALK PHOS 83 U/L 08/15/2018 Comp Metabolic Fqw430 AST(SGOT) 35 U/L 08/15/2018 Comp Metabolic Wht196 ALT(SGPT) 19 U/L 08/15/2018 Comp Metabolic Fcf812 BILI T 0.6 mg/dL 08/15/2018 Comp Metabolic Vfu365 ALBUMIN 3.7 g/dL 08/15/2018 Comp Metabolic Fbd726 TPRO 6.3 g/dL 08/15/2018 Comp Metabolic Kem828 GLOB 2.6 g/dL 08/15/2018 Comp Metabolic Dqj783 A/G Ratio 1.5 Ratio 08/15/2018 Comp Metabolic Rxo585 Osmo 283 mOsmo 08/15/2018 Tsh Ord6 TSH (3rd IS) 2.43 uIU/mL 08/15/2018 %Hba1C Eri750 % HbA1c 57441- 6 7.4 % 08/15/2018 %Hba1C Owi993 Gluc Ave 166 mg/dL 08/15/2018 Free T4 Zhz205 FREE T4 1.21 ng/dL 05/15/2018 %Hba1C Oho041 % HbA1c 93736- 6 7.8 % 05/15/2018 %Hba1C Xsa155 Gluc Ave 177 mg/dL 05/15/2018 Comp Metabolic Fjs603 NA 142 mEq/L 05/15/2018 Comp Metabolic Hxd813 K 4.0 mEq/L 05/15/2018 Comp Metabolic Ssc170 CL 107 mEq/L 05/15/2018 Comp Metabolic Tpa251 CO2 28.0 mEq/L 05/15/2018 Comp Metabolic Lhv832 ANION GAP 11 05/15/2018 Comp Metabolic Dwp998 GLUCOSE 211 mg/dL 05/15/2018 Comp Metabolic Ehi363 Creat 0.9 mg/dL 05/15/2018 Comp Metabolic Sbk339 eGFR 61 ml/min/1.73m2 05/15/2018 Comp Metabolic Rmu583 BUN 21 mg/dL 05/15/2018 Comp Metabolic Ncg894 B/C Ratio 22.6 Ratio 05/15/2018 Comp Metabolic Yom704 CALCIUM 9.1 mg/dL 05/15/2018 Comp Metabolic Qwk903 ALK PHOS 85 U/L 05/15/2018 Comp Metabolic Fyb413 AST(SGOT) 36 U/L 05/15/2018 Comp Metabolic Kew837 ALT(SGPT) 19 U/L 05/15/2018 Comp Metabolic Mfc284 BILI T 0.6 mg/dL 05/15/2018 Comp Metabolic Cgo785 ALBUMIN 3.8 g/dL 05/15/2018 Comp Metabolic Jcc373 TPRO 6.2 g/dL 05/15/2018 Comp Metabolic Ifn306 GLOB 2.4 g/dL 05/15/2018 Comp Metabolic Yfb389 A/G Ratio 1.6 Ratio 05/15/2018 Comp Metabolic Yab526 Osmo 292 mOsmo 05/15/2018 Tsh Ord6 TSH (3rd IS) 0.97 uIU/mL 05/15/2018 Free T4 Kzy434 FREE T4 1.05 ng/dL 11/28/2017 Tsh Ord6 TSH (3rd IS) 1.14 uIU/mL 11/28/2017 Comp Metabolic Fdd796 NA 139 mEq/L 11/28/2017 Comp Metabolic Clh059 K 4.1 mEq/L 11/28/2017 Comp Metabolic Nbi780 CL 105 mEq/L 11/28/2017 Comp Metabolic Edd356 CO2 26.0 mEq/L 11/28/2017 Comp Metabolic Dsg750 ANION GAP 12 11/28/2017 Comp Metabolic Sds544 GLUCOSE 132 mg/dL 11/28/2017 Comp Metabolic Mhy753 Creat 0.9 mg/dL 11/28/2017 Comp Metabolic Khj908 eGFR 66 ml/min/1.73m2 11/28/2017 Comp Metabolic Hhb856 BUN 17 mg/dL 11/28/2017 Comp Metabolic Wdm077 B/C Ratio 19.5 Ratio 11/28/2017 Comp Metabolic Mrj571 CALCIUM 9.1 mg/dL 11/28/2017 Comp Metabolic Kbc739 ALK PHOS 78 U/L 11/28/2017 Comp Metabolic Ptm321 AST(SGOT) 35 U/L 11/28/2017 Comp Metabolic Nvo423 ALT(SGPT) 17 U/L 11/28/2017 Comp Metabolic Frz921 BILI T 0.6 mg/dL 11/28/2017 Comp Metabolic Xkd822 ALBUMIN 3.9 g/dL 11/28/2017 Comp Metabolic Sha967 TPRO 6.4 g/dL 11/28/2017 Comp Metabolic Bym478 GLOB 2.5 g/dL 11/28/2017 Comp Metabolic Rxt416 A/G Ratio 1.6 Ratio 11/28/2017 Comp Metabolic Ttr272 Osmo 281 mOsmo 11/28/2017 %Hba1C Voy293 % HbA1c 31815- 6 7.7 % 11/25/2017 %Hba1C Mxm212 Gluc Ave 174 mg/dL 11/25/2017 Cbc With [...] 29.8 pg 11/25/2017 Cbc With Differential Ord2 Davison% 10.2 % 11/25/2017 Cbc With Differential Ord2 [...] 2.56 K/ul 11/25/2017 Cbc With Differential Ord2 [place] ABS# 0.7 K/ul 11/25/2017 Cbc With Differential Ord2 Eos ABS# 0.2 K/ul 11/25/2017 Cbc With Differential Ord2 Baso ABS# 0.0 K/ul 11/25/2017 Free T4 Yhf573 FREE T4 1.10 ng/dL 05/19/2017 %Hba1C Jrd863 % HbA1c 63210- 6 6.8 % 05/19/2017 %Hba1C Mhr632 Gluc Ave 148 mg/dL 05/19/2017 Tsh Ord6 hTSH II 1.73 uIU/mL 05/19/2017 B12 Sgj290 B12 >1500.00 pg/ml 05/19/2017 Comp Metabolic Jrk470 NA 140 mEq/L 05/19/2017 Comp Metabolic Wsv081 K 3.8 mEq/L 05/19/2017 Comp Metabolic Wzo995 CL 108 mEq/L 05/19/2017 Comp Metabolic Ivy251 CO2 21.0 mEq/L 05/19/2017 Comp Metabolic Ull128 ANION GAP 15 05/19/2017 Comp Metabolic Ttt977 GLUCOSE 207 mg/dL 05/19/2017 Comp Metabolic Tgq848 Creat 1.0 mg/dL 05/19/2017 Comp Metabolic Cct961 eGFR 55 ml/min/1.73m2 05/19/2017 Comp Metabolic Wsn070 BUN 21 mg/dL 05/19/2017 Comp Metabolic Reg362 B/C Ratio 20.4 Ratio 05/19/2017 Comp Metabolic Afk643 CALCIUM 9.1 mg/dL 05/19/2017 Comp Metabolic Fyh636 ALK PHOS 74 U/L 05/19/2017 Comp Metabolic Jmj545 AST(SGOT) 32 U/L 05/19/2017 Comp Metabolic Erq499 ALT(SGPT) 15 U/L 05/19/2017 Comp Metabolic Cjc234 BILI T 0.6 mg/dL 05/19/2017 Comp Metabolic Wjz852 ALBUMIN 3.9 g/dL 05/19/2017 Comp Metabolic Izk665 TPRO 6.2 g/dL 05/19/2017 Comp Metabolic Lwd829 GLOB 2.3 g/dL 05/19/2017 Comp Metabolic Swc300 A/G Ratio 1.6 Ratio 05/19/2017 Comp Metabolic Foh894 Osmo 288 mOsmo 05/19/2017 Cbc With Differential Ord2 WBC 8.04 [...] 30.3 pg 05/19/2017 Cbc With Differential Ord2 Davison% 6.8 % 05/19/2017 Cbc With Differential Ord2 [...] 1.64 K/ul 05/19/2017 Cbc With Differential Ord2 [place] ABS# 0.6 K/ul 05/19/2017 Cbc With Differential [...] 29.3 pg 12/10/2016 Cbc With Differential Ord2 Davison% 7.1 % 12/10/2016 Cbc With Differential Ord2 [...] 2.50 K/ul 12/10/2016 Cbc With Differential Ord2 [place] ABS# 0.5 K/ul 12/10/2016 Cbc With Differential Ord2 Eos ABS# 0.1 K/ul 12/10/2016 Cbc With Differential Ord2 Baso ABS# 0.0 K/ul 12/10/2016 B12 Mai088 B12 222.00 pg/ml 12/10/2016 %Hba1C Yri305 % HbA1c 62131- 6 7.5 % 11/16/2016 %Hba1C Pmj495 Gluc Ave 169 mg/dL 11/16/2016 Tsh Ord6 hTSH II 2.50 uIU/mL 11/16/2016 Free T4 Wpo396 FREE T4 1.03 ng/dL 11/16/2016 Comp Metabolic Syw303 NA 138 mEq/L 11/16/2016 Comp Metabolic Tyw147 K 3.8 mEq/L 11/16/2016 Comp Metabolic Gqt458 CL 103 mEq/L 11/16/2016 Comp Metabolic Hkw532 CO2 26.0 mEq/L 11/16/2016 Comp Metabolic Dfi682 ANION GAP 13 11/16/2016 Comp Metabolic Prc841 GLUCOSE 235 mg/dL 11/16/2016 Comp Metabolic Yuh750 Creat 0.9 mg/dL 11/16/2016 Comp Metabolic Old558 eGFR 62 ml/min/1.73m2 11/16/2016 Comp Metabolic Bwz915 BUN 20 mg/dL 11/16/2016 Comp Metabolic Lyl090 B/C Ratio 21.7 Ratio 11/16/2016 Comp Metabolic Ffl166 CALCIUM 8.9 mg/dL 11/16/2016 Comp Metabolic Emi289 ALK PHOS 75 U/L 11/16/2016 Comp Metabolic Sse651 AST(SGOT) 30 U/L 11/16/2016 Comp Metabolic Evt067 ALT(SGPT) 13 U/L 11/16/2016 Comp Metabolic Zwa594 BILI T 0.6 mg/dL 11/16/2016 Comp Metabolic Agq693 ALBUMIN 3.8 g/dL 11/16/2016 Comp Metabolic Nat392 TPRO 6.8 g/dL 11/16/2016 Comp Metabolic Arz015 GLOB 3.1 g/dL 11/16/2016 Comp Metabolic Rdk594 A/G Ratio 1.2 Ratio 11/16/2016 Comp Metabolic Dzo640 Osmo 286 mOsmo 11/16/2016 Lipid Ord30 CHOL 212 mg/dL 05/21/2016 Lipid Ord30 HDL 43.0 mg/dl 05/21/2016 Lipid Ord30 TRIG 164 mg/dL 05/21/2016 Lipid Ord30 LDL 136 mg/dL 05/21/2016 Lipid Ord30 C/HDL 4.9 Ratio 05/21/2016 B12 Ssf418 B12 159.00 pg/ml 05/21/2016 Folate Ord36 Folate >23.80 ng/mL 05/21/2016 Free T4 Hhf661 FREE T4 1.03 ng/dL 05/21/2016 Tsh Ord6 hTSH II 3.18 uIU/mL 05/21/2016 %Hba1C Wlq937 % HbA1c 29540- 6 7.5 % 05/21/2016 %Hba1C Qjt155 Gluc Ave 169 mg/dL 05/21/2016 GFR CALC 2501472 GFR Non Afr Amr 54 mL/min 03/15/2016 GFR CALC 0317671 GFR Afr Amr >60 mL/min 03/15/2016 CHEM 14 0656785 AST 33 U/L 03/15/2016 CHEM 14 7459039 ALT 13 U/L 03/15/2016 CHEM 14 5485370 BUN 18 mg/dL 03/15/2016 CHEM 14 5855990 ALBUMIN 3.9 g/dL 03/15/2016 CHEM 14 8087092 CHLORIDE 105 mmol/L 03/15/2016 CHEM 14 6818054 Bili Total 0.4 mg/dL 03/15/2016 CHEM 14 5286113 ALK PHOS 60 U/L 03/15/2016 CHEM 14 1988822 SODIUM 138 mmol/L 03/15/2016 CHEM 14 1282043 CREATININE 0.99 mg/dL 03/15/2016 CHEM 14 9348009 CALCIUM 9.4 mg/dL 03/15/2016 CHEM 14 4088708 POTASSIUM 3.8 mmol/L 03/15/2016 CHEM 14 1458769 TOTAL PROTEIN 6.7 g/dL 03/15/2016 CHEM 14 3082234 GLUCOSE 109 mg/dL 03/15/2016 CHEM 14 0235896 Bicarbonate 27 mmol/L 03/15/2016 CHEM 14 6100363 AGAP 6 mmol/L 03/15/2016 B12 Qit508 B12 46.00 pg/ml 08/07/2015 Iron Ord72 Iron [...] Ord2 RDW 16.6 % 08/05/2015 Free T4 Afg889 FREE T4 1.33 ng/dL 08/05/2015 %Hba1C Fdg659 % HbA1c 20115- 6 8.1 % 08/05/2015 %Hba1C Qsd449 Gluc Ave 186 mg/dL 08/05/2015 Tsh Ord6 hTSH II 0.36 uIU/mL 08/05/2015 Comp Metabolic Upa603 NA 137 mEq/L 08/05/2015 Comp Metabolic Cjh546 K 4.5 mEq/L 08/05/2015 Comp Metabolic Mpl816 CL 104 mEq/L 08/05/2015 Comp Metabolic Knh160 CO2 26.0 mEq/L 08/05/2015 Comp Metabolic Fcb717 ANION GAP 12 08/05/2015 Comp Metabolic Ibs224 GLUCOSE 146 mg/dL 08/05/2015 Comp Metabolic Yqw141 Creat 1.0 mg/dL 08/05/2015 Comp Metabolic Ctn932 eGFR 56 ml/min/1.73m2 08/05/2015 Comp Metabolic Tcd591 BUN 23 mg/dL 08/05/2015 Comp Metabolic Nrs324 B/C Ratio 22.8 Ratio 08/05/2015 Comp Metabolic Bnd176 CALCIUM 9.3 mg/dL 08/05/2015 Comp Metabolic Ase862 ALK PHOS 71 U/L 08/05/2015 Comp Metabolic Dnd505 AST(SGOT) 33 U/L 08/05/2015 Comp Metabolic Udi528 ALT(SGPT) 15 U/L 08/05/2015 Comp Metabolic Xlb679 BILI T 0.6 mg/dL 08/05/2015 Comp Metabolic Mqf148 ALBUMIN 3.9 g/dL 08/05/2015 Comp Metabolic Xep289 TPRO 6.5 g/dL 08/05/2015 Comp Metabolic Jky120 GLOB 2.6 g/dL 08/05/2015 Comp Metabolic Ojt831 A/G Ratio 1.5 Ratio 08/05/2015 Comp Metabolic Fln289 Osmo 280 mOsmo 08/05/2015 Free T4 Gne360 FREE T4 0.91 ng/dL 04/11/2015 Cbc With [...] Ord2 RDW 15.8 % 04/10/2015 Comp Metabolic Vth146 NA 134 mEq/L 04/10/2015 Comp Metabolic Eba702 K 4.1 mEq/L 04/10/2015 Comp Metabolic Fgu325 CL 105 mEq/L 04/10/2015 Comp Metabolic Rdx875 CO2 26.0 mEq/L 04/10/2015 Comp Metabolic Rnj954 ANION GAP 7 04/10/2015 Comp Metabolic Ctp981 GLUCOSE 126 mg/dL 04/10/2015 Comp Metabolic Eqn072 Creat 1.0 mg/dL 04/10/2015 Comp Metabolic Etl391 eGFR 58 ml/min/1.73m2 04/10/2015 Comp Metabolic Jpm397 BUN 29 mg/dL 04/10/2015 Comp Metabolic Fbd090 B/C Ratio 29.6 Ratio 04/10/2015 Comp Metabolic Mcv478 CALCIUM 9.3 mg/dL 04/10/2015 Comp Metabolic Pmx555 ALK PHOS 63 U/L 04/10/2015 Comp Metabolic Vla337 AST(SGOT) 31 U/L 04/10/2015 Comp Metabolic Lac728 ALT(SGPT) 14 U/L 04/10/2015 Comp Metabolic Vqi271 BILI T 0.6 mg/dL 04/10/2015 Comp Metabolic Qqq071 ALBUMIN 3.9 g/dL 04/10/2015 Comp Metabolic Ioj318 TPRO 6.3 g/dL 04/10/2015 Comp Metabolic Bof193 GLOB 2.4 g/dL 04/10/2015 Comp Metabolic Fet445 A/G Ratio 1.6 Ratio 04/10/2015 Comp Metabolic Xcc649 Osmo 276 mOsmo 04/10/2015 %Hba1C Otn798 % HbA1c 96962- 6 8.3 % 04/10/2015 %Hba1C Kuq299 Gluc Ave 192 mg/dL 04/10/2015 Tsh Ord6 [...] Date GLUC MONITOR CONT PHYS I&R CPT-4: 62191 06/05/2018 GLUCOSE MONITORING CONT CPT-4: 19949 05/22/2018 THER/PROPH/DIAG INJ SC/IM CPT-4: 59424 01/12/2018 VITAMIN B12 INJECTION CPT- 4: J3420 01/12/2018 THER/PROPH/DIAG INJ SC/IM CPT-4: 10359 09/15/2017 VITAMIN B12 INJECTION CPT- 4: J3420 09/15/2017 THER/PROPH/DIAG INJ SC/IM CPT-4: 56637 08/17/2017 VITAMIN B12 INJECTION CPT- 4: J3420 08/17/2017 THER/PROPH/DIAG INJ SC/IM CPT-4: 16784 07/19/2017 VITAMIN B12 INJECTION CPT- 4: J3420 07/19/2017 THER/PROPH/DIAG INJ SC/IM CPT-4: 60851 05/19/2017 VITAMIN B12 INJECTION CPT- 4: J3420 05/19/2017 THER/PROPH/DIAG INJ SC/IM CPT-4: 93812 04/06/2017 VITAMIN B12 INJECTION CPT- 4: J3420 04/06/2017 THER/PROPH/DIAG INJ SC/IM CPT-4: 21316 01/04/2017 VITAMIN B12 INJECTION CPT- 4: J3420 01/04/2017 THER/PROPH/DIAG INJ SC/IM CPT-4: 54233 12/10/2016 VITAMIN B12 INJECTION CPT- 4: J3420 12/10/2016 THER/PROPH/DIAG INJ SC/IM CPT-4: 87653 10/13/2016 TRIAMCINOLONE ACET INJ NOS CPT-4: J3301 10/13/2016 THER/PROPH/DIAG INJ SC/IM CPT-4: 06663 09/03/2016 VITAMIN B12 INJECTION CPT- 4: J3420 09/03/2016 THER/PROPH/DIAG INJ SC/IM CPT-4: 61083 07/29/2016 VITAMIN B12 INJECTION CPT- 4: J3420 07/29/2016 THER/PROPH/DIAG INJ SC/IM CPT-4: 43602 06/03/2016 VITAMIN B12 INJECTION CPT- 4: J3420 06/03/2016 PNEUMOCOCCAL VACC [address]: 13139454 CPT-4: 30616 04/22/2016 ADMIN PNEUMOCOCCAL VACCINE SNOMED CT: 98187903 CPT-4: G0009 04/22/2016 VITAMIN B12 INJECTION CPT- 4: J3420 09/15/2015 THER/PROPH/DIAG INJ SC/IM CPT-4: 07331 09/15/2015 THER/PROPH/DIAG INJ SC/IM CPT-4: 42374 09/08/2015 VITAMIN B12 INJECTION CPT- 4: J3420 09/08/2015 THER/PROPH/DIAG INJ SC/IM CPT-4: 72795 09/01/2015 VITAMIN B12 INJECTION CPT- 4: J3420 09/01/2015 THER/PROPH/DIAG INJ SC/IM CPT-4: 30188 08/25/2015 VITAMIN B12 INJECTION CPT- 4: J3420 08/25/2015 Vital Signs Date Vital 08/15/2018 Blood Pressure 1: 144/70 Code: 8480-6 BMI: 40.8 Code: 68635-5 Heart Rate 1: 83 bpm Height: 4'11" SpO2: 97% Weight: 202 lbs 06/05/2018 Blood Pressure 1: 132/70 Code: 8480-6 BMI: 41.6 Code: 07533-6 Heart Rate 1: 70 bpm Height: 4'11" SpO2: 96% Weight: 206 lbs 05/22/2018 Blood Pressure 1: 148/72 Code: 8480-6 BMI: 41.6 Code: 90369-5 Heart Rate 1: 82 bpm Height: 4'11" SpO2: 95% Weight: 206 lbs 05/15/2018 Blood Pressure 1: 140/80 Code: 8480-6 BMI: 41.6 Code: 99729-5 Heart Rate 1: 86 bpm Height: 4'11" SpO2: 92% Weight: 206 lbs 01/12/2018 Blood Pressure 1: 140/78 Code: 8480-6 BMI: 42.2 Code: 82818-1 Heart Rate 1: 73 bpm Height: 4'11" SpO2: 97% Weight: 209 lbs 11/25/2017 Blood Pressure 1: 140/68 Code: 8480-6 BMI: 42.2 Code: 88377-7 Heart Rate 1: 76 bpm Height: 4'11" SpO2: 94% Weight: 209 lbs 09/15/2017 Blood Pressure 1: 146/67 Code: 8480-6 BMI: 42.2 Code: 68999-9 Heart Rate 1: 69 bpm Height: 4'11" SpO2: 97% Weight: 209 lbs 08/17/2017 Blood Pressure 1: 144/70 Code: 8480-6 BMI: 41.8 Code: 95979-3 Heart Rate 1: 63 bpm Height: 4'11" SpO2: 97% Weight: 207 lbs 07/19/2017 Blood Pressure 1: 142/74 Code: 8480-6 BMI: 41.4 Code: 29749-2 Heart Rate 1: 71 bpm Height: 4'11" SpO2: 96% Weight: 205 lbs 05/19/2017 Blood Pressure 1: 148/76 Code: 8480-6 BMI: 42.8 Code: 27420-6 Heart Rate 1: 72 bpm Height: 4'11" SpO2: 94% Weight: 212 lbs 02/15/2017 Blood Pressure 1: 154/70 Code: 8480-6 BMI: 42.5 Code: 81557-2 Heart Rate 1: 68 bpm Height: 4'11" SpO2: 97% Weight: 210 lbs 8 oz 11/16/2016 Blood Pressure 1: 142/78 Code: 8480-6 BMI: 41.6 Code: 36215-3 Heart Rate 1: 68 bpm Height: 4'11" SpO2: 95% Temperature: 36.0 (C) / 96.8 (F) Weight: 206 lbs 08/19/2016 Blood Pressure 1: 120/74 Code: 8480-6 BMI: 41.6 Code: 62838-8 Heart Rate 1: 75 bpm Height: 4'11" SpO2: 95% Weight: 206 lbs 07/15/2016 Blood Pressure 1: 140/76 Code: 8480-6 BMI: 42.0 Code: 26886-7 Heart Rate 1: 76 bpm Height: 4'11" SpO2: 96% Weight: 208 lbs 06/03/2016 Blood Pressure 1: 130/78 Code: 8480-6 BMI: 42.8 Code: 34054-2 Heart Rate 1: 72 bpm Height: 4'11" SpO2: 98% Weight: 212 lbs 04/22/2016 Blood Pressure 1: 142/84 Code: 8480-6 BMI: 41.8 Code: 76153-2 Heart Rate 1: 86 bpm Height: 4'11" SpO2: 92% Weight: 207 lbs 01/22/2016 Blood Pressure 1: 162/64 Code: 8480-6 BMI: 41.2 Code: 88964-7 Heart Rate 1: 70 bpm Height: 4'11" SpO2: 97% Weight: 204 lbs 10/23/2015 Blood Pressure 1: 130/70 Code: 8480-6 BMI: 40.4 Code: 71700-4 Heart Rate 1: 72 bpm Height: 4'11" SpO2: 95% Weight: 200 lbs 09/12/2015 Blood Pressure 1: 142/62 Code: 8480-6 BMI: 39.4 Code: 53048-8 Heart Rate 1: 63 bpm Height: 4'11" SpO2: 96% Weight: 195 lbs 08/05/2015 Blood Pressure 1: 144/60 Code: 8480-6 BMI: 41.0 Code: 23642-8 Heart Rate 1: 92 bpm Height: 4'11" SpO2: 97% SpO2: 90% Weight: 203 lbs 04/03/2015 Blood Pressure 1: 142/68 Code: 8480-6 BMI: 40.6 Code: 46785-0 Heart Rate 1: 77 bpm Height: 4'11" SpO2: 95% Weight: 201 lbs 01/30/2015 Blood Pressure 1: 150/72 Code: 8480-6 BMI: 40.2 Code: 95688-5 Heart Rate 1: 64 bpm Height: 4'11" Weight: 199 lbs 01/02/2015 Blood Pressure 1: 136/72 Code: 8480-6 BMI: 39.8 Code: 33808-8 Heart Rate 1: 68 bpm Height: 4'11" [...] data Encounters Encounter Performer Location Codes Date ([id number]) 81261 EST. PATIENT, LEVEL IV Diagnosis: Type 2 diabetes mellitus with hyperglycemia[ICD10: E11.65] Diagnosis: Essential (primary) hypertension[ICD10: I10] Diagnosis: Chronic kidney disease, stage 3 (moderate)[ICD10: N18.3] Diagnosis: Low back pain[ICD10: M54.5] [facility] CPT-4: 57146 08/15/2018 ([id number]) 83280 EST. PATIENT, LEVEL III Diagnosis: Type 2 diabetes mellitus with hyperglycemia[ICD10: E11.65] [facility] CPT-4: 61436 06/05/2018 ([id number]) Miscellaneous no charge Diagnosis: Type 2 diabetes mellitus with hyperglycemia[ICD10: E11.65] Jennifer Knox MD, [facility] CPT-4: 32424 05/29/2018 ([id number]) 50655 EST. PATIENT, LEVEL IV Diagnosis: Type 2 diabetes mellitus with hyperglycemia[ICD10: E11.65] Diagnosis: Essential (primary) hypertension[ICD10: I10] Diagnosis: Hypothyroidism, unspecified[ICD10: E03.9] Giselle Knox MD, [facility] CPT-4: 70376 05/15/2018 ([id number]) 12776 EST. PATIENT, LEVEL IV Diagnosis: Essential (primary) hypertension[ICD10: I10] Diagnosis: Type 2 diabetes mellitus with hyperglycemia[ICD10: E11.65] Diagnosis: Hypothyroidism, unspecified[ICD10: E03.9] Diagnosis: Spinal stenosis, lumbar region without neurogenic claudication[ICD10: M48.061] Diagnosis: Vitamin B12 deficiency anemia due to intrinsic factor deficiency[ICD10: D51.0] Giselle Knox MD, [facility] CPT-4: 45693 01/12/2018 ([id number]) 43937 EST. PATIENT, LEVEL IV Diagnosis: Varicose veins of bilateral lower extremities with pain[ICD10: I83.813] Diagnosis: Low back pain[ICD10: M54.5] Diagnosis: Hypothyroidism, unspecified[ICD10: E03.9] Diagnosis: Type 2 diabetes mellitus with hyperglycemia[ICD10: E11.65] Giselle Knox MD, [facility] CPT-4: 22667 11/25/2017 41410 EST. PATIENT, LEVEL IV Diagnosis: Localized edema[ICD10: R60.0] Diagnosis: Vitamin B12 deficiency anemia due to intrinsic factor deficiency[ICD10: D51.0] Chasity Knox MD, [facility] CPT-4: 95932 09/15/2017 [id number] EST. PATIENT, LEVEL IV Diagnosis: Essential (primary) hypertension[ICD10: I10] Diagnosis: Type 2 diabetes mellitus with hyperglycemia[ICD10: E11.65] Diagnosis: Vitamin B12 deficiency anemia due to intrinsic factor deficiency[ICD10: D51.0] Chasity Knox MD, [facility] CPT-4: 71746 08/17/2017 08518 EST. PATIENT, LEVEL IV Diagnosis: Type 2 diabetes mellitus with hyperglycemia[ICD10: E11.65] Diagnosis: Essential (primary) hypertension[ICD10: I10] Diagnosis: Vitamin B12 deficiency anemia due to intrinsic factor deficiency[ICD10: D51.0] Chasity Knox MD, [facility] CPT-4: 32664 07/19/2017 ([id number]) 64883 EST. PATIENT, LEVEL IV Diagnosis: Essential (primary) hypertension[ICD10: I10] Diagnosis: Type 2 diabetes mellitus with hyperglycemia[ICD10: E11.65] Diagnosis: Hypothyroidism, unspecified[ICD10: E03.9] Diagnosis: Vitamin B12 deficiency anemia due to intrinsic factor deficiency[ICD10: D51.0] Diagnosis: Chronic kidney disease, stage 3 (moderate)[ICD10: N18.3] Giselle Knox MD, [facility] CPT-4: 53570 05/19/2017 ([id number]) 76677 EST. PATIENT, LEVEL IV Diagnosis: Essential (primary) hypertension[ICD10: I10] Diagnosis: Type 2 diabetes mellitus with hyperglycemia[ICD10: E11.65] Diagnosis: Hypothyroidism, unspecified[ICD10: E03.9] Giselle Knox MD, [facility] CPT-4: 09372 02/15/2017 ([id number]) 37182 EST. PATIENT, LEVEL IV Diagnosis: Type 2 diabetes mellitus with hyperglycemia[ICD10: E11.65] Diagnosis: Cough[ICD10: R05] Diagnosis: Acute upper respiratory infection, unspecified[ICD10: J06.9] Diagnosis: Hypothyroidism, unspecified[ICD10: E03.9] Diagnosis: Chronic kidney disease, stage 3 (moderate)[ICD10: N18.3] Giselle Knox MD, [facility] CPT-4: 11131 11/16/2016 [id number]) 64831 EST. PATIENT, LEVEL IV Diagnosis: Type 2 diabetes mellitus with hyperglycemia[ICD10: E11.65] Diagnosis: Hypothyroidism, unspecified[ICD10: E03.9] Diagnosis: Essential (primary) hypertension[ICD10: I10] Giselle Knox MD, [facility] CPT-4: 00752 08/19/2016 [id number]) 26310 EST. PATIENT, LEVEL III Diagnosis: Type 2 diabetes mellitus with hyperglycemia[ICD10: E11.65] Giselle Knox MD, [facility] CPT-4: 49487 07/15/2016 ([id number]) 82471 EST. PATIENT, LEVEL IV Diagnosis: Type 2 diabetes mellitus with hyperglycemia[ICD10: E11.65] Diagnosis: Atrophy of thyroid (acquired)[ICD10: E03.4] Diagnosis: Vitamin B12 deficiency anemia due to intrinsic factor deficiency[ICD10: D51.0] Diagnosis: Chronic kidney disease, stage 3 (moderate)[ICD10: N18.3] Diagnosis: Essential (primary) hypertension[ICD10: I10] Jennifer Knox MD, [facility] CPT-4: 43076 06/03/2016 ([id number]) 25538 EST. PATIENT, LEVEL III Diagnosis: Type 2 diabetes mellitus with hyperglycemia[ICD10: E11.65] Diagnosis: Essential (primary) hypertension[ICD10: I10] Diagnosis: Chronic kidney disease, stage 3 (moderate)[ICD10: N18.3] Diagnosis: VACCIN STREP PNEUMONIAE[ICD10: Z23] Giselle Knox MD, [facility] CPT-4: 35391 04/22/2016 64531 EST. PATIENT, LEVEL IV Diagnosis: Type 2 diabetes mellitus with hyperglycemia[ICD10: E11.65] Diagnosis: Essential (primary) hypertension[ICD10: I10] Chasity Knox MD, [facility] CPT-4: 07900 01/22/2016 ([id number]) 80177 EST. PATIENT, LEVEL III Diagnosis: Type 2 diabetes mellitus with hyperglycemia[ICD10: E11.65] Diagnosis: Essential (primary) hypertension[ICD10: I10] Giselle Knox MD, [facility] CPT-4: 49673 10/23/2015 42448 EST. PATIENT, LEVEL IV Diagnosis: Type 2 diabetes mellitus with hyperglycemia[ICD10: E11.65] Diagnosis: Vitamin B12 deficiency anemia due to intrinsic factor deficiency[ICD10: D51.0] Diagnosis: Essential (primary) hypertension[ICD10: I10] Chasity Knox MD, [facility] CPT-4: 67334 09/12/2015 ([id number]) 00783 EST. PATIENT, LEVEL IV Diagnosis: Essential (primary) hypertension[ICD10: I10] Diagnosis: Type 2 diabetes mellitus with hyperglycemia[ICD10: E11.65] Diagnosis: Hypothyroidism, unspecified[ICD10: E03.9] Giselle Knox MD, [facility] CPT-4: 00598 08/05/2015 ([id number]) 86668 EST. PATIENT, LEVEL III Diagnosis: ESSENTIAL HYPERTENSION[ICD9: 401.9] Diagnosis: DIABETES TYPE II[ICD9: 250.00] Jennfier Knox MD, [facility] CPT-4: 48999 04/03/2015 ([id number]) 24987 EST. PATIENT, LEVEL IV Diagnosis: ESSENTIAL HYPERTENSION[ICD9: 401.9] Diagnosis: DIABETES TYPE II[ICD9: 250.00] Diagnosis: Hypothyroidism[ICD9: 244.9] Giselle Knox MD, [facility] CPT-4: 68525 01/30/2015 ([id number]) OFFICE VISIT, NEW - LEVEL 4 Diagnosis: ESSENTIAL HYPERTENSION[ICD9: 401.9] Diagnosis: DIABETES TYPE II[ICD9: 250.00] Diagnosis: Impacted cerumen[ICD9: 380.4] Jennifer Knox MD, [facility] CPT-4: 14991 01/02/2015 Plan of Care Planned Activity Notes [...] is not interested at this time. 08/15/2018 Patient Education: Patient Medication Summary Completed [...] plan. 06/05/2018 Appointment: Giselle Mccoy WPtel: [phone] [phone] [place] (15 min) Moderate 06/05/2018 Patient Education: Patient [...] IPRO. 05/22/2018 Appointment: Giselle Mccoy WPtel: [phone] [phone] [place] (30 min) Complex 05/22/2018 Patient Education: Patient [...] control. 05/15/2018 Appointment: Giselle Mccoy WPtel: [phone] [phone] [place] (15 min) Moderate 05/15/2018 Patient Education: [...] evaluation-recommend PT 01/12/2018 Appointment: [phone] ([facility] min) Complex 01/12/2018 Patient Education: Patient Medication Summary Completed 01/12/2018 Care Plan: Referral Order SNOMED-CT : [id number] Pending 01/12/2018 Visit Plan: Varicose veins-rx for compression stockings provided and instructed on use Low back pain-recommend xray lumbar spine Hypothyroidism- check labs DM-check Hgb A1c 11/25/2017 Appointment: [facility]is[facility] Mccoy WPtel[phone] [place] (30 min) Complex 11/25/2017 Patient Education: Patient Medication Summary Completed 11/25/2017 Care Plan: X-RAY EXAM L-S SPINE 2/3 VWS LOINC : 01145-4 Pending 11/25/2017 Visit Plan: Edema - Left [...] concerns. 09/15/2017 App[facility]ment[phone] [facility] (30 min) Complex [...] [phone] (15 min) Moderate 08/17/2017 Patient [...] at home. 07/19/2017 Appointment: [facility] [phone] [facility] [place] (15 min) Moderate 07/19/2017 Patient Education: Patient Medication Summary Completed 07/19/2017 Appointment: Jennifer Knox WPtel: [phone] [facility] (15 min) Moderate 06/13/2017 Visit Plan: [...] medications. 05/19/2017 Appointment: [facility] [phone] [phone] [place] (30 min) [...] of control. 02/15/2017 Appointment: Giselle Mccoy WPtel: [phone] [place] [phone] (15 min) Moderate 02/15/2017 Patient Education: Patient [...] labs today 11/16/2016 Appointment: Giselle Mccoy WPtel: [phone] [phone] (15 min) Moderate 11/16/2016 Patient Education: Patient [...] Cancelled 08/19/2016 Care Plan: %Hba1C LOINC : 19778-0 Cancelled 08/19/2016 Care Plan: Lipid Cancelled 08/19/2016 Care Plan: Free T4 patient coming back next week Cancelled 08/19/2016 Appointment: Injection 07/29/2016 Patient Education: Patient Medication Summary Completed 07/29/2016 Appointment: [facility] [phone] [phone] (30 min) Complex 07/22/2016 Visit Plan: Diabetes-having hypoglycemia in the mornings-insulin adjusted-patient and verbalized understanding of plan. Follow up in 1 month-call sooner if still having low blood sugars. Sinus congestion-start claritin 07/15/2016 Appointment: [facility] [phone] [phone] [place] (30 min) Complex 07/15/2016 Patient Education: [...] control. 06/03/2016 [facility]ment: [phone] [facility] [place] (15 min) Moderate 06/03/2016 Patient Education: [...] 1 MONTH 04/22/2016 Appointment: Gis[facility] Mccoy WPtel[phone] (15 min) Moderate [...] needed. 01/02/2015 Appointment: [facility] [phone] [facility] [place] (S) New Patient 01/02/2015 Patient Education: [...] levels of control. . Diabetes Mellitus - I have [...] of control. Chronic renal disease-check labs today RETURN TUESDAY FOR REMOVAL IF DEVICE . DM-here for IPRO placement in order to get a full picture of blood sugar readings in attempt to identify trends in blood sugars so we can better manage her medications. Return in 1 week for removal of IPRO. . Edema - Left greater than right [...] lumbar spine Hypothyroidism-check labs DM-check Hgb A1c DECREASE NOVOLIN 70/30 18 UNITS IN THE [...]
--- OUTSIDE RECORDS SUMMARY | 2019-01-23 09:11 | XMS REPORT | CCD ---
Author Author [facility] Organization [facility] Address [address] [place] [address] Phone Care Team Providers Care Finance Analyst Name Role Phone PP Unavailable CCM Unavailable Summary Purpose Interface Exchange Insurance Providers Payer name Policy type / Coverage type Covered alliance party ID Effective Begin Date Effective End Date [facility] Commercial Insurance [id number] Unknown Family history Runs in the family [...] Fill Instructions carvedilol 12.5 mg tablet RxNorm: 371272 TAKE ONE TABLET BY MOUTH TWICE A DAY 08/07/2018 08/01/2019 Active Humulin 70/30 U-100 Insulin 100 unit/mL subcutaneous suspension RxNorm: 599243 Unit(s) INJECT 18 UNITS UNDER THE SKIN EVERY MORNING 06/20/2018 09/11/2018 Active Humulin 70/30 U-100 Insulin 100 unit/mL subcutaneous suspension RxNorm: 830420 INJECT 18 UNITS UNDER THE SKIN EVERY MORNING 06/20/2018 06/19/2018 Inactive terazosin 2 mg capsule RxNorm: 144487 TAKE ONE CAPSULE BY MOUTH DAILY 06/09/2018 03/05/2019 Active Humulin 70/30 U-100 Insulin 100 unit/mL subcutaneous suspension RxNorm: 712745 18 Unit(s) SQ QAM 05/15/2018 06/19/2018 Inactive levothyroxine 100 mcg tablet RxNorm: 899766 1 Tablet(s) PO daily 05/11/2018 09/07/2018 Active carvedilol 12.5 mg tablet RxNorm: 312787 TAKE ONE TABLET BY MOUTH TWICE A DAY 05/05/2018 08/06/2018 Inactive losartan 100 mg tablet RxNorm: 893363 TAKE ONE TABLET BY MOUTH DAILY 03/24/2018 06/10/2020 Active terazosin 2 mg capsule RxNorm: 968516 TAKE ONE CAPSULE BY MOUTH DAILY 03/07/2018 06/08/2018 Inactive Lantus Solostar U-100 Insulin 100 unit/mL (3 mL) subcutaneous pen RxNorm: 318258 Unit(s) INJECT 24 UNITS UNDER THE SKIN EVERY NIGHT AT BEDTIME 01/12/2018 No Stop Date Active cyanocobalamin (vit B-12) 1,000 mcg/mL injection solution RxNorm: 454633 1 Milliliter(s) Inj 01/12/2018 01/12/2018 Inactive Humulin 70/30 U-100 Insulin 100 unit/mL subcutaneous suspension RxNorm: 640280 INJECT 18 UNITS UNDER THE SKIN EVERY MORNING 11/14/2017 03/05/2018 Inactive carvedilol 12.5 mg tablet RxNorm: 829932 TAKE ONE TABLET BY MOUTH TWICE A DAY 11/07/2017 05/04/2018 Inactive cyanocobalamin (vit B-12) 1,000 mcg/mL injection solution RxNorm: 672596 Milliliter(s) Inj 09/15/2017 09/15/2017 Inactive terazosin 2 mg capsule RxNorm: 456973 Capsule(s) TAKE ONE CAPSULE BY MOUTH DAILY 09/07/2017 03/05/2018 Inactive Lantus Solostar 100 unit/mL (3 mL) subcutaneous insulin pen RxNorm: 782393 INJECT 35 UNITS UNDER THE SKIN EVERY NIGHT AT BEDTIME 08/29/2017 01/11/2018 Inactive One Touch Test strips RxNorm: 1 test Miscellaneous BID 08/22/2017 08/16/2018 Active Contour Test Strips RxNorm: TEST BLOOD SUGAR TWO TIMES A DAY E11.65 08/22/2017 02/22/2019 Active Tamiflu 75 mg capsule RxNorm: 012010 1 Capsule(s) PO daily 08/17/2017 08/16/2017 Inactive Tamiflu 75 mg capsule RxNorm: 436257 1 Capsule(s) PO daily 08/17/2017 08/26/2017 Inactive cyanocobalamin (vit B-12) 1,000 mcg/mL injection solution RxNorm: 767589 1 Milliliter(s) Inj 08/17/2017 08/17/2017 Inactive carvedilol 12.5 mg tablet RxNorm: 258724 TAKE ONE TABLET BY MOUTH TWICE A DAY 08/10/2017 11/06/2017 Inactive cyanocobalamin (vit B-12) 1,000 mcg/mL injection solution RxNorm: 101132 1 Milliliter(s) Inj 07/19/2017 07/19/2017 Inactive Humulin 70/30 100 unit/mL subcutaneous suspension RxNorm: 684151 14 Unit(s) SQ QAM 07/06/2017 05/14/2018 Inactive Lantus Solostar 100 unit/mL (3 mL) subcutaneous insulin pen RxNorm: 587848 26 Unit(s) SQ QHS 07/06/2017 08/28/2017 Inactive losartan 100 mg tablet RxNorm: 884768 TAKE ONE TABLET BY MOUTH DAILY 06/07/2017 03/23/2018 Inactive Lantus Solostar 100 unit/mL (3 mL) subcutaneous insulin pen RxNorm: 589941 28 Unit(s) SQ QHS 05/19/2017 07/05/2017 Inactive cyanocobalamin (vit B-12) 1,000 mcg/mL injection solution RxNorm: 647890 1 Milliliter(s) Inj 05/19/2017 05/19/2017 Inactive terazosin 2 mg capsule RxNorm: 733535 TAKE ONE CAPSULE BY MOUTH DAILY 05/16/2017 09/06/2017 Inactive cyanocobalamin (vit B-12) 1,000 mcg/mL injection solution RxNorm: 091685 1 Milliliter(s) Inj 04/06/2017 04/06/2017 Inactive cyanocobalamin (vit B-12) 1,000 mcg/mL injection solution RxNorm: 087507 Milliliter(s) Inj 01/04/2017 01/04/2017 Inactive Humulin 70/30 U-100 Insulin 100 unit/mL subcutaneous suspension RxNorm: 980425 18 Unit(s) SQ QAM 12/22/2016 06/04/2017 Inactive cyanocobalamin (vit B-12) 1,000 mcg/mL injection solution RxNorm: 415471 1 Milliliter(s) Inj 12/10/2016 12/10/2016 Inactive Zithromax Z-Jose 250 mg tablet RxNorm: 870473 1 Tablet(s) PO UD 11/16/2016 11/20/2016 Inactive terazosin 2 mg capsule RxNorm: 814007 TAKE ONE CAPSULE BY MOUTH DAILY 11/08/2016 05/06/2017 Inactive Lantus Solostar 100 unit/mL (3 mL) subcutaneous insulin pen RxNorm: 465981 INJECT 35 UNITS UNDER THE SKIN EVERY NIGHT AT BEDTIME 10/22/2016 07/18/2017 Inactive cyanocobalamin (vit B-12) 1,000 mcg/mL injection solution RxNorm: 742314 Milliliter(s) Inj 10/13/2016 10/13/2016 Inactive cyanocobalamin (vit B-12) 1,000 mcg/mL injection solution RxNorm: 763633 1 Milliliter(s) Inj 09/03/2016 09/03/2016 Inactive Contour Test Strips RxNorm: TEST BLOOD SUGAR TWO TIMES A DAY E11.65 08/19/2016 08/21/2017 Inactive carvedilol 12.5 mg tablet RxNorm: 246944 TAKE ONE TABLET BY MOUTH TWICE A DAY 08/05/2016 01/01/2017 Inactive carvedilol 12.5 mg tablet RxNorm: 734868 TAKE ONE TABLET BY MOUTH TWICE A DAY 08/05/2016 01/01/2017 Inactive carvedilol 12.5 mg tablet RxNorm: 010726 1 Tablet(s) PO BID 08/04/2016 01/30/2017 Inactive cyanocobalamin (vit B-12) 1,000 mcg/mL injection solution RxNorm: 582325 Milliliter(s) Inj 07/29/2016 07/29/2016 Inactive Lantus Solostar 100 unit/mL (3 mL) subcutaneous insulin pen RxNorm: 059672 30 Unit(s) SQ QHS 07/15/2016 05/18/2017 Inactive Humulin 70/30 100 unit/mL subcutaneous suspension RxNorm: 960335 18 Unit(s) SQ QAM 07/15/2016 12/21/2016 Inactive losartan 100 mg tablet RxNorm: 471920 TAKE ONE TABLET BY MOUTH DAILY 07/08/2016 06/02/2017 Inactive terazosin 2 mg capsule RxNorm: 874591 TAKE ONE CAPSULE BY MOUTH DAILY 06/10/2016 11/06/2016 Inactive cyanocobalamin (vit B-12) 1,000 mcg/mL injection solution RxNorm: 564606 1 Milliliter(s) Inj 06/03/2016 06/03/2016 Inactive Humulin 70/30 100 unit/mL subcutaneous suspension RxNorm: 260490 Unit(s) INJECT 10 UNITS UNDER THE SKIN 06/01/2016 07/14/2016 Inactive Request already responded to by other means (e.g. phone or fax) Humulin 70/30 100 unit/mL subcutaneous suspension RxNorm: 187427 INJECT 10 UNITS UNDER THE SKIN BEFORE MEALS 06/01/2016 05/31/2016 Inactive Request already responded to by other means (e.g. phone or fax) Lantus Solostar 100 unit/mL (3 mL) subcutaneous insulin pen RxNorm: 524638 35 Unit(s) SQ [facility] 05/26/2016 07/14/2016 Inactive Humulin 70/30 100 unit/mL subcutaneous suspension RxNorm: 543054 10 Unit(s) SQ QA 05/24/2016 10/02/2016 Inactive Humulin 70/30 100 unit/mL subcutaneous suspension RxNorm: 086611 21 Unit(s) SQ QA 05/24/2016 05/23/2016 Inactive Lantus Solostar 100 unit/mL (3 mL) subcutaneous insulin pen RxNorm: 845290 32 Unit(s) SQ [facility] 04/22/2016 05/25/2016 Inactive Humulin 70/30 100 unit/mL subcutaneous suspension RxNorm: 854766 21 Unit(s) SQ QA 04/22/2016 05/24/2016 Inactive with breakfast hydrochlorothiazide 25 mg tablet RxNorm: 226934 TAKE ONE TABLET BY MOUTH DAILY 02/04/2016 02/16/2016 Inactive terazosin 2 mg capsule RxNorm: 013876 Capsule(s) TAKE ONE CAPSULE BY MOUTH DAILY. 12/01/2015 05/28/2016 Inactive Humulin 70/30 100 unit/mL subcutaneous suspension RxNorm: 951490 INJECT 10 UNITS UNDER THE SKIN BEFORE MEALS 11/06/2015 03/16/2016 Inactive hydrochlorothiazide 25 mg tablet RxNorm: 365068 1 Tablet(s) PO daily 10/06/2015 02/02/2016 Inactive cyanocobalamin (vit B-12) 1,000 mcg/mL injection solution RxNorm: 235568 Milliliter(s) Inj 09/15/2015 09/15/2015 Inactive Humulin 70/30 100 unit/mL subcutaneous suspension RxNorm: 361791 INJECT 10 UNITS UNDER THE SKIN BEFORE MEALS 09/08/2015 10/10/2015 Inactive cyanocobalamin (vit B-12) 1,000 mcg/mL injection solution RxNorm: 550459 Milliliter(s) Inj 09/08/2015 09/08/2015 Inactive terazosin 2 mg capsule RxNorm: 023630 TAKE ONE CAPSULE BY MOUTH DAILY. DISCONTINUE 5 MG CAPSULES 09/01/2015 11/29/2015 Inactive cyanocobalamin (vit B-12) 1,000 mcg/mL injection solution RxNorm: 804303 Milliliter(s) Inj 09/01/2015 09/01/2015 Inactive cyanocobalamin (vit B-12) 1,000 mcg/mL injection solution RxNorm: 015449 Milliliter(s) Inj 08/25/2015 08/25/2015 Inactive levothyroxine 112 mcg tablet RxNorm: 963794 1 Tablet(s) PO daily 08/06/2015 02/14/2017 Inactive Lantus Solostar 100 unit/mL (3 mL) subcutaneous insulin pen RxNorm: 283688 35 Unit(s) SQ QHS 08/06/2015 04/21/2016 Inactive Humulin 70/30 100 unit/mL subcutaneous suspension RxNorm: 091667 20 Unit(s) SQ AC 08/05/2015 04/21/2016 Inactive with breakfast carvedilol 12.5 mg tablet RxNorm: 796623 1 Tablet(s) PO BID 08/05/2015 01/31/2016 Inactive Humulin 70/30 100 unit/mL subcutaneous suspension RxNorm: 307725 10 Unit(s) SQ AC 07/22/2015 08/04/2015 Inactive losartan 100 mg tablet RxNorm: 436857 TAKE ONE TABLET BY MOUTH DAILY 06/25/2015 06/18/2016 Inactive Lantus Solostar 100 unit/mL (3 mL) subcutaneous insulin pen RxNorm: 528295 30 Unit(s) SQ QHS 06/18/2015 08/05/2015 Inactive terazosin 2 mg capsule RxNorm: 586164 1 Capsule(s) PO daily 04/14/2015 08/11/2015 Inactive DC the 5mg order terazosin 2 mg capsule RxNorm: 659976 1 Capsule(s) PO daily 04/14/2015 04/13/2015 Inactive Synthroid 25 mcg tablet RxNorm: 326272 1 Tablet(s) PO daily 04/11/2015 02/14/2017 Inactive Synthroid 25 mcg tablet RxNorm: 222379 1 Tablet(s) PO daily 04/11/2015 04/10/2015 Inactive Lantus Solostar 100 unit/mL (3 mL) subcutaneous insulin pen RxNorm: 090477 30 Unit(s) SQ QHS 04/04/2015 06/17/2015 Inactive terazosin 5 mg tablet RxNorm: 620490 1 Tablet(s) PO daily 04/03/2015 04/13/2015 Inactive Lantus Solostar 100 unit/mL (3 mL) subcutaneous insulin pen RxNorm: 991491 25 Unit(s) SQ QHS 01/08/2015 04/03/2015 Inactive carvedilol 25 mg tablet RxNorm: 737339 1 Tablet(s) PO BID 01/02/2015 01/31/2015 Inactive terazosin 5 mg tablet RxNorm: 885795 1 Tablet(s) PO daily 01/02/2015 01/01/2015 Inactive levothyroxine 125 mcg tablet RxNorm: 456426 1 Tablet(s) PO daily 01/02/2015 01/31/2015 Inactive terazosin 5 mg tablet RxNorm: 428847 1/2 Tablet(s) PO daily 01/02/2015 01/31/2015 Inactive losartan 100 mg tablet RxNorm: 785426 1 Tablet(s) PO daily 12/24/2014 04/22/2015 Inactive losartan 100 mg tablet RxNorm: 033268 1 Tablet(s) PO daily 12/24/2014 12/23/2014 Inactive Contour Test Strips RxNorm: Miscellaneous test blood sugars BID 12/06/2014 12/05/2014 Inactive dx 250.00 Contour Test Strips RxNorm: Miscellaneous test blood sugars BID or UD 12/06/2014 06/23/2015 Inactive dx 250.00 [SAVINGS FOR NON-COVERED DRUGS -- [id number], PCN: [id number], Group: [id number], ID# [id number], Questions: . THIS IS NOT INSURANCE.] folic acid 1 mg tablet RxNorm: 379198 1 Tablet(s) PO QHS No Start Date Active Microlet Lancet RxNorm: Miscellaneous Test BID or Ud No Start Date Active 250.0 aspirin 81 mg tablet,delayed release RxNorm: 154698 1 Tablet(s) PO daily No Start Date Active Stool Softener 100 mg capsule RxNorm: 4152899 1 Capsule(s) PO every other day No Start Date Active folic acid oral RxNorm: 4511 oral No Start Date 05/19/2017 Inactive cyanocobalamin (vit B-12) 100 mcg tablet RxNorm: 218432 1 Tablet(s) PO daily No Start Date 02/14/2017 Inactive hydrochlorothiazide 25 mg tablet RxNorm: 889250 1 Tablet(s) PO daily No Start Date 10/05/2015 Inactive Stool Softener 100 mg capsule RxNorm: 0449051 1 Capsule(s) PO daily No Start Date 05/18/2017 Inactive Humulin 70/30 100 unit/mL subcutaneous suspension RxNorm: 624682 20 Unit(s) SQ QAM No Start Date 07/21/2015 Inactive levothyroxine 100 mcg tablet RxNorm: 219457 1 Tablet(s) PO daily No Start Date 05/10/2018 Inactive Lantus Solostar 100 unit/mL (3 mL) subcutaneous insulin pen RxNorm: 449231 20 Unit(s) SQ QHS No Start Date 01/07/2015 Inactive ferrous sulfate 325 mg (65 mg iron) tablet RxNorm: 195327 1 Tablet(s) PO daily No Start Date 05/18/2017 Inactive Medication Administered Medication Codes Instructions Start Date Status cyanocobalamin (vit B-12) 1,000 mcg/mL injection solution RxNorm: 288878 1Milliliter 01/12/2018 No longer Active cyanocobalamin (vit B-12) 1,000 mcg/mL injection solution RxNorm: 809321 Milliliter 09/15/2017 No longer Active cyanocobalamin (vit B-12) 1,000 mcg/mL injection solution RxNorm: 341880 1Milliliter 08/17/2017 No longer Active cyanocobalamin (vit B-12) 1,000 mcg/mL injection solution RxNorm: 729483 1Milliliter 07/19/2017 No longer Active cyanocobalamin (vit B-12) 1,000 mcg/mL injection solution RxNorm: 655306 1Milliliter 05/19/2017 No longer Active cyanocobalamin (vit B-12) 1,000 mcg/mL injection solution RxNorm: 169003 1Milliliter 04/06/2017 No longer Active cyanocobalamin (vit B-12) 1,000 mcg/mL injection solution RxNorm: 823632 Milliliter 01/04/2017 No longer Active cyanocobalamin (vit B-12) 1,000 mcg/mL injection solution RxNorm: 587884 1Milliliter 12/10/2016 No longer Active cyanocobalamin (vit B-12) 1,000 mcg/mL injection solution RxNorm: 363826 Milliliter 10/13/2016 No longer Active cyanocobalamin (vit B-12) 1,000 mcg/mL injection solution RxNorm: 900785 1Milliliter 09/03/2016 No longer Active cyanocobalamin (vit B-12) 1,000 mcg/mL injection solution RxNorm: 771747 Milliliter 07/29/2016 No longer Active cyanocobalamin (vit B-12) 1,000 mcg/mL injection solution RxNorm: 390560 1Milliliter 06/03/2016 No longer Active cyanocobalamin (vit B-12) 1,000 mcg/mL injection solution RxNorm: 860100 Milliliter 09/15/2015 No longer Active cyanocobalamin (vit B-12) 1,000 mcg/mL injection solution RxNorm: 166541 Milliliter 09/08/2015 No longer Active cyanocobalamin (vit B-12) 1,000 mcg/mL injection solution RxNorm: 555904 Milliliter 09/01/2015 No longer Active cyanocobalamin (vit B-12) 1,000 mcg/mL injection solution RxNorm: 810278 Milliliter 08/25/2015 No longer Active Immunizations Vaccine [...] Item Item Code Result Date Free T4 Nkt452 FREE T4 1.21 ng/dL 05/15/2018 Tsh Ord6 TSH (3rd IS) 0.97 uIU/mL 05/15/2018 Comp Metabolic Evo316 NA 142 mEq/L 05/15/2018 Comp Metabolic Cca671 K 4.0 mEq/L 05/15/2018 Comp Metabolic Pjj776 CL 107 mEq/L 05/15/2018 Comp Metabolic Nam599 CO2 28.0 mEq/L 05/15/2018 Comp Metabolic Gsw881 ANION GAP 11 05/15/2018 Comp Metabolic Yii732 GLUCOSE 211 mg/dL 05/15/2018 Comp Metabolic Iug631 Creat 0.9 mg/dL 05/15/2018 Comp Metabolic Sjd121 eGFR 61 ml/min/1.73m2 05/15/2018 Comp Metabolic Uvx449 BUN 21 mg/dL 05/15/2018 Comp Metabolic Hse542 B/C Ratio 22.6 Ratio 05/15/2018 Comp Metabolic Gkx435 CALCIUM 9.1 mg/dL 05/15/2018 Comp Metabolic Xzb671 ALK PHOS 85 U/L 05/15/2018 Comp Metabolic Pew317 AST(SGOT) 36 U/L 05/15/2018 Comp Metabolic Pxg941 ALT(SGPT) 19 U/L 05/15/2018 Comp Metabolic Akh076 BILI T 0.6 mg/dL 05/15/2018 Comp Metabolic Ypv896 ALBUMIN 3.8 g/dL 05/15/2018 Comp Metabolic Ihs323 TPRO 6.2 g/dL 05/15/2018 Comp Metabolic Tqe574 GLOB 2.4 g/dL 05/15/2018 Comp Metabolic Sjf586 A/G Ratio 1.6 Ratio 05/15/2018 Comp Metabolic Pqf551 Osmo 292 mOsmo 05/15/2018 %Hba1C Nsm967 % HbA1c 40594- 6 7.8 % 05/15/2018 %Hba1C Qjd069 Gluc Ave 177 mg/dL 05/15/2018 Comp Metabolic Crb887 NA 139 mEq/L 11/28/2017 Comp Metabolic Pjd489 K 4.1 mEq/L 11/28/2017 Comp Metabolic Ylt961 CL 105 mEq/L 11/28/2017 Comp Metabolic Lys748 CO2 26.0 mEq/L 11/28/2017 Comp Metabolic Har099 ANION GAP 12 11/28/2017 Comp Metabolic Fff266 GLUCOSE 132 mg/dL 11/28/2017 Comp Metabolic Jzi722 Creat 0.9 mg/dL 11/28/2017 Comp Metabolic Cad934 eGFR 66 ml/min/1.73m2 11/28/2017 Comp Metabolic Iml145 BUN 17 mg/dL 11/28/2017 Comp Metabolic Qja512 B/C Ratio 19.5 Ratio 11/28/2017 Comp Metabolic Yla685 CALCIUM 9.1 mg/dL 11/28/2017 Comp Metabolic Glc306 ALK PHOS 78 U/L 11/28/2017 Comp Metabolic Iik173 AST(SGOT) 35 U/L 11/28/2017 Comp Metabolic Trp928 ALT(SGPT) 17 U/L 11/28/2017 Comp Metabolic Vae772 BILI T 0.6 mg/dL 11/28/2017 Comp Metabolic Oss117 ALBUMIN 3.9 g/dL 11/28/2017 Comp Metabolic Zdp202 TPRO 6.4 g/dL 11/28/2017 Comp Metabolic Fem926 GLOB 2.5 g/dL 11/28/2017 Comp Metabolic Vyg207 A/G Ratio 1.6 Ratio 11/28/2017 Comp Metabolic Bnu351 Osmo 281 mOsmo 11/28/2017 Tsh Ord6 TSH (3rd IS) 1.14 uIU/mL 11/28/2017 Free T4 Tfs683 FREE T4 1.05 ng/dL 11/28/2017 %Hba1C Vcn830 % HbA1c 69400- 6 7.7 % 11/25/2017 %Hba1C Srj204 Gluc Ave 174 mg/dL 11/25/2017 Cbc With [...] 29.8 pg 11/25/2017 Cbc With Differential Ord2 [place]% 10.2 % 11/25/2017 Cbc With Differential Ord2 [...] 2.56 K/ul 11/25/2017 Cbc With Differential Ord2 [place] ABS# 0.7 K/ul 11/25/2017 Cbc With Differential [...] 30.3 pg 05/19/2017 Cbc With Differential Ord2 [place]% 6.8 % 05/19/2017 Cbc With Differential Ord2 [...] 1.64 K/ul 05/19/2017 Cbc With Differential Ord2 [place] ABS# 0.6 K/ul 05/19/2017 Cbc With Differential Ord2 Eos ABS# 0.2 K/ul 05/19/2017 Cbc With Differential Ord2 Baso ABS# 0.0 K/ul 05/19/2017 B12 Tal268 B12 >1500.00 pg/ml 05/19/2017 Free T4 Vzf589 FREE T4 1.10 ng/dL 05/19/2017 %Hba1C Xfn950 % HbA1c 50053- 6 6.8 % 05/19/2017 %Hba1C Phj818 Gluc Ave 148 mg/dL 05/19/2017 Tsh Ord6 hTSH II 1.73 uIU/mL 05/19/2017 Comp Metabolic Izm036 NA 140 mEq/L 05/19/2017 Comp Metabolic Oht087 K 3.8 mEq/L 05/19/2017 Comp Metabolic Ubh380 CL 108 mEq/L 05/19/2017 Comp Metabolic Tgx054 CO2 21.0 mEq/L 05/19/2017 Comp Metabolic Yal442 ANION GAP 15 05/19/2017 Comp Metabolic Yjx699 GLUCOSE 207 mg/dL 05/19/2017 Comp Metabolic Xdh993 Creat 1.0 mg/dL 05/19/2017 Comp Metabolic Ggf494 eGFR 55 ml/min/1.73m2 05/19/2017 Comp Metabolic Kec096 BUN 21 mg/dL 05/19/2017 Comp Metabolic Kvy710 B/C Ratio 20.4 Ratio 05/19/2017 Comp Metabolic Pvu256 CALCIUM 9.1 mg/dL 05/19/2017 Comp Metabolic Tha790 ALK PHOS 74 U/L 05/19/2017 Comp Metabolic Pkb849 AST(SGOT) 32 U/L 05/19/2017 Comp Metabolic Fro674 ALT(SGPT) 15 U/L 05/19/2017 Comp Metabolic Pcq785 BILI T 0.6 mg/dL 05/19/2017 Comp Metabolic Crg744 ALBUMIN 3.9 g/dL 05/19/2017 Comp Metabolic Hby457 TPRO 6.2 g/dL 05/19/2017 Comp Metabolic Zqp741 GLOB 2.3 g/dL 05/19/2017 Comp Metabolic Yjx267 A/G Ratio 1.6 Ratio 05/19/2017 Comp Metabolic Ftx466 Osmo 288 mOsmo 05/19/2017 Cbc With Differential [...] 29.3 pg 12/10/2016 Cbc With Differential Ord2 [place]% 7.1 % 12/10/2016 Cbc With Differential Ord2 [...] 2.50 K/ul 12/10/2016 Cbc With Differential Ord2 [place] ABS# 0.5 K/ul 12/10/2016 Cbc With Differential Ord2 Eos ABS# 0.1 K/ul 12/10/2016 Cbc With Differential Ord2 Baso ABS# 0.0 K/ul 12/10/2016 B12 Hng630 B12 222.00 pg/ml 12/10/2016 %Hba1C Sdz234 % HbA1c 64595- 6 7.5 % 11/16/2016 %Hba1C Hbn860 Gluc Ave 169 mg/dL 11/16/2016 Free T4 Esp856 FREE T4 1.03 ng/dL 11/16/2016 Comp Metabolic Ydd158 NA 138 mEq/L 11/16/2016 Comp Metabolic Vho067 K 3.8 mEq/L 11/16/2016 Comp Metabolic Tpa497 CL 103 mEq/L 11/16/2016 Comp Metabolic Nmo735 CO2 26.0 mEq/L 11/16/2016 Comp Metabolic Hpk914 ANION GAP 13 11/16/2016 Comp Metabolic Mvj094 GLUCOSE 235 mg/dL 11/16/2016 Comp Metabolic Ytq111 Creat 0.9 mg/dL 11/16/2016 Comp Metabolic Ysq225 eGFR 62 ml/min/1.73m2 11/16/2016 Comp Metabolic Sbh894 BUN 20 mg/dL 11/16/2016 Comp Metabolic Jmj414 B/C Ratio 21.7 Ratio 11/16/2016 Comp Metabolic Wsr937 CALCIUM 8.9 mg/dL 11/16/2016 Comp Metabolic Xss636 ALK PHOS 75 U/L 11/16/2016 Comp Metabolic Dpu215 AST(SGOT) 30 U/L 11/16/2016 Comp Metabolic Rdv493 ALT(SGPT) 13 U/L 11/16/2016 Comp Metabolic Ucx717 BILI T 0.6 mg/dL 11/16/2016 Comp Metabolic Pvv798 ALBUMIN 3.8 g/dL 11/16/2016 Comp Metabolic Uaf529 TPRO 6.8 g/dL 11/16/2016 Comp Metabolic Kzn556 GLOB 3.1 g/dL 11/16/2016 Comp Metabolic Giy686 A/G Ratio 1.2 Ratio 11/16/2016 Comp Metabolic Bgz815 Osmo 286 mOsmo 11/16/2016 Tsh Ord6 hTSH II 2.50 uIU/mL 11/16/2016 Tsh Ord6 hTSH II 3.18 uIU/mL 05/21/2016 Lipid Ord30 CHOL 212 mg/dL 05/21/2016 Lipid Ord30 HDL 43.0 mg/dl 05/21/2016 Lipid Ord30 TRIG 164 mg/dL 05/21/2016 Lipid Ord30 LDL 136 mg/dL 05/21/2016 Lipid Ord30 C/HDL 4.9 Ratio 05/21/2016 B12 Asg981 B12 159.00 pg/ml 05/21/2016 %Hba1C Eqd895 % HbA1c 03862- 6 7.5 % 05/21/2016 %Hba1C Kdj330 Gluc Ave 169 mg/dL 05/21/2016 Folate Ord36 Folate >23.80 ng/mL 05/21/2016 Free T4 Bjn423 FREE T4 1.03 ng/dL 05/21/2016 CHEM 14 20280127 AST 33 U/L 03/15/2016 CHEM 14 20280127 ALT 13 U/L 03/15/2016 CHEM 14 20280127 BUN 18 mg/dL 03/15/2016 CHEM 14 20280127 ALBUMIN 3.9 g/dL 03/15/2016 CHEM 14 20280127 CHLORIDE 105 mmol/L 03/15/2016 CHEM 14 7215482 Bili Total 0.4 mg/dL 03/15/2016 CHEM 14 3745027 ALK PHOS 60 U/L 03/15/2016 CHEM 14 3346448 SODIUM 138 mmol/L 03/15/2016 CHEM 14 9448730 CREATININE 0.99 mg/dL 03/15/2016 CHEM 14 2191391 CALCIUM 9.4 mg/dL 03/15/2016 CHEM 14 5321496 POTASSIUM 3.8 mmol/L 03/15/2016 CHEM 14 6035532 TOTAL PROTEIN 6.7 g/dL 03/15/2016 CHEM 14 4674380 GLUCOSE 109 mg/dL 03/15/2016 CHEM 14 8192234 Bicarbonate 27 mmol/L 03/15/2016 CHEM 14 0408894 AGAP 6 mmol/L 03/15/2016 GFR CALC 0263747 GFR Non Afr Amr 54 mL/min 03/15/2016 GFR CALC 3577160 GFR Afr Amr >60 mL/min 03/15/2016 B12 Rdu793 B12 46.00 pg/ml 08/07/2015 Iron Ord72 Iron [...] Ord2 RDW 16.6 % 08/05/2015 Free T4 Vhr049 FREE T4 1.33 ng/dL 08/05/2015 Comp Metabolic Hzi799 NA 137 mEq/L 08/05/2015 Comp Metabolic Tbv765 K 4.5 mEq/L 08/05/2015 Comp Metabolic Qfq421 CL 104 mEq/L 08/05/2015 Comp Metabolic Ssw130 CO2 26.0 mEq/L 08/05/2015 Comp Metabolic Xki203 ANION GAP 12 08/05/2015 Comp Metabolic Xbd920 GLUCOSE 146 mg/dL 08/05/2015 Comp Metabolic Gyn736 Creat 1.0 mg/dL 08/05/2015 Comp Metabolic Nis937 eGFR 56 ml/min/1.73m2 08/05/2015 Comp Metabolic Bda898 BUN 23 mg/dL 08/05/2015 Comp Metabolic Yrd227 B/C Ratio 22.8 Ratio 08/05/2015 Comp Metabolic Mzz353 CALCIUM 9.3 mg/dL 08/05/2015 Comp Metabolic Dgb107 ALK PHOS 71 U/L 08/05/2015 Comp Metabolic Azp853 AST(SGOT) 33 U/L 08/05/2015 Comp Metabolic Ggo741 ALT(SGPT) 15 U/L 08/05/2015 Comp Metabolic Oeu800 BILI T 0.6 mg/dL 08/05/2015 Comp Metabolic Plo426 ALBUMIN 3.9 g/dL 08/05/2015 Comp Metabolic Jih645 TPRO 6.5 g/dL 08/05/2015 Comp Metabolic Wzg288 GLOB 2.6 g/dL 08/05/2015 Comp Metabolic Svx135 A/G Ratio 1.5 Ratio 08/05/2015 Comp Metabolic Bbh292 Osmo 280 mOsmo 08/05/2015 Tsh Ord6 hTSH II 0.36 uIU/mL 08/05/2015 %Hba1C Lqk877 % HbA1c 78659- 6 8.1 % 08/05/2015 %Hba1C Kbn023 Gluc Ave 186 mg/dL 08/05/2015 Free T4 Tlw404 FREE T4 0.91 ng/dL 04/11/2015 %Hba1C Duq466 % HbA1c 06801- 6 8.3 % 04/10/2015 %Hba1C Eze623 Gluc Ave 192 mg/dL 04/10/2015 Cbc With [...] Ord2 RDW 15.8 % 04/10/2015 Comp Metabolic Zfy764 NA 134 mEq/L 04/10/2015 Comp Metabolic Dno549 K 4.1 mEq/L 04/10/2015 Comp Metabolic Ieu768 CL 105 mEq/L 04/10/2015 Comp Metabolic Udx219 CO2 26.0 mEq/L 04/10/2015 Comp Metabolic Cqr523 ANION GAP 7 04/10/2015 Comp Metabolic Qmg442 GLUCOSE 126 mg/dL 04/10/2015 Comp Metabolic Rgm437 Creat 1.0 mg/dL 04/10/2015 Comp Metabolic Ipc464 eGFR 58 ml/min/1.73m2 04/10/2015 Comp Metabolic Bgl113 BUN 29 mg/dL 04/10/2015 Comp Metabolic Uiz478 B/C Ratio 29.6 Ratio 04/10/2015 Comp Metabolic Pnq406 CALCIUM 9.3 mg/dL 04/10/2015 Comp Metabolic Atu511 ALK PHOS 63 U/L 04/10/2015 Comp Metabolic Tko643 AST(SGOT) 31 U/L 04/10/2015 Comp Metabolic Pxi089 ALT(SGPT) 14 U/L 04/10/2015 Comp Metabolic Uij361 BILI T 0.6 mg/dL 04/10/2015 Comp Metabolic Ony898 ALBUMIN 3.9 g/dL 04/10/2015 Comp Metabolic Rxr323 TPRO 6.3 g/dL 04/10/2015 Comp Metabolic Onk993 GLOB 2.4 g/dL 04/10/2015 Comp Metabolic Vpt372 A/G Ratio 1.6 Ratio 04/10/2015 Comp Metabolic Cur218 Osmo 276 mOsmo 04/10/2015 Tsh Ord6 hTSH [...] Date GLUC MONITOR CONT PHYS I&R CPT-4: 19924 06/05/2018 GLUCOSE MONITORING CONT CPT-4: 92826 05/22/2018 THER/PROPH/DIAG INJ SC/IM CPT-4: 85539 01/12/2018 VITAMIN B12 INJECTION CPT- 4: J3420 01/12/2018 THER/PROPH/DIAG INJ SC/IM CPT-4: 76263 09/15/2017 VITAMIN B12 INJECTION CPT- 4: J3420 09/15/2017 THER/PROPH/DIAG INJ SC/IM CPT-4: 11623 08/17/2017 VITAMIN B12 INJECTION CPT- 4: J3420 08/17/2017 THER/PROPH/DIAG INJ SC/IM CPT-4: 62582 07/19/2017 VITAMIN B12 INJECTION CPT- 4: J3420 07/19/2017 THER/PROPH/DIAG INJ SC/IM CPT-4: 43671 05/19/2017 VITAMIN B12 INJECTION CPT- 4: J3420 05/19/2017 THER/PROPH/DIAG INJ SC/IM CPT-4: 20920 04/06/2017 VITAMIN B12 INJECTION CPT- 4: J3420 04/06/2017 THER/PROPH/DIAG INJ SC/IM CPT-4: 56315 01/04/2017 VITAMIN B12 INJECTION CPT- 4: J3420 01/04/2017 THER/PROPH/DIAG INJ SC/IM CPT-4: 68235 12/10/2016 VITAMIN B12 INJECTION CPT- 4: J3420 12/10/2016 THER/PROPH/DIAG INJ SC/IM CPT-4: 25069 10/13/2016 TRIAMCINOLONE ACET INJ NOS CPT-4: J3301 10/13/2016 THER/PROPH/DIAG INJ SC/IM CPT-4: 28576 09/03/2016 VITAMIN B12 INJECTION CPT- 4: J3420 09/03/2016 THER/PROPH/DIAG INJ SC/IM CPT-4: 50021 07/29/2016 VITAMIN B12 INJECTION CPT- 4: J3420 07/29/2016 THER/PROPH/DIAG INJ SC/IM CPT-4: 41929 06/03/2016 VITAMIN B12 INJECTION CPT- 4: J3420 06/03/2016 PNEUMOCOCCAL VACC [address]: 42462142 CPT-4: 71621 04/22/2016 ADMIN PNEUMOCOCCAL VACCINE SNOMED CT: 32023851 CPT-4: G0009 04/22/2016 VITAMIN B12 INJECTION CPT- 4: J3420 09/15/2015 THER/PROPH/DIAG INJ SC/IM CPT-4: 69209 09/15/2015 THER/PROPH/DIAG INJ SC/IM CPT-4: 14502 09/08/2015 VITAMIN B12 INJECTION CPT- 4: J3420 09/08/2015 THER/PROPH/DIAG INJ SC/IM CPT-4: 01193 09/01/2015 VITAMIN B12 INJECTION CPT- 4: J3420 09/01/2015 THER/PROPH/DIAG INJ SC/IM CPT-4: 38192 08/25/2015 VITAMIN B12 INJECTION CPT- 4: J3420 08/25/2015 Vital Signs Date Vital 08/15/2018 Blood Pressure 1: 144/70 Code: 8480-6 BMI: 40.8 Code: 08731-4 Heart Rate 1: 83 bpm Height: 4'11" SpO2: 97% Weight: 202 lbs 06/05/2018 Blood Pressure 1: 132/70 Code: 8480-6 BMI: 41.6 Code: 25771-9 Heart Rate 1: 70 bpm Height: 4'11" SpO2: 96% Weight: 206 lbs 05/22/2018 Blood Pressure 1: 148/72 Code: 8480-6 BMI: 41.6 Code: 73465-0 Heart Rate 1: 82 bpm Height: 4'11" SpO2: 95% Weight: 206 lbs 05/15/2018 Blood Pressure 1: 140/80 Code: 8480-6 BMI: 41.6 Code: 38292-1 Heart Rate 1: 86 bpm Height: 4'11" SpO2: 92% Weight: 206 lbs 01/12/2018 Blood Pressure 1: 140/78 Code: 8480-6 BMI: 42.2 Code: 85314-8 Heart Rate 1: 73 bpm Height: 4'11" SpO2: 97% Weight: 209 lbs 11/25/2017 Blood Pressure 1: 140/68 Code: 8480-6 BMI: 42.2 Code: 47518-3 Heart Rate 1: 76 bpm Height: 4'11" SpO2: 94% Weight: 209 lbs 09/15/2017 Blood Pressure 1: 146/67 Code: 8480-6 BMI: 42.2 Code: 91154-6 Heart Rate 1: 69 bpm Height: 4'11" SpO2: 97% Weight: 209 lbs 08/17/2017 Blood Pressure 1: 144/70 Code: 8480-6 BMI: 41.8 Code: 60372-6 Heart Rate 1: 63 bpm Height: 4'11" SpO2: 97% Weight: 207 lbs 07/19/2017 Blood Pressure 1: 142/74 Code: 8480-6 BMI: 41.4 Code: 47360-8 Heart Rate 1: 71 bpm Height: 4'11" SpO2: 96% Weight: 205 lbs 05/19/2017 Blood Pressure 1: 148/76 Code: 8480-6 BMI: 42.8 Code: 72215-1 Heart Rate 1: 72 bpm Height: 4'11" SpO2: 94% Weight: 212 lbs 02/15/2017 Blood Pressure 1: 154/70 Code: 8480-6 BMI: 42.5 Code: 37178-9 Heart Rate 1: 68 bpm Height: 4'11" SpO2: 97% Weight: 210 lbs 8 oz 11/16/2016 Blood Pressure 1: 142/78 Code: 8480-6 BMI: 41.6 Code: 66637-1 Heart Rate 1: 68 bpm Height: 4'11" SpO2: 95% Temperature: 36.0 (C) / 96.8 (F) Weight: 206 lbs 08/19/2016 Blood Pressure 1: 120/74 Code: 8480-6 BMI: 41.6 Code: 77128-6 Heart Rate 1: 75 bpm Height: 4'11" SpO2: 95% Weight: 206 lbs 07/15/2016 Blood Pressure 1: 140/76 Code: 8480-6 BMI: 42.0 Code: 88605-4 Heart Rate 1: 76 bpm Height: 4'11" SpO2: 96% Weight: 208 lbs 06/03/2016 Blood Pressure 1: 130/78 Code: 8480-6 BMI: 42.8 Code: 94040-3 Heart Rate 1: 72 bpm Height: 4'11" SpO2: 98% Weight: 212 lbs 04/22/2016 Blood Pressure 1: 142/84 Code: 8480-6 BMI: 41.8 Code: 67099-0 Heart Rate 1: 86 bpm Height: 4'11" SpO2: 92% Weight: 207 lbs 01/22/2016 Blood Pressure 1: 162/64 Code: 8480-6 BMI: 41.2 Code: 17401-8 Heart Rate 1: 70 bpm Height: 4'11" SpO2: 97% Weight: 204 lbs 10/23/2015 Blood Pressure 1: 130/70 Code: 8480-6 BMI: 40.4 Code: 08414-2 Heart Rate 1: 72 bpm Height: 4'11" SpO2: 95% Weight: 200 lbs 09/12/2015 Blood Pressure 1: 142/62 Code: 8480-6 BMI: 39.4 Code: 14318-1 Heart Rate 1: 63 bpm Height: 4'11" SpO2: 96% Weight: 195 lbs 08/05/2015 Blood Pressure 1: 144/60 Code: 8480-6 BMI: 41.0 Code: 51808-3 Heart Rate 1: 92 bpm Height: 4'11" SpO2: 90% SpO2: 97% Weight: 203 lbs 04/03/2015 Blood Pressure 1: 142/68 Code: 8480-6 BMI: 40.6 Code: 36947-4 Heart Rate 1: 77 bpm Height: 4'11" SpO2: 95% Weight: 201 lbs 01/30/2015 Blood Pressure 1: 150/72 Code: 8480-6 BMI: 40.2 Code: 75532-2 Heart Rate 1: 64 bpm Height: 4'11" Weight: 199 lbs 01/02/2015 Blood Pressure 1: 136/72 Code: 8480-6 BMI: 39.8 Code: 72431-1 Heart Rate 1: 68 bpm Height: 4'11" [...] data Encounters Encounter Performer Location Codes Date ([id number]) [id number] EST. PATIENT, LEVEL IV Diagnosis: Type 2 diabetes mellitus with hyperglycemia[ICD10: E11.65] Diagnosis: Essential (primary) hypertension[ICD10: I10] Diagnosis: Chronic kidney disease, stage 3 (moderate)[ICD10: N18.3] Diagnosis: Low back pain[ICD10: M54.5] Giselle Knox MD, [facility] CPT-4: 56189 08/15/2018 ([id number] 81911 EST. PATIENT, LEVEL III Diagnosis: Type 2 diabetes mellitus with hyperglycemia[ICD10: E11.65] Giselle Knox MD, [facility] CPT-4: 77891 06/05/2018 ([id number]) Miscellaneous no charge Diagnosis: Type 2 diabetes mellitus with hyperglycemia[ICD10: E11.65] Jennifer Knox MD, [facility] CPT-4: 30820 05/29/2018 ([id number]) 51143 EST. PATIENT, LEVEL IV Diagnosis: Type 2 diabetes mellitus with hyperglycemia[ICD10: E11.65] Diagnosis: Essential (primary) hypertension[ICD10: I10] Diagnosis: Hypothyroidism, unspecified[ICD10: E03.9] Giselle Knox MD, [facility] CPT-4: 10531 05/15/2018 ([id number] 32600 EST. PATIENT, LEVEL IV Diagnosis: Essential (primary) hypertension[ICD10: I10] Diagnosis: Type 2 diabetes mellitus with hyperglycemia[ICD10: E11.65] Diagnosis: Hypothyroidism, unspecified[ICD10: E03.9] Diagnosis: Spinal stenosis, lumbar region without neurogenic claudication[ICD10: M48.061] Diagnosis: Vitamin B12 deficiency anemia due to intrinsic factor deficiency[ICD10: D51.0] Giselle Knox MD, [facility] CPT-4: 53095 01/12/2018 ([id number]) 60590 EST. PATIENT, LEVEL IV Diagnosis: Varicose veins of bilateral lower extremities with pain[ICD10: I83.813] Diagnosis: Low back pain[ICD10: M54.5] Diagnosis: Hypothyroidism, unspecified[ICD10: E03.9] Diagnosis: Type 2 diabetes mellitus with hyperglycemia[ICD10: E11.65] Giselle Knox MD, [facility] CPT-4: 71472 11/25/2017 [id number] EST. PATIENT, LEVEL IV Diagnosis: Localized edema[ICD10: R60.0] Diagnosis: Vitamin B12 deficiency anemia due to intrinsic factor deficiency[ICD10: D51.0] Chasity Knox MD, [facility] CPT-4: 59218 09/15/2017 [id number] EST. PATIENT, LEVEL IV Diagnosis: Essential (primary) hypertension[ICD10: I10] Diagnosis: Type 2 diabetes mellitus with hyperglycemia[ICD10: E11.65] Diagnosis: Vitamin B12 deficiency anemia due to intrinsic factor deficiency[ICD10: D51.0] Chasity Knox MD, [facility] CPT-4: 26123 08/17/2017 [id number] EST. PATIENT, LEVEL IV Diagnosis: Type 2 diabetes mellitus with hyperglycemia[ICD10: E11.65] Diagnosis: Essential (primary) hypertension[ICD10: I10] Diagnosis: Vitamin B12 deficiency anemia due to intrinsic factor deficiency[ICD10: D51.0] Chasity Knox MD, [facility] CPT-4: 50543 07/19/2017 ([id number]) 08474 EST. PATIENT, LEVEL IV Diagnosis: Essential (primary) hypertension[ICD10: I10] Diagnosis: Type 2 diabetes mellitus with hyperglycemia[ICD10: E11.65] Diagnosis: Hypothyroidism, unspecified[ICD10: E03.9] Diagnosis: Vitamin B12 deficiency anemia due to intrinsic factor deficiency[ICD10: D51.0] Diagnosis: Chronic kidney disease, stage 3 (moderate)[ICD10: N18.3] Giselle Knox MD, [facility] CPT-4: 74765 05/19/2017 ([id number]) 97334 EST. PATIENT, LEVEL IV Diagnosis: Essential (primary) hypertension[ICD10: I10] Diagnosis: Type 2 diabetes mellitus with hyperglycemia[ICD10: E11.65] Diagnosis: Hypothyroidism, unspecified[ICD10: E03.9] Giselle Knox MD, [facility] CPT-4: 59711 02/15/2017 ([id number]) 52661 EST. PATIENT, LEVEL IV Diagnosis: Type 2 diabetes mellitus with hyperglycemia[ICD10: E11.65] Diagnosis: Cough[ICD10: R05] Diagnosis: Acute upper respiratory infection, unspecified[ICD10: J06.9] Diagnosis: Hypothyroidism, unspecified[ICD10: E03.9] Diagnosis: Chronic kidney disease, stage 3 (moderate)[ICD10: N18.3] Giselle Knox MD, [facility] CPT-4: 26541 11/16/2016 ([id number]) 51687 EST. PATIENT, LEVEL IV Diagnosis: Type 2 diabetes mellitus with hyperglycemia[ICD10: E11.65] Diagnosis: Hypothyroidism, unspecified[ICD10: E03.9] Diagnosis: Essential (primary) hypertension[ICD10: I10] Giselle Knox MD, [facility] CPT-4: 92518 08/19/2016 ([id number]) 26102 EST. PATIENT, LEVEL III Diagnosis: Type 2 diabetes mellitus with hyperglycemia[ICD10: E11.65] Giselle Knox MD, [facility] CPT-4: 87598 07/15/2016 ([id number]) 98542 EST. PATIENT, LEVEL IV Diagnosis: Type 2 diabetes mellitus with hyperglycemia[ICD10: E11.65] Diagnosis: Atrophy of thyroid (acquired)[ICD10: E03.4] Diagnosis: Vitamin B12 deficiency anemia due to intrinsic factor deficiency[ICD10: D51.0] Diagnosis: Chronic kidney disease, stage 3 (moderate)[ICD10: N18.3] Diagnosis: Essential (primary) hypertension[ICD10: I10] Jennifer Knox MD, [facility] CPT-4: 84611 06/03/2016 ([id number]) 23394 EST. PATIENT, LEVEL III Diagnosis: Type 2 diabetes mellitus with hyperglycemia[ICD10: E11.65] Diagnosis: Essential (primary) hypertension[ICD10: I10] Diagnosis: Chronic kidney disease, stage 3 (moderate)[ICD10: N18.3] Diagnosis: VACCIN STREP PNEUMONIAE[ICD10: Z23] Giselle Knox MD, [facility] CPT-4: 33234 04/22/2016 [id number] EST. PATIENT, LEVEL IV Diagnosis: Type 2 diabetes mellitus with hyperglycemia[ICD10: E11.65] Diagnosis: Essential (primary) hypertension[ICD10: I10] Chasity Knox MD, [facility] CPT-4: 04227 01/22/2016 ([id number]) 04501 EST. PATIENT, LEVEL III Diagnosis: Type 2 diabetes mellitus with hyperglycemia[ICD10: E11.65] Diagnosis: Essential (primary) hypertension[ICD10: I10] Giselle Knox MD, [facility] CPT-4: 42602 10/23/2015 [id number] EST. PATIENT, LEVEL IV Diagnosis: Type 2 diabetes mellitus with hyperglycemia[ICD10: E11.65] Diagnosis: Vitamin B12 deficiency anemia due to intrinsic factor deficiency[ICD10: D51.0] Diagnosis: Essential (primary) hypertension[ICD10: I10] Chasity Knox MD, [facility] CPT-4: 86132 09/12/2015 ([id number]) 71788 EST. PATIENT, LEVEL IV Diagnosis: Essential (primary) hypertension[ICD10: I10] Diagnosis: Type 2 diabetes mellitus with hyperglycemia[ICD10: E11.65] Diagnosis: Hypothyroidism, unspecified[ICD10: E03.9] Giselle Knox MD, [facility] CPT-4: 25994 08/05/2015 ([id number]) 18159 EST. PATIENT, LEVEL III Diagnosis: ESSENTIAL HYPERTENSION[ICD9: 401.9] Diagnosis: DIABETES TYPE II[ICD9: 250.00] Jennifer Knox MD, [facility] CPT-4: 22860 04/03/2015 ([id number]) 28035 EST. PATIENT, LEVEL IV Diagnosis: ESSENTIAL HYPERTENSION[ICD9: 401.9] Diagnosis: DIABETES TYPE II[ICD9: 250.00] Diagnosis: Hypothyroidism[ICD9: 244.9] Giselle Knox MD, [facility] CPT-4: 42488 01/30/2015 ([id number]) OFFICE VISIT, NEW - LEVEL 4 Diagnosis: ESSENTIAL HYPERTENSION[ICD9: 401.9] Diagnosis: DIABETES TYPE II[ICD9: 250.00] Diagnosis: Impacted cerumen[ICD9: 380.4] [facility] CPT-4: 28213 01/02/2015 Plan of Care Planned Activity Notes [...] 08/15/2018 Patient Education: Back Pain Completed 08/15/2018 Care Plan: Comp Metabolic Pending 08/15/2018 Care Plan: Cbc With Differential Pending 08/15/2018 Care Plan: %Hba1C LOINC : 18525-4 Pending 08/15/2018 Care Plan: Tsh Pending 08/15/2018 Visit Plan: DM-patient here to discuss [...] of plan. 06/05/2018 Appointment: Giselle Mccoy WPtel: [address] [place], [place] [phone] (15 min) Moderate 06/05/2018 Patient Education: Patient [...] 05/22/2018 Appointment: Giselle Mccoy WPtel: [phone] [phone] (30 min) Complex 05/22/2018 Patient Education: [...] control. 05/15/2018 Appointment: [phone] [facility] [phone] (15 min) Moderate 05/15/2018 Patient Education: Patient [...] PT 01/12/2018 Appointment: Giselle Mccoy WPtel: [phone] [phone] [place] (30 min) Complex 01/12/2018 Patient Education: Patient Medication Summary Completed 01/12/2018 Care Plan: Referral Order SNOMED-CT : [id number] Pending 01/12/2018 Visit Plan: Varicose veins-rx for compression stockings provided and instructed on use Low back pain-recommend xray lumbar spine Hypothyroidism- check labs DM-check Hgb A1c 11/25/2017 Appointment: Giselle Mccoy WPtel: [phone] [phone] [place] (30 min) Complex 11/25/2017 Patient Education: Patient Medication Summary Completed 11/25/2017 Care Plan: X-RAY EXAM L-S SPINE 2/3 VWS LOINC : 08060-1 Pending 11/25/2017 Visit Plan: Edema - Left [...] concerns. 09/15/2017 Appointment: [facility] Caldwell [phone] [facility] [place] [place] (30 min) Complex 09/15/2017 Patient Education: [...] glucose control. 08/17/2017 Appointment: Chasity Caldwell WPtel: [phone] (15 min) Moderate 08/17/2017 Patient Education: Patient [...] home. 07/19/2017 Appointment: [facility] Caldwell [phone] [facility] [place] (15 min) Moderate 07/19/2017 Patient Education: Patient Medication Summary Completed 07/19/2017 [facility]ment[phone] [phone] (15 min) Moderate 06/13/2017 Visit Plan: Hypertension [...] to medications. 05/19/2017 Appointment: Giselle Mccoy WPtel: [address] [place], [place] [phone] (30 min) [facility] 05/19/2017 Patient Education: Patient Medication Summary Completed [...] control. 02/15/2017 Appointment: [facility]ccoy [facility] [phone] [facility] [phone] (15 min) Moderate 02/15/2017 Patient Education: Patient [...] today 11/16/2016 Appointment: [facility] [phone] [facility] [phone] (15 min) Moderate 11/16/2016 Patient Education: Patient [...] of control. 08/19/2016 Appointment: Giselle Mccoy WPtel: [facility] [address] (15 min) Moderate 08/19/2016 Patient Education: Patient Medication Summary Completed 08/19/2016 Patient Education: Obesity Completed 08/19/2016 Care Plan: Tsh Cancelled 08/19/2016 Care Plan: %Hba1C [facility] : 88909-0 Cancelled 08/19/2016 Care Plan: Lipid Cancelled 08/19/2016 Care Plan: Free T4 patient coming back next week Cancelled 08/19/2016 Appointment: Injection 07/29/2016 Patient Education: Patient Medication Summary Completed 07/29/2016 Appointment: Giselle Mccoy WPtel: [address] [place] [address] (30 min) Complex 07/22/2016 Visit Plan: Diabetes-having hypoglycemia in the mornings-insulin adjusted-patient and verbalized understanding of plan. Follow up in 1 month-call sooner if still having low blood sugars. Sinus congestion-start claritin 07/15/2016 Appointment: Giselle Mccoy WPtel: [phone] (30 min) Complex 07/15/2016 Patient Education: [...] of control. 06/03/2016 Appointment: Jennifer Knox WPtel: [facility] (15 min) Moderate 06/03/2016 Patient Education: [...] MONTH 04/22/2016 Appointment: [facility]ccoy [facility] [phone] [facility] [phone] (15 min) Moderate 04/22/2016 Patient Education: Patient [...]
--- OUTSIDE RECORDS SUMMARY | 2019-01-23 09:15 | XMS REPORT | CCD ---
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 Role Phone PP Unavailable CCM Unavailable Summary Purpose Interface Exchange Insurance Providers Payer name Policy type / Coverage type Covered constitution party ID Effective Begin Date Effective End Date [facility] Commercial Insurance [id number] Unknown Family history Runs in the family [...] ICD-9: 782.3 ICD-10: R60.0 Active 09/15/2017 Unknown Chronic [...] edema ICD-9: 782.3 ICD-10: R60.0 09/15/2017 Active Chronic kidney [...] U-100 Insulin 100 unit/mL subcutaneous suspension RxNorm: 211490 Unit(s) INJECT 18 UNITS UNDER THE SKIN EVERY MORNING 06/20/2018 09/11/2018 Active Humulin 70/30 U-100 Insulin 100 unit/mL subcutaneous suspension RxNorm: 817113 INJECT 18 UNITS UNDER THE SKIN EVERY MORNING 06/20/2018 06/19/2018 Inactive terazosin 2 mg capsule RxNorm: 029039 TAKE ONE CAPSULE BY MOUTH DAILY 06/09/2018 03/05/2019 Active Humulin 70/30 U-100 Insulin 100 unit/mL subcutaneous suspension RxNorm: 251108 18 Unit(s) SQ QAM 05/15/2018 06/19/2018 Inactive levothyroxine 100 mcg tablet RxNorm: 104651 1 Tablet(s) PO daily 05/11/2018 09/07/2018 Active carvedilol 12.5 mg tablet RxNorm: 306765 TAKE ONE TABLET BY MOUTH TWICE A DAY 05/05/2018 07/28/2019 Active losartan 100 mg tablet RxNorm: 658770 TAKE ONE TABLET BY MOUTH DAILY 03/24/2018 06/10/2020 Active terazosin 2 mg capsule RxNorm: 177666 TAKE ONE CAPSULE BY MOUTH DAILY 03/07/2018 06/08/2018 Inactive Lantus Solostar U-100 Insulin 100 unit/mL (3 mL) subcutaneous pen RxNorm: 291141 Unit(s) INJECT 24 UNITS UNDER THE SKIN EVERY NIGHT AT BEDTIME 01/12/2018 No Stop Date Active cyanocobalamin (vit B-12) 1,000 mcg/mL injection solution RxNorm: 831031 1 Milliliter(s) Inj 01/12/2018 01/12/2018 Inactive Humulin 70/30 U-100 Insulin 100 unit/mL subcutaneous suspension RxNorm: 869577 INJECT 18 UNITS UNDER THE SKIN EVERY MORNING 11/14/2017 03/05/2018 Inactive carvedilol 12.5 mg tablet RxNorm: 175035 TAKE ONE TABLET BY MOUTH TWICE A DAY 11/07/2017 05/04/2018 Inactive cyanocobalamin (vit B-12) 1,000 mcg/mL injection solution RxNorm: 295737 Milliliter(s) Inj 09/15/2017 09/15/2017 Inactive terazosin 2 mg capsule RxNorm: 915440 Capsule(s) TAKE ONE CAPSULE BY MOUTH DAILY 09/07/2017 03/05/2018 Inactive Lantus Solostar 100 unit/mL (3 mL) subcutaneous insulin pen RxNorm: 645390 INJECT 35 UNITS UNDER THE SKIN EVERY NIGHT AT BEDTIME 08/29/2017 01/11/2018 Inactive One Touch Test strips RxNorm: 1 test Miscellaneous BID 08/22/2017 08/16/2018 Active Contour Test Strips RxNorm: TEST BLOOD SUGAR TWO TIMES A DAY E11.65 08/22/2017 02/22/2019 Active Tamiflu 75 mg capsule RxNorm: 031514 1 Capsule(s) PO daily 08/17/2017 08/16/2017 Inactive Tamiflu 75 mg capsule RxNorm: 478191 1 Capsule(s) PO daily 08/17/2017 08/26/2017 Inactive cyanocobalamin (vit B-12) 1,000 mcg/mL injection solution RxNorm: 710890 1 Milliliter(s) Inj 08/17/2017 08/17/2017 Inactive carvedilol 12.5 mg tablet RxNorm: 812989 TAKE ONE TABLET BY MOUTH TWICE A DAY 08/10/2017 11/06/2017 Inactive cyanocobalamin (vit B-12) 1,000 mcg/mL injection solution RxNorm: 304615 1 Milliliter(s) Inj 07/19/2017 07/19/2017 Inactive Humulin 70/30 100 unit/mL subcutaneous suspension RxNorm: 332107 14 Unit(s) SQ QAM 07/06/2017 05/14/2018 Inactive Lantus Solostar 100 unit/mL (3 mL) subcutaneous insulin pen RxNorm: 962234 26 Unit(s) SQ QHS 07/06/2017 08/28/2017 Inactive losartan 100 mg tablet RxNorm: 339956 TAKE ONE TABLET BY MOUTH DAILY 06/07/2017 03/23/2018 Inactive Lantus Solostar 100 unit/mL (3 mL) subcutaneous insulin pen RxNorm: 586351 28 Unit(s) SQ QHS 05/19/2017 07/05/2017 Inactive cyanocobalamin (vit B-12) 1,000 mcg/mL injection solution RxNorm: 774470 1 Milliliter(s) Inj 05/19/2017 05/19/2017 Inactive terazosin 2 mg capsule RxNorm: 708283 TAKE ONE CAPSULE BY MOUTH DAILY 05/16/2017 09/06/2017 Inactive cyanocobalamin (vit B-12) 1,000 mcg/mL injection solution RxNorm: 390524 1 Milliliter(s) Inj 04/06/2017 04/06/2017 Inactive cyanocobalamin (vit B-12) 1,000 mcg/mL injection solution RxNorm: 341920 Milliliter(s) Inj 01/04/2017 01/04/2017 Inactive Humulin 70/30 U-100 Insulin 100 unit/mL subcutaneous suspension RxNorm: 884276 18 Unit(s) SQ QAM 12/22/2016 06/04/2017 Inactive cyanocobalamin (vit B-12) 1,000 mcg/mL injection solution RxNorm: 998221 1 Milliliter(s) Inj 12/10/2016 12/10/2016 Inactive Zithromax Z-Jose 250 mg tablet RxNorm: 550412 1 Tablet(s) PO UD 11/16/2016 11/20/2016 Inactive terazosin 2 mg capsule RxNorm: 294177 TAKE ONE CAPSULE BY MOUTH DAILY 11/08/2016 05/06/2017 Inactive Lantus Solostar 100 unit/mL (3 mL) subcutaneous insulin pen RxNorm: 006091 INJECT 35 UNITS UNDER THE SKIN EVERY NIGHT AT BEDTIME 10/22/2016 07/18/2017 Inactive cyanocobalamin (vit B-12) 1,000 mcg/mL injection solution RxNorm: 439540 Milliliter(s) Inj 10/13/2016 10/13/2016 Inactive cyanocobalamin (vit B-12) 1,000 mcg/mL injection solution RxNorm: 873408 1 Milliliter(s) Inj 09/03/2016 09/03/2016 Inactive Contour Test Strips RxNorm: TEST BLOOD SUGAR TWO TIMES A DAY E11.65 08/19/2016 08/21/2017 Inactive carvedilol 12.5 mg tablet RxNorm: 141607 TAKE ONE TABLET BY MOUTH TWICE A DAY 08/05/2016 01/01/2017 Inactive carvedilol 12.5 mg tablet RxNorm: 244382 TAKE ONE TABLET BY MOUTH TWICE A DAY 08/05/2016 01/01/2017 Inactive carvedilol 12.5 mg tablet RxNorm: 613328 1 Tablet(s) PO BID 08/04/2016 01/30/2017 Inactive cyanocobalamin (vit B-12) 1,000 mcg/mL injection solution RxNorm: 599817 Milliliter(s) Inj 07/29/2016 07/29/2016 Inactive Lantus Solostar 100 unit/mL (3 mL) subcutaneous insulin pen RxNorm: 505776 30 Unit(s) SQ QHS 07/15/2016 05/18/2017 Inactive Humulin 70/30 100 unit/mL subcutaneous suspension RxNorm: 704737 18 Unit(s) SQ QAM 07/15/2016 12/21/2016 Inactive losartan 100 mg tablet RxNorm: 710004 TAKE ONE TABLET BY MOUTH DAILY 07/08/2016 06/02/2017 Inactive terazosin 2 mg capsule RxNorm: 840235 TAKE ONE CAPSULE BY MOUTH DAILY 06/10/2016 11/06/2016 Inactive cyanocobalamin (vit B-12) 1,000 mcg/mL injection solution RxNorm: 383053 1 Milliliter(s) Inj 06/03/2016 06/03/2016 Inactive Humulin 70/30 100 unit/mL subcutaneous suspension RxNorm: 349608 Unit(s) INJECT 10 UNITS UNDER THE SKIN 06/01/2016 07/14/2016 Inactive Request already responded to by other means (e.g. phone or fax) Humulin 70/30 100 unit/mL subcutaneous suspension RxNorm: 261848 INJECT 10 UNITS UNDER THE SKIN BEFORE MEALS 06/01/2016 05/31/2016 Inactive Request already responded to by other means (e.g. phone or fax) Lantus Solostar 100 unit/mL (3 mL) subcutaneous insulin pen RxNorm: 798790 35 Unit(s) SQ Q 05/26/2016 07/14/2016 Inactive Humulin 70/30 100 unit/mL subcutaneous suspension RxNorm: 129366 10 Unit(s) SQ QA 05/24/2016 10/02/2016 Inactive Humulin 70/30 100 unit/mL subcutaneous suspension RxNorm: 464841 21 Unit(s) SQ QAM 05/24/2016 05/23/2016 Inactive Lantus Solostar 100 unit/mL (3 mL) subcutaneous insulin pen RxNorm: 790598 32 Unit(s) SQ Q 04/22/2016 05/25/2016 Inactive Humulin 70/30 100 unit/mL subcutaneous suspension RxNorm: 998380 21 Unit(s) SQ QA 04/22/2016 05/24/2016 Inactive with breakfast hydrochlorothiazide 25 mg tablet RxNorm: 094499 TAKE ONE TABLET BY MOUTH DAILY 02/04/2016 02/16/2016 Inactive terazosin 2 mg capsule RxNorm: 790318 Capsule(s) TAKE ONE CAPSULE BY MOUTH DAILY. 12/01/2015 05/28/2016 Inactive Humulin 70/30 100 unit/mL subcutaneous suspension RxNorm: 326898 INJECT 10 UNITS UNDER THE SKIN BEFORE MEALS 11/06/2015 03/16/2016 Inactive hydrochlorothiazide 25 mg tablet RxNorm: 618576 1 Tablet(s) PO daily 10/06/2015 02/02/2016 Inactive cyanocobalamin (vit B-12) 1,000 mcg/mL injection solution RxNorm: 721072 Milliliter(s) Inj 09/15/2015 09/15/2015 Inactive Humulin 70/30 100 unit/mL subcutaneous suspension RxNorm: 961794 INJECT 10 UNITS UNDER THE SKIN BEFORE MEALS 09/08/2015 10/10/2015 Inactive cyanocobalamin (vit B-12) 1,000 mcg/mL injection solution RxNorm: 601183 Milliliter(s) Inj 09/08/2015 09/08/2015 Inactive terazosin 2 mg capsule RxNorm: 759033 TAKE ONE CAPSULE BY MOUTH DAILY. DISCONTINUE 5 MG CAPSULES 09/01/2015 11/29/2015 Inactive cyanocobalamin (vit B-12) 1,000 mcg/mL injection solution RxNorm: 413764 Milliliter(s) Inj 09/01/2015 09/01/2015 Inactive cyanocobalamin (vit B-12) 1,000 mcg/mL injection solution RxNorm: 995330 Milliliter(s) Inj 08/25/2015 08/25/2015 Inactive levothyroxine 112 mcg tablet RxNorm: 216836 1 Tablet(s) PO daily 08/06/2015 02/14/2017 Inactive Lantus Solostar 100 unit/mL (3 mL) subcutaneous insulin pen RxNorm: 294685 35 Unit(s) SQ QHS 08/06/2015 04/21/2016 Inactive Humulin 70/30 100 unit/mL subcutaneous suspension RxNorm: 275784 20 Unit(s) SQ AC 08/05/2015 04/21/2016 Inactive with breakfast carvedilol 12.5 mg tablet RxNorm: 301447 1 Tablet(s) PO BID 08/05/2015 01/31/2016 Inactive Humulin 70/30 100 unit/mL subcutaneous suspension RxNorm: 441301 10 Unit(s) SQ AC 07/22/2015 08/04/2015 Inactive losartan 100 mg tablet RxNorm: 660178 TAKE ONE TABLET BY MOUTH DAILY 06/25/2015 06/18/2016 Inactive Lantus Solostar 100 unit/mL (3 mL) subcutaneous insulin pen RxNorm: 608853 30 Unit(s) SQ QHS 06/18/2015 08/05/2015 Inactive terazosin 2 mg capsule RxNorm: 024943 1 Capsule(s) PO daily 04/14/2015 08/11/2015 Inactive DC the 5mg order terazosin 2 mg capsule RxNorm: 008609 1 Capsule(s) PO daily 04/14/2015 04/13/2015 Inactive Synthroid 25 mcg tablet RxNorm: 763607 1 Tablet(s) PO daily 04/11/2015 02/14/2017 Inactive Synthroid 25 mcg tablet RxNorm: 603074 1 Tablet(s) PO daily 04/11/2015 04/10/2015 Inactive Lantus Solostar 100 unit/mL (3 mL) subcutaneous insulin pen RxNorm: 397337 30 Unit(s) SQ QHS 04/04/2015 06/17/2015 Inactive terazosin 5 mg tablet RxNorm: 569150 1 Tablet(s) PO daily 04/03/2015 04/13/2015 Inactive Lantus Solostar 100 unit/mL (3 mL) subcutaneous insulin pen RxNorm: 973226 25 Unit(s) SQ QHS 01/08/2015 04/03/2015 Inactive carvedilol 25 mg tablet RxNorm: 892929 1 Tablet(s) PO BID 01/02/2015 01/31/2015 Inactive terazosin 5 mg tablet RxNorm: 296688 1 Tablet(s) PO daily 01/02/2015 01/01/2015 Inactive levothyroxine 125 mcg tablet RxNorm: 544238 1 Tablet(s) PO daily 01/02/2015 01/31/2015 Inactive terazosin 5 mg tablet RxNorm: 542338 1/2 Tablet(s) PO daily 01/02/2015 01/31/2015 Inactive losartan 100 mg tablet RxNorm: 855925 1 Tablet(s) PO daily 12/24/2014 04/22/2015 Inactive losartan 100 mg tablet RxNorm: 250002 1 Tablet(s) PO daily 12/24/2014 12/23/2014 Inactive Contour Test Strips RxNorm: Miscellaneous test blood sugars BID 12/06/2014 12/05/2014 Inactive dx 250.00 Contour Test Strips RxNorm: Miscellaneous test blood sugars BID or UD 12/06/2014 06/23/2015 Inactive dx 250.00 [SAVINGS FOR NON-COVERED DRUGS -- [id number], PCN: [id number], Group: [id number], ID# [id number], Questions: . THIS IS NOT INSURANCE.] folic acid 1 mg tablet RxNorm: 582067 1 Tablet(s) PO QHS No Start Date Active Microlet Lancet RxNorm: Miscellaneous Test BID or Ud No Start Date Active 250.0 aspirin 81 mg tablet,delayed release RxNorm: 027222 1 Tablet(s) PO daily No Start Date Active Stool Softener 100 mg capsule RxNorm: 5125278 1 Capsule(s) PO every other day No Start Date Active folic acid oral RxNorm: 4511 oral No Start Date 05/19/2017 Inactive cyanocobalamin (vit B-12) 100 mcg tablet RxNorm: 306705 1 Tablet(s) PO daily No Start Date 02/14/2017 Inactive hydrochlorothiazide 25 mg tablet RxNorm: 556080 1 Tablet(s) PO daily No Start Date 10/05/2015 Inactive Stool Softener 100 mg capsule RxNorm: 6769875 1 Capsule(s) PO daily No Start Date 05/18/2017 Inactive Humulin 70/30 100 unit/mL subcutaneous suspension RxNorm: 515385 20 Unit(s) SQ QAM No Start Date 07/21/2015 Inactive levothyroxine 100 mcg tablet RxNorm: 500458 1 Tablet(s) PO daily No Start Date 05/10/2018 Inactive Lantus Solostar 100 unit/mL (3 mL) subcutaneous insulin pen RxNorm: 954339 20 Unit(s) SQ QHS No Start Date 01/07/2015 Inactive ferrous sulfate 325 mg (65 mg iron) tablet RxNorm: 917000 1 Tablet(s) PO daily No Start Date 05/18/2017 Inactive Medication Administered Medication Codes Instructions Start Date Status cyanocobalamin (vit B-12) 1,000 mcg/mL injection solution RxNorm: 307379 1Milliliter 01/12/2018 No longer Active cyanocobalamin (vit B-12) 1,000 mcg/mL injection solution RxNorm: 571118 Milliliter 09/15/2017 No longer Active cyanocobalamin (vit B-12) 1,000 mcg/mL injection solution RxNorm: 044873 1Milliliter 08/17/2017 No longer Active cyanocobalamin (vit B-12) 1,000 mcg/mL injection solution RxNorm: 701180 1Milliliter 07/19/2017 No longer Active cyanocobalamin (vit B-12) 1,000 mcg/mL injection solution RxNorm: 967721 1Milliliter 05/19/2017 No longer Active cyanocobalamin (vit B-12) 1,000 mcg/mL injection solution RxNorm: 928581 1Milliliter 04/06/2017 No longer Active cyanocobalamin (vit B-12) 1,000 mcg/mL injection solution RxNorm: 074995 Milliliter 01/04/2017 No longer Active cyanocobalamin (vit B-12) 1,000 mcg/mL injection solution RxNorm: 743323 1Milliliter 12/10/2016 No longer Active cyanocobalamin (vit B-12) 1,000 mcg/mL injection solution RxNorm: 783764 Milliliter 10/13/2016 No longer Active cyanocobalamin (vit B-12) 1,000 mcg/mL injection solution RxNorm: 062346 1Milliliter 09/03/2016 No longer Active cyanocobalamin (vit B-12) 1,000 mcg/mL injection solution RxNorm: 258023 Milliliter 07/29/2016 No longer Active cyanocobalamin (vit B-12) 1,000 mcg/mL injection solution RxNorm: 328551 1Milliliter 06/03/2016 No longer Active cyanocobalamin (vit B-12) 1,000 mcg/mL injection solution RxNorm: 667281 Milliliter 09/15/2015 No longer Active cyanocobalamin (vit B-12) 1,000 mcg/mL injection solution RxNorm: 932986 Milliliter 09/08/2015 No longer Active cyanocobalamin (vit B-12) 1,000 mcg/mL injection solution RxNorm: 530269 Milliliter 09/01/2015 No longer Active cyanocobalamin (vit B-12) 1,000 mcg/mL injection solution RxNorm: 626525 Milliliter 08/25/2015 No longer Active Immunizations Vaccine [...] Item Item Code Result Date Comp Metabolic Hcu844 NA 142 mEq/L 05/15/2018 Comp Metabolic Jnx411 K 4.0 mEq/L 05/15/2018 Comp Metabolic Sni852 CL 107 mEq/L 05/15/2018 Comp Metabolic Por670 CO2 28.0 mEq/L 05/15/2018 Comp Metabolic Gnd302 ANION GAP 11 05/15/2018 Comp Metabolic Qpv593 GLUCOSE 211 mg/dL 05/15/2018 Comp Metabolic Ure391 Creat 0.9 mg/dL 05/15/2018 Comp Metabolic Mku175 eGFR 61 ml/min/1.73m2 05/15/2018 Comp Metabolic Led311 BUN 21 mg/dL 05/15/2018 Comp Metabolic Nck291 B/C Ratio 22.6 Ratio 05/15/2018 Comp Metabolic Xnj200 CALCIUM 9.1 mg/dL 05/15/2018 Comp Metabolic Gun383 ALK PHOS 85 U/L 05/15/2018 Comp Metabolic Qji978 AST(SGOT) 36 U/L 05/15/2018 Comp Metabolic Xvf275 ALT(SGPT) 19 U/L 05/15/2018 Comp Metabolic Ezw071 BILI T 0.6 mg/dL 05/15/2018 Comp Metabolic Sjx834 ALBUMIN 3.8 g/dL 05/15/2018 Comp Metabolic Rzi353 TPRO 6.2 g/dL 05/15/2018 Comp Metabolic Jqu203 GLOB 2.4 g/dL 05/15/2018 Comp Metabolic Aaz184 A/G Ratio 1.6 Ratio 05/15/2018 Comp Metabolic Emm072 Osmo 292 mOsmo 05/15/2018 %Hba1C Rmd158 % HbA1c 36118- 6 7.8 % 05/15/2018 %Hba1C Ile011 Gluc Ave 177 mg/dL 05/15/2018 Tsh Ord6 TSH (3rd IS) 0.97 uIU/mL 05/15/2018 Free T4 Kzc130 FREE T4 1.21 ng/dL 05/15/2018 Free T4 Jkb796 FREE T4 1.05 ng/dL 11/28/2017 Tsh Ord6 TSH (3rd IS) 1.14 uIU/mL 11/28/2017 Comp Metabolic Sxl850 NA 139 mEq/L 11/28/2017 Comp Metabolic Ofe509 K 4.1 mEq/L 11/28/2017 Comp Metabolic Idw707 CL 105 mEq/L 11/28/2017 Comp Metabolic Kdp146 CO2 26.0 mEq/L 11/28/2017 Comp Metabolic Krm280 ANION GAP 12 11/28/2017 Comp Metabolic Ydi665 GLUCOSE 132 mg/dL 11/28/2017 Comp Metabolic Hrn279 Creat 0.9 mg/dL 11/28/2017 Comp Metabolic Nue619 eGFR 66 ml/min/1.73m2 11/28/2017 Comp Metabolic Pvd064 BUN 17 mg/dL 11/28/2017 Comp Metabolic Qje677 B/C Ratio 19.5 Ratio 11/28/2017 Comp Metabolic Exe738 CALCIUM 9.1 mg/dL 11/28/2017 Comp Metabolic Zkp375 ALK PHOS 78 U/L 11/28/2017 Comp Metabolic Zqo452 AST(SGOT) 35 U/L 11/28/2017 Comp Metabolic Qmz495 ALT(SGPT) 17 U/L 11/28/2017 Comp Metabolic Ylf814 BILI T 0.6 mg/dL 11/28/2017 Comp Metabolic Jhd810 ALBUMIN 3.9 g/dL 11/28/2017 Comp Metabolic Qdj605 TPRO 6.4 g/dL 11/28/2017 Comp Metabolic Eis751 GLOB 2.5 g/dL 11/28/2017 Comp Metabolic Daw383 A/G Ratio 1.6 Ratio 11/28/2017 Comp Metabolic Rjk934 Osmo 281 mOsmo 11/28/2017 %Hba1C Aup847 % HbA1c 52677- 6 7.7 % 11/25/2017 %Hba1C Ppp747 Gluc Ave 174 mg/dL 11/25/2017 Cbc With Differential Ord2 WBC 6.44 K/ul 11/25/2017 Cbc With Differential Ord2 RBC 4.13 M/ul 11/25/2017 Cbc With Differential Ord2 HGB 12.3 g/dl 11/25/2017 Cbc With Differential Ord2 HCT 37.8 % 11/25/2017 Cbc With Differential Ord2 Neut% 46.4 % 11/25/2017 Cbc With Differential Ord2 Lymph% 39.8 % 11/25/2017 Cbc With Differential Ord2 MCV 91.5 fl 11/25/2017 Cbc With Differential Ord2 MCH 29.8 pg 11/25/2017 Cbc With Differential Ord2 [place]% 10.2 % 11/25/2017 Cbc With Differential Ord2 MCHC 32.5 pg 11/25/2017 Cbc With Differential Ord2 Eos% 3.3 % 11/25/2017 Cbc With Differential Ord2 Baso% 0.3 % 11/25/2017 Cbc With Differential Ord2 PLT 175 K/ul 11/25/2017 Cbc With Differential Ord2 Neut ABS# 2.99 K/ul 11/25/2017 Cbc With Differential Ord2 RDW 14.5 % 11/25/2017 Cbc With Differential Ord2 Lymph ABS# 2.56 K/ul 11/25/2017 Cbc With Differential Ord2 [place] ABS# 0.7 K/ul 11/25/2017 Cbc With Differential Ord2 Eos ABS# 0.2 K/ul 11/25/2017 Cbc With Differential Ord2 Baso ABS# 0.0 K/ul 11/25/2017 Comp Metabolic Mfk328 NA 140 mEq/L 05/19/2017 Comp Metabolic Jtm245 K 3.8 mEq/L 05/19/2017 Comp Metabolic Vhf219 CL 108 mEq/L 05/19/2017 Comp Metabolic Yyp472 CO2 21.0 mEq/L 05/19/2017 Comp Metabolic Jej154 ANION GAP 15 05/19/2017 Comp Metabolic Aju077 GLUCOSE 207 mg/dL 05/19/2017 Comp Metabolic Zuj105 Creat 1.0 mg/dL 05/19/2017 Comp Metabolic Rsn171 eGFR 55 ml/min/1.73m2 05/19/2017 Comp Metabolic Yad514 BUN 21 mg/dL 05/19/2017 Comp Metabolic Mxb460 B/C Ratio 20.4 Ratio 05/19/2017 Comp Metabolic Llv053 CALCIUM 9.1 mg/dL 05/19/2017 Comp Metabolic Nlo486 ALK PHOS 74 U/L 05/19/2017 Comp Metabolic Xtf111 AST(SGOT) 32 U/L 05/19/2017 Comp Metabolic Ilt317 ALT(SGPT) 15 U/L 05/19/2017 Comp Metabolic Yig662 BILI T 0.6 mg/dL 05/19/2017 Comp Metabolic Tvq542 ALBUMIN 3.9 g/dL 05/19/2017 Comp Metabolic Kxf157 TPRO 6.2 g/dL 05/19/2017 Comp Metabolic Pih319 GLOB 2.3 g/dL 05/19/2017 Comp Metabolic Iar451 A/G Ratio 1.6 Ratio 05/19/2017 Comp Metabolic Urm718 Osmo 288 mOsmo 05/19/2017 Tsh Ord6 hTSH II 1.73 uIU/mL 05/19/2017 %Hba1C Xlp207 % HbA1c 63936- 6 6.8 % 05/19/2017 %Hba1C Jwy465 Gluc Ave 148 mg/dL 05/19/2017 Free T4 Fut493 FREE T4 1.10 ng/dL 05/19/2017 B12 Vmc572 B12 >1500.00 pg/ml 05/19/2017 Cbc With Differential [...] 93.6 fl 05/19/2017 Cbc With Differential Ord2 [place]% 6.8 % 05/19/2017 Cbc With Differential Ord2 MCH 30.3 pg 05/19/2017 Cbc With Differential Ord2 Eos% 1.9 % 05/19/2017 Cbc With Differential Ord2 MCHC 32.3 pg 05/19/2017 Cbc With Differential Ord2 PLT 174 K/ul 05/19/2017 Cbc With Differential Ord2 Baso% 0.1 % 05/19/2017 Cbc With Differential Ord2 Neut ABS# 5.69 K/ul 05/19/2017 Cbc With Differential Ord2 RDW 14.0 % 05/19/2017 Cbc With Differential Ord2 Lymph ABS# 1.64 K/ul 05/19/2017 Cbc With Differential Ord2 [place] ABS# 0.6 K/ul 05/19/2017 Cbc With Differential [...] 36.8 % 12/10/2016 Cbc With Differential Ord2 [place]% 7.1 % 12/10/2016 Cbc With Differential Ord2 MCH 29.3 pg 12/10/2016 Cbc With Differential Ord2 MCHC 31.7 pg 12/10/2016 Cbc With Differential Ord2 Eos% 2.1 % 12/10/2016 Cbc With Differential Ord2 Baso% 0.3 % 12/10/2016 Cbc With Differential Ord2 PLT 190 K/ul 12/10/2016 Cbc With Differential Ord2 Neut ABS# 3.66 K/ul 12/10/2016 Cbc With Differential Ord2 RDW 14.6 % 12/10/2016 Cbc With Differential Ord2 Lymph ABS# 2.50 K/ul 12/10/2016 Cbc With Differential Ord2 [place] ABS# 0.5 K/ul 12/10/2016 Cbc With Differential Ord2 Eos ABS# 0.1 K/ul 12/10/2016 Cbc With Differential Ord2 Baso ABS# 0.0 K/ul 12/10/2016 B12 Eju926 B12 222.00 pg/ml 12/10/2016 Free T4 Mpz258 FREE T4 1.03 ng/dL 11/16/2016 Comp Metabolic Wae459 NA 138 mEq/L 11/16/2016 Comp Metabolic Tlk478 K 3.8 mEq/L 11/16/2016 Comp Metabolic Hob509 CL 103 mEq/L 11/16/2016 Comp Metabolic Ykf922 CO2 26.0 mEq/L 11/16/2016 Comp Metabolic Pza007 ANION GAP 13 11/16/2016 Comp Metabolic Pso376 GLUCOSE 235 mg/dL 11/16/2016 Comp Metabolic Dbs431 Creat 0.9 mg/dL 11/16/2016 Comp Metabolic Ddg629 eGFR 62 ml/min/1.73m2 11/16/2016 Comp Metabolic Cwj494 BUN 20 mg/dL 11/16/2016 Comp Metabolic Qxl511 B/C Ratio 21.7 Ratio 11/16/2016 Comp Metabolic Iny832 CALCIUM 8.9 mg/dL 11/16/2016 Comp Metabolic Yoq422 ALK PHOS 75 U/L 11/16/2016 Comp Metabolic Vnt544 AST(SGOT) 30 U/L 11/16/2016 Comp Metabolic Cpr330 ALT(SGPT) 13 U/L 11/16/2016 Comp Metabolic Igs157 BILI T 0.6 mg/dL 11/16/2016 Comp Metabolic Sde640 ALBUMIN 3.8 g/dL 11/16/2016 Comp Metabolic Sow790 TPRO 6.8 g/dL 11/16/2016 Comp Metabolic Kbz845 GLOB 3.1 g/dL 11/16/2016 Comp Metabolic Ola493 A/G Ratio 1.2 Ratio 11/16/2016 Comp Metabolic Whv278 Osmo 286 mOsmo 11/16/2016 Tsh Ord6 hTSH II 2.50 uIU/mL 11/16/2016 %Hba1C Ezg617 % HbA1c 73607- 6 7.5 % 11/16/2016 %Hba1C Dxl942 Gluc Ave 169 mg/dL 11/16/2016 B12 Dje376 B12 159.00 pg/ml 05/21/2016 %Hba1C Iuu683 % HbA1c 56516- 6 7.5 % 05/21/2016 %Hba1C Tnj381 Gluc Ave 169 mg/dL 05/21/2016 Folate Ord36 Folate >23.80 ng/mL 05/21/2016 Tsh Ord6 hTSH II 3.18 uIU/mL 05/21/2016 Lipid Ord30 CHOL 212 mg/dL 05/21/2016 Lipid Ord30 HDL 43.0 mg/dl 05/21/2016 Lipid Ord30 TRIG 164 mg/dL 05/21/2016 Lipid Ord30 LDL 136 mg/dL 05/21/2016 Lipid Ord30 C/HDL 4.9 Ratio 05/21/2016 Free T4 Wwe622 FREE T4 1.03 ng/dL 05/21/2016 CHEM 14 4601462 AST 33 U/L 03/15/2016 CHEM 14 7724760 ALT 13 U/L 03/15/2016 CHEM 14 6004774 BUN 18 mg/dL 03/15/2016 CHEM 14 20280127 ALBUMIN 3.9 g/dL 03/15/2016 CHEM 14 4169189 CHLORIDE 105 mmol/L 03/15/2016 CHEM 14 3584113 Bili Total 0.4 mg/dL 03/15/2016 CHEM 14 9864759 ALK PHOS 60 U/L 03/15/2016 CHEM 14 2413151 SODIUM 138 mmol/L 03/15/2016 CHEM 14 0161282 CREATININE 0.99 mg/dL 03/15/2016 CHEM 14 3864216 CALCIUM 9.4 mg/dL 03/15/2016 CHEM 14 5628404 POTASSIUM 3.8 mmol/L 03/15/2016 CHEM 14 1689562 TOTAL PROTEIN 6.7 g/dL 03/15/2016 CHEM 14 3698979 GLUCOSE 109 mg/dL 03/15/2016 CHEM 14 5977990 Bicarbonate 27 mmol/L 03/15/2016 CHEM 14 5825162 AGAP 6 mmol/L 03/15/2016 GFR CALC 3068326 GFR Non Afr Amr 54 mL/min 03/15/2016 GFR CALC 5021634 GFR Afr Amr >60 mL/min 03/15/2016 Iron Ord72 Iron 66 ug/dl 08/07/2015 B12 Trm039 B12 46.00 pg/ml 08/07/2015 Cbc With Differential [...] Tsh Ord6 hTSH II 0.36 uIU/mL 08/05/2015 Free T4 Vlo265 FREE T4 1.33 ng/dL 08/05/2015 Comp Metabolic Fgd088 NA 137 mEq/L 08/05/2015 Comp Metabolic Wcv896 K 4.5 mEq/L 08/05/2015 Comp Metabolic Nka427 CL 104 mEq/L 08/05/2015 Comp Metabolic Ogo726 CO2 26.0 mEq/L 08/05/2015 Comp Metabolic Gxr796 ANION GAP 12 08/05/2015 Comp Metabolic Iyx364 GLUCOSE 146 mg/dL 08/05/2015 Comp Metabolic Ukm544 Creat 1.0 mg/dL 08/05/2015 Comp Metabolic Nya724 eGFR 56 ml/min/1.73m2 08/05/2015 Comp Metabolic Rjm020 BUN 23 mg/dL 08/05/2015 Comp Metabolic Lhd628 B/C Ratio 22.8 Ratio 08/05/2015 Comp Metabolic Xpy164 CALCIUM 9.3 mg/dL 08/05/2015 Comp Metabolic Cyc371 ALK PHOS 71 U/L 08/05/2015 Comp Metabolic Tgb565 AST(SGOT) 33 U/L 08/05/2015 Comp Metabolic Mze595 ALT(SGPT) 15 U/L 08/05/2015 Comp Metabolic Kao833 BILI T 0.6 mg/dL 08/05/2015 Comp Metabolic Dme457 ALBUMIN 3.9 g/dL 08/05/2015 Comp Metabolic Okt137 TPRO 6.5 g/dL 08/05/2015 Comp Metabolic Hfz297 GLOB 2.6 g/dL 08/05/2015 Comp Metabolic Jge553 A/G Ratio 1.5 Ratio 08/05/2015 Comp Metabolic Fsj465 Osmo 280 mOsmo 08/05/2015 %Hba1C Hie530 % HbA1c 75606- 6 8.1 % 08/05/2015 %Hba1C Zrd406 Gluc Ave 186 mg/dL 08/05/2015 Free T4 Yrh544 FREE T4 0.91 ng/dL 04/11/2015 %Hba1C Tjw623 % HbA1c 14952- 6 8.3 % 04/10/2015 %Hba1C Yyt716 Gluc Ave 192 mg/dL 04/10/2015 Tsh Ord6 hTSH II 6.71 uIU/mL 04/10/2015 Comp Metabolic Lvl493 NA 134 mEq/L 04/10/2015 Comp Metabolic Gur200 K 4.1 mEq/L 04/10/2015 Comp Metabolic Pyh254 CL 105 mEq/L 04/10/2015 Comp Metabolic Fjw662 CO2 26.0 mEq/L 04/10/2015 Comp Metabolic Cqd038 ANION GAP 7 04/10/2015 Comp Metabolic Ahy259 GLUCOSE 126 mg/dL 04/10/2015 Comp Metabolic Oth338 Creat 1.0 mg/dL 04/10/2015 Comp Metabolic Qju584 eGFR 58 ml/min/1.73m2 04/10/2015 Comp Metabolic Eey521 BUN 29 mg/dL 04/10/2015 Comp Metabolic Muq092 B/C Ratio 29.6 Ratio 04/10/2015 Comp Metabolic Bzv583 CALCIUM 9.3 mg/dL 04/10/2015 Comp Metabolic Oli431 ALK PHOS 63 U/L 04/10/2015 Comp Metabolic Dyi107 AST(SGOT) 31 U/L 04/10/2015 Comp Metabolic Rrb112 ALT(SGPT) 14 U/L 04/10/2015 Comp Metabolic Ffp219 BILI T 0.6 mg/dL 04/10/2015 Comp Metabolic Qgh336 ALBUMIN 3.9 g/dL 04/10/2015 Comp Metabolic Lxn775 TPRO 6.3 g/dL 04/10/2015 Comp Metabolic Yar073 GLOB 2.4 g/dL 04/10/2015 Comp Metabolic Lab022 A/G Ratio 1.6 Ratio 04/10/2015 Comp Metabolic Nwe192 Osmo 276 mOsmo 04/10/2015 Cbc With Differential [...] Result Effective Dates Constitutional No recent illness 06/05/2018 Constitutional No [...] Date GLUC MONITOR CONT PHYS I&R CPT-4: 10358 06/05/2018 GLUCOSE MONITORING CONT CPT-4: 28154 05/22/2018 THER/PROPH/DIAG INJ SC/IM CPT-4: 67480 01/12/2018 VITAMIN B12 INJECTION CPT- 4: J3420 01/12/2018 THER/PROPH/DIAG INJ SC/IM CPT-4: 47529 09/15/2017 VITAMIN B12 INJECTION CPT- 4: J3420 09/15/2017 THER/PROPH/DIAG INJ SC/IM CPT-4: 42763 08/17/2017 VITAMIN B12 INJECTION CPT- 4: J3420 08/17/2017 THER/PROPH/DIAG INJ SC/IM CPT-4: 48810 07/19/2017 VITAMIN B12 INJECTION CPT- 4: J3420 07/19/2017 THER/PROPH/DIAG INJ SC/IM CPT-4: 98804 05/19/2017 VITAMIN B12 INJECTION CPT- 4: J3420 05/19/2017 THER/PROPH/DIAG INJ SC/IM CPT-4: 73641 04/06/2017 VITAMIN B12 INJECTION CPT- 4: J3420 04/06/2017 THER/PROPH/DIAG INJ SC/IM CPT-4: 09996 01/04/2017 VITAMIN B12 INJECTION CPT- 4: J3420 01/04/2017 THER/PROPH/DIAG INJ SC/IM CPT-4: 72182 12/10/2016 VITAMIN B12 INJECTION CPT- 4: J3420 12/10/2016 THER/PROPH/DIAG INJ SC/IM CPT-4: 61026 10/13/2016 TRIAMCINOLONE ACET INJ NOS CPT-4: J3301 10/13/2016 THER/PROPH/DIAG INJ SC/IM CPT-4: 73795 09/03/2016 VITAMIN B12 INJECTION CPT- 4: J3420 09/03/2016 THER/PROPH/DIAG INJ SC/IM CPT-4: 97467 07/29/2016 VITAMIN B12 INJECTION CPT- 4: J3420 07/29/2016 THER/PROPH/DIAG INJ SC/IM CPT-4: 16964 06/03/2016 VITAMIN B12 INJECTION CPT- 4: J3420 06/03/2016 PNEUMOCOCCAL VACC [address]: 55373815 CPT-4: 49598 04/22/2016 ADMIN PNEUMOCOCCAL VACCINE SNOMED CT: 67253959 CPT-4: G0009 04/22/2016 VITAMIN B12 INJECTION CPT- 4: J3420 09/15/2015 THER/PROPH/DIAG INJ SC/IM CPT-4: 92976 09/15/2015 THER/PROPH/DIAG INJ SC/IM CPT-4: 50160 09/08/2015 VITAMIN B12 INJECTION CPT- 4: J3420 09/08/2015 THER/PROPH/DIAG INJ SC/IM CPT-4: 60635 09/01/2015 VITAMIN B12 INJECTION CPT- 4: J3420 09/01/2015 THER/PROPH/DIAG INJ SC/IM CPT-4: 83316 08/25/2015 VITAMIN B12 INJECTION CPT- 4: J3420 08/25/2015 Vital Signs Date Vital 06/05/2018 Blood Pressure 1: 132/70 Code: 8480-6 BMI: 41.6 Code: 23603-7 Heart Rate 1: 70 bpm Height: 4'11" SpO2: 96% Weight: 206 lbs 05/22/2018 Blood Pressure 1: 148/72 Code: 8480-6 BMI: 41.6 Code: 74890-1 Heart Rate 1: 82 bpm Height: 4'11" SpO2: 95% Weight: 206 lbs 05/15/2018 Blood Pressure 1: 140/80 Code: 8480-6 BMI: 41.6 Code: 31752-7 Heart Rate 1: 86 bpm Height: 4'11" SpO2: 92% Weight: 206 lbs 01/12/2018 Blood Pressure 1: 140/78 Code: 8480-6 BMI: 42.2 Code: 94066-7 Heart Rate 1: 73 bpm Height: 4'11" SpO2: 97% Weight: 209 lbs 11/25/2017 Blood Pressure 1: 140/68 Code: 8480-6 BMI: 42.2 Code: 09899-6 Heart Rate 1: 76 bpm Height: 4'11" SpO2: 94% Weight: 209 lbs 09/15/2017 Blood Pressure 1: 146/67 Code: 8480-6 BMI: 42.2 Code: 45964-1 Heart Rate 1: 69 bpm Height: 4'11" SpO2: 97% Weight: 209 lbs 08/17/2017 Blood Pressure 1: 144/70 Code: 8480-6 BMI: 41.8 Code: 04536-4 Heart Rate 1: 63 bpm Height: 4'11" SpO2: 97% Weight: 207 lbs 07/19/2017 Blood Pressure 1: 142/74 Code: 8480-6 BMI: 41.4 Code: 63663-1 Heart Rate 1: 71 bpm Height: 4'11" SpO2: 96% Weight: 205 lbs 05/19/2017 Blood Pressure 1: 148/76 Code: 8480-6 BMI: 42.8 Code: 19436-2 Heart Rate 1: 72 bpm Height: 4'11" SpO2: 94% Weight: 212 lbs 02/15/2017 Blood Pressure 1: 154/70 Code: 8480-6 BMI: 42.5 Code: 54401-2 Heart Rate 1: 68 bpm Height: 4'11" SpO2: 97% Weight: 210 lbs 8 oz 11/16/2016 Blood Pressure 1: 142/78 Code: 8480-6 BMI: 41.6 Code: 68258-0 Heart Rate 1: 68 bpm Height: 4'11" SpO2: 95% Temperature: 36.0 (C) / 96.8 (F) Weight: 206 lbs 08/19/2016 Blood Pressure 1: 120/74 Code: 8480-6 BMI: 41.6 Code: 18274-1 Heart Rate 1: 75 bpm Height: 4'11" SpO2: 95% Weight: 206 lbs 07/15/2016 Blood Pressure 1: 140/76 Code: 8480-6 BMI: 42.0 Code: 45852-4 Heart Rate 1: 76 bpm Height: 4'11" SpO2: 96% Weight: 208 lbs 06/03/2016 Blood Pressure 1: 130/78 Code: 8480-6 BMI: 42.8 Code: 05106-5 Heart Rate 1: 72 bpm Height: 4'11" SpO2: 98% Weight: 212 lbs 04/22/2016 Blood Pressure 1: 142/84 Code: 8480-6 BMI: 41.8 Code: 64509-1 Heart Rate 1: 86 bpm Height: 4'11" SpO2: 92% Weight: 207 lbs 01/22/2016 Blood Pressure 1: 162/64 Code: 8480-6 BMI: 41.2 Code: 99647-3 Heart Rate 1: 70 bpm Height: 4'11" SpO2: 97% Weight: 204 lbs 10/23/2015 Blood Pressure 1: 130/70 Code: 8480-6 BMI: 40.4 Code: 00507-3 Heart Rate 1: 72 bpm Height: 4'11" SpO2: 95% Weight: 200 lbs 09/12/2015 Blood Pressure 1: 142/62 Code: 8480-6 BMI: 39.4 Code: 19684-1 Heart Rate 1: 63 bpm Height: 4'11" SpO2: 96% Weight: 195 lbs 08/05/2015 Blood Pressure 1: 144/60 Code: 8480-6 BMI: 41.0 Code: 64881-0 Heart Rate 1: 92 bpm Height: 4'11" SpO2: 90% SpO2: 97% Weight: 203 lbs 04/03/2015 Blood Pressure 1: 142/68 Code: 8480-6 BMI: 40.6 Code: 34094-7 Heart Rate 1: 77 bpm Height: 4'11" SpO2: 95% Weight: 201 lbs 01/30/2015 Blood Pressure 1: 150/72 Code: 8480-6 BMI: 40.2 Code: 09571-1 Heart Rate 1: 64 bpm Height: 4'11" Weight: 199 lbs 01/02/2015 Blood Pressure 1: 136/72 Code: 8480-6 BMI: 39.8 Code: 84047-2 Heart Rate 1: 68 bpm Height: 4'11" [...] data Encounters Encounter Performer Location Codes Date [id number] EST. PATIENT, LEVEL III Diagnosis: Type 2 diabetes mellitus with hyperglycemia[ICD10: E11.65] Giselle Knox MD, [facility] CPT-4: 75667 06/05/2018 ([id number]) Miscellaneous no charge Diagnosis: Type 2 diabetes mellitus with hyperglycemia[ICD10: E11.65] Jennifer Knox MD, [facility] CPT-4: 24537 05/29/2018 ([id number]) 49011 EST. PATIENT, LEVEL IV Diagnosis: Type 2 diabetes mellitus with hyperglycemia[ICD10: E11.65] Diagnosis: Essential (primary) hypertension[ICD10: I10] Diagnosis: Hypothyroidism, unspecified[ICD10: E03.9] Giselle Knox MD, [facility] CPT-4: 85601 05/15/2018 ([id number] EST. PATIENT, LEVEL IV Diagnosis: Essential (primary) hypertension[ICD10: I10] Diagnosis: Type 2 diabetes mellitus with hyperglycemia[ICD10: E11.65] Diagnosis: Hypothyroidism, unspecified[ICD10: E03.9] Diagnosis: Spinal stenosis, lumbar region without neurogenic claudication[ICD10: M48.061] Diagnosis: Vitamin B12 deficiency anemia due to intrinsic factor deficiency[ICD10: D51.0] Giselle Knox MD, [facility] CPT-4: 74715 01/12/2018 ([id number] [id number] EST. PATIENT, LEVEL IV Diagnosis: Varicose veins of bilateral lower extremities with pain[ICD10: I83.813] Diagnosis: Low back pain[ICD10: M54.5] Diagnosis: Hypothyroidism, unspecified[ICD10: E03.9] Diagnosis: Type 2 diabetes mellitus with hyperglycemia[ICD10: E11.65] Giselle Knox MD, [facility] CPT-4: 36669 11/25/2017 [id number] EST. PATIENT, LEVEL IV Diagnosis: Localized edema[ICD10: R60.0] Diagnosis: Vitamin B12 deficiency anemia due to intrinsic factor deficiency[ICD10: D51.0] Chasity Knox MD, [facility] CPT-4: 58540 09/15/2017 [id number] EST. PATIENT, LEVEL IV Diagnosis: Essential (primary) hypertension[ICD10: I10] Diagnosis: Type 2 diabetes mellitus with hyperglycemia[ICD10: E11.65] Diagnosis: Vitamin B12 deficiency anemia due to intrinsic factor deficiency[ICD10: D51.0] Chasity Knox MD, [facility] CPT-4: 13317 08/17/2017 [id number] EST. PATIENT, LEVEL IV Diagnosis: Type 2 diabetes mellitus with hyperglycemia[ICD10: E11.65] Diagnosis: Essential (primary) hypertension[ICD10: I10] Diagnosis: Vitamin B12 deficiency anemia due to intrinsic factor deficiency[ICD10: D51.0] Chasity Knox MD, [facility] CPT-4: 38399 07/19/2017 ([id number]) 72141 EST. PATIENT, LEVEL IV Diagnosis: Essential (primary) hypertension[ICD10: I10] Diagnosis: Type 2 diabetes mellitus with hyperglycemia[ICD10: E11.65] Diagnosis: Hypothyroidism, unspecified[ICD10: E03.9] Diagnosis: Vitamin B12 deficiency anemia due to intrinsic factor deficiency[ICD10: D51.0] Diagnosis: Chronic kidney disease, stage 3 (moderate)[ICD10: N18.3] Giselle Knox MD, [facility] CPT-4: 25990 05/19/2017 ([id number]) 87781 EST. PATIENT, LEVEL IV Diagnosis: Essential (primary) hypertension[ICD10: I10] Diagnosis: Type 2 diabetes mellitus with hyperglycemia[ICD10: E11.65] Diagnosis: Hypothyroidism, unspecified[ICD10: E03.9] Giselle Knox MD, [facility] CPT-4: 58275 02/15/2017 [id number]) 53634 EST. PATIENT, LEVEL IV Diagnosis: Type 2 diabetes mellitus with hyperglycemia[ICD10: E11.65] Diagnosis: Cough[ICD10: R05] Diagnosis: Acute upper respiratory infection, unspecified[ICD10: J06.9] Diagnosis: Hypothyroidism, unspecified[ICD10: E03.9] Diagnosis: Chronic kidney disease, stage 3 (moderate)[ICD10: N18.3] Giselle Knox MD, [facility] CPT-4: 69175 11/16/2016 ([id number]) 33467 EST. PATIENT, LEVEL IV Diagnosis: Type 2 diabetes mellitus with hyperglycemia[ICD10: E11.65] Diagnosis: Hypothyroidism, unspecified[ICD10: E03.9] Diagnosis: Essential (primary) hypertension[ICD10: I10] Giselle Knox MD, [facility] CPT-4: 23176 08/19/2016 ([id number]) 09772 EST. PATIENT, LEVEL III Diagnosis: Type 2 diabetes mellitus with hyperglycemia[ICD10: E11.65] Giselle Knox MD, [facility] CPT-4: 19469 07/15/2016 ([id number]) 20228 EST. PATIENT, LEVEL IV Diagnosis: Type 2 diabetes mellitus with hyperglycemia[ICD10: E11.65] Diagnosis: Atrophy of thyroid (acquired)[ICD10: E03.4] Diagnosis: Vitamin B12 deficiency anemia due to intrinsic factor deficiency[ICD10: D51.0] Diagnosis: Chronic kidney disease, stage 3 (moderate)[ICD10: N18.3] Diagnosis: Essential (primary) hypertension[ICD10: I10] Jennifer Knox MD, [facility] CPT-4: 14936 06/03/2016 ([id number]) 52605 EST. PATIENT, LEVEL III Diagnosis: Type 2 diabetes mellitus with hyperglycemia[ICD10: E11.65] Diagnosis: Essential (primary) hypertension[ICD10: I10] Diagnosis: Chronic kidney disease, stage 3 (moderate)[ICD10: N18.3] Diagnosis: VACCIN STREP PNEUMONIAE[ICD10: Z23] Giselle Knox MD, [facility] CPT-4: 57014 04/22/2016 [id number] EST. PATIENT, LEVEL IV Diagnosis: Type 2 diabetes mellitus with hyperglycemia[ICD10: E11.65] Diagnosis: Essential (primary) hypertension[ICD10: I10] Chasity Knox MD, [facility] CPT-4: 65083 01/22/2016 ([id number]) 41116 EST. PATIENT, LEVEL III Diagnosis: Type 2 diabetes mellitus with hyperglycemia[ICD10: E11.65] Diagnosis: Essential (primary) hypertension[ICD10: I10] Giselle Knox MD, [facility] CPT-4: 02928 10/23/2015 76802 EST. PATIENT, LEVEL IV Diagnosis: Type 2 diabetes mellitus with hyperglycemia[ICD10: E11.65] Diagnosis: Vitamin B12 deficiency anemia due to intrinsic factor deficiency[ICD10: D51.0] Diagnosis: Essential (primary) hypertension[ICD10: I10] Chasity Knox MD, [facility] CPT-4: 14558 09/12/2015 ([id number]) 91770 EST. PATIENT, LEVEL IV Diagnosis: Essential (primary) hypertension[ICD10: I10] Diagnosis: Type 2 diabetes mellitus with hyperglycemia[ICD10: E11.65] Diagnosis: Hypothyroidism, unspecified[ICD10: E03.9] Giselle Knox MD, [facility] CPT-4: 26696 08/05/2015 ([id number]) 71808 EST. PATIENT, LEVEL III Diagnosis: ESSENTIAL HYPERTENSION[ICD9: 401.9] Diagnosis: DIABETES TYPE II[ICD9: 250.00] Jennifer Knox MD, [facility] CPT-4: 18018 04/03/2015 ([id number]) 39291 EST. PATIENT, LEVEL IV Diagnosis: ESSENTIAL HYPERTENSION[ICD9: 401.9] Diagnosis: DIABETES TYPE II[ICD9: 250.00] Diagnosis: Hypothyroidism[ICD9: 244.9] Giselle Knox MD, [facility] CPT-4: 09840 01/30/2015 ([id number]) OFFICE VISIT, NEW - LEVEL 4 Diagnosis: ESSENTIAL HYPERTENSION[ICD9: 401.9] Diagnosis: DIABETES TYPE II[ICD9: 250.00] Diagnosis: Impacted cerumen[ICD9: 380.4] Jennifer Knox MD, [facility] CPT-4: 71271 01/02/2015 Plan of Care Planned Activity Notes [...] of plan. 06/05/2018 Appointment: Giselle Mccoy WPtel: [address] [place], [place] [phone] (15 min) Moderate 06/05/2018 Patient Education: Patient [...] IPRO. 05/22/2018 Appointment: Giselle Mccoy WPtel: [phone] [phone] (30 min) Complex 05/22/2018 Patient Education: [...] control. 05/15/2018 [facility]ment[phone] (15 min) Moderate 05/15/2018 Patient Education: [...] evaluation-recommend PT 01/12/2018 Appointment: Giselle Mccoy WPtel: [phone] [place] (30 min) Complex 01/12/2018 Patient Education: Patient Medication Summary Completed 01/12/2018 Care Plan: Referral Order SNOMED-CT : [id number] Pending 01/12/2018 Visit Plan: Varicose veins-rx for compression stockings provided and instructed on use Low back pain-recommend xray lumbar spine Hypothyroidism- check labs DM-check Hgb A1c 11/25/2017 Appointment: Giselle Mccoy WPtel: [phone] [place] (30 min) Complex 11/25/2017 Patient Education: Patient Medication Summary Completed 11/25/2017 Care Plan: X-RAY EXAM L-S SPINE 2/3 VWS LOINC : 38813-9 Pending 11/25/2017 Visit Plan: Edema - Left [...] or concerns. 09/15/2017 Appointment: Chasity Caldwell WPtel: [phone] [place] (30 min) Complex 09/15/2017 Patient [...] control. 08/17/2017 Appointment: Chasity Caldwell WPtel: [phone] [facility] [place] (15 min) Moderate 08/17/2017 Patient Education: [...] at home. 07/19/2017 Appointment: [phone] [place] (15 min) Moderate 07/19/2017 Patient Education: Patient Medication Summary Completed 07/19/2017 [facility]ment[phone] [place] (15 min) Moderate 06/13/2017 Visit Plan: [...] medications. 05/19/2017 Appointment: [phone] [phone] (30 min) [facility] 05/19/2017 Patient Education: Patient Medication Summary Completed [...] control. 02/15/2017 Appointment: [facility]ccoy [facility] [phone] [phone] (15 min) Moderate 02/15/2017 Patient Education: [...] today 11/16/2016 Appointment: [phone] [place] (15 min) Moderate 11/16/2016 Patient [...] of control. 08/19/2016 Appointment: Giselle Mccoy WPtel: [phone] (15 min) Moderate 08/19/2016 Patient Education: Patient Medication Summary Completed 08/19/2016 Patient Education: Obesity Completed 08/19/2016 Care Plan: Tsh Cancelled 08/19/2016 Care Plan: %Hba1C LOINC : 49741-6 Cancelled 08/19/2016 Care Plan: Lipid Cancelled 08/19/2016 Care Plan: Free T4 patient coming back next week Cancelled 08/19/2016 Appointment: Injection 07/29/2016 Patient Education: Patient Medication Summary Completed 07/29/2016 Appointment: Giselle Mccoy WPtel: [phone] (30 min) Complex 07/22/2016 Visit Plan: Diabetes-having hypoglycemia in the mornings-insulin adjusted-patient and verbalized understanding of plan. Follow up in 1 month-call sooner if still having low blood sugars. Sinus congestion-start claritin 07/15/2016 Appointment: Giselle Mccoy WPtel: [phone] (30 min) Complex 07/15/2016 Patient Education: [...] of control. 06/03/2016 Appointment: Jennifer Knox WPtel: [address] [place], [place] [phone] (15 min) Moderate 06/03/2016 Patient Education: Patient [...] MONTH 04/22/2016 Appointment: Giselle Mccoy WPtel[phone] (15 min) Moderate 04/22/2016 Patient Education: [...] if needed. 01/02/2015 Appointment: Jennifer Knox WPtel: [facility] [place] ([place] New Patient 01/02/2015 Patient Education: Patient Medication Summary Completed 01/02/2015 Patient Education: Hypertension Completed 01/02/2015 Referral: Tom Pike Referral Appointment Requested Instructions Comment RETURN TUESDAY FOR REMOVAL IF DEVICE . [...]
[2019-01-23 09:19] VITALS: BP 163/57
--- OUTSIDE RECORDS SUMMARY | 2019-01-23 09:19 | XMS REPORT | CCD ---
Author Author Jennifer [facility] Organization [facility] Address [address] [place] [address] Phone Care Team Providers Care Pen Tender Name Role Phone PP Unavailable CCM Unavailable Summary Purpose Interface Exchange Insurance Providers Payer name Policy type / Coverage type Covered constitution party ID Effective Begin Date Effective End Date [facility] Commercial Insurance [id number] Unknown Family history Runs in the family [...] U-100 Insulin 100 unit/mL subcutaneous suspension RxNorm: 630312 INJECT 18 UNITS UNDER THE SKIN EVERY MORNING 06/20/2018 09/11/2018 Active terazosin 2 mg capsule RxNorm: 884469 TAKE ONE CAPSULE BY MOUTH DAILY 06/09/2018 03/05/2019 Active Humulin 70/30 U-100 Insulin 100 unit/mL subcutaneous suspension RxNorm: 117726 18 Unit(s) SQ QAM 05/15/2018 06/19/2018 Inactive levothyroxine 100 mcg tablet RxNorm: 695058 1 Tablet(s) PO daily 05/11/2018 09/07/2018 Active carvedilol 12.5 mg tablet RxNorm: 697095 TAKE ONE TABLET BY MOUTH TWICE A DAY 05/05/2018 07/28/2019 Active losartan 100 mg tablet RxNorm: 623716 TAKE ONE TABLET BY MOUTH DAILY 03/24/2018 06/10/2020 Active terazosin 2 mg capsule RxNorm: 293553 TAKE ONE CAPSULE BY MOUTH DAILY 03/07/2018 06/08/2018 Inactive Lantus Solostar U-100 Insulin 100 unit/mL (3 mL) subcutaneous pen RxNorm: 772690 Unit(s) INJECT 24 UNITS UNDER THE SKIN EVERY NIGHT AT BEDTIME 01/12/2018 No Stop Date Active cyanocobalamin (vit B-12) 1,000 mcg/mL injection solution RxNorm: 695479 1 Milliliter(s) Inj 01/12/2018 01/12/2018 Inactive Humulin 70/30 U-100 Insulin 100 unit/mL subcutaneous suspension RxNorm: 739739 INJECT 18 UNITS UNDER THE SKIN EVERY MORNING 11/14/2017 03/05/2018 Inactive carvedilol 12.5 mg tablet RxNorm: 622886 TAKE ONE TABLET BY MOUTH TWICE A DAY 11/07/2017 05/04/2018 Inactive cyanocobalamin (vit B-12) 1,000 mcg/mL injection solution RxNorm: 538418 Milliliter(s) Inj 09/15/2017 09/15/2017 Inactive terazosin 2 mg capsule RxNorm: 962708 Capsule(s) TAKE ONE CAPSULE BY MOUTH DAILY 09/07/2017 03/05/2018 Inactive Lantus Solostar 100 unit/mL (3 mL) subcutaneous insulin pen RxNorm: 946180 INJECT 35 UNITS UNDER THE SKIN EVERY NIGHT AT BEDTIME 08/29/2017 01/11/2018 Inactive One Touch Test strips RxNorm: 1 test Miscellaneous BID 08/22/2017 08/16/2018 Active Contour Test Strips RxNorm: TEST BLOOD SUGAR TWO TIMES A DAY E11.65 08/22/2017 02/22/2019 Active Tamiflu 75 mg capsule RxNorm: 050147 1 Capsule(s) PO daily 08/17/2017 08/16/2017 Inactive Tamiflu 75 mg capsule RxNorm: 618993 1 Capsule(s) PO daily 08/17/2017 08/26/2017 Inactive cyanocobalamin (vit B-12) 1,000 mcg/mL injection solution RxNorm: 143629 1 Milliliter(s) Inj 08/17/2017 08/17/2017 Inactive carvedilol 12.5 mg tablet RxNorm: 376893 TAKE ONE TABLET BY MOUTH TWICE A DAY 08/10/2017 11/06/2017 Inactive cyanocobalamin (vit B-12) 1,000 mcg/mL injection solution RxNorm: 453310 1 Milliliter(s) Inj 07/19/2017 07/19/2017 Inactive Humulin 70/30 100 unit/mL subcutaneous suspension RxNorm: 974605 14 Unit(s) SQ QAM 07/06/2017 05/14/2018 Inactive Lantus Solostar 100 unit/mL (3 mL) subcutaneous insulin pen RxNorm: 725767 26 Unit(s) SQ QHS 07/06/2017 08/28/2017 Inactive losartan 100 mg tablet RxNorm: 349015 TAKE ONE TABLET BY MOUTH DAILY 06/07/2017 03/23/2018 Inactive Lantus Solostar 100 unit/mL (3 mL) subcutaneous insulin pen RxNorm: 540396 28 Unit(s) SQ QHS 05/19/2017 07/05/2017 Inactive cyanocobalamin (vit B-12) 1,000 mcg/mL injection solution RxNorm: 289590 1 Milliliter(s) Inj 05/19/2017 05/19/2017 Inactive terazosin 2 mg capsule RxNorm: 260909 TAKE ONE CAPSULE BY MOUTH DAILY 05/16/2017 09/06/2017 Inactive cyanocobalamin (vit B-12) 1,000 mcg/mL injection solution RxNorm: 018958 1 Milliliter(s) Inj 04/06/2017 04/06/2017 Inactive cyanocobalamin (vit B-12) 1,000 mcg/mL injection solution RxNorm: 205842 Milliliter(s) Inj 01/04/2017 01/04/2017 Inactive Humulin 70/30 U-100 Insulin 100 unit/mL subcutaneous suspension RxNorm: 968387 18 Unit(s) SQ QAM 12/22/2016 06/04/2017 Inactive cyanocobalamin (vit B-12) 1,000 mcg/mL injection solution RxNorm: 006861 1 Milliliter(s) Inj 12/10/2016 12/10/2016 Inactive Zithromax Z-Jose 250 mg tablet RxNorm: 057284 1 Tablet(s) PO UD 11/16/2016 11/20/2016 Inactive terazosin 2 mg capsule RxNorm: 755314 TAKE ONE CAPSULE BY MOUTH DAILY 11/08/2016 05/06/2017 Inactive Lantus Solostar 100 unit/mL (3 mL) subcutaneous insulin pen RxNorm: 771068 INJECT 35 UNITS UNDER THE SKIN EVERY NIGHT AT BEDTIME 10/22/2016 07/18/2017 Inactive cyanocobalamin (vit B-12) 1,000 mcg/mL injection solution RxNorm: 307831 Milliliter(s) Inj 10/13/2016 10/13/2016 Inactive cyanocobalamin (vit B-12) 1,000 mcg/mL injection solution RxNorm: 668461 1 Milliliter(s) Inj 09/03/2016 09/03/2016 Inactive Contour Test Strips RxNorm: TEST BLOOD SUGAR TWO TIMES A DAY E11.65 08/19/2016 08/21/2017 Inactive carvedilol 12.5 mg tablet RxNorm: 963186 TAKE ONE TABLET BY MOUTH TWICE A DAY 08/05/2016 01/01/2017 Inactive carvedilol 12.5 mg tablet RxNorm: 496635 TAKE ONE TABLET BY MOUTH TWICE A DAY 08/05/2016 01/01/2017 Inactive carvedilol 12.5 mg tablet RxNorm: 639691 1 Tablet(s) PO BID 08/04/2016 01/30/2017 Inactive cyanocobalamin (vit B-12) 1,000 mcg/mL injection solution RxNorm: 087418 Milliliter(s) Inj 07/29/2016 07/29/2016 Inactive Lantus Solostar 100 unit/mL (3 mL) subcutaneous insulin pen RxNorm: 202853 30 Unit(s) SQ QHS 07/15/2016 05/18/2017 Inactive Humulin 70/30 100 unit/mL subcutaneous suspension RxNorm: 108179 18 Unit(s) SQ QAM 07/15/2016 12/21/2016 Inactive losartan 100 mg tablet RxNorm: 166784 TAKE ONE TABLET BY MOUTH DAILY 07/08/2016 06/02/2017 Inactive terazosin 2 mg capsule RxNorm: 523420 TAKE ONE CAPSULE BY MOUTH DAILY 06/10/2016 11/06/2016 Inactive cyanocobalamin (vit B-12) 1,000 mcg/mL injection solution RxNorm: 786690 1 Milliliter(s) Inj 06/03/2016 06/03/2016 Inactive Humulin 70/30 100 unit/mL subcutaneous suspension RxNorm: 370091 Unit(s) INJECT 10 UNITS UNDER THE SKIN 06/01/2016 07/14/2016 Inactive Request already responded to by other means (e.g. phone or fax) Humulin 70/30 100 unit/mL subcutaneous suspension RxNorm: 038326 INJECT 10 UNITS UNDER THE SKIN BEFORE MEALS 06/01/2016 05/31/2016 Inactive Request already responded to by other means (e.g. phone or fax) Lantus Solostar 100 unit/mL (3 mL) subcutaneous insulin pen RxNorm: 791766 35 Unit(s) SQ QHS 05/26/2016 07/14/2016 Inactive Humulin 70/30 100 unit/mL subcutaneous suspension RxNorm: 585204 10 Unit(s) SQ QAM 05/24/2016 10/02/2016 Inactive Humulin 70/30 100 unit/mL subcutaneous suspension RxNorm: 440575 21 Unit(s) SQ QAM 05/24/2016 05/23/2016 Inactive Lantus Solostar 100 unit/mL (3 mL) subcutaneous insulin pen RxNorm: 613433 32 Unit(s) SQ QHS 04/22/2016 05/25/2016 Inactive Humulin 70/30 100 unit/mL subcutaneous suspension RxNorm: 924798 21 Unit(s) SQ QAM 04/22/2016 05/24/2016 Inactive with breakfast hydrochlorothiazide 25 mg tablet RxNorm: 452859 TAKE ONE TABLET BY MOUTH DAILY 02/04/2016 02/16/2016 Inactive terazosin 2 mg capsule RxNorm: 146626 Capsule(s) TAKE ONE CAPSULE BY MOUTH DAILY. 12/01/2015 05/28/2016 Inactive Humulin 70/30 100 unit/mL subcutaneous suspension RxNorm: 355071 INJECT 10 UNITS UNDER THE SKIN BEFORE MEALS 11/06/2015 03/16/2016 Inactive hydrochlorothiazide 25 mg tablet RxNorm: 816022 1 Tablet(s) PO daily 10/06/2015 02/02/2016 Inactive cyanocobalamin (vit B-12) 1,000 mcg/mL injection solution RxNorm: 184527 Milliliter(s) Inj 09/15/2015 09/15/2015 Inactive Humulin 70/30 100 unit/mL subcutaneous suspension RxNorm: 430815 INJECT 10 UNITS UNDER THE SKIN BEFORE MEALS 09/08/2015 10/10/2015 Inactive cyanocobalamin (vit B-12) 1,000 mcg/mL injection solution RxNorm: 832755 Milliliter(s) Inj 09/08/2015 09/08/2015 Inactive terazosin 2 mg capsule RxNorm: 876291 TAKE ONE CAPSULE BY MOUTH DAILY. DISCONTINUE 5 MG CAPSULES 09/01/2015 11/29/2015 Inactive cyanocobalamin (vit B-12) 1,000 mcg/mL injection solution RxNorm: 022860 Milliliter(s) Inj 09/01/2015 09/01/2015 Inactive cyanocobalamin (vit B-12) 1,000 mcg/mL injection solution RxNorm: 491213 Milliliter(s) Inj 08/25/2015 08/25/2015 Inactive levothyroxine 112 mcg tablet RxNorm: 306592 1 Tablet(s) PO daily 08/06/2015 02/14/2017 Inactive Lantus Solostar 100 unit/mL (3 mL) subcutaneous insulin pen RxNorm: 129006 35 Unit(s) SQ QHS 08/06/2015 04/21/2016 Inactive Humulin 70/30 100 unit/mL subcutaneous suspension RxNorm: 979213 20 Unit(s) SQ AC 08/05/2015 04/21/2016 Inactive with breakfast carvedilol 12.5 mg tablet RxNorm: 724252 1 Tablet(s) PO BID 08/05/2015 01/31/2016 Inactive Humulin 70/30 100 unit/mL subcutaneous suspension RxNorm: 012838 10 Unit(s) SQ AC 07/22/2015 08/04/2015 Inactive losartan 100 mg tablet RxNorm: 268664 TAKE ONE TABLET BY MOUTH DAILY 06/25/2015 06/18/2016 Inactive Lantus Solostar 100 unit/mL (3 mL) subcutaneous insulin pen RxNorm: 934255 30 Unit(s) SQ QHS 06/18/2015 08/05/2015 Inactive terazosin 2 mg capsule RxNorm: 879842 1 Capsule(s) PO daily 04/14/2015 08/11/2015 Inactive DC the 5mg order terazosin 2 mg capsule RxNorm: 613174 1 Capsule(s) PO daily 04/14/2015 04/13/2015 Inactive Synthroid 25 mcg tablet RxNorm: 794514 1 Tablet(s) PO daily 04/11/2015 02/14/2017 Inactive Synthroid 25 mcg tablet RxNorm: 970929 1 Tablet(s) PO daily 04/11/2015 04/10/2015 Inactive Lantus Solostar 100 unit/mL (3 mL) subcutaneous insulin pen RxNorm: 500573 30 Unit(s) SQ QHS 04/04/2015 06/17/2015 Inactive terazosin 5 mg tablet RxNorm: 909638 1 Tablet(s) PO daily 04/03/2015 04/13/2015 Inactive Lantus Solostar 100 unit/mL (3 mL) subcutaneous insulin pen RxNorm: 150100 25 Unit(s) SQ QHS 01/08/2015 04/03/2015 Inactive carvedilol 25 mg tablet RxNorm: 316519 1 Tablet(s) PO BID 01/02/2015 01/31/2015 Inactive terazosin 5 mg tablet RxNorm: 007697 1 Tablet(s) PO daily 01/02/2015 01/01/2015 Inactive levothyroxine 125 mcg tablet RxNorm: 810013 1 Tablet(s) PO daily 01/02/2015 01/31/2015 Inactive terazosin 5 mg tablet RxNorm: 594860 1/2 Tablet(s) PO daily 01/02/2015 01/31/2015 Inactive losartan 100 mg tablet RxNorm: 799488 1 Tablet(s) PO daily 12/24/2014 04/22/2015 Inactive losartan 100 mg tablet RxNorm: 849266 1 Tablet(s) PO daily 12/24/2014 12/23/2014 Inactive Contour Test Strips RxNorm: Miscellaneous test blood sugars BID 12/06/2014 12/05/2014 Inactive dx 250.00 Contour Test Strips RxNorm: Miscellaneous test blood sugars BID or UD 12/06/2014 06/23/2015 Inactive dx 250.00 [SAVINGS FOR NON-COVERED DRUGS -- [id number], PCN: [id number], Group: [id number], ID# [id number], Questions: . THIS IS NOT INSURANCE.] folic acid 1 mg tablet RxNorm: 626798 1 Tablet(s) PO QHS No Start Date Active Microlet Lancet RxNorm: Miscellaneous Test BID or Ud No Start Date Active 250.0 aspirin 81 mg tablet,delayed release RxNorm: 854878 1 Tablet(s) PO daily No Start Date Active Stool Softener 100 mg capsule RxNorm: 8029540 1 Capsule(s) PO every other day No Start Date Active folic acid oral RxNorm: 4511 oral No Start Date 05/19/2017 Inactive cyanocobalamin (vit B-12) 100 mcg tablet RxNorm: 394379 1 Tablet(s) PO daily No Start Date 02/14/2017 Inactive hydrochlorothiazide 25 mg tablet RxNorm: 562292 1 Tablet(s) PO daily No Start Date 10/05/2015 Inactive Stool Softener 100 mg capsule RxNorm: 5950003 1 Capsule(s) PO daily No Start Date 05/18/2017 Inactive Humulin 70/30 100 unit/mL subcutaneous suspension RxNorm: 300160 20 Unit(s) SQ QAM No Start Date 07/21/2015 Inactive levothyroxine 100 mcg tablet RxNorm: 967645 1 Tablet(s) PO daily No Start Date 05/10/2018 Inactive Lantus Solostar 100 unit/mL (3 mL) subcutaneous insulin pen RxNorm: 523165 20 Unit(s) SQ QHS No Start Date 01/07/2015 Inactive ferrous sulfate 325 mg (65 mg iron) tablet RxNorm: 110891 1 Tablet(s) PO daily No Start Date 05/18/2017 Inactive Medication Administered Medication Codes Instructions Start Date Status cyanocobalamin (vit B-12) 1,000 mcg/mL injection solution RxNorm: 183010 1Milliliter 01/12/2018 No longer Active cyanocobalamin (vit B-12) 1,000 mcg/mL injection solution RxNorm: 840355 Milliliter 09/15/2017 No longer Active cyanocobalamin (vit B-12) 1,000 mcg/mL injection solution RxNorm: 879467 1Milliliter 08/17/2017 No longer Active cyanocobalamin (vit B-12) 1,000 mcg/mL injection solution RxNorm: 361405 1Milliliter 07/19/2017 No longer Active cyanocobalamin (vit B-12) 1,000 mcg/mL injection solution RxNorm: 670436 1Milliliter 05/19/2017 No longer Active cyanocobalamin (vit B-12) 1,000 mcg/mL injection solution RxNorm: 232370 1Milliliter 04/06/2017 No longer Active cyanocobalamin (vit B-12) 1,000 mcg/mL injection solution RxNorm: 648226 Milliliter 01/04/2017 No longer Active cyanocobalamin (vit B-12) 1,000 mcg/mL injection solution RxNorm: 033736 1Milliliter 12/10/2016 No longer Active cyanocobalamin (vit B-12) 1,000 mcg/mL injection solution RxNorm: 584017 Milliliter 10/13/2016 No longer Active cyanocobalamin (vit B-12) 1,000 mcg/mL injection solution RxNorm: 261960 1Milliliter 09/03/2016 No longer Active cyanocobalamin (vit B-12) 1,000 mcg/mL injection solution RxNorm: 619480 Milliliter 07/29/2016 No longer Active cyanocobalamin (vit B-12) 1,000 mcg/mL injection solution RxNorm: 140752 1Milliliter 06/03/2016 No longer Active cyanocobalamin (vit B-12) 1,000 mcg/mL injection solution RxNorm: 965754 Milliliter 09/15/2015 No longer Active cyanocobalamin (vit B-12) 1,000 mcg/mL injection solution RxNorm: 110739 Milliliter 09/08/2015 No longer Active cyanocobalamin (vit B-12) 1,000 mcg/mL injection solution RxNorm: 534952 Milliliter 09/01/2015 No longer Active cyanocobalamin (vit B-12) 1,000 mcg/mL injection solution RxNorm: 890383 Milliliter 08/25/2015 No longer Active Immunizations Vaccine [...] Item Item Code Result Date Comp Metabolic Jhv296 NA 142 mEq/L 05/15/2018 Comp Metabolic Xze529 K 4.0 mEq/L 05/15/2018 Comp Metabolic Ovh223 CL 107 mEq/L 05/15/2018 Comp Metabolic Xmt283 CO2 28.0 mEq/L 05/15/2018 Comp Metabolic Ubu285 ANION GAP 11 05/15/2018 Comp Metabolic Laq028 GLUCOSE 211 mg/dL 05/15/2018 Comp Metabolic Cai028 Creat 0.9 mg/dL 05/15/2018 Comp Metabolic Bjl255 eGFR 61 ml/min/1.73m2 05/15/2018 Comp Metabolic Rlm393 BUN 21 mg/dL 05/15/2018 Comp Metabolic Adb947 B/C Ratio 22.6 Ratio 05/15/2018 Comp Metabolic Nfc972 CALCIUM 9.1 mg/dL 05/15/2018 Comp Metabolic Lwq503 ALK PHOS 85 U/L 05/15/2018 Comp Metabolic Jja750 AST(SGOT) 36 U/L 05/15/2018 Comp Metabolic Fid325 ALT(SGPT) 19 U/L 05/15/2018 Comp Metabolic Hou319 BILI T 0.6 mg/dL 05/15/2018 Comp Metabolic Xpd980 ALBUMIN 3.8 g/dL 05/15/2018 Comp Metabolic Dzg456 TPRO 6.2 g/dL 05/15/2018 Comp Metabolic Vrg398 GLOB 2.4 g/dL 05/15/2018 Comp Metabolic Nds649 A/G Ratio 1.6 Ratio 05/15/2018 Comp Metabolic Rpf877 Osmo 292 mOsmo 05/15/2018 %Hba1C Oyh681 % HbA1c 51343- 6 7.8 % 05/15/2018 %Hba1C Ihj812 Gluc Ave 177 mg/dL 05/15/2018 Tsh Ord6 TSH (3rd IS) 0.97 uIU/mL 05/15/2018 Free T4 Qkp204 FREE T4 1.21 ng/dL 05/15/2018 Free T4 Obu095 FREE T4 1.05 ng/dL 11/28/2017 Tsh Ord6 TSH (3rd IS) 1.14 uIU/mL 11/28/2017 Comp Metabolic Ahg638 NA 139 mEq/L 11/28/2017 Comp Metabolic Jus423 K 4.1 mEq/L 11/28/2017 Comp Metabolic Rpx885 CL 105 mEq/L 11/28/2017 Comp Metabolic Avo369 CO2 26.0 mEq/L 11/28/2017 Comp Metabolic Stj928 ANION GAP 12 11/28/2017 Comp Metabolic Vrn144 GLUCOSE 132 mg/dL 11/28/2017 Comp Metabolic Wey146 Creat 0.9 mg/dL 11/28/2017 Comp Metabolic Vos341 eGFR 66 ml/min/1.73m2 11/28/2017 Comp Metabolic Rsv865 BUN 17 mg/dL 11/28/2017 Comp Metabolic Yyq943 B/C Ratio 19.5 Ratio 11/28/2017 Comp Metabolic Pxl266 CALCIUM 9.1 mg/dL 11/28/2017 Comp Metabolic Eok628 ALK PHOS 78 U/L 11/28/2017 Comp Metabolic Vbe495 AST(SGOT) 35 U/L 11/28/2017 Comp Metabolic Jla287 ALT(SGPT) 17 U/L 11/28/2017 Comp Metabolic Fzo624 BILI T 0.6 mg/dL 11/28/2017 Comp Metabolic Wxp603 ALBUMIN 3.9 g/dL 11/28/2017 Comp Metabolic Evl480 TPRO 6.4 g/dL 11/28/2017 Comp Metabolic Qrg487 GLOB 2.5 g/dL 11/28/2017 Comp Metabolic Qdw173 A/G Ratio 1.6 Ratio 11/28/2017 Comp Metabolic Udj510 Osmo 281 mOsmo 11/28/2017 Cbc With Differential Ord2 WBC 6.44 [...] 29.8 pg 11/25/2017 Cbc With Differential Ord2 [place]% 10.2 % 11/25/2017 Cbc With Differential Ord2 [...] 2.56 K/ul 11/25/2017 Cbc With Differential Ord2 [place] ABS# 0.7 K/ul 11/25/2017 Cbc With Differential Ord2 Eos ABS# 0.2 K/ul 11/25/2017 Cbc With Differential Ord2 Baso ABS# 0.0 K/ul 11/25/2017 %Hba1C Ges157 % HbA1c 91985- 6 7.7 % 11/25/2017 %Hba1C Lrn783 Gluc Ave 174 mg/dL 11/25/2017 Comp Metabolic Rok252 NA 140 mEq/L 05/19/2017 Comp Metabolic Tbt726 K 3.8 mEq/L 05/19/2017 Comp Metabolic Bkk327 CL 108 mEq/L 05/19/2017 Comp Metabolic Gqt940 CO2 21.0 mEq/L 05/19/2017 Comp Metabolic Lse490 ANION GAP 15 05/19/2017 Comp Metabolic Fwa138 GLUCOSE 207 mg/dL 05/19/2017 Comp Metabolic Dvo311 Creat 1.0 mg/dL 05/19/2017 Comp Metabolic Iwp510 eGFR 55 ml/min/1.73m2 05/19/2017 Comp Metabolic Tbt407 BUN 21 mg/dL 05/19/2017 Comp Metabolic Tnp701 B/C Ratio 20.4 Ratio 05/19/2017 Comp Metabolic Bao845 CALCIUM 9.1 mg/dL 05/19/2017 Comp Metabolic Ugq889 ALK PHOS 74 U/L 05/19/2017 Comp Metabolic Gat992 AST(SGOT) 32 U/L 05/19/2017 Comp Metabolic Igr253 ALT(SGPT) 15 U/L 05/19/2017 Comp Metabolic Raq063 BILI T 0.6 mg/dL 05/19/2017 Comp Metabolic Urp032 ALBUMIN 3.9 g/dL 05/19/2017 Comp Metabolic Ixf069 TPRO 6.2 g/dL 05/19/2017 Comp Metabolic Gnn899 GLOB 2.3 g/dL 05/19/2017 Comp Metabolic Gub717 A/G Ratio 1.6 Ratio 05/19/2017 Comp Metabolic Nvi376 Osmo 288 mOsmo 05/19/2017 %Hba1C Ybv119 % HbA1c 16516- 6 6.8 % 05/19/2017 %Hba1C Xxz682 Gluc Ave 148 mg/dL 05/19/2017 Free T4 Zrd349 FREE T4 1.10 ng/dL 05/19/2017 B12 Bqt021 B12 >1500.00 pg/ml 05/19/2017 Cbc With Differential [...] 30.3 pg 05/19/2017 Cbc With Differential Ord2 [place]% 6.8 % 05/19/2017 Cbc With Differential Ord2 [...] 1.64 K/ul 05/19/2017 Cbc With Differential Ord2 [place] ABS# 0.6 K/ul 05/19/2017 Cbc With Differential Ord2 Eos ABS# 0.2 K/ul 05/19/2017 Cbc With Differential Ord2 Baso ABS# 0.0 K/ul 05/19/2017 Tsh Ord6 hTSH II 1.73 uIU/mL [...] 29.3 pg 12/10/2016 Cbc With Differential Ord2 [place]% 7.1 % 12/10/2016 Cbc With Differential Ord2 [...] 2.50 K/ul 12/10/2016 Cbc With Differential Ord2 [place] ABS# 0.5 K/ul 12/10/2016 Cbc With Differential Ord2 Eos ABS# 0.1 K/ul 12/10/2016 Cbc With Differential Ord2 Baso ABS# 0.0 K/ul 12/10/2016 B12 Zew709 B12 222.00 pg/ml 12/10/2016 Free T4 Tyc342 FREE T4 1.03 ng/dL 11/16/2016 Comp Metabolic Ewb088 NA 138 mEq/L 11/16/2016 Comp Metabolic Lrv867 K 3.8 mEq/L 11/16/2016 Comp Metabolic Skw067 CL 103 mEq/L 11/16/2016 Comp Metabolic Kly209 CO2 26.0 mEq/L 11/16/2016 Comp Metabolic Vmi323 ANION GAP 13 11/16/2016 Comp Metabolic Qdl507 GLUCOSE 235 mg/dL 11/16/2016 Comp Metabolic Dkw728 Creat 0.9 mg/dL 11/16/2016 Comp Metabolic Ibi148 eGFR 62 ml/min/1.73m2 11/16/2016 Comp Metabolic Rwx158 BUN 20 mg/dL 11/16/2016 Comp Metabolic Two859 B/C Ratio 21.7 Ratio 11/16/2016 Comp Metabolic Ept142 CALCIUM 8.9 mg/dL 11/16/2016 Comp Metabolic Stv860 ALK PHOS 75 U/L 11/16/2016 Comp Metabolic Iwp303 AST(SGOT) 30 U/L 11/16/2016 Comp Metabolic Bne049 ALT(SGPT) 13 U/L 11/16/2016 Comp Metabolic Dro834 BILI T 0.6 mg/dL 11/16/2016 Comp Metabolic Ird078 ALBUMIN 3.8 g/dL 11/16/2016 Comp Metabolic Vmm030 TPRO 6.8 g/dL 11/16/2016 Comp Metabolic Udu146 GLOB 3.1 g/dL 11/16/2016 Comp Metabolic Hbk528 A/G Ratio 1.2 Ratio 11/16/2016 Comp Metabolic Vqk371 Osmo 286 mOsmo 11/16/2016 %Hba1C Eat451 % HbA1c 14440- 6 7.5 % 11/16/2016 %Hba1C Lho357 Gluc Ave 169 mg/dL 11/16/2016 Tsh Ord6 hTSH II 2.50 uIU/mL 11/16/2016 Tsh Ord6 hTSH II 3.18 uIU/mL 05/21/2016 %Hba1C Rrq381 % HbA1c 51969- 6 7.5 % 05/21/2016 %Hba1C Gxi495 Gluc Ave 169 mg/dL 05/21/2016 Lipid Ord30 CHOL 212 mg/dL 05/21/2016 Lipid Ord30 HDL 43.0 mg/dl 05/21/2016 Lipid Ord30 TRIG 164 mg/dL 05/21/2016 Lipid Ord30 LDL 136 mg/dL 05/21/2016 Lipid Ord30 C/HDL 4.9 Ratio 05/21/2016 B12 Qng270 B12 159.00 pg/ml 05/21/2016 Folate Ord36 Folate >23.80 ng/mL 05/21/2016 Free T4 Yug002 FREE T4 1.03 ng/dL 05/21/2016 CHEM 14 7158709 AST 33 U/L 03/15/2016 CHEM 14 4341851 ALT 13 U/L 03/15/2016 CHEM 14 9664835 BUN 18 mg/dL 03/15/2016 CHEM 14 3099462 ALBUMIN 3.9 g/dL 03/15/2016 CHEM 14 20280127 CHLORIDE 105 mmol/L 03/15/2016 CHEM 14 20280127 Bili Total 0.4 mg/dL 03/15/2016 CHEM 14 0228138 ALK PHOS 60 U/L 03/15/2016 CHEM 14 20280127 SODIUM 138 mmol/L 03/15/2016 CHEM 14 20280127 CREATININE 0.99 mg/dL 03/15/2016 CHEM 14 7262420 CALCIUM 9.4 mg/dL 03/15/2016 CHEM 14 7419109 POTASSIUM 3.8 mmol/L 03/15/2016 CHEM 14 9827782 TOTAL PROTEIN 6.7 g/dL 03/15/2016 CHEM 14 5074465 GLUCOSE 109 mg/dL 03/15/2016 CHEM 14 3249450 Bicarbonate 27 mmol/L 03/15/2016 CHEM 14 6787167 AGAP 6 mmol/L 03/15/2016 GFR CALC 7465522 GFR Non Afr Amr 54 mL/min 03/15/2016 GFR CALC 9594051 GFR Afr Amr >60 mL/min 03/15/2016 Iron Ord72 Iron 66 ug/dl 08/07/2015 B12 Ysz020 B12 46.00 pg/ml 08/07/2015 Cbc With Differential [...] Ord6 hTSH II 0.36 uIU/mL 08/05/2015 %Hba1C Qbz044 % HbA1c 99340- 6 8.1 % 08/05/2015 %Hba1C Eha317 Gluc Ave 186 mg/dL 08/05/2015 Free T4 Kjv591 FREE T4 1.33 ng/dL 08/05/2015 Comp Metabolic Pas828 NA 137 mEq/L 08/05/2015 Comp Metabolic Mga340 K 4.5 mEq/L 08/05/2015 Comp Metabolic Vnz481 CL 104 mEq/L 08/05/2015 Comp Metabolic Vcn713 CO2 26.0 mEq/L 08/05/2015 Comp Metabolic Rzx056 ANION GAP 12 08/05/2015 Comp Metabolic Swt888 GLUCOSE 146 mg/dL 08/05/2015 Comp Metabolic Xtk287 Creat 1.0 mg/dL 08/05/2015 Comp Metabolic Elb790 eGFR 56 ml/min/1.73m2 08/05/2015 Comp Metabolic Noo206 BUN 23 mg/dL 08/05/2015 Comp Metabolic Nnx347 B/C Ratio 22.8 Ratio 08/05/2015 Comp Metabolic Efk365 CALCIUM 9.3 mg/dL 08/05/2015 Comp Metabolic Oav569 ALK PHOS 71 U/L 08/05/2015 Comp Metabolic Cbp789 AST(SGOT) 33 U/L 08/05/2015 Comp Metabolic Gmb378 ALT(SGPT) 15 U/L 08/05/2015 Comp Metabolic Ini926 BILI T 0.6 mg/dL 08/05/2015 Comp Metabolic Luj807 ALBUMIN 3.9 g/dL 08/05/2015 Comp Metabolic Als067 TPRO 6.5 g/dL 08/05/2015 Comp Metabolic Bnh315 GLOB 2.6 g/dL 08/05/2015 Comp Metabolic Cjb331 A/G Ratio 1.5 Ratio 08/05/2015 Comp Metabolic Vuu202 Osmo 280 mOsmo 08/05/2015 Free T4 Fnd343 FREE T4 0.91 ng/dL 04/11/2015 Comp Metabolic Jma290 NA 134 mEq/L 04/10/2015 Comp Metabolic Rwl652 K 4.1 mEq/L 04/10/2015 Comp Metabolic Qby665 CL 105 mEq/L 04/10/2015 Comp Metabolic Qiv421 CO2 26.0 mEq/L 04/10/2015 Comp Metabolic Fed048 ANION GAP 7 04/10/2015 Comp Metabolic Dlx892 GLUCOSE 126 mg/dL 04/10/2015 Comp Metabolic Rdo775 Creat 1.0 mg/dL 04/10/2015 Comp Metabolic Asa745 eGFR 58 ml/min/1.73m2 04/10/2015 Comp Metabolic Mon196 BUN 29 mg/dL 04/10/2015 Comp Metabolic Xcb464 B/C Ratio 29.6 Ratio 04/10/2015 Comp Metabolic Sdr432 CALCIUM 9.3 mg/dL 04/10/2015 Comp Metabolic Bic904 ALK PHOS 63 U/L 04/10/2015 Comp Metabolic Lwk494 AST(SGOT) 31 U/L 04/10/2015 Comp Metabolic Wth989 ALT(SGPT) 14 U/L 04/10/2015 Comp Metabolic Jvu763 BILI T 0.6 mg/dL 04/10/2015 Comp Metabolic Gfo952 ALBUMIN 3.9 g/dL 04/10/2015 Comp Metabolic Znr769 TPRO 6.3 g/dL 04/10/2015 Comp Metabolic Nzm571 GLOB 2.4 g/dL 04/10/2015 Comp Metabolic Hne852 A/G Ratio 1.6 Ratio 04/10/2015 Comp Metabolic Gvp853 Osmo 276 mOsmo 04/10/2015 Tsh Ord6 hTSH [...] Differential Ord2 RDW 15.8 % 04/10/2015 %Hba1C Bal303 % HbA1c 66252- 6 8.3 % 04/10/2015 %Hba1C Gqn985 Gluc Ave 192 mg/dL 04/10/2015 Review of [...] developed 11/25/2017 None Full Exam - General 1995 Constitutional general appearance Overall: in no acute [...] affect 01/02/2015 None Full Exam - General 1995 Ears/Nose/Throat otoscopic exam External auditory canal: complete cerumen impaction 01/02/2015 None Procedures Procedure Codes Date GLUC MONITOR CONT PHYS I&R CPT-4: 73857 06/05/2018 GLUCOSE MONITORING CONT CPT-4: 92337 05/22/2018 THER/PROPH/DIAG INJ SC/IM CPT-4: 79222 01/12/2018 VITAMIN B12 INJECTION CPT- 4: J3420 01/12/2018 THER/PROPH/DIAG INJ SC/IM CPT-4: 80603 09/15/2017 VITAMIN B12 INJECTION CPT- 4: J3420 09/15/2017 THER/PROPH/DIAG INJ SC/IM CPT-4: 49878 08/17/2017 VITAMIN B12 INJECTION CPT- 4: J3420 08/17/2017 THER/PROPH/DIAG INJ SC/IM CPT-4: 52135 07/19/2017 VITAMIN B12 INJECTION CPT- 4: J3420 07/19/2017 THER/PROPH/DIAG INJ SC/IM CPT-4: 01817 05/19/2017 VITAMIN B12 INJECTION CPT- 4: J3420 05/19/2017 THER/PROPH/DIAG INJ SC/IM CPT-4: 50902 04/06/2017 VITAMIN B12 INJECTION CPT- 4: J3420 04/06/2017 THER/PROPH/DIAG INJ SC/IM CPT-4: 01611 01/04/2017 VITAMIN B12 INJECTION CPT- 4: J3420 01/04/2017 THER/PROPH/DIAG INJ SC/IM CPT-4: 08730 12/10/2016 VITAMIN B12 INJECTION CPT- 4: J3420 12/10/2016 THER/PROPH/DIAG INJ SC/IM CPT-4: 96995 10/13/2016 TRIAMCINOLONE ACET INJ NOS CPT-4: J3301 10/13/2016 THER/PROPH/DIAG INJ SC/IM CPT-4: 95307 09/03/2016 VITAMIN B12 INJECTION CPT- 4: J3420 09/03/2016 THER/PROPH/DIAG INJ SC/IM CPT-4: 14068 07/29/2016 VITAMIN B12 INJECTION CPT- 4: J3420 07/29/2016 THER/PROPH/DIAG INJ SC/IM CPT-4: 30411 06/03/2016 VITAMIN B12 INJECTION CPT- 4: J3420 06/03/2016 PNEUMOCOCCAL VACC [address]: 52088944 CPT-4: 41079 04/22/2016 ADMIN PNEUMOCOCCAL VACCINE SNOMED CT: 10790452 CPT-4: G0009 04/22/2016 VITAMIN B12 INJECTION CPT- 4: J3420 09/15/2015 THER/PROPH/DIAG INJ SC/IM CPT-4: 69021 09/15/2015 THER/PROPH/DIAG INJ SC/IM CPT-4: 93548 09/08/2015 VITAMIN B12 INJECTION CPT- 4: J3420 09/08/2015 THER/PROPH/DIAG INJ SC/IM CPT-4: 32012 09/01/2015 VITAMIN B12 INJECTION CPT- 4: J3420 09/01/2015 THER/PROPH/DIAG INJ SC/IM CPT-4: 45637 08/25/2015 VITAMIN B12 INJECTION CPT- 4: J3420 08/25/2015 Vital Signs Date Vital 06/05/2018 Blood Pressure 1: 132/70 Code: 8480-6 BMI: 41.6 Code: 07329-2 Heart Rate 1: 70 bpm Height: 4'11" SpO2: 96% Weight: 206 lbs 05/22/2018 Blood Pressure 1: 148/72 Code: 8480-6 BMI: 41.6 Code: 32418-5 Heart Rate 1: 82 bpm Height: 4'11" SpO2: 95% Weight: 206 lbs 05/15/2018 Blood Pressure 1: 140/80 Code: 8480-6 BMI: 41.6 Code: 97454-8 Heart Rate 1: 86 bpm Height: 4'11" SpO2: 92% Weight: 206 lbs 01/12/2018 Blood Pressure 1: 140/78 Code: 8480-6 BMI: 42.2 Code: 18094-2 Heart Rate 1: 73 bpm Height: 4'11" SpO2: 97% Weight: 209 lbs 11/25/2017 Blood Pressure 1: 140/68 Code: 8480-6 BMI: 42.2 Code: 21014-2 Heart Rate 1: 76 bpm Height: 4'11" SpO2: 94% Weight: 209 lbs 09/15/2017 Blood Pressure 1: 146/67 Code: 8480-6 BMI: 42.2 Code: 03828-6 Heart Rate 1: 69 bpm Height: 4'11" SpO2: 97% Weight: 209 lbs 08/17/2017 Blood Pressure 1: 144/70 Code: 8480-6 BMI: 41.8 Code: 90480-6 Heart Rate 1: 63 bpm Height: 4'11" SpO2: 97% Weight: 207 lbs 07/19/2017 Blood Pressure 1: 142/74 Code: 8480-6 BMI: 41.4 Code: 84976-5 Heart Rate 1: 71 bpm Height: 4'11" SpO2: 96% Weight: 205 lbs 05/19/2017 Blood Pressure 1: 148/76 Code: 8480-6 BMI: 42.8 Code: 62924-3 Heart Rate 1: 72 bpm Height: 4'11" SpO2: 94% Weight: 212 lbs 02/15/2017 Blood Pressure 1: 154/70 Code: 8480-6 BMI: 42.5 Code: 08614-0 Heart Rate 1: 68 bpm Height: 4'11" SpO2: 97% Weight: 210 lbs 8 oz 11/16/2016 Blood Pressure 1: 142/78 Code: 8480-6 BMI: 41.6 Code: 43385-3 Heart Rate 1: 68 bpm Height: 4'11" SpO2: 95% Temperature: 36.0 (C) / 96.8 (F) Weight: 206 lbs 08/19/2016 Blood Pressure 1: 120/74 Code: 8480-6 BMI: 41.6 Code: 10540-0 Heart Rate 1: 75 bpm Height: 4'11" SpO2: 95% Weight: 206 lbs 07/15/2016 Blood Pressure 1: 140/76 Code: 8480-6 BMI: 42.0 Code: 92767-0 Heart Rate 1: 76 bpm Height: 4'11" SpO2: 96% Weight: 208 lbs 06/03/2016 Blood Pressure 1: 130/78 Code: 8480-6 BMI: 42.8 Code: 52432-4 Heart Rate 1: 72 bpm Height: 4'11" SpO2: 98% Weight: 212 lbs 04/22/2016 Blood Pressure 1: 142/84 Code: 8480-6 BMI: 41.8 Code: 65975-5 Heart Rate 1: 86 bpm Height: 4'11" SpO2: 92% Weight: 207 lbs 01/22/2016 Blood Pressure 1: 162/64 Code: 8480-6 BMI: 41.2 Code: 01273-8 Heart Rate 1: 70 bpm Height: 4'11" SpO2: 97% Weight: 204 lbs 10/23/2015 Blood Pressure 1: 130/70 Code: 8480-6 BMI: 40.4 Code: 77576-1 Heart Rate 1: 72 bpm Height: 4'11" SpO2: 95% Weight: 200 lbs 09/12/2015 Blood Pressure 1: 142/62 Code: 8480-6 BMI: 39.4 Code: 22252-9 Heart Rate 1: 63 bpm Height: 4'11" SpO2: 96% Weight: 195 lbs 08/05/2015 Blood Pressure 1: 144/60 Code: 8480-6 BMI: 41.0 Code: 01786-2 Heart Rate 1: 92 bpm Height: 4'11" SpO2: 97% SpO2: 90% Weight: 203 lbs 04/03/2015 Blood Pressure 1: 142/68 Code: 8480-6 BMI: 40.6 Code: 61072-9 Heart Rate 1: 77 bpm Height: 4'11" SpO2: 95% Weight: 201 lbs 01/30/2015 Blood Pressure 1: 150/72 Code: 8480-6 BMI: 40.2 Code: 40630-2 Heart Rate 1: 64 bpm Height: 4'11" Weight: 199 lbs 01/02/2015 Blood Pressure 1: 136/72 Code: 8480-6 BMI: 39.8 Code: 86050-1 Heart Rate 1: 68 bpm Height: 4'11" [...] data Encounters Encounter Performer Location Codes Date ( EST. PATIENT, LEVEL III Diagnosis: Type 2 diabetes mellitus with hyperglycemia[ICD10: E11.65] Giselle Knox MD, [facility] CPT-4: 71304 06/05/2018 ([id number]) Miscellaneous no charge Diagnosis: Type 2 diabetes mellitus with hyperglycemia[ICD10: E11.65] Jennifer Knox MD, [facility] CPT-4: 27201 05/29/2018 ([id number]) 73195 EST. PATIENT, LEVEL IV Diagnosis: Type 2 diabetes mellitus with hyperglycemia[ICD10: E11.65] Diagnosis: Essential (primary) hypertension[ICD10: I10] Diagnosis: Hypothyroidism, unspecified[ICD10: E03.9] Giselle Knox MD, [facility] CPT-4: 71135 05/15/2018 ([id number]) 99225 EST. PATIENT, LEVEL IV Diagnosis: Essential (primary) hypertension[ICD10: I10] Diagnosis: Type 2 diabetes mellitus with hyperglycemia[ICD10: E11.65] Diagnosis: Hypothyroidism, unspecified[ICD10: E03.9] Diagnosis: Spinal stenosis, lumbar region without neurogenic claudication[ICD10: M48.061] Diagnosis: Vitamin B12 deficiency anemia due to intrinsic factor deficiency[ICD10: D51.0] Giselle Knox MD, [facility] CPT-4: 23304 01/12/2018 ([id number]) 93297 EST. PATIENT, LEVEL IV Diagnosis: Varicose veins of bilateral lower extremities with pain[ICD10: I83.813] Diagnosis: Low back pain[ICD10: M54.5] Diagnosis: Hypothyroidism, unspecified[ICD10: E03.9] Diagnosis: Type 2 diabetes mellitus with hyperglycemia[ICD10: E11.65] Giselle Knox MD, [facility] CPT-4: 26763 11/25/2017 [id number] EST. PATIENT, LEVEL IV Diagnosis: Localized edema[ICD10: R60.0] Diagnosis: Vitamin B12 deficiency anemia due to intrinsic factor deficiency[ICD10: D51.0] Chasity Knox MD, [facility] CPT-4: 91126 09/15/2017 [id number] EST. PATIENT, LEVEL IV Diagnosis: Essential (primary) hypertension[ICD10: I10] Diagnosis: Type 2 diabetes mellitus with hyperglycemia[ICD10: E11.65] Diagnosis: Vitamin B12 deficiency anemia due to intrinsic factor deficiency[ICD10: D51.0] Chasity Knox MD, [facility] CPT-4: 83271 08/17/2017 [id number] EST. PATIENT, LEVEL IV Diagnosis: Type 2 diabetes mellitus with hyperglycemia[ICD10: E11.65] Diagnosis: Essential (primary) hypertension[ICD10: I10] Diagnosis: Vitamin B12 deficiency anemia due to intrinsic factor deficiency[ICD10: D51.0] Chasity Knox MD, [facility] CPT-4: 54432 07/19/2017 ([id number]) 74725 EST. PATIENT, LEVEL IV Diagnosis: Essential (primary) hypertension[ICD10: I10] Diagnosis: Type 2 diabetes mellitus with hyperglycemia[ICD10: E11.65] Diagnosis: Hypothyroidism, unspecified[ICD10: E03.9] Diagnosis: Vitamin B12 deficiency anemia due to intrinsic factor deficiency[ICD10: D51.0] Diagnosis: Chronic kidney disease, stage 3 (moderate)[ICD10: N18.3] Giselle Knox MD, [facility] CPT-4: 88727 05/19/2017 ([id number]) 91098 EST. PATIENT, LEVEL IV Diagnosis: Essential (primary) hypertension[ICD10: I10] Diagnosis: Type 2 diabetes mellitus with hyperglycemia[ICD10: E11.65] Diagnosis: Hypothyroidism, unspecified[ICD10: E03.9] Giselle Knox MD, [facility] CPT-4: 83442 02/15/2017 [id number]) 68741 EST. PATIENT, LEVEL IV Diagnosis: Type 2 diabetes mellitus with hyperglycemia[ICD10: E11.65] Diagnosis: Cough[ICD10: R05] Diagnosis: Acute upper respiratory infection, unspecified[ICD10: J06.9] Diagnosis: Hypothyroidism, unspecified[ICD10: E03.9] Diagnosis: Chronic kidney disease, stage 3 (moderate)[ICD10: N18.3] Giselle Knox MD, [facility] CPT-4: 80605 11/16/2016 [id number]) 33191 EST. PATIENT, LEVEL IV Diagnosis: Type 2 diabetes mellitus with hyperglycemia[ICD10: E11.65] Diagnosis: Hypothyroidism, unspecified[ICD10: E03.9] Diagnosis: Essential (primary) hypertension[ICD10: I10] Giselle Knox MD, [facility] CPT-4: 21978 08/19/2016 ([id number]) 78728 EST. PATIENT, LEVEL III Diagnosis: Type 2 diabetes mellitus with hyperglycemia[ICD10: E11.65] Giselle Knox MD, [facility] CPT-4: 83534 07/15/2016 ([id number]) 79288 EST. PATIENT, LEVEL IV Diagnosis: Type 2 diabetes mellitus with hyperglycemia[ICD10: E11.65] Diagnosis: Atrophy of thyroid (acquired)[ICD10: E03.4] Diagnosis: Vitamin B12 deficiency anemia due to intrinsic factor deficiency[ICD10: D51.0] Diagnosis: Chronic kidney disease, stage 3 (moderate)[ICD10: N18.3] Diagnosis: Essential (primary) hypertension[ICD10: I10] Jennifer Knox MD, [facility] CPT-4: 26053 06/03/2016 ([id number]) 49678 EST. PATIENT, LEVEL III Diagnosis: Type 2 diabetes mellitus with hyperglycemia[ICD10: E11.65] Diagnosis: Essential (primary) hypertension[ICD10: I10] Diagnosis: Chronic kidney disease, stage 3 (moderate)[ICD10: N18.3] Diagnosis: VACCIN STREP PNEUMONIAE[ICD10: Z23] Giselle Knox MD, [facility] CPT-4: 34884 04/22/2016 60173 EST. PATIENT, LEVEL IV Diagnosis: Type 2 diabetes mellitus with hyperglycemia[ICD10: E11.65] Diagnosis: Essential (primary) hypertension[ICD10: I10] Chasity Knox MD, [facility] CPT-4: 26676 01/22/2016 ([id number]) 49307 EST. PATIENT, LEVEL III Diagnosis: Type 2 diabetes mellitus with hyperglycemia[ICD10: E11.65] Diagnosis: Essential (primary) hypertension[ICD10: I10] Giselle Knox MD, [facility] CPT-4: 50814 10/23/2015 [id number] EST. PATIENT, LEVEL IV Diagnosis: Type 2 diabetes mellitus with hyperglycemia[ICD10: E11.65] Diagnosis: Vitamin B12 deficiency anemia due to intrinsic factor deficiency[ICD10: D51.0] Diagnosis: Essential (primary) hypertension[ICD10: I10] Chasity Knox MD, [facility] CPT-4: 11224 09/12/2015 [id number]) 25762 EST. PATIENT, LEVEL IV Diagnosis: Essential (primary) hypertension[ICD10: I10] Diagnosis: Type 2 diabetes mellitus with hyperglycemia[ICD10: E11.65] Diagnosis: Hypothyroidism, unspecified[ICD10: E03.9] [facility] CPT-4: 36364 08/05/2015 ([id number] 72937 EST. PATIENT, LEVEL III Diagnosis: ESSENTIAL HYPERTENSION[ICD9: 401.9] Diagnosis: DIABETES TYPE II[ICD9: 250.00] [facility] CPT-4: 95935 04/03/2015 ([id number]) 94316 EST. PATIENT, LEVEL IV Diagnosis: ESSENTIAL HYPERTENSION[ICD9: 401.9] Diagnosis: DIABETES TYPE II[ICD9: 250.00] Diagnosis: Hypothyroidism[ICD9: 244.9] Giselle Knox MD, [facility] CPT-4: 66417 01/30/2015 ([id number]) OFFICE VISIT, NEW - LEVEL 4 Diagnosis: ESSENTIAL HYPERTENSION[ICD9: 401.9] Diagnosis: DIABETES TYPE II[ICD9: 250.00] Diagnosis: Impacted cerumen[ICD9: 380.4] Jennifer Knox MD, [facility] CPT-4: 69934 01/02/2015 Plan of Care Planned Activity Notes [...] of plan. 06/05/2018 Appointment: Giselle Mccoy WPtel: [address] [place], [place] [phone] (15 min) Moderate 06/05/2018 Patient Education: Patient [...] IPRO. 05/22/2018 Appointment: Giselle Mccoy WPtel: [phone] [phone] (30 min) Complex 05/22/2018 Patient Education: [...] [phone] (15 min) Moderate 05/15/2018 Patient Education: Patient [...] PT 01/12/2018 Appointment: Giselle Mccoy WPtel: [phone] [phone] [place] (30 min) Complex 01/12/2018 Patient Education: Patient Medication Summary Completed 01/12/2018 Care Plan: Referral Order SNOMED-CT : [id number] Pending 01/12/2018 Visit Plan: Varicose veins-rx for compression stockings provided and instructed on use Low back pain-recommend xray lumbar spine Hypothyroidism- check labs DM-check Hgb A1c 11/25/2017 Appointment: Giselle Mccoy WPtel: [facility]5 [phone] [place] (30 min) Complex 11/25/2017 Patient Education: Patient Medication Summary Completed 11/25/2017 Care Plan: X-RAY EXAM L-S SPINE 2/3 VWS LOINC : 40255-9 Pending 11/25/2017 Visit Plan: Edema - Left [...] or concerns. 09/15/2017 Appointment: Chasity Caldwell WPtel: [facility]2 [phone] [place] (30 min) Complex 09/15/2017 Patient [...] control. 08/17/2017 Appointment: Chasity Caldwell WPtel: [phone] [phone] (15 min) Moderate 08/17/2017 Patient Education: [...] at home. 07/19/2017 Appointment: [facility] Caldwell [phone] [place] (15 min) Moderate 07/19/2017 Patient Education: Patient Medication Summary Completed 07/19/2017 [phone] ([facility] min) Moderate 06/13/2017 Visit [...] to medications. 05/19/2017 Appointment: Giselle Mccoy WPtel: [facility] [phone] (30 min) [facility] 05/19/2017 Patient Education: Patient Medication Summary [...] [phone] [phone] (15 min) Moderate 02/15/2017 Patient Education: Patient [...] [phone] [phone] (15 min) Moderate 11/16/2016 Patient Education: Patient [...] of control. 08/19/2016 Appointment: Giselle Mccoy WPtel: [facility]9 [facility] [place] [address] (15 min) Moderate 08/19/2016 Patient Education: Patient Medication Summary Completed 08/19/2016 Patient Education: Obesity Completed 08/19/2016 Care Plan: Tsh Cancelled 08/19/2016 Care Plan: %Hba1C LOINC : 41840-5 Cancelled 08/19/2016 Care Plan: Lipid Cancelled 08/19/2016 Care Plan: Free T4 patient coming back next week Cancelled 08/19/2016 Appointment: Injection 07/29/2016 Patient Education: Patient Medication Summary Completed 07/29/2016 Appointment: Giselle Mccoy WPtel: [facility]7 [phone] (30 min) Complex 07/22/2016 Visit Plan: Diabetes-having hypoglycemia in the mornings-insulin adjusted-patient and verbalized understanding of plan. Follow up in 1 month-call sooner if still having low blood sugars. Sinus congestion-start claritin 07/15/2016 Appointment: Giselle Mccoy WPtel: [facility] [place] [address] (30 min) Complex 07/15/2016 Patient Education: Patient [...] of control. 06/03/2016 Appointment: Jennifer Knox WPtel: [address] [place], [place] [address] (15 min) Moderate 06/03/2016 Patient Education: Patient [...] HGB A1C IN 1 MONTH 04/22/2016 Appointment: Bebeto Mccoyhanie [facility]el: [phone] [phone] (15 min) Moderate 04/22/2016 Patient Education: Patient [...] and flush ears if needed. 01/02/2015 Appointment: Jennfier Knox [facility]Ptel: [facility] [place] [facility] New Patient 01/02/2015 Patient Education: Patient Medication Summary Completed 01/02/2015 Patient Education: Hypertension Completed 01/02/2015 Referral: Tom Pike Referral Appointment Requested Instructions Comment compression stockings . Varicose veins-rx for compression [...] for evaluation-recommend PT COME BACK NEXT WEEK FASTING . Diabetes [...] having low blood sugars. Sinus congestion-start claritin decrease terazosin to 1/2 pill daily use [...] allow for greater blood glucose control. . Edema - Left greater than [...]
[2019-01-23 09:26] VITALS: BP 163/57
--- OUTSIDE RECORDS SUMMARY | 2019-01-23 10:11 | XMS REPORT | Continuity of Care Document ---
Author Organization Unknown Address Unknown Allergies Active Description Code Type Severity Reaction Onset Reported/Identified Relationship to Patient Clinical Status Yes No Known Drug Allergies [id number] Drug Allergy Unknown N/A 12/24/2010 Medications There [...] DERICK DAMON, [place]OU[place] M Ot 153.4 09/18/2013 DERCIK DAMON, L[place] M Ot 196.9 09/18/2013 DERICK DAMON, L[place] M Ot 244.9 09/18/2013 DERICK ADMON, LOUIS M Ot 250.00 09/18/2013 DERICK DAMON, [place] M Ot 272.0 09/18/2013 DERICK DAMON, L[place] M Ot 272.4 09/18/2013 DERICK DAMON, [place] M Ot 278.01 09/18/2013 DERICK DAMON, [place] M Ot 280.9 09/18/2013 DERICK DAMON, LOU[place] M Ot 401.9 09/18/2013 DERICK DAMON, [place] M Ot 568.0 09/18/2013 DERICK DAMON, [place] M Ot V03.82 09/18/2013 DERICK DAMON, [place] M Ot V58.67 09/18/2013 DERICK DAMON, [place] M Ot V85.41 10/12/2013 DERICK DAMON, LOU[place] M Ot 153.4 10/12/2013 DERICK DAMON, L[place] Jauregui Ot 196.9 10/12/2013 DERICK DAMON, [place] M [...] 07/09/2014 MARIAJOSE, BOBAN N Ot 250.00 07/09/2014 MARIAJSOE, BOBAN N Ot 585.3 07/09/2014 MARIAJOSE, BOBAN N Ot V58.67 07/09/2014 MARIAJOSE, BOBAN N Ot V58.69 07/09/2014 MARIAJOSE, BOBAN N Ot V58.81 07/09/2014 JASMIN VEGA MECHANIC MARINE ENGINE Ot 153.9 07/15/2014 HANSEL DAMON, DESIREE Jauregui Ot 782.3 07/22/2014 JASMIN VEGA MECHANIC MARINE ENGINE Ot 153.9 08/06/2014 BETHANY DAMON, NOELLE Chavez [...] DAMON, L[place]IS M Ot V72.84 08/06/2014 VEGAJASMIN Contreras S MECHANIC MARINE ENGINE Ot 153.6 08/06/2014 VEGAJEFFREYAH S MECHANIC MARINE ENGINE Ot 250.00 08/06/2014 VEGAJASMIN S MECHANIC MARINE ENGINE Ot 585.3 08/06/2014 VEGA HILAH S MECHANIC MARINE ENGINE Ot V58.67 08/06/2014 HANSEL DAMON, DESIREE Jauregui Ot 250.00 08/06/2014 VEGA, HILAH S MECHANIC MARINE ENGINE Ot 153.6 08/06/2014 VEGA, HILAH S MECHANIC MARINE ENGINE Ot 250.00 08/06/2014 VEGA, HILAH S MECHANIC MARINE ENGINE Ot 285.9 08/06/2014 VEGA, HILAH S MECHANIC MARINE ENGINE Ot V58.67 08/06/2014 VEGA, JEFFREYAH S MECHANIC MARINE ENGINE Ot V58.69 08/06/2014 VEGA JEFFREYAH S MECHANIC MARINE ENGINE Ot 153.6 08/06/2014 VEGA, JEFFREYAH S MECHANIC MARINE ENGINE Ot 250.00 08/06/2014 VEGA, HILAH S MECHANIC MARINE ENGINE Ot 585.3 08/06/2014 VEGA, HILAH S MECHANIC MARINE ENGINE Ot V58.67 08/06/2014 VEGA, HILAH S MECHANIC MARINE ENGINE Ot V58.69 08/06/2014 VEGA, HILAH S MECHANIC MARINE ENGINE Ot 153.6 08/06/2014 VEGA, JEFFREYAH S MECHANIC MARINE ENGINE Ot 250.00 08/06/2014 VEGA, JEFFREYAH S MECHANIC MARINE ENGINE Ot 585.3 08/06/2014 VEGA, HILAH S MECHANIC MARINE ENGINE Ot V58.67 08/06/2014 VEGA, HILAH S MECHANIC MARINE ENGINE Ot V58.69 08/06/2014 HANSEL DAMON, DESIREE M Ot 244.8 08/06/2014 HANSEL DAMON, DESIREE M Ot 250.00 08/06/2014 VEGA, HILAH S MECHANIC MARINE ENGINE Ot 153.6 08/06/2014 VEGA, HILAH S MECHANIC MARINE ENGINE Ot 250.00 08/06/2014 VEGA, HILAH S MECHANIC MARINE ENGINE Ot 585.3 08/06/2014 VEGA HILAH S MECHANIC MARINE ENGINE Ot V58.67 08/06/2014 VEGA HILAH S MECHANIC MARINE ENGINE Ot V58.69 08/06/2014 VEGAJASMIN Contreras S MECHANIC MARINE ENGINE Ot 153.6 08/06/2014 VEGA, JASMIN S MECHANIC MARINE ENGINE Ot 250.00 08/06/2014 VEGA, JASMIN S MECHANIC MARINE ENGINE Ot 585.3 08/06/2014 VEGA, JASMIN S MECHANIC MARINE ENGINE Ot V58.67 08/06/2014 VEGA, JASMIN S MECHANIC MARINE ENGINE Ot V58.69 08/06/2014 VEGA, JASMIN S MECHANIC MARINE ENGINE Ot 153.9 08/06/2014 HANSEL DAMON, DESIREE Jauregui Ot 782.3 08/06/2014 MARIAJOSE, BOBAN N Ot 153.6 08/06/2014 MARIAJOSE, BOBAN N Ot 250.00 08/06/2014 MARIAJOSE, BOBAN N Ot 585.3 08/06/2014 MARIAJOSE, BOBAN N Ot V58.67 08/06/2014 MARIAJOSE, BOBAN N Ot V58.69 08/06/2014 BETHANY DAMON, NOELLE D Ot 571.8 08/06/2014 DERICK DAMON, LOUIS M Ot 153.9 08/06/2014 DERICK DAMON, [place] M Ot V72.63 08/06/2014 DERICK DAMON, [place] M Ot V74.8 08/06/2014 MARIAJOSE, BOBAN N Ot 153.9 08/06/2014 MARIAJOSE, BOBAN N Ot 153.9 08/06/2014 MARIAJOSE, BOBAN N Ot 793.6 08/06/2014 DERICK DAMON, LOUIS M Ot 153.9 08/06/2014 DERICK DAMON, [place] M Ot V72.84 08/06/2014 VEGAJASMIN Contreras S MECHANIC MARINE ENGINE Ot 153.6 08/06/2014 VEGAJASMIN S MECHANIC MARINE ENGINE Ot 250.00 08/06/2014 VEGAJASMIN S MECHANIC MARINE ENGINE Ot 585.3 08/06/2014 VEGAJASMIN S MECHANIC MARINE ENGINE Ot V58.67 08/06/2014 HANSEL DAMON, DESIREE Jauregui Ot 250.00 08/06/2014 VEGA, JASMIN S MECHANIC MARINE ENGINE Ot 153.6 08/06/2014 VEGA, JASMIN S MECHANIC MARINE ENGINE Ot 250.00 08/06/2014 VEGA, JASMIN S MECHANIC MARINE ENGINE Ot 285.9 08/06/2014 VEGA, JASMIN S MECHANIC MARINE ENGINE Ot V58.67 08/06/2014 VEGA, JEFFREYAH S MECHANIC MARINE ENGINE Ot V58.69 08/06/2014 VEGA, JASMIN S MECHANIC MARINE ENGINE Ot 153.6 08/06/2014 VEGA, JASMNI S MECHANIC MARINE ENGINE Ot 250.00 08/06/2014 VEGA, JASMIN S MECHANIC MARINE ENGINE Ot 585.3 08/06/2014 VEGA, JEFFREYAH S MECHANIC MARINE ENGINE Ot V58.67 08/06/2014 VEGA, JEFFREYAH S MECHANIC MARINE ENGINE Ot V58.69 08/06/2014 VEGA, JASMIN S MECHANIC MARINE ENGINE Ot 153.6 08/06/2014 VEGA, JASMIN S MECHANIC MARINE ENGINE Ot 250.00 08/06/2014 VEGA, JASMIN S MECHANIC MARINE ENGINE Ot 585.3 08/06/2014 VEGA, JASMIN S MECHANIC MARINE ENGINE Ot V58.67 08/06/2014 VEGA, JASMIN S MECHANIC MARINE ENGINE Ot V58.69 08/06/2014 HANSEL DAMON, DESIREE Jauregui Ot 244.8 08/06/2014 HANSEL DAMON, DESIREE Jauregui Ot 250.00 08/06/2014 VEGA, JASMIN S MECHANIC MARINE ENGINE Ot 153.6 08/06/2014 VEGA, JASMIN S MECHANIC MARINE ENGINE Ot 250.00 08/06/2014 VEGA, JASMIN S MECHANIC MARINE ENGINE Ot 585.3 08/06/2014 VEGA, JASMIN S MECHANIC MARINE ENGINE Ot V58.67 08/06/2014 VEGA, JASMIN S MECHANIC MARINE ENGINE Ot V58.69 08/06/2014 VEGA, JASMIN S MECHANIC MARINE ENGINE Ot 153.6 08/06/2014 VEGA, JASMIN S MECHANIC MARINE ENGINE Ot 250.00 08/06/2014 VEGA, JASMIN S MECHANIC MARINE ENGINE Ot 585.3 08/06/2014 VEGA, JASMIN S MECHANIC MARINE ENGINE Ot V58.67 08/06/2014 VEGA, JASMIN S MECHANIC MARINE ENGINE Ot V58.69 08/06/2014 VEGA, JEFFREYAH S MECHANIC MARINE ENGINE Ot 153.9 08/06/2014 HANSEL DAMON, DESIREE M [...] N Ot V58.69 09/09/2014 BETHANY DAMON, NOELLE D Ot 571.8 09/09/2014 DERICK DAMON, LOIUS M Ot 153.9 09/09/2014 DERICK DAMON, L[place] M Ot V72.63 09/09/2014 DERICK DAMON, [place] M Ot V74.8 09/09/2014 MARIAJOSE, BOBAN N Ot 153.9 09/09/2014 MARIAJOSE, BOBAN N Ot 153.9 09/09/2014 MARIAJOSE, BOBAN N Ot 793.6 09/09/2014 DERICK DAMON, LOUIS M Ot 153.9 09/09/2014 DERICK DAMON, [place] M Ot V72.84 09/09/2014 JASMIN VEGA S MECHANIC MARINE ENGINE Ot 153.6 09/09/2014 VEGAJASMIN Contreras S MECHANIC MARINE ENGINE Ot 250.00 09/09/2014 VEGAJASMIN Contreras S MECHANIC MARINE ENGINE Ot 585.3 09/09/2014 JASMIN VEGA S MECHANIC MARINE ENGINE Ot V58.67 09/09/2014 HANSEL DAMON, DESIREE Jauregui Ot 250.00 09/09/2014 VEGAJASMIN Contreras S MECHANIC MARINE ENGINE Ot 153.6 09/09/2014 VEGAJASMIN Contreras S MECHANIC MARINE ENGINE Ot 250.00 09/09/2014 VEGAJASMIN Contreras S MECHANIC MARINE ENGINE Ot 285.9 09/09/2014 JASMIN VEGA S MECHANIC MARINE ENGINE Ot V58.67 09/09/2014 VEGAJASMIN Contreras S MECHANIC MARINE ENGINE Ot V58.69 09/09/2014 VEGA, JASMIN S MECHANIC MARINE ENGINE Ot 153.6 09/09/2014 VEGA, JEFFREYAH S MECHANIC MARINE ENGINE Ot 250.00 09/09/2014 VEGA, JEFFREYAH S MECHANIC MARINE ENGINE Ot 585.3 09/09/2014 VEGA, JASMIN S MECHANIC MARINE ENGINE Ot V58.67 09/09/2014 VEGA, JASMIN S MECHANIC MARINE ENGINE Ot V58.69 09/09/2014 VEGA, JASMIN S MECHANIC MARINE ENGINE Ot 153.6 09/09/2014 VEGA, JASMIN S MECHANIC MARINE ENGINE Ot 250.00 09/09/2014 VEGA, JASMIN S MECHANIC MARINE ENGINE Ot 585.3 09/09/2014 VEGA, JASMIN S MECHANIC MARINE ENGINE Ot V58.67 09/09/2014 VEGAJASMIN S MECHANIC MARINE ENGINE Ot V58.69 09/09/2014 HANSEL DAMON, DESIREE Jauregui Ot 244.8 09/09/2014 HANSEL DAMON, DESIREE Jauregui Ot 250.00 09/09/2014 VEGAJASMIN S MECHANIC MARINE ENGINE Ot 153.6 09/09/2014 VEGAJASMIN S MECHANIC MARINE ENGINE Ot 250.00 09/09/2014 VEGAJASMIN S MECHANIC MARINE ENGINE Ot 585.3 09/09/2014 VEGA, JASMIN S MECHANIC MARINE ENGINE Ot V58.67 09/09/2014 VEGA, JASMIN S MECHANIC MARINE ENGINE Ot V58.69 09/09/2014 VEGAJASMIN S MECHANIC MARINE ENGINE Ot 153.6 09/09/2014 VEGAJASMIN S MECHANIC MARINE ENGINE Ot 250.00 09/09/2014 VEGAJASMIN S MECHANIC MARINE ENGINE Ot 585.3 09/09/2014 VEGA, JASMIN S MECHANIC MARINE ENGINE Ot V58.67 09/09/2014 VEGA, JASMIN S MECHANIC MARINE ENGINE Ot V58.69 09/09/2014 VEGA, JASMIN S MECHANIC MARINE ENGINE Ot 153.9 09/09/2014 HANSEL DAMON, DESIREE M Ot 782.3 09/09/2014 NORI BILLY N Ot 153.6 09/09/2014 NORI BILLY N Ot 250.00 09/09/2014 NORI BILLY N Ot 585.3 09/09/2014 NORI BILLY N Ot V58.67 09/09/2014 MARIAJOSENORI AGUILAR N Ot V58.69 09/09/2014 HANSEL DAMON, DESIREE [...] M Ot V72.84 09/09/2014 JASMIN VEGA S MECHANIC MARINE ENGINE Ot 153.6 09/09/2014 JASMIN VEGA S MECHANIC MARINE ENGINE Ot 250.00 09/09/2014 JASMIN VEGA S MECHANIC MARINE ENGINE Ot 585.3 09/09/2014 JASMIN VEGA S MECHANIC MARINE ENGINE Ot V58.67 09/09/2014 HANSEL DAMON, DESIREE M Ot 250.00 09/09/2014 JASMIN VEGA S MECHANIC MARINE ENGINE Ot 153.6 09/09/2014 JASMIN VEGA S MECHANIC MARINE ENGINE Ot 250.00 09/09/2014 VEGAJASMIN Contreras S MECHANIC MARINE ENGINE Ot 285.9 09/09/2014 JASMIN VEGA S MECHANIC MARINE ENGINE Ot V58.67 09/09/2014 JASMIN VEGA S MECHANIC MARINE ENGINE Ot V58.69 09/09/2014 VEGA, JEFFREYAH S MECHANIC MARINE ENGINE Ot 153.6 09/09/2014 VEGA, JASMIN S MECHANIC MARINE ENGINE Ot 250.00 09/09/2014 VEGA, JASMIN S MECHANIC MARINE ENGINE Ot 585.3 09/09/2014 VEGA, JEFFREYAH S MECHANIC MARINE ENGINE Ot V58.67 09/09/2014 VEGA, JEFFREYAH S MECHANIC MARINE ENGINE Ot V58.69 09/09/2014 VEGA, JASMIN S MECHANIC MARINE ENGINE Ot 153.6 09/09/2014 VEGA, JASMIN S MECHANIC MARINE ENGINE Ot 250.00 09/09/2014 VEGA, JASMIN S MECHANIC MARINE ENGINE Ot 585.3 09/09/2014 VEGA, JASMIN S MECHANIC MARINE ENGINE Ot V58.67 09/09/2014 VEGA, JASMIN S MECHANIC MARINE ENGINE Ot V58.69 09/09/2014 HANSEL DAMON, DESIREE Jauregui Ot 244.8 09/09/2014 HANSEL DAMON, DESIREE Jauregui Ot 250.00 09/09/2014 VEGAJASMIN S MECHANIC MARINE ENGINE Ot 153.6 09/09/2014 VEGA, JASMIN S MECHANIC MARINE ENGINE Ot 250.00 09/09/2014 VEGA, JASMIN S MECHANIC MARINE ENGINE Ot 585.3 09/09/2014 VEGA, JASMIN S MECHANIC MARINE ENGINE Ot V58.67 09/09/2014 VEGA, JASMIN S MECHANIC MARINE ENGINE Ot V58.69 09/09/2014 VEGA, JASMIN S MECHANIC MARINE ENGINE Ot 153.6 09/09/2014 VEGA, JASMIN S MECHANIC MARINE ENGINE Ot 250.00 09/09/2014 VEGA, JASMIN S MECHANIC MARINE ENGINE Ot 585.3 09/09/2014 VEGA, JASMIN S MECHANIC MARINE ENGINE Ot V58.67 09/09/2014 VEGA, JASMIN S MECHANIC MARINE ENGINE Ot V58.69 09/09/2014 VEGA, JASMIN S MECHANIC MARINE ENGINE Ot 153.9 09/09/2014 HANSEL DAMON, DESIREE M Ot 782.3 09/09/2014 NORI BILLY N Ot 153.6 09/09/2014 NORI BILLY N Ot 250.00 09/09/2014 NORI BILLY N Ot 585.3 09/09/2014 NORI BILLY N Ot V58.67 09/09/2014 MARIAJOSE, BOBAN N Ot V58.69 09/09/2014 HANSEL DAMON, DESIREE Jauregui Ot V76.12 09/09/2014 DERICK DAMON, L[place] Jauregui Ot V72.84 09/10/2014 Ot V76.12 09/18/2014 Ot [...] MARIAJOSE, BOBAN N Ot 250.00 03/24/2015 MARIAJOSE, BOBAN N Ot 585.3 03/24/2015 MARIAJOSE, BOBAN N Ot V58.67 03/24/2015 MARIAJOSE, BOBAN N Ot V58.69 03/24/2015 MARIAJOSE, BOBAN N Ot V58.81 04/08/2015 Ot V76.12 04/09/2015 JASMIN VEGA MECHANIC MARINE ENGINE Ot 153.6 04/09/2015 JASMIN VEGA MECHANIC MARINE ENGINE Ot 250.00 04/09/2015 JASMIN VEGA MECHANIC MARINE ENGINE Ot 585.3 04/09/2015 JASMIN VEGA MECHANIC MARINE ENGINE Ot V58.67 04/09/2015 JASMIN VEGA S MECHANIC MARINE ENGINE Ot V58.69 04/23/2015 MARIAJOSE, BOBAN N Ot 153.6 04/23/2015 MARIAJOSE, BOBAN N Ot 250.00 04/23/2015 MARIAJOSE, BOBAN N Ot 585.3 04/23/2015 MARIAJOSE, BOBAN N Ot V58.67 04/23/2015 MARIAJOSE, BOBAN N Ot V58.69 04/23/2015 MARIAJOSE, BOBAN N Ot V58.81 04/23/2015 JASMIN VEGA S MECHANIC MARINE ENGINE Ot 153.6 04/23/2015 JASMIN VEGA MECHANIC MARINE ENGINE Ot 250.00 04/23/2015 JASMIN VEGA MECHANIC MARINE ENGINE Ot 585.3 04/23/2015 JASMIN VEGA MECHANIC MARINE ENGINE Ot V58.67 04/23/2015 VEGAJASMIN Contreras MECHANIC MARINE ENGINE Ot V58.69 05/22/2015 MARIAJOSE, SHANNAAN N Ot 153.6 05/22/2015 MARIAJOSE, BOBAN N [...] 09/23/2015 Ot Z79.899 09/23/2015 Ot Z92.21 10/03/2015 MARIAJOSEONRI AGUILAR N Ot C18.2 10/03/2015 MARIAJOSE, NORI [...] MARIAJOSE, BOBAN N Ot 153.9 10/31/2015 MARIAJOSE, BOBOMARI N Ot 153.9 10/31/2015 MARIAJOSE, BOBOMARI N Ot 793.6 10/31/2015 DERICK DAMON, LOUIS M Ot 153.9 10/31/2015 DERICK DAMON, [place] M Ot V72.84 10/31/2015 JASMIN VEGA Ot 153.6 10/31/2015 VEGAJASMIN Contreras S MECHANIC MARINE ENGINE Ot 250.00 10/31/2015 VEGAJASMIN S MECHANIC MARINE ENGINE Ot 585.3 10/31/2015 VEGAJASMIN S MECHANIC MARINE ENGINE Ot V58.67 10/31/2015 HANSEL DAMON, DESIREE M Ot 250.00 10/31/2015 VEGAJASMIN S MECHANIC MARINE ENGINE Ot 153.6 10/31/2015 VEGAJASMIN S MECHANIC MARINE ENGINE Ot 250.00 10/31/2015 VEGAJASMIN S MECHANIC MARINE ENGINE Ot 285.9 10/31/2015 VEGAJASMIN S MECHANIC MARINE ENGINE Ot V58.67 10/31/2015 VEGA, JASMIN S MECHANIC MARINE ENGINE Ot V58.69 10/31/2015 VEGA, JASMIN S MECHANIC MARINE ENGINE Ot 153.6 10/31/2015 VEGAJASMIN S MECHANIC MARINE ENGINE Ot 250.00 10/31/2015 VEGAJASMIN S MECHANIC MARINE ENGINE Ot 585.3 10/31/2015 VEGAJASMIN S MECHANIC MARINE ENGINE Ot V58.67 10/31/2015 VEGAJASMIN S MECHANIC MARINE ENGINE Ot V58.69 10/31/2015 VEGAJASMIN S MECHANIC MARINE ENGINE Ot 153.6 10/31/2015 VEGAJASMIN S MECHANIC MARINE ENGINE Ot 250.00 10/31/2015 VEGAJASMIN S MECHANIC MARINE ENGINE Ot 585.3 10/31/2015 VEGAJASMIN S MECHANIC MARINE ENGINE Ot V58.67 10/31/2015 VEGAJASMIN S MECHANIC MARINE ENGINE Ot V58.69 10/31/2015 HANSEL DAMON, DESIREE M Ot 244.8 10/31/2015 DESIREE HAMM MD M Ot 250.00 10/31/2015 VEGAJASMIN S MECHANIC MARINE ENGINE Ot 153.6 10/31/2015 VEGAJASMIN S MECHANIC MARINE ENGINE Ot 250.00 10/31/2015 VEGAJASMIN S MECHANIC MARINE ENGINE Ot 585.3 10/31/2015 VEGA, JASMIN S MECHANIC MARINE ENGINE Ot V58.67 10/31/2015 VEGA, HILKVNG S MECHANIC MARINE ENGINE Ot V58.69 10/31/2015 VEGA, JASMIN S MECHANIC MARINE ENGINE Ot 153.6 10/31/2015 VEGA, JASMIN S MECHANIC MARINE ENGINE Ot 250.00 10/31/2015 VEGAJASMIN Contreras S MECHANIC MARINE ENGINE Ot 585.3 10/31/2015 VEGAJASMIN S MECHANIC MARINE ENGINE Ot V58.67 10/31/2015 VEGAJASMIN S MECHANIC MARINE ENGINE Ot V58.69 10/31/2015 VEGAJASMIN Contreras S MECHANIC MARINE ENGINE Ot 153.9 10/31/2015 HANSEL DAMON, DESIREE M Ot 782.3 10/31/2015 HANSEL DAMON, DESIREE M Ot V76.12 10/31/2015 VEGAJASMIN S MECHANIC MARINE ENGINE Ot 153.6 10/31/2015 VEGAJASMIN S MECHANIC MARINE ENGINE Ot 250.00 10/31/2015 VEGAJASMIN S MECHANIC MARINE ENGINE Ot 585.3 10/31/2015 VEGAJASMIN S MECHANIC MARINE ENGINE Ot V58.67 10/31/2015 VEGAJASMIN S MECHANIC MARINE ENGINE Ot V58.69 10/31/2015 DERICK DAMON, LOUIS M Ot V72.84 10/31/2015 VEGAJASMIN S MECHANIC MARINE ENGINE Ot 153.6 10/31/2015 VEGAJASMIN S MECHANIC MARINE ENGINE Ot 250.00 10/31/2015 VEGAJASMIN S MECHANIC MARINE ENGINE Ot 585.3 10/31/2015 VEGAJASMIN S MECHANIC MARINE ENGINE Ot V58.67 10/31/2015 VEGAJASMIN S MECHANIC MARINE ENGINE Ot V58.69 10/31/2015 Ot C18.2 10/31/2015 Ot [...] MARIAJOSE, BOBAN N Ot Z92.21 11/03/2015 CHINO SADNERS MECHANIC MARINE ENGINE Ot Z12.31 11/07/2015 NORI BILLY Ot C18.2 MALIGNANT NEOPLASM OF ASCENDING COLON 11/07/2015 NORI BILLY Ot E03.9 HYPOTHYROIDISM, UNSPECIFIED 11/07/2015 NORI BILLY N Ot 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 11/07/2015 NORI BILLY N Ot N18.3 CHRONIC KIDNEY DISEASE, STAGE 3 (MODERAT 11/07/2015 NORI BILLY Ot Z45.2 ENCOUNTER FOR ADJUSTMENT AND MANAGEMENT 11/07/2015 NORI BILLY N Ot Z79.4 FDC (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 11/07/2015 NORI BILLY N Ot Z79.899 OTHER FDC (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 11/07/2015 NORI BILLY N Ot Z92.21 PERSONAL HISTORY OF ANTINEOPLASTIC CHEMO 11/14/2015 CHINO SANDERS MECHANIC MARINE ENGINE Ot Z12.31 ENCNTR SCREEN MAMMOGRAM FOR MALIGNANT NE 11/25/2015 JASMIN VEGA MECHANIC MARINE ENGINE Ot C18.2 MALIGNANT NEOPLASM OF ASCENDING COLON 11/25/2015 JASMIN VEGA MECHANIC MARINE ENGINE Ot C79.89 SECONDARY MALIGNANT NEOPLASM OF OTHER SP 11/25/2015 JASMIN VEGA MECHANIC MARINE ENGINE Ot D64.9 ANEMIA, UNSPECIFIED 11/25/2015 JASMIN VEGA MECHANIC MARINE ENGINE Ot E03.9 HYPOTHYROIDISM, UNSPECIFIED 11/25/2015 JASMIN VEGA S MECHANIC MARINE ENGINE Ot 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 11/25/2015 JASMIN VEGA MECHANIC MARINE ENGINE Ot N18.3 CHRONIC KIDNEY DISEASE, STAGE 3 (MODERAT 11/25/2015 JASMIN VEGA MECHANIC MARINE ENGINE Ot Z79.4 FDC (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 11/25/2015 JASMIN VEGA MECHANIC MARINE ENGINE Ot 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 11/25/2015 JASMIN VEGA MECHANIC MARINE ENGINE Ot 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 11/25/2015 JASMIN VEGA MECHANIC MARINE ENGINE Ot Z92.21 PERSONAL HISTORY OF ANTINEOPLASTIC CHEMO 12/10/2015 JASMIN VEGA MECHANIC MARINE ENGINE Ot C18.2 MALIGNANT NEOPLASM OF ASCENDING COLON 12/10/2015 JASMIN VEGA S MECHANIC MARINE ENGINE Ot C79.89 SECONDARY MALIGNANT NEOPLASM OF OTHER SP 12/10/2015 JASMIN VEGA MECHANIC MARINE ENGINE Ot D64.9 ANEMIA, UNSPECIFIED 12/10/2015 JASMIN VEGA MECHANIC MARINE ENGINE Ot E03.9 HYPOTHYROIDISM, UNSPECIFIED 12/10/2015 JASMIN VEGA MECHANIC MARINE ENGINE Ot 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 12/10/2015 JASMIN VEGA MECHANIC MARINE ENGINE Ot N18.3 CHRONIC KIDNEY DISEASE, STAGE 3 (MODERAT 12/10/2015 JASMIN VEGA MECHANIC MARINE ENGINE Ot 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 12/10/2015 JASMIN VEGA MECHANIC MARINE ENGINE Ot Z79.899 OTHER FDC (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 12/10/2015 JASMIN VEGA MECHANIC MARINE ENGINE Ot 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 12/10/2015 JASMIN VEGA MECHANIC MARINE ENGINE Ot Z92.21 PERSONAL HISTORY OF ANTINEOPLASTIC CHEMO 12/31/2015 MARIAJOSE, BOBAN N Ot C18.2 MALIGNANT NEOPLASM OF ASCENDING COLON 12/31/2015 MARIAJOSENORI AGUILAR N Ot E03.9 HYPOTHYROIDISM, UNSPECIFIED 12/31/2015 MARIAJOSE BOBAN N Ot 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 12/31/2015 MARIAJOSE BOBAN N Ot N18.3 CHRONIC KIDNEY DISEASE, STAGE 3 (MODERAT 12/31/2015 MARIAJOSE BOBAN N Ot Z45.2 ENCOUNTER FOR ADJUSTMENT AND MANAGEMENT 12/31/2015 MARIAJOSESHANNAAN N Ot Z79.4 FDC (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 12/31/2015 MARIAJOSESHANNAAN N Ot 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 12/31/2015 MARIAJOSE BOBAN N Ot Z92.21 PERSONAL HISTORY OF ANTINEOPLASTIC CHEMO 01/01/2016 MARIAJOSE BOBAN N Ot C18.2 MALIGNANT NEOPLASM OF ASCENDING COLON 01/01/2016 MARIAJOSE BOBAN N Ot E03.9 HYPOTHYROIDISM, UNSPECIFIED 01/01/2016 MARIAJOSE, BOBAN N Ot 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 01/01/2016 MARIAJOSE BOBAN N Ot N18.3 CHRONIC KIDNEY DISEASE, STAGE 3 (MODERAT 01/01/2016 MARIAJOSE BOBAN N Ot Z45.2 ENCOUNTER FOR ADJUSTMENT AND MANAGEMENT 01/01/2016 MARIAJOSE BOBAN N Ot 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 01/01/2016 MARIAJOSE BOBAN N Ot 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 01/01/2016 MARIAJOSE BOBOMARI N Ot Z92.21 PERSONAL HISTORY OF ANTINEOPLASTIC CHEMO 01/28/2016 MARIAJOSE BOBAN N Ot C18.2 MALIGNANT NEOPLASM OF ASCENDING COLON 01/28/2016 MARIAJOSENORI N Ot E03.9 HYPOTHYROIDISM, UNSPECIFIED 01/28/2016 MARIAJOSE, BOBAN N Ot 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 01/28/2016 MARIAJOSE BOBAN N Ot N18.3 CHRONIC KIDNEY DISEASE, STAGE 3 (MODERAT 01/28/2016 MARIAJOSE BOBAN N Ot Z45.2 ENCOUNTER FOR ADJUSTMENT AND MANAGEMENT 01/28/2016 MARIAJOSE BOBOMARI N Ot Z79.4 FDC (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 01/28/2016 MARIAJOSE BOBOMARI N Ot Z79.899 OTHER [facility] (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 01/28/2016 MARIAJOSE, BOBOMARI N Ot Z92.21 PERSONAL HISTORY OF ANTINEOPLASTIC CHEMO 02/06/2016 MARIAJOSE BOBAN N Ot C18.2 MALIGNANT NEOPLASM OF ASCENDING COLON 02/06/2016 MARIAJOSE BOBAN N Ot E03.9 HYPOTHYROIDISM, UNSPECIFIED 02/06/2016 MARIAJOSE, BOBAN N Ot 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 02/06/2016 MARIAJOSE BOBOMARI N Ot N18.3 CHRONIC KIDNEY DISEASE, STAGE 3 (MODERAT 02/06/2016 MARIAJOSE BOBOMARI N Ot Z79.4 FDC (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 02/06/2016 MARIAJOSENORI N Ot Z79.899 OTHER [facility]DC (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 02/06/2016 MARIAJOSE, BOBAN N Ot Z92.21 PERSONAL HISTORY OF ANTINEOPLASTIC CHEMO 02/06/2016 ROSEANNE GARRISON [employer] INSURANCE CLAIM EXAMINER Ot E03.9 HYPOTHYROIDISM, UNSPECIFIED 02/06/2016 ROSEANNE GARRISON [employer] INSURANCE CLAIM EXAMINER Ot E11.9 TYPE 2 DIABETES MELLITUS WITHOUT COMPLIC 02/20/2016 ROSEANNE GARRISON [employer] INSURANCE CLAIM EXAMINER Ot E03.9 HYPOTHYROIDISM, UNSPECIFIED 02/20/2016 ROSEANNE GARRISON [employer] INSURANCE CLAIM EXAMINER Ot E11.9 TYPE 2 DIABETES MELLITUS WITHOUT COMPLIC 03/17/2016 MARIAJOSENORI N Ot C18.2 MALIGNANT NEOPLASM OF ASCENDING COLON 03/17/2016 MARIAJOSE BOBAN N Ot E03.9 HYPOTHYROIDISM, UNSPECIFIED 03/17/2016 MARIAJOSE, BOBAN N Ot 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 03/17/2016 MARIAJOSE, BOBAN N Ot N18.3 CHRONIC KIDNEY DISEASE, STAGE 3 (MODERAT 03/17/2016 MARIAJOSE, BOBAN N Ot Z79.4 FDC (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 03/17/2016 MARIAJOSE, BOBAN N Ot 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 03/17/2016 MARIAJOSE, BOBAN N Ot Z92.21 PERSONAL HISTORY OF ANTINEOPLASTIC CHEMO 04/26/2016 MARIAJOSE, BOBAN N Ot C18.2 MALIGNANT NEOPLASM OF ASCENDING COLON 04/26/2016 MARIAJOSE, BOBAN N Ot E03.9 HYPOTHYROIDISM, UNSPECIFIED 04/26/2016 MARIAJOSE, BOBAN N Ot 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 04/26/2016 MARIAJOSE, BOBAN N Ot N18.3 CHRONIC KIDNEY DISEASE, STAGE 3 (MODERAT 04/26/2016 MARIAJOSE, BOBAN N Ot 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 04/26/2016 MARIAJOSE, BOBAN N Ot 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 04/26/2016 MARIAJOSE, BOBAN N Ot Z92.21 PERSONAL HISTORY OF ANTINEOPLASTIC CHEMO 04/30/2016 MARIAJOSE, BOBAN N Ot C18.2 MALIGNANT NEOPLASM OF ASCENDING COLON 04/30/2016 MARIAJOSE, BOBAN N Ot E03.9 HYPOTHYROIDISM, UNSPECIFIED 04/30/2016 MARIAJOSE, BOBAN N Ot 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 04/30/2016 MARIAJOSE, BOBAN N Ot N18.3 CHRONIC KIDNEY DISEASE, STAGE 3 (MODERAT 04/30/2016 MARIAJOSE, BOBAN N Ot 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 04/30/2016 MARIAJOSE, BOBAN N Ot Z79.899 OTHER FDC (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 04/30/2016 MARIAJOSE, BOBAN N Ot Z92.21 PERSONAL HISTORY OF ANTINEOPLASTIC CHEMO 06/10/2016 MARIAJOSE, BOBAN N Ot C18.2 MALIGNANT NEOPLASM OF ASCENDING COLON 06/10/2016 MARIAJOSE, BOBAN N Ot E03.9 HYPOTHYROIDISM, UNSPECIFIED 06/10/2016 MARIAJOSE, BOBAN N Ot 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 06/10/2016 MARIAJOSE, BOBAN N Ot N18.3 CHRONIC KIDNEY DISEASE, STAGE 3 (MODERAT 06/10/2016 MARIAJOSE, BOBAN N Ot 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 06/10/2016 MARIAJOSE, BOBAN N Ot Z79.899 OTHER FDC (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 06/10/2016 MARIAJOSE, BOBAN N Ot Z92.21 PERSONAL HISTORY OF ANTINEOPLASTIC CHEMO 07/28/2016 MARIAJOSE, BOBAN N Ot C18.2 MALIGNANT NEOPLASM OF ASCENDING COLON 07/28/2016 MARIAJOSE, BOBAN N Ot E03.9 HYPOTHYROIDISM, UNSPECIFIED 07/28/2016 MARIAJOSE, BOBAN N Ot 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 07/28/2016 MARIAJOSE, BOBAN N Ot N18.3 CHRONIC KIDNEY DISEASE, STAGE 3 (MODERAT 07/28/2016 MARIAJOSE, BOBAN N Ot Z79.4 FDC (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 07/28/2016 MARIAJOSE, BOBAN N Ot 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 07/28/2016 MARIAJOSE, BOBAN N Ot Z92.21 PERSONAL HISTORY OF ANTINEOPLASTIC CHEMO 07/30/2016 MARIAJOSE, BOBAN N Ot C18.2 MALIGNANT NEOPLASM OF ASCENDING COLON 07/30/2016 MARIAJOSE, BOBAN N Ot E03.9 HYPOTHYROIDISM, UNSPECIFIED 07/30/2016 MARIAJOSE, BOBAN N Ot 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 07/30/2016 MARIAJOSE, BOBAN N Ot N18.3 CHRONIC KIDNEY DISEASE, STAGE 3 (MODERAT 07/30/2016 MARIAJOSE, BOBAN N Ot 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 07/30/2016 MARIAJOSE, BOBAN N Ot 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 07/30/2016 MARIAJOSE, BOBAN N Ot Z92.21 PERSONAL HISTORY OF ANTINEOPLASTIC CHEMO 10/08/2016 MARIAJOSE, BOBAN N Ot C18.2 MALIGNANT NEOPLASM OF ASCENDING COLON 10/08/2016 MARIAJOSE, BOBAN N Ot E03.9 HYPOTHYROIDISM, UNSPECIFIED 10/08/2016 MARIAJOSE, BOBAN N Ot 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 10/08/2016 NORI BILLY N Ot N18.3 CHRONIC KIDNEY DISEASE, STAGE 3 (MODERAT 10/08/2016 NORI BILLY N Ot R82.99 OTHER ABNORMAL FINDINGS IN URINE 10/08/2016 NORI BILLY N Ot Z79.4 FDC (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 10/08/2016 NORI BILLY N Ot 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 10/08/2016 NORI BILLY N Ot Z92.21 PERSONAL HISTORY OF ANTINEOPLASTIC CHEMO 10/18/2016 MARIAJOSE BOBOMARI N Ot C18.2 MALIGNANT NEOPLASM OF ASCENDING COLON 10/18/2016 NORI BILLY N Ot E03.9 HYPOTHYROIDISM, UNSPECIFIED 10/18/2016 MARIAJOSE, BOBAN N Ot 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 10/18/2016 MARIAJOSE BOBOMARI N Ot N18.3 CHRONIC KIDNEY DISEASE, STAGE 3 (MODERAT 10/18/2016 NORI BILLY N Ot R82.99 OTHER ABNORMAL FINDINGS IN URINE 10/18/2016 NORI BILLY N Ot Z79.4 FDC (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 10/18/2016 NORI BILLY N Ot 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 10/18/2016 NORI BILLY N Ot Z92.21 PERSONAL HISTORY OF ANTINEOPLASTIC CHEMO 10/18/2016 Ot 793.82 INCONCLUSIVE MAMMOGRAM 10/18/2016 Ot V76.12 OTH SCREEN MAMMO- MALIGN NEOPLASM OF LIANA 10/18/2016 HANSEL DAMON, DESIREE Jauregui Ot V76.12 OTH SCREEN MAMMO-MALIGN NEOPLASM OF [place]IANA 10/18/2016 NORI BILLY N Ot C18.2 MALIGNANT NEOPLASM OF ASCENDING COLON 10/18/2016 NORI BILLY N Ot E03.9 HYPOTHYROIDISM, UNSPECIFIED 10/18/2016 NORI BILLY N Ot 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 10/18/2016 NORI BILLY N Ot N18.3 CHRONIC KIDNEY DISEASE, STAGE 3 (MODERAT 10/18/2016 NORI BILLY N Ot R82.99 OTHER ABNORMAL FINDINGS IN URINE 10/18/2016 NORI BILLY N Ot Z79.4 FDC (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 10/18/2016 NORI BILLY N Ot 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 10/18/2016 NORI BILLY N Ot Z92.21 PERSONAL HISTORY OF ANTINEOPLASTIC CHEMO 10/27/2016 NORI BILLY N Ot C18.2 MALIGNANT NEOPLASM OF ASCENDING COLON 10/27/2016 NORI BILLY N Ot E03.9 HYPOTHYROIDISM, UNSPECIFIED 10/27/2016 NORI BILLY N Ot 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 10/27/2016 NORI BILLY N Ot N18.3 CHRONIC KIDNEY DISEASE, STAGE 3 (MODERAT 10/27/2016 NORI BILLY N Ot R82.99 OTHER ABNORMAL FINDINGS IN URINE 10/27/2016 NORI BILLY N Ot Z45.2 ENCOUNTER FOR ADJUSTMENT AND MANAGEMENT 10/27/2016 NORI BILLY N Ot 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 10/27/2016 NORI BILLY N Ot Z79.899 OTHER FDC (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 10/27/2016 NORI BILLY N Ot Z92.21 PERSONAL HISTORY OF ANTINEOPLASTIC CHEMO 10/28/2016 LOUIS SEPULVEDA MD Ot C18.2 MALIGNANT NEOPLASM OF ASCENDING COLON 10/28/2016 DERICK DAMON, LOUIS Jauregui Ot Z01.818 ENCOUNTER FOR OTHER PREPROCEDURAL EXAMIN 10/29/2016 NORI BILLY N Ot C18.2 MALIGNANT NEOPLASM OF ASCENDING COLON 10/29/2016 NORI BILLY N Ot E03.9 HYPOTHYROIDISM, UNSPECIFIED 10/29/2016 NORI BILLY N Ot 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 10/29/2016 NORI BILLY N Ot N18.3 CHRONIC KIDNEY DISEASE, STAGE 3 (MODERAT 10/29/2016 NORI BILLY N Ot R82.99 OTHER ABNORMAL FINDINGS IN URINE 10/29/2016 NORI BILLY N Ot Z45.2 ENCOUNTER FOR ADJUSTMENT AND MANAGEMENT 10/29/2016 NORI BILLY N Ot 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 10/29/2016 NORI BILLY N Ot Z79.899 OTHER FDC (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 10/29/2016 NORI BILLY N Ot Z92.21 PERSONAL HISTORY OF ANTINEOPLASTIC CHEMO 11/03/2016 LOUIS SEPULVEDA MD Ot C18.2 MALIGNANT NEOPLASM OF ASCENDING COLON 11/03/2016 LOUSI SEPULVEDA MD Ot E11.9 TYPE 2 DIABETES MELLITUS WITHOUT COMPLIC 11/03/2016 LOUIS SEPULVEDA MD Ot Z11.2 ENCOUNTER FOR SCREENING FOR OTHER BACTER 11/04/2016 LOUIS SEPULVEDA MD Ot C18.2 MALIGNANT NEOPLASM OF ASCENDING COLON 11/04/2016 LOUIS SEPULVEDA MD, Ot E11.9 TYPE 2 DIABETES MELLITUS WITHOUT COMPLIC 11/04/2016 LOUIS SEPULVEDA MD, Ot Z11.2 ENCOUNTER FOR SCREENING FOR OTHER BACTER 11/25/2016 ROSEANNE GARRISON AUTOMOBILE INSURANCE CLAIM EXAMINER Ot 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 12/05/2016 ROSEANNE GARRISON AUTOMOBILE INSURANCE CLAIM EXAMINER Ot R92.8 OTH ABN AND INCONCLUSIVE FINDINGS ON DX 12/23/2016 ROSEANNE GARRISON AUTOMOBILE INSURANCE CLAIM EXAMINER Ot R92.8 OTH ABN AND INCONCLUSIVE FINDINGS [...] UNSPECIFIED LIGAMENT OF RIGHT 02/22/2017 DIA WILLARD MD Ot Z79.4 FDC (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 02/22/2017 DIA WILLARD MD, Ot Z79.82 FDC (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 OF ASPIRIN 02/22/2017 DIA WILLARD [...] RIGHT 02/24/2017 DIA WILLARD MD, Ot 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 02/24/2017 DIA WILLARD MD, Ot Z79.82 FDC (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 OF ASPIRIN 02/24/2017 DIA WILLARD [...] 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 04/20/2017 NORI BILLY Ot N18.3 CHRONIC KIDNEY DISEASE, STAGE 3 (MODERAT 04/20/2017 NORI BILLY Ot R82.99 OTHER ABNORMAL FINDINGS IN URINE 04/20/2017 NORI BILLY Ot Z79.4 FDC (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 04/20/2017 NORI BILLY Ot Z79.899 OTHER FDC (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 04/20/2017 NORI BILLY Ot Z92.21 PERSONAL HISTORY OF ANTINEOPLASTIC CHEMO 04/22/2017 MARIAJOSE, BOBAN N Ot C18.2 MALIGNANT NEOPLASM OF ASCENDING COLON 04/22/2017 MARIAJOSENORI N Ot E03.9 HYPOTHYROIDISM, UNSPECIFIED 04/22/2017 MARIAJOSESHANNAAN N Ot 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 04/22/2017 MARIAJOSENORI N Ot N18.3 CHRONIC KIDNEY DISEASE, STAGE 3 (MODERAT 04/22/2017 MARIAJOSE BOBAN N Ot R82.99 OTHER ABNORMAL FINDINGS IN URINE 04/22/2017 NORI BILLY N Ot Z79.4 FDC (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 04/22/2017 MARIAJOSE BOBAN N Ot 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 04/22/2017 MARIAJOSE, BOBAN N Ot Z92.21 PERSONAL HISTORY OF ANTINEOPLASTIC CHEMO 04/23/2017 MARIAJOSENORI N Ot C18.2 MALIGNANT NEOPLASM OF ASCENDING COLON 04/23/2017 MARIAJOSENORI AGUILAR N Ot D64.9 ANEMIA, UNSPECIFIED 04/23/2017 MARIAJOSE BOBOMARI N Ot E03.9 HYPOTHYROIDISM, UNSPECIFIED 04/23/2017 MARIAJOSE, BOBAN N Ot 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 04/23/2017 MARIAJOSE BOBOMARI N Ot N18.3 CHRONIC KIDNEY DISEASE, STAGE 3 (MODERAT 04/23/2017 MARIAJOSE BOBAN N Ot R82.99 OTHER ABNORMAL FINDINGS IN URINE 04/23/2017 NORI BILLY N Ot 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 04/23/2017 MARIAJOSENORI N Ot 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 04/23/2017 MARIAJOSE BOBOMARI N Ot Z92.21 PERSONAL HISTORY OF ANTINEOPLASTIC CHEMO 04/28/2017 MARIAJOSE BOBOMARI N Ot C18.2 MALIGNANT NEOPLASM OF ASCENDING COLON 04/28/2017 MARIAJOSE BOBAN N Ot D64.9 ANEMIA, UNSPECIFIED 04/28/2017 MARIAJOSE BOBAN N Ot E03.9 HYPOTHYROIDISM, UNSPECIFIED 04/28/2017 MARIAJOSE, BOBAN N Ot 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 04/28/2017 MARIAJOSENORI N Ot N18.3 CHRONIC KIDNEY DISEASE, STAGE 3 (MODERAT 04/28/2017 MARIAJOSE BOBAN N Ot R82.99 OTHER ABNORMAL FINDINGS IN URINE 04/28/2017 NORI BILLY N Ot Z79.4 FDC (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 04/28/2017 NORI BILLY N Ot 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 04/28/2017 NORI BILLY N Ot Z92.21 PERSONAL HISTORY OF ANTINEOPLASTIC CHEMO 04/30/2017 NORI BILLY N Ot C18.2 MALIGNANT NEOPLASM OF ASCENDING COLON 04/30/2017 NORI BILLY N Ot D64.9 ANEMIA, UNSPECIFIED 04/30/2017 NORI BILLY N Ot E03.9 HYPOTHYROIDISM, UNSPECIFIED 04/30/2017 NORI BILLY N Ot 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 04/30/2017 NORI BILLY N Ot N18.3 CHRONIC KIDNEY DISEASE, STAGE 3 (MODERAT 04/30/2017 NORI BILLY N Ot R82.99 OTHER ABNORMAL FINDINGS IN URINE 04/30/2017 NORI BILLY N Ot Z79.4 FDC (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 04/30/2017 NORI BILLY N Ot Z79.899 OTHER FDC (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 04/30/2017 NORI BILLY Ot Z92.21 PERSONAL HISTORY OF ANTINEOPLASTIC CHEMO 06/23/2017 CLARENCE LEAL MD Ot E03.9 HYPOTHYROIDISM, UNSPECIFIED 06/23/2017 CLARENCE LEAL MD Ot E11.649 TYPE 2 DIABETES MELLITUS WITH HYPOGLYCEM 06/23/2017 CLARENCE LEAL MD Ot M19.90 UNSPECIFIED OSTEOARTHRITIS, UNSPECIFIED 06/23/2017 CLARENCE LEAL MD Ot Z79.4 FDC (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 06/23/2017 CLARENCE LEAL MD Ot Z79.82 FDC (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 OF ASPIRIN 06/23/2017 CLARENCE LEAL MD Ot Z82.49 FAMILY HX OF ISCHEM HEART DIS AND OTH DI 06/23/2017 CLARENCE LEAL MD Ot Z85.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 O 06/23/2017 CLARENCE LEAL MD Ot Z87.19 PERSONAL HISTORY OF OTHER DISEASES OF TH 06/23/2017 CLARENCE LEAL MD Ot Z90.89 ACQUIRED ABSENCE OF OTHER ORGANS 09/15/2017 ROSEANNE GARRISON APRN Ot M79.662 PAIN IN LEFT LOWER LEG 09/16/2017 ROSEANNE GARRISON AUTOMOBILE INSURANCE CLAIM EXAMINER Ot M79.662 PAIN IN LEFT LOWER LEG 10/12/2017 ROSEANNE GARRISON AUTOM[employer]BILE INSURANCE CLAIM EXAMINER Ot M79.662 PAIN IN LEFT LOWER LEG 11/30/2017 TOMMYCHINO Shania MECHANIC MARINE ENGINE Ot M51.36 OTHER INTERVERTEBRAL DISC DEGENERATION, 11/30/2017 SANDERSCHINO Shania MECHANIC MARINE ENGINE Ot M79.605 PAIN IN LEFT LEG 12/05/2017 CHINO SANDERS MECHANIC MARINE ENGINE Ot M51.36 OTHER INTERVERTEBRAL DISC DEGENERATION, 12/05/2017 SANDERSCHINO Shania MECHANIC MARINE ENGINE Ot M79.605 PAIN IN LEFT LEG 12/14/2017 MARIAJOSE, BOBAN N Ot C18.2 MALIGNANT NEOPLASM OF ASCENDING COLON 12/14/2017 MARIAJOSE, BOBAN N Ot D64.9 ANEMIA, UNSPECIFIED 12/14/2017 MARIAJOSE BOBAN N Ot E03.9 HYPOTHYROIDISM, UNSPECIFIED 12/14/2017 MARIAJOSE, BOBAN N Ot 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 12/14/2017 MARIAJOSE, BOBAN N Ot N18.3 CHRONIC KIDNEY DISEASE, STAGE 3 (MODERAT 12/14/2017 MARIAJOSE, BOBAN N Ot R82.99 OTHER ABNORMAL FINDINGS IN URINE 12/14/2017 MARIAJOSE, BOBAN N Ot 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 12/14/2017 MARIAJOSE BOBAN N Ot Z79.899 OTHER FDC (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 12/14/2017 MARIAJOSE, BOBAN N Ot Z92.21 PERSONAL HISTORY OF ANTINEOPLASTIC CHEMO 12/22/2017 CHINO SANDERS MECHANIC MARINE ENGINE Ot M51.36 OTHER INTERVERTEBRAL DISC DEGENERATION, 12/22/2017 KENNY SANDERSHANYAZMIN Jauregui MECHANIC MARINE ENGINE Ot M79.605 PAIN IN LEFT LEG 01/04/2018 MARIAJOSE, BOBAN N Ot C18.2 MALIGNANT NEOPLASM OF ASCENDING COLON 01/04/2018 MARIAJOSE BOBAN N Ot D64.9 ANEMIA, UNSPECIFIED 01/04/2018 MARIAJOSE, BOBAN N Ot E03.9 HYPOTHYROIDISM, UNSPECIFIED 01/04/2018 MARIAJOSE, BOBAN N Ot 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 01/04/2018 MARIAJOSE BOBAN N Ot N18.3 CHRONIC KIDNEY DISEASE, STAGE 3 (MODERAT 01/04/2018 NORI BILLY N Ot R82.99 OTHER ABNORMAL FINDINGS IN URINE 01/04/2018 NORI BILLY N Ot Z79.4 FDC (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 01/04/2018 NORI BILLY N Ot Z79.899 OTHER FDC (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 01/04/2018 NORI BILLY N Ot Z92.21 PERSONAL HISTORY OF ANTINEOPLASTIC CHEMO 01/04/2018 CHINO SANDERS MECHANIC MARINE ENGINE Ot M43.16 SPONDYLOLISTHESIS, LUMBAR REGION 01/04/2018 CHINO SANDERS MECHANIC MARINE ENGINE Ot 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, 01/04/2018 CHINO SANDERS MECHANIC MARINE ENGINE Ot M99.73 CONN TISS AND DISC STENOS OF INTVRT FORA 01/05/2018 NORI BILLY N Ot C18.2 MALIGNANT NEOPLASM OF ASCENDING COLON 01/05/2018 NORI BILLY N Ot D64.9 ANEMIA, UNSPECIFIED 01/05/2018 NORI BILLY N Ot E03.9 HYPOTHYROIDISM, UNSPECIFIED 01/05/2018 NORI BILLY N Ot 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 01/05/2018 NORI BILYL N Ot N18.3 CHRONIC KIDNEY DISEASE, STAGE 3 (MODERAT 01/05/2018 NORI BILLY N Ot R82.99 OTHER ABNORMAL FINDINGS IN URINE 01/05/2018 NORI BILLY N Ot Z79.4 FDC (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 01/05/2018 NORI BILLY N Ot 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 01/05/2018 NORI BILLY N Ot Z92.21 PERSONAL HISTORY OF ANTINEOPLASTIC CHEMO 01/09/2018 CHINO SANDERS MECHANIC MARINE ENGINE Ot M43.16 SPONDYLOLISTHESIS, LUMBAR REGION 01/09/2018 CHINO SANDERS MECHANIC MARINE ENGINE Ot 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, 01/09/2018 CHINO SANDERS MECHANIC MARINE ENGINE Ot M99.73 CONN TISS AND DISC STENOS OF INTVRT FORA 02/02/2018 CHINO SANDERS MECHANIC MARINE ENGINE Ot M43.16 SPONDYLOLISTHESIS, LUMBAR REGION 02/02/2018 CHINO SANDERS MECHANIC MARINE ENGINE Ot 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, 02/02/2018 CHINO SANDERS Ot M99.73 CONN TISS AND DISC STENOS OF INTT FORA 04/06/2018 EFFIE CALDERON MD Ot C18.2 MALIGNANT NEOPLASM OF ASCENDING COLON 04/06/2018 EFFIE CALDERON MD, Ot D64.9 ANEMIA, UNSPECIFIED 04/06/2018 EFFIE CALDERON MD Ot E03.9 HYPOTHYROIDISM, UNSPECIFIED 04/06/2018 EFFIE CALDERON MD Ot 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 04/06/2018 EFFIE CALDERON MD Ot N18.3 CHRONIC KIDNEY DISEASE, STAGE 3 (MODERAT 04/06/2018 EFFIE CALDERON MD Ot R82.99 OTHER ABNORMAL FINDINGS IN URINE 04/06/2018 EFFIE CALDERON MD Ot 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 04/06/2018 EFFIE CALDERON MD Ot Z79.899 OTHER FDC (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 04/06/2018 EFFIE CALDERON MD Ot Z92.21 PERSONAL HISTORY OF ANTINEOPLASTIC CHEMO 04/07/2018 EFFIE CALDERON MD Ot C18.2 MALIGNANT NEOPLASM OF ASCENDING COLON 04/07/2018 EFFIE CALDERON MD Ot D64.9 ANEMIA, UNSPECIFIED 04/07/2018 EFFIE CALDERON MD Ot E03.9 HYPOTHYROIDISM, UNSPECIFIED 04/07/2018 EFFIE CALDERON MD Ot 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 04/07/2018 EFFIE CALDERON MD Ot N18.3 CHRONIC KIDNEY DISEASE, STAGE 3 (MODERAT 04/07/2018 EFFIE CALDERON MD Ot R82.99 OTHER ABNORMAL FINDINGS IN URINE 04/07/2018 EFFIE CALDERON MD Ot Z79.4 FDC (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 04/07/2018 EFFIE CALDERON MD Ot 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 04/07/2018 EFFIE CALDERON MD Ot Z92.21 PERSONAL HISTORY OF ANTINEOPLASTIC CHEMO 04/23/2018 EFFIE CALDERON MD Ot C18.2 MALIGNANT NEOPLASM OF ASCENDING COLON 04/23/2018 EFFIE CALDERON MD, Ot D64.9 ANEMIA, UNSPECIFIED 04/23/2018 EFFIE CALDERON MD Ot E03.9 HYPOTHYROIDISM, UNSPECIFIED 04/23/2018 EFFIE CALDERON MD Ot 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 04/23/2018 EFFIE CALDERON MD Ot N18.3 CHRONIC KIDNEY DISEASE, STAGE 3 (MODERAT 04/23/2018 EFFIE CALDERON MD Ot R82.99 OTHER ABNORMAL FINDINGS IN URINE 04/23/2018 EFFIE CALDERON MD Ot 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 04/23/2018 EFFIE CALDERON MD Ot Z79.899 OTHER FDC (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 04/23/2018 EFFIE CALDERON MD Ot Z92.21 PERSONAL HISTORY OF ANTINEOPLASTIC CHEMO 04/25/2018 EFFIE CALDERON MD Ot C18.2 MALIGNANT NEOPLASM OF ASCENDING COLON 04/25/2018 EFFIE CALDERON MD Ot D64.9 ANEMIA, UNSPECIFIED 04/25/2018 EFFIE CALDERON MD Ot E03.9 HYPOTHYROIDISM, UNSPECIFIED 04/25/2018 EFFIE CALDERON MD Ot 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 04/25/2018 EFFIE CALDERON MD Ot N18.3 CHRONIC KIDNEY DISEASE, STAGE 3 (MODERAT 04/25/2018 EFFIE CALDERON MD Ot R82.99 OTHER ABNORMAL FINDINGS IN URINE 04/25/2018 EFFIE CALDERON MD Ot Z79.4 FDC (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 04/25/2018 EFFIE CALDERON MD Ot Z79.899 OTHER FDC (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 04/25/2018 EFFIE CALDERON MD Ot Z92.21 PERSONAL HISTORY OF ANTINEOPLASTIC CHEMO 06/17/2018 BRUNO JACKSON MD Ot E03.9 HYPOTHYROIDISM, UNSPECIFIED 06/17/2018 BRUNO JACKSON MD Ot E11.9 TYPE 2 DIABETES MELLITUS WITHOUT COMPLIC 06/17/2018 BRUON JACKSON MD Ot I10 ESSENTIAL (PRIMARY) HYPERTENSION 06/17/2018 BRUNO JACKSON MD Ot M47.816 SPONDYLOSIS W/O MYELOPATHY OR RADICULOPA 06/17/2018 BRUNO JACKSON MD Ot M53.3 SACROCOCCYGEAL DISORDERS, NOT ELSEWHERE 06/17/2018 BRUNO JACKSON MD Ot M54.5 LOW BACK PAIN 06/17/2018 BRUNO JACKSON MD Ot Z79.4 FDC (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 06/17/2018 BRUNO JACKSON MD Ot Z79.82 EAR MACHINE OPERATOR (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 OF ASPIRIN 06/17/2018 BRUNO JACKSON MD Ot Z82.49 FAMILY HX OF ISCHEM HEART DIS AND OTH DI 06/17/2018 BRUNO JACKSON MD Ot Z85.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 O 06/17/2018 BRUNO JACKSON MD Ot Z90.89 ACQUIRED ABSENCE OF OTHER ORGANS 06/17/2018 BRUNO JACKSON MD Ot Z98.890 OTHER SPECIFIED POSTPROCEDURAL STATES 06/20/2018 BRUNO JACKSON MD Ot E03.9 HYPOTHYROIDISM, UNSPECIFIED 06/20/2018 BRUNO JACKSON MD Ot E11.9 TYPE 2 DIABETES MELLITUS WITHOUT COMPLIC 06/20/2018 BRUNO JACKSON MD Ot I10 ESSENTIAL (PRIMARY) HYPERTENSION 06/20/2018 BRUNO JACKSON MD Ot M47.816 SPONDYLOSIS W/O MYELOPATHY OR RADICULOPA 06/20/2018 BRUNO JACKSON MD Ot M53.3 SACROCOCCYGEAL DISORDERS, NOT ELSEWHERE 06/20/2018 BRUNO JACKSON MD Ot M54.5 LOW BACK PAIN 06/20/2018 BRUNO JACKSON MD Ot 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 06/20/2018 BRUNO JACKSON MD Ot Z79.82 FDC (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 OF ASPIRIN 06/20/2018 BRUNO JACKSON MD Ot Z82.49 FAMILY HX OF ISCHEM HEART DIS AND OTH DI 06/20/2018 BRUNO JACKSON MD Ot Z85.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 O 06/20/2018 BRUNO JACKSON MD Ot Z90.89 ACQUIRED ABSENCE OF OTHER ORGANS 06/20/2018 BRUNO JACKOSN MD Ot Z98.890 OTHER SPECIFIED POSTPROCEDURAL STATES 01/03/2019 EFFIE CALDERON MD Ot C18.2 MALIGNANT NEOPLASM OF ASCENDING COLON 01/03/2019 EFFIE CALDERON MD Ot D64.9 ANEMIA, UNSPECIFIED 01/03/2019 EFFIE CALDERON MD Ot E03.9 HYPOTHYROIDISM, UNSPECIFIED 01/03/2019 EFFIE CALDERON MD Ot 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 01/03/2019 EFFIE CALDERON MD Ot N18.3 CHRONIC KIDNEY DISEASE, STAGE 3 (MODERAT 01/03/2019 EFFIE CALDERON MD Ot Z79.4 FDC (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 01/03/2019 EFFIE CALDERON MD Ot Z79.899 OTHER FDC (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 01/03/2019 EFFIE CALDERON MD Ot Z92.21 PERSONAL HISTORY OF ANTINEOPLASTIC CHEMO 01/04/2019 EFFIE CALDERON MD Ot C18.2 MALIGNANT NEOPLASM OF ASCENDING COLON 01/04/2019 EFFIE CALDERON MD Ot D64.9 ANEMIA, UNSPECIFIED 01/04/2019 EFFIE CALDERON MD Ot E03.9 HYPOTHYROIDISM, UNSPECIFIED 01/04/2019 EFFIE CALDERON MD Ot 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 Results Test Result Range Bacterial urine culture - 07/29/16 12:05 URINE CULTURE RESULTS <10,000/ML NR Capillary blood glucose measurement by glucometer (mass/volume) - 11/03/16 06:11 Capillary blood glucose measurement by glucometer (mass/volume) 131 mg/dL 70-110 Methicillin resistant Staphylococcus aureus (MRSA) screening culture - 11/03/16 06:30 Methicillin resistant Staphylococcus aureus (MRSA) screening culture NEG [facility] Complete blood count (CBC) with automated white [...] Automated erythrocyte mean corpuscular hemoglobin concentration measurement (mass/volume) 33 g/dL 32-36 Automated erythrocyte distribution width ratio 13.6 % 10.0- 14.5 Automated blood platelet count (count/volume) 150 10*3/uL [...] Blood monocytes automated count (number/volume) 0.6 10*3 0.0- 1.0 Automated eosinophil count 0.2 10*3/uL 0.0-0.3 Automated [...] Serum or plasma aspartate aminotransferase measurement (enzymatic activity/volume) 33 U/L 5-34 Serum or plasma alanine aminotransferase measurement (enzymatic activity/volume) 19 U/L 0-55 Serum or plasma protein measurement (mass/volume) 6.5 g/dL 6.4-8.2 Serum or plasma albumin measurement (mass/volume) 3.5 g/dL 3.2-4.5 Serum or plasma lithium measurement (moles/volume) - 06/23/17 17:40 BNP level 79.2 pg/mL <100.0 Capillary blood glucose measurement by glucometer (mass/volume) - 06/23/17 17:50 Capillary blood glucose measurement by glucometer (mass/volume) 165 mg/dL 70-110 Complete urinalysis with reflex to culture - 06/23/17 19:40 Urine color determination YELLOW NRG Urine clarity determination CLEAR NRG Urine pH measurement by test strip 6 5-9 Specific gravity of urine by test strip 1.010 1.016-1.022 Urine protein assay by test strip, semi-quantitative [...] sediment leukocyte count by microscopy (number/high power field) [HPF] NRG Bacteria detection in urine sediment by light microscopy NONE NRG Squamous epithelial cells detection in urine sediment by light microscopy 2-5 NRG Crystals detection in urine sediment by light microscopy NONE NRG Casts detection in urine sediment by light microscopy NONE NRG Mucus detection in urine sediment by light microscopy NEGATIVE NRG Complete urinalysis with reflex to culture NO NRG Complete urinalysis with reflex to culture - 06/17/18 10:31 Urine color determination YELLOW NRG Urine clarity determination SLIGHTLY CLOUDY NRG Urine pH measurement by test strip 5 5-9 Specific gravity of urine by test strip 1.020 1.016-1.022 Urine protein assay by test strip, semi-quantitative 3+ NEGATIVE Urine glucose detection by automated test strip NEGATIVE NEGATIVE Erythrocytes detection in urine sediment by light microscopy 1+ NEGATIVE Urine ketones detection by automated test [...] sediment leukocyte count by microscopy (number/high power field) NONE NRG Bacteria detection in urine sediment by light microscopy MODERATE NRG Squamous epithelial cells detection in urine sediment by light microscopy 25-50 NRG Crystals detection in urine sediment by light microscopy NONE NRG Casts detection in urine sediment by light microscopy NONE NRG Mucus detection in urine sediment by light microscopy SMALL NRG Complete urinalysis with reflex to culture NO NRG Encounters ACCT No. Visit Date/Time Discharge Status Pt. Type Provider Facility Loc./Unit Complaint [id number] 01/16/2019 05:33:00 01/16/2019 15:05:00 DIS Outpatient SAVANNAH MATHEWS DO [facility] PREOP COLONOSCOPY [id number] 01/04/2019 00:11:00 01/04/2019 23:59:59 CLS Preadmit EFFIE CALDERON MD [facility] ONC [id number] 10/05/2018 11:00:00 01/03/2019 00:01:00 DIS Outpatient EFFIE CALDERON MD [facility] ONC [id number] 06/17/2018 10:11:00 06/17/2018 12:33:00 DIS Emergency BRUNO JACKSON MD [facility] ER R SIDE BACK PAIN [id number] 04/06/2018 10:34:00 04/23/2018 00:01:00 DIS Outpatient EFFIE CALDERON MD [facility] ONC [id number] 11/09/2017 09:52:00 01/04/2018 00:01:00 DIS Outpatient NORI BILLY [facility] ONC [id number] 01/03/2018 13:58:00 01/03/2018 23:59:59 CLS Outpatient [employer] [facility] RAD LOW BACK PAIN AND LEFT LEG PAIN [id number] 11/29/2017 14:59:00 11/29/2017 23:59:59 CLS Outpatient [employer] [facility] RAD LOW BACK PAIN, L LEG PAIN [id number] 09/15/2017 11:09:00 09/15/2017 23:59:59 CLS Outpatient ROSEANNE GARRISON APRN [facility] RAD LEFT CALF PAIN [id number] 06/23/2017 17:38:00 06/23/2017 20:33:00 DIS Emergency MEL DAMON, CLARENCE Hall [facility] ER FALL [id number] 04/21/2017 10:21:00 04/23/2017 00:01:00 DIS Outpatient NORI BILLY [facility] ONC [id number] 02/22/2017 14:16:00 02/22/2017 16:45:00 DIS Emergency MONTSE DAMON, DIA Chavez [facility] ER FALL,RT ANKLE AND KNEE INJ [id number] 11/29/2016 09:27:00 11/29/2016 23:59:59 CLS Outpatient ROSEANNE GARRISON APRN [facility] RAD RT BREAST ASYMMETRY [id number] 11/03/2016 05:56:00 11/03/2016 10:59:00 DIS Outpatient LOUIS SEPULVEDA MD [facility] SDC HISTORY COLON CANCER [id number] 11/01/2016 13:30:00 11/01/2016 13:30:00 CAN Preadmit LOUIS SEPULVEDA MD [facility] PREOP SCREENING [id number] 10/29/2016 13:30:00 10/29/2016 23:59:59 CLS Outpatient ROSEANNE GARRISON APRN [facility] RAD SCREENING [id number] 10/27/2016 05:33:00 10/27/2016 11:55:00 DIS Outpatient LOUIS SEPULVEDA MD [facility] PREOP PORT REMOVAL [id number] 10/21/2016 09:39:00 10/27/2016 00:01:00 DIS Outpatient NORI BILLY N [facility] ONC [id number] 06/10/2016 09:20:00 07/28/2016 00:01:00 DIS Outpatient NORI BILLY N [facility] ONC [id number] 03/18/2016 08:39:00 04/26/2016 11:06:00 DIS Outpatient NORI BILLY N [facility] ONC [id number] 02/05/2016 13:06:00 02/05/2016 23:59:59 CLS Outpatient ROSEANNE GARRISON APRN [facility] LAB [id number] 12/24/2015 09:18:00 12/31/2015 00:01:00 DIS Outpatient NORI BILLY Donell [facility] ONC [id number] 11/13/2015 10:50:00 11/13/2015 23:59:59 CLS Outpatient JASMIN VEGA [facility] ONC [id number] 10/31/2015 10:01:00 10/31/2015 23:59:59 CLS Outpatient [employer] MARINE ENGINE [facility] RAD [id number] 10/27/2015 09:20:00 10/27/2015 12:40:00 DIS Outpatient LOUIS SEPULVEDA MD [facility] [id number] 07/09/2015 10:19:00 07/09/2015 23:59:59 CLS Outpatient NORI BILLY Donell [facility] ONC [id number] 04/15/2015 08:30:00 04/23/2015 00:01:00 DIS Outpatient MARIAJOSENORI Donell [facility] ONC [id number] 03/04/2015 12:59:00 03/04/2015 23:59:59 CLS Outpatient JASMIN VEGAP [facility] ONC [id number] 01/02/2015 09:01:00 02/12/2015 00:01:00 DIS Outpatient NORI BILLY [facility] ONC [id number] 09/24/2014 09:54:00 11/12/2014 00:01:00 DIS Outpatient NORI BILLY [facility] ONC [id number] 09/09/2014 08:49:00 09/09/2014 23:59:59 CLS Outpatient LOUIS SEPULVEDA MD [facility] SDC [id number] 09/05/2014 06:12:00 09/05/2014 23:59:59 CLS Outpatient LOUIS SEPULVEDA MD [facility] PREOP [id number] 08/23/2014 09:45:00 08/23/2014 23:59:59 CLS Outpatient JASMIN VEGA MECHANIC MARINE ENGINE [facility] ONC [id number] 08/06/2014 14:30:00 08/06/2014 23:59:59 CLS Outpatient DESIREE HAMM MD [facility] RAD [id number] 07/08/2014 09:52:00 07/09/2014 00:01:00 DIS Outpatient NORI BILLY [facility] ONC [id number] 06/06/2014 08:20:00 06/06/2014 23:59:59 CLS Outpatient DESIREE HAMM MD [facility] RAD [id number] 05/21/2014 08:29:00 05/21/2014 23:59:59 CLS Outpatient JASMIN VEGA MECHANIC MARINE ENGINE [facility] RAD [id number] 04/17/2014 09:40:00 04/17/2014 23:59:59 CLS Outpatient JASMIN VEGA S MECHANIC MARINE ENGINE [facility] ONC [id number] 04/03/2014 08:23:00 04/09/2014 00:01:00 DIS Outpatient NORI BILLY [facility] ONC [id number] 03/21/2014 10:34:00 03/21/2014 23:59:59 CLS Outpatient JASMIN VEGA S MECHANIC MARINE ENGINE [facility] ONC [id number] 03/06/2014 08:41:00 03/06/2014 23:59:59 CLS Outpatient DESIREE HAMM MD [facility] LAB [id number] 02/27/2014 09:12:00 02/27/2014 23:59:59 CLS Outpatient JASIMN VEGA S MECHANIC MARINE ENGINE [facility] ONC [id number] 02/06/2014 10:25:00 02/06/2014 23:59:59 CLS Outpatient JASMIN VEGA S MECHANIC MARINE ENGINE [facility] ONC [id number] 12/12/2013 13:24:00 01/02/2014 00:01:00 DIS Outpatient NORI BILLY [facility] ONC [id number] 12/05/2013 10:40:00 12/05/2013 23:59:59 CLS Outpatient JASMIN VEGA MECHANIC MARINE ENGINE [facility] ONC [id number] 11/14/2013 10:19:00 11/14/2013 23:59:59 CLS Outpatient DESIREE HAMM MD [facility] LAB [id number] 10/24/2013 09:53:00 10/24/2013 23:59:59 CLS Outpatient JASMIN VEGA MECHANIC MARINE ENGINE [facility] ONC [id number] 10/12/2013 06:38:00 10/12/2013 13:00:00 DIS Outpatient LOUIS SEUPLVEDA MD [facility] SDC [id number] 10/10/2013 07:23:00 10/10/2013 23:59:59 CLS Outpatient LOUIS SEPULVEDA MD [facility] PREOP [id number] 10/09/2013 05:49:00 10/09/2013 23:59:59 CLS Outpatient NORI BILLY [facility] RAD [id number] 10/02/2013 09:57:00 10/02/2013 23:59:59 CLS Outpatient NORI BILLY [facility] RAD [id number] 09/12/2013 05:51:00 09/18/2013 18:00:00 DIS Inpatient LOUIS SEPULVEDA MD [facility] SURGICAL [id number] 09/10/2013 07:18:00 09/10/2013 10:25:00 DIS Outpatient LOUIS SEPULVEDA MD [facility] [id number] 09/07/2013 12:55:00 09/07/2013 23:59:59 CLS Outpatient LOUIS SEPULVEDA MD [facility] PREOP [id number] 09/06/2013 08:19:00 09/06/2013 23:59:59 CLS Outpatient NOELLE SIMS MD [facility] RAD [id number] 09/04/2013 08:54:00 09/04/2013 13:35:00 DIS Outpatient NOELLE SIMS MD [facility] [id number] 08/31/2013 08:00:00 08/31/2013 11:15:00 DIS Outpatient NOELLE SIMS MD [facility] [id number] 04/19/2013 10:47:00 04/19/2013 23:59:59 CLS Outpatient DESIREE HAMM MD [facility] RAD SCREENING [id number] 01/23/2019 09:00:00 PEN Preadmit SAVANNAH MATHEWS DO [facility] ENDO SCREENING/HX COLON CA [id number] 10/23/2015 05:40:00 Document Registration [id number] 08/21/2015 10:35:00 Document Registration [id number] 02/24/2012 13:57:00 Document Registration [id number] 12/24/2010 11:37:00 Document Registration [id number] 08/07/2010 09:30:00 Document Registration [id number] 06/02/2017 11:05:45 06/02/2017 23:59:59 CLS Outpatient [id number] 04/15/2015 08:30:25 ACT Document Registration
--- NOTE | 2019-01-23 10:36 | Anesthesia-General Post-Op ---
MAC Patient Condition Mental Status/LOC: Same as Preop Cardiovascular: Satisfactory Nausea/Vomiting: Absent Respiratory: Satisfactory Pain: Controlled Complications: Absent Post Op Complications Complications None Follow Up Care/Instructions Patient Instructions None needed. Anesthesiology Discharge Order Discharge Order Patient is doing well, no complaints, stable vital signs, no apparent adverse anesthesia problems. No complications reported per nursing. LISA DUNCAN CRNA Jan 23, 2019 10:36
--- NOTE | 2019-01-23 14:36 | OPERATIVE REPORT ---
DATE OF SERVICE: PREOPERATIVE DIAGNOSIS: History of colon cancer. POSTOPERATIVE DIAGNOSIS: Colon polyps. PROCEDURE: Colonoscopy with hot biopsy polypectomy x3. SURGEON: Savannah Robles DO ANESTHESIA: Per [employer] SUPERVISOR. ESTIMATED BLOOD LOSS: None. COMPLICATIONS: None. INDICATIONS: The patient is an 83-year-old female with history of colon cancer. She was recommended to have a repeat colonoscopy at this time by her previous provider. She understands risks and benefits of procedure and wished to proceed with procedure. Consent was signed on the chart. DESCRIPTION OF PROCEDURE: The patient was taken to the endoscopy suite, placed in left lower recumbent position. Timeout was performed. Digital rectal exam was performed. No palpable polyps, masses or ulcerations. Some slight hemorrhoidal disease. Scope was inserted in the rectum and advanced all the way to the ileocolonic anastomosis. This had normal appearance. Prep was adequate. Scope was then slowly retracted back in the ascending portion near the ileocolonic anastomosis. Small polyp was present, which hot biopsy polypectomy was performed. Scope was continuously retracted back. At the hepatic flexure, another small polyp was present, which hot biopsy polypectomy was performed. There are no other polyps, masses or ulcerations. Scope was continued to be retracted back to the transverse colon and into the descending colon where another small polyp was present, which hot biopsy polypectomy was performed. Scope was then slowly retracted back down to the sigmoid and into the rectum with not visualizing any polyps, masses or ulcerations. The scope was retroflexed noting no other pathology. Scope was returned to its normal position, slowly withdrawn until completely removed. The patient tolerated procedure well without any complications. She was taken to recovery room in stable condition. RECOMMENDATIONS: The patient will need repeat colonoscopy in approximately 3 years. Any issues before, then will be seen at that time. The patient will follow up in 2 weeks to discuss pathology results and see how she is doing. Job ID: [id number] DocumentID: [id number] Dictated Date: 01/23/2019 08:44:39 Seals Engraver Date: 01/23/2019 14:35:27 Dictated By: SAVANNAH ROBLES DO
== END 2019-01-23 09:30 | disposition home or self-care (01) ==
LOC: ENDO 06:53
PROVIDERS: ATTEND Surgery
DX: Z12.11 Encounter for screening for malignant neoplasm of colon (principal); D12.2 Benign neoplasm of ascending colon; D12.3 Benign neoplasm of transverse colon; D12.4 Benign neoplasm of descending colon; Z85.038 Personal history of other malignant neoplasm of large intestine; I10 Essential (primary) hypertension; E11.9 Type 2 diabetes mellitus without complications; E03.9 Hypothyroidism, unspecified; E53.9 Vitamin B deficiency, unspecified; E78.5 Hyperlipidemia, unspecified; M19.91 Primary osteoarthritis, unspecified site; E66.01 Morbid (severe) obesity due to excess calories; Z92.21 Personal history of antineoplastic chemotherapy; Z79.899 Other long term (current) drug therapy; Z79.4 Long term (current) use of insulin; Z79.82 Long term (current) use of aspirin; Z79.02 Long term (current) use of antithrombotics/antiplatelets; Z68.41 Body mass index [BMI] 40.0-44.9, adult
CPT/HCPCS: 88305

== ENCOUNTER → 2019-04-05 | Outpatient (CLI) | payer MEDICARE ==
[2019-04-05 11:22] LABS: BASOPHILS % (AUTO) 0 % (0-10); EOSINOPHILS # (AUTO) 0.2 10^3/uL (0.0-0.3); EOSINOPHILS % (AUTO) 3 % (0-10); HEMATOCRIT 37 % (35-52); HEMOGLOBIN 11.9 G/DL (11.5-16.0); LYMPHOCYTES # (AUTO) 2.6 X 10^3 (1.0-4.0); LYMPHOCYTES % (AUTO) 42 % (12-44); MEAN CORPUSCULAR HEMOGLOBIN 29 PG (25-34); MEAN CORPUSCULAR HGB CONC 32 G/DL (32-36); MEAN CORPUSCULAR VOLUME 89 FL (80-99); MEAN PLATELET VOLUME 10.8 FL (7.4-10.4); MONOCYTES # (AUTO) 0.7 X 10^3 (0.0-1.0); MONOCYTES % (AUTO) 11 % (0-12); NEUTROPHILS # (AUTO) 2.8 X 10^3 (1.8-7.8); NEUTROPHILS % (AUTO) 45 % (42-75); PLATELET COUNT 177 10^3/uL (130-400); RED CELL DISTRIBUTION WIDTH 14.5 % (10.0-14.5); WHITE BLOOD COUNT 6.3 10^3/uL (4.3-11.0)
[2019-04-05 11:46] LABS: ALBUMIN 3.8 GM/DL (3.2-4.5); BILIRUBIN,TOTAL 0.7 MG/DL (0.1-1.0); CALCIUM 9.2 MG/DL (8.5-10.1); CREATININE SERUM 0.97 MG/DL (0.60-1.30); POTASSIUM 3.9 MMOL/L (3.6-5.0); TOTAL PROTEIN 6.8 GM/DL (6.4-8.2)
== END ==
LOC: EDSTATUS 01-04 10:34 → ONC 11:08
PROVIDERS: ATTEND Internal Medicine Hematology & Oncology
DX: C18.2 Malignant neoplasm of ascending colon (principal); D64.9 Anemia, unspecified; E11.22 Type 2 diabetes mellitus with diabetic chronic kidney disease; N18.3 Chronic kidney disease, stage 3 (moderate); E03.9 Hypothyroidism, unspecified; Z79.4 Long term (current) use of insulin; Z79.899 Other long term (current) drug therapy; Z92.21 Personal history of antineoplastic chemotherapy
CPT/HCPCS: 36415; 80053; 82378; 85025; 99213

== ENCOUNTER 2019-09-29 19:40 | Emergency (ER) | payer MEDICARE ==
[~2019-09-29] VITALS: Ht 162 cm; Wt 90.0 kg
[~2019-09-29 19:40] MED LIST changes: -TRAM50TA2 PO; +TRM50T PO
--- NOTE | 2019-09-29 20:16 | ED Lower Extremity ---
General Chief Complaint: Lower Extremity Stated Complaint: R FOOT PN Nursing Triage Note: THE PT IS ASSISTED TO THE ROOM BY WHEELCHAIR. NO DISTRESS IS SEEN ON ARRIVAL. LOC IS NORMAL FOR THE PT. THE PT DROPPED A SKILLET ON HER BIG TOE. Nursing Sepsis Screen: No Definite Risk Source: patient, family Exam Limitations: no limitations History of Present Illness Date Seen by Provider: Sep 29, 2019 Time Seen by Provider: 20:16 Initial Comments 83 yo female patient presents for c/o right great toe pain after dropping a cast iron skillet onto the toe. Location Injury Occurred: home Onset: just prior to arrival Pain/Injury Location: right 1st toe Method of Injury: direct blow Modifying Factors: Improves With Immobilization; Worse With Movement Allergies and Home Medications Allergies Coded Allergies: No Known Drug Allergies (Verified , 01/23/19) Home Medications Aspirin 81 Mg Tablet.dr, 81 MG PO DAILY, (Reported) Carvedilol 12.5 Mg Tablet, 12.5 MG PO BID, (Reported) Docusate Sodium 100 Mg Tablet, 100 MG PO every other day, (Reported) Folic Acid 1 Mg Tablet, 1 MG PO DAILY, (Reported) Insulin Glargine,Hum.rec.anlog 100 Unit/1 Ml Insuln.pen, 28 UNIT SQ HS, (Reported) Insulin NPH Hum/Reg Insulin Hm 100 Unit/1 Ml Insuln.pen, 18 UNIT SQ DAILY, (Reported) Levothyroxine Sodium 100 Mcg Tablet, 100 MCG PO DAILY, (Reported) Losartan Potassium 100 Mg Tablet, 100 MG PO DAILY, (Reported) Terazosin HCl 5 Mg Capsule, 5 MG PO DAILY, (Reported) Patient Home Medication List Home Medication List Reviewed: Yes Review of Systems Constitutional: no symptoms reported Respiratory: no symptoms reported Cardiovascular: no symptoms reported Musculoskeletal: see HPI, joint pain (left great toe pain), joint swelling (left great toe pain) Skin: see HPI Psychiatric/Neurological: Denies Numbness, Denies Paresthesia, Denies Tingling, Denies Weakness All Other Systems Reviewed Negative Unless Noted: Yes (Negative excepted noted.) Past Unqwkdp-Hbqdoy-Lqsklt Hx Past Med/Social Hx: Reviewed Nursing Past Med/Soc Hx Patient Social History Alcohol Use: Denies Use Recreational Drug Use: No 2nd Hand Smoke Exposure: No Recent Foreign Travel: No Contact w/Someone Who Travel: No Recent Infectious Disease Expo: No Recent Hopitalizations: No Physical Abuse: No Sexual Abuse: No Mistreated: No Fear: No Immunizations Up To Date Date of Pneumonia Vaccine: Sep 09, 2009 Date of Influenza Vaccine: Apr 24, 2013 Seasonal Allergies Seasonal Allergies: No Past Medical History Surgeries: Yes (hernia repair, left hand, right hemicolectomy, port placed and removed) Abdominal, Tonsillectomy Respiratory: Yes (gets SOB) Cardiac: Yes Hypertension Neurological: No Reproductive Disorders: No Genitourinary: No Gastrointestinal: Yes (COLON CANCER) Musculoskeletal: Yes Arthritis Endocrine: Yes Diabetes, Insulin dep, Hypothyroidsim HEENT: Yes (cataracts removed, dentures) Cancer: Yes Colon What Type of Treatment Did You: Chemotherapy, Surgical Intervention Psychosocial: No Integumentary: No Blood Disorders: No Family Medical History Reviewed Nursing Family Hx Family history: Cardiovascular disease 03 FATHER 03 MOTHER Family history: Diabetes mellitus 03 MOTHER 09 SISTER Family history: Hypertension 03 FATHER 03 MOTHER Myocardial infarction 03 FATHER 03 MOTHER Stroke 09 SISTER No Family History of: Abdominal aortic aneurysm Cancer Family history: Alzheimer's disease Family history: Arthritis Family history: Asthma Family history: Breast disease Family history: Gastrointestinal disease Family history: Thyroid disorder History of - anemia History of - respiratory disease Psychotic disorder Seizure disorder No Pertinent Family Hx Physical Exam Vital Signs Vital Signs - First Documented 09/29/19 09/29/19 19:45 21:19 Temp 36.6 Pulse 70 Resp 18 B/P (MAP) 183/ Pulse Ox 98 Capillary Refill : Less Than 3 Seconds Height, Weight, BMI Height: 4'11.00" Weight: 200lbs. 0.0oz. 90.753704rg; 34.00 BMI Method:Stated General Appearance: WD/WN, no apparent distress Cardiovascular: normal peripheral pulses, regular rate, rhythm, no murmur Respiratory: lungs clear, normal breath sounds, no respiratory distress, no accessory muscle use Legs: bilateral leg non-tender, bilateral leg normal inspection, bilateral leg normal range of motion, bilateral leg no evidence of injury Knees: bilateral knee non-tender, bilateral knee normal inspection, bilateral knee normal range of motion, bilateral knee no evidence of injury Ankles: bilateral ankle non-tender, bilateral ankle normal inspection, bilateral ankle normal range of motion, bilateral ankle no evidence of injury Feet: left foot non-tender, left foot normal inspection, left foot normal range of motion, left foot no evidence of injury; right foot bone tenderness (first digit), right foot limited range of motion (first digit), right foot nail injury (right great toenail), right foot pain (first toe), right foot soft tissue ten derness (first toe), right foot swelling (first toe), right foot other (proximal nail fold avulsed from the toenail with mild bleeding.) Neurologic/Tendon: normal sensation, normal motor functions, normal tendon functions, responds to pain, no evidence tendon injury Neurologic/Psychiatric: alert, normal mood/affect, oriented x 3 Skin: normal color, warm/dry, other (proximal nail fold avulsed from the toenail with mild bleeding.) Progress/Results/Core Measures Results/Orders My Orders Orders - MARY NORTON Foot, Right, 3 View (09/29/19 20:19) Vital Signs/I&O 09/29/19 09/29/19 19:45 21:19 Temp 36.6 36.8 Pulse 70 59 Resp 18 20 B/P (MAP) 183/ 194/91 Pulse Ox 98 Diagnostic Imaging Diagonstic Imaging: Xray Plain Films/CT/US/NM/MRI: other (foot) Comments Date of Exam:09/29/19 FOOT, RIGHT, 3 VIEW INDICATION: Cast-iron skillet fell on right great toe, pain. FINDINGS: Three views of the right foot demonstrate osteopenia. No fracture is identified. IMPRESSION: There are no acute findings. Dictated by: Dictated on workstation # [id number] Reviewed: Reviewed by Me (radiology report reviewed by me) Departure Communication (Admissions) plain radiographs obtained which were negative for acute findings. plan for dsch to home with f/u as an outpatient with dr. rod. Impression Primary Impression: Contusion of foot Qualified Codes: S90.31XA - Contusion of right foot, initial encounter Additional Impression: Injury of toenail of right foot Qualified Codes: S99.921A - Unspecified injury of right foot, initial encounter Disposition: HOME, SELF-CARE Condition: Improved Departure-Patient Inst. Decision time for Depature: 20:51 Referrals: DC ROD MD (PCP/Family) Primary Care Physician Patient Instructions: Toe Injury Add. Discharge Instructions: All discharge instructions reviewed with patient and/or family. Voiced understanding. Tylenol extra strength kfgp-dax-krfwhuh as directed for pain. Elevate the right foot on pillows. Ice pack for 20 minute intervals as needed for 2-3 days. Shower with antibacterial soap. Cover the great toe nail with a Band-Aid or gauze. Follow-up with your family practitioner for recheck as an outpatient. Return to the emergency department for worsened pain, swelling, redness, drainage, fever, or any other concerns. MARY NORTON Sep 29, 2019 20:16
--- NOTE | 2019-09-29 20:41 | Diagnostic Imaging Report ---
INDICATION: Cast-iron skillet fell on right great toe, pain. FINDINGS: Three views of the right foot demonstrate osteopenia. No fracture is identified. IMPRESSION: There are no acute findings. Dictated by: Dictated on workstation # [id number]
[2019-09-29 21:19] VITALS: BP 194/91
== END 2019-09-29 21:31 | disposition home or self-care (01) ==
LOC: EDUNIT# 19:40 → ER 19:41
DX: S90.31XA Contusion of right foot, initial encounter (principal); S91.201A Unspecified open wound of right great toe with damage to nail, initial encounter; I10 Essential (primary) hypertension; E11.9 Type 2 diabetes mellitus without complications; E03.9 Hypothyroidism, unspecified; Z85.038 Personal history of other malignant neoplasm of large intestine; Z79.82 Long term (current) use of aspirin; Z79.4 Long term (current) use of insulin; Z82.49 Family history of ischemic heart disease and other diseases of the circulatory system; W20.8XXA Other cause of strike by thrown, projected or falling object, initial encounter
CPT/HCPCS: 73630

== ENCOUNTER → 2020-04-02 | Outpatient (CLI) | payer MEDICARE ==
[2020-04-02 11:22] LABS: BASOPHILS % (AUTO) 0 % (0-10); EOSINOPHILS # (AUTO) 0.1 10^3/uL (0.0-0.3); EOSINOPHILS % (AUTO) 1 % (0-10); HEMATOCRIT 38 % (35-52); HEMOGLOBIN 12.3 G/DL (11.5-16.0); LYMPHOCYTES # (AUTO) 2.7 X 10^3 (1.0-4.0); LYMPHOCYTES % (AUTO) 38 % (12-44); MEAN CORPUSCULAR HEMOGLOBIN 29 PG (25-34); MEAN CORPUSCULAR HGB CONC 32 G/DL (32-36); MEAN CORPUSCULAR VOLUME 89 FL (80-99); MONOCYTES # (AUTO) 0.5 X 10^3 (0.0-1.0); MONOCYTES % (AUTO) 7 % (0-12); NEUTROPHILS # (AUTO) 3.9 X 10^3 (1.8-7.8); NEUTROPHILS % (AUTO) 54 % (42-75); PLATELET COUNT 182 10^3/uL (130-400); WHITE BLOOD COUNT 7.1 10^3/uL (4.3-11.0)
[2020-04-02 11:41] LABS: ALBUMIN 3.8 GM/DL (3.2-4.5); BILIRUBIN,TOTAL 0.8 MG/DL (0.1-1.0); CALCIUM 9.2 MG/DL (8.5-10.1); CREATININE SERUM 0.98 MG/DL (0.60-1.30); POTASSIUM 4.3 MMOL/L (3.6-5.0)
== END ==
LOC: ONC 11:03
PROVIDERS: ATTEND Internal Medicine Hematology & Oncology
DX: C18.2 Malignant neoplasm of ascending colon (principal); E11.22 Type 2 diabetes mellitus with diabetic chronic kidney disease; N18.3 Chronic kidney disease, stage 3 (moderate); Z90.49 Acquired absence of other specified parts of digestive tract; Z92.21 Personal history of antineoplastic chemotherapy
CPT/HCPCS: 80053; 82378; 85025; G0463

== ENCOUNTER 2020-10-13 17:04 | Observation (INO) | payer MEDICARE ==
[~2020-10-13] VITALS: Ht 149.8 cm; Wt 97.4 kg
[~2020-10-13 17:04] MED LIST changes: -FOLI1TAB24 PO; +FOLI1TAB33 PO; -TERA5CAP3 PO
[2020-10-13 17:33] LABS: BILIRUBIN,URINE NEGATIVE (NEGATIVE); CLARITY,URINE SL CLOUDY; COLOR,URINE DARK YELLOW; GLUCOSE, URINE (UA) 1+ (NEGATIVE); KETONES,URINE NEGATIVE (NEGATIVE); LEUKOCYTE ESTERASE ,URINE 1+ (NEGATIVE); NITRITE,URINE POSITIVE (NEGATIVE); PROTEIN,URINE 1+ (NEGATIVE)
[2020-10-13 17:37] LABS: BASOPHILS % (AUTO) 0 % (0-10); EOSINOPHILS % (AUTO) 0 % (0-10); HEMATOCRIT 32 % (35-52); HEMOGLOBIN 10.4 g/dL (11.5-16.0); LYMPHOCYTES % (AUTO) 35 % (12-44); MEAN CORPUSCULAR HEMOGLOBIN 28 pg (25-34); MEAN CORPUSCULAR HGB CONC 32 g/dL (32-36); MEAN CORPUSCULAR VOLUME 88 fL (80-99); MEAN PLATELET VOLUME 10.7 fL (9.0-12.2); MONOCYTES # (AUTO) 0.8 10^3/uL (0.0-1.0); MONOCYTES % (AUTO) 7 % (0-12); NEUTROPHILS # (AUTO) 6.4 10^3/uL (1.8-7.8); NEUTROPHILS % (AUTO) 55 % (42-75); PLATELET COUNT 285 10^3/uL (130-400); WHITE BLOOD COUNT 11.6 10^3/uL (4.3-11.0)
[2020-10-13 17:49] LABS: BILIRUBIN,TOTAL 0.5 MG/DL (0.1-1.0); CALCIUM 8.1 MG/DL (8.5-10.1); CREATININE SERUM 1.57 MG/DL (0.60-1.30); POTASSIUM 2.8 MMOL/L (3.6-5.0); TOTAL PROTEIN 6.3 GM/DL (6.4-8.2)
[2020-10-13 17:53] LABS: WBC,URINE 50-100 /HPF
[2020-10-13 17:54] LABS: AMORPHOUS SEDIMENT,UR RARE AMOR URATES /LPF; BACTERIA,URINE MODERATE /HPF
--- NOTE | 2020-10-13 17:54 | Diagnostic Imaging Report ---
INDICATION: Weakness, loss of appetite, low blood sugar. COMPARISON STUDY: Chest from 06/23/2017. FINDINGS: Portable upright view of the chest demonstrates the lungs to be clear. Heart size and vascularity are normal. There are no pleural effusions. IMPRESSION: Normal portable chest. Dictated by: Dictated on workstation # [id number]
[2020-10-13] MEDS ORDERED: NS W/KCL 40 MEQ/L 1,000 ML IV SCH (18:00)
[2020-10-13] MEDS ORDERED: ONDANSETRON 4 MG/2 ML (SDV) Z0FRAN IVP ONE (18:00)
[2020-10-13] MEDS ORDERED: KCL 10 MEQ TAB (MICRO K) PO ONE (18:00)
[2020-10-13] MEDS ORDERED: cefTRIAXone FOR IV USE 1,000 MG in WATER (STERILE) FOR INJECTION 10 ML IV ONE (18:00)
--- NOTE | 2020-10-13 18:04 | ED General ---
General Chief Complaint: Glucose Problems Stated Complaint: WEAKNESS Nursing Triage Note: PT BROUGHT IN BY [facility] FROM HOME WITH COMPLAINT OF LOW BLOOD SUGAR. ON ARRIVAL PTS SUGAR READ "LOW". PT WAS GIVEN 500ML BAG OF D10 EN ROUTE. ON ARRIVAL TO ER, PTS BS WAS 166. PT IS ALERT AND ORIENTED. STATES SHE TOOK HER INSULIN THIS MORNING AND DID EAT LUNCH. Nursing Sepsis Screen: No Definite Risk Source of Information: Patient Exam Limitations: No Limitations History of Present Illness Date Seen by Provider: Oct 13, 2020 Time Seen by Provider: 17:30 Initial Comments To ER by EMS with reports of low blood sugar. She was in the living room when she slumped over. EMS arrived and found her blood sugar to be too low to read. They initiated IV and gave 500 mL of D10. On arrival to ER blood sugar was 166 and her mentation had improved back to her baseline. However she does state that she has had some general weakness, fevers chills and new onset urinary incontinence for the past few days. They state that since about the of this month her blood glucose has been reading a bit low as well, in the 50-80 range. She is on Lantus 40 units at at bedtime recently increased from 38 units and Humulin 22 units during the morning and this was recently increased from 20 units due to hyperglycemia. Timing/Duration: 3-4 Days Severity: Moderate Associated Systoms: Cough, Malaise, Nausea/Vomiting, Weakness Allergies and Home Medications Allergies Coded Allergies: No Known Drug Allergies (Verified , 01/23/19) Home Medications Aspirin 81 Mg Tablet.dr, 81 MG PO DAILY, (Reported) Carvedilol 12.5 Mg Tablet, 12.5 MG PO BID, (Reported) Docusate Sodium 100 Mg Tablet, 100 MG PO every other day, (Reported) Folic Acid 1 Mg Tablet, 1 MG PO DAILY, (Reported) Insulin Glargine,Hum.rec.anlog 100 Unit/1 Ml Insuln.pen, 28 UNIT SQ HS, (Reported) Insulin NPH Hum/Reg Insulin Hm 100 Unit/1 Ml Insuln.pen, 18 UNIT SQ DAILY, (Reported) Levothyroxine Sodium 100 Mcg Tablet, 100 MCG PO DAILY, (Reported) Losartan Potassium 100 Mg Tablet, 100 MG PO DAILY, (Reported) Terazosin HCl 5 Mg Capsule, 5 MG PO DAILY, (Reported) Patient Home Medication List Home Medication List Reviewed: Yes Review of Systems Review of Systems Constitutional: see HPI, chills, weakness EENTM: see HPI Respiratory: see HPI, cough Cardiovascular: no symptoms reported Genitourinary: no symptoms reported Musculoskeletal: no symptoms reported Skin: no symptoms reported Psychiatric/Neurological: No Symptoms Reported Hematologic/Lymphatic: No Symptoms Reported Immunological/Allergic: no symptoms reported Past Jkkzdll-Qkeicx-Gcgkyk Hx Patient Social History Alcohol Use: Denies Use Smoking Status: Never a Smoker 2nd Hand Smoke Exposure: No Recent Infectious Disease Expo: No Recent Hopitalizations: No Immunizations Up To Date Tetanus Booster (TDap): Unknown PED Vaccines UTD: No Date of Pneumonia Vaccine: Sep 09, 2009 Date of Influenza Vaccine: Apr 24, 2013 Seasonal Allergies Seasonal Allergies: No Past Medical History Surgeries: Yes (hernia repair, left hand, right hemicolectomy, port placed and removed) Abdominal, Tonsillectomy Respiratory: Yes (gets SOB) Cardiac: Yes Hypertension Neurological: No Reproductive Disorders: No Genitourinary: No Gastrointestinal: Yes (COLON CANCER) Musculoskeletal: Yes Arthritis Endocrine: Yes Diabetes, Insulin dep, Hypothyroidsim HEENT: Yes (cataracts removed, dentures) Cancer: Yes Colon What Type of Treatment Did You: Chemotherapy, Surgical Intervention Psychosocial: No Integumentary: No Blood Disorders: No Family Medical History Family history: Cardiovascular disease 03 FATHER 03 MOTHER Family history: Diabetes mellitus 03 MOTHER 09 SISTER Family history: Hypertension 03 FATHER 03 MOTHER Myocardial infarction 03 FATHER 03 MOTHER Stroke 09 SISTER No Family History of: Abdominal aortic aneurysm Cancer Family history: Alzheimer's disease Family history: Arthritis Family history: Asthma Family history: Breast disease Family history: Gastrointestinal disease Family history: Thyroid disorder History of - anemia History of - respiratory disease Psychotic disorder Seizure disorder No Pertinent Family Hx Physical Exam Vital Signs Vital Signs - First Documented 10/13/20 17:05 Temp 36.8 Pulse 64 Resp 20 B/P (MAP) 112/56 (74) Pulse Ox 97 O2 Delivery Room Air Capillary Refill : Less Than 3 Seconds Height, Weight, BMI Height: 4'11.00" Weight: 200lbs. 0.0oz. 90.758475qg; 40.00 BMI Method:Stated General Appearance: No Apparent Distress, WD/WN, Obese, Other (alert and orinted, talkative. ) Neck: Full Range of Motion, Normal Inspection Respiratory: No Accessory Muscle Use, No Respiratory Distress Gastrointestinal: Normal Bowel Sounds, Non Tender, Soft Extremity: Normal Capillary Refill, Other (left great toe ecchymosis-states she stubbed it after tripping over rug recently ) Neurologic/Psychiatric: Alert, Oriented x3 Skin: Normal Color, Warm/Dry, Other (She does have a few small areas of erythema/eschar to the lateral right abdomen. Daughter states that she likes to sleep on a heating pad. These appear to be blisters that have ruptured from heat injury.) Progress/Results/Core Measures Suspected Sepsis Recent Fever Within 48 Hours: No Infection Criteria Present: None New/Unexplained Altered Menta: No Sepsis Screen: No Definite Risk SIRS Temperature: Pulse: 64 Respiratory Rate: 20 Laboratory Tests 10/13/20 17:24: White Blood Count 11.6H Blood Pressure 112 /56 Mean: 74 Laboratory Tests 10/13/20 17:24: Creatinine 1.57H, Platelet Count 285, Total Bilirubin 0.5 Results/Orders Lab Results Laboratory Tests Test 10/13/20 17:10 10/13/20 17:24 10/13/20 17:25 Range/Units Glucometer 166 H 70-110 MG/DL White Blood Count 11.6 H 4.3-11.0 10^3/uL Red Blood Count 3.67 L 3.80-5.11 10^6/uL Hemoglobin 10.4 L 11.5-16.0 g/dL Hematocrit 32 L 35-52 % Mean Corpuscular Volume 88 80-99 fL Mean Corpuscular Hemoglobin 28 25-34 pg Mean Corpuscular Hemoglobin Concent 32 32-36 g/dL Red Cell Distribution Width 14.9 H 10.0-14.5 % Platelet Count 285 130-400 10^3/uL Mean Platelet Volume 10.7 9.0-12.2 fL Immature Granulocyte % (Auto) 3 % Neutrophils (%) (Auto) 55 42-75 % Lymphocytes (%) (Auto) 35 12-44 % Monocytes (%) (Auto) 7 0-12 % Eosinophils (%) (Auto) 0 0-10 % Basophils (%) (Auto) 0 0-10 % Neutrophils # (Auto) 6.4 1.8-7.8 10^3/uL Lymphocytes # (Auto) 4.0 1.0-4.0 10^3/uL Monocytes # (Auto) 0.8 0.0-1.0 10^3/uL Eosinophils # (Auto) 0.0 0.0-0.3 10^3/uL Basophils # (Auto) 0.0 0.0-0.1 10^3/uL Immature Granulocyte # (Auto) 0.3 H 0.0-0.1 10^3/uL Urine Color DARK YELLOW Urine Clarity SL CLOUDY Urine pH 6.0 5-9 Urine Specific [place] 1.020 1.016-1.022 Urine Protein 1+ H NEGATIVE Urine Glucose (UA) 1+ H NEGATIVE Urine Ketones NEGATIVE NEGATIVE Urine Nitrite POSITIVE H NEGATIVE Urine Bilirubin NEGATIVE NEGATIVE Urine Urobilinogen 2.0 < = 1.0 MG/DL Urine Leukocyte Esterase 1+ H NEGATIVE Urine RBC (Auto) 3+ H NEGATIVE Urine RBC 10-25 H /HPF Urine WBC 50-100 H /HPF Urine Crystals PRESENT H /LPF Urine Amorphous Sediment RARE NIRLAI URATES H /LPF Urine Bacteria MODERATE H /HPF Urine Casts NONE /LPF Urine Mucus NEGATIVE /LPF Urine Culture Indicated YES Sodium Level 131 L 135-145 MMOL/L Potassium Level 2.8 L 3.6-5.0 MMOL/L Chloride Level 99 98-107 MMOL/L Carbon Dioxide Level 21 21-32 MMOL/L Anion Gap 11 5-14 MMOL/L Blood Urea Nitrogen 30 H 7-18 MG/DL Creatinine 1.57 H 0.60-1.30 MG/DL Estimat Glomerular Filtration Rate 31 BUN/Creatinine Ratio 19 Glucose Level 163 H 70-105 MG/DL Uric Acid 4.0 2.6-7.2 MG/DL Calcium Level 8.1 L 8.5-10.1 MG/DL Corrected Calcium 8.9 8.5-10.1 MG/DL Total Bilirubin 0.5 0.1-1.0 MG/DL Aspartate Amino Transf (AST/SGOT) 60 H 5-34 U/L Alanine Aminotransferase (ALT/SGPT) 30 0-55 U/L Alkaline Phosphatase 106 40-136 U/L Total Protein 6.3 L 6.4-8.2 GM/DL Albumin 3.0 L 3.2-4.5 GM/DL Magnesium Level 2.0 1.6-2.4 MG/DL My Orders Orders - MARY BARBOUR CORRECTIVE THERAPY AIDE TEACHER Cbc With Automated Diff (10/13/20 17:23) Comprehensive Metabolic Panel (10/13/20 17:23) Ua Culture If Indicated (10/13/20 17:23) Ed Iv/Invasive Line Start (10/13/20 17:23) Chest 1 View, Ap/Pa Only (10/13/20 17:23) Ekg Tracing (10/13/20 17:23) Urine Culture (10/13/20 17:24) Potassium Chloride (Tablet) (Klor Con Ta (10/13/20 18:00) Ondansetron Injection (Zofran Injectio (10/13/20 18:00) Ns W/Kcl 40 Meq/L (Ns Iv W/Kcl 40 Meq/L) (10/13/20 18:00) Ceftriaxone For Iv Use (Rocephin For I (10/13/20 18:00) Medications Given in ED Current Medications Medications Dose Ordered Sig/Srini Route Start Time Stop Time Status Last Admin Dose Admin Ceftriaxone Sodium 1000 mg/ Sterile Water 10 ml @ 200 mls/hr ONCE ONCE IV 10/13/20 18:00 10/13/20 18:02 DC 10/13/20 18:13 200 MLS/HR Ondansetron HCl 4 mg ONCE ONCE IVP 10/13/20 18:00 10/13/20 18:01 DC 10/13/20 18:13 4 MG Potassium Chloride 40 meq ONCE ONCE PO 10/13/20 18:00 10/13/20 18:01 DC 10/13/20 18:13 40 MEQ Vital Signs/I&O 10/13/20 17:05 Temp 36.8 Pulse 64 Resp 20 B/P (MAP) 112/56 (74) Pulse Ox 97 O2 Delivery Room Air Capillary Refill : Less Than 3 Seconds Blood Pressure Mean: 74 Departure Impression Primary Impression: Hypokalemia Additional Impressions: Contusion of foot Qualified Codes: S90.32XS - Contusion of left foot, sequela Urinary tract infection Qualified Codes: N30.01 - Acute cystitis with hematuria Weakness Disposition: ADMITTED INPATIENT Condition: Stable Admissions Decision to Admit Reason: Admit from ER (General) Decision to Admit/Date: Oct 13, 2020 Time/Decision to Admit Time: 18:03 Departure-Patient Inst. Referrals: DC VARGAS MD (PCP/Family) Primary Care Physician MARY BARBOUR APRN Oct 13, 2020 18:03
[2020-10-13 19:50] VITALS: BP 146/67
[2020-10-13] MEDS ORDERED: NS IV 1000 ML 1,000 ML IV SCH ×2 (20:30)
[2020-10-13] MEDS ORDERED: ACETAMINOPHEN 325 MG TABLET PO PRN (21:00)
[2020-10-13] MEDS: inSUlin ASPART (NovoLOG) 1 UNIT/0.01 ML (CHARGE PER UNIT) SC SCH (21:14)
[2020-10-13] MEDS: D5 NS 1000 ML IV SOLUTION 1,000 ML IV SCH (21:34)
[2020-10-13] MEDS: ENOXAPARIN 30 MG/0.3 ML (LOVENOX) SYR SC SCH (21:34)
[2020-10-13] MEDS: POTASSIUM CL 10MEQ/50ML IVPB 50 ML IV SCH ×2 (21:34→21:45)
[2020-10-13 23:56] LABS: POTASSIUM 4.2 MMOL/L (3.6-5.0)
[2020-10-13 23:57] LABS: CALCIUM 8.1 MG/DL (8.5-10.1)
[2020-10-13 23:59] LABS: TOTAL PROTEIN 6.3 GM/DL (6.4-8.2)
[2020-10-14] VITALS: BP 142/63
[2020-10-14] LABS: BILIRUBIN,TOTAL 0.5 MG/DL (0.1-1.0)
[2020-10-14] MEDS ORDERED: ONDANSETRON 4 MG/2 ML (SDV) Z0FRAN IVP PRN
[2020-10-14 00:02] LABS: CREATININE SERUM 1.37 MG/DL (0.60-1.30)
[2020-10-14 04:00] VITALS: BP 129/60
[2020-10-14] MEDS: inSUlin ASPART (NovoLOG) 1 UNIT/0.01 ML (CHARGE PER UNIT) SC SCH ×5 (05:26→20:12)
[2020-10-14 05:46] LABS: MEAN PLATELET VOLUME 10.3 fL (9.0-12.2); WHITE BLOOD COUNT 10.9 10^3/uL (4.3-11.0)
[2020-10-14 05:58] LABS: ALBUMIN 2.9 GM/DL (3.2-4.5); POTASSIUM 4.1 MMOL/L (3.6-5.0)
[2020-10-14 06:00] LABS: CALCIUM 7.9 MG/DL (8.5-10.1)
[2020-10-14 06:02] LABS: BILIRUBIN,TOTAL 0.4 MG/DL (0.1-1.0)
[2020-10-14 06:04] LABS: CREATININE SERUM 1.49 MG/DL (0.60-1.30)
[2020-10-14 06:08] LABS: MAGNESIUM 2.1 MG/DL (1.6-2.4)
[2020-10-14 08:00] VITALS: BP 149/71
--- NOTE | 2020-10-14 08:58 | History & Physical ---
History of Present Illness History of Present Illness Reason for visit/HPI PT WAS ADMITTED TO THE HOSPITAL AFTER HAVING A HYPOGLYCEMIC EPISODE AND BEING ACUTELY OBTUNDED. FAMILY REPORTS THAT SHE HAS BEEN HAVING THESE EPISODES INTERMITTENTLY - THEY ARE NOT SURE THAT SHE IS TAKING HER MEDICATION CORRECTLY. SHE ALSO WAS DIAGNOSED WITH UTI AND HYPONATREMIA AND HYPOKALEMIA ON ADMISSION. Date of Admission Oct 13, 2020 at 18:30 Date Seen by a Provider: Oct 13, 2020 Time Seen by a Provider: 18:30 Attending Physician Dc Knox MD Admitting Physician Dc Knox MD Consult Allergies and Home Medications Allergies Coded Allergies: No Known Drug Allergies (Verified , 01/23/19) Home Medications Amoxicillin/Potassium Clav 1 Each Tablet, 1 EACH PO BID Prescribed by: DC KNOX on 10/15/20920 Aspirin 81 Mg Tablet.dr, 81 MG PO DAILY, (Reported) Carvedilol 12.5 Mg Tablet, 12.5 MG PO BID, (Reported) Diclofenac Sodium 100 Gm Gel..gram., 0 GM TOP TID apply to left knee and other affected arthritic joints three times daily Prescribed by: DC KNOX on 10/15/20920 Docusate Sodium 100 Mg Tablet, 100 MG PO every other day, (Reported) Folic Acid 1 Mg Tablet, 1 MG PO DAILY, (Reported) Insulin Glargine,Hum.rec.anlog 100 Unit/1 Ml Insuln.pen, 18 UNIT SQ HS Prescribed by: DC KNOX on 10/15/20920 Insulin NPH Hum/Reg Insulin Hm 100 Unit/1 Ml Insuln.pen, 14 UNIT SQ DAILY Prescribed by: DC KNOX on 10/15/20920 Lactobacillus Acidophilus 1 Each Capsule, 1 EACH PO TID Prescribed by: DC KNOX on 10/15/20920 Levothyroxine Sodium 100 Mcg Tablet, 100 MCG PO DAILY, (Reported) Losartan Potassium 100 Mg Tablet, 100 MG PO DAILY, (Reported) Potassium Chloride 10 Meq Tab.er.prt, 10 MEQ PO BID Prescribed by: DC KNOX on 10/15/20920 Terazosin HCl 5 Mg Capsule, 5 MG PO DAILY, (Reported) Patient Home Medication List Home Medication List Reviewed: Yes Past Gsfbtwi-Ldeabp-Bzqawd Hx Past Med/Social Hx: Reviewed Nursing Past Med/Soc Hx Patient Social History Marrital Status: Living Status: LIVES WITH SPOUSE IN THEIR OWN HOME Employed/Student: retired Alcohol Use: Denies Use Recreational Drug Use: No Smoking Status: Never a Smoker 2nd Hand Smoke Exposure: No Physical Abuse Screen: No Sexual Abuse: No Recent Foreign Travel: No Contact w/other who traveled: No Recent Hopitalizations: No Recent Infectious Disease Expo: No Immunizations Up To Date Tetanus Booster (TDap): Unknown Pediatric: No Date of Pneumonia Vaccine: Sep 09, 2009 Date of Influenza Vaccine: Apr 24, 2020 Seasonal Allergies Seasonal Allergies: No Past Medical History Surgeries: Abdominal, Tonsillectomy Cardiac: Hypertension Reproductive: No Musculoskeletal: Arthritis Endocrine: Diabetes, Insulin dep, Hypothyroidsim Cancer: Colon What Type of Treatment Did You: Chemotherapy, Surgical Intervention History of Blood Disorders: No Family History Reviewed Nursing Family Hx Family history: Cardiovascular disease 03 FATHER 03 MOTHER Family history: Diabetes mellitus 03 MOTHER 09 SISTER Family history: Hypertension 03 FATHER 03 MOTHER Myocardial infarction 03 FATHER 03 MOTHER Stroke 09 SISTER No Family History of: Abdominal aortic aneurysm Cancer Family history: Alzheimer's disease Family history: Arthritis Family history: Asthma Family history: Breast disease Family history: Gastrointestinal disease Family history: Thyroid disorder History of - anemia History of - respiratory disease Psychotic disorder Seizure disorder No Pertinent Family Hx Review of Systems Constitutional: No chills, No fever; malaise, weakness EENTM: No hoarseness, No throat pain Respiratory: No cough, No dyspnea on exertion, No short of breath Cardiovascular: No chest pain, No palpitations Gastrointestinal: No abdominal pain Genitourinary: no symptoms reported, frequency, incontinence Musculoskeletal: joint pain Skin: no symptoms reported Psychiatric/Neurological: Anxiety, Weakness All Other Systems Reviewed Negative Unless Noted: Yes Physical Exam Vital Signs Capillary Refill : Less Than 3 Seconds Height, Weight, BMI Height: 4'11.00" Weight: 200lbs. 0.0oz. 90.556103ca; 43.40 BMI Method:Stated General Appearance: No Apparent Distress, WD/WN HEENT: PERRL/EOMI, Pharynx Normal Neck: Full Range of Motion, Non Tender, Supple Respiratory: Chest Non Tender, Lungs Clear, Normal Breath Sounds, No Accessory Muscle Use, No Respiratory Distress Cardiovascular: Regular Rate, Rhythm, Normal Peripheral Pulses Gastrointestinal: Normal Bowel Sounds, No Organomegaly, No Pulsatile Mass, Non Tender, Soft Rectal: Deferred Extremity: Normal Capillary Refill, Normal Range of Motion, Non Tender, No Calf Tenderness Neurologic/Psychiatric: Alert, No Motor/Sensory Deficits, Normal Mood/Affect, Other (ORIENTED TO PERSON ) Skin: Normal Color, Warm/Dry Lymphatic: No Adenopathy Assessment/Plan Assessment and Plan HYPOGLYCEMIA HYPOKALEMIA HYPONATREMIA URINARY TRACT INFECTION ACUTE RENAL FAILURE DEMENTIA CONFUSION HTN HYPOTHYROIDISM HYPOGLYCEMIA - IMPROVED ON ADMISSION - MONITOR FSBS HYPOKALEMIA WITH HYPONATREMIA - REPLENISH WITH IV FLUIDS, IV POTASSIUM, MONITOR LABS CLOSELY. URINARY TRACT INFECTION - IV ANTIBIOTICS - ROCEPHIN INITIATED IN ER, WILL MONITOR URINE CULTURE REPORT. ACUTE RENAL FAILURE - SHOULD IMPROVE WITH IV FLUIDS, MONITOR SERIAL LABS, RENALLY ADJUST MEDS. DEMENTIA WITH ACUTE CONFUSION - SUPPORTIVE CARE. DISCUSSED WITH HER DTR - THEY WOULD LIKE TO CONSIDER ADMISSION TO ASSISTED LIVING ON DISCHARGE. HTN - RESUME HOME MEDS. HYPOTHYROIDISM - CHECK LABS - RESUME LEVOTHYROXINE Admission Diagnosis HYPOGLYCEMIA HYPOKALEMIA HYPONATREMIA URINARY TRACT INFECITON ACUTE RENAL FAILURE DEMENTIA CONFUSION Admission Status: Observation DC KNOX MD Oct 14, 2020 08:58
[2020-10-14] MEDS: D5 NS 1000 ML IV SOLUTION 1,000 ML IV SCH (10:14)
--- NOTE | 2020-10-14 10:33 | Progress Note ---
Subjective Subjective Date Seen by Provider: Oct 14, 2020 Time Seen by Provider: 10:00 PT REPORTS THAT SHE IS "JUST FINE" - HER DTR REPORTS THAT SHE IS STILL REALLY CONFUSED AND THEY ARE WORRIED ABOUT TAKING HER HOME IN HER CURRENT STATE. Review of Systems General: No Chills; Fatigue Pulmonary: No Dyspnea, No Cough Gastrointestinal: No: Nausea, Abdominal Pain Neurological: Weakness, Confusion Objective Exam Vital Signs Vital Signs - First Documented 10/13/20 17:05 Temp 36.8 Pulse 64 Resp 20 B/P (MAP) 112/56 (74) Pulse Ox 97 O2 Delivery Room Air Capillary Refill : Less Than 3 Seconds General Appearance: No Apparent Distress, WD/WN, Obese, Other (alert and orinted, talkative. ) Neck: Full Range of Motion, Normal Inspection Respiratory: No Accessory Muscle Use, No Respiratory Distress Gastrointestinal: Normal Bowel Sounds, Non Tender, Soft Extremity: Normal Capillary Refill, Other (left great toe ecchymosis-states she stubbed it after tripping over rug recently ) Neurologic/Psychiatric: Alert, Oriented x3 Skin: Normal Color, Warm/Dry, Other (She does have a few small areas of erythema/eschar to the lateral right abdomen. Daughter states that she likes to sleep on a heating pad. These appear to be blisters that have ruptured from heat injury.) Results Lab Laboratory Tests 10/13/20 17:10: Glucometer 166H 10/13/20 17:24: White Blood Count 11.6H, Red Blood Count 3.67L, Hemoglobin 10.4L, Hematocrit 32L , Mean Corpuscular Volume 88, Mean Corpuscular Hemoglobin 28, Mean Corpuscular Hemoglobin Concent 32, Red Cell Distribution Width 14.9H, Platelet Count 285, Mean Platelet Volume 10.7, Immature Granulocyte % (Auto) 3, Neutrophils (%) (Auto) 55, Lymphocytes (%) (Auto) 35, Monocytes (%) (Auto) 7, Eosinophils (%) (Auto) 0, Basophils (%) (Auto) 0, Neutrophils # (Auto) 6.4, Lymphocytes # (Auto) 4.0, Monocytes # (Auto) 0.8, Eosinophils # (Auto) 0.0, Basophils # (Auto) 0.0, Immature Granulocyte # (Auto) 0.3H, Urine Color DARK YELLOW, Urine Clarity SL CLOUDY, Urine pH 6.0, Urine Specific [place] 1.020, Urine Protein 1+H, Urine Glucose (UA) 1+H, Urine Ketones NEGATIVE, Urine Nitrite POSITIVEH, Urine Bilirubin NEGATIVE, Urine Urobilinogen 2.0, Urine Leukocyte Esterase 1+H, Urine RBC (Auto) 3+H, Urine RBC 10-25H, Urine WBC 50-100H, Urine Crystals PRESENTH, Urine Amorphous Sediment RARE NIRALI URATESH, Urine Bacteria MODERATEH, Urine Casts NONE, Urine Mucus NEGATIVE, Urine Culture Indicated YES, Sodium Level 131L , Potassium Level 2.8L, Chloride Level 99, Carbon Dioxide Level 21, Anion Gap 11, Blood Urea Nitrogen 30H, Creatinine 1.57H, Estimat Glomerular Filtration Rate 31, BUN/Creatinine Ratio 19, Glucose Level 163H, Uric Acid 4.0, Calcium Level 8.1L, Corrected Calcium 8.9, Total Bilirubin 0.5, Aspartate Amino Transf (AST/SGOT) 60H, Alanine Aminotransferase (ALT/SGPT) 30, Alkaline Phosphatase 106, Total Protein 6.3L, Albumin 3.0L 10/13/20 17:25: Magnesium Level 2.0 10/13/20 20:35: Glucometer 42*L 10/13/20 23:08: Glucometer 94 10/13/20 23:40: Sodium Level 133L, Potassium Level 4.2, Chloride Level 105, Carbon Dioxide Level 19L, Anion Gap 9, Blood Urea Nitrogen 29H, Creatinine 1.37H, Estimat Glomerular Filtration Rate 37, BUN/Creatinine Ratio 21, Glucose Level 91, Calcium Level 8.1L, Corrected Calcium 8.9, Total Bilirubin 0.5, Aspartate Amino Transf (AST/SGOT) 56H, Alanine Aminotransferase (ALT/SGPT) 26, Alkaline Phosphatase 102, Total Protein 6.3L, Albumin 3.0L 10/14/20 05:01: Glucometer 138H 10/14/20 05:34: Sodium Level 136, Potassium Level 4.1, Chloride Level 108H, Carbon Dioxide Level 18L, Anion Gap 10, Blood Urea Nitrogen 30H, Creatinine 1.49H, Estimat Glomerular Filtration Rate 33, BUN/Creatinine Ratio 20, Glucose Level 143H, Calcium Level 7.9L, Corrected Calcium 8.8, Total Bilirubin 0.4, Aspartate Amino Transf (AST/SGOT) 52H, Alanine Aminotransferase (ALT/SGPT) 25, Alkaline Phosphatase 97, Total Protein 6.0L, Albumin 2.9L, White Blood Count 10.9, Red Blood Count 3.51L, Hemoglobin 10.0L, Hematocrit 31L, Mean Corpuscular Volume 89, Mean Corpuscular Hemoglobin 29, Mean Corpuscular Hemoglobin Concent 32, Red Cell Distribution Width 15.1H, Platelet Count 302, Mean Platelet Volume 10.3, Magnesium Level 2.1 Microbiology 10/13/20 Urine Culture - Preliminary, Resulted Escherichia coli Assessment/Plan Assessment/Plan Admission Dx HYPOGLYCEMIA HYPOKALEMIA HYPONATREMIA URINARY TRACT INFECTION ACUTE RENAL FAILURE DEMENTIA CONFUSION HTN HYPOTHYROIDISM Assessment and Plan HYPOGLYCEMIA HYPOKALEMIA HYPONATREMIA URINARY TRACT INFECTION ACUTE RENAL FAILURE DEMENTIA CONFUSION HTN HYPOTHYROIDISM HYPOGLYCEMIA - IMPROVED ON ADMISSION - MONITOR FSBS HYPOKALEMIA WITH HYPONATREMIA - REPLENISH WITH IV FLUIDS, IV POTASSIUM, MONITOR LABS CLOSELY. URINARY TRACT INFECTION - IV ANTIBIOTICS - ROCEPHIN INITIATED IN ER, WILL MONITOR URINE CULTURE REPORT. ACUTE RENAL FAILURE - SHOULD IMPROVE WITH IV FLUIDS, MONITOR SERIAL LABS, RENALLY ADJUST MEDS. DEMENTIA WITH ACUTE CONFUSION - SUPPORTIVE CARE. DISCUSSED WITH HER DTR - THEY WOULD LIKE TO CONSIDER ADMISSION TO ASSISTED LIVING ON DISCHARGE. HTN - RESUME HOME MEDS. HYPOTHYROIDISM - CHECK LABS - RESUME LEVOTHYROXINE DC VARGAS MD Oct 14, 2020 10:33
[2020-10-14] MEDS ORDERED: cefTRIAXone FOR IV USE 1,000 MG in WATER (STERILE) FOR INJECTION 10 ML IV SCH (10:45)
[2020-10-14 12:00] VITALS: BP 149/73
[2020-10-14] MEDS: DICLOFENAC 1% GEL 100 GM (VOLTAREN) TUBE TOP SCH ×4 (12:48→20:09)
--- NOTE | 2020-10-14 15:15 | Physical Therapy Evaluation ---
PT Evaluation-General Medical Diagnosis Admission Date Oct 13, 2020 at 18:30 Medical Diagnosis: confusion Onset Date: Oct 13, 2020 Therapy Diagnosis Therapy Diagnosis: decreased mobility Height/Weight Height (Feet): 4 Height (Inches): 11.00 Weight (Pounds): 200 Weight (Ounces): 0.0 Precautions Precautions/Isolations: Fall Prevention, Standard Precautions Weight Bear Status Full Weight Bearing Full Weight Bearing Referral Physician: Dr. Knox Reason for Referral: Evaluation/Treatment Medical History Pertinent Medical History: DM, HTN Additional Medical History colon CA Current History Pt. presented to hospital via EMS due to low blood sugar, confusion. Reviewed History: Yes Social History Home: Single Level Current Living Status: Spouse Entry Into Home: Stairs With Railing PT Steps Into Home: 2 Prior Prior Level of Function SCALE: Activities may be completed with or without assistive devices. 7-[id number]-[id number] completes the activity by him/herself with no assistance from a helper. 5-Set-up or Clean-up Assistance-helper sets up or cleans up; patient completes activity. [place] assists only prior to or following the activity. 4-Supervision or Touching Assistance-helper provides verbal cues and/or touching/steadying and/or contact guard assistance as patient completes activity. Assistance may be provided throughout the activity or intermittently. 3-Partial/Moderate Assistance-helper does LESS THAN HALF the effort. [place] lifts, holds or supports trunk or limbs, but provides less than half the effort. 2-Substantial/Maximal Assistance-helper does MORE THAN HALF the effort. [place] lifts or holds trunk or limbs and provides more than half the effort. 4-Ymgqylzvx-hinkll does ALL the effort. Patient does none of the effort to complete the activity. Or, the assistance of 2 or more helpers is required for the patient to complete the activity. If activity was not attempted, code reason: 7-Patient Refused. 9-Not Applicable-not attempted and the patient did not perform the activity before the current illness, exacerbation or injury. 10-Not Attempted due to Environmental Limitations-(lack of equipment, weather restraints, etc.). 88-Not Attempted due to Medical Conditions or Safety Concerns. Bed Mobility: 6 Transfers (B,C,W/C): 6 Gait: 6 Stairs: 6 Indoor Mobility (Ambulation): Independent pt. states over the past few days she has needed some help from her to walk around the house. PT Evaluation-Current Subjective Pt. has no c/o pain, agrees to ambulate. Pt/Family Goals home Objective Patient Orientation: Person, Place, Time, Situation Attachments: IV ROM/Strength ROM Upper Extremities WNL ROM Lower Extremities WNL Strength Upper Extremities WNL Strength Lower Extremities Grossly 4/5 Integumentary/Posture Integumentary see nursing notes Bowel Incontinence: No Bladder Incontinence: No Neuromuscular (Tone, Coordination, Reflexes) unremarkable Sensory Vision: Functional Hearing: Functional Sensation Right Upper Extremit: Intact Sensation Left Upper Extremity: Intact Sensation Right Lower Extremit: Intact Sensation Left Lower Extremity: Intact Transfers Roll Left to Right (QC): 4 Sit to Lying (QC): 4 Lying to Sitting/Side of Bed(Q: 4 Sit to Stand (QC): 4 Gait Does the Patient Walk?: Yes Mode of Locomotion: Walk Anticipated Mode of Locomotion: Walk Walk 10 feet (QC): 4 Distance: 100 ft Gait Assistive Device: FWW Balance Sitting Static: Good Sitting Dynamic: Good Standing Static: Fair Standing Dynamic: Fair Treatment toileting with SBA Assessment/Needs Pt. is an 85 y.o. female with decreased mobility and who would benefit from skilled PT to improve strength and safe mobility for return home with spouse. Pt. was generally steady with ambulation using a FWW but did fatigue quickly. Pt. returned to bed post session with call light and all needs met. Rehab Potential: Good PT Short Term Goals Short Term Goals Time Frame: Oct 21, 2020 Sit to lyin Lying to sitting on side of be: 6 Sit to stand: 6 Walk 150 feet: 6 PT Plan Problem List Problem List: Activity Tolerance, Functional Strength, Safety, Balance, Gait, Transfer, Bed Mobility, ROM Treatment/Plan Treatment Plan: Continue Plan of Care Treatment Plan: Bed Mobility, Concurrent Therapy, Education, Functional Activity [place], Functional Strength, Gait, Safety, Therapeutic Exercise, Transfers Treatment Duration: Oct 21, 2020 Frequency: 6 times per week Estimated Hrs Per Day: .25 hour per day Patient and/or Family Agrees t: Yes Time/GCodes Time In: 1450 Time Out: 1510 Total Billed Treatment Time: 20 Total Billed Treatment 1, EVL 10', GT 10' DAVINA MONTANO PT Oct 14, 2020 15:15
[2020-10-14 16:01] VITALS: BP 165/73
[2020-10-14] MEDS: cefTRIAXone 1,000 MG/SWFI 10 ML IV PUSH IV SCH ×2 (17:37)
[2020-10-14] MEDS ORDERED: KCL 20 MEQ TAB (K-DUR) PO SCH (18:00)
[2020-10-14 19:52] VITALS: BP 154/78
[2020-10-14] MEDS: ENOXAPARIN 30 MG/0.3 ML (LOVENOX) SYR SC SCH (20:09)
[2020-10-15] VITALS: BP 184/74
[2020-10-15] MEDS ORDERED: LOSARTAN 100 MG (COZAAR) TABLET PO ONE
[2020-10-15] MEDS ORDERED: CARVEDILOL 12.5 MG (COREG) TABLET PO ONE
[2020-10-15] MEDS: D5 NS 1000 ML IV SOLUTION 1,000 ML IV SCH (00:03)
[2020-10-15 04:00] VITALS: BP 168/71
[2020-10-15] MEDS: inSUlin ASPART (NovoLOG) 1 UNIT/0.01 ML (CHARGE PER UNIT) SC SCH ×2 (06:39→11:26)
[2020-10-15 08:00] VITALS: BP 153/54
[2020-10-15] MEDS ORDERED: CARVEDILOL 12.5 MG (COREG) TABLET PO SCH (08:00)
[2020-10-15] MEDS ORDERED: LOSARTAN 100 MG (COZAAR) TABLET PO SCH (09:00)
[2020-10-15] MEDS ORDERED: INSU100I10 SQ (09:21)
[2020-10-15] MEDS ORDERED: LACT1CAP87 PO (09:21)
[2020-10-15] MEDS ORDERED: AMOX-358 PO (09:21)
[2020-10-15] MEDS ORDERED: HUM100IN4 SQ (09:21)
[2020-10-15] MEDS ORDERED: POTA10TA36 PO (09:21)
[2020-10-15] MEDS ORDERED: DICL100G18 TOP (09:21)
--- NOTE | 2020-10-15 09:24 | D/C HH Face to Face Order ---
D/C Face to Face Orders Reconcile Patient Problems Problems Reviewed?: Yes Instructions for Patient [facility] Patient Instructions/FollowUp: 1 wk [facility] Physician to follow Patient: viola Discharge Diet for Home: ADA Diet Patient Problems: diabetes mellitus hypokalemia urinary tract infection dementia weakness Goals for Patient: increased strength Patient Data-Allergies,Ht & Wt Patient Allergies: Coded Allergies: No Known Drug Allergies (Verified , 01/23/19) Height (Feet): 4 Height (Inches): 11.00 Weight (Pounds): 200 Weight (Ounces): 0.0 Home Health Need/Face to Face Date of Face to Face: Oct 15, 2020 Clinical Findings: Generalized weakness and fatigue, Muscle weakness, Unsteady gait I have seen Pt [id number]: Yes Discharged To: Home Diagnosis/Conditions: diabetes mellitus hypokalemia urinary tract infection dementia weakness Patient is Homebound due to: CognItive deficits, Muscle weakness Homebound Status Due to the above stated illness, injury or surgical procedure (medical condition or diagnosis) and associated clinical findings, the patient is homebound because of his/her inability to leave home except with aid of a supportive device and/or person AND leaving the home requires a considerable and taxing effort or is medically contraindicated. Pt req the following assistanc: Walker Home Health Nursing Orders Home Health Services Order: Nursing Services, Physical Therapy-Evaluate & Treat basic metabolic panel and magnesium levels on 10/17/2020 and 10/22/2020 set up meds, home safety eval Home Health Infusion Therapy Line Start Date: Oct 13, 2020 Therapy Orders Therapy Orders: PT to assess for OT Therapy Specific Orders: Eval assistive deivces, Teach enviro modifications/safety, Increase strength/endurance Certify Stmt I certify that this patient is under my care and that I, a nurse practitioner or a physician; a household personal assistant working with me, had a face to face encounter that - meets the physician face to face encounter requirements with this patient as dated. Medication List: Active Scripts Active Acidophilus Lactobacilli (Lactobacillus Acidophilus) 1 Each Capsule 1 Each PO TID 10 Days Augmentin 875-125 Tablet (Amoxicillin/Potassium Clav) 1 Each Tablet 1 Each PO BID Potassium Chloride 10 Meq Tab.er.prt 10 Meq PO BID Voltaren (Diclofenac Sodium) 100 Gm Gel..gram. 0 Gm TOP TID apply to left knee and other affected arthritic joints three times daily Humulin 70/30 Kwikpen (Insulin NPH Hum/Reg Insulin Hm) 100 Unit/1 Ml Insuln.pen 14 Unit SQ DAILY Lantus Solostar (Insulin Glargine,Hum.rec.anlog) 100 Unit/1 Ml Insuln.pen 18 Unit SQ HS Reported Folic Acid 1 Mg Tablet 1 Mg PO DAILY Levothyroxine Sodium 100 Mcg Tablet 100 Mcg PO DAILY Carvedilol 12.5 Mg Tablet 12.5 Mg PO BID Terazosin HCl 5 Mg Capsule 5 Mg PO DAILY Stool Softener (Docusate Sodium) 100 Mg Tablet 100 Mg PO EVERY OTHER DAY Aspir 81 (Aspirin) 81 Mg Tablet.dr 81 Mg PO DAILY Losartan Potassium 100 Mg Tablet 100 Mg PO DAILY Lab results: Laboratory Tests Test 10/14/20 11:13 10/14/20 15:39 10/14/20 20:11 10/15/20 05:35 Range/Units Glucometer 128 H 220 H 87 148 H 70-110 MG/DL My orders: Orders - DC VARGSA MD Cho 60g/M 3snack (16-2000 Malcolm) (10/14/20 Breakfast) Physical Therapy Order (10/14/20 10:31) Diclofenac 1% Gel (Voltaren 1% Gel) (10/14/20 10:45) [place] Worker Consult (10/14/20 10:31) Patient Visit (10/14/20 ) Pt Eval Low Complexity (10/14/20 ) Gait Training, Ea 15 Min (10/14/20 ) Losartan Tablet (Cozaar Tablet) (10/15/20 09:00) Losartan Tablet (Cozaar Tablet) (10/15/20 00:00) Carvedilol Tablet (Coreg Tablet) (10/15/20 08:00) Carvedilol Tablet (Coreg Tablet) (10/15/20 00:00) Attending Discharge Inpt/Inobs (10/15/20 09:17) DC VARGAS MD Oct 15, 2020 09:24
--- NOTE | 2020-10-15 09:26 | Discharge Summary ---
Diagnosis/Chief Complaint Date of Admission Oct 13, 2020 at 18:30 Date of Discharge Discharge Date: Oct 15, 2020 Discharge Time: 1000 Admission Diagnosis Admission Diagnosis HYPOGLYCEMIA HYPOKALEMIA HYPONATREMIA URINARY TRACT INFECTION ACUTE RENAL FAILURE DEMENTIA CONFUSION HTN HYPOTHYROIDISM Discharge Diagnosis E COLI URINARY TRACT INFECTION HYPOKALEMIA HYPOGYLCEMIA DIABETES MELLITUS WEAKNESS CONFUSION HYPERTENSION DEMENTIA FALLING EPISODE AT HOME HYPONATREMIA ACUTE RENAL FAILURE HYPOTHYROIDISM Reason Hospital Visit ADMITTED FOR URINARY TRACT INFECTION, HYPOGLYCEMIA, HYPONATREMIA Discharge Summary Discharge Physical Examination Allergies: Coded Allergies: No Known Drug Allergies (Verified , 01/23/19) Vitals & I&Os General Appearance: Alert, Cooperative, No Acute Distress, Other (ORIENTED TO PERSON) HEENT: Atraumatic, PERRLA, Mucous Memb Moist/[place] Respiratory: Clear to Auscultation, Normal Air Movement Cardiovascular: Regular Rate Abdominal: Normal Bowel Sounds, Soft, No Tenderness Extremities: No Clubbing, No Cyanosis Skin: No Rashes, No Breakdown Neuro: Normal Speech, Strength at 5/5 X4 Ext, Cranial Nerves 3-12 NL Psych/Mental Status: Mental Status NL, Other (FLAT AFFECT) Hospital Course E COLI URINARY TRACT INFECTION HYPOKALEMIA HYPOGYLCEMIA DIABETES MELLITUS WEAKNESS CONFUSION HYPERTENSION DEMENTIA FALLING EPISODE AT HOME HYPONATREMIA ACUTE RENAL FAILURE HYPOTHYROIDISM HYPOGLYCEMIA - IMPROVED ON ADMISSION - MONITOR FSBS HYPOKALEMIA WITH HYPONATREMIA - REPLENISH WITH IV FLUIDS, IV POTASSIUM, MONITOR LABS CLOSELY. URINARY TRACT INFECTION - IV ANTIBIOTICS - ROCEPHIN INITIATED IN ER, WILL MONITOR URINE CULTURE REPORT. - CHANGED TO ORAL ANTIBIOTICS ON DISCHARGE. ACUTE RENAL FAILURE - IMPROVED WITH HYDRATION DEMENTIA WITH ACUTE CONFUSION - SUPPORTIVE CARE. DISCUSSED WITH HER DTR - THEY WOULD LIKE TO CONSIDER ADMISSION TO ASSISTED LIVING ON DISCHARGE. - SHE WILL GO HOME WITH HOME HEALTH AND THEN FAMILY ADVISED THEY WILL WORK ON GETTING HER TO ASSISTED LIVING. HTN - RESUME HOME MEDS. HYPOTHYROIDISM - CHECK LABS - RESUME LEVOTHYROXINE Pending Labs Discharge Condition at discharge IMPROVED Instructions to patient/family Please see electronic discharge instructions given to patient. Discharge Medications Reviewed and agree with Discharge Medication list on patient's Discharge Instruction sheet DC VARGAS MD Oct 15, 2020 09:26
[2020-10-15] MEDS: DICLOFENAC 1% GEL 100 GM (VOLTAREN) TUBE TOP SCH (09:41)
[2020-10-15] MEDS: cefTRIAXone 1,000 MG/SWFI 10 ML IV PUSH IV SCH ×2 (11:53)
--- NOTE | 2020-10-15 12:09 | Physical Therapy Daily Note ---
PT Daily Note-Current Subjective Pt. up in recliner with supportive family in room. Agrees to Rx, wants to toilet while up Pain Location: No Pain Reported Mental Status Patient Orientation: Normal For Age Attachments: IV Transfers SCALE: Activities may be completed with or without assistive devices. 8-Xfthzhvgyf-sflztzj completes the activity by him/herself with no assistance from a helper. 5-Set-up or Clean-up Assistance-helper sets up or cleans up; patient completes activity. [place] assists only prior to or following the activity. 4-Supervision or Touching Assistance-helper provides verbal cues and/or touching/steadying and/or contact guard assistance as patient completes activity. Assistance may be provided throughout the activity or intermittently. 3-Partial/Moderate Assistance-helper does LESS THAN HALF the effort. [place] l ifts, holds or supports trunk or limbs, but provides less than half the effort. 2-Substantial/Maximal Assistance-helper does MORE THAN HALF the effort. [place] lifts or holds trunk or limbs and provides more than half the effort. 0-Xdpvmyovt-evtjyj does ALL the effort. Patient does none of the effort to complete the activity. Or, the assistance of 2 or more helpers is required for t he patient to complete the activity. If activity was not attempted, code reason: 7-Patient Refused. 9-Not Applicable-not attempted and the patient did not perform the activity before the current illness, exacerbation or injury. 10-Not Attempted due to Environmental Limitations-(lack of equipment, weather restraints, etc.). 88-Not Attempted due to Medical Conditions or Safety Concerns. Sit to Stand (QC): 5 SBA sit to stand from toilet and recliner Weight Bearing Full Weight Bearing Full Weight Bearing Gait Training Does the Patient Walk?: Yes Walk 150 ft (QC): 5 Gait Assistive Device: FWW 250 ft FWW slow, assist SBA and IV, no letha LOB, no c/o fatigue or SOB Exercises Seated Therapy Exercises: Ankle pumps, Sit to stand, Long arc quads, Hip flexion, Hip abd/add Seated Reps: 12 Treatments toileted SBA, managing all clean up and pants indep Assessment Current Status: Good Progress PT Short Term Goals Short Term Goals Time Frame: Oct 21, 2020 Sit to lyin Lying to sitting on side of be: 6 Sit to stand: 6 Walk 150 feet: 6 PT Plan Treatment/Plan Treatment Plan: Continue Plan of Care Treatment Plan: Bed Mobility, Concurrent Therapy, Education, Functional Activity Izabella, Functional Strength, Gait, Safety, Therapeutic Exercise, Transfers Treatment Duration: Oct 21, 2020 Frequency: 6 times per week Estimated Hrs Per Day: .25 hour per day Patient and/or Family Agrees t: Yes Safety Risks/Education Patient Education: Gait Training, Transfer Techniques, Correct Positioning, Safety Issues Teaching Recipient: Patient Teaching Methods: Demonstration, Discussion Response to Teaching: Verbalize Understanding, Return Demonstration Time/GCodes Time In: 950 Time Out: 1010 Total Billed Treatment Time: 20 Total Billed Treatment 1,GT20m TOBY PURCELL PTA Oct 15, 2020 12:09
[2020-10-15 13:07] VITALS: BP 153/54
== END 2020-10-15 09:17 | disposition home health service (06) ==
LOC: EDUNIT# 17:04 → ER 17:05 → 4TH 18:30 → UNDOADMIN 18:30 → 4TH 19:50 → UNDODISIN 10-15 13:56
PROVIDERS: ADMIT Family Medicine; ATTEND Family Medicine
DX: N39.0 Urinary tract infection, site not specified (principal); B96.20 Unspecified Escherichia coli [E. coli] as the cause of diseases classified elsewhere; E87.6 Hypokalemia; M19.90 Unspecified osteoarthritis, unspecified site; I10 Essential (primary) hypertension; E87.1 Hypo-osmolality and hyponatremia; N17.9 Acute kidney failure, unspecified; E11.649 Type 2 diabetes mellitus with hypoglycemia without coma; E03.9 Hypothyroidism, unspecified; F03.90 Unspecified dementia, unspecified severity, without behavioral disturbance, psychotic disturbance, mood disturbance, and anxiety; F41.9 Anxiety disorder, unspecified; Z79.4 Long term (current) use of insulin; Z92.21 Personal history of antineoplastic chemotherapy; Z85.038 Personal history of other malignant neoplasm of large intestine; Z79.82 Long term (current) use of aspirin; Z79.890 Hormone replacement therapy; Z90.89 Acquired absence of other organs; Z82.3 Family history of stroke
CPT/HCPCS: 71045; 80053 ×2; 81000; 82962 ×3; 83735 ×2; 84550; 85025; 85027; 87077; 87088; 87186; 93005; 96361; 96374; 96375; 97116 ×2; 97161; 99284; G0378; 36415

== ENCOUNTER → 2021-04-02 | Outpatient (CLI) | payer MEDICARE ==
[~2021-04-02] MED LIST changes: +AMOX-358 PO; +DICL100G18 TOP; +LACT1CAP87 PO; +POTA10TA36 PO
[2021-04-02 14:57] LABS: BASOPHILS % (AUTO) 0 % (0-10); EOSINOPHILS # (AUTO) 0.2 10^3/uL (0.0-0.3); EOSINOPHILS % (AUTO) 3 % (0-10); HEMATOCRIT 37 % (35-52); HEMOGLOBIN 11.5 g/dL (11.5-16.0); LYMPHOCYTES # (AUTO) 3.1 10^3/uL (1.0-4.0); LYMPHOCYTES % (AUTO) 38 % (12-44); MEAN CORPUSCULAR HEMOGLOBIN 29 pg (25-34); MEAN CORPUSCULAR HGB CONC 31 g/dL (32-36); MEAN CORPUSCULAR VOLUME 94 fL (80-99); MONOCYTES # (AUTO) 0.7 10^3/uL (0.0-1.0); MONOCYTES % (AUTO) 9 % (0-12); NEUTROPHILS # (AUTO) 4.1 10^3/uL (1.8-7.8); NEUTROPHILS % (AUTO) 50 % (42-75); PLATELET COUNT 173 10^3/uL (130-400); WHITE BLOOD COUNT 8.2 10^3/uL (4.3-11.0)
[2021-04-02 15:18] LABS: ALBUMIN 3.8 GM/DL (3.2-4.5); BILIRUBIN,TOTAL 0.5 MG/DL (0.1-1.0); CALCIUM 9.9 MG/DL (8.5-10.1); CREATININE SERUM 1.37 MG/DL (0.60-1.30); POTASSIUM 5.6 MMOL/L (3.6-5.0); TOTAL PROTEIN 7.2 GM/DL (6.4-8.2)
== END ==
LOC: ONC 14:39
PROVIDERS: ATTEND Internal Medicine Hematology & Oncology
DX: C18.2 Malignant neoplasm of ascending colon (principal); E11.22 Type 2 diabetes mellitus with diabetic chronic kidney disease; I12.9 Hypertensive chronic kidney disease with stage 1 through stage 4 chronic kidney disease, or unspecified chronic kidney disease; N18.30 Chronic kidney disease, stage 3 unspecified; Z90.49 Acquired absence of other specified parts of digestive tract; D63.1 Anemia in chronic kidney disease; E03.9 Hypothyroidism, unspecified; E66.01 Morbid (severe) obesity due to excess calories; E55.9 Vitamin D deficiency, unspecified; Z92.21 Personal history of antineoplastic chemotherapy
CPT/HCPCS: 80053; 82378; 85025; G0463; 99213

== ENCOUNTER → 2021-07-02 | Outpatient (CLI) | payer MEDICARE ==
[~2021-07-02] MED LIST changes: -POTA10TA36 PO; +POTA10TA37 PO
== END ==
LOC: ONC 15:01
PROVIDERS: ATTEND Internal Medicine Hematology & Oncology
DX: C18.2 Malignant neoplasm of ascending colon (principal); E11.22 Type 2 diabetes mellitus with diabetic chronic kidney disease; I12.9 Hypertensive chronic kidney disease with stage 1 through stage 4 chronic kidney disease, or unspecified chronic kidney disease; N18.30 Chronic kidney disease, stage 3 unspecified; D63.1 Anemia in chronic kidney disease; E66.01 Morbid (severe) obesity due to excess calories; E53.9 Vitamin B deficiency, unspecified; Z90.49 Acquired absence of other specified parts of digestive tract; Z92.21 Personal history of antineoplastic chemotherapy; Z98.890 Other specified postprocedural states
CPT/HCPCS: 82378